=== PATIENT | male | born 1955 | race Caucasian/White ===

== ENCOUNTER 2018-07-26 06:52 | Day surgery (SDC) | payer MEDICARE ==
[2018-07-24 11:49] VITALS: BMI 32.3
[~2018-07-26 06:52] MED LIST: LACTATED RINGERS 1,000 ML IV SCH
[2018-07-26 07:30] VITALS: TEMP 98.4
[2018-07-26 07:34] LABS: Glucose,Whole Blood 122 mg/dL (75-99)
[2018-07-26] MEDS ORDERED: PROPOFOL 10 MG/ML 20 ML VIAL IV ONE (07:48)
[2018-07-26 08:20] VITALS: RESP 18
--- NOTE | 2018-07-26 08:29 | P.PCN ---
Date of Procedure: 07/26/18 Procedure(s) Performed: procedure: Colonoscopy and polypectomy. Preoperative diagnosis: Positive cologuard test. postoperative diagnosis: 1. Sigmoid diverticulosis with no evidence of acute diverticulitis or strictures. 2. Small polyps snared but no large polyps or cancer. 3. Low-grade internal hemorrhoids without bleeding at the time of this exam. Preparation: HalfLytely prep. Sedation: Was provided by anesthesia Brief clinical history: The patient is 63-year-old male who was scheduled for this evaluation because of positive cologuard test. The patient has no abdominal complaints, over to bleeding or anemia. His last colonoscopy was around 15 years ago. Procedure: With the patient on his left lateral decubitus position and after informed consent and adequate sedation, the perianal area was inspected and it did not show any fissures or fistulas. There were no masses felt on digital rectal examination. The Olympus CFQ 160L video colonoscope was then inserted in the rectum in the usual fashion and advanced to the cecum. There were a few diverticular orifices seen scattered in the sigmoid but I saw no evidence of acute diverticulitis or strictures. 2 small polyps were seen, one in the proximal right colon and one in the distal sigmoid which were snared and retrieved by suction but there were no large polyps or cancer. I retroflexed the endoscope in the rectum before the endoscope was withdrawn. Low-grade internal hemorrhoids were noted with no evidence of bleeding. The patient tolerated the procedure well. Plan: The patient was reassured. Discussed dietary measures and local care for hemorrhoids. In the absence of upper GI complaints or anemia, I did not schedule at this time an upper endoscopy for the workup of his Hemoccult positive stools and this can be left as a contingency based on his course. I recommended repeat colonoscopy in 5 years. He will follow up with you as planned.
[2018-07-26 08:53] VITALS: BP 145/83; PULSE 68
== END 2018-07-26 09:21 | disposition home or self-care (01) ==
LOC: ORWHC2ENDO 06:52
DX: Z12.11 Encounter for screening for malignant neoplasm of colon (principal); K63.5 Polyp of colon; K57.30 Diverticulosis of large intestine without perforation or abscess without bleeding; K64.8 Other hemorrhoids; J45.909 Unspecified asthma, uncomplicated; I10 Essential (primary) hypertension; E11.9 Type 2 diabetes mellitus without complications; E78.5 Hyperlipidemia, unspecified; Z79.899 Other long term (current) drug therapy; Z79.891 Long term (current) use of opiate analgesic; Z79.84 Long term (current) use of oral hypoglycemic drugs; Z79.1 Long term (current) use of non-steroidal anti-inflammatories (NSAID); Z79.51 Long term (current) use of inhaled steroids
CPT/HCPCS: 88305; 45385; J2704

== ENCOUNTER 2019-01-13 01:54 | Emergency (ER) | payer MEDICARE ==
[2019-01-13 02:07] VITALS: RESP 20
[2019-01-13 02:19] LABS: Glucose,Whole Blood 341 mg/dL (75-99)
[2019-01-13] MEDS ORDERED: SODIUM CHLORIDE 0.9% 1,000 ML IV STA (02:58)
[2019-01-13 03:22] LABS: Appearance,Urine Clear (Clear); Bilirubin,Urine Negative (Negative); Blood,Urine Negative (Negative); Color,Urine Light Yellow; Glucose,Urine (UA) 4+ (Negative); Ketones,Urine Negative (Negative); Leukocyte Esterase,Urine Negative (Negative); Nitrite,Urine Negative (Negative); PH, Urine 5.5 (5.0-8.0); Protein,Urine Trace (Negative); Specific Gravity,Urine 1.028 (1.001-1.035); Urobilinogen,Urine <2.0 mg/dL (<2.0)
[2019-01-13 03:31] LABS: HCT 41.3 % (39.0-53.0); HGB 13.7 gm/dL (13.0-17.5); MCHC 33.2 g/dL (31.0-37.0); MCV 90.6 fL (80.0-100.0); Mean Platelet Volume 6.8; Platelet Count 160 k/uL (150-450); RBC 4.56 m/uL (4.30-5.90); RDW 13.2 % (11.5-15.5); WBC 6.4 k/uL (3.8-10.6)
--- NOTE | 2019-01-13 03:31 | ED ---
General Adult HPI - General Chief complaint: Recheck/Abnormal Lab/Rx Stated complaint: hyperglycemia Time Seen by Provider: 01/13/19 02:10 Source: EMS Mode of arrival: EMS Limitations: altered mental status - History of Present Illness Initial comments: Willie a 63-year-old gentleman with diabetes severe diabetic neuropathy who presents to the emergency department today for evaluation of generalized weakness and patient and his report that they had both taken her nighttime medications including his tramadol and Ambien, patient then decided that he needed to use the restroom. reports that she had just washed the rugs from the bathroom so she had left towel on the floor but noted that it was wet when he attended walking to the bathroom he lost his balance and fell forward onto his hands and feet. He did not hit his head he did not lose consciousness however she was not strong enough to get him back up so she called EMS or [facility]. [facility] reports that the patient was awake alert oriented with no signs of trauma however he had generalized weakness they did check his glucose and noted that it was over 400 and encouraged him to come to the ER for evaluation. Patient also notes that he's had a rash on the right side of his chest for a couple of weeks he thought it was due to by any sure that he may be ALLERGIC to however he does note that the rash is only on the right side of his chest and wrapping around to the right side of his back. - Related Data Home Medications Medication Instructions Recorded Confirmed Atorvastatin [Lipitor] 20 mg PO HS 07/24/18 07/26/18 Benazepril HCl [Lotensin] 40 mg PO HS 07/24/18 07/26/18 Fenofibrate 50 mg PO BID 07/24/18 07/26/18 Fluticasone/Salmeterol [Advair 1 inhalation PO BID PRN 07/24/18 07/26/18 250-50 Diskus] Ibuprofen 800 mg PO DAILY 07/24/18 07/26/18 Metoprolol Tartrate [Lopressor] 50 mg PO BID 07/24/18 07/26/18 amLODIPine [Norvasc] 10 mg PO DAILY 07/24/18 07/26/18 glipiZIDE [Glucotrol] 5 mg PO AC-BRKFST 07/24/18 07/26/18 metFORMIN HCL [Glucophage] 500 mg PO BID 07/24/18 07/26/18 traMADol HCL [Ultram] 50 mg PO DIRECTED PRN 07/24/18 07/26/18 Allergies Allergy/AdvReac Type Severity Reaction Status Date / Time Penicillins Allergy Unknown Verified 01/13/19 02:07 Review of Systems ROS Statement: Those systems with pertinent positive or pertinent negative responses have been documented in the HPI. ROS Other: All systems not noted in ROS Statement are negative. Past Medical History Past Medical History: Asthma, Diabetes Mellitus, Osteoarthritis (OA) Additional Past Medical History / Comment(s): HX OF BACK SURGERY WITH BACK PAIN, DIABETIC NEUROPATHY, HEART MURMUR., KERATOCONUS., STOOL TEST POSITIVE ., ECZEMA. History of Any Multi-Drug Resistant Organisms: None Reported Past Surgical History: Back Surgery Additional Past Surgical History / Comment(s): BACK SURGERY WITH DISC REMOVED AND FUSION., VASECTOMY, LEFT GREAT TOE. Past Anesthesia/Blood Transfusion Reactions: No Reported Reaction Past Psychological History: No Psychological Hx Reported Smoking Status: Former smoker Past Alcohol Use History: None Reported Past Drug Use History: None Reported - Past Family History Mother Family Medical History: No Reported History General Exam - General Exam Comments Initial Comments: Physical Exam GENERAL: Patient is well-developed and well-nourished. Patient is nontoxic and well-hydrated and is in no distress. Patient appears sleepy HENT: Normocephalic, Atraumatic. EYES: PERRL, EOMI PULMONARY: Unlabored respirations. No audible rales rhonchi or wheezing was noted. CARDIOVASCULAR: There is a regular rate and rhythm without any murmurs gallops or rubs. ABDOMEN: Soft and nontender with normal bowel sounds. SKIN: Rash on the right chest wrapping around to the right back in a dermatome pattern concerning for shingles. There are lesions in multiple stages of healing as well as open vesicles. : Deferred NEUROLOGIC: Patient is alert and oriented x3. Moving all extremities spontaneously MUSCULOSKELETAL: Normal extremities with adequate strength and full range of motion. No lower extremity swelling or edema. No calf tenderness. PSYCHIATRIC: Normal psychiatric evaluation. Limitations: no limitations Limitations: altered mental status Course Vital Signs 01/13/19 01/13/19 02:01 04:30 Temperature 98.2 F Pulse Rate 109 H 101 H Respiratory 20 20 Rate Blood Pressure 137/81 158/89 O2 Sat by Pulse 96 98 Oximetry EKG Findings - EKG Comments: EKG Findings:: EKG was obtained at 2:12 AM, rate is 107 rhythm is sinus tachycardia normal axis, normal interval, [place] 190, QRS 96 QTc 461 d elevations or depressions no evidence of acute ischemia or infarction Medical Decision Making - Medical Decision Making The patient was seen and evaluated history is obtained from the patient at bedside Patient had a mechanical trip and fall in the bathroom was unable to get up EMS found that the patient was hyperglycemic and encouraged him to come to the ER for evaluation Upon initial evaluation patient was mildly hyperglycemic he did receive IV fluids his glucose was improving Labs are otherwise patient's baseline is concerned that she will be able to get patient up the 2 stairs back into the house however patient was able to ambulate around the emergency department without difficulty I discussed with the that I can attempt to admit him for generalized weakness and poorly controlled diabetes however he will just be in our observation unit weekly for the day, at this time the patient would prefer to be discharged home is agreeable. Patient was able to get out of bed and get himself dressed without assistance. He is then placed in a wheelchair and wheeled to the waiting room, patient stated that he was starting to feel like his sugars were getting low despite not getting any treatment for his hyperglycemia and he chose to take 2 glucose tablets without sugar. I suspect that's the patient's generalized weakness and dehydration is due to his chronic hyperglycemia and poorly controlled diabetes. - Lab Data Result diagrams: 01/13/19 03:05 01/13/19 03:05 Lab Results 01/13/19 01/13/19 01/13/19 Range/Units 02:15 03:05 03:05 WBC 6.4 (3.8-10.6) k/uL RBC 4.56 (4.30-5.90) m/uL Hgb 13.7 (13.0-17.5) gm/dL Hct 41.3 (39.0-53.0) % MCV 90.6 (80.0-100.0) fL MCH 30.0 (25.0-35.0) pg MCHC 33.2 (31.0-37.0) g/dL RDW 13.2 (11.5-15.5) % Plt Count 160 (150-450) k/uL Neutrophils % (Manual) 62 % Lymphocytes % (Manual) 23 % Monocytes % (Manual) 15 % Neutrophils # (Manual) 3.97 (1.3-7.7) k/uL Lymphocytes # (Manual) 1.47 (1.0-4.8) k/uL Monocytes # (Manual) 0.96 (0-1.0) k/uL Nucleated RBCs 0 (0-0) /100 WBC Manual Slide Review Performed Reactive Lymphocytes Present Sodium 137 (137-145) mmol/L Potassium 4.0 (3.5-5.1) mmol/L Chloride 106 (98-107) mmol/L Carbon Dioxide 20 L (22-30) mmol/L Anion Gap 11 mmol/L BUN 25 H (9-20) mg/dL Creatinine 1.00 (0.66-1.25) mg/dL Est GFR (CKD-EPI)AfAm >90 (>60 ml/min/1.73 sqM) Est GFR (CKD-EPI)NonAf 79 (>60 ml/min/1.73 sqM) Glucose 297 H (74-99) mg/dL POC Glucose (mg/dL) 341 H (75-99) mg/dL POC Glu Sod Cutter ID Kiara Hallman Calcium 9.4 (8.4-10.2) mg/dL Total Bilirubin 0.7 (0.2-1.3) mg/dL AST 35 (17-59) U/L ALT 44 (21-72) U/L Alkaline Phosphatase 102 (38-126) U/L Total Protein 6.9 (6.3-8.2) g/dL Albumin 4.1 (3.5-5.0) g/dL Amylase 66 (30-110) U/L Lipase 137 (23-300) U/L Urine Color Urine Appearance (Clear) Urine pH (5.0-8.0) Ur Specific [place] (1.001-1.035) Urine Protein (Negative) Urine Glucose (UA) (Negative) Urine Ketones (Negative) Urine Blood (Negative) Urine Nitrite (Negative) Urine Bilirubin (Negative) Urine Urobilinogen (<2.0) mg/dL Ur Leukocyte Esterase (Negative) Acetone, Qual Negative (Negative) 01/13/19 01/13/19 Range/Units 03:05 05:03 WBC (3.8-10.6) k/uL RBC (4.30-5.90) m/uL Hgb (13.0-17.5) gm/dL Hct (39.0-53.0) % MCV (80.0-100.0) fL MCH (25.0-35.0) pg MCHC (31.0-37.0) g/dL RDW (11.5-15.5) % Plt Count (150-450) k/uL Neutrophils % (Manual) % Lymphocytes % (Manual) % Monocytes % (Manual) % Neutrophils # (Manual) (1.3-7.7) k/uL Lymphocytes # (Manual) (1.0-4.8) k/uL Monocytes # (Manual) (0-1.0) k/uL Nucleated RBCs (0-0) /100 WBC Manual Slide Review Reactive Lymphocytes Sodium (137-145) mmol/L Potassium (3.5-5.1) mmol/L Chloride (98-107) mmol/L Carbon Dioxide (22-30) mmol/L Anion Gap mmol/L BUN (9-20) mg/dL Creatinine (0.66-1.25) mg/dL Est GFR (CKD-EPI)AfAm (>60 ml/min/1.73 sqM) Est GFR (CKD-EPI)NonAf (>60 ml/min/1.73 sqM) Glucose (74-99) mg/dL POC Glucose (mg/dL) 312 H (75-99) mg/dL POC Glu Sod Cutter ID Preston, Liz Calcium (8.4-10.2) mg/dL Total Bilirubin (0.2-1.3) mg/dL AST (17-59) U/L ALT (21-72) U/L Alkaline Phosphatase (38-126) U/L Total Protein (6.3-8.2) g/dL Albumin (3.5-5.0) g/dL Amylase (30-110) U/L Lipase (23-300) U/L Urine Color Light Yellow Urine Appearance Clear (Clear) Urine pH 5.5 (5.0-8.0) Ur Specific [place] 1.028 (1.001-1.035) Urine Protein Trace H (Negative) Urine Glucose (UA) 4+ H (Negative) Urine Ketones Negative (Negative) Urine Blood Negative (Negative) Urine Nitrite Negative (Negative) Urine Bilirubin Negative (Negative) Urine Urobilinogen <2.0 (<2.0) mg/dL Ur Leukocyte Esterase Negative (Negative) Acetone, Qual (Negative) Disposition Clinical Impression: Hyperglycemia due to type 2 diabetes mellitus, Generalized weakness, Diabetic neuropathy, Fall at home Disposition: HOME SELF-CARE Condition: Stable Instructions (If sedation given, give patient instructions): Diabetic Peripheral Neuropathy (ED) Is patient prescribed a controlled substance at d/c from ED?: No Referrals: William Christine MD [Primary Care Provider] - 1-2 days
[2019-01-13 03:35] LABS: ALT 44 U/L (21-72); AST 35 U/L (17-59); Albumin 4.1 g/dL (3.5-5.0); Alkaline Phosphatase 102 U/L (38-126); Amylase 66 U/L (30-110); Anion Gap 11 mmol/L; Blood Urea Nitrogen 25 mg/dL (9-20); Calcium 9.4 mg/dL (8.4-10.2); Carbon Dioxide 20 mmol/L (22-30); Chloride 106 mmol/L (98-107); Glucose 297 mg/dL (74-99); Lipase 137 U/L (23-300); Sodium 137 mmol/L (137-145); Total Bilirubin 0.7 mg/dL (0.2-1.3); Total Protein 6.9 g/dL (6.3-8.2)
[2019-01-13 03:59] LABS: Lymphocytes # (M) 1.47 k/uL (1.0-4.8); Monocytes # (M) 0.96 k/uL (0-1.0); Neutrophils # (M) 3.97 k/uL (1.3-7.7); Neutrophils % (M) 62 %; Nucleated Red Blood Cells 0 /100 WBC (0-0); Reactive Lymphocytes Present; Total Cells Counted 100
[2019-01-13 05:09] LABS: Glucose,Whole Blood 312 mg/dL (75-99)
[2019-01-13 06:20] VITALS: BP 165/95; PULSE 73; TEMP 98.1
== END 2019-01-13 06:19 | disposition home or self-care (01) ==
LOC: EC 01:54
DX: E11.65 Type 2 diabetes mellitus with hyperglycemia (principal); E11.40 Type 2 diabetes mellitus with diabetic neuropathy, unspecified; R53.1 Weakness; R21 Rash and other nonspecific skin eruption; J45.909 Unspecified asthma, uncomplicated; M19.90 Unspecified osteoarthritis, unspecified site; Z87.891 Personal history of nicotine dependence; Z88.0 Allergy status to penicillin; Z79.1 Long term (current) use of non-steroidal anti-inflammatories (NSAID); Z79.84 Long term (current) use of oral hypoglycemic drugs; Z79.899 Other long term (current) drug therapy; Z98.1 Arthrodesis status; W01.0XXA Fall on same level from slipping, tripping and stumbling without subsequent striking against object, initial encounter; Y93.01 Activity, walking, marching and hiking; Y92.002 Bathroom of unspecified non-institutional (private) residence as the place of occurrence of the external cause
CPT/HCPCS: 36415; 80053; 81003; 82009; 82150; 83690; 85025; 93005; 96360; 96361; 99285

== ENCOUNTER 2022-08-12 23:58 | Inpatient (IN) | payer MEDICARE ==
[2022-08-13] MEDS ORDERED: NITROGLYCERIN SL TABS 0.4 MG TAB SUBLINGUAL PRN ×2 (00:08→02:50)
[2022-08-13] MEDS ORDERED: ASPIRIN 81 MG PO STA (00:08)
[2022-08-13] MEDS ORDERED: HEPARIN SODIUM 1,000 UN/ML (10ML VL) IV ONE ×2 (00:08→02:16)
[2022-08-13] MEDS ORDERED: MORPHINE SULFATE 4 MG/ML SYRINGE IV STA (00:12)
--- NOTE | 2022-08-13 00:12 | ED ---
Chest Pain HPI - General Stated Complaint: Difficulty Breathing Time Seen by Provider: 08/13/22 00:07 Source: patient, EMS Mode of arrival: EMS Limitations: altered mental status - History of Present Illness Initial Comments: This patient is a 67-year-old man who is brought by ambulance to have evaluation for shortness of breath. It is difficult to obtain history as the patient appears to be both severely dyspneic and may have some mild delirium. EMS reported that he had been having chest pains earlier then started to have shortness of breath. They report that on arrival the patient was severely dyspneic and could not give much other history. I am not able to get much history other than he is short of breath. Patient also was reportedly diaphoretic and cyanotic. By the time I saw the patient here he had been placed onto BiPAP. MD Complaint: chest pain, other (Dyspnea) -: unknown Consistency: constant Treatments Prior to Arrival: oxygen - Related Data Home Medications Medication Instructions Recorded Confirmed Metoprolol Tartrate [Lopressor] 50 mg PO BID 07/24/18 08/13/22 amLODIPine [Norvasc] 10 mg PO DAILY 07/24/18 08/13/22 glipiZIDE [Glucotrol] 5 mg PO AC-BRKFST 07/24/18 08/13/22 metFORMIN HCL [Glucophage] 500 mg PO BID 07/24/18 08/13/22 traMADol HCL [Ultram] 50 mg PO QID PRN 07/24/18 08/13/22 Atorvastatin [Lipitor] 40 mg PO DAILY 08/13/22 08/13/22 DULoxetine HCL [Cymbalta] 60 mg PO DAILY 08/13/22 08/13/22 Fenofibrate [Lofibra] 54 mg PO BID 08/13/22 08/13/22 traZODone HCL 100 mg PO HS 08/13/22 08/13/22 Allergies Allergy/AdvReac Type Severity Reaction Status Date / Time Penicillins Allergy Unknown Verified 08/13/22 14:15 Review of Systems ROS Statement: Those systems with pertinent positive or pertinent negative responses have been documented in the HPI. ROS Other: All systems not noted in ROS Statement are negative. Limitations: ROS unobtainable due to patients medical condition EKG Findings - EKG Results: EKG: interpreted by ERMKeely, sinus rhythm (Rate 68 bpm), normal axis - NE, Pacemaker, Normal: Myocardial infarction: inferior NE (acute or recent) Past Medical History Past Medical History: Asthma, Diabetes Mellitus, Osteoarthritis (OA) Additional Past Medical History / Comment(s): HX OF BACK SURGERY WITH BACK PAIN, DIABETIC NEUROPATHY, HEART MURMUR., KERATOCONUS., STOOL TEST POSITIVE ., ECZEMA. History of Any Multi-Drug Resistant Organisms: None Reported Past Surgical History: Back Surgery Additional Past Surgical History / Comment(s): BACK SURGERY WITH DISC REMOVED AND FUSION., VASECTOMY, LEFT GREAT TOE. Past Anesthesia/Blood Transfusion Reactions: No Reported Reaction Past Psychological History: No Psychological Hx Reported Past Alcohol Use History: None Reported Past Drug Use History: None Reported - Past Family History Mother Family Medical History: No Reported History General Exam Limitations: altered mental status General appearance: alert Head exam: Present: atraumatic, normocephalic Eye exam: Present: PERRL, EOMI. Absent: scleral icterus, conjunctival injection ENT exam: Present: mucous membranes dry Neck exam: Present: normal inspection, full ROM Respiratory exam: Present: respiratory distress (Tachypnea), rales, accessory muscle use. Absent: rhonchi, stridor, chest wall tenderness, decreased breath sounds Cardiovascular Exam: Present: regular rate, normal rhythm. Absent: systolic murmur, diastolic murmur, rubs, gallop GI/Abdominal exam: Present: soft. Absent: distended, tenderness, guarding, rebound, rigid, mass Extremities exam: Present: normal inspection, normal capillary refill. Absent: pedal edema, calf tenderness Back exam: Present: normal inspection Neurological exam: Present: alert. Absent: motor sensory deficit Skin exam: Present: intact, diaphoretic, mottled. Absent: rash Course Vital Signs 08/13/22 08/13/22 08/13/22 00:08 00:12 00:15 Pulse Rate 75 78 Respiratory 36 H 28 H Rate Blood Pressure 121/104 128/55 O2 Sat by Pulse 76 L 97 Oximetry Fraction of 100 70 Inspired Oxygen (FIO2) 08/13/22 08/13/22 00:23 00:40 Pulse Rate 71 Respiratory 32 H Rate Blood Pressure 122/66 O2 Sat by Pulse 96 Oximetry Fraction of 100 Inspired Oxygen (FIO2) - Reevaluation(s) Reevaluation #1: 11/12/22 00:10 I was given ECG showing ST elevation NE in the inferior leads with reciprocal changes lateral leads. Plastic Technician was activated. I have discussed case with Dr. Matthews who will see the patient. His treatment recommendations are incorporated. Procedures - Intubation Sedative: Etomidate Mg Given: 20 Paralytic: Succinylcholine Mg Given: 100 Laryngoscope: Veto Size: 3 ET Tube Size: 8 ET Tube Uncuffed: No Tube Secured Depth (cm): 22 Tube Secured Location: lips Tube Placement Confirmation: visualized tube passing through cords, equal breath sounds bilaterally, no breath sounds over epigastrium, confirmation by capnometry Patient Tolerated Procedure: well Intubation Complications: none Chest Pain MDM - MDM This patient is 67-year-old man brought by ambulance to have evaluation for severe dyspnea. We were not able to obtain actually any history due to the severe dyspnea and patient requiring BiPAP. The ECG on arrival shows acute ST elevation NE. The Plastic Technician was activated and Dr. Matthews saw the patient and was going to take him for heart cath procedure. The patient however still not stable in terms of his respiratory status. He did not appear to be able tolerate the procedure lying flat on BiPAP and therefore decision made to intubate patient. Please see the procedure note. Following intubation, patient taken directly to Plastic Technician. Case discussed with admitting physician and with vacuum tester cans. Critical Care Time Critical Care Time: Yes (35 minutes) Disposition Clinical Impression: STEMI (ST elevation myocardial infarction), Acute respiratory failure, Pulmonary edema, Acute kidney injury, Hyperglycemia Disposition: ADMITTED IP TO THIS HOSP Condition: Critical Is patient prescribed a controlled substance at d/c from ED?: No
[2022-08-13] MEDS ORDERED: VERAPAMIL SYRINGE (5 MG/10 ML) INTRAARTER ONE ×2 (00:16→01:16)
[2022-08-13 00:23] LABS: Basophils % (A) 0 %; Eosinophils % (A) 0 %; HCT 38.7 % (39.0-53.0); HGB 12.4 gm/dL (13.0-17.5); Hypochromasia Moderate; Lymphocytes # (A) 0.6 k/uL (1.0-4.8); Lymphocytes % (A) 4 %; MCH 30.8 pg (25.0-35.0); MCV 96.4 fL (80.0-100.0); Mean Platelet Volume 8.6; Monocytes # (A) 0.6 k/uL (0-1.0); Monocytes % (A) 4 %; Neutrophils # (A) 12.4 k/uL (1.3-7.7); Neutrophils % (A) 90 %; Platelet Count 369 k/uL (150-450); RBC 4.01 m/uL (4.30-5.90); RDW 13.4 % (11.5-15.5); WBC 13.8 k/uL (3.8-10.6)
--- NOTE | 2022-08-13 00:24 | XR ---
EXAMINATION TYPE: XR chest 1V portable DATE OF EXAM: 08/13/2022 COMPARISON: NONE HISTORY: Chest pain TECHNIQUE: Single view FINDINGS: There is pulmonary airspace edema which is worse on the right side. Heart is enlarged. Ther e are chest leads. No definite pleural effusion. IMPRESSION: Bilateral pulmonary edema which is much worse on the right side and could relate to RDS.
[2022-08-13] MEDS ORDERED: HEPARIN SODIUM 1,000 UN/ML (10ML VL) ONE ×2 (00:35→02:15)
[2022-08-13] MEDS ORDERED: VERAPAMIL 2.5 MG/ML 2 ML AMP ONE (00:38)
[2022-08-13 00:43] LABS: INR 1.1 (<1.2); Prothrombin Time 11.8 sec (9.0-12.0)
[2022-08-13 00:45] LABS: Partial Thromboplastin Time 21.8 sec (22.0-30.0)
--- NOTE | 2022-08-13 00:53 | P.CRDCN ---
History of Present Illness History of present illness: HISTORY OF PRESENTING ILLNESS Patient is a 63-year-old male with history of diabetic neuropathy, hypertension, hyperlipidemia, diabetes mellitus type 2, orthopedic issues who presents second allen to chest pain and shortness breath. Patient on examination tachypnic on BIPAP and appears be somewhat altered and some of history supplied by chart. Patient currently denying obvious chest pain and mainly states he started feeling short of breath. There was report however that this started with chest discomfort. He denies anything similar in the past. No history of prior CAD. Currently tachypnic and accessory muscle use. EKG shows sinus rhythm, minimal Q-wave lead 3, ST elevation inferiorly with reciprocal changes in the lateral leads, poor R-wave progression. Chest x-ray showing bilateral pulmonary edema somewhat worse on the right. Blood pressure on presentation and 121/104 and 76% on room air. His placed on BiPAP however not tolerating well and therefore decision was made by ER to intubate patient. REVIEW OF SYSTEMS At the time of my exam: CONSTITUTIONAL: Denies fever or chills. CARDIOVASCULAR: +chest pain, +shortness of breath, +orthopnea, no palpitations. RESPIRATORY: Denies cough. GASTROINTESTINAL: Denies abdominal pain, diarrhea, constipation, nausea or vomiting. MUSCULOSKELETAL: Denies myalgias. NEUROLOGIC: Denies numbness, tingling or weakness. ENDOCRINE: Denies fatigue, weight change, polydipsia or polyurina. GENITOURINARY: Denies burning, hematuria or urgency with micturation. HEMATOLOGIC: Denies history of anemia or bleeding. PHYSICAL EXAMINATION Vital signs reviewed. CONSTITUTIONAL: No apparent distress. HEENT: Head is normocephalic. Pupils are equal, round. Sclerae anicteric. Mucous membranes of the mouth are moist. No JVD. No carotid bruit. CHEST EXAMINATION: +Bilateral crackles HEART EXAMINATION: Regular rate and rhythm. S1, S2 heard. No murmurs, gallops or rub. ABDOMEN: Soft, nontender. Positive bowel sounds. EXTREMITIES: 2+ peripheral pulses, no lower extremity edema and no calf tenderness. NEUROLOGIC EXAMINATION: Patient is awake, alert and oriented x3. ASSESSMENT 1. Inferior STEMI 2. Acute on chronic respiratory failure related to heart failure 3. Acute on chronic heart failure, unclear systolic versus diastolic 4. Diabetes mellitus type 2 5. Hypertension PLAN Agree with intubation of patient as he currently is very active tachypnic with accessory muscle use. Discussed recommendations for heart catheterization and patient is agreeable. Check 2-D echo. Diuresis as able. Further recommendations to follow. Past Medical History Past Medical History: Asthma, Diabetes Mellitus, Osteoarthritis (OA) Additional Past Medical History / Comment(s): HX OF BACK SURGERY WITH BACK PAIN, DIABETIC NEUROPATHY, HEART MURMUR., KERATOCONUS., STOOL TEST POSITIVE ., ECZEMA. History of Any Multi-Drug Resistant Organisms: None Reported Past Surgical History: Back Surgery Additional Past Surgical History / Comment(s): BACK SURGERY WITH DISC REMOVED AND FUSION., VASECTOMY, LEFT GREAT TOE. Past Anesthesia/Blood Transfusion Reactions: No Reported Reaction Past Psychological History: No Psychological Hx Reported Past Alcohol Use History: None Reported Past Drug Use History: None Reported - Past Family History Mother Family Medical History: No Reported History Medications and Allergies Home Medications Medication Instructions Recorded Confirmed Type Atorvastatin [Lipitor] 20 mg PO HS 07/24/18 07/26/18 History Benazepril HCl [Lotensin] 40 mg PO HS 07/24/18 07/26/18 History Fenofibrate 50 mg PO BID 07/24/18 07/26/18 History Fluticasone Propion/Salmeterol 1 inhalation PO BID PRN 07/24/18 07/26/18 History [Advair 250-50 Diskus] Ibuprofen 800 mg PO DAILY 07/24/18 07/26/18 History Metoprolol Tartrate [Lopressor] 50 mg PO BID 07/24/18 07/26/18 History amLODIPine [Norvasc] 10 mg PO DAILY 07/24/18 07/26/18 History glipiZIDE [Glucotrol] 5 mg PO AC-BRKFST 07/24/18 07/26/18 History metFORMIN HCL [Glucophage] 500 mg PO BID 07/24/18 07/26/18 History traMADol HCL [Ultram] 50 mg PO DIRECTED PRN 07/24/18 07/26/18 History Allergies Allergy/AdvReac Type Severity Reaction Status Date / Time Penicillins Allergy Unknown Verified 01/13/19 02:07 Physical Exam Vitals: Vital Signs Pulse Resp BP Pulse Ox FiO2 08/13/22 00:23 71 32 H 122/66 96 08/13/22 00:15 70 08/13/22 00:12 78 28 H 128/55 97 100 08/13/22 00:11 100 08/13/22 00:08 75 36 H 121/104 76 L Intake and Output 08/12/22 08/12/22 08/13/22 14:59 22:59 06:59 Other: Weight 100.924 kg Results 08/13/22 00:11 CBC 08/13/22 Range/Units 00:11 WBC 13.8 H (3.8-10.6) k/uL RBC 4.01 L (4.30-5.90) m/uL Hgb 12.4 L (13.0-17.5) gm/dL Hct 38.7 L (39.0-53.0) % Plt Count 369 (150-450) k/uL Current Medications Generic Name Dose Route Start Last Admin Trade Name Freq PRN Reason Stop Dose Admin Nitroglycerin 0.4 mg 08/13/22 00:08 Nitroglycerin Sl Tabs 0.4 Mg Tab SUBLINGUAL Q5M PRN Chest Pain Intake and Output 08/12/22 08/12/22 08/13/22 14:59 22:59 06:59 Other: Weight 100.924 kg Patient Weight 08/13/22 06:59 Weight 100.924 kg 08/13/22 00:11
--- NOTE | 2022-08-13 01:00 | XR ---
EXAMINATION TYPE: XR chest 1V [facility] DATE OF EXAM: 08/13/2022 COMPARISON: Today HISTORY: Respiratory failure TECHNIQUE: Single view FINDINGS: There is endotracheal tube 2 cm from the patrick. There is nasogastric tube in the stomach. There is moderate pulmonary airspace edema. IMPRESSION: Tubing in good position. Pulmonary edema is more severe on the right side and slightly wo rse than exam 30 minutes ago.
[2022-08-13 01:07] LABS: Albumin 3.8 g/dL (3.5-5.0); Potassium 3.8 mmol/L (3.5-5.1); Total Bilirubin 1.1 mg/dL (0.2-1.3); Total Protein 6.5 g/dL (6.3-8.2)
[2022-08-13] MEDS ORDERED: fentaNYL (PF) 50 MCG/ML 2 ML AMP ONE ×2 (01:08→01:41)
[2022-08-13] MEDS ORDERED: LIDOCAINE 1% INJ 10MG/ML (30 ML VIAL-PF) SQ ONE (01:10)
[2022-08-13] MEDS ORDERED: IV FLUID CONTINUATION 1,000 ML IV ONE (01:10)
[2022-08-13] MEDS ORDERED: MIDAZOLAM 2 MG/2 ML VIAL IV ONE (01:10)
[2022-08-13] MEDS: fentaNYL (PF) 50 MCG/ML 2 ML AMP IV ONE ×2 (01:10→01:24)
[2022-08-13] MEDS ORDERED: FUROSEMIDE 10 MG/ML 4 ML VIAL ONE (01:10)
[2022-08-13] MEDS ORDERED: FUROSEMIDE 10 MG/ML 4 ML VIAL IV ONE ×2 (01:10→01:12)
[2022-08-13] MEDS: HEPARIN SODIUM 1,000 UN/ML (10ML VL) IV ONE ×4 (01:18→02:01)
[2022-08-13] MEDS: MIDAZOLAM 2 MG/2 ML VIAL IV ONE ×2 (01:18→01:35)
[2022-08-13] MEDS ORDERED: TIROFIBAN 12.5MG-250ML NS 250 ML IV ONE (01:22)
[2022-08-13] MEDS ORDERED: fentaNYL (PF) 50 MCG/ML 2 ML AMP IV ONE (01:41)
[2022-08-13] MEDS ORDERED: IOPAMIDOL-370 125ML BTL INJ ONE (01:42)
[2022-08-13] MEDS ORDERED: TICAGRELOR 90 MG TAB ONE (01:42)
[2022-08-13] MEDS ORDERED: NALOXONE 0.4 MG/ML 1 ML VIAL IV PRN (01:43)
[2022-08-13] MEDS ORDERED: TICAGRELOR 90 MG TAB OG-TUBE ONE (02:00)
[2022-08-13] MEDS ORDERED: niCARdipine 25 MG/10 ML VIAL ONE (02:01)
[2022-08-13] MEDS ORDERED: INSULIN ASPART (NovoLOG) 100 UNIT/ML VIAL SQ STA (02:15)
[2022-08-13 02:26] LABS: ABG Base Excess -12.2 mmol/L; ABG HCO3 15 mmol/L (21-25); ABG Oxygen Saturation 82.9 % (94-97); ABG PCO2 37 mmHg (35-45); ABG PH 7.23 (7.35-7.45); ABG TCO2 17 mmol/L (19-24); Allen Test Performed? Yes
[2022-08-13] MEDS ORDERED: IOPAMIDOL-370 100ML BTL INJ ONE (02:31)
[2022-08-13] MEDS ORDERED: HEPARIN SOD,PORK IN 0.45% NACL 25,000 UNIT in 0.45% NACL 1 250ML.BAG IV ONE (02:34)
[2022-08-13] MEDS ORDERED: ZOLPIDEM 5 MG TAB PO PRN (02:50)
[2022-08-13] MEDS ORDERED: MAG HYDROX/AL HYDROX/SIMETH 30 ML CUP PO PRN (02:50)
[2022-08-13] MEDS ORDERED: ATROPINE SULFATE 0.1 MG/ML 10ML SYRINGE IV PRN (02:50)
[2022-08-13] MEDS ORDERED: RX INFO: IV CONTRAST WAS GIVEN 1 EACH MISC MISCELLANE PRN (02:50)
--- NOTE | 2022-08-13 02:50 | P.PRCINT ---
Percutaneous Coronary Int. - Percutaneous Coronary Intervention Percutaneous Coronary Intervention: PROCEDURES PERFORMED: Left heart catheterization, bilateral coronary angiography, aspiration thrombectomy with Penumbra, PCI mid RCA with 3.0 x 38mm Xience SHAHBAZ, post dilated with a 3.5NC balloon, balloon angioplasty PDA with 2.5 balloon, IVUS INDICATION: Inferior STEMI HISTORY: Patient is pleasant 67-year-old male with history of diabetes mellitus who presented with chest pain and shortness breath and was found to have inferior STEMI. He did have increased work of breathing and therefore underwent intubation in the ER. CONSENT:I have discussed the risks, benefits and alternative therapies for the above-mentioned procedure and for both sedation/analgesia as well as necessary blood product administration, if indicated, as they pertain to this patient. The patient has indicated understanding and acceptance of the risks and procedures discussed. PROCEDURE: After the risks, benefits and alternatives of the above mentioned procedure explained in detail with the patient, informed consent was obtained. Patient was taken to the catheterization lab and prepped and draped in usual fashion. 1% lidocaine was used to anesthetize the right radial artery. A 6- Mexican sheath was placed in the right radial artery using modified Seldinger technique. Left coronary angiography was performed with a 5-Mexican JL 3.5 catheter. The decision was made to perform PCI of the RCA. A 6-Mexican AL 0.75 guide was used to engage RCA. A 0.014 whisper wire was advanced into the PDA. Predilation was performed with a 2.5 then 3.0 balloon. There was large amount of thrombus burden and therefore Penumbra aspiration thrombectomy was performed. IVUS showed diffuse more mid to distal disease and therefore a 3.0 x 38mm Xience SHAHBAZ was placed in the mid to distal RCA. There was still no reflow of the mid PDA which appeared related to thrombus. IV Aggrastat was started. Intracoronary Nicardipine was given for no reflow. The proximal portion of the stent was post dilated with a 3.5 NC balloon. There was still no reflow of the proximal PDA which appeared related to thrombus and therefore gentle inflations were performed with 2.5 balloon. Repeat IVUS showed well expanded stent, well sized, no dissection and IVUS brought down to proximal PDA with what appeared to be thrombus. Lab results were obtained with CKD and decision was made to abort further attempts at PCI distal PDA given further risk of RASHMI. The wire was pulled and final angiograms were performed. Preintervention there was 100% stenosis and ROSALIO 0 flow. Post intervention there was <10% stenosis with ROSALIO 3 flow of RCA and no reflow of distal PDA. A 5-Mexican FR4 catheter was inserted into the left ventricle and pressure measurements were obtained. The right radial sheath was removed and a TR band was placed with hemostasis achieved. The patient tolerated the procedure well. Patient was transported back to the post catheterization holding area in stable condition. Conscious Sedation: Patient was monitored under the direct supervision of vision of myself for conscious sedation using Versed and fentanyl for a total duration of 75 minutes HEMODYNAMICS: Ao: 90/51 LV: 160/8, LVEDP 22mmHg. Peak to peak gradient of approximately 60mmHg SELECTIVE CORONARY ARTERIOGRAPHY: LEFT MAIN: The left main is a large caliber vessel which bifurcates into the LAD and circumflex. There is mild 10-20% left main stenosis. LEFT ANTERIOR DESCENDING CORONARY ARTERY: LAD is a large caliber vessel which wraps around to the apex. There is diffuse mild 10-30% stenosis. LEFT CIRCUMFLEX CORONARY ARTERY: Left circumflex is a moderate caliber vessel with mild luminal irregularities. RIGHT CORONARY ARTERY: The right coronary artery is a large caliber vessel which gives off a PDA and PLV branch and is the dominant vessel. There is diffuse mild 10-20% stenosis. There is a mid RCA 100% stenosis with large amount of thrombus burden. FINAL IMPRESSION: 1. CAD as described above with 10-30% LAD stenosis, 100% mid RCA stenosis 2. S/p PCI mid RCA with 3.0 x 38mm Xience SHAHBAZ, post dilated with a 3.5NC balloon 3. Elevated left sided filling pressures 4. At least moderate to severe aortic stenosis with peak to peak gradient of 60mmHg PLAN: 1. Aggressive risk factor modification per most recent ACC/AHA guidelines. 2. Continue dual antiplatelets for 12 months with aspirin and Brillinta 3. Check 2D echo to evaluate degree of aortic stenosis
[2022-08-13] MEDS ORDERED: HEPARIN SODIUM 1,000 UN/ML (10ML VL) IV PRN (02:56)
[2022-08-13 02:59] LABS: Glucose,Whole Blood >600 mg/dL (70-110)
[2022-08-13 03:03] LABS: ABG PO2 53 mmHg (83-108)
[2022-08-13] MEDS ORDERED: INSULIN REGULAR BOLUS (FROM DRIP BAG) IV ONE (03:31)
[2022-08-13] MEDS ORDERED: Potassium Replacement Protocol 1 EACH MISC MISCELLANE PRN ×2 (03:31→16:39)
[2022-08-13] MEDS ORDERED: Magnesium Replacement Protocol 1 EACH MISC MISCELLANE PRN (03:31)
[2022-08-13] MEDS: HEPARIN SOD,PORK IN 0.45% NACL 25,000 UNIT in 0.45% NACL 1 250ML.BAG IV SCH (03:41)
[2022-08-13 03:47] LABS: Appearance,Urine Cloudy (Clear); Bilirubin,Urine Negative (Negative); Blood,Urine Negative (Negative); Cellular Casts,Urine 5 /lpf (0); Color,Urine Yellow; Glucose,Urine (UA) 4+ (Negative); Hyaline Casts,Urine 12 /lpf (0-2); Ketones,Urine Trace (Negative); Leukocyte Esterase,Urine Negative (Negative); Nitrite,Urine Negative (Negative); Protein,Urine Trace (Negative); RBC,Urine <1 /hpf (0-5); Specific Gravity,Urine 1.025 (1.001-1.035); Urobilinogen,Urine <2.0 mg/dL (<2.0); WBC,Urine 6 /hpf (0-5)
[2022-08-13] MEDS: INSULIN REGULAR 100 UNIT in SODIUM CHLORIDE 0.9% 100 ML IV SCH ×2 (03:52→10:13)
[2022-08-13 03:54] LABS: Basophils % (A) 0 %; Eosinophils % (A) 0 %; HCT 35.5 % (39.0-53.0); HGB 11.2 gm/dL (13.0-17.5); Hypochromasia Marked; Lymphocytes # (A) 0.5 k/uL (1.0-4.8); Lymphocytes % (A) 4 %; MCH 31.1 pg (25.0-35.0); MCHC 31.6 g/dL (31.0-37.0); MCV 98.6 fL (80.0-100.0); Mean Platelet Volume 7.8; Monocytes # (A) 0.5 k/uL (0-1.0); Monocytes % (A) 4 %; Neutrophils # (A) 11.7 k/uL (1.3-7.7); Neutrophils % (A) 91 %; Platelet Count 356 k/uL (150-450); RDW 13.1 % (11.5-15.5); WBC 12.9 k/uL (3.8-10.6)
[2022-08-13] MEDS ORDERED: TIROFIBAN 12.5MG-250ML NS 250 ML IV SCH (04:00)
[2022-08-13] MEDS ORDERED: ACETAMINOPHEN SUPPOSITORY 650 MG SUPP RECTAL PRN (04:00)
--- NOTE | 2022-08-13 04:13 | XR ---
EXAMINATION TYPE: XR chest 1V DATE OF EXAM: 08/13/2022 COMPARISON: Today HISTORY: Tube placement TECHNIQUE: Single view FINDINGS: Endotracheal tube is 3 cm from the patrick. There is bilateral pulmonary airspace edema that is much worse on the right side. Nasogastric tube is in the stomach. There are chest leads. IMPRESSION: Pulmonary edema. Could be RDS and not significantly different than exam 3 hours ago.
--- NOTE | 2022-08-13 04:18 | P.HPIM ---
History of Present Illness H&P Date: 08/13/22 Chief Complaint: chest pain , difficulty breathing 67 year old male with DM, hypertension patient unable to provide any history . patient was brought in by EMS due to chest pain and trouble breathing, he was placed on BIpap upon arrival , however, he deteriorated quickly with worsening breathing effort and was intubated in the ED. 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 History of Any Multi-Drug Resistant Organisms: None Reported Past Surgical History: Back Surgery Additional Past Surgical History / Comment(s): BACK SURGERY WITH DISC REMOVED AND FUSION., VASECTOMY, LEFT GREAT TOE. Past Anesthesia/Blood Transfusion Reactions: No Reported Reaction Past Psychological History: No Psychological Hx Reported Past Alcohol Use History: None Reported Past Drug Use History: None Reported - Past Family History Mother Family Medical History: No Reported History, Unable to Obtain Medications and Allergies Home Medications Medication Instructions Recorded Confirmed Type Atorvastatin [Lipitor] 20 mg PO HS 07/24/18 07/26/18 History Benazepril HCl [Lotensin] 40 mg PO HS 07/24/18 07/26/18 History Fenofibrate 50 mg PO BID 07/24/18 07/26/18 History Fluticasone Propion/Salmeterol 1 inhalation PO BID PRN 07/24/18 07/26/18 History [Advair 250-50 Diskus] Ibuprofen 800 mg PO DAILY 07/24/18 07/26/18 History Metoprolol Tartrate [Lopressor] 50 mg PO BID 07/24/18 07/26/18 History amLODIPine [Norvasc] 10 mg PO DAILY 07/24/18 07/26/18 History glipiZIDE [Glucotrol] 5 mg PO AC-BRKFST 07/24/18 07/26/18 History metFORMIN HCL [Glucophage] 500 mg PO BID 07/24/18 07/26/18 History traMADol HCL [Ultram] 50 mg PO DIRECTED PRN 07/24/18 07/26/18 History Allergies Allergy/AdvReac Type Severity Reaction Status Date / Time Penicillins Allergy Unknown Verified 01/13/19 02:07 Physical Exam Vitals: Vital Signs Pulse Resp BP Pulse Ox FiO2 08/13/22 00:49 100 08/13/22 00:23 71 32 H 122/66 96 08/13/22 00:15 70 08/13/22 00:12 78 28 H 128/55 97 100 08/13/22 00:08 75 36 H 121/104 76 L Intake and Output 08/12/22 08/12/22 08/13/22 14:59 22:59 06:59 Other: Weight 100.924 kg Constitutional: intubated due to difficulty in breathing Eyes: Anicteric sclerae, moist conjunctiva, Pupils equal round reactive to light ENMT: NC/AT Neck: Supple, no masses, or JVD No carotid bruits No thyromegaly Lungs: diffuse crackles Clear to percussion intubated on mechanical vent Cardiovascular: Heart regular in rate and rhythm, No murmurs, gallops, or rubs No peripheral edema Abdominal: Soft Nontender, no guarding, rebound or rigidity Abdomen moving with respiration Normoactive bowel sounds No hepatomegaly, No splenomegaly No palpable mass No abdominal wall hernia noted Skin: Normal temperature, tone, texture, turgor Extremities: No digital cyanosis No clubbing Pedal pulses intact and symmetrical Radial pulses intact and symmetrical No calf tenderness Psychiatric: intubated on vent support Neuro unable to assess , patient intubated Lymphatics: no palpable cervical or supraclavicular lymph nodes Results CBC & Chem 7: 08/13/22 03:46 08/13/22 00:11 Labs: Abnormal Lab Results - Last 24 Hours (Table) 08/13/22 08/13/22 Range/Units 00:11 00:11 WBC 13.8 H (3.8-10.6) k/uL RBC 4.01 L (4.30-5.90) m/uL Hgb 12.4 L (13.0-17.5) gm/dL Hct 38.7 L (39.0-53.0) % Neutrophils # 12.4 H (1.3-7.7) k/uL Lymphocytes # 0.6 L (1.0-4.8) k/uL APTT 21.8 L (22.0-30.0) sec Assessment and Plan Assessment: acute hypoxic respiratory failure STEMI , inferior suspected DKA (pending acetone ) patient will be taken to the concrete mixing 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
[2022-08-13 04:25] LABS: INR 1.2 (<1.2)
[2022-08-13 04:29] LABS: Partial Thromboplastin Time >200.0 sec (22.0-30.0)
[2022-08-13 04:56] LABS: Glucose,Whole Blood >600 mg/dL (70-110)
[2022-08-13] MEDS ORDERED: INSULIN ASPART (NovoLOG) 100 UNIT/ML VIAL SQ SCH (06:00)
[2022-08-13 06:05] LABS: ABG Base Excess -7.5 mmol/L; ABG HCO3 19 mmol/L (21-25); ABG Oxygen Saturation 97.3 % (94-97); ABG PCO2 39 mmHg (35-45); ABG PO2 102 mmHg (83-108); ABG TCO2 20 mmol/L (19-24); Allen Test Performed? Yes
[2022-08-13 06:05] LABS: Glucose,Whole Blood 510 mg/dL (70-110)
[2022-08-13 06:11] LABS: African American GFR (CKD) 34 (>60 ml/min/1.73 sqM); Anion Gap 20 mmol/L; Blood Urea Nitrogen 59 mg/dL (9-20); Calcium 8.5 mg/dL (8.4-10.2); Carbon Dioxide 12 mmol/L (22-30); Chloride 100 mmol/L (98-107); Magnesium 2.2 mg/dL (1.6-2.3); Non-African American GFR(CKD) 30 (>60 ml/min/1.73 sqM); Phosphorus 5.7 mg/dL (2.5-4.5); Potassium 4.1 mmol/L (3.5-5.1); Sodium 132 mmol/L (137-145)
[2022-08-13 06:19] LABS: Glucose 636 mg/dL (74-99)
[2022-08-13 07:02] LABS: Glucose,Whole Blood 452 mg/dL (70-110)
[2022-08-13] MEDS ORDERED: NOREPINEPHRIN 4 MG-0.9% NS PMX 4 MG/250 ML ML IV ONE (07:33)
[2022-08-13 07:56] LABS: Glucose,Whole Blood 374 mg/dL (70-110)
[2022-08-13] MEDS ORDERED: CISATRACURIUM 2 MG/ML 5 ML VIAL IV ONE (09:19)
[2022-08-13] MEDS: CLINDAMYCIN 600 MG in DEXTROSE 5% IN WATER 50 ML IVPB SCH ×6 (10:12→23:51)
[2022-08-13] MEDS: NOREPINEPHRINE 8 MG in SODIUM CHLORIDE 0.9% 250 ML IV SCH (10:13)
[2022-08-13] MEDS: CISATRACURIUM 200 MG in SODIUM CHLORIDE 0.9% 180 ML IV SCH (10:15)
[2022-08-13 10:20] LABS: Glucose,Whole Blood 225 mg/dL (70-110)
[2022-08-13 10:39] LABS: Potassium 3.1 mmol/L (3.5-5.1)
[2022-08-13] MEDS: ASPIRIN 81 MG PO SCH (10:39)
[2022-08-13] MEDS: TICAGRELOR 90 MG TAB PO SCH ×2 (10:39→20:29)
[2022-08-13] MEDS: FUROSEMIDE 10 MG/ML 4 ML VIAL IV SCH ×2 (10:39→17:38)
[2022-08-13] MEDS: CHLORHEXIDINE GLUCONATE 15 ML CUP MUCOUS MEM SCH ×2 (10:40→20:29)
[2022-08-13] MEDS: ARTIFICIAL TEARS-HYPROMELLOSE DROPS 15 ML BTL BOTH EYES SCH ×4 (10:41→23:51)
[2022-08-13 11:01] LABS: Glucose,Whole Blood 177 mg/dL (70-110)
--- NOTE | 2022-08-13 11:16 | P.PN ---
Subjective Progress Note Date: 08/13/22 (delayed charting seen at 0800) Patient is a 63-year-old male with history of diabetes mellitus type 2, azg-icmtmet-hbeoftutw with neuropathy, asthma, and osteoarthritis who presented to the emergency department with chest pain and shortness of breath. In the ER he underwent an extensive evaluation. He required BiPAP secondary to tachypnea. An EKG was obtained in the emergency department which shows ST segment elevation inferior with reciprocal changes and poor R-wave progression. Patient needed to have worsening respiratory distress and required intubation in the ER. He was emergently taken to laboratory secretary and had PCI performed to the RCA. He did not have return of flow to the PDA despite thrombectomy and cardiology recommended an additional 12 hours of Aggrastat and heparin for 24. He was found to have diffuse edema on his chest x-ray on vent settings are consistent with ARDS. Initial laboratory analysis also demonstrated hyperglycemia with a blood sugar of 636, patient was acetone positive and therefore diagnosed with DKA. Due to his vent settings and diffuse pulmonary edema he was started on an insulin drip but was not provided with fluid resuscitation as was requiring a PEEP of 14 and an FiO2 of 100% on the vent. Patient seen and examined at bedside. He is sedated on the vent and is unresponsive. Overnight events as above. General: :, no distress, appears at stated age Derm: warm, dry Head: atraumatic, normocephalic, symmetric Eyes: PERRL, no lid lesion anicteric sclera Mouth: no lip lesion, mucus membranes moist Cardiovascular: S1S2 irreg, no murmur, positive posterior tibial pulse bilateral, Lungs: Course bs bilateral, no rhonchi, no rales , no accessory muscle use Abdominal: soft, nontender to palpation, no guarding, no appreciable organomeg daria Ext: no gross muscle atrophy, no edema, no contractures Neuro: breathing over vent, + cough, PERRL Psych: sedated on vent Assessment/plan: Acute inferior ST segment elevated myocardial infarction Moderate to severe aortic stenosis Cardiogenic shock ARDS with diffuse pulmonary edema likely secondary to cardiogenic shock -Cardiology recommendations. Continue with aspirin, Brillenta, Lipitor Aggrastat for 12 hours and heparin for 24 hours - await echo - continue wtih levo, wean as able - await pulm recs DKA, diabetes mellitus type 2 with neuropathy -Continue with insulin infusion -IV fluids currently contraindicated secondary to vent settings with a PEEP of 14 and FiO2 of 100% -Continue with DKA protocol. Discussed with nursing monitoring closely with insulin drip as typically we use IV fluids help bring the patient's blood sugar down and the insulin drip to help correct acidosis. - hold metformin and gluctrol Chronic: Asthma OA Eczema DVT prophylaxis: heparin gtt Discussed with: nursing Anticipated discharge: pending clinical course Anticipated discharge place: pending clinical course A total of 45 minutes was spent on the care of this complex patient more than 50% of the time was spent in counseling and care coordination. Objective - Vital Signs Vital signs: Vital Signs Temp 96.1 F L 08/13/22 05:00 Pulse 76 08/13/22 07:10 Resp 23 08/13/22 07:10 BP 86/55 08/13/22 07:10 Pulse Ox 97 08/13/22 07:10 FiO2 80 08/13/22 08:00 Intake & Output 08/12/22 08/13/22 08/13/22 18:59 06:59 18:59 Intake Total 1055.526 282.527 Output Total 507 88 Balance 548.526 194.527 Weight 101.5 kg Intake: IV 957 100 0.9 KVO 80 100 Intake, IV Titration 98.526 182.527 Amount Clindamycin 600 mg In 50 Dextrose 5% in Water 50 ml @ 50 mls/hr IVPB Q8HR JUANA Rx#:[id number] Heparin Sod,Pork in 0.45% 12.8 NaCl 25,000 unit In 0.45 % NaCl 1 250ml.bag @ 9.91 UNITS/KG/HR 10.002 mls/ hr IV .Q24H JUANA Rx#: [id number] Insulin Regular 100 unit 24.166 55.083 In Sodium Chloride 0.9% 100 ml @ 0.1 UNITS/KG/HR 10.193 mls/hr IV .Q9H55M JUANA Rx#:[id number] propofoL 1,000 mg In 61.560 77.444 Empty Bag 1 bag @ 30 MCG/ KG/MIN 18.27 mls/hr IV . Q5H29M JUANA Rx#:[id number] Output: Gastric Drainage 300 Urine 207 88 Other: Voiding Method Indwelling Catheter - Labs CBC & Chem 7: 08/13/22 03:46 08/13/22 10:10 Labs: Abnormal Lab Results - Last 24 Hours (Table) 08/13/22 08/13/22 08/13/22 Range/Units 00:11 00:11 00:11 WBC 13.8 H (3.8-10.6) k/uL RBC 4.01 L (4.30-5.90) m/uL Hgb 12.4 L (13.0-17.5) gm/dL Hct 38.7 L (39.0-53.0) % Neutrophils # 12.4 H (1.3-7.7) k/uL Lymphocytes # 0.6 L (1.0-4.8) k/uL PT (9.0-12.0) sec INR (<1.2) APTT 21.8 L (22.0-30.0) sec ABG pH (7.35-7.45) ABG pO2 (83-108) mmHg ABG HCO3 (21-25) mmol/L ABG Total CO2 (19-24) mmol/L ABG O2 Saturation (94-97) % Sodium 133 L (137-145) mmol/L Potassium (3.5-5.1) mmol/L Chloride 96 L (98-107) mmol/L Carbon Dioxide 13 L (22-30) mmol/L BUN 57 H (9-20) mg/dL Creatinine 1.97 H (0.66-1.25) mg/dL Glucose 635 H* (74-99) mg/dL POC Glucose (mg/dL) (70-110) mg/dL Phosphorus (2.5-4.5) mg/dL Alkaline Phosphatase 152 H (38-126) U/L Troponin I (0.000-0.034) ng/mL Urine Protein (Negative) Urine Glucose (UA) (Negative) Urine Ketones (Negative) Urine WBC (0-5) /hpf Hyaline Casts (0-2) /lpf 08/13/22 08/13/22 08/13/22 Range/Units 00:11 02:20 02:58 WBC (3.8-10.6) k/uL RBC (4.30-5.90) m/uL Hgb (13.0-17.5) gm/dL Hct (39.0-53.0) % Neutrophils # (1.3-7.7) k/uL Lymphocytes # (1.0-4.8) k/uL PT (9.0-12.0) sec INR (<1.2) APTT (22.0-30.0) sec ABG pH 7.23 L (7.35-7.45) ABG pO2 53 L* (83-108) mmHg ABG HCO3 15 L (21-25) mmol/L ABG Total CO2 17 L (19-24) mmol/L ABG O2 Saturation 82.9 L (94-97) % Sodium (137-145) mmol/L Potassium (3.5-5.1) mmol/L Chloride (98-107) mmol/L Carbon Dioxide (22-30) mmol/L BUN (9-20) mg/dL Creatinine (0.66-1.25) mg/dL Glucose (74-99) mg/dL POC Glucose (mg/dL) >600 H (70-110) mg/dL Phosphorus (2.5-4.5) mg/dL Alkaline Phosphatase (38-126) U/L Troponin I 3.390 H* (0.000-0.034) ng/mL Urine Protein (Negative) Urine Glucose (UA) (Negative) Urine Ketones (Negative) Urine WBC (0-5) /hpf Hyaline Casts (0-2) /lpf 08/13/22 08/13/22 08/13/22 Range/Units 03:21 03:46 03:46 WBC 12.9 H (3.8-10.6) k/uL RBC 3.60 L (4.30-5.90) m/uL Hgb 11.2 L (13.0-17.5) gm/dL Hct 35.5 L (39.0-53.0) % Neutrophils # 11.7 H (1.3-7.7) k/uL Lymphocytes # 0.5 L (1.0-4.8) k/uL PT 13.0 H (9.0-12.0) sec INR 1.2 H (<1.2) APTT >200.0 H* (22.0-30.0) sec ABG pH (7.35-7.45) ABG pO2 (83-108) mmHg ABG HCO3 (21-25) mmol/L ABG Total CO2 (19-24) mmol/L ABG O2 Saturation (94-97) % Sodium (137-145) mmol/L Potassium (3.5-5.1) mmol/L Chloride (98-107) mmol/L Carbon Dioxide (22-30) mmol/L BUN (9-20) mg/dL Creatinine (0.66-1.25) mg/dL Glucose (74-99) mg/dL POC Glucose (mg/dL) (70-110) mg/dL Phosphorus (2.5-4.5) mg/dL Alkaline Phosphatase (38-126) U/L Troponin I (0.000-0.034) ng/mL Urine Protein Trace H (Negative) Urine Glucose (UA) 4+ H (Negative) Urine Ketones Trace H (Negative) Urine WBC 6 H (0-5) /hpf Hyaline Casts 12 H (0-2) /lpf 08/13/22 08/13/22 08/13/22 Range/Units 03:46 04:54 05:51 WBC (3.8-10.6) k/uL RBC (4.30-5.90) m/uL Hgb (13.0-17.5) gm/dL Hct (39.0-53.0) % Neutrophils # (1.3-7.7) k/uL Lymphocytes # (1.0-4.8) k/uL PT (9.0-12.0) sec INR (<1.2) APTT (22.0-30.0) sec ABG pH 7.30 L (7.35-7.45) ABG pO2 (83-108) mmHg ABG HCO3 19 L (21-25) mmol/L ABG Total CO2 (19-24) mmol/L ABG O2 Saturation 97.3 H (94-97) % Sodium 132 L (137-145) mmol/L Potassium (3.5-5.1) mmol/L Chloride (98-107) mmol/L Carbon Dioxide 12 L (22-30) mmol/L BUN 59 H (9-20) mg/dL Creatinine 2.20 H (0.66-1.25) mg/dL Glucose 636 H* (74-99) mg/dL POC Glucose (mg/dL) >600 H (70-110) mg/dL Phosphorus 5.7 H (2.5-4.5) mg/dL Alkaline Phosphatase (38-126) U/L Troponin I (0.000-0.034) ng/mL Urine Protein (Negative) Urine Glucose (UA) (Negative) Urine Ketones (Negative) Urine WBC (0-5) /hpf Hyaline Casts (0-2) /lpf 08/13/22 08/13/22 08/13/22 Range/Units 06:03 07:00 07:55 WBC (3.8-10.6) k/uL RBC (4.30-5.90) m/uL Hgb (13.0-17.5) gm/dL Hct (39.0-53.0) % Neutrophils # (1.3-7.7) k/uL Lymphocytes # (1.0-4.8) k/uL PT (9.0-12.0) sec INR (<1.2) APTT (22.0-30.0) sec ABG pH (7.35-7.45) ABG pO2 (83-108) mmHg ABG HCO3 (21-25) mmol/L ABG Total CO2 (19-24) mmol/L ABG O2 Saturation (94-97) % Sodium (137-145) mmol/L Potassium (3.5-5.1) mmol/L Chloride (98-107) mmol/L Carbon Dioxide (22-30) mmol/L BUN (9-20) mg/dL Creatinine (0.66-1.25) mg/dL Glucose (74-99) mg/dL POC Glucose (mg/dL) 510 H 452 H 374 H (70-110) mg/dL Phosphorus (2.5-4.5) mg/dL Alkaline Phosphatase (38-126) U/L Troponin I (0.000-0.034) ng/mL Urine Protein (Negative) Urine Glucose (UA) (Negative) Urine Ketones (Negative) Urine WBC (0-5) /hpf Hyaline Casts (0-2) /lpf 08/13/22 08/13/22 08/13/22 Range/Units 10:06 10:10 10:10 WBC (3.8-10.6) k/uL RBC (4.30-5.90) m/uL Hgb (13.0-17.5) gm/dL Hct (39.0-53.0) % Neutrophils # (1.3-7.7) k/uL Lymphocytes # (1.0-4.8) k/uL PT (9.0-12.0) sec INR (<1.2) APTT (22.0-30.0) sec ABG pH (7.35-7.45) ABG pO2 (83-108) mmHg ABG HCO3 (21-25) mmol/L ABG Total CO2 (19-24) mmol/L ABG O2 Saturation (94-97) % Sodium (137-145) mmol/L Potassium 3.1 L (3.5-5.1) mmol/L Chloride (98-107) mmol/L Carbon Dioxide 21 L (22-30) mmol/L BUN 60 H (9-20) mg/dL Creatinine 2.38 H (0.66-1.25) mg/dL Glucose (74-99) mg/dL POC Glucose (mg/dL) 225 H (70-110) mg/dL Phosphorus 5.0 H (2.5-4.5) mg/dL Alkaline Phosphatase (38-126) U/L Troponin I (0.000-0.034) ng/mL Urine Protein (Negative) Urine Glucose (UA) (Negative) Urine Ketones (Negative) Urine WBC (0-5) /hpf Hyaline Casts (0-2) /lpf 08/13/22 Range/Units 10:59 WBC (3.8-10.6) k/uL RBC (4.30-5.90) m/uL Hgb (13.0-17.5) gm/dL Hct (39.0-53.0) % Neutrophils # (1.3-7.7) k/uL Lymphocytes # (1.0-4.8) k/uL PT (9.0-12.0) sec INR (<1.2) APTT (22.0-30.0) sec ABG pH (7.35-7.45) ABG pO2 (83-108) mmHg ABG HCO3 (21-25) mmol/L ABG Total CO2 (19-24) mmol/L ABG O2 Saturation (94-97) % Sodium (137-145) mmol/L Potassium (3.5-5.1) mmol/L Chloride (98-107) mmol/L Carbon Dioxide (22-30) mmol/L BUN (9-20) mg/dL Creatinine (0.66-1.25) mg/dL Glucose (74-99) mg/dL POC Glucose (mg/dL) 177 H (70-110) mg/dL Phosphorus (2.5-4.5) mg/dL Alkaline Phosphatase (38-126) U/L Troponin I (0.000-0.034) ng/mL Urine Protein (Negative) Urine Glucose (UA) (Negative) Urine Ketones (Negative) Urine WBC (0-5) /hpf Hyaline Casts (0-2) /lpf
[2022-08-13 11:23] LABS: ABG Base Excess -5.7 mmol/L; ABG HCO3 22 mmol/L (21-25); ABG Oxygen Saturation 98.3 % (94-97); ABG PCO2 51 mmHg (35-45); ABG PH 7.24 (7.35-7.45); ABG PO2 125 mmHg (83-108); ABG TCO2 23 mmol/L (19-24); Allen Test Performed? Yes
[2022-08-13 11:59] LABS: Glucose,Whole Blood 135 mg/dL (70-110)
--- NOTE | 2022-08-13 12:03 | OP ---
OPERATIVE REPORT PROCEDURE PERFORMED: Emergent placement of a left femoral triple-lumen catheter. PREOPERATIVE DIAGNOSES: Acute myocardial infarction, hypotension, the patient needed venous access, he is on norepinephrine. POSTOPERATIVE DIAGNOSES: Acute myocardial infarction, hypotension, the patient needed venous access, he is on norepinephrine. ANESTHESIA USED: 2 mL of 1% lidocaine. DESCRIPTION OF PROCEDURE: The patient was placed in a supine position, the area of the left groin was prepared in a sterile fashion and drapes were applied. The area was locally anesthetized with 2 mL of lidocaine. Then, the left femoral vein was easily cannulated, a guidewire was placed, the area around the guidewire was dilated, and a triple-lumen catheter was inserted over the guidewire and the guidewire was removed. Good blood flow noted in the 3 different ports of the triple-lumen catheter, line was secured using 3.0 silk sutures, no complications. MMODL / IJN: [id number] /
--- NOTE | 2022-08-13 12:09 | OP ---
OPERATIVE REPORT PROCEDURE PERFORMED: Placement of a left radial arterial line. This was done on emergency basis. PREOPERATIVE DIAGNOSES: Acute myocardial infarction, hypotension, the patient is on norepinephrine, needed hemodynamic monitoring. POSTOPERATIVE DIAGNOSES: Acute myocardial infarction, hypotension, the patient is on norepinephrine, needed hemodynamic monitoring. ANESTHESIA USED: None deployed. DESCRIPTION OF PROCEDURE: The left wrist was prepared in a sterile fashion and drapes were applied. The left radial artery was palpated, cannulated easily and a guidewire was placed. A catheter was inserted over the guidewire, and the guidewire was removed. Good blood flow, good waveform noted, no complications, line was secured using 3.0 silk sutures. MMODL / IJN: [id number] /
--- NOTE | 2022-08-13 12:12 | P.CNPUL ---
History of Present Illness Consult date: 08/13/22 Requesting physician: Malaika Gomez Reason for consult: dyspnea, chest pain Chief complaint: Shortness of breath and chest pain. History of present illness: This is a 67-year-old white male with history of problems including asthma, diabetes, degenerative joint disease, patient was brought into the ER yesterday with mostly sudden onset of shortness of breath and chest pain. Patient was in extreme respiratory distress upon arrival to the ER, he was placed on BiPAP initially, and he continued to have significant dyspnea. Patient was intubated by the ER physician, workup showed evidence of acute inferior ST elevation myocardial infarction. Patient was seen by cardiology on consultation, and he underwent cardiac catheterization and stenting of the RCA which was totally occluded. In the meantime the patient was noted to have extensive pulmonary edema, acute hypoxic respiratory failure secondary to pulmonary edema, underlying pneumonia is not entirely ruled out but felt to be less likely. Nonetheless the patient will be covered empirically with antibiotics for presumptive aspiration pneumonia since significant airspace disease is noted in the right lung compared to the left lung. I saw this patient this morning, patient is intubated and mechanically ventilated, he is on assist control rate of 20, FiO2 was 100% I cut it down to 80%, he had tidal volume of 500, PEEP was at 14. As soon as I evaluated the patient, clearly the patient was not synchronous with mechanical ventilation, hence I recommended increasing his propofol to 75 mcg/kg/m, patient continued to remain asynchronous with the ventilator, and he seems to be working quite hard at it. Then I recommended st arting the patient on Nimbex and start a Nimbex drip. ABG done later showed a pO2 of 125 pCO2 51 pH of 7.4, hence I increased the rate from 20-26. Another ABG is pending. Patient is requiring norepinephrine at 0.1 mcg/kg/m, he is also on insulin drip for what seems to be in DKA picture. His IV fluid at 20 mL per hour. Patient is now on Nimbex and on Lasix 40 mg IV push every 8 hours, and I added clindamycin empirically. Patient is ALLERGIC to penicillin. Patient had no good venous access when I arrived to see the patient this morning, hence on emergency basis I established a left femoral triple-lumen catheter, and a left radial arterial line. His echocardiogram showed ejection fraction of 40-45%. Patient is on Aggrastat, and he was on heparin earlier with a PTT over 200. Hence I recommended a groin access rather than having a neck or subclavian access after obtaining the ABG, I cut down his FiO2 down to 65%. Looking at the labs, apparently the patient sustained a acute kidney injury, BUN is 60 creatinine 2.38. His creatinine on admission was 1.97, I believe this is mostly related to hypoperfusion as well as related to his cardiac catheterization/contrast media. Review of Systems ROS unobtainable: due to endotracheal tube Past Medical History Past Medical History: Asthma, Diabetes Mellitus, Osteoarthritis (OA) Additional Past Medical History / Comment(s): HX OF BACK SURGERY WITH BACK PAIN, DIABETIC NEUROPATHY, HEART MURMUR., KERATOCONUS., STOOL TEST POSITIVE ., ECZEMA. History of Any Multi-Drug Resistant Organisms: None Reported Past Surgical History: Back Surgery Additional Past Surgical History / Comment(s): BACK SURGERY WITH DISC REMOVED AND FUSION 2008., VASECTOMY, LEFT GREAT TOE. Past Anesthesia/Blood Transfusion Reactions: No Reported Reaction Past Psychological History: No Psychological Hx Reported Smoking Status: Never smoker Past Alcohol Use History: None Reported Additional Past Alcohol Use History / Comment(s): QUIT SMOKING 1996. SMOKED CIGARS OCCASIONALLY Past Drug Use History: None Reported - Past Family History Mother Family Medical History: No Reported History, Unable to Obtain Medications and Allergies Home Medications Medication Instructions Recorded Confirmed Type Atorvastatin [Lipitor] 20 mg PO HS 07/24/18 07/26/18 History Benazepril HCl [Lotensin] 40 mg PO HS 07/24/18 07/26/18 History Fenofibrate 50 mg PO BID 07/24/18 07/26/18 History Fluticasone Propion/Salmeterol 1 inhalation PO BID PRN 07/24/18 07/26/18 History [Advair 250-50 Diskus] Ibuprofen 800 mg PO DAILY 07/24/18 07/26/18 History Metoprolol Tartrate [Lopressor] 50 mg PO BID 07/24/18 07/26/18 History amLODIPine [Norvasc] 10 mg PO DAILY 07/24/18 07/26/18 History glipiZIDE [Glucotrol] 5 mg PO AC-BRKFST 07/24/18 07/26/18 History metFORMIN HCL [Glucophage] 500 mg PO BID 07/24/18 07/26/18 History traMADol HCL [Ultram] 50 mg PO DIRECTED PRN 07/24/18 07/26/18 History Allergies Allergy/AdvReac Type Severity Reaction Status Date / Time Penicillins Allergy Unknown Verified 01/13/19 02:07 Physical Exam Vitals: Vital Signs Temp Pulse Pulse Resp BP BP Pulse Ox 08/13/22 11:00 94 20 95/56 100 08/13/22 10:00 79 0 L 93/58 99 08/13/22 09:00 64 25 H 110/56 98 08/13/22 08:00 97.7 F 61 26 H 76/53 98 08/13/22 07:10 76 23 86/55 97 08/13/22 07:00 75 24 86/55 97 08/13/22 06:50 75 24 86/55 97 08/13/22 06:40 76 24 87/55 97 08/13/22 06:30 70 24 84/56 97 08/13/22 06:20 75 25 H 84/56 97 08/13/22 06:10 69 26 H 86/57 96 08/13/22 06:00 60 26 H 85/47 95 08/13/22 05:50 74 25 H 85/47 97 08/13/22 05:40 75 24 87/59 95 08/13/22 05:30 63 24 89/55 97 08/13/22 05:20 63 26 H 89/55 95 08/13/22 05:10 64 27 H 86/54 95 08/13/22 05:00 96.1 F L 70 27 H 89/54 93 L 08/13/22 04:59 96.1 F L 64 20 86/54 95 08/13/22 04:50 64 26 H 89/54 93 L 08/13/22 04:40 64 26 H 85/54 94 L 08/13/22 04:30 65 26 H 84/53 95 08/13/22 04:20 70 26 H 84/53 95 08/13/22 04:10 66 26 H 89/56 96 08/13/22 04:00 84 42 H 86/62 94 L 08/13/22 03:50 78 26 H 86/62 93 L 08/13/22 03:40 67 28 H 84/63 95 08/13/22 03:30 63 27 H 102/90 92 L 08/13/22 03:21 61 102/90 08/13/22 03:20 68 26 H 102/90 91 L 08/13/22 03:10 66 33 H 110/56 85 L 08/13/22 03:06 55 L 101/52 08/13/22 03:00 52 L 28 H 08/13/22 02:59 24 08/13/22 02:51 63 112/55 08/13/22 00:40 08/13/22 00:23 71 32 H 122/66 96 08/13/22 00:15 08/13/22 00:12 78 28 H 128/55 97 08/13/22 00:08 75 36 H 121/104 76 L FiO2 08/13/22 11:00 08/13/22 10:00 08/13/22 09:00 08/13/22 08:00 100 08/13/22 07:10 08/13/22 07:00 08/13/22 06:50 08/13/22 06:40 08/13/22 06:30 08/13/22 06:20 08/13/22 06:10 08/13/22 06:00 08/13/22 05:50 08/13/22 05:40 08/13/22 05:30 08/13/22 05:20 08/13/22 05:10 08/13/22 05:00 08/13/22 04:59 100 08/13/22 04:50 08/13/22 04:40 08/13/22 04:30 08/13/22 04:20 08/13/22 04:10 08/13/22 04:00 100 08/13/22 03:50 08/13/22 03:40 100 08/13/22 03:30 08/13/22 03:21 08/13/22 03:20 08/13/22 03:10 08/13/22 03:06 08/13/22 03:00 08/13/22 02:59 08/13/22 02:51 08/13/22 00:40 100 08/13/22 00:23 08/13/22 00:15 70 08/13/22 00:12 100 08/13/22 00:08 Intake and Output 08/12/22 08/13/22 08/13/22 22:59 06:59 14:59 Intake Total 1055.526 282.527 Output Total 507 88 Balance 548.526 194.527 Intake: IV 957 100 0.9 KVO 80 100 Intake, IV Titration 98.526 182.527 Amount Clindamycin 600 mg In 50 Dextrose 5% in Water 50 ml @ 50 mls/hr IVPB Q8HR JUANA Rx#:[id number] Heparin Sod,Pork in 0.45% 12.8 0 NaCl 25,000 unit In 0.45 % NaCl 1 250ml.bag @ 9.91 UNITS/KG/HR 10.002 mls/ hr IV .Q24H JUANA Rx#: [id number] Insulin Regular 100 unit 24.166 55.083 In Sodium Chloride 0.9% 100 ml @ 0.1 UNITS/KG/HR 10.193 mls/hr IV .Q9H55M JUANA Rx#:[id number] propofoL 1,000 mg In 61.560 77.444 Empty Bag 1 bag @ 30 MCG/ KG/MIN 18.27 mls/hr IV . Q5H29M JUANA Rx#:[id number] Output: Gastric Drainage 300 Urine 207 88 Other: Voiding Method Indwelling Catheter Indwelling Catheter Weight 101.5 kg ABP, PAP, CO, CI - Last 8 Hours Arterial Blood Pressure 112/47 Arterial Blood Pressure 81/51 Physical Exam: Revealed a 67-year-old white male obese, intubated mechanically ventilated, sedated, patient is noted to be asynchronous with the ventilator. Head: Atraumatic, normocephalic, endotracheal tube and orogastric tube are intact. HEENT:[Neck is supple.] [No neck masses.] [No thyromegaly.] [No JVD.] Chest: [Crackles and rhonchi noted bilaterally. Cardiac Exam: Distant S1 and S2, no S3 gallop, no murmur. Abdomen: [Obese, Soft, nontender, no megaly, no rebound, no guarding, normal bowel sounds.] Extremities: [No clubbing, trace of bipedal edema. Diminished pulses bilaterally. Neurological Exam: Could not assess, patient is sedated and mechanically ventilated. Psychiatric: Could not assess, sedated and chemically ventilated. Skin: Evidence of fungal rash noted in the right groin area and over the abdominal wall in the periumbilical area. Results - Laboratory Findings CBC and BMP: 08/13/22 03:46 08/13/22 10:10 ABG ABG pH 7.24 (7.35-7.45) L 08/13/22 11:20 ABG pCO2 51 mmHg (35-45) H 08/13/22 11:20 ABG pO2 125 mmHg (83-108) H 08/13/22 11:20 ABG O2 Saturation 98.3 % (94-97) H 08/13/22 11:20 PT/INR, D-dimer PT 13.0 sec (9.0-12.0) H 08/13/22 03:46 INR 1.2 (<1.2) H 08/13/22 03:46 Abnormal lab findings: Abnormal Labs 08/13/22 08/13/22 08/13/22 00:11 00:11 00:11 WBC 13.8 H RBC 4.01 L Hgb 12.4 L Hct 38.7 L Neutrophils # 12.4 H Lymphocytes # 0.6 L PT INR APTT 21.8 L ABG pH ABG pCO2 ABG pO2 ABG HCO3 ABG Total CO2 ABG O2 Saturation Sodium 133 L Potassium Chloride 96 L Carbon Dioxide 13 L BUN 57 H Creatinine 1.97 H Glucose 635 H* POC Glucose (mg/dL) Phosphorus Alkaline Phosphatase 152 H Troponin I Urine Protein Urine Glucose (UA) Urine Ketones Urine WBC Hyaline Casts 08/13/22 08/13/22 08/13/22 00:11 02:20 02:58 WBC RBC Hgb Hct Neutrophils # Lymphocytes # PT INR APTT ABG pH 7.23 L ABG pCO2 ABG pO2 53 L* ABG HCO3 15 L ABG Total CO2 17 L ABG O2 Saturation 82.9 L Sodium Potassium Chloride Carbon Dioxide BUN Creatinine Glucose POC Glucose (mg/dL) >600 H Phosphorus Alkaline Phosphatase Troponin I 3.390 H* Urine Protein Urine Glucose (UA) Urine Ketones Urine WBC Hyaline Casts 08/13/22 08/13/22 08/13/22 03:21 03:46 03:46 WBC 12.9 H RBC 3.60 L Hgb 11.2 L Hct 35.5 L Neutrophils # 11.7 H Lymphocytes # 0.5 L PT 13.0 H INR 1.2 H APTT >200.0 H* ABG pH ABG pCO2 ABG pO2 ABG HCO3 ABG Total CO2 ABG O2 Saturation Sodium Potassium Chloride Carbon Dioxide BUN Creatinine Glucose POC Glucose (mg/dL) Phosphorus Alkaline Phosphatase Troponin I Urine Protein Trace H Urine Glucose (UA) 4+ H Urine Ketones Trace H Urine WBC 6 H Hyaline Casts 12 H 08/13/22 08/13/22 08/13/22 03:46 04:54 05:51 WBC RBC Hgb Hct Neutrophils # Lymphocytes # PT INR APTT ABG pH 7.30 L ABG pCO2 ABG pO2 ABG HCO3 19 L ABG Total CO2 ABG O2 Saturation 97.3 H Sodium 132 L Potassium Chloride Carbon Dioxide 12 L BUN 59 H Creatinine 2.20 H Glucose 636 H* POC Glucose (mg/dL) >600 H Phosphorus 5.7 H Alkaline Phosphatase Troponin I Urine Protein Urine Glucose (UA) Urine Ketones Urine WBC Hyaline Casts 08/13/22 08/13/22 08/13/22 06:03 07:00 07:55 WBC RBC Hgb Hct Neutrophils # Lymphocytes # PT INR APTT ABG pH ABG pCO2 ABG pO2 ABG HCO3 ABG Total CO2 ABG O2 Saturation Sodium Potassium Chloride Carbon Dioxide BUN Creatinine Glucose POC Glucose (mg/dL) 510 H 452 H 374 H Phosphorus Alkaline Phosphatase Troponin I Urine Protein Urine Glucose (UA) Urine Ketones Urine WBC Hyaline Casts 08/13/22 08/13/22 08/13/22 10:06 10:10 10:10 WBC RBC Hgb Hct Neutrophils # Lymphocytes # PT INR APTT ABG pH ABG pCO2 ABG pO2 ABG HCO3 ABG Total CO2 ABG O2 Saturation Sodium Potassium 3.1 L Chloride Carbon Dioxide 21 L BUN 60 H Creatinine 2.38 H Glucose POC Glucose (mg/dL) 225 H Phosphorus 5.0 H Alkaline Phosphatase Troponin I Urine Protein Urine Glucose (UA) Urine Ketones Urine WBC Hyaline Casts 08/13/22 08/13/22 10:59 11:20 WBC RBC Hgb Hct Neutrophils # Lymphocytes # PT INR APTT ABG pH 7.24 L ABG pCO2 51 H ABG pO2 125 H ABG HCO3 ABG Total CO2 ABG O2 Saturation 98.3 H Sodium Potassium Chloride Carbon Dioxide BUN Creatinine Glucose POC Glucose (mg/dL) 177 H Phosphorus Alkaline Phosphatase Troponin I Urine Protein Urine Glucose (UA) Urine Ketones Urine WBC Hyaline Casts - Diagnostic Findings Chest x-ray: image reviewed (As noted in HPI, the chest x-ray is consistent with pulmonary edema, however underlying pneumonia/aspiration pneumonia is not entirely ruled out.) Assessment and Plan Assessment: Impression: Acute hypoxic respiratory failure secondary to acute systolic congestive heart failure, pulmonary edema, secondary to ischemic cardiomyopathy and acute ST elevation myocardial infarction Status post cardiac catheterization and stenting of totally occluded RCA. Acute ischemic cardiomyopathy and LV dysfunction. Possible aspiration pneumonia as the patient will be covered empirically with clindamycin although clinically no history to suggest aspiration. Acute diabetic ketoacidosis. History of diabetes. Possibly type 1 diabetes Acute kidney injury, related to his cardiorenal picture and I suspect kidney injury from contrast media/cardiac catheterization History of asthma severity of which is unclear, but the patient is on albuterol and Advair on a regular basis at home Degenerative joint disease. Fungal dermatitis involving the groin mostly right groin. Recommendation: Continue ventilatory support. Patient is presently on assist control rate of 26, volume 500 FiO2 65% PEEP of 14, ABG is pending. Continue patient on propofol, and Nimbex was added because patient was still agitated and could not get synchronous with the ventilator in spite of relatively high dose of propofol. Continue diuretics. Lasix 40 mg IV push every 8 hours. Continue insulin drip. GI and DVT prophylaxis. Empiric antibiotics/clindamycin. Aspirin, statin, and Aggrastat. Start the nutritional support sometime later today or tomorrow./Enteral feeding. Patient is extremely ill, and prognosis is extremely guarded. Hemodynamic support/norepinephrine and titrate accordingly. Nephrology to see the patient on consultation for his acute kidney injury. Antifungal topical treatment for his rash in right groin. We will continue to follow. Critical care time is over 30 minutes not including the time spent on procedures Time with Patient: Greater than 30
[2022-08-13] MEDS ORDERED: POTASSIUM CHLORIDE ER 20 MEQ TAB.ER PO SCH (13:00)
[2022-08-13] MEDS ORDERED: CLOTRIMAZOLE 1% CREAM 30 GM TUBE TOPICAL SCH (13:15)
[2022-08-13 13:17] LABS: Glucose,Whole Blood 95 mg/dL (70-110)
[2022-08-13] MEDS: POTASSIUM BICARBONATE/CIT AC 20 MEQ TABLET.EFF PO SCH ×3 (13:36→14:58)
[2022-08-13] MEDS: NYSTATIN 100,000UNIT/GM CREAM 30 GM TUBE TOPICAL SCH ×2 (13:36→20:29)
[2022-08-13 13:51] LABS: Glucose,Whole Blood 88 mg/dL (70-110)
[2022-08-13] MEDS ORDERED: FUROSEMIDE 10 MG/ML 10 ML VIAL IV STA (14:13)
--- NOTE | 2022-08-13 14:23 | CA ---
Transthoracic Echo Report Name: Willie Mantilla Age: 67 Gender: M : 1955 Exam Date: 08/13/2022 10:42 Exam Location: [facility] Ht (in): 60 Wt (lb): 223 Ordering Physician: Manuel Matthews DO ([email or web address]) Attending/Referring Phys: [employer] Superintendent Danii Starkey RDCS Procedure CPT: Indications: re: LV function Cardiac Hx: Technical Quality: Technically difficult study Contrast 1: Lumason Total Dose (mL): 3 Contrast 2: Total Dose (mL): MEASUREMENTS (Male / Female) Normal Values 2D ECHO LV Diastolic Diameter PLAX 4.7 cm 4.2 - 5.9 / 3.9 - 5.3 cm LV Systolic Diameter PLAX 3.2 cm IVS Diastolic Thickness 1.3 cm 0.6 - 1.0 / 0.6 - 0.9 cm LVPW Diastolic Thickness 1.7 cm 0.6 - 1.0 / 0.6 - 0.9 cm LV Relative Wall Thickness 0.6 RV Internal Dim ED PLAX 3.6 cm LVOT Diameter 2.3 cm DOPPLER AV Peak Velocity 383.7 cm/s AV Peak Gradient 58.9 mmHg AV Mean Velocity 270.6 cm/s AV Mean Gradient 34.1 mmHg AV Velocity Time Integral 79.2 cm LVOT Peak Velocity 145.9 cm/s LVOT Peak Gradient 8.5 mmHg AV Area Cont Eq pk 1.6 cm??? TR Peak Velocity 355.9 cm/s TR Peak Gradient 50.7 mmHg FINDINGS Left Ventricle Mildly increased septal wall thickness. Left ventricular ejection fraction is estimated at 40-45 %. Septal, inferior hypokinesis. Right Ventricle Mild right ventricular dilatation. Moderate pulmonary hypertension. Right Atrium Normal right atrial size. Left Atrium Normal left atrial size. Mitral Valve Structurally normal mitral valve. Mild mitral regurgitation. Aortic Valve Aortic valve not well visualized. Severe aortic stenosis with a peak gradient of 60 mmHg and a mean gradient of 34 mmHg. Tricuspid Valve Structurally normal tricuspid valve. Mild tricuspid regurgitation. Pulmonic Valve Structurally normal pulmonic valve. Pericardium Normal pericardium. Aorta Normal size aortic root and proximal ascending aorta. CONCLUSIONS Mildly increased septal wall thickness. Left ventricular ejection fraction is estimated at 40-45 %. Inferior hypokinesis. RVSP 50 Moderate to severe aortic stenosis with possible degree of low flow low gradient . Mild MR Mild TR Previewed by: Dr. Manuel Matthews DO (Electronically Signed) Final Date: 13 August 2022 14:22
[2022-08-13 14:57] LABS: Glucose,Whole Blood 110 mg/dL (70-110)
[2022-08-13 15:07] LABS: ABG Base Excess -4.7 mmol/L; ABG HCO3 21 mmol/L (21-25); ABG Oxygen Saturation 94.3 % (94-97); ABG PCO2 42 mmHg (35-45); ABG PH 7.32 (7.35-7.45); ABG PO2 75 mmHg (83-108); ABG TCO2 23 mmol/L (19-24); Allen Test Performed? Yes
[2022-08-13 15:51] LABS: Glucose,Whole Blood 129 mg/dL (70-110)
[2022-08-13 16:21] LABS: Calcium 8.2 mg/dL (8.4-10.2); Magnesium 2.1 mg/dL (1.6-2.3); Phosphorus 6.1 mg/dL (2.5-4.5); Potassium 3.4 mmol/L (3.5-5.1)
[2022-08-13 16:56] LABS: Glucose,Whole Blood 139 mg/dL (70-110)
[2022-08-13] MEDS: POTASSIUM CHLORIDE 20 MEQ in WATER FOR INJECTION 1 100ML.BAG IVPB SCH ×2 (16:58→18:42)
[2022-08-13 17:53] LABS: Glucose,Whole Blood 132 mg/dL (70-110)
[2022-08-13 18:58] LABS: Glucose,Whole Blood 145 mg/dL (70-110)
[2022-08-13 20:06] LABS: Glucose,Whole Blood 162 mg/dL (70-110)
[2022-08-13] MEDS: FUROSEMIDE 10 MG/ML 10 ML VIAL IV SCH ×2 (20:28→21:12)
[2022-08-13] MEDS: ATORVASTATIN 80 MG TAB PO SCH (20:28)
[2022-08-13 20:34] LABS: Calcium 8.1 mg/dL (8.4-10.2); Phosphorus 6.3 mg/dL (2.5-4.5); Potassium 4.5 mmol/L (3.5-5.1)
[2022-08-13 21:09] LABS: Glucose,Whole Blood 192 mg/dL (70-110)
[2022-08-13 22:04] LABS: Glucose,Whole Blood 176 mg/dL (70-110)
[2022-08-13 23:03] LABS: Glucose,Whole Blood 201 mg/dL (70-110)
[2022-08-14 00:05] LABS: Glucose,Whole Blood 207 mg/dL (70-110)
[2022-08-14 01:08] LABS: Glucose,Whole Blood 216 mg/dL (70-110)
[2022-08-14 01:34] LABS: Calcium 7.9 mg/dL (8.4-10.2); Magnesium 2.1 mg/dL (1.6-2.3); Phosphorus 5.6 mg/dL (2.5-4.5); Potassium 4.6 mmol/L (3.5-5.1)
[2022-08-14 02:11] LABS: Glucose,Whole Blood 242 mg/dL (70-110)
[2022-08-14] MEDS: CISATRACURIUM 200 MG in SODIUM CHLORIDE 0.9% 180 ML IV SCH (03:20)
[2022-08-14 03:33] LABS: Glucose,Whole Blood 270 mg/dL (70-110)
[2022-08-14 04:23] LABS: Glucose,Whole Blood 276 mg/dL (70-110)
[2022-08-14] MEDS: ARTIFICIAL TEARS-HYPROMELLOSE DROPS 15 ML BTL BOTH EYES SCH ×5 (04:25→20:55)
[2022-08-14 05:27] LABS: Glucose,Whole Blood 276 mg/dL (70-110)
[2022-08-14 05:58] LABS: ABG Base Excess -3.4 mmol/L; ABG HCO3 22 mmol/L (21-25); ABG PCO2 41 mmHg (35-45); ABG PH 7.35 (7.35-7.45); ABG PO2 75 mmHg (83-108); ABG TCO2 24 mmol/L (19-24); Allen Test Performed? Yes
[2022-08-14 06:18] LABS: Glucose,Whole Blood 271 mg/dL (70-110)
[2022-08-14] MEDS: NOREPINEPHRINE 8 MG in SODIUM CHLORIDE 0.9% 250 ML IV SCH (06:37)
[2022-08-14 07:09] LABS: Glucose,Whole Blood 238 mg/dL (70-110)
--- NOTE | 2022-08-14 07:33 | XR ---
EXAMINATION TYPE: XR chest 1V portable DATE OF EXAM: 08/14/2022 COMPARISON: 08/13/2022 HISTORY: SOB, Follow Up FINDINGS: Indwelling tubes and catheters are unchanged. Persistent consolidation right mid and right lower lung field although there is interval improvement. Improving aeration left upper lobe. Scattered interstitial infiltrates right upper lobe persists. Stable appearance of the cardio-mediastinal structures at this time. IMPRESSION: 1. Improving infiltrates may reflect improving pulmonary edema or ARDS. Clinical correlation and foll ow up until resolution is recommended.
[2022-08-14 08:12] LABS: Basophils % (A) 0 %; Eosinophils # (A) 0.1 k/uL (0-0.7); Eosinophils % (A) 1 %; HCT 31.8 % (39.0-53.0); HGB 10.6 gm/dL (13.0-17.5); Lymphocytes # (A) 0.8 k/uL (1.0-4.8); Lymphocytes % (A) 7 %; MCH 30.8 pg (25.0-35.0); MCHC 33.2 g/dL (31.0-37.0); Mean Platelet Volume 8.5; Monocytes # (A) 0.7 k/uL (0-1.0); Monocytes % (A) 6 %; Neutrophils # (A) 10.1 k/uL (1.3-7.7); Neutrophils % (A) 85 %; Platelet Count 368 k/uL (150-450); RBC 3.43 m/uL (4.30-5.90); RDW 13.6 % (11.5-15.5)
[2022-08-14 08:16] LABS: Glucose,Whole Blood 261 mg/dL (70-110)
[2022-08-14 08:24] LABS: MCV 92.8 fL (80.0-100.0)
--- NOTE | 2022-08-14 09:05 | P.PN ---
Subjective Progress Note Date: 08/14/22 Patient is a 63-year-old male with history of diabetes mellitus type 2, [id number] with neuropathy, asthma, and osteoarthritis who presented to the emergency department with chest pain and shortness of breath. In the ER he underwent an extensive evaluation. He required BiPAP secondary to tachypnea. An EKG was obtained in the emergency department which shows ST segment elevation inferior with reciprocal changes and poor R-wave progression. Patient needed to have worsening respiratory distress and required intubation in the ER. He was emergently taken to cath laboratory technician and had PCI performed to the RCA. He did not have return of flow to the PDA despite thrombectomy and cardiology recommend ed an additional 12 hours of Aggrastat and heparin for 24. He was found to have diffuse edema on his chest x-ray on vent settings are consistent with ARDS. Initial laboratory analysis also demonstrated hyperglycemia with a blood sugar of 636, patient was acetone positive and therefore diagnosed with DKA. Due to his vent settings and diffuse pulmonary edema he was started on an insulin drip but was not provided with fluid resuscitation as was requiring a PEEP of 14 and an FiO2 of 100% on the vent. Patient was seen and examined. No acute events overnight. Patient continues to be sedated on the vent and is unresponsive. He is on insulin drip at 4.25 units per hour. He is currently on Levothroid 0.08 mcg/kg/m. He is on Demadex and propofol. Ventilator settings rate 26, tidal volume 500, PEEP of 10 and FiO2 of 50%. ABG shows pH 7.35 and pCO2 of 41. BMP shows Na 136, bicarb of 20, BUN 64, Cr 2.58, glucose 204, Ca 7.9, phosphorous 5.6. General: no distress, appears at stated age Derm: warm, dry Head: atraumatic, normocephalic, symmetric Eyes: PERRL, no lid lesion anicteric sclera Mouth: no lip lesion, mucus membranes moist Cardiovascular: S1S2 irreg, no murmur, positive posterior tibial pulse bilateral, Lungs: Course BS bilateral, no rhonchi, no rales , no accessory muscle use Abdominal: soft, nontender to palpation, no guarding, no appreciable organomegaly Ext: no gross muscle atrophy, no edema, no contractures Neuro: Unable to assess Psych: sedated on vent #Acute inferior ST segment elevated myocardial infarction #Moderate to severe aortic stenosis #Cardiogenic shock #ARDS with diffuse pulmonary edema likely secondary to cardiogenic shock - Continue with aspirin, Lipitor, Brilinta, Heparin drip. - Echo shows EF 40-45% with septal and inferior hypokinesis, moderate pulmonary hypertension, severe stenosis. - Add ACEi and Aldactone when renal function improves. Add beta olga lidia when BP improves. - Wean Levophed as tolerated to maintain MAP > 65. - On Clindamycin for empiric treatment of aspiration pneumonia. - Lasix 80 mg IV BID started by Nephrology. - Cardiology and Critical care on board. #DKA, diabetes mellitus type 2 with neuropathy - Continue with insulin infusion until acidosis corrects. - IV fluids currently contraindicated secondary to vent settings with a PEEP of 10 and FiO2 of 50%. - Continue with DKA protocol. - Hold metformin and glipizide. #Acute kidney injury - Likely prerenal related to cardiogenic shock. Also worsened with contrast used in cardiac cath. - Obtain renal and bladder US. - Nephrology consulted. Chronic conditions: Asthma, OA, Eczema DVT prophylaxis: heparin gtt Anticipated discharge: pending clinical course Anticipated discharge place: pending clinical course Objective - Vital Signs Vital signs: Vital Signs Temp 99.1 F 08/14/22 04:00 Pulse 111 H 08/14/22 07:00 Resp 0 L 08/14/22 07:00 BP 94/58 08/14/22 07:00 Pulse Ox 98 08/14/22 07:00 FiO2 50 08/14/22 07:30 Intake & Output 08/13/22 08/14/22 08/14/22 18:59 06:59 18:59 Intake Total 1125.200 852.133 22.357 Output Total 298 595 100 Balance 827.200 257.133 -77.643 Weight 101.5 kg 102.6 kg Intake: IV 260 220 20 0.9 KVO 260 220 20 Intake, IV Titration 865.200 632.133 2.357 Amount Cisatracurium 200 mg In 42.630 99.774 Sodium Chloride 0.9% 180 ml @ 1 MCG/KG/MIN 6.09 mls/hr IV .Q24H JUANA Rx#: [id number] Clindamycin 600 mg In 100 Dextrose 5% in Water 50 ml @ 50 mls/hr IVPB Q8HR JUANA Rx#:[id number] Heparin Sod,Pork in 0.45% 78.8 135.252 NaCl 25,000 unit In 0.45 % NaCl 1 250ml.bag @ 9.91 UNITS/KG/HR 10.002 mls/ hr IV .Q24H JUANA Rx#: [id number] Insulin Regular 100 unit 96.562 8.296 In Sodium Chloride 0.9% 100 ml @ 0.1 UNITS/KG/HR 10.193 mls/hr IV .Q9H55M JUANA Rx#:[id number] Norepinephrine 8 mg In 159.411 102.942 2.357 Sodium Chloride 0.9% 250 ml @ 0.03 MCG/KG/MIN 5. 892 mls/hr IV .Q24H JUANA Rx#:[id number] Potassium Chloride 20 meq 200 In Water For Injection 1 100ml.bag @ 50 mls/hr IVPB Q2H JUANA Rx#: [id number] propofoL 1,000 mg In 187.797 285.869 Empty Bag 1 bag @ 30 MCG/ KG/MIN 18.27 mls/hr IV . Q5H29M JUANA Rx#:[id number] Output: Urine 298 595 100 Other: Voiding Method Indwelling Catheter Indwelling Catheter # Bowel Movements 0 ABP, PAP, CO, CI - Last Documented Arterial Blood Pressure 97/45 - Labs CBC & Chem 7: 08/14/22 07:50 08/14/22 07:50 Labs: Abnormal Lab Results - Last 24 Hours (Table) 08/13/22 08/13/22 08/13/22 Range/Units 10:06 10:10 10:10 WBC (3.8-10.6) k/uL RBC (4.30-5.90) m/uL Hgb (13.0-17.5) gm/dL Hct (39.0-53.0) % Neutrophils # (1.3-7.7) k/uL Lymphocytes # (1.0-4.8) k/uL APTT (22.0-30.0) sec ABG pH (7.35-7.45) ABG pCO2 (35-45) mmHg ABG pO2 (83-108) mmHg ABG O2 Saturation (94-97) % Sodium (137-145) mmol/L Potassium 3.1 L (3.5-5.1) mmol/L Carbon Dioxide 21 L (22-30) mmol/L BUN 60 H (9-20) mg/dL Creatinine 2.38 H (0.66-1.25) mg/dL Glucose (74-99) mg/dL POC Glucose (mg/dL) 225 H (70-110) mg/dL Calcium (8.4-10.2) mg/dL Phosphorus 5.0 H (2.5-4.5) mg/dL Procalcitonin (0.02-0.09) ng/mL 08/13/22 08/13/22 08/13/22 Range/Units 10:10 10:59 11:20 WBC (3.8-10.6) k/uL RBC (4.30-5.90) m/uL Hgb (13.0-17.5) gm/dL Hct (39.0-53.0) % Neutrophils # (1.3-7.7) k/uL Lymphocytes # (1.0-4.8) k/uL APTT (22.0-30.0) sec ABG pH 7.24 L (7.35-7.45) ABG pCO2 51 H (35-45) mmHg ABG pO2 125 H (83-108) mmHg ABG O2 Saturation 98.3 H (94-97) % Sodium (137-145) mmol/L Potassium (3.5-5.1) mmol/L Carbon Dioxide (22-30) mmol/L BUN (9-20) mg/dL Creatinine (0.66-1.25) mg/dL Glucose (74-99) mg/dL POC Glucose (mg/dL) 177 H (70-110) mg/dL Calcium (8.4-10.2) mg/dL Phosphorus (2.5-4.5) mg/dL Procalcitonin 1.92 H (0.02-0.09) ng/mL 08/13/22 08/13/22 08/13/22 Range/Units 11:57 15:05 15:49 WBC (3.8-10.6) k/uL RBC (4.30-5.90) m/uL Hgb (13.0-17.5) gm/dL Hct (39.0-53.0) % Neutrophils # (1.3-7.7) k/uL Lymphocytes # (1.0-4.8) k/uL APTT (22.0-30.0) sec ABG pH 7.32 L (7.35-7.45) ABG pCO2 (35-45) mmHg ABG pO2 75 L (83-108) mmHg ABG O2 Saturation (94-97) % Sodium (137-145) mmol/L Potassium (3.5-5.1) mmol/L Carbon Dioxide (22-30) mmol/L BUN (9-20) mg/dL Creatinine (0.66-1.25) mg/dL Glucose (74-99) mg/dL POC Glucose (mg/dL) 135 H 129 H (70-110) mg/dL Calcium (8.4-10.2) mg/dL Phosphorus (2.5-4.5) mg/dL Procalcitonin (0.02-0.09) ng/mL 08/13/22 08/13/22 08/13/22 Range/Units 15:50 16:55 17:52 WBC (3.8-10.6) k/uL RBC (4.30-5.90) m/uL Hgb (13.0-17.5) gm/dL Hct (39.0-53.0) % Neutrophils # (1.3-7.7) k/uL Lymphocytes # (1.0-4.8) k/uL APTT (22.0-30.0) sec ABG pH (7.35-7.45) ABG pCO2 (35-45) mmHg ABG pO2 (83-108) mmHg ABG O2 Saturation (94-97) % Sodium (137-145) mmol/L Potassium 3.4 L (3.5-5.1) mmol/L Carbon Dioxide 20 L (22-30) mmol/L BUN 62 H (9-20) mg/dL Creatinine 2.41 H (0.66-1.25) mg/dL Glucose 122 H (74-99) mg/dL POC Glucose (mg/dL) 139 H 132 H (70-110) mg/dL Calcium 8.2 L (8.4-10.2) mg/dL Phosphorus 6.1 H (2.5-4.5) mg/dL Procalcitonin (0.02-0.09) ng/mL 08/13/22 08/13/22 08/13/22 Range/Units 18:55 20:04 20:06 WBC (3.8-10.6) k/uL RBC (4.30-5.90) m/uL Hgb (13.0-17.5) gm/dL Hct (39.0-53.0) % Neutrophils # (1.3-7.7) k/uL Lymphocytes # (1.0-4.8) k/uL APTT (22.0-30.0) sec ABG pH (7.35-7.45) ABG pCO2 (35-45) mmHg ABG pO2 (83-108) mmHg ABG O2 Saturation (94-97) % Sodium 136 L (137-145) mmol/L Potassium (3.5-5.1) mmol/L Carbon Dioxide 20 L (22-30) mmol/L BUN 63 H (9-20) mg/dL Creatinine 2.68 H (0.66-1.25) mg/dL Glucose 155 H (74-99) mg/dL POC Glucose (mg/dL) 145 H 162 H (70-110) mg/dL Calcium 8.1 L (8.4-10.2) mg/dL Phosphorus 6.3 H (2.5-4.5) mg/dL Procalcitonin (0.02-0.09) ng/mL 08/13/22 08/13/22 08/13/22 Range/Units 21:07 22:03 23:00 WBC (3.8-10.6) k/uL RBC (4.30-5.90) m/uL Hgb (13.0-17.5) gm/dL Hct (39.0-53.0) % Neutrophils # (1.3-7.7) k/uL Lymphocytes # (1.0-4.8) k/uL APTT (22.0-30.0) sec ABG pH (7.35-7.45) ABG pCO2 (35-45) mmHg ABG pO2 (83-108) mmHg ABG O2 Saturation (94-97) % Sodium (137-145) mmol/L Potassium (3.5-5.1) mmol/L Carbon Dioxide (22-30) mmol/L BUN (9-20) mg/dL Creatinine (0.66-1.25) mg/dL Glucose (74-99) mg/dL POC Glucose (mg/dL) 192 H 176 H 201 H (70-110) mg/dL Calcium (8.4-10.2) mg/dL Phosphorus (2.5-4.5) mg/dL Procalcitonin (0.02-0.09) ng/mL 08/14/22 08/14/22 08/14/22 Range/Units 00:00 00:00 00:03 WBC (3.8-10.6) k/uL RBC (4.30-5.90) m/uL Hgb (13.0-17.5) gm/dL Hct (39.0-53.0) % Neutrophils # (1.3-7.7) k/uL Lymphocytes # (1.0-4.8) k/uL APTT 51.3 H (22.0-30.0) sec ABG pH (7.35-7.45) ABG pCO2 (35-45) mmHg ABG pO2 (83-108) mmHg ABG O2 Saturation (94-97) % Sodium 136 L (137-145) mmol/L Potassium (3.5-5.1) mmol/L Carbon Dioxide 20 L (22-30) mmol/L BUN 64 H (9-20) mg/dL Creatinine 2.64 H (0.66-1.25) mg/dL Glucose 204 H (74-99) mg/dL POC Glucose (mg/dL) 207 H (70-110) mg/dL Calcium 7.9 L (8.4-10.2) mg/dL Phosphorus 5.6 H (2.5-4.5) mg/dL Procalcitonin (0.02-0.09) ng/mL 08/14/22 08/14/22 08/14/22 Range/Units 01:07 02:09 03:31 WBC (3.8-10.6) k/uL RBC (4.30-5.90) m/uL Hgb (13.0-17.5) gm/dL Hct (39.0-53.0) % Neutrophils # (1.3-7.7) k/uL Lymphocytes # (1.0-4.8) k/uL APTT (22.0-30.0) sec ABG pH (7.35-7.45) ABG pCO2 (35-45) mmHg ABG pO2 (83-108) mmHg ABG O2 Saturation (94-97) % Sodium (137-145) mmol/L Potassium (3.5-5.1) mmol/L Carbon Dioxide (22-30) mmol/L BUN (9-20) mg/dL Creatinine (0.66-1.25) mg/dL Glucose (74-99) mg/dL POC Glucose (mg/dL) 216 H 242 H 270 H (70-110) mg/dL Calcium (8.4-10.2) mg/dL Phosphorus (2.5-4.5) mg/dL Procalcitonin (0.02-0.09) ng/mL 08/14/22 08/14/22 08/14/22 Range/Units 04:21 05:25 05:49 WBC (3.8-10.6) k/uL RBC (4.30-5.90) m/uL Hgb (13.0-17.5) gm/dL Hct (39.0-53.0) % Neutrophils # (1.3-7.7) k/uL Lymphocytes # (1.0-4.8) k/uL APTT (22.0-30.0) sec ABG pH (7.35-7.45) ABG pCO2 (35-45) mmHg ABG pO2 75 L (83-108) mmHg ABG O2 Saturation (94-97) % Sodium (137-145) mmol/L Potassium (3.5-5.1) mmol/L Carbon Dioxide (22-30) mmol/L BUN (9-20) mg/dL Creatinine (0.66-1.25) mg/dL Glucose (74-99) mg/dL POC Glucose (mg/dL) 276 H 276 H (70-110) mg/dL Calcium (8.4-10.2) mg/dL Phosphorus (2.5-4.5) mg/dL Procalcitonin (0.02-0.09) ng/mL 08/14/22 08/14/22 08/14/22 Range/Units 06:16 07:07 07:50 WBC 12.0 H (3.8-10.6) k/uL RBC 3.43 L (4.30-5.90) m/uL Hgb 10.6 L (13.0-17.5) gm/dL Hct 31.8 L (39.0-53.0) % Neutrophils # 10.1 H (1.3-7.7) k/uL Lymphocytes # 0.8 L (1.0-4.8) k/uL APTT (22.0-30.0) sec ABG pH (7.35-7.45) ABG pCO2 (35-45) mmHg ABG pO2 (83-108) mmHg ABG O2 Saturation (94-97) % Sodium (137-145) mmol/L Potassium (3.5-5.1) mmol/L Carbon Dioxide (22-30) mmol/L BUN (9-20) mg/dL Creatinine (0.66-1.25) mg/dL Glucose (74-99) mg/dL POC Glucose (mg/dL) 271 H 238 H (70-110) mg/dL Calcium (8.4-10.2) mg/dL Phosphorus (2.5-4.5) mg/dL Procalcitonin (0.02-0.09) ng/mL 08/14/22 08/14/22 08/14/22 Range/Units 07:50 08:14 08:14 WBC (3.8-10.6) k/uL RBC (4.30-5.90) m/uL Hgb (13.0-17.5) gm/dL Hct (39.0-53.0) % Neutrophils # (1.3-7.7) k/uL Lymphocytes # (1.0-4.8) k/uL APTT (22.0-30.0) sec ABG pH (7.35-7.45) ABG pCO2 (35-45) mmHg ABG pO2 (83-108) mmHg ABG O2 Saturation (94-97) % Sodium (137-145) mmol/L Potassium (3.5-5.1) mmol/L Carbon Dioxide (22-30) mmol/L BUN (9-20) mg/dL Creatinine 2.58 H (0.66-1.25) mg/dL Glucose (74-99) mg/dL POC Glucose (mg/dL) 261 H 261 H (70-110) mg/dL Calcium (8.4-10.2) mg/dL Phosphorus (2.5-4.5) mg/dL Procalcitonin (0.02-0.09) ng/mL Microbiology - Last 24 Hours (Table) 08/13/22 12:12 Gram Stain - Preliminary Sputum Sputum Culture - Preliminary
[2022-08-14] MEDS: INSULIN REGULAR 100 UNIT in SODIUM CHLORIDE 0.9% 100 ML IV SCH ×2 (09:15→15:38)
[2022-08-14] MEDS: HEPARIN SOD,PORK IN 0.45% NACL 25,000 UNIT in 0.45% NACL 1 250ML.BAG IV SCH (09:15)
[2022-08-14] MEDS: CHLORHEXIDINE GLUCONATE 15 ML CUP MUCOUS MEM SCH ×2 (09:43→21:46)
[2022-08-14] MEDS: TICAGRELOR 90 MG TAB PO SCH ×2 (09:43→21:46)
[2022-08-14] MEDS: ASPIRIN 81 MG PO SCH (09:43)
[2022-08-14] MEDS: FUROSEMIDE 10 MG/ML 10 ML VIAL IV SCH ×2 (09:43→21:48)
[2022-08-14] MEDS: NYSTATIN 100,000UNIT/GM CREAM 30 GM TUBE TOPICAL SCH ×2 (09:44→21:46)
--- NOTE | 2022-08-14 09:52 | P.NPCON ---
History of Present Illness - Reason for Consult acute renal failure - History of Present Illness Patient is a 67-year-old male with history of hypertension, type 2 diabetes who was admitted to the hospital with complaints of chest pain and shortness of breath. EKG showed evidence of acute inferior ST elevation WA. Patient was taken to laboratory sample carrier and is status post thrombectomy and angioplasty and stent p lacement of RCA. Patient was found to have pulmonary edema. He was intubated in the ER. Patient became hypotensive and has needed small dose of levo fed. Urine output had dropped and renal function worsened with serum creatinine at 2.6 from 1.9 on initial admission. Previous creatinine 1.0 on 01/13/2019. Patient was noted to be in DKA and is maintained on insulin drip Patient has been started on IV Lasix 80 mg every 12 hours and urine output has increased. Serum creatinine is also improved to 2.5 from 2.68 yesterday. Levo fed dose is also slightly lower today as compared to yesterday. Review of Systems As per HPI. Other systems negative Past Medical History Past Medical History: Asthma, Diabetes Mellitus, Osteoarthritis (OA) Additional Past Medical History / Comment(s): HX OF BACK SURGERY WITH BACK PAIN, DIABETIC NEUROPATHY, HEART MURMUR., KERATOCONUS., STOOL TEST POSITIVE ., ECZEMA. History of Any Multi-Drug Resistant Organisms: None Reported Past Surgical History: Back Surgery Additional Past Surgical History / Comment(s): BACK SURGERY WITH DISC REMOVED AND FUSION 2008., VASECTOMY, LEFT GREAT TOE. Past Anesthesia/Blood Transfusion Reactions: No Reported Reaction Past Psychological History: No Psychological Hx Reported Smoking Status: Never smoker Past Alcohol Use History: None Reported Additional Past Alcohol Use History / Comment(s): QUIT SMOKING 1996. SMOKED CIGARS OCCASIONALLY Past Drug Use History: None Reported - Past Family History Mother Family Medical History: No Reported History, Unable to Obtain Medications and Allergies Home Medications Medication Instructions Recorded Confirmed Type Metoprolol Tartrate [Lopressor] 50 mg PO BID 07/24/18 08/13/22 History amLODIPine [Norvasc] 10 mg PO DAILY 07/24/18 08/13/22 History glipiZIDE [Glucotrol] 5 mg PO AC-BRKFST 07/24/18 08/13/22 History metFORMIN HCL [Glucophage] 500 mg PO BID 07/24/18 08/13/22 History traMADol HCL [Ultram] 50 mg PO QID PRN 07/24/18 08/13/22 History Atorvastatin [Lipitor] 40 mg PO DAILY 08/13/22 08/13/22 History DULoxetine HCL [Cymbalta] 60 mg PO DAILY 08/13/22 08/13/22 History Fenofibrate [Lofibra] 54 mg PO BID 08/13/22 08/13/22 History traZODone HCL 100 mg PO HS 08/13/22 08/13/22 History Allergies Allergy/AdvReac Type Severity Reaction Status Date / Time Penicillins Allergy Unknown Verified 08/13/22 14:15 Physical Exam Vitals: Vital Signs Temp Pulse Resp BP Pulse Ox FiO2 08/14/22 07:30 50 08/14/22 07:00 111 H 0 L 94/58 98 08/14/22 06:00 111 H 0 L 102/64 96 08/14/22 05:00 110 H 20 104/63 98 08/14/22 04:00 99.1 F 114 H 26 H 101/62 96 80 08/14/22 03:00 112 H 26 H 99/60 96 50 08/14/22 02:00 113 H 26 H 104/63 92 L 08/14/22 01:00 114 H 26 H 107/64 95 08/14/22 00:12 114 H 26 H 107/64 96 08/14/22 00:00 98.4 F 114 H 26 H 108/65 95 50 08/13/22 23:25 50 08/13/22 23:00 113 H 9 L 102/64 96 08/13/22 22:00 112 H 26 H 105/65 95 08/13/22 21:00 109 H 21 99/63 95 08/13/22 20:00 98.1 F 110 H 26 H 97/61 95 50 08/13/22 19:29 50 08/13/22 19:00 109 H 26 H 95 08/13/22 18:00 108 H 26 H 96 08/13/22 17:00 103 H 26 H 96 08/13/22 16:00 97.5 F L 101 H 26 H 96 50 08/13/22 15:25 65 08/13/22 15:00 92 26 H 96 08/13/22 14:00 90 26 H 95 08/13/22 13:00 86 26 H 97 08/13/22 12:00 97.5 F L 92 26 H 98 65 08/13/22 11:00 94 20 95/56 100 08/13/22 10:00 79 0 L 93/58 99 Intake and Output 08/13/22 08/14/22 08/14/22 22:59 06:59 14:59 Intake Total 874.446 644.631 22.357 Output Total 250 500 100 Balance 624.446 144.631 -77.643 Intake: IV 160 160 20 0.9 KVO 160 160 20 Intake, IV Titration 714.446 484.631 2.357 Amount Cisatracurium 200 mg In 87.696 41.919 Sodium Chloride 0.9% 180 ml @ 1 MCG/KG/MIN 6.09 mls/hr IV .Q24H JUANA Rx#: [id number] Clindamycin 600 mg In 50 Dextrose 5% in Water 50 ml @ 50 mls/hr IVPB Q8HR JUANA Rx#:[id number] Heparin Sod,Pork in 0.45% 78.8 135.252 NaCl 25,000 unit In 0.45 % NaCl 1 250ml.bag @ 9.91 UNITS/KG/HR 10.002 mls/ hr IV .Q24H JUANA Rx#: [id number] Insulin Regular 100 unit 6.788 8.296 In Sodium Chloride 0.9% 100 ml @ 0.1 UNITS/KG/HR 10.193 mls/hr IV .Q9H55M JUANA Rx#:[id number] Norepinephrine 8 mg In 91.162 102.942 2.357 Sodium Chloride 0.9% 250 ml @ 0.03 MCG/KG/MIN 5. 892 mls/hr IV .Q24H JUANA Rx#:[id number] Potassium Chloride 20 meq 200 In Water For Injection 1 100ml.bag @ 50 mls/hr IVPB Q2H JUANA Rx#: [id number] propofoL 1,000 mg In 200.000 196.222 Empty Bag 1 bag @ 30 MCG/ KG/MIN 18.27 mls/hr IV . Q5H29M JUANA Rx#:[id number] Output: Urine 250 500 100 Other: Voiding Method Indwelling Catheter Indwelling Catheter # Bowel Movements 0 Weight 102.6 kg ABP, PAP, CO, CI - Last 8 Hours Arterial Blood Pressure 97/45 Arterial Blood Pressure 94/42 Arterial Blood Pressure 127/61 Arterial Blood Pressure 113/54 Arterial Blood Pressure 97/51 Arterial Blood Pressure 93/50 Patient is currently sedated and on the vent Examination of the heart S1 and S2 Examination of the lungs bilateral breath sounds are heard Abdomen is soft nontender Examination lower extremity shows no significant edema Results - Lab Results Most recent lab results ABG pH 7.35 (7.35-7.45) 08/14/22 05:49 ABG pCO2 41 mmHg (35-45) 08/14/22 05:49 ABG pO2 75 mmHg (83-108) L 08/14/22 05:49 ABG HCO3 22 mmol/L (21-25) 08/14/22 05:49 ABG O2 Saturation 95.0 % (94-97) 08/14/22 05:49 Calcium 7.9 mg/dL (8.4-10.2) L 08/14/22 00:00 Phosphorus 5.6 mg/dL (2.5-4.5) H 08/14/22 00:00 Magnesium 2.1 mg/dL (1.6-2.3) 08/14/22 00:00 08/14/22 07:50 08/14/22 07:50 Assessment and Plan Assessment: 1. Acute kidney injury ATN currently nonoliguric secondary to hypotension and acute WA. Urine output has improved and serum creatinine is improving. UA is benign appearing with trace protein. 2. Acute inferior wall WA status post cardiac catheterization, angioplasty and and coronary stent placement of RCA 3. Hypotension associated with acute inferior WA and possible underlying pneumonia 4. Acute hypoxic respiratory failure secondary to pulmonary edema and possible aspiration pneumonia 5. DKA status post insulin drip 6. Cardiomyopathy with EF of 40-45% Plan: Continue current dose of IV Lasix Continue to wean down levo fed as tolerated Avoid nephrotoxic agents next Thank you for the consultation. We'll continue to follow the patient with you during his hospitalization
[2022-08-14 09:53] LABS: Glucose,Whole Blood 265 mg/dL (70-110)
[2022-08-14] MEDS: CLINDAMYCIN 600 MG in DEXTROSE 5% IN WATER 50 ML IVPB SCH ×4 (10:15→15:40)
[2022-08-14 10:55] LABS: Glucose,Whole Blood 232 mg/dL (70-110)
--- NOTE | 2022-08-14 11:08 | P.PN ---
Subjective Progress Note Date: 08/14/22 Principal diagnosis: Acute hypoxic respiratory failure secondary to acute ST elevation myocardial infarction and acute systolic congestive heart failure This is a 67-year-old white male with history of problems including asthma, diabetes, degenerative joint disease, patient was brought into the ER yesterday with mostly sudden onset of shortness of breath and chest pain. Patient was in extreme respiratory distress upon arrival to the ER, he was placed on BiPAP initially, and he continued to have significant dyspnea. Patient was intubated by the ER physician, workup showed evidence of acute inferior ST elevation myocardial infarction. Patient was seen by cardiology on consultation, and he underwent cardiac catheterization and stenting of the RCA which was totally occl uded. In the meantime the patient was noted to have extensive pulmonary edema, acute hypoxic respiratory failure secondary to pulmonary edema, underlying pneumonia is not entirely ruled out but felt to be less likely. Nonetheless the patient will be covered empirically with antibiotics for presumptive aspiration pneumonia since significant airspace disease is noted in the right lung compared to the left lung. I saw this patient this morning, patient is intubated and mechanically ventilated, he is on assist control rate of 20, FiO2 was 100% I cut it down to 80%, he had tidal volume of 500, PEEP was at 14. As soon as I evaluated the patient, clearly the patient was not synchronous with mechanical ventilation, hence I recommended increasing his propofol to 75 mcg/kg/m, patient continued to remain asynchronous with the ventilator, and he seems to be working quite hard at it. Then I recommended starting the patient on Nimbex and start a Nimbex drip. ABG done later showed a pO2 of 125 pCO2 51 pH of 7.4, hence I increased the rate from 20-26. Another ABG is pending. Patient is requiring norepinephrine at 0.1 mcg/kg/m, he is also on insulin drip for what seems to be in DKA picture. His IV fluid at 20 mL per hour. Patient is now on Nimbex and on Lasix 40 mg IV push every 8 hours, and I added clindamycin empirically. Patient is ALLERGIC to penicillin. Patient had no good venous access when I arrived to see the patient this morning, hence on emergency basis I established a left femoral triple-lumen catheter, and a left radial arterial line. His echocardiogram showed ejection fraction of 40-45%. Patient is on Aggrastat, and he was on heparin earlier with a PTT over 200. Hence I recommended a groin access rather than having a neck or subclavian access after obtaining the ABG, I cut down his FiO2 down to 65%. Looking at the labs, apparently the patient sustained a acute kidney injury, BUN is 60 creatinine 2.38. His creatinine on admission was 1.97, I believe this is mostly related to hypoperfusion as well as related to his cardiac catheterization/contrast media. Reevaluated today on 08/14/22, patient remains in the ICU, remains intubated and mechanically ventilated. Remains on propofol and Nimbex. His ventilator settings are assist control rate of 26 FiO2 50% and PEEP of 12 and I cut it down to 10 tidal volume of 500. ABG this morning showed a pO2 of 75 pCO2 of 41 pH of 7.39. Hence no change was made except cutting down the PEEP from 12-10. Chest x-ray is showing definite improvement in his pulmonary edema but nonetheless continues to have significant interstitial edema especially in the right lung. His urine output is picking up nicely in spite of the fact that the patient is requiring norepinephrine at 0.1 mcg/kg/m. Patient is on Nimbex at 1 mcg/kg/m, propofol 40 mcg/kg/m, and he is on insulin drip at 4.25 units per hour. After reviewing his chest x-ray and reviewing his ABG, I felt it would be best to keep the patient sedated and paralyzed for now. Not much room to start weaning. His urine output is picking up nicely, and that would be helpful for further weaning as his pulmonary edema starts improving. WBC count today is 12 hemoglobin is 10.6. Blood sugar is 232. PTT is 51.3. And his BUN is 64 creatinine is down to 2.58 from 2.68 yesterday. His troponin yesterday was 3.39 and his BNP level was 11,200 Objective - Vital Signs Vital signs: Vital Signs Temp 99.3 F 08/14/22 08:00 Pulse 113 H 08/14/22 09:00 Resp 26 H 08/14/22 09:00 BP 120/64 08/14/22 09:00 Pulse Ox 98 08/14/22 09:00 FiO2 50 08/14/22 08:00 Intake & Output 11/12/22 11/13/22 11/13/22 18:59 06:59 18:59 Intake Total 1125.200 852.133 99.308 Output Total 298 595 410 Balance 827.200 257.133 -310.692 Weight 101.5 kg 102.6 kg Intake: IV 260 220 80 0.9 KVO 260 220 80 Intake, IV Titration 865.200 632.133 19.308 Amount Cisatracurium 200 mg In 42.630 99.774 Sodium Chloride 0.9% 180 ml @ 1 MCG/KG/MIN 6.09 mls/hr IV .Q24H JUANA Rx#: [id number] Clindamycin 600 mg In 100 Dextrose 5% in Water 50 ml @ 50 mls/hr IVPB Q8HR JUANA Rx#:[id number] Heparin Sod,Pork in 0.45% 78.8 135.252 NaCl 25,000 unit In 0.45 % NaCl 1 250ml.bag @ 9.91 UNITS/KG/HR 10.002 mls/ hr IV .Q24H JUANA Rx#: [id number] Insulin Regular 100 unit 96.562 8.296 16.951 In Sodium Chloride 0.9% 100 ml @ 0.1 UNITS/KG/HR 10.193 mls/hr IV .Q9H55M JUANA Rx#:[id number] Norepinephrine 8 mg In 159.411 102.942 2.357 Sodium Chloride 0.9% 250 ml @ 0.03 MCG/KG/MIN 5. 892 mls/hr IV .Q24H JUANA Rx#:[id number] Potassium Chloride 20 meq 200 In Water For Injection 1 100ml.bag @ 50 mls/hr IVPB Q2H JUANA Rx#: [id number] propofoL 1,000 mg In 187.797 285.869 Empty Bag 1 bag @ 30 MCG/ KG/MIN 18.27 mls/hr IV . Q5H29M JUANA Rx#:[id number] Output: Urine 298 595 410 Other: Voiding Method Indwelling Catheter Indwelling Catheter # Bowel Movements 0 ABP, PAP, CO, CI - Last Documented Arterial Blood Pressure 104/44 - Exam Physical Exam: Revealed a 67-year-old white male obese, intubated mechanically ventilated, sedated, and paralyzed. Head: Atraumatic, normocephalic, endotracheal tube and orogastric tube are intact. HEENT:[Neck is supple.] [No neck masses.] [No thyromegaly.] [No JVD.] Chest: [Crackles and rhonchi noted bilaterally. No rhonchi no wheezes. Cardiac Exam: Distant S1 and S2, no S3 gallop, no murmur. Abdomen: [Obese, Soft, nontender, no megaly, no rebound, no guarding, normal bowel sounds.] Extremities: [No clubbing, trace of bipedal edema. Diminished pulses bi laterally. Neurological Exam: Could not assess, patient is sedated and paralyzed. Psychiatric: Could not assess, sedated Skin: Evidence of fungal rash noted in the right groin area and over the abdo rhea wall in the periumbilical area. - Labs CBC & Chem 7: 08/14/22 07:50 08/14/22 07:50 Labs: Abnormal Lab Results - Last 24 Hours (Table) 08/13/22 08/13/22 08/13/22 Range/Units 10:10 10:59 11:20 WBC (3.8-10.6) k/uL RBC (4.30-5.90) m/uL Hgb (13.0-17.5) gm/dL Hct (39.0-53.0) % Neutrophils # (1.3-7.7) k/uL Lymphocytes # (1.0-4.8) k/uL APTT (22.0-30.0) sec ABG pH 7.24 L (7.35-7.45) ABG pCO2 51 H (35-45) mmHg ABG pO2 125 H (83-108) mmHg ABG O2 Saturation 98.3 H (94-97) % Sodium (137-145) mmol/L Potassium (3.5-5.1) mmol/L Carbon Dioxide (22-30) mmol/L BUN (9-20) mg/dL Creatinine (0.66-1.25) mg/dL Glucose (74-99) mg/dL POC Glucose (mg/dL) 177 H (70-110) mg/dL Calcium (8.4-10.2) mg/dL Phosphorus (2.5-4.5) mg/dL Procalcitonin 1.92 H (0.02-0.09) ng/mL 08/13/22 08/13/22 08/13/22 Range/Units 11:57 15:05 15:49 WBC (3.8-10.6) k/uL RBC (4.30-5.90) m/uL Hgb (13.0-17.5) gm/dL Hct (39.0-53.0) % Neutrophils # (1.3-7.7) k/uL Lymphocytes # (1.0-4.8) k/uL APTT (22.0-30.0) sec ABG pH 7.32 L (7.35-7.45) ABG pCO2 (35-45) mmHg ABG pO2 75 L (83-108) mmHg ABG O2 Saturation (94-97) % Sodium (137-145) mmol/L Potassium (3.5-5.1) mmol/L Carbon Dioxide (22-30) mmol/L BUN (9-20) mg/dL Creatinine (0.66-1.25) mg/dL Glucose (74-99) mg/dL POC Glucose (mg/dL) 135 H 129 H (70-110) mg/dL Calcium (8.4-10.2) mg/dL Phosphorus (2.5-4.5) mg/dL Procalcitonin (0.02-0.09) ng/mL 08/13/22 08/13/22 08/13/22 Range/Units 15:50 16:55 17:52 WBC (3.8-10.6) k/uL RBC (4.30-5.90) m/uL Hgb (13.0-17.5) gm/dL Hct (39.0-53.0) % Neutrophils # (1.3-7.7) k/uL Lymphocytes # (1.0-4.8) k/uL APTT (22.0-30.0) sec ABG pH (7.35-7.45) ABG pCO2 (35-45) mmHg ABG pO2 (83-108) mmHg ABG O2 Saturation (94-97) % Sodium (137-145) mmol/L Potassium 3.4 L (3.5-5.1) mmol/L Carbon Dioxide 20 L (22-30) mmol/L BUN 62 H (9-20) mg/dL Creatinine 2.41 H (0.66-1.25) mg/dL Glucose 122 H (74-99) mg/dL POC Glucose (mg/dL) 139 H 132 H (70-110) mg/dL Calcium 8.2 L (8.4-10.2) mg/dL Phosphorus 6.1 H (2.5-4.5) mg/dL Procalcitonin (0.02-0.09) ng/mL 08/13/22 08/13/22 08/13/22 Range/Units 18:55 20:04 20:06 WBC (3.8-10.6) k/uL RBC (4.30-5.90) m/uL Hgb (13.0-17.5) gm/dL Hct (39.0-53.0) % Neutrophils # (1.3-7.7) k/uL Lymphocytes # (1.0-4.8) k/uL APTT (22.0-30.0) sec ABG pH (7.35-7.45) ABG pCO2 (35-45) mmHg ABG pO2 (83-108) mmHg ABG O2 Saturation (94-97) % Sodium 136 L (137-145) mmol/L Potassium (3.5-5.1) mmol/L Carbon Dioxide 20 L (22-30) mmol/L BUN 63 H (9-20) mg/dL Creatinine 2.68 H (0.66-1.25) mg/dL Glucose 155 H (74-99) mg/dL POC Glucose (mg/dL) 145 H 162 H (70-110) mg/dL Calcium 8.1 L (8.4-10.2) mg/dL Phosphorus 6.3 H (2.5-4.5) mg/dL Procalcitonin (0.02-0.09) ng/mL 08/13/22 08/13/22 08/13/22 Range/Units 21:07 22:03 23:00 WBC (3.8-10.6) k/uL RBC (4.30-5.90) m/uL Hgb (13.0-17.5) gm/dL Hct (39.0-53.0) % Neutrophils # (1.3-7.7) k/uL Lymphocytes # (1.0-4.8) k/uL APTT (22.0-30.0) sec ABG pH (7.35-7.45) ABG pCO2 (35-45) mmHg ABG pO2 (83-108) mmHg ABG O2 Saturation (94-97) % Sodium (137-145) mmol/L Potassium (3.5-5.1) mmol/L Carbon Dioxide (22-30) mmol/L BUN (9-20) mg/dL Creatinine (0.66-1.25) mg/dL Glucose (74-99) mg/dL POC Glucose (mg/dL) 192 H 176 H 201 H (70-110) mg/dL Calcium (8.4-10.2) mg/dL Phosphorus (2.5-4.5) mg/dL Procalcitonin (0.02-0.09) ng/mL 08/14/22 08/14/22 08/14/22 Range/Units 00:00 00:00 00:03 WBC (3.8-10.6) k/uL RBC (4.30-5.90) m/uL Hgb (13.0-17.5) gm/dL Hct (39.0-53.0) % Neutrophils # (1.3-7.7) k/uL Lymphocytes # (1.0-4.8) k/uL APTT 51.3 H (22.0-30.0) sec ABG pH (7.35-7.45) ABG pCO2 (35-45) mmHg ABG pO2 (83-108) mmHg ABG O2 Saturation (94-97) % Sodium 136 L (137-145) mmol/L Potassium (3.5-5.1) mmol/L Carbon Dioxide 20 L (22-30) mmol/L BUN 64 H (9-20) mg/dL Creatinine 2.64 H (0.66-1.25) mg/dL Glucose 204 H (74-99) mg/dL POC Glucose (mg/dL) 207 H (70-110) mg/dL Calcium 7.9 L (8.4-10.2) mg/dL Phosphorus 5.6 H (2.5-4.5) mg/dL Procalcitonin (0.02-0.09) ng/mL 08/14/22 08/14/22 08/14/22 Range/Units 01:07 02:09 03:31 WBC (3.8-10.6) k/uL RBC (4.30-5.90) m/uL Hgb (13.0-17.5) gm/dL Hct (39.0-53.0) % Neutrophils # (1.3-7.7) k/uL Lymphocytes # (1.0-4.8) k/uL APTT (22.0-30.0) sec ABG pH (7.35-7.45) ABG pCO2 (35-45) mmHg ABG pO2 (83-108) mmHg ABG O2 Saturation (94-97) % Sodium (137-145) mmol/L Potassium (3.5-5.1) mmol/L Carbon Dioxide (22-30) mmol/L BUN (9-20) mg/dL Creatinine (0.66-1.25) mg/dL Glucose (74-99) mg/dL POC Glucose (mg/dL) 216 H 242 H 270 H (70-110) mg/dL Calcium (8.4-10.2) mg/dL Phosphorus (2.5-4.5) mg/dL Procalcitonin (0.02-0.09) ng/mL 08/14/22 08/14/22 08/14/22 Range/Units 04:21 05:25 05:49 WBC (3.8-10.6) k/uL RBC (4.30-5.90) m/uL Hgb (13.0-17.5) gm/dL Hct (39.0-53.0) % Neutrophils # (1.3-7.7) k/uL Lymphocytes # (1.0-4.8) k/uL APTT (22.0-30.0) sec ABG pH (7.35-7.45) ABG pCO2 (35-45) mmHg ABG pO2 75 L (83-108) mmHg ABG O2 Saturation (94-97) % Sodium (137-145) mmol/L Potassium (3.5-5.1) mmol/L Carbon Dioxide (22-30) mmol/L BUN (9-20) mg/dL Creatinine (0.66-1.25) mg/dL Glucose (74-99) mg/dL POC Glucose (mg/dL) 276 H 276 H (70-110) mg/dL Calcium (8.4-10.2) mg/dL Phosphorus (2.5-4.5) mg/dL Procalcitonin (0.02-0.09) ng/mL 08/14/22 08/14/22 08/14/22 Range/Units 06:16 07:07 07:50 WBC 12.0 H (3.8-10.6) k/uL RBC 3.43 L (4.30-5.90) m/uL Hgb 10.6 L (13.0-17.5) gm/dL Hct 31.8 L (39.0-53.0) % Neutrophils # 10.1 H (1.3-7.7) k/uL Lymphocytes # 0.8 L (1.0-4.8) k/uL APTT (22.0-30.0) sec ABG pH (7.35-7.45) ABG pCO2 (35-45) mmHg ABG pO2 (83-108) mmHg ABG O2 Saturation (94-97) % Sodium (137-145) mmol/L Potassium (3.5-5.1) mmol/L Carbon Dioxide (22-30) mmol/L BUN (9-20) mg/dL Creatinine (0.66-1.25) mg/dL Glucose (74-99) mg/dL POC Glucose (mg/dL) 271 H 238 H (70-110) mg/dL Calcium (8.4-10.2) mg/dL Phosphorus (2.5-4.5) mg/dL Procalcitonin (0.02-0.09) ng/mL 08/14/22 08/14/22 08/14/22 Range/Units 07:50 08:14 08:14 WBC (3.8-10.6) k/uL RBC (4.30-5.90) m/uL Hgb (13.0-17.5) gm/dL Hct (39.0-53.0) % Neutrophils # (1.3-7.7) k/uL Lymphocytes # (1.0-4.8) k/uL APTT (22.0-30.0) sec ABG pH (7.35-7.45) ABG pCO2 (35-45) mmHg ABG pO2 (83-108) mmHg ABG O2 Saturation (94-97) % Sodium (137-145) mmol/L Potassium (3.5-5.1) mmol/L Carbon Dioxide (22-30) mmol/L BUN (9-20) mg/dL Creatinine 2.58 H (0.66-1.25) mg/dL Glucose (74-99) mg/dL POC Glucose (mg/dL) 261 H 261 H (70-110) mg/dL Calcium (8.4-10.2) mg/dL Phosphorus (2.5-4.5) mg/dL Procalcitonin (0.02-0.09) ng/mL 08/14/22 08/14/22 Range/Units 09:51 10:54 WBC (3.8-10.6) k/uL RBC (4.30-5.90) m/uL Hgb (13.0-17.5) gm/dL Hct (39.0-53.0) % Neutrophils # (1.3-7.7) k/uL Lymphocytes # (1.0-4.8) k/uL APTT (22.0-30.0) sec ABG pH (7.35-7.45) ABG pCO2 (35-45) mmHg ABG pO2 (83-108) mmHg ABG O2 Saturation (94-97) % Sodium (137-145) mmol/L Potassium (3.5-5.1) mmol/L Carbon Dioxide (22-30) mmol/L BUN (9-20) mg/dL Creatinine (0.66-1.25) mg/dL Glucose (74-99) mg/dL POC Glucose (mg/dL) 265 H 232 H (70-110) mg/dL Calcium (8.4-10.2) mg/dL Phosphorus (2.5-4.5) mg/dL Procalcitonin (0.02-0.09) ng/mL Microbiology - Last 24 Hours (Table) 08/13/22 12:12 Gram Stain - Preliminary Sputum Sputum Culture - Preliminary Assessment and Plan Assessment: Impression: Acute hypoxic respiratory failure secondary to acute systolic congestive heart failure, pulmonary edema, secondary to ischemic cardiomyopathy and acute ST el evation myocardial infarction Status post cardiac catheterization and stenting of totally occluded RCA. Acute ischemic cardiomyopathy and LV dysfunction. Possible aspiration pneumonia as the patient will be covered empirically with clindamycin although clinically no history to suggest aspiration. Acute diabetic ketoacidosis. History of diabetes. Possibly type 1 diabetes Acute kidney injury, related to his cardiorenal picture and I suspect kidney injury from contrast media/cardiac catheterization History of asthma severity of which is unclear, but the patient is on albuterol and Advair on a regular basis at home Degenerative joint disease. Fungal dermatitis involving the groin mostly right groin. Recommendation: Continue ventilatory support. Not ready for weaning, we'll continue propofol, continue Nimbex for now, continue norepinephrine, Nutritional support, patient to be started on enteral feeding/Nepro today. Continue diuretics. Lasix 40 mg IV push every 8 hours. Continue insulin drip. GI and DVT prophylaxis. Continue clindamycin for potential aspiration pneumonia and this is empirically given. Check pro calcitonin level, if normal then we could consider discontinuing antibiotics Aspirin, statin, Patient is extremely ill, and prognosis is extremely guarded. Discussed yesterday his overall status and prognosis with water at bedside. Antifungal topical treatment for his rash in right groin. We will continue to follow. Critical care time is over 30 minutes Time with Patient: Greater than 30
--- NOTE | 2022-08-14 12:00 | US ---
EXAMINATION TYPE: US renals and bladder DATE OF EXAM: 08/14/2022 COMPARISON: NONE CLINICAL HISTORY: RASHMI. RASHMI limited patient on vent unable to roll or hold breath. EXAM MEASUREMENTS: Right Kidney: 10 x 5.1 x 4.5 cm Left Kidney: Unable to visualize due to bowel gas and patient unable to roll. Incidental finding gallstones visualized. Right Kidney: Echogenic area seen upper pole .9 x 1.3 cm. no shadowing visualized. Left Kidney: Obscured by overlying bowel gas Bladder: Cathter in place. Bilateral Jets seen: no There is no evidence for hydronephrosis at this point in time. No masses are identified. The urinar y bladder is anechoic. IMPRESSION: Nonshadowing renal calculus versus angiomyolipoma upper pole right kidney.
[2022-08-14 12:12] LABS: Glucose,Whole Blood 196 mg/dL (70-110)
[2022-08-14 13:25] LABS: Glucose,Whole Blood 153 mg/dL (70-110)
[2022-08-14 14:23] LABS: Calcium 7.7 mg/dL (8.4-10.2); Potassium 4.3 mmol/L (3.5-5.1)
[2022-08-14 14:30] LABS: Glucose,Whole Blood 159 mg/dL (70-110)
[2022-08-14 15:36] LABS: Glucose,Whole Blood 134 mg/dL (70-110)
[2022-08-14 16:24] LABS: Glucose,Whole Blood 130 mg/dL (70-110)
--- NOTE | 2022-08-14 16:41 | P.PN ---
Subjective HISTORY OF PRESENTING ILLNESS Patient is a 63-year-old male with history of diabetic neuropathy, hypertension, hyperlipidemia, diabetes mellitus type 2, orthopedic issues who presents secondary to chest pain and shortness breath. Patient on examination tachypnic on BIPAP and appears be somewhat altered and some of history supplied by chart. Patient currently denying obvious chest pain and mainly states he started feeling short of breath. There was report however that this started with chest discomfort. He denies anything similar in the past. No history of prior CAD. Currently tachypnic and accessory muscle use. EKG shows sinus rhythm, minimal Q-wave lead 3, ST elevation inferiorly with reciprocal changes in the lateral leads, poor R-wave progression. Chest x-ray showing bilateral pulmonary edema somewhat worse on the right. Blood pressure on presentation and 121/104 and 76% on room air. His placed on BiPAP however not tolerating well and therefore decision was made by ER to intubate patient. 08/14 Patient seen and examined. Patient remains intubated and sedated and on insulin drip as well as norepinephrine. Currently ventilator at 50% FiO2 with a PEEP of 10. Echocardiogram yesterday showed EF 40-45% with moderate to severe aortic stenosis. Creatinine mildly increased up to 2.6. He is receiving Lasix 80 mg IV twice a day. Still making urine. PHYSICAL EXAMINATION Vital signs reviewed. CONSTITUTIONAL: No apparent distress. HEENT: Head is normocephalic. Pupils are equal, round. Sclerae anicteric. Mucous membranes of the mouth are moist. No JVD. No carotid bruit. CHEST EXAMINATION: +Bilateral crackles HEART EXAMINATION: Regular rate and rhythm. S1, S2 heard. No murmurs, gallops or rub. ABDOMEN: Soft, nontender. Positive bowel sounds. EXTREMITIES: 2+ peripheral pulses, no lower extremity edema and no calf tenderness. NEUROLOGIC EXAMINATION: Patient is awake, alert and oriented x3. ASSESSMENT 1. Inferior STEMI s/p PCI RCA 2. Acute on chronic respiratory failure related to heart failure 3. Acute on chronic heart failure, systolic 4. Diabetes mellitus type 2 5. Hypertension 6. acute on chronic kidney disease 7. Moderate to severe aortic stenosis 8. Ischemic cardiomyopathy EF 40-45% 9. Shock likely main component of cardiogenic +/- other PLAN S/p PCI RCA with residual PDA thrombus, s/p heparin drip and Aggrastat. Continue diuresis as able and monitor Cr closely. Not overwhelming ca rdiomyopathy with relatively preserved EF 40-45%. Some of shock may be related to RV failure however no significant RV dilation noted on echo. Additionally has moderate to severe aortic stenosis. Continue to wean ventilator and vasopressors as able. Prognosis guarded. Objective - Vital Signs Vital signs: Vital Signs Temp 99.6 F 08/14/22 12:00 Pulse 111 H 08/14/22 15:45 Resp 26 H 08/14/22 15:45 BP 116/65 08/14/22 15:00 Pulse Ox 99 08/14/22 15:45 FiO2 50 08/14/22 15:30 Intake & Output 08/13/22 08/14/22 08/14/22 18:59 06:59 18:59 Intake Total 1125.200 852.133 335.978 Output Total 454 655 6401 Balance 827.200 257.133 -1334.022 Weight 101.5 kg 102.6 kg Intake: IV 260 220 280 0.9 KVO 260 220 160 Clindamycin 600 mg In 120 Dextrose 5% in Water 50 ml @ 50 mls/hr IVPB Q8HR JUANA Rx#:[id number] Intake, IV Titration 865.200 632.133 55.978 Amount Cisatracurium 200 mg In 42.630 99.774 Sodium Chloride 0.9% 180 ml @ 1 MCG/KG/MIN 6.09 mls/hr IV .Q24H JUANA Rx#: [id number] Clindamycin 600 mg In 100 Dextrose 5% in Water 50 ml @ 50 mls/hr IVPB Q8HR JUANA Rx#:[id number] Heparin Sod,Pork in 0.45% 78.8 135.252 NaCl 25,000 unit In 0.45 % NaCl 1 250ml.bag @ 9.91 UNITS/KG/HR 10.002 mls/ hr IV .Q24H JUANA Rx#: [id number] Insulin Regular 100 unit 96.562 8.296 53.621 In Sodium Chloride 0.9% 100 ml @ 0.1 UNITS/KG/HR 10.193 mls/hr IV .Q9H55M JUANA Rx#:[id number] Norepinephrine 8 mg In 159.411 102.942 2.357 Sodium Chloride 0.9% 250 ml @ 0.03 MCG/KG/MIN 5. 892 mls/hr IV .Q24H JUANA Rx#:[id number] Potassium Chloride 20 meq 200 In Water For Injection 1 100ml.bag @ 50 mls/hr IVPB Q2H JUANA Rx#: [id number] propofoL 1,000 mg In 187.797 285.869 Empty Bag 1 bag @ 30 MCG/ KG/MIN 18.27 mls/hr IV . Q5H29M JUANA Rx#:[id number] Output: Urine 282 613 5102 Other: Voiding Method Indwelling Catheter Indwelling Catheter Indwelling Catheter # Bowel Movements 0 ABP, PAP, CO, CI - Last Documented Arterial Blood Pressure 117/53 - Labs CBC & Chem 7: 08/14/22 07:50 08/14/22 07:50 Labs: Abnormal Lab Results - Last 24 Hours (Table) 08/13/22 08/13/22 08/13/22 Range/Units 10:10 16:55 17:52 WBC (3.8-10.6) k/uL RBC (4.30-5.90) m/uL Hgb (13.0-17.5) gm/dL Hct (39.0-53.0) % Neutrophils # (1.3-7.7) k/uL Lymphocytes # (1.0-4.8) k/uL APTT (22.0-30.0) sec ABG pO2 (83-108) mmHg Sodium (137-145) mmol/L Carbon Dioxide (22-30) mmol/L BUN (9-20) mg/dL Creatinine (0.66-1.25) mg/dL Glucose (74-99) mg/dL POC Glucose (mg/dL) 139 H 132 H (70-110) mg/dL Calcium (8.4-10.2) mg/dL Phosphorus (2.5-4.5) mg/dL Procalcitonin 1.92 H (0.02-0.09) ng/mL 08/13/22 08/13/22 08/13/22 Range/Units 18:55 20:04 20:06 WBC (3.8-10.6) k/uL RBC (4.30-5.90) m/uL Hgb (13.0-17.5) gm/dL Hct (39.0-53.0) % Neutrophils # (1.3-7.7) k/uL Lymphocytes # (1.0-4.8) k/uL APTT (22.0-30.0) sec ABG pO2 (83-108) mmHg Sodium 136 L (137-145) mmol/L Carbon Dioxide 20 L (22-30) mmol/L BUN 63 H (9-20) mg/dL Creatinine 2.68 H (0.66-1.25) mg/dL Glucose 155 H (74-99) mg/dL POC Glucose (mg/dL) 145 H 162 H (70-110) mg/dL Calcium 8.1 L (8.4-10.2) mg/dL Phosphorus 6.3 H (2.5-4.5) mg/dL Procalcitonin (0.02-0.09) ng/mL 08/13/22 08/13/22 08/13/22 Range/Units 21:07 22:03 23:00 WBC (3.8-10.6) k/uL RBC (4.30-5.90) m/uL Hgb (13.0-17.5) gm/dL Hct (39.0-53.0) % Neutrophils # (1.3-7.7) k/uL Lymphocytes # (1.0-4.8) k/uL APTT (22.0-30.0) sec ABG pO2 (83-108) mmHg Sodium (137-145) mmol/L Carbon Dioxide (22-30) mmol/L BUN (9-20) mg/dL Creatinine (0.66-1.25) mg/dL Glucose (74-99) mg/dL POC Glucose (mg/dL) 192 H 176 H 201 H (70-110) mg/dL Calcium (8.4-10.2) mg/dL Phosphorus (2.5-4.5) mg/dL Procalcitonin (0.02-0.09) ng/mL 08/14/22 08/14/22 08/14/22 Range/Units 00:00 00:00 00:03 WBC (3.8-10.6) k/uL RBC (4.30-5.90) m/uL Hgb (13.0-17.5) gm/dL Hct (39.0-53.0) % Neutrophils # (1.3-7.7) k/uL Lymphocytes # (1.0-4.8) k/uL APTT 51.3 H (22.0-30.0) sec ABG pO2 (83-108) mmHg Sodium 136 L (137-145) mmol/L Carbon Dioxide 20 L (22-30) mmol/L BUN 64 H (9-20) mg/dL Creatinine 2.64 H (0.66-1.25) mg/dL Glucose 204 H (74-99) mg/dL POC Glucose (mg/dL) 207 H (70-110) mg/dL Calcium 7.9 L (8.4-10.2) mg/dL Phosphorus 5.6 H (2.5-4.5) mg/dL Procalcitonin (0.02-0.09) ng/mL 08/14/22 08/14/22 08/14/22 Range/Units 01:07 02:09 03:31 WBC (3.8-10.6) k/uL RBC (4.30-5.90) m/uL Hgb (13.0-17.5) gm/dL Hct (39.0-53.0) % Neutrophils # (1.3-7.7) k/uL Lymphocytes # (1.0-4.8) k/uL APTT (22.0-30.0) sec ABG pO2 (83-108) mmHg Sodium (137-145) mmol/L Carbon Dioxide (22-30) mmol/L BUN (9-20) mg/dL Creatinine (0.66-1.25) mg/dL Glucose (74-99) mg/dL POC Glucose (mg/dL) 216 H 242 H 270 H (70-110) mg/dL Calcium (8.4-10.2) mg/dL Phosphorus (2.5-4.5) mg/dL Procalcitonin (0.02-0.09) ng/mL 08/14/22 08/14/22 08/14/22 Range/Units 04:21 05:25 05:49 WBC (3.8-10.6) k/uL RBC (4.30-5.90) m/uL Hgb (13.0-17.5) gm/dL Hct (39.0-53.0) % Neutrophils # (1.3-7.7) k/uL Lymphocytes # (1.0-4.8) k/uL APTT (22.0-30.0) sec ABG pO2 75 L (83-108) mmHg Sodium (137-145) mmol/L Carbon Dioxide (22-30) mmol/L BUN (9-20) mg/dL Creatinine (0.66-1.25) mg/dL Glucose (74-99) mg/dL POC Glucose (mg/dL) 276 H 276 H (70-110) mg/dL Calcium (8.4-10.2) mg/dL Phosphorus (2.5-4.5) mg/dL Procalcitonin (0.02-0.09) ng/mL 08/14/22 08/14/22 08/14/22 Range/Units 06:16 07:07 07:50 WBC 12.0 H (3.8-10.6) k/uL RBC 3.43 L (4.30-5.90) m/uL Hgb 10.6 L (13.0-17.5) gm/dL Hct 31.8 L (39.0-53.0) % Neutrophils # 10.1 H (1.3-7.7) k/uL Lymphocytes # 0.8 L (1.0-4.8) k/uL APTT (22.0-30.0) sec ABG pO2 (83-108) mmHg Sodium (137-145) mmol/L Carbon Dioxide (22-30) mmol/L BUN (9-20) mg/dL Creatinine (0.66-1.25) mg/dL Glucose (74-99) mg/dL POC Glucose (mg/dL) 271 H 238 H (70-110) mg/dL Calcium (8.4-10.2) mg/dL Phosphorus (2.5-4.5) mg/dL Procalcitonin (0.02-0.09) ng/mL 08/14/22 08/14/22 08/14/22 Range/Units 07:50 08:14 08:14 WBC (3.8-10.6) k/uL RBC (4.30-5.90) m/uL Hgb (13.0-17.5) gm/dL Hct (39.0-53.0) % Neutrophils # (1.3-7.7) k/uL Lymphocytes # (1.0-4.8) k/uL APTT (22.0-30.0) sec ABG pO2 (83-108) mmHg Sodium 136 L (137-145) mmol/L Carbon Dioxide 21 L (22-30) mmol/L BUN 65 H (9-20) mg/dL Creatinine 2.58 H (0.66-1.25) mg/dL Glucose 236 H (74-99) mg/dL POC Glucose (mg/dL) 261 H 261 H (70-110) mg/dL Calcium 7.7 L (8.4-10.2) mg/dL Phosphorus (2.5-4.5) mg/dL Procalcitonin (0.02-0.09) ng/mL 08/14/22 08/14/22 08/14/22 Range/Units 09:51 10:54 12:11 WBC (3.8-10.6) k/uL RBC (4.30-5.90) m/uL Hgb (13.0-17.5) gm/dL Hct (39.0-53.0) % Neutrophils # (1.3-7.7) k/uL Lymphocytes # (1.0-4.8) k/uL APTT (22.0-30.0) sec ABG pO2 (83-108) mmHg Sodium (137-145) mmol/L Carbon Dioxide (22-30) mmol/L BUN (9-20) mg/dL Creatinine (0.66-1.25) mg/dL Glucose (74-99) mg/dL POC Glucose (mg/dL) 265 H 232 H 196 H (70-110) mg/dL Calcium (8.4-10.2) mg/dL Phosphorus (2.5-4.5) mg/dL Procalcitonin (0.02-0.09) ng/mL 08/14/22 08/14/22 08/14/22 Range/Units 13:23 14:29 15:34 WBC (3.8-10.6) k/uL RBC (4.30-5.90) m/uL Hgb (13.0-17.5) gm/dL Hct (39.0-53.0) % Neutrophils # (1.3-7.7) k/uL Lymphocytes # (1.0-4.8) k/uL APTT (22.0-30.0) sec ABG pO2 (83-108) mmHg Sodium (137-145) mmol/L Carbon Dioxide (22-30) mmol/L BUN (9-20) mg/dL Creatinine (0.66-1.25) mg/dL Glucose (74-99) mg/dL POC Glucose (mg/dL) 153 H 159 H 134 H (70-110) mg/dL Calcium (8.4-10.2) mg/dL Phosphorus (2.5-4.5) mg/dL Procalcitonin (0.02-0.09) ng/mL 08/14/22 Range/Units 16:23 WBC (3.8-10.6) k/uL RBC (4.30-5.90) m/uL Hgb (13.0-17.5) gm/dL Hct (39.0-53.0) % Neutrophils # (1.3-7.7) k/uL Lymphocytes # (1.0-4.8) k/uL APTT (22.0-30.0) sec ABG pO2 (83-108) mmHg Sodium (137-145) mmol/L Carbon Dioxide (22-30) mmol/L BUN (9-20) mg/dL Creatinine (0.66-1.25) mg/dL Glucose (74-99) mg/dL POC Glucose (mg/dL) 130 H (70-110) mg/dL Calcium (8.4-10.2) mg/dL Phosphorus (2.5-4.5) mg/dL Procalcitonin (0.02-0.09) ng/mL Microbiology - Last 24 Hours (Table) 08/13/22 12:12 Gram Stain - Preliminary Sputum Sputum Culture - Preliminary
[2022-08-14 17:13] LABS: Glucose,Whole Blood 167 mg/dL (70-110)
[2022-08-14 18:56] LABS: Glucose,Whole Blood 158 mg/dL (70-110)
[2022-08-14 19:58] LABS: Glucose,Whole Blood 176 mg/dL (70-110)
[2022-08-14 21:01] LABS: Glucose,Whole Blood 161 mg/dL (70-110)
[2022-08-14 21:15] LABS: Calcium 7.8 mg/dL (8.4-10.2); Potassium 4.3 mmol/L (3.5-5.1)
[2022-08-14] MEDS: ATORVASTATIN 80 MG TAB PO SCH (21:46)
[2022-08-14 21:56] LABS: Glucose,Whole Blood 166 mg/dL (70-110)
[2022-08-14 23:06] LABS: Glucose,Whole Blood 197 mg/dL (70-110)
[2022-08-15 00:12] LABS: Glucose,Whole Blood 204 mg/dL (70-110)
[2022-08-15 01:16] LABS: Glucose,Whole Blood 220 mg/dL (70-110)
[2022-08-15 01:55] LABS: Glucose,Whole Blood 236 mg/dL (70-110)
[2022-08-15 03:12] LABS: Glucose,Whole Blood 243 mg/dL (70-110)
[2022-08-15 03:41] LABS: Calcium 7.7 mg/dL (8.4-10.2); Potassium 4.1 mmol/L (3.5-5.1)
[2022-08-15] MEDS: NOREPINEPHRINE 8 MG in SODIUM CHLORIDE 0.9% 250 ML IV SCH (04:15)
[2022-08-15 04:20] LABS: Glucose,Whole Blood 243 mg/dL (70-110)
[2022-08-15 05:06] LABS: Glucose,Whole Blood 240 mg/dL (70-110)
[2022-08-15 05:55] LABS: ABG Base Excess 0.8 mmol/L; ABG HCO3 25 mmol/L (21-25); ABG Oxygen Saturation 97.2 % (94-97); ABG PCO2 39 mmHg (35-45); ABG PH 7.42 (7.35-7.45); ABG PO2 82 mmHg (83-108); ABG TCO2 26 mmol/L (19-24)
[2022-08-15 06:02] LABS: Glucose,Whole Blood 261 mg/dL (70-110)
[2022-08-15 06:21] LABS: Basophils % (A) 0 %; Eosinophils # (A) 0.1 k/uL (0-0.7); Eosinophils % (A) 1 %; HCT 30.8 % (39.0-53.0); HGB 10.2 gm/dL (13.0-17.5); Lymphocytes # (A) 0.7 k/uL (1.0-4.8); Lymphocytes % (A) 6 %; MCH 30.8 pg (25.0-35.0); MCHC 33.1 g/dL (31.0-37.0); Mean Platelet Volume 8.9; Monocytes # (A) 0.7 k/uL (0-1.0); Monocytes % (A) 6 %; Neutrophils # (A) 10.8 k/uL (1.3-7.7); Neutrophils % (A) 87 %; Platelet Count 292 k/uL (150-450); RBC 3.32 m/uL (4.30-5.90); RDW 13.7 % (11.5-15.5); WBC 12.5 k/uL (3.8-10.6)
--- NOTE | 2022-08-15 06:49 | XR ---
EXAMINATION TYPE: XR chest 1V portable DATE OF EXAM: 08/15/2022 CLINICAL HISTORY: Difficulty breathing progress study. Admitted for myocardial infarction 2 days ear lier. TECHNIQUE: Single AP portable semiupright view of the chest is obtained. COMPARISON: Chest x-ray from one day earlier and older studies. FINDINGS: Stable endotracheal and orogastric tubes. Persistent right lung increased opacity is greatest mid to lower lung level. Left lung remains clear. Cardiac silhouette size stable and upper limits of normal. Osseous structures are intact. IMPRESSION: Persistent right lung edema and/or infiltrates. No significant change from one day degar irwin
[2022-08-15 07:08] LABS: Glucose,Whole Blood 244 mg/dL (70-110)
[2022-08-15 07:43] LABS: Albumin 2.7 g/dL (3.5-5.0); Calcium 7.7 mg/dL (8.4-10.2); Total Bilirubin 0.8 mg/dL (0.2-1.3); Total Protein 5.1 g/dL (6.3-8.2)
[2022-08-15] MEDS: CHLORHEXIDINE GLUCONATE 15 ML CUP MUCOUS MEM SCH ×2 (07:43→20:37)
[2022-08-15] MEDS: TICAGRELOR 90 MG TAB PO SCH ×2 (07:43→20:37)
[2022-08-15] MEDS: FUROSEMIDE 10 MG/ML 10 ML VIAL IV SCH ×2 (07:44→20:37)
[2022-08-15] MEDS: ASPIRIN 81 MG PO SCH (07:44)
[2022-08-15] MEDS: NYSTATIN 100,000UNIT/GM CREAM 30 GM TUBE TOPICAL SCH ×2 (07:45→20:39)
[2022-08-15 08:04] LABS: Glucose,Whole Blood 257 mg/dL (70-110)
[2022-08-15 09:11] LABS: Glucose,Whole Blood 257 mg/dL (70-110)
[2022-08-15] MEDS: ARTIFICIAL TEARS-HYPROMELLOSE DROPS 15 ML BTL BOTH EYES SCH ×6 (09:19→20:39)
[2022-08-15] MEDS: HEPARIN SOD,PORK IN 0.45% NACL 25,000 UNIT in 0.45% NACL 1 250ML.BAG IV SCH (09:19)
[2022-08-15] MEDS: CISATRACURIUM 200 MG in SODIUM CHLORIDE 0.9% 180 ML IV SCH (09:22)
[2022-08-15] MEDS: METOPROLOL TARTRATE 12.5 MG TAB PO SCH ×2 (09:24→20:37)
[2022-08-15] MEDS: CLINDAMYCIN 600 MG in DEXTROSE 5% IN WATER 50 ML IVPB SCH ×6 (09:24→16:53)
[2022-08-15] MEDS ORDERED: INSULIN ASPART (NovoLOG) 100 UNIT/ML VIAL SQ SCH ×2 (10:15→12:30)
--- NOTE | 2022-08-15 10:27 | P.PN ---
Subjective Progress Note Date: 08/15/22 Principal diagnosis: Respiratory failure. This is a 67-year-old white male with history of problems including asthma, diabetes, degenerative joint disease, patient was brought into the ER yesterday with mostly sudden onset of shortness of breath and chest pain. Patient was in extreme respiratory distress upon arrival to the ER, he was placed on BiPAP initially, and he continued to have significant dyspnea. Patient was intubated by the ER physician, workup showed evidence of acute inferior ST elevation myocardial infarction. Patient was seen by cardiology on consultation, and he underwent cardiac catheterization and stenting of the RCA which was totally occluded. In the meantime the patient was noted to have extensive pulmonary edema, acute hypoxic respiratory failure secondary to pulmonary edema, underlying pneumonia is not entirely ruled out but felt to be less likely. Nonetheless the patient will be covered empirically with antibiotics for presumptive aspiration pneumonia since significant airspace disease is noted in the right lung compared to the left lung. I saw this patient this morning, patient is intubated and mechanically ventilated, he is on assist control rate of 20, FiO2 was 100% I cut it down to 80%, he had tidal volume of 500, PEEP was at 14. As soon as I evaluated the patient, clearly the patient was not synchronous with mechanical ventilation, hence I recommended increasing his propofol to 75 mcg/kg/m, patient continued to remain asynchronous with the ventilator, and he seems to be working quite hard at it. Then I recommended sta rting the patient on Nimbex and start a Nimbex drip. ABG done later showed a pO2 of 125 pCO2 51 pH of 7.4, hence I increased the rate from 20-26. Another ABG is pending. Patient is requiring norepinephrine at 0.1 mcg/kg/m, he is also on insulin drip for what seems to be in DKA picture. His IV fluid at 20 mL per hour. Patient is now on Nimbex and on Lasix 40 mg IV push every 8 hours, and I added clindamycin empirically. Patient is ALLERGIC to penicillin. Patient had no good venous access when I arrived to see the patient this morning, hence on emergency basis I established a left femoral triple-lumen catheter, and a left radial arterial line. His echocardiogram showed ejection fraction of 40-45%. Patient is on Aggrastat, and he was on heparin earlier with a PTT over 200. Hence I recommended a groin access rather than having a neck or subclavian access after obtaining the ABG, I cut down his FiO2 down to 65%. Looking at the labs, apparently the patient sustained a acute kidney injury, BUN is 60 creatinine 2.38. His creatinine on admission was 1.97, I believe this is mostly related to hypoperfusion as well as related to his cardiac catheterization/contrast media. Reevaluated today on 08/14/22, patient remains in the ICU, remains intubated and mechanically ventilated. Remains on propofol and Nimbex. His ventilator settings are assist control rate of 26 FiO2 50% and PEEP of 12 and I cut it down to 10 tidal volume of 500. ABG this morning showed a pO2 of 75 pCO2 of 41 pH of 7.39. Hence no change was made except cutting down the PEEP from 12-10. Chest x-ray is showing definite improvement in his pulmonary edema but nonetheless continues to have significant interstitial edema especially in the right lung. His urine output is picking up nicely in spite of the fact that the patient is requiring norepinephrine at 0.1 mcg/kg/m. Patient is on Nimbex at 1 mcg/kg/m, propofol 40 mcg/kg/m, and he is on insulin drip at 4.25 units per hour. After reviewing his chest x-ray and reviewing his ABG, I felt it would be best to keep the patient sedated and paralyzed for now. Not much room to start weaning. His urine output is picking up nicely, and that would be helpful for further weaning as his pulmonary edema starts improving. WBC count today is 12 hemoglobin is 10.6. Blood sugar is 232. PTT is 51.3. And his BUN is 64 creatinine is down to 2.58 from 2.68 yesterday. His troponin yesterday was 3.39 and his BNP level was 11,200 Progress note dated 08/15/2022. This is a 67-year-old male who was admitted on August 13, the diagnoses of ST segment elevation myocardial infarction, diabetic ketoacidosis, and CHF. The patient was intubated on August 13. He went to the catheterization laboratory and had a stent placed in the right coronary artery. He remains on mechanical ventilator. He is currently on by volume assist control, rate 26, tidal volume 500, FiO2 50%, and PEEP of 10. Blood gases show pO2 of 82, pCO2 39, and a pH is 7.42. The patient remains on propofol at 40 mcg/kg/m, insulin at 3.5 units an hour, Nimbex at 2 mcg/kg/m, with [id number] monitoring, saline at 20 mL an hour, and Nepro tube feedings at 10 mL an hour. White count 12.5, hemoglobin 10.2, hematocrit 30.8, and platelet count 292,000. Sodium 141, potassium 4, c hloride 109, CO2 25, BUN 64, creatinine 2.03. Chest x-ray shows persistent right lung infiltrate and/or edema. Chest x-ray is unchanged. Objective - Vital Signs Vital signs: Vital Signs Temp 98.2 F 08/15/22 08:00 Pulse 101 H 08/15/22 10:00 Resp 26 H 08/15/22 10:00 BP 96/57 08/15/22 10:00 Pulse Ox 98 08/15/22 10:00 FiO2 50 08/15/22 08:45 Intake & Output 08/14/22 08/15/22 08/15/22 18:59 06:59 18:59 Intake Total 654.702 733.186 459.655 Output Total 1905 1655 446 Balance -1250.298 -921.814 13.655 Intake: IV 320 315 80 0.9 KVO 200 240 80 Clindamycin 600 mg In 120 75 Dextrose 5% in Water 50 ml @ 50 mls/hr IVPB Q8HR JUANA Rx#:[id number] Intake, IV Titration 334.702 418.186 379.655 Amount Cisatracurium 200 mg In 182.497 Sodium Chloride 0.9% 180 ml @ 1 MCG/KG/MIN 6.09 mls/hr IV .Q24H JUANA Rx#: [id number] Clindamycin 600 mg In 50 50 Dextrose 5% in Water 50 ml @ 50 mls/hr IVPB Q8HR JUANA Rx#:[id number] Insulin Regular 100 unit 53.621 20.845 8.261 In Sodium Chloride 0.9% 100 ml @ 0.1 UNITS/KG/HR 10.193 mls/hr IV .Q9H55M JUANA Rx#:[id number] Norepinephrine 8 mg In 181.081 82.223 52.013 Sodium Chloride 0.9% 250 ml @ 0.03 MCG/KG/MIN 5. 892 mls/hr IV .Q24H JUANA Rx#:[id number] propofoL 1,000 mg In 100 265.118 86.884 Empty Bag 1 bag @ 30 MCG/ KG/MIN 18.27 mls/hr IV . Q5H29M JUANA Rx#:[id number] Output: Urine 1905 1655 446 Other: Voiding Method Indwelling Catheter Indwelling Catheter Indwelling Catheter ABP, PAP, CO, CI - Last Documented Arterial Blood Pressure 106/53 - Exam No acute distress, sedated, and paralyzed, with an orally placed endotracheal tube. HEENT examination is grossly unremarkable. Neck supple. Full range of motion. No adenopathy thyromegaly or neck vein distention. Cardiovascular examination reveals regular rhythm rate. S1-S2 normal. No S3 or S4. No discernible murmur noted. Heart sounds are distant. Heart rate 101 beats a minute. Lungs reveal scattered bilateral rhonchi. No wheezes. No distinct crackles. Breath sounds equal. Saturations 98%. Abdomen soft bowel sounds are heard. No masses or tenderness. Extremities are intact. No cyanosis clubbing or edema. Skin is without rash or lesion. Neurologic examination cannot be adequately assessed at this time. - Labs CBC & Chem 7: 08/15/22 06:14 08/15/22 07:00 Labs: Abnormal Lab Results - Last 24 Hours (Table) 08/14/22 08/14/22 08/14/22 Range/Units 07:50 10:54 12:11 WBC (3.8-10.6) k/uL RBC (4.30-5.90) m/uL Hgb (13.0-17.5) gm/dL Hct (39.0-53.0) % Neutrophils # (1.3-7.7) k/uL Lymphocytes # (1.0-4.8) k/uL ABG pO2 (83-108) mmHg ABG Total CO2 (19-24) mmol/L ABG O2 Saturation (94-97) % Sodium 136 L (137-145) mmol/L Chloride (98-107) mmol/L Carbon Dioxide 21 L (22-30) mmol/L BUN 65 H (9-20) mg/dL Creatinine 2.58 H (0.66-1.25) mg/dL Glucose 236 H (74-99) mg/dL POC Glucose (mg/dL) 232 H 196 H (70-110) mg/dL Calcium 7.7 L (8.4-10.2) mg/dL Phosphorus (2.5-4.5) mg/dL Total Protein (6.3-8.2) g/dL Albumin (3.5-5.0) g/dL 08/14/22 08/14/22 08/14/22 Range/Units 13:23 14:29 15:34 WBC (3.8-10.6) k/uL RBC (4.30-5.90) m/uL Hgb (13.0-17.5) gm/dL Hct (39.0-53.0) % Neutrophils # (1.3-7.7) k/uL Lymphocytes # (1.0-4.8) k/uL ABG pO2 (83-108) mmHg ABG Total CO2 (19-24) mmol/L ABG O2 Saturation (94-97) % Sodium (137-145) mmol/L Chloride (98-107) mmol/L Carbon Dioxide (22-30) mmol/L BUN (9-20) mg/dL Creatinine (0.66-1.25) mg/dL Glucose (74-99) mg/dL POC Glucose (mg/dL) 153 H 159 H 134 H (70-110) mg/dL Calcium (8.4-10.2) mg/dL Phosphorus (2.5-4.5) mg/dL Total Protein (6.3-8.2) g/dL Albumin (3.5-5.0) g/dL 08/14/22 08/14/22 08/14/22 Range/Units 16:23 17:13 18:54 WBC (3.8-10.6) k/uL RBC (4.30-5.90) m/uL Hgb (13.0-17.5) gm/dL Hct (39.0-53.0) % Neutrophils # (1.3-7.7) k/uL Lymphocytes # (1.0-4.8) k/uL ABG pO2 (83-108) mmHg ABG Total CO2 (19-24) mmol/L ABG O2 Saturation (94-97) % Sodium (137-145) mmol/L Chloride (98-107) mmol/L Carbon Dioxide (22-30) mmol/L BUN (9-20) mg/dL Creatinine (0.66-1.25) mg/dL Glucose (74-99) mg/dL POC Glucose (mg/dL) 130 H 167 H 158 H (70-110) mg/dL Calcium (8.4-10.2) mg/dL Phosphorus (2.5-4.5) mg/dL Total Protein (6.3-8.2) g/dL Albumin (3.5-5.0) g/dL 08/14/22 08/14/22 08/14/22 Range/Units 19:57 19:58 21:00 WBC (3.8-10.6) k/uL RBC (4.30-5.90) m/uL Hgb (13.0-17.5) gm/dL Hct (39.0-53.0) % Neutrophils # (1.3-7.7) k/uL Lymphocytes # (1.0-4.8) k/uL ABG pO2 (83-108) mmHg ABG Total CO2 (19-24) mmol/L ABG O2 Saturation (94-97) % Sodium (137-145) mmol/L Chloride (98-107) mmol/L Carbon Dioxide (22-30) mmol/L BUN 60 H (9-20) mg/dL Creatinine 2.14 H (0.66-1.25) mg/dL Glucose 167 H (74-99) mg/dL POC Glucose (mg/dL) 176 H 161 H (70-110) mg/dL Calcium 7.8 L (8.4-10.2) mg/dL Phosphorus (2.5-4.5) mg/dL Total Protein (6.3-8.2) g/dL Albumin (3.5-5.0) g/dL 08/14/22 08/14/22 08/15/22 Range/Units 21:54 23:04 00:10 WBC (3.8-10.6) k/uL RBC (4.30-5.90) m/uL Hgb (13.0-17.5) gm/dL Hct (39.0-53.0) % Neutrophils # (1.3-7.7) k/uL Lymphocytes # (1.0-4.8) k/uL ABG pO2 (83-108) mmHg ABG Total CO2 (19-24) mmol/L ABG O2 Saturation (94-97) % Sodium (137-145) mmol/L Chloride (98-107) mmol/L Carbon Dioxide (22-30) mmol/L BUN (9-20) mg/dL Creatinine (0.66-1.25) mg/dL Glucose (74-99) mg/dL POC Glucose (mg/dL) 166 H 197 H 204 H (70-110) mg/dL Calcium (8.4-10.2) mg/dL Phosphorus (2.5-4.5) mg/dL Total Protein (6.3-8.2) g/dL Albumin (3.5-5.0) g/dL 08/15/22 08/15/22 08/15/22 Range/Units 01:14 01:53 03:11 WBC (3.8-10.6) k/uL RBC (4.30-5.90) m/uL Hgb (13.0-17.5) gm/dL Hct (39.0-53.0) % Neutrophils # (1.3-7.7) k/uL Lymphocytes # (1.0-4.8) k/uL ABG pO2 (83-108) mmHg ABG Total CO2 (19-24) mmol/L ABG O2 Saturation (94-97) % Sodium (137-145) mmol/L Chloride (98-107) mmol/L Carbon Dioxide (22-30) mmol/L BUN 62 H (9-20) mg/dL Creatinine 1.95 H (0.66-1.25) mg/dL Glucose 238 H (74-99) mg/dL POC Glucose (mg/dL) 220 H 236 H (70-110) mg/dL Calcium 7.7 L (8.4-10.2) mg/dL Phosphorus (2.5-4.5) mg/dL Total Protein (6.3-8.2) g/dL Albumin (3.5-5.0) g/dL 08/15/22 08/15/22 08/15/22 Range/Units 03:11 04:18 05:04 WBC (3.8-10.6) k/uL RBC (4.30-5.90) m/uL Hgb (13.0-17.5) gm/dL Hct (39.0-53.0) % Neutrophils # (1.3-7.7) k/uL Lymphocytes # (1.0-4.8) k/uL ABG pO2 (83-108) mmHg ABG Total CO2 (19-24) mmol/L ABG O2 Saturation (94-97) % Sodium (137-145) mmol/L Chloride (98-107) mmol/L Carbon Dioxide (22-30) mmol/L BUN (9-20) mg/dL Creatinine (0.66-1.25) mg/dL Glucose (74-99) mg/dL POC Glucose (mg/dL) 243 H 243 H 240 H (70-110) mg/dL Calcium (8.4-10.2) mg/dL Phosphorus (2.5-4.5) mg/dL Total Protein (6.3-8.2) g/dL Albumin (3.5-5.0) g/dL 08/15/22 08/15/22 08/15/22 Range/Units 05:51 06:01 06:14 WBC 12.5 H (3.8-10.6) k/uL RBC 3.32 L (4.30-5.90) m/uL Hgb 10.2 L (13.0-17.5) gm/dL Hct 30.8 L (39.0-53.0) % Neutrophils # 10.8 H (1.3-7.7) k/uL Lymphocytes # 0.7 L (1.0-4.8) k/uL ABG pO2 82 L (83-108) mmHg ABG Total CO2 26 H (19-24) mmol/L ABG O2 Saturation 97.2 H (94-97) % Sodium (137-145) mmol/L Chloride (98-107) mmol/L Carbon Dioxide (22-30) mmol/L BUN (9-20) mg/dL Creatinine (0.66-1.25) mg/dL Glucose (74-99) mg/dL POC Glucose (mg/dL) 261 H (70-110) mg/dL Calcium (8.4-10.2) mg/dL Phosphorus (2.5-4.5) mg/dL Total Protein (6.3-8.2) g/dL Albumin (3.5-5.0) g/dL 08/15/22 08/15/22 08/15/22 Range/Units 07:00 07:06 08:02 WBC (3.8-10.6) k/uL RBC (4.30-5.90) m/uL Hgb (13.0-17.5) gm/dL Hct (39.0-53.0) % Neutrophils # (1.3-7.7) k/uL Lymphocytes # (1.0-4.8) k/uL ABG pO2 (83-108) mmHg ABG Total CO2 (19-24) mmol/L ABG O2 Saturation (94-97) % Sodium (137-145) mmol/L Chloride 109 H (98-107) mmol/L Carbon Dioxide (22-30) mmol/L BUN 64 H (9-20) mg/dL Creatinine 2.03 H (0.66-1.25) mg/dL Glucose 243 H (74-99) mg/dL POC Glucose (mg/dL) 244 H 257 H (70-110) mg/dL Calcium 7.7 L (8.4-10.2) mg/dL Phosphorus 5.0 H (2.5-4.5) mg/dL Total Protein 5.1 L (6.3-8.2) g/dL Albumin 2.7 L (3.5-5.0) g/dL 08/15/22 Range/Units 09:08 WBC (3.8-10.6) k/uL RBC (4.30-5.90) m/uL Hgb (13.0-17.5) gm/dL Hct (39.0-53.0) % Neutrophils # (1.3-7.7) k/uL Lymphocytes # (1.0-4.8) k/uL ABG pO2 (83-108) mmHg ABG Total CO2 (19-24) mmol/L ABG O2 Saturation (94-97) % Sodium (137-145) mmol/L Chloride (98-107) mmol/L Carbon Dioxide (22-30) mmol/L BUN (9-20) mg/dL Creatinine (0.66-1.25) mg/dL Glucose (74-99) mg/dL POC Glucose (mg/dL) 257 H (70-110) mg/dL Calcium (8.4-10.2) mg/dL Phosphorus (2.5-4.5) mg/dL Total Protein (6.3-8.2) g/dL Albumin (3.5-5.0) g/dL Microbiology - Last 24 Hours (Table) 08/13/22 12:12 Gram Stain - Preliminary Sputum Sputum Culture - Preliminary Assessment and Plan Assessment: Acute hypoxemic respiratory failure, secondary to acute systolic CHF, pulmonary edema, ischemic cardiomyopathy, and acute ST segment elevation myocardial infarction. Status post intubation and mechanical ventilation, on 08/13/2022. Status post stent placement, right coronary artery, 08/13/2022. Possible aspiration pneumonia. Acute diabetic ketoacidosis. Acute kidney injury. History of asthma. Degenerative joint disease. Fungal dermatitis, involving the right groin area. Plan: Plan dated 08/15/2022. The patient's insulin drip can be discontinued. The patient's sugar is better control, to gap is closed, and the bicarbonate concentration is in normal range. We'll put the patient on NovoLog sliding scale, every 6 hours. Also, we added updrafts treatments, and we will attempt to get the patient off of Nimbex. Labs, x-rays, and medications are reviewed. We will continue to follow make r ecommendations along the way. Prognosis is guarded. Time with Patient: Greater than 30
[2022-08-15] MEDS: INSULIN DETEMIR (LEVEMIR) 100 UNIT/ML SYR SQ SCH (10:55)
[2022-08-15 11:33] LABS: Glucose,Whole Blood 265 mg/dL (70-110)
[2022-08-15] MEDS: INSULIN ASPART (NovoLOG) 100 UNIT/ML VIAL SQ SCH ×6 (11:36→23:59)
--- NOTE | 2022-08-15 12:04 | PN ---
PROGRESS NOTE SUBJECTIVE: This is a gentleman, who is still on a ventilator. He had an inferior ST-elevation PR, underwent PCI of mid RCA with aspiration thrombectomy and penumbra device. He has had a 3.0 caliber Xience stent placed. The patient is still on a ventilator. His blood pressure is making a modest progress. He is currently off Levophed. We will try a small dose of metoprolol tartrate 12.5 mg b.i.d. He was in a first-degree AV block, but heart rate is in the 90s. Hopefully, we will watch the IN interval and give him 1 dose of beta olga lidia. Continue incentive spirometry. Overall, prognosis remains guarded. This patient has history of diabetes, hypertension, hyperlipidemia, came with inferior ST-elevation PR, underwent intubation in the ER and still remains on a vent. Prognosis remains guarded. OBJECTIVE: HEART: S1, S2 heard normally. Short systolic murmur noted. LUNGS: Revealed a diminished air entry, ventilator assisted. ABDOMEN: Soft. LOWER EXTREMITIES: Reveal diminished pulses. CENTRAL NERVOUS SYSTEM: Assessment was not performed. MMODL / IJN: [id number] /
[2022-08-15] MEDS: IPRATROPIUM-ALBUTEROL 3 ML NEB INHALATION SCH ×3 (12:58→20:55)
[2022-08-15 14:55] LABS: Glucose,Whole Blood 226 mg/dL (70-110)
[2022-08-15 15:36] LABS: Calcium 7.8 mg/dL (8.4-10.2); Magnesium 2.4 mg/dL (1.6-2.3); Potassium 3.9 mmol/L (3.5-5.1)
[2022-08-15] MEDS ORDERED: POTASSIUM BICARBONATE/CIT AC 20 MEQ TABLET.EFF PO ONE (16:47)
--- NOTE | 2022-08-15 17:27 | P.PN ---
Subjective Progress Note Date: 08/15/22 (delayed charting seen at 1015) Patient is a 63-year-old male with history of diabetes mellitus type 2, [id number] with neuropathy, asthma, and osteoarthritis who presented to the emergency department with chest pain and shortness of breath. In the ER he underwent an extensive evaluation. He required BiPAP secondary to tachypnea. An EKG was obtained in the emergency department which shows ST segment elevation inferior with reciprocal changes and poor R-wave progression. Patient needed to have worsening respiratory distress and required intubation in the ER. He was emergently taken to labor mediator and had PCI performed to the RCA. He did not have return of flow to the PDA despite thrombectomy and cardiology recommended an additional 12 hours of Aggrastat and heparin for 24. He was found to have diffuse edema on his chest x-ray on vent settings are consistent with ARDS. Initial laboratory analysis also demonstrated hyperglycemia with a blood sugar of 636, patient was acetone positive and therefore diagnosed with DKA. Due to his vent settings and diffuse pulmonary edema he was started on an insulin drip but was not provided with fluid resuscitation as was requiring a PEEP of 14 and an FiO2 of 100% on the vent. Patient seen and examined at bedside. He is sedated on the vent and is unresponsive. No acute events overnight General: :, no distress, appears at stated age Derm: warm, dry Head: atraumatic, normocephalic, symmetric Eyes: PERRL, no lid lesion anicteric sclera Mouth: no lip lesion, mucus membranes moist Cardiovascular: S1S2 irreg, no murmur, positive posterior tibial pulse bilateral, Lungs: Course bs bilateral, no rhonchi, no rales , no accessory muscle use Abdominal: soft, nontender to palpation, no guarding, no appreciable organomeg daria Ext: no gross muscle atrophy, no edema, no contractures Neuro: breathing over vent, + cough, PERRL Psych: sedated on vent Assessment/plan: Acute inferior ST segment elevated myocardial infarction Moderate to severe aortic stenosis Severe Pum HTN RVSP 50 Cardiogenic shock Severe ARDS / diffuse pulmonary edema likely secondary to cardiogenic shock PaO2 to FiO2 < 100 on admission -Cardiology recommendations. Continue with aspirin, Brillenta, Lipitor - started on metoprolol today, if BP can tolerated ideally ACEI and aldactone will be added -Pulm recs - Lasix - Strict I and O - Daily weights Haemophillus PNA - stop Clinda, start rocephin - pulm recs RASHMI - nephrology recs - IVF - Avid nephrotoxic agents - nonobstructing calculi vs angiomyolipoma right upper pole DM 2 with hyperglycemia with neuropathy DKA resolved - stop insulin gtt - Levimir 20 units, Novolog 6 q6 + sliding scale - hold metformin and Glucotrol Chronic: Asthma OA Eczema DVT prophylaxis: heparin gtt Discussed with: nursing Anticipated discharge: pending clinical course Anticipated discharge place: pending clinical course A total of 45 minutes was spent on the care of this complex patient more than 50% of the time was spent in counseling and care coordination. Active Medications Generic Name Dose Route Start Last Admin Trade Name Freq PRN Reason Stop Dose Admin Acetaminophen 650 mg 08/13/22 04:00 Acetaminophen Suppository 650 Mg Supp RECTAL Q4HR PRN Fever And/ Or Mild Pain Albuterol/Ipratropium 3 ml 08/15/22 12:00 08/15/22 16:40 Ipratropium-Albuterol 3 Ml Neb INHALATION 3 ml RT-Q4H JUANA Administration Artificial Tears 2 drops 08/13/22 12:00 08/15/22 16:50 Artificial Tears-Hypromellose Drops 15 Ml Btl BOTH EYES 2 drops Q4HR JUANA Administration Aspirin 81 mg 08/13/22 09:00 08/15/22 07:44 Aspirin 81 Mg PO 81 mg DAILY JUANA Administration Atorvastatin Calcium 80 mg 08/13/22 21:00 08/14/22 21:46 Atorvastatin 80 Mg Tab PO 80 mg HS JUANA Administration Chlorhexidine Gluconate 15 ml 08/13/22 09:00 08/15/22 07:43 Chlorhexidine Gluconate 15 Ml Cup MUCOUS MEM 15 ml BID JUANA Administration Furosemide 80 mg 08/13/22 21:00 08/15/22 07:44 Furosemide 10 Mg/Ml 10 Ml Vial IV 80 mg Q12HR JUANA Administration Heparin Sodium (Porcine) 0 unit 08/13/22 02:56 08/13/22 18:31 Heparin Sodium 1,000 Un/Ml (10ml Vl) IV 5,075 unit PER PROTOCOL PRN Administration Low PTT Protocol Heparin Sodium/Sodium Chloride 250 mls @ 10.002 mls/hr 08/13/22 03:00 08/15/22 09:19 25,000 unit/ Sodium Chloride IV Not Given .Q24H JUANA Protocol 9.91 UNITS/KG/HR Propofol 1,000 mg/ IV Solution 100 mls @ 18.27 mls/hr 08/13/22 03:30 08/15/22 16:53 IV 40 mcg/kg/min .Q5H29M JUANA 24.36 mls/hr Administration Protocol 30 MCG/KG/MIN Norepinephrine Bitartrate 8 mg 258 mls @ 5.892 mls/hr 08/13/22 07:45 08/15/22 09:21 / Sodium Chloride IV 0 mcg/kg/min .Q24H JUANA 0 mls/hr Titration Protocol 0.03 MCG/KG/MIN Cisatracurium Besylate 200 mg/ 200 mls @ 6.09 mls/hr 08/13/22 09:30 08/15/22 09:22 Sodium Chloride IV Not Given .Q24H JUANA Protocol 1 MCG/KG/MIN Ceftriaxone Sodium 2 gm/ 50 mls @ 100 mls/hr 08/15/22 17:15 Sodium Chloride IVPB Q24HR [facility] Protocol Insulin Aspart 6 unit 08/15/22 12:00 08/15/22 11:36 Insulin Aspart (Novolog) 100 Unit/Ml Vial SQ 6 unit Q6HR JUANA Administration Insulin Aspart 0 unit 08/15/22 12:00 08/15/22 11:37 Insulin Aspart (Novolog) 100 Unit/Ml Vial SQ 9 unit Q6H JUANA Administration Protocol Insulin Detemir 20 unit 08/15/22 10:30 08/15/22 10:55 Insulin Detemir (Levemir) 100 Unit/Ml Syr SQ 20 unit DAILY@0700 [facility] Administration Metoprolol Tartrate 12.5 mg 08/15/22 09:00 08/15/22 09:24 Metoprolol Tartrate 12.5 Mg Tab PO 12.5 mg BID JUANA Administration Miscellaneous Information 1 each 08/13/22 03:31 Magnesium Replacement Protocol 1 Each Misc MISCELLANE DAILY PRN Per Protocol Protocol Miscellaneous Information 1 each 08/13/22 16:39 Potassium Replacement Protocol 1 Each Misc MISCELLANE DAILY PRN Per Protocol Protocol Naloxone HCl 0.2 mg 08/13/22 01:43 Naloxone 0.4 Mg/Ml 1 Ml Vial IV Q2M PRN Opioid Reversal Nystatin 1 applic 08/13/22 12:30 08/15/22 07:45 Nystatin 100,000unit/Gm Cream 30 Gm Tube TOPICAL 1 applic BID [facility] Administration Ticagrelor 90 mg 08/13/22 09:00 08/15/22 07:43 Ticagrelor 90 Mg Tab PO 90 mg BID JUANA Administration Protocol Objective - Vital Signs Vital signs: Vital Signs Temp 98.3 F 08/15/22 16:00 Pulse 90 08/15/22 16:54 Resp 0 L 08/15/22 16:00 BP 108/58 08/15/22 16:00 Pulse Ox 98 08/15/22 16:00 FiO2 50 08/15/22 16:34 Intake & Output 08/14/22 08/15/22 08/15/22 18:59 06:59 18:59 Intake Total 654.702 733.186 706.857 Output Total 1905 1655 776 Balance -1250.298 -921.814 -69.143 Weight 102.6 kg Intake: IV 320 315 200 0.9 KVO 200 240 200 Clindamycin 600 mg In 120 75 Dextrose 5% in Water 50 ml @ 50 mls/hr IVPB Q8HR [facility] Rx#:[id number] Intake, IV Titration 334.702 418.186 506.857 Amount Cisatracurium 200 mg In 182.497 Sodium Chloride 0.9% 180 ml @ 1 MCG/KG/MIN 6.09 mls/hr IV .Q24H JUANA Rx#: [id number] Clindamycin 600 mg In 50 50 Dextrose 5% in Water 50 ml @ 50 mls/hr IVPB Q8HR JUANA Rx#:[id number] Insulin Regular 100 unit 53.621 20.845 8.261 In Sodium Chloride 0.9% 100 ml @ 0.1 UNITS/KG/HR 10.193 mls/hr IV .Q9H55M JUANA Rx#:[id number] Norepinephrine 8 mg In 181.081 82.223 52.013 Sodium Chloride 0.9% 250 ml @ 0.03 MCG/KG/MIN 5. 892 mls/hr IV .Q24H JUANA Rx#:[id number] propofoL 1,000 mg In 100 265.118 214.086 Empty Bag 1 bag @ 30 MCG/ KG/MIN 18.27 mls/hr IV . Q5H29M [facility] Rx#:[id number] Output: Urine 2975 9369 796 Other: Voiding Method Indwelling Catheter Indwelling Catheter Indwelling Catheter ABP, PAP, CO, CI - Last Documented Arterial Blood Pressure 92/45 - Labs CBC & Chem 7: 08/15/22 06:14 08/15/22 15:00 Labs: Abnormal Lab Results - Last 24 Hours (Table) 08/14/22 08/14/22 08/14/22 Range/Units 18:54 19:57 19:58 WBC (3.8-10.6) k/uL RBC (4.30-5.90) m/uL Hgb (13.0-17.5) gm/dL Hct (39.0-53.0) % Neutrophils # (1.3-7.7) k/uL Lymphocytes # (1.0-4.8) k/uL ABG pO2 (83-108) mmHg ABG Total CO2 (19-24) mmol/L ABG O2 Saturation (94-97) % Chloride (98-107) mmol/L BUN 60 H (9-20) mg/dL Creatinine 2.14 H (0.66-1.25) mg/dL Glucose 167 H (74-99) mg/dL POC Glucose (mg/dL) 158 H 176 H (70-110) mg/dL Calcium 7.8 L (8.4-10.2) mg/dL Phosphorus (2.5-4.5) mg/dL Magnesium (1.6-2.3) mg/dL Total Protein (6.3-8.2) g/dL Albumin (3.5-5.0) g/dL 08/14/22 08/14/22 08/14/22 Range/Units 21:00 21:54 23:04 WBC (3.8-10.6) k/uL RBC (4.30-5.90) m/uL Hgb (13.0-17.5) gm/dL Hct (39.0-53.0) % Neutrophils # (1.3-7.7) k/uL Lymphocytes # (1.0-4.8) k/uL ABG pO2 (83-108) mmHg ABG Total CO2 (19-24) mmol/L ABG O2 Saturation (94-97) % Chloride (98-107) mmol/L BUN (9-20) mg/dL Creatinine (0.66-1.25) mg/dL Glucose (74-99) mg/dL POC Glucose (mg/dL) 161 H 166 H 197 H (70-110) mg/dL Calcium (8.4-10.2) mg/dL Phosphorus (2.5-4.5) mg/dL Magnesium (1.6-2.3) mg/dL Total Protein (6.3-8.2) g/dL Albumin (3.5-5.0) g/dL 08/15/22 08/15/22 08/15/22 Range/Units 00:10 01:14 01:53 WBC (3.8-10.6) k/uL RBC (4.30-5.90) m/uL Hgb (13.0-17.5) gm/dL Hct (39.0-53.0) % Neutrophils # (1.3-7.7) k/uL Lymphocytes # (1.0-4.8) k/uL ABG pO2 (83-108) mmHg ABG Total CO2 (19-24) mmol/L ABG O2 Saturation (94-97) % Chloride (98-107) mmol/L BUN (9-20) mg/dL Creatinine (0.66-1.25) mg/dL Glucose (74-99) mg/dL POC Glucose (mg/dL) 204 H 220 H 236 H (70-110) mg/dL Calcium (8.4-10.2) mg/dL Phosphorus (2.5-4.5) mg/dL Magnesium (1.6-2.3) mg/dL Total Protein (6.3-8.2) g/dL Albumin (3.5-5.0) g/dL 08/15/22 08/15/22 08/15/22 Range/Units 03:11 03:11 04:18 WBC (3.8-10.6) k/uL RBC (4.30-5.90) m/uL Hgb (13.0-17.5) gm/dL Hct (39.0-53.0) % Neutrophils # (1.3-7.7) k/uL Lymphocytes # (1.0-4.8) k/uL ABG pO2 (83-108) mmHg ABG Total CO2 (19-24) mmol/L ABG O2 Saturation (94-97) % Chloride (98-107) mmol/L BUN 62 H (9-20) mg/dL Creatinine 1.95 H (0.66-1.25) mg/dL Glucose 238 H (74-99) mg/dL POC Glucose (mg/dL) 243 H 243 H (70-110) mg/dL Calcium 7.7 L (8.4-10.2) mg/dL Phosphorus (2.5-4.5) mg/dL Magnesium (1.6-2.3) mg/dL Total Protein (6.3-8.2) g/dL Albumin (3.5-5.0) g/dL 08/15/22 08/15/22 08/15/22 Range/Units 05:04 05:51 06:01 WBC (3.8-10.6) k/uL RBC (4.30-5.90) m/uL Hgb (13.0-17.5) gm/dL Hct (39.0-53.0) % Neutrophils # (1.3-7.7) k/uL Lymphocytes # (1.0-4.8) k/uL ABG pO2 82 L (83-108) mmHg ABG Total CO2 26 H (19-24) mmol/L ABG O2 Saturation 97.2 H (94-97) % Chloride (98-107) mmol/L BUN (9-20) mg/dL Creatinine (0.66-1.25) mg/dL Glucose (74-99) mg/dL POC Glucose (mg/dL) 240 H 261 H (70-110) mg/dL Calcium (8.4-10.2) mg/dL Phosphorus (2.5-4.5) mg/dL Magnesium (1.6-2.3) mg/dL Total Protein (6.3-8.2) g/dL Albumin (3.5-5.0) g/dL 08/15/22 08/15/22 08/15/22 Range/Units 06:14 07:00 07:06 WBC 12.5 H (3.8-10.6) k/uL RBC 3.32 L (4.30-5.90) m/uL Hgb 10.2 L (13.0-17.5) gm/dL Hct 30.8 L (39.0-53.0) % Neutrophils # 10.8 H (1.3-7.7) k/uL Lymphocytes # 0.7 L (1.0-4.8) k/uL ABG pO2 (83-108) mmHg ABG Total CO2 (19-24) mmol/L ABG O2 Saturation (94-97) % Chloride 109 H (98-107) mmol/L BUN 64 H (9-20) mg/dL Creatinine 2.03 H (0.66-1.25) mg/dL Glucose 243 H (74-99) mg/dL POC Glucose (mg/dL) 244 H (70-110) mg/dL Calcium 7.7 L (8.4-10.2) mg/dL Phosphorus 5.0 H (2.5-4.5) mg/dL Magnesium (1.6-2.3) mg/dL Total Protein 5.1 L (6.3-8.2) g/dL Albumin 2.7 L (3.5-5.0) g/dL 08/15/22 08/15/22 08/15/22 Range/Units 08:02 09:08 11:30 WBC (3.8-10.6) k/uL RBC (4.30-5.90) m/uL Hgb (13.0-17.5) gm/dL Hct (39.0-53.0) % Neutrophils # (1.3-7.7) k/uL Lymphocytes # (1.0-4.8) k/uL ABG pO2 (83-108) mmHg ABG Total CO2 (19-24) mmol/L ABG O2 Saturation (94-97) % Chloride (98-107) mmol/L BUN (9-20) mg/dL Creatinine (0.66-1.25) mg/dL Glucose (74-99) mg/dL POC Glucose (mg/dL) 257 H 257 H 265 H (70-110) mg/dL Calcium (8.4-10.2) mg/dL Phosphorus (2.5-4.5) mg/dL Magnesium (1.6-2.3) mg/dL Total Protein (6.3-8.2) g/dL Albumin (3.5-5.0) g/dL 08/15/22 08/15/22 Range/Units 14:53 15:00 WBC (3.8-10.6) k/uL RBC (4.30-5.90) m/uL Hgb (13.0-17.5) gm/dL Hct (39.0-53.0) % Neutrophils # (1.3-7.7) k/uL Lymphocytes # (1.0-4.8) k/uL ABG pO2 (83-108) mmHg ABG Total CO2 (19-24) mmol/L ABG O2 Saturation (94-97) % Chloride 108 H (98-107) mmol/L BUN 72 H (9-20) mg/dL Creatinine 2.08 H (0.66-1.25) mg/dL Glucose 223 H (74-99) mg/dL POC Glucose (mg/dL) 226 H (70-110) mg/dL Calcium 7.8 L (8.4-10.2) mg/dL Phosphorus 5.0 H (2.5-4.5) mg/dL Magnesium 2.4 H (1.6-2.3) mg/dL Total Protein (6.3-8.2) g/dL Albumin (3.5-5.0) g/dL Microbiology - Last 24 Hours (Table) 08/13/22 12:12 Gram Stain - Final Sputum Sputum Culture - Final Haemophilus influenzae
[2022-08-15 17:32] LABS: Glucose,Whole Blood 192 mg/dL (70-110)
[2022-08-15] MEDS: ATORVASTATIN 80 MG TAB PO SCH (20:37)
[2022-08-15] MEDS: INSULIN REGULAR 100 UNIT in SODIUM CHLORIDE 0.9% 100 ML IV SCH ×2 (23:58→23:59)
[2022-08-16 00:09] LABS: Glucose,Whole Blood 105 mg/dL (70-110)
[2022-08-16] MEDS: IPRATROPIUM-ALBUTEROL 3 ML NEB INHALATION SCH ×7 (01:00→23:15)
[2022-08-16] MEDS: ARTIFICIAL TEARS-HYPROMELLOSE DROPS 15 ML BTL BOTH EYES SCH ×7 (04:00→23:30)
[2022-08-16 04:20] LABS: HCT 29.1 % (39.0-53.0); HGB 9.5 gm/dL (13.0-17.5); Hypochromasia Slight; MCH 30.7 pg (25.0-35.0); MCHC 32.7 g/dL (31.0-37.0); MCV 93.8 fL (80.0-100.0); Platelet Count 256 k/uL (150-450); RDW 13.9 % (11.5-15.5)
[2022-08-16 04:36] LABS: Calcium 8.1 mg/dL (8.4-10.2); Magnesium 2.4 mg/dL (1.6-2.3); Phosphorus 6.2 mg/dL (2.5-4.5)
[2022-08-16 05:48] LABS: ABG Base Excess 2.4 mmol/L; ABG HCO3 26 mmol/L (21-25); ABG Oxygen Saturation 99.5 % (94-97); ABG PCO2 38 mmHg (35-45); ABG PH 7.45 (7.35-7.45); ABG PO2 134 mmHg (83-108); ABG TCO2 28 mmol/L (19-24); Allen Test Performed? Yes
[2022-08-16] MEDS: HEPARIN SOD,PORK IN 0.45% NACL 25,000 UNIT in 0.45% NACL 1 250ML.BAG IV SCH (05:49)
[2022-08-16 06:04] LABS: Glucose,Whole Blood 166 mg/dL (70-110)
[2022-08-16] MEDS: INSULIN DETEMIR (LEVEMIR) 100 UNIT/ML SYR SQ SCH (06:37)
[2022-08-16] MEDS: INSULIN ASPART (NovoLOG) 100 UNIT/ML VIAL SQ SCH ×8 (06:38→23:29)
--- NOTE | 2022-08-16 06:56 | XR ---
EXAMINATION TYPE: XR chest 1V portable DATE OF EXAM: 08/16/2022 5:42 AM COMPARISON: Chest radiographs from 08/15/2022 TECHNIQUE: XR chest 1V portable Portable AP radiograph of the chest. CLINICAL INDICATION:Male, 67 years old with history of Tube placement; FINDINGS: Lungs/Pleura: No pneumothorax or pleural effusion. Decreased right lung airspace opacities within the mid to lower lung. Left basilar linear atelectasis. Pulmonary vascularity: Unremarkable. Heart/mediastinum: Cardiomediastinal silhouette is unremarkable. Musculoskeletal: No acute osseous pathology. Lines/Tubes: Stable endotracheal and orogastric tubes. IMPRESSION: 1. Decreased right mid and lower lung airspace opacities from prior examination. 2. Stable support tubes.
[2022-08-16] MEDS: NOREPINEPHRINE 8 MG in SODIUM CHLORIDE 0.9% 250 ML IV SCH (09:42)
[2022-08-16] MEDS: CISATRACURIUM 200 MG in SODIUM CHLORIDE 0.9% 180 ML IV SCH (09:43)
[2022-08-16] MEDS: CHLORHEXIDINE GLUCONATE 15 ML CUP MUCOUS MEM SCH ×2 (09:52→20:19)
[2022-08-16] MEDS: TICAGRELOR 90 MG TAB PO SCH ×2 (09:52→20:19)
[2022-08-16] MEDS: ASPIRIN 81 MG PO SCH (09:52)
[2022-08-16] MEDS: NYSTATIN 100,000UNIT/GM CREAM 30 GM TUBE TOPICAL SCH ×2 (09:53→20:19)
[2022-08-16] MEDS: METOPROLOL TARTRATE 25 MG TAB PO SCH ×2 (09:53→20:19)
[2022-08-16] MEDS: FUROSEMIDE 10 MG/ML 4 ML VIAL IV SCH ×2 (09:53→20:19)
--- NOTE | 2022-08-16 10:37 | P.PN ---
Subjective Progress Note Date: 08/16/22 Patient remains intubated and sedated. I discussed with the ICU nurse. Plan is to try to wean him on sedation and to see if he can do pressure support. Patient has been making good urine output. He is currently on IV Lasix. Objective - Vital Signs Vital signs: Vital Signs Temp 98.5 F 08/16/22 08:00 Pulse 102 H 08/16/22 10:00 Resp 18 08/16/22 10:00 BP 120/67 08/16/22 10:00 Pulse Ox 99 08/16/22 10:00 FiO2 40 08/16/22 09:06 Intake & Output 08/15/22 08/16/22 08/16/22 18:59 06:59 18:59 Intake Total 771.729 819.279 221.936 Output Total 901 1375 380 Balance -129.271 -555.721 -158.064 Weight 102.6 kg 95.2 kg Intake: IV 260 240 40 0.9 KVO 260 240 40 Intake, IV Titration 511.729 237.279 59.936 Amount Cisatracurium 200 mg In 182.497 Sodium Chloride 0.9% 180 ml @ 1 MCG/KG/MIN 6.09 mls/hr IV .Q24H JUANA Rx#: [id number] Clindamycin 600 mg In 50 Dextrose 5% in Water 50 ml @ 50 mls/hr IVPB Q8HR JUANA Rx#:[id number] Insulin Regular 100 unit 8.261 In Sodium Chloride 0.9% 100 ml @ 0.1 UNITS/KG/HR 10.193 mls/hr IV .Q9H55M JUANA Rx#:[id number] Norepinephrine 8 mg In 52.013 Sodium Chloride 0.9% 250 ml @ 0.03 MCG/KG/MIN 5. 892 mls/hr IV .Q24H JUANA Rx#:[id number] propofoL 1,000 mg In 218.958 237.279 59.936 Empty Bag 1 bag @ 30 MCG/ KG/MIN 18.27 mls/hr IV . 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 -unable to assess as patient is intubated and sedated Psych -unable to assess as patient is sedated - Labs CBC & Chem 7: 08/16/22 04:10 08/16/22 04:10 Labs: Abnormal Lab Results - Last 24 Hours (Table) 08/15/22 08/15/22 08/15/22 Range/Units 11:30 14:53 15:00 WBC (3.8-10.6) k/uL RBC (4.30-5.90) m/uL Hgb (13.0-17.5) gm/dL Hct (39.0-53.0) % ABG pO2 (83-108) mmHg ABG HCO3 (21-25) mmol/L ABG Total CO2 (19-24) mmol/L ABG O2 Saturation (94-97) % Chloride 108 H (98-107) mmol/L BUN 72 H (9-20) mg/dL Creatinine 2.08 H (0.66-1.25) mg/dL Glucose 223 H (74-99) mg/dL POC Glucose (mg/dL) 265 H 226 H (70-110) mg/dL Calcium 7.8 L (8.4-10.2) mg/dL Phosphorus 5.0 H (2.5-4.5) mg/dL Magnesium 2.4 H (1.6-2.3) mg/dL 08/15/22 08/16/22 08/16/22 Range/Units 17:30 04:10 04:10 WBC 11.0 H (3.8-10.6) k/uL RBC 3.10 L (4.30-5.90) m/uL Hgb 9.5 L (13.0-17.5) gm/dL Hct 29.1 L (39.0-53.0) % ABG pO2 (83-108) mmHg ABG HCO3 (21-25) mmol/L ABG Total CO2 (19-24) mmol/L ABG O2 Saturation (94-97) % Chloride 110 H (98-107) mmol/L BUN 76 H (9-20) mg/dL Creatinine 2.32 H (0.66-1.25) mg/dL Glucose 140 H (74-99) mg/dL POC Glucose (mg/dL) 192 H (70-110) mg/dL Calcium 8.1 L (8.4-10.2) mg/dL Phosphorus 6.2 H (2.5-4.5) mg/dL Magnesium 2.4 H (1.6-2.3) mg/dL 08/16/22 08/16/22 Range/Units 05:45 05:52 WBC (3.8-10.6) k/uL RBC (4.30-5.90) m/uL Hgb (13.0-17.5) gm/dL Hct (39.0-53.0) % ABG pO2 134 H (83-108) mmHg ABG HCO3 26 H (21-25) mmol/L ABG Total CO2 28 H (19-24) mmol/L ABG O2 Saturation 99.5 H (94-97) % Chloride (98-107) mmol/L BUN (9-20) mg/dL Creatinine (0.66-1.25) mg/dL Glucose (74-99) mg/dL POC Glucose (mg/dL) 166 H (70-110) mg/dL Calcium (8.4-10.2) mg/dL Phosphorus (2.5-4.5) mg/dL Magnesium (1.6-2.3) mg/dL Microbiology - Last 24 Hours (Table) 08/13/22 12:12 Gram Stain - Final Sputum Sputum Culture - Final Haemophilus influenzae Assessment and Plan Assessment: Acute inferior ST segment elevated myocardial infarction Moderate to severe aortic stenosis Severe Pum HTN RVSP 50 Cardiogenic shock Ventilator dependent respiratory failure -Cardiology recommendations. Continue with aspirin, Brillenta, Lipitor, metoprolol -Lasix 40 mg IV every 12 hours as per cardiology -Back Shoe Cutter to manage spent Haemophillus PNA -Resume IV Rocephin - pulm recs RASHMI - nephrology recs - nonobstructing calculi vs angiomyolipoma right upper pole -Diuretics as per cardiology -Nephrology following -Worsening DM 2 with hyperglycemia with neuropathy DKA resolved - Levimir 20 units, Novolog 6 q6 + sliding scale - hold metformin and Glucotrol Chronic: Asthma OA Eczema DVT prophylaxis: heparin gtt Discussed with: nursing Anticipated discharge: pending clinical course Anticipated discharge place: pending clinical course
--- NOTE | 2022-08-16 10:58 | P.PN ---
Subjective Patient is seen for follow-up for acute kidney injury associated with hypotension and acute VT. Patient was maintained on IV Lasix 80 mg every 12 h ours. He has had good urine output. Serum creatinine increased to 2.3 today and Lasix was appropriately decreased to 40 mg IV every 12 hours. Sedation currently being decreased FiO2 at 40%. Urine output at 2.2 L for 24 hours. Objective - Vital Signs Vital signs: Vital Signs Temp 98.5 F 08/16/22 08:00 Pulse 102 H 08/16/22 10:00 Resp 18 08/16/22 10:00 BP 120/67 08/16/22 10:00 Pulse Ox 99 08/16/22 10:00 FiO2 40 08/16/22 09:06 Intake & Output 08/15/22 08/16/22 08/16/22 18:59 06:59 18:59 Intake Total 771.729 819.279 223.560 Output Total 901 1375 380 Balance -129.271 -555.721 -156.440 Weight 102.6 kg 95.2 kg Intake: IV 260 240 40 0.9 KVO 260 240 40 Intake, IV Titration 511.729 237.279 61.560 Amount Cisatracurium 200 mg In 182.497 Sodium Chloride 0.9% 180 ml @ 1 MCG/KG/MIN 6.09 mls/hr IV .Q24H [facility]UANA Rx#: [id number] Clindamycin 600 mg In 50 Dextrose 5% in Water 50 ml @ 50 mls/hr IVPB Q8HR [facility] Rx#:[id number] Insulin Regular 100 unit 8.261 In Sodium Chloride 0.9% 100 ml @ 0.1 UNITS/KG/HR 10.193 mls/hr IV .Q9H55M [facility] Rx#:[id number] Norepinephrine 8 mg In 52.013 Sodium Chloride 0.9% 250 ml @ 0.03 MCG/KG/MIN 5. 892 mls/hr IV .Q24H [facility] Rx#:[id number] propofoL 1,000 mg In 218.958 237.279 61.560 Empty Bag 1 bag @ 30 MCG/ KG/MIN 18.27 mls/hr IV . 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 - Labs CBC & Chem 7: 08/16/22 04:10 08/16/22 04:10 Labs: Abnormal Lab Results - Last 24 Hours (Table) 08/15/22 08/15/22 08/15/22 Range/Units 11:30 14:53 15:00 WBC (3.8-10.6) k/uL RBC (4.30-5.90) m/uL Hgb (13.0-17.5) gm/dL Hct (39.0-53.0) % ABG pO2 (83-108) mmHg ABG HCO3 (21-25) mmol/L ABG Total CO2 (19-24) mmol/L ABG O2 Saturation (94-97) % Chloride 108 H (98-107) mmol/L BUN 72 H (9-20) mg/dL Creatinine 2.08 H (0.66-1.25) mg/dL Glucose 223 H (74-99) mg/dL POC Glucose (mg/dL) 265 H 226 H (70-110) mg/dL Calcium 7.8 L (8.4-10.2) mg/dL Phosphorus 5.0 H (2.5-4.5) mg/dL Magnesium 2.4 H (1.6-2.3) mg/dL 08/15/22 08/16/22 08/16/22 Range/Units 17:30 04:10 04:10 WBC 11.0 H (3.8-10.6) k/uL RBC 3.10 L (4.30-5.90) m/uL Hgb 9.5 L (13.0-17.5) gm/dL Hct 29.1 L (39.0-53.0) % ABG pO2 (83-108) mmHg ABG HCO3 (21-25) mmol/L ABG Total CO2 (19-24) mmol/L ABG O2 Saturation (94-97) % Chloride 110 H (98-107) mmol/L BUN 76 H (9-20) mg/dL Creatinine 2.32 H (0.66-1.25) mg/dL Glucose 140 H (74-99) mg/dL POC Glucose (mg/dL) 192 H (70-110) mg/dL Calcium 8.1 L (8.4-10.2) mg/dL Phosphorus 6.2 H (2.5-4.5) mg/dL Magnesium 2.4 H (1.6-2.3) mg/dL 08/16/22 08/16/22 Range/Units 05:45 05:52 WBC (3.8-10.6) k/uL RBC (4.30-5.90) m/uL Hgb (13.0-17.5) gm/dL Hct (39.0-53.0) % ABG pO2 134 H (83-108) mmHg ABG HCO3 26 H (21-25) mmol/L ABG Total CO2 28 H (19-24) mmol/L ABG O2 Saturation 99.5 H (94-97) % Chloride (98-107) mmol/L BUN (9-20) mg/dL Creatinine (0.66-1.25) mg/dL Glucose (74-99) mg/dL POC Glucose (mg/dL) 166 H (70-110) mg/dL Calcium (8.4-10.2) mg/dL Phosphorus (2.5-4.5) mg/dL Magnesium (1.6-2.3) mg/dL Microbiology - Last 24 Hours (Table) 08/13/22 12:12 Gram Stain - Final Sputum Sputum Culture - Final Haemophilus influenzae Assessment and Plan Assessment: 1. Acute kidney injury ATN currently nonoliguric secondary to hypotension and acute VT. UA is benign appearing with trace protein. 2. Acute inferior wall VT status post cardiac catheterization, angioplasty and and coronary stent placement of RCA 3. Hypotension associated with acute inferior VT and underlying pneumonia. Sputum culture grew Haemophilus influenza 4. Acute hypoxic respiratory failure secondary to pulmonary edema and possible aspiration pneumonia 5. DKA status post insulin drip 6. Cardiomyopathy with EF of 40-45% Plan: Agree with decreasing Lasix Continue with antibiotics Repeat labs in a.m. Avoid nephrotoxic agents.
--- NOTE | 2022-08-16 11:03 | P.PN ---
Subjective Progress Note Date: 08/16/22 Principal diagnosis: Respiratory failure. This is a 67-year-old white male with history of problems including asthma, diabetes, degenerative joint disease, patient was brought into the ER yesterday with mostly sudden onset of shortness of breath and chest pain. Patient was in extreme respiratory distress upon arrival to the ER, he was placed on BiPAP initially, and he continued to have significant dyspnea. Patient was intubated by the ER physician, workup showed evidence of acute inferior ST elevation myocardial infarction. Patient was seen by cardiology on consultation, and he underwent cardiac catheterization and stenting of the RCA which was totally occluded. In the meantime the patient was noted to have extensive pulmonary edema, acute hypoxic respiratory failure secondary to pulmonary edema, underlying pneumonia is not entirely ruled out but felt to be less likely. Nonetheless the patient will be covered empirically with antibiotics for presumptive aspiration pneumonia since significant airspace disease is noted in the right lung compared to the left lung. I saw this patient this morning, patient is intubated and mechanically ventilated, he is on assist control rate of 20, FiO2 was 100% I cut it down to 80%, he had tidal volume of 500, PEEP was at 14. As soon as I evaluated the patient, clearly the patient was not synchronous with mechanical ventilation, hence I recommended increasing his propofol to 75 mcg/kg/m, patient continued to remain asynchronous with the ventilator, and he seems to be working quite hard at it. Then I recommended sta rting the patient on Nimbex and start a Nimbex drip. ABG done later showed a pO2 of 125 pCO2 51 pH of 7.4, hence I increased the rate from 20-26. Another ABG is pending. Patient is requiring norepinephrine at 0.1 mcg/kg/m, he is also on insulin drip for what seems to be in DKA picture. His IV fluid at 20 mL per hour. Patient is now on Nimbex and on Lasix 40 mg IV push every 8 hours, and I added clindamycin empirically. Patient is ALLERGIC to penicillin. Patient had no good venous access when I arrived to see the patient this morning, hence on emergency basis I established a left femoral triple-lumen catheter, and a left radial arterial line. His echocardiogram showed ejection fraction of 40-45%. Patient is on Aggrastat, and he was on heparin earlier with a PTT over 200. Hence I recommended a groin access rather than having a neck or subclavian access after obtaining the ABG, I cut down his FiO2 down to 65%. Looking at the labs, apparently the patient sustained a acute kidney injury, BUN is 60 creatinine 2.38. His creatinine on admission was 1.97, I believe this is mostly related to hypoperfusion as well as related to his cardiac catheterization/contrast media. Reevaluated today on 08/14/22, patient remains in the ICU, remains intubated and mechanically ventilated. Remains on propofol and Nimbex. His ventilator settings are assist control rate of 26 FiO2 50% and PEEP of 12 and I cut it down to 10 tidal volume of 500. ABG this morning showed a pO2 of 75 pCO2 of 41 pH of 7.39. Hence no change was made except cutting down the PEEP from 12-10. Chest x-ray is showing definite improvement in his pulmonary edema but nonetheless continues to have significant interstitial edema especially in the right lung. His urine output is picking up nicely in spite of the fact that the patient is requiring norepinephrine at 0.1 mcg/kg/m. Patient is on Nimbex at 1 mcg/kg/m, propofol 40 mcg/kg/m, and he is on insulin drip at 4.25 units per hour. After reviewing his chest x-ray and reviewing his ABG, I felt it would be best to keep the patient sedated and paralyzed for now. Not much room to start weaning. His urine output is picking up nicely, and that would be helpful for further weaning as his pulmonary edema starts improving. WBC count today is 12 hemoglobin is 10.6. Blood sugar is 232. PTT is 51.3. And his BUN is 64 creatinine is down to 2.58 from 2.68 yesterday. His troponin yesterday was 3.39 and his BNP level was 11,200 Progress note dated 08/15/2022. This is a 67-year-old male who was admitted on August 13, the diagnoses of ST segment elevation myocardial infarction, diabetic ketoacidosis, and CHF. The patient was intubated on August 13. He went to the catheterization laboratory and had a stent placed in the right coronary artery. He remains on mechanical ventilator. He is currently on by volume assist control, rate 26, tidal volume 500, FiO2 50%, and PEEP of 10. Blood gases show pO2 of 82, pCO2 39, and a pH is 7.42. The patient remains on propofol at 40 mcg/kg/m, insulin at 3.5 units an hour, Nimbex at 2 mcg/kg/m, with [id number] monitoring, saline at 20 mL an hour, and Nepro tube feedings at 10 mL an hour. White count 12.5, hemoglobin 10.2, hematocrit 30.8, and platelet count 292,000. Sodium 141, potassium 4, c hloride 109, CO2 25, BUN 64, creatinine 2.03. Chest x-ray shows persistent right lung infiltrate and/or edema. Chest x-ray is unchanged. Progress note dated 08/16/2022. 67-year-old male seen again in room 264. He was admitted on August 13. The patient came in with a diagnosis of an ST segment elevation myocardial infarction, CHF, and diabetic ketoacidosis. He had a stent placed in his right coronary artery. He was intubated. He remains on the mechanical ventilator. Yesterday, he was on Nimbex, but we've been able to wean that off. Currently, he is on the volume assist control, rate 26, tidal volume 500, FiO2 40%, and PEEP of 10. Blood gases on 50% showed a pO2 134, pCO2 of 38, and a pH is 7.45. The patient remains on propofol at 35 mcg/kg/m, saline at 20 mL an hour, and Nepro tube needs, he is an hour, which is goal. Today, we will do a daily interruption of sedation. His sputum was positive for H. influenzae. Patient remains on Rocephin. White count 11, hemoglobin 9.5, hematocrit 29.1, and platelet count 256,000. Sodium 144, potassium 4, chlorides 110, CO2 26, anion gap 8, BUN 76, creatinine 2.32. Chest x-ray compared to prior x-rays, is improved. Objective - Vital Signs Vital signs: Vital Signs Temp 98.5 F 08/16/22 08:00 Pulse 102 H 08/16/22 10:00 Resp 18 08/16/22 10:00 BP 120/67 08/16/22 10:00 Pulse Ox 99 08/16/22 10:00 FiO2 40 08/16/22 09:06 Intake & Output 08/15/22 08/16/22 08/16/22 18:59 06:59 18:59 Intake Total 771.729 819.279 223.560 Output Total 901 1375 380 Balance -129.271 -555.721 -156.440 Weight 102.6 kg 95.2 kg Intake: IV 260 240 40 0.9 KVO 260 240 40 Intake, IV Titration 511.729 237.279 61.560 Amount Cisatracurium 200 mg In 182.497 Sodium Chloride 0.9% 180 ml @ 1 MCG/KG/MIN 6.09 mls/hr IV .Q24H [facility] Rx#: [id number] Clindamycin 600 mg In 50 Dextrose 5% in Water 50 ml @ 50 mls/hr IVPB Q8HR [facility] Rx#:[id number] Insulin Regular 100 unit 8.261 In Sodium Chloride 0.9% 100 ml @ 0.1 UNITS/KG/HR 10.193 mls/hr IV .Q9H55M [facility] Rx#:[id number] Norepinephrine 8 mg In 52.013 Sodium Chloride 0.9% 250 ml @ 0.03 MCG/KG/MIN 5. 892 mls/hr IV .Q24H [facility] Rx#:[id number] propofoL 1,000 mg In 218.958 237.279 61.560 Empty Bag 1 bag @ 30 MCG/ KG/MIN 18.27 mls/hr IV . Q5H29M [facility] Rx#:[id number] Tube Feeding 252 42 Other 90 80 Output: Urine 901 1375 380 Other: Voiding Method Indwelling Catheter Indwelling Catheter ABP, PAP, CO, CI - Last Documented Arterial Blood Pressure 117/53 - Exam No acute distress, sedated, with an orally placed endotracheal tube. HEENT examination is grossly unremarkable. Neck supple. Full range of motion. No adenopathy thyromegaly or neck vein distention. Cardiovascular examination reveals regular rhythm rate. S1-S2 normal. No S3 or S4. No discernible murmur noted. Heart sounds are distant. Heart rate 102 beats a minute. Lungs reveal scattered bilateral rhonchi. No wheezes. No distinct crackles. Breath sounds equal. Saturations 99 %. Abdomen soft bowel sounds are heard. No masses or tenderness. Extremities are intact. No cyanosis clubbing or edema. Skin is without rash or lesion. Neurologic examination cannot be adequately assessed at this time. - Labs CBC & Chem 7: 08/16/22 04:10 08/16/22 04:10 Labs: Abnormal Lab Results - Last 24 Hours (Table) 08/15/22 08/15/22 08/15/22 Range/Units 11:30 14:53 15:00 WBC (3.8-10.6) k/uL RBC (4.30-5.90) m/uL Hgb (13.0-17.5) gm/dL Hct (39.0-53.0) % ABG pO2 (83-108) mmHg ABG HCO3 (21-25) mmol/L ABG Total CO2 (19-24) mmol/L ABG O2 Saturation (94-97) % Chloride 108 H (98-107) mmol/L BUN 72 H (9-20) mg/dL Creatinine 2.08 H (0.66-1.25) mg/dL Glucose 223 H (74-99) mg/dL POC Glucose (mg/dL) 265 H 226 H (70-110) mg/dL Calcium 7.8 L (8.4-10.2) mg/dL Phosphorus 5.0 H (2.5-4.5) mg/dL Magnesium 2.4 H (1.6-2.3) mg/dL 08/15/22 08/16/22 08/16/22 Range/Units 17:30 04:10 04:10 WBC 11.0 H (3.8-10.6) k/uL RBC 3.10 L (4.30-5.90) m/uL Hgb 9.5 L (13.0-17.5) gm/dL Hct 29.1 L (39.0-53.0) % ABG pO2 (83-108) mmHg ABG HCO3 (21-25) mmol/L ABG Total CO2 (19-24) mmol/L ABG O2 Saturation (94-97) % Chloride 110 H (98-107) mmol/L BUN 76 H (9-20) mg/dL Creatinine 2.32 H (0.66-1.25) mg/dL Glucose 140 H (74-99) mg/dL POC Glucose (mg/dL) 192 H (70-110) mg/dL Calcium 8.1 L (8.4-10.2) mg/dL Phosphorus 6.2 H (2.5-4.5) mg/dL Magnesium 2.4 H (1.6-2.3) mg/dL 08/16/22 08/16/22 Range/Units 05:45 05:52 WBC (3.8-10.6) k/uL RBC (4.30-5.90) m/uL Hgb (13.0-17.5) gm/dL Hct (39.0-53.0) % ABG pO2 134 H (83-108) mmHg ABG HCO3 26 H (21-25) mmol/L ABG Total CO2 28 H (19-24) mmol/L ABG O2 Saturation 99.5 H (94-97) % Chloride (98-107) mmol/L BUN (9-20) mg/dL Creatinine (0.66-1.25) mg/dL Glucose (74-99) mg/dL POC Glucose (mg/dL) 166 H (70-110) mg/dL Calcium (8.4-10.2) mg/dL Phosphorus (2.5-4.5) mg/dL Magnesium (1.6-2.3) mg/dL Microbiology - Last 24 Hours (Table) 08/13/22 12:12 Gram Stain - Final Sputum Sputum Culture - Final Haemophilus influenzae Assessment and Plan Assessment: Acute hypoxemic respiratory failure, secondary to acute systolic CHF, pulmonary edema, ischemic cardiomyopathy, and acute ST segment elevation myocardial infarction. Status post intubation and mechanical ventilation, on 08/13/2022. Status post stent placement, right coronary artery, 08/13/2022. Possible aspiration pneumonia. Acute diabetic ketoacidosis. Acute kidney injury. History of asthma. Degenerative joint disease. Fungal dermatitis, involving the right groin area. Plan: Plan dated 08/15/2022. The patient's insulin drip can be discontinued. The patient's sugar is better control, to gap is closed, and the bicarbonate concentration is in normal range. We'll put the patient on NovoLog sliding scale, every 6 hours. Also, we added updrafts treatments, and we will attempt to get the patient off of Nimbex. Labs, x-rays, and medications are reviewed. We will continue to follow make recommendations along the way. Prognosis is guarded. Plan dated 08/16/2022. The patient is currently on Rocephin, which should cover the H. influenzae in the sputum. We have been able to successfully wean off the Nimbex. Patient remains on the mechanical ventilator. He is getting tube feeds at goal. We will do a daily interruption of sedation today. FiO2 was dropped from 50%, down to 40%. Labs, x-rays, and medications are reviewed. Overall prognosis remains guarded. We will continue to follow the patient make recommendations along the way. Time with Patient: Greater than 30
[2022-08-16 11:59] LABS: Glucose,Whole Blood 156 mg/dL (70-110)
[2022-08-16] MEDS: FUROSEMIDE 10 MG/ML 10 ML VIAL IV SCH (11:59)
[2022-08-16 12:26] LABS: Albumin 2.6 g/dL (3.5-5.0); Total Bilirubin 0.5 mg/dL (0.2-1.3)
[2022-08-16 17:50] LABS: Glucose,Whole Blood 148 mg/dL (70-110)
[2022-08-16] MEDS: ATORVASTATIN 80 MG TAB PO SCH (20:19)
--- NOTE | 2022-08-16 21:45 | PN ---
PROGRESS NOTE SUBJECTIVE: A gentleman who suffered from an acute inferior TN, also was hypotensive. He is still on a ventilator. Weaning efforts are in progress. I will increase the metoprolol tartrate to 25 mg b.i.d. His first-degree AV block has improved. I will decrease the Lasix to 40 mg q.12 hours. OBJECTIVE: HEART: S1 and S2 heard normally. Short systolic murmur. LUNGS: Reveal diminished air entry. ABDOMEN: Unchanged. LOWER EXTREMITIES: Unchanged. The patient remains on the ventilator. PROGNOSIS: Remains guarded. MMODL / IJN: [id number] /
[2022-08-16 23:05] LABS: Glucose,Whole Blood 187 mg/dL (70-110)
[2022-08-16] MEDS ORDERED: HYDROmorphone 0.5 MG/0.5 ML SYRINGE IVP STA (23:23)
[2022-08-17 00:08] LABS: Glucose,Whole Blood 192 mg/dL (70-110)
[2022-08-17] MEDS: IPRATROPIUM-ALBUTEROL 3 ML NEB INHALATION SCH ×6 (02:52→23:55)
[2022-08-17] MEDS: HEPARIN SOD,PORK IN 0.45% NACL 25,000 UNIT in 0.45% NACL 1 250ML.BAG IV SCH (03:00)
[2022-08-17] MEDS: ARTIFICIAL TEARS-HYPROMELLOSE DROPS 15 ML BTL BOTH EYES SCH ×6 (04:00→23:14)
[2022-08-17 04:32] LABS: Basophils % (A) 0 %; Eosinophils # (A) 0.1 k/uL (0-0.7); Eosinophils % (A) 1 %; HCT 31.6 % (39.0-53.0); HGB 10.1 gm/dL (13.0-17.5); Hypochromasia Slight; Lymphocytes # (A) 0.6 k/uL (1.0-4.8); Lymphocytes % (A) 7 %; MCH 30.1 pg (25.0-35.0); MCHC 31.8 g/dL (31.0-37.0); MCV 94.7 fL (80.0-100.0); Monocytes # (A) 0.5 k/uL (0-1.0); Monocytes % (A) 6 %; Neutrophils # (A) 7.2 k/uL (1.3-7.7); Neutrophils % (A) 84 %; Platelet Count 255 k/uL (150-450); RBC 3.34 m/uL (4.30-5.90); RDW 13.7 % (11.5-15.5); WBC 8.6 k/uL (3.8-10.6)
[2022-08-17 04:41] LABS: Calcium 8.7 mg/dL (8.4-10.2); Potassium 3.7 mmol/L (3.5-5.1)
[2022-08-17 05:14] LABS: Glucose,Whole Blood 257 mg/dL (70-110)
[2022-08-17] MEDS: INSULIN ASPART (NovoLOG) 100 UNIT/ML VIAL SQ SCH ×8 (05:17→23:31)
[2022-08-17 05:39] LABS: ABG Base Excess 5.8 mmol/L; ABG HCO3 29 mmol/L (21-25); ABG PCO2 39 mmHg (35-45); ABG PH 7.49 (7.35-7.45); ABG PO2 107 mmHg (83-108); ABG TCO2 30 mmol/L (19-24); Allen Test Performed? Yes
[2022-08-17] MEDS ORDERED: POTASSIUM BICARBONATE/CIT AC 20 MEQ TABLET.EFF NG-TUBE SCH (06:00)
[2022-08-17] MEDS: INSULIN DETEMIR (LEVEMIR) 100 UNIT/ML SYR SQ SCH (06:07)
[2022-08-17 06:17] LABS: Glucose,Whole Blood 267 mg/dL (70-110)
[2022-08-17] MEDS ORDERED: HYDROmorphone 0.5 MG/0.5 ML SYRINGE IVP STA (06:23)
--- NOTE | 2022-08-17 07:12 | XR ---
EXAMINATION TYPE: XR chest 1V portable DATE OF EXAM: 08/17/2022 5:52 AM COMPARISON: Chest radiograph from one day prior. TECHNIQUE: XR chest 1V portable Portable AP radiograph of the chest. CLINICAL INDICATION:Male, 67 years old with history of Tube placement; FINDINGS: Lungs/Pleura: Right perihilar airspace opacities are unchanged. Streaky atelectasis in the lung base. There is no evidence of pleural effusion, or pneumothorax. Pulmonary vascularity: Unremarkable. Heart/mediastinum: Cardiomediastinal silhouette is unremarkable. Musculoskeletal: No acute osseous pathology. Lines/Tubes: Endotracheal tube with distal tip 6.4 cm above the patrick Nasogastric tube with its distal tip and side-port projecting under the diaphragm. IMPRESSION: 1. Similar right perihilar airspace opacities. 2. Stable support tubes.
[2022-08-17] MEDS ORDERED: DEXTROSE 5% IN WATER 1,000 ML IV ONE (09:26)
[2022-08-17] MEDS: NYSTATIN 100,000UNIT/GM CREAM 30 GM TUBE TOPICAL SCH ×2 (10:12→20:17)
[2022-08-17] MEDS: CHLORHEXIDINE GLUCONATE 15 ML CUP MUCOUS MEM SCH ×2 (10:13→20:17)
[2022-08-17] MEDS: FUROSEMIDE 10 MG/ML 4 ML VIAL IV SCH ×2 (10:13→20:17)
[2022-08-17] MEDS: ASPIRIN 81 MG PO SCH (10:13)
[2022-08-17] MEDS: TICAGRELOR 90 MG TAB PO SCH ×2 (10:14→20:17)
[2022-08-17] MEDS: METOPROLOL TARTRATE 25 MG TAB PO SCH ×3 (10:14→21:21)
[2022-08-17] MEDS: hydrALAZINE HCL 25 MG TAB PO SCH ×2 (10:14→20:17)
[2022-08-17] MEDS: amLODIPine 10 MG TAB PO SCH (10:14)
--- NOTE | 2022-08-17 11:40 | P.PN ---
Subjective Progress Note Date: 08/17/22 Patient is off sedation since yesterday. Per nurse patient has not been waking up and has been unresponsive. When I saw the patient he was getting an EEG. Objective - Vital Signs Vital signs: Vital Signs Temp 99.3 F 08/17/22 08:00 Pulse 110 H 08/17/22 11:13 Resp 20 08/17/22 11:00 BP 137/85 08/17/22 11:00 Pulse Ox 97 08/17/22 11:00 FiO2 40 08/17/22 10:58 Intake & Output 08/16/22 08/17/22 08/17/22 18:59 06:59 18:59 Intake Total 693.560 200 294 Output Total 2180 1910 1620 Balance -1486.440 -1710 -1326 Weight 95.2 kg 94.8 kg Intake: IV 240 200 100 0.9 KVO 240 200 Dextrose 5% in Water 1, 100 000 ml @ 100 mls/hr IV . Q10H [facility] Rx#:[id number] Intake, IV Titration 61.560 50 Amount cefTRIAXone 2 gm In 50 Sodium Chloride 0.9% 50 ml @ 100 mls/hr IVPB Q24HR [facility] Rx#:[id number] propofoL 1,000 mg In 61.560 Empty Bag 1 bag @ 30 MCG/ KG/MIN 18.27 mls/hr IV . Q5H29M [facility] Rx#:[id number] Oral 21 Tube Feeding 231 84 Other 140 60 Output: Urine 2180 1910 1620 Other: Voiding Method Indwelling Catheter Indwelling Catheter Indwelling Catheter ABP, PAP, CO, CI - Last Documented Arterial Blood Pressure 164/60 - Exam General examination -intubated and nonresponsive Heart - + S1S2 no murmurs Lungs -diminished breath sounds bilaterally Abdomen soft NT ND +ve BS Extremities -+1 pitting edema bilateral lower extremities ASSIGNMENT EDITOR -patient is nonresponsive off of sedation Psych -unable to assess due to altered mental status - Labs CBC & Chem 7: 08/17/22 04:22 08/17/22 04:22 Labs: Abnormal Lab Results - Last 24 Hours (Table) 08/16/22 08/16/22 08/16/22 Range/Units 04:10 11:58 17:48 RBC (4.30-5.90) m/uL Hgb (13.0-17.5) gm/dL Hct (39.0-53.0) % Lymphocytes # (1.0-4.8) k/uL ABG pH (7.35-7.45) ABG HCO3 (21-25) mmol/L ABG Total CO2 (19-24) mmol/L ABG O2 Saturation (94-97) % Sodium (137-145) mmol/L Chloride 110 H (98-107) mmol/L BUN 76 H (9-20) mg/dL Creatinine 2.32 H (0.66-1.25) mg/dL Glucose 140 H (74-99) mg/dL POC Glucose (mg/dL) 156 H 148 H (70-110) mg/dL Calcium 8.1 L (8.4-10.2) mg/dL Phosphorus 6.2 H (2.5-4.5) mg/dL Magnesium 2.4 H (1.6-2.3) mg/dL Total Protein 5.0 L (6.3-8.2) g/dL Albumin 2.6 L (3.5-5.0) g/dL 08/16/22 08/17/22 08/17/22 Range/Units 23:04 00:06 04:22 RBC 3.34 L (4.30-5.90) m/uL Hgb 10.1 L (13.0-17.5) gm/dL Hct 31.6 L (39.0-53.0) % Lymphocytes # 0.6 L (1.0-4.8) k/uL ABG pH (7.35-7.45) ABG HCO3 (21-25) mmol/L ABG Total CO2 (19-24) mmol/L ABG O2 Saturation (94-97) % Sodium (137-145) mmol/L Chloride (98-107) mmol/L BUN (9-20) mg/dL Creatinine (0.66-1.25) mg/dL Glucose (74-99) mg/dL POC Glucose (mg/dL) 187 H 192 H (70-110) mg/dL Calcium (8.4-10.2) mg/dL Phosphorus (2.5-4.5) mg/dL Magnesium (1.6-2.3) mg/dL Total Protein (6.3-8.2) g/dL Albumin (3.5-5.0) g/dL 08/17/22 08/17/22 08/17/22 Range/Units 04:22 05:12 05:35 RBC (4.30-5.90) m/uL Hgb (13.0-17.5) gm/dL Hct (39.0-53.0) % Lymphocytes # (1.0-4.8) k/uL ABG pH 7.49 H (7.35-7.45) ABG HCO3 29 H (21-25) mmol/L ABG Total CO2 30 H (19-24) mmol/L ABG O2 Saturation 99.0 H (94-97) % Sodium 150 H (137-145) mmol/L Chloride 113 H (98-107) mmol/L BUN 70 H (9-20) mg/dL Creatinine 1.48 H (0.66-1.25) mg/dL Glucose 269 H (74-99) mg/dL POC Glucose (mg/dL) 257 H (70-110) mg/dL Calcium (8.4-10.2) mg/dL Phosphorus (2.5-4.5) mg/dL Magnesium (1.6-2.3) mg/dL Total Protein (6.3-8.2) g/dL Albumin (3.5-5.0) g/dL 08/17/22 Range/Units 06:05 RBC (4.30-5.90) m/uL Hgb (13.0-17.5) gm/dL Hct (39.0-53.0) % Lymphocytes # (1.0-4.8) k/uL ABG pH (7.35-7.45) ABG HCO3 (21-25) mmol/L ABG Total CO2 (19-24) mmol/L ABG O2 Saturation (94-97) % Sodium (137-145) mmol/L Chloride (98-107) mmol/L BUN (9-20) mg/dL Creatinine (0.66-1.25) mg/dL Glucose (74-99) mg/dL POC Glucose (mg/dL) 267 H (70-110) mg/dL Calcium (8.4-10.2) mg/dL Phosphorus (2.5-4.5) mg/dL Magnesium (1.6-2.3) mg/dL Total Protein (6.3-8.2) g/dL Albumin (3.5-5.0) g/dL Assessment and Plan Assessment: Acute inferior ST segment elevated myocardial infarction Moderate to severe aortic stenosis Severe Pum HTN RVSP 50 Cardiogenic shock Ventilator dependent respiratory failure -Cardiology recommendations. Continue with aspirin, Brillenta, Lipitor, metoprolol -Lasix 40 mg IV every 12 hours as per cardiology -[employer] to manage spent Acute encephalopathy Patient off sedation and is nonresponsive Neurology consult EEG Haemophillus PNA -Resume IV Rocephin - pulm recs RASHMI - nephrology recs - nonobstructing calculi vs angiomyolipoma right upper pole -Diuretics as per cardiology -Nephrology following -Improving Hyponatremia Patient started on D5 drip Trend BMP DM 2 with hyperglycemia with neuropathy DKA resolved - Levimir 20 units, Novolog 6 q6 + sliding scale - hold metformin and Glucotrol Chronic: Asthma OA Eczema DVT prophylaxis: heparin gtt Discussed with: nursing Anticipated discharge: pending clinical course Anticipated discharge place: pending clinical course
--- NOTE | 2022-08-17 11:53 | P.PN ---
Subjective Progress Note Date: 08/17/22 Principal diagnosis: Respiratory failure. This is a 67-year-old white male with history of problems including asthma, diabetes, degenerative joint disease, patient was brought into the ER yesterday with mostly sudden onset of shortness of breath and chest pain. Patient was in extreme respiratory distress upon arrival to the ER, he was placed on BiPAP initially, and he continued to have significant dyspnea. Patient was intubated by the ER physician, workup showed evidence of acute inferior ST elevation myocardial infarction. Patient was seen by cardiology on consultation, and he underwent cardiac catheterization and stenting of the RCA which was totally occluded. In the meantime the patient was noted to have extensive pulmonary edema, acute hypoxic respiratory failure secondary to pulmonary edema, underlying pneumonia is not entirely ruled out but felt to be less likely. Nonetheless the patient will be covered empirically with antibiotics for presumptive aspiration pneumonia since significant airspace disease is noted in the right lung compared to the left lung. I saw this patient this morning, patient is intubated and mechanically ventilated, he is on assist control rate of 20, FiO2 was 100% I cut it down to 80%, he had tidal volume of 500, PEEP was at 14. As soon as I evaluated the patient, clearly the patient was not synchronous with mechanical ventilation, hence I recommended increasing his propofol to 75 mcg/kg/m, patient continued to remain asynchronous with the ventilator, and he seems to be working quite hard at it. Then I recommended sta rting the patient on Nimbex and start a Nimbex drip. ABG done later showed a pO2 of 125 pCO2 51 pH of 7.4, hence I increased the rate from 20-26. Another ABG is pending. Patient is requiring norepinephrine at 0.1 mcg/kg/m, he is also on insulin drip for what seems to be in DKA picture. His IV fluid at 20 mL per hour. Patient is now on Nimbex and on Lasix 40 mg IV push every 8 hours, and I added clindamycin empirically. Patient is ALLERGIC to penicillin. Patient had no good venous access when I arrived to see the patient this morning, hence on emergency basis I established a left femoral triple-lumen catheter, and a left radial arterial line. His echocardiogram showed ejection fraction of 40-45%. Patient is on Aggrastat, and he was on heparin earlier with a PTT over 200. Hence I recommended a groin access rather than having a neck or subclavian access after obtaining the ABG, I cut down his FiO2 down to 65%. Looking at the labs, apparently the patient sustained a acute kidney injury, BUN is 60 creatinine 2.38. His creatinine on admission was 1.97, I believe this is mostly related to hypoperfusion as well as related to his cardiac catheterization/contrast media. Reevaluated today on 08/14/22, patient remains in the ICU, remains intubated and mechanically ventilated. Remains on propofol and Nimbex. His ventilator settings are assist control rate of 26 FiO2 50% and PEEP of 12 and I cut it down to 10 tidal volume of 500. ABG this morning showed a pO2 of 75 pCO2 of 41 pH of 7.39. Hence no change was made except cutting down the PEEP from 12-10. Chest x-ray is showing definite improvement in his pulmonary edema but nonetheless continues to have significant interstitial edema especially in the right lung. His urine output is picking up nicely in spite of the fact that the patient is requiring norepinephrine at 0.1 mcg/kg/m. Patient is on Nimbex at 1 mcg/kg/m, propofol 40 mcg/kg/m, and he is on insulin drip at 4.25 units per hour. After reviewing his chest x-ray and reviewing his ABG, I felt it would be best to keep the patient sedated and paralyzed for now. Not much room to start weaning. His urine output is picking up nicely, and that would be helpful for further weaning as his pulmonary edema starts improving. WBC count today is 12 hemoglobin is 10.6. Blood sugar is 232. PTT is 51.3. And his BUN is 64 creatinine is down to 2.58 from 2.68 yesterday. His troponin yesterday was 3.39 and his BNP level was 11,200 Progress note dated 08/15/2022. This is a 67-year-old male who was admitted on August 13, the diagnoses of ST segment elevation myocardial infarction, diabetic ketoacidosis, and CHF. The patient was intubated on August 13. He went to the catheterization laboratory and had a stent placed in the right coronary artery. He remains on mechanical ventilator. He is currently on by volume assist control, rate 26, tidal volume 500, FiO2 50%, and PEEP of 10. Blood gases show pO2 of 82, pCO2 39, and a pH is 7.42. The patient remains on propofol at 40 mcg/kg/m, insulin at 3.5 units an hour, Nimbex at 2 mcg/kg/m, with [id number] monitoring, saline at 20 mL an hour, and Nepro tube feedings at 10 mL an hour. White count 12.5, hemoglobin 10.2, hematocrit 30.8, and platelet count 292,000. Sodium 141, potassium 4, c hloride 109, CO2 25, BUN 64, creatinine 2.03. Chest x-ray shows persistent right lung infiltrate and/or edema. Chest x-ray is unchanged. Progress note dated 08/16/2022. 67-year-old male seen again in room 264. He was admitted on August 13. The patient came in with a diagnosis of an ST segment elevation myocardial infarction, CHF, and diabetic ketoacidosis. He had a stent placed in his right coronary artery. He was intubated. He remains on the mechanical ventilator. Yesterday, he was on Nimbex, but we've been able to wean that off. Currently, he is on the volume assist control, rate 26, tidal volume 500, FiO2 40%, and PEEP of 10. Blood gases on 50% showed a pO2 134, pCO2 of 38, and a pH is 7.45. The patient remains on propofol at 35 mcg/kg/m, saline at 20 mL an hour, and Nepro tube needs, he is an hour, which is goal. Today, we will do a daily interruption of sedation. His sputum was positive for H. influenzae. Patient remains on Rocephin. White count 11, hemoglobin 9.5, hematocrit 29.1, and platelet count 256,000. Sodium 144, potassium 4, chlorides 110, CO2 26, anion gap 8, BUN 76, creatinine 2.32. Chest x-ray compared to prior x-rays, is improved. Progress note dated 08/17/2022. 5-year-old male seen again in room 264. The patient was admitted on August 13. He came in with a diagnosis of ST segment elevation myocardial infarction, CHF, and diabetic ketoacidosis. He had a stent placed in his right coronary artery. He was intubated, and remains on mechanical ventilator. Currently, settings include the volume assist control, rate 26, tidal volume 500, FiO2 40%, and PEEP of 10. Blood gases show pO2 107, pCO2 39, and a pH is 7.49. The patient's getting Nepro at 21 mL an hour, which is goal. We will add D5W at 100 mL an hour. In addition, for better blood pressure control, the patient will be placed back on amlodipine, and the nurses can use Cleveprex and titrate it. White count 8.6, hemoglobin 10.1, hematocrit 31.6, with a normal platelet count. Sodium 150, potassium 3.7, chlorides 113, CO2 28, BUN 70, creatinine 1.48. The saline IV was discontinued in favor of D5W at 100 mL an hour. The patient's chest x-ray shows similar infiltrates in the perihilar regions. Sputum is showing Haemophilus influenzae from August 13. Objective - Vital Signs Vital signs: Vital Signs Temp 99.3 F 08/17/22 08:00 Pulse 110 H 08/17/22 11:13 Resp 20 08/17/22 11:00 BP 137/85 08/17/22 11:00 Pulse Ox 97 08/17/22 11:00 FiO2 40 08/17/22 10:58 Intake & Output 08/16/22 08/17/22 08/17/22 18:59 06:59 18:59 Intake Total 693.560 200 294 Output Total 2179 1909 1620 Balance -1486.440 -1710 -1326 Weight 95.2 kg 94.8 kg Intake: IV 240 200 100 0.9 KVO 240 200 Dextrose 5% in Water 1, 100 000 ml @ 100 mls/hr IV . Q10H ONE Rx#:[id number] Intake, IV Titration 61.560 50 Amount cefTRIAXone 2 gm In 50 Sodium Chloride 0.9% 50 ml @ 100 mls/hr IVPB Q24HR [facility] Rx#:[id number] propofoL 1,000 mg In 61.560 Empty Bag 1 bag @ 30 MCG/ KG/MIN 18.27 mls/hr IV . Q5H29M [facility] Rx#:[id number] Oral 21 Tube Feeding 231 84 Other 140 60 Output: Urine 218 191 1620 Other: Voiding Method Indwelling Catheter Indwelling Catheter Indwelling Catheter ABP, PAP, CO, CI - Last Documented Arterial Blood Pressure 164/60 - Exam No acute distress, sedated, with an orally placed endotracheal tube. HEENT examination is grossly unremarkable. Neck supple. Full range of motion. No adenopathy thyromegaly or neck vein distention. Cardiovascular examination reveals regular rhythm rate. S1-S2 normal. No S3 or S4. No discernible murmur noted. Heart sounds are distant. Heart rate 110 b eats a minute. Lungs reveal scattered bilateral rhonchi. No wheezes. No distinct crackles. Breath sounds equal. Saturations 97 %. Abdomen soft bowel sounds are heard. No masses or tenderness. Extremities are intact. No cyanosis clubbing or edema. Skin is without rash or lesion. Neurologic examination reveals an unresponsive man, who has been off the propofol, for quite some time. - Labs CBC & Chem 7: 08/17/22 04:22 08/17/22 04:22 Labs: Abnormal Lab Results - Last 24 Hours (Table) 08/16/22 08/16/22 08/16/22 Range/Units 04:10 11:58 17:48 RBC (4.30-5.90) m/uL Hgb (13.0-17.5) gm/dL Hct (39.0-53.0) % Lymphocytes # (1.0-4.8) k/uL ABG pH (7.35-7.45) ABG HCO3 (21-25) mmol/L ABG Total CO2 (19-24) mmol/L ABG O2 Saturation (94-97) % Sodium (137-145) mmol/L Chloride 110 H (98-107) mmol/L BUN 76 H (9-20) mg/dL Creatinine 2.32 H (0.66-1.25) mg/dL Glucose 140 H (74-99) mg/dL POC Glucose (mg/dL) 156 H 148 H (70-110) mg/dL Calcium 8.1 L (8.4-10.2) mg/dL Phosphorus 6.2 H (2.5-4.5) mg/dL Magnesium 2.4 H (1.6-2.3) mg/dL Total Protein 5.0 L (6.3-8.2) g/dL Albumin 2.6 L (3.5-5.0) g/dL 08/16/22 08/17/22 08/17/22 Range/Units 23:04 00:06 04:22 RBC 3.34 L (4.30-5.90) m/uL Hgb 10.1 L (13.0-17.5) gm/dL Hct 31.6 L (39.0-53.0) % Lymphocytes # 0.6 L (1.0-4.8) k/uL ABG pH (7.35-7.45) ABG HCO3 (21-25) mmol/L ABG Total CO2 (19-24) mmol/L ABG O2 Saturation (94-97) % Sodium (137-145) mmol/L Chloride (98-107) mmol/L BUN (9-20) mg/dL Creatinine (0.66-1.25) mg/dL Glucose (74-99) mg/dL POC Glucose (mg/dL) 187 H 192 H (70-110) mg/dL Calcium (8.4-10.2) mg/dL Phosphorus (2.5-4.5) mg/dL Magnesium (1.6-2.3) mg/dL Total Protein (6.3-8.2) g/dL Albumin (3.5-5.0) g/dL 08/17/22 08/17/22 08/17/22 Range/Units 04:22 05:12 05:35 RBC (4.30-5.90) m/uL Hgb (13.0-17.5) gm/dL Hct (39.0-53.0) % Lymphocytes # (1.0-4.8) k/uL ABG pH 7.49 H (7.35-7.45) ABG HCO3 29 H (21-25) mmol/L ABG Total CO2 30 H (19-24) mmol/L ABG O2 Saturation 99.0 H (94-97) % Sodium 150 H (137-145) mmol/L Chloride 113 H (98-107) mmol/L BUN 70 H (9-20) mg/dL Creatinine 1.48 H (0.66-1.25) mg/dL Glucose 269 H (74-99) mg/dL POC Glucose (mg/dL) 257 H (70-110) mg/dL Calcium (8.4-10.2) mg/dL Phosphorus (2.5-4.5) mg/dL Magnesium (1.6-2.3) mg/dL Total Protein (6.3-8.2) g/dL Albumin (3.5-5.0) g/dL 08/17/22 Range/Units 06:05 RBC (4.30-5.90) m/uL Hgb (13.0-17.5) gm/dL Hct (39.0-53.0) % Lymphocytes # (1.0-4.8) k/uL ABG pH (7.35-7.45) ABG HCO3 (21-25) mmol/L ABG Total CO2 (19-24) mmol/L ABG O2 Saturation (94-97) % Sodium (137-145) mmol/L Chloride (98-107) mmol/L BUN (9-20) mg/dL Creatinine (0.66-1.25) mg/dL Glucose (74-99) mg/dL POC Glucose (mg/dL) 267 H (70-110) mg/dL Calcium (8.4-10.2) mg/dL Phosphorus (2.5-4.5) mg/dL Magnesium (1.6-2.3) mg/dL Total Protein (6.3-8.2) g/dL Albumin (3.5-5.0) g/dL Assessment and Plan Assessment: Acute hypoxemic respiratory failure, secondary to acute systolic CHF, pulmonary edema, ischemic cardiomyopathy, and acute ST segment elevation myocardial infarction. Status post intubation and mechanical ventilation, on 08/13/2022. Status post stent placement, right coronary artery, 08/13/2022. Patient very poorly responsive, rule out anoxic brain injury. Possible aspiration pneumonia. Acute diabetic ketoacidosis. Acute kidney injury. History of asthma. Degenerative joint disease. Fungal dermatitis, involving the right groin area. Plan: Plan dated 08/15/2022. The patient's insulin drip can be discontinued. The patient's sugar is better control, to gap is closed, and the bicarbonate concentration is in normal range. We'll put the patient on NovoLog sliding scale, every 6 hours. Also, we added updrafts treatments, and we will attempt to get the patient off of Nimbex. Labs, x-rays, and medications are reviewed. We will continue to follow make recommendations along the way. Prognosis is guarded. Plan dated 08/16/2022. The patient is currently on Rocephin, which should cover the H. influenzae in the sputum. We have been able to successfully wean off the Nimbex. Patient remains on the mechanical ventilator. He is getting tube feeds at goal. We will do a daily interruption of sedation today. FiO2 was dropped from 50%, down to 40%. Labs, x-rays, and medications are reviewed. Overall prognosis remains guarded. We will continue to follow the patient make recommendations along the way. Plan dated 08/17/2022. The patient saline IV is discontinued in favor of D5W at 100 mL an hour. In addition, we added amlodipine, and possibly Cleveprex, for better blood pressure control. The patient will have a head CT without contrast, a stat EEG, and a neurology consultation. It's quite concerning that the patient has been off of propofol for some time, and he does not respond. Labs, x-rays, and medications are reviewed. Overall prognosis remains very guarded. Time with Patient: Greater than 30
[2022-08-17 11:56] LABS: Glucose,Whole Blood 308 mg/dL (70-110)
[2022-08-17] MEDS: PANTOPRAZOLE 40 MG/10 ML VIAL IVP SCH (12:30)
--- NOTE | 2022-08-17 14:03 | P.CNNES ---
History of Present Illness Consult date: 08/17/22 Requesting physician: Anya Waldrop Reason for Consult: AMS, post arrest History of Present Illness: Patient is a 67-year-old male who came to the hospital on 08/12/2022 at 11:58 PM for shortness of breath and chest pain and significant respiratory distress. Patient also had some altered mental status. When patient arrived in the ER, patient was started on BiPAP. Apparently he became worse, and deteriorated rapidly therefore was intubated in the ER. Patient never lost his pulse as per nursing report. Patient was diagnosed with STEMI for which he underwent cardiac catheterization in which he underwent stenting to the RCA. Patient also had borderline DKA for which he was started on insulin drip. Patient admitted to ICU. He was on sedation. The sedation was stopped today at 10:30 AM today. Patient is not showing significant neurological improvement, therefore neurology was consulted. Patient has history of diabetes with neuropathy, asthma, lumbar surgery in the past, and moderate to severe aortic stenosis. Blood test on arrival with WBC 13.8 hemoglobin 12.4, platelets 369. PT/PTT is normal. Sodium 133 potassium 3.8, BUN 57, creatinine 1.97 which went up to 59 and 2.20 respectively. His blood sugar was 6 and 35. Troponin was elevated 3.39. Acetone was positive. Patient's most recent blood test shows to be BC 8.6 hemoglobin 10.1, platelets 255. TSH is 7.49, pCO2 39 and pO2 107. Saturat ion is 99%. Sodium 150, potassium 3.7, BUN 70, creatinine 1.48. Hemoglobin A1c 9.2 2-D echo revealed mildly increased septal wall thickness. Left-ventricular ejection fraction is estimated at 40-45%. Inferior hypokinesis. Moderate to severe aortic stenosis with possible degree of low flow low gradient aortic stenosis. Chest x-ray showed similar right perihilar airspace opacities. Spoke to patient's daughter. She denies patient any history of smoking. He does not take any antiplatelet medication at home. Review of Systems Patient's family not available. Per nursing report, as mentioned above. No other review of systems available. ROS unobtainable: due to endotracheal tube, due to mental status Past Medical History Past Medical History: Asthma, Diabetes Mellitus, Osteoarthritis (OA) Additional Past Medical History / Comment(s): HX OF BACK SURGERY WITH BACK PAIN, DIABETIC NEUROPATHY, HEART MURMUR., KERATOCONUS., STOOL TEST POSITIVE ., ECZEMA. History of Any Multi-Drug Resistant Organisms: None Reported Past Surgical History: Back Surgery Additional Past Surgical History / Comment(s): BACK SURGERY WITH DISC REMOVED AND FUSION., VASECTOMY, LEFT GREAT TOE. Past Anesthesia/Blood Transfusion Reactions: No Reported Reaction Past Psychological History: No Psychological Hx Reported Past Alcohol Use History: None Reported Past Drug Use History: None Reported - Past Family History Mother Family Medical History: No Reported History Medications and Allergies Home Medications Medication Instructions Recorded Confirmed Type Metoprolol Tartrate [Lopressor] 50 mg PO BID 07/24/18 08/13/22 History amLODIPine [Norvasc] 10 mg PO DAILY 07/24/18 08/13/22 History glipiZIDE [Glucotrol] 5 mg PO AC-[id number] 07/24/18 08/13/22 History metFORMIN HCL [Glucophage] 500 mg PO BID 07/24/18 08/13/22 History traMADol HCL [Ultram] 50 mg PO QID PRN 07/24/18 08/13/22 History Atorvastatin [Lipitor] 40 mg PO DAILY 08/13/22 08/13/22 History DULoxetine HCL [Cymbalta] 60 mg PO DAILY 08/13/22 08/13/22 History Fenofibrate [Lofibra] 54 mg PO BID 08/13/22 08/13/22 History traZODone HCL 100 mg PO HS 08/13/22 08/13/22 History Allergies Allergy/AdvReac Type Severity Reaction Status Date / Time Penicillins Allergy Unknown Verified 08/13/22 14:15 Physical Examination - Vital Signs Vital Signs: Vital Signs Temp Pulse Resp BP Pulse Ox FiO2 08/17/22 09:00 111 H 26 H 147/84 99 08/17/22 08:00 99.3 F 107 H 0 L 129/79 98 40 08/17/22 07:44 101 H 08/17/22 07:32 103 H 08/17/22 07:29 40 08/17/22 07:00 105 H 26 H 127/77 99 40 08/17/22 06:00 107 H 26 H 147/79 99 40 08/17/22 05:00 104 H 26 H 146/79 98 40 08/17/22 04:00 98.3 F 101 H 26 H 124/72 98 40 08/17/22 03:32 26 H 40 08/17/22 03:31 40 08/17/22 03:08 100 08/17/22 03:00 98 26 H 122/69 99 40 08/17/22 02:53 96 08/17/22 02:37 40 08/17/22 02:00 97 26 H 121/65 98 40 08/17/22 01:00 100 26 H 115/67 97 40 08/17/22 00:00 99 F 102 H 26 H 115/66 99 40 08/16/22 23:30 105 H 08/16/22 23:15 105 H 08/16/22 23:14 40 08/16/22 23:00 107 H 26 H 154/84 99 40 08/16/22 22:00 98 26 H 117/71 100 40 08/16/22 21:00 101 H 26 H 161/82 99 40 08/16/22 20:00 99.2 F 113 H 26 H 132/71 99 40 08/16/22 19:28 104 H 08/16/22 19:15 105 H 08/16/22 19:13 40 08/16/22 19:00 105 H 26 H 148/79 99 08/16/22 18:00 99.2 F 106 H 10 L 145/74 99 40 08/16/22 17:00 106 H 10 L 131/73 99 08/16/22 16:00 99.8 F H 98 26 H 152/81 99 40 08/16/22 15:25 101 H 08/16/22 15:13 105 H 40 08/16/22 15:00 107 H 20 156/82 99 08/16/22 14:00 100.1 F H 106 H 26 H 155/82 99 40 08/16/22 13:00 106 H 26 H 150/82 98 08/16/22 12:00 98.6 F 99 27 H 159/80 97 40 08/16/22 11:19 93 08/16/22 11:05 91 08/16/22 11:00 92 23 115/64 97 08/16/22 10:58 40 Intake and Output 08/16/22 08/17/22 08/17/22 22:59 06:59 14:59 Intake Total 295 140 72 Output Total 1495 1060 345 Balance -1200 -920 -273 Intake: IV 160 140 0.9 KVO 160 140 Tube Feeding 105 42 Other 30 30 Output: Urine 1495 1060 345 Other: Voiding Method Indwelling Catheter Indwelling Catheter Weight 94.8 kg ABP, PAP, CO, CI - Last 8 Hours Arterial Blood Pressure 157/58 Arterial Blood Pressure 159/56 Arterial Blood Pressure 134/52 Arterial Blood Pressure 159/59 Arterial Blood Pressure 152/59 Arterial Blood Pressure 153/57 Arterial Blood Pressure 153/58 Patient is an elderly male, who is intubated, off sedation since 10:30 AM. Patient is comatose, not responding to painful stimuli. GCS is 3. On cranial nerve examination, pupils are equal, round and reacting to light, corneals are present. Oculocephalics minimally present. Lower cranial nerves cannot be tested in detail. Patient does have a gag and cough. On muscle strength testing, patient does not respond to painful stimuli. Deep tendon reflexes are (right/left) biceps trace/trace, brachioradialis trace/trace, knee 2/1, ankles 0/0, plantar is up on the right, flat on the left. Sensory patient does not respond to painful stimuli. Cerebellar and gait cannot be tested. Tone is equal bilaterally. No seizure- like activity noticed. On general examination, there is no carotid bruit. Patient does have a murmur. Chest auscultation revealed bilateral rhonchi. No wheezes. Abdomen is soft nontender. No organomegaly, bowel sounds present. Peripheral pulses are present. Patient has peripheral edema. Results - Laboratory Findings CBC and BMP: 08/17/22 04:22 08/17/22 04:22 Abnormal Lab Findings: Abnormal Labs 08/13/22 08/13/22 08/13/22 00:11 00:11 00:11 WBC 13.8 H RBC 4.01 L Hgb 12.4 L Hct 38.7 L Neutrophils # 12.4 H Lymphocytes # 0.6 L PT INR APTT 21.8 L ABG pH ABG pCO2 ABG pO2 ABG HCO3 ABG Total CO2 ABG O2 Saturation Sodium 133 L Potassium Chloride 96 L Carbon Dioxide 13 L BUN 57 H Creatinine 1.97 H Glucose 635 H* POC Glucose (mg/dL) Calcium Phosphorus Magnesium Alkaline Phosphatase 152 H Troponin I Total Protein Albumin Procalcitonin Urine Protein Urine Glucose (UA) Urine Ketones Urine WBC Hyaline Casts 08/13/22 08/13/22 08/13/22 00:11 02:20 02:58 WBC RBC Hgb Hct Neutrophils # Lymphocytes # PT INR APTT ABG pH 7.23 L ABG pCO2 ABG pO2 53 L* ABG HCO3 15 L ABG Total CO2 17 L ABG O2 Saturation 82.9 L Sodium Potassium Chloride Carbon Dioxide BUN Creatinine Glucose POC Glucose (mg/dL) >600 H Calcium Phosphorus Magnesium Alkaline Phosphatase Troponin I 3.390 H* Total Protein Albumin Procalcitonin Urine Protein Urine Glucose (UA) Urine Ketones Urine WBC Hyaline Casts 08/13/22 08/13/22 08/13/22 03:21 03:46 03:46 WBC 12.9 H RBC 3.60 L Hgb 11.2 L Hct 35.5 L Neutrophils # 11.7 H Lymphocytes # 0.5 L PT 13.0 H INR 1.2 H APTT >200.0 H* ABG pH ABG pCO2 ABG pO2 ABG HCO3 ABG Total CO2 ABG O2 Saturation Sodium Potassium Chloride Carbon Dioxide BUN Creatinine Glucose POC Glucose (mg/dL) Calcium Phosphorus Magnesium Alkaline Phosphatase Troponin I Total Protein Albumin Procalcitonin Urine Protein Trace H Urine Glucose (UA) 4+ H Urine Ketones Trace H Urine WBC 6 H Hyaline Casts 12 H 08/13/22 08/13/22 08/13/22 03:46 04:54 05:51 WBC RBC Hgb Hct Neutrophils # Lymphocytes # PT INR APTT ABG pH 7.30 L ABG pCO2 ABG pO2 ABG HCO3 19 L ABG Total CO2 ABG O2 Saturation 97.3 H Sodium 132 L Potassium Chloride Carbon Dioxide 12 L BUN 59 H Creatinine 2.20 H Glucose 636 H* POC Glucose (mg/dL) >600 H Calcium Phosphorus 5.7 H Magnesium Alkaline Phosphatase Troponin I Total Protein Albumin Procalcitonin Urine Protein Urine Glucose (UA) Urine Ketones Urine WBC Hyaline Casts 08/13/22 08/13/22 08/13/22 06:03 07:00 07:55 WBC RBC Hgb Hct Neutrophils # Lymphocytes # PT INR APTT ABG pH ABG pCO2 ABG pO2 ABG HCO3 ABG Total CO2 ABG O2 Saturation Sodium Potassium Chloride Carbon Dioxide BUN Creatinine Glucose POC Glucose (mg/dL) 510 H 452 H 374 H Calcium Phosphorus Magnesium Alkaline Phosphatase Troponin I Total Protein Albumin Procalcitonin Urine Protein Urine Glucose (UA) Urine Ketones Urine WBC Hyaline Casts 08/13/22 08/13/22 08/13/22 10:06 10:10 10:10 WBC RBC Hgb Hct Neutrophils # Lymphocytes # PT INR APTT ABG pH ABG pCO2 ABG pO2 ABG HCO3 ABG Total CO2 ABG O2 Saturation Sodium Potassium 3.1 L Chloride Carbon Dioxide 21 L BUN 60 H Creatinine 2.38 H Glucose POC Glucose (mg/dL) 225 H Calcium Phosphorus 5.0 H Magnesium Alkaline Phosphatase Troponin I Total Protein Albumin Procalcitonin Urine Protein Urine Glucose (UA) Urine Ketones Urine WBC Hyaline Casts 08/13/22 08/13/22 08/13/22 10:10 10:59 11:20 WBC RBC Hgb Hct Neutrophils # Lymphocytes # PT INR APTT ABG pH 7.24 L ABG pCO2 51 H ABG pO2 125 H ABG HCO3 ABG Total CO2 ABG O2 Saturation 98.3 H Sodium Potassium Chloride Carbon Dioxide BUN Creatinine Glucose POC Glucose (mg/dL) 177 H Calcium Phosphorus Magnesium Alkaline Phosphatase Troponin I Total Protein Albumin Procalcitonin 1.92 H Urine Protein Urine Glucose (UA) Urine Ketones Urine WBC Hyaline Casts 08/13/22 08/13/22 08/13/22 11:57 15:05 15:49 WBC RBC Hgb Hct Neutrophils # Lymphocytes # PT INR APTT ABG pH 7.32 L ABG pCO2 ABG pO2 75 L ABG HCO3 ABG Total CO2 ABG O2 Saturation Sodium Potassium Chloride Carbon Dioxide BUN Creatinine Glucose POC Glucose (mg/dL) 135 H 129 H Calcium Phosphorus Magnesium Alkaline Phosphatase Troponin I Total Protein Albumin Procalcitonin Urine Protein Urine Glucose (UA) Urine Ketones Urine WBC Hyaline Casts 08/13/22 08/13/22 08/13/22 15:50 16:55 17:52 WBC RBC Hgb Hct Neutrophils # Lymphocytes # PT INR APTT ABG pH ABG pCO2 ABG pO2 ABG HCO3 ABG Total CO2 ABG O2 Saturation Sodium Potassium 3.4 L Chloride Carbon Dioxide 20 L BUN 62 H Creatinine 2.41 H Glucose 122 H POC Glucose (mg/dL) 139 H 132 H Calcium 8.2 L Phosphorus 6.1 H Magnesium Alkaline Phosphatase Troponin I Total Protein Albumin Procalcitonin Urine Protein Urine Glucose (UA) Urine Ketones Urine WBC Hyaline Casts 08/13/22 08/13/22 08/13/22 18:55 20:04 20:06 WBC RBC Hgb Hct Neutrophils # Lymphocytes # PT INR APTT ABG pH ABG pCO2 ABG pO2 ABG HCO3 ABG Total CO2 ABG O2 Saturation Sodium 136 L Potassium Chloride Carbon Dioxide 20 L BUN 63 H Creatinine 2.68 H Glucose 155 H POC Glucose (mg/dL) 145 H 162 H Calcium 8.1 L Phosphorus 6.3 H Magnesium Alkaline Phosphatase Troponin I Total Protein Albumin Procalcitonin Urine Protein Urine Glucose (UA) Urine Ketones Urine WBC Hyaline Casts 08/13/22 08/13/22 08/13/22 21:07 22:03 23:00 WBC RBC Hgb Hct Neutrophils # Lymphocytes # PT INR APTT ABG pH ABG pCO2 ABG pO2 ABG HCO3 ABG Total CO2 ABG O2 Saturation Sodium Potassium Chloride Carbon Dioxide BUN Creatinine Glucose POC Glucose (mg/dL) 192 H 176 H 201 H Calcium Phosphorus Magnesium Alkaline Phosphatase Troponin I Total Protein Albumin Procalcitonin Urine Protein Urine Glucose (UA) Urine Ketones Urine WBC Hyaline Casts 08/14/22 08/14/22 08/14/22 00:00 00:00 00:03 WBC RBC Hgb Hct Neutrophils # Lymphocytes # PT INR APTT 51.3 H ABG pH ABG pCO2 ABG pO2 ABG HCO3 ABG Total CO2 ABG O2 Saturation Sodium 136 L Potassium Chloride Carbon Dioxide 20 L BUN 64 H Creatinine 2.64 H Glucose 204 H POC Glucose (mg/dL) 207 H Calcium 7.9 L Phosphorus 5.6 H Magnesium Alkaline Phosphatase Troponin I Total Protein Albumin Procalcitonin Urine Protein Urine Glucose (UA) Urine Ketones Urine WBC Hyaline Casts 08/14/22 08/14/22 08/14/22 01:07 02:09 03:31 WBC RBC Hgb Hct Neutrophils # Lymphocytes # PT INR APTT ABG pH ABG pCO2 ABG pO2 ABG HCO3 ABG Total CO2 ABG O2 Saturation Sodium Potassium Chloride Carbon Dioxide BUN Creatinine Glucose POC Glucose (mg/dL) 216 H 242 H 270 H Calcium Phosphorus Magnesium Alkaline Phosphatase Troponin I Total Protein Albumin Procalcitonin Urine Protein Urine Glucose (UA) Urine Ketones Urine WBC Hyaline Casts 08/14/22 08/14/22 08/14/22 04:21 05:25 05:49 WBC RBC Hgb Hct Neutrophils # Lymphocytes # PT INR APTT ABG pH ABG pCO2 ABG pO2 75 L ABG HCO3 ABG Total CO2 ABG O2 Saturation Sodium Potassium Chloride Carbon Dioxide BUN Creatinine Glucose POC Glucose (mg/dL) 276 H 276 H Calcium Phosphorus Magnesium Alkaline Phosphatase Troponin I Total Protein Albumin Procalcitonin Urine Protein Urine Glucose (UA) Urine Ketones Urine WBC Hyaline Casts 08/14/22 08/14/22 08/14/22 06:16 07:07 07:50 WBC 12.0 H RBC 3.43 L Hgb 10.6 L Hct 31.8 L Neutrophils # 10.1 H Lymphocytes # 0.8 L PT INR APTT ABG pH ABG pCO2 ABG pO2 ABG HCO3 ABG Total CO2 ABG O2 Saturation Sodium Potassium Chloride Carbon Dioxide BUN Creatinine Glucose POC Glucose (mg/dL) 271 H 238 H Calcium Phosphorus Magnesium Alkaline Phosphatase Troponin I Total Protein Albumin Procalcitonin Urine Protein Urine Glucose (UA) Urine Ketones Urine WBC Hyaline Casts 08/14/22 08/14/22 08/14/22 07:50 08:14 08:14 WBC RBC Hgb Hct Neutrophils # Lymphocytes # PT INR APTT ABG pH ABG pCO2 ABG pO2 ABG HCO3 ABG Total CO2 ABG O2 Saturation Sodium 136 L Potassium Chloride Carbon Dioxide 21 L BUN 65 H Creatinine 2.58 H Glucose 236 H POC Glucose (mg/dL) 261 H 261 H Calcium 7.7 L Phosphorus Magnesium Alkaline Phosphatase Troponin I Total Protein Albumin Procalcitonin Urine Protein Urine Glucose (UA) Urine Ketones Urine WBC Hyaline Casts 08/14/22 08/14/22 08/14/22 09:51 10:54 12:11 WBC RBC Hgb Hct Neutrophils # Lymphocytes # PT INR APTT ABG pH ABG pCO2 ABG pO2 ABG HCO3 ABG Total CO2 ABG O2 Saturation Sodium Potassium Chloride Carbon Dioxide BUN Creatinine Glucose POC Glucose (mg/dL) 265 H 232 H 196 H Calcium Phosphorus Magnesium Alkaline Phosphatase Troponin I Total Protein Albumin Procalcitonin Urine Protein Urine Glucose (UA) Urine Ketones Urine WBC Hyaline Casts 08/14/22 08/14/22 08/14/22 13:23 14:29 15:34 WBC RBC Hgb Hct Neutrophils # Lymphocytes # PT INR APTT ABG pH ABG pCO2 ABG pO2 ABG HCO3 ABG Total CO2 ABG O2 Saturation Sodium Potassium Chloride Carbon Dioxide BUN Creatinine Glucose POC Glucose (mg/dL) 153 H 159 H 134 H Calcium Phosphorus Magnesium Alkaline Phosphatase Troponin I Total Protein Albumin Procalcitonin Urine Protein Urine Glucose (UA) Urine Ketones Urine WBC Hyaline Casts 08/14/22 08/14/22 08/14/22 16:23 17:13 18:54 WBC RBC Hgb Hct Neutrophils # Lymphocytes # PT INR APTT ABG pH ABG pCO2 ABG pO2 ABG HCO3 ABG Total CO2 ABG O2 Saturation Sodium Potassium Chloride Carbon Dioxide BUN Creatinine Glucose POC Glucose (mg/dL) 130 H 167 H 158 H Calcium Phosphorus Magnesium Alkaline Phosphatase Troponin I Total Protein Albumin Procalcitonin Urine Protein Urine Glucose (UA) Urine Ketones Urine WBC Hyaline Casts 08/14/22 08/14/22 08/14/22 19:57 19:58 21:00 WBC RBC Hgb Hct Neutrophils # Lymphocytes # PT INR APTT ABG pH ABG pCO2 ABG pO2 ABG HCO3 ABG Total CO2 ABG O2 Saturation Sodium Potassium Chloride Carbon Dioxide BUN 60 H Creatinine 2.14 H Glucose 167 H POC Glucose (mg/dL) 176 H 161 H Calcium 7.8 L Phosphorus Magnesium Alkaline Phosphatase Troponin I Total Protein Albumin Procalcitonin Urine Protein Urine Glucose (UA) Urine Ketones Urine WBC Hyaline Casts 08/14/22 08/14/22 08/15/22 21:54 23:04 00:10 WBC RBC Hgb Hct Neutrophils # Lymphocytes # PT INR APTT ABG pH ABG pCO2 ABG pO2 ABG HCO3 ABG Total CO2 ABG O2 Saturation Sodium Potassium Chloride Carbon Dioxide BUN Creatinine Glucose POC Glucose (mg/dL) 166 H 197 H 204 H Calcium Phosphorus Magnesium Alkaline Phosphatase Troponin I Total Protein Albumin Procalcitonin Urine Protein Urine Glucose (UA) Urine Ketones Urine WBC Hyaline Casts 08/15/22 08/15/22 08/15/22 01:14 01:53 03:11 WBC RBC Hgb Hct Neutrophils # Lymphocytes # PT INR APTT ABG pH ABG pCO2 ABG pO2 ABG HCO3 ABG Total CO2 ABG O2 Saturation Sodium Potassium Chloride Carbon Dioxide BUN 62 H Creatinine 1.95 H Glucose 238 H POC Glucose (mg/dL) 220 H 236 H Calcium 7.7 L Phosphorus Magnesium Alkaline Phosphatase Troponin I Total Protein Albumin Procalcitonin Urine Protein Urine Glucose (UA) Urine Ketones Urine WBC Hyaline Casts 08/15/22 08/15/22 08/15/22 03:11 04:18 05:04 WBC RBC Hgb Hct Neutrophils # Lymphocytes # PT INR APTT ABG pH ABG pCO2 ABG pO2 ABG HCO3 ABG Total CO2 ABG O2 Saturation Sodium Potassium Chloride Carbon Dioxide BUN Creatinine Glucose POC Glucose (mg/dL) 243 H 243 H 240 H Calcium Phosphorus Magnesium Alkaline Phosphatase Troponin I Total Protein Albumin Procalcitonin Urine Protein Urine Glucose (UA) Urine Ketones Urine WBC Hyaline Casts 08/15/22 08/15/22 08/15/22 05:51 06:01 06:14 WBC 12.5 H RBC 3.32 L Hgb 10.2 L Hct 30.8 L Neutrophils # 10.8 H Lymphocytes # 0.7 L PT INR APTT ABG pH ABG pCO2 ABG pO2 82 L ABG HCO3 ABG Total CO2 26 H ABG O2 Saturation 97.2 H Sodium Potassium Chloride Carbon Dioxide BUN Creatinine Glucose POC Glucose (mg/dL) 261 H Calcium Phosphorus Magnesium Alkaline Phosphatase Troponin I Total Protein Albumin Procalcitonin Urine Protein Urine Glucose (UA) Urine Ketones Urine WBC Hyaline Casts 08/15/22 08/15/22 08/15/22 07:00 07:06 08:02 WBC RBC Hgb Hct Neutrophils # Lymphocytes # PT INR APTT ABG pH ABG pCO2 ABG pO2 ABG HCO3 ABG Total CO2 ABG O2 Saturation Sodium Potassium Chloride 109 H Carbon Dioxide BUN 64 H Creatinine 2.03 H Glucose 243 H POC Glucose (mg/dL) 244 H 257 H Calcium 7.7 L Phosphorus 5.0 H Magnesium Alkaline Phosphatase Troponin I Total Protein 5.1 L Albumin 2.7 L Procalcitonin Urine Protein Urine Glucose (UA) Urine Ketones Urine WBC Hyaline Casts 08/15/22 08/15/22 08/15/22 09:08 11:30 14:53 WBC RBC Hgb Hct Neutrophils # Lymphocytes # PT INR APTT ABG pH ABG pCO2 ABG pO2 ABG HCO3 ABG Total CO2 ABG O2 Saturation Sodium Potassium Chloride Carbon Dioxide BUN Creatinine Glucose POC Glucose (mg/dL) 257 H 265 H 226 H Calcium Phosphorus Magnesium Alkaline Phosphatase Troponin I Total Protein Albumin Procalcitonin Urine Protein Urine Glucose (UA) Urine Ketones Urine WBC Hyaline Casts 08/15/22 08/15/22 08/16/22 15:00 17:30 04:10 WBC 11.0 H RBC 3.10 L Hgb 9.5 L Hct 29.1 L Neutrophils # Lymphocytes # PT INR APTT ABG pH ABG pCO2 ABG pO2 ABG HCO3 ABG Total CO2 ABG O2 Saturation Sodium Potassium Chloride 108 H Carbon Dioxide BUN 72 H Creatinine 2.08 H Glucose 223 H POC Glucose (mg/dL) 192 H Calcium 7.8 L Phosphorus 5.0 H Magnesium 2.4 H Alkaline Phosphatase Troponin I Total Protein Albumin Procalcitonin Urine Protein Urine Glucose (UA) Urine Ketones Urine WBC Hyaline Casts 08/16/22 08/16/22 08/16/22 04:10 05:45 05:52 WBC RBC Hgb Hct Neutrophils # Lymphocytes # PT INR APTT ABG pH ABG pCO2 ABG pO2 134 H ABG HCO3 26 H ABG Total CO2 28 H ABG O2 Saturation 99.5 H Sodium Potassium Chloride 110 H Carbon Dioxide BUN 76 H Creatinine 2.32 H Glucose 140 H POC Glucose (mg/dL) 166 H Calcium 8.1 L Phosphorus 6.2 H Magnesium 2.4 H Alkaline Phosphatase Troponin I Total Protein 5.0 L Albumin 2.6 L Procalcitonin Urine Protein Urine Glucose (UA) Urine Ketones Urine WBC Hyaline Casts 08/16/22 08/16/22 08/16/22 11:58 17:48 23:04 WBC RBC Hgb Hct Neutrophils # Lymphocytes # PT INR APTT ABG pH ABG pCO2 ABG pO2 ABG HCO3 ABG Total CO2 ABG O2 Saturation Sodium Potassium Chloride Carbon Dioxide BUN Creatinine Glucose POC Glucose (mg/dL) 156 H 148 H 187 H Calcium Phosphorus Magnesium Alkaline Phosphatase Troponin I Total Protein Albumin Procalcitonin Urine Protein Urine Glucose (UA) Urine Ketones Urine WBC Hyaline Casts 08/17/22 08/17/22 08/17/22 00:06 04:22 04:22 WBC RBC 3.34 L Hgb 10.1 L Hct 31.6 L Neutrophils # Lymphocytes # 0.6 L PT INR APTT ABG pH ABG pCO2 ABG pO2 ABG HCO3 ABG Total CO2 ABG O2 Saturation Sodium 150 H Potassium Chloride 113 H Carbon Dioxide BUN 70 H Creatinine 1.48 H Glucose 269 H POC Glucose (mg/dL) 192 H Calcium Phosphorus Magnesium Alkaline Phosphatase Troponin I Total Protein Albumin Procalcitonin Urine Protein Urine Glucose (UA) Urine Ketones Urine WBC Hyaline Casts 08/17/22 08/17/22 08/17/22 05:12 05:35 06:05 WBC RBC Hgb Hct Neutrophils # Lymphocytes # PT INR APTT ABG pH 7.49 H ABG pCO2 ABG pO2 ABG HCO3 29 H ABG Total CO2 30 H ABG O2 Saturation 99.0 H Sodium Potassium Chloride Carbon Dioxide BUN Creatinine Glucose POC Glucose (mg/dL) 257 H 267 H Calcium Phosphorus Magnesium Alkaline Phosphatase Troponin I Total Protein Albumin Procalcitonin Urine Protein Urine Glucose (UA) Urine Ketones Urine WBC Hyaline Casts Assessment and Plan Assessment: * Altered mental status, likely due to toxic metabolic encephalopathy. * Acute hypoxic respiratory failure on mechanical ventilation * Acute systolic CHF, pulmonary edema, ischemic cardiomyopathy, acute STEMI * Status post cardiac stent placement RCA 08/13/2022 * Diabetic ketoacidosis * Acute renal failure * History of asthma * Anemia Plan: * EEG was performed, which was abnormal due to background slowing of severe degr ee. This is suggestive of generalized cerebral dysfunction as can be seen with toxic metabolic encephalopathy or due to diffuse structural brain abnormality. Clinical correlation is recommended. No epileptiform activity was seen. * Await CT head to rule out intracranial process. * Medical management for various toxic metabolic causes as mentioned above as per IM, critical care and other specialties. * DVT prophylaxis: Patient on IV heparin. * Dr. Ab Vega Will resume neurology service in the morning. * Discussed with patient's nurse in detail. Thank you for the consult. Addendum: CT head was performed, which revealed acute/subacute CVA on the medial aspect of the right cerebellar hemisphere. Additional acute/subacute CVA including the left frontal/parietal lobe deep white matter and right temporal lobe. I personally reviewed CT head, agreed with the findings. I came back to the ICU, and patient's daughter was present. Informed her about the results of CT head, reviewed CT films with her on the computer. All questions were answered. Prognosis discussed. Thereafter met patient's girlfriend separately and also informed the same to her. Spent 25 minutes exclusively in counseling. 2-D echo from 08/13/2022 revealed mildly increase septal wall thickness. Left ventricular systolic function is decreased at 40-45%. Inferior hypokinesis. Moderate to severe aortic stenosis. Patient's CVA is most likely embolic from cardiac source. However we will check carotid Doppler to rule out stenosis. Patient currently on aspirin 81 mg daily and Brilinta 90 mg twice a day. Consider LUCA rule out any cardioembolic source. Cardiology on board. Hemoglobin A1c 9.2. Recommend optimize control of diabetes. Telemetry monitoring rule out paroxysmal atrial fibrillation. Fasting lipid panel. Suggest repeating CT head in 1-2 days depending on clinical progress. Time with Patient: Greater than 30
--- NOTE | 2022-08-17 14:43 | PN ---
PROGRESS NOTE SUBJECTIVE: Mr. Mantilla remains on a ventilator. He is in a sinus rhythm. First-degree AV block is less apparent. He is slightly tachycardic and also hypertensive. I am recommending to increase metoprolol to 25 mg t.i.d., and add hydralazine 25 mg b.i.d. He is still on a ventilator. Weaning efforts in progress. OBJECTIVE: HEART: S1 and S2 heard normally. Short systolic murmur noted. LUNGS: Reveal diminished air entry. ABDOMEN: Unchanged. LOWER EXTREMITIES: Unchanged. PROGNOSIS: Remains guarded. MMODL / IJN: [id number] /
--- NOTE | 2022-08-17 15:09 | CT ---
EXAMINATION TYPE: CT brain wo con CT DLP: 1151.4 mGycm, Automated exposure control for dose reduction was used. DATE OF EXAM: 08/17/2022 2:12 PM COMPARISON: None. CLINICAL INDICATION:Male, 67 years old with history of AMS, ams, unresponsive TECHNIQUE: Brain: Axial CT images of the brain were obtained with coronal and sagittal reformats created and rev iewed. Contrast used: None. Oral contrast used: None. FINDINGS: Brain: Extra-axial spaces: No abnormal extra-axial fluid collections. Ventricular system: Within normal limits Cerebral parenchyma: Hypodensity within the left frontal lobe subcortical white matter. Additional lo ss of koenig-white junction noted in the right middle cranial fossa temporal lobe. No acute intraparenc hymal hemorrhage or mass effect. Cerebellum: Loss of koenig-white differentiation involving the medial aspect of the right cerebellar he misphere. Mass effect: No evidence of midline shift. Intracranial vasculature: unremarkable Soft tissues: Normal. Calvarium/osseous structures: No depressed skull fracture. Paranasal sinuses and mastoid air cells: Mild scattered paranasal sinus disease. Visualized orbits: Orbital contents are intact. 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 Additional Acute/subacute CVA including the left frontal/parietal lobe deep white matter and right temporal lobe. Correlate fo r embolic phenomenon. Findings communicated to patients nurse named: Nette on 08/17/2022 3:[address] Rodger Staton.
--- NOTE | 2022-08-17 16:36 | P.PN ---
Subjective Patient is seen for follow-up for acute kidney injury associated with hypotension and acute IN. Maintained on IV Lasix. Patient has had good urine output. Patient has been off of sedation this morning and has had no neurological response. He will be heading down for CT of the head. FiO2 at 40%. Urine output at 4 L for 24 hours. Sodium was 150 and patient was started on D5W this morning. Objective - Vital Signs Vital signs: Vital Signs Temp 98.8 F 08/17/22 16:00 Pulse 105 H 08/17/22 16:00 Resp 26 H 08/17/22 16:00 BP 147/80 08/17/22 16:00 Pulse Ox 100 08/17/22 16:00 FiO2 40 08/17/22 16:00 Intake & Output 08/16/22 08/17/22 08/17/22 18:59 06:59 18:59 Intake Total 693.421 785 5354 Output Total 2180 1910 1600 Balance -1486.440 -1710 -501 Weight 95.2 kg 94.8 kg Intake: IV 240 200 600 0.9 KVO 240 200 Dextrose 5% in Water 1, 600 000 ml @ 100 mls/hr IV . Q10H ONE Rx#:[id number] Intake, IV Titration 61.560 50 Amount cefTRIAXone 2 gm In 50 Sodium Chloride 0.9% 50 ml @ 100 mls/hr IVPB Q24HR [facility] Rx#:[id number] propofoL 1,000 mg In 61.560 Empty Bag 1 bag @ 30 MCG/ KG/MIN 18.27 mls/hr IV . Q5H29M [facility] Rx#:[id number] Oral 21 Tube Feeding 231 189 Other 140 260 Output: Urine 2180 1910 1600 Other: Voiding Method Indwelling Catheter Indwelling Catheter Indwelling Catheter ABP, PAP, CO, CI - Last Documented Arterial Blood Pressure 160/61 - Exam Patient is currently on the vent No significant neurological response post cessation of sedation Examination of the heart S1 and S2 Abdomen is soft nontender Examination of the lungs bilateral breath sounds are heard Examination lower extremities shows no significant edema IRON CASTER exam cannot be performed - Labs CBC & Chem 7: 08/17/22 04:22 08/17/22 04:22 Labs: Abnormal Lab Results - Last 24 Hours (Table) 08/16/22 08/16/22 08/17/22 Range/Units 17:48 23:04 00:06 RBC (4.30-5.90) m/uL Hgb (13.0-17.5) gm/dL Hct (39.0-53.0) % Lymphocytes # (1.0-4.8) k/uL ABG pH (7.35-7.45) ABG HCO3 (21-25) mmol/L ABG Total CO2 (19-24) mmol/L ABG O2 Saturation (94-97) % Sodium (137-145) mmol/L Chloride (98-107) mmol/L BUN (9-20) mg/dL Creatinine (0.66-1.25) mg/dL Glucose (74-99) mg/dL POC Glucose (mg/dL) 148 H 187 H 192 H (70-110) mg/dL Hemoglobin A1c (0.0-6.0) % 08/17/22 08/17/22 08/17/22 Range/Units 04:22 04:22 04:22 RBC 3.34 L (4.30-5.90) m/uL Hgb 10.1 L (13.0-17.5) gm/dL Hct 31.6 L (39.0-53.0) % Lymphocytes # 0.6 L (1.0-4.8) k/uL ABG pH (7.35-7.45) ABG HCO3 (21-25) mmol/L ABG Total CO2 (19-24) mmol/L ABG O2 Saturation (94-97) % Sodium 150 H (137-145) mmol/L Chloride 113 H (98-107) mmol/L BUN 70 H (9-20) mg/dL Creatinine 1.48 H (0.66-1.25) mg/dL Glucose 269 H (74-99) mg/dL POC Glucose (mg/dL) (70-110) mg/dL Hemoglobin A1c 9.2 H (0.0-6.0) % 08/17/22 08/17/22 08/17/22 Range/Units 05:12 05:35 06:05 RBC (4.30-5.90) m/uL Hgb (13.0-17.5) gm/dL Hct (39.0-53.0) % Lymphocytes # (1.0-4.8) k/uL ABG pH 7.49 H (7.35-7.45) ABG HCO3 29 H (21-25) mmol/L ABG Total CO2 30 H (19-24) mmol/L ABG O2 Saturation 99.0 H (94-97) % Sodium (137-145) mmol/L Chloride (98-107) mmol/L BUN (9-20) mg/dL Creatinine (0.66-1.25) mg/dL Glucose (74-99) mg/dL POC Glucose (mg/dL) 257 H 267 H (70-110) mg/dL Hemoglobin A1c (0.0-6.0) % 08/17/22 Range/Units 11:53 RBC (4.30-5.90) m/uL Hgb (13.0-17.5) gm/dL Hct (39.0-53.0) % Lymphocytes # (1.0-4.8) k/uL ABG pH (7.35-7.45) ABG HCO3 (21-25) mmol/L ABG Total CO2 (19-24) mmol/L ABG O2 Saturation (94-97) % Sodium (137-145) mmol/L Chloride (98-107) mmol/L BUN (9-20) mg/dL Creatinine (0.66-1.25) mg/dL Glucose (74-99) mg/dL POC Glucose (mg/dL) 308 H (70-110) mg/dL Hemoglobin A1c (0.0-6.0) % Assessment and Plan Assessment: 1. Acute kidney injury ATN currently nonoliguric secondary to hypotension and acute IN. UA is benign appearing with trace protein. 2. Acute inferior wall IN status post cardiac catheterization, angioplasty and and coronary stent placement of RCA 3. Hypotension associated with acute inferior IN and underlying pneumonia. Sputum culture grew Haemophilus influenza 4. Acute hypoxic respiratory failure secondary to pulmonary edema and possible aspiration pneumonia 5. DKA status post insulin drip 6. Cardiomyopathy with EF of 40-45% 7. Possible anoxic encephalopathy Plan: Decrease Lasix to once a day Agree with D5W Increase free water down the feeding tube to 100 mL every 4 hours
[2022-08-17 18:05] LABS: Glucose,Whole Blood 323 mg/dL (70-110)
[2022-08-17] MEDS: ATORVASTATIN 80 MG TAB PO SCH (20:17)
--- NOTE | 2022-08-17 20:36 | EEG ---
ELECTROENCEPHALOGRAM REPORT PREAMBLE: This is a 67-year-old male with altered mental status. Patient is comatose, with GCS of 3. EEG FINDINGS: This is a 21-channel digital EEG recorded with video component, utilizing 10/20 international system with referential and bipolar montages. Background consists of poorly developed and regulated moderate amplitude diffusely slow delta in 1-2 hertz activity in bihemispheric region. Background does not seem to be reactive to eye opening or closing. Photic stimulation was not done. Different stages of sleep were not seen. No focal or generalized epileptiform activity was seen. IMPRESSION: This is an abnormal EEG due to background slowing of severe degree. This is suggestive of generalized cerebral dysfunction as can be seen with toxic metabolic encephalopathy or due to diffuse structural brain abnormality. Clinical correlation is recommended. No epileptiform activity was seen. MMSARAHL / DAINN: [id number] / MTDD
[2022-08-17] MEDS: HYDROmorphone 0.5 MG/0.5 ML SYRINGE IVP PRN ×2 (20:48→23:13)
--- NOTE | 2022-08-17 22:50 | US ---
EXAMINATION TYPE: US carotid duplex BILAT DATE OF EXAM: 08/17/2022 COMPARISON: NONE CLINICAL HISTORY: CVA. CVA TECHNIQUE: Carotid duplex ultrasound examination. Indirect Doppler criteria was utilized. Limited due to pt being on a vent FINDINGS: EXAM MEASUREMENTS: RIGHT: Peak Systolic Velocity (PSV) cm/sec ----- Right CCA: 108.1 ----- Right ICA: 55.4 ----- Right ECA: 60.1 ICA/CCA ratio: 0.5 RIGHT: End Diastole cm/sec ----- Right CCA: 0.0 ----- Right ICA: 9.9 ----- Right ECA: 0.0 LEFT: Peak Systolic Velocity (PSV) cm/sec ----- Left CCA: 54.2 ----- Left ICA: 56.8 ----- Left ECA: 66.9 ICA/CCA ratio: 1.0 LEFT: End Diastole cm/sec ----- Left CCA: 6.3 ----- Left ICA: 0.0 ----- Left ECA: 3.2 VERTEBRALS (direction of flow): Right Vertebral: Not vis Left Vertebral: Not vis Rhythm: Normal CONSERVATION COORDINATOR NOTES: Plaque visualized in bilateral bulbs IMPRESSION: Vertebral artery flow was not demonstrated on this exam. There is plaque formation and images and measurements suggest 25% stenosis in both internal carotid a rteries. Criteria for Assigning % of Stenosis / Diameter reduction (Estimation based on the indirect measurements of the internal carotid artery velocities (ICA PSV). 1. Normal (no stenosis)=ICA PSV < 125 cm/s: ratio < 2.0: ICA EDV<40 cm/s. 2. Less than 50% stenosis=ICA PSV < 125 cm/s: ratio < 2.0: ICA EDV<40 cm/s. 3. 50 to 69% stenosis=ICA PSV of 125 to 230 cm/s: ration 2.0 ? 4.0: ICA EDV 40-100 cm/s. 4. Greater than 70% stenosis to near occlusion= ICA PSV > 230 cm/s: ratio > 4.0: ICA EDV > 100 cm/s. 5. Near occlusion= ICA PSV velocities may be low or undetectable: variable ratio and ICA EDV. 6. Total occlusion=unable to detect flow.
[2022-08-17 23:38] LABS: Glucose,Whole Blood 331 mg/dL (70-110)
[2022-08-17 23:59] LABS: Glucose,Whole Blood 321 mg/dL (70-110)
[2022-08-18] MEDS: HEPARIN SOD,PORK IN 0.45% NACL 25,000 UNIT in 0.45% NACL 1 250ML.BAG IV SCH (03:00)
[2022-08-18] MEDS: IPRATROPIUM-ALBUTEROL 3 ML NEB INHALATION SCH ×2 (03:13→09:07)
[2022-08-18] MEDS: HYDROmorphone 0.5 MG/0.5 ML SYRINGE IVP PRN ×3 (03:37→13:53)
[2022-08-18] MEDS: ARTIFICIAL TEARS-HYPROMELLOSE DROPS 15 ML BTL BOTH EYES SCH ×5 (04:23→19:54)
[2022-08-18 05:20] LABS: Calcium 8.8 mg/dL (8.4-10.2); Potassium 3.6 mmol/L (3.5-5.1)
[2022-08-18 05:22] LABS: Basophils % (A) 0 %; Eosinophils # (A) 0.2 k/uL (0-0.7); Eosinophils % (A) 2 %; HCT 31.6 % (39.0-53.0); Hypochromasia Moderate; Lymphocytes # (A) 0.9 k/uL (1.0-4.8); Lymphocytes % (A) 9 %; MCH 30.2 pg (25.0-35.0); MCHC 31.6 g/dL (31.0-37.0); MCV 95.6 fL (80.0-100.0); Mean Platelet Volume 8.4; Monocytes # (A) 0.5 k/uL (0-1.0); Monocytes % (A) 5 %; Neutrophils # (A) 7.6 k/uL (1.3-7.7); Neutrophils % (A) 82 %; Platelet Count 293 k/uL (150-450); RBC 3.31 m/uL (4.30-5.90); RDW 13.5 % (11.5-15.5); WBC 9.3 k/uL (3.8-10.6)
[2022-08-18 05:34] LABS: Glucose,Whole Blood 272 mg/dL (70-110)
[2022-08-18] MEDS: INSULIN ASPART (NovoLOG) 100 UNIT/ML VIAL SQ SCH ×6 (05:40→18:32)
[2022-08-18 05:59] LABS: Polychromasia Present
[2022-08-18] MEDS ORDERED: POTASSIUM BICARBONATE/CIT AC 20 MEQ TABLET.EFF NG-TUBE SCH (06:00)
[2022-08-18 06:01] LABS: Glucose,Whole Blood 250 mg/dL (70-110)
[2022-08-18 06:03] LABS: ABG Base Excess 10.1 mmol/L; ABG HCO3 32 mmol/L (21-25); ABG Oxygen Saturation 99.1 % (94-97); ABG PCO2 36 mmHg (35-45); ABG PO2 103 mmHg (83-108); ABG TCO2 34 mmol/L (19-24); Allen Test Performed? Yes
[2022-08-18] MEDS: INSULIN DETEMIR (LEVEMIR) 100 UNIT/ML SYR SQ SCH (06:03)
[2022-08-18 06:04] LABS: ABG PH 7.56 (7.35-7.45)
[2022-08-18] MEDS: DEXTROSE 5% IN WATER 1,000 ML IV ONE ×2 (07:08→16:39)
--- NOTE | 2022-08-18 07:32 | XR ---
EXAMINATION TYPE: XR chest 1V portable DATE OF EXAM: 08/18/2022 Comparison: 08/17/2022 Clinical History: 67-year-old male Tube placement Findings: ET tube tip just below the level of the medial clavicular heads, unchanged. NG tube courses below the diaphragm. Heart normal size. Increased interstitial density and patchy lower lung opacity are simil ar to prior exam. Impression: Some interstitial changes and patchy lower lung infiltrates similar to prior exam.
[2022-08-18] MEDS: ASPIRIN 81 MG PO SCH (08:20)
[2022-08-18] MEDS: amLODIPine 10 MG TAB PO SCH (08:20)
[2022-08-18] MEDS: FUROSEMIDE 10 MG/ML 4 ML VIAL IV SCH (08:20)
[2022-08-18] MEDS: PANTOPRAZOLE 40 MG/10 ML VIAL IVP SCH (08:20)
[2022-08-18] MEDS: hydrALAZINE HCL 25 MG TAB PO SCH ×2 (08:20→21:18)
[2022-08-18] MEDS: CHLORHEXIDINE GLUCONATE 15 ML CUP MUCOUS MEM SCH ×2 (08:21→21:17)
[2022-08-18] MEDS: METOPROLOL TARTRATE 25 MG TAB PO SCH ×3 (08:21→21:30)
[2022-08-18] MEDS: NYSTATIN 100,000UNIT/GM CREAM 30 GM TUBE TOPICAL SCH (08:22)
--- NOTE | 2022-08-18 10:16 | P.PN ---
Subjective Patient is seen for follow-up for acute kidney injury associated with hypotension and acute [place]. Maintained on IV Lasix. Patient has had good urine output. Patient has been off of sedation this morning and has had no neurological response. He will be heading down for CT of the head. FiO2 at 40%. Urine output at 4 L for 24 hours. Sodium was 150 and patient was started on D5W this morning. Na today is 149 Objective - Vital Signs Vital signs: Vital Signs Temp 98.9 F 08/18/22 08:00 Pulse 90 08/18/22 09:20 Resp 26 H 08/18/22 08:00 BP 128/75 08/18/22 07:00 Pulse Ox 100 08/18/22 08:00 FiO2 40 08/18/22 07:14 Intake & Output 08/17/22 08/18/22 08/18/22 18:59 06:59 18:59 Intake Total 1362 1752 342 Output Total 1775 1370 150 Balance -413 382 192 Weight 92.9 kg Intake: IV 800 1200 200 Dextrose 5% in Water 1, 800 1200 200 000 ml @ 100 mls/hr IV . Q10H ONE Rx#:[id number] Intake, IV Titration 50 Amount cefTRIAXone 2 gm In 50 Sodium Chloride 0.9% 50 ml @ 100 mls/hr IVPB Q24HR [facility] Rx#:[id number] Tube Feeding 252 252 42 Other 260 300 100 Output: Urine 1775 1370 150 Other: Voiding Method Indwelling Catheter Indwelling Catheter ABP, PAP, CO, CI - Last Documented Arterial Blood Pressure 165/64 - Exam Patient is currently on the vent No significant neurological response post cessation of sedation Examination of the heart S1 and S2 Abdomen is soft nontender Examination of the lungs bilateral breath sounds are heard Examination lower extremities shows no significant edema EGG WORKER exam cannot be performed - Labs CBC & Chem 7: 08/18/22 04:17 08/18/22 04:17 Labs: Abnormal Lab Results - Last 24 Hours (Table) 08/17/22 08/17/22 08/17/22 Range/Units 04:22 11:53 18:03 RBC (4.30-5.90) m/uL Hgb (13.0-17.5) gm/dL Hct (39.0-53.0) % Lymphocytes # (1.0-4.8) k/uL ABG pH (7.35-7.45) ABG HCO3 (21-25) mmol/L ABG Total CO2 (19-24) mmol/L ABG O2 Saturation (94-97) % Sodium (137-145) mmol/L Chloride (98-107) mmol/L Carbon Dioxide (22-30) mmol/L BUN (9-20) mg/dL Creatinine (0.66-1.25) mg/dL Glucose (74-99) mg/dL POC Glucose (mg/dL) 308 H 323 H (70-110) mg/dL Hemoglobin A1c 9.2 H (0.0-6.0) % 08/17/22 08/17/22 08/18/22 Range/Units 23:26 23:57 04:17 RBC 3.31 L (4.30-5.90) m/uL Hgb 10.0 L (13.0-17.5) gm/dL Hct 31.6 L (39.0-53.0) % Lymphocytes # 0.9 L (1.0-4.8) k/uL ABG pH (7.35-7.45) ABG HCO3 (21-25) mmol/L ABG Total CO2 (19-24) mmol/L ABG O2 Saturation (94-97) % Sodium (137-145) mmol/L Chloride (98-107) mmol/L Carbon Dioxide (22-30) mmol/L BUN (9-20) mg/dL Creatinine (0.66-1.25) mg/dL Glucose (74-99) mg/dL POC Glucose (mg/dL) 331 H 321 H (70-110) mg/dL Hemoglobin A1c (0.0-6.0) % 08/18/22 08/18/22 08/18/22 Range/Units 04:17 05:30 06:00 RBC (4.30-5.90) m/uL Hgb (13.0-17.5) gm/dL Hct (39.0-53.0) % Lymphocytes # (1.0-4.8) k/uL ABG pH 7.56 H* (7.35-7.45) ABG HCO3 32 H (21-25) mmol/L ABG Total CO2 34 H (19-24) mmol/L ABG O2 Saturation 99.1 H (94-97) % Sodium 149 H (137-145) mmol/L Chloride 113 H (98-107) mmol/L Carbon Dioxide 31 H (22-30) mmol/L BUN 63 H (9-20) mg/dL Creatinine 1.39 H (0.66-1.25) mg/dL Glucose 263 H (74-99) mg/dL POC Glucose (mg/dL) 272 H (70-110) mg/dL Hemoglobin A1c (0.0-6.0) % 08/18/22 Range/Units 06:00 RBC (4.30-5.90) m/uL Hgb (13.0-17.5) gm/dL Hct (39.0-53.0) % Lymphocytes # (1.0-4.8) k/uL ABG pH (7.35-7.45) ABG HCO3 (21-25) mmol/L ABG Total CO2 (19-24) mmol/L ABG O2 Saturation (94-97) % Sodium (137-145) mmol/L Chloride (98-107) mmol/L Carbon Dioxide (22-30) mmol/L BUN (9-20) mg/dL Creatinine (0.66-1.25) mg/dL Glucose (74-99) mg/dL POC Glucose (mg/dL) 250 H (70-110) mg/dL Hemoglobin A1c (0.0-6.0) % Assessment and Plan Assessment: 1. Acute kidney injury ATN currently nonoliguric secondary to hypotension and acute [place]. UA is benign appearing with trace protein. 2. Acute inferior wall [place] status post cardiac catheterization, angioplasty and and coronary stent placement of RCA 3. Hypotension associated with acute inferior [place] and underlying pneumonia. Sputum culture grew Haemophilus influenza 4. Acute hypoxic respiratory failure secondary to pulmonary edema and possible aspiration pneumonia 5. DKA status post insulin drip 6. Cardiomyopathy with EF of 40-45% 7. Possible anoxic encephalopathy. Patient remains with minimal neurology, response in spite of being off of sedation for more than a day. Plan: Continue with D5W Increase free water down the feeding tube to 200 mL every 4 hours
--- NOTE | 2022-08-18 10:26 | PN ---
PROGRESS NOTE SUBJECTIVE: This gentleman suffered from an acute inferior [place] and PCI. Neurologically, he is not responding and yesterday's CAT scan suggests that there is a subacute or an acute CVA in 2 areas. The patient will probably be made comfort care. Hemodynamically, cardiac rodriguez, he is stable. He is in a sinus rhythm, on a beta olga lidia. He is making decent urine, hemodynamically fairly stable. I would recommend from a cardiac standpoint to continue current medications, but would check with Neurology if we should continue aspirin and Brilinta. The patient's stroke does not appear to be hemorrhagic, so I do not feel any reason to withhold his medication, but I will seek their input. Cardiac rodriguez, the patient is stable, but neurologically, it appears that he has suffered from a stroke and the sequelae of the stroke are making it difficult for him to be weaned. OBJECTIVE: VITAL SIGNS: Stable. HEART: S1, S2 heard normally. Short systolic murmur. LUNGS: Reveal ventilator-assisted breath sounds. ABDOMEN: Unchanged. LOWER EXTREMITIES: Unchanged. NEUROLOGICAL: Not performed. IMPRESSION: 1. Acute or subacute cerebrovascular accident in 2 areas. 2. Acute inferior myocardial infarction and percutaneous coronary intervention of right coronary artery. 3. History of hypertension. 4. Hyperlipidemia. RECOMMENDATIONS: Continue current medical regimen. Seek input from Neurology regarding usage of Brilinta. The stroke appears to be nonhemorrhagic. Prognosis remains guarded. MMODL / IJN: [id number] /
[2022-08-18 10:38] LABS: Chol/HDL Ratio 7.28 Ratio; LDL Cholesterol,Calculated 81.3 mg/dL (0.0-131.0)
--- NOTE | 2022-08-18 11:13 | P.PN ---
Subjective Progress Note Date: 08/18/22 Principal diagnosis: Respiratory failure. This is a 67-year-old white male with history of problems including asthma, diabetes, degenerative joint disease, patient was brought into the ER yesterday with mostly sudden onset of shortness of breath and chest pain. Patient was in extreme respiratory distress upon arrival to the ER, he was placed on BiPAP initially, and he continued to have significant dyspnea. Patient was intubated by the ER physician, workup showed evidence of acute inferior ST elevation myocardial infarction. Patient was seen by cardiology on consultation, and he underwent cardiac catheterization and stenting of the RCA which was totally occluded. In the meantime the patient was noted to have extensive pulmonary edema, acute hypoxic respiratory failure secondary to pulmonary edema, underlying pneumonia is not entirely ruled out but felt to be less likely. Nonetheless the patient will be covered empirically with antibiotics for presumptive aspiration pneumonia since significant airspace disease is noted in the right lung compared to the left lung. I saw this patient this morning, patient is intubated and mechanically ventilated, he is on assist control rate of 20, FiO2 was 100% I cut it down to 80%, he had tidal volume of 500, PEEP was at 14. As soon as I evaluated the patient, clearly the patient was not synchronous with mechanical ventilation, hence I recommended increasing his propofol to 75 mcg/kg/m, patient continued to remain asynchronous with the ventilator, and he seems to be working quite hard at it. Then I recommended sta rting the patient on Nimbex and start a Nimbex drip. ABG done later showed a pO2 of 125 pCO2 51 pH of 7.4, hence I increased the rate from 20-26. Another ABG is pending. Patient is requiring norepinephrine at 0.1 mcg/kg/m, he is also on insulin drip for what seems to be in DKA picture. His IV fluid at 20 mL per hour. Patient is now on Nimbex and on Lasix 40 mg IV push every 8 hours, and I added clindamycin empirically. Patient is ALLERGIC to penicillin. Patient had no good venous access when I arrived to see the patient this morning, hence on emergency basis I established a left femoral triple-lumen catheter, and a left radial arterial line. His echocardiogram showed ejection fraction of 40-45%. Patient is on Aggrastat, and he was on heparin earlier with a PTT over 200. Hence I recommended a groin access rather than having a neck or subclavian access after obtaining the ABG, I cut down his FiO2 down to 65%. Looking at the labs, apparently the patient sustained a acute kidney injury, BUN is 60 creatinine 2.38. His creatinine on admission was 1.97, I believe this is mostly related to hypoperfusion as well as related to his cardiac catheterization/contrast media. Reevaluated today on 08/14/22, patient remains in the ICU, remains intubated and mechanically ventilated. Remains on propofol and Nimbex. His ventilator settings are assist control rate of 26 FiO2 50% and PEEP of 12 and I cut it down to 10 tidal volume of 500. ABG this morning showed a pO2 of 75 pCO2 of 41 pH of 7.39. Hence no change was made except cutting down the PEEP from 12-10. Chest x-ray is showing definite improvement in his pulmonary edema but nonetheless continues to have significant interstitial edema especially in the right lung. His urine output is picking up nicely in spite of the fact that the patient is requiring norepinephrine at 0.1 mcg/kg/m. Patient is on Nimbex at 1 mcg/kg/m, propofol 40 mcg/kg/m, and he is on insulin drip at 4.25 units per hour. After reviewing his chest x-ray and reviewing his ABG, I felt it would be best to keep the patient sedated and paralyzed for now. Not much room to start weaning. His urine output is picking up nicely, and that would be helpful for further weaning as his pulmonary edema starts improving. WBC count today is 12 hemoglobin is 10.6. Blood sugar is 232. PTT is 51.3. And his BUN is 64 creatinine is down to 2.58 from 2.68 yesterday. His troponin yesterday was 3.39 and his BNP level was 11,200 Progress note dated 08/15/2022. This is a 67-year-old male who was admitted on August 13, the diagnoses of ST segment elevation myocardial infarction, diabetic ketoacidosis, and CHF. The patient was intubated on August 13. He went to the catheterization laboratory and had a stent placed in the right coronary artery. He remains on mechanical ventilator. He is currently on by volume assist control, rate 26, tidal volume 500, FiO2 50%, and PEEP of 10. Blood gases show pO2 of 82, pCO2 39, and a pH is 7.42. The patient remains on propofol at 40 mcg/kg/m, insulin at 3.5 units an hour, Nimbex at 2 mcg/kg/m, with [id number] monitoring, saline at 20 mL an hour, and Nepro tube feedings at 10 mL an hour. White count 12.5, hemoglobin 10.2, hematocrit 30.8, and platelet count 292,000. Sodium 141, potassium 4, c hloride 109, CO2 25, BUN 64, creatinine 2.03. Chest x-ray shows persistent right lung infiltrate and/or edema. Chest x-ray is unchanged. Progress note dated 08/16/2022. 67-year-old male seen again in room 264. He was admitted on August 13. The patient came in with a diagnosis of an ST segment elevation myocardial infarction, CHF, and diabetic ketoacidosis. He had a stent placed in his right coronary artery. He was intubated. He remains on the mechanical ventilator. Yesterday, he was on Nimbex, but we've been able to wean that off. Currently, he is on the volume assist control, rate 26, tidal volume 500, FiO2 40%, and PEEP of 10. Blood gases on 50% showed a pO2 134, pCO2 of 38, and a pH is 7.45. The patient remains on propofol at 35 mcg/kg/m, saline at 20 mL an hour, and Nepro tube needs, he is an hour, which is goal. Today, we will do a daily interruption of sedation. His sputum was positive for H. influenzae. Patient remains on Rocephin. White count 11, hemoglobin 9.5, hematocrit 29.1, and platelet count 256,000. Sodium 144, potassium 4, chlorides 110, CO2 26, anion gap 8, BUN 76, creatinine 2.32. Chest x-ray compared to prior x-rays, is improved. Progress note dated 08/17/2022. 5-year-old male seen again in room 264. The patient was admitted on August 13. He came in with a diagnosis of ST segment elevation myocardial infarction, CHF, and diabetic ketoacidosis. He had a stent placed in his right coronary artery. He was intubated, and remains on mechanical ventilator. Currently, settings include the volume assist control, rate 26, tidal volume 500, FiO2 40%, and PEEP of 10. Blood gases show pO2 107, pCO2 39, and a pH is 7.49. The patient's getting Nepro at 21 mL an hour, which is goal. We will add D5W at 100 mL an hour. In addition, for better blood pressure control, the patient will be placed back on amlodipine, and the nurses can use Cleveprex and titrate it. White count 8.6, hemoglobin 10.1, hematocrit 31.6, with a normal platelet count. Sodium 150, potassium 3.7, chlorides 113, CO2 28, BUN 70, creatinine 1.48. The saline IV was discontinued in favor of D5W at 100 mL an hour. The patient's chest x-ray shows similar infiltrates in the perihilar regions. Sputum is showing Haemophilus influenzae from August 13. Progress note dated 08/18/2022. 67-year-old male seen in room 264. The patient had been taken off the sedation, and was nonresponsive. We will order a stat EEG, computed tomography scan, and neurology consultation. The EEG showed diffuse slowing, consistent with toxic/metabolic encephalopathy. The computed tomography scan of the brain showed 2 areas of acute/subacute infarct, involving the right cerebellar area, as well as the left frontoparietal area. The patient is still unresponsive. He remains on the ventilator, with settings of volume assist control, rate 26, tidal volume 500, FiO2 40%, and PEEP of 10. Blood gases show pO2 103, pCO2 36, pH is 7.56. The patient's getting D5W at 100 mL an hour, and Nepro 21 mL an hour. The patient will apparently be made comfort measures by his family either later today or tomorrow. We should also discussed CODE STATUS with the family. 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 This would be a preterminal event. White count 9.3, hemoglobin 10, hematocrit 31.6, platelet count normal. Sodium 149, potassium 3.6, chlorides 1 13, CO2 31, BUN 63, creatinine 1.39. Sputum from August 13 showed Haemophilus influenzae. Chest x-ray is mostly normal, with some minimal infiltrates or atelectasis. Objective - Vital Signs Vital signs: Vital Signs Temp 98.9 F 08/18/22 08:00 Pulse 85 08/18/22 11:00 Resp 26 H 08/18/22 11:00 BP 118/72 08/18/22 11:00 Pulse Ox 99 08/18/22 11:00 FiO2 40 08/18/22 10:40 Intake & Output 08/17/22 08/18/22 08/18/22 18:59 06:59 18:59 Intake Total 1362 1752 715 Output Total 1775 1370 565 Balance -413 382 150 Weight 92.9 kg Intake: IV 800 1200 400 Dextrose 5% in Water 1, 800 1200 400 000 ml @ 100 mls/hr IV . Q10H ONE Rx#:[id number] Intake, IV Titration 50 50 Amount cefTRIAXone 2 gm In 50 50 Sodium Chloride 0.9% 50 ml @ 100 mls/hr IVPB Q24HR [facility] Rx#:[id number] Tube Feeding 252 252 105 Other 260 300 160 Output: Urine 1775 1370 565 Other: Voiding Method Indwelling Catheter Indwelling Catheter Indwelling Catheter ABP, PAP, CO, CI - Last Documented Arterial Blood Pressure 133/54 - Exam No acute distress, sedated, with an orally placed endotracheal tube. HEENT examination is grossly unremarkable. Neck supple. Full range of motion. No adenopathy thyromegaly or neck vein distention. Cardiovascular examination reveals regular rhythm rate. S1-S2 normal. No S3 or S4. No discernible murmur noted. Heart sounds are distant. Heart rate 85 beat s a minute. Lungs reveal scattered bilateral rhonchi. No wheezes. No distinct crackles. Breath sounds equal. Saturation is 99%. Abdomen soft bowel sounds are heard. No masses or tenderness. Extremities are intact. No cyanosis clubbing or edema. Skin is without rash or lesion. Neurologic examination reveals an unresponsive man, who has been off the propofol, for quite some time. - Labs CBC & Chem 7: 08/18/22 04:17 08/18/22 04:17 Labs: Abnormal Lab Results - Last 24 Hours (Table) 08/17/22 08/17/22 08/17/22 Range/Units 04:22 11:53 18:03 RBC (4.30-5.90) m/uL Hgb (13.0-17.5) gm/dL Hct (39.0-53.0) % Lymphocytes # (1.0-4.8) k/uL ABG pH (7.35-7.45) ABG HCO3 (21-25) mmol/L ABG Total CO2 (19-24) mmol/L ABG O2 Saturation (94-97) % Sodium (137-145) mmol/L Chloride (98-107) mmol/L Carbon Dioxide (22-30) mmol/L BUN (9-20) mg/dL Creatinine (0.66-1.25) mg/dL Glucose (74-99) mg/dL POC Glucose (mg/dL) 308 H 323 H (70-110) mg/dL Hemoglobin A1c 9.2 H (0.0-6.0) % HDL Cholesterol (40.00-60.00) mg/dL 08/17/22 08/17/22 08/18/22 Range/Units 23:26 23:57 04:17 RBC (4.30-5.90) m/uL Hgb (13.0-17.5) gm/dL Hct (39.0-53.0) % Lymphocytes # (1.0-4.8) k/uL ABG pH (7.35-7.45) ABG HCO3 (21-25) mmol/L ABG Total CO2 (19-24) mmol/L ABG O2 Saturation (94-97) % Sodium (137-145) mmol/L Chloride (98-107) mmol/L Carbon Dioxide (22-30) mmol/L BUN (9-20) mg/dL Creatinine (0.66-1.25) mg/dL Glucose (74-99) mg/dL POC Glucose (mg/dL) 331 H 321 H (70-110) mg/dL Hemoglobin A1c (0.0-6.0) % HDL Cholesterol 16.90 L (40.00-60.00) mg/dL 08/18/22 08/18/22 08/18/22 Range/Units 04:17 04:17 05:30 RBC 3.31 L (4.30-5.90) m/uL Hgb 10.0 L (13.0-17.5) gm/dL Hct 31.6 L (39.0-53.0) % Lymphocytes # 0.9 L (1.0-4.8) k/uL ABG pH (7.35-7.45) ABG HCO3 (21-25) mmol/L ABG Total CO2 (19-24) mmol/L ABG O2 Saturation (94-97) % Sodium 149 H (137-145) mmol/L Chloride 113 H (98-107) mmol/L Carbon Dioxide 31 H (22-30) mmol/L BUN 63 H (9-20) mg/dL Creatinine 1.39 H (0.66-1.25) mg/dL Glucose 263 H (74-99) mg/dL POC Glucose (mg/dL) 272 H (70-110) mg/dL Hemoglobin A1c (0.0-6.0) % HDL Cholesterol (40.00-60.00) mg/dL 08/18/22 08/18/22 Range/Units 06:00 06:00 RBC (4.30-5.90) m/uL Hgb (13.0-17.5) gm/dL Hct (39.0-53.0) % Lymphocytes # (1.0-4.8) k/uL ABG pH 7.56 H* (7.35-7.45) ABG HCO3 32 H (21-25) mmol/L ABG Total CO2 34 H (19-24) mmol/L ABG O2 Saturation 99.1 H (94-97) % Sodium (137-145) mmol/L Chloride (98-107) mmol/L Carbon Dioxide (22-30) mmol/L BUN (9-20) mg/dL Creatinine (0.66-1.25) mg/dL Glucose (74-99) mg/dL POC Glucose (mg/dL) 250 H (70-110) mg/dL Hemoglobin A1c (0.0-6.0) % HDL Cholesterol (40.00-60.00) mg/dL Assessment and Plan Assessment: Acute hypoxemic respiratory failure, secondary to acute systolic CHF, pulmonary edema, ischemic cardiomyopathy, and acute ST segment elevation myocardial infarction. Status post intubation and mechanical ventilation, on 08/13/2022. Status post stent placement, right coronary artery, 08/13/2022. Patient very poorly responsive, computed tomography scan showing right cerebellar subacute/acute infarct as well as left frontoparietal subacute/acute infarct, and EEG showing diffuse slowing, consistent with metabolic/toxic encephalopathy. Possible aspiration pneumonia. Acute diabetic ketoacidosis. Acute kidney injury. History of asthma. Degenerative joint disease. Fungal dermatitis, involving the right groin area. Plan: Plan dated 08/15/2022. The patient's insulin drip can be discontinued. The patient's sugar is better control, to gap is closed, and the bicarbonate concentration is in normal range. We'll put the patient on NovoLog sliding scale, every 6 hours. Also, we added updrafts treatments, and we will attempt to get the patient off of Nimbex. Labs, x-rays, and medications are reviewed. We will continue to follow make recommendations along the way. Prognosis is guarded. Plan dated 08/16/2022. The patient is currently on Rocephin, which should cover the H. influenzae in the sputum. We have been able to successfully wean off the Nimbex. Patient remains on the mechanical ventilator. He is getting tube feeds at goal. We will do a daily interruption of sedation today. FiO2 was dropped from 50%, down to 40%. Labs, x-rays, and medications are reviewed. Overall prognosis remains guarded. We will continue to follow the patient make recommendations along the way. Plan dated 08/17/2022. The patient saline IV is discontinued in favor of D5W at 100 mL an hour. In addition, we added amlodipine, and possibly Cleveprex, for better blood pressure control. The patient will have a head CT without contrast, a stat EEG, and a neurology consultation. It's quite concerning that the patient has been off of propofol for some time, and he does not respond. Labs, x-rays, and medications are reviewed. Overall prognosis remains very guarded. Plan dated 08/18/2022. The patient appears to have had significant neurologic insult, based on the computed tomography scan and EEG. We have asked neurology to see the patient. His prognosis is very poor. The family has been notified. 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 Certainly be a preterminal event. Labs, x-rays, medications are reviewed. Unnecessary medications have been discontinued. We will continue to follow make recommendations along the way. Time with Patient: Greater than 30
--- NOTE | 2022-08-18 11:16 | P.PN ---
Subjective Progress Note Date: 08/18/22 Patient remains off intubation. He is still unresponsive. Yesterday patient had a computed tomography scan that showed acute/subacute stroke. Objective - Vital Signs Vital signs: Vital Signs Temp 98.9 F 08/18/22 08:00 Pulse 85 08/18/22 11:00 Resp 26 H 08/18/22 11:00 BP 118/72 08/18/22 11:00 Pulse Ox 99 08/18/22 11:00 FiO2 40 08/18/22 10:40 Intake & Output 08/17/22 08/18/22 08/18/22 18:59 06:59 18:59 Intake Total 1362 1752 715 Output Total 1775 1370 565 Balance -413 382 150 Weight 92.9 kg Intake: IV 800 1200 400 Dextrose 5% in Water 1, 800 1200 400 000 ml @ 100 mls/hr IV . Q10H [facility] Rx#:[id number] Intake, IV Titration 50 50 Amount cefTRIAXone 2 gm In 50 50 Sodium Chloride 0.9% 50 ml @ 100 mls/hr IVPB Q24HR [facility] Rx#:[id number] Tube Feeding 252 252 105 Other 260 300 160 Output: Urine 1775 1370 565 Other: Voiding Method Indwelling Catheter Indwelling Catheter Indwelling Catheter ABP, PAP, CO, CI - Last Documented Arterial Blood Pressure 133/54 - Exam General examination -intubated and nonresponsive Heart - + S1S2 no murmurs Lungs -diminished breath sounds bilaterally Abdomen soft NT ND +ve BS Extremities -+1 pitting edema bilateral lower extremities [employer] -patient is nonresponsive off of sedation Psych -unable to assess due to altered mental status - Labs CBC & Chem 7: 08/18/22 04:17 08/18/22 04:17 Labs: Abnormal Lab Results - Last 24 Hours (Table) 08/17/22 08/17/22 08/17/22 Range/Units 04:22 11:53 18:03 RBC (4.30-5.90) m/uL Hgb (13.0-17.5) gm/dL Hct (39.0-53.0) % Lymphocytes # (1.0-4.8) k/uL ABG pH (7.35-7.45) ABG HCO3 (21-25) mmol/L ABG Total CO2 (19-24) mmol/L ABG O2 Saturation (94-97) % Sodium (137-145) mmol/L Chloride (98-107) mmol/L Carbon Dioxide (22-30) mmol/L BUN (9-20) mg/dL Creatinine (0.66-1.25) mg/dL Glucose (74-99) mg/dL POC Glucose (mg/dL) 308 H 323 H (70-110) mg/dL Hemoglobin A1c 9.2 H (0.0-6.0) % HDL Cholesterol (40.00-60.00) mg/dL 08/17/22 08/17/22 08/18/22 Range/Units 23:26 23:57 04:17 RBC (4.30-5.90) m/uL Hgb (13.0-17.5) gm/dL Hct (39.0-53.0) % Lymphocytes # (1.0-4.8) k/uL ABG pH (7.35-7.45) ABG HCO3 (21-25) mmol/L ABG Total CO2 (19-24) mmol/L ABG O2 Saturation (94-97) % Sodium (137-145) mmol/L Chloride (98-107) mmol/L Carbon Dioxide (22-30) mmol/L BUN (9-20) mg/dL Creatinine (0.66-1.25) mg/dL Glucose (74-99) mg/dL POC Glucose (mg/dL) 331 H 321 H (70-110) mg/dL Hemoglobin A1c (0.0-6.0) % HDL Cholesterol 16.90 L (40.00-60.00) mg/dL 08/18/22 08/18/22 08/18/22 Range/Units 04:17 04:17 05:30 RBC 3.31 L (4.30-5.90) m/uL Hgb 10.0 L (13.0-17.5) gm/dL Hct 31.6 L (39.0-53.0) % Lymphocytes # 0.9 L (1.0-4.8) k/uL ABG pH (7.35-7.45) ABG HCO3 (21-25) mmol/L ABG Total CO2 (19-24) mmol/L ABG O2 Saturation (94-97) % Sodium 149 H (137-145) mmol/L Chloride 113 H (98-107) mmol/L Carbon Dioxide 31 H (22-30) mmol/L BUN 63 H (9-20) mg/dL Creatinine 1.39 H (0.66-1.25) mg/dL Glucose 263 H (74-99) mg/dL POC Glucose (mg/dL) 272 H (70-110) mg/dL Hemoglobin A1c (0.0-6.0) % HDL Cholesterol (40.00-60.00) mg/dL 08/18/22 08/18/22 Range/Units 06:00 06:00 RBC (4.30-5.90) m/uL Hgb (13.0-17.5) gm/dL Hct (39.0-53.0) % Lymphocytes # (1.0-4.8) k/uL ABG pH 7.56 H* (7.35-7.45) ABG HCO3 32 H (21-25) mmol/L ABG Total CO2 34 H (19-24) mmol/L ABG O2 Saturation 99.1 H (94-97) % Sodium (137-145) mmol/L Chloride (98-107) mmol/L Carbon Dioxide (22-30) mmol/L BUN (9-20) mg/dL Creatinine (0.66-1.25) mg/dL Glucose (74-99) mg/dL POC Glucose (mg/dL) 250 H (70-110) mg/dL Hemoglobin A1c (0.0-6.0) % HDL Cholesterol (40.00-60.00) mg/dL Assessment and Plan Assessment: Acute inferior ST segment elevated myocardial infarction Moderate to severe aortic stenosis Severe Pum HTN RVSP 50 Cardiogenic shock Ventilator dependent respiratory failure -Cardiology recommendations. Continue with aspirin, Brillenta, Lipitor, metoprolol -Lasix 40 mg IV every 12 hours as per cardiology -[employer] Cover Installer to manage spent Acute encephalopathy likely due to acute CVA versus toxic metabolic enceph alopathy Acute CVA Patient off sedation and is nonresponsive CT head showed acute/subacute stroke Neurology on board Haemophillus PNA -Resume IV Rocephin - pulm recs RASHMI - nephrology recs - nonobstructing calculi vs angiomyolipoma right upper pole -Diuretics as per cardiology -Nephrology following -Improving Hyponatremia Patient started on D5 drip Trend BMP Improving DM 2 with hyperglycemia with neuropathy DKA resolved - Levimir 20 units, Novolog 6 q6 + sliding scale - hold metformin and Glucotrol Chronic: Asthma OA Eczema DVT prophylaxis: heparin gtt Discussed with: nursing Anticipated discharge: pending clinical course Anticipated discharge place: pending clinical course
[2022-08-18] MEDS: TICAGRELOR 90 MG TAB PO SCH ×2 (11:28→21:17)
[2022-08-18 12:06] LABS: Glucose,Whole Blood 261 mg/dL (70-110)
--- NOTE | 2022-08-18 14:35 | CT ---
EXAMINATION TYPE: CT brain wo con CT DLP: 1320.4 mGycm, Automated exposure control for dose reduction was used. DATE OF EXAM: 08/18/2022 2:21 PM COMPARISON: Prior CT Brain from 08/17/2022. CLINICAL INDICATION:Male, 67 years old with history of stroke. assess if any new stroke regions, Str florin, assess if any new stroke regions TECHNIQUE: Brain: Multiple axial CT images of the brain were obtained without IV contrast. Coronal and sagittal reformats reviewed. FINDINGS: Brain: Extra-axial spaces: No abnormal extra-axial fluid collections. Ventricular system: Dilatation in proportion to cerebral atrophy. Cerebral parenchyma: No acute intraparenchymal hemorrhage or mass effect. Redemonstration of hypoden sity within the left frontal/parietal junction and left frontal lobe periventricular white matter. De monstrated. Hypodensity within the right temporal lobe. No new regions of hypodensity identified. Sca ttered hypoattenuating areas are seen within the white matter. Cerebellum: Similar hypodensity demonstrated within the medial aspect of the right cerebellar hemisph ere. Mass effect: No evidence of midline shift. Intracranial vasculature: Atherosclerotic calcifications of the intracranial vessels. Soft tissues: Normal. Calvarium/osseous structures: No depressed skull fracture. Paranasal sinuses and mastoid air cells: Mild scattered paranasal sinus disease. Visualized orbits: Right aphakia Partial visualization of endotracheal and orogastric tubes. IMPRESSION: Overall similar examination from CT yesterday with acute/subacute CVA of the medial aspect of the rig ht cerebellar hemisphere, left frontal/parietal lobe deep white matter, and right temporal lobe. No h emorrhagic conversion. Different vascular territories suggesting embolic phenomenon.
--- NOTE | 2022-08-18 14:57 | P.PN ---
Subjective Progress Note Date: 08/18/22 I am seeing the patient for the first time during this admission. Briefly, patient recent revealed acute/subacute CVA on the medial aspect of the right cerebellar hemisphere. Additional acute/subacute CVA including the left frontal/parietal lobe deep white matter and right temporal lobe. It was felt em bolic phenomenon. Patient has hypoxic respiratory failure and in intubated on Ventilator. Per the nurse he is on IV Propofol 40mcg/kg/min and has been turned off for 15 minutes prior to my examination. He is also receiving Dilaudid PRN for pain according to nurse. Please refer to Dr. Pyle's note for further details. Objective - Vital Signs Vital signs: Vital Signs Temp 99.4 F 08/18/22 12:00 Pulse 98 08/18/22 13:00 Resp 26 H 08/18/22 13:00 BP 132/78 08/18/22 13:00 Pulse Ox 99 08/18/22 13:00 FiO2 40 08/18/22 12:00 Intake & Output 08/17/22 08/18/22 08/18/22 18:59 06:59 18:59 Intake Total 1362 1752 1178 Output Total 1775 1370 715 Balance -413 382 463 Weight 92.9 kg Intake: IV 800 1200 600 Dextrose 5% in Water 1, 800 1200 600 000 ml @ 100 mls/hr IV . Q10H [facility] Rx#:[id number] Intake, IV Titration 50 50 Amount cefTRIAXone 2 gm In 50 50 Sodium Chloride 0.9% 50 ml @ 100 mls/hr IVPB Q24HR [facility] Rx#:[id number] Tube Feeding 252 252 168 Other 260 300 360 Output: Urine 1775 1370 715 Other: Voiding Method Indwelling Catheter Indwelling Catheter Indwelling Catheter ABP, PAP, CO, CI - Last Documented Arterial Blood Pressure 162/61 - Exam GENERAL: The patient is lying in bed and does not appear in acute distress. LUNG: Intubated on ventilator. NEUROLOGICAL: Limited because of patient's condition, as well was on IV Propofol 40mcg/kg/min and held 15 minutes prior to my examination and receiving Dilaudid. Higher mental function: Is comatose. No following commands or attempting to communicate. Cranial nerves: I had to manually open eyes and primary gaze is midline. The pupils are round, equal and reactive to light. No facial weakness. Otherwise rest is limited. Motor: The strength is unable to assess individual muscles strength. But has some withdrawal of lowers to painful stimuli. No spontaneous movement. Normal bulk. Cerebellum: Unable to assess. Sensation: ome withdrawal of lowers to painful stimuli. SOME OF THE WORK-UP DURING THIS HOSPITAL VISIT CONSISTED OF: Lipid panels triglyceride 124, cholesterol 123, LDLs 81 and HDL is a 60 Hemoglobin A1c 9.2. White virus to start nondetected CT head is reported as acute/subacute CVA on the medial aspect of the right cerebellar hemisphere. Additional acute/subacute CVA including the left frontal/parietal lobe deep white matter and right temporal lobe 2-D echo from 08/13/2022 revealed mildly increase septal wall thickness. Left ventricular systolic function is decreased at 40-45%. Inferior hypokinesis. Moderate to severe aortic stenosis. EEG was performed, which was abnormal due to background slowing of severe degree. This is suggestive of generalized cerebral dysfunction as can be seen with toxic metabolic encephalopathy or due to diffuse structural brain abnormality. Clinical correlation is recommended. No epileptiform activity was seen. Carotid duplex is reported as there is plaque formation in image and measurements suggest 25% stenosis in both internal carotid arteries. Vertebral artery flow was not demonstrated on this exam. - Labs CBC & Chem 7: 08/18/22 04:17 08/18/22 04:17 Labs: Abnormal Lab Results - Last 24 Hours (Table) 08/17/22 08/17/22 08/17/22 Range/Units 18:03 23:26 23:57 RBC (4.30-5.90) m/uL Hgb (13.0-17.5) gm/dL Hct (39.0-53.0) % Lymphocytes # (1.0-4.8) k/uL ABG pH (7.35-7.45) ABG HCO3 (21-25) mmol/L ABG Total CO2 (19-24) mmol/L ABG O2 Saturation (94-97) % Sodium (137-145) mmol/L Chloride (98-107) mmol/L Carbon Dioxide (22-30) mmol/L BUN (9-20) mg/dL Creatinine (0.66-1.25) mg/dL Glucose (74-99) mg/dL POC Glucose (mg/dL) 323 H 331 H 321 H (70-110) mg/dL HDL Cholesterol (40.00-60.00) mg/dL 08/18/22 08/18/22 08/18/22 Range/Units 04:17 04:17 04:17 RBC 3.31 L (4.30-5.90) m/uL Hgb 10.0 L (13.0-17.5) gm/dL Hct 31.6 L (39.0-53.0) % Lymphocytes # 0.9 L (1.0-4.8) k/uL ABG pH (7.35-7.45) ABG HCO3 (21-25) mmol/L ABG Total CO2 (19-24) mmol/L ABG O2 Saturation (94-97) % Sodium 149 H (137-145) mmol/L Chloride 113 H (98-107) mmol/L Carbon Dioxide 31 H (22-30) mmol/L BUN 63 H (9-20) mg/dL Creatinine 1.39 H (0.66-1.25) mg/dL Glucose 263 H (74-99) mg/dL POC Glucose (mg/dL) (70-110) mg/dL HDL Cholesterol 16.90 L (40.00-60.00) mg/dL 08/18/22 08/18/22 08/18/22 Range/Units 05:30 06:00 06:00 RBC (4.30-5.90) m/uL Hgb (13.0-17.5) gm/dL Hct (39.0-53.0) % Lymphocytes # (1.0-4.8) k/uL ABG pH 7.56 H* (7.35-7.45) ABG HCO3 32 H (21-25) mmol/L ABG Total CO2 34 H (19-24) mmol/L ABG O2 Saturation 99.1 H (94-97) % Sodium (137-145) mmol/L Chloride (98-107) mmol/L Carbon Dioxide (22-30) mmol/L BUN (9-20) mg/dL Creatinine (0.66-1.25) mg/dL Glucose (74-99) mg/dL POC Glucose (mg/dL) 272 H 250 H (70-110) mg/dL HDL Cholesterol (40.00-60.00) mg/dL 08/18/22 Range/Units 12:04 RBC (4.30-5.90) m/uL Hgb (13.0-17.5) gm/dL Hct (39.0-53.0) % Lymphocytes # (1.0-4.8) k/uL ABG pH (7.35-7.45) ABG HCO3 (21-25) mmol/L ABG Total CO2 (19-24) mmol/L ABG O2 Saturation (94-97) % Sodium (137-145) mmol/L Chloride (98-107) mmol/L Carbon Dioxide (22-30) mmol/L BUN (9-20) mg/dL Creatinine (0.66-1.25) mg/dL Glucose (74-99) mg/dL POC Glucose (mg/dL) 261 H (70-110) mg/dL HDL Cholesterol (40.00-60.00) mg/dL Assessment and Plan Assessment: * Acute to subacute ischemic stroke at different territories which is suggestive of embolic/cardioembolic (CT medial aspect of the right cerebellar hemisphere, left frontal/parietal lobe deep white matter and right temporal lobe). * Altered mental status due to multifactorial: Due to acute stroke, toxic- metabolic encephalopathy and medication effect (IV Propofol and Dilaudid). No seizure on EEG. * Acute hypoxic respiratory failure on mechanical ventilation * Acute systolic CHF, pulmonary edema, ischemic cardiomyopathy, acute STEMI * Status post cardiac stent placement RCA 08/13/2022 * Diabetic ketoacidosis * Acute renal failure that is trending down * History of asthma * Anemia Plan: Will get repeat CT head today. Agree with pursuing with [facility]. Cardiology on board and there are performed and the they will attempt to pursue the [facility] possibly tomorrow according to the nurse. Patient currently on aspirin 81 mg daily and Brilinta 90 mg twice a day. I started the patient on Lipitor 40 mg daily at bedtime for secondary stroke prophylaxis. LDL goal is less than 70 for stroke Hemoglobin A1c 9.2. Recommend optimize control of diabetes. Telemetry monitoring rule out paroxysmal atrial fibrillation. Carotid duplex is reported as there is plaque formation in image and measurements suggest 25% stenosis in both internal carotid arteries. Vertebral artery flow was not demonstrated on this exam. I would recommend that a CT angiography of the neck for better evaluation of the vertebral arteries once the kidney function has normalized. Recommend avoiding Dilaudid as much as possible as well as holding off any sedation for better neurological examination Cardiology team is on board Continue neuro checks On cardiac monitoring PT OT and SCIENTIFIC EDITOR are consulted Nephrology team is on board We'll defer the rest of the medical management to the primary and ICU team. For DVT prophylaxis recommend subcu heparin or Lovenox if felt safe by the primary team Patient condition is very guarded I discussed with the patient nurse Time with Patient: Less than 30
[2022-08-18 18:25] LABS: Glucose,Whole Blood 295 mg/dL (70-110)
[2022-08-18] MEDS: ATORVASTATIN 40 MG TAB PO SCH (21:17)
[2022-08-19] LABS: Glucose,Whole Blood 294 mg/dL (70-110)
[2022-08-19] MEDS: INSULIN ASPART (NovoLOG) 100 UNIT/ML VIAL SQ SCH ×10 (00:18→23:48)
[2022-08-19] MEDS: ARTIFICIAL TEARS-HYPROMELLOSE DROPS 15 ML BTL BOTH EYES SCH ×7 (00:19→23:49)
[2022-08-19 02:22] LABS: Glucose,Whole Blood 241 mg/dL (70-110)
[2022-08-19 05:00] LABS: Basophils % (A) 0 %; Eosinophils # (A) 0.3 k/uL (0-0.7); Eosinophils % (A) 3 %; HCT 32.5 % (39.0-53.0); HGB 10.3 gm/dL (13.0-17.5); Hypochromasia Slight; Lymphocytes # (A) 1.1 k/uL (1.0-4.8); Lymphocytes % (A) 11 %; MCHC 31.7 g/dL (31.0-37.0); MCV 94.7 fL (80.0-100.0); Mean Platelet Volume 9.5; Monocytes # (A) 0.5 k/uL (0-1.0); Monocytes % (A) 5 %; Neutrophils # (A) 8.1 k/uL (1.3-7.7); Neutrophils % (A) 79 %; Platelet Count 251 k/uL (150-450); RBC 3.43 m/uL (4.30-5.90); RDW 13.9 % (11.5-15.5); WBC 10.2 k/uL (3.8-10.6)
[2022-08-19] MEDS: HYDROmorphone 0.5 MG/0.5 ML SYRINGE IVP PRN ×4 (05:03→22:29)
[2022-08-19 05:18] LABS: Calcium 8.7 mg/dL (8.4-10.2); Potassium 3.4 mmol/L (3.5-5.1)
[2022-08-19 05:34] LABS: Glucose,Whole Blood 188 mg/dL (70-110)
[2022-08-19] MEDS: POTASSIUM CHLORIDE 20 MEQ in WATER FOR INJECTION 1 100ML.BAG IVPB SCH ×2 (05:46→08:01)
[2022-08-19 05:51] LABS: ABG Base Excess 9.9 mmol/L; ABG HCO3 32 mmol/L (21-25); ABG Oxygen Saturation 98.9 % (94-97); ABG PCO2 32 mmHg (35-45); ABG PO2 101 mmHg (83-108); ABG TCO2 33 mmol/L (19-24); Allen Test Performed? Yes
[2022-08-19 06:48] LABS: Glucose,Whole Blood 181 mg/dL (70-110)
[2022-08-19] MEDS: INSULIN DETEMIR (LEVEMIR) 100 UNIT/ML SYR SQ SCH (06:50)
[2022-08-19] MEDS: DEXTROSE 5% IN WATER 1,000 ML IV SCH ×2 (07:50→17:21)
[2022-08-19] MEDS: PANTOPRAZOLE 40 MG/10 ML VIAL IVP SCH (08:01)
[2022-08-19] MEDS: CHLORHEXIDINE GLUCONATE 15 ML CUP MUCOUS MEM SCH ×2 (08:08→20:46)
[2022-08-19] MEDS: METOPROLOL TARTRATE 25 MG TAB PO SCH ×3 (08:51→22:22)
[2022-08-19] MEDS: amLODIPine 10 MG TAB PO SCH (08:51)
[2022-08-19] MEDS: ASPIRIN 81 MG PO SCH (08:51)
[2022-08-19] MEDS: TICAGRELOR 90 MG TAB PO SCH ×2 (08:51→20:45)
[2022-08-19] MEDS: hydrALAZINE HCL 25 MG TAB PO SCH ×2 (08:51→20:45)
--- NOTE | 2022-08-19 10:37 | P.PN ---
Subjective Progress Note Date: 08/19/22 Patient is opening his eyes this morning to sternal rub and also moving the left side of his body which is an improvement from yesterday where patient was unresponsive. Family made the patient DNR/DNI and do not want a trach and peg patient. Objective - Vital Signs Vital signs: Vital Signs Temp 99.1 F 08/19/22 08:00 Pulse 80 08/19/22 10:00 Resp 21 08/19/22 10:00 BP 126/73 08/19/22 10:00 Pulse Ox 98 08/19/22 10:00 FiO2 40 08/19/22 09:20 Intake & Output 08/18/22 08/19/22 08/19/22 18:59 06:59 18:59 Intake Total 2145 736 490 Output Total 1115 1256 200 Balance 1030 -520 290 Weight 95.4 kg Intake: IV 1200 580 0.9 KVO 80 Dextrose 5% in Water 1, 1200 500 000 ml @ 100 mls/hr IV . Q10H [facility] Rx#:[id number] Intake, IV Titration 50 450 Amount Dextrose 5% in Water 1, 300 000 ml @ 100 mls/hr IV . Q10H [facility] Rx#:[id number] Potassium Chloride 20 meq 100 In Water For Injection 1 100ml.bag @ 50 mls/hr IVPB Q2H [facility] Rx#: [id number] cefTRIAXone 2 gm In 50 50 Sodium Chloride 0.9% 50 ml @ 100 mls/hr IVPB Q24HR [facility] Rx#:[id number] Tube Feeding 315 126 Other 580 30 40 Output: Urine 1115 1256 200 Other: Voiding Method Indwelling Catheter Indwelling Catheter Indwelling Catheter ABP, PAP, CO, CI - Last Documented Arterial Blood Pressure 164/60 - Exam General examination -intubated and in no acute distress Heart - + S1S2 no murmurs Lungs -diminished breath sounds bilaterally Abdomen soft NT ND +ve BS Extremities -+1 pitting edema bilateral lower extremities RATCHET SETTER -patient OPENS EYES TO STERNAL RUB, MOVING left upper extremity and lower extremity to command Psych -unable to assess due to altered mental status - Labs CBC & Chem 7: 08/19/22 04:45 08/19/22 04:45 Labs: Abnormal Lab Results - Last 24 Hours (Table) 08/18/22 08/18/22 08/18/22 Range/Units 04:17 12:04 18:23 RBC (4.30-5.90) m/uL Hgb (13.0-17.5) gm/dL Hct (39.0-53.0) % Neutrophils # (1.3-7.7) k/uL ABG pH (7.35-7.45) ABG pCO2 (35-45) mmHg ABG HCO3 (21-25) mmol/L ABG Total CO2 (19-24) mmol/L ABG O2 Saturation (94-97) % Sodium (137-145) mmol/L Potassium (3.5-5.1) mmol/L Chloride (98-107) mmol/L Carbon Dioxide (22-30) mmol/L BUN (9-20) mg/dL Glucose (74-99) mg/dL POC Glucose (mg/dL) 261 H 295 H (70-110) mg/dL HDL Cholesterol 16.90 L (40.00-60.00) mg/dL 08/18/22 08/19/22 08/19/22 Range/Units 23:56 02:21 04:45 RBC 3.43 L (4.30-5.90) m/uL Hgb 10.3 L (13.0-17.5) gm/dL Hct 32.5 L (39.0-53.0) % Neutrophils # 8.1 H (1.3-7.7) k/uL ABG pH (7.35-7.45) ABG pCO2 (35-45) mmHg ABG HCO3 (21-25) mmol/L ABG Total CO2 (19-24) mmol/L ABG O2 Saturation (94-97) % Sodium (137-145) mmol/L Potassium (3.5-5.1) mmol/L Chloride (98-107) mmol/L Carbon Dioxide (22-30) mmol/L BUN (9-20) mg/dL Glucose (74-99) mg/dL POC Glucose (mg/dL) 294 H 241 H (70-110) mg/dL HDL Cholesterol (40.00-60.00) mg/dL 08/19/22 08/19/22 08/19/22 Range/Units 04:45 05:32 05:46 RBC (4.30-5.90) m/uL Hgb (13.0-17.5) gm/dL Hct (39.0-53.0) % Neutrophils # (1.3-7.7) k/uL ABG pH 7.60 H* (7.35-7.45) ABG pCO2 32 L (35-45) mmHg ABG HCO3 32 H (21-25) mmol/L ABG Total CO2 33 H (19-24) mmol/L ABG O2 Saturation 98.9 H (94-97) % Sodium 149 H (137-145) mmol/L Potassium 3.4 L (3.5-5.1) mmol/L Chloride 111 H (98-107) mmol/L Carbon Dioxide 32 H (22-30) mmol/L BUN 54 H (9-20) mg/dL Glucose 211 H (74-99) mg/dL POC Glucose (mg/dL) 188 H (70-110) mg/dL HDL Cholesterol (40.00-60.00) mg/dL 08/19/22 Range/Units 06:46 RBC (4.30-5.90) m/uL Hgb (13.0-17.5) gm/dL Hct (39.0-53.0) % Neutrophils # (1.3-7.7) k/uL ABG pH (7.35-7.45) ABG pCO2 (35-45) mmHg ABG HCO3 (21-25) mmol/L ABG Total CO2 (19-24) mmol/L ABG O2 Saturation (94-97) % Sodium (137-145) mmol/L Potassium (3.5-5.1) mmol/L Chloride (98-107) mmol/L Carbon Dioxide (22-30) mmol/L BUN (9-20) mg/dL Glucose (74-99) mg/dL POC Glucose (mg/dL) 181 H (70-110) mg/dL HDL Cholesterol (40.00-60.00) mg/dL Assessment and Plan Assessment: Acute inferior ST segment elevated myocardial infarction Moderate to severe aortic stenosis Severe Pum HTN RVSP 50 Acute systolic heart failure Cardiogenic shock: Resolved and patient now off pressors Ventilator dependent respiratory failure -Cardiology recommendations. Continue with aspirin, Brillenta, Lipitor, metoprolol -Defer diuretics to nephrology and cardiology. 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
[2022-08-19] MEDS ORDERED: MIDAZOLAM 2 MG/2 ML VIAL ONE (11:02)
--- NOTE | 2022-08-19 11:08 | P.PN ---
Subjective Patient is seen for follow-up for acute kidney injury associated with hypotension and acute PR. Maintained on IV Lasix. Patient has had good urine output. Pt is more awake today and following commands. He is seen with the nerologist. Not moving the right sise today FiO2 at 40%. Sodium 149 today. D5W was accidentally off overnight.Tube feeds were also on hold. Objective - Vital Signs Vital signs: Vital Signs Temp 99.1 F 08/19/22 08:00 Pulse 80 08/19/22 10:00 Resp 21 08/19/22 10:00 BP 126/73 08/19/22 10:00 Pulse Ox 98 08/19/22 10:00 FiO2 40 08/19/22 09:20 Intake & Output 08/18/22 08/19/22 08/19/22 18:59 06:59 18:59 Intake Total 2145 736 490 Output Total 1115 1256 200 Balance 1030 -520 290 Weight 95.4 kg Intake: IV 1200 580 0.9 KVO 80 Dextrose 5% in Water 1, 1200 500 000 ml @ 100 mls/hr IV . Q10H [facility] Rx#:[id number] Intake, IV Titration 50 450 Amount Dextrose 5% in Water 1, 300 000 ml @ 100 mls/hr IV . Q10H [facility] Rx#:[id number] Potassium Chloride 20 meq 100 In Water For Injection 1 100ml.bag @ 50 mls/hr IVPB Q2H [facility] Rx#: [id number] cefTRIAXone 2 gm In 50 50 Sodium Chloride 0.9% 50 ml @ 100 mls/hr IVPB Q24HR [facility] Rx#:[id number] Tube Feeding 315 126 Other 580 30 40 Output: Urine 1115 1256 200 Other: Voiding Method Indwelling Catheter Indwelling Catheter Indwelling Catheter ABP, PAP, CO, CI - Last Documented Arterial Blood Pressure 164/60 - Exam Patient is currently on the vent No significant neurological response post cessation of sedation Examination of the heart S1 and S2 Abdomen is soft nontender Examination of the lungs bilateral breath sounds are heard Examination lower extremities shows no significant edema ASSIGNER exam , pt is awake, following commands. Not moving right side. - Labs CBC & Chem 7: 08/19/22 04:45 08/19/22 04:45 Labs: Abnormal Lab Results - Last 24 Hours (Table) 08/18/22 08/18/22 08/18/22 Range/Units 12:04 18:23 23:56 RBC (4.30-5.90) m/uL Hgb (13.0-17.5) gm/dL Hct (39.0-53.0) % Neutrophils # (1.3-7.7) k/uL ABG pH (7.35-7.45) ABG pCO2 (35-45) mmHg ABG HCO3 (21-25) mmol/L ABG Total CO2 (19-24) mmol/L ABG O2 Saturation (94-97) % Sodium (137-145) mmol/L Potassium (3.5-5.1) mmol/L Chloride (98-107) mmol/L Carbon Dioxide (22-30) mmol/L BUN (9-20) mg/dL Glucose (74-99) mg/dL POC Glucose (mg/dL) 261 H 295 H 294 H (70-110) mg/dL 08/19/22 08/19/22 08/19/22 Range/Units 02:21 04:45 04:45 RBC 3.43 L (4.30-5.90) m/uL Hgb 10.3 L (13.0-17.5) gm/dL Hct 32.5 L (39.0-53.0) % Neutrophils # 8.1 H (1.3-7.7) k/uL ABG pH (7.35-7.45) ABG pCO2 (35-45) mmHg ABG HCO3 (21-25) mmol/L ABG Total CO2 (19-24) mmol/L ABG O2 Saturation (94-97) % Sodium 149 H (137-145) mmol/L Potassium 3.4 L (3.5-5.1) mmol/L Chloride 111 H (98-107) mmol/L Carbon Dioxide 32 H (22-30) mmol/L BUN 54 H (9-20) mg/dL Glucose 211 H (74-99) mg/dL POC Glucose (mg/dL) 241 H (70-110) mg/dL 08/19/22 08/19/22 08/19/22 Range/Units 05:32 05:46 06:46 RBC (4.30-5.90) m/uL Hgb (13.0-17.5) gm/dL Hct (39.0-53.0) % Neutrophils # (1.3-7.7) k/uL ABG pH 7.60 H* (7.35-7.45) ABG pCO2 32 L (35-45) mmHg ABG HCO3 32 H (21-25) mmol/L ABG Total CO2 33 H (19-24) mmol/L ABG O2 Saturation 98.9 H (94-97) % Sodium (137-145) mmol/L Potassium (3.5-5.1) mmol/L Chloride (98-107) mmol/L Carbon Dioxide (22-30) mmol/L BUN (9-20) mg/dL Glucose (74-99) mg/dL POC Glucose (mg/dL) 188 H 181 H (70-110) mg/dL Assessment and Plan Assessment: 1. Acute kidney injury ATN currently nonoliguric secondary to hypotension and acute PR. UA is benign appearing with trace protein. 2. Acute inferior wall PR status post cardiac catheterization, angioplasty and and coronary stent placement of RCA 3. Hypotension associated with acute inferior PR and underlying pneumonia. Sputum culture grew Haemophilus influenza 4. Acute hypoxic respiratory failure secondary to pulmonary edema and possible aspiration pneumonia 5. DKA status post insulin drip 6. Cardiomyopathy with EF of 40-45% 7. CVA, being followed by neurology. Plan: Continue with D5W Continue free water 200 mL every 4 hours
--- NOTE | 2022-08-19 11:42 | P.PN ---
Subjective Progress Note Date: 08/19/22 Principal diagnosis: Respiratory failure. This is a 67-year-old white male with history of problems including asthma, diabetes, degenerative joint disease, patient was brought into the ER yesterday with mostly sudden onset of shortness of breath and chest pain. Patient was in extreme respiratory distress upon arrival to the ER, he was placed on BiPAP initially, and he continued to have significant dyspnea. Patient was intubated by the ER physician, workup showed evidence of acute inferior ST elevation myocardial infarction. Patient was seen by cardiology on consultation, and he underwent cardiac catheterization and stenting of the RCA which was totally occluded. In the meantime the patient was noted to have extensive pulmonary edema, acute hypoxic respiratory failure secondary to pulmonary edema, underlying pneumonia is not entirely ruled out but felt to be less likely. Nonetheless the patient will be covered empirically with antibiotics for presumptive aspiration pneumonia since significant airspace disease is noted in the right lung compared to the left lung. I saw this patient this morning, patient is intubated and mechanically ventilated, he is on assist control rate of 20, FiO2 was 100% I cut it down to 80%, he had tidal volume of 500, PEEP was at 14. As soon as I evaluated the patient, clearly the patient was not synchronous with mechanical ventilation, hence I recommended increasing his propofol to 75 mcg/kg/m, patient continued to remain asynchronous with the ventilator, and he seems to be working quite hard at it. Then I recommended sta rting the patient on Nimbex and start a Nimbex drip. ABG done later showed a pO2 of 125 pCO2 51 pH of 7.4, hence I increased the rate from 20-26. Another ABG is pending. Patient is requiring norepinephrine at 0.1 mcg/kg/m, he is also on insulin drip for what seems to be in DKA picture. His IV fluid at 20 mL per hour. Patient is now on Nimbex and on Lasix 40 mg IV push every 8 hours, and I added clindamycin empirically. Patient is ALLERGIC to penicillin. Patient had no good venous access when I arrived to see the patient this morning, hence on emergency basis I established a left femoral triple-lumen catheter, and a left radial arterial line. His echocardiogram showed ejection fraction of 40-45%. Patient is on Aggrastat, and he was on heparin earlier with a PTT over 200. Hence I recommended a groin access rather than having a neck or subclavian access after obtaining the ABG, I cut down his FiO2 down to 65%. Looking at the labs, apparently the patient sustained a acute kidney injury, BUN is 60 creatinine 2.38. His creatinine on admission was 1.97, I believe this is mostly related to hypoperfusion as well as related to his cardiac catheterization/contrast media. Reevaluated today on 08/14/22, patient remains in the ICU, remains intubated and mechanically ventilated. Remains on propofol and Nimbex. His ventilator settings are assist control rate of 26 FiO2 50% and PEEP of 12 and I cut it down to 10 tidal volume of 500. ABG this morning showed a pO2 of 75 pCO2 of 41 pH of 7.39. Hence no change was made except cutting down the PEEP from 12-10. Chest x-ray is showing definite improvement in his pulmonary edema but nonetheless continues to have significant interstitial edema especially in the right lung. His urine output is picking up nicely in spite of the fact that the patient is requiring norepinephrine at 0.1 mcg/kg/m. Patient is on Nimbex at 1 mcg/kg/m, propofol 40 mcg/kg/m, and he is on insulin drip at 4.25 units per hour. After reviewing his chest x-ray and reviewing his ABG, I felt it would be best to keep the patient sedated and paralyzed for now. Not much room to start weaning. His urine output is picking up nicely, and that would be helpful for further weaning as his pulmonary edema starts improving. WBC count today is 12 hemoglobin is 10.6. Blood sugar is 232. PTT is 51.3. And his BUN is 64 creatinine is down to 2.58 from 2.68 yesterday. His troponin yesterday was 3.39 and his BNP level was 11,200 Progress note dated 08/15/2022. This is a 67-year-old male who was admitted on August 13, the diagnoses of ST segment elevation myocardial infarction, diabetic ketoacidosis, and CHF. The patient was intubated on August 13. He went to the catheterization laboratory and had a stent placed in the right coronary artery. He remains on mechanical ventilator. He is currently on by volume assist control, rate 26, tidal volume 500, FiO2 50%, and PEEP of 10. Blood gases show pO2 of 82, pCO2 39, and a pH is 7.42. The patient remains on propofol at 40 mcg/kg/m, insulin at 3.5 units an hour, Nimbex at 2 mcg/kg/m, with [id number] monitoring, saline at 20 mL an hour, and Nepro tube feedings at 10 mL an hour. White count 12.5, hemoglobin 10.2, hematocrit 30.8, and platelet count 292,000. Sodium 141, potassium 4, c hloride 109, CO2 25, BUN 64, creatinine 2.03. Chest x-ray shows persistent right lung infiltrate and/or edema. Chest x-ray is unchanged. Progress note dated 08/16/2022. 67-year-old male seen again in room 264. He was admitted on August 13. The patient came in with a diagnosis of an ST segment elevation myocardial infarction, CHF, and diabetic ketoacidosis. He had a stent placed in his right coronary artery. He was intubated. He remains on the mechanical ventilator. Yesterday, he was on Nimbex, but we've been able to wean that off. Currently, he is on the volume assist control, rate 26, tidal volume 500, FiO2 40%, and PEEP of 10. Blood gases on 50% showed a pO2 134, pCO2 of 38, and a pH is 7.45. The patient remains on propofol at 35 mcg/kg/m, saline at 20 mL an hour, and Nepro tube needs, he is an hour, which is goal. Today, we will do a daily interruption of sedation. His sputum was positive for H. influenzae. Patient remains on Rocephin. White count 11, hemoglobin 9.5, hematocrit 29.1, and platelet count 256,000. Sodium 144, potassium 4, chlorides 110, CO2 26, anion gap 8, BUN 76, creatinine 2.32. Chest x-ray compared to prior x-rays, is improved. Progress note dated 08/17/2022. 67-year-old male seen again in room 264. The patient was admitted on August 13. He came in with a diagnosis of ST segment elevation myocardial infarction, CHF, and diabetic ketoacidosis. He had a stent placed in his right coronary artery. He was intubated, and remains on mechanical ventilator. Currently, settings include the volume assist control, rate 26, tidal volume 500, FiO2 40%, and PEEP of 10. Blood gases show pO2 107, pCO2 39, and a pH is 7.49. The patient's getting Nepro at 21 mL an hour, which is goal. We will add D5W at 100 mL an hour. In addition, for better blood pressure control, the patient will be placed back on amlodipine, and the nurses can use Cleveprex and titrate it. White count 8.6, hemoglobin 10.1, hematocrit 31.6, with a normal platelet count. Sodium 150, potassium 3.7, chlorides 113, CO2 28, BUN 70, creatinine 1.48. The saline IV was discontinued in favor of D5W at 100 mL an hour. The patient's chest x-ray shows similar infiltrates in the perihilar regions. Sputum is showing Haemophilus influenzae from August 13. Progress note dated 08/18/2022. 67-year-old male seen in room 264. The patient had been taken off the sedation, and was nonresponsive. We will order a stat EEG, computed tomography scan, and neurology consultation. The EEG showed diffuse slowing, consistent with toxic/metabolic encephalopathy. The computed tomography scan of the brain showed 2 areas of acute/subacute infarct, involving the right cerebellar area, as well as the left frontoparietal area. The patient is still unresponsive. He remains on the ventilator, with settings of volume assist control, rate 26, tidal volume 500, FiO2 40%, and PEEP of 10. Blood gases show pO2 103, pCO2 36, pH is 7.56. The patient's getting D5W at 100 mL an hour, and Nepro 21 mL an hour. The patient will apparently be made comfort measures by his family either later today or tomorrow. We should also discussed CODE STATUS with the family. 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 This would be a preterminal event. White count 9.3, hemoglobin 10, hematocrit 31.6, platelet count normal. Sodium 149, potassium 3.6, chlorides 113, CO2 31, BUN 63, creatinine 1.39. Sputum from August 13 showed Haemophilus influenzae. Chest x-ray is mostly normal, with some minimal infiltrates or atelectasis. Progress note dated 08/19/2022. 67-year-old male, again seen in room 264. The patient is currently still on the mechanical ventilator, with settings of volume assist control, rate 26, to be dropped down to 20, tidal volume 500, FiO2 40%, and PEEP of 10. Blood gases show a PaO2 101, he CO2 32, and a pH is 7.6. He is getting dextrose at 100 mL an hour, saline at 20 mL an hour, and tube feedings with Nepro at 21 mL an hour, which is on hold. The patient is apparently scheduled for a transesophageal echocardiogram today. His neurologic status apparently has improved somewhat as he is able to open his eyes to verbal commands. White count 10.2, hemoglobin 10.3, hematocrit 32.5, and platelet count 251,000. Sodium 149, potassium 3.4, chlorides 111, CO2 32, BUN 54, and creatinine 1.24. Sputum from August 13, shows Haemophilus influenzae. Objective - Vital Signs Vital signs: Vital Signs Temp 99.1 F 08/19/22 08:00 Pulse 75 08/19/22 11:00 Resp 21 08/19/22 11:00 BP 127/72 08/19/22 11:00 Pulse Ox 98 08/19/22 11:00 FiO2 40 08/19/22 09:20 Intake & Output 08/18/22 08/19/22 08/19/22 18:59 06:59 18:59 Intake Total 2145 736 590 Output Total 1115 1256 340 Balance 1030 -520 250 Weight 95.4 kg Intake: IV 1200 580 0.9 KVO 80 Dextrose 5% in Water 1, 1200 500 000 ml @ 100 mls/hr IV . Q10H ONE Rx#:[id number] Intake, IV Titration 50 550 Amount Dextrose 5% in Water 1, 400 000 ml @ 100 mls/hr IV . Q10H JUANA Rx#:[id number] Potassium Chloride 20 meq 100 In Water For Injection 1 100ml.bag @ 50 mls/hr IVPB Q2H JUANA Rx#: [id number] cefTRIAXone 2 gm In 50 50 Sodium Chloride 0.9% 50 ml @ 100 mls/hr IVPB Q24HR JUANA Rx#:[id number] Tube Feeding 315 126 Other 580 30 40 Output: Urine 1115 1256 340 Other: Voiding Method Indwelling Catheter Indwelling Catheter Indwelling Catheter ABP, PAP, CO, CI - Last Documented Arterial Blood Pressure 153/59 - Exam No acute distress, with an orally placed endotracheal tube and NG tube, and currently not on any sedation. HEENT examination is grossly unremarkable. Neck supple. Full range of motion. No adenopathy thyromegaly or neck vein distention. Cardiovascular examination reveals regular rhythm rate. S1-S2 normal. No S3 or S4. No discernible murmur noted. Heart sounds are distant. Heart rate 75 beats a minute. Lungs reveal scattered bilateral rhonchi. No wheezes. No distinct crackles. Breath sounds equal. Saturation is 98 %. Abdomen soft bowel sounds are heard. No masses or tenderness. Extremities are intact. No cyanosis clubbing or edema. Skin is without rash or lesion. Neurologic examination reveals a patient that can open his eyes to verbal commands. - Labs CBC & Chem 7: 08/19/22 04:45 08/19/22 04:45 Labs: Abnormal Lab Results - Last 24 Hours (Table) 08/18/22 08/18/22 08/18/22 Range/Units 12:04 18:23 23:56 RBC (4.30-5.90) m/uL Hgb (13.0-17.5) gm/dL Hct (39.0-53.0) % Neutrophils # (1.3-7.7) k/uL ABG pH (7.35-7.45) ABG pCO2 (35-45) mmHg ABG HCO3 (21-25) mmol/L ABG Total CO2 (19-24) mmol/L ABG O2 Saturation (94-97) % Sodium (137-145) mmol/L Potassium (3.5-5.1) mmol/L Chloride (98-107) mmol/L Carbon Dioxide (22-30) mmol/L BUN (9-20) mg/dL Glucose (74-99) mg/dL POC Glucose (mg/dL) 261 H 295 H 294 H (70-110) mg/dL 08/19/22 08/19/22 08/19/22 Range/Units 02:21 04:45 04:45 RBC 3.43 L (4.30-5.90) m/uL Hgb 10.3 L (13.0-17.5) gm/dL Hct 32.5 L (39.0-53.0) % Neutrophils # 8.1 H (1.3-7.7) k/uL ABG pH (7.35-7.45) ABG pCO2 (35-45) mmHg ABG HCO3 (21-25) mmol/L ABG Total CO2 (19-24) mmol/L ABG O2 Saturation (94-97) % Sodium 149 H (137-145) mmol/L Potassium 3.4 L (3.5-5.1) mmol/L Chloride 111 H (98-107) mmol/L Carbon Dioxide 32 H (22-30) mmol/L BUN 54 H (9-20) mg/dL Glucose 211 H (74-99) mg/dL POC Glucose (mg/dL) 241 H (70-110) mg/dL 08/19/22 08/19/22 08/19/22 Range/Units 05:32 05:46 06:46 RBC (4.30-5.90) m/uL Hgb (13.0-17.5) gm/dL Hct (39.0-53.0) % Neutrophils # (1.3-7.7) k/uL ABG pH 7.60 H* (7.35-7.45) ABG pCO2 32 L (35-45) mmHg ABG HCO3 32 H (21-25) mmol/L ABG Total CO2 33 H (19-24) mmol/L ABG O2 Saturation 98.9 H (94-97) % Sodium (137-145) mmol/L Potassium (3.5-5.1) mmol/L Chloride (98-107) mmol/L Carbon Dioxide (22-30) mmol/L BUN (9-20) mg/dL Glucose (74-99) mg/dL POC Glucose (mg/dL) 188 H 181 H (70-110) mg/dL Assessment and Plan Assessment: Acute hypoxemic respiratory failure, secondary to acute systolic CHF, pulmonary edema, ischemic cardiomyopathy, and acute ST segment elevation myocardial infarction. Status post intubation and mechanical ventilation, on 08/13/2022. Status post stent placement, right coronary artery, 08/13/2022. Patient very poorly responsive, computed tomography scan showing right cerebellar subacute/acute infarct as well as left frontoparietal subacute/acute infarct, and EEG showing diffuse slowing, consistent with metabolic/toxic encephalopathy. Possible aspiration pneumonia. Acute diabetic ketoacidosis. Acute kidney injury. History of asthma. Degenerative joint disease. Fungal dermatitis, involving the right groin area. Plan: Plan dated 08/15/2022. The patient's insulin drip can be discontinued. The patient's sugar is better control, to gap is closed, and the bicarbonate concentration is in normal range. We'll put the patient on NovoLog sliding scale, every 6 hours. Also, we added updrafts treatments, and we will attempt to get the patient off of Nimbex. Labs, x-rays, and medications are reviewed. We will continue to follow make recommendations along the way. Prognosis is guarded. Plan dated 08/16/2022. The patient is currently on Rocephin, which should cover the H. influenzae in the sputum. We have been able to successfully wean off the Nimbex. Patient remains on the mechanical ventilator. He is getting tube feeds at goal. We will do a daily interruption of sedation today. FiO2 was dropped from 50%, down to 40%. Labs, x-rays, and medications are reviewed. Overall prognosis remains guarded. We will continue to follow the patient make recommendations along the way. Plan dated 08/17/2022. The patient saline IV is discontinued in favor of D5W at 100 mL an hour. In addition, we added amlodipine, and possibly Cleveprex, for better blood pressure control. The patient will have a head CT without contrast, a stat EEG, and a neurology consultation. It's quite concerning that the patient has been off of propofol for some time, and he does not respond. Labs, x-rays, and medications are reviewed. Overall prognosis remains very guarded. Plan dated 08/18/2022. The patient appears to have had significant neurologic insult, based on the computed tomography scan and EEG. We have asked neurology to see the patient. His prognosis is very poor. The family has been notified. 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 Certainly be a preterminal event. Labs, x-rays, medications are reviewed. Unnecessary medications have been discontinued. We will continue to follow make recommendations along the way. Plan dated 08/19/2022. Neurology plans on doing another EEG on this patient. The patient appears to be improving somewhat, and is able to open his eyes to verbal stimuli. The patient is scheduled to have a transesophageal echocardiogram today. Currently on hold. Labs, x-rays, and medications are reviewed. Overall, the prognosis remains very guarded. We will continue to follow and make recommendations where appropriate. Time with Patient: Greater than 30
--- NOTE | 2022-08-19 11:45 | P.PCN ---
Date of Procedure: 08/19/22 Description of Procedure: Indication: Evaluation of cardiac source of embolism Procedure Description: The patient is intubated and sedated, was evaluated by Dr. Swanson., blood pressure, heart rate and O2 saturation were monitored. The throat was sprayed with Cetacaine.The probe was introduced into the esophagus without difficulty. Images were obtained. Following that, the probe was removed. There was no immediate complication. Findings: Left atrial size is mildly dilated, left atrial appendage is normal. The ventricle size is normal. The inferior wall is hypokinetic. The ejection fraction is 40-45%. The mitral valve appears to be normal, the aortic valve is a tricuspid valve, heavily calcified with reduced opening. Tricuspid valve is normal. Descending thoracic aorta appears to be normal. No pericardial effusion was noted. Contrast bubble study revealed no shunting across the intra-atrial septum. Doppler: Pulse wave and color Doppler were obtained, mild to moderate mitral was mild tricuspid and aortic regurgitation. The peak gradient across the aortic valve was 67 mmHg with a mean of 42 mmHg. There is no shunting by color Doppler study Conclusion: 1. Normal size with mildly to moderately impaired systolic function with segmental wall motion abnormality 2. Severe aortic stenosis with mild aortic regurgitation 3. And [id number] mitral regurgitation 4. No shunting across the intra-atrial septum 5. Normal appearance of the left atrial appendage
[2022-08-19 12:20] LABS: Glucose,Whole Blood 163 mg/dL (70-110)
--- NOTE | 2022-08-19 12:24 | PN ---
PROGRESS NOTE SUBJECTIVE: Mr. Mantilla remains in sinus rhythm. Apparently, he has stroke in 2 areas. I am not sure if this is embolic, looks more lacunar. However, he is going to have a transesophageal echo today. His right side is not moving, but he seems to be responding to commands when asked to open his eyes. Sinus rhythm, hemodynamically stable. OBJECTIVE: NECK: Revealed no JVD. No carotid bruit. HEART: S1 and S2 with a short systolic murmur. LUNGS: Reveal ventilatory-assisted breath sounds. ABDOMEN: Unchanged. LOWER EXTREMITIES: Unchanged. PLAN: To continue current medical regimen. Transesophageal echo by Dr. Amador today. Prognosis remains guarded. MMODL / IJN: [id number] /
--- NOTE | 2022-08-19 13:23 | P.PN ---
Subjective Progress Note Date: 08/19/22 The patient is seen at bedside and per nurse he is opening his eyes and moving the left side. Patient is scheduled for [facility] today. Objective - Vital Signs Vital signs: Vital Signs Temp 98.7 F 08/19/22 12:00 Pulse 75 08/19/22 13:00 Resp 20 08/19/22 13:00 BP 108/60 08/19/22 13:00 Pulse Ox 99 08/19/22 13:00 FiO2 40 08/19/22 12:00 Intake & Output 08/18/22 08/19/22 08/19/22 18:59 06:59 18:59 Intake Total 2145 736 1053 Output Total 1115 1256 430 Balance 1030 -520 623 Weight 95.4 kg 95.4 kg Intake: IV 1200 580 0.9 KVO 80 Dextrose 5% in Water 1, 1200 500 000 ml @ 100 mls/hr IV . Q10H [facility] Rx#:[id number] Intake, IV Titration 50 750 Amount Dextrose 5% in Water 1, 600 000 ml @ 100 mls/hr IV . Q10H [facility] Rx#:[id number] Potassium Chloride 20 meq 100 In Water For Injection 1 100ml.bag @ 50 mls/hr IVPB Q2H [facility] Rx#: [id number] cefTRIAXone 2 gm In 50 50 Sodium Chloride 0.9% 50 ml @ 100 mls/hr IVPB Q24HR [facility] Rx#:[id number] Tube Feeding 315 126 63 Other 580 30 240 Output: Urine 1115 1256 430 Other: Voiding Method Indwelling Catheter Indwelling Catheter Indwelling Catheter ABP, PAP, CO, CI - Last Documented Arterial Blood Pressure 149/55 - Exam GENERAL: The patient is lying in bed and does not appear in acute distress. LUNG: Intubated on ventilator. NEUROLOGICAL: Limited because of patient's condition. Higher mental function: Is severely drowsy but following few simple commands. Cranial nerves: I opening his eyes to command. No appreciable facial weakness. Is breathing over the vent. Rest is limited. Motor: The strength is Is attempting to lift the left upper extremity but no gravity appreciated has 1-2 strength. Left hand has some antigravity in fingers (thumb and index). Left lower wiggle toes. No movement noted over the right side. Cerebellum: Unable to assess. Sensation: ome withdrawal of lowers to painful stimuli. SOME OF THE WORK-UP DURING THIS HOSPITAL VISIT CONSISTED OF: Lipid panels triglyceride 124, cholesterol 123, LDLs 81 and HDL is a 60 Hemoglobin A1c 9.2. White virus to start nondetected CT head is reported as acute/subacute CVA on the medial aspect of the right cerebellar hemisphere. Additional acute/subacute CVA including the left frontal/parietal lobe deep white matter and right temporal lobe Repeat CT head on 08/18/22: Overall similar examination from the yesterday with acute/subacute CVA in the medial aspect of the right cerebellar hemisphere, left frontal parietal lobe deep white matter and right temporal lobe. No hemorrhagic conversion. Different vascular territories suggest embolic phenomena. 2-D echo from 08/13/2022 revealed mildly increase septal wall thickness. Left ventricular systolic function is decreased at 40-45%. Inferior hypokinesis. Moderate to severe aortic stenosis. EEG was performed, which was abnormal due to background slowing of severe degree. This is suggestive of generalized cerebral dysfunction as can be seen with toxic metabolic encephalopathy or due to diffuse structural brain abnormality. Clinical correlation is recommended. No epileptiform activity was seen. Carotid duplex is reported as there is plaque formation in image and measurements suggest 25% stenosis in both internal carotid arteries. Vertebral artery flow was not demonstrated on this exam. - Labs CBC & Chem 7: 08/19/22 04:45 08/19/22 04:45 Labs: Abnormal Lab Results - Last 24 Hours (Table) 08/18/22 08/18/22 08/19/22 Range/Units 18:23 23:56 02:21 RBC (4.30-5.90) m/uL Hgb (13.0-17.5) gm/dL Hct (39.0-53.0) % Neutrophils # (1.3-7.7) k/uL ABG pH (7.35-7.45) ABG pCO2 (35-45) mmHg ABG HCO3 (21-25) mmol/L ABG Total CO2 (19-24) mmol/L ABG O2 Saturation (94-97) % Sodium (137-145) mmol/L Potassium (3.5-5.1) mmol/L Chloride (98-107) mmol/L Carbon Dioxide (22-30) mmol/L BUN (9-20) mg/dL Glucose (74-99) mg/dL POC Glucose (mg/dL) 295 H 294 H 241 H (70-110) mg/dL 08/19/22 08/19/22 08/19/22 Range/Units 04:45 04:45 05:32 RBC 3.43 L (4.30-5.90) m/uL Hgb 10.3 L (13.0-17.5) gm/dL Hct 32.5 L (39.0-53.0) % Neutrophils # 8.1 H (1.3-7.7) k/uL ABG pH (7.35-7.45) ABG pCO2 (35-45) mmHg ABG HCO3 (21-25) mmol/L ABG Total CO2 (19-24) mmol/L ABG O2 Saturation (94-97) % Sodium 149 H (137-145) mmol/L Potassium 3.4 L (3.5-5.1) mmol/L Chloride 111 H (98-107) mmol/L Carbon Dioxide 32 H (22-30) mmol/L BUN 54 H (9-20) mg/dL Glucose 211 H (74-99) mg/dL POC Glucose (mg/dL) 188 H (70-110) mg/dL 08/19/22 08/19/22 08/19/22 Range/Units 05:46 06:46 12:18 RBC (4.30-5.90) m/uL Hgb (13.0-17.5) gm/dL Hct (39.0-53.0) % Neutrophils # (1.3-7.7) k/uL ABG pH 7.60 H* (7.35-7.45) ABG pCO2 32 L (35-45) mmHg ABG HCO3 32 H (21-25) mmol/L ABG Total CO2 33 H (19-24) mmol/L ABG O2 Saturation 98.9 H (94-97) % Sodium (137-145) mmol/L Potassium (3.5-5.1) mmol/L Chloride (98-107) mmol/L Carbon Dioxide (22-30) mmol/L BUN (9-20) mg/dL Glucose (74-99) mg/dL POC Glucose (mg/dL) 181 H 163 H (70-110) mg/dL Assessment and Plan Assessment: * Acute to subacute ischemic stroke at different territories which is suggestive of embolic/cardioembolic (CT medial aspect of the right cerebellar hemisphere, left frontal/parietal lobe deep white matter and right temporal lobe). * Altered mental status due to multifactorial: Due to acute stroke, toxic-metabo lic encephalopathy. No seizure on EEG.---mentation slightly better today compared to yesterday. * Acute hypoxic respiratory failure on mechanical ventilation * Acute systolic CHF, pulmonary edema, ischemic cardiomyopathy, acute STEMI * Status post cardiac stent placement RCA 08/13/2022 * Diabetic ketoacidosis * Acute renal failure that is trending down * History of asthma * Anemia Plan: Agree with pursuing with [facility]. Cardiology on board and there are performed and the they will attempt to pursue the [facility] possibly tomorrow according to the nurse. Patient currently on aspirin 81 mg daily and Brilinta 90 mg twice a day. I started the patient on Lipitor 40 mg daily at bedtime for secondary stroke prophylaxis. LDL goal is less than 70 for stroke Hemoglobin A1c 9.2. Recommend optimize control of diabetes. Telemetry monitoring rule out paroxysmal atrial fibrillation. Carotid duplex is reported as there is plaque formation in image and measurements suggest 25% stenosis in both internal carotid arteries. Vertebral artery flow was not demonstrated on this exam. I would recommend that a CT angiography of the neck for better evaluation of the vertebral arteries once the kidney function has normalized. Recommend avoiding Dilaudid as much as possible as well as holding off any sedation for better neurological examination Cardiology team is on board Continue neuro checks On cardiac monitoring PT OT and [employer] SUPERVISOR are consulted Nephrology team is on board We'll defer the rest of the medical management to the primary and ICU team. For DVT prophylaxis recommend subcu heparin or Lovenox if felt safe by the primary team. In the meantime continue SCD's. Patient condition is very guarded I discussed with the patient's ICU attending and nurse Time with Patient: Less than 30
[2022-08-19] MEDS: HEPARIN SODIUM,PORCINE/PF 5,000 UNIT/0.5 ML SYRINGE SQ SCH ×2 (16:00→23:49)
[2022-08-19 17:18] LABS: Glucose,Whole Blood 175 mg/dL (70-110)
[2022-08-19] MEDS: ATORVASTATIN 40 MG TAB PO SCH (20:45)
[2022-08-19 23:44] LABS: Glucose,Whole Blood 182 mg/dL (70-110)
[2022-08-20] MEDS: HYDROmorphone 0.5 MG/0.5 ML SYRINGE IVP PRN ×5 (01:00→22:49)
[2022-08-20] MEDS: DEXTROSE 5% IN WATER 1,000 ML IV SCH (03:42)
[2022-08-20] MEDS: ARTIFICIAL TEARS-HYPROMELLOSE DROPS 15 ML BTL BOTH EYES SCH ×5 (03:44→20:54)
[2022-08-20 04:43] LABS: Basophils % (A) 0 %; Eosinophils # (A) 0.4 k/uL (0-0.7); Eosinophils % (A) 4 %; HCT 31.5 % (39.0-53.0); Hypochromasia Moderate; Lymphocytes % (A) 12 %; MCH 30.2 pg (25.0-35.0); MCHC 31.7 g/dL (31.0-37.0); MCV 95.4 fL (80.0-100.0); Mean Platelet Volume 8.4; Monocytes # (A) 0.5 k/uL (0-1.0); Monocytes % (A) 5 %; Neutrophils # (A) 6.9 k/uL (1.3-7.7); Neutrophils % (A) 77 %; Platelet Count 273 k/uL (150-450); RBC 3.31 m/uL (4.30-5.90); RDW 13.3 % (11.5-15.5)
[2022-08-20 04:54] LABS: Calcium 8.6 mg/dL (8.4-10.2); Potassium 3.5 mmol/L (3.5-5.1)
[2022-08-20] MEDS: POTASSIUM BICARBONATE/CIT AC 20 MEQ TABLET.EFF NG-TUBE SCH ×2 (05:14→06:17)
[2022-08-20 05:15] LABS: ABG HCO3 29 mmol/L (21-25); ABG PCO2 39 mmHg (35-45); ABG PH 7.49 (7.35-7.45); ABG PO2 116 mmHg (83-108); ABG TCO2 31 mmol/L (19-24)
[2022-08-20 05:21] LABS: Allen Test Performed? no
[2022-08-20 05:32] LABS: Glucose,Whole Blood 269 mg/dL (70-110)
[2022-08-20] MEDS: INSULIN ASPART (NovoLOG) 100 UNIT/ML VIAL SQ SCH ×8 (05:34→23:40)
[2022-08-20] MEDS: INSULIN DETEMIR (LEVEMIR) 100 UNIT/ML SYR SQ SCH (06:03)
--- NOTE | 2022-08-20 07:54 | XR ---
EXAMINATION TYPE: XR chest 1V portable DATE OF EXAM: 08/20/2022 Comparison: 08/18/2022 Clinical History: 67-year-old male Pt on ventilator Findings: ET tube tip at the level of the upper medial clavicular heads. Consider slight advancement by 1 cm. N G tube courses below the diaphragm. Low lung volumes. Heart appears borderline enlarged. Patchy bibas ilar opacities persist. Impression: 1. Consider slight advancement of the ET tube by 1 cm. 2. Hypoventilatory change on the present images. Patchy bibasilar infiltrates persist.
[2022-08-20] MEDS: hydrALAZINE HCL 25 MG TAB PO SCH ×2 (09:06→20:55)
[2022-08-20] MEDS: ASPIRIN 81 MG PO SCH (09:06)
[2022-08-20] MEDS: CHLORHEXIDINE GLUCONATE 15 ML CUP MUCOUS MEM SCH ×2 (09:06→20:54)
[2022-08-20] MEDS: METOPROLOL TARTRATE 25 MG TAB PO SCH ×3 (09:06→21:53)
[2022-08-20] MEDS: amLODIPine 10 MG TAB PO SCH (09:06)
[2022-08-20] MEDS: PANTOPRAZOLE 40 MG/10 ML VIAL IVP SCH (09:06)
[2022-08-20] MEDS: TICAGRELOR 90 MG TAB PO SCH ×2 (09:06→20:54)
[2022-08-20] MEDS: HEPARIN SODIUM,PORCINE/PF 5,000 UNIT/0.5 ML SYRINGE SQ SCH ×2 (09:06→16:05)
--- NOTE | 2022-08-20 09:17 | P.PN ---
Subjective Patient is seen in follow-up for acute kidney injury. Renal function improved. Sodium level also better today. Currently receiving water flushes a tube feeds and also on D5W. Intubated. Nonoliguric. Vital signs are stable. General: Resting in bed. HEENT: Intubated. LUNGS: Breath sounds decreased. HEART: Rate and Rhythm are regular. ABDOMEN: Soft, no distention. EXTREMITITES: No edema. Objective - Vital Signs Vital signs: Vital Signs Temp 98.3 F 08/20/22 08:00 Pulse 82 08/20/22 08:00 Resp 20 08/20/22 08:00 BP 115/73 08/20/22 08:00 Pulse Ox 99 08/20/22 08:00 FiO2 40 08/20/22 08:24 Intake & Output 08/19/22 08/20/22 08/20/22 18:59 06:59 18:59 Intake Total 1888 2185 470 Output Total 795 965 175 Balance 1093 1220 295 Weight 95.4 kg 95.1 kg Intake: IV 1100 200 Dextrose 5% in Water 1, 1100 200 000 ml @ 100 mls/hr IV . Q10H [facility] Rx#:[id number] Intake, IV Titration 1250 100 Amount Dextrose 5% in Water 1, 1100 100 000 ml @ 100 mls/hr IV . Q10H [facility] Rx#:[id number] Potassium Chloride 20 meq 100 In Water For Injection 1 100ml.bag @ 50 mls/hr IVPB Q2H [facility] Rx#: [id number] cefTRIAXone 2 gm In 50 Sodium Chloride 0.9% 50 ml @ 100 mls/hr IVPB Q24HR [facility] Rx#:[id number] Tube Feeding 168 385 70 Other 470 600 200 Output: Urine 795 965 175 Other: Voiding Method Indwelling Catheter Indwelling Catheter ABP, PAP, CO, CI - Last Documented Arterial Blood Pressure 120/56 - Labs CBC & Chem 7: 08/20/22 04:08 08/20/22 04:08 Labs: Abnormal Lab Results - Last 24 Hours (Table) 08/19/22 08/19/22 08/19/22 Range/Units 12:18 17:16 23:42 RBC (4.30-5.90) m/uL Hgb (13.0-17.5) gm/dL Hct (39.0-53.0) % ABG pH (7.35-7.45) ABG pO2 (83-108) mmHg ABG HCO3 (21-25) mmol/L ABG Total CO2 (19-24) mmol/L ABG O2 Saturation (94-97) % Chloride (98-107) mmol/L BUN (9-20) mg/dL Glucose (74-99) mg/dL POC Glucose (mg/dL) 163 H 175 H 182 H (70-110) mg/dL 08/20/22 08/20/22 08/20/22 Range/Units 04:08 04:08 05:12 RBC 3.31 L (4.30-5.90) m/uL Hgb 10.0 L (13.0-17.5) gm/dL Hct 31.5 L (39.0-53.0) % ABG pH 7.49 H (7.35-7.45) ABG pO2 116 H (83-108) mmHg ABG HCO3 29 H (21-25) mmol/L ABG Total CO2 31 H (19-24) mmol/L ABG O2 Saturation 99.0 H (94-97) % Chloride 110 H (98-107) mmol/L BUN 49 H (9-20) mg/dL Glucose 257 H (74-99) mg/dL POC Glucose (mg/dL) (70-110) mg/dL 08/20/22 Range/Units 05:30 RBC (4.30-5.90) m/uL Hgb (13.0-17.5) gm/dL Hct (39.0-53.0) % ABG pH (7.35-7.45) ABG pO2 (83-108) mmHg ABG HCO3 (21-25) mmol/L ABG Total CO2 (19-24) mmol/L ABG O2 Saturation (94-97) % Chloride (98-107) mmol/L BUN (9-20) mg/dL Glucose (74-99) mg/dL POC Glucose (mg/dL) 269 H (70-110) mg/dL Assessment and Plan Plan: Assessment: 1. acute kidney injury secondary to ATN secondary to acute NC/hypotension. Improving. Creatinine 1.05 today. Nonoliguric. No hydronephrosis noted on kidney ultrasound. Left kidney wasn't properly visualized. 2. Acute inferior wall NC status post cardiac cath with RCA stent. 3. Cardiomyopathy with ejection fraction of 40-45%. 4. Hypernatremia from lack of oral water intake. 5. Acute hypoxic respiratory failure. 6. CVA. Been followed by neurology. 7. Hypokalemia from poor intake. 8. Diabetes mellitus. Plan: Stop D5W. Increase water flushes to 250 mL every 4 hours with tube feeds. Avoid nephrotoxins. Continue to monitor renal function and urine output. Follow-up echocardiogram. Wean FiO2. Replace potassium.
--- NOTE | 2022-08-20 09:18 | P.PN ---
Subjective Progress Note Date: 08/20/22 Patient this morning briefly open his eyes with sternal rub. He was difficult to arouse. Patient did get some Dilaudid last night. I discussed with the ICU nurse to not give any Dilaudid unless patient is more awake and alert. Objective - Vital Signs Vital signs: Vital Signs Temp 98.3 F 08/20/22 08:00 Pulse 82 08/20/22 08:00 Resp 20 08/20/22 08:00 BP 115/73 08/20/22 08:00 Pulse Ox 99 08/20/22 08:00 FiO2 40 08/20/22 08:24 Intake & Output 08/19/22 08/20/22 08/20/22 18:59 06:59 18:59 Intake Total 1888 2185 470 Output Total 795 965 175 Balance 1093 1220 295 Weight 95.4 kg 95.1 kg Intake: IV 1100 200 Dextrose 5% in Water 1, 1100 200 000 ml @ 100 mls/hr IV . Q10H [facility] Rx#:[id number] Intake, IV Titration 1250 100 Amount Dextrose 5% in Water 1, 1100 100 000 ml @ 100 mls/hr IV . Q10H [facility] Rx#:[id number] Potassium Chloride 20 meq 100 In Water For Injection 1 100ml.bag @ 50 mls/hr IVPB Q2H [facility] Rx#: [id number] cefTRIAXone 2 gm In 50 Sodium Chloride 0.9% 50 ml @ 100 mls/hr IVPB Q24HR [facility] Rx#:[id number] Tube Feeding 168 385 70 Other 470 600 200 Output: Urine 795 965 175 Other: Voiding Method Indwelling Catheter Indwelling Catheter ABP, PAP, CO, CI - Last Documented Arterial Blood Pressure 120/56 - Exam General examination -intubated and in no acute distress Heart - + S1S2 no murmurs Lungs -diminished breath sounds bilaterally Abdomen soft NT ND +ve BS Extremities -+1 pitting edema bilateral lower extremities DISABILITY MANAGER -patient minimally responsive this morning Psych -unable to assess due to altered mental status - Labs CBC & Chem 7: 08/20/22 04:08 08/20/22 04:08 Labs: Abnormal Lab Results - Last 24 Hours (Table) 08/19/22 08/19/22 08/19/22 Range/Units 12:18 17:16 23:42 RBC (4.30-5.90) m/uL Hgb (13.0-17.5) gm/dL Hct (39.0-53.0) % ABG pH (7.35-7.45) ABG pO2 (83-108) mmHg ABG HCO3 (21-25) mmol/L ABG Total CO2 (19-24) mmol/L ABG O2 Saturation (94-97) % Chloride (98-107) mmol/L BUN (9-20) mg/dL Glucose (74-99) mg/dL POC Glucose (mg/dL) 163 H 175 H 182 H (70-110) mg/dL 08/20/22 08/20/22 08/20/22 Range/Units 04:08 04:08 05:12 RBC 3.31 L (4.30-5.90) m/uL Hgb 10.0 L (13.0-17.5) gm/dL Hct 31.5 L (39.0-53.0) % ABG pH 7.49 H (7.35-7.45) ABG pO2 116 H (83-108) mmHg ABG HCO3 29 H (21-25) mmol/L ABG Total CO2 31 H (19-24) mmol/L ABG O2 Saturation 99.0 H (94-97) % Chloride 110 H (98-107) mmol/L BUN 49 H (9-20) mg/dL Glucose 257 H (74-99) mg/dL POC Glucose (mg/dL) (70-110) mg/dL 08/20/22 Range/Units 05:30 RBC (4.30-5.90) m/uL Hgb (13.0-17.5) gm/dL Hct (39.0-53.0) % ABG pH (7.35-7.45) ABG pO2 (83-108) mmHg ABG HCO3 (21-25) mmol/L ABG Total CO2 (19-24) mmol/L ABG O2 Saturation (94-97) % Chloride (98-107) mmol/L BUN (9-20) mg/dL Glucose (74-99) mg/dL POC Glucose (mg/dL) 269 H (70-110) mg/dL Assessment and Plan Assessment: Acute inferior ST segment elevated myocardial infarction Moderate to severe aortic stenosis Severe Pum HTN RVSP 50 Acute systolic heart failure Cardiogenic shock: Resolved and patient now off pressors Ventilator dependent respiratory failure -Cardiology recommendations. Continue with aspirin, Brillenta, Lipitor, metoprolol -Defer diuretics to nephrology and cardiology. Patient currently not on any diuretics -Harnessmaker to manage vent Acute encephalopathy likely due to acute CVA versus toxic metabolic encephalopathy Acute CVA Patient off sedation CT head showed acute/subacute stroke Neurology on board Patient on dual antiplatelet therapy as above and also on statin Carotid Dopplers negative for significant stenosis Patient is responsive today compared to yesterday Haemophillus PNA -Resume IV Rocephin - pulm recs RASHMI - nephrology recs - nonobstructing calculi vs angiomyolipoma right upper pole -Improving Hyponatremia Patient started on D5 drip Trend BMP Improving DM 2 with hyperglycemia with neuropathy DKA resolved - Levimir 20 units, Novolog 6 q6 + sliding scale - hold metformin and Glucotrol -Hemoglobin A1c is 9.2 Chronic: Asthma OA Eczema Patient is DNR/DNI. DVT prophylaxis: Subcu heparin Discussed with: nursing Anticipated discharge: pending clinical course Anticipated discharge place: pending clinical course
[2022-08-20 11:22] LABS: Glucose,Whole Blood 220 mg/dL (70-110)
--- NOTE | 2022-08-20 12:38 | P.PN ---
Subjective Progress Note Date: 08/20/22 Principal diagnosis: Respiratory failure. This is a 67-year-old white male with history of problems including asthma, diabetes, degenerative joint disease, patient was brought into the ER yesterday with mostly sudden onset of shortness of breath and chest pain. Patient was in extreme respiratory distress upon arrival to the ER, he was placed on BiPAP initially, and he continued to have significant dyspnea. Patient was intubated by the ER physician, workup showed evidence of acute inferior ST elevation myocardial infarction. Patient was seen by cardiology on consultation, and he underwent cardiac catheterization and stenting of the RCA which was totally occluded. In the meantime the patient was noted to have extensive pulmonary edema, acute hypoxic respiratory failure secondary to pulmonary edema, underlying pneumonia is not entirely ruled out but felt to be less likely. Nonetheless the patient will be covered empirically with antibiotics for presumptive aspiration pneumonia since significant airspace disease is noted in the right lung compared to the left lung. I saw this patient this morning, patient is intubated and mechanically ventilated, he is on assist control rate of 20, FiO2 was 100% I cut it down to 80%, he had tidal volume of 500, PEEP was at 14. As soon as I evaluated the patient, clearly the patient was not synchronous with mechanical ventilation, hence I recommended increasing his propofol to 75 mcg/kg/m, patient continued to remain asynchronous with the ventilator, and he seems to be working quite hard at it. Then I recommended sta rting the patient on Nimbex and start a Nimbex drip. ABG done later showed a pO2 of 125 pCO2 51 pH of 7.4, hence I increased the rate from 20-26. Another ABG is pending. Patient is requiring norepinephrine at 0.1 mcg/kg/m, he is also on insulin drip for what seems to be in DKA picture. His IV fluid at 20 mL per hour. Patient is now on Nimbex and on Lasix 40 mg IV push every 8 hours, and I added clindamycin empirically. Patient is ALLERGIC to penicillin. Patient had no good venous access when I arrived to see the patient this morning, hence on emergency basis I established a left femoral triple-lumen catheter, and a left radial arterial line. His echocardiogram showed ejection fraction of 40-45%. Patient is on Aggrastat, and he was on heparin earlier with a PTT over 200. Hence I recommended a groin access rather than having a neck or subclavian access after obtaining the ABG, I cut down his FiO2 down to 65%. Looking at the labs, apparently the patient sustained a acute kidney injury, BUN is 60 creatinine 2.38. His creatinine on admission was 1.97, I believe this is mostly related to hypoperfusion as well as related to his cardiac catheterization/contrast media. Reevaluated today on 08/14/22, patient remains in the ICU, remains intubated and mechanically ventilated. Remains on propofol and Nimbex. His ventilator settings are assist control rate of 26 FiO2 50% and PEEP of 12 and I cut it down to 10 tidal volume of 500. ABG this morning showed a pO2 of 75 pCO2 of 41 pH of 7.39. Hence no change was made except cutting down the PEEP from 12-10. Chest x-ray is showing definite improvement in his pulmonary edema but nonetheless continues to have significant interstitial edema especially in the right lung. His urine output is picking up nicely in spite of the fact that the patient is requiring norepinephrine at 0.1 mcg/kg/m. Patient is on Nimbex at 1 mcg/kg/m, propofol 40 mcg/kg/m, and he is on insulin drip at 4.25 units per hour. After reviewing his chest x-ray and reviewing his ABG, I felt it would be best to keep the patient sedated and paralyzed for now. Not much room to start weaning. His urine output is picking up nicely, and that would be helpful for further weaning as his pulmonary edema starts improving. WBC count today is 12 hemoglobin is 10.6. Blood sugar is 232. PTT is 51.3. And his BUN is 64 creatinine is down to 2.58 from 2.68 yesterday. His troponin yesterday was 3.39 and his BNP level was 11,200 Progress note dated 08/15/2022. This is a 67-year-old male who was admitted on August 13, the diagnoses of ST segment elevation myocardial infarction, diabetic ketoacidosis, and CHF. The patient was intubated on August 13. He went to the catheterization laboratory and had a stent placed in the right coronary artery. He remains on mechanical ventilator. He is currently on by volume assist control, rate 26, tidal volume 500, FiO2 50%, and PEEP of 10. Blood gases show pO2 of 82, pCO2 39, and a pH is 7.42. The patient remains on propofol at 40 mcg/kg/m, insulin at 3.5 units an hour, Nimbex at 2 mcg/kg/m, with [id number] monitoring, saline at 20 mL an hour, and Nepro tube feedings at 10 mL an hour. White count 12.5, hemoglobin 10.2, hematocrit 30.8, and platelet count 292,000. Sodium 141, potassium 4, c hloride 109, CO2 25, BUN 64, creatinine 2.03. Chest x-ray shows persistent right lung infiltrate and/or edema. Chest x-ray is unchanged. Progress note dated 08/16/2022. 67-year-old male seen again in room 264. He was admitted on August 13. The patient came in with a diagnosis of an ST segment elevation myocardial infarction, CHF, and diabetic ketoacidosis. He had a stent placed in his right coronary artery. He was intubated. He remains on the mechanical ventilator. Yesterday, he was on Nimbex, but we've been able to wean that off. Currently, he is on the volume assist control, rate 26, tidal volume 500, FiO2 40%, and PEEP of 10. Blood gases on 50% showed a pO2 134, pCO2 of 38, and a pH is 7.45. The patient remains on propofol at 35 mcg/kg/m, saline at 20 mL an hour, and Nepro tube needs, he is an hour, which is goal. Today, we will do a daily interruption of sedation. His sputum was positive for H. influenzae. Patient remains on Rocephin. White count 11, hemoglobin 9.5, hematocrit 29.1, and platelet count 256,000. Sodium 144, potassium 4, chlorides 110, CO2 26, anion gap 8, BUN 76, creatinine 2.32. Chest x-ray compared to prior x-rays, is improved. Progress note dated 08/17/2022. 67-year-old male seen again in room 264. The patient was admitted on August 13. He came in with a diagnosis of ST segment elevation myocardial infarction, CHF, and diabetic ketoacidosis. He had a stent placed in his right coronary artery. He was intubated, and remains on mechanical ventilator. Currently, settings include the volume assist control, rate 26, tidal volume 500, FiO2 40%, and PEEP of 10. Blood gases show pO2 107, pCO2 39, and a pH is 7.49. The patient's getting Nepro at 21 mL an hour, which is goal. We will add D5W at 100 mL an hour. In addition, for better blood pressure control, the patient will be placed back on amlodipine, and the nurses can use Cleveprex and titrate it. White count 8.6, hemoglobin 10.1, hematocrit 31.6, with a normal platelet count. Sodium 150, potassium 3.7, chlorides 113, CO2 28, BUN 70, creatinine 1.48. The saline IV was discontinued in favor of D5W at 100 mL an hour. The patient's chest x-ray shows similar infiltrates in the perihilar regions. Sputum is showing Haemophilus influenzae from August 13. Progress note dated 08/18/2022. 67-year-old male seen in room 264. The patient had been taken off the sedation, and was nonresponsive. We will order a stat EEG, computed tomography scan, and neurology consultation. The EEG showed diffuse slowing, consistent with toxic/metabolic encephalopathy. The computed tomography scan of the brain showed 2 areas of acute/subacute infarct, involving the right cerebellar area, as well as the left frontoparietal area. The patient is still unresponsive. He remains on the ventilator, with settings of volume assist control, rate 26, tidal volume 500, FiO2 40%, and PEEP of 10. Blood gases show pO2 103, pCO2 36, pH is 7.56. The patient's getting D5W at 100 mL an hour, and Nepro 21 mL an hour. The patient will apparently be made comfort measures by his family either later today or tomorrow. We should also discussed CODE STATUS with the family. 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 This would be a preterminal event. White count 9.3, hemoglobin 10, hematocrit 31.6, platelet count normal. Sodium 149, potassium 3.6, chlorides 113, CO2 31, BUN 63, creatinine 1.39. Sputum from August 13 showed Haemophilus influenzae. Chest x-ray is mostly normal, with some minimal infiltrates or atelectasis. Progress note dated 08/19/2022. 67-year-old male, again seen in room 264. The patient is currently still on the mechanical ventilator, with settings of volume assist control, rate 26, to be dropped down to 20, tidal volume 500, FiO2 40%, and PEEP of 10. Blood gases show a PaO2 101, he CO2 32, and a pH is 7.6. He is getting dextrose at 100 mL an hour, saline at 20 mL an hour, and tube feedings with Nepro at 21 mL an hour, which is on hold. The patient is apparently scheduled for a transesophageal echocardiogram today. His neurologic status apparently has improved somewhat as he is able to open his eyes to verbal commands. White count 10.2, hemoglobin 10.3, hematocrit 32.5, and platelet count 251,000. Sodium 149, potassium 3.4, chlorides 111, CO2 32, BUN 54, and creatinine 1.24. Sputum from August 13, shows Haemophilus influenzae. Progress note dated 08/20/2022. 67-year-old male seen again in room 264. He remains on the mechanical ventilator. He is much less responsive today than yesterday. Currently, he is on volume assist control, rate 20, tidal volume 500, FiO2 40%, and PEEP of 10. Blood gases show pO2 116, pCO2 of 39, and a pH is 7.49. The PEEP was dropped down from 10 down to 5. The patient's getting dextrose at 10 mL an hour, and tube feedings with Nepro at 35 mL an hour, which is goal. The patient would likely be a tracheostomy and PEG tube candidate next week, should he not show any additional neurologic improvement. The nurse will speak to the family about this. White count 9, hemoglobin 10, hematocrit 31.5, and platelet count 273,000. Sodium 143, potassium 3.5, chlorides 110, CO2 28, BUN 49, creatinine 1.05. The chest x-ray shows bibasilar patchy infiltrates. Objective - Vital Signs Vital signs: Vital Signs Temp 98.3 F 08/20/22 08:00 Pulse 71 08/20/22 11:00 Resp 16 08/20/22 11:00 BP 111/66 08/20/22 11:00 Pulse Ox 99 08/20/22 11:00 FiO2 40 08/20/22 12:00 Intake & Output 08/19/22 08/20/22 08/20/22 18:59 06:59 18:59 Intake Total 1888 2185 980 Output Total 795 965 425 Balance 1093 1220 555 Weight 95.4 kg 95.1 kg Intake: IV 1100 240 Dextrose 5% in Water 1, 1100 240 000 ml @ 100 mls/hr IV . Q10H JUANA Rx#:[id number] Intake, IV Titration 1250 100 Amount Dextrose 5% in Water 1, 1100 100 000 ml @ 100 mls/hr IV . Q10H JUANA Rx#:[id number] Potassium Chloride 20 meq 100 In Water For Injection 1 100ml.bag @ 50 mls/hr IVPB Q2H JUANA Rx#: [id number] cefTRIAXone 2 gm In 50 Sodium Chloride 0.9% 50 ml @ 100 mls/hr IVPB Q24HR JUANA Rx#:[id number] Tube Feeding 168 385 210 Other 470 600 530 Output: Urine 795 965 425 Other: Voiding Method Indwelling Catheter Indwelling Catheter Indwelling Catheter ABP, PAP, CO, CI - Last Documented Arterial Blood Pressure 119/50 - Exam No acute distress, with an orally placed endotracheal tube and NG tube, and currently not on any sedation. HEENT examination is grossly unremarkable. Neck supple. Full range of motion. No adenopathy thyromegaly or neck vein distention. Cardiovascular examination reveals regular rhythm rate. S1-S2 normal. No S3 or S4. No discernible murmur noted. Heart sounds are distant. Heart rate 71 beats a minute. Lungs reveal scattered bilateral rhonchi. No wheezes. No distinct crackles. B reath sounds equal. Saturation is 99 %. Abdomen soft bowel sounds are heard. No masses or tenderness. Extremities are intact. No cyanosis clubbing or edema. Skin is without rash or lesion. Neurologic examination reveals a patient who is much less alert today than he was yesterday. - Labs CBC & Chem 7: 08/20/22 04:08 08/20/22 04:08 Labs: Abnormal Lab Results - Last 24 Hours (Table) 08/19/22 08/19/22 08/20/22 Range/Units 17:16 23:42 04:08 RBC 3.31 L (4.30-5.90) m/uL Hgb 10.0 L (13.0-17.5) gm/dL Hct 31.5 L (39.0-53.0) % ABG pH (7.35-7.45) ABG pO2 (83-108) mmHg ABG HCO3 (21-25) mmol/L ABG Total CO2 (19-24) mmol/L ABG O2 Saturation (94-97) % Chloride (98-107) mmol/L BUN (9-20) mg/dL Glucose (74-99) mg/dL POC Glucose (mg/dL) 175 H 182 H (70-110) mg/dL 08/20/22 08/20/22 08/20/22 Range/Units 04:08 05:12 05:30 RBC (4.30-5.90) m/uL Hgb (13.0-17.5) gm/dL Hct (39.0-53.0) % ABG pH 7.49 H (7.35-7.45) ABG pO2 116 H (83-108) mmHg ABG HCO3 29 H (21-25) mmol/L ABG Total CO2 31 H (19-24) mmol/L ABG O2 Saturation 99.0 H (94-97) % Chloride 110 H (98-107) mmol/L BUN 49 H (9-20) mg/dL Glucose 257 H (74-99) mg/dL POC Glucose (mg/dL) 269 H (70-110) mg/dL 08/20/22 Range/Units 11:20 RBC (4.30-5.90) m/uL Hgb (13.0-17.5) gm/dL Hct (39.0-53.0) % ABG pH (7.35-7.45) ABG pO2 (83-108) mmHg ABG HCO3 (21-25) mmol/L ABG Total CO2 (19-24) mmol/L ABG O2 Saturation (94-97) % Chloride (98-107) mmol/L BUN (9-20) mg/dL Glucose (74-99) mg/dL POC Glucose (mg/dL) 220 H (70-110) mg/dL Assessment and Plan Assessment: Acute hypoxemic respiratory failure, secondary to acute systolic CHF, pulmonary edema, ischemic cardiomyopathy, and acute ST segment elevation myocardial infarction. Status post intubation and mechanical ventilation, on 08/13/2022. Status post stent placement, right coronary artery, 08/13/2022. Patient very poorly responsive, computed tomography scan showing right cerebellar subacute/acute infarct as well as left frontoparietal subacute/acute infarct, and EEG showing diffuse slowing, consistent with metabolic/toxic encephalopathy. Possible aspiration pneumonia. Acute diabetic ketoacidosis. Acute kidney injury. History of asthma. Degenerative joint disease. Fungal dermatitis, involving the right groin area. Plan: Plan dated 08/15/2022. The patient's insulin drip can be discontinued. The patient's sugar is better control, to gap is closed, and the bicarbonate concentration is in normal range. We'll put the patient on NovoLog sliding scale, every 6 hours. Also, we added updrafts treatments, and we will attempt to get the patient off of Nimbex. Labs, x-rays, and medications are reviewed. We will continue to follow make recommendations along the way. Prognosis is guarded. Plan dated 08/16/2022. The patient is currently on Rocephin, which should cover the H. influenzae in the sputum. We have been able to successfully wean off the Nimbex. Patient re sharon on the mechanical ventilator. He is getting tube feeds at goal. We will do a daily interruption of sedation today. FiO2 was dropped from 50%, down to 40%. Labs, x-rays, and medications are reviewed. Overall prognosis remains guarded. We will continue to follow the patient make recommendations along the way. Plan dated 08/17/2022. The patient saline IV is discontinued in favor of D5W at 100 mL an hour. In addition, we added amlodipine, and possibly Cleveprex, for better blood pressure control. The patient will have a head CT without contrast, a stat EEG, and a neurology consultation. It's quite concerning that the patient has been off of propofol for some time, and he does not respond. Labs, x-rays, and medications are reviewed. Overall prognosis remains very guarded. Plan dated 08/18/2022. The patient appears to have had significant neurologic insult, based on the co mputed tomography scan and EEG. We have asked neurology to see the patient. His prognosis is very poor. The family has been notified. 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 Certainly be a preterminal event. Labs, x-rays, medications are reviewed. Unnecessary medications have been discontinued. We will continue to follow make recommendations along the way. Plan dated 08/19/2022. Neurology plans on doing another EEG on this patient. The patient appears to be improving somewhat, and is able to open his eyes to verbal stimuli. The patient is scheduled to have a transesophageal echocardiogram today. Currently on hold. Labs, x-rays, and medications are reviewed. Overall, the prognosis remains very guarded. We will continue to follow and make recommendations where appropriate. Plan dated 08/20/2022. The patient's overall neurologic status is worse today than it was yesterday. Yesterday, he seemed to be able to open his eyes to verbal stimuli. He's not been on any sedatives. Labs, x-rays, and medications are reviewed. The patient would be a candidate for a tracheostomy and PEG tube, next week, and should he not show any neurologic improvement, and if this family continues to want him to be a full code. Transesophageal echocardiogram shows mild to moderate impaired systolic function, severe aortic stenosis with mild aortic regurgitation, and mild to moderate mitral regurgitation. There is no shunting across the intra-atrial septum. Time with Patient: Greater than 30
--- NOTE | 2022-08-20 13:26 | P.PN ---
Subjective Progress Note Date: 08/20/22 The patient is seen at bedside and per nurse was not following commands to her but was withdrawing in lowers to painful stimuli. He continue to be intubated on ventilator. It seems patient continues to be getting Dilaudid overnight and it was felt because of agitation. Objective - Vital Signs Vital signs: Vital Signs Temp 98.7 F 08/20/22 12:00 Pulse 75 08/20/22 12:00 Resp 20 08/20/22 12:00 BP 106/67 08/20/22 12:00 Pulse Ox 99 08/20/22 12:00 FiO2 40 08/20/22 12:00 Intake & Output 08/19/22 08/20/22 08/20/22 18:59 06:59 18:59 Intake Total 1888 2185 980 Output Total 795 965 425 Balance 1093 1220 555 Weight 95.4 kg 95.1 kg Intake: IV 1100 240 Dextrose 5% in Water 1, 1100 240 000 ml @ 100 mls/hr IV . Q10H [facility] Rx#:[id number] Intake, IV Titration 1250 100 Amount Dextrose 5% in Water 1, 1100 100 000 ml @ 100 mls/hr IV . Q10H [facility] Rx#:[id number] Potassium Chloride 20 meq 100 In Water For Injection 1 100ml.bag @ 50 mls/hr IVPB Q2H [facility] Rx#: [id number] cefTRIAXone 2 gm In 50 Sodium Chloride 0.9% 50 ml @ 100 mls/hr IVPB Q24HR [facility] Rx#:[id number] Tube Feeding 168 385 210 Other 470 600 530 Output: Urine 795 965 425 Other: Voiding Method Indwelling Catheter Indwelling Catheter Indwelling Catheter ABP, PAP, CO, CI - Last Documented Arterial Blood Pressure 132/49 - Exam GENERAL: The patient is lying in bed and does not appear in acute distress. LUNG: Intubated on ventilator. NEUROLOGICAL: Limited because of patient's condition. Higher mental function: Is severely drowsy but following few simple commands. Cranial nerves: Not opening his eyes. No appreciable facial weakness. Is breathing over the vent. Rest is limited. Motor: The strength is Is attempting to lift the left upper extremity but no gravity appreciated has 1-2 strength. Left hand has some antigravity in fingers (thumb and index). Left lower wiggle toes. No movement noted over the right side. Cerebellum: Unable to assess. Sensation: ome withdrawal of lowers to painful stimuli. SOME OF THE WORK-UP DURING THIS HOSPITAL VISIT CONSISTED OF: Lipid panels triglyceride 124, cholesterol 123, LDLs 81 and HDL is a 60 Hemoglobin A1c 9.2. White virus to start nondetected CT head is reported as acute/subacute CVA on the medial aspect of the right cerebellar hemisphere. Additional acute/subacute CVA including the left frontal/parietal lobe deep white matter and right temporal lobe Repeat CT head on 08/18/22: Overall similar examination from the yesterday with acute/subacute CVA in the medial aspect of the right cerebellar hemisphere, left frontal parietal lobe deep white matter and right temporal lobe. No hemorrhagic conversion. Different vascular territories suggest embolic phenomena. 2-D echo from 08/13/2022 revealed mildly increase septal wall thickness. Left ventricular systolic function is decreased at 40-45%. Inferior hypokinesis. Moderate to severe aortic stenosis. EEG was performed, which was abnormal due to background slowing of severe degree. This is suggestive of generalized cerebral dysfunction as can be seen with toxic metabolic encephalopathy or due to diffuse structural brain abnormality. Clinical correlation is recommended. No epileptiform activity was seen. Carotid duplex is reported as there is plaque formation in image and measuremen ts suggest 25% stenosis in both internal carotid arteries. Vertebral artery flow was not demonstrated on this exam. Transesophageal echocardiogram was reported as normal size with mild mildly impaired systolic function with the segmental wall motion abnormality. Ejection fraction of 40-45%. Severe aortic stenosis with mild aortic regurgitation. Mild to moderate mitral regurgitation. No shunting across the intra-atrial septum. Normal appearance of left atrial appendage. - Labs CBC & Chem 7: 08/20/22 04:08 08/20/22 04:08 Labs: Abnormal Lab Results - Last 24 Hours (Table) 08/19/22 08/19/22 08/20/22 Range/Units 17:16 23:42 04:08 RBC 3.31 L (4.30-5.90) m/uL Hgb 10.0 L (13.0-17.5) gm/dL Hct 31.5 L (39.0-53.0) % ABG pH (7.35-7.45) ABG pO2 (83-108) mmHg ABG HCO3 (21-25) mmol/L ABG Total CO2 (19-24) mmol/L ABG O2 Saturation (94-97) % Chloride (98-107) mmol/L BUN (9-20) mg/dL Glucose (74-99) mg/dL POC Glucose (mg/dL) 175 H 182 H (70-110) mg/dL 08/20/22 08/20/22 08/20/22 Range/Units 04:08 05:12 05:30 RBC (4.30-5.90) m/uL Hgb (13.0-17.5) gm/dL Hct (39.0-53.0) % ABG pH 7.49 H (7.35-7.45) ABG pO2 116 H (83-108) mmHg ABG HCO3 29 H (21-25) mmol/L ABG Total CO2 31 H (19-24) mmol/L ABG O2 Saturation 99.0 H (94-97) % Chloride 110 H (98-107) mmol/L BUN 49 H (9-20) mg/dL Glucose 257 H (74-99) mg/dL POC Glucose (mg/dL) 269 H (70-110) mg/dL 08/20/22 Range/Units 11:20 RBC (4.30-5.90) m/uL Hgb (13.0-17.5) gm/dL Hct (39.0-53.0) % ABG pH (7.35-7.45) ABG pO2 (83-108) mmHg ABG HCO3 (21-25) mmol/L ABG Total CO2 (19-24) mmol/L ABG O2 Saturation (94-97) % Chloride (98-107) mmol/L BUN (9-20) mg/dL Glucose (74-99) mg/dL POC Glucose (mg/dL) 220 H (70-110) mg/dL Assessment and Plan Assessment: * Acute to subacute ischemic stroke at different territories which is suggestive of embolic/cardioembolic (CT medial aspect of the right cerebellar hemisphere, left frontal/parietal lobe deep white matter and right temporal lobe). LUCA is negative for thrombus or shunting. * Right hemiplegic and significant left hemiparesis due to stroke * Altered mental status due to multifactorial: Due to acute stroke, toxic- metabolic encephalopathy and medication effect (Dilaudid). No seizure on EEG. * Acute hypoxic respiratory failure on mechanical ventilation * Acute systolic CHF, pulmonary edema, ischemic cardiomyopathy, acute STEMI * Status post cardiac stent placement RCA 08/13/2022 * Diabetic ketoacidosis * Acute renal failure that is trending down * History of asthma * Anemia Plan: Ordered for repeat CT head to rule . Patient currently on aspirin 81 mg daily and Brilinta 90 mg twice a day. I started the patient on Lipitor 40 mg daily at bedtime for secondary stroke prophylaxis. LDL goal is less than 70 for stroke Hemoglobin A1c 9.2. Recommend optimize control of diabetes. Telemetry monitoring rule out paroxysmal atrial fibrillation. Carotid duplex is reported as there is plaque formation in image and measurements suggest 25% stenosis in both internal carotid arteries. Vertebral artery flow was not demonstrated on this exam. I would recommend that a CT angiography of the neck for better evaluation of the vertebral arteries once the kidney function has normalized. Recommend avoiding Dilaudid as much as possible as well as holding off any sedation for better neurological examination Cardiology team is on board Continue neuro checks On cardiac monitoring PT OT and STRAIGHTENER are consulted Nephrology team is on board We'll defer the rest of the medical management to the primary and ICU team. For DVT prophylaxis recommend subcu heparin or Lovenox if felt safe by the primary team. In the meantime continue SCD's. From the perspective the patient has bilateral hemispheric stroke and likely wi ll continues to have residual deficits and be dependent for his ADLs. If the family decides to pursue with medical management then PEG and trach tube needs to be considered. Patient condition is very guarded The plan was discussed with the patient's primary team and his ICU nurse. I updated his (Triny) via phone and wants to think how to proceed. Time with Patient: Less than 30
--- NOTE | 2022-08-20 13:53 | CT ---
EXAMINATION TYPE: CT brain wo con DATE OF EXAM: 08/20/2022 COMPARISON: 08/18/2022 HISTORY: 67-year-old male Stroke follow up TECHNIQUE: Examination was done in axial plane without intravenous contrast. Coronal and sagittal r econstructions performed. CT DLP: 1276.9 mGycm Automated exposure control for dose reduction was used. FINDINGS: Similar mild hydrocephalus. Correlate to component of NPH. Similar hypodensity left frontoparietal junction superiorly and periventricular region. Hypodensity m edial aspect of the right cerebellar hemisphere redemonstrated. Hypodensity anterior pole of the righ t temporal lobe. All of these changes are similar. Moderate periventricular white matter hypodensities compatible chronic small vessel ischemic disease change. Old lacunar infarct suggested right basal ganglia. No acute cranial hemorrhage, midline shift , or herniation is seen. No extra-axial fluid collection. Mastoid air cells are well pneumatized. Air-fluid level posterior right results. Orbits and globes ap pear intact. The patient is intubated. IMPRESSION: 1. Similar evolving subacute infarcts anterior pole right temporal lobe and medial right cerebellar h emisphere. Either subacute or more chronic infarcts left frontoparietal junction superiorly. Backgrou nd moderate burden of chronic small vessel ischemic disease. No hemorrhagic transformation, midline s hift, or herniation. 2. Similar mild hydrocephalus. This may be due to central cerebral atrophy. Correlate to exclude a co mponent of NPH. 3. Possible acute right ethmoid sinusitis.
[2022-08-20 18:04] LABS: Glucose,Whole Blood 152 mg/dL (70-110)
[2022-08-20] MEDS: ATORVASTATIN 40 MG TAB PO SCH (20:54)
[2022-08-20 23:38] LABS: Glucose,Whole Blood 126 mg/dL (70-110)
[2022-08-21] MEDS: HEPARIN SODIUM,PORCINE/PF 5,000 UNIT/0.5 ML SYRINGE SQ SCH ×3 (01:00→16:42)
[2022-08-21] MEDS: ARTIFICIAL TEARS-HYPROMELLOSE DROPS 15 ML BTL BOTH EYES SCH ×6 (01:00→21:00)
[2022-08-21 04:36] LABS: HCT 31.1 % (39.0-53.0); HGB 10.1 gm/dL (13.0-17.5); Hypochromasia Moderate; MCH 30.7 pg (25.0-35.0); MCHC 32.6 g/dL (31.0-37.0); MCV 94.3 fL (80.0-100.0); Mean Platelet Volume 9.4; Platelet Count 275 k/uL (150-450); RDW 13.2 % (11.5-15.5); WBC 8.2 k/uL (3.8-10.6)
[2022-08-21] MEDS: HYDROmorphone 0.5 MG/0.5 ML SYRINGE IVP PRN ×5 (04:42→22:46)
[2022-08-21 04:46] LABS: African American GFR (CKD) >90 (>60 ml/min/1.73 sqM); Anion Gap 5 mmol/L; Blood Urea Nitrogen 39 mg/dL (9-20); Calcium 8.6 mg/dL (8.4-10.2); Carbon Dioxide 27 mmol/L (22-30); Chloride 110 mmol/L (98-107); Glucose 230 mg/dL (74-99); Non-African American GFR(CKD) 81 (>60 ml/min/1.73 sqM); Potassium 3.6 mmol/L (3.5-5.1); Sodium 142 mmol/L (137-145)
[2022-08-21] MEDS ORDERED: POTASSIUM BICARBONATE/CIT AC 20 MEQ TABLET.EFF NG-TUBE SCH (05:00)
[2022-08-21 05:11] LABS: Band Neutrophils % 5 %; Lymphocytes # (M) 0.82 k/uL (1.0-4.8); Monocytes # (M) 0.66 k/uL (0-1.0); Neutrophils % (M) 77 %; Nucleated Red Blood Cells 0 /100 WBC (0-0); Total Cells Counted 100
[2022-08-21] MEDS: INSULIN ASPART (NovoLOG) 100 UNIT/ML VIAL SQ SCH ×6 (05:16→18:17)
[2022-08-21 05:17] LABS: ABG Base Excess 4.1 mmol/L; ABG HCO3 27 mmol/L (21-25); ABG Oxygen Saturation 98.6 % (94-97); ABG PCO2 34 mmHg (35-45); ABG PH 7.51 (7.35-7.45); ABG PO2 97 mmHg (83-108); ABG TCO2 28 mmol/L (19-24)
[2022-08-21 05:18] LABS: Glucose,Whole Blood 242 mg/dL (70-110)
[2022-08-21 05:28] LABS: Allen Test Performed? no
[2022-08-21] MEDS: INSULIN DETEMIR (LEVEMIR) 100 UNIT/ML SYR SQ SCH (06:04)
--- NOTE | 2022-08-21 08:06 | XR ---
EXAMINATION TYPE: XR chest 1V portable DATE OF EXAM: 08/21/2022 Comparison: 08/20/2022 Clinical History: 67-year-old male ICU follow-up, patient on ventilator Findings: ET tube tip at the level of the medial clavicular heads. NG tube courses below the diaphragm. Heart n ormal size. On the current exposure, lung volumes are diminished. Slight increasing patchy left basil ar opacity and some improving aeration at the right base. No sizable pleural effusion. Impression: Low lung volumes on the current exam limiting the assessment. There is worsening aeration with increa sing opacity at the left base. Some improvement in aeration at the right base.
[2022-08-21] MEDS: ASPIRIN 81 MG PO SCH (08:44)
[2022-08-21] MEDS: TICAGRELOR 90 MG TAB PO SCH ×2 (08:44→21:35)
[2022-08-21] MEDS: CHLORHEXIDINE GLUCONATE 15 ML CUP MUCOUS MEM SCH ×2 (08:44→21:35)
[2022-08-21] MEDS: PANTOPRAZOLE 40 MG/10 ML VIAL IVP SCH (08:44)
[2022-08-21] MEDS: METOPROLOL TARTRATE 25 MG TAB PO SCH ×3 (08:44→21:35)
[2022-08-21] MEDS: hydrALAZINE HCL 25 MG TAB PO SCH ×2 (08:44→21:35)
[2022-08-21] MEDS: amLODIPine 10 MG TAB PO SCH (08:44)
--- NOTE | 2022-08-21 09:02 | P.PN ---
Subjective Patient is seen in follow-up for acute kidney injury and hypernatremia. Renal function improved. Sodium level normal today. Currently receiving water flushes with tube feeds. Intubated. Nonoliguric. Vital signs are stable. General: Resting in bed. HEENT: Intubated. LUNGS: Breath sounds decreased. HEART: Rate and Rhythm are regular. ABDOMEN: Soft, no distention. EXTREMITITES: No edema. Objective - Vital Signs Vital signs: Vital Signs Temp 99.2 F 08/21/22 04:00 Pulse 87 08/21/22 07:00 Resp 20 08/21/22 07:00 BP 109/65 08/21/22 07:00 Pulse Ox 100 08/21/22 07:00 FiO2 40 08/21/22 08:17 Intake & Output 08/20/22 08/21/22 08/21/22 18:59 06:59 18:59 Intake Total 1250 1290 45 Output Total 1225 925 100 Balance 25 365 -55 Weight 93.5 kg Intake: IV 300 120 10 Dextrose 5% in Water 1, 300 120 10 000 ml @ 100 mls/hr IV . Q10H [facility] Rx#:[id number] Tube Feeding 420 420 35 Other 530 750 Output: Urine 1225 925 100 Other: Voiding Method Indwelling Catheter Indwelling Catheter ABP, PAP, CO, CI - Last Documented Arterial Blood Pressure 155/54 - Labs CBC & Chem 7: 08/21/22 04:28 08/21/22 04:28 Labs: Abnormal Lab Results - Last 24 Hours (Table) 08/20/22 08/20/22 08/20/22 Range/Units 11: 17:53 23:35 RBC (4.30-5.90) m/uL Hgb (13.0-17.5) gm/dL Hct (39.0-53.0) % Lymphocytes # (Manual) (1.0-4.8) k/uL ABG pH (7.35-7.45) ABG pCO2 (35-45) mmHg ABG HCO3 (21-25) mmol/L ABG Total CO2 (19-24) mmol/L ABG O2 Saturation (94-97) % Chloride (98-107) mmol/L BUN (9-20) mg/dL Glucose (74-99) mg/dL POC Glucose (mg/dL) 220 H 152 H 126 H (70-110) mg/dL 08/21/22 08/21/22 08/21/22 Range/Units 04:28 04:28 05:11 RBC 3.30 L (4.30-5.90) m/uL Hgb 10.1 L (13.0-17.5) gm/dL Hct 31.1 L (39.0-53.0) % Lymphocytes # (Manual) 0.82 L (1.0-4.8) k/uL ABG pH (7.35-7.45) ABG pCO2 (35-45) mmHg ABG HCO3 (21-25) mmol/L ABG Total CO2 (19-24) mmol/L ABG O2 Saturation (94-97) % Chloride 110 H (98-107) mmol/L BUN 39 H (9-20) mg/dL Glucose 230 H (74-99) mg/dL POC Glucose (mg/dL) 242 H (70-110) mg/dL 08/21/22 Range/Units 05:15 RBC (4.30-5.90) m/uL Hgb (13.0-17.5) gm/dL Hct (39.0-53.0) % Lymphocytes # (Manual) (1.0-4.8) k/uL ABG pH 7.51 H (7.35-7.45) ABG pCO2 34 L (35-45) mmHg ABG HCO3 27 H (21-25) mmol/L ABG Total CO2 28 H (19-24) mmol/L ABG O2 Saturation 98.6 H (94-97) % Chloride (98-107) mmol/L BUN (9-20) mg/dL Glucose (74-99) mg/dL POC Glucose (mg/dL) (70-110) mg/dL Assessment and Plan Plan: Assessment: 1. acute kidney injury secondary to ATN secondary to acute KS/hypotension. Improving. Creatinine 0.97 today. Nonoliguric. No hydronephrosis noted on kidney ultrasound. Left kidney wasn't properly visualized. 2. Acute inferior wall KS status post cardiac cath with RCA stent. 3. Cardiomyopathy with ejection fraction of 40-45%. 4. Hypernatremia from lack of oral water intake. Improved. 5. Acute hypoxic respiratory failure. 6. CVA. Been followed by neurology. 7. Hypokalemia from poor intake. Being replaced. 8. Diabetes mellitus. Plan: Maintain water flushes to 250 mL every 4 hours with tube feeds. Avoid nephrotoxins. Continue to monitor renal function and urine output. Wean FiO2. Trach and PEG pending. I will sign off. Please call with any questions or concerns.
[2022-08-21] MEDS ORDERED: bisacodyL 10 MG SUPP RECTAL STA (10:00)
--- NOTE | 2022-08-21 10:46 | P.PN ---
Subjective Progress Note Date: 08/21/22 Yesterday patient was off sedation and not following any commands. Today patient is off sedation. He is drowsy. When I asked them understand what I'm saying he nodded his head. Patient also following commands. However not moving the right side of his body. I spoke with the ICU nurse who said that the family agreed for trach and PEG. Objective - Vital Signs Vital signs: Vital Signs Temp 98.9 F 08/21/22 08:00 Pulse 85 08/21/22 10:00 Resp 22 08/21/22 10:00 BP 127/73 08/21/22 10:00 Pulse Ox 97 08/21/22 10:00 FiO2 40 08/21/22 08:17 Intake & Output 08/20/22 08/21/22 08/21/22 18:59 06:59 18:59 Intake Total 1250 1290 425 Output Total 1225 925 350 Balance 25 365 75 Weight 93.5 kg Intake: IV 300 120 30 Dextrose 5% in Water 1, 300 120 30 000 ml @ 100 mls/hr IV . 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 -patient following simple commands, not moving the right side of his body Psych -unable to assess due to altered mental status - Labs CBC & Chem 7: 08/21/22 04:28 08/21/22 04:28 Labs: Abnormal Lab Results - Last 24 Hours (Table) 08/20/22 08/20/22 08/20/22 Range/Units 11:20 17:53 23:35 RBC (4.30-5.90) m/uL Hgb (13.0-17.5) gm/dL Hct (39.0-53.0) % Lymphocytes # (Manual) (1.0-4.8) k/uL ABG pH (7.35-7.45) ABG pCO2 (35-45) mmHg ABG HCO3 (21-25) mmol/L ABG Total CO2 (19-24) mmol/L ABG O2 Saturation (94-97) % Chloride (98-107) mmol/L BUN (9-20) mg/dL Glucose (74-99) mg/dL POC Glucose (mg/dL) 220 H 152 H 126 H (70-110) mg/dL 08/21/22 08/21/22 08/21/22 Range/Units 04:28 04:28 05:11 RBC 3.30 L (4.30-5.90) m/uL Hgb 10.1 L (13.0-17.5) gm/dL Hct 31.1 L (39.0-53.0) % Lymphocytes # (Manual) 0.82 L (1.0-4.8) k/uL ABG pH (7.35-7.45) ABG pCO2 (35-45) mmHg ABG HCO3 (21-25) mmol/L ABG Total CO2 (19-24) mmol/L ABG O2 Saturation (94-97) % Chloride 110 H (98-107) mmol/L BUN 39 H (9-20) mg/dL Glucose 230 H (74-99) mg/dL POC Glucose (mg/dL) 242 H (70-110) mg/dL 08/21/22 Range/Units 05:15 RBC (4.30-5.90) m/uL Hgb (13.0-17.5) gm/dL Hct (39.0-53.0) % Lymphocytes # (Manual) (1.0-4.8) k/uL ABG pH 7.51 H (7.35-7.45) ABG pCO2 34 L (35-45) mmHg ABG HCO3 27 H (21-25) mmol/L ABG Total CO2 28 H (19-24) mmol/L ABG O2 Saturation 98.6 H (94-97) % Chloride (98-107) mmol/L BUN (9-20) mg/dL Glucose (74-99) mg/dL POC Glucose (mg/dL) (70-110) mg/dL Assessment and Plan Assessment: Acute inferior ST segment elevated myocardial infarction Moderate to severe aortic stenosis Severe Pum HTN RVSP 50 Acute systolic heart failure Cardiogenic shock: Resolved and patient now off pressors Ventilator dependent respiratory failure -Cardiology recommendations. Continue with aspirin, Brillenta, Lipitor, metoprolol -Defer diuretics to nephrology and cardiology. Patient currently not on any diuretics -Global Account Manager to manage vent -Plan for PEG and trach early next week Acute encephalopathy likely due to acute CVA versus toxic metabolic encephalopathy Acute CVA Patient off sedation CT head showed acute/subacute stroke Neurology on board Patient on dual antiplatelet therapy as above and also on statin Carotid Dopplers negative for significant stenosis Patient also duration and follows simple commands. However not moving the right side of his body Haemophillus PNA -Resume IV Rocephin - pulm recs RASHMI - nephrology recs - nonobstructing calculi vs angiomyolipoma right upper pole -Resolved. 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 DVT prophylaxis: Subcu heparin Discussed with: nursing Anticipated discharge: Early next week Anticipated discharge place: Anticipate patient be ready for discharge to LTAC after PEG and trach
[2022-08-21 11:17] LABS: Glucose,Whole Blood 227 mg/dL (70-110)
--- NOTE | 2022-08-21 12:11 | P.GSCN ---
History of Present Illness Consult date: 08/21/22 Reason for Consult: Respiratory failure, protein calorie malnutrition History of present illness: This is a 59-year-old male who remains in the ICU on the ventilator. Patient has had respiratory failure and protein calorie malnutrition related to recent cardiac issues and possible stroke. I've asked see him regarding possible tracheostomy tube and PEG tube placement. Past Medical History Past Medical History: Asthma, Diabetes Mellitus, Osteoarthritis (OA) Additional Past Medical History / Comment(s): HX OF BACK SURGERY WITH BACK PAIN, DIABETIC NEUROPATHY, HEART MURMUR., KERATOCONUS., STOOL TEST POSITIVE ., ECZEMA. History of Any Multi-Drug Resistant Organisms: None Reported Past Surgical History: Back Surgery Additional Past Surgical History / Comment(s): BACK SURGERY WITH DISC REMOVED AND FUSION., VASECTOMY, LEFT GREAT TOE. Past Anesthesia/Blood Transfusion Reactions: No Reported Reaction Past Psychological History: No Psychological Hx Reported Past Alcohol Use History: None Reported Past Drug Use History: None Reported - Past Family History Mother Family Medical History: No Reported History Medications and Allergies Home Medications Medication Instructions Recorded Confirmed Type Metoprolol Tartrate [Lopressor] 50 mg PO BID 07/24/18 08/13/22 History amLODIPine [Norvasc] 10 mg PO DAILY 07/24/18 08/13/22 History glipiZIDE [Glucotrol] 5 mg PO AC-BRKFST 07/24/18 08/13/22 History metFORMIN HCL [Glucophage] 500 mg PO BID 07/24/18 08/13/22 History traMADol HCL [Ultram] 50 mg PO QID PRN 07/24/18 08/13/22 History Atorvastatin [Lipitor] 40 mg PO DAILY 08/13/22 08/13/22 History DULoxetine HCL [Cymbalta] 60 mg PO DAILY 08/13/22 08/13/22 History Fenofibrate [Lofibra] 54 mg PO BID 08/13/22 08/13/22 History traZODone HCL 100 mg PO HS 08/13/22 08/13/22 History Allergies Allergy/AdvReac Type Severity Reaction Status Date / Time Penicillins Allergy Unknown Verified 08/13/22 14:15 Surgical - Exam Vital Signs Pulse Resp BP Pulse Ox 75 36 H 121/104 76 L 08/13/22 00:08 08/13/22 00:08 08/13/22 00:08 08/13/22 00:08 - General On ventilator - Cardiovascular Rhythm: regular - Abdomen Abdomen: soft, non tender Results - Labs 08/21/22 04:28 08/21/22 04:28 Abnormal Lab Results - Last 24 Hours (Table) 08/20/22 08/20/22 08/21/22 Range/Units 17:53 23:35 04:28 RBC 3.30 L (4.30-5.90) m/uL Hgb 10.1 L (13.0-17.5) gm/dL Hct 31.1 L (39.0-53.0) % Lymphocytes # (Manual) 0.82 L (1.0-4.8) k/uL ABG pH (7.35-7.45) ABG pCO2 (35-45) mmHg ABG HCO3 (21-25) mmol/L ABG Total CO2 (19-24) mmol/L ABG O2 Saturation (94-97) % Chloride (98-107) mmol/L BUN (9-20) mg/dL Glucose (74-99) mg/dL POC Glucose (mg/dL) 152 H 126 H (70-110) mg/dL 08/21/22 08/21/22 08/21/22 Range/Units 04:28 05:11 05:15 RBC (4.30-5.90) m/uL Hgb (13.0-17.5) gm/dL Hct (39.0-53.0) % Lymphocytes # (Manual) (1.0-4.8) k/uL ABG pH 7.51 H (7.35-7.45) ABG pCO2 34 L (35-45) mmHg ABG HCO3 27 H (21-25) mmol/L ABG Total CO2 28 H (19-24) mmol/L ABG O2 Saturation 98.6 H (94-97) % Chloride 110 H (98-107) mmol/L BUN 39 H (9-20) mg/dL Glucose 230 H (74-99) mg/dL POC Glucose (mg/dL) 242 H (70-110) mg/dL 08/21/22 Range/Units 11:15 RBC (4.30-5.90) m/uL Hgb (13.0-17.5) gm/dL Hct (39.0-53.0) % Lymphocytes # (Manual) (1.0-4.8) k/uL ABG pH (7.35-7.45) ABG pCO2 (35-45) mmHg ABG HCO3 (21-25) mmol/L ABG Total CO2 (19-24) mmol/L ABG O2 Saturation (94-97) % Chloride (98-107) mmol/L BUN (9-20) mg/dL Glucose (74-99) mg/dL POC Glucose (mg/dL) 227 H (70-110) mg/dL Diabetes panel 08/21/22 Range/Units 04:28 Sodium 142 (137-145) mmol/L Potassium 3.6 (3.5-5.1) mmol/L Chloride 110 H (98-107) mmol/L Carbon Dioxide 27 (22-30) mmol/L BUN 39 H (9-20) mg/dL Creatinine 0.97 (0.66-1.25) mg/dL Glucose 230 H (74-99) mg/dL Calcium 8.6 (8.4-10.2) mg/dL Calcium panel 08/21/22 Range/Units 04:28 Calcium 8.6 (8.4-10.2) mg/dL Pituitary panel 08/21/22 Range/Units 04:28 Sodium 142 (137-145) mmol/L Potassium 3.6 (3.5-5.1) mmol/L Chloride 110 H (98-107) mmol/L Carbon Dioxide 27 (22-30) mmol/L BUN 39 H (9-20) mg/dL Creatinine 0.97 (0.66-1.25) mg/dL Glucose 230 H (74-99) mg/dL Calcium 8.6 (8.4-10.2) mg/dL Adrenal panel 08/21/22 Range/Units 04:28 Sodium 142 (137-145) mmol/L Potassium 3.6 (3.5-5.1) mmol/L Chloride 110 H (98-107) mmol/L Carbon Dioxide 27 (22-30) mmol/L BUN 39 H (9-20) mg/dL Creatinine 0.97 (0.66-1.25) mg/dL Glucose 230 H (74-99) mg/dL Calcium 8.6 (8.4-10.2) mg/dL Assessment and Plan Assessment: Protein calorie malnutrition. Performed tracheostomy tube placement PEG tube tomorrow.
--- NOTE | 2022-08-21 12:54 | P.PN ---
Subjective Progress Note Date: 08/21/22 Principal diagnosis: Respiratory failure. This is a 67-year-old white male with history of problems including asthma, diabetes, degenerative joint disease, patient was brought into the ER yesterday with mostly sudden onset of shortness of breath and chest pain. Patient was in extreme respiratory distress upon arrival to the ER, he was placed on BiPAP initially, and he continued to have significant dyspnea. Patient was intubated by the ER physician, workup showed evidence of acute inferior ST elevation myocardial infarction. Patient was seen by cardiology on consultation, and he underwent cardiac catheterization and stenting of the RCA which was totally occluded. In the meantime the patient was noted to have extensive pulmonary edema, acute hypoxic respiratory failure secondary to pulmonary edema, underlying pneumonia is not entirely ruled out but felt to be less likely. Nonetheless the patient will be covered empirically with antibiotics for presumptive aspiration pneumonia since significant airspace disease is noted in the right lung compared to the left lung. I saw this patient this morning, patient is intubated and mechanically ventilated, he is on assist control rate of 20, FiO2 was 100% I cut it down to 80%, he had tidal volume of 500, PEEP was at 14. As soon as I evaluated the patient, clearly the patient was not synchronous with mechanical ventilation, hence I recommended increasing his propofol to 75 mcg/kg/m, patient continued to remain asynchronous with the ventilator, and he seems to be working quite hard at it. Then I recommended sta rting the patient on Nimbex and start a Nimbex drip. ABG done later showed a pO2 of 125 pCO2 51 pH of 7.4, hence I increased the rate from 20-26. Another ABG is pending. Patient is requiring norepinephrine at 0.1 mcg/kg/m, he is also on insulin drip for what seems to be in DKA picture. His IV fluid at 20 mL per hour. Patient is now on Nimbex and on Lasix 40 mg IV push every 8 hours, and I added clindamycin empirically. Patient is ALLERGIC to penicillin. Patient had no good venous access when I arrived to see the patient this morning, hence on emergency basis I established a left femoral triple-lumen catheter, and a left radial arterial line. His echocardiogram showed ejection fraction of 40-45%. Patient is on Aggrastat, and he was on heparin earlier with a PTT over 200. Hence I recommended a groin access rather than having a neck or subclavian access after obtaining the ABG, I cut down his FiO2 down to 65%. Looking at the labs, apparently the patient sustained a acute kidney injury, BUN is 60 creatinine 2.38. His creatinine on admission was 1.97, I believe this is mostly related to hypoperfusion as well as related to his cardiac catheterization/contrast media. Reevaluated today on 08/14/22, patient remains in the ICU, remains intubated and mechanically ventilated. Remains on propofol and Nimbex. His ventilator settings are assist control rate of 26 FiO2 50% and PEEP of 12 and I cut it down to 10 tidal volume of 500. ABG this morning showed a pO2 of 75 pCO2 of 41 pH of 7.39. Hence no change was made except cutting down the PEEP from 12-10. Chest x-ray is showing definite improvement in his pulmonary edema but nonetheless continues to have significant interstitial edema especially in the right lung. His urine output is picking up nicely in spite of the fact that the patient is requiring norepinephrine at 0.1 mcg/kg/m. Patient is on Nimbex at 1 mcg/kg/m, propofol 40 mcg/kg/m, and he is on insulin drip at 4.25 units per hour. After reviewing his chest x-ray and reviewing his ABG, I felt it would be best to keep the patient sedated and paralyzed for now. Not much room to start weaning. His urine output is picking up nicely, and that would be helpful for further weaning as his pulmonary edema starts improving. WBC count today is 12 hemoglobin is 10.6. Blood sugar is 232. PTT is 51.3. And his BUN is 64 creatinine is down to 2.58 from 2.68 yesterday. His troponin yesterday was 3.39 and his BNP level was 11,200 Progress note dated 08/15/2022. This is a 67-year-old male who was admitted on August 13, the diagnoses of ST segment elevation myocardial infarction, diabetic ketoacidosis, and CHF. The patient was intubated on August 13. He went to the catheterization laboratory and had a stent placed in the right coronary artery. He remains on mechanical ventilator. He is currently on by volume assist control, rate 26, tidal volume 500, FiO2 50%, and PEEP of 10. Blood gases show pO2 of 82, pCO2 39, and a pH is 7.42. The patient remains on propofol at 40 mcg/kg/m, insulin at 3.5 units an hour, Nimbex at 2 mcg/kg/m, with [id number] monitoring, saline at 20 mL an hour, and Nepro tube feedings at 10 mL an hour. White count 12.5, hemoglobin 10.2, hematocrit 30.8, and platelet count 292,000. Sodium 141, potassium 4, c hloride 109, CO2 25, BUN 64, creatinine 2.03. Chest x-ray shows persistent right lung infiltrate and/or edema. Chest x-ray is unchanged. Progress note dated 08/16/2022. 67-year-old male seen again in room 264. He was admitted on August 13. The patient came in with a diagnosis of an ST segment elevation myocardial infarction, CHF, and diabetic ketoacidosis. He had a stent placed in his right coronary artery. He was intubated. He remains on the mechanical ventilator. Yesterday, he was on Nimbex, but we've been able to wean that off. Currently, he is on the volume assist control, rate 26, tidal volume 500, FiO2 40%, and PEEP of 10. Blood gases on 50% showed a pO2 134, pCO2 of 38, and a pH is 7.45. The patient remains on propofol at 35 mcg/kg/m, saline at 20 mL an hour, and Nepro tube needs, he is an hour, which is goal. Today, we will do a daily interruption of sedation. His sputum was positive for H. influenzae. Patient remains on Rocephin. White count 11, hemoglobin 9.5, hematocrit 29.1, and platelet count 256,000. Sodium 144, potassium 4, chlorides 110, CO2 26, anion gap 8, BUN 76, creatinine 2.32. Chest x-ray compared to prior x-rays, is improved. Progress note dated 08/17/2022. 67-year-old male seen again in room 264. The patient was admitted on August 13. He came in with a diagnosis of ST segment elevation myocardial infarction, CHF, and diabetic ketoacidosis. He had a stent placed in his right coronary artery. He was intubated, and remains on mechanical ventilator. Currently, settings include the volume assist control, rate 26, tidal volume 500, FiO2 40%, and PEEP of 10. Blood gases show pO2 107, pCO2 39, and a pH is 7.49. The patient's getting Nepro at 21 mL an hour, which is goal. We will add D5W at 100 mL an hour. In addition, for better blood pressure control, the patient will be placed back on amlodipine, and the nurses can use Cleveprex and titrate it. White count 8.6, hemoglobin 10.1, hematocrit 31.6, with a normal platelet count. Sodium 150, potassium 3.7, chlorides 113, CO2 28, BUN 70, creatinine 1.48. The saline IV was discontinued in favor of D5W at 100 mL an hour. The patient's chest x-ray shows similar infiltrates in the perihilar regions. Sputum is showing Haemophilus influenzae from August 13. Progress note dated 08/18/2022. 67-year-old male seen in room 264. The patient had been taken off the sedation, and was nonresponsive. We will order a stat EEG, computed tomography scan, and neurology consultation. The EEG showed diffuse slowing, consistent with toxic/metabolic encephalopathy. The computed tomography scan of the brain showed 2 areas of acute/subacute infarct, involving the right cerebellar area, as well as the left frontoparietal area. The patient is still unresponsive. He remains on the ventilator, with settings of volume assist control, rate 26, tidal volume 500, FiO2 40%, and PEEP of 10. Blood gases show pO2 103, pCO2 36, pH is 7.56. The patient's getting D5W at 100 mL an hour, and Nepro 21 mL an hour. The patient will apparently be made comfort measures by his family either later today or tomorrow. We should also discussed CODE STATUS with the family. 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 This would be a preterminal event. White count 9.3, hemoglobin 10, hematocrit 31.6, platelet count normal. Sodium 149, potassium 3.6, chlorides 113, CO2 31, BUN 63, creatinine 1.39. Sputum from August 13 showed Haemophilus influenzae. Chest x-ray is mostly normal, with some minimal infiltrates or atelectasis. Progress note dated 08/19/2022. 67-year-old male, again seen in room 264. The patient is currently still on the mechanical ventilator, with settings of volume assist control, rate 26, to be dropped down to 20, tidal volume 500, FiO2 40%, and PEEP of 10. Blood gases show a PaO2 101, he CO2 32, and a pH is 7.6. He is getting dextrose at 100 mL an hour, saline at 20 mL an hour, and tube feedings with Nepro at 21 mL an hour, which is on hold. The patient is apparently scheduled for a transesophageal echocardiogram today. His neurologic status apparently has improved somewhat as he is able to open his eyes to verbal commands. White count 10.2, hemoglobin 10.3, hematocrit 32.5, and platelet count 251,000. Sodium 149, potassium 3.4, chlorides 111, CO2 32, BUN 54, and creatinine 1.24. Sputum from August 13, shows Haemophilus influenzae. Progress note dated 08/20/2022. 67-year-old male seen again in room 264. He remains on the mechanical ventilator. He is much less responsive today than yesterday. Currently, he is on volume assist control, rate 20, tidal volume 500, FiO2 40%, and PEEP of 10. Blood gases show pO2 116, pCO2 of 39, and a pH is 7.49. The PEEP was dropped down from 10 down to 5. The patient's getting dextrose at 10 mL an hour, and tube feedings with Nepro at 35 mL an hour, which is goal. The patient would likely be a tracheostomy and PEG tube candidate next week, should he not show any additional neurologic improvement. The nurse will speak to the family about this. White count 9, hemoglobin 10, hematocrit 31.5, and platelet count 273,000. Sodium 143, potassium 3.5, chlorides 110, CO2 28, BUN 49, creatinine 1.05. The chest x-ray shows bibasilar patchy infiltrates. Progress note dated 08/21/2022. 67-year-old male seen again in room 264. The patient remains on mechanical ventilator. The patient appears to have a fluctuating mental status is a bit more responsive today. The family is agreeable to tracheostomy and PEG tube placement. We did do a spontaneous breathing trial today, and the patient did very poorly. We placed him on pressure support of 5 and CPAP of 5. The patient will have a PICC line placed. He currently remains on volume assist control, rate 20, tidal volume 500, FiO2 40%, and PEEP of 5. Blood gases show pO2 of 97, pCO2 34, and a pH is 7.5. He is on saline at KVO, and Nepro at 35 mL an hour, which is goal. The patient is a no code. White count 8.2, hemoglobin 10.1, hematocrit 31.1, and platelet count 275,000. Sodium 142, potassium 3.6, chlorides 110, CO2 27, BUN 39, and creatinine 0.97. Calcium is 8.6. Chest x- ray shows low lung volumes, with some opacity or infiltrate at the left lung base. Objective - Vital Signs Vital signs: Vital Signs Temp 98.9 F 08/21/22 08:00 Pulse 99 08/21/22 11:00 Resp 24 08/21/22 11:00 BP 127/73 08/21/22 10:00 Pulse Ox 98 08/21/22 11:00 FiO2 40 08/21/22 12:00 Intake & Output 08/20/22 08/21/22 08/21/22 18:59 06:59 18:59 Intake Total 1250 1290 495 Output Total 1225 925 575 Balance 25 365 -80 Weight 93.5 kg Intake: IV 300 120 30 Dextrose 5% in Water 1, 300 120 30 000 ml @ 100 mls/hr IV . Q10H [facility] Rx#:[id number] Tube Feeding 420 420 175 Other 530 750 290 Output: Urine 1225 925 575 Other: Voiding Method Indwelling Catheter Indwelling Catheter Indwelling Catheter ABP, PAP, CO, CI - Last Documented Arterial Blood Pressure 190/65 - Exam No acute distress, with an orally placed endotracheal tube and NG tube, and currently not on any sedation. HEENT examination is grossly unremarkable. Neck supple. Full range of motion. No adenopathy thyromegaly or neck vein distention. Cardiovascular examination reveals regular rhythm rate. S1-S2 normal. No S3 or S4. No discernible murmur noted. Heart sounds are distant. Heart rate 99 beats a minute. Lungs reveal scattered bilateral rhonchi. No wheezes. No distinct crackles. Breath sounds equal. Saturation is 98 %. Abdomen soft bowel sounds are heard. No masses or tenderness. Extremities are intact. No cyanosis clubbing or edema. Skin is without rash or lesion. Neurologic examination reveals a patient who does respond to simple commands. - Labs CBC & Chem 7: 08/21/22 04:28 08/21/22 04:28 Labs: Abnormal Lab Results - Last 24 Hours (Table) 08/20/22 08/20/22 08/21/22 Range/Units 17:53 23:35 04:28 RBC 3.30 L (4.30-5.90) m/uL Hgb 10.1 L (13.0-17.5) gm/dL Hct 31.1 L (39.0-53.0) % Lymphocytes # (Manual) 0.82 L (1.0-4.8) k/uL ABG pH (7.35-7.45) ABG pCO2 (35-45) mmHg ABG HCO3 (21-25) mmol/L ABG Total CO2 (19-24) mmol/L ABG O2 Saturation (94-97) % Chloride (98-107) mmol/L BUN (9-20) mg/dL Glucose (74-99) mg/dL POC Glucose (mg/dL) 152 H 126 H (70-110) mg/dL 08/21/22 08/21/22 08/21/22 Range/Units 04:28 05:11 05:15 RBC (4.30-5.90) m/uL Hgb (13.0-17.5) gm/dL Hct (39.0-53.0) % Lymphocytes # (Manual) (1.0-4.8) k/uL ABG pH 7.51 H (7.35-7.45) ABG pCO2 34 L (35-45) mmHg ABG HCO3 27 H (21-25) mmol/L ABG Total CO2 28 H (19-24) mmol/L ABG O2 Saturation 98.6 H (94-97) % Chloride 110 H (98-107) mmol/L BUN 39 H (9-20) mg/dL Glucose 230 H (74-99) mg/dL POC Glucose (mg/dL) 242 H (70-110) mg/dL 08/21/22 Range/Units 11:15 RBC (4.30-5.90) m/uL Hgb (13.0-17.5) gm/dL Hct (39.0-53.0) % Lymphocytes # (Manual) (1.0-4.8) k/uL ABG pH (7.35-7.45) ABG pCO2 (35-45) mmHg ABG HCO3 (21-25) mmol/L ABG Total CO2 (19-24) mmol/L ABG O2 Saturation (94-97) % Chloride (98-107) mmol/L BUN (9-20) mg/dL Glucose (74-99) mg/dL POC Glucose (mg/dL) 227 H (70-110) mg/dL Assessment and Plan Assessment: Acute hypoxemic respiratory failure, secondary to acute systolic CHF, pulmonary edema, ischemic cardiomyopathy, and acute ST segment elevation myocardial infarction. Status post intubation and mechanical ventilation, on 08/13/2022. Status post stent placement, right coronary artery, 08/13/2022. Patient very poorly responsive, computed tomography scan showing right cerebellar subacute/acute infarct as well as left frontoparietal subacute/acute infarct, and EEG showing diffuse slowing, consistent with metabolic/toxic enc ephalopathy. Haemophilus influenzae pneumonia/tracheobronchitis. Acute diabetic ketoacidosis. Acute kidney injury. History of asthma. Degenerative joint disease. Fungal dermatitis, involving the right groin area. Plan: Plan dated 08/15/2022. The patient's insulin drip can be discontinued. The patient's sugar is better control, to gap is closed, and the bicarbonate concentration is in normal range. We'll put the patient on NovoLog sliding scale, every 6 hours. Also, we added updrafts treatments, and we will attempt to get the patient off of Nimbex. Labs, x-rays, and medications are reviewed. We will continue to follow make recommendations along the way. Prognosis is guarded. Plan dated 08/16/2022. The patient is currently on Rocephin, which should cover the H. influenzae in the sputum. We have been able to successfully wean off the Nimbex. Patient remains on the mechanical ventilator. He is getting tube feeds at goal. We will do a daily interruption of sedation today. FiO2 was dropped from 50%, down to 40%. Labs, x-rays, and medications are reviewed. Overall prognosis remains guarded. We will continue to follow the patient make recommendations along the way. Plan dated 08/17/2022. The patient saline IV is discontinued in favor of D5W at 100 mL an hour. In addition, we added amlodipine, and possibly Cleveprex, for better blood pressure control. The patient will have a head CT without contrast, a stat EEG, and a neurology consultation. It's quite concerning that the patient has been off of propofol for some time, and he does not respond. Labs, x-rays, and medications are reviewed. Overall prognosis remains very guarded. Plan dated 08/18/2022. The patient appears to have had significant neurologic insult, based on the computed tomography scan and EEG. We have asked neurology to see the patient. His prognosis is very poor. The family has been notified. 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 Certainly be a preterminal event. Labs, x-rays, medications are reviewed. Unnecessary med ications have been discontinued. We will continue to follow make recommendations along the way. Plan dated 08/19/2022. Neurology plans on doing another EEG on this patient. The patient appears to be improving somewhat, and is able to open his eyes to verbal stimuli. The patient is scheduled to have a transesophageal echocardiogram today. Currently on hold. Labs, x-rays, and medications are reviewed. Overall, the prognosis remains very guarded. We will continue to follow and make recommendations where appropriate. Plan dated 08/20/2022. The patient's overall neurologic status is worse today than it was yesterday. Yesterday, he seemed to be able to open his eyes to verbal stimuli. He's not been on any sedatives. Labs, x-rays, and medications are reviewed. The patient would be a candidate for a tracheostomy and PEG tube, next week, and should he not show any neurologic improvement, and if this family continues to want him to be a full code. Transesophageal echocardiogram shows mild to moderate impaired systolic function, severe aortic stenosis with mild aortic regurgitation, and mild to moderate mitral regurgitation. There is no shunting across the intra- atrial septum. Plan dated 08/21/2022. Family agrees to a tracheostomy and PEG tube. We did a spontaneous breathing trial, and the patient did very poorly, with significant elevations of his blood pressure and heart rate, as well as his respiratory rate, as well as diaphoresis, and appeared uncomfortable on the breathing trial. Labs, x-rays, and medications all reviewed. The patient's overall prognosis remains very poor. He did have a transesophageal echocardiogram which showed mild to moderate impaired systolic function, severe aortic stenosis, mild aortic regurgitation, and mild to moderate mitral regurgitation. Surgery was consulted for the tracheostomy and PEG tube placement. Time with Patient: Greater than 30
--- NOTE | 2022-08-21 13:46 | P.PN ---
Subjective Progress Note Date: 08/21/22 The patient seen at bedside and according to the patient nurse he continues to have some movement over the left side but no movement is over the right side. No change in his neurological examination. The family has decided to pursue with the PEG and trach. Objective - Vital Signs Vital signs: Vital Signs Temp 99.3 F 08/21/22 12:00 Pulse 98 08/21/22 13:00 Resp 24 08/21/22 13:00 BP 106/64 08/21/22 13:00 Pulse Ox 97 08/21/22 13:00 FiO2 40 08/21/22 12:00 Intake & Output 08/20/22 08/21/22 08/21/22 18:59 06:59 18:59 Intake Total 1250 1290 815 Output Total 1225 925 725 Balance 25 365 90 Weight 93.5 kg Intake: IV 300 120 30 Dextrose 5% in Water 1, 300 120 30 000 ml @ 100 mls/hr IV . Q10H [facility] Rx#:[id number] Tube Feeding 420 420 245 Other 530 750 540 Output: Urine 1225 925 725 Other: Voiding Method Indwelling Catheter Indwelling Catheter Indwelling Catheter ABP, PAP, CO, CI - Last Documented Arterial Blood Pressure 173/59 - Exam GENERAL: The patient is lying in bed and does not appear in acute distress. LUNG: Intubated on ventilator. NEUROLOGICAL: Limited because of patient's condition. Higher mental function: Is severely drowsy but following few simple commands. Cranial nerves: He slightly open his eyes to voice. No appreciable facial weakness. Is breathing over the vent. Rest is limited. Motor: The strength is Left upper extremity is 1-2 mostly proximal. Left lower wiggle toes. No movement noted over the right side. Cerebellum: Unable to assess. Sensation: Withdrawal of the right lower to painful stimuli. SOME OF THE WORK-UP DURING THIS HOSPITAL VISIT CONSISTED OF: Lipid panels triglyceride 124, cholesterol 123, LDLs 81 and HDL is a 60 Hemoglobin A1c 9.2. White virus to start nondetected CT head is reported as acute/subacute CVA on the medial aspect of the right cerebellar hemisphere. Additional acute/subacute CVA including the left frontal/parietal lobe deep white matter and right temporal lobe Repeat CT head on 08/18/22: Overall similar examination from the yesterday with acute/subacute CVA in the medial aspect of the right cerebellar hemisphere, left frontal parietal lobe deep white matter and right temporal lobe. No hemorrhagic conversion. Different vascular territories suggest embolic phenomena. Most recent CT head on 08/21/2022: It is reported as similar evolving subacute infarct anterior pole right temporal and medial right cerebellar hemisphere. Either subacute or more chronic infarct left frontal parietal junction superiorly. Background moderate burden of chronic small vessel ischemic disease. No hemorrhagic transformation, midline shift or herniation. Similar mild hydrocephalus. There may be due to central atrophy. Correlate exclude a component of NPH. Possible acute right sided ethmoid sinusitis. 2-D echo from 08/13/2022 revealed mildly increase septal wall thickness. Left ventricular systolic function is decreased at 40-45%. Inferior hypokinesis. Moderate to severe aortic stenosis. EEG was performed, which was abnormal due to background slowing of severe degree. This is suggestive of generalized cerebral dysfunction as can be seen with toxic metabolic encephalopathy or due to diffuse structural brain abnormality. Clinical correlation is recommended. No epileptiform activity was seen. Carotid duplex is reported as there is plaque formation in image and measurements suggest 25% stenosis in both internal carotid arteries. Vertebral artery flow was not demonstrated on this exam. Transesophageal echocardiogram was reported as normal size with mild mildly impaired systolic function with the segmental wall motion abnormality. Ejection fraction of 40-45%. Severe aortic stenosis with mild aortic regurgitation. Mild to moderate mitral regurgitation. No shunting across the intra-atrial septum. Normal appearance of left atrial appendage. - Labs CBC & Chem 7: 08/21/22 04:28 08/21/22 04:28 Labs: Abnormal Lab Results - Last 24 Hours (Table) 08/20/22 08/20/22 08/21/22 Range/Units 17:53 23:35 04:28 RBC 3.30 L (4.30-5.90) m/uL Hgb 10.1 L (13.0-17.5) gm/dL Hct 31.1 L (39.0-53.0) % Lymphocytes # (Manual) 0.82 L (1.0-4.8) k/uL ABG pH (7.35-7.45) ABG pCO2 (35-45) mmHg ABG HCO3 (21-25) mmol/L ABG Total CO2 (19-24) mmol/L ABG O2 Saturation (94-97) % Chloride (98-107) mmol/L BUN (9-20) mg/dL Glucose (74-99) mg/dL POC Glucose (mg/dL) 152 H 126 H (70-110) mg/dL 08/21/22 08/21/22 08/21/22 Range/Units 04:28 05:11 05:15 RBC (4.30-5.90) m/uL Hgb (13.0-17.5) gm/dL Hct (39.0-53.0) % Lymphocytes # (Manual) (1.0-4.8) k/uL ABG pH 7.51 H (7.35-7.45) ABG pCO2 34 L (35-45) mmHg ABG HCO3 27 H (21-25) mmol/L ABG Total CO2 28 H (19-24) mmol/L ABG O2 Saturation 98.6 H (94-97) % Chloride 110 H (98-107) mmol/L BUN 39 H (9-20) mg/dL Glucose 230 H (74-99) mg/dL POC Glucose (mg/dL) 242 H (70-110) mg/dL 08/21/22 Range/Units 11:15 RBC (4.30-5.90) m/uL Hgb (13.0-17.5) gm/dL Hct (39.0-53.0) % Lymphocytes # (Manual) (1.0-4.8) k/uL ABG pH (7.35-7.45) ABG pCO2 (35-45) mmHg ABG HCO3 (21-25) mmol/L ABG Total CO2 (19-24) mmol/L ABG O2 Saturation (94-97) % Chloride (98-107) mmol/L BUN (9-20) mg/dL Glucose (74-99) mg/dL POC Glucose (mg/dL) 227 H (70-110) mg/dL Assessment and Plan Assessment: * Acute to subacute ischemic stroke at different territories which is suggestive of embolic/cardioembolic (CT medial aspect of the right cerebellar hemisphere, left frontal/parietal lobe deep white matter and right temporal lobe). LUCA is negative for thrombus or shunting. * Right hemiplegic and significant left hemiparesis due to stroke * Altered mental status due to multifactorial: Due to acute stroke, toxic- metabolic encephalopathy and medication effect (Dilaudid). No seizure on EEG. * Acute hypoxic respiratory failure on mechanical ventilation * Acute systolic CHF, pulmonary edema, ischemic cardiomyopathy, acute STEMI * Status post cardiac stent placement RCA 08/13/2022 * Diabetic ketoacidosis * Acute renal failure that is trending down * History of asthma * Anemia Plan: Patient currently on aspirin 81 mg daily and Brilinta 90 mg twice a day. Continue Lipitor 40 mg daily at bedtime for secondary stroke prophylaxis. LDL goal is less than 70 for stroke Family will like to pursue with PEG and Trach. Hemoglobin A1c 9.2. Recommend optimize control of diabetes. Telemetry monitoring rule out paroxysmal atrial fibrillation: So far no a- fib/flutter reported. Carotid duplex is reported as there is plaque formation in image and measurements suggest 25% stenosis in both internal carotid arteries. Vertebral artery flow was not demonstrated on this exam. I would recommend that a CT angiography of the neck for better evaluation of the vertebral arteries once the kidney function has normalized. Recommend avoiding Dilaudid as much as possible as well as holding off any sedation for better neurological examination Cardiology team is on board Continue neuro checks On cardiac monitoring PT OT and TUMBLER MACHINE OPERATOR HELPER are consulted Nephrology team is on board We'll defer the rest of the medical management to the primary and ICU team. For DVT prophylaxis: On subq heparin 5000U every 8 hours. Prognosis is very guarded and quality of lift appears poor. From the perspective the patient has bilateral hemispheric stroke and likely will continues to have residual deficits and be dependent for his ADLs. Family will like to proceed with PEG and Trach. Time with Patient: Less than 30
[2022-08-21 18:06] LABS: Glucose,Whole Blood 221 mg/dL (70-110)
[2022-08-21] MEDS: ATORVASTATIN 40 MG TAB PO SCH (21:35)
[2022-08-21 23:53] LABS: Glucose,Whole Blood 167 mg/dL (70-110)
--- NOTE | 2022-08-22 00:46 | PN ---
PROGRESS NOTE SUBJECTIVE: The patient remains intubated on vent. No significant change in his condition. Remains in sinus rhythm, hemodynamically stable. MEDICATIONS: Currently on, 1. Norvasc 10 daily. 2. Aspirin. 3. Lipitor. 4. Apresoline. 5. Lopressor. OBJECTIVE: VITAL SIGNS: Stable. CHEST: Reveals good air entry bilaterally. HEART: Reveals first and second heart sounds. Regular rhythm and a systolic murmur at the apex. ABDOMEN: Soft. EXTREMITIES: Did not reveal any edema. Peripheral pulses are palpable. LABORATORY DATA: Lab show that the hemoglobin is 10.1, potassium is 3.6, creatinine is 0.97. The patient had a LUCA that did not reveal any cardiac source of thromboembolic phenomenon. He has aortic stenosis. ASSESSMENT: 1. Cerebrovascular accident. 2. Aortic stenosis. PLAN: Continue current measures. RONAL / DENISHA: [id number] /
[2022-08-22] MEDS: INSULIN ASPART (NovoLOG) 100 UNIT/ML VIAL SQ SCH ×10 (01:00→23:52)
[2022-08-22] MEDS: ARTIFICIAL TEARS-HYPROMELLOSE DROPS 15 ML BTL BOTH EYES SCH ×7 (01:00→23:52)
[2022-08-22] MEDS: HEPARIN SODIUM,PORCINE/PF 5,000 UNIT/0.5 ML SYRINGE SQ SCH ×4 (01:00→23:59)
[2022-08-22 01:37] LABS: Glucose,Whole Blood 196 mg/dL (70-110)
--- NOTE | 2022-08-22 01:37 | PN ---
PROGRESS NOTE SUBJECTIVE: A 67-year-old gentleman, who is admitted to hospital with CVA and has respiratory failure, intubated on vent, had a transesophageal echo that did not reveal any cardiac source of thromboembolic phenomenon, but revealed [id number] aortic stenosis. OBJECTIVE: GENERAL: On exam, he remains in sinus rhythm, intubated on vent, stable hemodynamically. CHEST: Reveals diminished air entry bilaterally. HEART: Reveals first and second heart sounds. An ejection systolic murmur in the aortic area. ABDOMEN: Soft. EXTREMITIES: Did not reveal any edema. ASSESSMENT: 1. Cerebrovascular accident. 2. Aortic stenosis. PLAN: The patient will continue current supportive care. MMODL / DAINN: [id number] /
[2022-08-22] MEDS: HYDROmorphone 0.5 MG/0.5 ML SYRINGE IVP PRN ×3 (03:08→23:08)
[2022-08-22 03:26] LABS: African American GFR (CKD) >90 (>60 ml/min/1.73 sqM); Anion Gap 6 mmol/L; Blood Urea Nitrogen 35 mg/dL (9-20); Calcium 8.9 mg/dL (8.4-10.2); Carbon Dioxide 27 mmol/L (22-30); Chloride 111 mmol/L (98-107); Glucose 193 mg/dL (74-99); Magnesium 2.2 mg/dL (1.6-2.3); Non-African American GFR(CKD) 89 (>60 ml/min/1.73 sqM); Potassium 3.6 mmol/L (3.5-5.1); Sodium 144 mmol/L (137-145)
[2022-08-22 03:27] LABS: Basophils % (A) 0 %; Eosinophils # (A) 0.3 k/uL (0-0.7); Eosinophils % (A) 3 %; HCT 33.4 % (39.0-53.0); HGB 10.8 gm/dL (13.0-17.5); Hypochromasia Moderate; Lymphocytes # (A) 0.9 k/uL (1.0-4.8); Lymphocytes % (A) 7 %; MCH 30.4 pg (25.0-35.0); MCHC 32.4 g/dL (31.0-37.0); MCV 93.9 fL (80.0-100.0); Mean Platelet Volume 9.4; Monocytes # (A) 0.5 k/uL (0-1.0); Monocytes % (A) 4 %; Neutrophils # (A) 9.6 k/uL (1.3-7.7); Neutrophils % (A) 84 %; Platelet Count 371 k/uL (150-450); Poikilocytosis Slight; RBC 3.56 m/uL (4.30-5.90); RDW 13.8 % (11.5-15.5); WBC 11.4 k/uL (3.8-10.6)
[2022-08-22] MEDS: POTASSIUM CHLORIDE 10 MEQ in WATER FOR INJECTION 1 100ML.BAG IVPB SCH ×2 (04:59→06:03)
[2022-08-22] MEDS ORDERED: POTASSIUM BICARBONATE/CIT AC 20 MEQ TABLET.EFF NG-TUBE SCH (05:00)
[2022-08-22 05:16] LABS: Glucose,Whole Blood 171 mg/dL (70-110)
[2022-08-22 05:48] LABS: ABG Base Excess 5.1 mmol/L; ABG HCO3 28 mmol/L (21-25); ABG Oxygen Saturation 97.9 % (94-97); ABG PCO2 35 mmHg (35-45); ABG PH 7.51 (7.35-7.45); ABG PO2 87 mmHg (83-108); ABG TCO2 29 mmol/L (19-24); Allen Test Performed? Yes
[2022-08-22] MEDS: INSULIN DETEMIR (LEVEMIR) 100 UNIT/ML SYR SQ SCH (06:09)
--- NOTE | 2022-08-22 07:27 | XR ---
EXAMINATION TYPE: XR chest 1V portable DATE OF EXAM: 08/22/2022 COMPARISON: 08/21/2022 HISTORY: SOB, Follow Up FINDINGS: Indwelling tubes and catheters are unchanged. No change in bibasilar opacities. Stable appearance of the cardio-mediastinal structures at this time. IMPRESSION: 1. Stable portable chest. Clinical correlation and follow up until resolution is recommended.
--- NOTE | 2022-08-22 07:45 | PN ---
PROGRESS NOTE HISTORY OF PRESENT ILLNESS: A 67-year-old gentleman who is admitted to hospital with a thromboembolic CVA and underwent a transesophageal echo that did not show any cardiac source for thromboembolic phenomenon. He remains intubated on vent, sedated, and very poorly responsive. PHYSICAL EXAMINATION: GENERAL: He remains in sinus rhythm, hemodynamically stable. CHEST: Reveals diminished air entry at the bases. HEART: Reveals first and second heart sounds. No gallop. ABDOMEN: Soft. EXTREMITIES: Did not reveal any edema. Pulses are palpable. LABORATORY DATA: Labs show a hemoglobin of 10, platelet count is 270, potassium 3.5, creatinine is 1. ASSESSMENT AND PLAN: Cerebrovascular accident with vent-requiring respiratory failure, status post transesophageal echocardiogram. No cardiac source or thromboembolic phenomenon. Continue current medical therapy. MMODL / IJN: [id number] /
[2022-08-22] MEDS: ASPIRIN 81 MG PO SCH (08:34)
[2022-08-22] MEDS: TICAGRELOR 90 MG TAB PO SCH ×2 (08:34→20:53)
[2022-08-22] MEDS: METOPROLOL TARTRATE 25 MG TAB PO SCH ×3 (08:39→21:10)
[2022-08-22] MEDS: CHLORHEXIDINE GLUCONATE 15 ML CUP MUCOUS MEM SCH ×2 (08:39→20:59)
[2022-08-22] MEDS: PANTOPRAZOLE 40 MG/10 ML VIAL IVP SCH (08:39)
[2022-08-22] MEDS: hydrALAZINE HCL 25 MG TAB PO SCH ×2 (08:39→23:08)
[2022-08-22] MEDS: amLODIPine 10 MG TAB PO SCH (08:39)
--- NOTE | 2022-08-22 08:59 | P.PN ---
Subjective Progress Note Date: 08/22/22 The patient is a 67-year-old male who is currently admitted to the hospital with an inferior ST elevated myocardial infarction. He underwent stenting of the RCA, which had heavy thrombus burden. Postoperative complications include right cerebellar CVA. The patient is currently intubated in the ICU and will be undergoing tracheostomy and PEG tube placement. The patient responds to verbal stimuli and touch. GENERAL: Ill-appearing, well-nourished and in no acute distress. NECK: Supple without JVD or thyromegaly. LUNGS: Breath sounds diminished to auscultation bilaterally. Respiration equal and unlabored. No wheezes, rales or rhonchi. HEART: Regular rate and rhythm. Systolic ejection murmur. No rubs or gallops. S1 and S2 heard. EXTREMITIES: Normal range of motion, no edema. No clubbing or cyanosis. Peripheral pulses intact and strong. VITALS: Blood pressure 133/84, temp 98.9F, pulse 76, SpO2 100% on 30% FiO2 TELEMETRY: Sinus rhythm overnight. No arrhythmias LABS: WBC 11.4, hemoglobin 10.8, hematocrit 33.4, platelet 371, sodium 144, potassium 3.6, BUN 35, creatinine 0.86, magnesium 2.2 IMPRESSION: Inferior myocardial infarction, status post stenting of the RCA Ischemic cardiomyopathy, EF 40-45% with inferior hypokinesis Moderate to severe aortic stenosis Acute CVA, right cerebellum Hypoxic respiratory failure, currently ventilated PLAN: Continue supportive care Further recommendations to be based upon clinical course I am dictating on behalf of Dr Luis E Lundy's history/physical and assessment/plan. Objective - Vital Signs Vital signs: Vital Signs Temp 98.3 F 08/22/22 04:00 Pulse 79 08/22/22 07:00 Resp 20 08/22/22 07:00 BP 113/63 08/22/22 07:00 Pulse Ox 100 08/22/22 07:00 FiO2 30 08/22/22 07:30 Intake & Output 08/21/22 08/22/22 08/22/22 18:59 06:59 18:59 Intake Total 1240 425 Output Total 1225 1125 75 Balance 15 -700 -75 Weight 94.3 kg Intake: IV 30 Dextrose 5% in Water 1, 30 000 ml @ 100 mls/hr IV . Q10H [facility] Rx#:[id number] Tube Feeding 420 175 Other 790 250 Output: Urine 1225 1125 75 Other: Voiding Method Indwelling Catheter Indwelling Catheter # Bowel Movements 1 ABP, PAP, CO, CI - Last Documented Arterial Blood Pressure 153/66 - Labs CBC & Chem 7: 08/22/22 03:03 08/22/22 03:03 Labs: Abnormal Lab Results - Last 24 Hours (Table) 08/21/22 08/21/22 08/21/22 Range/Units 11:15 17:55 23:51 WBC (3.8-10.6) k/uL RBC (4.30-5.90) m/uL Hgb (13.0-17.5) gm/dL Hct (39.0-53.0) % Neutrophils # (1.3-7.7) k/uL Lymphocytes # (1.0-4.8) k/uL ABG pH (7.35-7.45) ABG HCO3 (21-25) mmol/L ABG Total CO2 (19-24) mmol/L ABG O2 Saturation (94-97) % Chloride (98-107) mmol/L BUN (9-20) mg/dL Glucose (74-99) mg/dL POC Glucose (mg/dL) 227 H 221 H 167 H (70-110) mg/dL 08/22/22 08/22/22 08/22/22 Range/Units 01:35 03:03 03:03 WBC 11.4 H (3.8-10.6) k/uL RBC 3.56 L (4.30-5.90) m/uL Hgb 10.8 L (13.0-17.5) gm/dL Hct 33.4 L (39.0-53.0) % Neutrophils # 9.6 H (1.3-7.7) k/uL Lymphocytes # 0.9 L (1.0-4.8) k/uL ABG pH (7.35-7.45) ABG HCO3 (21-25) mmol/L ABG Total CO2 (19-24) mmol/L ABG O2 Saturation (94-97) % Chloride 111 H (98-107) mmol/L BUN 35 H (9-20) mg/dL Glucose 193 H (74-99) mg/dL POC Glucose (mg/dL) 196 H (70-110) mg/dL 08/22/22 08/22/22 Range/Units 05:14 05:45 WBC (3.8-10.6) k/uL RBC (4.30-5.90) m/uL Hgb (13.0-17.5) gm/dL Hct (39.0-53.0) % Neutrophils # (1.3-7.7) k/uL Lymphocytes # (1.0-4.8) k/uL ABG pH 7.51 H (7.35-7.45) ABG HCO3 28 H (21-25) mmol/L ABG Total CO2 29 H (19-24) mmol/L ABG O2 Saturation 97.9 H (94-97) % Chloride (98-107) mmol/L BUN (9-20) mg/dL Glucose (74-99) mg/dL POC Glucose (mg/dL) 171 H (70-110) mg/dL
--- NOTE | 2022-08-22 09:12 | P.PN ---
Subjective Progress Note Date: 08/22/22 Patient following commands. Failed SBT. Pending trach/peg. General: intubated, sedated HEENT: normocephalic, atraumatic, no tracheal deviation Respiratory: symmetric chest rise, no cyanosis, ventilator dependent CVS: perfusing all extremities, no distal gangrene, no pitting edema GI: soft, ND : no SPT, no CVAT, gr is present Neuro: sedated Assessment/plan: Acute inferior ST segment elevated myocardial infarction Moderate to severe aortic stenosis Severe Pum HTN RVSP 50 Acute systolic heart failure Cardiogenic shock: Resolved and patient now off pressors Ventilator dependent respiratory failure -Cardiology recommendations. Continue with aspirin, Brillenta, Lipitor, metoprolol -Defer diuretics to nephrology and cardiology. Patient currently not on any diuretics -Windows Desktop Support to manage vent -Plan for PEG and trach early next week Acute encephalopathy likely due to acute CVA versus toxic metabolic encephalopathy Acute CVA Patient off sedation CT head showed acute/subacute stroke Neurology on board Patient on dual antiplatelet therapy as above and also on statin Carotid Dopplers negative for significant stenosis Patient also duration and follows simple commands. However not moving the right side of his body Haemophillus PNA -Resume IV Rocephin - pulm recs RASHMI - nephrology recs - nonobstructing calculi vs angiomyolipoma right upper pole -Resolved. 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 DVT prophylaxis: Subcu heparin Discussed with: nursing Anticipated discharge: Early next week Anticipated discharge place: Anticipate patient be ready for discharge to LTAC after PEG and trach Objective - Vital Signs Vital signs: Vital Signs Temp 98.9 F 08/22/22 08:00 Pulse 75 08/22/22 09:00 Resp 20 08/22/22 09:00 BP 109/65 08/22/22 09:00 Pulse Ox 97 08/22/22 09:00 FiO2 30 08/22/22 08:00 Intake & Output 08/21/22 08/22/22 08/22/22 18:59 06:59 18:59 Intake Total 1240 425 20 Output Total 1225 1125 235 Balance 15 -700 -215 Weight 94.3 kg Intake: IV 30 Dextrose 5% in Water 1, 30 000 ml @ 100 mls/hr IV . Q10H [facility] Rx#:[id number] Tube Feeding 420 175 Other 790 250 20 Output: Urine 1225 1125 235 Other: Voiding Method Indwelling Catheter Indwelling Catheter Indwelling Catheter # Bowel Movements 1 ABP, PAP, CO, CI - Last Documented Arterial Blood Pressure 117/52 - Labs CBC & Chem 7: 08/22/22 03:03 08/22/22 03:03 Labs: Abnormal Lab Results - Last 24 Hours (Table) 08/21/22 08/21/22 08/21/22 Range/Units 11:15 17:55 23:51 WBC (3.8-10.6) k/uL RBC (4.30-5.90) m/uL Hgb (13.0-17.5) gm/dL Hct (39.0-53.0) % Neutrophils # (1.3-7.7) k/uL Lymphocytes # (1.0-4.8) k/uL ABG pH (7.35-7.45) ABG HCO3 (21-25) mmol/L ABG Total CO2 (19-24) mmol/L ABG O2 Saturation (94-97) % Chloride (98-107) mmol/L BUN (9-20) mg/dL Glucose (74-99) mg/dL POC Glucose (mg/dL) 227 H 221 H 167 H (70-110) mg/dL 08/22/22 08/22/22 08/22/22 Range/Units 01:35 03:03 03:03 WBC 11.4 H (3.8-10.6) k/uL RBC 3.56 L (4.30-5.90) m/uL Hgb 10.8 L (13.0-17.5) gm/dL Hct 33.4 L (39.0-53.0) % Neutrophils # 9.6 H (1.3-7.7) k/uL Lymphocytes # 0.9 L (1.0-4.8) k/uL ABG pH (7.35-7.45) ABG HCO3 (21-25) mmol/L ABG Total CO2 (19-24) mmol/L ABG O2 Saturation (94-97) % Chloride 111 H (98-107) mmol/L BUN 35 H (9-20) mg/dL Glucose 193 H (74-99) mg/dL POC Glucose (mg/dL) 196 H (70-110) mg/dL 08/22/22 08/22/22 Range/Units 05:14 05:45 WBC (3.8-10.6) k/uL RBC (4.30-5.90) m/uL Hgb (13.0-17.5) gm/dL Hct (39.0-53.0) % Neutrophils # (1.3-7.7) k/uL Lymphocytes # (1.0-4.8) k/uL ABG pH 7.51 H (7.35-7.45) ABG HCO3 28 H (21-25) mmol/L ABG Total CO2 29 H (19-24) mmol/L ABG O2 Saturation 97.9 H (94-97) % Chloride (98-107) mmol/L BUN (9-20) mg/dL Glucose (74-99) mg/dL POC Glucose (mg/dL) 171 H (70-110) mg/dL
--- NOTE | 2022-08-22 10:30 | CT ---
EXAMINATION TYPE: CT angio head neck CT DLP: 1941.6 mGycm, Automated exposure control for dose reduction was used. DATE OF EXAM: 08/22/2022 9:50 AM COMPARISON: CT brain 08/20/2022. CLINICAL INDICATION:Male, 67 years old with history of stroke; , h/o stroke, weakness TECHNIQUE: Axially acquired helical CT angiogram of the head and neck was obtained with contrast. Axi al images are supplemented with 3D reconstructions which [facility] NASCET criteria used. Contrast used:65 mL of Isovue 370 with IV Contrast, Oral contrast used: None. FINDINGS: CTA HEAD: No evidence of acute intracranial hemorrhage, mass effect, or midline shift. The ventricles, sulci, a nd cisterns are unremarkable. The visualized portions of the internal carotid arteries, middle cerebral arteries, anterior cerebral arteries, and posterior cerebral arteries are patent. Mild calcified plaque in the cavernous portion of the internal carotid arteries bilaterally. The basilar and vertebral arteries are patent. CTA NECK: Right Carotid System: The common carotid artery and external carotid artery are patent. The carotid bifurcation demonstrate s no evidence of hemodynamically significant stenosis. Minimal calcified and noncalcified plaque at t he bifurcation. The remaining portions of the internal carotid artery demonstrate normal size without significant narrowing. Left Carotid System: The common carotid artery and external carotid artery are patent. Predominantly calcified plaque at t he bifurcation with at least 50% stenosis. The remaining portions of the internal carotid artery demo nstrate normal size without significant narrowing. Vertebral arteries are patent. Atherosclerosis at the origin of the right vertebral artery which is f elt to narrow its origin. Beam hardening artifact limits evaluation. There is a two-vessel aortic arch. The origins of the great vessels are patent. No evidence of hemody namically significant stenosis. Posterior right upper lobe consolidation changes with air bronchograms. Endotracheal tube with distal tip above the patrick. Nasogastric tube visualized. Atherosclerosis of the coronary arteries partiall y visualized. There is calcifications of the cartilage of the ureters bilaterally. Multiple enlarged left-sided lymph nodes measuring up to 18 mm in short axis are seen in the left nec k. IMPRESSION: 1. No evidence of dissection of the cervical internal carotid arteries or vertebral arteries. No evid ence of intracranial high-grade stenosis or intracranial aneurysm. 2. At least 50% stenosis at the left carotid bifurcation secondary to calcified plaque. No evidence o f hemodynamically significant stenosis of the right carotid bifurcation. 3. Right vertebral artery origin stenosis which is suboptimally evaluated given beam hardening artifa ct from the patient's shoulders. 4. Multiple left-sided enlarged lymph nodes further evaluation and workup is recommended. Findings co ncerning for neoplastic process until proven otherwise. 5. Right upper lobe atelectasis versus developing airspace disease. Clinical correlation advised.
[2022-08-22 11:39] LABS: HCT 30.6 % (39.0-53.0); HGB 9.8 gm/dL (13.0-17.5); Hypochromasia Moderate; MCHC 32.1 g/dL (31.0-37.0); MCV 93.3 fL (80.0-100.0); Mean Platelet Volume 9.5; Platelet Count 395 k/uL (150-450); Poikilocytosis Slight; RBC 3.28 m/uL (4.30-5.90); RDW 13.8 % (11.5-15.5); WBC 10.6 k/uL (3.8-10.6)
[2022-08-22] MEDS ORDERED: LIDOCAINE 1% INJ 10MG/ML (30 ML VIAL-PF) SQ ONE (12:02)
--- NOTE | 2022-08-22 12:08 | P.PN ---
Subjective Progress Note Date: 08/22/22 On 08/22/2022, seeing this patient for a follow-up following his cardiac arrest. The patient remains intubated on a mechanical ventilator and the patient remains in the intensive care unit. In summary, presented with an acute respiratory failure requiring intubation mechanical ventilation. He was in acute pulmonary edema and he suffered from an acute ST segment elevation myocardial infarction and the patient underwent coronary intervention and he was found to have CAD with 100% RCA, 10-30% LAD and the patient underwent a mid RCA and insertion. The patient was also found to have moderate to severe aortic valve stenosis with a peak gradient of 60 mmHg. The echocardiogram that was done showed estimated ejection fraction of 40-45% and the patient had moderate to severe aortic valve stenosis. The patient also had an acute/subacute stroke, ischemic stroke at different territory although the possibility of an embolic/cardioembolic phenomena cannot be completely excluded. LUCA was negative for any thrombus or shunting. The patient's neurologic exam was consistent with a right hemiplegic weakness due to a left sided CVA. The patient currently is intubated on a mechanical ventilator. This morning, he is on assist-control mode at a rate of 20 with a tidal volume of 500 and FiO2 of 30% with a PEEP of 5. He came to find other the patient is off sedation for at least the past 5 days. He opens up his eyes. Quite tachypneic ventilator. He is not following commands consistently. He had right-sided weakness/hemiplegia. He was not ready for extubation. Based on that, it was made the decision to go ahead and proceed with a tracheostomy tube insertion of PEG tube insertion after having discussions with the family. The patient also having 51 today. On today's evaluation, the blood gas showed a pH of 7.51 with a pCO2 of 35 and pO2 of 87. The patient had a chest x-ray on 08/18/2022 and no chest x-rays since. The most recent chest x-ray showed some chronic interstitial changes bilaterally. Nevertheless, the patient has been asked oxygenating well. His current cardiac rhythm is sinus. His white suppositive 10.6 with a hemoglobin of 9.8. Electrolytes are normal. No renal dysfunction. Sodium is at 144 with a BUN of 35 and a creatinine of 0.8. Coagulation profile has not been checked recently. He is on a combination of aspirin and Brilinta. The patient is also on a sliding scale insulin coverage. His tube feeds on hold awaiting PEG tube insertion. In terms of his cardiac medication, other than the lower antiplatelet agent therapy, the patient is on metoprolol 25 mg by mouth 3 times a day and is also on Norvasc 10 mg by mouth daily for blood pressure control. Hydralazine is also on board at a dose of 25 mg by mouth twice a day. The patient is afebrile. No diarrhea. IV fluids are at KVO. A repeat CT angiogram was done today and the patient has no evidence of any dissection and the cervical internal carotid arteries or the vertebral arteries. Is at least 50% stenosis in the left carotid artery bifurcation secondary to calcified plaque. No evidence of any hemodynamically significant stenosis. Right vertebral artery origin had a stenosis which is suboptimally evaluated given the been hardening artifact. Multiple left-sided enlarged lymph nodes in the neck and the largest lymph node was measuring about 18 mm in size. and some atelectatic changes in the right lung and airspace disease. Objective - Vital Signs Vital signs: Vital Signs Temp 98.9 F 08/22/22 08:00 Pulse 75 08/22/22 10:00 Resp 23 08/22/22 10:00 BP 109/65 08/22/22 10:00 Pulse Ox 98 08/22/22 10:00 FiO2 30 08/22/22 11:09 Intake & Output 08/21/22 08/22/22 08/22/22 18:59 06:59 18:59 Intake Total 1240 425 20 Output Total 1225 1125 235 Balance 15 -700 -215 Weight 94.3 kg 94.3 kg Intake: IV 30 Dextrose 5% in Water 1, 30 000 ml @ 100 mls/hr IV . Q10H [facility] Rx#:[id number] Tube Feeding 420 175 Other 790 250 20 Output: Urine 1225 1125 235 Other: Voiding Method Indwelling Catheter Indwelling Catheter Indwelling Catheter # Bowel Movements 1 ABP, PAP, CO, CI - Last Documented Arterial Blood Pressure 145/62 - Exam No acute distress, with an orally placed endotracheal tube and NG tube, and currently not on any sedation. Patient is arousable. He does follow commands especially on the left side with is able to move his left upper and left lower extremity. He has hemiplegia on the right. Orogastric and orotracheal tube are both in place. Head exam was generally normal. There was no scleral icterus or corneal arcus. Mucous membranes were moist. HEENT examination is grossly unremarkable. Neck supple. Full range of motion. No adenopathy thyromegaly or neck vein distention. Cardiovascular examination reveals regular rhythm rate. S1-S2 normal. No S3 or S4. . Heart sounds are distant. Heart rate 99 beats a minute. The patient has a very harsh systolic ejection murmur grade 4/6 mainly in the left apex Lungs reveal scattered bilateral rhonchi. No wheezes. No distinct crackles. Breath sounds equal. Abdomen soft bowel sounds are heard. No masses or tenderness. Extremities are intact. No cyanosis clubbing or edema. Skin is without rash or lesion. Neurologic examination reveals a patient who does respond to simple commands. The patient has a preferential gaze to the right. Pupils are equal and reactive to light. No significant facial asymmetry. He is a spine to simple commands by moving his left side. Right side is quite hemiplegic at this point in time. Positive cough. Positive gag. - Labs CBC & Chem 7: 08/22/22 11:30 08/22/22 03:03 Labs: Abnormal Lab Results - Last 24 Hours (Table) 08/21/22 08/21/22 08/22/22 Range/Units 17:55 23:51 01:35 WBC (3.8-10.6) k/uL RBC (4.30-5.90) m/uL Hgb (13.0-17.5) gm/dL Hct (39.0-53.0) % Neutrophils # (1.3-7.7) k/uL Lymphocytes # (1.0-4.8) k/uL ABG pH (7.35-7.45) ABG HCO3 (21-25) mmol/L ABG Total CO2 (19-24) mmol/L ABG O2 Saturation (94-97) % Chloride (98-107) mmol/L BUN (9-20) mg/dL Glucose (74-99) mg/dL POC Glucose (mg/dL) 221 H 167 H 196 H (70-110) mg/dL 08/22/22 08/22/22 08/22/22 Range/Units 03:03 03:03 05:14 WBC 11.4 H (3.8-10.6) k/uL RBC 3.56 L (4.30-5.90) m/uL Hgb 10.8 L (13.0-17.5) gm/dL Hct 33.4 L (39.0-53.0) % Neutrophils # 9.6 H (1.3-7.7) k/uL Lymphocytes # 0.9 L (1.0-4.8) k/uL ABG pH (7.35-7.45) ABG HCO3 (21-25) mmol/L ABG Total CO2 (19-24) mmol/L ABG O2 Saturation (94-97) % Chloride 111 H (98-107) mmol/L BUN 35 H (9-20) mg/dL Glucose 193 H (74-99) mg/dL POC Glucose (mg/dL) 171 H (70-110) mg/dL 08/22/22 08/22/22 Range/Units 05:45 11:30 WBC (3.8-10.6) k/uL RBC 3.28 L (4.30-5.90) m/uL Hgb 9.8 L (13.0-17.5) gm/dL Hct 30.6 L (39.0-53.0) % Neutrophils # (1.3-7.7) k/uL Lymphocytes # (1.0-4.8) k/uL ABG pH 7.51 H (7.35-7.45) ABG HCO3 28 H (21-25) mmol/L ABG Total CO2 29 H (19-24) mmol/L ABG O2 Saturation 97.9 H (94-97) % Chloride (98-107) mmol/L BUN (9-20) mg/dL Glucose (74-99) mg/dL POC Glucose (mg/dL) (70-110) mg/dL Assessment and Plan Plan: Acute hypoxemic respiratory failure, secondary to acute systolic CHF, pulmonary edema, ischemic cardiomyopathy, and acute ST segment elevation myocardial infarction. The patient is post cardiac catheterization and stenting to the RCA. Moderate to Severe aortic stenosis, LV function is preserved, LV function is in order of 40-45%. LUCA was done and there is no evidence of any cardiac thrombus. Status post intubation and mechanical ventilation, on 08/13/2022. Status post stent placement, right coronary artery, 08/13/2022. Acute CVA with right-sided hemiplegia. Patient very poorly responsive and the patient is currently off sedation, computed tomography scan showing right cerebellar subacute/acute infarct as well as left frontoparietal subacute/acute infarct, and EEG showing diffuse slowing, consistent with metabolic/toxic encephalopathy. The patient is not ready for any weaning her extubation. As such, the patient is going to undergo a tracheostomy tube insertion and effective as such today. Haemophilus influenzae pneumonia/tracheobronchitis. Acute diabetic ketoacidosis, recovered Acute kidney injury, recovered Acute hypernatremia, recovered History of asthma. Degenerative joint disease. Fungal dermatitis, involving the right groin area. Left cervical lymphadenopathy that needs to be worked up at the later stage Plan: Keep the patient a mechanical ventilator Proceed with a PEG and trach today We'll need a chest x-ray following the procedures 1 need somebody off sedation or pain control after the procedure and for that reason he was given Dilaudid Continue the well antiplatelet agent therapy and beta blockers Monitor the mental status CT of the brain was done today and showed no significant or hemodynamically significant stenosis of the intracerebral disease Complete the course of antibiotics regarding the Haemophilus influenza Poor prognosis and will continue to follow. A PICC line will be inserted also today. There is a critical care evaluation that was done in more than 30 minutes. Time with Patient: Greater than 30
[2022-08-22 12:42] LABS: Glucose,Whole Blood 106 mg/dL (70-110)
--- NOTE | 2022-08-22 12:47 | XR ---
EXAMINATION TYPE: XR chest 1V portable DATE OF EXAM: 08/22/2022 COMPARISON: 08/22/22 HISTORY: SOB, Follow Up FINDINGS: Indwelling tubes and catheters are unchanged. Right-sided PICC line with distal tip overlying the SVC . No evidence for pneumothorax. Right infrahilar density is unchanged. Stable appearance of the cardio-mediastinal structures at this time. Pleural effusion unchanged. IMPRESSION: 1. Stable portable chest. Clinical correlation and follow up until resolution is recommended.
--- NOTE | 2022-08-22 12:49 | XR ---
EXAMINATION TYPE: XR chest 1V portable DATE OF EXAM: 08/22/2022 COMPARISON: Same day HISTORY: SOB, Follow Up FINDINGS: Indwelling tubes and catheters are unchanged. PICC line is noted to extend into the right internal ju gular vein. The PICC line should be repositioned. No change in bibasilar opacities. Stable appearance of the cardio-mediastinal structures at this time. Pleural effusion unchanged. IMPRESSION: 1. PICC line as above
--- NOTE | 2022-08-22 13:22 | IR ---
PICC LINE PLACEMENT: HISTORY: Infection requiring long-term antibiotic therapy PROCEDURE: Ultrasound guidance of PICC line placement. MAGAZINE HAND: Dr. Darby. COMPLICATIONS: None ANESTHESIA: 1. 1% Lidocaine locally. FINDINGS/TECHNIQUE: The procedure was explained to the patient. The risks, complications, benefits and alternatives were discussed and any questions were answered. Informed consent was obtained. The patient was placed supine on the fluoroscopic table and prepped and draped in the usual sterile fas ion. Utilizing a 21 gauge needle and sonographic guidance, access in the right basilic vein was ach ieved and there is placement of a 0.018 guidewire. The vein is patent. A 5-F. sheath was placed ove r the guidewire. The guidewire and dilator were removed and a 5-F. Double lumen PICC line was placed through the sheath with the chest x-ray confirming the tip at the level of the SVC. The sheath was removed, the catheter was flushed and sutured into position. The patient was stable throughout the p rocedure and remained stable upon discharge from the Department of Radiology. The vein puncture was patent under ultrasound. A koenig scale image was obtained to document patency of the vein punctured. All elements of the maximal barrier technique were utilized. IMPRESSION: 1. Successful PICC line placement under ultrasound performed bedside within the ICU.
--- NOTE | 2022-08-22 13:54 | P.PN ---
Subjective Progress Note Date: 08/22/22 CHIEF COMPLAINT: Respiratory failure HISTORY OF PRESENT ILLNESS: Patient remains in the ICU intubated on mechanical ventilation. Patient had acute respiratory failure with pulmonary edema and acute ST elevated RI with stenting to the RCA. Also with acute CVA with right- sided weakness. Patient had CT of the brain today no evidence of dissection of the cervical internal carotid arteries or vertebral arteries. No evidence of intracranial high-grade stenosis or intracranial aneurysm. At least 50% st enosis at the left carotid bifurcation. Surgical service following in regards to tracheostomy and PEG tube placement initially scheduled today but has been rescheduled for tomorrow. Afebrile. WBC 10.6 hemoglobin 9.8 albumin 2.6 PHYSICAL EXAM: VITAL SIGNS: Reviewed. GENERAL: On mechanical ventilation ABDOMEN: Soft. Nondistended. Nontender. ASSESSMENT: 1. Acute hypoxic respiratory failure 2. Severe protein calorie malnutrition 3. Acute CHF exacerbation 4. Acute ST elevated RI status post stent 5. Acute CVA PLAN: -Patient scheduled for tracheostomy and PEG tube placement tomorrow, 08/23/[address] osn -Continue to hold the Brilenta -Hold tube feedings after midnight -Hold SC Heparin in AM -Continue supportive care Physician Data Communications Technician note has been reviewed by physician. Signing provider agrees with the documented findings, assessment, and plan of care. Objective - Vital Signs Vital signs: Vital Signs Temp 98.6 F 08/22/22 12:00 Pulse 93 08/22/22 13:00 Resp 22 08/22/22 13:00 BP 101/59 08/22/22 12:00 Pulse Ox 95 08/22/22 13:00 FiO2 30 08/22/22 12:00 Intake & Output 08/21/22 08/22/22 08/22/22 18:59 06:59 18:59 Intake Total 1240 425 20 Output Total 1225 1125 560 Balance 15 -700 -540 Weight 94.3 kg 94.3 kg Intake: IV 30 Dextrose 5% in Water 1, 30 000 ml @ 100 mls/hr IV . Q10H [facility] Rx#:[id number] Tube Feeding 420 175 Other 790 250 20 Output: Urine 1225 1125 560 Other: Voiding Method Indwelling Catheter Indwelling Catheter Indwelling Catheter # Bowel Movements 1 ABP, PAP, CO, CI - Last Documented Arterial Blood Pressure 152/46 - Labs CBC & Chem 7: 08/22/22 11:30 08/22/22 03:03 Labs: Abnormal Lab Results - Last 24 Hours (Table) 08/21/22 08/21/22 08/22/22 Range/Units 17:55 23:51 01:35 WBC (3.8-10.6) k/uL RBC (4.30-5.90) m/uL Hgb (13.0-17.5) gm/dL Hct (39.0-53.0) % Neutrophils # (1.3-7.7) k/uL Lymphocytes # (1.0-4.8) k/uL ABG pH (7.35-7.45) ABG HCO3 (21-25) mmol/L ABG Total CO2 (19-24) mmol/L ABG O2 Saturation (94-97) % Chloride (98-107) mmol/L BUN (9-20) mg/dL Glucose (74-99) mg/dL POC Glucose (mg/dL) 221 H 167 H 196 H (70-110) mg/dL 08/22/22 08/22/22 08/22/22 Range/Units 03:03 03:03 05:14 WBC 11.4 H (3.8-10.6) k/uL RBC 3.56 L (4.30-5.90) m/uL Hgb 10.8 L (13.0-17.5) gm/dL Hct 33.4 L (39.0-53.0) % Neutrophils # 9.6 H (1.3-7.7) k/uL Lymphocytes # 0.9 L (1.0-4.8) k/uL ABG pH (7.35-7.45) ABG HCO3 (21-25) mmol/L ABG Total CO2 (19-24) mmol/L ABG O2 Saturation (94-97) % Chloride 111 H (98-107) mmol/L BUN 35 H (9-20) mg/dL Glucose 193 H (74-99) mg/dL POC Glucose (mg/dL) 171 H (70-110) mg/dL 08/22/22 08/22/22 Range/Units 05:45 11:30 WBC (3.8-10.6) k/uL RBC 3.28 L (4.30-5.90) m/uL Hgb 9.8 L (13.0-17.5) gm/dL Hct 30.6 L (39.0-53.0) % Neutrophils # (1.3-7.7) k/uL Lymphocytes # (1.0-4.8) k/uL ABG pH 7.51 H (7.35-7.45) ABG HCO3 28 H (21-25) mmol/L ABG Total CO2 29 H (19-24) mmol/L ABG O2 Saturation 97.9 H (94-97) % Chloride (98-107) mmol/L BUN (9-20) mg/dL Glucose (74-99) mg/dL POC Glucose (mg/dL) (70-110) mg/dL
--- NOTE | 2022-08-22 15:26 | P.PN ---
Subjective Progress Note Date: 08/22/22 The patient is seen at bedside and per nurse, he is tracking. Trach and PEG is pending to be done either today or tomorrow. Objective - Vital Signs Vital signs: Vital Signs Temp 98.6 F 08/22/22 12:00 Pulse 93 08/22/22 13:00 Resp 22 08/22/22 13:00 BP 101/59 08/22/22 12:00 Pulse Ox 95 08/22/22 13:00 FiO2 30 08/22/22 12:00 Intake & Output 08/21/22 08/22/22 08/22/22 18:59 06:59 18:59 Intake Total 1240 425 20 Output Total 1225 1125 560 Balance 15 700 -540 Weight 94.3 kg 94.3 kg Intake: IV 30 Dextrose 5% in Water 1, 30 000 ml @ 100 mls/hr IV . Q10H [facility] Rx#:[id number] Tube Feeding 420 175 Other 790 250 20 Output: Urine 1225 1125 560 Other: Voiding Method Indwelling Catheter Indwelling Catheter Indwelling Catheter # Bowel Movements 1 ABP, PAP, CO, CI - Last Documented Arterial Blood Pressure 152/46 - Exam GENERAL: The patient is lying in bed and does not appear in acute distress. LUNG: Intubated on ventilator. NEUROLOGICAL: Limited because of patient's condition. Higher mental function: Is severely drowsy but following few simple commands. Cranial nerves: He briefly open his eyes to voice and tracks throught the room. No appreciable facial weakness. Is breathing over the vent. Rest is limited. Motor: The strength is Left upper extremity is 1-2 mostly proximal and is able to show thumb up and move his hand on command. Left lower wiggle toes and has 1 movement proximally. No movement noted over the right side. Decrease tone over the right. Cerebellum: Unable to assess. Sensation: Withdrawal of the right lower to painful stimuli. SOME OF THE WORK-UP DURING THIS HOSPITAL VISIT CONSISTED OF: Lipid panels triglyceride 124, cholesterol 123, LDLs 81 and HDL is a 60 Hemoglobin A1c 9.2. White virus to start nondetected CT head is reported as acute/subacute CVA on the medial aspect of the right cerebellar hemisphere. Additional acute/subacute CVA including the left frontal/parietal lobe deep white matter and right temporal lobe Repeat CT head on 11/17/22: Overall similar examination from the yesterday with acute/subacute CVA in the medial aspect of the right cerebellar hemisphere, left frontal parietal lobe deep white matter and right temporal lobe. No hemorrhagic conversion. Different vascular territories suggest embolic phenomena. Most recent CT head on 08/21/2022: It is reported as similar evolving subacute infarct anterior pole right temporal and medial right cerebellar hemisphere. Either subacute or more chronic infarct left frontal parietal junction superiorly. Background moderate burden of chronic small vessel ischemic disease. No hemorrhagic transformation, midline shift or herniation. Similar mild hydrocephalus. There may be due to central atrophy. Correlate exclude a component of NPH. Possible acute right sided ethmoid sinusitis. 2-D echo from 08/13/2022 revealed mildly increase septal wall thickness. Left ventricular systolic function is decreased at 40-45%. Inferior hypokinesis. Mo derate to severe aortic stenosis. EEG was performed, which was abnormal due to background slowing of severe degree. This is suggestive of generalized cerebral dysfunction as can be seen with toxic metabolic encephalopathy or due to diffuse structural brain abnormality. Clinical correlation is recommended. No epileptiform activity was seen. Carotid duplex is reported as there is plaque formation in image and measurements suggest 25% stenosis in both internal carotid arteries. Vertebral artery flow was not demonstrated on this exam. Transesophageal echocardiogram was reported as normal size with mild mildly impaired systolic function with the segmental wall motion abnormality. Ejection fraction of 40-45%. Severe aortic stenosis with mild aortic regurgitation. Mild to moderate mitral regurgitation. No shunting across the intra-atrial septum. Normal appearance of left atrial appendage. CTA head and neck is reported as no evidence of dissection of cervical internal carotid arteries or vertebral arteries. No evidence of intracranial high-grade stenosis or intracranial aneurysm. At least 50% stenosis at the left carotid bifurcation secondary to calcified plaque. No evidence of hemodynamic significant stenosis of the right carotid bifurcation. Right vertebral origin stenosis which is suboptimally evaluated given beam hardening artifact from the patient's shoulders. Multiple left-sided enlarged lymph nodes further evaluation and workup is recommended. Findings concerning for neoplastic process until proven otherwise. Right upper lobe atelectasis versus developing airspace disease. - Labs CBC & Chem 7: 08/22/22 11:30 08/22/22 03:03 Labs: Abnormal Lab Results - Last 24 Hours (Table) 08/21/22 08/21/22 08/22/22 Range/Units 17:55 23:51 01:35 WBC (3.8-10.6) k/uL RBC (4.30-5.90) m/uL Hgb (13.0-17.5) gm/dL Hct (39.0-53.0) % Neutrophils # (1.3-7.7) k/uL Lymphocytes # (1.0-4.8) k/uL ABG pH (7.35-7.45) ABG HCO3 (21-25) mmol/L ABG Total CO2 (19-24) mmol/L ABG O2 Saturation (94-97) % Chloride (98-107) mmol/L BUN (9-20) mg/dL Glucose (74-99) mg/dL POC Glucose (mg/dL) 221 H 167 H 196 H (70-110) mg/dL 08/22/22 08/22/22 08/22/22 Range/Units 03:03 03:03 05:14 WBC 11.4 H (3.8-10.6) k/uL RBC 3.56 L (4.30-5.90) m/uL Hgb 10.8 L (13.0-17.5) gm/dL Hct 33.4 L (39.0-53.0) % Neutrophils # 9.6 H (1.3-7.7) k/uL Lymphocytes # 0.9 L (1.0-4.8) k/uL ABG pH (7.35-7.45) ABG HCO3 (21-25) mmol/L ABG Total CO2 (19-24) mmol/L ABG O2 Saturation (94-97) % Chloride 111 H (98-107) mmol/L BUN 35 H (9-20) mg/dL Glucose 193 H (74-99) mg/dL POC Glucose (mg/dL) 171 H (70-110) mg/dL 08/22/22 08/22/22 Range/Units 05:45 11:30 WBC (3.8-10.6) k/uL RBC 3.28 L (4.30-5.90) m/uL Hgb 9.8 L (13.0-17.5) gm/dL Hct 30.6 L (39.0-53.0) % Neutrophils # (1.3-7.7) k/uL Lymphocytes # (1.0-4.8) k/uL ABG pH 7.51 H (7.35-7.45) ABG HCO3 28 H (21-25) mmol/L ABG Total CO2 29 H (19-24) mmol/L ABG O2 Saturation 97.9 H (94-97) % Chloride (98-107) mmol/L BUN (9-20) mg/dL Glucose (74-99) mg/dL POC Glucose (mg/dL) (70-110) mg/dL Assessment and Plan Assessment: * Acute to subacute ischemic stroke at different territories which is suggestive of embolic/cardioembolic (CT medial aspect of the right cerebellar hemisphere, left frontal/parietal lobe deep white matter and right temporal lobe). LUCA is negative for thrombus or shunting. * Right hemiplegic and significant left hemiparesis due to stroke * Altered mental status due to multifactorial: Due to acute stroke, toxic- metabolic encephalopathy and medication effect (Dilaudid). No seizure on EEG. * Acute hypoxic respiratory failure on mechanical ventilation * Acute systolic CHF, pulmonary edema, ischemic cardiomyopathy, acute STEMI * Multiple left-sided enlarged lymph nodes further evaluation and workup is recommended. Findings concerning for neoplastic process until proven otherwise. On CTA * Status post cardiac stent placement RCA 08/13/2022 * Diabetic ketoacidosis * Acute renal failure that is trending down * History of asthma * Anemia Plan: Patient currently on aspirin 81 mg daily and Brilinta 90 mg twice a day. Continue Lipitor 40 mg daily at bedtime for secondary stroke prophylaxis. LDL goal is less than 70 for stroke Family will like to pursue with PEG and Trach. Hemoglobin A1c 9.2. Recommend optimize control of diabetes. Telemetry monitoring rule out paroxysmal atrial fibrillation: So far no a- fib/flutter reported. Carotid duplex is reported as there is plaque formation in image and m easurements suggest 25% stenosis in both internal carotid arteries. Vertebral artery flow was not demonstrated on this exam. CTA did not reveal any intracranial stenosis or signifcant carotid stenosis but reported Multiple left-sided enlarged lymph nodes further evaluation and workup is recommended. Findings concerning for neoplastic process until proven otherwise. Recommend avoiding Dilaudid as much as possible as well as holding off any sedation for better neurological examination Cardiology team is on board Continue neuro checks On cardiac monitoring PT OT and DREDGE PIPEMAN are consulted Nephrology team is on board We'll defer the rest of the medical management to the primary and ICU team. For DVT prophylaxis: On subq heparin 5000U every 8 hours. Prognosis is very guarded and quality of lift appears poor. From the perspective the patient has bilateral hemispheric stroke and likely will continues to have residual deficits and be dependent for his ADLs. Family will like to proceed with PEG and Trach. I have updated his via phone and discussed plan with nurse. Time with Patient: Less than 30
[2022-08-22] MEDS: HYDROmorphone 1 MG/ML 1 ML SYRINGE IVP PRN (16:02)
[2022-08-22 17:22] LABS: Glucose,Whole Blood 186 mg/dL (70-110)
[2022-08-22] MEDS: ATORVASTATIN 40 MG TAB PO SCH (20:59)
[2022-08-22 23:50] LABS: Glucose,Whole Blood 189 mg/dL (70-110)
[2022-08-23] MEDS: HYDROmorphone 0.5 MG/0.5 ML SYRINGE IVP PRN ×3 (02:34→20:46)
[2022-08-23 04:45] LABS: African American GFR (CKD) >90 (>60 ml/min/1.73 sqM); Anion Gap 3 mmol/L; Blood Urea Nitrogen 33 mg/dL (9-20); Calcium 8.3 mg/dL (8.4-10.2); Carbon Dioxide 25 mmol/L (22-30); Chloride 117 mmol/L (98-107); Glucose 180 mg/dL (74-99); Non-African American GFR(CKD) 90 (>60 ml/min/1.73 sqM); Potassium 3.7 mmol/L (3.5-5.1); Sodium 145 mmol/L (137-145)
[2022-08-23 04:54] LABS: HGB 8.7 gm/dL (13.0-17.5); Hypochromasia Moderate; MCH 30.3 pg (25.0-35.0); MCHC 32.4 g/dL (31.0-37.0); MCV 93.6 fL (80.0-100.0); Mean Platelet Volume 9.2; Platelet Count 385 k/uL (150-450); Poikilocytosis Slight; RBC 2.88 m/uL (4.30-5.90); RDW 13.6 % (11.5-15.5); WBC 7.8 k/uL (3.8-10.6)
[2022-08-23 05:13] LABS: Glucose,Whole Blood 182 mg/dL (70-110)
[2022-08-23] MEDS: INSULIN ASPART (NovoLOG) 100 UNIT/ML VIAL SQ SCH ×6 (05:17→18:20)
[2022-08-23] MEDS: ARTIFICIAL TEARS-HYPROMELLOSE DROPS 15 ML BTL BOTH EYES SCH ×5 (05:17→20:35)
[2022-08-23] MEDS: POTASSIUM CHLORIDE 10 MEQ in WATER FOR INJECTION 1 100ML.BAG IVPB SCH ×2 (05:17→06:32)
[2022-08-23] MEDS: INSULIN DETEMIR (LEVEMIR) 100 UNIT/ML SYR SQ SCH (05:45)
[2022-08-23 05:47] LABS: ABG Base Excess 2.2 mmol/L; ABG HCO3 26 mmol/L (21-25); ABG Oxygen Saturation 97.8 % (94-97); ABG PCO2 33 mmHg (35-45); ABG PH 7.49 (7.35-7.45); ABG PO2 87 mmHg (83-108); ABG TCO2 27 mmol/L (19-24); Allen Test Performed? Yes
[2022-08-23 05:54] LABS: Anisocytosis (M) Present; Eosinophils # (M) 0.23 k/uL (0-0.7); Lymphocytes # (M) 0.62 k/uL (1.0-4.8); Monocytes # (M) 0.47 k/uL (0-1.0); Neutrophils # (M) 6.47 k/uL (1.3-7.7); Neutrophils % (M) 83 %; Nucleated Red Blood Cells 0 /100 WBC (0-0); Total Cells Counted 100
--- NOTE | 2022-08-23 08:34 | XR ---
EXAMINATION TYPE: XR chest 1V portable DATE OF EXAM: 08/23/2022 Comparison: 08/22/2022 Clinical History: 67-year-old male intubated Findings: ET tube tip at the level of the medial clavicular heads. Right PICC tip at the cavoatrial junction. N G tube courses below the diaphragm. Heart upper limits of normal size. Mild perihilar and infrahilar densities appears slightly increased. No sizable pleural effusion. Impression: Slight increase in perihilar and infrahilar opacities, probably atelectasis. Follow-up to exclude ear ly central pulmonary vascular congestion.
[2022-08-23] MEDS: TICAGRELOR 90 MG TAB PO SCH ×2 (09:33→20:29)
[2022-08-23] MEDS: ASPIRIN 81 MG PO SCH (09:36)
--- NOTE | 2022-08-23 09:39 | P.PN ---
Subjective Progress Note Date: 08/23/22 The patient is a 67-year-old male who is currently admitted to the hospital with an inferior ST elevated myocardial infarction. He underwent stenting of the RCA, which had heavy thrombus burden. Postoperative complications include right cerebellar CVA. The patient is currently intubated in the ICU and will be undergoing tracheostomy and PEG tube placement. The patient responds to verbal stimuli and touch. GENERAL: Ill-appearing, well-nourished and in no acute distress. Mechanically ventilated. NECK: Supple without JVD or thyromegaly. LUNGS: Breath sounds diminished to auscultation bilaterally. Respiration equal and unlabored. No wheezes, rales or rhonchi. HEART: Regular rate and rhythm. Systolic ejection murmur. No rubs or gallops. S1 and S2 heard. EXTREMITIES: Normal range of motion, mild edema. No clubbing or cyanosis. Peripheral pulses intact and strong. VITALS: Blood pressure 114/70, pulse 20, heart rate 85, SpO2 99% on 80% FiO2 TELEMETRY: Sinus rhythm overnight. No arrhythmias LABS: WBC 7.8, hemoglobin 8.7, hematocrit 27.0, platelet 385, sodium 145, potassium 3.7, BUN 33, creatinine 0.85 IMPRESSION: Inferior myocardial infarction, status post stenting of the RCA Ischemic cardiomyopathy, EF 40-45% with inferior hypokinesis Moderate to severe aortic stenosis Acute CVA, right cerebellum Hypoxic respiratory failure, currently ventilated PLAN: Switch to metoprolol succinate 50 mg in the morning Add losartan 25 mg at night Discontinue hydralazine Continue supportive care Further recommendations to be based upon clinical course I am dictating on behalf of Dr Luis E Lundy's history/physical and assessment/plan. Objective - Vital Signs Vital signs: Vital Signs Temp 97.1 F L 08/23/22 04:00 Pulse 85 08/23/22 07:00 Resp 20 08/23/22 07:00 BP 114/70 08/23/22 07:00 Pulse Ox 99 08/23/22 07:00 FiO2 30 08/23/22 07:35 Intake & Output 08/22/22 08/23/22 08/23/22 18:59 06:59 18:59 Intake Total 20 200 Output Total 1185 750 Balance -1165 -550 Weight 94.3 kg 88.904 kg Intake: Intake, IV Titration 200 Amount Potassium Chloride 10 meq 200 In Water For Injection 1 100ml.bag @ 100 mls/hr IVPB Q1H [facility] Rx#: [id number] Other 20 Output: Urine 1185 750 Other: Voiding Method Indwelling Catheter Indwelling Catheter ABP, PAP, CO, CI - Last Documented Arterial Blood Pressure 107/46 - Labs CBC & Chem 7: 08/23/22 04:17 08/23/22 04:17 Labs: Abnormal Lab Results - Last 24 Hours (Table) 08/22/22 08/22/22 08/22/22 Range/Units 11:30 17:20 23:48 RBC 3.28 L (4.30-5.90) m/uL Hgb 9.8 L (13.0-17.5) gm/dL Hct 30.6 L (39.0-53.0) % Lymphocytes # (Manual) (1.0-4.8) k/uL ABG pH (7.35-7.45) ABG pCO2 (35-45) mmHg ABG HCO3 (21-25) mmol/L ABG Total CO2 (19-24) mmol/L ABG O2 Saturation (94-97) % Chloride (98-107) mmol/L BUN (9-20) mg/dL Glucose (74-99) mg/dL POC Glucose (mg/dL) 186 H 189 H (70-110) mg/dL Calcium (8.4-10.2) mg/dL 08/23/22 08/23/22 08/23/22 Range/Units 04:17 04:17 05:12 RBC 2.88 L (4.30-5.90) m/uL Hgb 8.7 L (13.0-17.5) gm/dL Hct 27.0 L (39.0-53.0) % Lymphocytes # (Manual) 0.62 L (1.0-4.8) k/uL ABG pH (7.35-7.45) ABG pCO2 (35-45) mmHg ABG HCO3 (21-25) mmol/L ABG Total CO2 (19-24) mmol/L ABG O2 Saturation (94-97) % Chloride 117 H (98-107) mmol/L BUN 33 H (9-20) mg/dL Glucose 180 H (74-99) mg/dL POC Glucose (mg/dL) 182 H (70-110) mg/dL Calcium 8.3 L (8.4-10.2) mg/dL 08/23/22 Range/Units 05:38 RBC (4.30-5.90) m/uL Hgb (13.0-17.5) gm/dL Hct (39.0-53.0) % Lymphocytes # (Manual) (1.0-4.8) k/uL ABG pH 7.49 H (7.35-7.45) ABG pCO2 33 L (35-45) mmHg ABG HCO3 26 H (21-25) mmol/L ABG Total CO2 27 H (19-24) mmol/L ABG O2 Saturation 97.8 H (94-97) % Chloride (98-107) mmol/L BUN (9-20) mg/dL Glucose (74-99) mg/dL POC Glucose (mg/dL) (70-110) mg/dL Calcium (8.4-10.2) mg/dL
[2022-08-23] MEDS: HEPARIN SODIUM,PORCINE/PF 5,000 UNIT/0.5 ML SYRINGE SQ SCH ×2 (09:48→15:15)
[2022-08-23] MEDS: CHLORHEXIDINE GLUCONATE 15 ML CUP MUCOUS MEM SCH ×2 (09:48→20:46)
--- NOTE | 2022-08-23 09:56 | P.PN ---
Subjective Progress Note Date: 08/23/22 Patient is a 63-year-old male with history of diabetes mellitus type 2, [id number] with neuropathy, asthma, and osteoarthritis who presented to the emergency department with chest pain and shortness of breath. In the ER he underwent an extensive evaluation. He required BiPAP secondary to tachypnea. An EKG was obtained in the emergency department which shows ST segment elevation inferior with reciprocal changes and poor R-wave progression. Patient needed to have worsening respiratory distress and required intubation in the ER. He was emergently taken to manufacturing laborer and had PCI performed to the RCA. He did not have return of flow to the PDA despite thrombectomy and cardiology recommen ded an additional 12 hours of Aggrastat and heparin for 24. He was found to have diffuse edema on his chest x-ray on vent settings are consistent with ARDS. Initial laboratory analysis also demonstrated hyperglycemia with a blood sugar of 636, patient was acetone positive and therefore diagnosed with DKA. Due to his vent settings and diffuse pulmonary edema he was started on an insulin drip but was not provided with fluid resuscitation as was requiring a PEEP of 14 and an FiO2 of 100% on the vent. The DKA was resolved and patient was switched back to subcutaneous insulin. Ventilator settings were able to be weaned down, however, patient was unable to be taken off the vent after failed spontaneous breathing trials due to inability to follow commands. Inability to follow commands was suspected to be to acute/subacute stroke and neurology was consulted, recommended combination of aspirin, brillinta. EEG was done which showed generalized cerebral slowing. CT angiography of the head and neck showed 50% stenosis of the left ICA, as well as right vertebral artery stenosis but no hemodynamically significant stenosis, multiple enlarged lymph nodes on the left side. Due to his inability to be weaned off the vent, patient was ultimately scheduled for a tracheostomy, PEG tube on 08/23. Notably, however, his ability to follow commands to improve and he is able to do so when sedation is weaned. Social workers looking for LTACH placement. General: intubated, sedated HEENT: normocephalic, atraumatic, no tracheal deviation Respiratory: symmetric chest rise, no cyanosis, ventilator dependent CVS: perfusing all extremities, no distal gangrene, no pitting edema GI: soft, ND : no SPT, no CVAT, gr is present Neuro: sedated Assessment/plan: Acute inferior ST segment elevated myocardial infarction Moderate to severe aortic stenosis Severe Pum HTN RVSP 50 Acute systolic heart failure Cardiogenic shock: Resolved and patient now off pressors Ventilator dependent respiratory failure -Cardiology recommendations. Continue with aspirin, Brillenta, Lipitor, metoprolol -Defer diuretics to nephrology and cardiology. Patient currently not on any diuretics -Print Support Specialist to manage vent -Plan for PEG and trach early next week Acute encephalopathy likely due to acute CVA versus toxic metabolic encephalopathy Acute CVA Patient off sedation CT head showed acute/subacute stroke Neurology on board Patient on dual antiplatelet therapy as above and also on statin Carotid Dopplers negative for significant stenosis Patient also duration and follows simple commands. However not moving the right side of his body Haemophillus PNA -Resume IV Rocephin - pulm recs RASHMI - nephrology recs - nonobstructing calculi vs angiomyolipoma right upper pole -Resolved. 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 DVT prophylaxis: Subcu heparin Discussed with: nursing Anticipated discharge: Early next week Anticipated discharge place: Anticipate patient be ready for discharge to LTAC after PEG and trach Objective - Vital Signs Vital signs: Vital Signs Temp 97.1 F L 08/23/22 04:00 Pulse 85 08/23/22 07:00 Resp 20 08/23/22 07:00 BP 114/70 08/23/22 07:00 Pulse Ox 99 08/23/22 07:00 FiO2 30 08/23/22 07:35 Intake & Output 08/22/22 08/23/22 08/23/22 18:59 06:59 18:59 Intake Total 20 200 Output Total 1185 750 Balance -1165 -550 Weight 94.3 kg 88.904 kg Intake: Intake, IV Titration 200 Amount Potassium Chloride 10 meq 200 In Water For Injection 1 100ml.bag @ 100 mls/hr IVPB Q1H [facility] Rx#: [id number] Other 20 Output: Urine 1185 750 Other: Voiding Method Indwelling Catheter Indwelling Catheter ABP, PAP, CO, CI - Last Documented Arterial Blood Pressure 107/46 - Labs CBC & Chem 7: 08/23/22 04:17 08/23/22 04:17 Labs: Abnormal Lab Results - Last 24 Hours (Table) 08/22/22 08/22/22 08/22/22 Range/Units 11:30 17:20 23:48 RBC 3.28 L (4.30-5.90) m/uL Hgb 9.8 L (13.0-17.5) gm/dL Hct 30.6 L (39.0-53.0) % Lymphocytes # (Manual) (1.0-4.8) k/uL ABG pH (7.35-7.45) ABG pCO2 (35-45) mmHg ABG HCO3 (21-25) mmol/L ABG Total CO2 (19-24) mmol/L ABG O2 Saturation (94-97) % Chloride (98-107) mmol/L BUN (9-20) mg/dL Glucose (74-99) mg/dL POC Glucose (mg/dL) 186 H 189 H (70-110) mg/dL Calcium (8.4-10.2) mg/dL 08/23/22 08/23/22 08/23/22 Range/Units 04:17 04:17 05:12 RBC 2.88 L (4.30-5.90) m/uL Hgb 8.7 L (13.0-17.5) gm/dL Hct 27.0 L (39.0-53.0) % Lymphocytes # (Manual) 0.62 L (1.0-4.8) k/uL ABG pH (7.35-7.45) ABG pCO2 (35-45) mmHg ABG HCO3 (21-25) mmol/L ABG Total CO2 (19-24) mmol/L ABG O2 Saturation (94-97) % Chloride 117 H (98-107) mmol/L BUN 33 H (9-20) mg/dL Glucose 180 H (74-99) mg/dL POC Glucose (mg/dL) 182 H (70-110) mg/dL Calcium 8.3 L (8.4-10.2) mg/dL 08/23/22 Range/Units 05:38 RBC (4.30-5.90) m/uL Hgb (13.0-17.5) gm/dL Hct (39.0-53.0) % Lymphocytes # (Manual) (1.0-4.8) k/uL ABG pH 7.49 H (7.35-7.45) ABG pCO2 33 L (35-45) mmHg ABG HCO3 26 H (21-25) mmol/L ABG Total CO2 27 H (19-24) mmol/L ABG O2 Saturation 97.8 H (94-97) % Chloride (98-107) mmol/L BUN (9-20) mg/dL Glucose (74-99) mg/dL POC Glucose (mg/dL) (70-110) mg/dL Calcium (8.4-10.2) mg/dL
[2022-08-23] MEDS: PANTOPRAZOLE 40 MG/10 ML VIAL IVP SCH (09:58)
[2022-08-23] MEDS: amLODIPine 10 MG TAB PO SCH (09:58)
[2022-08-23] MEDS: METOPROLOL SUCCINATE (ER) 50 MG TAB.ER.24H PO SCH (09:58)
[2022-08-23 11:28] LABS: Glucose,Whole Blood 157 mg/dL (70-110)
[2022-08-23] MEDS ORDERED: fentaNYL (PF) 50 MCG/ML 2 ML AMP ONE (12:25)
[2022-08-23] MEDS ORDERED: ROCURONIUM 10 MG/ML (5 ML VIAL) IV ONE (12:25)
[2022-08-23] MEDS ORDERED: PHENYLEPHRINE-0.9% NACL SYG 1,000 MCG/10 ML SYRINGE ONE (12:25)
--- NOTE | 2022-08-23 13:12 | P.OP ---
Date of Procedure: 08/23/22 Preoperative Diagnosis: Respiratory failure Protein calorie malnutrition Postoperative Diagnosis: Respiratory failure Protein calorie malnutrition Procedure(s) Performed: Tracheostomy PEG tube placement Anesthesia: LACEY Surgeon: Joshua Le Estimated Blood Loss (ml): 10 Pathology: none sent Condition: stable Disposition: ICU Description of Procedure: The patient's placed on the bed in the supine position. The patient received general anesthesia. The neck was prepped and draped in usual sterile fashion. A standard transverse skin incision was made approximately 2 cm above the sternal notch. Using electrocautery the subcutaneous tissues were divided. The platysma was divided. A Wheatlander retractor was placed in the wound. Next the strap muscles were divided in the midline. Another weatlander retractor was placed the wound. The pretracheal fat was then divided with left cautery. The trachea was exposed. At this point the TANK HOUSE OPERATOR HELPER advance the and the tracheal tube into the right mainstem bronchus. The balloon was inflated. A tracheotomy was then performed between the second and third tracheal rings. The perivascular tissues a gracilis the trachea. The endotracheal tube was brought back under direct vision. And then the #8 Portex tracheostomy tube was placed into the trachea. End-tidal CO2 was confirmed. The patient had been connected to the ventilator. The patient was ventilated satisfactory. The skin incision site was then closed with 3-0 nylon after the retractors were withdrawn. An umbilical tie was used to secure the tracheostomy tube. Next the gastroscope placed oropharynx passed in the esophagus and stomach. There is no evidence of any outlet obstruction. Stomach was insufflated with air. The light reflux seen the anterior abdominal wall. The abdomen was prepped and draped usual fashion. The skin was incised. And the needles placed and stomach under direct visualization. The needle was snared. And the wires placed through the needle and the wire was snared and brought the oropharynx. The PEG tube was placed over top the wire brought down to the stomach. The PEG tube was secured. At the 3 cm nova. The one-piece bolster was used. Patient tolerated procedure well.
--- NOTE | 2022-08-23 14:29 | P.PN ---
Subjective Progress Note Date: 08/23/22 The patient is seen at bedside and per nurse, he had PEG and Trach procedure today and was given some sedation during the procedure. Per nurse he was following simple commands prior. Objective - Vital Signs Vital signs: Vital Signs Temp 98.4 F 08/23/22 08:00 Pulse 90 08/23/22 11:00 Resp 20 08/23/22 11:00 BP 115/71 08/23/22 11:00 Pulse Ox 97 08/23/22 11:00 FiO2 30 08/23/22 10:27 Intake & Output 08/22/22 08/23/22 08/23/22 18:59 06:59 18:59 Intake Total 20 200 52 Output Total 1185 750 235 Balance -1165 -550 -183 Weight 94.3 kg 88.904 kg Intake: IV 52 0.9 KVO 40 art line pressure bag 12 Intake, IV Titration 200 Amount Potassium Chloride 10 meq 200 In Water For Injection 1 100ml.bag @ 100 mls/hr IVPB Q1H [facility] Rx#: [id number] Other 20 Output: Urine 1185 750 230 Estimated Blood Loss 5 Other: Voiding Method Indwelling Catheter Indwelling Catheter ABP, PAP, CO, CI - Last Documented Arterial Blood Pressure 120/51 - Exam GENERAL: The patient is lying in bed and does not appear in acute distress. LUNG:Trach on ventilator. Abdomen: +ve PEG tube. NEUROLOGICAL: Limited because of patient's condition. Received some sedation for Trach and PEG. Higher mental function: Is severely drowsy but followed minimal simple commands (showing thumbs up on the left hand) Cranial nerves: He briefly open his eyes to voice. No appreciable facial weakness. Is breathing over the vent. Rest is limited. Motor: The strength is limited. Left upper extremity is showing thumbs up on the left hand. Decrease tone over the right. Cerebellum: Unable to assess. Sensation: Withdrawal of the right lower to painful stimuli. SOME OF THE WORK-UP DURING THIS HOSPITAL VISIT CONSISTED OF: Lipid panels triglyceride 124, cholesterol 123, LDLs 81 and HDL is a 60 Hemoglobin A1c 9.2. White virus to start nondetected CT head is reported as acute/subacute CVA on the medial aspect of the right cerebellar hemisphere. Additional acute/subacute CVA including the left frontal/parietal lobe deep white matter and right temporal lobe Repeat CT head on 08/18/22: Overall similar examination from the yesterday with acute/subacute CVA in the medial aspect of the right cerebellar hemisphere, left frontal parietal lobe deep white matter and right temporal lobe. No hemorrhagic conversion. Different vascular territories suggest embolic phenomena. Most recent CT head on 08/21/2022: It is reported as similar evolving subacute infarct anterior pole right temporal and medial right cerebellar hemisphere. Either subacute or more chronic infarct left frontal parietal junction superiorly. Background moderate burden of chronic small vessel ischemic disease. No hemorrhagic transformation, midline shift or herniation. Similar mild hydrocephalus. There may be due to central atrophy. Correlate exclude a component of NPH. Possible acute right sided ethmoid sinusitis. 2-D echo from 08/13/2022 revealed mildly increase septal wall thickness. Left ventricular systolic function is decreased at 40-45%. Inferior hypokinesis. Moderate to severe aortic stenosis. EEG was performed, which was abnormal due to background slowing of severe degree. This is suggestive of generalized cerebral dysfunction as can be seen with toxic metabolic encephalopathy or due to diffuse structural brain abnormality. Clinical correlation is recommended. No epileptiform activity was seen. Carotid duplex is reported as there is plaque formation in image and measurements suggest 25% stenosis in both internal carotid arteries. Vertebral artery flow was not demonstrated on this exam. Transesophageal echocardiogram was reported as normal size with mild mildly impaired systolic function with the segmental wall motion abnormality. Ejection fraction of 40-45%. Severe aortic stenosis with mild aortic regurgitation. Mild to moderate mitral regurgitation. No shunting across the intra-atrial septum. Normal appearance of left atrial appendage. CTA head and neck is reported as no evidence of dissection of cervical internal carotid arteries or vertebral arteries. No evidence of intracranial high-grade stenosis or intracranial aneurysm. At least 50% stenosis at the left carotid bifurcation secondary to calcified plaque. No evidence of hemodynamic significant stenosis of the right carotid bifurcation. Right vertebral origin stenosis which is suboptimally evaluated given beam hardening artifact from the patient's shoulders. Multiple left-sided enlarged lymph nodes further evaluation and workup is recommended. Findings concerning for neoplastic process until proven otherwise. Right upper lobe atelectasis versus developing airspace disease. - Labs CBC & Chem 7: 08/23/22 04:17 08/23/22 04:17 Labs: Abnormal Lab Results - Last 24 Hours (Table) 08/22/22 08/22/22 08/23/22 Range/Units 17:20 23:48 04:17 RBC 2.88 L (4.30-5.90) m/uL Hgb 8.7 L (13.0-17.5) gm/dL Hct 27.0 L (39.0-53.0) % Lymphocytes # (Manual) 0.62 L (1.0-4.8) k/uL ABG pH (7.35-7.45) ABG pCO2 (35-45) mmHg ABG HCO3 (21-25) mmol/L ABG Total CO2 (19-24) mmol/L ABG O2 Saturation (94-97) % Chloride (98-107) mmol/L BUN (9-20) mg/dL Glucose (74-99) mg/dL POC Glucose (mg/dL) 186 H 189 H (70-110) mg/dL Calcium (8.4-10.2) mg/dL 08/23/22 08/23/22 08/23/22 Range/Units 04:17 05:12 05:38 RBC (4.30-5.90) m/uL Hgb (13.0-17.5) gm/dL Hct (39.0-53.0) % Lymphocytes # (Manual) (1.0-4.8) k/uL ABG pH 7.49 H (7.35-7.45) ABG pCO2 33 L (35-45) mmHg ABG HCO3 26 H (21-25) mmol/L ABG Total CO2 27 H (19-24) mmol/L ABG O2 Saturation 97.8 H (94-97) % Chloride 117 H (98-107) mmol/L BUN 33 H (9-20) mg/dL Glucose 180 H (74-99) mg/dL POC Glucose (mg/dL) 182 H (70-110) mg/dL Calcium 8.3 L (8.4-10.2) mg/dL 08/23/22 Range/Units 11:25 RBC (4.30-5.90) m/uL Hgb (13.0-17.5) gm/dL Hct (39.0-53.0) % Lymphocytes # (Manual) (1.0-4.8) k/uL ABG pH (7.35-7.45) ABG pCO2 (35-45) mmHg ABG HCO3 (21-25) mmol/L ABG Total CO2 (19-24) mmol/L ABG O2 Saturation (94-97) % Chloride (98-107) mmol/L BUN (9-20) mg/dL Glucose (74-99) mg/dL POC Glucose (mg/dL) 157 H (70-110) mg/dL Calcium (8.4-10.2) mg/dL Assessment and Plan Assessment: * Acute to subacute ischemic stroke at different territories which is suggestive of embolic/cardioembolic (CT medial aspect of the right cerebellar hemisphere, left frontal/parietal lobe deep white matter and right temporal lobe). LUCA is negative for thrombus or shunting. * Right hemiplegic and significant left hemiparesis due to stroke * Altered mental status due to multifactorial: Due to acute stroke, toxic- metabolic encephalopathy and medication effect (Dilaudid). No seizure on EEG. * Acute hypoxic respiratory failure on mechanical ventilation s/p Trach * Acute systolic CHF, pulmonary edema, ischemic cardiomyopathy, acute STEMI * Multiple left-sided enlarged lymph nodes further evaluation and workup is recommended. Findings concerning for neoplastic process until proven otherwise On CTA * Status Post PEG tube 08/23/22 * Status post cardiac stent placement RCA 08/13/2022 * Diabetic ketoacidosis * Acute renal failure that is trending down * History of asthma * Anemia Plan: Patient currently on aspirin 81 mg daily and Brilinta 90 mg twice a day. Continue Lipitor 40 mg daily at bedtime for secondary stroke prophylaxis. LDL goal is less than 70 for stroke Hemoglobin A1c 9.2. Recommend optimize control of diabetes. Telemetry monitoring rule out paroxysmal atrial fibrillation: So far no a- fib/flutter reported. Carotid duplex is reported as there is plaque formation in image and measurements suggest 25% stenosis in both internal carotid arteries. Vertebral artery flow was not demonstrated on this exam. CTA did not reveal any intracranial stenosis or signifcant carotid stenosis but reported Multiple left-sided enlarged lymph nodes further evaluation and workup is recommended. Findings concerning for neoplastic process until proven otherwise. Cardiology team is on board Continue neuro checks On cardiac monitoring PT OT and FERRY ENGINEER are consulted Nephrology team is on board We'll defer the rest of the medical management to the primary and ICU team. For DVT prophylaxis: On subq heparin 5000U every 8 hours. Prognosis is very guarded and quality of lift appears poor. From the perspective the patient has bilateral hemispheric stroke and likely will continues to have residual deficits and be dependent for his ADLs. Plan is discussed with the patient's nurse. Pending discharge to LTAC. Time with Patient: Less than 30
--- NOTE | 2022-08-23 15:09 | CDI ---
Documentation Clarification Form Date: 08/23/2022 01:04:29 PM From: Marilee Booth RN CCDS Admit Date: 08/13/2022 01:43:00 AM Patient Name: Willie Mantilla Visit Number: [id number] Discharge Date: ATTENTION: The Clinical Documentation Specialists (CDI) and [facility] Coding Staff appreciate your assistance in clarifying documentation. Please respond to the clarification below the line at the bottom and electronically sign. The CDI & [facility] Coding staff will review the response and follow-up if needed. Please note: Queries are made part of the Legal Health Record. If you have any questions, please contact the author of this message via ITS. Dr. Manuel Matthews, CVA is documented 08/23, Cardiology progress note and patient had percutaneous coronary intervention, 08/13. Additional clarification is requested regarding the relationship, if any, that exists between the diagnosis and the procedure. Patients Admitting Diagnosis: Inferior STEMI Post-Operative Diagnosis: CAD as described above with 10-30% LAD stenosis, 100% mid RCA stenosis. Procedure performed: PCI mid RCA with 3.0 x 38mm Xience SHAHBAZ, post dilated with 3.5NC balloon. Elevated filling pressures. At least moderate to severe aortic stenosis with [id number] gradient of 60mmHg. History/Risk Factors: 67-year-old male presents to the ED via EMS on BiPAP with difficulty breathing and chest pain. Medical History: Asthma, DM and Heart murmur, H&P, 08/13. Clinical Indicators: 08/23, Cardiology progress note: He underwent stenting of the RCA, which had heavy thrombus burden. Postoperative complications include right cerebellar CVA. 08/17, Carotid duplex: is reported as there is plaque formation in image and measurements suggest 25% stenosis in both internal carotid arteries. Vertebral artery flow was not demonstrated on this exam. 08/17, Brain CT without contrast: Acute/Subacute CVA of the medial aspect of the right cerebellar hemisphere. Additional Acute/Subacute CVA including the left frontal/parietal lobe deep white matter and right temporal lobe. 08/20, LUCA: Did not reveal any cardiac source of thromboembolic phenomenon. 08/20, Brain CT without contrast: 1.Similar evolving subacute infarcts anterior pole right temporal lobe and medial right cerebellar hemisphere. Either subacute or more chronic infarcts left frontoparietal junction superiorly. Background moderate burden of chronic small vessel ischemic disease. No hemorrhagic transformation, midline shift, or herniation. 08/22, CT Angio Head and Neck: 1.No evidence of dissection of the cervical internal carotid arteries or vertebral arteries. No evidence of intracranial high-grade stenosis or intracranial aneurysm. 2.At least 50% stenosis at the left carotid bifurcation secondary to calcified plaque. No evidence of hemodynamically significant stenosis of the right carotid bifurcation.3.Right vertebral artery origin stenosis which is suboptimally evaluated given beam hardening artifact from the patient's shoulders. 4.Multiple left-sided enlarged lymph nodes further evaluation and workup is recommended. Findings concerning for neoplastic process until proven otherwise. Neurology consult, 08/17: Patient is a 67-year-old male who came to the hospital on 08/12/2022 at 11:58 PM for shortness of breath and chest pain and significant respiratory distress. Patient also had some altered mental status. When patient arrived in the ER, patient was started on BiPAP. Apparently he became worse, and deteriorated rapidly therefore was intubated in the ER Neurology progress note, 08/22 * Acute to subacute ischemic stroke at different territories which is suggestive of embolic/cardioembolic (CT medial aspect of the right cerebellar hemisphere, left frontal/parietal lobe deep white matter and right temporal lobe).LUCA is negative for thrombus or shunting. Treatment: Aspirin 81mg PO Daily, Brilinta 90mg PO BID, Lipitor 40mg PO Daily Consults: Neurology see above What relationship, if any, exists between the diagnosis of CVA and the procedure: [ ] CVA is not related to left heart cath/PTCA [ ] Other please specify ____ [ x ] Unable to determine (Template Last Revised: November 2020) MTDD
--- NOTE | 2022-08-23 15:16 | P.PN ---
Subjective Progress Note Date: 08/23/22 On 08/22/2022, seeing this patient for a follow-up following his cardiac arrest. The patient remains intubated on a mechanical ventilator and the patient remains in the intensive care unit. In summary, presented with an acute respiratory failure requiring intubation mechanical ventilation. He was in acute pulmonary edema and he suffered from an acute ST segment elevation myocardial infarction and the patient underwent coronary intervention and he was found to have CAD with 100% RCA, 10-30% LAD and the patient underwent a mid RCA and insertion. The patient was also found to have moderate to severe aortic valve stenosis with a peak gradient of 60 mmHg. The echocardiogram that was done showed estimated ejection fraction of 40-45% and the patient had moderate to severe aortic valve stenosis. The patient also had an acute/subacute stroke, ischemic stroke at different territory although the possibility of an embolic/cardioembolic phenomena cannot be completely excluded. LUCA was negative for any thrombus or shunting. The patient's neurologic exam was consistent with a right hemiplegic weakness due to a left sided CVA. The patient currently is intubated on a mechanical ventilator. This morning, he is on assist-control mode at a rate of 20 with a tidal volume of 500 and FiO2 of 30% with a PEEP of 5. He came to find other the patient is off sedation for at least the past 5 days. He opens up his eyes. Quite tachypneic ventilator. He is not following commands consistently. He had right-sided weakness/hemiplegia. He was not ready for extubation. Based on that, it was made the decision to go ahead and proceed with a tracheostomy tube insertion of PEG tube insertion after having discussions with the family. The patient also having 51 today. On today's evaluation, the blood gas showed a pH of 7.51 with a pCO2 of 35 and pO2 of 87. The patient had a chest x-ray on 08/18/2022 and no chest x-rays since. The most recent chest x-ray showed some chronic interstitial changes bilaterally. Nevertheless, the patient has been asked oxygenating well. His current cardiac rhythm is sinus. His white suppositive 10.6 with a hemoglobin of 9.8. Electrolytes are normal. No renal dysfunction. Sodium is at 144 with a BUN of 35 and a creatinine of 0.8. Coagulation profile has not been checked recently. He is on a combination of aspirin and Brilinta. The patient is also on a sliding scale insulin coverage. His tube feeds on hold awaiting PEG tube insertion. In terms of his cardiac medication, other than the lower antiplatelet agent therapy, the patient is on metoprolol 25 mg by mouth 3 times a day and is also on Norvasc 10 mg by mouth daily for blood pressure control. Hydralazine is also on board at a dose of 25 mg by mouth twice a day. The patient is afebrile. No diarrhea. IV fluids are at KVO. A repeat CT angiogram was done today and the patient has no evidence of any dissection and the cervical internal carotid arteries or the vertebral arteries. Is at least 50% stenosis in the left carotid artery bifurcation secondary to calcified plaque. No evidence of any hemodynamically significant stenosis. Right vertebral artery origin had a stenosis which is suboptimally evaluated given the been hardening artifact. Multiple left-sided enlarged lymph nodes in the neck and the largest lymph node was measuring about 18 mm in size. and some atelectatic changes in the right lung and airspace disease. On 08/23/2022, seeing the patient for a follow-up. The patient currently is intubated on a mechanical ventilator. He remains off sedation. I'm a bit surprised because of his low level of consciousness. At times, I was told that he was more alert. This morning, at time of my evaluation, the patient was very difficult to arouse. He does have left-sided paralysis due to a stroke. Otherwise, he is very comfortable while being intubated on a mechanical ventilator and he is not fighting the tube at all. He is on assist-control mode at the rate of 20 with a tidal volume of 500 lymph nodes of 30% with a PEEP of 5. The blood gas showed a pH of 7.49 with a pCO2 of 33 and pO2 of 87. The patient was supposed to undergo a tracheostomy tube insertion and a PEG tube yesterday and this was not done and was rescheduled for today. Meanwhile, the patient has a net fluid balance of +393, IV fluids at KVO, the patient's tube feeds are currently on hold and earlier, he was on Nepro. The patient's blood work shows a bili 6 out of 7.8 with a hemoglobin of 8.7 and a platelet count of 385, his sodium level is at 145, bicarb is 25 with a BUN of 33 and a creatinine of 0.8 and a calcium level of 8.3. He is afebrile. He is hemodynamically stabl e. He does have a small palpable lymph node in the left neck area and this was also evident on a CAT scan of the head and neck. No other significant events otherwise for now. No cardiac arrhythmias. No change in his medication. The patient remains on a combination of aspirin and Brilinta. The patient is on Levemir insulin 20 units along with NovoLog sliding scale coverage. Objective - Vital Signs Vital signs: Vital Signs Temp 97.1 F L 08/23/22 04:00 Pulse 85 08/23/22 07:00 Resp 20 08/23/22 07:00 BP 114/70 08/23/22 07:00 Pulse Ox 99 08/23/22 07:00 FiO2 30 08/23/22 07:35 Intake & Output 08/22/22 08/23/22 08/23/22 18:59 06:59 18:59 Intake Total 20 200 Output Total 1185 750 Balance -1165 -550 Weight 94.3 kg 88.904 kg Intake: Intake, IV Titration 200 Amount Potassium Chloride 10 meq 200 In Water For Injection 1 100ml.bag @ 100 mls/hr IVPB Q1H [facility] Rx#: [id number] Other 20 Output: Urine 1185 750 Other: Voiding Method Indwelling Catheter Indwelling Catheter ABP, PAP, CO, CI - Last Documented Arterial Blood Pressure 107/46 - Exam No acute distress, with an orally placed endotracheal tube and NG tube, and currently not on any sedation. Patient is arousable. He does follow commands especially on the left side with is able to move his left upper and left lower extremity. He has hemiplegia on the right. Orogastric and orotracheal tube are both in place. Head exam was generally normal. There was no scleral icterus or corneal arcus. Mucous membranes were moist. HEENT examination is grossly unremarkable. Neck supple. Full range of motion. No adenopathy thyromegaly or neck vein distention. Cardiovascular examination reveals regular rhythm rate. S1-S2 normal. No S3 or S4. . Heart sounds are distant. Heart rate 99 beats a minute. The patient has a very harsh systolic ejection murmur grade 4/6 mainly in the left apex Lungs reveal scattered bilateral rhonchi. No wheezes. No distinct crackles. Breath sounds equal. Abdomen soft bowel sounds are heard. No masses or tenderness. Extremities are intact. No cyanosis clubbing or edema. Skin is without rash or lesion. Neurologic examination reveals a patient who does respond to simple commands. The patient has a preferential gaze to the right. Pupils are equal and reactive to light. No significant facial asymmetry. He is a spine to simple commands by moving his left side. Right side is quite hemiplegic at this point in time. Positive cough. Positive gag. - Labs CBC & Chem 7: 08/23/22 04:17 08/23/22 04:17 Labs: Abnormal Lab Results - Last 24 Hours (Table) 08/22/22 08/22/22 08/22/22 Range/Units 11:30 17:20 23:48 RBC 3.28 L (4.30-5.90) m/uL Hgb 9.8 L (13.0-17.5) gm/dL Hct 30.6 L (39.0-53.0) % Lymphocytes # (Manual) (1.0-4.8) k/uL ABG pH (7.35-7.45) ABG pCO2 (35-45) mmHg ABG HCO3 (21-25) mmol/L ABG Total CO2 (19-24) mmol/L ABG O2 Saturation (94-97) % Chloride (98-107) mmol/L BUN (9-20) mg/dL Glucose (74-99) mg/dL POC Glucose (mg/dL) 186 H 189 H (70-110) mg/dL Calcium (8.4-10.2) mg/dL 08/23/22 08/23/22 08/23/22 Range/Units 04:17 04:17 05:12 RBC 2.88 L (4.30-5.90) m/uL Hgb 8.7 L (13.0-17.5) gm/dL Hct 27.0 L (39.0-53.0) % Lymphocytes # (Manual) 0.62 L (1.0-4.8) k/uL ABG pH (7.35-7.45) ABG pCO2 (35-45) mmHg ABG HCO3 (21-25) mmol/L ABG Total CO2 (19-24) mmol/L ABG O2 Saturation (94-97) % Chloride 117 H (98-107) mmol/L BUN 33 H (9-20) mg/dL Glucose 180 H (74-99) mg/dL POC Glucose (mg/dL) 182 H (70-110) mg/dL Calcium 8.3 L (8.4-10.2) mg/dL 08/23/22 Range/Units 05:38 RBC (4.30-5.90) m/uL Hgb (13.0-17.5) gm/dL Hct (39.0-53.0) % Lymphocytes # (Manual) (1.0-4.8) k/uL ABG pH 7.49 H (7.35-7.45) ABG pCO2 33 L (35-45) mmHg ABG HCO3 26 H (21-25) mmol/L ABG Total CO2 27 H (19-24) mmol/L ABG O2 Saturation 97.8 H (94-97) % Chloride (98-107) mmol/L BUN (9-20) mg/dL Glucose (74-99) mg/dL POC Glucose (mg/dL) (70-110) mg/dL Calcium (8.4-10.2) mg/dL Assessment and Plan Plan: Acute hypoxemic respiratory failure, secondary to acute systolic CHF, pulmonary edema, ischemic cardiomyopathy, and acute ST segment elevation myocardial infarction. The patient is post cardiac catheterization and stenting to the RCA. On today's evaluation, the patient has adequate oxygenation. He has good weaning parameters. His diminished level of consciousness will be one of the main factors preventing this patient from being extubated and based on that the patient is going to proceed with a PEG and a tracheostomy tube insertion today. Moderate to Severe aortic stenosis, LV function is preserved, LV function is in order of 40-45%. LUCA was done and there is no evidence of any cardiac thrombus. Status post intubation and mechanical ventilation, on 08/13/2022. Status post stent placement, right coronary artery, 08/13/2022. Acute CVA with right-sided hemiplegia. Patient very poorly responsive and the patient is currently off sedation, computed tomography scan showing right cerebellar subacute/acute infarct as well as left frontoparietal subacute/acute infarct, and EEG showing diffuse slowing, consistent with metabolic/toxic encephalopathy. The patient is not ready for any weaning her extubation. As such, the patient is going to undergo a tracheostomy tube insertion and effective as such today. The patient has altered or alteration in his mentation. On today's evaluation, was more lethargic and encephalopathic less responsive compared to yesterday. Haemophilus influenzae pneumonia/tracheobronchitis. Acute diabetic ketoacidosis, recovered , and the patient is currently on Levemir insulin 20 units and NovoLog 6 units every 6 hours and a sliding scale coverage. Acute kidney injury, recovered Acute hypernatremia, recovered History of asthma. Degenerative joint disease. Fungal dermatitis, involving the right groin area. Left cervical lymphadenopathy that needs to be worked up at the later stage Plan: Keep the patient a mechanical ventilator Proceed with a PEG and trach today No weaning attempts to be done today We'll consult again with neurology Monitor the mental status CT of the brain was done yesterday and showed no significant or hemodynamically significant stenosis of the intracerebral disease Complete the course of antibiotics regarding the Haemophilus influenza Poor prognosis and will continue to follow. A PICC line will be inserted also today. There is a critical care evaluation that was done in more than 30 minutes. Time with Patient: Greater than 30
[2022-08-23 17:17] LABS: ABG HCO3 25 mmol/L (21-25); ABG Oxygen Saturation 97.6 % (94-97); ABG PCO2 33 mmHg (35-45); ABG PH 7.48 (7.35-7.45); ABG PO2 85 mmHg (83-108); ABG TCO2 26 mmol/L (19-24); Allen Test Performed? Yes
[2022-08-23 18:09] LABS: Glucose,Whole Blood 123 mg/dL (70-110)
[2022-08-23] MEDS: LOSARTAN 25 MG TAB PO SCH (18:27)
[2022-08-23] MEDS: ATORVASTATIN 40 MG TAB PO SCH (20:46)
[2022-08-23 23:57] LABS: Glucose,Whole Blood 138 mg/dL (70-110)
[2022-08-24 00:23] LABS: Glucose,Whole Blood 166 mg/dL (70-110)
[2022-08-24] MEDS: HEPARIN SODIUM,PORCINE/PF 5,000 UNIT/0.5 ML SYRINGE SQ SCH ×3 (00:37→17:24)
[2022-08-24] MEDS: INSULIN ASPART (NovoLOG) 100 UNIT/ML VIAL SQ SCH ×8 (00:38→17:24)
[2022-08-24] MEDS: HYDROmorphone 1 MG/ML 1 ML SYRINGE IVP PRN ×3 (04:13→17:25)
[2022-08-24 04:34] LABS: HCT 28.1 % (39.0-53.0); HGB 9.2 gm/dL (13.0-17.5); Hypochromasia Moderate; MCH 31.1 pg (25.0-35.0); MCHC 32.9 g/dL (31.0-37.0); MCV 94.4 fL (80.0-100.0); Mean Platelet Volume 9.2; Platelet Count 424 k/uL (150-450); Poikilocytosis Slight; RBC 2.97 m/uL (4.30-5.90); RDW 13.7 % (11.5-15.5); WBC 8.3 k/uL (3.8-10.6)
[2022-08-24 04:49] LABS: African American GFR (CKD) >90 (>60 ml/min/1.73 sqM); Anion Gap 5 mmol/L; Blood Urea Nitrogen 35 mg/dL (9-20); Calcium 8.5 mg/dL (8.4-10.2); Carbon Dioxide 24 mmol/L (22-30); Chloride 117 mmol/L (98-107); Glucose 145 mg/dL (74-99); Non-African American GFR(CKD) 78 (>60 ml/min/1.73 sqM); Potassium 3.8 mmol/L (3.5-5.1); Sodium 146 mmol/L (137-145)
[2022-08-24 05:59] LABS: ABG Base Excess 0.6 mmol/L; ABG HCO3 25 mmol/L (21-25); ABG Oxygen Saturation 98.7 % (94-97); ABG PCO2 35 mmHg (35-45); ABG PH 7.45 (7.35-7.45); ABG PO2 105 mmHg (83-108); ABG TCO2 26 mmol/L (19-24)
[2022-08-24] MEDS ORDERED: POTASSIUM BICARBONATE/CIT AC 20 MEQ TABLET.EFF NG-TUBE SCH (06:00)
[2022-08-24 06:16] LABS: Glucose,Whole Blood 145 mg/dL (70-110)
[2022-08-24] MEDS: INSULIN DETEMIR (LEVEMIR) 100 UNIT/ML SYR SQ SCH (06:20)
--- NOTE | 2022-08-24 07:14 | XR ---
EXAMINATION TYPE: XR chest 1V portable DATE OF EXAM: 08/24/2022 HISTORY: Shortness of breath. COMPARISON: 08/23/2022 TECHNIQUE: Single view of the chest is submitted. FINDINGS: Demonstrated are scattered senescent parenchymal change. Tracheostomy tube is appropriately placed. Right-sided PICC line are noted. Strandy basilar opacities persist which may reflect atelectasis and/or infiltrate. The heart is stable. Hilar and mediastinal structures are within normal limits. Degenerative changes are seen of the dorsal spine. IMPRESSION: 1. Stable chest. Interval placement of tracheostomy tube.
[2022-08-24] MEDS: CHLORHEXIDINE GLUCONATE 15 ML CUP MUCOUS MEM SCH ×2 (10:16→20:48)
[2022-08-24] MEDS: amLODIPine 10 MG TAB PO SCH (10:16)
[2022-08-24] MEDS: METOPROLOL SUCCINATE (ER) 50 MG TAB.ER.24H PO SCH (10:16)
[2022-08-24] MEDS: PANTOPRAZOLE 40 MG/10 ML VIAL IVP SCH (10:17)
[2022-08-24] MEDS: ASPIRIN 81 MG PO SCH (10:35)
[2022-08-24] MEDS: TICAGRELOR 90 MG TAB PO SCH ×2 (10:35→20:48)
[2022-08-24] MEDS ORDERED: DEXTROSE 5% IN WATER 1,000 ML IV ONE (10:47)
--- NOTE | 2022-08-24 11:10 | P.PN ---
Subjective Progress Note Date: 08/24/22 Principal diagnosis: MA 63-year-old male with history of diabetes mellitus type 2, yit-eialrso-ypvtdgesb with neuropathy, asthma, and osteoarthritis who presented to the emergency department with chest pain and shortness of breath. In the ER he underwent an extensive evaluation. He required BiPAP secondary to tachypnea. An EKG was obtained in the emergency department which shows ST segment elevation inferior with reciprocal changes and poor R-wave progression. Patient needed to have worsening respiratory distress and required intubation in the ER. He was emergently taken to director of cardiac cath lab and had PCI performed to the RCA. He did not have return of flow to the PDA despite thrombectomy and cardiology recommended an additional 12 hours of Aggrastat and heparin for 24. He was found to have diffuse edema on his chest x-ray on vent settings are consistent with ARDS. Initial laboratory analysis also demonstrated hyperglycemia with a blood sugar of 636, patient was acetone positive and therefore diagnosed with DKA. Due to his vent settings and diffuse pulmonary edema he was started on an insulin drip but was not provided with fluid resuscitation as was requiring a PEEP of 14 and an FiO2 of 100% on the vent. The DKA was resolved and patient was switched back to subcutaneous insulin. Ventilator settings were able to be weaned down, however, patient was unable to be taken off the vent after failed spontaneous breathing trials due to inability to follow commands. Inability to follow commands was suspected to be to acute/subacute stroke and neurology was consu lted, recommended combination of aspirin, brillinta. EEG was done which showed generalized cerebral slowing. CT angiography of the head and neck showed 50% stenosis of the left ICA, as well as right vertebral artery stenosis but no hemodynamically significant stenosis, multiple enlarged lymph nodes on the left side. Due to his inability to be weaned off the vent, patient was ultimately scheduled for a tracheostomy, PEG tube on 08/23. Notably, however, his ability to follow commands to improve and he is able to do so when sedation is weaned. Social workers looking for LTACH placement. 08/24: He is following commands currently, able to squeeze left hand and wiggle the left toes. No fevers. No overnight events. Objective - Vital Signs Vital signs: Vital Signs Temp 98.8 F 08/24/22 08:00 Pulse 88 08/24/22 10:00 Resp 16 08/24/22 10:00 BP 131/65 08/24/22 10:00 Pulse Ox 100 08/24/22 10:00 FiO2 35 08/24/22 10:47 Intake & Output 08/23/22 08/24/22 08/24/22 18:59 06:59 18:59 Intake Total 143 251 97 Output Total 535 588 240 Balance -392 -337 -143 Weight 90 kg Intake: IV 143 156 52 0.9 KVO 110 120 40 art line pressure bag 33 36 12 Tube Feeding 45 45 Other 50 Output: Urine 530 588 240 Estimated Blood Loss 5 Other: Voiding Method Indwelling Catheter Indwelling Catheter Indwelling Catheter ABP, PAP, CO, CI - Last Documented Arterial Blood Pressure 139/55 - Exam General: intubated, lethargic, no acute distress Neck: trach in place HEENT: normocephalic, atraumatic, no tracheal deviation Respiratory: symmetric chest rise, no cyanosis, ventilator dependent CVS: perfusing all extremities, no distal gangrene, no pitting edema GI: soft, ND : no SPT, no CVAT, gr is present Neuro: Right sided weakness - Labs CBC & Chem 7: 08/24/22 04:25 08/24/22 04:25 Labs: Abnormal Lab Results - Last 24 Hours (Table) 08/23/22 08/23/22 08/23/22 Range/Units 11: 17:14 17:48 RBC (4.30-5.90) m/uL Hgb (13.0-17.5) gm/dL Hct (39.0-53.0) % ABG pH 7.48 H (7.35-7.45) ABG pCO2 33 L (35-45) mmHg ABG Total CO2 26 H (19-24) mmol/L ABG O2 Saturation 97.6 H (94-97) % Sodium (137-145) mmol/L Chloride (98-107) mmol/L BUN (9-20) mg/dL Glucose (74-99) mg/dL POC Glucose (mg/dL) 157 H 123 H (70-110) mg/dL 08/23/22 08/24/22 08/24/22 Range/Units 23:56 00:22 04:25 RBC 2.97 L (4.30-5.90) m/uL Hgb 9.2 L (13.0-17.5) gm/dL Hct 28.1 L (39.0-53.0) % ABG pH (7.35-7.45) ABG pCO2 (35-45) mmHg ABG Total CO2 (19-24) mmol/L ABG O2 Saturation (94-97) % Sodium (137-145) mmol/L Chloride (98-107) mmol/L BUN (9-20) mg/dL Glucose (74-99) mg/dL POC Glucose (mg/dL) 138 H 166 H (70-110) mg/dL 08/24/22 08/24/22 08/24/22 Range/Units 04:25 05:54 06:14 RBC (4.30-5.90) m/uL Hgb (13.0-17.5) gm/dL Hct (39.0-53.0) % ABG pH (7.35-7.45) ABG pCO2 (35-45) mmHg ABG Total CO2 26 H (19-24) mmol/L ABG O2 Saturation 98.7 H (94-97) % Sodium 146 H (137-145) mmol/L Chloride 117 H (98-107) mmol/L BUN 35 H (9-20) mg/dL Glucose 145 H (74-99) mg/dL POC Glucose (mg/dL) 145 H (70-110) mg/dL Assessment and Plan Plan: Acute inferior ST segment elevated myocardial infarction Moderate to severe aortic stenosis Severe Pum HTN RVSP 50 Acute systolic heart failure Cardiogenic shock: Resolved and patient now off pressors Ventilator dependent respiratory failure -Cardiology recommendations. Continue with aspirin, Brillenta, Lipitor, metopr olol -Defer diuretics to nephrology and cardiology. Patient currently not on any diuretics -Cfo to manage vent -S/p trach Acute encephalopathy likely due to acute CVA versus toxic metabolic encephalopathy Acute CVA with right sided weakness Patient off sedation CT head showed acute/subacute stroke Neurology on board Patient on dual antiplatelet therapy as above and also on statin Carotid Dopplers negative for significant stenosis Haemophillus PNA -S/p IV Rocephin, currently d/rosalio. - pulm recs RASHMI - nephrology recs - nonobstructing calculi vs angiomyolipoma right upper pole -Resolved. Nephrology signed off Hypernatremia Water flushes through NG tube Trend BMP Resolved DM 2 with hyperglycemia with neuropathy DKA resolved - Levimir 20 units, Novolog 6 q6 + sliding scale - hold metformin and Glucotrol -Hemoglobin A1c is 9.2 Chronic: Asthma OA Eczema Patient is DNR/DNI. DVT prophylaxis: Subcu heparin Discussed with: nursing Anticipated discharge: Early next week Anticipated discharge place: LTAC after PEG and trach
--- NOTE | 2022-08-24 11:54 | P.PN ---
Progress Note - Text Progress Note Date: 08/24/22 Tracheostomy site is clean. PEG tube site is clean clean. Patient will start tube feedings later today.
[2022-08-24 12:06] LABS: Glucose,Whole Blood 133 mg/dL (70-110)
--- NOTE | 2022-08-24 12:13 | P.PN ---
Subjective Progress Note Date: 08/24/22 The patient is seen at bedside and according to the nurse that is known to him she stated exam in unchanged. But it appears, the other training nurse examined him and felt he was not following commands at 8am but was at 10am. He is trach, trach. Objective - Vital Signs Vital signs: Vital Signs Temp 98.8 F 08/24/22 08:00 Pulse 91 08/24/22 11:00 Resp 25 H 08/24/22 11:00 BP 133/70 08/24/22 11:00 Pulse Ox 99 08/24/22 11:00 FiO2 35 08/24/22 10:47 Intake & Output 08/23/22 08/24/22 08/24/22 18:59 06:59 18:59 Intake Total 143 251 150 Output Total 535 588 300 Balance -392 -337 -150 Weight 90 kg Intake: IV 143 156 105 0.9 KVO 110 120 40 Dextrose 5% in Water 1, 50 000 ml @ 50 mls/hr IV . Q20H ONE Rx#:[id number] art line pressure bag 33 36 15 Tube Feeding 45 45 Other 50 Output: Urine 530 588 300 Estimated Blood Loss 5 Other: Voiding Method Indwelling Catheter Indwelling Catheter Indwelling Catheter ABP, PAP, CO, CI - Last Documented Arterial Blood Pressure 155/58 - Exam GENERAL: The patient is lying in bed and does not appear in acute distress. LUNG:Trach on ventilator. Abdomen: +ve PEG tube. NEUROLOGICAL: Limited because of patient's condition. Higher mental function: Is drowsy but following command (showing thumbs up and wiggling toe on left). Cranial nerves: He open his eyes to voice. Pupils are round, equal and reactive to light. He is tracking to right and left. No appreciable facial weakness. Is breathing over the vent. Rest is limited. Motor: The strength is limited. Left upper extremity is showing thumbs up on the left hand and squeezing left hand. Is wiggling left ankle dorsiflexion/plantarflexion. No movement is noted on the right. Decrease tone over the right. Cerebellum: Unable to assess. Sensation: Withdrawal of the right lower to painful stimuli. SOME OF THE WORK-UP DURING THIS HOSPITAL VISIT CONSISTED OF: Lipid panels triglyceride 124, cholesterol 123, LDLs 81 and HDL is a 60 Hemoglobin A1c 9.2. White virus to start nondetected CT head is reported as acute/subacute CVA on the medial aspect of the right cerebellar hemisphere. Additional acute/subacute CVA including the left frontal/parietal lobe deep white matter and right temporal lobe Repeat CT head on 08/18/22: Overall similar examination from the yesterday with acute/subacute CVA in the medial aspect of the right cerebellar hemisphere, left frontal parietal lobe deep white matter and right temporal lobe. No hemorrhagic conversion. Different vascular territories suggest embolic phenomena. Most recent CT head on 08/21/2022: It is reported as similar evolving subacute infarct anterior pole right temporal and medial right cerebellar hemisphere. Either subacute or more chronic infarct left frontal parietal junction super iorly. Background moderate burden of chronic small vessel ischemic disease. No hemorrhagic transformation, midline shift or herniation. Similar mild hydrocephalus. There may be due to central atrophy. Correlate exclude a component of NPH. Possible acute right sided ethmoid sinusitis. 2-D echo from 08/13/2022 revealed mildly increase septal wall thickness. Left ventricular systolic function is decreased at 40-45%. Inferior hypokinesis. Moderate to severe aortic stenosis. EEG was performed, which was abnormal due to background slowing of severe degree. This is suggestive of generalized cerebral dysfunction as can be seen with toxic metabolic encephalopathy or due to diffuse structural brain abnormality. Clinical correlation is recommended. No epileptiform activity was seen. Carotid duplex is reported as there is plaque formation in image and measurements suggest 25% stenosis in both internal carotid arteries. Vertebral artery flow was not demonstrated on this exam. Transesophageal echocardiogram was reported as normal size with mild mildly impaired systolic function with the segmental wall motion abnormality. Ejection fraction of 40-45%. Severe aortic stenosis with mild aortic regurgitation. Mild to moderate mitral regurgitation. No shunting across the intra-atrial septum. Normal appearance of left atrial appendage. CTA head and neck is reported as no evidence of dissection of cervical internal carotid arteries or vertebral arteries. No evidence of intracranial high-grade stenosis or intracranial aneurysm. At least 50% stenosis at the left carotid bifurcation secondary to calcified plaque. No evidence of hemodynamic significant stenosis of the right carotid bifurcation. Right vertebral origin stenosis which is suboptimally evaluated given beam hardening artifact from the patient's shoulders. Multiple left-sided enlarged lymph nodes further evaluat ion and workup is recommended. Findings concerning for neoplastic process until proven otherwise. Right upper lobe atelectasis versus developing airspace disease. - Labs CBC & Chem 7: 11/23/22 04:25 08/24/22 04:25 Labs: Abnormal Lab Results - Last 24 Hours (Table) 08/23/22 08/23/22 08/23/22 Range/Units 17:14 17:48 23:56 RBC (4.30-5.90) m/uL Hgb (13.0-17.5) gm/dL Hct (39.0-53.0) % ABG pH 7.48 H (7.35-7.45) ABG pCO2 33 L (35-45) mmHg ABG Total CO2 26 H (19-24) mmol/L ABG O2 Saturation 97.6 H (94-97) % Sodium (137-145) mmol/L Chloride (98-107) mmol/L BUN (9-20) mg/dL Glucose (74-99) mg/dL POC Glucose (mg/dL) 123 H 138 H (70-110) mg/dL 08/24/22 08/24/22 08/24/22 Range/Units 00:22 04:25 04:25 RBC 2.97 L (4.30-5.90) m/uL Hgb 9.2 L (13.0-17.5) gm/dL Hct 28.1 L (39.0-53.0) % ABG pH (7.35-7.45) ABG pCO2 (35-45) mmHg ABG Total CO2 (19-24) mmol/L ABG O2 Saturation (94-97) % Sodium 146 H (137-145) mmol/L Chloride 117 H (98-107) mmol/L BUN 35 H (9-20) mg/dL Glucose 145 H (74-99) mg/dL POC Glucose (mg/dL) 166 H (70-110) mg/dL 08/24/22 08/24/22 08/24/22 Range/Units 05:54 06:14 12:04 RBC (4.30-5.90) m/uL Hgb (13.0-17.5) gm/dL Hct (39.0-53.0) % ABG pH (7.35-7.45) ABG pCO2 (35-45) mmHg ABG Total CO2 26 H (19-24) mmol/L ABG O2 Saturation 98.7 H (94-97) % Sodium (137-145) mmol/L Chloride (98-107) mmol/L BUN (9-20) mg/dL Glucose (74-99) mg/dL POC Glucose (mg/dL) 145 H 133 H (70-110) mg/dL Assessment and Plan Assessment: * Acute to subacute ischemic stroke at different territories which is suggestive of embolic/cardioembolic (CT medial aspect of the right cerebellar hemisphere, left frontal/parietal lobe deep white matter and right temporal lobe). LUCA is negative for thrombus or shunting. 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 No seizure on EEG. Mentation is unchanged and is following commands. * Acute hypoxic respiratory failure on mechanical ventilation s/p Trach * Acute systolic CHF, pulmonary edema, ischemic cardiomyopathy, acute STEMI * Multiple left-sided enlarged lymph nodes further evaluation and workup is recommended. Findings concerning for neoplastic process until proven otherwise On CTA * Status Post PEG tube 08/23/22 * Status post cardiac stent placement RCA 08/13/2022 * Diabetic ketoacidosis * Acute renal failure that is trending down * History of asthma * Anemia Plan: Will get repeat EEG to rule out seizure since was reported had intermittent following commands. To my examination and the nurse that has been following-up with him exam is unchanged. No need for repeat imaging of brain since exam in unchaged for me and last imaging was 2 days ago but if he has drastic change in neurological condition, can pursue with repeat CT head. Patient currently on aspirin 81 mg daily and Brilinta 90 mg twice a day. Cont inue Lipitor 40 mg daily at bedtime for secondary stroke prophylaxis. LDL goal is less than 70 for stroke Hemoglobin A1c 9.2. Recommend optimize control of diabetes. Telemetry monitoring rule out paroxysmal atrial fibrillation: So far no a- fib/flutter reported. Carotid duplex is reported as there is plaque formation in image and measurements suggest 25% stenosis in both internal carotid arteries. Vertebral artery flow was not demonstrated on this exam. CTA did not reveal any intracranial stenosis or signifcant carotid stenosis but reported Multiple left-sided enlarged lymph nodes further evaluation and workup is recommended. Findings concerning for neoplastic process until proven other rodriguez. Cardiology team is on board Continue neuro checks On cardiac monitoring PT OT and WAGE [facility] are consulted Nephrology team is on board We'll defer the rest of the medical management to the primary and ICU team. For DVT prophylaxis: On subq heparin 5000U every 8 hours. Prognosis is very guarded and quality of lift appears poor. From the perspective the patient has bilateral hemispheric stroke and likely will continues to have residual deficits and be dependent for his ADLs. Plan is discussed with the patient's nurse. Pending discharge to LTAC. Dr. Pyle will start neurology service tomorrow A.M. Time with Patient: Less than 30
--- NOTE | 2022-08-24 16:40 | P.PN ---
Subjective Progress Note Date: 08/24/22 On 08/22/2022, seeing this patient for a follow-up following his cardiac arrest. The patient remains intubated on a mechanical ventilator and the patient remains in the intensive care unit. In summary, presented with an acute respiratory failure requiring intubation mechanical ventilation. He was in acute pulmonary edema and he suffered from an acute ST segment elevation myocardial infarction and the patient underwent coronary intervention and he was found to have CAD with 100% RCA, 10-30% LAD and the patient underwent a mid RCA and insertion. The patient was also found to have moderate to severe aortic valve stenosis with a peak gradient of 60 mmHg. The echocardiogram that was done showed estimated ejection fraction of 40-45% and the patient had moderate to severe aortic valve stenosis. The patient also had an acute/subacute stroke, ischemic stroke at different territory although the possibility of an embolic/cardioembolic phenomena cannot be completely excluded. LUCA was negative for any thrombus or shunting. The patient's neurologic exam was consistent with a right hemiplegic weakness due to a left sided CVA. The patient currently is intubated on a mechanical ventilator. This morning, he is on assist-control mode at a rate of 20 with a tidal volume of 500 and FiO2 of 30% with a PEEP of 5. He came to find other the patient is off sedation for at least the past 5 days. He opens up his eyes. Quite tachypneic ventilator. He is not following commands consistently. He had right-sided weakness/hemiplegia. He was not ready for extubation. Based on that, it was made the decision to go ahead and proceed with a tracheostomy tube insertion of PEG tube insertion after having discussions with the family. The patient also having 51 today. On today's evaluation, the blood gas showed a pH of 7.51 with a pCO2 of 35 and pO2 of 87. The patient had a chest x-ray on 08/18/2022 and no chest x-rays since. The most recent chest x-ray showed some chronic interstitial changes bilaterally. Nevertheless, the patient has been asked oxygenating well. His current cardiac rhythm is sinus. His white suppositive 10.6 with a hemoglobin of 9.8. Electrolytes are normal. No renal dysfunction. Sodium is at 144 with a BUN of 35 and a creatinine of 0.8. Coagulation profile has not been checked recently. He is on a combination of aspirin and Brilinta. The patient is also on a sliding scale insulin coverage. His tube feeds on hold awaiting PEG tube insertion. In terms of his cardiac medication, other than the lower antiplatelet agent therapy, the patient is on metoprolol 25 mg by mouth 3 times a day and is also on Norvasc 10 mg by mouth daily for blood pressure control. Hydralazine is also on board at a dose of 25 mg by mouth twice a day. The patient is afebrile. No diarrhea. IV fluids are at KVO. A repeat CT angiogram was done today and the patient has no evidence of any dissection and the cervical internal carotid arteries or the vertebral arteries. Is at least 50% stenosis in the left carotid artery bifurcation secondary to calcified plaque. No evidence of any hemodynamically significant stenosis. Right vertebral artery origin had a stenosis which is suboptimally evaluated given the been hardening artifact. Multiple left-sided enlarged lymph nodes in the neck and the largest lymph node was measuring about 18 mm in size. and some atelectatic changes in the right lung and airspace disease. On 08/23/2022, seeing the patient for a follow-up. The patient currently is intubated on a mechanical ventilator. He remains off sedation. I'm a bit surprised because of his low level of consciousness. At times, I was told that he was more alert. This morning, at time of my evaluation, the patient was very difficult to arouse. He does have left-sided paralysis due to a stroke. Otherwise, he is very comfortable while being intubated on a mechanical ventilator and he is not fighting the tube at all. He is on assist-control mode at the rate of 20 with a tidal volume of 500 lymph nodes of 30% with a PEEP of 5. The blood gas showed a pH of 7.49 with a pCO2 of 33 and pO2 of 87. The patient was supposed to undergo a tracheostomy tube insertion and a PEG tube yesterday and this was not done and was rescheduled for today. Meanwhile, the patient has a net fluid balance of +393, IV fluids at KVO, the patient's tube feeds are currently on hold and earlier, he was on Nepro. The patient's blood work shows a bili 6 out of 7.8 with a hemoglobin of 8.7 and a platelet count of 385, his sodium level is at 145, bicarb is 25 with a BUN of 33 and a creatinine of 0.8 and a calcium level of 8.3. He is afebrile. He is hemodynamically stabl e. He does have a small palpable lymph node in the left neck area and this was also evident on a CAT scan of the head and neck. No other significant events otherwise for now. No cardiac arrhythmias. No change in his medication. The patient remains on a combination of aspirin and Brilinta. The patient is on Levemir insulin 20 units along with NovoLog sliding scale coverage. On today's evaluation of 08/24/2022, the patient is being seen for a follow-up. The patient has undergone a tracheostomy tube insertion and a PEG tube insertion. On today's neurologic evaluation, the patient was arousable and he was able to follow simple commands. However, if left unstimulated, he would go back to sleep and remains quite lethargic. Note that the patient had several neurology evaluation. For now, the exact cause for his underlying altered mentation or diminished level of consciousness is not clear. The patient acute/subacute ischemic stroke at different territories which obviously raises the possibility of cardioembolic phenomenon this patient. LUCA was negative for thrombus or shunting. The patient has left-sided hemiplegia/hemiparesis due to the stroke. He continues to have altered mentation which is essentially multifactorial and there is no evidence of any seizure activity on EEG. On today's evaluation, the patient remains on a mechanical ventilator. He is going to be started on tube feeds. He is on a assist control mode with a rate of 20 with a tidal volume of 450 and FiO2 of 35% with a PEEP of 5. The blood gas showed a pH of 7.45 with a pCO2 of 35 and pO2 of 105. On his blood work, the patient had a white cell count of 8.3 with a hemoglobin of 9.2, BNP 35 with a creatinine of 0.9 and his sodium level is at 146. No fever. No chills. No other significant events overnight. PEG tube site is dry clean and intact. Chest x-ray shows adequate expansion of both lungs. Some limited atelectatic changes in left lung base. Otherwise, the rest of the findings are essentially within normal limits. Objective - Vital Signs Vital signs: Vital Signs Temp 98.0 F 08/24/22 16:00 Pulse 90 08/24/22 16:00 Resp 17 08/24/22 16:00 BP 133/65 08/24/22 16:00 Pulse Ox 100 08/24/22 16:00 FiO2 35 08/24/22 16:00 Intake & Output 08/23/22 08/24/22 08/24/22 18:59 06:59 18:59 Intake Total 143 251 765 Output Total 535 588 675 Balance -392 -337 90 Weight 90 kg 90 kg Intake: IV 143 156 370 0.9 KVO 110 120 40 Dextrose 5% in Water 1, 300 000 ml @ 50 mls/hr IV . Q20H ONE Rx#:[id number] art line pressure bag 33 36 30 Tube Feeding 45 195 Other 50 200 Output: Urine 530 588 675 Estimated Blood Loss 5 Other: Voiding Method Indwelling Catheter Indwelling Catheter Indwelling Catheter ABP, PAP, CO, CI - Last Documented Arterial Blood Pressure 145/55 - Exam No acute distress, patient has a tracheostomy tube in place Head exam was generally normal. There was no scleral icterus or corneal arcus. Mucous membranes were moist. HEENT examination is grossly unremarkable. Neck supple. Full range of motion. No adenopathy thyromegaly or neck vein distention. Cardiovascular examination reveals regular rhythm rate. S1-S2 normal. No S3 or S4. . Heart sounds are distant. Heart rate 99 beats a minute. The patient has a very harsh systolic ejection murmur grade 4/6 mainly in the left apex Lungs reveal scattered bilateral rhonchi. No wheezes. No distinct crackles. Breath sounds equal. Abdomen soft bowel sounds are heard. No masses or tenderness.patient has a PEG tube in place and the site is dry clean and intact Extremities are intact. No cyanosis clubbing or edema. Skin is without rash or lesion. Neurologic examination reveals left-sided hemiplegia/hemiparesis. He is arousable and he follows simple commands.the patient remains quite drowsy. He opens his eyes briefly. He was are equally reactive to light. He may have a preferential gaze although does not consistent. Babinski's are mute d - Labs CBC & Chem 7: 08/24/22 04:25 08/24/22 04:25 Labs: Abnormal Lab Results - Last 24 Hours (Table) 08/23/22 08/23/22 08/23/22 Range/Units 17:14 17:48 23:56 RBC (4.30-5.90) m/uL Hgb (13.0-17.5) gm/dL Hct (39.0-53.0) % ABG pH 7.48 H (7.35-7.45) ABG pCO2 33 L (35-45) mmHg ABG Total CO2 26 H (19-24) mmol/L ABG O2 Saturation 97.6 H (94-97) % Sodium (137-145) mmol/L Chloride (98-107) mmol/L BUN (9-20) mg/dL Glucose (74-99) mg/dL POC Glucose (mg/dL) 123 H 138 H (70-110) mg/dL 08/24/22 08/24/22 08/24/22 Range/Units 00:22 04:25 04:25 RBC 2.97 L (4.30-5.90) m/uL Hgb 9.2 L (13.0-17.5) gm/dL Hct 28.1 L (39.0-53.0) % ABG pH (7.35-7.45) ABG pCO2 (35-45) mmHg ABG Total CO2 (19-24) mmol/L ABG O2 Saturation (94-97) % Sodium 146 H (137-145) mmol/L Chloride 117 H (98-107) mmol/L BUN 35 H (9-20) mg/dL Glucose 145 H (74-99) mg/dL POC Glucose (mg/dL) 166 H (70-110) mg/dL 08/24/22 08/24/22 08/24/22 Range/Units 05:54 06:14 12:04 RBC (4.30-5.90) m/uL Hgb (13.0-17.5) gm/dL Hct (39.0-53.0) % ABG pH (7.35-7.45) ABG pCO2 (35-45) mmHg ABG Total CO2 26 H (19-24) mmol/L ABG O2 Saturation 98.7 H (94-97) % Sodium (137-145) mmol/L Chloride (98-107) mmol/L BUN (9-20) mg/dL Glucose (74-99) mg/dL POC Glucose (mg/dL) 145 H 133 H (70-110) mg/dL Assessment and Plan Plan: Acute hypoxemic respiratory failure, secondary to acute systolic CHF, pulmonary edema, ischemic cardiomyopathy, and acute ST segment elevation myocardial infarction. The patient is post cardiac catheterization and stenting to the RCA. On today's evaluation, the patient has adequate oxygenation. He has good weaning parameters. His diminished level of consciousness will be one of the main factors preventing this patient from being extubated and based on that the patient was given a tracheostomy tube on 08/23/2022. Chest x-ray was noted. B lood gas was noted. Patient may be able to be switched to a pressure support mode of mechanical ventilation which is essentially spontaneous. Moderate to Severe aortic stenosis, LV function is preserved, LV function is in order of 40-45%. LUCA was done and there is no evidence of any cardiac thrombus. Status post intubation and mechanical ventilation, on 08/13/2022. Status post stent placement, right coronary artery, 08/13/2022. Acute CVA with right-sided hemiplegia. Patient very poorly responsive and the patient is currently off sedation, computed tomography scan showing right cerebellar subacute/acute infarct as well as left frontoparietal subacute/acute infarct, and EEG showing diffuse slowing, consistent with metabolic/toxic encephalopathy. The patient is not ready for any weaning her extubation. As such, the patient is going to undergo a tracheostomy tube insertion and effec tive as such today. The patient has altered or alteration in his mentation. On today's evaluation, was more lethargic and encephalopathic yet seems to be slightly more alert compared to yesterday. Following commands. Continues to have hemiparesis on the left. Haemophilus influenzae pneumonia/tracheobronchitis. Acute diabetic ketoacidosis, recovered , and the patient is currently on Levemir insulin 20 units and NovoLog 6 units every 6 hours and a sliding scale coverage. Acute kidney injury, recovered Acute hypernatremia, recovered History of asthma. Degenerative joint disease. Fungal dermatitis, involving the right groin area. Left cervical lymphadenopathy that needs to be worked up at the later stage Plan: Keep the patient a mechanical ventilator switch this patient to a pressure support of 7 and a PEEP of 5 Initiate enteral feeding for nutritional support Chest x-ray was noted and the blood gas was also noted Continue rest of the supportive care Avoid sedation Monitor the mental status CT of the brain was done yesterday and showed no significant or hemodynamically significant stenosis of the intracerebral disease Complete the course of antibiotics regarding the Haemophilus influenza Poor prognosis and will continue to follow. A PICC line will be inserted also today. possible transferring this patient to select specialty within the next few days There is a critical care evaluation that was done in more than 30 minutes. Time with Patient: Greater than 30
[2022-08-24 17:17] LABS: Glucose,Whole Blood 151 mg/dL (70-110)
[2022-08-24] MEDS: LOSARTAN 25 MG TAB PO SCH (20:48)
[2022-08-24] MEDS: ATORVASTATIN 40 MG TAB PO SCH (20:48)
--- NOTE | 2022-08-24 22:49 | EEG ---
ELECTROENCEPHALOGRAM REPORT RELEVANT MEDICATIONS: The patient is not on any antiepileptic drugs. EEG TYPE: A routine 21-channel EEG is performed with video using the 10/20 electrode placement system. DESCRIPTION: The patient is intubated on a trach. The background consists of [id number] voltage of 5.5 to 6.5 hertz activity. There was no physiological stage 2 sleep architecture seen. There is no physiological stage 2 sleep architecture. There is no focal slowing. Interictal and ictal is none. ACTIVATION PROCEDURE: Photic stimulation and hyperventilation are not performed. CLINICAL INTERPRETATION: This is an abnormal routine EEG. The background slowing is suggestive of mild-to- moderate encephalopathy. Otherwise, there is no focal slowing, epileptiform discharge, or seizure on the EEG. Clinical correlation is recommended. MMMELLY / DENISHA: [id number] /
[2022-08-25 00:03] LABS: Glucose,Whole Blood 257 mg/dL (70-110)
[2022-08-25] MEDS: HEPARIN SODIUM,PORCINE/PF 5,000 UNIT/0.5 ML SYRINGE SQ SCH ×4 (00:25→23:46)
[2022-08-25] MEDS: INSULIN ASPART (NovoLOG) 100 UNIT/ML VIAL SQ SCH ×10 (00:25→23:53)
[2022-08-25 04:51] LABS: Glucose,Whole Blood 262 mg/dL (70-110)
[2022-08-25 05:40] LABS: ABG Base Excess 2.1 mmol/L; ABG HCO3 26 mmol/L (21-25); ABG Oxygen Saturation 98.7 % (94-97); ABG PCO2 35 mmHg (35-45); ABG PH 7.47 (7.35-7.45); ABG PO2 102 mmHg (83-108); ABG TCO2 27 mmol/L (19-24); Allen Test Performed? Yes
[2022-08-25 05:54] LABS: HCT 26.2 % (39.0-53.0); HGB 8.5 gm/dL (13.0-17.5); Hypochromasia Marked; MCH 30.7 pg (25.0-35.0); MCHC 32.6 g/dL (31.0-37.0); MCV 94.1 fL (80.0-100.0); Mean Platelet Volume 8.7; Platelet Count 434 k/uL (150-450); Poikilocytosis Slight; RBC 2.78 m/uL (4.30-5.90); RDW 13.6 % (11.5-15.5); WBC 6.9 k/uL (3.8-10.6)
[2022-08-25 05:59] LABS: Glucose,Whole Blood 257 mg/dL (70-110)
[2022-08-25 06:03] LABS: African American GFR (CKD) >90 (>60 ml/min/1.73 sqM); Anion Gap 4 mmol/L; Blood Urea Nitrogen 29 mg/dL (9-20); Calcium 8.2 mg/dL (8.4-10.2); Carbon Dioxide 25 mmol/L (22-30); Chloride 116 mmol/L (98-107); Glucose 250 mg/dL (74-99); Non-African American GFR(CKD) >90 (>60 ml/min/1.73 sqM); Potassium 3.5 mmol/L (3.5-5.1); Sodium 145 mmol/L (137-145)
[2022-08-25] MEDS: POTASSIUM BICARBONATE/CIT AC 20 MEQ TABLET.EFF NG-TUBE SCH ×2 (06:49→07:59)
[2022-08-25] MEDS: INSULIN DETEMIR (LEVEMIR) 100 UNIT/ML SYR SQ SCH (06:50)
--- NOTE | 2022-08-25 07:45 | XR ---
EXAMINATION TYPE: XR chest 1V portable DATE OF EXAM: 08/25/2022 COMPARISON: 08/24/2022 HISTORY: Difficulty breathing TECHNIQUE: Single frontal view of the chest is obtained. FINDINGS: There is a tracheostomy tube 2.6 cm above the patrick. There is a right-sided PICC line ter minating in the SVC/R junction. There is a persistent small to moderate retrocardiac opacity likely a combination of pleural effusion and atelectasis. The right lung remains clear. There is no pneumothorax. The osseous structures are intact. IMPRESSION: Impression: 1. tracheostomy 2.6 cm above the patrick. 2. No change in the right-sided PICC line. 3. No change in the moderate retrocardiac opacity.
[2022-08-25] MEDS: PANTOPRAZOLE 40 MG/10 ML VIAL IVP SCH (07:59)
[2022-08-25] MEDS: amLODIPine 10 MG TAB PO SCH (07:59)
[2022-08-25] MEDS: CHLORHEXIDINE GLUCONATE 15 ML CUP MUCOUS MEM SCH ×2 (07:59→20:00)
[2022-08-25] MEDS: ASPIRIN 81 MG PO SCH (07:59)
[2022-08-25] MEDS: TICAGRELOR 90 MG TAB PO SCH ×2 (08:00→19:59)
[2022-08-25] MEDS: METOPROLOL SUCCINATE (ER) 50 MG TAB.ER.24H PO SCH (08:13)
--- NOTE | 2022-08-25 10:23 | P.PN ---
Subjective Progress Note Date: 08/25/22 Principal diagnosis: Respiratory failure 59-year-old male stable on the ventilator currently. Patient had tracheostomy and PEG tube placement 2 days ago. Small amount of bleeding around the tracheostomy site. Patient is on anticoagulation. Tolerating tube feeds at 45 mL per hour. Objective - Vital Signs Vital signs: Vital Signs Temp 97.6 F 08/25/22 08:00 Pulse 86 08/25/22 08:00 Resp 16 08/25/22 08:00 BP 138/71 08/25/22 07:00 Pulse Ox 99 08/25/22 08:00 FiO2 30 08/25/22 08:36 Intake & Output 08/24/22 08/25/22 08/25/22 18:59 06:59 18:59 Intake Total 1051 1844 143 Output Total 820 700 40 Balance 231 1144 103 Weight 90 kg 92 kg Intake: IV 476 679 53 0.9 KVO 40 Dextrose 5% in Water 1, 400 640 50 000 ml @ 50 mls/hr IV . Q20H ONE Rx#:[id number] art line pressure bag 36 39 3 Tube Feeding 175 565 90 Other 400 600 Output: Urine 820 700 40 Other: Voiding Method Indwelling Catheter Indwelling Catheter Indwelling Catheter ABP, PAP, CO, CI - Last Documented Arterial Blood Pressure 129/48 - Exam Abdomen: Soft, nondistended, PEG tube in place Tracheostomy with small amount of blood on the dressing, no active bleeding, no air leak - Labs CBC & Chem 7: 08/25/22 05:40 08/25/22 05:40 Labs: Abnormal Lab Results - Last 24 Hours (Table) 08/24/22 08/24/22 08/25/22 Range/Units 12:04 17:15 00:01 RBC (4.30-5.90) m/uL Hgb (13.0-17.5) gm/dL Hct (39.0-53.0) % ABG pH (7.35-7.45) ABG HCO3 (21-25) mmol/L ABG Total CO2 (19-24) mmol/L ABG O2 Saturation (94-97) % Chloride (98-107) mmol/L BUN (9-20) mg/dL Glucose (74-99) mg/dL POC Glucose (mg/dL) 133 H 151 H 257 H (70-110) mg/dL Calcium (8.4-10.2) mg/dL 08/25/22 08/25/22 08/25/22 Range/Units 04:49 05:36 05:40 RBC 2.78 L (4.30-5.90) m/uL Hgb 8.5 L (13.0-17.5) gm/dL Hct 26.2 L (39.0-53.0) % ABG pH 7.47 H (7.35-7.45) ABG HCO3 26 H (21-25) mmol/L ABG Total CO2 27 H (19-24) mmol/L ABG O2 Saturation 98.7 H (94-97) % Chloride (98-107) mmol/L BUN (9-20) mg/dL Glucose (74-99) mg/dL POC Glucose (mg/dL) 262 H (70-110) mg/dL Calcium (8.4-10.2) mg/dL 08/25/22 08/25/22 Range/Units 05:40 05:57 RBC (4.30-5.90) m/uL Hgb (13.0-17.5) gm/dL Hct (39.0-53.0) % ABG pH (7.35-7.45) ABG HCO3 (21-25) mmol/L ABG Total CO2 (19-24) mmol/L ABG O2 Saturation (94-97) % Chloride 116 H (98-107) mmol/L BUN 29 H (9-20) mg/dL Glucose 250 H (74-99) mg/dL POC Glucose (mg/dL) 257 H (70-110) mg/dL Calcium 8.2 L (8.4-10.2) mg/dL Assessment and Plan (1) Acute respiratory failure Narrative/Plan: 67-year-old male stable on the ventilator at this time. Continue supportive care. Monitor tracheostomy and PEG tube site. Continue tube feeds at goal. We'll follow. Current Visit: Yes Status: Acute Code(s): J96.00 - ACUTE RESPIRATORY FAILURE, UNSP W HYPOXIA OR HYPERCAPNIA SNOMED Code(s): 69883049
[2022-08-25] MEDS ORDERED: INSULIN DETEMIR (LEVEMIR) 100 UNIT/ML SYR SQ ONE (10:56)
[2022-08-25] MEDS ORDERED: DEXTROSE 5% IN WATER 1,000 ML IV ONE (12:04)
[2022-08-25 12:08] LABS: Glucose,Whole Blood 226 mg/dL (70-110)
[2022-08-25 12:11] LABS: Glucose,Whole Blood 243 mg/dL (70-110)
--- NOTE | 2022-08-25 12:47 | P.PN ---
Subjective Progress Note Date: 08/25/22 Patient was seen for a follow-up. Patient was initially seen by myself on 08/17/2022. Please refer to my note for details. Subsequently patient was seen by Dr. Ab Vega over the next week. Please refer to his notes for details as well. Came to see patient for a follow-up. Patient has bilateral hemispheric strokes. Patient's LUCA was negative. CTA of head and neck were negative. Patient now has track and PEG tube. Repeat EEG was negative for any seizure activity. There was mild to moderate encephalopathy. Patient currently on aspirin 81 mg daily and Brilinta 90 mg twice a day. Patient at present laying comfortably in the bed. Patient has tracheostomy tube. No distress. Please refer to examination below. SOME OF THE WORK-UP DURING THIS HOSPITAL VISIT CONSISTED OF: Lipid panels triglyceride 124, cholesterol 123, LDLs 81 and HDL is a 60 Hemoglobin A1c 9.2. White virus to start nondetected CT head is reported as acute/subacute CVA on the medial aspect of the right cerebellar hemisphere. Additional acute/subacute CVA including the left frontal/parietal lobe deep white matter and right temporal lobe Repeat CT head on 08/18/22: Overall similar examination from the yesterday with acute/subacute CVA in the medial aspect of the right cerebellar hemisphere, left frontal parietal lobe deep white matter and right temporal lobe. No hemorrhagic conversion. Different vascular territories suggest embolic phenomena. Most recent CT head on 08/21/2022: It is reported as similar evolving subacute infarct anterior pole right temporal and medial right cerebellar hemisphere. Either subacute or more chronic infarct left frontal parietal junction superiorly. Background moderate burden of chronic small vessel ischemic disease. No hemorrhagic transformation, midline shift or herniation. Similar mild hydrocephalus. There may be due to central atrophy. Correlate exclude a component of NPH. Possible acute right sided ethmoid sinusitis. 2-D echo from 08/13/2022 revealed mildly increase septal wall thickness. Left ventricular systolic function is decreased at 40-45%. Inferior hypokinesis. Moderate to severe aortic stenosis. EEG was performed, which was abnormal due to background slowing of severe degree. This is suggestive of generalized cerebral dysfunction as can be seen with toxic metabolic encephalopathy or due to diffuse structural brain abnormality. Clinical correlation is recommended. No epileptiform activity was seen. Carotid duplex is reported as there is plaque formation in image and matt urements suggest 25% stenosis in both internal carotid arteries. Vertebral artery flow was not demonstrated on this exam. Transesophageal echocardiogram was reported as normal size with mild mildly i mpaired systolic function with the segmental wall motion abnormality. Ejection fraction of 40-45%. Severe aortic stenosis with mild aortic regurgitation. Mild to moderate mitral regurgitation. No shunting across the intra-atrial septum. Normal appearance of left atrial appendage. CTA head and neck is reported as no evidence of dissection of cervical internal carotid arteries or vertebral arteries. No evidence of intracranial high-grade stenosis or intracranial aneurysm. At least 50% stenosis at the left carotid bifurcation secondary to calcified plaque. No evidence of hemodynamic signi ficant stenosis of the right carotid bifurcation. Right vertebral origin stenosis which is suboptimally evaluated given beam hardening artifact from the patient's shoulders. Multiple left-sided enlarged lymph nodes further evaluation and workup is recommended. Findings concerning for neoplastic p rocess until proven otherwise. Right upper lobe atelectasis versus developing airspace disease. Objective - Vital Signs Vital signs: Vital Signs Temp 97.6 F 08/25/22 08:00 Pulse 86 08/25/22 08:00 Resp 16 08/25/22 08:00 BP 138/71 08/25/22 07:00 Pulse Ox 99 08/25/22 08:00 FiO2 30 08/25/22 08:36 Intake & Output 08/24/22 08/25/22 08/25/22 18:59 06:59 18:59 Intake Total 1051 1844 143 Output Total 820 700 40 Balance 231 1144 103 Weight 90 kg 92 kg Intake: IV 476 679 53 0.9 KVO 40 Dextrose 5% in Water 1, 400 640 50 000 ml @ 50 mls/hr IV . Q20H ONE Rx#:[id number] art line pressure bag 36 39 3 Tube Feeding 175 565 90 Other 400 600 Output: Urine 820 700 40 Other: Voiding Method Indwelling Catheter Indwelling Catheter Indwelling Catheter ABP, PAP, CO, CI - Last Documented Arterial Blood Pressure 129/48 - Exam GENERAL: The patient is lying in bed and does not appear in acute distress. LUNG:Trach on ventilator. Abdomen: +ve PEG tube. NEUROLOGICAL: Limited because of patient's condition. Higher mental function: Is drowsy but following command (squeezing left hand, and wiggling his left foot very actively on command). Cranial nerves: He open his eyes to voice. Pupils are round, equal and reactive to light. He is tracking to right and left. No appreciable facial weakness. Is breathing over the vent. Oculocephalics and corneals are present. Rest is limited. Motor: The strength is limited. Patient strength is at least 4 in the japanese professor but no movement in the right japanese professor. Patient wiggles his left foot at the ankle very actively but no movement on the right foot. Decrease tone over the right. Cerebellum: Unable to assess. Sensation: Withdrawal of the right lower to painful stimuli. - Labs CBC & Chem 7: 08/25/22 05:40 08/25/22 05:40 Labs: Abnormal Lab Results - Last 24 Hours (Table) 08/24/22 08/24/22 08/25/22 Range/Units 12:04 17:15 00:01 RBC (4.30-5.90) m/uL Hgb (13.0-17.5) gm/dL Hct (39.0-53.0) % ABG pH (7.35-7.45) ABG HCO3 (21-25) mmol/L ABG Total CO2 (19-24) mmol/L ABG O2 Saturation (94-97) % Chloride (98-107) mmol/L BUN (9-20) mg/dL Glucose (74-99) mg/dL POC Glucose (mg/dL) 133 H 151 H 257 H (70-110) mg/dL Calcium (8.4-10.2) mg/dL 08/25/22 08/25/22 08/25/22 Range/Units 04:49 05:36 05:40 RBC 2.78 L (4.30-5.90) m/uL Hgb 8.5 L (13.0-17.5) gm/dL Hct 26.2 L (39.0-53.0) % ABG pH 7.47 H (7.35-7.45) ABG HCO3 26 H (21-25) mmol/L ABG Total CO2 27 H (19-24) mmol/L ABG O2 Saturation 98.7 H (94-97) % Chloride (98-107) mmol/L BUN (9-20) mg/dL Glucose (74-99) mg/dL POC Glucose (mg/dL) 262 H (70-110) mg/dL Calcium (8.4-10.2) mg/dL 08/25/22 08/25/22 Range/Units 05:40 05:57 RBC (4.30-5.90) m/uL Hgb (13.0-17.5) gm/dL Hct (39.0-53.0) % ABG pH (7.35-7.45) ABG HCO3 (21-25) mmol/L ABG Total CO2 (19-24) mmol/L ABG O2 Saturation (94-97) % Chloride 116 H (98-107) mmol/L BUN 29 H (9-20) mg/dL Glucose 250 H (74-99) mg/dL POC Glucose (mg/dL) 257 H (70-110) mg/dL Calcium 8.2 L (8.4-10.2) mg/dL Assessment and Plan Assessment: * Acute to subacute ischemic stroke at different territories which is suggestive of embolic/cardioembolic (CT medial aspect of the right cerebellar hemisphere, left frontal/parietal lobe deep white matter and right temporal lobe). LUCA is negative for thrombus or shunting. 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 No seizure on EEG. Mentation is unchanged and is following commands. * Acute hypoxic respiratory failure on mechanical ventilation s/p Trach * Pneumonia due due to Haemophilus. * Acute systolic CHF, pulmonary edema, ischemic cardiomyopathy, acute STEMI * Multiple left-sided enlarged lymph nodes further evaluation and workup is recommended. Findings concerning for neoplastic process until proven otherwise On CTA. We will defer to IM/critical care. * Status Post PEG tube 08/23/22 * Status post cardiac stent placement RCA 08/13/2022 * Diabetic ketoacidosis * Acute renal failure, resolved * History of asthma * Anemia Plan: * LUCA on 08/19/2022 revealed normal left radicular size with mild to moderately impaired systolic function with segmental wall motion abnormality. Severe aortic stenosis with mild aortic regurgitation. Mild to moderate MR. No shunting across the in the atrial septum. Normal appearance of the left atrial appendage. * Initial EEG on 08/17/2022 was abnormal due to background slowing of severe degree. * Repeat EEG on 08/24/2022, also showed background slowing of mild to moderate degree. No epileptiform activity was seen. * CT head was performed, which revealed acute/subacute CVA on the medial aspect of the right cerebellar hemisphere. Additional acute/subacute CVA including the left frontal/parietal lobe deep white matter and right temporal lobe. I personally reviewed CT head, agreed with the findings. * CTA of head and neck revealed no evidence of dissection of the cervical internal carotid arteries or vertebral arteries. No evidence of intracranial high-grade stenosis or intracranial aneurysm. At least 50% stenosis at the left carotid bifurcation secondary to calcified plaque. Right vertebral artery origin stenosis which is suboptimally evaluated because of beam hardening artifact. * Carotid Doppler revealed plaque formation suggesting 25% stenosis in both I Arnav. Vertebral artery flow was not demonstrated on either side. * Continue aspirin 81 mg daily and Brilinta 90 mg twice a day. * Hemoglobin A1c 9.2. Recommend optimize control of diabetes. * Telemetry monitoring rule out paroxysmal atrial fibrillation. * Fasting lipid panel with cholesterol 123, LDL 81, HDL 16.9 and triglycerides 124. Continue Lipitor 40 mg daily. * Neurologically clear for transfer to LTAC. Patient will need outpatient follow-up with neurologist after discharge.
--- NOTE | 2022-08-25 12:55 | P.PN ---
Subjective Progress Note Date: 08/25/22 Principal diagnosis: IN Patient was noted to have hyperglycemia with blood glucose ranging between 150- 250. No fevers, no overnight events. Objective - Vital Signs Vital signs: Vital Signs Temp 97.6 F 08/25/22 12:00 Pulse 87 08/25/22 12:00 Resp 24 08/25/22 12:00 BP 133/75 08/25/22 12:00 Pulse Ox 100 08/25/22 12:00 FiO2 30 08/25/22 12:00 Intake & Output 08/24/22 08/25/22 08/25/22 18:59 06:59 18:59 Intake Total 1051 1844 495 Output Total 820 700 290 Balance 231 1144 205 Weight 90 kg 92 kg Intake: IV 476 679 225 0.9 KVO 40 Dextrose 5% in Water 1, 400 640 210 000 ml @ 50 mls/hr IV . Q20H ONE Rx#:[id number] art line pressure bag 36 39 15 Tube Feeding 175 565 270 Other 400 600 Output: Urine 820 700 290 Other: Voiding Method Indwelling Catheter Indwelling Catheter Indwelling Catheter ABP, PAP, CO, CI - Last Documented Arterial Blood Pressure 145/51 - Exam General: intubated, lethargic, no acute distress Neck: trach in place HEENT: normocephalic, atraumatic, no tracheal deviation Respiratory: symmetric chest rise, no cyanosis, ventilator dependent CVS: perfusing all extremities, no distal gangrene, no pitting edema GI: soft, ND : no SPT, no CVAT, gr is present Neuro: Right sided weakness - Labs CBC & Chem 7: 08/25/22 05:40 08/25/22 05:40 Labs: Abnormal Lab Results - Last 24 Hours (Table) 08/24/22 08/25/22 08/25/22 Range/Units 17:15 00:01 04:49 RBC (4.30-5.90) m/uL Hgb (13.0-17.5) gm/dL Hct (39.0-53.0) % ABG pH (7.35-7.45) ABG HCO3 (21-25) mmol/L ABG Total CO2 (19-24) mmol/L ABG O2 Saturation (94-97) % Chloride (98-107) mmol/L BUN (9-20) mg/dL Glucose (74-99) mg/dL POC Glucose (mg/dL) 151 H 257 H 262 H (70-110) mg/dL Calcium (8.4-10.2) mg/dL 08/25/22 08/25/22 08/25/22 Range/Units 05:36 05:40 05:40 RBC 2.78 L (4.30-5.90) m/uL Hgb 8.5 L (13.0-17.5) gm/dL Hct 26.2 L (39.0-53.0) % ABG pH 7.47 H (7.35-7.45) ABG HCO3 26 H (21-25) mmol/L ABG Total CO2 27 H (19-24) mmol/L ABG O2 Saturation 98.7 H (94-97) % Chloride 116 H (98-107) mmol/L BUN 29 H (9-20) mg/dL Glucose 250 H (74-99) mg/dL POC Glucose (mg/dL) (70-110) mg/dL Calcium 8.2 L (8.4-10.2) mg/dL 08/25/22 08/25/22 08/25/22 Range/Units 05:57 12:06 12:09 RBC (4.30-5.90) m/uL Hgb (13.0-17.5) gm/dL Hct (39.0-53.0) % ABG pH (7.35-7.45) ABG HCO3 (21-25) mmol/L ABG Total CO2 (19-24) mmol/L ABG O2 Saturation (94-97) % Chloride (98-107) mmol/L BUN (9-20) mg/dL Glucose (74-99) mg/dL POC Glucose (mg/dL) 257 H 226 H 243 H (70-110) mg/dL Calcium (8.4-10.2) mg/dL Assessment and Plan Plan: Acute inferior ST segment elevated myocardial infarction Moderate to severe aortic stenosis Severe Pum HTN RVSP 50 Acute systolic heart failure Cardiogenic shock: Resolved and patient now off pressors Ventilator dependent respiratory failure -Cardiology recommendations. Continue with aspirin, Brillenta, Lipitor, metoprolol -Defer diuretics to nephrology and cardiology. Patient currently not on any diuretics -Security Architect to manage vent, currently trying pressure support. -S/p trach and PEG Acute encephalopathy likely due to acute CVA versus toxic metabolic encephalopathy Acute CVA with right sided weakness Patient off sedation CT head showed acute/subacute stroke Neurology signed off Patient on dual antiplatelet therapy as above and also on statin Carotid Dopplers negative for significant stenosis Haemophillus PNA -S/p IV Rocephin, currently d/rosalio. - pulm recs RASHMI - nephrology recs - nonobstructing calculi vs angiomyolipoma right upper pole -Resolved. 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 DVT prophylaxis: Subcu heparin Discussed with: nursing Anticipated discharge: Early next week Anticipated discharge place: LTAC after PEG and trach
--- NOTE | 2022-08-25 15:01 | P.PN ---
Subjective Progress Note Date: 08/25/22 On 08/22/2022, seeing this patient for a follow-up following his cardiac arrest. The patient remains intubated on a mechanical ventilator and the patient remains in the intensive care unit. In summary, presented with an acute respiratory failure requiring intubation mechanical ventilation. He was in acute pulmonary edema and he suffered from an acute ST segment elevation myocardial infarction and the patient underwent coronary intervention and he was found to have CAD with 100% RCA, 10-30% LAD and the patient underwent a mid RCA and insertion. The patient was also found to have moderate to severe aortic valve stenosis with a peak gradient of 60 mmHg. The echocardiogram that was done showed estimated ejection fraction of 40-45% and the patient had moderate to severe aortic valve stenosis. The patient also had an acute/subacute stroke, ischemic stroke at different territory although the possibility of an embolic/cardioembolic phenomena cannot be completely excluded. LUCA was negative for any thrombus or shunting. The patient's neurologic exam was consistent with a right hemiplegic weakness due to a left sided CVA. The patient currently is intubated on a mechanical ventilator. This morning, he is on assist-control mode at a rate of 20 with a tidal volume of 500 and FiO2 of 30% with a PEEP of 5. He came to find other the patient is off sedation for at least the past 5 days. He opens up his eyes. Quite tachypneic ventilator. He is not following commands consistently. He had right-sided weakness/hemiplegia. He was not ready for extubation. Based on that, it was made the decision to go ahead and proceed with a tracheostomy tube insertion of PEG tube insertion after having discussions with the family. The patient also having 51 today. On today's evaluation, the blood gas showed a pH of 7.51 with a pCO2 of 35 and pO2 of 87. The patient had a chest x-ray on 08/18/2022 and no chest x-rays since. The most recent chest x-ray showed some chronic interstitial changes bilaterally. Nevertheless, the patient has been asked oxygenating well. His current cardiac rhythm is sinus. His white suppositive 10.6 with a hemoglobin of 9.8. Electrolytes are normal. No renal dysfunction. Sodium is at 144 with a BUN of 35 and a creatinine of 0.8. Coagulation profile has not been checked recently. He is on a combination of aspirin and Brilinta. The patient is also on a sliding scale insulin coverage. His tube feeds on hold awaiting PEG tube insertion. In terms of his cardiac medication, other than the lower antiplatelet agent therapy, the patient is on metoprolol 25 mg by mouth 3 times a day and is also on Norvasc 10 mg by mouth daily for blood pressure control. Hydralazine is also on board at a dose of 25 mg by mouth twice a day. The patient is afebrile. No diarrhea. IV fluids are at KVO. A repeat CT angiogram was done today and the patient has no evidence of any dissection and the cervical internal carotid arteries or the vertebral arteries. Is at least 50% stenosis in the left carotid artery bifurcation secondary to calcified plaque. No evidence of any hemodynamically significant stenosis. Right vertebral artery origin had a stenosis which is suboptimally evaluated given the been hardening artifact. Multiple left-sided enlarged lymph nodes in the neck and the largest lymph node was measuring about 18 mm in size. and some atelectatic changes in the right lung and airspace disease. On 08/23/2022, seeing the patient for a follow-up. The patient currently is intubated on a mechanical ventilator. He remains off sedation. I'm a bit surprised because of his low level of consciousness. At times, I was told that he was more alert. This morning, at time of my evaluation, the patient was very difficult to arouse. He does have left-sided paralysis due to a stroke. Otherwise, he is very comfortable while being intubated on a mechanical ventilator and he is not fighting the tube at all. He is on assist-control mode at the rate of 20 with a tidal volume of 500 lymph nodes of 30% with a PEEP of 5. The blood gas showed a pH of 7.49 with a pCO2 of 33 and pO2 of 87. The patient was supposed to undergo a tracheostomy tube insertion and a PEG tube yesterday and this was not done and was rescheduled for today. Meanwhile, the patient has a net fluid balance of +393, IV fluids at KVO, the patient's tube feeds are currently on hold and earlier, he was on Nepro. The patient's blood work shows a bili 6 out of 7.8 with a hemoglobin of 8.7 and a platelet count of 385, his sodium level is at 145, bicarb is 25 with a BUN of 33 and a creatinine of 0.8 and a calcium level of 8.3. He is afebrile. He is hemodynamically stabl e. He does have a small palpable lymph node in the left neck area and this was also evident on a CAT scan of the head and neck. No other significant events otherwise for now. No cardiac arrhythmias. No change in his medication. The patient remains on a combination of aspirin and Brilinta. The patient is on Levemir insulin 20 units along with NovoLog sliding scale coverage. On today's evaluation of 08/24/2022, the patient is being seen for a follow-up. The patient has undergone a tracheostomy tube insertion and a PEG tube insertion. On today's neurologic evaluation, the patient was arousable and he was able to follow simple commands. However, if left unstimulated, he would go back to sleep and remains quite lethargic. Note that the patient had several neurology evaluation. For now, the exact cause for his underlying altered mentation or diminished level of consciousness is not clear. The patient acute/subacute ischemic stroke at different territories which obviously raises the possibility of cardioembolic phenomenon this patient. LUCA was negative for thrombus or shunting. The patient has left-sided hemiplegia/hemiparesis due to the stroke. He continues to have altered mentation which is essentially multifactorial and there is no evidence of any seizure activity on EEG. On today's evaluation, the patient remains on a mechanical ventilator. He is going to be started on tube feeds. He is on a assist control mode with a rate of 20 with a tidal volume of 450 and FiO2 of 35% with a PEEP of 5. The blood gas showed a pH of 7.45 with a pCO2 of 35 and pO2 of 105. On his blood work, the patient had a white cell count of 8.3 with a hemoglobin of 9.2, BNP 35 with a creatinine of 0.9 and his sodium level is at 146. No fever. No chills. No other significant events overnight. PEG tube site is dry clean and intact. Chest x-ray shows adequate expansion of both lungs. Some limited atelectatic changes in left lung base. Otherwise, the rest of the findings are essentially within normal limits. On 08/25/2022, the patient is neurologically unchanged. He fluctuates in his mentation and mental status. He waxes and wanes. He is doing well otherwise. He remains on a mechanical ventilator. Chest x-ray findings are stable. Afebrile and hemodynamically stable. He was done and enteral feeding for nutritional support and the patient is currently on Nepro 45 mL an hour. The mechanical ventilation is on a assist control mode at a rate of 20, tidal volume of 450, FiO2 of 30% with a PEEP of 5. The blood gas shows a pH of 7.47 with a pCO2 of 35 and pO2 of 102. I give the patient trial of pressure support mode of mechanical ventilation yesterday and he less than a pressure support of 7 and a PEEP of 5 for total of 4-5 hours. Ultimately, he was placed back on assist- control mode of mechanical ventilation. No seizure activity. He follows some simple commands. Rest or secretions are scant. No sedatives. He is on Levemir insulin and a total of the adjusted for better blood sugar control. I'm going to bring up his Levemir dose up to 30 units daily basis. Objective - Vital Signs Vital signs: Vital Signs Temp 97.6 F 08/25/22 12:00 Pulse 87 08/25/22 14:00 Resp 26 H 08/25/22 14:00 BP 147/75 08/25/22 14:00 Pulse Ox 100 08/25/22 14:00 FiO2 30 08/25/22 12:00 Intake & Output 08/24/22 08/25/22 08/25/22 18:59 06:59 18:59 Intake Total 1051 1844 656 Output Total 820 700 465 Balance 231 1144 191 Weight 90 kg 92 kg Intake: IV 476 679 251 0.9 KVO 40 Dextrose 5% in Water 1, 400 640 230 000 ml @ 50 mls/hr IV . Q20H ONE Rx#:[id number] art line pressure bag 36 39 21 Tube Feeding 175 565 405 Other 400 600 Output: Urine 820 700 465 Other: Voiding Method Indwelling Catheter Indwelling Catheter Indwelling Catheter ABP, PAP, CO, CI - Last Documented Arterial Blood Pressure 145/50 - Exam No acute distress, patient has a tracheostomy tube in place Head exam was generally normal. There was no scleral icterus or corneal arcus. Mucous membranes were moist. HEENT examination is grossly unremarkable. Neck supple. Full range of motion. No adenopathy thyromegaly or neck vein distention. Cardiovascular examination reveals regular rhythm rate. S1-S2 normal. No S3 or S4. . Heart sounds are distant. Heart rate 99 beats a minute. The patient has a very harsh systolic ejection murmur grade 4/6 mainly in the left apex Lungs reveal scattered bilateral rhonchi. No wheezes. No distinct crackles. Breath sounds equal. Abdomen soft bowel sounds are heard. No masses or tenderness.patient has a PEG tube in place and the site is dry clean and intact Extremities are intact. No cyanosis clubbing or edema. Skin is without rash or lesion. Neurologic examination reveals left-sided hemiplegia/hemiparesis. He is arousable and he follows simple commands.the patient remains quite drowsy. He opens his eyes briefly. He was are equally reactive to light. He may have a preferential gaze although does not consistent. Babinski's are mute d - Labs CBC & Chem 7: 08/25/22 05:40 08/25/22 05:40 Labs: Abnormal Lab Results - Last 24 Hours (Table) 08/24/22 08/25/22 08/25/22 Range/Units 17:15 00:01 04:49 RBC (4.30-5.90) m/uL Hgb (13.0-17.5) gm/dL Hct (39.0-53.0) % ABG pH (7.35-7.45) ABG HCO3 (21-25) mmol/L ABG Total CO2 (19-24) mmol/L ABG O2 Saturation (94-97) % Chloride (98-107) mmol/L BUN (9-20) mg/dL Glucose (74-99) mg/dL POC Glucose (mg/dL) 151 H 257 H 262 H (70-110) mg/dL Calcium (8.4-10.2) mg/dL 08/25/22 08/25/22 08/25/22 Range/Units 05:36 05:40 05:40 RBC 2.78 L (4.30-5.90) m/uL Hgb 8.5 L (13.0-17.5) gm/dL Hct 26.2 L (39.0-53.0) % ABG pH 7.47 H (7.35-7.45) ABG HCO3 26 H (21-25) mmol/L ABG Total CO2 27 H (19-24) mmol/L ABG O2 Saturation 98.7 H (94-97) % Chloride 116 H (98-107) mmol/L BUN 29 H (9-20) mg/dL Glucose 250 H (74-99) mg/dL POC Glucose (mg/dL) (70-110) mg/dL Calcium 8.2 L (8.4-10.2) mg/dL 08/25/22 08/25/22 08/25/22 Range/Units 05:57 12:06 12:09 RBC (4.30-5.90) m/uL Hgb (13.0-17.5) gm/dL Hct (39.0-53.0) % ABG pH (7.35-7.45) ABG HCO3 (21-25) mmol/L ABG Total CO2 (19-24) mmol/L ABG O2 Saturation (94-97) % Chloride (98-107) mmol/L BUN (9-20) mg/dL Glucose (74-99) mg/dL POC Glucose (mg/dL) 257 H 226 H 243 H (70-110) mg/dL Calcium (8.4-10.2) mg/dL Assessment and Plan Plan: Acute hypoxemic respiratory failure, secondary to acute systolic CHF, pulmonary edema, ischemic cardiomyopathy, and acute ST segment elevation myocardial infarction. The patient is post cardiac catheterization and stenting to the RCA. On today's evaluation, the patient has adequate oxygenation. He has good weaning parameters. His diminished level of consciousness will be one of the main factors preventing this patient from being extubated and based on that the patient was given a tracheostomy tube on 08/23/2022. Chest x-ray was noted. Blood gas was noted. The patient will be getting daily childless 1 breathing with pressure support. No change in his respiratory status in his overall pulmonary status remained stable. Chest x-ray remains stable. Moderate to Severe aortic stenosis, LV function is preserved, LV function is in order of 40-45%. LUCA was done and there is no evidence of any cardiac thrombus. Status post intubation and mechanical ventilation, on 08/13/2022. Status post stent placement, right coronary artery, 08/13/2022. Acute CVA with right-sided hemiplegia. Patient very poorly responsive and the patient is currently off sedation, computed tomography scan showing right cerebellar subacute/acute infarct as well as left frontoparietal subacute/acute infarct, and EEG showing diffuse slowing, consistent with metabolic/toxic encephalopathy. The patient is not ready for any weaning her extubation. As such, the patient is going to undergo a tracheostomy tube insertion and effective as such today. The patient has altered or alteration in his me ntation. On today's evaluation, was more lethargic and encephalopathic yet seems to be slightly more alert compared to yesterday. Following commands. Continues to have hemiparesis on the left. Neurologically unchanged Haemophilus influenzae pneumonia/tracheobronchitis. Completed course of ant ibiotics Acute diabetic ketoacidosis, recovered , and the patient is currently on Levemir insulin 20 units and NovoLog 6 units every 6 hours and a sliding scale coverage. Acute kidney injury, recovered Acute hypernatremia, recovered History of asthma. Degenerative joint disease. Fungal dermatitis, involving the right groin area. Left cervical lymphadenopathy that needs to be worked up at the later stage Plan: Keep the patient a mechanical ventilator switch this patient to a pressure support of 10 and a PEEP of 5 Continue enteral feeding for nutritional support and the patient is currently on Nepro Chest x-ray was noted and the blood gas was also noted, no major interval change Continue rest of the supportive care Avoid sedation Monitor the mental status, overall neurosystem remains unchanged CT of the brain was done yesterday and showed no significant or hemodynamically significant stenosis of the intracerebral disease Completed the course of antibiotics regarding the Haemophilus influenza Poor prognosis and will continue to follow. possible transferring this patient to select specialty within the next few days There is a critical care evaluation that was done in more than 30 minutes. Time with Patient: Greater than 30
[2022-08-25] MEDS: LOSARTAN 25 MG TAB PO SCH (16:27)
[2022-08-25 16:31] LABS: Glucose,Whole Blood 138 mg/dL (70-110)
[2022-08-25] MEDS: ATORVASTATIN 40 MG TAB PO SCH (20:00)
[2022-08-25] MEDS: HYDROmorphone 0.5 MG/0.5 ML SYRINGE IVP PRN (22:29)
[2022-08-25 23:44] LABS: Glucose,Whole Blood 150 mg/dL (70-110)
[2022-08-26 04:09] LABS: HCT 25.5 % (39.0-53.0); HGB 8.4 gm/dL (13.0-17.5); Hypochromasia Moderate; MCH 30.7 pg (25.0-35.0); MCV 92.9 fL (80.0-100.0); Mean Platelet Volume 8.4; Platelet Count 465 k/uL (150-450); Poikilocytosis Slight; RBC 2.75 m/uL (4.30-5.90); RDW 13.8 % (11.5-15.5)
[2022-08-26 04:21] LABS: African American GFR (CKD) >90 (>60 ml/min/1.73 sqM); Anion Gap 4 mmol/L; Blood Urea Nitrogen 24 mg/dL (9-20); Calcium 8.4 mg/dL (8.4-10.2); Carbon Dioxide 25 mmol/L (22-30); Chloride 114 mmol/L (98-107); Glucose 148 mg/dL (74-99); Non-African American GFR(CKD) >90 (>60 ml/min/1.73 sqM); Potassium 3.6 mmol/L (3.5-5.1); Sodium 143 mmol/L (137-145)
[2022-08-26] MEDS ORDERED: POTASSIUM BICARBONATE/CIT AC 20 MEQ TABLET.EFF NG-TUBE SCH ×2 (05:00→08:00)
[2022-08-26 05:31] LABS: ABG Base Excess 3.4 mmol/L; ABG HCO3 27 mmol/L (21-25); ABG Oxygen Saturation 98.7 % (94-97); ABG PCO2 36 mmHg (35-45); ABG PH 7.49 (7.35-7.45); ABG PO2 95 mmHg (83-108); ABG TCO2 28 mmol/L (19-24); Allen Test Performed? Yes
[2022-08-26 05:51] LABS: Glucose,Whole Blood 196 mg/dL (70-110)
[2022-08-26] MEDS: INSULIN ASPART (NovoLOG) 100 UNIT/ML VIAL SQ SCH ×6 (05:56→18:27)
[2022-08-26] MEDS: INSULIN DETEMIR (LEVEMIR) 100 UNIT/ML SYR SQ SCH (06:00)
--- NOTE | 2022-08-26 07:04 | XR ---
EXAMINATION TYPE: XR chest 1V portable DATE OF EXAM: 08/26/2022 6:25 AM COMPARISON: Chest radiographs from 08/25/2022, CT neck 08/22/2022 TECHNIQUE: XR chest 1V portable Portable AP radiograph of the chest. CLINICAL INDICATION:Male, 67 years old with history of respiratory failure; FINDINGS: Lungs/Pleura: Bibasilar atelectasis. No evidence for pneumothorax pleural effusion or focal consolida tion. Pulmonary vascularity: Unremarkable. Heart/mediastinum: Cardiomediastinal silhouette is unremarkable. Musculoskeletal: No acute osseous pathology. Other findings: None Lines/Tubes: Tracheostomy cannula tip projecting over the trachea. Right-sided PICC line with distal tip at the cavoatrial junction. IMPRESSION: 1. Similar right medial consolidation as seen on prior CT. 2. Stable support lines and tubes.
[2022-08-26] MEDS: HYDROmorphone 0.5 MG/0.5 ML SYRINGE IVP PRN ×3 (07:47→19:58)
[2022-08-26] MEDS: PANTOPRAZOLE 40 MG/10 ML VIAL IVP SCH (08:38)
[2022-08-26] MEDS: CHLORHEXIDINE GLUCONATE 15 ML CUP MUCOUS MEM SCH ×2 (08:38→20:58)
[2022-08-26] MEDS: ASPIRIN 81 MG PO SCH (08:39)
[2022-08-26] MEDS: TICAGRELOR 90 MG TAB PO SCH ×2 (08:39→20:58)
[2022-08-26] MEDS: HEPARIN SODIUM,PORCINE/PF 5,000 UNIT/0.5 ML SYRINGE SQ SCH ×2 (08:47→18:27)
[2022-08-26] MEDS: ARTIFICIAL TEARS-HYPROMELLOSE DROPS 15 ML BTL BOTH EYES SCH (09:17)
[2022-08-26] MEDS: NOREPINEPHRINE 8 MG in SODIUM CHLORIDE 0.9% 250 ML IV SCH (09:18)
--- NOTE | 2022-08-26 09:56 | P.PN ---
Subjective Progress Note Date: 08/26/22 Principal diagnosis: Respiratory failure Patient sedated on the ventilator. Tolerating tube feeds at goal. No bleeding from the tracheostomy site. Objective - Vital Signs Vital signs: Vital Signs Temp 98.8 F 08/26/22 08:00 Pulse 85 08/26/22 09:00 Resp 26 H 08/26/22 09:00 BP 104/66 08/26/22 09:00 Pulse Ox 100 08/26/22 09:00 FiO2 30 08/26/22 09:08 Intake & Output 08/25/22 08/26/22 08/26/22 18:59 06:59 18:59 Intake Total 991 741 316 Output Total 740 695 115 Balance 251 46 201 Weight 91.3 kg Intake: IV 316 156 26 Dextrose 5% in Water 1, 20 000 ml @ 10 mls/hr IV . Q24H ONE Rx#:[id number] Dextrose 5% in Water 1, 280 120 000 ml @ 50 mls/hr IV . Q20H ONE Rx#:[id number] art line pressure bag 36 36 6 Tube Feeding 675 585 90 Other 200 Output: Urine 740 695 115 Other: Voiding Method Indwelling Catheter Indwelling Catheter Indwelling Catheter ABP, PAP, CO, CI - Last Documented Arterial Blood Pressure 112/38 - Exam Abdomen: Soft, nondistended, PEG tube in place, bolster loose and slightly Tracheostomy with small amount of blood on the dressing, no active bleeding, no air leak - Labs CBC & Chem 7: 08/26/22 03:54 08/26/22 03:54 Labs: Abnormal Lab Results - Last 24 Hours (Table) 08/25/22 08/25/22 08/25/22 Range/Units 12:06 12:09 16:29 RBC (4.30-5.90) m/uL Hgb (13.0-17.5) gm/dL Hct (39.0-53.0) % Plt Count (150-450) k/uL ABG pH (7.35-7.45) ABG HCO3 (21-25) mmol/L ABG Total CO2 (19-24) mmol/L ABG O2 Saturation (94-97) % Chloride (98-107) mmol/L BUN (9-20) mg/dL Glucose (74-99) mg/dL POC Glucose (mg/dL) 226 H 243 H 138 H (70-110) mg/dL 08/25/22 08/26/22 08/26/22 Range/Units 23:42 03:54 03:54 RBC 2.75 L (4.30-5.90) m/uL Hgb 8.4 L (13.0-17.5) gm/dL Hct 25.5 L (39.0-53.0) % Plt Count 465 H (150-450) k/uL ABG pH (7.35-7.45) ABG HCO3 (21-25) mmol/L ABG Total CO2 (19-24) mmol/L ABG O2 Saturation (94-97) % Chloride 114 H (98-107) mmol/L BUN 24 H (9-20) mg/dL Glucose 148 H (74-99) mg/dL POC Glucose (mg/dL) 150 H (70-110) mg/dL 08/26/22 08/26/22 Range/Units 05:27 05:48 RBC (4.30-5.90) m/uL Hgb (13.0-17.5) gm/dL Hct (39.0-53.0) % Plt Count (150-450) k/uL ABG pH 7.49 H (7.35-7.45) ABG HCO3 27 H (21-25) mmol/L ABG Total CO2 28 H (19-24) mmol/L ABG O2 Saturation 98.7 H (94-97) % Chloride (98-107) mmol/L BUN (9-20) mg/dL Glucose (74-99) mg/dL POC Glucose (mg/dL) 196 H (70-110) mg/dL Assessment and Plan (1) Acute respiratory failure Narrative/Plan: Continue supportive care and tube feeds at goal. We will follow as needed at this time. Please reconsult if needed. Current Visit: Yes Status: Acute Code(s): J96.00 - ACUTE RESPIRATORY FAILURE, UNSP W HYPOXIA OR HYPERCAPNIA SNOMED Code(s): 87046994
--- NOTE | 2022-08-26 10:11 | P.PN ---
Subjective Progress Note Date: 08/26/22 On 08/22/2022, seeing this patient for a follow-up following his cardiac arrest. The patient remains intubated on a mechanical ventilator and the patient remains in the intensive care unit. In summary, presented with an acute respiratory failure requiring intubation mechanical ventilation. He was in acute pulmonary edema and he suffered from an acute ST segment elevation myocardial infarction and the patient underwent coronary intervention and he was found to have CAD with 100% RCA, 10-30% LAD and the patient underwent a mid RCA and insertion. The patient was also found to have moderate to severe aortic valve stenosis with a peak gradient of 60 mmHg. The echocardiogram that was done showed estimated ejection fraction of 40-45% and the patient had moderate to severe aortic valve stenosis. The patient also had an acute/subacute stroke, ischemic stroke at different territory although the possibility of an embolic/cardioembolic phenomena cannot be completely excluded. LUCA was negative for any thrombus or shunting. The patient's neurologic exam was consistent with a right hemiplegic weakness due to a left sided CVA. The patient currently is intubated on a mechanical ventilator. This morning, he is on assist-control mode at a rate of 20 with a tidal volume of 500 and FiO2 of 30% with a PEEP of 5. He came to find other the patient is off sedation for at least the past 5 days. He opens up his eyes. Quite tachypneic ventilator. He is not following commands consistently. He had right-sided weakness/hemiplegia. He was not ready for extubation. Based on that, it was made the decision to go ahead and proceed with a tracheostomy tube insertion of PEG tube insertion after having discussions with the family. The patient also having 51 today. On today's evaluation, the blood gas showed a pH of 7.51 with a pCO2 of 35 and pO2 of 87. The patient had a chest x-ray on 08/18/2022 and no chest x-rays since. The most recent chest x-ray showed some chronic interstitial changes bilaterally. Nevertheless, the patient has been asked oxygenating well. His current cardiac rhythm is sinus. His white suppositive 10.6 with a hemoglobin of 9.8. Electrolytes are normal. No renal dysfunction. Sodium is at 144 with a BUN of 35 and a creatinine of 0.8. Coagulation profile has not been checked recently. He is on a combination of aspirin and Brilinta. The patient is also on a sliding scale insulin coverage. His tube feeds on hold awaiting PEG tube insertion. In terms of his cardiac medication, other than the lower antiplatelet agent therapy, the patient is on metoprolol 25 mg by mouth 3 times a day and is also on Norvasc 10 mg by mouth daily for blood pressure control. Hydralazine is also on board at a dose of 25 mg by mouth twice a day. The patient is afebrile. No diarrhea. IV fluids are at KVO. A repeat CT angiogram was done today and the patient has no evidence of any dissection and the cervical internal carotid arteries or the vertebral arteries. Is at least 50% stenosis in the left carotid artery bifurcation secondary to calcified plaque. No evidence of any hemodynamically significant stenosis. Right vertebral artery origin had a stenosis which is suboptimally evaluated given the been hardening artifact. Multiple left-sided enlarged lymph nodes in the neck and the largest lymph node was measuring about 18 mm in size. and some atelectatic changes in the right lung and airspace disease. On 08/23/2022, seeing the patient for a follow-up. The patient currently is intubated on a mechanical ventilator. He remains off sedation. I'm a bit surprised because of his low level of consciousness. At times, I was told that he was more alert. This morning, at time of my evaluation, the patient was very difficult to arouse. He does have left-sided paralysis due to a stroke. Otherwise, he is very comfortable while being intubated on a mechanical ventilator and he is not fighting the tube at all. He is on assist-control mode at the rate of 20 with a tidal volume of 500 lymph nodes of 30% with a PEEP of 5. The blood gas showed a pH of 7.49 with a pCO2 of 33 and pO2 of 87. The patient was supposed to undergo a tracheostomy tube insertion and a PEG tube yesterday and this was not done and was rescheduled for today. Meanwhile, the patient has a net fluid balance of +393, IV fluids at KVO, the patient's tube feeds are currently on hold and earlier, he was on Nepro. The patient's blood work shows a bili 6 out of 7.8 with a hemoglobin of 8.7 and a platelet count of 385, his sodium level is at 145, bicarb is 25 with a BUN of 33 and a creatinine of 0.8 and a calcium level of 8.3. He is afebrile. He is hemodynamically stabl e. He does have a small palpable lymph node in the left neck area and this was also evident on a CAT scan of the head and neck. No other significant events otherwise for now. No cardiac arrhythmias. No change in his medication. The patient remains on a combination of aspirin and Brilinta. The patient is on Levemir insulin 20 units along with NovoLog sliding scale coverage. On today's evaluation of 08/24/2022, the patient is being seen for a follow-up. The patient has undergone a tracheostomy tube insertion and a PEG tube insertion. On today's neurologic evaluation, the patient was arousable and he was able to follow simple commands. However, if left unstimulated, he would go back to sleep and remains quite lethargic. Note that the patient had several neurology evaluation. For now, the exact cause for his underlying altered mentation or diminished level of consciousness is not clear. The patient acute/subacute ischemic stroke at different territories which obviously raises the possibility of cardioembolic phenomenon this patient. LUCA was negative for thrombus or shunting. The patient has left-sided hemiplegia/hemiparesis due to the stroke. He continues to have altered mentation which is essentially multifactorial and there is no evidence of any seizure activity on EEG. On today's evaluation, the patient remains on a mechanical ventilator. He is going to be started on tube feeds. He is on a assist control mode with a rate of 20 with a tidal volume of 450 and FiO2 of 35% with a PEEP of 5. The blood gas showed a pH of 7.45 with a pCO2 of 35 and pO2 of 105. On his blood work, the patient had a white cell count of 8.3 with a hemoglobin of 9.2, BNP 35 with a creatinine of 0.9 and his sodium level is at 146. No fever. No chills. No other significant events overnight. PEG tube site is dry clean and intact. Chest x-ray shows adequate expansion of both lungs. Some limited atelectatic changes in left lung base. Otherwise, the rest of the findings are essentially within normal limits. On 08/25/2022, the patient is neurologically unchanged. He fluctuates in his mentation and mental status. He waxes and wanes. He is doing well otherwise. He remains on a mechanical ventilator. Chest x-ray findings are stable. Afebrile and hemodynamically stable. He was done and enteral feeding for nutritional support and the patient is currently on Nepro 45 mL an hour. The mechanical ventilation is on a assist control mode at a rate of 20, tidal volume of 450, FiO2 of 30% with a PEEP of 5. The blood gas shows a pH of 7.47 with a pCO2 of 35 and pO2 of 102. I give the patient trial of pressure support mode of mechanical ventilation yesterday and he less than a pressure support of 7 and a PEEP of 5 for total of 4-5 hours. Ultimately, he was placed back on assist- control mode of mechanical ventilation. No seizure activity. He follows some simple commands. Rest or secretions are scant. No sedatives. He is on Levemir insulin and a total of the adjusted for better blood sugar control. I'm going to bring up his Levemir dose up to 30 units daily basis. On 08/26/2022, neurologically still unchanged. The patient is quite synchronous the mechanical ventilator. Is receiving daily tries with pressure support. Today, he does not have any major rest or secretions. He is on assist-control mode at a rate of 20 with a tidal volume of 450 and FiO2 of 30% with a PEEP of 5. He was placed on a pressure support of 10 and a PEEP of 5 yesterday for several hours. His tracheostomy tube is in a good location. The patient remains hemodynamically stable. The patient is receiving enteral feeding for nutritional support and is currently on Nepro at the rate of 45 mL an hour. He remains on Levemir insulin at 30 units along with a sliding scale coverage. His chest x-ray is similar compared to yesterday. There is no airspace disease. Some atelectatic change in the lung bases bilaterally. No significant pleural effusion. No other major abnormalities. PH is at 7.49 with a pCO2 of 36 and pO2 of 95. The echoes at 7 with a hemoglobin of 8.4 and a platelet count of 465. The in his 24 with a creatinine of 0.7. No other issues for now. Objective - Vital Signs Vital signs: Vital Signs Temp 98.8 F 08/26/22 08:00 Pulse 85 08/26/22 09:00 Resp 26 H 08/26/22 09:00 BP 104/66 08/26/22 09:00 Pulse Ox 100 08/26/22 09:00 FiO2 30 08/26/22 09:08 Intake & Output 08/25/22 08/26/22 08/26/22 18:59 06:59 18:59 Intake Total 991 741 316 Output Total 740 695 115 Balance 251 46 201 Weight 91.3 kg Intake: IV 316 156 26 Dextrose 5% in Water 1, 20 000 ml @ 10 mls/hr IV . Q24H ONE Rx#:[id number] Dextrose 5% in Water 1, 280 120 000 ml @ 50 mls/hr IV . Q20H ONE Rx#:[id number] art line pressure bag 36 36 6 Tube Feeding 675 585 90 Other 200 Output: Urine 740 695 115 Other: Voiding Method Indwelling Catheter Indwelling Catheter Indwelling Catheter ABP, PAP, CO, CI - Last Documented Arterial Blood Pressure 112/38 - Exam No acute distress, patient has a tracheostomy tube in place Head exam was generally normal. There was no scleral icterus or corneal arcus. Mucous membranes were moist. HEENT examination is grossly unremarkable. Neck supple. Full range of motion. No adenopathy thyromegaly or neck vein distention. Cardiovascular examination reveals regular rhythm rate. S1-S2 normal. No S3 or S4. . Heart sounds are distant. Heart rate 99 beats a minute. The patient has a very harsh systolic ejection murmur grade 4/6 mainly in the left apex Lungs reveal scattered bilateral rhonchi. No wheezes. No distinct crackles. Breath sounds equal. Abdomen soft bowel sounds are heard. No masses or tenderness.patient has a PEG tube in place and the site is dry clean and intact Extremities are intact. No cyanosis clubbing or edema. Skin is without rash or lesion. Neurologic examination reveals left-sided hemiplegia/hemiparesis. He is arousable and he follows simple commands.the patient remains quite drowsy. He opens his eyes briefly. He was are equally reactive to light. He may have a preferential gaze although does not consistent. Babinski's are mute d - Labs CBC & Chem 7: 08/26/22 03:54 08/26/22 03:54 Labs: Abnormal Lab Results - Last 24 Hours (Table) 08/25/22 08/25/22 08/25/22 Range/Units 12:06 12:09 16:29 RBC (4.30-5.90) m/uL Hgb (13.0-17.5) gm/dL Hct (39.0-53.0) % Plt Count (150-450) k/uL ABG pH (7.35-7.45) ABG HCO3 (21-25) mmol/L ABG Total CO2 (19-24) mmol/L ABG O2 Saturation (94-97) % Chloride (98-107) mmol/L BUN (9-20) mg/dL Glucose (74-99) mg/dL POC Glucose (mg/dL) 226 H 243 H 138 H (70-110) mg/dL 08/25/22 08/26/22 08/26/22 Range/Units 23:42 03:54 03:54 RBC 2.75 L (4.30-5.90) m/uL Hgb 8.4 L (13.0-17.5) gm/dL Hct 25.5 L (39.0-53.0) % Plt Count 465 H (150-450) k/uL ABG pH (7.35-7.45) ABG HCO3 (21-25) mmol/L ABG Total CO2 (19-24) mmol/L ABG O2 Saturation (94-97) % Chloride 114 H (98-107) mmol/L BUN 24 H (9-20) mg/dL Glucose 148 H (74-99) mg/dL POC Glucose (mg/dL) 150 H (70-110) mg/dL 08/26/22 08/26/22 Range/Units 05:27 05:48 RBC (4.30-5.90) m/uL Hgb (13.0-17.5) gm/dL Hct (39.0-53.0) % Plt Count (150-450) k/uL ABG pH 7.49 H (7.35-7.45) ABG HCO3 27 H (21-25) mmol/L ABG Total CO2 28 H (19-24) mmol/L ABG O2 Saturation 98.7 H (94-97) % Chloride (98-107) mmol/L BUN (9-20) mg/dL Glucose (74-99) mg/dL POC Glucose (mg/dL) 196 H (70-110) mg/dL Assessment and Plan Plan: Acute hypoxemic respiratory failure, secondary to acute systolic CHF, pulmonary edema, ischemic cardiomyopathy, and acute ST segment elevation myocardial infarction. The patient is post cardiac catheterization and stenting to the RCA. On today's evaluation, the patient has adequate oxygenation. He has good weaning parameters. His diminished level of consciousness will be one of the main factors preventing this patient from being extubated and based on that the patient was given a tracheostomy tube on 08/23/2022. Chest x-ray was noted. Blood gas was noted. The patient will be getting daily childless 1 breathing with pressure support. No change in his respiratory status in his overall pulmonary status remained stable. Chest x-ray remains stable. Moderate to Severe aortic stenosis, LV function is preserved, LV function is in order of 40-45%. LUCA was done and there is no evidence of any cardiac thrombus. Status post intubation and mechanical ventilation, on 08/13/2022. Status post stent placement, right coronary artery, 08/13/2022. Acute CVA with right-sided hemiplegia. Patient very poorly responsive and the patient is currently off sedation, computed tomography scan showing right cerebellar subacute/acute infarct as well as left frontoparietal subacute/acute infarct, and EEG showing diffuse slowing, consistent with metabolic/toxic encephalopathy. The patient is not ready for any weaning her extubation. As such, the patient is going to undergo a tracheostomy tube insertion and effective as such today. The patient has altered or alteration in his mentation. On today's evaluation, was more lethargic and encephalopathic yet seems to be slightly more alert compared to yesterday. Following commands. Continues to have hemiparesis on the left. Neurologically unchanged Haemophilus influenzae pneumonia/tracheobronchitis. Completed course of antibiotics Acute diabetic ketoacidosis, recovered , and the patient is currently on Levemir insulin 20 units and NovoLog 6 units every 6 hours and a sliding scale coverage. Acute kidney injury, recovered Acute hypernatremia, recovered History of asthma. Degenerative joint disease. Fungal dermatitis, involving the right groin area. Left cervical lymphadenopathy that needs to be worked up at the later stage Plan: Keep the patient a mechanical ventilator switch this patient to a pressure support of 10 and a PEEP of 5, and the patient is tolerating daily trials of pressure support and he less in for a total of 4 hours yesterday Continue enteral feeding for nutritional support and the patient is currently on Nepro at the rate of 45 mL an hour Chest x-ray was noted and the blood gas was also noted, no major interval change Continue rest of the supportive care Avoid sedation Monitor the mental status, overall neurosystem remains unchanged CT of the brain was done yesterday and showed no significant or hemodynamically significant stenosis of the intracerebral disease Completed the course of antibiotics regarding the Haemophilus influenza Poor prognosis and will continue to follow. possible transferring this patient to select specialty within the next few days There is a critical care evaluation that was done in more than 30 minutes. Time with Patient: Greater than 30
[2022-08-26] MEDS: amLODIPine 10 MG TAB PO SCH (10:30)
[2022-08-26] MEDS: METOPROLOL SUCCINATE (ER) 50 MG TAB.ER.24H PO SCH (10:31)
--- NOTE | 2022-08-26 11:55 | P.PN ---
Subjective Progress Note Date: 08/26/22 Principal diagnosis: IA He was placed on a pressure support of 10 and a PEEP of 5 yesterday for several hours, it was tolerated, then switched back to the vent. He remains hemodyn amically stable. The patient is receiving enteral feeding, is currently on Nepro. Objective - Vital Signs Vital signs: Vital Signs Temp 98.8 F 08/26/22 08:00 Pulse 88 08/26/22 11:00 Resp 25 H 08/26/22 11:00 BP 102/57 08/26/22 10:00 Pulse Ox 100 08/26/22 11:00 FiO2 30 08/26/22 11:38 Intake & Output 08/25/22 08/26/22 08/26/22 18:59 06:59 18:59 Intake Total 991 741 432 Output Total 740 695 220 Balance 251 46 212 Weight 91.3 kg Intake: IV 316 156 52 Dextrose 5% in Water 1, 40 000 ml @ 10 mls/hr IV . Q24H ONE Rx#:[id number] Dextrose 5% in Water 1, 280 120 000 ml @ 50 mls/hr IV . Q20H ONE Rx#:[id number] art line pressure bag 36 36 12 Tube Feeding 675 585 180 Other 200 Output: Urine 740 695 220 Other: Voiding Method Indwelling Catheter Indwelling Catheter Indwelling Catheter ABP, PAP, CO, CI - Last Documented Arterial Blood Pressure 151/47 - Exam General: intubated, lethargic, no acute distress Neck: trach in place HEENT: normocephalic, atraumatic, no tracheal deviation Respiratory: symmetric chest rise, no cyanosis, ventilator dependent CVS: perfusing all extremities, no distal gangrene, no pitting edema GI: soft, ND : no SPT, no CVAT, gr is present Neuro: Right sided weakness - Labs CBC & Chem 7: 08/26/22 03:54 08/26/22 03:54 Labs: Abnormal Lab Results - Last 24 Hours (Table) 08/25/22 08/25/22 08/25/22 Range/Units 12:06 12:09 16:29 RBC (4.30-5.90) m/uL Hgb (13.0-17.5) gm/dL Hct (39.0-53.0) % Plt Count (150-450) k/uL ABG pH (7.35-7.45) ABG HCO3 (21-25) mmol/L ABG Total CO2 (19-24) mmol/L ABG O2 Saturation (94-97) % Chloride (98-107) mmol/L BUN (9-20) mg/dL Glucose (74-99) mg/dL POC Glucose (mg/dL) 226 H 243 H 138 H (70-110) mg/dL 08/25/22 08/26/22 08/26/22 Range/Units 23:42 03:54 03:54 RBC 2.75 L (4.30-5.90) m/uL Hgb 8.4 L (13.0-17.5) gm/dL Hct 25.5 L (39.0-53.0) % Plt Count 465 H (150-450) k/uL ABG pH (7.35-7.45) ABG HCO3 (21-25) mmol/L ABG Total CO2 (19-24) mmol/L ABG O2 Saturation (94-97) % Chloride 114 H (98-107) mmol/L BUN 24 H (9-20) mg/dL Glucose 148 H (74-99) mg/dL POC Glucose (mg/dL) 150 H (70-110) mg/dL 08/26/22 08/26/22 Range/Units 05:27 05:48 RBC (4.30-5.90) m/uL Hgb (13.0-17.5) gm/dL Hct (39.0-53.0) % Plt Count (150-450) k/uL ABG pH 7.49 H (7.35-7.45) ABG HCO3 27 H (21-25) mmol/L ABG Total CO2 28 H (19-24) mmol/L ABG O2 Saturation 98.7 H (94-97) % Chloride (98-107) mmol/L BUN (9-20) mg/dL Glucose (74-99) mg/dL POC Glucose (mg/dL) 196 H (70-110) mg/dL Assessment and Plan Plan: Acute inferior ST segment elevated myocardial infarction Moderate to severe aortic stenosis Severe Pum HTN RVSP 50 Acute systolic heart failure Cardiogenic shock: Resolved and patient now off pressors Ventilator dependent respiratory failure -Cardiology recommendations. Continue with aspirin, Brillenta, Lipitor, metoprolol -Defer diuretics to nephrology and cardiology. Patient currently not on any diuretics -Turf Keeper to manage vent, currently trying pressure support. -S/p trach and PEG Acute encephalopathy likely due to acute CVA versus toxic metabolic encephalopathy Acute CVA with right sided weakness Patient off sedation CT head showed acute/subacute stroke Neurology signed off Patient on dual antiplatelet therapy as above and also on statin Carotid Dopplers negative for significant stenosis Haemophillus PNA -S/p IV Rocephin, currently d/rosalio. - pulm recs RASHMI - nephrology recs - nonobstructing calculi vs angiomyolipoma right upper pole -Resolved. Nephrology signed off Hypernatremia Water flushes through NG tube Trend BMP Resolved DM 2 with hyperglycemia with neuropathy DKA resolved - BG currently better on levemir 30 units, Novolog 6 q6 + sliding scale - hold metformin and Glucotrol -Hemoglobin A1c is 9.2 Chronic: Asthma OA Eczema Patient is DNR/DNI. DVT prophylaxis: Subcu heparin Discussed with: nursing Anticipated discharge: Early next week Anticipated discharge place: LTAC after PEG and trach
[2022-08-26 12:03] LABS: Glucose,Whole Blood 193 mg/dL (70-110)
[2022-08-26 18:10] LABS: Glucose,Whole Blood 169 mg/dL (70-110)
[2022-08-26] MEDS: LOSARTAN 25 MG TAB PO SCH (18:24)
[2022-08-26] MEDS: ATORVASTATIN 40 MG TAB PO SCH (20:58)
--- NOTE | 2022-08-26 23:06 | P.PN ---
Subjective Progress Note Date: 08/26/22 09/25/2022: Patient was seen for a follow-up. Patient clinically unchanged as compared to yesterday. Patient is still having greenish mucus from the track site. Patient continues to be groggy. Patient not on any sedation. Patient has tracheostomy on a mechanical ventilator. Also has PEG tube. 08/25/2022: Patient was initially seen by myself on 08/17/2022. Please refer to my note for details. Subsequently patient was seen by Dr. Ab Vega over the next week. Please refer to his notes for details as well. Came to see patient for a follow-up. Patient has bilateral hemispheric strokes. Patient's LUCA was negative. CTA of head and neck were negative. Patient now has track and PEG tube. Repeat EEG was negative for any seizure activity. There was mild to moderate encephalopathy. Patient currently on aspirin 81 mg daily and Brilinta 90 mg twice a day. Patient at present laying comfortably in the bed. Patient has tracheostomy tube. No distress. Please refer to examination below. SOME OF THE WORK-UP DURING THIS HOSPITAL VISIT CONSISTED OF: Lipid panels triglyceride 124, cholesterol 123, LDLs 81 and HDL is a 60 Hemoglobin A1c 9.2. White virus to start nondetected CT head is reported as acute/subacute CVA on the medial aspect of the right cerebellar hemisphere. Additional acute/subacute CVA including the left frontal/parietal lobe deep white matter and right temporal lobe Repeat CT head on 08/18/22: Overall similar examination from the yesterday with acute/subacute CVA in the medial aspect of the right cerebellar hemisphere, left frontal parietal lobe deep white matter and right temporal lobe. No hemorrhagic conversion. Different vascular territories suggest embolic phenomena. Most recent CT head on 08/21/2022: It is reported as similar evolving subacute infarct anterior pole right temporal and medial right cerebellar hemisphere. Either subacute or more chronic infarct left frontal parietal junction superiorly. Background moderate burden of chronic small vessel ischemic disease. No hemorrhagic transformation, midline shift or herniation. Similar mild hydrocephalus. There may be due to central atrophy. Correlate exclude a component of NPH. Possible acute right sided ethmoid sinusitis. 2-D echo from 08/13/2022 revealed mildly increase septal wall thickness. Left ventricular systolic function is decreased at 40-45%. Inferior hypokinesis. Moderate to severe aortic stenosis. EEG was performed, which was abnormal due to background slowing of severe degree. This is suggestive of generalized cerebral dysfunction as can be seen with toxic metabolic encephalopathy or due to diffuse structural brain abnormality. Clinical correlation is recommended. No epileptiform activity was seen. Carotid duplex is reported as there is plaque formation in image and measurements suggest 25% stenosis in both internal carotid arteries. Vertebral artery flow was not demonstrated on this exam. Transesophageal echocardiogram was reported as normal size with mild mildly impaired systolic function with the segmental wall motion abnormality. Ejection fraction of 40-45%. Severe aortic stenosis with mild aortic regurgitation. Mild to moderate mitral regurgitation. No shunting across the intra-atrial septum. Normal appearance of left atrial appendage. CTA head and neck is reported as no evidence of dissection of cervical internal carotid arteries or vertebral arteries. No evidence of intracranial high-grade stenosis or intracranial aneurysm. At least 50% stenosis at the left carotid bifurcation secondary to calcified plaque. No evidence of hemodynamic significant stenosis of the right carotid bifurcation. Right vertebral origin stenosis which is suboptimally evaluated given beam hardening artifact from the patient's shoulders. Multiple left-sided enlarged lymph nodes further evaluation and workup is recommended. Findings concerning for neoplastic process until proven otherwise. Right upper lobe atelectasis versus developing airspace disease. I would defer to internal medicine/pulmonary medicine for abnormal enlarged lymph nodes. Objective - Vital Signs Vital signs: Vital Signs Temp 99.1 F 08/26/22 16:00 Pulse 76 08/26/22 16:00 Resp 24 08/26/22 16:00 BP 127/66 08/26/22 16:00 Pulse Ox 100 08/26/22 16:00 FiO2 30 08/26/22 16:44 Intake & Output 08/25/22 08/26/22 08/26/22 18:59 06:59 18:59 Intake Total 641 535 4195 Output Total 740 695 495 Balance 251 46 627 Weight 91.3 kg 91.3 kg Intake: IV 316 156 117 Dextrose 5% in Water 1, 90 000 ml @ 10 mls/hr IV . Q24H ONE Rx#:[id number] Dextrose 5% in Water 1, 280 120 000 ml @ 50 mls/hr IV . Q20H ONE Rx#:[id number] art line pressure bag 36 36 27 Tube Feeding 675 585 405 Other 600 Output: Urine 740 695 495 Other: Voiding Method Indwelling Catheter Indwelling Catheter Indwelling Catheter ABP, PAP, CO, CI - Last Documented Arterial Blood Pressure 114/40 - Exam GENERAL: The patient is lying in bed and does not appear in acute distress. LUNG:Trach on ventilator. Abdomen: +ve PEG tube. NEUROLOGICAL: Limited because of patient's condition. Higher mental function: Is drowsy but following command (squeezing left hand, and wiggling his left foot very actively on command). Cranial nerves: He open his eyes to voice. Pupils are round, equal and reactive to light. He is tracking to right and left. No appreciable facial weakness. Is breathing over the vent. Oculocephalics and corneals are present. Rest is limited. Motor: The strength is limited. Patient strength is at least 4- in the left lisw but no movement in the right lisw. Patient wiggles his left foot at the toes and somewhat at the ankle very actively but no movement on the right foot. Decrease tone over the right. Cerebellum: Unable to assess. Sensation: Withdrawal of the right lower to painful stimuli. - Labs CBC & Chem 7: 08/26/22 03:54 08/26/22 12:27 Labs: Abnormal Lab Results - Last 24 Hours (Table) 08/25/22 08/26/22 08/26/22 Range/Units 23:42 03:54 03:54 RBC 2.75 L (4.30-5.90) m/uL Hgb 8.4 L (13.0-17.5) gm/dL Hct 25.5 L (39.0-53.0) % Plt Count 465 H (150-450) k/uL ABG pH (7.35-7.45) ABG HCO3 (21-25) mmol/L ABG Total CO2 (19-24) mmol/L ABG O2 Saturation (94-97) % Chloride 114 H (98-107) mmol/L BUN 24 H (9-20) mg/dL Glucose 148 H (74-99) mg/dL POC Glucose (mg/dL) 150 H (70-110) mg/dL 08/26/22 08/26/22 08/26/22 Range/Units 05:27 05:48 12:01 RBC (4.30-5.90) m/uL Hgb (13.0-17.5) gm/dL Hct (39.0-53.0) % Plt Count (150-450) k/uL ABG pH 7.49 H (7.35-7.45) ABG HCO3 27 H (21-25) mmol/L ABG Total CO2 28 H (19-24) mmol/L ABG O2 Saturation 98.7 H (94-97) % Chloride (98-107) mmol/L BUN (9-20) mg/dL Glucose (74-99) mg/dL POC Glucose (mg/dL) 196 H 193 H (70-110) mg/dL Assessment and Plan Assessment: * Acute to subacute ischemic stroke at different territories which is suggestive of embolic/cardioembolic (CT medial aspect of the right cerebellar hemisphere, left frontal/parietal lobe deep white matter and right temporal lobe). LUCA is negative for thrombus or shunting. * Right hemiplegic and significant left hemiparesis due to stroke * Altered mental status due to multifactorial: Due to acute stroke, toxic-metabolic encephalopathy. No seizure on EEG. Mentation is unchanged and is following commands. * Acute hypoxic respiratory failure on mechanical ventilation s/p Trach * Pneumonia due due to Haemophilus. * Acute systolic CHF, pulmonary edema, ischemic cardiomyopathy, acute STEMI * Multiple left-sided enlarged lymph nodes further evaluation and workup is recommended. Findings concerning for neoplastic process until proven otherwise On CTA. We will defer to IM/critical care. * Status Post PEG tube 08/23/22 * Status post cardiac stent placement RCA 08/13/2022 * Diabetic ketoacidosis * Acute renal failure, resolved * History of asthma * Anemia Plan: * LUCA on 08/19/2022 revealed normal left radicular size with mild to moderately impaired systolic function with segmental wall motion abnormality. Severe aortic stenosis with mild aortic regurgitation. Mild to moderate MR. No shunting across the in the atrial septum. Normal appearance of the left atr ial appendage. We will defer to cardiology for aortic stenosis * Initial EEG on 08/17/2022 was abnormal due to background slowing of severe degree. * Repeat EEG on 08/24/2022, also showed background slowing of mild to moderate degree. No epileptiform activity was seen. * CT head was performed, which revealed acute/subacute CVA on the medial aspect of the right cerebellar hemisphere. Additional acute/subacute CVA including the left frontal/parietal lobe deep white matter and right temporal lobe. I personally reviewed CT head, agreed with the findings. * CTA of head and neck revealed no evidence of dissection of the cervical internal carotid arteries or vertebral arteries. No evidence of intracranial high-grade stenosis or intracranial aneurysm. At least 50% stenosis at the left carotid bifurcation secondary to calcified plaque. Right vertebral artery origin stenosis which is suboptimally evaluated because of beam hardening artifact. * Carotid Doppler revealed plaque formation suggesting 25% stenosis in both ICAs. Vertebral artery flow was not demonstrated on either side. * Continue aspirin 81 mg daily and Brilinta 90 mg twice a day. * Hemoglobin A1c 9.2. Recommend optimize control of diabetes. * Consider event monitoring after discharge to rule out PAF. * Fasting lipid panel with cholesterol 123, LDL 81, HDL 16.9 and triglycerides 124. Continue Lipitor 40 mg daily. * Neurologically clear for transfer to [facility]. Patient will need outpatient follow-up with neurologist after discharge.
[2022-08-27 00:50] LABS: Glucose,Whole Blood 198 mg/dL (70-110)
[2022-08-27] MEDS: HEPARIN SODIUM,PORCINE/PF 5,000 UNIT/0.5 ML SYRINGE SQ SCH ×3 (00:54→16:59)
[2022-08-27] MEDS: INSULIN ASPART (NovoLOG) 100 UNIT/ML VIAL SQ SCH ×8 (00:55→18:08)
[2022-08-27] MEDS: HYDROmorphone 0.5 MG/0.5 ML SYRINGE IVP PRN ×3 (05:14→22:36)
[2022-08-27 05:24] LABS: Glucose,Whole Blood 165 mg/dL (70-110)
[2022-08-27 05:39] LABS: HCT 25.8 % (39.0-53.0); Hypochromasia Moderate; MCH 32.1 pg (25.0-35.0); MCHC 34.8 g/dL (31.0-37.0); MCV 92.1 fL (80.0-100.0); Mean Platelet Volume 8.5; Platelet Count 424 k/uL (150-450); Poikilocytosis Slight; RDW 13.9 % (11.5-15.5); WBC 6.9 k/uL (3.8-10.6)
[2022-08-27 05:49] LABS: Potassium 3.7 mmol/L (3.5-5.1)
[2022-08-27 05:50] LABS: African American GFR (CKD) >90 (>60 ml/min/1.73 sqM); Anion Gap 4 mmol/L; Blood Urea Nitrogen 19 mg/dL (9-20); Calcium 8.3 mg/dL (8.4-10.2); Carbon Dioxide 25 mmol/L (22-30); Chloride 110 mmol/L (98-107); Glucose 156 mg/dL (74-99); Non-African American GFR(CKD) >90 (>60 ml/min/1.73 sqM); Sodium 139 mmol/L (137-145)
[2022-08-27 05:56] LABS: ABG Base Excess 2.3 mmol/L; ABG HCO3 26 mmol/L (21-25); ABG Oxygen Saturation 98.7 % (94-97); ABG PCO2 37 mmHg (35-45); ABG PH 7.46 (7.35-7.45); ABG PO2 96 mmHg (83-108); ABG TCO2 27 mmol/L (19-24)
[2022-08-27 05:59] LABS: Allen Test Performed? No
[2022-08-27] MEDS: INSULIN DETEMIR (LEVEMIR) 100 UNIT/ML SYR SQ SCH (06:42)
[2022-08-27] MEDS ORDERED: POTASSIUM BICARBONATE/CIT AC 20 MEQ TABLET.EFF NG-TUBE SCH (07:00)
[2022-08-27] MEDS: METOPROLOL SUCCINATE (ER) 50 MG TAB.ER.24H PO SCH (08:41)
[2022-08-27] MEDS: ASPIRIN 81 MG PO SCH (08:41)
[2022-08-27] MEDS: amLODIPine 10 MG TAB PO SCH (08:41)
[2022-08-27] MEDS: CHLORHEXIDINE GLUCONATE 15 ML CUP MUCOUS MEM SCH ×2 (08:41→21:13)
[2022-08-27] MEDS: TICAGRELOR 90 MG TAB PO SCH ×2 (08:42→21:13)
[2022-08-27] MEDS: PANTOPRAZOLE 40 MG/10 ML VIAL IVP SCH (08:42)
--- NOTE | 2022-08-27 11:14 | P.PN ---
Subjective Progress Note Date: 08/27/22 On 08/22/2022, seeing this patient for a follow-up following his cardiac arrest. The patient remains intubated on a mechanical ventilator and the patient remains in the intensive care unit. In summary, presented with an acute respiratory failure requiring intubation mechanical ventilation. He was in acute pulmonary edema and he suffered from an acute ST segment elevation myocardial infarction and the patient underwent coronary intervention and he was found to have CAD with 100% RCA, 10-30% LAD and the patient underwent a mid RCA and insertion. The patient was also found to have moderate to severe aortic valve stenosis with a peak gradient of 60 mmHg. The echocardiogram that was done showed estimated ejection fraction of 40-45% and the patient had moderate to severe aortic valve stenosis. The patient also had an acute/subacute stroke, ischemic stroke at different territory although the possibility of an embolic/cardioembolic phenomena cannot be completely excluded. LUCA was negative for any thrombus or shunting. The patient's neurologic exam was consistent with a right hemiplegic weakness due to a left sided CVA. The patient currently is intubated on a mechanical ventilator. This morning, he is on assist-control mode at a rate of 20 with a tidal volume of 500 and FiO2 of 30% with a PEEP of 5. He came to find other the patient is off sedation for at least the past 5 days. He opens up his eyes. Quite tachypneic ventilator. He is not following commands consistently. He had right-sided weakness/hemiplegia. He was not ready for extubation. Based on that, it was made the decision to go ahead and proceed with a tracheostomy tube insertion of PEG tube insertion after having discussions with the family. The patient also having 51 today. On today's evaluation, the blood gas showed a pH of 7.51 with a pCO2 of 35 and pO2 of 87. The patient had a chest x-ray on 08/18/2022 and no chest x-rays since. The most recent chest x-ray showed some chronic interstitial changes bilaterally. Nevertheless, the patient has been asked oxygenating well. His current cardiac rhythm is sinus. His white suppositive 10.6 with a hemoglobin of 9.8. Electrolytes are normal. No renal dysfunction. Sodium is at 144 with a BUN of 35 and a creatinine of 0.8. Coagulation profile has not been checked recently. He is on a combination of aspirin and Brilinta. The patient is also on a sliding scale insulin coverage. His tube feeds on hold awaiting PEG tube insertion. In terms of his cardiac medication, other than the lower antiplatelet agent therapy, the patient is on metoprolol 25 mg by mouth 3 times a day and is also on Norvasc 10 mg by mouth daily for blood pressure control. Hydralazine is also on board at a dose of 25 mg by mouth twice a day. The patient is afebrile. No diarrhea. IV fluids are at KVO. A repeat CT angiogram was done today and the patient has no evidence of any dissection and the cervical internal carotid arteries or the vertebral arteries. Is at least 50% stenosis in the left carotid artery bifurcation secondary to calcified plaque. No evidence of any hemodynamically significant stenosis. Right vertebral artery origin had a stenosis which is suboptimally evaluated given the been hardening artifact. Multiple left-sided enlarged lymph nodes in the neck and the largest lymph node was measuring about 18 mm in size. and some atelectatic changes in the right lung and airspace disease. On 08/23/2022, seeing the patient for a follow-up. The patient currently is intubated on a mechanical ventilator. He remains off sedation. I'm a bit surprised because of his low level of consciousness. At times, I was told that he was more alert. This morning, at time of my evaluation, the patient was very difficult to arouse. He does have left-sided paralysis due to a stroke. Otherwise, he is very comfortable while being intubated on a mechanical ventilator and he is not fighting the tube at all. He is on assist-control mode at the rate of 20 with a tidal volume of 500 lymph nodes of 30% with a PEEP of 5. The blood gas showed a pH of 7.49 with a pCO2 of 33 and pO2 of 87. The patient was supposed to undergo a tracheostomy tube insertion and a PEG tube yesterday and this was not done and was rescheduled for today. Meanwhile, the patient has a net fluid balance of +393, IV fluids at KVO, the patient's tube feeds are currently on hold and earlier, he was on Nepro. The patient's blood work shows a bili 6 out of 7.8 with a hemoglobin of 8.7 and a platelet count of 385, his sodium level is at 145, bicarb is 25 with a BUN of 33 and a creatinine of 0.8 and a calcium level of 8.3. He is afebrile. He is hemodynamically stabl e. He does have a small palpable lymph node in the left neck area and this was also evident on a CAT scan of the head and neck. No other significant events otherwise for now. No cardiac arrhythmias. No change in his medication. The patient remains on a combination of aspirin and Brilinta. The patient is on Levemir insulin 20 units along with NovoLog sliding scale coverage. On today's evaluation of 08/24/2022, the patient is being seen for a follow-up. The patient has undergone a tracheostomy tube insertion and a PEG tube insertion. On today's neurologic evaluation, the patient was arousable and he was able to follow simple commands. However, if left unstimulated, he would go back to sleep and remains quite lethargic. Note that the patient had several neurology evaluation. For now, the exact cause for his underlying altered mentation or diminished level of consciousness is not clear. The patient acute/subacute ischemic stroke at different territories which obviously raises the possibility of cardioembolic phenomenon this patient. LUCA was negative for thrombus or shunting. The patient has left-sided hemiplegia/hemiparesis due to the stroke. He continues to have altered mentation which is essentially multifactorial and there is no evidence of any seizure activity on EEG. On today's evaluation, the patient remains on a mechanical ventilator. He is going to be started on tube feeds. He is on a assist control mode with a rate of 20 with a tidal volume of 450 and FiO2 of 35% with a PEEP of 5. The blood gas showed a pH of 7.45 with a pCO2 of 35 and pO2 of 105. On his blood work, the patient had a white cell count of 8.3 with a hemoglobin of 9.2, BNP 35 with a creatinine of 0.9 and his sodium level is at 146. No fever. No chills. No other significant events overnight. PEG tube site is dry clean and intact. Chest x-ray shows adequate expansion of both lungs. Some limited atelectatic changes in left lung base. Otherwise, the rest of the findings are essentially within normal limits. On 08/25/2022, the patient is neurologically unchanged. He fluctuates in his mentation and mental status. He waxes and wanes. He is doing well otherwise. He remains on a mechanical ventilator. Chest x-ray findings are stable. Afebrile and hemodynamically stable. He was done and enteral feeding for nutritional support and the patient is currently on Nepro 45 mL an hour. The mechanical ventilation is on a assist control mode at a rate of 20, tidal volume of 450, FiO2 of 30% with a PEEP of 5. The blood gas shows a pH of 7.47 with a pCO2 of 35 and pO2 of 102. I give the patient trial of pressure support mode of mechanical ventilation yesterday and he less than a pressure support of 7 and a PEEP of 5 for total of 4-5 hours. Ultimately, he was placed back on assist- control mode of mechanical ventilation. No seizure activity. He follows some simple commands. Rest or secretions are scant. No sedatives. He is on Levemir insulin and a total of the adjusted for better blood sugar control. I'm going to bring up his Levemir dose up to 30 units daily basis. On 08/26/2022, neurologically still unchanged. The patient is quite synchronous the mechanical ventilator. Is receiving daily tries with pressure support. Today, he does not have any major rest or secretions. He is on assist-control mode at a rate of 20 with a tidal volume of 450 and FiO2 of 30% with a PEEP of 5. He was placed on a pressure support of 10 and a PEEP of 5 yesterday for several hours. His tracheostomy tube is in a good location. The patient remains hemodynamically stable. The patient is receiving enteral feeding for nutritional support and is currently on Nepro at the rate of 45 mL an hour. He remains on Levemir insulin at 30 units along with a sliding scale coverage. His chest x-ray is similar compared to yesterday. There is no airspace disease. Some atelectatic change in the lung bases bilaterally. No significant pleural effusion. No other major abnormalities. PH is at 7.49 with a pCO2 of 36 and pO2 of 95. The wbcat 7 with a hemoglobin of 8.4 and a platelet count of 465. The in his 24 with a creatinine of 0.7. No other issues for now. On 08/27/2022, the patient is being seen for a follow-up. The patient remains off sedation. He was switched to a pressure support of 10 and a PEEP of 5 and he has been on same spontaneous breathing since yesterday. He seems to be tolerating spontaneous breathing relatively well. No tachypnea. Is able to generate adequate tidal volumes. No signs of any respiratory distress. No significant orotracheal secretions. His tracheostomy site is dry clean and intact. Of concern is his ongoing neuro status. The patient is post CVA. The patient has been seen by neurology on multiple occasions and clinically, he remains unchanged. He remains quite encephalopathic and sleepy and groggy. As mentioned, no sedation is used. Nevertheless, were not seeing any improvement in his level of alertness. He continues to have hemiplegia or hemiparesis on the right. He is receiving enteral feeding for nutritional support. Currently he is on Nepro at the rate of 45 mL an hour. His cardiac rhythm is sinus. He has no open wounds or sores. Dillard cath is in place. No signs of any fluid overload. His blood work shows a white cell count of 6.9 with a hemoglobin 9.0 and a platelet count of 424. The pH is 7.46 with a pCO2 of 37 and pO2 of 96. BUN is at 19 with a creatinine of 0.6 and the sodium levels of 139. No other significant events overnight. We'll keep the patient a pressure support mode of mechanical ventilation. No chest x-ray from today. Objective - Vital Signs Vital signs: Vital Signs Temp 98.4 F 08/27/22 08:00 Pulse 84 08/27/22 10:00 Resp 18 08/27/22 10:00 BP 147/80 08/27/22 10:00 Pulse Ox 100 08/27/22 10:00 FiO2 30 08/27/22 10:00 Intake & Output 08/26/22 08/27/22 08/27/22 18:59 06:59 18:59 Intake Total 1238 754 374 Output Total 645 1215 260 Balance 593 -461 114 Weight 91.3 kg 92.5 kg Intake: IV 143 169 39 Dextrose 5% in Water 1, 110 130 30 000 ml @ 10 mls/hr IV . Q24H ONE Rx#:[id number] art line pressure bag 33 39 9 Tube Feeding 495 585 135 Other 600 200 Output: Urine 645 1215 260 Other: Voiding Method Indwelling Catheter Indwelling Catheter Indwelling Catheter ABP, PAP, CO, CI - Last Documented Arterial Blood Pressure 146/58 - Exam No acute distress, patient has a tracheostomy tube in place Head exam was generally normal. There was no scleral icterus or corneal arcus. Mucous membranes were moist. HEENT examination is grossly unremarkable. Neck supple. Full range of motion. No adenopathy thyromegaly or neck vein distention. Cardiovascular examination reveals regular rhythm rate. S1-S2 normal. No S3 or S4. . Heart sounds are distant. Heart rate 99 beats a minute. The patient has a very harsh systolic ejection murmur grade 4/6 mainly in the left apex Lungs reveal scattered bilateral rhonchi. No wheezes. No distinct crackles. Breath sounds equal. Abdomen soft bowel sounds are heard. No masses or tenderness.patient has a PEG tube in place and the site is dry clean and intact Extremities are intact. No cyanosis clubbing or edema. Skin is without rash or lesion. Neurologic examination reveals right-sided hemiplegia/hemiparesis. He is arousable and he follows simple commands.the patient remains quite drowsy. He opens his eyes briefly. He was are equally reactive to light. He may have a preferential gaze although does not consistent. Babinski's are mute d - Labs CBC & Chem 7: 08/27/22 05:20 08/27/22 05:20 Labs: Abnormal Lab Results - Last 24 Hours (Table) 08/26/22 08/26/22 08/27/22 Range/Units 12:01 18:09 00:48 RBC (4.30-5.90) m/uL Hgb (13.0-17.5) gm/dL Hct (39.0-53.0) % ABG pH (7.35-7.45) ABG HCO3 (21-25) mmol/L ABG Total CO2 (19-24) mmol/L ABG O2 Saturation (94-97) % Chloride (98-107) mmol/L Creatinine (0.66-1.25) mg/dL Glucose (74-99) mg/dL POC Glucose (mg/dL) 193 H 169 H 198 H (70-110) mg/dL Calcium (8.4-10.2) mg/dL 08/27/22 08/27/22 08/27/22 Range/Units 05:20 05:20 05:22 RBC 2.80 L (4.30-5.90) m/uL Hgb 9.0 L (13.0-17.5) gm/dL Hct 25.8 L (39.0-53.0) % ABG pH (7.35-7.45) ABG HCO3 (21-25) mmol/L ABG Total CO2 (19-24) mmol/L ABG O2 Saturation (94-97) % Chloride 110 H (98-107) mmol/L Creatinine 0.65 L (0.66-1.25) mg/dL Glucose 156 H (74-99) mg/dL POC Glucose (mg/dL) 165 H (70-110) mg/dL Calcium 8.3 L (8.4-10.2) mg/dL 08/27/22 Range/Units 05:33 RBC (4.30-5.90) m/uL Hgb (13.0-17.5) gm/dL Hct (39.0-53.0) % ABG pH 7.46 H (7.35-7.45) ABG HCO3 26 H (21-25) mmol/L ABG Total CO2 27 H (19-24) mmol/L ABG O2 Saturation 98.7 H (94-97) % Chloride (98-107) mmol/L Creatinine (0.66-1.25) mg/dL Glucose (74-99) mg/dL POC Glucose (mg/dL) (70-110) mg/dL Calcium (8.4-10.2) mg/dL Assessment and Plan Plan: Acute hypoxemic respiratory failure, secondary to acute systolic CHF, pulmonary edema, ischemic cardiomyopathy, and acute ST segment elevation myocardial infarction. The patient is post cardiac catheterization and stenting to the RCA. On today's evaluation, the patient has adequate oxygenation moderate the patient is currently on pressure support mode of mechanical ventilation and his been on the same setting for the past 24 hours with a pressure support of 10 and a PEEP of 5. No signs of any respiratory distress at this point in time. Moderate to Severe aortic stenosis, LV function is preserved, LV function is in order of 40-45%. LUCA was done and there is no evidence of any cardiac thrombus. Status post intubation and mechanical ventilation, on 08/13/2022. Status post stent placement, right coronary artery, 08/13/2022. Acute CVA with right-sided hemiplegia. Patient very poorly responsive and the patient is currently off sedation, computed tomography scan showing right cerebellar subacute/acute infarct as well as left frontoparietal subacute/acute infarct, and EEG showing diffuse slowing, consistent with metabolic/toxic encephalopathy. The patient continues to have hemiparesis on the right. Haemophilus influenzae pneumonia/tracheobronchitis. Completed course of antibiotics Acute diabetic ketoacidosis, recovered , and the patient is currently on Levemir insulin 20 units and NovoLog 6 units every 6 hours and a sliding scale coverage. Acute kidney injury, recovered Acute hypernatremia, recovered History of asthma. Degenerative joint disease. Fungal dermatitis, involving the right groin area. Left cervical lymphadenopathy that needs to be worked up at the later stage Plan: Keep the patient a mechanical ventilator, pressure support of 10 and a PEEP of 5 Continue enteral feeding for nutritional support and the patient is currently on Nepro at the rate of 45 mL an hour Continue rest of the supportive care Avoid sedation Monitor the mental status, overall neurosystem remains unchanged CT of the brain was done yesterday and showed no significant or hemodynamically significant stenosis of the intracerebral disease Completed the course of antibiotics regarding the Haemophilus influenza Poor prognosis and will continue to follow. possible transferring this patient to select specialty within the next few days There is a critical care evaluation that was done in more than 30 minutes. Time with Patient: Greater than 30
[2022-08-27 11:52] LABS: Glucose,Whole Blood 171 mg/dL (70-110)
--- NOTE | 2022-08-27 12:24 | P.PN ---
Subjective Progress Note Date: 08/27/22 Principal diagnosis: [place] No changes in patient's condition since yesterday. No overnight events. He is currently tolerating pressure support. Remains off sedation. Still getting tube feeds. He continues to have hemiplegia or hemiparesis on the right, follows commands with his left side. Objective - Vital Signs Vital signs: Vital Signs Temp 98.4 F 08/27/22 08:00 Pulse 81 08/27/22 11:00 Resp 22 08/27/22 11:00 BP 140/74 08/27/22 11:00 Pulse Ox 100 08/27/22 11:00 FiO2 30 08/27/22 11:17 Intake & Output 08/26/22 08/27/22 08/27/22 18:59 06:59 18:59 Intake Total 1238 754 432 Output Total 645 1215 335 Balance 593 -461 97 Weight 91.3 kg 92.5 kg Intake: IV 143 169 52 Dextrose 5% in Water 1, 110 130 40 000 ml @ 10 mls/hr IV . Q24H ONE Rx#:[id number] art line pressure bag 33 39 12 Tube Feeding 495 585 180 Other 600 200 Output: Urine 645 1215 335 Other: Voiding Method Indwelling Catheter Indwelling Catheter Indwelling Catheter ABP, PAP, CO, CI - Last Documented Arterial Blood Pressure 142/50 - Exam General: intubated, lethargic, no acute distress Neck: trach in place HEENT: normocephalic, atraumatic, no tracheal deviation Respiratory: symmetric chest rise, no cyanosis, ventilator dependent CVS: perfusing all extremities, no distal gangrene, no pitting edema GI: soft, ND : no SPT, no CVAT, gr is present Neuro: Right sided weakness - Labs CBC & Chem 7: 08/27/22 05:20 08/27/22 05:20 Labs: Abnormal Lab Results - Last 24 Hours (Table) 08/26/22 08/27/22 08/27/22 Range/Units 18:09 00:48 05:20 RBC 2.80 L (4.30-5.90) m/uL Hgb 9.0 L (13.0-17.5) gm/dL Hct 25.8 L (39.0-53.0) % ABG pH (7.35-7.45) ABG HCO3 (21-25) mmol/L ABG Total CO2 (19-24) mmol/L ABG O2 Saturation (94-97) % Chloride (98-107) mmol/L Creatinine (0.66-1.25) mg/dL Glucose (74-99) mg/dL POC Glucose (mg/dL) 169 H 198 H (70-110) mg/dL Calcium (8.4-10.2) mg/dL 08/27/22 08/27/22 08/27/22 Range/Units 05:20 05:22 05:33 RBC (4.30-5.90) m/uL Hgb (13.0-17.5) gm/dL Hct (39.0-53.0) % ABG pH 7.46 H (7.35-7.45) ABG HCO3 26 H (21-25) mmol/L ABG Total CO2 27 H (19-24) mmol/L ABG O2 Saturation 98.7 H (94-97) % Chloride 110 H (98-107) mmol/L Creatinine 0.65 L (0.66-1.25) mg/dL Glucose 156 H (74-99) mg/dL POC Glucose (mg/dL) 165 H (70-110) mg/dL Calcium 8.3 L (8.4-10.2) mg/dL 08/27/22 Range/Units 11:50 RBC (4.30-5.90) m/uL Hgb (13.0-17.5) gm/dL Hct (39.0-53.0) % ABG pH (7.35-7.45) ABG HCO3 (21-25) mmol/L ABG Total CO2 (19-24) mmol/L ABG O2 Saturation (94-97) % Chloride (98-107) mmol/L Creatinine (0.66-1.25) mg/dL Glucose (74-99) mg/dL POC Glucose (mg/dL) 171 H (70-110) mg/dL Calcium (8.4-10.2) mg/dL Assessment and Plan Plan: Acute inferior ST segment elevated myocardial infarction Moderate to severe aortic stenosis Severe Pum HTN RVSP 50 Acute systolic heart failure Cardiogenic shock: Resolved and patient now off pressors Ventilator dependent respiratory failure -Cardiology recommendations. Continue with aspirin, Brillenta, Lipitor, metoprolol -[employer] to manage vent, currently tolerating pressure support. -S/p trach and PEG Acute encephalopathy likely due to acute CVA versus toxic metabolic encephalopathy Acute CVA with right sided weakness Patient off sedation CT head showed acute/subacute stroke Neurology signed off Patient on dual antiplatelet therapy as above and also on statin Carotid Dopplers negative for significant stenosis Haemophillus PNA -S/p IV Rocephin, currently d/rosalio. - pulm recs RASHMI - nephrology recs - nonobstructing calculi vs angiomyolipoma right upper pole -Resolved. Nephrology signed off Hypernatremia Water flushes through NG tube Trend BMP Resolved DM 2 with hyperglycemia with neuropathy DKA resolved - BG currently better on levemir 30 units, Novolog 6 q6 + sliding scale - hold metformin and Glucotrol -Hemoglobin A1c is 9.2 Chronic: Asthma OA Eczema Patient is DNR/DNI. DVT prophylaxis: Subcu heparin Discussed with: nursing Anticipated discharge: Early next week Anticipated discharge place: LTAC after PEG and trach
[2022-08-27 17:58] LABS: Glucose,Whole Blood 152 mg/dL (70-110)
[2022-08-27] MEDS: LOSARTAN 25 MG TAB PO SCH (18:08)
[2022-08-27] MEDS: ATORVASTATIN 40 MG TAB PO SCH (21:13)
[2022-08-28 00:39] LABS: Glucose,Whole Blood 205 mg/dL (70-110)
[2022-08-28] MEDS: INSULIN ASPART (NovoLOG) 100 UNIT/ML VIAL SQ SCH ×8 (00:41→18:13)
[2022-08-28] MEDS: HEPARIN SODIUM,PORCINE/PF 5,000 UNIT/0.5 ML SYRINGE SQ SCH ×3 (00:41→16:20)
[2022-08-28 04:53] LABS: HCT 28.2 % (39.0-53.0); HGB 9.5 gm/dL (13.0-17.5); Hypochromasia Moderate; MCH 30.6 pg (25.0-35.0); MCHC 33.6 g/dL (31.0-37.0); MCV 90.9 fL (80.0-100.0); Mean Platelet Volume 8.2; Platelet Count 477 k/uL (150-450); Poikilocytosis Slight; RBC 3.11 m/uL (4.30-5.90); RDW 13.8 % (11.5-15.5); WBC 6.6 k/uL (3.8-10.6)
[2022-08-28 05:03] LABS: African American GFR (CKD) >90 (>60 ml/min/1.73 sqM); Anion Gap 4 mmol/L; Blood Urea Nitrogen 17 mg/dL (9-20); Calcium 8.5 mg/dL (8.4-10.2); Carbon Dioxide 25 mmol/L (22-30); Chloride 107 mmol/L (98-107); Glucose 160 mg/dL (74-99); Non-African American GFR(CKD) >90 (>60 ml/min/1.73 sqM); Potassium 3.8 mmol/L (3.5-5.1); Sodium 136 mmol/L (137-145)
[2022-08-28 05:49] LABS: ABG HCO3 25 mmol/L (21-25); ABG Oxygen Saturation 97.3 % (94-97); ABG PCO2 33 mmHg (35-45); ABG PO2 78 mmHg (83-108); ABG TCO2 26 mmol/L (19-24)
[2022-08-28 05:50] LABS: Glucose,Whole Blood 194 mg/dL (70-110)
[2022-08-28 05:50] LABS: Allen Test Performed? No
[2022-08-28] MEDS: HYDROmorphone 0.5 MG/0.5 ML SYRINGE IVP PRN ×3 (05:58→18:13)
[2022-08-28] MEDS ORDERED: POTASSIUM BICARBONATE/CIT AC 20 MEQ TABLET.EFF NG-TUBE SCH (06:00)
[2022-08-28] MEDS: INSULIN DETEMIR (LEVEMIR) 100 UNIT/ML SYR SQ SCH (06:12)
--- NOTE | 2022-08-28 08:29 | XR ---
EXAMINATION TYPE: XR chest 1V portable DATE OF EXAM: 08/28/2022 COMPARISON: 08/26/2022 HISTORY: Difficulty breathing TECHNIQUE: Single frontal view of the chest is obtained. FINDINGS: There is a tracheostomy tube 4.2 cm above the patrick. Right PICC line terminating in SVC/R junction. Exam is limited by suboptimal inspiration. There is probable mild atelectasis and small effusion left lung base. Right lung is clear. There is n o pneumothorax. Impression: 1. Tracheostomy tube 4.2 cm above the patrick. 2. Limited by the suboptimal inspiration. 3. Small infiltrate in effusion left lung base. Difficult to ascertain whether there has been signifi cant change in the left lung base compared to previous given the difference in technique.
[2022-08-28] MEDS: amLODIPine 10 MG TAB PO SCH (08:30)
[2022-08-28] MEDS: PANTOPRAZOLE 40 MG/10 ML VIAL IVP SCH (08:30)
[2022-08-28] MEDS: METOPROLOL SUCCINATE (ER) 50 MG TAB.ER.24H PO SCH (08:30)
[2022-08-28] MEDS: TICAGRELOR 90 MG TAB PO SCH ×2 (08:30→20:10)
[2022-08-28] MEDS: ASPIRIN 81 MG PO SCH (08:30)
[2022-08-28] MEDS: CHLORHEXIDINE GLUCONATE 15 ML CUP MUCOUS MEM SCH ×2 (08:30→20:10)
--- NOTE | 2022-08-28 10:55 | P.PN ---
Subjective Progress Note Date: 08/28/22 On 08/22/2022, seeing this patient for a follow-up following his cardiac arrest. The patient remains intubated on a mechanical ventilator and the patient remains in the intensive care unit. In summary, presented with an acute respiratory failure requiring intubation mechanical ventilation. He was in acute pulmonary edema and he suffered from an acute ST segment elevation myocardial infarction and the patient underwent coronary intervention and he was found to have CAD with 100% RCA, 10-30% LAD and the patient underwent a mid RCA and insertion. The patient was also found to have moderate to severe aortic valve stenosis with a peak gradient of 60 mmHg. The echocardiogram that was done showed estimated ejection fraction of 40-45% and the patient had moderate to severe aortic valve stenosis. The patient also had an acute/subacute stroke, ischemic stroke at different territory although the possibility of an embolic/cardioembolic phenomena cannot be completely excluded. LUCA was negative for any thrombus or shunting. The patient's neurologic exam was consistent with a right hemiplegic weakness due to a left sided CVA. The patient currently is intubated on a mechanical ventilator. This morning, he is on assist-control mode at a rate of 20 with a tidal volume of 500 and FiO2 of 30% with a PEEP of 5. He came to find other the patient is off sedation for at least the past 5 days. He opens up his eyes. Quite tachypneic ventilator. He is not following commands consistently. He had right-sided weakness/hemiplegia. He was not ready for extubation. Based on that, it was made the decision to go ahead and proceed with a tracheostomy tube insertion of PEG tube insertion after having discussions with the family. The patient also having 51 today. On today's evaluation, the blood gas showed a pH of 7.51 with a pCO2 of 35 and pO2 of 87. The patient had a chest x-ray on 08/18/2022 and no chest x-rays since. The most recent chest x-ray showed some chronic interstitial changes bilaterally. Nevertheless, the patient has been asked oxygenating well. His current cardiac rhythm is sinus. His white suppositive 10.6 with a hemoglobin of 9.8. Electrolytes are normal. No renal dysfunction. Sodium is at 144 with a BUN of 35 and a creatinine of 0.8. Coagulation profile has not been checked recently. He is on a combination of aspirin and Brilinta. The patient is also on a sliding scale insulin coverage. His tube feeds on hold awaiting PEG tube insertion. In terms of his cardiac medication, other than the lower antiplatelet agent therapy, the patient is on metoprolol 25 mg by mouth 3 times a day and is also on Norvasc 10 mg by mouth daily for blood pressure control. Hydralazine is also on board at a dose of 25 mg by mouth twice a day. The patient is afebrile. No diarrhea. IV fluids are at KVO. A repeat CT angiogram was done today and the patient has no evidence of any dissection and the cervical internal carotid arteries or the vertebral arteries. Is at least 50% stenosis in the left carotid artery bifurcation secondary to calcified plaque. No evidence of any hemodynamically significant stenosis. Right vertebral artery origin had a stenosis which is suboptimally evaluated given the been hardening artifact. Multiple left-sided enlarged lymph nodes in the neck and the largest lymph node was measuring about 18 mm in size. and some atelectatic changes in the right lung and airspace disease. On 08/23/2022, seeing the patient for a follow-up. The patient currently is intubated on a mechanical ventilator. He remains off sedation. I'm a bit surprised because of his low level of consciousness. At times, I was told that he was more alert. This morning, at time of my evaluation, the patient was very difficult to arouse. He does have left-sided paralysis due to a stroke. Otherwise, he is very comfortable while being intubated on a mechanical ventilator and he is not fighting the tube at all. He is on assist-control mode at the rate of 20 with a tidal volume of 500 lymph nodes of 30% with a PEEP of 5. The blood gas showed a pH of 7.49 with a pCO2 of 33 and pO2 of 87. The patient was supposed to undergo a tracheostomy tube insertion and a PEG tube yesterday and this was not done and was rescheduled for today. Meanwhile, the patient has a net fluid balance of +393, IV fluids at KVO, the patient's tube feeds are currently on hold and earlier, he was on Nepro. The patient's blood work shows a bili 6 out of 7.8 with a hemoglobin of 8.7 and a platelet count of 385, his sodium level is at 145, bicarb is 25 with a BUN of 33 and a creatinine of 0.8 and a calcium level of 8.3. He is afebrile. He is hemodynamically stabl e. He does have a small palpable lymph node in the left neck area and this was also evident on a CAT scan of the head and neck. No other significant events otherwise for now. No cardiac arrhythmias. No change in his medication. The patient remains on a combination of aspirin and Brilinta. The patient is on Levemir insulin 20 units along with NovoLog sliding scale coverage. On today's evaluation of 08/24/2022, the patient is being seen for a follow-up. The patient has undergone a tracheostomy tube insertion and a PEG tube insertion. On today's neurologic evaluation, the patient was arousable and he was able to follow simple commands. However, if left unstimulated, he would go back to sleep and remains quite lethargic. Note that the patient had several neurology evaluation. For now, the exact cause for his underlying altered mentation or diminished level of consciousness is not clear. The patient acute/subacute ischemic stroke at different territories which obviously raises the possibility of cardioembolic phenomenon this patient. LUCA was negative for thrombus or shunting. The patient has left-sided hemiplegia/hemiparesis due to the stroke. He continues to have altered mentation which is essentially multifactorial and there is no evidence of any seizure activity on EEG. On today's evaluation, the patient remains on a mechanical ventilator. He is going to be started on tube feeds. He is on a assist control mode with a rate of 20 with a tidal volume of 450 and FiO2 of 35% with a PEEP of 5. The blood gas showed a pH of 7.45 with a pCO2 of 35 and pO2 of 105. On his blood work, the patient had a white cell count of 8.3 with a hemoglobin of 9.2, BNP 35 with a creatinine of 0.9 and his sodium level is at 146. No fever. No chills. No other significant events overnight. PEG tube site is dry clean and intact. Chest x-ray shows adequate expansion of both lungs. Some limited atelectatic changes in left lung base. Otherwise, the rest of the findings are essentially within normal limits. On 08/25/2022, the patient is neurologically unchanged. He fluctuates in his mentation and mental status. He waxes and wanes. He is doing well otherwise. He remains on a mechanical ventilator. Chest x-ray findings are stable. Afebrile and hemodynamically stable. He was done and enteral feeding for nutritional support and the patient is currently on Nepro 45 mL an hour. The mechanical ventilation is on a assist control mode at a rate of 20, tidal volume of 450, FiO2 of 30% with a PEEP of 5. The blood gas shows a pH of 7.47 with a pCO2 of 35 and pO2 of 102. I give the patient trial of pressure support mode of mechanical ventilation yesterday and he less than a pressure support of 7 and a PEEP of 5 for total of 4-5 hours. Ultimately, he was placed back on assist- control mode of mechanical ventilation. No seizure activity. He follows some simple commands. Rest or secretions are scant. No sedatives. He is on Levemir insulin and a total of the adjusted for better blood sugar control. I'm going to bring up his Levemir dose up to 30 units daily basis. On 08/26/2022, neurologically still unchanged. The patient is quite synchronous the mechanical ventilator. Is receiving daily tries with pressure support. Today, he does not have any major rest or secretions. He is on assist-control mode at a rate of 20 with a tidal volume of 450 and FiO2 of 30% with a PEEP of 5. He was placed on a pressure support of 10 and a PEEP of 5 yesterday for several hours. His tracheostomy tube is in a good location. The patient remains hemodynamically stable. The patient is receiving enteral feeding for nutritional support and is currently on Nepro at the rate of 45 mL an hour. He remains on Levemir insulin at 30 units along with a sliding scale coverage. His chest x-ray is similar compared to yesterday. There is no airspace disease. Some atelectatic change in the lung bases bilaterally. No significant pleural effusion. No other major abnormalities. PH is at 7.49 with a pCO2 of 36 and pO2 of 95. The wbcat 7 with a hemoglobin of 8.4 and a platelet count of 465. The in his 24 with a creatinine of 0.7. No other issues for now. On 08/27/2022, the patient is being seen for a follow-up. The patient remains off sedation. He was switched to a pressure support of 10 and a PEEP of 5 and he has been on same spontaneous breathing since yesterday. He seems to be tolerating spontaneous breathing relatively well. No tachypnea. Is able to generate adequate tidal volumes. No signs of any respiratory distress. No significant orotracheal secretions. His tracheostomy site is dry clean and intact. Of concern is his ongoing neuro status. The patient is post CVA. The patient has been seen by neurology on multiple occasions and clinically, he remains unchanged. He remains quite encephalopathic and sleepy and groggy. As mentioned, no sedation is used. Nevertheless, were not seeing any improvement in his level of alertness. He continues to have hemiplegia or hemiparesis on the right. He is receiving enteral feeding for nutritional support. Currently he is on Nepro at the rate of 45 mL an hour. His cardiac rhythm is sinus. He has no open wounds or sores. Dillard cath is in place. No signs of any fluid overload. His blood work shows a white cell count of 6.9 with a hemoglobin 9.0 and a platelet count of 424. The pH is 7.46 with a pCO2 of 37 and pO2 of 96. BUN is at 19 with a creatinine of 0.6 and the sodium levels of 139. No other significant events overnight. We'll keep the patient a pressure support mode of mechanical ventilation. No chest x-ray from today. 07/28/2022, the patient remains on a pressure support mode of mechanical ventilation. Neurologically over, his essentially the same as yesterday. At times, he wakes up and he opens his eyes spontaneously and follows simple commands. Upon stimulation, he also responds. Nevertheless, once left unstimulated, he would go to sleep and no major changes are seen. He continues to have weakness on the right side of the body related to his stroke. He is on support of 10 and a PEEP of 5. His oxygen is stable. No significant orotracheal secretions. He is on Nepro for enteral feeding and nutritional support. No leukocytosis and his white cell count is at 6.6 with a hemoglobin 9.5. Blood gas showed pH of 7.5 with a pCO2 of 33 and pO2 of 78. Sodium levels of 136, BUN is at 70 with a creatinine of 0.6. He is tolerating enteral feeding for nutritional support. He is afebrile. Medications remain unchanged. Objective - Vital Signs Vital signs: Vital Signs Temp 98.6 F 08/28/22 08:00 Pulse 90 08/28/22 10:00 Resp 13 08/28/22 10:00 BP 138/74 08/28/22 10:00 Pulse Ox 94 L 08/28/22 10:00 FiO2 30 08/28/22 10:39 Intake & Output 08/27/22 08/28/22 08/28/22 18:59 06:59 18:59 Intake Total 1168 686 432 Output Total 950 965 350 Balance 218 -279 82 Weight 92.8 kg Intake: IV 73 146 52 D5W @ 10ml/hr 110 40 Dextrose 5% in Water 1, 40 000 ml @ 10 mls/hr IV . Q24H ONE Rx#:[id number] art line pressure bag 33 36 12 Tube Feeding 495 540 180 Other 600 200 Output: Urine 950 965 350 Other: Voiding Method Indwelling Catheter Indwelling Catheter Indwelling Catheter ABP, PAP, CO, CI - Last Documented Arterial Blood Pressure 144/53 - Exam No acute distress, patient has a tracheostomy tube in place Head exam was generally normal. There was no scleral icterus or corneal arcus. Mucous membranes were moist. HEENT examination is grossly unremarkable. Neck supple. Full range of motion. No adenopathy thyromegaly or neck vein distention. Cardiovascular examination reveals regular rhythm rate. S1-S2 normal. No S3 or S4. . Heart sounds are distant. Heart rate 99 beats a minute. The patient has a very harsh systolic ejection murmur grade 4/6 mainly in the left apex Lungs reveal scattered bilateral rhonchi. No wheezes. No distinct crackles. Breath sounds equal. Abdomen soft bowel sounds are heard. No masses or tenderness.patient has a PEG tube in place and the site is dry clean and intact Extremities are intact. No cyanosis clubbing or edema. Skin is without rash or lesion. Neurologic examination reveals right-sided hemiplegia/hemiparesis. He is arousable and he follows simple commands.the patient remains quite drowsy. He opens his eyes briefly. He was are equally reactive to light. He may have a preferential gaze although does not consistent. Babinski's are mute d - Labs CBC & Chem 7: 08/28/22 04:35 08/28/22 04:35 Labs: Abnormal Lab Results - Last 24 Hours (Table) 08/27/22 08/27/22 08/28/22 Range/Units 11:50 17:56 00:37 RBC (4.30-5.90) m/uL Hgb (13.0-17.5) gm/dL Hct (39.0-53.0) % Plt Count (150-450) k/uL ABG pH (7.35-7.45) ABG pCO2 (35-45) mmHg ABG pO2 (83-108) mmHg ABG Total CO2 (19-24) mmol/L ABG O2 Saturation (94-97) % Sodium (137-145) mmol/L Creatinine (0.66-1.25) mg/dL Glucose (74-99) mg/dL POC Glucose (mg/dL) 171 H 152 H 205 H (70-110) mg/dL 08/28/22 08/28/22 08/28/22 Range/Units 04:35 04:35 05:34 RBC 3.11 L (4.30-5.90) m/uL Hgb 9.5 L (13.0-17.5) gm/dL Hct 28.2 L (39.0-53.0) % Plt Count 477 H (150-450) k/uL ABG pH 7.50 H (7.35-7.45) ABG pCO2 33 L (35-45) mmHg ABG pO2 78 L (83-108) mmHg ABG Total CO2 26 H (19-24) mmol/L ABG O2 Saturation 97.3 H (94-97) % Sodium 136 L (137-145) mmol/L Creatinine 0.60 L (0.66-1.25) mg/dL Glucose 160 H (74-99) mg/dL POC Glucose (mg/dL) (70-110) mg/dL 08/28/22 Range/Units 05:49 RBC (4.30-5.90) m/uL Hgb (13.0-17.5) gm/dL Hct (39.0-53.0) % Plt Count (150-450) k/uL ABG pH (7.35-7.45) ABG pCO2 (35-45) mmHg ABG pO2 (83-108) mmHg ABG Total CO2 (19-24) mmol/L ABG O2 Saturation (94-97) % Sodium (137-145) mmol/L Creatinine (0.66-1.25) mg/dL Glucose (74-99) mg/dL POC Glucose (mg/dL) 194 H (70-110) mg/dL Assessment and Plan Plan: Acute hypoxemic respiratory failure, secondary to acute systolic CHF, pulmonary edema, ischemic cardiomyopathy, and acute ST segment elevation myocardial infarction. The patient is post cardiac catheterization and stenting to the RCA. On today's evaluation, the patient has adequate oxygenation moderate the patient is currently on pressure support mode of mechanical ventilation and his been on the same setting for the past 24 hours with a pressure support of 10 and a PEEP of 5. No signs of any respiratory distress at this point in time. The patient has been on a pressure support mode of mechanical ventilation for the past 48 hours. Doing well. Scant rest or secretions. Blood gases are ad equate. Hemodynamically stable. Neurologically unchanged. Moderate to Severe aortic stenosis, LV function is preserved, LV function is in order of 40-45%. LUCA was done and there is no evidence of any cardiac thrombus. Status post intubation and mechanical ventilation, on 08/13/2022. Status post stent placement, right coronary artery, 08/13/2022. Acute CVA with right-sided hemiplegia. Patient very poorly responsive and the patient is currently off sedation, computed tomography scan showing right cerebellar subacute/acute infarct as well as left frontoparietal subacute/acute infarct, and EEG showing diffuse slowing, consistent with metabolic/toxic encephalopathy. The patient continues to have hemiparesis on the right. Haemophilus influenzae pneumonia/tracheobronchitis. Completed course of antibiotics Acute diabetic ketoacidosis, recovered , and the patient is currently on Levemir insulin 20 units and NovoLog 6 units every 6 hours and a sliding scale coverage. Acute kidney injury, recovered Acute hypernatremia, recovered History of asthma. Degenerative joint disease. Fungal dermatitis, involving the right groin area. Left cervical lymphadenopathy that needs to be worked up at the later stage Plan: Keep the patient a mechanical ventilator, pressure support of 10 and a PEEP of 5 Continue enteral feeding for nutritional support and the patient is currently on Nepro at the rate of 45 mL an hour Continue rest of the supportive care Avoid sedation Monitor the mental status, overall neurosystem remains unchanged Monitor his condition. No major changes Poor prognosis and will continue to follow. possible transferring this patient to select specialty within the next few days Chest x-ray from today is showing no major interval change. If he is able to tolerate pressure support for another few days, he may even go on a trach collar. This will depend on his coughing mechanism and his respiratory secretions. There is a critical care evaluation that was done in more than 30 minutes. Time with Patient: Greater than 30
[2022-08-28 12:39] LABS: Glucose,Whole Blood 224 mg/dL (70-110)
[2022-08-28 17:46] LABS: Glucose,Whole Blood 181 mg/dL (70-110)
[2022-08-28] MEDS: LOSARTAN 25 MG TAB PO SCH (18:12)
[2022-08-28] MEDS: ATORVASTATIN 40 MG TAB PO SCH (20:10)
[2022-08-29 00:28] LABS: Glucose,Whole Blood 218 mg/dL (70-110)
[2022-08-29] MEDS: INSULIN ASPART (NovoLOG) 100 UNIT/ML VIAL SQ SCH ×8 (00:29→17:45)
[2022-08-29] MEDS: HEPARIN SODIUM,PORCINE/PF 5,000 UNIT/0.5 ML SYRINGE SQ SCH ×3 (00:29→16:03)
[2022-08-29 05:30] LABS: Glucose,Whole Blood 194 mg/dL (70-110)
[2022-08-29 05:36] LABS: ABG Base Excess 1.6 mmol/L; ABG HCO3 25 mmol/L (21-25); ABG Oxygen Saturation 98.7 % (94-97); ABG PCO2 35 mmHg (35-45); ABG PH 7.47 (7.35-7.45); ABG PO2 101 mmHg (83-108); ABG TCO2 26 mmol/L (19-24); Allen Test Performed? Yes
[2022-08-29 05:42] LABS: HCT 27.2 % (39.0-53.0); Hypochromasia Moderate; MCH 29.3 pg (25.0-35.0); MCV 88.9 fL (80.0-100.0); Mean Platelet Volume 7.8; Platelet Count 483 k/uL (150-450); Poikilocytosis Moderate; RBC 3.06 m/uL (4.30-5.90); RDW 14.2 % (11.5-15.5); WBC 6.7 k/uL (3.8-10.6)
[2022-08-29 06:13] LABS: African American GFR (CKD) >90 (>60 ml/min/1.73 sqM); Anion Gap 5 mmol/L; Blood Urea Nitrogen 15 mg/dL (9-20); Calcium 8.3 mg/dL (8.4-10.2); Carbon Dioxide 24 mmol/L (22-30); Chloride 104 mmol/L (98-107); Glucose 177 mg/dL (74-99); Non-African American GFR(CKD) >90 (>60 ml/min/1.73 sqM); Potassium 3.9 mmol/L (3.5-5.1); Sodium 133 mmol/L (137-145)
--- NOTE | 2022-08-29 06:15 | XR ---
EXAMINATION TYPE: XR chest 1V portable DATE OF EXAM: 08/29/2022 CLINICAL HISTORY: Difficulty breathing progress study. TECHNIQUE: Single AP portable semiupright view of the chest is obtained. COMPARISON: Chest x-ray from one day earlier and older studies. FINDINGS: Stable tracheostomy tube and right-sided PICC line. Persistent low lung volumes and left basilar opacity. Cardiac silhouette size stable and upper limits of normal. Osseous structures are intact. IMPRESSION: Persistent low lung volumes with left basilar acute infiltrate and/or atelectasis. No sig nificant change from one day earlier.
[2022-08-29] MEDS: INSULIN DETEMIR (LEVEMIR) 100 UNIT/ML SYR SQ SCH (06:26)
[2022-08-29] MEDS: HYDROmorphone 0.5 MG/0.5 ML SYRINGE IVP PRN ×2 (06:36→10:05)
[2022-08-29] MEDS ORDERED: POTASSIUM BICARBONATE/CIT AC 20 MEQ TABLET.EFF NG-TUBE SCH (07:00)
--- NOTE | 2022-08-29 07:37 | P.PN ---
Subjective Progress Note Date: 08/29/22 Patient is a 63-year-old male with history of diabetes mellitus type 2, [id number] with neuropathy, asthma, and osteoarthritis who presented to the emergency department with chest pain and shortness of breath. In the ER he underwent an extensive evaluation. He required BiPAP secondary to tachypnea. An EKG was obtained in the emergency department which shows ST segment elevation inferior with reciprocal changes and poor R-wave progression. Patient needed to have worsening respiratory distress and required intubation in the ER. He was emergently taken to molder labels and had PCI performed to the RCA. He did not have return of flow to the PDA despite thrombectomy and cardiology recommended an additional 12 hours of Aggrastat and heparin for 24. He was found to have diffuse edema on his chest x-ray on vent settings are consistent with ARDS. Initial laboratory analysis also demonstrated hyperglycemia with a blood sugar of 636, patient was acetone positive and therefore diagnosed with DKA. Due to his vent settings and diffuse pulmonary edema he was started on an insulin drip but was not provided with fluid resuscitation as was requiring a PEEP of 14 and an FiO2 of 100% on the nuria. Patient underwent an echocardiogram which showed severe aortic stenosis and an ejection fraction of 40-45%. During his hospital stay the patient also had an acute versus subacute stroke with the possibility of embolic phenomenon neurology was consulted. LUCA was completed which was negative for thrombus or shunting. Patient underwent tracheostomy and PEG tube on 08/23/22. His sedation was weaned and patient was following simple commands but was found to have right-sided hemiplegia. Patient seen and examined at bedside. Fevers X1 overnight. He complains of pain but cant communicate where the pain is at. Follows simple commands. General: nontoxic, no distress, appears at stated age Derm: warm, dry Head: atraumatic, normocephalic, symmetric Eyes: EOMI, no lid lag, anicteric sclera Mouth: no lip lesion, mucus membranes moist Cardiovascular: S1S2 reg, no murmur, positive posterior tibial pulse bilateral, Lungs: Decreased bs bilateral, no rhonchi, no rales , no accessory muscle use, + trach in place with some yellow thin drainage Abdominal: soft, nontender to palpation, no guarding, no appreciable organomegaly Ext: no gross muscle atrophy, no edema, no contractures Neuro: some movement of left hand off the bed, moving left lower extremity well, unable to move right arm and leg Psych: Alert, oriented, appropriate affect Assessment/plan: Acute respiratory failure status post trach placement -Being managed by pulmonary -Continue supportive care and pulmonary hygiene -Goal is to get patient to trach collar. 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 -Abnormal EEG with generalized cerebellar dysfunction - ASA, statin, Brilinta - PT/OT Acute inferior ST segment elevated myocardial infarction Moderate to severe aortic stenosis Severe Pum HTN RVSP 50 Acute exacerbation of systolic CHF with EF 40-45% -Cardiology has signed off as patient -Aspirin, Lipitor, Cozaar, Toprol, Brillenta - outpatient follow-up DM 2 with hyperglycemia with neuropathy - SSI, fixed dose, novolog - Follow blood sugars -A1c 9.2 Left-sided cervical lymphadenopathy -Further workup as outpatient for possible neoplastic process. Resolved: Metabolic encephalopathy DKA resolved Haemophillus PNA Hypernatremia RASHMI Cardiogenic shock, resolved Severe ARDS / diffuse pulmonary edema likely secondary to cardiogenic shock PaO2 to FiO2 < 100 on admission Fungal dermatitis Chronic: Asthma OA Eczema DVT prophylaxis: heparin gtt Discussed with: nursing Anticipated discharge: pending clinical course Anticipated discharge place: pending clinical course A total of 45 minutes was spent on the care of this complex patient more than 50% of the time was spent in counseling and care coordination. Active Medications Generic Name Dose Route Start Last Admin Trade Name Freq PRN Reason Stop Dose Admin Acetaminophen 650 mg 08/29/22 09:10 Acetaminophen Oral Susp (Peds) 3,840 Mg/120 Ml Bottle PO Q6HR PRN Fever and/ or Mild Pain Amlodipine Besylate 10 mg 08/17/22 10:00 08/29/22 08:17 Amlodipine 10 Mg Tab PO 10 mg DAILY JUANA Administration Aspirin 81 mg 08/13/22 09:00 08/29/22 08:17 Aspirin 81 Mg PO 81 mg DAILY JUANA Administration Atorvastatin Calcium 40 mg 08/18/22 21:00 08/28/22 20:10 Atorvastatin 40 Mg Tab PO 40 mg HS JUANA Administration Chlorhexidine Gluconate 15 ml 08/13/22 09:00 08/29/22 08:16 Chlorhexidine Gluconate 15 Ml Cup MUCOUS MEM 15 ml BID JUANA Administration Heparin Sodium (Porcine) 5,000 unit 08/19/22 16:00 08/29/22 08:16 Heparin Sodium,Porcine/Pf 5,000 Unit/0.5 Ml Syringe SQ 5,000 unit Q8HR JUANA Administration Hydromorphone HCl 0.5 mg 08/17/22 20:13 08/29/22 10:05 Hydromorphone 0.5 Mg/0.5 Ml Syringe IVP 0.5 mg Q2HR PRN Administration Moderate Pain Hydromorphone HCl 1 mg 08/22/22 15:23 08/24/22 17:25 Hydromorphone 1 Mg/Ml 1 Ml Syringe IVP 1 mg Q2H PRN Administration Severe Pain (Scale 7 to 10) Insulin Aspart 6 unit 08/15/22 12:00 08/29/22 06:26 Insulin Aspart (Novolog) 100 Unit/Ml Vial SQ 6 unit Q6HR JUANA Administration Insulin Aspart 0 unit 08/15/22 12:00 08/29/22 06:26 Insulin Aspart (Novolog) 100 Unit/Ml Vial SQ 3 unit Q6H JUANA Administration Protocol Insulin Detemir 30 unit 08/26/22 07:00 08/29/22 06:26 Insulin Detemir (Levemir) 100 Unit/Ml Syr SQ 30 unit DAILY@0700 JUANA Administration Losartan Potassium 25 mg 08/23/22 18:00 08/28/22 18:12 Losartan 25 Mg Tab PO 25 mg DAILY@1800 JUANA Administration Metoprolol Succinate 50 mg 08/23/22 09:00 08/29/22 08:17 Metoprolol Succinate (Er) 50 Mg Tab.Er.24h PO 50 mg DAILY JUANA Administration Miscellaneous Information 1 each 08/13/22 03:31 Magnesium Replacement Protocol 1 Each Misc MISCELLANE DAILY PRN Per Protocol Protocol Miscellaneous Information 1 each 08/13/22 16:39 Potassium Replacement Protocol 1 Each Misc MISCELLANE DAILY PRN Per Protocol Protocol Pantoprazole Sodium 40 mg 08/17/22 12:00 08/29/22 08:16 Pantoprazole 40 Mg/10 Ml Vial IVP 40 mg DAILY JUANA Administration Ticagrelor 90 mg 08/13/22 09:00 08/29/22 08:17 Ticagrelor 90 Mg Tab PO 90 mg BID JUANA Administration Protocol Objective - Vital Signs Vital signs: Vital Signs Temp 98.5 F 08/29/22 04:00 Pulse 93 08/29/22 07:00 Resp 24 08/29/22 07:00 BP 150/87 08/29/22 07:00 Pulse Ox 96 08/29/22 07:00 FiO2 30 08/29/22 07:26 Intake & Output 08/28/22 08/29/22 08/29/22 18:59 06:59 18:59 Intake Total 1296 1354 Output Total 1155 930 Balance 141 424 Weight 92.6 kg Intake: IV 156 169 D5W @ 10ml/hr 120 130 art line pressure bag 36 39 Tube Feeding 540 585 Other 600 600 Output: Urine 1155 930 Other: Voiding Method Indwelling Catheter Indwelling Catheter ABP, PAP, CO, CI - Last Documented Arterial Blood Pressure 134/55 - Labs CBC & Chem 7: 08/29/22 05:27 08/29/22 05:27 Labs: Abnormal Lab Results - Last 24 Hours (Table) 08/28/22 08/28/22 08/29/22 Range/Units 12:37 17:45 00:27 RBC (4.30-5.90) m/uL Hgb (13.0-17.5) gm/dL Hct (39.0-53.0) % Plt Count (150-450) k/uL ABG pH (7.35-7.45) ABG Total CO2 (19-24) mmol/L ABG O2 Saturation (94-97) % Sodium (137-145) mmol/L Creatinine (0.66-1.25) mg/dL Glucose (74-99) mg/dL POC Glucose (mg/dL) 224 H 181 H 218 H (70-110) mg/dL Calcium (8.4-10.2) mg/dL 08/29/22 08/29/22 08/29/22 Range/Units 05:27 05:27 05:29 RBC 3.06 L (4.30-5.90) m/uL Hgb 9.0 L (13.0-17.5) gm/dL Hct 27.2 L (39.0-53.0) % Plt Count 483 H (150-450) k/uL ABG pH (7.35-7.45) ABG Total CO2 (19-24) mmol/L ABG O2 Saturation (94-97) % Sodium 133 L (137-145) mmol/L Creatinine 0.58 L (0.66-1.25) mg/dL Glucose 177 H (74-99) mg/dL POC Glucose (mg/dL) 194 H (70-110) mg/dL Calcium 8.3 L (8.4-10.2) mg/dL 08/29/22 Range/Units 05:31 RBC (4.30-5.90) m/uL Hgb (13.0-17.5) gm/dL Hct (39.0-53.0) % Plt Count (150-450) k/uL ABG pH 7.47 H (7.35-7.45) ABG Total CO2 26 H (19-24) mmol/L ABG O2 Saturation 98.7 H (94-97) % Sodium (137-145) mmol/L Creatinine (0.66-1.25) mg/dL Glucose (74-99) mg/dL POC Glucose (mg/dL) (70-110) mg/dL Calcium (8.4-10.2) mg/dL
[2022-08-29] MEDS: CHLORHEXIDINE GLUCONATE 15 ML CUP MUCOUS MEM SCH ×2 (08:16→20:27)
[2022-08-29] MEDS: PANTOPRAZOLE 40 MG/10 ML VIAL IVP SCH (08:16)
[2022-08-29] MEDS: TICAGRELOR 90 MG TAB PO SCH ×2 (08:17→20:27)
[2022-08-29] MEDS: ASPIRIN 81 MG PO SCH (08:17)
[2022-08-29] MEDS: amLODIPine 10 MG TAB PO SCH (08:17)
[2022-08-29] MEDS: METOPROLOL SUCCINATE (ER) 50 MG TAB.ER.24H PO SCH (08:17)
[2022-08-29] MEDS ORDERED: ACETAMINOPHEN ORAL SUSP 160 MG/5 ML CUP PO PRN (09:08)
[2022-08-29] MEDS ORDERED: ACETAMINOPHEN ORAL SUSP (PEDS) 3,840 MG/120 ML BOTTLE PO PRN (09:10)
--- NOTE | 2022-08-29 09:27 | P.PN ---
Subjective Progress Note Date: 08/28/22 08/28/2022: Patient was seen for a follow-up. Patient's significant other was present. Patient is laying in the bed. Patient has tracheostomy. Per nursing report, he has been on CPAP since Monday 10:30 AM, which is 2 days ago. Patient continues to be severely hemiplegic on the right side, with weakness on the left as well. 08/26/2022: Patient was seen for a follow-up. Patient clinically unchanged as compared to yesterday. Patient is still having greenish mucus from the track site. Patient continues to be groggy. Patient not on any sedation. Patient has tracheostomy on a mechanical ventilator. Also has PEG tube. 08/25/2022: Patient was initially seen by myself on 08/17/2022. Please refer to my note for details. Subsequently patient was seen by Dr. Ab Vega over the next week. Please refer to his notes for details as well. Came to see patient for a follow-up. Patient has bilateral hemispheric strokes. Patient's LUCA was negative. CTA of head and neck were negative. Patient now has track and PEG tube. Repeat EEG was negative for any seizure activity. There was mild to moderate encephalopathy. Patient currently on aspirin 81 mg daily and Brilinta 90 mg twice a day. Patient at present laying comfortably in the bed. Patient has tracheostomy tube. No distress. Please refer to examination below. SOME OF THE WORK-UP DURING THIS HOSPITAL VISIT CONSISTED OF: Lipid panels triglyceride 124, cholesterol 123, LDLs 81 and HDL is a 60 Hemoglobin A1c 9.2. White virus to start nondetected CT head is reported as acute/subacute CVA on the medial aspect of the right cerebellar hemisphere. Additional acute/subacute CVA including the left frontal/parietal lobe deep white matter and right temporal lobe Repeat CT head on 08/18/22: Overall similar examination from the yesterday with acute/subacute CVA in the medial aspect of the right cerebellar hemisphere, left frontal parietal lobe deep white matter and right temporal lobe. No hemorrhagic conversion. Different vascular territories suggest embolic phenomena. Most recent CT head on 08/21/2022: It is reported as similar evolving subacute infarct anterior pole right temporal and medial right cerebellar hemisphere. Either subacute or more chronic infarct left frontal parietal junction superiorly. Background moderate burden of chronic small vessel ischemic disease. No hemorrhagic transformation, midline shift or herniation. Similar mild hydrocephalus. There may be due to central atrophy. Correlate exclude a component of NPH. Possible acute right sided ethmoid sinusitis. 2-D echo from 08/13/2022 revealed mildly increase septal wall thickness. Left ventricular systolic function is decreased at 40-45%. Inferior hypokinesis. Moderate to severe aortic stenosis. EEG was performed, which was abnormal due to background slowing of severe degree. This is suggestive of generalized cerebral dysfunction as can be seen with toxic metabolic encephalopathy or due to diffuse structural brain a bnormality. Clinical correlation is recommended. No epileptiform activity was seen. Carotid duplex is reported as there is plaque formation in image and measurements suggest 25% stenosis in both internal carotid arteries. Vertebral artery flow was not demonstrated on this exam. Transesophageal echocardiogram was reported as normal size with mild mildly impaired systolic function with the segmental wall motion abnormality. Ejection fraction of 40-45%. Severe aortic stenosis with mild aortic regurgitation. Mild to moderate mitral regurgitation. No shunting across the intra-atrial septum. Normal appearance of left atrial appendage. CTA head and neck is reported as no evidence of dissection of cervical internal carotid arteries or vertebral arteries. No evidence of intracranial high-grade stenosis or intracranial aneurysm. At least 50% stenosis at the left carotid bifurcation secondary to calcified plaque. No evidence of hemodynamic significant stenosis of the right carotid bifurcation. Right vertebral origin stenosis which is suboptimally evaluated given beam hardening artifact from the patient's shoulders. Multiple left-sided enlarged lymph nodes further evaluation and workup is recommended. Findings concerning for neoplastic process until proven otherwise. Right upper lobe atelectasis versus developing airspace disease. I would defer to internal medicine/pulmonary medicine for abnormal enlarged lymph nodes. Objective - Vital Signs Vital signs: Vital Signs Temp 98.2 F 08/28/22 12:00 Pulse 99 08/28/22 14:00 Resp 20 08/28/22 14:00 BP 140/80 08/28/22 14:00 Pulse Ox 96 08/28/22 14:00 FiO2 30 08/28/22 14:00 Intake & Output 08/27/22 08/28/22 08/28/22 18:59 06:59 18:59 Intake Total 1168 686 806 Output Total 950 965 660 Balance 218 -279 146 Weight 92.8 kg Intake: IV 73 146 91 D5W @ 10ml/hr 110 70 Dextrose 5% in Water 1, 40 000 ml @ 10 mls/hr IV . Q24H ONE Rx#:[id number] art line pressure bag 33 36 21 Tube Feeding 495 540 315 Other 600 400 Output: Urine 950 965 660 Other: Voiding Method Indwelling Catheter Indwelling Catheter Indwelling Catheter ABP, PAP, CO, CI - Last Documented Arterial Blood Pressure 164/60 - Exam GENERAL: The patient is lying in bed and does not appear in acute distress. LUNG:Trach on ventilator. Abdomen: +ve PEG tube. NEUROLOGICAL: Limited because of patient's condition. Higher mental function: Is drowsy but following command (squeezing left hand, and wiggling his left foot very actively on command). Patient apparently flexing his left leg at the hip and knee quite better. 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 The right side is flaccid. Cranial nerves: He open his eyes to voice. Pupils are round, equal and reactive to light. He is tracking to right and left. No appreciable facial weakness. Is breathing over the vent. Oculocephalics and corneals are present. Rest is limited. Motor: The strength is limited. Patient strength is at least 4- in the left professor of nursing but no movement in the right professor of nursing. Patient wiggles his left foot at the toes and somewhat at the ankle very actively but no movement on the right foot. Decrease tone over the right. Cerebellum: Unable to assess. - Labs CBC & Chem 7: 08/29/22 05:27 08/29/22 05:27 Labs: Abnormal Lab Results - Last 24 Hours (Table) 08/27/22 08/28/22 08/28/22 Range/Units 17:56 00:37 04:35 RBC 3.11 L (4.30-5.90) m/uL Hgb 9.5 L (13.0-17.5) gm/dL Hct 28.2 L (39.0-53.0) % Plt Count 477 H (150-450) k/uL ABG pH (7.35-7.45) ABG pCO2 (35-45) mmHg ABG pO2 (83-108) mmHg ABG Total CO2 (19-24) mmol/L ABG O2 Saturation (94-97) % Sodium (137-145) mmol/L Creatinine (0.66-1.25) mg/dL Glucose (74-99) mg/dL POC Glucose (mg/dL) 152 H 205 H (70-110) mg/dL 08/28/22 08/28/22 08/28/22 Range/Units 04:35 05:34 05:49 RBC (4.30-5.90) m/uL Hgb (13.0-17.5) gm/dL Hct (39.0-53.0) % Plt Count (150-450) k/uL ABG pH 7.50 H (7.35-7.45) ABG pCO2 33 L (35-45) mmHg ABG pO2 78 L (83-108) mmHg ABG Total CO2 26 H (19-24) mmol/L ABG O2 Saturation 97.3 H (94-97) % Sodium 136 L (137-145) mmol/L Creatinine 0.60 L (0.66-1.25) mg/dL Glucose 160 H (74-99) mg/dL POC Glucose (mg/dL) 194 H (70-110) mg/dL 08/28/22 Range/Units 12:37 RBC (4.30-5.90) m/uL Hgb (13.0-17.5) gm/dL Hct (39.0-53.0) % Plt Count (150-450) k/uL ABG pH (7.35-7.45) ABG pCO2 (35-45) mmHg ABG pO2 (83-108) mmHg ABG Total CO2 (19-24) mmol/L ABG O2 Saturation (94-97) % Sodium (137-145) mmol/L Creatinine (0.66-1.25) mg/dL Glucose (74-99) mg/dL POC Glucose (mg/dL) 224 H (70-110) mg/dL Assessment and Plan Assessment: * Acute to subacute ischemic stroke at different territories which is suggestive of embolic/cardioembolic (CT medial aspect of the right cerebellar hemisphere, left frontal/parietal lobe deep white matter and right temporal lobe). LUCA is negative for thrombus or shunting. 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 No seizure on EEG. Mentation is unchanged and is following commands. * Acute hypoxic respiratory failure on mechanical ventilation s/p Trach * Pneumonia due due to Haemophilus. * Acute systolic CHF, pulmonary edema, ischemic cardiomyopathy, acute STEMI * Multiple left-sided enlarged lymph nodes further evaluation and workup is recommended. Findings concerning for neoplastic process until proven otherwise On CTA. We will defer to IM/critical care. * Status Post PEG tube 08/23/22 * Status post cardiac stent placement RCA 08/13/2022 * Diabetic ketoacidosis, resolved * Acute renal failure, resolved * History of asthma * Anemia Plan: * LUCA on 08/19/2022 revealed normal left radicular size with mild to moderately impaired systolic function with segmental wall motion abnormality. Severe aortic stenosis with mild aortic regurgitation. Mild to moderate MR. No shunting across the in the atrial septum. Normal appearance of the left atrial appendage. We will defer to cardiology for aortic stenosis * Initial EEG on 08/17/2022 was abnormal due to background slowing of severe degree. * Repeat EEG on 08/24/2022, also showed background slowing of mild to moderate degree. No epileptiform activity was seen. * CT head was performed, which revealed acute/subacute CVA on the medial aspect of the right cerebellar hemisphere. Additional acute/subacute CVA including the left frontal/parietal lobe deep white matter and right temporal lobe. I personally reviewed CT head, agreed with the findings. * CTA of head and neck revealed no evidence of dissection of the cervical internal carotid arteries or vertebral arteries. No evidence of intracranial high-grade stenosis or intracranial aneurysm. At least 50% stenosis at the left carotid bifurcation secondary to calcified plaque. Right vertebral artery origin stenosis which is suboptimally evaluated because of beam hardening artifact. * Carotid Doppler revealed plaque formation suggesting 25% stenosis in both ICAs. Vertebral artery flow was not demonstrated on either side. * Continue aspirin 81 mg daily and Brilinta 90 mg twice a day. * Hemoglobin A1c 9.2. Recommend optimize control of diabetes. * Consider event monitoring after discharge to rule out PAF. * Fasting lipid panel with cholesterol 123, LDL 81, HDL 16.9 and triglycerides 124. Continue Lipitor 40 mg daily. * Neurologically clear for transfer to LT[facility]. Patient will need outpatient follow-up with neurologist after discharge.
[2022-08-29 10:23] VITALS: BMI 29.2
--- NOTE | 2022-08-29 11:30 | P.PN ---
Subjective Progress Note Date: 08/29/22 Principal diagnosis: Acute hypoxic respiratory failure secondary to acute ST elevation myocardial infarction and acute systolic congestive heart failure This is a 67-year-old white male with history of problems including asthma, diabetes, degenerative joint disease, patient was brought into the ER yesterday with mostly sudden onset of shortness of breath and chest pain. Patient was in extreme respiratory distress upon arrival to the ER, he was placed on BiPAP initially, and he continued to have significant dyspnea. Patient was intubated by the ER physician, workup showed evidence of acute inferior ST elevation myocardial infarction. Patient was seen by cardiology on consultation, and he underwent cardiac catheterization and stenting of the RCA which was totally occl uded. In the meantime the patient was noted to have extensive pulmonary edema, acute hypoxic respiratory failure secondary to pulmonary edema, underlying pneumonia is not entirely ruled out but felt to be less likely. Nonetheless the patient will be covered empirically with antibiotics for presumptive aspiration pneumonia since significant airspace disease is noted in the right lung compared to the left lung. I saw this patient this morning, patient is intubated and mechanically ventilated, he is on assist control rate of 20, FiO2 was 100% I cut it down to 80%, he had tidal volume of 500, PEEP was at 14. As soon as I evaluated the patient, clearly the patient was not synchronous with mechanical ventilation, hence I recommended increasing his propofol to 75 mcg/kg/m, patient continued to remain asynchronous with the ventilator, and he seems to be working quite hard at it. Then I recommended starting the patient on Nimbex and start a Nimbex drip. ABG done later showed a pO2 of 125 pCO2 51 pH of 7.4, hence I increased the rate from 20-26. Another ABG is pending. Patient is requiring norepinephrine at 0.1 mcg/kg/m, he is also on insulin drip for what seems to be in DKA picture. His IV fluid at 20 mL per hour. Patient is now on Nimbex and on Lasix 40 mg IV push every 8 hours, and I added clindamycin empirically. Patient is ALLERGIC to penicillin. Patient had no good venous access when I arrived to see the patient this morning, hence on emergency basis I established a left femoral triple-lumen catheter, and a left radial arterial line. His echocardiogram showed ejection fraction of 40-45%. Patient is on Aggrastat, and he was on heparin earlier with a PTT over 200. Hence I recommended a groin access rather than having a neck or subclavian access after obtaining the ABG, I cut down his FiO2 down to 65%. Looking at the labs, apparently the patient sustained a acute kidney injury, BUN is 60 creatinine 2.38. His creatinine on admission was 1.97, I believe this is mostly related to hypoperfusion as well as related to his cardiac catheterization/contrast media. Reevaluated today on 08/14/22, patient remains in the ICU, remains intubated and mechanically ventilated. Remains on propofol and Nimbex. His ventilator settings are assist control rate of 26 FiO2 50% and PEEP of 12 and I cut it down to 10 tidal volume of 500. ABG this morning showed a pO2 of 75 pCO2 of 41 pH of 7.39. Hence no change was made except cutting down the PEEP from 12-10. Chest x-ray is showing definite improvement in his pulmonary edema but nonetheless continues to have significant interstitial edema especially in the right lung. His urine output is picking up nicely in spite of the fact that the patient is requiring norepinephrine at 0.1 mcg/kg/m. Patient is on Nimbex at 1 mcg/kg/m, propofol 40 mcg/kg/m, and he is on insulin drip at 4.25 units per hour. After reviewing his chest x-ray and reviewing his ABG, I felt it would be best to keep the patient sedated and paralyzed for now. Not much room to start weaning. His urine output is picking up nicely, and that would be helpful for further weaning as his pulmonary edema starts improving. WBC count today is 12 hemoglobin is 10.6. Blood sugar is 232. PTT is 51.3. And his BUN is 64 creatinine is down to 2.58 from 2.68 yesterday. His troponin yesterday was 3.39 and his BNP level was 11,200 On 08/27/2022, the patient is being seen for a follow-up. The patient remains off sedation. He was switched to a pressure support of 10 and a PEEP of 5 and he has been on same spontaneous breathing since yesterday. He seems to be tolerating spontaneous breathing relatively well. No tachypnea. Is able to gen erate adequate tidal volumes. No signs of any respiratory distress. No significant orotracheal secretions. His tracheostomy site is dry clean and intact. Of concern is his ongoing neuro status. The patient is post CVA. The patient has been seen by neurology on multiple occasions and clinically, he remains unchanged. He remains quite encephalopathic and sleepy and groggy. As mentioned, no sedation is used. Nevertheless, were not seeing any improvement in his level of alertness. He continues to have hemiplegia or hemiparesis on the right. He is receiving enteral feeding for nutritional support. Currently he is on Nepro at the rate of 45 mL an hour. His cardiac rhythm is sinus. He has no open wounds or sores. Dillard cath is in place. No signs of any fluid overload. His blood work shows a white cell count of 6.9 with a hemoglobin 9.0 and a platelet count of 424. The pH is 7.46 with a pCO2 of 37 and pO2 of 96. BUN is at 19 with a creatinine of 0.6 and the sodium levels of 139. No other significant events overnight. We'll keep the patient a pressure support mode of mechanical ventilation. No chest x-ray from today. 08/28/2022, the patient remains on a pressure support mode of mechanical ventilation. Neurologically over, his essentially the same as yesterday. At times, he wakes up and he opens his eyes spontaneously and follows simple commands. Upon stimulation, he also responds. Nevertheless, once left unstimulated, he would go to sleep and no major changes are seen. He continues to have weakness on the right side of the body related to his stroke. He is on support of 10 and a PEEP of 5. His oxygen is stable. No significant orotracheal secretions. He is on Nepro for enteral feeding and nutritional support. No leukocytosis and his white cell count is at 6.6 with a hemoglobin 9.5. Blood gas showed pH of 7.5 with a pCO2 of 33 and pO2 of 78. Sodium levels of 136, BUN is at 70 with a creatinine of 0.6. He is tolerating enteral feeding for nutritional support. He is afebrile. Medications remain unchanged. Reevaluated today on 08/29/22, patient remains in the ICU, remains on mechanical ventilation, however he is on pressure support of 10. Patient is able to move 400+ cc per tidal volume and his rate is about 26. He is on Nepro for nutritional support, patient is being considered for [facility]. FiO2 is 30%. Chest x-ray showed minimal basilar atelectasis. Patient does follow simple instructions like moving and wiggling his toes on the left side. He does have significant right-sided hemiplegia. He is tolerating enteral feeding. And we are waiting to hear from [facility] for possible transfer once is approved by his insurance. He had hypernatremia which has corrected nicely and I discontinued his free water flushes today. Kept him on D5W at KVO. Patient is clearly not ready to be placed on trach collar, he has been tolerating pressure support since last Monday which is 3 days ago. His arterial line has been present for over 3 weeks, and I ordered discontinuation o f his arterial line. ABG today showed a pO2 of 101 pCO2 35 pH of 7.47 and this is on 30% FiO2. WBC count of 6.7 hemoglobin is 9 lites are normal renal profile is normal. Chest x-ray showed minimal bibasilar atelectasis. Objective - Vital Signs Vital signs: Vital Signs Temp 98.4 F 08/29/22 08:00 Pulse 98 08/29/22 11:00 Resp 20 08/29/22 11:00 BP 153/88 08/29/22 11:00 Pulse Ox 93 L 08/29/22 11:00 FiO2 30 08/29/22 10:44 Intake & Output 08/28/22 08/29/22 08/29/22 18:59 06:59 18:59 Intake Total 1296 1354 466 Output Total 1155 930 515 Balance 141 424 -49 Weight 92.6 kg 92.6 kg Intake: IV 156 169 46 D5W @ 10ml/hr 120 130 40 art line pressure bag 36 39 6 Tube Feeding 540 585 180 Other 600 600 240 Output: Urine 1155 930 515 Other: Voiding Method Indwelling Catheter Indwelling Catheter Indwelling Catheter ABP, PAP, CO, CI - Last Documented Arterial Blood Pressure 155/65 - Exam Physical Exam: Revealed a 67-year-old white male on mechanical ventilation, has tracheostomy in site. Head: atraumatic, normocephalic. HEENT:[Neck is supple.] [No neck masses.] [No thyromegaly.] [No JVD.] Tracheostomy seems to be intact. Chest: [Symmetrical chest expansion diminished breath sounds at the bases no crackles or rhonchi or wheezes Cardiac Exam: [Normal S1 and S2, no S3 gallop, no murmur.] Abdomen: [Soft, nontender, no megaly, no rebound, no guarding, normal bowel sounds.] PEG tube seems to be intact. Extremities: [No clubbing, no edema, no cyanosis.] Right sided PICC line is noted. Left radial arterial line noted and it will be discontinued. Skin: No rashes. Neurological Exam: Arousable, follows instructions, however he has dense hemiplegia on the right side Psychiatric: Depressed mood, flat affect, cannot fully assess mental status except the patient follows simple instructions. - Labs CBC & Chem 7: 08/29/22 05:27 08/29/22 05:27 Labs: Abnormal Lab Results - Last 24 Hours (Table) 08/28/22 08/28/22 08/29/22 Range/Units 12:37 17:45 00:27 RBC (4.30-5.90) m/uL Hgb (13.0-17.5) gm/dL Hct (39.0-53.0) % Plt Count (150-450) k/uL ABG pH (7.35-7.45) ABG Total CO2 (19-24) mmol/L ABG O2 Saturation (94-97) % Sodium (137-145) mmol/L Creatinine (0.66-1.25) mg/dL Glucose (74-99) mg/dL POC Glucose (mg/dL) 224 H 181 H 218 H (70-110) mg/dL Calcium (8.4-10.2) mg/dL 08/29/22 08/29/22 08/29/22 Range/Units 05:27 05:27 05:29 RBC 3.06 L (4.30-5.90) m/uL Hgb 9.0 L (13.0-17.5) gm/dL Hct 27.2 L (39.0-53.0) % Plt Count 483 H (150-450) k/uL ABG pH (7.35-7.45) ABG Total CO2 (19-24) mmol/L ABG O2 Saturation (94-97) % Sodium 133 L (137-145) mmol/L Creatinine 0.58 L (0.66-1.25) mg/dL Glucose 177 H (74-99) mg/dL POC Glucose (mg/dL) 194 H (70-110) mg/dL Calcium 8.3 L (8.4-10.2) mg/dL 08/29/22 Range/Units 05:31 RBC (4.30-5.90) m/uL Hgb (13.0-17.5) gm/dL Hct (39.0-53.0) % Plt Count (150-450) k/uL ABG pH 7.47 H (7.35-7.45) ABG Total CO2 26 H (19-24) mmol/L ABG O2 Saturation 98.7 H (94-97) % Sodium (137-145) mmol/L Creatinine (0.66-1.25) mg/dL Glucose (74-99) mg/dL POC Glucose (mg/dL) (70-110) mg/dL Calcium (8.4-10.2) mg/dL Assessment and Plan Assessment: Impression: Acute hypoxic respiratory failure secondary to acute systolic congestive heart failure, pulmonary edema, secondary to ischemic cardiomyopathy and acute ST elevation myocardial infarction, patient was intubated on 08/13/2022. Since then the patient failed to wean and he is status post tracheostomy. Status post cardiac catheterization and stenting of totally occluded RCA. Acute ischemic cardiomyopathy and LV dysfunction. Acute CVA with right sided lina-paralysis/hemiplegia History of diabetes. Possibly type 1 diabetes Acute kidney injury, resolved. History of asthma severity of which is unclear, but the patient is on albuterol and Advair on a regular basis at home Degenerative joint disease. Right groin fungal dermatitis. Recommendation: Continue ventilatory support. Continue pressure support mechanical ventilation, not quite ready to transition to a trach collar. Continue nutritional support, patient is on Nepro at 45 mL/h Discontinue radial arterial line. Avoid sedation. Continue diuretics. As needed. Continue insulin GI and DVT prophylaxis. Continue transfer plans to [facility] once approval by insurance. Overall long-term prognosis remains guarded. We will continue to follow. Critical care time is over 30 minutes Time with Patient: Greater than 30
[2022-08-29 11:37] LABS: Glucose,Whole Blood 228 mg/dL (70-110)
--- NOTE | 2022-08-29 13:18 | P.PN ---
Subjective Progress Note Date: 08/29/22 CHIEF COMPLAINT: Respiratory failure HISTORY OF PRESENT ILLNESS: Patient remains in the ICU on mechanical ventilation. He is status post tracheostomy and PEG tube placement. He is tolerating his tube feeds. Tube feeds are currently at 45 mL per hour. He is speaking being considered for [facility] to [facility]. Awaiting insurance authorization. Afebrile. WBC 6.7 PHYSICAL EXAM: VITAL SIGNS: Reviewed. GENERAL: On mechanical ventilation HEENT: Tracheostomy site with clearish drainage. Intact. ABDOMEN: Soft. Nondistended. Nontender. PEG tube site clean dry and intact ASSESSMENT: 1. Acute hypoxic respiratory failure status post tracheostomy placement 2. Severe protein calorie malnutrition status post PEG tube placement 3. Acute CHF exacerbation 4. Acute ST elevated [place] status post stent 5. Acute CVA PLAN: -Awaiting insurance authorization for transfer to [facility] -Continue tube feeds -Continue supportive care Physician [employer] note has been reviewed by physician. Signing provider agrees with the documented findings, assessment, and plan of care. Objective - Vital Signs Vital signs: Vital Signs Temp 98.7 F 08/29/22 12:00 Pulse 92 08/29/22 12:00 Resp 20 08/29/22 12:00 BP 101/66 08/29/22 12:00 Pulse Ox 94 L 08/29/22 12:00 FiO2 30 08/29/22 12:00 Intake & Output 08/28/22 08/29/22 08/29/22 18:59 06:59 18:59 Intake Total 1296 1354 551 Output Total 1155 930 575 Balance 141 424 -24 Weight 92.6 kg 92.6 kg Intake: IV 156 169 56 D5W @ 10ml/hr 120 130 50 art line pressure bag 36 39 6 Tube Feeding 540 585 225 Other 600 600 270 Output: Urine 1155 930 575 Other: Voiding Method Indwelling Catheter Indwelling Catheter Indwelling Catheter ABP, PAP, CO, CI - Last Documented Arterial Blood Pressure 155/65 - Labs CBC & Chem 7: 08/29/22 05:27 08/29/22 05:27 Labs: Abnormal Lab Results - Last 24 Hours (Table) 08/28/22 08/29/22 08/29/22 Range/Units 17:45 00:27 05:27 RBC 3.06 L (4.30-5.90) m/uL Hgb 9.0 L (13.0-17.5) gm/dL Hct 27.2 L (39.0-53.0) % Plt Count 483 H (150-450) k/uL ABG pH (7.35-7.45) ABG Total CO2 (19-24) mmol/L ABG O2 Saturation (94-97) % Sodium (137-145) mmol/L Creatinine (0.66-1.25) mg/dL Glucose (74-99) mg/dL POC Glucose (mg/dL) 181 H 218 H (70-110) mg/dL Calcium (8.4-10.2) mg/dL 08/29/22 08/29/22 08/29/22 Range/Units 05:27 05:29 05:31 RBC (4.30-5.90) m/uL Hgb (13.0-17.5) gm/dL Hct (39.0-53.0) % Plt Count (150-450) k/uL ABG pH 7.47 H (7.35-7.45) ABG Total CO2 26 H (19-24) mmol/L ABG O2 Saturation 98.7 H (94-97) % Sodium 133 L (137-145) mmol/L Creatinine 0.58 L (0.66-1.25) mg/dL Glucose 177 H (74-99) mg/dL POC Glucose (mg/dL) 194 H (70-110) mg/dL Calcium 8.3 L (8.4-10.2) mg/dL 08/29/22 Range/Units 11:34 RBC (4.30-5.90) m/uL Hgb (13.0-17.5) gm/dL Hct (39.0-53.0) % Plt Count (150-450) k/uL ABG pH (7.35-7.45) ABG Total CO2 (19-24) mmol/L ABG O2 Saturation (94-97) % Sodium (137-145) mmol/L Creatinine (0.66-1.25) mg/dL Glucose (74-99) mg/dL POC Glucose (mg/dL) 228 H (70-110) mg/dL Calcium (8.4-10.2) mg/dL
[2022-08-29 17:35] LABS: Glucose,Whole Blood 132 mg/dL (70-110)
[2022-08-29] MEDS: LOSARTAN 25 MG TAB PO SCH (17:45)
[2022-08-29] MEDS: ATORVASTATIN 40 MG TAB PO SCH (20:27)
[2022-08-29 23:49] LABS: Glucose,Whole Blood 160 mg/dL (70-110)
[2022-08-30] MEDS: INSULIN ASPART (NovoLOG) 100 UNIT/ML VIAL SQ SCH ×6 (00:10→12:15)
[2022-08-30] MEDS: HEPARIN SODIUM,PORCINE/PF 5,000 UNIT/0.5 ML SYRINGE SQ SCH ×2 (00:10→08:03)
[2022-08-30] MEDS: HYDROmorphone 0.5 MG/0.5 ML SYRINGE IVP PRN ×2 (03:10→08:04)
[2022-08-30 04:10] LABS: Glucose,Whole Blood 175 mg/dL (70-110)
[2022-08-30 05:48] LABS: ABG HCO3 26 mmol/L (21-25); ABG Oxygen Saturation 98.7 % (94-97); ABG PCO2 35 mmHg (35-45); ABG PH 7.48 (7.35-7.45); ABG PO2 96 mmHg (83-108); ABG TCO2 27 mmol/L (19-24); Allen Test Performed? Yes
[2022-08-30 05:56] LABS: Glucose,Whole Blood 223 mg/dL (70-110)
[2022-08-30] MEDS: INSULIN DETEMIR (LEVEMIR) 100 UNIT/ML SYR SQ SCH (06:56)
--- NOTE | 2022-08-30 07:21 | XR ---
EXAMINATION TYPE: XR chest 1V portable DATE OF EXAM: 08/30/2022 COMPARISON: 08/21/2022 INDICATION: Tracheostomy TECHNIQUE: Single frontal view of the chest is obtained. FINDINGS: The heart size is normal. The pulmonary vasculature is normal. Mild infiltrate is at the left base. Minimal effusion is not excluded. Tracheostomy tube is in the mi dline. Patient is rotated to the right. PICC line enters on the right tip in the distal superior vena cava region. IMPRESSION: 1. Mild left basilar infiltrate. Correlate for atelectasis or pneumonia. 2. Tracheostomy tube in the midline.
[2022-08-30 07:40] LABS: HGB 9.5 gm/dL (13.0-17.5); Hypochromasia Marked; MCH 29.9 pg (25.0-35.0); MCHC 32.8 g/dL (31.0-37.0); MCV 91.2 fL (80.0-100.0); Mean Platelet Volume 7.5; Platelet Count 450 k/uL (150-450); Poikilocytosis Moderate; RBC 3.18 m/uL (4.30-5.90); RDW 14.1 % (11.5-15.5); WBC 6.3 k/uL (3.8-10.6)
[2022-08-30 07:50] LABS: African American GFR (CKD) >90 (>60 ml/min/1.73 sqM); Anion Gap 6 mmol/L; Blood Urea Nitrogen 18 mg/dL (9-20); Calcium 8.4 mg/dL (8.4-10.2); Carbon Dioxide 24 mmol/L (22-30); Chloride 105 mmol/L (98-107); Glucose 236 mg/dL (74-99); Non-African American GFR(CKD) >90 (>60 ml/min/1.73 sqM); Sodium 135 mmol/L (137-145)
[2022-08-30] MEDS: PANTOPRAZOLE 40 MG/10 ML VIAL IVP SCH (08:03)
[2022-08-30] MEDS: TICAGRELOR 90 MG TAB PO SCH (08:04)
[2022-08-30] MEDS: CHLORHEXIDINE GLUCONATE 15 ML CUP MUCOUS MEM SCH (08:04)
[2022-08-30] MEDS: amLODIPine 10 MG TAB PO SCH (08:04)
[2022-08-30] MEDS: ASPIRIN 81 MG PO SCH (08:04)
[2022-08-30] MEDS: METOPROLOL SUCCINATE (ER) 50 MG TAB.ER.24H PO SCH (08:04)
[2022-08-30] MEDS ORDERED: SODIUM CHLORIDE 0.9% 500 ML 500 ML IV ONE (09:24)
--- NOTE | 2022-08-30 09:32 | P.PN ---
Subjective Progress Note Date: 08/29/22 08/29/2022: Patient was seen for a follow-up. Patient is laying in the bed, has tracheostomy. Patient essentially unchanged. Offers no complaints. 08/28/2022: Patient was seen for a follow-up. Patient's significant other was present. Patient is laying in the bed. Patient has tracheostomy. Per nursing report, he has been on CPAP since Monday 10:30 AM, which is 2 days ago. Patient continues to be severely hemiplegic on the right side, with weakness on the left as well. 08/26/2022: Patient was seen for a follow-up. Patient clinically unchanged as compared to yesterday. Patient is still having greenish mucus from the track site. Patient continues to be groggy. Patient not on any sedation. Patient has tracheostomy on a mechanical ventilator. Also has PEG tube. 08/25/2022: Patient was initially seen by myself on 08/17/2022. Please refer to my note for details. Subsequently patient was seen by Dr. Ab Vega over the next week. Please refer to his notes for details as well. Came to see patient for a follow-up. Patient has bilateral hemispheric strokes. Patient's LUCA was negative. CTA of head and neck were negative. Patient now has track and PEG tube. Repeat EEG was negative for any seizure activity. There was mild to moderate encephalopathy. Patient currently on aspirin 81 mg daily and Brilinta 90 mg twice a day. Patient at present laying comfortably in the bed. Patient has tracheostomy tube. No distress. Please refer to examination below. SOME OF THE WORK-UP DURING THIS HOSPITAL VISIT CONSISTED OF: Lipid panels triglyceride 124, cholesterol 123, LDLs 81 and HDL is a 60 Hemoglobin A1c 9.2. White virus to start nondetected CT head is reported as acute/subacute CVA on the medial aspect of the right cerebellar hemisphere. Additional acute/subacute CVA including the left frontal/parietal lobe deep white matter and right temporal lobe Repeat CT head on 08/18/22: Overall similar examination from the yesterday with acute/subacute CVA in the medial aspect of the right cerebellar hemisphere, left frontal parietal lobe deep white matter and right temporal lobe. No hemorrhagic conversion. Different vascular territories suggest embolic phenomena. Most recent CT head on 08/21/2022: It is reported as similar evolving subacute infarct anterior pole right temporal and medial right cerebellar hemisphere. Either subacute or more chronic infarct left frontal parietal junction superiorly. Background moderate burden of chronic small vessel ischemic disease. No hemorrhagic transformation, midline shift or herniation. Similar mild hydrocephalus. There may be due to central atrophy. Correlate exclude a component of NPH. Possible acute right sided ethmoid sinusitis. 2-D echo from 08/13/2022 revealed mildly increase septal wall thickness. Left ventricular systolic function is decreased at 40-45%. Inferior hypokinesis. Moderate to severe aortic stenosis. EEG was performed, which was abnormal due to background slowing of severe degree. This is suggestive of generalized cerebral dysfunction as can be seen with toxic metabolic encephalopathy or due to diffuse structural brain abnormality. Clinical correlation is recommended. No epileptiform activity was seen. Carotid duplex is reported as there is plaque formation in image and measurements suggest 25% stenosis in both internal carotid arteries. Vertebral artery flow was not demonstrated on this exam. Transesophageal echocardiogram was reported as normal size with mild mildly impaired systolic function with the segmental wall motion abnormality. Ejection fraction of 40-45%. Severe aortic stenosis with mild aortic regurgitation. Mild to moderate mitral regurgitation. No shunting across the intra-atrial septum. Normal appearance of left atrial appendage. CTA head and neck is reported as no evidence of dissection of cervical internal carotid arteries or vertebral arteries. No evidence of intracranial high-grade stenosis or intracranial aneurysm. At least 50% stenosis at the left carotid bifurcation secondary to calcified plaque. No evidence of hemodynamic significant stenosis of the right carotid bifurcation. Right vertebral origin stenosis which is suboptimally evaluated given beam hardening artifact from the patient's shoulders. Multiple left-sided enlarged lymph nodes further evaluation and workup is recommended. Findings concerning for neoplastic process until proven otherwise. Right upper lobe atelectasis versus developing airspace disease. I would defer to internal medicine/pulmonary medicine for abnormal enlarged lymph nodes. Objective - Vital Signs Vital signs: Vital Signs Temp 98.6 F 08/30/22 08:00 Pulse 93 08/30/22 09:00 Resp 20 08/30/22 09:00 BP 124/63 08/30/22 09:00 Pulse Ox 96 08/30/22 09:00 FiO2 30 08/30/22 08:51 Intake & Output 08/29/22 08/30/22 08/30/22 18:59 06:59 18:59 Intake Total 1006 770 160 Output Total 1030 925 95 Balance -24 -155 65 Weight 92.6 kg 91 kg Intake: IV 126 120 20 D5W @ 10ml/hr 120 120 20 art line pressure bag 6 Tube Feeding 540 540 90 Other 340 110 50 Output: Urine 1030 925 95 Other: Voiding Method Indwelling Catheter Indwelling Catheter Indwelling Catheter ABP, PAP, CO, CI - Last Documented Arterial Blood Pressure 155/65 - Exam GENERAL: The patient is lying in bed and does not appear in acute distress. LUNG:Trach on ventilator. Abdomen: +ve PEG tube. NEUROLOGICAL: Limited because of patient's condition. Higher mental function: Is drowsy. Today patient did open his eyes more widely to calling his name. He made eye contact, follows directions. Cranial nerves: He open his eyes to voice. Pupils are round, equal and reactive to light. He is tracking to right and left. Patient has no obvious facial droop at rest, however patient has prominent right facial weakness, central type on active testing. Motor: The strength is limited. 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 Patient wiggles his left foot at the toes and somewhat at the ankle very actively but no movement on the right foot. Decrease tone over the right. Cerebellum: Unable to assess. - Labs CBC & Chem 7: 08/30/22 06:37 08/30/22 06:37 Labs: Abnormal Lab Results - Last 24 Hours (Table) 08/29/22 08/29/22 08/29/22 Range/Units 11:34 17:34 23:46 RBC (4.30-5.90) m/uL Hgb (13.0-17.5) gm/dL Hct (39.0-53.0) % ABG pH (7.35-7.45) ABG HCO3 (21-25) mmol/L ABG Total CO2 (19-24) mmol/L ABG O2 Saturation (94-97) % Sodium (137-145) mmol/L Creatinine (0.66-1.25) mg/dL Glucose (74-99) mg/dL POC Glucose (mg/dL) 228 H 132 H 160 H (70-110) mg/dL 08/30/22 08/30/22 08/30/22 Range/Units 04:08 05:41 05:55 RBC (4.30-5.90) m/uL Hgb (13.0-17.5) gm/dL Hct (39.0-53.0) % ABG pH 7.48 H (7.35-7.45) ABG HCO3 26 H (21-25) mmol/L ABG Total CO2 27 H (19-24) mmol/L ABG O2 Saturation 98.7 H (94-97) % Sodium (137-145) mmol/L Creatinine (0.66-1.25) mg/dL Glucose (74-99) mg/dL POC Glucose (mg/dL) 175 H 223 H (70-110) mg/dL 08/30/22 08/30/22 Range/Units 06:37 06:37 RBC 3.18 L (4.30-5.90) m/uL Hgb 9.5 L (13.0-17.5) gm/dL Hct 29.0 L (39.0-53.0) % ABG pH (7.35-7.45) ABG HCO3 (21-25) mmol/L ABG Total CO2 (19-24) mmol/L ABG O2 Saturation (94-97) % Sodium 135 L (137-145) mmol/L Creatinine 0.61 L (0.66-1.25) mg/dL Glucose 236 H (74-99) mg/dL POC Glucose (mg/dL) (70-110) mg/dL Assessment and Plan Assessment: * Acute to subacute ischemic stroke at different territories which is suggestive of embolic/cardioembolic (CT medial aspect of the right cerebellar hemisphere, left frontal/parietal lobe deep white matter and right temporal lobe). LUCA is negative for thrombus or shunting. 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 No seizure on EEG. Mentation is unchanged and is following commands. * Acute hypoxic respiratory failure on mechanical ventilation s/p Trach * Pneumonia due due to Haemophilus. * Acute systolic CHF, pulmonary edema, ischemic cardiomyopathy, acute STEMI * Multiple left-sided enlarged lymph nodes further evaluation and workup is recommended. Findings concerning for neoplastic process until proven otherwise On CTA. We will defer to IM/critical care. * Status Post PEG tube 08/23/22 * Status post cardiac stent placement RCA 08/13/2022 * Diabetic ketoacidosis, resolved * Acute renal failure, resolved * History of asthma * Anemia Plan: * Patient is clinically unchanged. Neurologically stable. * LUCA on 08/19/2022 revealed normal left radicular size with mild to moderately impaired systolic function with segmental wall motion abnormality. Severe aortic stenosis with mild aortic regurgitation. Mild to moderate MR. No shunting across the in the atrial septum. Normal appearance of the left atrial appendage. We will defer to cardiology for aortic stenosis * Initial EEG on 08/17/2022 was abnormal due to background slowing of severe degree. * Repeat EEG on 08/24/2022, also showed background slowing of mild to moderate degree. No epileptiform activity was seen. * CT head was performed, which revealed acute/subacute CVA on the medial aspect of the right cerebellar hemisphere. Additional acute/subacute CVA including the left frontal/parietal lobe deep white matter and right temporal lobe. I p ersonally reviewed CT head, agreed with the findings. * CTA of head and neck revealed no evidence of dissection of the cervical internal carotid arteries or vertebral arteries. No evidence of intracranial high-grade stenosis or intracranial aneurysm. At least 50% stenosis at the left carotid bifurcation secondary to calcified plaque. Right vertebral artery origin stenosis which is suboptimally evaluated because of beam hardening artifact. * Carotid Doppler revealed plaque formation suggesting 25% stenosis in both ICAs. Vertebral artery flow was not demonstrated on either side. * Continue aspirin 81 mg daily and Brilinta 90 mg twice a day. * Hemoglobin A1c 9.2. Recommend optimize control of diabetes. * Consider event monitoring after discharge to rule out PAF. * Fasting lipid panel with cholesterol 123, LDL 81, HDL 16.9 and triglycerides 124. Continue Lipitor 40 mg daily. * Neurologically clear for transfer to LTAC. Patient will need outpatient follow-up with neurologist after discharge.
--- NOTE | 2022-08-30 11:23 | P.PN ---
Subjective Progress Note Date: 08/30/22 Principal diagnosis: Acute hypoxic respiratory failure secondary to acute ST elevation myocardial infarction and acute systolic congestive heart failure This is a 67-year-old white male with history of problems including asthma, diabetes, degenerative joint disease, patient was brought into the ER yesterday with mostly sudden onset of shortness of breath and chest pain. Patient was in extreme respiratory distress upon arrival to the ER, he was placed on BiPAP initially, and he continued to have significant dyspnea. Patient was intubated by the ER physician, workup showed evidence of acute inferior ST elevation myocardial infarction. Patient was seen by cardiology on consultation, and he underwent cardiac catheterization and stenting of the RCA which was totally occl uded. In the meantime the patient was noted to have extensive pulmonary edema, acute hypoxic respiratory failure secondary to pulmonary edema, underlying pneumonia is not entirely ruled out but felt to be less likely. Nonetheless the patient will be covered empirically with antibiotics for presumptive aspiration pneumonia since significant airspace disease is noted in the right lung compared to the left lung. I saw this patient this morning, patient is intubated and mechanically ventilated, he is on assist control rate of 20, FiO2 was 100% I cut it down to 80%, he had tidal volume of 500, PEEP was at 14. As soon as I evaluated the patient, clearly the patient was not synchronous with mechanical ventilation, hence I recommended increasing his propofol to 75 mcg/kg/m, patient continued to remain asynchronous with the ventilator, and he seems to be working quite hard at it. Then I recommended starting the patient on Nimbex and start a Nimbex drip. ABG done later showed a pO2 of 125 pCO2 51 pH of 7.4, hence I increased the rate from 20-26. Another ABG is pending. Patient is requiring norepinephrine at 0.1 mcg/kg/m, he is also on insulin drip for what seems to be in DKA picture. His IV fluid at 20 mL per hour. Patient is now on Nimbex and on Lasix 40 mg IV push every 8 hours, and I added clindamycin empirically. Patient is ALLERGIC to penicillin. Patient had no good venous access when I arrived to see the patient this morning, hence on emergency basis I established a left femoral triple-lumen catheter, and a left radial arterial line. His echocardiogram showed ejection fraction of 40-45%. Patient is on Aggrastat, and he was on heparin earlier with a PTT over 200. Hence I recommended a groin access rather than having a neck or subclavian access after obtaining the ABG, I cut down his FiO2 down to 65%. Looking at the labs, apparently the patient sustained a acute kidney injury, BUN is 60 creatinine 2.38. His creatinine on admission was 1.97, I believe this is mostly related to hypoperfusion as well as related to his cardiac catheterization/contrast media. Reevaluated today on 08/14/22, patient remains in the ICU, remains intubated and mechanically ventilated. Remains on propofol and Nimbex. His ventilator settings are assist control rate of 26 FiO2 50% and PEEP of 12 and I cut it down to 10 tidal volume of 500. ABG this morning showed a pO2 of 75 pCO2 of 41 pH of 7.39. Hence no change was made except cutting down the PEEP from 12-10. Chest x-ray is showing definite improvement in his pulmonary edema but nonetheless continues to have significant interstitial edema especially in the right lung. His urine output is picking up nicely in spite of the fact that the patient is requiring norepinephrine at 0.1 mcg/kg/m. Patient is on Nimbex at 1 mcg/kg/m, propofol 40 mcg/kg/m, and he is on insulin drip at 4.25 units per hour. After reviewing his chest x-ray and reviewing his ABG, I felt it would be best to keep the patient sedated and paralyzed for now. Not much room to start weaning. His urine output is picking up nicely, and that would be helpful for further weaning as his pulmonary edema starts improving. WBC count today is 12 hemoglobin is 10.6. Blood sugar is 232. PTT is 51.3. And his BUN is 64 creatinine is down to 2.58 from 2.68 yesterday. His troponin yesterday was 3.39 and his BNP level was 11,200 On 08/27/2022, the patient is being seen for a follow-up. The patient remains off sedation. He was switched to a pressure support of 10 and a PEEP of 5 and he has been on same spontaneous breathing since yesterday. He seems to be tolerating spontaneous breathing relatively well. No tachypnea. Is able to gen erate adequate tidal volumes. No signs of any respiratory distress. No significant orotracheal secretions. His tracheostomy site is dry clean and intact. Of concern is his ongoing neuro status. The patient is post CVA. The patient has been seen by neurology on multiple occasions and clinically, he remains unchanged. He remains quite encephalopathic and sleepy and groggy. As mentioned, no sedation is used. Nevertheless, were not seeing any improvement in his level of alertness. He continues to have hemiplegia or hemiparesis on the right. He is receiving enteral feeding for nutritional support. Currently he is on Nepro at the rate of 45 mL an hour. His cardiac rhythm is sinus. He has no open wounds or sores. Dillard cath is in place. No signs of any fluid overload. His blood work shows a white cell count of 6.9 with a hemoglobin 9.0 and a platelet count of 424. The pH is 7.46 with a pCO2 of 37 and pO2 of 96. BUN is at 19 with a creatinine of 0.6 and the sodium levels of 139. No other significant events overnight. We'll keep the patient a pressure support mode of mechanical ventilation. No chest x-ray from today. 08/28/2022, the patient remains on a pressure support mode of mechanical ventilation. Neurologically over, his essentially the same as yesterday. At times, he wakes up and he opens his eyes spontaneously and follows simple commands. Upon stimulation, he also responds. Nevertheless, once left unstimulated, he would go to sleep and no major changes are seen. He continues to have weakness on the right side of the body related to his stroke. He is on support of 10 and a PEEP of 5. His oxygen is stable. No significant orotracheal secretions. He is on Nepro for enteral feeding and nutritional support. No leukocytosis and his white cell count is at 6.6 with a hemoglobin 9.5. Blood gas showed pH of 7.5 with a pCO2 of 33 and pO2 of 78. Sodium levels of 136, BUN is at 70 with a creatinine of 0.6. He is tolerating enteral feeding for nutritional support. He is afebrile. Medications remain unchanged. Reevaluated today on 08/29/22, patient remains in the ICU, remains on mechanical ventilation, however he is on pressure support of 10. Patient is able to move 400+ cc per tidal volume and his rate is about 26. He is on Nepro for nutritional support, patient is being [facility] FiO2 is 30%. Chest x-ray showed minimal basilar atelectasis. Patient does follow simple instructions like moving and wiggling his toes on the left side. He does have significant right-sided hemiplegia. He is tolerating enteral feeding. And we are waiting to hear from [facility] for possible transfer once is approved by his insurance. He had hypernatremia which has corrected nicely and I discontinued his free water flushes today. Kept him on D5W at KVO. Patient is clearly not ready to be placed on trach collar, he has been tolerating pressure support since last Monday which is 3 days ago. His arterial line has been present for over 3 weeks, and I ordered discontinuation o f his arterial line. ABG today showed a pO2 of 101 pCO2 35 pH of 7.47 and this is on 30% FiO2. WBC count of 6.7 hemoglobin is 9 lites are normal renal profile is normal. Chest x-ray showed minimal bibasilar atelectasis. Reevaluated today on 08/30/22, patient remains in the ICU, remains on mechanical ventilation, he was on pressure support of 10 for the last few days, and he was tolerating pressure support well, however today he was noted to have more apnea episodes, hence I added IMV of 6 to his vent settings. Patient remains on enteral feeding via PEG tube, continues to have a PICC line in place, chest x- ray continues to show minimal atelectasis. Patient is arousable, follows simple instructions, however he seems to be paralyzed on the right side. Supposedly the [facility] a bed becomes available is already approved. CBC is relatively unremarkable lites are normal renal profile is normal Objective - Vital Signs Vital signs: Vital Signs Temp 98.6 F 08/30/22 08:00 Pulse 82 08/30/22 10:00 Resp 16 08/30/22 10:00 BP 112/81 08/30/22 10:00 Pulse Ox 97 08/30/22 10:00 FiO2 30 08/30/22 08:51 Intake & Output 08/29/22 08/30/22 08/30/22 18:59 06:59 18:59 Intake Total 1006 770 705 Output Total 1030 925 145 Balance -24 -155 560 Weight 92.6 kg 91 kg Intake: IV 126 120 20 D5W @ 10ml/hr 120 120 20 art line pressure bag 6 Intake, IV Titration 500 Amount Sodium Chloride 0.9% 500 500 ml 500 ml @ 999 mls/hr IV .Q31M ONE Rx#:[id number] Tube Feeding 540 540 135 Other 340 110 50 Output: Urine 1030 925 145 Other: Voiding Method Indwelling Catheter Indwelling Catheter Indwelling Catheter ABP, PAP, CO, CI - Last Documented Arterial Blood Pressure 155/65 - Exam Physical Exam: Revealed a 67-year-old white male on mechanical ventilation, has tracheostomy in site. Head: atraumatic, normocephalic. HEENT:[Neck is supple.] [No neck masses.] [No thyromegaly.] [No JVD.] Tracheostomy seems to be intact. Chest: [Symmetrical chest expansion diminished breath sounds at the bases no crackles or rhonchi or wheezes Cardiac Exam: [Normal S1 and S2, no S3 gallop, no murmur.] Abdomen: [Soft, nontender, no megaly, no rebound, no guarding, normal bowel sounds.] PEG tube seems to be intact. Extremities: [No clubbing, no edema, no cyanosis.] Right sided PICC line is noted. Left radial arterial line noted and it will be discontinued. Skin: No rashes. Neurological Exam: Arousable, follows instructions, however he has dense hemiplegia on the right side Psychiatric: Depressed mood, flat affect - Labs CBC & Chem 7: 08/30/22 06:37 08/30/22 06:37 Labs: Abnormal Lab Results - Last 24 Hours (Table) 08/29/22 08/29/22 08/29/22 Range/Units 11:34 17:34 23:46 RBC (4.30-5.90) m/uL Hgb (13.0-17.5) gm/dL Hct (39.0-53.0) % ABG pH (7.35-7.45) ABG HCO3 (21-25) mmol/L ABG Total CO2 (19-24) mmol/L ABG O2 Saturation (94-97) % Sodium (137-145) mmol/L Creatinine (0.66-1.25) mg/dL Glucose (74-99) mg/dL POC Glucose (mg/dL) 228 H 132 H 160 H (70-110) mg/dL 08/30/22 08/30/22 08/30/22 Range/Units 04:08 05:41 05:55 RBC (4.30-5.90) m/uL Hgb (13.0-17.5) gm/dL Hct (39.0-53.0) % ABG pH 7.48 H (7.35-7.45) ABG HCO3 26 H (21-25) mmol/L ABG Total CO2 27 H (19-24) mmol/L ABG O2 Saturation 98.7 H (94-97) % Sodium (137-145) mmol/L Creatinine (0.66-1.25) mg/dL Glucose (74-99) mg/dL POC Glucose (mg/dL) 175 H 223 H (70-110) mg/dL 08/30/22 08/30/22 Range/Units 06:37 06:37 RBC 3.18 L (4.30-5.90) m/uL Hgb 9.5 L (13.0-17.5) gm/dL Hct 29.0 L (39.0-53.0) % ABG pH (7.35-7.45) ABG HCO3 (21-25) mmol/L ABG Total CO2 (19-24) mmol/L ABG O2 Saturation (94-97) % Sodium 135 L (137-145) mmol/L Creatinine 0.61 L (0.66-1.25) mg/dL Glucose 236 H (74-99) mg/dL POC Glucose (mg/dL) (70-110) mg/dL Assessment and Plan Assessment: Impression: Acute hypoxic respiratory failure secondary to acute systolic congestive heart failure, pulmonary edema, secondary to ischemic cardiomyopathy and acute ST elevation myocardial infarction, patient was intubated on 08/13/2022. Since then the patient failed to wean and he is status post tracheostomy. Status post cardiac catheterization and stenting of totally occluded RCA. Acute ischemic cardiomyopathy and LV dysfunction. Acute CVA with right sided lina-paralysis/hemiplegia History of diabetes. Possibly type 1 diabetes Acute kidney injury, resolved. History of asthma severity of which is unclear, but the patient is on albuterol and Advair on a regular basis at home Degenerative joint disease. Right groin fungal dermatitis. Resolved. Intermittent episodes of apnea Recommendation: Continue ventilatory support. Continue pressure support mechanical ventilation, IMV of 6, patient had episodes of apnea this will be a backup rate. Continue nutritional support, patient is on Nepro at 45 mL/h Continue diuretics. Continue insulin GI and DVT prophylaxis. Patient will be given a fluid bolus this morning 500 mL of 0.9 normal saline for a relatively low blood pressure but that was felt to be secondary to Dilaudid and secondary to medications were given to him earlier today for blood pressure including Norvasc. [facility] Overall long-term prognosis remains guarded. We will continue to follow. Critical care time is over 30 minutes Time with Patient: Greater than 30
[2022-08-30 11:48] LABS: Glucose,Whole Blood 38 mg/dL (70-110)
[2022-08-30 11:50] LABS: Glucose,Whole Blood 177 mg/dL (70-110)
[2022-08-30 11:52] LABS: Glucose,Whole Blood 168 mg/dL (70-110)
[2022-08-30 12:03] VITALS: TEMP 98.7
--- NOTE | 2022-08-30 12:33 | P.DS ---
Providers Date of admission: 08/13/22 01:43 Expected date of discharge: 08/30/22 Attending physician: Diana Amado MD Consults: 08/13/22 01:43 Consult Physician Stat Consulting Provider: Ady Bradshaw Consult Reason/Comments: Respiratory failure Do you want consulting provider notified?: Already Contacted 08/13/22 13:45 Consult Physician Urgent Consulting Provider: Nick Fuller Consult Reason/Comments: low urine output, elevated Cr Do you want consulting provider notified?: Yes 08/17/22 09:29 Consult Physician Urgent Consulting Provider: Mercedez Pyle Consult Reason/Comments: AMS, post arrest Do you want consulting provider notified?: Yes 08/21/22 11:06 Consult Physician Routine Consulting Provider: Joshua Le Consult Reason/Comments: trach and peg Do you want consulting provider notified?: Yes Primary care physician: [facility] Course: Patient is a 63-year-old male with history of diabetes mellitus type 2, [id number] with neuropathy, asthma, and osteoarthritis who presented to the emergency department with chest pain and shortness of breath. In the ER he underwent an extensive evaluation. He required BiPAP secondary to tachypnea. An EKG was obtained in the emergency department which shows ST segment elevation inferior with reciprocal changes and poor R-wave progression. Patient needed to have worsening respiratory distress and required intubation in the ER. He was emergently taken to clinical laboratory scientist and had PCI performed to the RCA. He did not have return of flow to the PDA despite thrombectomy and cardiology recommended an additional 12 hours of Aggrastat and heparin for 24. He was found to have diffuse edema on his chest x-ray on vent settings are consistent with ARDS. Initial laboratory analysis also demonstrated hyperglycemia with a blood sugar of 636, patient was acetone positive and therefore diagnosed with DKA. Due to his vent settings and diffuse pulmonary edema he was started on an insulin drip but was not provided with fluid resuscitation as was requiring a PEEP of 14 and an FiO2 of 100% on the nuria. Patient underwent an echocardiogram which showed severe aortic stenosis and an ejection fraction of 40-45%. During his hospital stay the patient also had an acute versus subacute stroke with the possibility of embolic phenomenon neurology was consulted. LUCA was completed which was negative for thrombus or shunting. Patient underwent tracheostomy and PEG tube on 08/23/22. His sedation was weaned and patient was following simple commands but was found to have right-sided hemiplegia. Case management was consulted and patient was accepted to LTAC. Patient was seen and examined. No acute events overnight. Trach collar intact. Pertinent studies include chest x-ray, renal ultrasound, echocardiogram, brain CT, EEG, carotid Doppler, CTA head and neck Pertinent procedures include tracheostomy, PEG tube placement, cardiac catheterization General: nontoxic, no distress, appears at stated age Derm: warm, dry Head: atraumatic, normocephalic, symmetric Eyes: EOMI, no lid lag, anicteric sclera Mouth: no lip lesion, mucus membranes moist Cardiovascular: S1S2 reg, no murmur, positive posterior tibial pulse bilateral, Lungs: Decreased bs bilateral, no rhonchi, no rales , no accessory muscle use, + trach in place with some yellow thin drainage Abdominal: soft, nontender to palpation, no guarding, no appreciable organomegaly Ext: no gross muscle atrophy, no edema, no contractures Neuro: some movement of left hand off the bed, moving left lower extremity well, unable to move right arm and leg Psych: Alert, oriented, appropriate affect Discharge diagnoses: Acute respiratory failure status post trach placement 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 Patient Condition at Discharge: Stable Plan - Discharge Summary Discharge Rx Participant: No New Discharge Prescriptions: New INSULIN ASPART (NovoLOG) [NovoLOG (formulary)] 6 unit SQ Q6HR each INSULIN ASPART (NovoLOG) [NovoLOG (formulary)] 0 unit SQ Q6H each Chlorhexidine Gluconate [Peridex] 15 ml MUCOUS MEM BID ml Pantoprazole [Protonix] 40 mg PO DAILY #30 tab Metoprolol Succinate (ER) [Toprol XL] 50 mg PO DAILY tab Aspirin 81 mg PO DAILY tab Ticagrelor [Brilinta] 90 mg PO BID tab Losartan [Cozaar] 25 mg PO DAILY@1800 tab Insulin Detemir (Levemir) [Levemir] 30 unit SQ DAILY@0700 each Acetaminophen Oral Susp (Peds) [Tylenol Oral Susp For Peds (Grape)] 650 mg PO Q6HR PRN ml PRN Reason: Fever and/ or Mild Pain Continue amLODIPine [Norvasc] 10 mg PO DAILY Atorvastatin [Lipitor] 40 mg PO DAILY Discontinued traMADol HCL [Ultram] 50 mg PO QID PRN PRN Reason: Pain glipiZIDE [Glucotrol] 5 mg PO AC-BRKFST metFORMIN HCL [Glucophage] 500 mg PO BID Metoprolol Tartrate [Lopressor] 50 mg PO BID Fenofibrate [Lofibra] 54 mg PO BID DULoxetine HCL [Cymbalta] 60 mg PO DAILY traZODone HCL 100 mg PO HS Discharge Medication List amLODIPine [Norvasc] 10 mg PO DAILY 07/24/18 [History] Atorvastatin [Lipitor] 40 mg PO DAILY 08/13/22 [History] Acetaminophen Oral Susp (Peds) [Tylenol Oral Susp For Peds (Grape)] 650 mg PO Q6HR PRN ml 08/30/22 [Rx] Aspirin 81 mg PO DAILY tab 08/30/22 [Rx] Chlorhexidine Gluconate [Peridex] 15 ml MUCOUS MEM BID ml 08/30/22 [Rx] INSULIN ASPART (NovoLOG) [NovoLOG (formulary)] 0 unit SQ Q6H each 08/30/22 [Rx] INSULIN ASPART (NovoLOG) [NovoLOG (formulary)] 6 unit SQ Q6HR each 08/30/22 [Rx] Insulin Detemir (Levemir) [Levemir] 30 unit SQ DAILY@0700 each 08/30/22 [Rx] Losartan [Cozaar] 25 mg PO DAILY@1800 tab 08/30/22 [Rx] Metoprolol Succinate (ER) [Toprol XL] 50 mg PO DAILY tab 08/30/22 [Rx] Pantoprazole [Protonix] 40 mg PO DAILY #30 tab 08/30/22 [Rx] Ticagrelor [Brilinta] 90 mg PO BID tab 08/30/22 [Rx] Follow up Appointment(s)/Referral(s): Nnamdi Melara MD [STAFF PHYSICIAN] - 1 Week Peyton Tong MD [Medical Doctor] - 1 Week William Christine MD [Primary Care Provider] - 1-2 days Activity/Diet/Wound Care/Special Instructions: FU with PCP within 1-2 days of DC. FU with Cardiology within 1 week of DC. Take all medications as advised. Tube feeds: Nepro 45 ml/h, 785 ml TF free water, 30 ml free water flush Q4H. [facility]charge [facility]: [facility]
--- NOTE | 2022-08-30 13:28 | P.PN ---
Subjective Progress Note Date: 08/30/22 CHIEF COMPLAINT: Respiratory failure HISTORY OF PRESENT ILLNESS: Patient remains in the ICU on mechanical ventilation. He is status post tracheostomy and PEG tube placement. He is tolerating his tube feeds. Tube feeds are currently at 45 mL per hour. Patient scheduled for [facility] to [facility] today. He did receive his insurance authorization for [facility]. PHYSICAL EXAM: VITAL SIGNS: Reviewed. GENERAL: On mechanical ventilation HEENT: Tracheostomy site with clearish drainage. Intact. ABDOMEN: Soft. Nondistended. Nontender. PEG tube site clean dry and intact ASSESSMENT: 1. Acute hypoxic respiratory failure status post tracheostomy placement 2. Severe protein calorie malnutrition status post PEG tube placement 3. Acute CHF exacerbation 4. Acute ST elevated VT status post stent 5. Acute CVA PLAN: -Patient being discharged to [facility] today -Patient can be discharged surgical standpoint -Continue tube feeds -Continue supportive care Physician Lease Out Worker note has been reviewed by physician. Signing provider agrees with the documented findings, assessment, and plan of care. Objective - Vital Signs Vital signs: Vital Signs Temp 98.7 F 08/30/22 12:00 Pulse 80 08/30/22 13:00 Resp 18 08/30/22 13:00 BP 116/80 08/30/22 13:00 Pulse Ox 98 08/30/22 13:00 FiO2 30 08/30/22 12:00 Intake & Output 08/29/22 08/30/22 08/30/22 18:59 06:59 18:59 Intake Total 1006 770 870 Output Total 1030 925 245 Balance -24 -155 625 Weight 92.6 kg 91 kg Intake: IV 126 120 20 D5W @ 10ml/hr 120 120 20 art line pressure bag 6 Intake, IV Titration 500 Amount Sodium Chloride 0.9% 500 500 ml 500 ml @ 999 mls/hr IV .Q31M ONE Rx#:[id number] Tube Feeding 540 540 270 Other 340 110 80 Output: Urine 1030 925 245 Other: Voiding Method Indwelling Catheter Indwelling Catheter Indwelling Catheter ABP, PAP, CO, CI - Last Documented Arterial Blood Pressure 155/65 - Labs CBC & Chem 7: 08/30/22 06:37 08/30/22 06:37 Labs: Abnormal Lab Results - Last 24 Hours (Table) 08/29/22 08/29/22 08/30/22 Range/Units 17:34 23:46 04:08 RBC (4.30-5.90) m/uL Hgb (13.0-17.5) gm/dL Hct (39.0-53.0) % ABG pH (7.35-7.45) ABG HCO3 (21-25) mmol/L ABG Total CO2 (19-24) mmol/L ABG O2 Saturation (94-97) % Sodium (137-145) mmol/L Creatinine (0.66-1.25) mg/dL Glucose (74-99) mg/dL POC Glucose (mg/dL) 132 H 160 H 175 H (70-110) mg/dL 08/30/22 08/30/22 08/30/22 Range/Units 05:41 05:55 06:37 RBC 3.18 L (4.30-5.90) m/uL Hgb 9.5 L (13.0-17.5) gm/dL Hct 29.0 L (39.0-53.0) % ABG pH 7.48 H (7.35-7.45) ABG HCO3 26 H (21-25) mmol/L ABG Total CO2 27 H (19-24) mmol/L ABG O2 Saturation 98.7 H (94-97) % Sodium (137-145) mmol/L Creatinine (0.66-1.25) mg/dL Glucose (74-99) mg/dL POC Glucose (mg/dL) 223 H (70-110) mg/dL 08/30/22 08/30/22 08/30/22 Range/Units 06:37 11:46 11:48 RBC (4.30-5.90) m/uL Hgb (13.0-17.5) gm/dL Hct (39.0-53.0) % ABG pH (7.35-7.45) ABG HCO3 (21-25) mmol/L ABG Total CO2 (19-24) mmol/L ABG O2 Saturation (94-97) % Sodium 135 L (137-145) mmol/L Creatinine 0.61 L (0.66-1.25) mg/dL Glucose 236 H (74-99) mg/dL POC Glucose (mg/dL) 38 L 177 H (70-110) mg/dL 08/30/22 Range/Units 11:50 RBC (4.30-5.90) m/uL Hgb (13.0-17.5) gm/dL Hct (39.0-53.0) % ABG pH (7.35-7.45) ABG HCO3 (21-25) mmol/L ABG Total CO2 (19-24) mmol/L ABG O2 Saturation (94-97) % Sodium (137-145) mmol/L Creatinine (0.66-1.25) mg/dL Glucose (74-99) mg/dL POC Glucose (mg/dL) 168 H (70-110) mg/dL
--- NOTE | 2022-08-30 13:50 | P.PN ---
Subjective Progress Note Date: 08/30/22 08/30/2022: Patient clinically unchanged. Patient is laying comfortably in the bed. He has tracheostomy. Offers no complaints. 08/29/2022: Patient was seen for a follow-up. Patient is laying in the bed, has tracheostomy. Patient essentially unchanged. Offers no complaints. 08/28/2022: Patient was seen for a follow-up. Patient's significant other was present. Patient is laying in the bed. Patient has tracheostomy. Per nursing report, he has been on CPAP since Monday 10:30 AM, which is 2 days ago. Patient continues to be severely hemiplegic on the right side, with weakness on the left as well. 08/26/2022: Patient was seen for a follow-up. Patient clinically unchanged as compared to yesterday. Patient is still having greenish mucus from the track site. Patient continues to be groggy. Patient not on any sedation. Patient has tracheostomy on a mechanical ventilator. Also has PEG tube. 08/25/2022: Patient was initially seen by myself on 08/17/2022. Please refer to my note for details. Subsequently patient was seen by Dr. Ab Vega over the next week. Please refer to his notes for details as well. Came to see patient for a follow-up. Patient has bilateral hemispheric strokes. Patient's LUCA was negative. CTA of head and neck were negative. Patient now has track and PEG tube. Repeat EEG was negative for any seizure activity. There was mild to moderate encephalopathy. Patient currently on aspirin 81 mg daily and Brilinta 90 mg twice a day. Patient at present laying comfortably in the bed. Patient has tracheostomy tube. No distress. Please refer to examination below. SOME OF THE WORK-UP DURING THIS HOSPITAL VISIT CONSISTED OF: Lipid panels triglyceride 124, cholesterol 123, LDLs 81 and HDL is a 60 Hemoglobin A1c 9.2. White virus to start nondetected CT head is reported as acute/subacute CVA on the medial aspect of the right cerebellar hemisphere. Additional acute/subacute CVA including the left frontal/parietal lobe deep white matter and right temporal lobe Repeat CT head on 08/18/22: Overall similar examination from the yesterday with acute/subacute CVA in the medial aspect of the right cerebellar hemisphere, left frontal parietal lobe deep white matter and right temporal lobe. No hemorrhagic conversion. Different vascular territories suggest embolic phenomena. Most recent CT head on 08/21/2022: It is reported as similar evolving subacute infarct anterior pole right temporal and medial right cerebellar hemisphere. Either subacute or more chronic infarct left frontal parietal junction superiorly. Background moderate burden of chronic small vessel ischemic disease. No hemorrhagic transformation, midline shift or herniation. Similar mild hydrocephalus. There may be due to central atrophy. Correlate exclude a component of NPH. Possible acute right sided ethmoid sinusitis. 2-D echo from 08/13/2022 revealed mildly increase septal wall thickness. Left ventricular systolic function is decreased at 40-45%. Inferior hypokinesis. Moderate to severe aortic stenosis. EEG was performed, which was abnormal due to background slowing of severe degree. This is suggestive of generalized cerebral dysfunction as can be seen with toxic metabolic encephalopathy or due to diffuse structural brain abnormality. Clinical correlation is recommended. No epileptiform activity was seen. Carotid duplex is reported as there is plaque formation in image and measurements suggest 25% stenosis in both internal carotid arteries. Vertebral artery flow was not demonstrated on this exam. Transesophageal echocardiogram was reported as normal size with mild mildly impaired systolic function with the segmental wall motion abnormality. Ejection fraction of 40-45%. Severe aortic stenosis with mild aortic regurgitation. Mild to moderate mitral regurgitation. No shunting across the intra-atrial septum. Normal appearance of left atrial appendage. CTA head and neck is reported as no evidence of dissection of cervical internal carotid arteries or vertebral arteries. No evidence of intracranial high-grade stenosis or intracranial aneurysm. At least 50% stenosis at the left carotid bifurcation secondary to calcified plaque. No evidence of hemodynamic significant stenosis of the right carotid bifurcation. Right vertebral origin stenosis which is suboptimally evaluated given beam hardening artifact from the patient's shoulders. Multiple left-sided enlarged lymph nodes further evaluation and workup is recommended. Findings concerning for neoplastic process until proven otherwise. Right upper lobe atelectasis versus developing airspace disease. I would defer to internal medicine/pulmonary medicine for abnormal enlarged lymph nodes. Objective - Vital Signs Vital signs: Vital Signs Temp 98.7 F 08/30/22 12:00 Pulse 80 08/30/22 13:00 Resp 18 08/30/22 13:00 BP 116/80 08/30/22 13:00 Pulse Ox 98 08/30/22 13:00 FiO2 30 08/30/22 12:00 Intake & Output 08/29/22 08/30/22 08/30/22 18:59 06:59 18:59 Intake Total 1006 770 870 Output Total 1030 925 245 Balance -24 -155 625 Weight 92.6 kg 91 kg Intake: IV 126 120 20 D5W @ 10ml/hr 120 120 20 art line pressure bag 6 Intake, IV Titration 500 Amount Sodium Chloride 0.9% 500 500 ml 500 ml @ 999 mls/hr IV .Q31M ONE Rx#:[id number] Tube Feeding 540 540 270 Other 340 110 80 Output: Urine 1030 925 245 Other: Voiding Method Indwelling Catheter Indwelling Catheter Indwelling Catheter ABP, PAP, CO, CI - Last Documented Arterial Blood Pressure 155/65 - Exam GENERAL: The patient is lying in bed and does not appear in acute distress. LUNG:Trach on ventilator. Abdomen: +ve PEG tube. NEUROLOGICAL: Limited because of patient's condition. Higher mental function: Is drowsy. Today patient did open his eyes more widely to calling his name. He made eye contact, follows directions. Cranial nerves: He open his eyes to voice. Pupils are round, equal and reactive to light. He is tracking to right and left. Patient has no obvious facial droop at rest, however patient has prominent right facial weakness, central type on active testing. Motor: The strength is limited. 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 There is no movement in the right upper limb. Patient wiggles his left foot at the toes and somewhat at the ankle very actively but no movement on the right foot. Decrease tone over the right. Patient has bilateral Babinski. Cerebellum: Unable to assess. - Labs CBC & Chem 7: 08/30/22 06:37 08/30/22 06:37 Labs: Abnormal Lab Results - Last 24 Hours (Table) 08/29/22 08/29/22 08/30/22 Range/Units 17:34 23:46 04:08 RBC (4.30-5.90) m/uL Hgb (13.0-17.5) gm/dL Hct (39.0-53.0) % ABG pH (7.35-7.45) ABG HCO3 (21-25) mmol/L ABG Total CO2 (19-24) mmol/L ABG O2 Saturation (94-97) % Sodium (137-145) mmol/L Creatinine (0.66-1.25) mg/dL Glucose (74-99) mg/dL POC Glucose (mg/dL) 132 H 160 H 175 H (70-110) mg/dL 08/30/22 08/30/22 08/30/22 Range/Units 05:41 05:55 06:37 RBC 3.18 L (4.30-5.90) m/uL Hgb 9.5 L (13.0-17.5) gm/dL Hct 29.0 L (39.0-53.0) % ABG pH 7.48 H (7.35-7.45) ABG HCO3 26 H (21-25) mmol/L ABG Total CO2 27 H (19-24) mmol/L ABG O2 Saturation 98.7 H (94-97) % Sodium (137-145) mmol/L Creatinine (0.66-1.25) mg/dL Glucose (74-99) mg/dL POC Glucose (mg/dL) 223 H (70-110) mg/dL 08/30/22 08/30/22 08/30/22 Range/Units 06:37 11:46 11:48 RBC (4.30-5.90) m/uL Hgb (13.0-17.5) gm/dL Hct (39.0-53.0) % ABG pH (7.35-7.45) ABG HCO3 (21-25) mmol/L ABG Total CO2 (19-24) mmol/L ABG O2 Saturation (94-97) % Sodium 135 L (137-145) mmol/L Creatinine 0.61 L (0.66-1.25) mg/dL Glucose 236 H (74-99) mg/dL POC Glucose (mg/dL) 38 L 177 H (70-110) mg/dL 08/30/22 Range/Units 11:50 RBC (4.30-5.90) m/uL Hgb (13.0-17.5) gm/dL Hct (39.0-53.0) % ABG pH (7.35-7.45) ABG HCO3 (21-25) mmol/L ABG Total CO2 (19-24) mmol/L ABG O2 Saturation (94-97) % Sodium (137-145) mmol/L Creatinine (0.66-1.25) mg/dL Glucose (74-99) mg/dL POC Glucose (mg/dL) 168 H (70-110) mg/dL Assessment and Plan Assessment: * Acute to subacute ischemic stroke at different territories which is suggestive of embolic/cardioembolic (CT medial aspect of the right cerebellar hemisphere, left frontal/parietal lobe deep white matter and right temporal lobe). LUCA is negative for thrombus or shunting. 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 No seizure on EEG. Mentation is unchanged and is following commands. * Acute hypoxic respiratory failure on mechanical ventilation s/p Trach * Pneumonia due due to Haemophilus. * Acute systolic CHF, pulmonary edema, ischemic cardiomyopathy, acute STEMI * Multiple left-sided enlarged lymph nodes further evaluation and workup is recommended. Findings concerning for neoplastic process until proven otherwise On CTA. We will defer to IM/critical care. * Status Post PEG tube 08/23/22 * Status post cardiac stent placement RCA 08/13/2022 * Diabetic ketoacidosis, resolved * Acute renal failure, resolved * History of asthma * Anemia Plan: * Patient is clinically unchanged. Neurologically stable. * LUCA on 08/19/2022 revealed normal left radicular size with mild to moderately impaired systolic function with segmental wall motion abnormality. Severe aortic stenosis with mild aortic regurgitation. Mild to moderate MR. No shunting across the in the atrial septum. Normal appearance of the left atrial appendage. We will defer to cardiology for aortic stenosis * Initial EEG on 08/17/2022 was abnormal due to background slowing of severe degree. * Repeat EEG on 08/24/2022, also showed background slowing of mild to moderate degree. No epileptiform activity was seen. * CT head was performed, which revealed acute/subacute CVA on the medial aspect of the right cerebellar hemisphere. Additional acute/subacute CVA including the left frontal/parietal lobe deep white matter and right temporal lobe. I personally reviewed CT head, agreed with the findings. * CTA of head and neck revealed no evidence of dissection of the cervical internal carotid arteries or vertebral arteries. No evidence of intracranial high-grade stenosis or intracranial aneurysm. At least 50% stenosis at the left carotid bifurcation secondary to calcified plaque. Right vertebral artery origin stenosis which is suboptimally evaluated because of beam hardening artifact. * Carotid Doppler revealed plaque formation suggesting 25% stenosis in both ICAs. Vertebral artery flow was not demonstrated on either side. * Continue aspirin 81 mg daily and Brilinta 90 mg twice a day. * Hemoglobin A1c 9.2. Recommend optimize control of diabetes. * Consider event monitoring after discharge to rule out PAF. * Fasting lipid panel with cholesterol 123, LDL 81, HDL 16.9 and triglycerides 124. Continue Lipitor 40 mg daily. * Neurologically clear for transfer to LTAC. Patient will need outpatient follow-up with neurologist after discharge.
[2022-08-30 14:07] VITALS: BP 97/59; PULSE 78; RESP 20
== END 2022-08-30 14:05 | DRG 3 ==
LOC: EC 23:58 → 2SICU 08-13 01:43
PROVIDERS: ADMIT Internal Medicine; ATTEND Internal Medicine
PROC: 4A023N7 Measurement of Cardiac Sampling and Pressure, Left Heart, Percutaneous Approach (ICD-10-PCS; 2022-08-13)
PROC: B2111ZZ Fluoroscopy of Multiple Coronary Arteries using Low Osmolar Contrast (ICD-10-PCS; 2022-08-13)
PROC: 3E073PZ Introduction of Platelet Inhibitor into Coronary Artery, Percutaneous Approach (ICD-10-PCS; 2022-08-13)
PROC: B240ZZ3 Ultrasonography of Single Coronary Artery, Intravascular (ICD-10-PCS; 2022-08-13)
PROC: 0BH17EZ Insertion of Endotracheal Airway into Trachea, Via Natural or Artificial Opening (ICD-10-PCS; 2022-08-13)
PROC: 0D9670Z Drainage of Stomach with Drainage Device, Via Natural or Artificial Opening (ICD-10-PCS; 2022-08-13)
PROC: 3E033XZ Introduction of Vasopressor into Peripheral Vein, Percutaneous Approach (ICD-10-PCS; 2022-08-13)
PROC: 03HY32Z Insertion of Monitoring Device into Upper Artery, Percutaneous Approach (ICD-10-PCS; 2022-08-13)
PROC: 4A133B1 Monitoring of Arterial Pressure, Peripheral, Percutaneous Approach (ICD-10-PCS; 2022-08-13)
PROC: 4A133J1 Monitoring of Arterial Pulse, Peripheral, Percutaneous Approach (ICD-10-PCS; 2022-08-13)
PROC: 06HN33Z Insertion of Infusion Device into Left Femoral Vein, Percutaneous Approach (ICD-10-PCS; 2022-08-13)
PROC: 5A09357 Assistance with Respiratory Ventilation, Less than 24 Consecutive Hours, Continuous Positive Airway Pressure (ICD-10-PCS; 2022-08-13)
PROC: 027034Z Dilation of Coronary Artery, One Artery with Drug-eluting Intraluminal Device, Percutaneous Approach (ICD-10-PCS; 2022-08-13 00:27)
PROC: 02C03Z7 Extirpation of Matter from Coronary Artery, One Artery, Orbital Atherectomy Technique, Percutaneous Approach (ICD-10-PCS; 2022-08-13 00:27)
PROC: 3E0G76Z Introduction of Nutritional Substance into Upper GI, Via Natural or Artificial Opening (ICD-10-PCS; 2022-08-14)
PROC: B24BZZ4 Ultrasonography of Heart with Aorta, Transesophageal (ICD-10-PCS; 2022-08-19)
PROC: 02HV33Z Insertion of Infusion Device into Superior Vena Cava, Percutaneous Approach (ICD-10-PCS; 2022-08-22)
PROC: 5A1955Z Respiratory Ventilation, Greater than 96 Consecutive Hours (ICD-10-PCS; 2022-08-23)
PROC: 0DH63UZ Insertion of Feeding Device into Stomach, Percutaneous Approach (ICD-10-PCS; 2022-08-23)
PROC: 3E0G76Z Introduction of Nutritional Substance into Upper GI, Via Natural or Artificial Opening (ICD-10-PCS; 2022-08-23)
PROC: 0B110F4 Bypass Trachea to Cutaneous with Tracheostomy Device, Open Approach (ICD-10-PCS; principal; 2022-08-23 12:40)
DX: I21.19 ST elevation (STEMI) myocardial infarction involving other coronary artery of inferior wall (principal); N17.0 Acute kidney failure with tubular necrosis; R57.0 Cardiogenic shock; I63.441 Cerebral infarction due to embolism of right cerebellar artery; I63.442 Cerebral infarction due to embolism of left cerebellar artery; I50.23 Acute on chronic systolic (congestive) heart failure; G92.8 Other toxic encephalopathy; E11.10 Type 2 diabetes mellitus with ketoacidosis without coma; E43 Unspecified severe protein-calorie malnutrition; J14 Pneumonia due to Hemophilus influenzae; J80 Acute respiratory distress syndrome; G81.91 Hemiplegia, unspecified affecting right dominant side; G81.94 Hemiplegia, unspecified affecting left nondominant side; E87.0 Hyperosmolality and hypernatremia; E87.3 Alkalosis; G91.9 Hydrocephalus, unspecified; I13.0 Hypertensive heart and chronic kidney disease with heart failure and stage 1 through stage 4 chronic kidney disease, or unspecified chronic kidney disease; E87.1 Hypo-osmolality and hyponatremia; I27.20 Pulmonary hypertension, unspecified; E11.40 Type 2 diabetes mellitus with diabetic neuropathy, unspecified; E11.22 Type 2 diabetes mellitus with diabetic chronic kidney disease; Z51.5 Encounter for palliative care; Z66 Do not resuscitate; Z20.822 Contact with and (suspected) exposure to COVID-19; Z28.310 Unvaccinated for COVID-19; B36.9 Superficial mycosis, unspecified; D63.1 Anemia in chronic kidney disease; I65.01 Occlusion and stenosis of right vertebral artery; I25.10 Atherosclerotic heart disease of native coronary artery without angina pectoris; N18.9 Chronic kidney disease, unspecified; I25.5 Ischemic cardiomyopathy; E78.5 Hyperlipidemia, unspecified; E87.6 Hypokalemia; I44.0 Atrioventricular block, first degree; I65.22 Occlusion and stenosis of left carotid artery; R59.0 Localized enlarged lymph nodes; I08.3 Combined rheumatic disorders of mitral, aortic and tricuspid valves; Z68.28 Body mass index [BMI] 28.0-28.9, adult; J45.909 Unspecified asthma, uncomplicated; M19.90 Unspecified osteoarthritis, unspecified site; M54.9 Dorsalgia, unspecified; R58 Hemorrhage, not elsewhere classified; L30.9 Dermatitis, unspecified; H18.609 Keratoconus, unspecified, unspecified eye; Z79.84 Long term (current) use of oral hypoglycemic drugs; Z79.51 Long term (current) use of inhaled steroids; Z79.899 Other long term (current) drug therapy; Z87.891 Personal history of nicotine dependence; Z98.1 Arthrodesis status; Z71.3 Dietary counseling and surveillance; Z88.0 Allergy status to penicillin
CPT/HCPCS: 31500; 36415; 36573; 36600; 43246; 70450; 70496; 70498; 71045; 76770; 80048; 80051; 80053; 80061; 81001; 82009; 82565; 82805; 83036; 83735; 83880; 84100; 84132; 84145; 84484; 84520; 85025; 85027; 85610; 85730; 87070; 87205; 87635; 92973; 92978; 93005; 93306; 93312; 93320; 93325; 93458; 93880; 94002; 94003; 94640; 94660; 95816; 95822; 96374; 99291

== ENCOUNTER 2022-10-01 11:33 | Emergency (ER) | payer MEDICARE ==
[2022-10-01] MEDS ORDERED: HYDROmorphone 1 MG/ML 1 ML SYRINGE IVP STA ×2 (12:19→13:50)
--- NOTE | 2022-10-01 12:27 | ED ---
General Adult HPI - General Chief complaint: Fall Stated complaint: Falls Time Seen by Provider: 10/01/22 11:45 Source: EMS Mode of arrival: EMS Limitations: no limitations - History of Present Illness Initial comments: 67-year-old male with past history of STEMI, CVA with right-sided weakness, trach and PEG who presents to the emergency department from [facility]. Patient fell out of bed earlier today. He is on Plavix and therefore he was sent into the hospital for evaluation. He reports to me that he is having left hand pain and right sided facial pain. He denies losing consciousness. He is able to answer questions appropriately for me. Unknown the patient's baseline in regards to ambulatory status. He denies any chest pain or shortness of breath. No nausea or vomiting. Denies syncopal episode that took him to the floor. No other alleviating, precipitating or modifying factors - Related Data Home Medications Medication Instructions Recorded Confirmed Atorvastatin [Lipitor] 40 mg PO HS@199908/13/22 10/01/22 Acetaminophen [Tylenol Arthritis] 650 mg PO Q6H PRN 10/01/22 10/01/22 Clopidogrel [Plavix] 75 mg PO DAILY@0800 10/01/22 10/01/22 Docusate [Colace] 100 mg PO BID@0800,1600 10/01/22 10/01/22 Famotidine 20 mg PO BID@0800,1600 10/01/22 10/01/22 Glucagon [Gvoke Pfs 1-Pack Syringe] 1 mg SQ DAILY PRN 10/01/22 10/01/22 HYDROcodone/APAP 5-325MG [[place] 1 tab PO Q6H PRN 10/01/22 10/01/22 5-325] Heparin Sodium,Porcine [Heparin 5,000 unit SQ TID@0800,1200,1800 10/01/22 10/01/22 Sodium] Insulin Glargine,Hum.rec.anlog 15 units SQ BID@0800,1600 10/01/22 10/01/22 [Lantus Solostar Pen] Insulin Lispro [humaLOG Kwikpen] See Protocol SQ QID@05,11,17,23 10/01/22 10/01/22 Losartan [Cozaar] 25 mg PO HS 10/01/22 10/01/22 Magnesium Oxide [Magnesium] 500 mg PO DAILY 10/01/22 10/01/22 carvediloL [Coreg] 6.25 mg PO BID@0800,1600 10/01/22 10/01/22 guaiFENesin [guaiFENesin Oral 200 mg PO Q6H PRN 10/01/22 10/01/22 Solution] hydrALAZINE HCL [Apresoline] 50 mg PO TID@0800,1200,1800 PRN 10/01/22 10/01/22 polyethylene glycoL 3350 [Miralax] 17 gm PO DAILY@0800 10/01/22 10/01/22 Previous Rx's Medication Instructions Recorded Aspirin 81 mg PO DAILY tab 08/30/22 Allergies Allergy/AdvReac Type Severity Reaction Status Date / Time Penicillins Allergy Unknown Verified 10/01/22 12:40 Review of Systems ROS Statement: Those systems with pertinent positive or pertinent negative responses have been documented in the HPI. ROS Other: All systems not noted in ROS Statement are negative. Past Medical History Past Medical History: Asthma, CVA/TIA, Diabetes Mellitus, Myocardial Infarction ([place]), Osteoarthritis (OA) Additional Past Medical History / Comment(s): HX OF BACK SURGERY WITH BACK PAIN, DIABETIC NEUROPATHY, HEART MURMUR., KERATOCONUS., STOOL TEST POSITIVE ., ECZEMA. History of Any Multi-Drug Resistant Organisms: None Reported Past Surgical History: Back Surgery, Heart Catheterization With Stent Additional Past Surgical History / Comment(s): BACK SURGERY WITH DISC REMOVED AND FUSION., VASECTOMY, LEFT GREAT TOE. peg tube, tracheostomy. Past Anesthesia/Blood Transfusion Reactions: No Reported Reaction Past Psychological History: No Psychological Hx Reported Smoking Status: Never smoker Past Alcohol Use History: None Reported Past Drug Use History: None Reported - Past Family History Mother Family Medical History: No Reported History General Exam Limitations: physical limitation General appearance: alert, anxious Head exam: Present: normocephalic Eye exam: Present: normal appearance, PERRL, EOMI. Absent: scleral icterus, conjunctival injection, periorbital swelling ENT exam: Present: other (mild abrasion right side of the nose. no active bleeding) Neck exam: Present: other (healing trach stoma). Absent: tenderness, meningismus, lymphadenopathy Respiratory exam: Present: normal lung sounds bilaterally. Absent: respiratory distress, wheezes, rales, rhonchi, stridor Cardiovascular Exam: Present: regular rate, normal rhythm, normal heart sounds. Absent: systolic murmur, diastolic murmur, rubs, gallop, clicks GI/Abdominal exam: Present: soft, normal bowel sounds. Absent: distended, tenderness, guarding, rebound, rigid Neurological exam: Present: alert, oriented X3, CN II-XII intact Psychiatric exam: Present: anxious Course Vital Signs 10/01/22 10/01/22 11:36 15:56 Pulse Rate 98 94 Respiratory 18 20 Rate Blood Pressure 103/73 142/87 O2 Sat by Pulse 97 96 Oximetry EKG Findings - EKG Comments: EKG Findings:: EKG demonstrates sinus rhythm with a rate of 97. CT interval 198. QRS 102. QTC of 485. Mild ST elevation in 3 and aVF. Reciprocal depression 1 and aVL. Inverted T waves V4 through V6. Morphology appears similar to old. EKG interpreted by myself. Medical Decision Making - Medical Decision Making Upon arrival patient was placed into room 7. A thorough history and physical exam was performed. Patient is sent for chest, pelvis and left hand x-ray. He is also sent for a CT of his head and cervical spine. Imaging is reviewed by myself and negative for any acute fractures. Feel that the patient is stable for discharge back to his facility at this time. Patient discharged home in stable condition - Lab Data Result diagrams: 10/01/22 12:35 10/01/22 12:35 Lab Results 10/01/22 10/01/22 10/01/22 Range/Units 12:35 12:35 12:35 WBC 6.8 (3.8-10.6) k/uL RBC 4.27 L (4.30-5.90) m/uL Hgb 12.4 L (13.0-17.5) gm/dL Hct 39.5 (39.0-53.0) % MCV 92.6 (80.0-100.0) fL MCH 29.2 (25.0-35.0) pg MCHC 31.5 (31.0-37.0) g/dL RDW 16.3 H (11.5-15.5) % Plt Count 239 (150-450) k/uL MPV 7.6 Neutrophils % 72 % Lymphocytes % 13 % Monocytes % 8 % Eosinophils % 2 % Basophils % 1 % Neutrophils # 4.9 (1.3-7.7) k/uL Lymphocytes # 0.9 L (1.0-4.8) k/uL Monocytes # 0.5 (0-1.0) k/uL Eosinophils # 0.1 (0-0.7) k/uL Basophils # 0.1 (0-0.2) k/uL Hypochromasia Moderate Anisocytosis Slight PT 10.7 (9.0-12.0) sec INR 1.0 (<1.2) APTT 23.6 (22.0-30.0) sec Sodium 140 (137-145) mmol/L Potassium 4.4 (3.5-5.1) mmol/L Chloride 106 (98-107) mmol/L Carbon Dioxide 25 (22-30) mmol/L Anion Gap 9 mmol/L BUN 21 H (9-20) mg/dL Creatinine 0.86 (0.66-1.25) mg/dL Est GFR (CKD-EPI)AfAm >90 (>60 ml/min/1.73 sqM) Est GFR (CKD-EPI)NonAf 89 (>60 ml/min/1.73 sqM) Glucose 268 H (74-99) mg/dL Plasma Lactic Acid Eren (0.7-2.0) mmol/L Calcium 9.5 (8.4-10.2) mg/dL Magnesium 2.1 (1.6-2.3) mg/dL Total Bilirubin 0.7 (0.2-1.3) mg/dL AST 29 (17-59) U/L ALT 28 (4-49) U/L Alkaline Phosphatase 105 (38-126) U/L Troponin I (0.000-0.034) ng/mL NT-Pro-B Natriuret Pep pg/mL Total Protein 6.7 (6.3-8.2) g/dL Albumin 4.0 (3.5-5.0) g/dL 10/01/22 10/01/22 10/01/22 Range/Units 12:35 12:35 12:35 WBC (3.8-10.6) k/uL RBC (4.30-5.90) m/uL Hgb (13.0-17.5) gm/dL Hct (39.0-53.0) % MCV (80.0-100.0) fL MCH (25.0-35.0) pg MCHC (31.0-37.0) g/dL RDW (11.5-15.5) % Plt Count (150-450) k/uL MPV Neutrophils % % Lymphocytes % % Monocytes % % Eosinophils % % Basophils % % Neutrophils # (1.3-7.7) k/uL Lymphocytes # (1.0-4.8) k/uL Monocytes # (0-1.0) k/uL Eosinophils # (0-0.7) k/uL Basophils # (0-0.2) k/uL Hypochromasia Anisocytosis PT (9.0-12.0) sec INR (<1.2) APTT (22.0-30.0) sec Sodium (137-145) mmol/L Potassium (3.5-5.1) mmol/L Chloride (98-107) mmol/L Carbon Dioxide (22-30) mmol/L Anion Gap mmol/L BUN (9-20) mg/dL Creatinine (0.66-1.25) mg/dL Est GFR (CKD-EPI)AfAm (>60 ml/min/1.73 sqM) Est GFR (CKD-EPI)NonAf (>60 ml/min/1.73 sqM) Glucose (74-99) mg/dL Plasma Lactic Acid Eren 1.2 (0.7-2.0) mmol/L Calcium (8.4-10.2) mg/dL Magnesium (1.6-2.3) mg/dL Total Bilirubin (0.2-1.3) mg/dL AST (17-59) U/L ALT (4-49) U/L Alkaline Phosphatase (38-126) U/L Troponin I 0.032 (0.000-0.034) ng/mL NT-Pro-B Natriuret Pep 1480 pg/mL Total Protein (6.3-8.2) g/dL Albumin (3.5-5.0) g/dL Disposition Clinical Impression: Fall, Left hand pain Disposition: HOME SELF-CARE Condition: Stable Instructions (If sedation given, give patient instructions): Fall Prevention (ED) Additional Instructions: Please follow up with your primary care doctor in 2-4 days and return for any new or worsening symptoms Is patient prescribed a controlled substance at d/c from ED?: No Referrals: Willie Jansen DO [Primary Care Provider] - 1-2 days Time of Disposition: 14:46
[2022-10-01 13:03] LABS: Anisocytosis Slight; Basophils # (A) 0.1 k/uL (0-0.2); Basophils % (A) 1 %; Eosinophils # (A) 0.1 k/uL (0-0.7); Eosinophils % (A) 2 %; HCT 39.5 % (39.0-53.0); HGB 12.4 gm/dL (13.0-17.5); Hypochromasia Moderate; Lymphocytes # (A) 0.9 k/uL (1.0-4.8); Lymphocytes % (A) 13 %; MCH 29.2 pg (25.0-35.0); MCHC 31.5 g/dL (31.0-37.0); MCV 92.6 fL (80.0-100.0); Mean Platelet Volume 7.6; Monocytes # (A) 0.5 k/uL (0-1.0); Monocytes % (A) 8 %; Neutrophils # (A) 4.9 k/uL (1.3-7.7); Neutrophils % (A) 72 %; Platelet Count 239 k/uL (150-450); RBC 4.27 m/uL (4.30-5.90); RDW 16.3 % (11.5-15.5); WBC 6.8 k/uL (3.8-10.6)
[2022-10-01 13:05] LABS: ALT 28 U/L (4-49); AST 29 U/L (17-59); African American GFR (CKD) >90 (>60 ml/min/1.73 sqM); Alkaline Phosphatase 105 U/L (38-126); Anion Gap 9 mmol/L; Blood Urea Nitrogen 21 mg/dL (9-20); Calcium 9.5 mg/dL (8.4-10.2); Carbon Dioxide 25 mmol/L (22-30); Chloride 106 mmol/L (98-107); Glucose 268 mg/dL (74-99); Magnesium 2.1 mg/dL (1.6-2.3); Non-African American GFR(CKD) 89 (>60 ml/min/1.73 sqM); Potassium 4.4 mmol/L (3.5-5.1); Sodium 140 mmol/L (137-145); Total Bilirubin 0.7 mg/dL (0.2-1.3); Total Protein 6.7 g/dL (6.3-8.2)
[2022-10-01 13:08] LABS: Partial Thromboplastin Time 23.6 sec (22.0-30.0); Prothrombin Time 10.7 sec (9.0-12.0)
--- NOTE | 2022-10-01 13:17 | CT ---
EXAMINATION TYPE: CT brain cspine wo con CT DLP: 1707.2 mGycm, Automated exposure control for dose reduction was used. DATE OF EXAM: 10/01/2022 12:56 PM COMPARISON: 08/20/2022 CLINICAL INDICATION:Male, 67 years old with history of fall; Fall out of bed TECHNIQUE: Brain: Multiple axial CT images of the brain were obtained without IV contrast. Cspine: Axial CT images from the skull base to the inferior aspect of T2 we obtained without intraven ous contrast. Coronal and sagittal reformatted images were also reviewed. FINDINGS: Brain: Extra-axial spaces: No abnormal extra-axial fluid collections. Ventricular system: Dilatation in proportion to cerebral atrophy. Cerebral parenchyma: Cerebral atrophy. No acute intraparenchymal hemorrhage or mass effect. The koenig -white junction is well differentiated. Scattered hypoattenuating areas are seen within the white mat ter. Cerebellum: Unremarkable. Mass effect: No evidence of midline shift. Intracranial vasculature: Atherosclerotic calcifications of the intracranial vessels. Soft tissues: Normal. Calvarium/osseous structures: No depressed skull fracture. Paranasal sinuses and mastoid air cells: Opacified mastoid air cells bilaterally and right middle ear . Visualized orbits: Right aphakia Cervical spine: Fracture: None. Osseous structures: Multilevel degenerative disc disease changes with endplate spurring and disc oste ophyte complex's. Vertebral alignment: Within normal limits. Spinal canal/Neural Foramina: Disc osteophyte complexes at C3-C4 and C5-C6. With at least mild spinal canal stenosis. Facet joint uncovertebral joint arthropathy scattered throughout the cervical spine with varying degrees of neural foraminal stenosis. Neck soft tissues: Prevertebral soft tissues are within normal limits. Other: The airway is patent. The lung apices are clear. Calcification of the nuchal ligament. Atheros clerosis at the carotid bifurcations. IMPRESSION: 1. No acute intracranial process. 2. No evidence of cervical spine fracture. 3. Moderate multilevel degenerative disc disease. 4. Bilateral mastoid air cell effusion and right middle ear effusion. Correlate for otomastoiditis. 5. Nonspecific white matter changes likely secondary to chronic small vessel ischemic disease.
--- NOTE | 2022-10-01 13:23 | XR ---
EXAMINATION TYPE: XR pelvis AP view DATE OF EXAM: 10/01/2022 1:08 PM INDICATION: Patient age:Male; 67 years old; Reason for study: fall; COMPARISON: None TECHNIQUE: The pelvis was examined in a single projection. FINDINGS: There is no evidence of fracture or dislocation. There is no soft tissue abnormality. No a bnormal calcifications are present. Multilevel degenerative changes of the lower spine. IMPRESSION: No acute osseous pathology.
--- NOTE | 2022-10-01 13:24 | XR ---
EXAMINATION TYPE: XR chest 2V DATE OF EXAM: 10/01/2022 1:08 PM COMPARISON: Chest radiographs from 08/30/2022 TECHNIQUE: XR chest 2V Frontal and lateral views of the chest. CLINICAL INDICATION:Male, 67 years old with history of Weakness; FINDINGS: Lungs/Pleura: Similar streaky opacities in left lung base with blunting of costophrenic angle. There is no evidence of or pneumothorax. Pulmonary vascularity: Unremarkable. Heart/mediastinum: Cardiomediastinal silhouette is enlarged and stable. Musculoskeletal: No acute osseous pathology. IMPRESSION: Similar left basilar streaky atelectasis suspected left pleural effusion.
--- NOTE | 2022-10-01 14:48 | XR ---
EXAMINATION TYPE: XR hand complete LT DATE OF EXAM: 10/01/2022 COMPARISON: NONE HISTORY: Pain TECHNIQUE: 3 views FINDINGS: There is moderate narrowing and spurring at the first carpometacarpal joint. No fracture no r dislocation. There is some narrowing of the IP joint spaces. There are no erosions. IMPRESSION: Osteoarthritis. No fracture seen.
[2022-10-01 15:57] VITALS: BP 142/87; PULSE 94; RESP 20
== END 2022-10-01 15:57 | disposition home or self-care (01) ==
LOC: EC 11:33
DX: M79.642 Pain in left hand (principal); J45.909 Unspecified asthma, uncomplicated; E11.9 Type 2 diabetes mellitus without complications; I25.2 Old myocardial infarction; M19.90 Unspecified osteoarthritis, unspecified site; Z88.0 Allergy status to penicillin; Z79.4 Long term (current) use of insulin; Z79.899 Other long term (current) drug therapy; W06.XXXA Fall from bed, initial encounter
CPT/HCPCS: 36415; 93005; 83880; 80053; 83605; 83735; 84484; 85025; 85610; 85730; 72170; 73130; 71046; 72125; 70450; 99285; 96374; 96376; J1170

== ENCOUNTER 2022-12-09 12:54 | Emergency (ER) | payer MEDICARE ==
[2022-12-09] MEDS ORDERED: LIDOCAINE 2% URO-JET JELLY 5 ML KIT URETHRAL ONE (14:02)
--- NOTE | 2022-12-09 14:15 | ED ---
General Adult HPI - General Source: patient, RN notes reviewed, old records reviewed Mode of arrival: EMS Limitations: physical limitation <Amos Domingo - Last Filed: 12/09/22 15:00> <Zane Russo - Last Filed: 12/09/22 18:52> - General Chief complaint: Psychiatric Symptoms Stated complaint: Mental Health Time Seen by Provider: 12/09/22 13:00 - History of Present Illness Initial comments: This is a 67-year-old male who presents emergency Department because he states he is depressed. Patient states he had a stroke in August and her since he's been depressed but he is getting more more depressed so patient is opening his medication for his depression. Patient denies any suicidal ideations patient denies wanting to hurt himself. Patient denies any homicidal ideations. Patient states he lives with his girlfriend and she is the one that recommended he come in to get some help for his depression. Patient has not followed up as an outpatient for his depression with his primary medical care doctor. Patient denies any physical complaints today. (Amos Domingo) - Related Data Home Medications Medication Instructions Recorded Confirmed Atorvastatin [Lipitor] 40 mg PO HS 08/13/22 12/09/22 Clopidogrel [Plavix] 75 mg PO DAILY 10/01/22 12/09/22 Docusate [Colace] 100 mg PO DAILY 10/01/22 12/09/22 Famotidine 20 mg PO DAILY 10/01/22 12/09/22 Insulin Glargine,Hum.rec.anlog 20 units SQ BID 10/01/22 12/09/22 [Lantus Solostar Pen] Losartan [Cozaar] 25 mg PO DAILY 10/01/22 12/09/22 carvediloL [Coreg] 6.25 mg PO BID 10/01/22 12/09/22 guaiFENesin [guaiFENesin Oral 200 mg PO Q6H PRN 10/01/22 12/09/22 Solution] hydrALAZINE HCL [Apresoline] 50 mg PO TID 10/01/22 12/09/22 polyethylene glycoL 3350 [Miralax] 17 gm PO DAILY 10/01/22 12/09/22 Albuterol Nebulized [Ventolin 2.5 mg INHALATION RT-Q6H 12/09/22 12/09/22 Nebulized] Cholecalciferol [Vitamin D3 (25 25 mcg PO DAILY 12/09/22 12/09/22 Mcg = 1000 Iu)] Fluticasone Propion/Salmeterol 1 puff INHALATION RT-BID 12/09/22 12/09/22 [Wixela 250-50 Inhub] Insulin Aspart [NovoLOG Flexpen] See Protocol SQ ACHS 12/09/22 12/09/22 Mecobalamin [Vitamin B-12] 1,000 mcg PO DAILY 12/09/22 12/09/22 Multivitamins, Thera [Multivitamin 1 tab PO DAILY 12/09/22 12/09/22 (formulary)] Ida-3 Fatty Acids [Ida-3] 1,000 mg PO BID 12/09/22 12/09/22 diazePAM [Valium] 5 mg PO HS 12/09/22 12/09/22 glipiZIDE [Glucotrol] 5 mg PO DAILY 12/09/22 12/09/22 traZODone HCL [Desyrel] 100 mg PO HS 12/09/22 12/09/22 Previous Rx's Medication Instructions Recorded Aspirin 81 mg PO DAILY tab 08/30/22 Allergies Allergy/AdvReac Type Severity Reaction Status Date / Time Penicillins Allergy Unknown Verified 12/09/22 15:09 Review of Systems ROS Other: All systems not noted in ROS Statement are negative. <Amos Domingo - Last Filed: 12/09/22 15:00> ROS Other: All systems not noted in ROS Statement are negative. <Zane Russo - Last Filed: 12/09/22 18:52> ROS Statement: Those systems with pertinent positive or pertinent negative responses have been documented in the HPI. Past Medical History Past Medical History: Asthma, CVA/TIA, Diabetes Mellitus, Myocardial Infarction ([place]), Osteoarthritis (OA) Additional Past Medical History / Comment(s): HX OF BACK SURGERY WITH BACK PAIN, DIABETIC NEUROPATHY, HEART MURMUR., KERATOCONUS., STOOL TEST POSITIVE ., ECZEMA. History of Any Multi-Drug Resistant Organisms: None Reported Past Surgical History: Back Surgery, Heart Catheterization With Stent Additional Past Surgical History / Comment(s): BACK SURGERY WITH DISC REMOVED AND FUSION., VASECTOMY, LEFT GREAT TOE. peg tube, tracheostomy. Past Anesthesia/Blood Transfusion Reactions: No Reported Reaction Past Psychological History: No Psychological Hx Reported Smoking Status: Never smoker Past Alcohol Use History: None Reported Past Drug Use History: None Reported - Past Family History Mother Family Medical History: No Reported History <Amos Domingo - Last Filed: 12/09/22 15:00> General Exam Limitations: physical limitation <Amos Domingo - Last Filed: 12/09/22 15:00> - General Exam Comments Initial Comments: GENERAL: Patient is well-developed and well-nourished. Patient is nontoxic and well- hydrated and is in no acute distress. ENT: Neck is soft and supple. No significant lymphadenopathy is noted. Oropharynx is clear. Moist mucous membranes. Neck has full range of motion without eliciting any pain. EYES: The sclera were anicteric and conjunctiva were pink and moist. Extraocular movements were intact and pupils were equal round and reactive to light. Eyelids were unremarkable. PULMONARY: Unlabored respirations. Good breath sounds bilaterally. No audible rales rhonchi or wheezing was noted. CARDIOVASCULAR: There is a regular rate and rhythm without any murmurs gallops or rubs. ABDOMEN: Soft and nontender with normal bowel sounds. SKIN: Skin is clear with no lesions or rashes and otherwise unremarkable. NEUROLOGIC: Patient is alert and oriented x3. Cranial nerves II through XII are grossly intact. Patient has complete paralysis of his right arm and 2 out of 5 weakness to the right leg MUSCULOSKELETAL: Normal extremities with adequate strength and full range of motion. LYMPHATICS: No significant lymphadenopathy is noted PSYCHIATRIC: Patient states he is depressed but not suicidal and does not want harm himself or anyone else (Amos Domingo) Course Vital Signs 12/09/22 12:56 Temperature 97.7 F Pulse Rate 66 Respiratory 18 Rate Blood Pressure 129/77 O2 Sat by Pulse 95 Oximetry Medical Decision Making <Amos Domingo - Last Filed: 12/09/22 15:00> - Lab Data Result diagrams: 12/09/22 14:56 12/09/22 14:56 <Zane Russo - Last Filed: 12/09/22 18:52> - Medical Decision Making Was pt. sent in by a medical professional or institution (, PA, WEDDING CONSULTANT, urgent care, hospital, or assisted...) When possible be specific @ -No Did you speak to anyone other than the patient for history (EMS, parent, family, police, friend...)? What history was obtained from this source @ -No Did you review nursing and triage notes (agree or disagree)? Why? @ -I reviewed and agree with nursing and triage notes Were old charts reviewed (outside hosp., previous admission, EMS record, old EKG, old radiological studies, urgent care reports/EKG's, assisted records)? Report findings @ -No old charts were reviewed Differential Diagnosis (chest pain, altered mental status, abdominal pain women, abdominal pain men, vaginal bleeding, weakness, fever, dyspnea, syncope, headache, dizziness, GI bleed, back pain, seizure, CVA, palpatations, mental health, musculoskeletal)? @ -[facility] EKG interpreted by me (3pts min.). @ -As above X-rays interpreted by me (1pt min.). @ -None done CT interpreted by me (1pt min.). @ -None done U/S interpreted by me (1pt. min.). @ -None done What testing was considered but not performed or refused? (CT, X-rays, U/S, labs)? Why? @ -None What meds were considered but not given or refused? Why? @ -None Did you discuss the management of the patient with other professionals (professionals i.e. , PA, WEDDING CONSULTANT, lab, RT, psych nurse, social services, environmental lawyer, teacher, child support case officer, director of casework)? Give summary @ -No Was smoking cessation discussed for >3mins.? @ -No Was critical care preformed (if so, how long)? @ -No Were there social determinants of health that impacted care today? How? (Homelessness, low income, unemployed, alcoholism, drug addiction, transportation, low edu. Level, literacy, decrease access to med. care, residential, rehab)? @ -No Was there de-escalation of care discussed even if they declined (Discuss DNR or withdrawal of care, Hospice)? DNR status @ -No What co-morbidities impacted this encounter? (DM, HTN, Smoking, COPD, CAD, Cancer, CVA, ARF, Chemo, Hep., AIDS, mental health diagnosis, sleep apnea, morbid obesity)? @ -None Was patient admitted / discharged? Hospital course, mention meds given and route, prescriptions, significant lab abnormalities, going to OR and other pertinent info. @ -EPS is coming down to evaluate the patient however the girlfriend stated that she is unable to continue taking care of the patient and she has since left the hospital. Dr. Russo will be taking over the care of this patient. (Amos Domingo) Patient is sent out to me by previous shift physician, Dr. Domingo. Patient is 59-year-old male with past medical history of stroke. He is debilitated bedbound. He is depressed because he can't do his job anymore. He lives at home with his girlfriend who has history of psych issues. Apparently she does not want care for him anymore. Patient was evaluated by EPS. Patient not suicidal homicidal he is cleared for discharge. Patient evaluated at the bedside finally stable medical condition. Patient be discharged to home. Contact was made with patient's was very upset. Case was also discussed with patient and girlfriend. Girlfriend was willing to continue caring for the patient at home. States that she'll be home at approximately 10:00. Discharge will be timed for around the time when patient's girlfriend will be home. (Zane Russo) - Lab Data Lab Results 12/09/22 12/09/22 12/09/22 Range/Units 14:16 14:56 14:56 WBC 6.2 (3.8-10.6) k/uL RBC 4.78 (4.30-5.90) m/uL Hgb 13.9 (13.0-17.5) gm/dL Hct 40.9 (39.0-53.0) % MCV 85.5 (80.0-100.0) fL MCH 29.2 (25.0-35.0) pg MCHC 34.1 (31.0-37.0) g/dL RDW 15.5 (11.5-15.5) % Plt Count 158 (150-450) k/uL MPV 6.8 Neutrophils % 66 % Lymphocytes % 20 % Monocytes % 7 % Eosinophils % 4 % Basophils % 1 % Neutrophils # 4.1 (1.3-7.7) k/uL Lymphocytes # 1.2 (1.0-4.8) k/uL Monocytes # 0.5 (0-1.0) k/uL Eosinophils # 0.2 (0-0.7) k/uL Basophils # 0.0 (0-0.2) k/uL Sodium 142 (137-145) mmol/L Potassium 3.5 (3.5-5.1) mmol/L Chloride 105 (98-107) mmol/L Carbon Dioxide 29 (22-30) mmol/L Anion Gap 8 mmol/L BUN 12 (9-20) mg/dL Creatinine 0.62 L (0.66-1.25) mg/dL Est GFR (CKD-EPI)AfAm >90 (>60 ml/min/1.73 sqM) Est GFR (CKD-EPI)NonAf >90 (>60 ml/min/1.73 sqM) Glucose 121 H (74-99) mg/dL Calcium 9.5 (8.4-10.2) mg/dL Total Bilirubin 0.5 (0.2-1.3) mg/dL AST 22 (17-59) U/L ALT 17 (4-49) U/L Alkaline Phosphatase 62 (38-126) U/L Total Protein 6.4 (6.3-8.2) g/dL Albumin 4.0 (3.5-5.0) g/dL Urine Opiates Screen Not Detected (NotDetected) Ur Oxycodone Screen Not Detected (NotDetected) Urine Methadone Screen Not Detected (NotDetected) Ur Propoxyphene Screen Not Detected (NotDetected) Ur Barbiturates Screen Not Detected (NotDetected) U Tricyclic Antidepress Not Detected (NotDetected) Ur Phencyclidine Scrn Not Detected (NotDetected) Ur Amphetamines Screen Not Detected (NotDetected) U Methamphetamines Scrn Not Detected (NotDetected) U Benzodiazepines Scrn Detected H (NotDetected) Urine Cocaine Screen Not Detected (NotDetected) U Marijuana (THC) Screen Not Detected (NotDetected) Disposition <Amos Domingo - Last Filed: 12/09/22 15:00> Is patient prescribed a controlled substance at d/c from ED?: No Time of Disposition: 18:52 <Zane Russo - Last Filed: 12/09/22 18:52> Clinical Impression: Depression Disposition: HOME SELF-CARE Condition: Good Instructions (If sedation given, give patient instructions): Depression (ED) Referrals: None,Stated [REFERRING] - 1-2 days
[2022-12-09 15:01] LABS: Amphetamine Screen,Urine Not Detected (NotDetected); Barbiturate Screen,Urine Not Detected (NotDetected); Benzodiazepines Screen,Urine Detected (NotDetected); Cocaine Screen,Urine Not Detected (NotDetected); Methadone Screen, Urine Not Detected (NotDetected); Opiate Screen,Urine Not Detected (NotDetected); Oxycodone Screen, Urine Not Detected (NotDetected); Phencyclidine Screen,Urine Not Detected (NotDetected); Tricyclic Antidepressant,Urine Not Detected (NotDetected); Urn Cannabinoid Scrn Not Detected (NotDetected)
[2022-12-09 15:20] LABS: Basophils % (A) 1 %; Eosinophils # (A) 0.2 k/uL (0-0.7); Eosinophils % (A) 4 %; HCT 40.9 % (39.0-53.0); HGB 13.9 gm/dL (13.0-17.5); Lymphocytes # (A) 1.2 k/uL (1.0-4.8); Lymphocytes % (A) 20 %; MCH 29.2 pg (25.0-35.0); MCHC 34.1 g/dL (31.0-37.0); MCV 85.5 fL (80.0-100.0); Mean Platelet Volume 6.8; Monocytes # (A) 0.5 k/uL (0-1.0); Monocytes % (A) 7 %; Neutrophils # (A) 4.1 k/uL (1.3-7.7); Neutrophils % (A) 66 %; Platelet Count 158 k/uL (150-450); RBC 4.78 m/uL (4.30-5.90); RDW 15.5 % (11.5-15.5); WBC 6.2 k/uL (3.8-10.6)
[2022-12-09 15:22] LABS: ALT 17 U/L (4-49); AST 22 U/L (17-59); African American GFR (CKD) >90 (>60 ml/min/1.73 sqM); Alkaline Phosphatase 62 U/L (38-126); Anion Gap 8 mmol/L; Blood Urea Nitrogen 12 mg/dL (9-20); Calcium 9.5 mg/dL (8.4-10.2); Carbon Dioxide 29 mmol/L (22-30); Chloride 105 mmol/L (98-107); Glucose 121 mg/dL (74-99); Non-African American GFR(CKD) >90 (>60 ml/min/1.73 sqM); Potassium 3.5 mmol/L (3.5-5.1); Sodium 142 mmol/L (137-145); Total Bilirubin 0.5 mg/dL (0.2-1.3); Total Protein 6.4 g/dL (6.3-8.2)
[2022-12-09 21:17] VITALS: BP 155/65; PULSE 84; RESP 17; TEMP 98.4
== END 2022-12-09 23:03 | disposition home or self-care (01) ==
LOC: EC 12:54
DX: F32.A Depression, unspecified (principal); E11.40 Type 2 diabetes mellitus with diabetic neuropathy, unspecified; I25.2 Old myocardial infarction; J45.909 Unspecified asthma, uncomplicated; M19.90 Unspecified osteoarthritis, unspecified site; Z79.4 Long term (current) use of insulin; Z79.84 Long term (current) use of oral hypoglycemic drugs; Z79.02 Long term (current) use of antithrombotics/antiplatelets; Z79.899 Other long term (current) drug therapy; Z86.73 Personal history of transient ischemic attack (TIA), and cerebral infarction without residual deficits; Z88.0 Allergy status to penicillin
CPT/HCPCS: 36415; 80053; 80306; 82075; 85025; 99285

== ENCOUNTER 2022-12-18 18:27 | Inpatient (IN) | payer MEDICARE ==
--- NOTE | 2022-12-18 19:52 | XR ---
EXAMINATION TYPE: XR KUB DATE OF EXAM: 12/18/2022 COMPARISON: NONE HISTORY: Diarrhea. Pain. TECHNIQUE: 3 views supine FINDINGS: There is no sign of intestinal obstruction or pneumoperitoneum. Fecal pattern is fairly nor mal. No sign of a bowel obstruction. Lung bases are clear. No pathologic calcification over the kidne ys IMPRESSION: Nonacute abdomen.
[2022-12-18] MEDS ORDERED: NALOXONE 0.4 MG/ML 1 ML VIAL IV PRN (22:57)
--- NOTE | 2022-12-18 22:57 | ED ---
General Adult HPI - General Chief complaint: Shortness of Breath Stated complaint: diarrhea, sob Time Seen by Provider: 12/18/22 19:05 Source: patient, EMS Mode of arrival: EMS Limitations: no limitations - History of Present Illness Initial comments: 67-year-old male with past history of CVA, diabetes, HI who presents emergency Department with diarrhea. 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 He does have some mild associated abdominal cramping. Denies any sick contacts. No fevers. No recent antibiotic use. Transfer Table Operator Helper was concerned for C. diff and therefore called an ambulance. The patient has been reporting some shortness of breath and was given 2 puffs of his albuterol inhaler. Reports that upon arrival to the emergency department that his shortness of breath is completely gone. He denies chest pain. No other alleviating, preciptating or modifying factors. - Related Data Home Medications Medication Instructions Recorded Confirmed Atorvastatin [Lipitor] 40 mg PO HS 08/13/22 12/18/22 Clopidogrel [Plavix] 75 mg PO DAILY 10/01/22 12/18/22 Docusate [Colace] 100 mg PO DAILY 10/01/22 12/18/22 Famotidine 20 mg PO DAILY 10/01/22 12/18/22 Insulin Glargine,Hum.rec.anlog 20 units SQ BID 10/01/22 12/18/22 [Lantus Solostar Pen] Losartan [Cozaar] 25 mg PO DAILY 10/01/22 12/18/22 carvediloL [Coreg] 6.25 mg PO BID 10/01/22 12/18/22 guaiFENesin [guaiFENesin Oral 200 mg PO Q6H PRN 10/01/22 12/18/22 Solution] hydrALAZINE HCL [Apresoline] 50 mg PO TID 10/01/22 12/18/22 polyethylene glycoL 3350 [Miralax] 17 gm PO DAILY 10/01/22 12/18/22 Albuterol Nebulized [Ventolin 2.5 mg INHALATION RT-Q6H 12/09/22 12/18/22 Nebulized] Cholecalciferol [Vitamin D3 (25 25 mcg PO DAILY 12/09/22 12/18/22 Mcg = 1000 Iu)] Fluticasone Propion/Salmeterol 1 puff INHALATION RT-BID 12/09/22 12/18/22 [[place] 250-50 Inhub] Insulin Aspart [NovoLOG Flexpen] See Protocol SQ ACHS 12/09/22 12/18/22 Mecobalamin [Vitamin B-12] 1,000 mcg PO DAILY 12/09/22 12/18/22 Multivitamins, Thera [Multivitamin 1 tab PO DAILY 12/09/22 12/18/22 (formulary)] [place]-3 Fatty Acids [[place]-3] 1,000 mg PO BID 12/09/22 12/18/22 diazePAM [Valium] 5 mg PO HS 12/09/22 12/18/22 glipiZIDE [Glucotrol] 5 mg PO DAILY 12/09/22 12/18/22 traZODone HCL [Desyrel] 100 mg PO HS 12/09/22 12/18/22 Fenofibrate 54 mg PO DAILY 12/18/22 12/18/22 Previous Rx's Medication Instructions Recorded Aspirin 81 mg PO DAILY tab 08/30/22 Cholestyramine (with Sugar) 4 gm PO TID BETWEEN MEALS PRN #30 12/26/22 [Questran Packet] packet Vancomycin Oral Solution 250 mg PO QID 10 Days #200 ml 12/26/22 Allergies Allergy/AdvReac Type Severity Reaction Status Date / Time Penicillins Allergy Unknown Verified 12/18/22 21:08 Review of Systems ROS Statement: Those systems with pertinent positive or pertinent negative responses have been documented in the HPI. ROS Other: All systems not noted in ROS Statement are negative. Past Medical History Past Medical History: Asthma, CVA/TIA, Diabetes Mellitus, Myocardial Infarction (HI), Osteoarthritis (OA) Additional Past Medical History / Comment(s): HX OF BACK SURGERY WITH BACK PAIN, DIABETIC NEUROPATHY, HEART MURMUR., KERATOCONUS., STOOL TEST POSITIVE ., ECZEMA. History of Any Multi-Drug Resistant Organisms: None Reported Past Surgical History: Back Surgery, Heart Catheterization With Stent Additional Past Surgical History / Comment(s): BACK SURGERY WITH DISC REMOVED AND FUSION., VASECTOMY, LEFT GREAT TOE. peg tube, tracheostomy. Past Anesthesia/Blood Transfusion Reactions: No Reported Reaction Past Psychological History: No Psychological Hx Reported Smoking Status: Never smoker Past Alcohol Use History: None Reported Past Drug Use History: None Reported - Past Family History Mother Family Medical History: No Reported History General Exam Limitations: physical limitation General appearance: alert, in no apparent distress Head exam: Present: atraumatic, normocephalic, normal inspection Eye exam: Present: normal appearance, PERRL, EOMI. Absent: scleral icterus, conjunctival injection, periorbital swelling ENT exam: Present: mucous membranes dry Cardiovascular Exam: Present: regular rate, normal rhythm, normal heart sounds. Absent: systolic murmur, diastolic murmur, rubs, gallop, clicks GI/Abdominal exam: Present: soft, normal bowel sounds. Absent: distended, tenderness, guarding, rebound, rigid Extremities exam: Present: other (right hemiparesis due to old cva) Neurological exam: Present: alert, oriented X3, CN II-XII intact Psychiatric exam: Present: normal affect, normal mood Skin exam: Present: warm, dry, intact, normal color. Absent: rash Course Vital Signs 12/18/22 12/19/22 12/19/22 19:02 01:02 01:41 Temperature Pulse Rate 90 99 102 H Respiratory 18 16 Rate Blood Pressure 169/90 134/94 O2 Sat by Pulse 95 95 Oximetry 12/19/22 12/19/22 12/19/22 01:47 03:00 04:00 Temperature Pulse Rate 100 98 93 Respiratory 16 17 Rate Blood Pressure 118/77 O2 Sat by Pulse 95 Oximetry 12/19/22 12/19/22 12/19/22 05:00 05:35 08:20 Temperature 98.7 F 98.4 F Pulse Rate 102 H 93 102 H Respiratory 16 18 18 Rate Blood Pressure 135/67 131/79 O2 Sat by Pulse 97 98 Oximetry 12/19/22 08:57 Temperature Pulse Rate 90 Respiratory 18 Rate Blood Pressure O2 Sat by Pulse Oximetry - Reevaluation(s) Reevaluation #1: 12/18/22 22:53 Made aware of C.diff diagnosis. Transfer Table Operator Helper states patient can not come home - he is infection and she can not care for the patient. wants patient admitted for "3 days for rebab" Medical Decision Making - Medical Decision Making Was pt. sent in by a medical professional or institution (, PA, MEDICAL ACCOUNTS RECEIVABLE SPECIALIST, urgent care, hospital, or long term...) When possible be specific @ -No Did you speak to anyone other than the patient for history (EMS, parent, family, police, friend...)? What history was obtained from this source @ -power barker operator Did you review nursing and triage notes (agree or disagree)? Why? @ -I reviewed and agree with nursing and triage notes Were old charts reviewed (outside hosp., previous admission, EMS record, old EKG, old radiological studies, urgent care reports/EKG's, long term records)? Report findings @ -Previous admission records reviewed Differential Diagnosis (chest pain, altered mental status, abdominal pain women, abdominal pain men, vaginal bleeding, weakness, fever, dyspnea, syncope, headache, dizziness, GI bleed, back pain, seizure, CVA, palpatations, mental health, musculoskeletal)? @ -diarrhea, gi bleed, c.diff, colitis, diverticulitis EKG interpreted by me (3pts min.). @ -no X-rays interpreted by me (1pt min.). @ -yes CT interpreted by me (1pt min.). @ -None done U/S interpreted by me (1pt. min.). @ -None done What testing was considered but not performed or refused? (CT, X-rays, U/S, labs)? Why? @ -None What meds were considered but not given or refused? Why? @ -None Did you discuss the management of the patient with other professionals (professionals i.e. , PA, MEDICAL ACCOUNTS RECEIVABLE SPECIALIST, lab, RT, psych nurse, professor of social work, rural carrier associate, teacher, postal sorting officer, major case detective)? Give summary @ -Admitting physician Was smoking cessation discussed for >3mins.? @ -No Was critical care preformed (if so, how long)? @ -No Were there social determinants of health that impacted care today? How? (Homelessness, low income, unemployed, alcoholism, drug addiction, transportation, low edu. Level, literacy, decrease access to med. care, fdc, rehab)? @ -CVA leading to right sided hemiparesis Was there de-escalation of care discussed even if they declined (Discuss DNR or withdrawal of care, Hospice)? DNR status @ -No What co-morbidities impacted this encounter? (DM, HTN, Smoking, COPD, CAD, Cancer, CVA, ARF, Chemo, Hep., AIDS, mental health diagnosis, sleep apnea, morbid obesity)? @ -CVA, hemiparesis Was patient admitted / discharged? Hospital course, mention meds given and route, prescriptions, significant lab abnormalities, going to OR and other pertinent info. @ -Upon arrival the patient was placed into room 22. History and physical exam was performed. Stool sample is obtained and sent which is positive for C. diff. I discussed that I would like to treat the patient with vancomycin. Transfer Table Operator Helper states that the patient cannot come home. He is infectious and she is refusing to take care of him at this point. is requesting three-day stay so that way he can go to rehab. Patient is agreeable to staying one night in the hospital. I spoke with Dr. South who agreed to admit the patient. Antibiotics are ordered. Undiagnosed new problem with uncertain prognosis? @ -yes Drug Therapy requiring intensive monitoring for toxicity (Heparin, Nitro, Insulin, Cardizem)? @ -No Were any procedures done? @ -No Diagnosis/symptom? @ -acute c.diff diarrhea Acute, or Chronic, or Acute on Chronic? @ -acute Uncomplicated (without systemic symptoms) or Complicated (systemic symptoms)? @ -complicated Side effects of treatment? @ -No Exacerbation, Progression, or Severe Exacerbation? @ -no Poses a threat to life or bodily function? How? (Chest pain, [place], HI, pneumonia, PE, COPD, DKA, ARF, appy, cholecystitis, CVA, Diverticulitis, Homicidal, Suicidal, threat to staff... and all critical care pts) @ -no - Lab Data Result diagrams: 12/24/22 07:29 12/24/22 07:29 Lab Results 12/18/22 Range/Units 20:15 C. difficile (EIA) Intrp Positive A (Negative) Disposition Clinical Impression: Diarrhea, C. difficile diarrhea Disposition: ADMITTED IP TO THIS [facility] Condition: Stable Is patient prescribed a controlled substance at d/c from ED?: No Time of Disposition: 22:52 Decision to Admit Reason: Admit from EC Decision Date: 12/18/22 Decision Time: 22:53
[2022-12-18 23:52] LABS: ALT 17 U/L (4-49); African American GFR (CKD) >90 (>60 ml/min/1.73 sqM); Albumin 4.1 g/dL (3.5-5.0); Anion Gap 10 mmol/L; Blood Urea Nitrogen 15 mg/dL (9-20); Calcium 10.4 mg/dL (8.4-10.2); Carbon Dioxide 26 mmol/L (22-30); Chloride 105 mmol/L (98-107); Glucose 118 mg/dL (74-99); Non-African American GFR(CKD) >90 (>60 ml/min/1.73 sqM); Sodium 141 mmol/L (137-145); Total Bilirubin 0.8 mg/dL (0.2-1.3); Total Protein 6.7 g/dL (6.3-8.2)
[2022-12-18 23:59] LABS: AST 28 U/L (17-59); Alkaline Phosphatase 65 U/L (38-126)
[2022-12-19 00:01] LABS: Basophils # (A) 0.1 k/uL (0-0.2); Basophils % (A) 1 %; Eosinophils # (A) 0.3 k/uL (0-0.7); Eosinophils % (A) 3 %; HCT 43.1 % (39.0-53.0); HGB 14.9 gm/dL (13.0-17.5); Lymphocytes # (A) 1.8 k/uL (1.0-4.8); Lymphocytes % (A) 17 %; MCH 29.7 pg (25.0-35.0); MCHC 34.6 g/dL (31.0-37.0); MCV 85.8 fL (80.0-100.0); Mean Platelet Volume 7.1; Monocytes # (A) 0.7 k/uL (0-1.0); Monocytes % (A) 7 %; Neutrophils # (A) 7.1 k/uL (1.3-7.7); Neutrophils % (A) 70 %; Platelet Count 233 k/uL (150-450); RBC 5.02 m/uL (4.30-5.90); RDW 15.5 % (11.5-15.5); WBC 10.2 k/uL (3.8-10.6)
[2022-12-19] MEDS ORDERED: VANCOMYCIN 125 MG CAPSULE PO STA (00:36)
[2022-12-19] MEDS: diazePAM 5 MG TAB PO SCH ×2 (00:57→21:26)
[2022-12-19] MEDS: ATORVASTATIN 40 MG TAB PO SCH ×2 (00:57→21:26)
[2022-12-19] MEDS: traZODone HCL 100 MG TAB PO SCH ×2 (00:57→21:26)
[2022-12-19] MEDS: ALBUTEROL NEBULIZED 2.5 MG/3 ML INHALATION SCH ×4 (01:39→20:22)
[2022-12-19 06:25] LABS: Basophils # (A) 0.1 k/uL (0-0.2); Basophils % (A) 1 %; Eosinophils # (A) 0.3 k/uL (0-0.7); Eosinophils % (A) 3 %; HCT 41.1 % (39.0-53.0); HGB 13.5 gm/dL (13.0-17.5); Lymphocytes # (A) 1.4 k/uL (1.0-4.8); Lymphocytes % (A) 16 %; MCHC 32.9 g/dL (31.0-37.0); MCV 88.1 fL (80.0-100.0); Mean Platelet Volume 6.9; Monocytes # (A) 0.7 k/uL (0-1.0); Monocytes % (A) 8 %; Neutrophils # (A) 6.2 k/uL (1.3-7.7); Neutrophils % (A) 70 %; Platelet Count 242 k/uL (150-450); RBC 4.66 m/uL (4.30-5.90); RDW 15.4 % (11.5-15.5); WBC 8.9 k/uL (3.8-10.6)
[2022-12-19] MEDS ORDERED: carvediloL 6.25 MG TAB PO SCH (07:30)
[2022-12-19 07:49] LABS: African American GFR (CKD) >90 (>60 ml/min/1.73 sqM); Anion Gap 11 mmol/L; Blood Urea Nitrogen 17 mg/dL (9-20); Calcium 10.5 mg/dL (8.4-10.2); Carbon Dioxide 23 mmol/L (22-30); Chloride 107 mmol/L (98-107); Glucose 130 mg/dL (74-99); Non-African American GFR(CKD) >90 (>60 ml/min/1.73 sqM); Sodium 141 mmol/L (137-145)
[2022-12-19 08:02] LABS: Potassium 3.7 mmol/L (3.5-5.1)
[2022-12-19] MEDS: ASPIRIN 81 MG PO SCH (08:07)
[2022-12-19] MEDS: CLOPIDOGREL 75 MG TAB PO SCH (08:07)
[2022-12-19] MEDS: glipiZIDE 5 MG TAB PO SCH (08:08)
[2022-12-19] MEDS: FENOFIBRATE 54 MG TAB PO SCH (08:08)
[2022-12-19] MEDS: SYMBICORT 80-4.5 MCG INHALER INHALATION SCH ×2 (08:57→20:27)
[2022-12-19] MEDS ORDERED: FAMOTIDINE 20 MG TAB PO SCH (09:00)
[2022-12-19] MEDS ORDERED: hydrALAZINE HCL 50 MG TAB PO SCH (09:00)
[2022-12-19] MEDS ORDERED: LOSARTAN 25 MG TAB PO SCH (09:00)
[2022-12-19] MEDS ORDERED: VANCOMYCIN ORAL SOLUTION 250 MG/5 ML BOTTLE PO SCH (09:00)
[2022-12-19 11:46] LABS: Glucose,Whole Blood 138 mg/dL (70-110)
[2022-12-19] MEDS: INSULIN DETEMIR (LEVEMIR) 100 UNIT/ML SYR SQ SCH ×2 (11:53→21:27)
--- NOTE | 2022-12-19 11:57 | XR ---
EXAMINATION TYPE: XR chest 1V portable DATE OF EXAM: 12/19/2022 CLINICAL HISTORY: Difficulty breathing an CHF progress study. TECHNIQUE: Single AP portable upright view of the chest is obtained. COMPARISON: Chest x-ray from October 01, 2022 FINDINGS: There is elevated left hemidiaphragm with left basilar opacity. Right lung is clear. Cardi ac silhouette size stable and within normal limits. Osseous structures are intact. IMPRESSION: Elevated left hemidiaphragm with left basilar opacity favoring scarring and/or atelectasi s redemonstrated. No significant change from most recent x-ray.
--- NOTE | 2022-12-19 11:59 | HP ---
HISTORY AND PHYSICAL CHIEF COMPLAINT: Diarrhea. HISTORY OF PRESENT ILLNESS: This is a 67-year-old gentleman with a past medical history of CVA, diabetes, and myocardial infarction, who presented with significant diarrhea. The automotive service writer reported diarrhea for at least 1 day with some abdominal cramping, and the patient's Clostridium difficile was positive and admitted for further evaluation and treatment. Currently, the patient is unable to give a coherent history. Most of the history is taken by discussion with staff and review of the chart. There is no history of fever, rigors, or chills. The kidney function appears to be normal. The patient is dehydrated. PAST MEDICAL HISTORY: Reviewed includes asthma, CVA, TIA, and diabetes mellitus. Rest of the history and rest of the medications noted. HOME MEDICATIONS: Noted trazodone. Doses and rest of the medications noted. ALLERGIES: Penicillin. FAMILY HISTORY: Could not be taken. SOCIAL HISTORY: Could not be taken. REVIEW OF SYSTEMS: Could not be taken. PHYSICAL EXAMINATION: VITAL SIGNS: Pulse is 74, blood pressure 91/50, respirations 16. HEENT: Conjunctivae are normal. Oral mucosa is dry. NECK: No jugular venous distention. CARDIOVASCULAR: S1 and S2 muffled. RESPIRATORY: Breath sounds diminished at the bases. ABDOMEN: Soft, obese, and nontender. No masses palpable. LEGS: No edema. NERVOUS SYSTEM: Nonfocal. SKIN: No ulcers or rashes. JOINTS: No active deforming arthropathy. LABORATORY DATA: Reviewed. ASSESSMENT: 1. Acute Clostridium difficile diarrhea. 2. Dehydration. 3. Diabetes mellitus, type 2. 4. Asthma. 5. Multiple medical issues. RECOMMENDATIONS: This is a 67-year-old gentleman presented with multiple complex medical issues. We will monitor the patient closely. We will continue with vancomycin and Infectious Disease evaluation. IV fluids. Resume the home medications. The prognosis is guarded because of multiple complex medical issues. Further recommendations to follow. See orders for details. MMODL / IJN: [id number] /
[2022-12-19] MEDS: SODIUM CHLORIDE 0.9% 1,000 ML IV SCH (12:08)
[2022-12-19] MEDS: VANCOMYCIN ORAL SOLUTION 250 MG/5 ML BOTTLE PO SCH ×3 (13:32→21:26)
[2022-12-19] MEDS ORDERED: DEXTROSE 50% SYRINGE 50 ML IVP PRN ×2 (16:15)
[2022-12-19 16:31] LABS: Appearance,Urine Turbid (Clear); Bacteria,Urine Occasional /hpf; Bilirubin,Urine Negative (Negative); Blood,Urine Large (Negative); Color,Urine Yellow; Glucose,Urine (UA) Negative (Negative); Hyaline Casts,Urine 12 /lpf (0-2); Ketones,Urine Negative (Negative); Leukocyte Esterase,Urine Large (Negative); Mucus,Urine Many /hpf; Nitrite,Urine Negative (Negative); PH, Urine 7.5 (5.0-8.0); Protein,Urine 2+ (Negative); RBC,Urine 180 /hpf (0-5); Specific Gravity,Urine 1.017 (1.001-1.035); Urobilinogen,Urine <2.0 mg/dL (<2.0); WBC,Urine >182 /hpf (0-5)
[2022-12-19 17:12] LABS: Glucose,Whole Blood 62 mg/dL (70-110)
[2022-12-19] MEDS: INSULIN ASPART (NovoLOG) 100 UNIT/ML VIAL SQ SCH ×2 (17:36→21:26)
[2022-12-19 17:50] LABS: Glucose,Whole Blood 95 mg/dL (70-110)
[2022-12-19 20:52] LABS: Glucose,Whole Blood 163 mg/dL (70-110)
--- NOTE | 2022-12-19 22:39 | P.CONS ---
History of Present Illness - Reason for Consult Consult date: 12/19/22 C. 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 difficile and the patient was brought into the hospital patient did not recall previous history of C. difficile colitis and at the same time did not recall the patient has been given antibiotic for any other reason prior to his diarrhea started on arrival to the ER the patient was afebrile and no fever has been recorded subsequently patient did have a normal white count kidney function has been normal liver enzymes are normal C. difficile was positive patient did have a KUB x-ray nonacute abdomen chest x-ray elevated left hemidiaphragm with left basilar opacity favoring scarring patient was started on oral vancomycin infectious disease was consulted for further management of antibiotic therapy Review of Systems Positive point has been mentioned in the HPI rest of the systems are negative Past Medical History Past Medical History: Asthma, CVA/TIA, Diabetes Mellitus, Myocardial Infarction ([place]), Osteoarthritis (OA) Additional Past Medical History / Comment(s): HX OF BACK SURGERY WITH BACK PAIN, DIABETIC NEUROPATHY, HEART MURMUR., KERATOCONUS., STOOL TEST POSITIVE ., ECZEMA. History of Any Multi-Drug Resistant Organisms: None Reported Past Surgical History: Back Surgery, Heart Catheterization With Stent Additional Past Surgical History / Comment(s): BACK SURGERY WITH DISC REMOVED AND FUSION., VASECTOMY, LEFT GREAT TOE. peg tube, tracheostomy. Past Anesthesia/Blood Transfusion Reactions: No Reported Reaction Past Psychological History: No Psychological Hx Reported Smoking Status: Never smoker Past Alcohol Use History: None Reported Past Drug Use History: None Reported - Past Family History Mother Family Medical History: No Reported History Medications and Allergies Home Medications Medication Instructions Recorded Confirmed Type Atorvastatin [Lipitor] 40 mg PO HS 08/13/22 12/18/22 History Aspirin 81 mg PO DAILY tab 08/30/22 12/18/22 Rx Clopidogrel [Plavix] 75 mg PO DAILY 10/01/22 12/18/22 History Docusate [Colace] 100 mg PO DAILY 10/01/22 12/18/22 History Famotidine 20 mg PO DAILY 10/01/22 12/18/22 History Insulin Glargine,Hum.rec.anlog 20 units SQ BID 10/01/22 12/18/22 History [Lantus Solostar Pen] Losartan [Cozaar] 25 mg PO DAILY 10/01/22 12/18/22 History carvediloL [Coreg] 6.25 mg PO BID 10/01/22 12/18/22 History guaiFENesin [guaiFENesin Oral 200 mg PO Q6H PRN 10/01/22 12/18/22 History Solution] hydrALAZINE HCL [Apresoline] 50 mg PO TID 10/01/22 12/18/22 History polyethylene glycoL 3350 [Miralax] 17 gm PO DAILY 10/01/22 12/18/22 History Albuterol Nebulized [Ventolin 2.5 mg INHALATION RT-Q6H 12/09/22 12/18/22 History Nebulized] Cholecalciferol [Vitamin D3 (25 25 mcg PO DAILY 12/09/22 12/18/22 History Mcg = 1000 Iu)] Fluticasone Propion/Salmeterol 1 puff INHALATION RT-BID 12/09/22 12/18/22 History [Wixela 250-50 Inhub] Insulin Aspart [NovoLOG Flexpen] See Protocol SQ ACHS 12/09/22 12/18/22 History Mecobalamin [Vitamin B-12] 1,000 mcg PO DAILY 12/09/22 12/18/22 History Multivitamins, Thera [Multivitamin 1 tab PO DAILY 12/09/22 12/18/22 History (formulary)] [place]-3 Fatty Acids [[place]-3] 1,000 mg PO BID 12/09/22 12/18/22 History diazePAM [Valium] 5 mg PO HS 12/09/22 12/18/22 History glipiZIDE [Glucotrol] 5 mg PO DAILY 12/09/22 12/18/22 History traZODone HCL [Desyrel] 100 mg PO HS 12/09/22 12/18/22 History Fenofibrate 54 mg PO DAILY 12/18/22 12/18/22 History Allergies Allergy/AdvReac Type Severity Reaction Status Date / Time Penicillins Allergy Unknown Verified 12/18/22 21:08 Physical Exam Vitals: Vital Signs Temp Pulse Pulse Resp BP BP BP 12/19/22 09:59 97.7 F 74 16 91/53 93/55 12/19/22 09:10 88 18 12/19/22 08:57 90 18 12/19/22 08:20 98.4 F 102 H 18 131/79 12/19/22 05:35 98.7 F 93 18 135/67 12/19/22 05:00 102 H 16 12/19/22 04:00 93 17 12/19/22 03:00 98 16 118/77 12/19/22 01:47 100 12/19/22 01:41 102 H 12/19/22 01:02 99 16 134/94 12/18/22 19:02 90 18 169/90 Pulse Ox 12/19/22 09:59 95 12/19/22 09:10 12/19/22 08:57 12/19/22 08:20 98 12/19/22 05:35 97 12/19/22 05:00 12/19/22 04:00 12/19/22 03:00 95 12/19/22 01:47 12/19/22 01:41 12/19/22 01:02 95 12/18/22 19:02 95 Intake and Output 12/18/22 12/19/22 12/19/22 22:59 06:59 14:59 Other: Voiding Method Diaper # Bowel Movements 1 Weight 81.647 kg GENERAL DESCRIPTION: Elderly male lying in bed, no distress. No tachypnea or accessory muscle of respiration use. HEENT: Shows Pallor , no scleral icterus. Oral mucous membrane is dry. No pharyngeal erythema or thrush NECK: Trachea central, no thyromegaly. LUNGS: Unlabored breathing. Decreased breath sound the bases. No wheeze or crackle. HEART: S1, S2, regular rate and rhythm. No loud murmur ABDOMEN: Soft, mild tenderness , EXTREMITIES: No edema of feet. SKIN: No rash, no masses palpable. NEUROLOGICAL: The patient is awake, alert, oriented x2, mood and affect normal. Results CBC & Chem 7: 12/21/22 08:33 03/23/23 11:57 Labs: Abnormal Lab Results - Last 24 Hours (Table) 12/18/22 12/18/22 12/19/22 Range/Units 20:15 23:17 05:15 Creatinine 0.58 L (0.66-1.25) mg/dL Glucose 118 H 130 H (74-99) mg/dL Calcium 10.4 H 10.5 H (8.4-10.2) mg/dL C. difficile (EIA) Intrp Positive A (Negative) Assessment and Plan (1) C. difficile diarrhea Current Visit: Yes Status: Acute Code(s): A04.72 - ENTEROCOLITIS D/T CLOSTRIDIUM DIFFICILE, NOT SPCF RECUR SNOMED Code(s): 2636658171933 Plan: 1patient presented to hospital with diarrhea of 1 day duration in this patient who did have multiple episodes also some crampy abdominal pain and mild tenderness on examination secondary to acute C. difficile colitis possible his first episode as per history however overall the patient elevated good historian. 2patient to continue with the vancomycin 250 mg p.o. every 6 hours 3if the diarrhea persist we will add Questran for symptomatic relief 4advised to increase his probiotic and yogurt intake We will follow on clinical condition and cultures to further adjust medication if needed Thank you for this consultation we will follow the patient along with you Time with Patient: Greater than 30
[2022-12-20] MEDS: SODIUM CHLORIDE 0.9% 1,000 ML IV SCH ×2 (00:08→17:31)
[2022-12-20] MEDS: ALBUTEROL NEBULIZED 2.5 MG/3 ML INHALATION SCH ×4 (01:49→21:22)
[2022-12-20 07:15] LABS: Glucose,Whole Blood 73 mg/dL (70-110)
[2022-12-20] MEDS: SYMBICORT 80-4.5 MCG INHALER INHALATION SCH ×2 (07:45→21:22)
[2022-12-20] MEDS: INSULIN ASPART (NovoLOG) 100 UNIT/ML VIAL SQ SCH ×4 (08:26→21:20)
[2022-12-20] MEDS: glipiZIDE 5 MG TAB PO SCH (09:00)
[2022-12-20] MEDS: FENOFIBRATE 54 MG TAB PO SCH (09:00)
[2022-12-20] MEDS: CLOPIDOGREL 75 MG TAB PO SCH (09:00)
[2022-12-20] MEDS: VANCOMYCIN ORAL SOLUTION 250 MG/5 ML BOTTLE PO SCH ×4 (09:00→21:44)
[2022-12-20] MEDS: INSULIN DETEMIR (LEVEMIR) 100 UNIT/ML SYR SQ SCH ×2 (09:00→21:44)
[2022-12-20] MEDS: ASPIRIN 81 MG PO SCH (09:00)
[2022-12-20 10:52] LABS: Basophils # (A) 0.05 X 10*3/uL (0.00-0.10); Basophils % (A) 0.7 %; Eosinophils # (A) 0.45 X 10*3/uL (0.04-0.35); Eosinophils % (A) 6.6 %; HCT 37.8 % (39.6-50.0); HGB 12.3 g/dL (13.0-17.0); Immature Grans, Automated 0.3 %; Lymphocytes # (A) 1.87 X 10*3/uL (0.90-5.00); Lymphocytes % (A) 27.6 %; MCH 28.7 pg (27.0-32.0); MCHC 32.5 g/dL (32.0-37.0); MCV 88.3 fL (80.0-97.0); Mean Platelet Volume 9.2 fL (9.5-12.2); Monocytes # (A) 0.65 X 10*3/uL (0.20-1.00); Monocytes % (A) 9.6 %; NRBC Per 100 WBC 0 /100 WBCS (0.0-0.0); Neutrophils # (A) 3.74 X 10*3/uL (1.80-7.70); Neutrophils % (A) 55.2 %; Platelet Count 216 X 10*3/uL (140-440); RBC 4.28 X 10*6/uL (4.40-5.60); WBC 6.78 X 10*3/uL (4.50-10.00)
[2022-12-20 11:27] LABS: Glucose,Whole Blood 115 mg/dL (70-110)
--- NOTE | 2022-12-20 11:47 | FL ---
Modified barium swallow. Consistencies administered: Thin, pudding, nectar thick, cracker consistencies Fluoro time: 1 minute 32 seconds Premature spill with vallecular and piriform retention with all consistencies. No laryngeal penetrati on or tracheal aspiration identified. No images were sent to PACS. Please see speech pathology report.
[2022-12-20 11:53] LABS: African American GFR (CKD) 119.7 (60.0-200.0); Anion Gap 8.6 mmol/L (10.00-18.00); BUN/Creat Ratio 20.33 Ratio (12.00-20.00); Blood Urea Nitrogen 12.2 mg/dL (9.0-27.0); Calcium 9.2 mg/dL (8.7-10.3); Carbon Dioxide 25.4 mmol/L (20.0-27.5); Non-African American GFR(CKD) 103.3 (60.0-200.0); Potassium 3.2 mmol/L (3.5-5.5)
--- NOTE | 2022-12-20 12:59 | PN ---
PROGRESS NOTE DATE OF SERVICE: 12/20/2022 SUBJECTIVE: This is a 67-year-old gentleman who was admitted with acute Clostridium difficile colitis . No chest pain. No palpitations. No fever. Barium swallow showed no aspiration. OBJECTIVE: VITAL SIGNS: On exam, pulse is 80, blood pressure 150/72, respirations 18. CHEST: Clear to auscultation. CARDIOVASCULAR: S1 and S2. ABDOMEN: Soft, nontender. No mass palpable. LABORATORY DATA: Reviewed. ASSESSMENT: 1. Acute Clostridium difficile colitis and diarrhea. 2. Dehydration. 3. Diabetes mellitus, type 2. 4. Asthma. 5. Multiple medical issues. 6. No code. DISCUSSION AND RECOMMENDATIONS: Recommend to continue current medications. Continue symptomatic treatment. Otherwise, at this time, continue with vancomycin, add Questran to the current regimen. Lactose- free diet. Guarded prognosis. Further recommendations to follow. RONAL / DENISHA: [id number] / MTDD
[2022-12-20 13:43] VITALS: BMI 25.8
[2022-12-20 17:03] LABS: Glucose,Whole Blood 129 mg/dL (70-110)
[2022-12-20] MEDS: CHOLESTYRAMINE (WITH SUGAR) 4 GM PACKET PO SCH ×2 (17:31→17:58)
--- NOTE | 2022-12-20 19:37 | P.PN ---
Subjective Progress Note Date: 12/20/22 Principal diagnosis: C. diff colitis Patient is a 67-year-old male with a past medical his significant for diabetes mellitus osteoarthritis [place] CVA TIA and asthma history of back surgery and chronic back pain patient presented to the hospital for evaluation of diarrhea, diagnosed with C. diff colitis. On today's evaluation that is 12/20/2022, the patient is afebrile the patient seemed to be slightly lethargic and not a good historian no vomiting or any worsening diarrhea has been reported by the nursing staff Objective - Vital Signs Vital signs: Vital Signs Temp 98.1 F 12/20/22 07:51 Pulse 74 12/20/22 07:51 Resp 18 12/20/22 07:51 BP 127/72 12/20/22 07:51 Pulse Ox 100 12/20/22 07:51 FiO2 Intake & Output 12/19/22 12/20/22 12/20/22 18:59 06:59 18:59 Intake Total 800 Output Total 250 Balance -250 800 Weight 81.647 kg Intake: Oral 800 Output: Urine 250 Other: Voiding Method Diaper Diaper Diaper Incontinent Incontinent # Voids 1 1 # Bowel Movements 1 3 - Exam GENERAL DESCRIPTION: An elderly male lying in bed in no distress RESPIRATORY SYSTEM: Unlabored breathing , decreased breath sounds at bases HEART: S1 S2 regular rate and rhythm , ABDOMEN: Soft , no tenderness EXTREMITIES: No edema feet - Labs CBC & Chem 7: 12/20/22 05:54 12/20/22 05:54 Labs: Abnormal Lab Results - Last 24 Hours (Table) 12/19/22 12/19/22 12/19/22 Range/Units 16:03 16:15 17:11 RBC (4.40-5.60) X 10*6/uL Hgb (13.0-17.0) g/dL Hct (39.6-50.0) % RDW (11.5-14.5) % MPV (9.5-12.2) fL Eosinophils # (0.04-0.35) X 10*3/uL Potassium (3.5-5.5) mmol/L Anion Gap (10.00-18.00) mmol/L BUN/Creatinine Ratio (12.00-20.00) Ratio Glucose (70-110) mg/dL POC Glucose (mg/dL) 62 L (70-110) mg/dL Hemoglobin A1c 6.9 H (0.0-6.0) % Urine Protein 2+ H (Negative) Urine Blood Large H (Negative) Ur Leukocyte Esterase Large H (Negative) Urine RBC 180 H (0-5) /hpf Urine WBC >182 H (0-5) /hpf Urine Bacteria Occasional H (None) /hpf Hyaline Casts 12 H (0-2) /lpf Urine Mucus Many H (None) /hpf 12/19/22 12/20/22 12/20/22 Range/Units 20:32 05:54 05:54 RBC 4.28 L (4.40-5.60) X 10*6/uL Hgb 12.3 L (13.0-17.0) g/dL Hct 37.8 L (39.6-50.0) % RDW 15.0 H (11.5-14.5) % MPV 9.2 L (9.5-12.2) fL Eosinophils # 0.45 H (0.04-0.35) X 10*3/uL Potassium 3.2 L (3.5-5.5) mmol/L Anion Gap 8.60 L (10.00-18.00) mmol/L BUN/Creatinine Ratio 20.33 H (12.00-20.00) Ratio Glucose 57 L (70-110) mg/dL POC Glucose (mg/dL) 163 H (70-110) mg/dL Hemoglobin A1c (0.0-6.0) % Urine Protein (Negative) Urine Blood (Negative) Ur Leukocyte Esterase (Negative) Urine RBC (0-5) /hpf Urine WBC (0-5) /hpf Urine Bacteria (None) /hpf Hyaline Casts (0-2) /lpf Urine Mucus (None) /hpf 12/20/22 Range/Units 11:26 RBC (4.40-5.60) X 10*6/uL Hgb (13.0-17.0) g/dL Hct (39.6-50.0) % RDW (11.5-14.5) % MPV (9.5-12.2) fL Eosinophils # (0.04-0.35) X 10*3/uL Potassium (3.5-5.5) mmol/L Anion Gap (10.00-18.00) mmol/L BUN/Creatinine Ratio (12.00-20.00) Ratio Glucose (70-110) mg/dL POC Glucose (mg/dL) 115 H (70-110) mg/dL Hemoglobin A1c (0.0-6.0) % Urine Protein (Negative) Urine Blood (Negative) Ur Leukocyte Esterase (Negative) Urine RBC (0-5) /hpf Urine WBC (0-5) /hpf Urine Bacteria (None) /hpf Hyaline Casts (0-2) /lpf Urine Mucus (None) /hpf Assessment and Plan (1) C. difficile diarrhea Current Visit: Yes Status: Acute Code(s): A04.72 - ENTEROCOLITIS D/T CLOSTRIDIUM DIFFICILE, NOT SPCF RECUR SNOMED Code(s): 0176800921124 Plan: 1patient presented to hospital with diarrhea of 1 day duration in this patient who did have multiple episodes also some crampy abdominal pain and mild tenderness on examination secondary to acute C. difficile colitis possible his first episode as per history however overall the patient elevated good historian. 2patient to continue with the vancomycin 250 mg p.o. every 6 hours 3-patient did have a positive UA hard to get any history from this patient regarding any urinary symptoms keeping in mind active C. diff and the patient did have a normal white count would hold on adding any further antibiotic for the positive UA which could be representing possible asymptomatic bacteriuria Time with Patient: Less than 30
[2022-12-20 20:21] LABS: Glucose,Whole Blood 113 mg/dL (70-110)
[2022-12-20] MEDS: ATORVASTATIN 40 MG TAB PO SCH (21:44)
[2022-12-20] MEDS: traZODone HCL 100 MG TAB PO SCH (21:44)
[2022-12-20] MEDS: diazePAM 5 MG TAB PO SCH (21:44)
[2022-12-21] MEDS: ALBUTEROL NEBULIZED 2.5 MG/3 ML INHALATION SCH ×4 (00:31→20:08)
[2022-12-21] MEDS: SODIUM CHLORIDE 0.9% 1,000 ML IV SCH ×2 (04:51→18:03)
[2022-12-21 07:23] LABS: Glucose,Whole Blood 76 mg/dL (70-110)
[2022-12-21] MEDS: INSULIN ASPART (NovoLOG) 100 UNIT/ML VIAL SQ SCH ×3 (07:30→17:53)
[2022-12-21] MEDS: SYMBICORT 80-4.5 MCG INHALER INHALATION SCH ×2 (08:12→20:09)
[2022-12-21] MEDS: CHOLESTYRAMINE (WITH SUGAR) 4 GM PACKET PO SCH ×3 (08:44→18:02)
[2022-12-21] MEDS: glipiZIDE 5 MG TAB PO SCH (08:44)
[2022-12-21] MEDS: INSULIN DETEMIR (LEVEMIR) 100 UNIT/ML SYR SQ SCH (08:44)
[2022-12-21] MEDS: VANCOMYCIN ORAL SOLUTION 250 MG/5 ML BOTTLE PO SCH ×4 (08:44→21:27)
[2022-12-21] MEDS: CLOPIDOGREL 75 MG TAB PO SCH (08:44)
[2022-12-21] MEDS: ASPIRIN 81 MG PO SCH (08:44)
[2022-12-21] MEDS: FENOFIBRATE 54 MG TAB PO SCH (08:44)
[2022-12-21 09:34] LABS: Basophils % (A) 1 %; Eosinophils # (A) 0.3 k/uL (0-0.7); Eosinophils % (A) 5 %; HCT 39.3 % (39.0-53.0); HGB 13.3 gm/dL (13.0-17.5); Lymphocytes # (A) 1.3 k/uL (1.0-4.8); Lymphocytes % (A) 21 %; MCH 29.4 pg (25.0-35.0); MCV 86.6 fL (80.0-100.0); Monocytes # (A) 0.4 k/uL (0-1.0); Monocytes % (A) 7 %; Neutrophils # (A) 3.9 k/uL (1.3-7.7); Neutrophils % (A) 64 %; Platelet Count 220 k/uL (150-450); RBC 4.53 m/uL (4.30-5.90); RDW 15.6 % (11.5-15.5); WBC 6.1 k/uL (3.8-10.6)
[2022-12-21 11:58] LABS: Glucose,Whole Blood 47 mg/dL (70-110)
[2022-12-21 13:03] LABS: Glucose,Whole Blood 48 mg/dL (70-110)
[2022-12-21 13:03] LABS: Glucose,Whole Blood 128 mg/dL (70-110)
--- NOTE | 2022-12-21 13:06 | PN ---
PROGRESS NOTE DATE OF SERVICE: 12/21/2022 SUBJECTIVE: This is a 67-year-old gentleman, who was admitted with acute Clostridium difficile colitis, continues to be confused. Diarrhea seems to be little better. The patient is on vancomycin. The patient is weak. OBJECTIVE: VITAL SIGNS: Pulse is 83, blood pressure 140/73, respirations 18. CHEST: A few scattered rhonchi. ABDOMEN: Soft, nontender. NERVOUS SYSTEM: Diffusely weak. LABORATORY DATA: Reviewed. ASSESSMENT: 1. Acute Clostridium difficile colitis and diarrhea. 2. Dehydration. 3. Diabetes mellitus, type 2. 4. Asthma. 5. Generalized diffuse weakness. 6. Multiple medical issues. 7. No code. RECOMMENDATIONS: Recommend to continue current medications. Continue symptomatic treatment. Continue with vancomycin and Questran. Otherwise PT, OT evaluation, possible ECF rehab. Guarded prognosis. Further recommendations to follow. RONAL / DENISHA: [id number] /
--- NOTE | 2022-12-21 13:54 | P.PN ---
Subjective Progress Note Date: 12/21/22 Principal diagnosis: C. diff colitis Patient is a 67-year-old male with a past medical his significant for diabetes mellitus osteoarthritis [place] CVA TIA and asthma history of back surgery and chronic back pain patient presented to the hospital for evaluation of diarrhea, diagnosed with C. diff colitis. On today's evaluation that is 12/21/2022, the patient remains to be afebrile, the patient is more awake and alert today patient is breathing comfortably on room air and is feeling better, the patient denies vomiting and diarrhea has slowed down per the patient Objective - Vital Signs Vital signs: Vital Signs Temp 97.5 F L 12/21/22 08:15 Pulse 76 12/21/22 12:02 Resp 15 12/21/22 08:15 BP 152/82 12/21/22 08:15 Pulse Ox 95 12/21/22 08:15 FiO2 Intake & Output 12/20/22 12/21/22 12/21/22 18:59 06:59 18:59 Intake Total 900 Output Total 200 Balance 700 Weight 81.647 kg Intake: Intake, IV Titration 900 Amount Sodium Chloride 0.9% 1, 900 000 ml @ 75 mls/hr IV . [id number] [facility] Rx#:[id number] Output: Urine 200 Other: Voiding Method Diaper Diaper Diaper Incontinent Incontinent Incontinent External Catheter # Voids 1 2 # Bowel Movements 2 - Exam GENERAL DESCRIPTION: An elderly male lying in bed in no distress RESPIRATORY SYSTEM: Unlabored breathing , decreased breath sounds at bases HEART: S1 S2 regular rate and rhythm , ABDOMEN: Soft , no tenderness EXTREMITIES: No edema feet - Labs CBC & Chem 7: 12/21/22 08:33 12/20/22 05:54 Labs: Abnormal Lab Results - Last 24 Hours (Table) 12/20/22 12/20/22 12/21/22 Range/Units 17:02 20:19 08:33 RDW 15.6 H (11.5-15.5) % POC Glucose (mg/dL) 129 H 113 H (70-110) mg/dL 12/21/22 12/21/22 12/21/22 Range/Units 11:56 12:23 13:01 RDW (11.5-15.5) % POC Glucose (mg/dL) 47 L 48 L 128 H (70-110) mg/dL Assessment and Plan (1) C. difficile diarrhea Current Visit: Yes Status: Acute Code(s): A04.72 - ENTEROCOLITIS D/T CLOSTRIDIUM DIFFICILE, NOT SPCF RECUR SNOMED Code(s): 9025780721918 Plan: 1patient presented to hospital with diarrhea of 1 day duration in this patient who did have multiple episodes also some crampy abdominal pain and mild tenderness on examination secondary to acute C. difficile colitis possible his first episode as per history however overall the patient elevated good historian. 2patient seemed to have shown clinical improvement and will continue with the vancomycin 250 mg p.o. every 6 hours along with Questran 3-patient did have a positive UA however the patient denies having any burning frequency or difficulty urination likely asymptomatic bacteriuria and no need for any antibiotic for the positive UA Time with Patient: Less than 30
--- NOTE | 2022-12-21 15:19 | CDI ---
Documentation Clarification Form Date: 12/21/2022 3:10:40 PM From: Marilee Booth RN CCDS Phone: [phone] Admit Date: 12/18/2022 10:57:00 PM Patient Name: Willie Mantilla Visit Number: [id number] Discharge Date: ATTENTION: The Clinical Documentation Specialists (CDI) and [facility] Coding Staff appreciate your assistance in clarifying documentation. Please respond to the clarification below the line at the bottom and electronically sign. The CDI & [facility] Coding staff will review the response and follow-up if needed. Please note: Queries are made part of the Legal Health Record. If you have any questions, please contact the author of this message via ITS. Dr. Ace Morales A Bilateral buttock, stage 2 pressure ulcer is documented by Nursing in pressure injury assessment, 12/21. Based on this information and the findings below, is there an additional diagnosis that is clinically appropriate for this patient? History/Risk Factors: 67-year-old male presents to the ED with abdominal pain, dehydration and diarrhea. Medical History: Asthma and DM 2. 12/21, H&P. Clinical Indicators: Admitting Diagnosis: Acute Clostridium difficile colitis and diarrhea. Location: Bilateral Buttock Wound description: 2cm length, 2cm width, wound margins description macerated, diallo wound texture maceration, diallo wound color erythema, diallo wound warm, diallo wound tenderness Yes. Treatment: Barrier cream applied; Absorbant under pad check hourly, Zinc paste. Turn 2Q Hours while in bed. Vanomycn oral and Questran. Is there an additional diagnosis that is clinically appropriate for this patient? [ ] Bilateral Buttock Pressure Ulcer Stage 2 [ ] Other condition, please specify [ ] Unable to determine Clinical Definitions: Stage 1 Pressure Ulcer: intact skin, non-blanching redness of local area Stage 2 Pressure Ulcer: Partial thickness, loss of dermis, pink wound bed Stage 3 Pressure Ulcer: Full thickness tissue loss Stage 4 Pressure Ulcer: Full thickness tissue loss with exposed bone, tendon, or muscle. Unstageable pressure ulcer: Full thickness tissue loss in which the base of the ulcer is covered by slough (yellow, montaño, koenig, green or brown) and/or eschar (montaño, brown or black) in the wound bed. (Template Last Revised: November 2020) Bilateral Buttock Pressure Ulcer Stage 2 MTDD
[2022-12-21 16:42] LABS: African American GFR (CKD) 119.7 (60.0-200.0); Anion Gap 13.7 mmol/L (10.00-18.00); Blood Urea Nitrogen 8.4 mg/dL (9.0-27.0); Calcium 9.2 mg/dL (8.7-10.3); Carbon Dioxide 22.3 mmol/L (20.0-27.5); Non-African American GFR(CKD) 103.3 (60.0-200.0); Potassium 3.2 mmol/L (3.5-5.5)
[2022-12-21 17:13] LABS: Glucose,Whole Blood 93 mg/dL (70-110)
[2022-12-21] MEDS ORDERED: ALBUTEROL NEBULIZED 2.5 MG/3 ML INHALATION PRN (20:11)
[2022-12-21 20:36] LABS: Glucose,Whole Blood 90 mg/dL (70-110)
[2022-12-21] MEDS: diazePAM 5 MG TAB PO SCH (21:20)
[2022-12-21] MEDS: traZODone HCL 100 MG TAB PO SCH (21:20)
[2022-12-21] MEDS: ATORVASTATIN 40 MG TAB PO SCH (21:20)
[2022-12-22] MEDS: INSULIN DETEMIR (LEVEMIR) 100 UNIT/ML SYR SQ SCH ×3 (03:38→20:53)
[2022-12-22] MEDS: INSULIN ASPART (NovoLOG) 100 UNIT/ML VIAL SQ SCH ×5 (03:38→20:29)
[2022-12-22 05:51] LABS: Glucose,Whole Blood 90 mg/dL (70-110)
[2022-12-22] MEDS: SODIUM CHLORIDE 0.9% 1,000 ML IV SCH ×2 (06:14→20:54)
[2022-12-22 07:46] LABS: Glucose,Whole Blood 95 mg/dL (70-110)
[2022-12-22] MEDS: SYMBICORT 80-4.5 MCG INHALER INHALATION SCH ×2 (09:06→20:29)
[2022-12-22] MEDS: ALBUTEROL NEBULIZED 2.5 MG/3 ML INHALATION SCH ×3 (09:06→20:29)
[2022-12-22] MEDS: FENOFIBRATE 54 MG TAB PO SCH (09:09)
[2022-12-22] MEDS: ASPIRIN 81 MG PO SCH (09:09)
[2022-12-22] MEDS: glipiZIDE 5 MG TAB PO SCH (09:09)
[2022-12-22] MEDS: CLOPIDOGREL 75 MG TAB PO SCH (09:09)
[2022-12-22] MEDS: CHOLESTYRAMINE (WITH SUGAR) 4 GM PACKET PO SCH ×3 (09:09→18:28)
[2022-12-22] MEDS: VANCOMYCIN ORAL SOLUTION 250 MG/5 ML BOTTLE PO SCH ×4 (10:16→20:53)
[2022-12-22 11:22] LABS: Glucose,Whole Blood 113 mg/dL (70-110)
[2022-12-22 12:29] LABS: African American GFR (CKD) >90 (>60 ml/min/1.73 sqM); Anion Gap 9 mmol/L; Blood Urea Nitrogen 5 mg/dL (9-20); Calcium 9.1 mg/dL (8.4-10.2); Carbon Dioxide 24 mmol/L (22-30); Chloride 107 mmol/L (98-107); Glucose 101 mg/dL (74-99); Non-African American GFR(CKD) >90 (>60 ml/min/1.73 sqM); Potassium 3.4 mmol/L (3.5-5.1); Sodium 140 mmol/L (137-145)
[2022-12-22] MEDS ORDERED: POTASSIUM CHLORIDE ER 20 MEQ TAB.ER PO STA (13:56)
--- NOTE | 2022-12-22 14:12 | P.PN ---
Subjective Progress Note Date: 12/22/22 This is a 67-year-old male who was recently admitted with acute Clostridium difficile colitis with some confusion. Patient being monitored closely with infectious disease following and is also maintained on Questran and having some improvements in bowel movements. Patient will continue on oral Vanco for a ten- day course. Patient also continues with significant weakness and planning for ECF with case management following working on accepting ECF. Patient is afebrile and tolerating oral intake with no reports of nausea vomiting noted. Patient denies chest pain or shortness of breath. Recommend PT/OT therapy daily. Potassium slightly low at 3.4 and will replace per protocol and recommend daily supplementation Review of systems: Constitutional: No reports of fatigue, fever, or chills Cardiovascular: No reports of chest pain or palpitations Respiratory: No reports of shortness of breath or cough GI: no reports of nausea, no reports of vomiting, reports more formed stool : No reports of dysuria or retention Neurovascular: reports of generalized weakness All medications have been reviewed Active Medications Albuterol Sulfate (Albuterol Nebulized 2.5 Mg/3 Ml) 2.5 mg INHALATION RT-TID [facility] Last Admin: 12/22/22 11:19 Dose: 2.5 mg Albuterol Sulfate (Albuterol Nebulized 2.5 Mg/3 Ml) 2.5 mg INHALATION RT-Q2H PRN PRN Reason: Shortness Of Breath Or Wheezing Aspirin (Aspirin 81 Mg) 81 mg PO DAILY [facility] Last Admin: 12/22/22 09:09 Dose: 81 mg Atorvastatin Calcium (Atorvastatin 40 Mg Tab) 40 mg PO HS [facility] Last Admin: 12/21/22 21:20 Dose: 40 mg Budesonide/Formoterol Fumarate (Symbicort 80-4.5 Mcg Inhaler) 2 puff INHALATION RT-BID [facility] Last Admin: 12/22/22 09:06 Dose: Not Given Cholestyramine Resin (Cholestyramine (With Sugar) 4 Gm Packet) 4 gm PO TID BETWEEN MEALS [facility] Last Admin: 12/22/22 09:09 Dose: 4 gm Clopidogrel Bisulfate (Clopidogrel 75 Mg Tab) 75 mg PO DAILY [facility] Last Admin: 12/22/22 09:09 Dose: 75 mg Dextrose/Water (Dextrose 50% Syringe 50 Ml) 25 ml IVP PER PROTOCOL PRN; Protocol PRN Reason: Hypoglycemia Dextrose/Water (Dextrose 50% Syringe 50 Ml) 50 ml IVP PER PROTOCOL PRN; Protocol PRN Reason: Hypoglycemia Last Admin: 12/21/22 12:27 Dose: 50 ml Diazepam (Diazepam 5 Mg Tab) 5 mg PO [facility] Last Admin: 12/21/22 21:20 Dose: 5 mg Fenofibrate (Fenofibrate 54 Mg Tab) 54 mg PO DAILY [facility] Last Admin: 12/22/22 09:09 Dose: 54 mg Glipizide (Glipizide 5 Mg Tab) 5 mg PO DAILY [facility] Last Admin: 12/22/22 09:09 Dose: 5 mg Sodium Chloride (Saline 0.9%) 1,000 mls @ 75 mls/hr IV .[id number] [facility] Last Admin: 12/22/22 06:14 Dose: 75 mls/hr Insulin Aspart (Insulin Aspart (Novolog) 100 Unit/Ml Vial) 0 unit SQ ACHS [facility]; Protocol Last Admin: 12/22/22 12:06 Dose: Not Given Insulin Detemir (Insulin Detemir (Levemir) 100 Unit/Ml Syr) 20 unit SQ BID [facility] Last Admin: 12/22/22 09:09 Dose: 20 unit Naloxone HCl (Naloxone 0.4 Mg/Ml 1 Ml Vial) 0.2 mg IV Q2M PRN PRN Reason: Opioid Reversal Potassium Chloride (Potassium Chloride Er 20 Meq Tab.Er) 20 meq PO DAILY [facility] Trazodone HCl (Trazodone Hcl 100 Mg Tab) 100 mg PO [facility] Last Admin: 12/21/22 21:20 Dose: 100 mg Vancomycin HCl (Vancomycin Oral Solution 250 Mg/5 Ml Bottle) 250 mg PO QID [facility]; Protocol Last Admin: 12/22/22 14:01 Dose: 250 mg PHYSICAL EXAMINATION: GENERAL: The patient is alert and oriented x4, Well developed, well nourished. Elderly-appearing HEENT: Pupils are round and equally reacting to light. EOMI. no scleral icterus. No conjunctival pallor. Normocephalic, atraumatic. No pharyngeal erythema. No thyromegaly. CARDIOVASCULAR: S1 and S2 muffled PULMONARY: diminished breath sounds bilaterally with no wheezing or rhonchi noted. ABDOMEN: soft. Nontender on exam. non-distended, normoactive bowel sounds. No palpable organomegaly. MUSCULOSKELETAL: No joint swelling or deformity. EXTREMITIES: No cyanosis, clubbing, or pedal edema. NEUROLOGICAL: Gross neurological examination did not reveal any focal deficits. Diffuse weakness SKIN: No rashes. Stage II bilateral pressure ulcers on the buttock Assessment: Acute Clostridium difficile colitis with diarrhea Dehydration Hypokalemia diabetes mellitus, type II Asthma, not an exacerbation generalized diffuse weakness History of CVA/TIA Bilateral buttock pressure ulcer stage II GI prophylaxis DVT prophylaxis Full code Plan: Recommend to continue with current medications and management with infectious disease following. Patient is maintained on oral Vanco along with Questran and having some improvement in diarrhea reporting his stools more formed Encourage oral intake and will continue to monitor Accu-Cheks before meals and at bedtime and continue current regimen Patient with significant weakness would recommend PT/OT therapy daily and case management is following working on accepting ECF for continued strength and mobility Recommend continue with local wound care and offloading to the buttock area with frequent position changes every 2 hours Due to multiple complex medical issues, prognosis is guarded Awaiting insurance authorization for ECF and an accepting facility. Possible discharge in the next 24-48 hours The impression and plan of care has been dictated by Blessing Garg, nurse practitioner as directed. Dr. Andrew MD I have performed a history and examination and MDM of this patient, discussed the same with the dictator, and agree with the dictator's assessment and plan as written ,documented as a scribe. Based on total visit time, I have performed more than 50% of the visit. Any additional findings or plans will be noted. Objective - Vital Signs Vital signs: Vital Signs Temp 97.6 F 12/22/22 07:00 Pulse 80 12/22/22 11:31 Resp 16 12/22/22 08:00 BP 164/83 12/22/22 07:00 Pulse Ox 94 L 12/22/22 07:00 FiO2 Intake & Output 12/21/22 12/22/22 12/22/22 18:59 06:59 18:59 Intake Total 980 900 Output Total 1600 750 Balance -620 150 Intake: Intake, IV Titration 900 Amount Sodium Chloride 0.9% 1, 900 000 ml @ 75 mls/hr IV . [id number] [facility] Rx#:[id number] Oral 980 Output: Urine 1600 750 Other: Voiding Method Diaper Diaper Diaper Incontinent Incontinent Incontinent External Catheter External Catheter External Catheter # Bowel Movements 1 - Labs CBC & Chem 7: 12/21/22 08:33 12/22/22 11:57 Labs: Abnormal Lab Results - Last 24 Hours (Table) 12/21/22 12/22/22 12/22/22 Range/Units 08:33 11:21 11:57 Potassium 3.2 L 3.4 L (3.5-5.5) mmol/L BUN 8.4 L 5 L (9.0-27.0) mg/dL Creatinine 0.50 L (0.66-1.25) mg/dL Glucose 101 H (74-99) mg/dL POC Glucose (mg/dL) 113 H (70-110) mg/dL
[2022-12-22 17:17] LABS: Glucose,Whole Blood 109 mg/dL (70-110)
[2022-12-22 19:53] LABS: Glucose,Whole Blood 136 mg/dL (70-110)
[2022-12-22] MEDS: traZODone HCL 100 MG TAB PO SCH (20:53)
[2022-12-22] MEDS: ATORVASTATIN 40 MG TAB PO SCH (20:53)
[2022-12-22] MEDS: diazePAM 5 MG TAB PO SCH (20:53)
[2022-12-23 07:24] LABS: Glucose,Whole Blood 61 mg/dL (70-110)
[2022-12-23] MEDS: INSULIN ASPART (NovoLOG) 100 UNIT/ML VIAL SQ SCH ×4 (07:37→21:42)
[2022-12-23] MEDS: ALBUTEROL NEBULIZED 2.5 MG/3 ML INHALATION SCH ×3 (07:42→21:20)
[2022-12-23] MEDS: SYMBICORT 80-4.5 MCG INHALER INHALATION SCH ×2 (07:42→21:21)
[2022-12-23 07:54] LABS: Glucose,Whole Blood 94 mg/dL (70-110)
[2022-12-23] MEDS: CHOLESTYRAMINE (WITH SUGAR) 4 GM PACKET PO SCH ×3 (08:41→18:21)
[2022-12-23] MEDS: CLOPIDOGREL 75 MG TAB PO SCH (08:41)
[2022-12-23] MEDS: POTASSIUM CHLORIDE ER 20 MEQ TAB.ER PO SCH (08:41)
[2022-12-23] MEDS: ASPIRIN 81 MG PO SCH (08:42)
[2022-12-23] MEDS: VANCOMYCIN ORAL SOLUTION 250 MG/5 ML BOTTLE PO SCH ×4 (08:42→21:42)
[2022-12-23] MEDS: INSULIN DETEMIR (LEVEMIR) 100 UNIT/ML SYR SQ SCH ×2 (08:42→21:42)
[2022-12-23] MEDS: FENOFIBRATE 54 MG TAB PO SCH (08:42)
[2022-12-23] MEDS: glipiZIDE 5 MG TAB PO SCH (08:42)
[2022-12-23 11:41] LABS: Glucose,Whole Blood 123 mg/dL (70-110)
[2022-12-23] MEDS: SODIUM CHLORIDE 0.9% 1,000 ML IV SCH ×2 (15:26→15:53)
--- NOTE | 2022-12-23 15:56 | P.PN ---
Subjective Progress Note Date: 12/22/22 Principal diagnosis: C. diff colitis Patient is a 67-year-old male with a past medical his significant for diabetes mellitus osteoarthritis [place] CVA TIA and asthma history of back surgery and chronic back pain patient presented to the hospital for evaluation of diarrhea, diagnosed with C. diff colitis. On today's evaluation that is 12/22/2022, the patient continues to be afebrile, the patient is is breathing comfortably on room air and is feeling better, the patient denies vomiting and diarrhea has slowed down per the nursing staff Objective - Vital Signs Vital signs: Vital Signs Temp 97.6 F 12/22/22 07:00 Pulse 80 12/22/22 11:31 Resp 16 12/22/22 08:00 BP 164/83 12/22/22 07:00 Pulse Ox 94 L 12/22/22 07:00 FiO2 Intake & Output 12/21/22 12/22/22 12/22/22 18:59 06:59 18:59 Intake Total 980 900 Output Total 1600 750 Balance -620 150 Intake: Intake, IV Titration 900 Amount Sodium Chloride 0.9% 1, 900 000 ml @ 75 mls/hr IV . [id number] [facility] Rx#:[id number] Oral 980 Output: Urine 1600 750 Other: Voiding Method Diaper Diaper Diaper Incontinent Incontinent Incontinent External Catheter External Catheter External Catheter # Bowel Movements 1 - Exam GENERAL DESCRIPTION: An elderly male lying in bed in no distress RESPIRATORY SYSTEM: Unlabored breathing , decreased breath sounds at bases HEART: S1 S2 regular rate and rhythm , ABDOMEN: Soft , no tenderness EXTREMITIES: No edema feet - Labs CBC & Chem 7: 12/21/22 08:33 12/22/22 11:57 Labs: Abnormal Lab Results - Last 24 Hours (Table) 12/21/22 12/22/22 12/22/22 Range/Units 08:33 11:21 11:57 Potassium 3.2 L 3.4 L (3.5-5.5) mmol/L BUN 8.4 L 5 L (9.0-27.0) mg/dL Creatinine 0.50 L (0.66-1.25) mg/dL Glucose 101 H (74-99) mg/dL POC Glucose (mg/dL) 113 H (70-110) mg/dL Assessment and Plan (1) C. difficile diarrhea Current Visit: Yes Status: Acute Code(s): A04.72 - ENTEROCOLITIS D/T CLOSTRIDIUM DIFFICILE, NOT SPCF RECUR SNOMED Code(s): 8818808153725 Plan: 1patient presented to hospital with diarrhea of 1 day duration in this patient who did have multiple episodes also some crampy abdominal pain and mild tenderness on examination secondary to acute C. difficile colitis possible his first episode as per history however overall the patient elevated good historian. 2patient seemed to have shown clinical improvement and will continue with the vancomycin 250 mg p.o. every 6 hours along with Questran 3-patient did have a positive UA however the patient denies having any burning frequency or difficulty urination likely asymptomatic bacteriuria and no need for antibiotics specific for the positive UA Time with Patient: Less than 30
--- NOTE | 2022-12-23 15:58 | P.PN ---
Subjective Progress Note Date: 12/23/22 Principal diagnosis: C. diff colitis Patient is a 67-year-old male with a past medical his significant for diabetes mellitus osteoarthritis [place] CVA TIA and asthma history of back surgery and chronic back pain patient presented to the hospital for evaluation of diarrhea, diagnosed with C. diff colitis. On today's evaluation that is 12/23/2022, the patient denies any fever or any chills, the patient is is breathing comfortably on room air, the patient denies nausea vomiting and diarrhea has resolved per the patient feeling better Objective - Vital Signs Vital signs: Vital Signs Temp 98.0 F 12/23/22 11:32 Pulse 85 12/23/22 11:32 Resp 16 12/23/22 11:32 BP 156/87 12/23/22 11:32 Pulse Ox 95 12/23/22 11:32 FiO2 Intake & Output 12/22/22 12/23/22 12/23/22 18:59 06:59 18:59 Intake Total 1140 6152 Output Total 1400 1200 Balance -260 4952 Intake: Intake, IV Titration 900 Amount Sodium Chloride 0.9% 1, 900 000 ml @ 75 mls/hr IV . [id number] [facility] Rx#:[id number] Oral 240 6152 Output: Urine 1400 1200 Other: Voiding Method Diaper Diaper Diaper Incontinent Incontinent Incontinent External Catheter External Catheter External Catheter - Exam GENERAL DESCRIPTION: An elderly male lying in bed in no distress RESPIRATORY SYSTEM: Unlabored breathing , decreased breath sounds at bases HEART: S1 S2 regular rate and rhythm , ABDOMEN: Soft , no tenderness EXTREMITIES: No edema feet - Labs CBC & Chem 7: 12/21/22 08:33 12/22/22 11:57 Labs: Abnormal Lab Results - Last 24 Hours (Table) 12/22/22 12/23/22 12/23/22 Range/Units 19:51 07:22 11:39 POC Glucose (mg/dL) 136 H 61 L 123 H (70-110) mg/dL Assessment and Plan (1) C. difficile diarrhea Current Visit: Yes Status: Acute Code(s): A04.72 - ENTEROCOLITIS D/T CLOSTRIDIUM DIFFICILE, NOT SPCF RECUR SNOMED Code(s): 6715508043133 Plan: 1patient presented to hospital with diarrhea of 1 day duration in this patient who did have multiple episodes also some crampy abdominal pain and mild tenderness on examination secondary to acute C. difficile colitis possible his first episode as per history however overall the patient elevated good historian. 2patient seemed to have shown clinical improvement and will continue with the vancomycin 250 mg p.o. every 6 hours 10 days to finish his course of therapy along with Questran as needed Time with Patient: Less than 30
[2022-12-23 17:24] LABS: Glucose,Whole Blood 173 mg/dL (70-110)
[2022-12-23 20:05] LABS: Glucose,Whole Blood 135 mg/dL (70-110)
[2022-12-23] MEDS: ATORVASTATIN 40 MG TAB PO SCH (20:43)
[2022-12-23] MEDS: traZODone HCL 100 MG TAB PO SCH (20:43)
[2022-12-23] MEDS: diazePAM 5 MG TAB PO SCH (20:43)
--- NOTE | 2022-12-23 20:53 | P.PN ---
Subjective Progress Note Date: 12/23/22 This is a 67-year-old male who was recently admitted with acute Clostridium difficile colitis with some confusion. Patient being monitored closely with infectious disease following and is also maintained on Questran and having some improvements in bowel movements. Patient will continue on oral Vanco for a ten- day course. Patient also continues with significant weakness and planning for ECF with case management following working on accepting ECF. Patient is afebrile and tolerating oral intake with no reports of nausea vomiting noted. Patient denies chest pain or shortness of breath. Recommend PT/OT therapy daily. Potassium slightly low at 3.4 and will replace per protocol and recommend daily supplementation 12/23/2022 Patient is seen and evaluated in follow-up today reports his diarrhea is improving and having more formed stools. Patient is tolerating diet with no reports of nausea or vomiting noted. Patient continues with significant weakness with social work following working on possible ECF. Currently there are no accepting facilities and social work working with family as there are some social dynamics as well with significant barriers to safe discharge planning. Patient is currently afebrile and maintained on oral Vanco with infectious disease following for C. diff. No reports of shortness of breath or chest pain noted. Review of systems: Constitutional: No reports of fatigue, fever, or chills Cardiovascular: No reports of chest pain or palpitations Respiratory: No reports of shortness of breath or cough GI: no reports of nausea, no reports of vomiting, reports more formed stool : No reports of dysuria or retention Neurovascular: reports of generalized weakness All medications have been reviewed Active Medications Albuterol Sulfate (Albuterol Nebulized 2.5 Mg/3 Ml) 2.5 mg INHALATION RT-TID [facility] Last Admin: 12/23/22 11:07 Dose: 2.5 mg Albuterol Sulfate (Albuterol Nebulized 2.5 Mg/3 Ml) 2.5 mg INHALATION RT-Q2H PRN PRN Reason: Shortness Of Breath Or Wheezing Aspirin (Aspirin 81 Mg) 81 mg PO DAILY [facility] Last Admin: 12/23/22 08:42 Dose: 81 mg Atorvastatin Calcium (Atorvastatin 40 Mg Tab) 40 mg PO HS [facility] Last Admin: 12/23/22 20:43 Dose: 40 mg Budesonide/Formoterol Fumarate (Symbicort 80-4.5 Mcg Inhaler) 2 puff INHALATION RT-BID [facility] Last Admin: 12/23/22 07:42 Dose: 2 puff Cholestyramine Resin (Cholestyramine (With Sugar) 4 Gm Packet) 4 gm PO TID BETWEEN MEALS [facility] Last Admin: 12/23/22 18:21 Dose: 4 gm Clopidogrel Bisulfate (Clopidogrel 75 Mg Tab) 75 mg PO DAILY [facility] Last Admin: 12/23/22 08:41 Dose: 75 mg Dextrose/Water (Dextrose 50% Syringe 50 Ml) 25 ml IVP PER PROTOCOL PRN; Protocol PRN Reason: Hypoglycemia Dextrose/Water (Dextrose 50% Syringe 50 Ml) 50 ml IVP PER PROTOCOL PRN; P rotocol PRN Reason: Hypoglycemia Last Admin: 12/21/22 12:27 Dose: 50 ml Diazepam (Diazepam 5 Mg Tab) 5 mg PO [facility] Last Admin: 12/23/22 20:43 Dose: 5 mg Fenofibrate (Fenofibrate 54 Mg Tab) 54 mg PO DAILY [facility] Last Admin: 12/23/22 08:42 Dose: 54 mg Glipizide (Glipizide 5 Mg Tab) 5 mg PO DAILY [facility] Last Admin: 12/23/22 08:42 Dose: Not Given Sodium Chloride (Saline 0.9%) 1,000 mls @ 75 mls/hr IV .[id number] [facility] Last Admin: 12/23/22 15:53 Dose: 75 mls/hr Insulin Aspart (Insulin Aspart (Novolog) 100 Unit/Ml Vial) 0 unit SQ ACHS [facility]; Protocol Last Admin: 12/23/22 18:20 Dose: 2 unit Insulin Detemir (Insulin Detemir (Levemir) 100 Unit/Ml Syr) 20 unit SQ BID [facility] Last Admin: 12/23/22 08:42 Dose: Not Given Naloxone HCl (Naloxone 0.4 Mg/Ml 1 Ml Vial) 0.2 mg IV Q2M PRN PRN Reason: Opioid Reversal Potassium Chloride (Potassium Chloride Er 20 Meq Tab.Er) 20 meq PO DAILY [facility] Last Admin: 12/23/22 08:41 Dose: 20 meq Trazodone HCl (Trazodone Hcl 100 Mg Tab) 100 mg PO HS [facility] Last Admin: 12/23/22 20:43 Dose: 100 mg Vancomycin HCl (Vancomycin Oral Solution 250 Mg/5 Ml Bottle) 250 mg PO QID [facility]; Protocol Last Admin: 12/23/22 18:21 Dose: 250 mg PHYSICAL EXAMINATION: GENERAL: The patient is alert and oriented x4, Well developed, well nourished. Elderly-appearing HEENT: Pupils are round and equally reacting to light. EOMI. no scleral icterus. No conjunctival pallor. Normocephalic, atraumatic. No pharyngeal erythema. No thyromegaly. CARDIOVASCULAR: S1 and S2 muffled PULMONARY: diminished breath sounds bilaterally with no wheezing or rhonchi n oted. ABDOMEN: soft. Nontender on exam. non-distended, normoactive bowel sounds. No palpable organomegaly. MUSCULOSKELETAL: No joint swelling or deformity. EXTREMITIES: No cyanosis, clubbing, or pedal edema. NEUROLOGICAL: Gross neurological examination did not reveal any focal deficits. Diffuse weakness SKIN: No rashes. Stage II bilateral pressure ulcers on the buttock Assessment: Acute Clostridium difficile colitis with diarrhea Dehydration Hypokalemia diabetes mellitus, type II Asthma, not an exacerbation generalized diffuse weakness History of CVA/TIA Bilateral buttock pressure ulcer stage II GI prophylaxis DVT prophylaxis Full code Plan: Recommend to continue with current medications and management with infectious disease following. Patient is maintained on oral Vanco along with Questran and having some improvement in diarrhea reporting his stools more formed. Patient i s tolerating diet on dysphagia diet and speech recommends nectar thickened although patient does not like the consistency and has not been using. Highly encouraged aspiration cautions with head of the bed elevated 30-45 at all times. Encourage oral intake and will continue to monitor Accu-Cheks before meals and at bedtime and continue current regimen Patient with significant weakness would recommend PT/OT therapy daily and case management is following working on accepting ECF for continued strength and mobility Recommend continue with local wound care and offloading to the buttock area with frequent position changes every 2 hours Due to multiple complex medical issues, prognosis is guarded Awaiting insurance authorization for ECF and an accepting facility. Apparently patient's is his power of ip attorney although patient does have a girlfriend that he was currently living with and has been reported that is not very compliant with helping him with medications and getting to appointments or diet control and diabetes management hence there is no safe discharge plan at this time as there is also no accepting ECF at this time. Will discuss further with family along with case management/social work about a safe discharge plan. The impression and plan of care has been dictated by Blessing Britany, nurse practitioner as directed. Dr. Andrew MD I have performed a history and examination and MDM of this patient, discussed the same with the dictator, and agree with the dictator's assessment and plan as written ,documented as a scribe. Based on total visit time, I have performed more than 50% of the visit. Any additional findings or plans will be noted. Objective - Vital Signs Vital signs: Vital Signs Temp 98.0 F 12/23/22 11:32 Pulse 85 12/23/22 11:32 Resp 16 12/23/22 11:32 BP 156/87 12/23/22 11:32 Pulse Ox 95 12/23/22 11:32 FiO2 Intake & Output 12/23/22 12/23/22 12/24/22 06:59 18:59 06:59 Intake Total 6152 Output Total 1200 600 Balance 4952 -600 Weight 81.647 kg Intake: Oral 6152 Output: Urine 1200 600 Other: Voiding Method Diaper Diaper Incontinent Incontinent External Catheter External Catheter - Labs CBC & Chem 7: 12/21/22 08:33 12/22/22 11:57 Labs: Abnormal Lab Results - Last 24 Hours (Table) 12/23/22 12/23/22 12/23/22 Range/Units 07:22 11:39 17:19 POC Glucose (mg/dL) 61 L 123 H 173 H (70-110) mg/dL 12/23/22 Range/Units 20:04 POC Glucose (mg/dL) 135 H (70-110) mg/dL
[2022-12-24] MEDS: SODIUM CHLORIDE 0.9% 1,000 ML IV SCH (04:10)
[2022-12-24] MEDS: SYMBICORT 80-4.5 MCG INHALER INHALATION SCH ×2 (08:04→19:52)
[2022-12-24] MEDS: ALBUTEROL NEBULIZED 2.5 MG/3 ML INHALATION SCH ×3 (08:04→19:49)
[2022-12-24 08:27] LABS: Glucose,Whole Blood 119 mg/dL (70-110)
[2022-12-24] MEDS: INSULIN ASPART (NovoLOG) 100 UNIT/ML VIAL SQ SCH ×4 (08:36→20:14)
[2022-12-24] MEDS: INSULIN DETEMIR (LEVEMIR) 100 UNIT/ML SYR SQ SCH ×2 (08:41→20:14)
[2022-12-24] MEDS: VANCOMYCIN ORAL SOLUTION 250 MG/5 ML BOTTLE PO SCH ×4 (08:48→22:17)
[2022-12-24] MEDS: POTASSIUM CHLORIDE ER 20 MEQ TAB.ER PO SCH (08:49)
[2022-12-24] MEDS: glipiZIDE 5 MG TAB PO SCH (08:49)
[2022-12-24] MEDS: CLOPIDOGREL 75 MG TAB PO SCH (08:50)
[2022-12-24] MEDS: CHOLESTYRAMINE (WITH SUGAR) 4 GM PACKET PO SCH ×3 (08:50→17:13)
[2022-12-24] MEDS: ASPIRIN 81 MG PO SCH (08:50)
[2022-12-24] MEDS: FENOFIBRATE 54 MG TAB PO SCH (08:50)
[2022-12-24 11:11] LABS: Basophils # (A) 0.06 X 10*3/uL (0.00-0.10); Basophils % (A) 0.8 %; Eosinophils # (A) 0.37 X 10*3/uL (0.04-0.35); Eosinophils % (A) 4.8 %; HGB 12.6 g/dL (13.0-17.0); Immature Grans, Automated 0.3 %; Lymphocytes # (A) 1.47 X 10*3/uL (0.90-5.00); Lymphocytes % (A) 19.1 %; MCH 28.4 pg (27.0-32.0); MCHC 32.3 g/dL (32.0-37.0); MCV 87.8 fL (80.0-97.0); Mean Platelet Volume 8.6 fL (9.5-12.2); Monocytes # (A) 0.84 X 10*3/uL (0.20-1.00); Monocytes % (A) 10.9 %; NRBC Per 100 WBC 0 /100 WBCS (0.0-0.0); Neutrophils # (A) 4.93 X 10*3/uL (1.80-7.70); Neutrophils % (A) 64.1 %; Platelet Count 203 X 10*3/uL (140-440); RBC 4.44 X 10*6/uL (4.40-5.60); RDW 14.6 % (11.5-14.5); WBC 7.69 X 10*3/uL (4.50-10.00)
[2022-12-24 11:21] LABS: Magnesium 1.8 mg/dL (1.5-2.4)
[2022-12-24 11:43] LABS: African American GFR (CKD) 119.7 (60.0-200.0); BUN/Creat Ratio 10.78 Ratio (12.00-20.00); Blood Urea Nitrogen 6.5 mg/dL (9.0-27.0); Calcium 9.1 mg/dL (8.7-10.3); Carbon Dioxide 21.2 mmol/L (20.0-27.5); Non-African American GFR(CKD) 103.3 (60.0-200.0)
[2022-12-24 12:24] LABS: Glucose,Whole Blood 143 mg/dL (70-110)
--- NOTE | 2022-12-24 14:44 | P.PN ---
Subjective Progress Note Date: 12/24/22 Principal diagnosis: C. diff colitis Patient is a 67-year-old male with a past medical his significant for diabetes mellitus osteoarthritis SD CVA TIA and asthma history of back surgery and chronic back pain patient presented to the hospital for evaluation of diarrhea, diagnosed with C. diff colitis. On today's evaluation that is 12/24/2022, the patient remains to be afebrile, the patient is breathing comfortably on room air, the patient denies having any chest pain or shortness of breath or cough, the patient denies nausea vomiting and diarrhea has significantly decreased Objective - Vital Signs Vital signs: Vital Signs Temp 97.9 F 12/24/22 08:30 Pulse 82 12/24/22 11:39 Resp 18 12/24/22 08:45 BP 142/77 12/24/22 08:30 Pulse Ox 97 12/24/22 08:30 FiO2 Intake & Output 12/23/22 12/24/22 12/24/22 18:59 06:59 18:59 Intake Total 1140 Output Total 600 450 Balance -600 690 Weight 81.647 kg Intake: Intake, IV Titration 900 Amount Sodium Chloride 0.9% 1, 900 000 ml @ 75 mls/hr IV . [id number] [facility] Rx#:[id number] Oral 240 Output: Urine 600 450 Other: Voiding Method Diaper Diaper Diaper Incontinent Incontinent Incontinent External Catheter External Catheter External Catheter # Bowel Movements 0 - Exam GENERAL DESCRIPTION: An elderly male lying in bed in no distress RESPIRATORY SYSTEM: Unlabored breathing , decreased breath sounds at bases HEART: S1 S2 regular rate and rhythm , ABDOMEN: Soft , no tenderness EXTREMITIES: No edema feet - Labs CBC & Chem 7: 12/24/22 07:29 12/24/22 07:29 Labs: Abnormal Lab Results - Last 24 Hours (Table) 12/23/22 12/23/22 12/24/22 Range/Units 17:19 20:04 07:29 Hgb 12.6 L (13.0-17.0) g/dL Hct 39.0 L (39.6-50.0) % RDW 14.6 H (11.5-14.5) % MPV 8.6 L (9.5-12.2) fL Eosinophils # 0.37 H (0.04-0.35) X 10*3/uL Anion Gap (10.00-18.00) mmol/L BUN (9.0-27.0) mg/dL BUN/Creatinine Ratio (12.00-20.00) Ratio Glucose (70-110) mg/dL POC Glucose (mg/dL) 173 H 135 H (70-110) mg/dL 12/24/22 12/24/22 12/24/22 Range/Units 07:29 08:25 12:23 Hgb (13.0-17.0) g/dL Hct (39.6-50.0) % RDW (11.5-14.5) % MPV (9.5-12.2) fL Eosinophils # (0.04-0.35) X 10*3/uL Anion Gap 9.00 L (10.00-18.00) mmol/L BUN 6.5 L (9.0-27.0) mg/dL BUN/Creatinine Ratio 10.78 L (12.00-20.00) Ratio Glucose 121 H (70-110) mg/dL POC Glucose (mg/dL) 119 H 143 H (70-110) mg/dL Assessment and Plan (1) C. difficile diarrhea Current Visit: Yes Status: Acute Code(s): A04.72 - ENTEROCOLITIS D/T CLOSTRIDIUM DIFFICILE, NOT SPCF RECUR SNOMED Code(s): 2078652120410 Plan: 1patient presented to hospital with diarrhea of 1 day duration in this patient who did have multiple episodes also some crampy abdominal pain and mild tenderness on examination secondary to acute C. difficile colitis possible his first episode as per history however overall the patient elevated good historian. 2patient has shown clinical improvement and will continue with the vancomycin 250 mg p.o. every 6 hours 10 days to finish his course of therapy along with Questran as needed Family the bedside they were updated about his condition Time with Patient: Less than 30
[2022-12-24 17:20] LABS: Glucose,Whole Blood 125 mg/dL (70-110)
[2022-12-24 20:04] LABS: Glucose,Whole Blood 119 mg/dL (70-110)
[2022-12-24] MEDS: ATORVASTATIN 40 MG TAB PO SCH (20:14)
[2022-12-24] MEDS: diazePAM 5 MG TAB PO SCH (20:14)
[2022-12-24] MEDS: traZODone HCL 100 MG TAB PO SCH (20:14)
--- NOTE | 2022-12-25 01:51 | P.PN ---
Subjective Progress Note Date: 12/24/22 This is a 67-year-old male who was recently admitted with acute Clostridium difficile colitis with some confusion. Patient being monitored closely with infectious disease following and is also maintained on Questran and having some improvements in bowel movements. Patient will continue on oral Vanco for a ten- day course. Patient also continues with significant weakness and planning for ECF with case management following working on accepting ECF. Patient is afebrile and tolerating oral intake with no reports of nausea vomiting noted. Patient denies chest pain or shortness of breath. Recommend PT/OT therapy daily. Potassium slightly low at 3.4 and will replace per protocol and recommend daily supplementation 12/23/2022 Patient is seen and evaluated in follow-up today reports his diarrhea is improving and having more formed stools. Patient is tolerating diet with no reports of nausea or vomiting noted. Patient continues with significant weakness with social work following working on possible ECF. Currently there are no accepting facilities and social work working with family as there are some social dynamics as well with significant barriers to safe discharge planning. Patient is currently afebrile and maintained on oral Vanco with infectious disease following for C. diff. No reports of shortness of breath or chest pain noted. 12/24/2022 Patient is seen and evaluated in follow-up today with no acute overnight issues noted. Patient is maintained on vancomycin and will continue with approximately one more week of treatment with anxiety following closely. Patient continues with significant weakness and would recommend PT therapy daily. Patient has significant social barriers and unsafe discharge planning currently with social work following working on possible ECF. As of now there are no accepting facilities at this time and will need to arrange for possible home with home care and will need to discuss further on discharge planning with family. Encouraged oral intake and recommend aspiration cautions with head of the bed elevated 30-45 at all times. Patient is currently afebrile a.m. labs are pending at this time. Review of systems: Constitutional: No reports of fatigue, fever, or chills Cardiovascular: No reports of chest pain or palpitations Respiratory: No reports of shortness of breath or cough GI: no reports of nausea, no reports of vomiting, reports more formed stool : No reports of dysuria or retention Neurovascular: reports of generalized weakness All medications have been reviewed Active Medications Albuterol Sulfate (Albuterol Nebulized 2.5 Mg/3 Ml) 2.5 mg INHALATION RT-TID [facility] Last Admin: 12/24/22 19:49 Dose: 2.5 mg Albuterol Sulfate (Albuterol Nebulized 2.5 Mg/3 Ml) 2.5 mg INHALATION RT-Q2H PRN PRN Reason: Shortness Of Breath Or Wheezing Aspirin (Aspirin 81 Mg) 81 mg PO DAILY [facility] Last Admin: 12/24/22 08:50 Dose: 81 mg Atorvastatin Calcium (Atorvastatin 40 Mg Tab) 40 mg PO HS [facility] Last Admin: 12/24/22 20:14 Dose: 40 mg Budesonide/Formoterol Fumarate (Symbicort 80-4.5 Mcg Inhaler) 2 puff INHALATION RT-BID [facility] Last Admin: 12/24/22 19:52 Dose: 2 puff Cholestyramine Resin (Cholestyramine (With Sugar) 4 Gm Packet) 4 gm PO TID BETWEEN MEALS [facility] Last Admin: 12/24/22 17:13 Dose: 4 gm Clopidogrel Bisulfate (Clopidogrel 75 Mg Tab) 75 mg PO DAILY [facility] Last Admin: 12/24/22 08:50 Dose: 75 mg Dextrose/Water (Dextrose 50% Syringe 50 Ml) 25 ml IVP PER PROTOCOL PRN; Protocol PRN Reason: Hypoglycemia Dextrose/Water (Dextrose 50% Syringe 50 Ml) 50 ml IVP PER PROTOCOL PRN; Protocol PRN Reason: Hypoglycemia Last Admin: 12/21/22 12:27 Dose: 50 ml Diazepam (Diazepam 5 Mg Tab) 5 mg PO HS [facility] Last Admin: 12/24/22 20:14 Dose: 5 mg Fenofibrate (Fenofibrate 54 Mg Tab) 54 mg PO DAILY [facility] Last Admin: 12/24/22 08:50 Dose: 54 mg Glipizide (Glipizide 5 Mg Tab) 5 mg PO DAILY [facility] Last Admin: 12/24/22 08:49 Dose: 5 mg Sodium Chloride (Saline 0.9%) 1,000 mls @ 75 mls/hr IV .[id number] [facility] Last Admin: 12/24/22 04:10 Dose: 75 mls/hr Insulin Aspart (Insulin Aspart (Novolog) 100 Unit/Ml Vial) 0 unit SQ ACHS [facility]; Protocol Last Admin: 12/24/22 20:14 Dose: Not Given Insulin Detemir (Insulin Detemir (Levemir) 100 Unit/Ml Syr) 20 unit SQ BID [facility] Last Admin: 12/24/22 20:14 Dose: Not Given Naloxone HCl (Naloxone 0.4 Mg/Ml 1 Ml Vial) 0.2 mg IV Q2M PRN PRN Reason: Opioid Reversal Potassium Chloride (Potassium Chloride Er 20 Meq Tab.Er) 20 meq PO DAILY [facility] Last Admin: 12/24/22 08:49 Dose: 20 meq Trazodone HCl (Trazodone Hcl 100 Mg Tab) 100 mg PO HS [facility] Last Admin: 12/24/22 20:14 Dose: 100 mg Vancomycin HCl (Vancomycin Oral Solution 250 Mg/5 Ml Bottle) 250 mg PO QID [facility]; Protocol Last Admin: 12/24/22 22:17 Dose: 250 mg PHYSICAL EXAMINATION: GENERAL: The patient is alert and oriented x4, Well developed, well nourished. Elderly-appearing HEENT: Pupils are round and equally reacting to light. EOMI. no scleral icterus. No conjunctival pallor. Normocephalic, atraumatic. No pharyngeal erythema. No thyromegaly. CARDIOVASCULAR: S1 and S2 muffled PULMONARY: diminished breath sounds bilaterally with no wheezing or rhonchi noted. ABDOMEN: soft. Nontender on exam. non-distended, normoactive bowel sounds. No palpable organomegaly. MUSCULOSKELETAL: No joint swelling or deformity. EXTREMITIES: No cyanosis, clubbing, or pedal edema. NEUROLOGICAL: Gross neurological examination did not reveal any focal deficits. Diffuse weakness SKIN: No rashes. Stage II bilateral pressure ulcers on the buttock Assessment: Acute Clostridium difficile colitis with diarrhea Dehydration Hypokalemia diabetes mellitus, type II Asthma, not an exacerbation generalized diffuse weakness History of CVA/TIA Bilateral buttock pressure ulcer stage II GI prophylaxis DVT prophylaxis Full code Plan: Recommend to continue with current medications and management with infectious disease following. Patient is maintained on oral Vanco along with Questran and having some improvement in diarrhea reporting his stools more formed. Patient is tolerating diet on dysphagia diet and speech recommends nectar thickened although patient does not like the consistency and has not been using. Highly encouraged aspiration cautions with head of the bed elevated 30-45 at all times. Encourage oral intake and will continue to monitor Accu-Cheks before meals and at bedtime and continue current regimen Patient with significant weakness would recommend PT/OT therapy daily and case management is following working on accepting ECF for continued strength and mobility Recommend continue with local wound care and offloading to the buttock area with frequent position changes every 2 hours Due to multiple complex medical issues, prognosis is guarded Apparently patient's is his power of corporate associate attorney although patient does have a girlfriend that he was currently living with and has been reported that is not very compliant with helping him with medications and getting to appointments or diet control and diabetes management hence there is no safe discharge plan at this time as there is also no accepting ECF at this time. Will discuss further with family along with case management/social work about a safe discharge plan with possible discharge on Monday. The impression and plan of care has been dictated by Blessing Garg, nurse practitioner as directed. Dr. Andrew MD I have performed a history and examination and MDM of this patient, discussed the same with the dictator, and agree with the dictator's assessment and plan as written ,documented as a scribe. Based on total visit time, I have performed more than 50% of the visit. Any additional findings or plans will be noted. Objective - Vital Signs Vital signs: Vital Signs Temp 97.7 F 12/24/22 02:00 Pulse 90 12/24/22 02:00 Resp 16 12/24/22 02:00 BP 146/80 12/24/22 02:00 Pulse Ox 97 12/24/22 02:00 FiO2 Intake & Output 12/23/22 12/24/22 12/24/22 18:59 06:59 18:59 Intake Total 1140 Output Total 600 450 Balance -600 690 Weight 81.647 kg Intake: Intake, IV Titration 900 Amount Sodium Chloride 0.9% 1, 900 000 ml @ 75 mls/hr IV . [id number] [facility] Rx#:[id number] Oral 240 Output: Urine 600 450 Other: Voiding Method Diaper Diaper Incontinent Incontinent External Catheter External Catheter # Bowel Movements 0 - Labs CBC & Chem 7: 12/24/22 07:29 12/24/22 07:29 Labs: Abnormal Lab Results - Last 24 Hours (Table) 12/23/22 12/23/22 12/23/22 Range/Units 11:39 17:19 20:04 POC Glucose (mg/dL) 123 H 173 H 135 H (70-110) mg/dL
[2022-12-25] MEDS: SODIUM CHLORIDE 0.9% 1,000 ML IV SCH ×2 (04:00→15:10)
[2022-12-25 07:23] LABS: Glucose,Whole Blood 123 mg/dL (70-110)
[2022-12-25] MEDS: INSULIN ASPART (NovoLOG) 100 UNIT/ML VIAL SQ SCH ×4 (07:35→21:27)
[2022-12-25] MEDS: ALBUTEROL NEBULIZED 2.5 MG/3 ML INHALATION SCH ×3 (09:07→18:52)
[2022-12-25] MEDS: SYMBICORT 80-4.5 MCG INHALER INHALATION SCH ×2 (09:07→18:52)
[2022-12-25] MEDS: VANCOMYCIN ORAL SOLUTION 250 MG/5 ML BOTTLE PO SCH ×4 (10:02→21:30)
[2022-12-25] MEDS: CHOLESTYRAMINE (WITH SUGAR) 4 GM PACKET PO SCH ×3 (10:02→18:34)
[2022-12-25] MEDS: POTASSIUM CHLORIDE ER 20 MEQ TAB.ER PO SCH (10:03)
[2022-12-25] MEDS: FENOFIBRATE 54 MG TAB PO SCH (10:03)
[2022-12-25] MEDS: INSULIN DETEMIR (LEVEMIR) 100 UNIT/ML SYR SQ SCH ×2 (10:03→21:30)
[2022-12-25] MEDS: CLOPIDOGREL 75 MG TAB PO SCH (10:03)
[2022-12-25] MEDS: ASPIRIN 81 MG PO SCH (10:03)
[2022-12-25] MEDS: glipiZIDE 5 MG TAB PO SCH (10:03)
[2022-12-25 11:13] LABS: Glucose,Whole Blood 148 mg/dL (70-110)
--- NOTE | 2022-12-25 12:32 | P.PN ---
Subjective Progress Note Date: 12/25/22 This is a 67-year-old male who was recently admitted with acute Clostridium difficile colitis with some confusion. Patient being monitored closely with infectious disease following and is also maintained on Questran and having some improvements in bowel movements. Patient will continue on oral Vanco for a ten- day course. Patient also continues with significant weakness and planning for ECF with case management following working on accepting ECF. Patient is afebrile and tolerating oral intake with no reports of nausea vomiting noted. Patient denies chest pain or shortness of breath. Recommend PT/OT therapy daily. Potassium slightly low at 3.4 and will replace per protocol and recommend daily supplementation 12/23/2022 Patient is seen and evaluated in follow-up today reports his diarrhea is improving and having more formed stools. Patient is tolerating diet with no reports of nausea or vomiting noted. Patient continues with significant weakness with social work following working on possible ECF. Currently there are no accepting facilities and social work working with family as there are some social dynamics as well with significant barriers to safe discharge planning. Patient is currently afebrile and maintained on oral Vanco with infectious disease following for C. diff. No reports of shortness of breath or chest pain noted. 12/24/2022 Patient is seen and evaluated in follow-up today with no acute overnight issues noted. Patient is maintained on vancomycin and will continue with approximately one more week of treatment with anxiety following closely. Patient continues with significant weakness and would recommend PT therapy daily. Patient has significant social barriers and unsafe discharge planning currently with social work following working on possible ECF. As of now there are no accepting facilities at this time and will need to arrange for possible home with home care and will need to discuss further on discharge planning with family. Encouraged oral intake and recommend aspiration cautions with head of the bed elevated 30-45 at all times. Patient is currently afebrile a.m. labs are pending at this time. 12/25/2022 Patient is seen and evaluated in follow-up this morning currently sleeping although easily arousable. Patient reports improvement in his diarrhea and has been having formed stools. Patient is continued on vancomycin and will continue for 5-7 more days per ID recommendations. Patient with significant weakness working on possible ECF for possible safe discharge planning as he currently does not have one. Will discuss further with case management and family members in the a.m. about discharge planning and will likely be discharging home and having home care arranged in the outpatient setting. Patient is currently afebrile with no reports of chest pain or shortness of breath noted. Review of systems: Constitutional: No reports of fatigue, fever, or chills Cardiovascular: No reports of chest pain or palpitations Respiratory: No reports of shortness of breath or cough GI: no reports of nausea, no reports of vomiting, reports more formed stool : No reports of dysuria or retention Neurovascular: reports of generalized weakness All medications have been reviewed Active Medications Albuterol Sulfate (Albuterol Nebulized 2.5 Mg/3 Ml) 2.5 mg INHALATION RT-TID [facility] Last Admin: 12/25/22 12:28 Dose: 2.5 mg Albuterol Sulfate (Albuterol Nebulized 2.5 Mg/3 Ml) 2.5 mg INHALATION RT-Q2H PRN PRN Reason: Shortness Of Breath Or Wheezing Aspirin (Aspirin 81 Mg) 81 mg PO DAILY [facility] Last Admin: 12/25/22 10:03 Dose: 81 mg Atorvastatin Calcium (Atorvastatin 40 Mg Tab) 40 mg PO [facility] Last Admin: 12/24/22 20:14 Dose: 40 mg Budesonide/Formoterol Fumarate (Symbicort 80-4.5 Mcg Inhaler) 2 puff INHALATION RT-BID [facility] Last Admin: 12/25/22 09:07 Dose: 2 puff Cholestyramine Resin (Cholestyramine (With Sugar) 4 Gm Packet) 4 gm PO TID BETWEEN MEALS [facility] Last Admin: 12/25/22 10:02 Dose: 4 gm Clopidogrel Bisulfate (Clopidogrel 75 Mg Tab) 75 mg PO DAILY [facility] Last Admin: 12/25/22 10:03 Dose: 75 mg Dextrose/Water (Dextrose 50% Syringe 50 Ml) 25 ml IVP PER PROTOCOL PRN; Protocol PRN Reason: Hypoglycemia Dextrose/Water (Dextrose 50% Syringe 50 Ml) 50 ml IVP PER PROTOCOL PRN; Protocol PRN Reason: Hypoglycemia Last Admin: 12/21/22 12:27 Dose: 50 ml Diazepam (Diazepam 5 Mg Tab) 5 mg PO [facility] Last Admin: 12/24/22 20:14 Dose: 5 mg Fenofibrate (Fenofibrate 54 Mg Tab) 54 mg PO DAILY [facility] Last Admin: 12/25/22 10:03 Dose: 54 mg Glipizide (Glipizide 5 Mg Tab) 5 mg PO DAILY [facility] Last Admin: 12/25/22 10:03 Dose: 5 mg Sodium Chloride (Saline 0.9%) 1,000 mls @ 75 mls/hr IV .[id number] [facility] Last Admin: 12/25/22 04:00 Dose: 75 mls/hr Insulin Aspart (Insulin Aspart (Novolog) 100 Unit/Ml Vial) 0 unit SQ ACHS [facility]; Protocol Last Admin: 12/25/22 11:39 Dose: Not Given Insulin Detemir (Insulin Detemir (Levemir) 100 Unit/Ml Syr) 20 unit SQ BID [facility] Last Admin: 12/25/22 10:03 Dose: 20 unit Naloxone HCl (Naloxone 0.4 Mg/Ml 1 Ml Vial) 0.2 mg IV Q2M PRN PRN Reason: Opioid Reversal Potassium Chloride (Potassium Chloride Er 20 Meq Tab.Er) 20 meq PO DAILY [facility] Last Admin: 12/25/22 10:03 Dose: 20 meq Trazodone HCl (Trazodone Hcl 100 Mg Tab) 100 mg PO HS [facility] Last Admin: 12/24/22 20:14 Dose: 100 mg Vancomycin HCl (Vancomycin Oral Solution 250 Mg/5 Ml Bottle) 250 mg PO QID [facility]; Protocol Last Admin: 12/25/22 10:02 Dose: 250 mg PHYSICAL EXAMINATION: GENERAL: The patient is alert and oriented x4, Well developed, well nourished. Elderly-appearing HEENT: Pupils are round and equally reacting to light. EOMI. no scleral icterus. No conjunctival pallor. Normocephalic, atraumatic. No pharyngeal erythema. No thyromegaly. CARDIOVASCULAR: S1 and S2 muffled PULMONARY: diminished breath sounds bilaterally with no wheezing or rhonchi noted. ABDOMEN: soft. Nontender on exam. non-distended, normoactive bowel sounds. No palpable organomegaly. MUSCULOSKELETAL: No joint swelling or deformity. EXTREMITIES: No cyanosis, clubbing, or pedal edema. NEUROLOGICAL: Gross neurological examination did not reveal any focal deficits. Diffuse weakness SKIN: No rashes. Stage II bilateral pressure ulcers on the buttock Assessment: Acute Clostridium difficile colitis with diarrhea Dehydration Hypokalemia, improved diabetes mellitus, type II Asthma, not an exacerbation generalized diffuse weakness History of CVA/TIA Bilateral buttock pressure ulcer stage II GI prophylaxis DVT prophylaxis Full code Plan: Recommend to continue with current medications and management with infectious disease following. Patient is maintained on oral Vanco along with Questran and having some improvement in diarrhea reporting his stools more formed. Patient is tolerating diet on dysphagia diet and speech recommends nectar thickened alt barb patient does not like the consistency and has not been using. Highly encouraged aspiration cautions with head of the bed elevated 30-45 at all times. Encourage oral intake and will continue to monitor Accu-Cheks before meals and at bedtime and continue current regimen Patient with significant weakness would recommend PT/OT therapy daily and case management is following working on accepting ECF for continued strength and mobility. Apparently there are no accepting facilities and will plan for home care with family after discussion with them in case management in the a.m. Recommend to continue with local wound care and offloading to the buttock area with frequent position changes every 2 hours Due to multiple complex medical issues, prognosis is guarded Patient will likely discharge home in 24 hours The impression and plan of care has been dictated by Blessing Garg, nurse practitioner as directed. Dr. Fabiano MD I have performed a history and examination and MDM of this patient, discussed the same with the dictator, and agree with the dictator's assessment and plan as written ,documented as a scribe. Based on total visit time, I have performed more than 50% of the visit. Any additional findings or plans will be noted. Objective - Vital Signs Vital signs: Vital Signs Temp 98.3 F 12/25/22 07:25 Pulse 84 12/25/22 09:16 Resp 18 12/25/22 08:40 BP 155/90 12/25/22 07:25 Pulse Ox 99 12/25/22 07:25 FiO2 Intake & Output 12/24/22 12/25/22 12/25/22 18:59 06:59 18:59 Intake Total 240 1080 Output Total 1500 800 500 Balance -1260 280 -500 Intake: Intake, IV Titration 900 Amount Sodium Chloride 0.9% 1, 900 000 ml @ 75 mls/hr IV . [id number] [facility] Rx#:[id number] Oral 240 180 Output: Urine 1500 800 500 Other: Voiding Method Diaper Diaper Diaper Incontinent Incontinent Incontinent External Catheter External Catheter External Catheter # Voids 1 # Bowel Movements 1 - Labs CBC & Chem 7: 12/24/22 07:29 12/24/22 07:29 Labs: Abnormal Lab Results - Last 24 Hours (Table) 12/24/22 12/24/22 12/25/22 Range/Units 17:18 20:02 07:22 POC Glucose (mg/dL) 125 H 119 H 123 H (70-110) mg/dL 12/25/22 Range/Units 11:12 POC Glucose (mg/dL) 148 H (70-110) mg/dL
[2022-12-25 17:05] LABS: Glucose,Whole Blood 92 mg/dL (70-110)
[2022-12-25 20:49] LABS: Glucose,Whole Blood 138 mg/dL (70-110)
[2022-12-25] MEDS: diazePAM 5 MG TAB PO SCH (21:30)
[2022-12-25] MEDS: traZODone HCL 100 MG TAB PO SCH (21:30)
[2022-12-25] MEDS: ATORVASTATIN 40 MG TAB PO SCH (21:30)
[2022-12-26] MEDS: SODIUM CHLORIDE 0.9% 1,000 ML IV SCH (05:20)
[2022-12-26 07:22] LABS: Glucose,Whole Blood 86 mg/dL (70-110)
[2022-12-26] MEDS: INSULIN ASPART (NovoLOG) 100 UNIT/ML VIAL SQ SCH ×2 (08:33→12:23)
[2022-12-26] MEDS: VANCOMYCIN ORAL SOLUTION 250 MG/5 ML BOTTLE PO SCH ×2 (08:36→14:19)
[2022-12-26] MEDS: CLOPIDOGREL 75 MG TAB PO SCH (08:36)
[2022-12-26] MEDS: FENOFIBRATE 54 MG TAB PO SCH (08:36)
[2022-12-26] MEDS: INSULIN DETEMIR (LEVEMIR) 100 UNIT/ML SYR SQ SCH (08:36)
[2022-12-26] MEDS: glipiZIDE 5 MG TAB PO SCH (08:36)
[2022-12-26] MEDS: POTASSIUM CHLORIDE ER 20 MEQ TAB.ER PO SCH (08:36)
[2022-12-26] MEDS: ASPIRIN 81 MG PO SCH (08:36)
[2022-12-26] MEDS: CHOLESTYRAMINE (WITH SUGAR) 4 GM PACKET PO SCH ×2 (08:36→16:05)
[2022-12-26] MEDS: SYMBICORT 80-4.5 MCG INHALER INHALATION SCH (08:40)
[2022-12-26] MEDS: ALBUTEROL NEBULIZED 2.5 MG/3 ML INHALATION SCH ×2 (08:40→12:54)
[2022-12-26 12:19] LABS: Glucose,Whole Blood 57 mg/dL (70-110)
[2022-12-26 12:23] VITALS: BP 166/100; RESP 20; TEMP 97.1
[2022-12-26 12:43] LABS: Glucose,Whole Blood 62 mg/dL (70-110)
[2022-12-26 12:58] VITALS: PULSE 88
[2022-12-26 13:36] LABS: Glucose,Whole Blood 97 mg/dL (70-110)
--- NOTE | 2022-12-26 22:50 | P.PN ---
Subjective Progress Note Date: 12/25/22 Principal diagnosis: C. diff colitis Patient is a 67-year-old male with a past medical his significant for diabetes mellitus osteoarthritis [place] CVA TIA and asthma history of back surgery and chronic back pain patient presented to the hospital for evaluation of diarrhea, diagnosed with C. diff colitis. On today's evaluation that is 12/25/2022, the patient continues to be afebrile, the patient is breathing comfortably on room air, the patient denies having any chest pain or shortness of breath or cough, the patient denies nausea vomiting and diarrhea has significantly decreased in frequency and consistency Objective - Vital Signs Vital signs: Vital Signs Temp 97.9 F 12/25/22 12:29 Pulse 80 12/25/22 12:38 Resp 17 12/25/22 12:29 BP 157/81 12/25/22 12:29 Pulse Ox 97 12/25/22 12:29 FiO2 Intake & Output 12/24/22 12/25/22 12/25/22 18:59 06:59 18:59 Intake Total 240 1080 Output Total 1500 800 500 Balance -1260 280 -500 Intake: Intake, IV Titration 900 Amount Sodium Chloride 0.9% 1, 900 000 ml @ 75 mls/hr IV . [id number] [facility] Rx#:[id number] Oral 240 180 Output: Urine 1500 800 500 Other: Voiding Method Diaper Diaper Diaper Incontinent Incontinent Incontinent External Catheter External Catheter External Catheter # Voids 1 # Bowel Movements 1 - Exam GENERAL DESCRIPTION: An elderly male lying in bed in no distress RESPIRATORY SYSTEM: Unlabored breathing , decreased breath sounds at bases HEART: S1 S2 regular rate and rhythm , ABDOMEN: Soft , no tenderness EXTREMITIES: No edema feet - Labs CBC & Chem 7: 12/24/22 07:29 12/24/22 07:29 Labs: Abnormal Lab Results - Last 24 Hours (Table) 12/24/22 12/24/22 12/25/22 Range/Units 17:18 20:02 07:22 POC Glucose (mg/dL) 125 H 119 H 123 H (70-110) mg/dL 12/25/22 Range/Units 11:12 POC Glucose (mg/dL) 148 H (70-110) mg/dL Assessment and Plan (1) C. difficile diarrhea Status: Acute Code(s): A04.72 - ENTEROCOLITIS D/T CLOSTRIDIUM DIFFICILE, NOT SPCF RECUR SNOMED Code(s): 3749878943236 Plan: 1patient presented to hospital with diarrhea of 1 day duration in this patient who did have multiple episodes also some crampy abdominal pain and mild ten derness on examination secondary to acute C. difficile colitis possible his first episode as per history however overall the patient elevated good historian. 2patient has shown clinical improvement and will continue with the vancomycin 250 mg p.o. every 6 hours and monitor his course closely Time with Patient: Less than 30
--- NOTE | 2022-12-26 22:51 | P.PN ---
Subjective Progress Note Date: 12/26/22 Principal diagnosis: C. diff colitis Patient is a 67-year-old male with a past medical his significant for diabetes mellitus osteoarthritis [place] CVA TIA and asthma history of back surgery and chronic back pain patient presented to the hospital for evaluation of diarrhea, diagnosed with C. diff colitis. On today's evaluation that is 12/26/2022, the patient remains to be afebrile, the patient is breathing comfortably on room air, the patient denies having any chest pain or shortness of breath or cough, the patient denies nausea vomiting and diarrhea has resolved per Patient Objective - Vital Signs Vital signs: Vital Signs Temp 97.1 F L 12/26/22 12:21 Pulse 78 12/26/22 12:21 Resp 20 12/26/22 12:21 BP 166/100 12/26/22 12:21 Pulse Ox 98 12/26/22 12:21 FiO2 Intake & Output 12/25/22 12/26/22 12/26/22 18:59 06:59 18:59 Intake Total 900 Output Total 1000 1350 Balance -1000 -450 Intake: Intake, IV Titration 900 Amount Sodium Chloride 0.9% 1, 900 000 ml @ 75 mls/hr IV . [id number] [facility] Rx#:[id number] Output: Urine 1000 1350 Other: Voiding Method Diaper Diaper Diaper Incontinent Incontinent Incontinent External Catheter External Catheter External Catheter # Voids 1 # Bowel Movements 1 - Exam GENERAL DESCRIPTION: An elderly male lying in bed in no distress RESPIRATORY SYSTEM: Unlabored breathing , decreased breath sounds at bases HEART: S1 S2 regular rate and rhythm , ABDOMEN: Soft , no tenderness EXTREMITIES: No edema feet - Labs CBC & Chem 7: 12/24/22 07:29 12/24/22 07:29 Labs: Abnormal Lab Results - Last 24 Hours (Table) 12/25/22 12/26/22 12/26/22 Range/Units 20:47 12:15 12:41 POC Glucose (mg/dL) 138 H 57 L 62 L (70-110) mg/dL Assessment and Plan (1) C. difficile diarrhea Status: Acute Code(s): A04.72 - ENTEROCOLITIS D/T CLOSTRIDIUM DIFFICILE, NOT SPCF RECUR SNOMED Code(s): 1942574505788 Plan: 1patient presented to hospital with diarrhea of 1 day duration in this patient who did have multiple episodes also some crampy abdominal pain and mild tenderness on examination secondary to acute C. difficile colitis possible his first episode as per history however overall the patient elevated good historian. 2patient has shown clinical improvement and will continue with the vancomycin 250 mg p.o. every 6 hours to finish a ten-day course of therapy patient has been encouraged to increase his yogurt and probiotics intake to decrease recurrence of C. diff colitis Time with Patient: Less than 30
== END 2022-12-26 16:34 | disposition home or self-care (01) | DRG 373 ==
LOC: EC 18:27 → 4SSUR 22:57 → 5NMEDONC 12-19 07:08
PROVIDERS: ADMIT Internal Medicine; ATTEND Internal Medicine
DX: A04.72 Enterocolitis due to Clostridium difficile, not specified as recurrent (principal); E11.40 Type 2 diabetes mellitus with diabetic neuropathy, unspecified; E86.0 Dehydration; L89.322 Pressure ulcer of left buttock, stage 2; L89.312 Pressure ulcer of right buttock, stage 2; E87.6 Hypokalemia; J45.909 Unspecified asthma, uncomplicated; F41.9 Anxiety disorder, unspecified; L30.9 Dermatitis, unspecified; Z28.310 Unvaccinated for COVID-19; I25.10 Atherosclerotic heart disease of native coronary artery without angina pectoris; I25.2 Old myocardial infarction; M19.90 Unspecified osteoarthritis, unspecified site; Z79.82 Long term (current) use of aspirin; Z79.84 Long term (current) use of oral hypoglycemic drugs; Z79.02 Long term (current) use of antithrombotics/antiplatelets; Z79.899 Other long term (current) drug therapy; Z86.73 Personal history of transient ischemic attack (TIA), and cerebral infarction without residual deficits; Z98.1 Arthrodesis status; Z88.0 Allergy status to penicillin; Z95.5 Presence of coronary angioplasty implant and graft
CPT/HCPCS: 71045; 74018; 74230; 80048; 80053; 81001; 83036; 83605; 83735; 85025; 87324; 94640

== ENCOUNTER 2023-01-09 21:32 | Inpatient (IN) | payer MEDICARE ==
[2023-01-09] MEDS ORDERED: SODIUM CHLORIDE 0.9% 1,000 ML IV ONE (21:53)
--- NOTE | 2023-01-09 22:25 | ED ---
General Adult HPI - General Chief complaint: ENT Stated complaint: Failure to thrive Time Seen by Provider: 01/09/23 21:38 Source: patient, EMS, RN notes reviewed, old records reviewed Mode of arrival: EMS Limitations: physical limitation - History of Present Illness Initial comments: 59-year-old male presents for evaluation of difficulty swallowing, failure to thrive. Patient had previous history of tracheostomy and PEG tube. 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 He also has generalized weakness affecting the left side of his body. He is bedbound. He is able to give history. Apparently he had difficulty swallowing his medications this morning and had a choking episode. No dyspnea. No chest pain. No fever. - Related Data Home Medications Medication Instructions Recorded Confirmed Atorvastatin [Lipitor] 40 mg PO HS 08/13/22 01/09/23 Clopidogrel [Plavix] 75 mg PO DAILY 10/01/22 01/09/23 Insulin Glargine,Hum.rec.anlog 20 units SQ BID 10/01/22 01/09/23 [Lantus Solostar Pen] Losartan [Cozaar] 25 mg PO DAILY 10/01/22 01/09/23 hydrALAZINE HCL [Apresoline] 50 mg PO TID 10/01/22 01/09/23 Albuterol Nebulized [Ventolin 2.5 mg INHALATION RT-Q6H PRN 12/09/22 01/09/23 Nebulized] Insulin Aspart [NovoLOG Flexpen] See Protocol SQ ACHS 12/09/22 01/09/23 Multivitamins, Thera [Multivitamin 1 tab PO DAILY 12/09/22 01/09/23 (formulary)] diazePAM [Valium] 5 mg PO HS 12/09/22 01/09/23 glipiZIDE [Glucotrol] 5 mg PO DAILY 12/09/22 01/09/23 traZODone HCL [Desyrel] 100 mg PO HS 12/09/22 01/09/23 Fenofibrate 54 mg PO DAILY 12/18/22 01/09/23 Albuterol Sulfate [Ventolin HFA] 1 - 2 puff INHALATION RT-Q6H PRN 01/09/23 01/09/23 DULoxetine HCL [Cymbalta] 60 mg PO DAILY 01/09/23 01/09/23 Fluticasone Propion/Salmeterol 1 puff INHALATION RT-BID 01/09/23 01/09/23 [Wixela 500-50 Inhub] Metoprolol Tartrate [Lopressor] 50 mg PO BID 01/09/23 01/09/23 amLODIPine [Norvasc] 10 mg PO DAILY 01/09/23 01/09/23 Previous Rx's Medication Instructions Recorded Aspirin 81 mg PO DAILY tab 08/30/22 Allergies Allergy/AdvReac Type Severity Reaction Status Date / Time Penicillins Allergy Unknown Verified 01/09/23 22:30 Review of Systems ROS Statement: Those systems with pertinent positive or pertinent negative responses have been documented in the HPI. ROS Other: All systems not noted in ROS Statement are negative. Past Medical History Past Medical History: Asthma, CVA/TIA, Diabetes Mellitus, Myocardial Infarction (AK), Osteoarthritis (OA) Additional Past Medical History / Comment(s): HX OF BACK SURGERY WITH BACK PAIN, DIABETIC NEUROPATHY, HEART MURMUR., KERATOCONUS., STOOL TEST POSITIVE ., ECZEMA. Last Myocardial Infarction Date:: 08/2022 History of Any Multi-Drug Resistant Organisms: None Reported Date of last positivie culture/infection: 12/19/22 MDRO Source:: stool Past Surgical History: Back Surgery, Heart Catheterization With Stent Additional Past Surgical History / Comment(s): BACK SURGERY WITH DISC REMOVED AND FUSION., VASECTOMY, LEFT GREAT TOE. peg tube, tracheostomy. Past Anesthesia/Blood Transfusion Reactions: No Reported Reaction Date of Last Stent Placement:: 08/2022 Past Psychological History: No Psychological Hx Reported Smoking Status: Never smoker Past Alcohol Use History: None Reported Past Drug Use History: None Reported - Past Family History Mother Family Medical History: No Reported History General Exam Limitations: physical limitation General appearance: alert, in no apparent distress Head exam: Present: atraumatic, normocephalic Eye exam: Present: normal appearance, PERRL ENT exam: Present: normal exam Neck exam: Present: normal inspection. Absent: tenderness, meningismus Respiratory exam: Present: normal lung sounds bilaterally. Absent: respiratory distress, wheezes Cardiovascular Exam: Present: regular rate, normal rhythm GI/Abdominal exam: Present: soft. Absent: distended, tenderness, guarding Neurological exam: Present: alert, other (Contracture of the right upper and right lower extremity, decreased strength on the left) Skin exam: Present: warm, dry, intact Course Vital Signs 01/09/23 21:39 Temperature 98.4 F Pulse Rate 78 Respiratory 18 Rate Blood Pressure 108/63 O2 Sat by Pulse 95 Oximetry EKG Findings - EKG Comments: EKG Findings:: EKG: Sinus rhythm rate of 82, NV interval 200, QRS duration 100, QTC 419, no ST segment elevation. Medical Decision Making - Medical Decision Making Was pt. sent in by a medical professional or institution (, JENN, LEARNING COACH, urgent care, hospital, or snf...) When possible be specific @ -No Did you speak to anyone other than the patient for history (EMS, parent, family, police, friend...)? What history was obtained from this source @ -Patient's girlfriend, EMS Did you review nursing and triage notes (agree or disagree)? Why? @ -I reviewed and agree with nursing and triage notes Were old charts reviewed (outside hosp., previous admission, EMS record, old EKG, old radiological studies, urgent care reports/EKG's, snf records)? Report findings @ -No old charts were reviewed Differential Diagnosis (chest pain, altered mental status, abdominal pain women, abdominal pain men, vaginal bleeding, weakness, fever, dyspnea, syncope, headache, dizziness, GI bleed, back pain, seizure, CVA, palpatations, mental health, musculoskeletal)? @ -Differential Weakness: Hypoglycemia, shock, sepsis, hyponatremia, anemia, infection, AK, ETOH, adverse medicine reaction, overdose, stroke, this is not meant to be an all-inclusive list. EKG interpreted by me (3pts min.). @ -As above X-rays interpreted by me (1pt min.). @ -Chest x-ray showing atelectasis versus infiltrate CT interpreted by me (1pt min.). @ -None done U/S interpreted by me (1pt. min.). @ -None done What testing was considered but not performed or refused? (CT, X-rays, U/S, l abs)? Why? @ -None What meds were considered but not given or refused? Why? @ -None Did you discuss the management of the patient with other professionals (professionals i.e. , JENN, LEARNING COACH, lab, RT, psych nurse, social work manager, clay products glazer, teacher, mounted police officer, manager of case management)? Give summary @ -Case discussed with Dr. Finney who will admit Was smoking cessation discussed for >3mins.? @ -No Was critical care preformed (if so, how long)? @ -No Were there social determinants of health that impacted care today? How? (Homelessness, low income, unemployed, alcoholism, drug addiction, transportation, low edu. Level, literacy, decrease access to med. care, [facility], rehab)? @ -No Was there de-escalation of care discussed even if they declined (Discuss DNR or withdrawal of care, Hospice)? DNR status @ -No What co-morbidities impacted this encounter? (DM, HTN, Smoking, COPD, CAD, Cancer, CVA, ARF, Chemo, Hep., AIDS, mental health diagnosis, sleep apnea, morbid obesity)? @ -CVA, hypertension, hemiplegia Was patient admitted / discharged? Hospital course, mention meds given and route, prescriptions, significant lab abnormalities, going to OR and other pertinent info. @ -59-year-old male presenting for evaluation of failure to thrive, concern for possible placement. Patient has stable vitals. Chest x-ray showing atelectasis without other acute abnormality. Patient has normal CBC, normal CMP. Urinalysis is pending. I do feel this patient would benefit from admission and possible placement at this time. I'm concerned about his home situation and his ability to take medications orally. Undiagnosed new problem with uncertain prognosis? @ -No Drug Therapy requiring intensive monitoring for toxicity (Heparin, Nitro, Insulin, Cardizem)? @ -No Were any procedures done? @ -No Diagnosis/symptom? @ -Difficulty swallowing, further to thrive Acute, or Chronic, or Acute on Chronic? @ -[Acute Uncomplicated (without systemic symptoms) or Complicated (systemic symptoms)? @ -Complicated Side effects of treatment? @ -No Exacerbation, Progression, or Severe Exacerbation? @ -No Poses a threat to life or bodily function? How? (Chest pain, USA, AK, pneumonia, PE, COPD, DKA, ARF, appy, cholecystitis, CVA, Diverticulitis, Homicidal, Suicidal, threat to staff... and all critical care pts) @ -Yes, poor oral intake, dehydration, hypovolemia - Lab Data Result diagrams: 01/09/23 22:19 01/09/23 22:20 Lab Results 01/09/23 01/09/23 01/09/23 Range/Units 22:19 22:19 22:19 WBC 11.6 H (3.8-10.6) k/uL RBC 4.44 (4.30-5.90) m/uL Hgb 13.1 (13.0-17.5) gm/dL Hct 38.7 L (39.0-53.0) % MCV 87.3 (80.0-100.0) fL MCH 29.4 (25.0-35.0) pg MCHC 33.7 (31.0-37.0) g/dL RDW 15.0 (11.5-15.5) % Plt Count 302 (150-450) k/uL MPV 6.7 Neutrophils % 80 % Lymphocytes % 8 % Monocytes % 9 % Eosinophils % 0 % Basophils % 0 % Neutrophils # 9.3 H (1.3-7.7) k/uL Lymphocytes # 1.0 (1.0-4.8) k/uL Monocytes # 1.0 (0-1.0) k/uL Eosinophils # 0.0 (0-0.7) k/uL Basophils # 0.0 (0-0.2) k/uL PT 10.9 (9.0-12.0) sec INR 1.0 (<1.2) APTT 27.0 (22.0-30.0) sec Sodium (137-145) mmol/L Potassium (3.5-5.1) mmol/L Chloride (98-107) mmol/L Carbon Dioxide (22-30) mmol/L Anion Gap mmol/L BUN (9-20) mg/dL Creatinine (0.66-1.25) mg/dL Est GFR (CKD-EPI)AfAm (>60 ml/min/1.73 sqM) Est GFR (CKD-EPI)NonAf (>60 ml/min/1.73 sqM) Glucose (74-99) mg/dL Plasma Lactic Acid Eren 1.0 (0.7-2.0) mmol/L Calcium (8.4-10.2) mg/dL Magnesium (1.6-2.3) mg/dL Total Bilirubin (0.2-1.3) mg/dL AST (17-59) U/L ALT (4-49) U/L Alkaline Phosphatase (38-126) U/L Total Protein (6.3-8.2) g/dL Albumin (3.5-5.0) g/dL 01/09/23 Range/Units 22:20 WBC (3.8-10.6) k/uL RBC (4.30-5.90) m/uL Hgb (13.0-17.5) gm/dL Hct (39.0-53.0) % MCV (80.0-100.0) fL MCH (25.0-35.0) pg MCHC (31.0-37.0) g/dL RDW (11.5-15.5) % Plt Count (150-450) k/uL MPV Neutrophils % % Lymphocytes % % Monocytes % % Eosinophils % % Basophils % % Neutrophils # (1.3-7.7) k/uL Lymphocytes # (1.0-4.8) k/uL Monocytes # (0-1.0) k/uL Eosinophils # (0-0.7) k/uL Basophils # (0-0.2) k/uL PT (9.0-12.0) sec INR (<1.2) APTT (22.0-30.0) sec Sodium 139 (137-145) mmol/L Potassium 4.2 (3.5-5.1) mmol/L Chloride 105 (98-107) mmol/L Carbon Dioxide 24 (22-30) mmol/L Anion Gap 10 mmol/L BUN 21 H (9-20) mg/dL Creatinine 0.61 L (0.66-1.25) mg/dL Est GFR (CKD-EPI)AfAm >90 (>60 ml/min/1.73 sqM) Est GFR (CKD-EPI)NonAf >90 (>60 ml/min/1.73 sqM) Glucose 141 H (74-99) mg/dL Plasma Lactic Acid Eren (0.7-2.0) mmol/L Calcium 9.6 (8.4-10.2) mg/dL Magnesium 1.8 (1.6-2.3) mg/dL Total Bilirubin 1.2 (0.2-1.3) mg/dL AST 28 (17-59) U/L ALT 16 (4-49) U/L Alkaline Phosphatase 63 (38-126) U/L Total Protein 6.4 (6.3-8.2) g/dL Albumin 3.6 (3.5-5.0) g/dL Disposition Clinical Impression: Failure to thrive, Weakness Disposition: ADMITTED IP TO THIS [facility] Condition: Stable Is patient prescribed a controlled substance at d/c from ED?: No Referrals: Nonstaff,Physician [Primary Care Provider] - 1-2 days Time of Disposition: 00:30
--- NOTE | 2023-01-09 22:39 | XR ---
EXAMINATION TYPE: XR chest 1V portable DATE OF EXAM: 01/09/2023 HISTORY: Shortness of breath. COMPARISON: 12/19/22 TECHNIQUE: Single view of the chest is submitted. FINDINGS: Demonstrated are scattered senescent parenchymal change. Perihilar increased density may reflect developing infiltrate. Left basilar atelectasis or parenchyma l scar. The heart is stable. Hilar and mediastinal structures are within normal limits. Degenerative changes are seen of the dorsal spine. IMPRESSION: 1. Perihilar increased density may reflect developing infiltrate. Left basilar atelectasis or parenc hymal scar.
[2023-01-09 23:03] LABS: Basophils % (A) 0 %; Eosinophils % (A) 0 %; HCT 38.7 % (39.0-53.0); HGB 13.1 gm/dL (13.0-17.5); Lymphocytes % (A) 8 %; MCH 29.4 pg (25.0-35.0); MCHC 33.7 g/dL (31.0-37.0); MCV 87.3 fL (80.0-100.0); Mean Platelet Volume 6.7; Monocytes % (A) 9 %; Neutrophils # (A) 9.3 k/uL (1.3-7.7); Neutrophils % (A) 80 %; Platelet Count 302 k/uL (150-450); RBC 4.44 m/uL (4.30-5.90); WBC 11.6 k/uL (3.8-10.6)
[2023-01-09 23:09] LABS: Prothrombin Time 10.9 sec (9.0-12.0)
[2023-01-09] MEDS ORDERED: MORPHINE SULFATE 4 MG/ML SYRINGE IVP STA (23:26)
[2023-01-09 23:38] LABS: ALT 16 U/L (4-49); African American GFR (CKD) >90 (>60 ml/min/1.73 sqM); Anion Gap 10 mmol/L; Blood Urea Nitrogen 21 mg/dL (9-20); Calcium 9.6 mg/dL (8.4-10.2); Carbon Dioxide 24 mmol/L (22-30); Chloride 105 mmol/L (98-107); Glucose 141 mg/dL (74-99); Non-African American GFR(CKD) >90 (>60 ml/min/1.73 sqM); Sodium 139 mmol/L (137-145); Total Bilirubin 1.2 mg/dL (0.2-1.3)
[2023-01-09 23:42] LABS: AST 28 U/L (17-59); Albumin 3.6 g/dL (3.5-5.0); Magnesium 1.8 mg/dL (1.6-2.3); Potassium 4.2 mmol/L (3.5-5.1); Total Protein 6.4 g/dL (6.3-8.2)
[2023-01-09 23:43] LABS: Alkaline Phosphatase 63 U/L (38-126)
[2023-01-10] MEDS ORDERED: NALOXONE 0.4 MG/ML 1 ML VIAL IV PRN (00:25)
[2023-01-10] MEDS ORDERED: ALBUTEROL NEBULIZED 2.5 MG/3 ML INHALATION PRN (00:26)
[2023-01-10] MEDS ORDERED: DEXTROSE 50% SYRINGE 50 ML IVP PRN ×2 (00:55)
[2023-01-10 06:46] LABS: Glucose,Whole Blood 119 mg/dL (70-110)
[2023-01-10] MEDS: INSULIN ASPART (NovoLOG) 100 UNIT/ML VIAL SQ SCH ×4 (06:47→20:50)
[2023-01-10 06:52] LABS: Appearance,Urine Turbid (Clear); Bacteria,Urine Moderate /hpf; Bilirubin,Urine Negative (Negative); Blood,Urine Trace (Negative); Color,Urine Yellow; Glucose,Urine (UA) Negative (Negative); Ketones,Urine Negative (Negative); Leukocyte Esterase,Urine Large (Negative); Mucus,Urine Rare /hpf; Nitrite,Urine Positive (Negative); PH, Urine 6.5 (5.0-8.0); Protein,Urine 1+ (Negative); RBC,Urine 16 /hpf (0-5); Urobilinogen,Urine <2.0 mg/dL (<2.0); WBC,Urine >182 /hpf (0-5)
[2023-01-10] MEDS: SYMBICORT 160-4.5 MCG INHALER INHALATION SCH ×2 (08:05→20:50)
[2023-01-10 08:48] LABS: Basophils # (A) 0.04 X 10*3/uL (0.00-0.10); Basophils % (A) 0.4 %; Eosinophils # (A) 0.02 X 10*3/uL (0.04-0.35); Eosinophils % (A) 0.2 %; HGB 11.6 g/dL (13.0-17.0); Immature Grans, Automated 0.2 %; Lymphocytes % (A) 14.5 %; MCH 29.1 pg (27.0-32.0); MCHC 33.1 g/dL (32.0-37.0); MCV 87.9 fL (80.0-97.0); Mean Platelet Volume 8.7 fL (9.5-12.2); Monocytes # (A) 1.15 X 10*3/uL (0.20-1.00); Monocytes % (A) 12.8 %; NRBC Per 100 WBC 0 /100 WBCS (0.0-0.0); Neutrophils # (A) 6.44 X 10*3/uL (1.80-7.70); Neutrophils % (A) 71.9 %; Platelet Count 244 X 10*3/uL (140-440); RBC 3.98 X 10*6/uL (4.40-5.60); RDW 14.9 % (11.5-14.5); WBC 8.97 X 10*3/uL (4.50-10.00)
[2023-01-10 08:58] LABS: African American GFR (CKD) 111.6 (60.0-200.0); Anion Gap 10.1 mmol/L (10.00-18.00); BUN/Creat Ratio 29.78 Ratio (12.00-20.00); Blood Urea Nitrogen 21.2 mg/dL (9.0-27.0); Calcium 9.5 mg/dL (8.7-10.3); Carbon Dioxide 24.2 mmol/L (20.0-27.5); Non-African American GFR(CKD) 96.3 (60.0-200.0); Potassium 3.7 mmol/L (3.5-5.5)
[2023-01-10 12:04] LABS: Glucose,Whole Blood 154 mg/dL (70-110)
[2023-01-10] MEDS: INSULIN DETEMIR (LEVEMIR) 100 UNIT/ML SYR SQ SCH ×2 (12:36→20:50)
[2023-01-10] MEDS: SODIUM CHLORIDE 0.9% 1,000 ML IV SCH (13:10)
[2023-01-10] MEDS: METOPROLOL TARTRATE 50 MG TAB PO SCH ×2 (13:14→20:52)
[2023-01-10] MEDS: CLOPIDOGREL 75 MG TAB PO SCH (13:14)
[2023-01-10] MEDS: LOSARTAN 25 MG TAB PO SCH (13:14)
[2023-01-10] MEDS: ASPIRIN 81 MG PO SCH (13:14)
[2023-01-10] MEDS: amLODIPine 10 MG TAB PO SCH (13:14)
[2023-01-10] MEDS: HYDROcodone/APAP 5-325MG 1 EACH TAB PO PRN (16:52)
[2023-01-10 17:16] LABS: Glucose,Whole Blood 198 mg/dL (70-110)
[2023-01-10 20:36] LABS: Glucose,Whole Blood 220 mg/dL (70-110)
[2023-01-10] MEDS: ATORVASTATIN 40 MG TAB PO SCH (20:52)
--- NOTE | 2023-01-10 22:52 | P.HPIM ---
History of Present Illness H&P Date: 01/10/23 Chief Complaint: Weakness Patient is a 67-year-old male with a known history of CVA with right-sided weakness, diabetes type 2 insulin-dependent, history of CA, osteoarthritis, coronary with history of stent placement and prior history of smoking was brought to the hospital due to complaints of poor oral intake and generalized weakness and failure to thrive as per family. Patient is currently bedbound and is being taken care of by his . Otherwise patient has been afebrile. No complaints of chest pain or shortness of breath. No nausea vomiting or diarrhea. Apparently patient has been having difficulty swallowing his medications on the day of admission and had a choking episode. Patient was also depressed and concerned about dying as per family. Chest x-ray showed perihilar increased density may reflect developing infiltrate. Left basilar atelectasis parenchymal scar. EKG showed sinus rhythm with possible left atrial enlargement Laboratory data showed WBC 11.6 hemoglobin 13.1 and platelets 302 Sodium 139, potassium 4.2 chloride 105 BUN 21 and creatinine 0.61 and blood sugar is 141 Magnesium 1.8 liver enzymes are not elevated. Urinalysis showed trace blood nitrite positive large leukocyte esterase and elevated RBCs and WBC clumps. Review of Systems Constitutional: Patient denies any fever or chills . Does have generalized weakness. Abdomen: Patient denied any nausea or vomiting or abd. pain Cardiovascular: Patient denies any chest pain or short of breath no palpitations. Respiratory: patient denied any cough . no sputum production. No shortness of breath Neurologic: Patient denied any numbness or tingling headache. Musculoskeletal: Patient denies any complaints of joint swelling or deformity. Skin: Negative Psychiatric: Negative Endocrine: No heat or cold intolerance. No recent weight gain. Genitourinary: No dysuria or hematuria. All other 14 point ROS negative except the above Past Medical History Past Medical History: Asthma, CVA/TIA, Diabetes Mellitus, Myocardial Infarction (CA), Osteoarthritis (OA) Additional Past Medical History / Comment(s): HX OF BACK SURGERY WITH BACK PAIN, DIABETIC NEUROPATHY, HEART MURMUR., KERATOCONUS., STOOL TEST POSITIVE ., ECZEMA., previous peg tube and trach Last Myocardial Infarction Date:: 08/2022 History of Any Multi-Drug Resistant Organisms: None Reported Date of last positivie culture/infection: 12/19/22 MDRO Source:: stool Past Surgical History: Back Surgery, Heart Catheterization With Stent Additional Past Surgical History / Comment(s): BACK SURGERY WITH DISC REMOVED AND FUSION., VASECTOMY, LEFT GREAT TOE. peg tube, tracheostomy. Past Anesthesia/Blood Transfusion Reactions: No Reported Reaction Date of Last Stent Placement:: 08/2022 Past Psychological History: No Psychological Hx Reported Smoking Status: Never smoker Past Alcohol Use History: None Reported Additional Past Alcohol Use History / Comment(s): QUIT SMOKING 1996. SMOKED CIGARS OCCASIONALLY Past Drug Use History: None Reported - Past Family History Mother Family Medical History: No Reported History Medications and Allergies Home Medications Medication Instructions Recorded Confirmed Type Atorvastatin [Lipitor] 40 mg PO HS 08/13/22 01/09/23 History Aspirin 81 mg PO DAILY tab 08/30/22 01/09/23 Rx Clopidogrel [Plavix] 75 mg PO DAILY 10/01/22 01/09/23 History Insulin Glargine,Hum.rec.anlog 20 units SQ BID 10/01/22 01/09/23 History [Lantus Solostar Pen] Losartan [Cozaar] 25 mg PO DAILY 10/01/22 01/09/23 History hydrALAZINE HCL [Apresoline] 50 mg PO TID 10/01/22 01/09/23 History Albuterol Nebulized [Ventolin 2.5 mg INHALATION RT-Q6H PRN 12/09/22 01/09/23 History Nebulized] Insulin Aspart [NovoLOG Flexpen] See Protocol SQ ACHS 12/09/22 01/09/23 History Multivitamins, Thera [Multivitamin 1 tab PO DAILY 12/09/22 01/09/23 History (formulary)] diazePAM [Valium] 5 mg PO HS 12/09/22 01/09/23 History glipiZIDE [Glucotrol] 5 mg PO DAILY 12/09/22 01/09/23 History traZODone HCL [Desyrel] 100 mg PO HS 12/09/22 01/09/23 History Fenofibrate 54 mg PO DAILY 12/18/22 01/09/23 History Albuterol Sulfate [Ventolin HFA] 1 - 2 puff INHALATION RT-Q6H PRN 01/09/23 01/09/23 History DULoxetine HCL [Cymbalta] 60 mg PO DAILY 01/09/23 01/09/23 History Fluticasone Propion/Salmeterol 1 puff INHALATION RT-BID 01/09/23 01/09/23 History [Wixela 500-50 Inhub] Metoprolol Tartrate [Lopressor] 50 mg PO BID 01/09/23 01/09/23 History amLODIPine [Norvasc] 10 mg PO DAILY 01/09/23 01/09/23 History Allergies Allergy/AdvReac Type Severity Reaction Status Date / Time Penicillins Allergy Unknown Verified 01/09/23 22:30 Physical Exam Vitals: Vital Signs Temp Pulse Pulse Resp BP BP BP 01/10/23 08:06 01/10/23 08:00 20 01/10/23 07:00 97.6 F 78 20 99/52 01/10/23 02:00 97.6 F 91 15 131/82 01/10/23 01:13 84 16 112/61 01/09/23 21:39 98.4 F 78 18 108/63 Pulse Ox FiO2 01/10/23 08:06 94 L 21 01/10/23 08:00 01/10/23 07:00 97 01/10/23 02:00 94 L 01/10/23 01:13 95 01/09/23 21:39 95 Intake and Output 01/09/23 01/10/23 01/10/23 22:59 06:59 14:59 Output Total 0 Balance 0 Output: Urine 0 Other: Voiding Method External Catheter External Catheter # Bowel Movements 1 Weight 81.647 kg 81.647 kg PHYSICAL EXAMINATION: Patient is lying in the bed comfortably, no acute distress, awake alert and oriented. Weak and lethargic.. HEENT: Normocephalic. Neck is supple. Pupils reactive. Nostrils clear. Oral cavity is moist. Neck reveals no JVD, carotid bruits, or thyromegaly. CHEST EXAMINATION: Trachea is central. Symmetrical expansion. Lung shaffer clear to auscultation and percussion. CARDIAC: Normal S1, S2 with no gallops. No murmurs ABDOMEN: Soft. Bowel sounds present. Nontender. No organomegaly. No abdominal bruits. Extremities: reveal no edema. No clubbing or cyanosis Neurologically awake, alert, oriented x3. Right-sided weakness Skin: No rash or skin lesions. Psychiatric: Coperative. Nonsuicidal, Musculoskeletal: No joint swelling or deformity. Results CBC & Chem 7: 01/10/23 04:48 01/10/23 04:48 Labs: Abnormal Lab Results - Last 24 Hours (Table) 01/09/23 01/09/23 01/09/23 Range/Units 06:30 22:19 22:20 WBC 11.6 H (3.8-10.6) k/uL RBC (4.40-5.60) X 10*6/uL Hgb (13.0-17.0) g/dL Hct 38.7 L (39.0-53.0) % RDW (11.5-14.5) % MPV (9.5-12.2) fL Neutrophils # 9.3 H (1.3-7.7) k/uL Monocytes # (0.20-1.00) X 10*3/uL Eosinophils # (0.04-0.35) X 10*3/uL BUN 21 H (9-20) mg/dL Creatinine 0.61 L (0.66-1.25) mg/dL BUN/Creatinine Ratio (12.00-20.00) Ratio Glucose 141 H (74-99) mg/dL POC Glucose (mg/dL) (70-110) mg/dL Hemoglobin A1c (0.0-6.0) % Urine Protein 1+ H (Negative) Urine Blood Trace H (Negative) Ur Leukocyte Esterase Large H (Negative) Urine RBC 16 H (0-5) /hpf Urine WBC >182 H (0-5) /hpf Urine WBC Clumps Few H (None) /hpf Urine Bacteria Moderate H (None) /hpf Urine Mucus Rare H (None) /hpf 01/10/23 01/10/23 01/10/23 Range/Units 04:48 04:48 04:48 WBC (3.8-10.6) k/uL RBC 3.98 L (4.40-5.60) X 10*6/uL Hgb 11.6 L (13.0-17.0) g/dL Hct 35.0 L (39.0-53.0) % RDW 14.9 H (11.5-14.5) % MPV 8.7 L (9.5-12.2) fL Neutrophils # (1.3-7.7) k/uL Monocytes # 1.15 H (0.20-1.00) X 10*3/uL Eosinophils # 0.02 L (0.04-0.35) X 10*3/uL BUN (9-20) mg/dL Creatinine (0.66-1.25) mg/dL BUN/Creatinine Ratio 29.78 H (12.00-20.00) Ratio Glucose 132 H (74-99) mg/dL POC Glucose (mg/dL) (70-110) mg/dL Hemoglobin A1c 6.1 H (0.0-6.0) % Urine Protein (Negative) Urine Blood (Negative) Ur Leukocyte Esterase (Negative) Urine RBC (0-5) /hpf Urine WBC (0-5) /hpf Urine WBC Clumps (None) /hpf Urine Bacteria (None) /hpf Urine Mucus (None) /hpf 01/10/23 01/10/23 Range/Units 06:45 12:02 WBC (3.8-10.6) k/uL RBC (4.40-5.60) X 10*6/uL Hgb (13.0-17.0) g/dL Hct (39.0-53.0) % RDW (11.5-14.5) % MPV (9.5-12.2) fL Neutrophils # (1.3-7.7) k/uL Monocytes # (0.20-1.00) X 10*3/uL Eosinophils # (0.04-0.35) X 10*3/uL BUN (9-20) mg/dL Creatinine (0.66-1.25) mg/dL BUN/Creatinine Ratio (12.00-20.00) Ratio Glucose (74-99) mg/dL POC Glucose (mg/dL) 119 H 154 H (70-110) mg/dL Hemoglobin A1c (0.0-6.0) % Urine Protein (Negative) Urine Blood (Negative) Ur Leukocyte Esterase (Negative) Urine RBC (0-5) /hpf Urine WBC (0-5) /hpf Urine WBC Clumps (None) /hpf Urine Bacteria (None) /hpf Urine Mucus (None) /hpf Thrombosis Risk Factor Assmnt - DVT/VTE Prophylaxis DVT/VTE Prophylaxis: Pharmacologic Prophylaxis ordered Assessment and Plan Assessment: Perihilar density with possible developing infiltrate/pneumonia. Abnormal urine analysis History of CVA Coronary with history of stent placement CA Diabetes type 2 insulin-dependent Prior history of smoking Diabetic peripheral neuropathy DVT prophylaxis with heparin subcu. Plan: Patient will be continued on gentle IV hydration and was started on antibiotics and follow-up ceftriaxone. Continue the dysphagia level 1 diet and HAND BOOKBINDER consult. Continue with insulin regimen and sliding scale. Continue with aspirin and statins and metoprolol. Psychiatry evaluation PT OT and patient may need rehab transfer. Prognosis guarded. Time with Patient: Greater than 30
[2023-01-11] MEDS: HEPARIN SODIUM,PORCINE/PF 5,000 UNIT/0.5 ML SYRINGE SQ SCH ×3 (02:03→16:40)
[2023-01-11] MEDS: SODIUM CHLORIDE 0.9% 1,000 ML IV SCH ×2 (02:03→16:41)
[2023-01-11] MEDS: INSULIN ASPART (NovoLOG) 100 UNIT/ML VIAL SQ SCH ×4 (06:29→21:29)
[2023-01-11 06:30] LABS: Glucose,Whole Blood 90 mg/dL (70-110)
[2023-01-11] MEDS: SYMBICORT 160-4.5 MCG INHALER INHALATION SCH ×2 (07:35→19:58)
[2023-01-11] MEDS: amLODIPine 10 MG TAB PO SCH (10:06)
[2023-01-11] MEDS: CLOPIDOGREL 75 MG TAB PO SCH (10:06)
[2023-01-11] MEDS: METOPROLOL TARTRATE 50 MG TAB PO SCH ×2 (10:06→22:14)
[2023-01-11] MEDS: INSULIN DETEMIR (LEVEMIR) 100 UNIT/ML SYR SQ SCH ×2 (10:06→22:15)
[2023-01-11] MEDS: LOSARTAN 25 MG TAB PO SCH (10:06)
[2023-01-11] MEDS: ASPIRIN 81 MG PO SCH (10:06)
[2023-01-11 10:52] LABS: Glucose,Whole Blood 170 mg/dL (70-110)
[2023-01-11 12:30] LABS: African American GFR (CKD) >90 (>60 ml/min/1.73 sqM); Anion Gap 8 mmol/L; Blood Urea Nitrogen 18 mg/dL (9-20); Calcium 8.8 mg/dL (8.4-10.2); Carbon Dioxide 25 mmol/L (22-30); Chloride 109 mmol/L (98-107); Glucose 173 mg/dL (74-99); Non-African American GFR(CKD) >90 (>60 ml/min/1.73 sqM); Potassium 3.6 mmol/L (3.5-5.1); Sodium 142 mmol/L (137-145)
[2023-01-11 12:39] LABS: Glucose,Whole Blood 153 mg/dL (70-110)
--- NOTE | 2023-01-11 13:32 | P.CN ---
Psychiatric Consult - . Consult date: 01/11/23 Consult:: 01/11/23 13:23 Patient was seen in psychiatry consult since apparently he told he wanted to and also that he will start to that. Patient had hemiplegia, is weak on one side and has contact is on the other side, had PEG tube put in in the past, is bedridden and is taken care of by his . He is here since he was getting short of breath and apparently a developing pneumonia is a possibility and is on antibiotic. Patient was seen lying down on his bed. He was sound asleep when I walked in. He had a tray with several small sealed cups of liquid and a tray with mashed potato and some small meet. Apparently he did not eat any of these things and about a couple of liquid is empty. He fell asleep as I was talking to him at one point. He said he is from [place] and has been living here in [facility]. He said he had a stroke about 6 months ago. He said he cannot eat regular food and prefers liquid diet. Apparently he had eaten some food this morning. When asked if he would like to take some antidepressants he said yes. He said he has has difficulty in sleeping well at night also. However he was seen sleeping in between our conversation. He said he doesn't want to and would like to have liquid diet and medicine for his "depression". A: Does not appear to be at risk for suicide or wanting to . Recommendation: Change diet to liquid diet per his request, start on Seroquel 25 mg at bedtime as an antidepressant and also to help him sleep better at night. This dose can be increased depending on his response and needs to 50 mg in a few days.
[2023-01-11] MEDS: HYDROcodone/APAP 5-325MG 1 EACH TAB PO PRN ×2 (16:40→22:14)
[2023-01-11 17:11] LABS: Glucose,Whole Blood 98 mg/dL (70-110)
--- NOTE | 2023-01-11 19:49 | P.PN ---
Subjective Progress Note Date: 01/11/23 Patient is a 67-year-old male with a known history of CVA with right-sided weakness, diabetes type 2 insulin-dependent, history of NH, osteoarthritis, coronary with history of stent placement and prior history of smoking was brought to the hospital due to complaints of poor oral intake and generalized w eakness and failure to thrive as per family. Patient is currently bedbound and is being taken care of by his . Otherwise patient has been afebrile. No complaints of chest pain or shortness of breath. No nausea vomiting or diarrhea. Apparently patient has been having difficulty swallowing his medications on the day of admission and had a choking episode. Patient was also depressed and concerned about dying as per family. Chest x-ray showed perihilar increased density may reflect developing infiltrate. Left basilar atelectasis parenchymal scar. EKG showed sinus rhythm with possible left atrial enlargement Laboratory data showed WBC 11.6 hemoglobin 13.1 and platelets 302 Sodium 139, potassium 4.2 chloride 105 BUN 21 and creatinine 0.61 and blood sugar is 141 Magnesium 1.8 liver enzymes are not elevated. Urinalysis showed trace blood nitrite positive large leukocyte esterase and el evated RBCs and WBC clumps. 01/11/2023 Patient is seen in follow-up this morning sleeping although arousable. Patient had made comments yesterday to speech that he wanted to and psych was cons ulted. Patient is agreeable to start antidepressant medications and is being started per psychiatry. Patient per nursing staff has eaten this morning and would recommend liquid diet. Patient has been placed on dysphagia chopped and okay for ground or pureed. Patient is afebrile denies chest pain or shortness of breath. Patient continues with weakness although is mostly bedbound with social work following working on possible ECF. Review of systems: Constitutional: reports of fatigue, no fever, or chills Cardiovascular: No reports of chest pain or palpitations Respiratory: No reports of shortness of breath or cough GI: No reports of nausea, vomiting, or diarrhea : No reports of dysuria or retention Neurovascular: reports of generalized weakness All medications have been reviewed Active Medications Hydrocodone Bitart/Acetaminophen (Hydrocodone/Apap 5-325mg 1 Each Tab) 1 each PO Q6HR PRN PRN Reason: Pain Last Admin: 01/10/23 16:52 Dose: 1 each Albuterol Sulfate (Albuterol Nebulized 2.5 Mg/3 Ml) 2.5 mg INHALATION RT-Q6H PRN PRN Reason: Shortness Of Breath Amlodipine Besylate (Amlodipine 10 Mg Tab) 10 mg PO DAILY [facility] Last Admin: 01/11/23 10:06 Dose: 10 mg Aspirin (Aspirin 81 Mg) 81 mg PO DAILY [facility] Last Admin: 01/11/23 10:06 Dose: 81 mg Atorvastatin Calcium (Atorvastatin 40 Mg Tab) 40 mg PO HS [facility] Last Admin: 01/10/23 20:52 Dose: 40 mg Budesonide/Formoterol Fumarate (Symbicort 160-4.5 Mcg Inhaler) 2 puff INHALATION RT-BID [facility] Last Admin: 01/11/23 07:35 Dose: Not Given Clopidogrel Bisulfate (Clopidogrel 75 Mg Tab) 75 mg PO DAILY [facility] Last Admin: 01/11/23 10:06 Dose: 75 mg Dextrose/Water (Dextrose 50% Syringe 50 Ml) 25 ml IVP PER PROTOCOL PRN; Protocol PRN Reason: Hypoglycemia Dextrose/Water (Dextrose 50% Syringe 50 Ml) 50 ml IVP PER PROTOCOL PRN; Protocol PRN Reason: Hypoglycemia Heparin Sodium (Porcine) (Heparin Sodium,Porcine/Pf 5,000 Unit/0.5 Ml Syringe) 5,000 unit SQ Q8HR [facility] Last Admin: 01/11/23 10:06 Dose: 5,000 unit Sodium Chloride (Saline 0.9%) 1,000 mls @ 75 mls/hr IV .[id number] [facility] Last Admin: 01/11/23 02:03 Dose: 75 mls/hr Ceftriaxone Sodium 1 gm/ (Sodium Chloride) 50 mls @ 100 mls/hr IVPB Q24HR [facility]; Protocol Last Admin: 01/11/23 10:05 Dose: 100 mls/hr Insulin Aspart (Insulin Aspart (Novolog) 100 Unit/Ml Vial) 0 unit SQ ACHS [facility]; Protocol Last Admin: 01/11/23 12:54 Dose: Not Given Insulin Detemir (Insulin Detemir (Levemir) 100 Unit/Ml Syr) 20 unit SQ BID [facility] Last Admin: 01/11/23 10:06 Dose: 20 unit Losartan Potassium (Losartan 25 Mg Tab) 25 mg PO DAILY [facility] Last Admin: 01/11/23 10:06 Dose: 25 mg Metoprolol Tartrate (Metoprolol Tartrate 50 Mg Tab) 50 mg PO BID [facility] Last Admin: 01/11/23 10:06 Dose: 50 mg Naloxone HCl (Naloxone 0.4 Mg/Ml 1 Ml Vial) 0.2 mg IV Q2M PRN PRN Reason: Opioid Reversal PHYSICAL EXAMINATION: Patient is lying in the bed comfortably, no acute distress, asleep although arousable, alert and oriented. Weak and lethargic.. HEENT: Normocephalic. Neck is supple. Pupils reactive. Nostrils clear. Oral cavity is moist. Neck reveals no JVD, carotid bruits, or thyromegaly. CHEST EXAMINATION: Trachea is central. Symmetrical expansion. Lung shaffer clear to auscultation and percussion. CARDIAC: Normal S1, S2 with no gallops. No murmurs ABDOMEN: Soft. Bowel sounds present. Nontender. No organomegaly. No abdominal bruits. Extremities: reveal no edema. No clubbing or cyanosis Neurologically awake, alert, oriented x3. Right-sided weakness Skin: No rash or skin lesions. Psychiatric: Cooperative. Non-suicidal, Musculoskeletal: No joint swelling or deformity. Assessment: Perihilar density with possible developing infiltrate/pneumonia. Possible acute urinary tract infection, present on admission History of CVA Coronary artery disease with history of stent placement History of myocardial infarction Diabetes type 2 insulin-dependent Prior history of smoking Diabetic peripheral neuropathy DVT prophylaxis with heparin subcu. No code Plan: Patient will be continued on gentle IV hydration and continue on IV antibiotics in the form of ceftriaxone and cultures are negative Continue the dysphagia level 1 diet and has been evaluated by speech recommending dysphagia chopped diet although patient prefers liquids Continue with insulin regimen and sliding scale. Continue to monitor Accu-Cheks before meals and at bedtime. Home medications have been reviewed and resumed as appropriate Psychiatry has evaluated the patient and starting the patient on at night Seroquel and recommending outpatient follow-up with counseling and psychiatry PT OT following with social work following as well his family reports he needs rehab although not accepted by any facilities and will likely be going home. Will follow-up with social work and family is there is also concern that patient still does not have Medicaid and this was addressed and discussed on previous admission Prognosis guarded. Encouraged oral intake Patient will likely discharge in 24 hours The impression and plan of care has been dictated by Blessing Garg, Nurse Practitioner as directed. Dr. Sharmin MD I have performed a history and examination and MDM of this patient, discussed the same with the dictator, and agree with the dictator's assessment and plan as written ,documented as a scribe. Based on total visit time, I have performed more than 50% of the visit. Objective - Vital Signs Vital signs: Vital Signs Temp 98.1 F 01/11/23 07:05 Pulse 83 01/11/23 07:05 Resp 20 01/11/23 08:46 BP 129/68 01/11/23 07:05 Pulse Ox 96 01/11/23 07:35 FiO2 21 01/10/23 08:06 Intake & Output 01/10/23 01/11/23 01/11/23 18:59 06:59 18:59 Intake Total 120 240 Output Total 98 600 Balance 22 -600 240 Intake: Oral 120 240 Output: Urine 600 Post Void Residual 98 Other: Voiding Method External Catheter External Catheter External Catheter # Bowel Movements 1 0 - Labs CBC & Chem 7: 01/10/23 04:48 01/11/23 11:44 Labs: Abnormal Lab Results - Last 24 Hours (Table) 01/10/23 01/10/23 01/11/23 Range/Units 17:14 20:34 10:49 Chloride (98-107) mmol/L Creatinine (0.66-1.25) mg/dL Glucose (74-99) mg/dL POC Glucose (mg/dL) 198 H 220 H 170 H (70-110) mg/dL 01/11/23 01/11/23 Range/Units 11:44 12:38 Chloride 109 H (98-107) mmol/L Creatinine 0.50 L (0.66-1.25) mg/dL Glucose 173 H (74-99) mg/dL POC Glucose (mg/dL) 153 H (70-110) mg/dL
[2023-01-11] MEDS ORDERED: QUEtiapine 25 MG TAB PO SCH (21:00)
[2023-01-11 21:29] LABS: Glucose,Whole Blood 100 mg/dL (70-110)
[2023-01-11] MEDS: ATORVASTATIN 40 MG TAB PO SCH (22:14)
[2023-01-12 00:11] VITALS: RESP 18
[2023-01-12 05:29] VITALS: PULSE 76
[2023-01-12] MEDS: HYDROcodone/APAP 5-325MG 1 EACH TAB PO PRN ×2 (06:09→14:00)
[2023-01-12 06:56] LABS: Glucose,Whole Blood 85 mg/dL (70-110)
[2023-01-12] MEDS: CLOPIDOGREL 75 MG TAB PO SCH (08:09)
[2023-01-12] MEDS: ASPIRIN 81 MG PO SCH (08:10)
[2023-01-12] MEDS: INSULIN DETEMIR (LEVEMIR) 100 UNIT/ML SYR SQ SCH (08:10)
[2023-01-12] MEDS: LOSARTAN 25 MG TAB PO SCH (08:10)
[2023-01-12] MEDS: amLODIPine 10 MG TAB PO SCH (08:10)
[2023-01-12] MEDS: METOPROLOL TARTRATE 50 MG TAB PO SCH (08:10)
[2023-01-12] MEDS: SYMBICORT 160-4.5 MCG INHALER INHALATION SCH (08:18)
[2023-01-12] MEDS: HEPARIN SODIUM,PORCINE/PF 5,000 UNIT/0.5 ML SYRINGE SQ SCH ×3 (08:25→18:27)
[2023-01-12] MEDS: INSULIN ASPART (NovoLOG) 100 UNIT/ML VIAL SQ SCH ×3 (08:26→18:27)
[2023-01-12 12:13] LABS: Glucose,Whole Blood 124 mg/dL (70-110)
--- NOTE | 2023-01-12 13:34 | P.CN ---
Psychiatric Consult - . Consult date: 01/12/23 Consult:: 01/12/23 13:30 S&O: Patient was seen today to evaluate his competency to handle his funds and activity and to decide if he will benefit from conservator being appointed for him. Today he is more talkative and was not falling asleep in the middle of conversation. He still has dysarthria, not able to plan things properly and responsibly, not able to move around because of stroke and he thinks it will be better if his manages his affairs. He is not able to move around and attend to his financial, social and other aspects of life in an appropriate manner. Suggestion: Having a conservator preferably his being appointed will help him to take care office personal social financial and other affairs properly.
[2023-01-12 15:26] VITALS: BP 159/79; TEMP 98
[2023-01-12] MEDS: SODIUM CHLORIDE 0.9% 1,000 ML IV SCH (15:34)
[2023-01-12 17:28] LABS: Glucose,Whole Blood 62 mg/dL (70-110)
[2023-01-12 17:39] LABS: Glucose,Whole Blood 67 mg/dL (70-110)
[2023-01-12 18:05] LABS: Glucose,Whole Blood 85 mg/dL (70-110)
== END 2023-01-12 19:05 | disposition home health service (06) | DRG 194 ==
LOC: EC 21:32 → 6NMEDSUR 01-10 00:26
PROVIDERS: ADMIT Internal Medicine; ATTEND Internal Medicine
DX: J18.9 Pneumonia, unspecified organism (principal); I69.351 Hemiplegia and hemiparesis following cerebral infarction affecting right dominant side; N39.0 Urinary tract infection, site not specified; R62.7 Adult failure to thrive; M19.90 Unspecified osteoarthritis, unspecified site; E11.42 Type 2 diabetes mellitus with diabetic polyneuropathy; R13.10 Dysphagia, unspecified; Z74.01 Bed confinement status; I25.10 Atherosclerotic heart disease of native coronary artery without angina pectoris; R47.1 Dysarthria and anarthria; Z79.82 Long term (current) use of aspirin; I25.2 Old myocardial infarction; Z95.5 Presence of coronary angioplasty implant and graft; Z79.02 Long term (current) use of antithrombotics/antiplatelets; Z79.4 Long term (current) use of insulin; Z79.84 Long term (current) use of oral hypoglycemic drugs; Z79.899 Other long term (current) drug therapy; Z87.891 Personal history of nicotine dependence
CPT/HCPCS: 36415; 71045; 80048; 80053; 81001; 83036; 83605; 83735; 84145; 84443; 85025; 85610; 85730; 93005; 94640; 94760; 96361; 96374; 96375; 99285

== ENCOUNTER 2023-01-19 21:06 | Inpatient (IN) | payer MEDICARE ==
[2023-01-19] MEDS ORDERED: SODIUM CHLORIDE 0.9% 1,000 ML IV STA (21:27)
[2023-01-19] MEDS ORDERED: MUPIROCIN 2% OINT 22 GM TUBE TOPICAL STA (21:36)
[2023-01-19] MEDS ORDERED: KETOROLAC 15 MG/ML 1 ML VIAL IVP STA (21:37)
[2023-01-19] MEDS ORDERED: cefTRIAXone IN SWFI 1,000 MG/10 ML SYRINGE IVP STA (22:03)
[2023-01-19 22:10] LABS: Basophils % (A) 0 %; Eosinophils # (A) 0.1 k/uL (0-0.7); Eosinophils % (A) 1 %; HCT 41.5 % (39.0-53.0); HGB 13.7 gm/dL (13.0-17.5); Lymphocytes # (A) 0.8 k/uL (1.0-4.8); Lymphocytes % (A) 7 %; MCV 87.8 fL (80.0-100.0); Mean Platelet Volume 6.4; Monocytes # (A) 0.5 k/uL (0-1.0); Monocytes % (A) 4 %; Neutrophils # (A) 10.4 k/uL (1.3-7.7); Neutrophils % (A) 88 %; Platelet Count 280 k/uL (150-450); RBC 4.72 m/uL (4.30-5.90); RDW 14.7 % (11.5-15.5); WBC 11.9 k/uL (3.8-10.6)
[2023-01-19 22:30] LABS: ALT 18 U/L (4-49); AST 20 U/L (17-59); African American GFR (CKD) >90 (>60 ml/min/1.73 sqM); Albumin 2.8 g/dL (3.5-5.0); Alkaline Phosphatase 86 U/L (38-126); Anion Gap 10 mmol/L; Blood Urea Nitrogen 14 mg/dL (9-20); Calcium 9.8 mg/dL (8.4-10.2); Carbon Dioxide 23 mmol/L (22-30); Chloride 107 mmol/L (98-107); Glucose 127 mg/dL (74-99); Non-African American GFR(CKD) >90 (>60 ml/min/1.73 sqM); Potassium 3.7 mmol/L (3.5-5.1); Sodium 140 mmol/L (137-145); Total Bilirubin 1.1 mg/dL (0.2-1.3); Total Protein 6.6 g/dL (6.3-8.2)
[2023-01-19] MEDS ORDERED: NALOXONE 0.4 MG/ML 1 ML VIAL IV PRN (22:38)
--- NOTE | 2023-01-19 23:31 | ED ---
General Adult HPI - General Chief complaint: Skin/Abscess/Foreign Body Stated complaint: Neck Infection Time Seen by Provider: 01/19/23 21:13 Source: patient Mode of arrival: EMS Limitations: physical limitation - History of Present Illness Initial comments: Patient is a 67-year-old male who presents to the emergency department for possible neck infection. Patient has history of stroke resulting in right hemiplegia. He is bedbound and has history of tracheostomy. According to family patient has had increased redness where his tracheostomy was. Patient states the redness has been there for months. Patient has chronic generalized pain he denies any neck pain. He denies fever, chills, nausea, vomiting. No throat pain or trouble swallowing. No chest pain or shortness of breath. Family is seeking placement. - Related Data Home Medications Medication Instructions Recorded Confirmed Atorvastatin [Lipitor] 40 mg PO HS 08/13/22 01/09/23 Clopidogrel [Plavix] 75 mg PO DAILY 10/01/22 01/09/23 Insulin Glargine,Hum.rec.anlog 20 units SQ BID 10/01/22 01/09/23 [Lantus Solostar Pen] Losartan [Cozaar] 25 mg PO DAILY 10/01/22 01/09/23 Albuterol Nebulized [Ventolin 2.5 mg INHALATION RT-Q6H PRN 12/09/22 01/09/23 Nebulized] Insulin Aspart [NovoLOG Flexpen] See Protocol SQ ACHS 12/09/22 01/09/23 Multivitamins, Thera [Multivitamin 1 tab PO DAILY 12/09/22 01/09/23 (formulary)] glipiZIDE [Glucotrol] 5 mg PO DAILY 12/09/22 01/09/23 Fenofibrate 54 mg PO DAILY 12/18/22 01/09/23 Albuterol Sulfate [Ventolin HFA] 1 - 2 puff INHALATION RT-Q6H PRN 01/09/23 01/09/23 DULoxetine HCL [Cymbalta] 60 mg PO DAILY 01/09/23 01/09/23 Fluticasone Propion/Salmeterol 1 puff INHALATION RT-BID 01/09/23 01/09/23 [Wixela 500-50 Inhub] Metoprolol Tartrate [Lopressor] 50 mg PO BID 01/09/23 01/09/23 amLODIPine [Norvasc] 10 mg PO DAILY 01/09/23 01/09/23 Previous Rx's Medication Instructions Recorded Aspirin 81 mg PO DAILY tab 08/30/22 HYDROcodone/APAP 5-325MG [[place] 1 each PO Q6HR PRN #6 tab 01/12/23 5-325] QUEtiapine [SEROquel] 25 mg PO HS #30 tab 01/12/23 Allergies Allergy/AdvReac Type Severity Reaction Status Date / Time Penicillins Allergy Unknown Verified 01/09/23 22:30 Review of Systems ROS Statement: Those systems with pertinent positive or pertinent negative responses have been documented in the HPI. ROS Other: All systems not noted in ROS Statement are negative. Past Medical History Past Medical History: Asthma, CVA/TIA, Diabetes Mellitus, Myocardial Infarction (MA), Osteoarthritis (OA) Additional Past Medical History / Comment(s): HX OF BACK SURGERY WITH BACK PAIN, DIABETIC NEUROPATHY, HEART MURMUR., KERATOCONUS., STOOL TEST POSITIVE ., ECZEMA., previous peg tube and trach Last Myocardial Infarction Date:: 08/2022 History of Any Multi-Drug Resistant Organisms: None Reported Date of last positivie culture/infection: 12/19/22 MDRO Source:: stool Past Surgical History: Back Surgery, Heart Catheterization With Stent Additional Past Surgical History / Comment(s): BACK SURGERY WITH DISC REMOVED AND FUSION., VASECTOMY, LEFT GREAT TOE. peg tube, tracheostomy. Past Anesthesia/Blood Transfusion Reactions: No Reported Reaction Date of Last Stent Placement:: 08/2022 Past Psychological History: No Psychological Hx Reported Smoking Status: Never smoker Past Alcohol Use History: None Reported Past Drug Use History: None Reported - Past Family History Mother Family Medical History: No Reported History General Exam Limitations: physical limitation General appearance: alert, in no apparent distress Head exam: Present: atraumatic, normocephalic, normal inspection ENT exam: Present: normal oropharynx, mucous membranes dry Neck exam: Present: full ROM, other (erythema approx 2-3 cm around former tracheostomy site. No blanching, warmth, tenderness. No drainage. No abscess or fluid collection ). Absent: meningismus, lymphadenopathy, thyromegaly Respiratory exam: Present: normal lung sounds bilaterally. Absent: respiratory distress, wheezes, rales, rhonchi, stridor Cardiovascular Exam: Present: regular rate, normal rhythm, normal heart sounds. Absent: systolic murmur, diastolic murmur, rubs, gallop, clicks GI/Abdominal exam: Present: soft, normal bowel sounds. Absent: distended, tenderness, guarding, rebound, rigid Extremities exam: Present: normal inspection, normal capillary refill Neurological exam: Present: alert, oriented X3, CN II-XII intact Psychiatric exam: Present: normal affect, anxious. Absent: normal mood Skin exam: Present: warm, dry, intact, normal color. Absent: rash Course Vital Signs 01/19/23 01/19/23 21:15 23:06 Temperature 98.6 F Pulse Rate 110 H 95 Respiratory 22 18 Rate Blood Pressure 140/83 116/64 O2 Sat by Pulse 98 95 Oximetry Medical Decision Making - Medical Decision Making Was pt. sent in by a medical professional or institution (JENN Hua, MANUFACTURING COST ESTIMATOR, urgent care, hospital, or jail...) When possible be specific @ -[No] Did you speak to anyone other than the patient for history (EMS, parent, family, police, friend...)? What history was obtained from this source @ -[No] Did you review nursing and triage notes (agree or disagree)? Why? @ -[I reviewed and agree with nursing and triage notes] Were old charts reviewed (outside hosp., previous admission, EMS record, old EKG , old radiological studies, urgent care reports/EKG's, jail records)? Report findings @ -No Differential Diagnosis (chest pain, altered mental status, abdominal pain women, abdominal pain men, vaginal bleeding, weakness, fever, dyspnea, syncope, headach e, dizziness, GI bleed, back pain, seizure, CVA, palpatations, mental health)? @ -Cellulitis, abscess, rash, ALLERGIC reaction. This list is not meant to be all-inclusive EKG interpreted by me (3pts min.). @ -[As above] X-rays interpreted by me (1pt min.). @ -[None done] CT interpreted by me (1pt min.). @ -[None done] U/S interpreted by me (1pt. min.). @ -[None done] What testing was considered but not performed or refused? (CT, X-rays, U/S, labs)? Why? @ -[None] What meds were considered but not given or refused? Why? @ -[None] Did you discuss the management of the patient with other professionals (professionals i.e. , PA, MANUFACTURING COST ESTIMATOR, lab, RT, psych nurse, manager social work, spot sprayer, teacher, policy officer, case work aide)? Give summary @ -[No] Was smoking cessation discussed for >3mins.? @ -[No] Was critical care preformed (if so, how long)? @ -[No] Were there social determinants of health that impacted care today? How? (Homelessness, low income, unemployed, alcoholism, drug addiction, transportation, low edu. Level, literacy, decrease access to med. care, care home, rehab)? @ -[No] Was there de-escalation of care discussed even if they declined (Discuss DNR or withdrawal of care, Hospice)? DNR status @ -[No] What co-morbidities impacted this encounter? (DM, HTN, Smoking, COPD, CAD, Cancer, CVA, ARF, Chemo, Hep., AIDS, mental health diagnosis, sleep apnea, morbid obesity)? @ -CVA Was patient admitted / discharged? Hospital course, mention meds given and route, prescriptions, significant lab abnormalities, going to OR and other pertinent info. @ -Admitted. Patient has possible neck infection no fluid collection or abscess. Patient is very dry he is mildly tachycardic which I suspect is related to decreased oral intake. There is mild leukocytosis of 11.9. Patient given IV Rocephin and fluid bolus. I do feel patient will benefit with admission for IV hydration and possible placement. Case discussed with Dr. Reynolds who accepts admission. Undiagnosed new problem with uncertain prognosis? @ -[No] Drug Therapy requiring intensive monitoring for toxicity (Heparin, Nitro, Insulin, Cardizem)? @ -[No] Were any procedures done? @ -[No] Diagnosis/symptom? @ -failure to thrive Acute, or Chronic, or Acute on Chronic? @ -acute Uncomplicated (without systemic symptoms) or Complicated (systemic symptoms)? @ -uncomplicated Side effects of treatment? @ -[No] Exacerbation, Progression, or Severe Exacerbation? @ -[No] Poses a threat to life or bodily function? How? (Chest pain, [place], MA, pneumonia, PE, COPD, DKA, ARF, appy, cholecystitis, CVA, Diverticulitis, Homicidal, Suicidal, threat to staff... and all critical care pts) @ -[No] Dr. Lozano is my attending - Lab Data Result diagrams: 01/19/23 21:57 01/19/23 21:57 Lab Results 01/19/23 01/19/23 Range/Units 21:57 21:57 WBC 11.9 H (3.8-10.6) k/uL RBC 4.72 (4.30-5.90) m/uL Hgb 13.7 (13.0-17.5) gm/dL Hct 41.5 (39.0-53.0) % MCV 87.8 (80.0-100.0) fL MCH 29.0 (25.0-35.0) pg MCHC 33.0 (31.0-37.0) g/dL RDW 14.7 (11.5-15.5) % Plt Count 280 (150-450) k/uL MPV 6.4 Neutrophils % 88 % Lymphocytes % 7 % Monocytes % 4 % Eosinophils % 1 % Basophils % 0 % Neutrophils # 10.4 H (1.3-7.7) k/uL Lymphocytes # 0.8 L (1.0-4.8) k/uL Monocytes # 0.5 (0-1.0) k/uL Eosinophils # 0.1 (0-0.7) k/uL Basophils # 0.0 (0-0.2) k/uL Sodium 140 (137-145) mmol/L Potassium 3.7 (3.5-5.1) mmol/L Chloride 107 (98-107) mmol/L Carbon Dioxide 23 (22-30) mmol/L Anion Gap 10 mmol/L BUN 14 (9-20) mg/dL Creatinine 0.67 (0.66-1.25) mg/dL Est GFR (CKD-EPI)AfAm >90 (>60 ml/min/1.73 sqM) Est GFR (CKD-EPI)NonAf >90 (>60 ml/min/1.73 sqM) Glucose 127 H (74-99) mg/dL Calcium 9.8 (8.4-10.2) mg/dL Total Bilirubin 1.1 (0.2-1.3) mg/dL AST 20 (17-59) U/L ALT 18 (4-49) U/L Alkaline Phosphatase 86 (38-126) U/L Total Protein 6.6 (6.3-8.2) g/dL Albumin 2.8 L (3.5-5.0) g/dL Disposition Clinical Impression: Failure to thrive, Dehydration Disposition: ADMITTED IP TO [facility] Condition: Good
[2023-01-20] MEDS: SODIUM CHLORIDE 0.9% 1,000 ML IV SCH ×3 (00:24→20:24)
[2023-01-20] MEDS: CLINDAMYCIN 300 MG in DEXTROSE 5% IN WATER 50 ML IVPB SCH ×4 (00:42→10:05)
--- NOTE | 2023-01-20 06:13 | CT ---
EXAMINATION TYPE: CT brain wo con DATE OF EXAM: 01/20/2023 HISTORY: Hypoxia and neck swelling CT DLP: 1209 mGycm. Automated Exposure Control for Dose Reduction was Utilized. TECHNIQUE: CT scan of the head is performed without contrast. COMPARISON: CT brain October 01, 2022. FINDINGS: There is no acute intracranial hemorrhage or midline shift identified. There is mild to m oderate diffuse ventricular and sulcal prominence redemonstrated. There is moderate low-attenuation in the deep and periventricular white matter redemonstrated. Opacified bilateral mastoid air cells re demonstrated. Improved soft tissue density surrounding right middle ear ossicles. The globes are inta ct and the visualized sinuses are clear. IMPRESSION: No acute intracranial hemorrhage or midline shift. There is mild to moderate diffuse ag e-related cerebral atrophy and moderate chronic small vessel ischemic change redemonstrated. No signi ficant change from prior. Possible bilateral mastoiditis again seen. Correlate clinically.
--- NOTE | 2023-01-20 06:19 | CT ---
EXAMINATION TYPE: CT chest wo con DATE OF EXAM: 01/20/2023 COMPARISON: Chest x-ray 11 days ago HISTORY: Hypoxia. CT DLP: 515.5 mGycm. Automated Exposure Control for Dose Reduction was Utilized. TECHNIQUE: CT scan of the thorax is performed without IV contrast. FINDINGS: Exam is suboptimal as patient unable to hold breath. This limits evaluation for subcentimet er nodules. LUNGS: There is mild linear scarring in the left lung base. Slightly elevated left hemidiaphragm. No pleural effusion or pneumothorax seen bilaterally. No suspicious focal consolidation.. MEDIASTINUM: Lack of IV contrast is noted to limit evaluation for mediastinal and especially hilar ad enopathy. There are no definitive greater than 1 cm mediastinal lymph nodes. Heart size upper limits of normal. No pericardial effusion is seen. Severe three-vessel coronary artery calcification and/or stents. Enlarged main pulmonary artery suggesting underlying pulmonary artery hypertension. Calcifica tion at level of the aortic valve. OTHER: Dependent density consistent with small stones and/or gallbladder sludge. Moderate fecal promi nence in the region of the hepatic flexure. IMPRESSION: Slightly suboptimal study. Mild left basilar linear scarring and/or atelectasis. No suspi cious focal consolidation. Suspect underlying pulmonary artery hypertension.
[2023-01-20] MEDS: IPRATROPIUM-ALBUTEROL 3 ML NEB INHALATION SCH ×4 (07:52→19:44)
[2023-01-20] MEDS: BUDESONIDE 0.5 MG/2 ML NEBU INHALATION SCH ×2 (07:52→19:44)
[2023-01-20] MEDS: CLOPIDOGREL 75 MG TAB PO SCH (10:06)
[2023-01-20] MEDS: ASPIRIN 81 MG PO SCH (10:06)
[2023-01-20] MEDS: FENOFIBRATE 54 MG TAB PO SCH (10:06)
[2023-01-20] MEDS: METOPROLOL TARTRATE 50 MG TAB PO SCH ×2 (10:06→20:23)
[2023-01-20] MEDS: LOSARTAN 25 MG TAB PO SCH (10:06)
[2023-01-20] MEDS: amLODIPine 10 MG TAB PO SCH (10:06)
[2023-01-20] MEDS: MULTIVITAMINS, THERA 1 EACH TAB PO SCH (10:06)
[2023-01-20] MEDS: DULoxetine HCL 60 MG CAPSULE.DR PO SCH (10:06)
[2023-01-20] MEDS ORDERED: FUROSEMIDE 10 MG/ML 4 ML VIAL IV ONE (12:00)
[2023-01-20] MEDS ORDERED: VANCOMYCIN IV PER PHARMACY 1 EACH MISC MISCELLANE PRN (12:43)
[2023-01-20] MEDS: VANCOMYCIN 1,500 MG in SODIUM CHLORIDE 0.9% 500 ML 500 ML IVPB SCH (13:59)
--- NOTE | 2023-01-20 15:04 | CT ---
EXAMINATION TYPE: CT soft tissue neck w con DATE OF EXAM: 01/20/2023 HISTORY: tracheostomy site abscess COMPARISON: NONE CT DLP: 630.2 mGycm. Automated Exposure Control for Dose Reduction was Utilized. TECHNIQUE: CT scan of the neck is performed with IV Contrast, patient injected with 100 mL of Isovue 300, axial images are obtained, coronal and sagittal reformatted images are reviewed. FINDINGS: Airway: Trace bilateral pleural effusions are partially imaged. Patent nasopharyngeal and oropharynge al airways appear patent hypopharyngeal airway. Trachea appears patent. No well-formed fluid collecti on or abscess in the anterior soft tissue site of prior thyroid and cricoid cartilage to suggest absc ess at this level. Parotid/submandibular glands: Inferior left parotid gland has 2.0 x 1.7 cm oval circumscribed enhanci ng solid mass axial image 64. Carotid/Vascular Structures: Enlarged main pulmonary artery suggests underlying pulmonary artery hype rtension . There is bovine type aortic arch which is normal variant. There is moderate peripheral hyp oechoic plaque along the left proximal subclavian artery without significant stenosis. There is sligh tly smaller caliber left common carotid artery with prominent surrounding soft tissue density seen be st on coronal image 29 for reference. No hemodynamically significant focal stenosis. Severe calcified plaque left carotid bulb. Cannot exclude significant focal stenosis origin of left internal carotid artery due to prominent calcified plaque. Carotid ultrasound follow-up may be beneficial to further e valuate. Mild to moderate peripheral calcified plaque right carotid bulb extending into proximal inte rnal carotid artery without significant stenosis. Mild calcified plaque distal internal carotid arter ies bilaterally. Osseous Structures: Grade 1 retrolisthesis C3 on C4 with moderate to severe disc space narrowing . Mo derate disc space narrowing C5-C6 level. Levoconvex scoliosis centered in the upper thoracic spine. There are abnormal enlarged left neck lymph nodes involving the anterior and posterior aspects beginn ing at level of left parotid gland extending to level of the inferior hyoid bone. For reference is 1. 8 x 1.5 cm posterior cervical triangle lymph node at level of inferior hyoid bone image 53. For refer ence 2 adjacent abnormal enlarged lymph nodes at level of the left inferior parotid mass axial image 64 just anterior to the calcified left carotid bulb. Other: Coronary artery calcification is present. IMPRESSION: 1. No significant inflammatory change or focal fluid collection to suggest abscess in the anterior so ft tissue at level of prior tracheostomy. 2. Abnormal upper left neck adenopathy with suspicion for inferior left parotid solid mass versus abn ormal intraparotid lymph node felt less likely. Neoplasm needs to be considered. Advise ENT consultat ion. Consider PET CT follow-up to further evaluate. Consider outpatient ultrasound-guided sampling to further evaluate based on clinical correlation.
--- NOTE | 2023-01-20 15:29 | P.CN ---
Psychiatric Consult - . Consult date: 01/20/23 Consult:: 01/20/23 14:47 IDENTIFYING DATA: This patient is a 67-year-old male who is retired REASON FOR REFERRAL: Psychiatry was consulted for evaluating capacity HISTORY OF PRESENT ILLNESS: The patient presented to the hospital with neck infection. He has a history of CVA with right-sided weakness, diabetes type 2 insulin-dependent, history of NH in 08/2022, osteoarthritis, coronary with history of stent placement and prior history of smoking. Per chart review: 08/2022: CT head was performed, which revealed acute/subacute CVA on the medial aspect of the right cerebellar hemisphere. Additional acute/subacute CVA including the left frontal/parietal lobe deep white matter and right temporal lobe Patient is A&Ox1 to self. He believes it is 02/16/2021. Although he believes himself to be at [place], [place], he believes that he is at [facility]. Patient says that he currently lives with his girlfriend Sarah. He says he is in the hospital because "I'm depressed". He endorses a history of depression and was surprised to hear that he is on an antidepressant (Cymbalta). When asked, he is unable to recall names of his medications or when he takes them. He says that his girlfriend help him with the medications but he is unable to take care of this himself. He says that since his stroke (he believes this occurred 4 years ago although per chart review, this was in 2021), he has been depressed due to his inability to move his right extremities. He expresses frustration with his health and well-being. He endorses passive suicidal ideat ion and questions why he is alive. He says that the reason he discovers for this answer is his family. He reports being future orientated to spend time with his family. He says that his children (who are all adults) live in different states and he looks forward to spending time with them. He says that he would never hurt himself. He says that the relationship with Sarah has been going okay but says that he misses his with whom he is . He endorses low energy but reports good sleep while at home. He reports having fair appetite. He says he is unable to participate in a lot of activities he used to enjoy due to R hemiplegia. He says he is oftentimes bored at home because he finds his life to be sedentary. At this time patient denies any active suicidal or homicidal ideations, intent or plan. He is future oriented and wants to spend time with his family. When discussing safer potential housing options, he expressed enthusiasm and interest in being placed in a nursing facility where he might be able to interact with more people. He says he prefers this rather than living with his girlfriend. Patient denies any auditory, visual hallucinations and denies any paranoia or delusions. PAST PSYCHIATRIC HISTORY: Patient is unable to accurately recall some of his history. However, he denies a history of psychiatric hospitalizations or seeing a mental health provider. He says that he tried to "fall out of my bed" as a suicide attempt 6 months ago. PAST MEDICAL HISTORY: Past Medical History: Asthma, CVA/TIA, Diabetes Mellitus, Myocardial Infarction (NH), Osteoarthritis (OA) Additional Past Medical History / Comment(s): HX OF BACK SURGERY WITH BACK PAIN, DIABETIC NEUROPATHY, HEART MURMUR., KERATOCONUS., STOOL TEST POSITIVE ., ECZEMA., previous peg tube and trach Last Myocardial Infarction Date:: 08/2022 History of Any Multi-Drug Resistant Organisms: None Reported Date of last positivie culture/infection: 12/19/22 MDRO Source:: stool Past Surgical History: Back Surgery, Heart Catheterization With Stent Additional Past Surgical History / Comment(s): BACK SURGERY WITH DISC REMOVED AND FUSION., VASECTOMY, LEFT GREAT TOE. peg tube, tracheostomy. Past Anesthesia/Blood Transfusion Reactions: No Reported Reaction Date of Last Stent Placement:: 08/2022 Past Psychological History: No Psychological Hx Reported Smoking Status: Never smoker Past Alcohol Use History: None Reported Past Drug Use History: None Reported ALLERGIES: as per EMR. CHEMICAL DEPENDENCY HISTORY: as per HPI. Denies all substance use FAMILY PSYCHIATRIC/SUBSTANCE USE HISTORY: Denies a family history of mental illness SOCIAL HISTORY: Patient states that he currently lives with his girlfriend Sarah and that he was to his for 12 years. He says he has 2 daughters and 2 sons. 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 MENTAL STATUS EXAM: General Appearance: Patient appears to be stated age is alert, pleasant, and cooperative. Patient appears to have fair hygiene and grooming wearing hospital gown with fair eye contact. Behavior: Patient is calmly lying in bed without any agitated behavior. Leaning to the left side of the bed Speech: Patient's speech is slurred, fluent and nonpressured. Mood/Affect: Patient reports their mood is "depressed", affect is congruent Suicidality/Homicidality: Patient denies having any suicidal or homicidal ideation, intent or plan. Perceptions: Patient denies any visual hallucinations and denies any auditory hallucinations Though content/process: There is no evidence of any delusional thought content and thought process is linear and goal-directed. 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 -Patient DOES NOT have decision making capacity at this time and is unable to reason through and communicate/appreciate the risks, benefits and alternatives to treatment. Agree with pursuing guardianship -Delirium precautions recommended with patient including - avoiding use of narcotics and [employer] sedatives, limit anticholinergic medications when possible, frequent re-orientation, minimize use of restraints, open window shades during the day and close them at night -Would recommend the following medication changes/additions: - Continue Cymbalta 60 mg daily, which is difficult to give due to swallowing issues per nursing. Cannot change to Prozac liquid formulation due to interaction with Clopidogrel - Start Wellbutrin 100 mg daily -storage brine worker to provide patient with outpatient mental health/psychiatry resources for appropriate follow up upon discharge -Recommend [facility] assisted living facility following discharge (and request SW to facilitate) to improve medical and personal care, which are impacted significantly due to his dementia process. To be coordinated with patient and patient's family -Communicated plan to patient's nurse -Psychiatry will sign off at this time -Please contact with any questions.
--- NOTE | 2023-01-20 18:26 | P.CNPUL ---
History of Present Illness Consult date: 01/20/23 Chief complaint: Failure to thrive History of present illness: This is a 67-year-old male patient, quite debilitated, was brought into the emergency department by family members due to failure to thrive and the family was seeking placement. The patient himself denies having any specific complaints. He was also noted that there was some redness at the previously inserted tracheostomy stoma area. For that reason a pulmonary consultation was requested. The patient is talking normally. He is weak. He is quite debilitated because of his throat and right-sided hemiplegia. He is nonambulatory. No reported fever. No chills. No active drainage from his neck area. Based on the records, I have taken care of this patient back in August 2022. At that time, the patient was seen in the intensive care unit for respiratory failure and acute pulmonary edema after an acute ST segment elevation myocardial infarction for which the patient underwent intervention and he was found to have CAD with 100% RCA, 30% LAD and mild RCA lesion. The patient was also found to have moderate severe aortic valve stenosis with a peak gradient of 60. His echocardiogram showed an ejection fraction of 40-45% and had moderate degree of aortic stenosis. He also had an acute/subacute stroke ischemic in nature although possibility of embolic phenomena cannot be completely excluded. LUCA was negative for any intracardiac thrombus or shunting. Patient had a right-sided hemiplegia related to left-sided CVA. The patient at that time was intubated and he was placed on a mechanical ventilator. He was difficult to wean and hard of his weaning, the patient required a tracheostomy tube insertion along with a PEG tube insertion was subsequently removed after the patient's condition stabilized. He is known to have diabetes mellitus, chronic bronchial asthma and previous history of a left cervical/parotid lymph node versus lesion that was not worked up. Family has noted some increased erythema around the tracheostomy stoma. I examined the area. There is no active drainage. 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 Based on that, a CAT scan of the neck was done. The CAT scan of the neck showed no evidence of any abscess or fluid collection in the tracheostomy area and the patient's airway was adequate. There was as expected a upper left neck lymph node suspicious of a parotid lesion versus lymph nodes. This was measuring 2 x 1.7 cm in size. Also, CAT scan of the chest was done that showed smaller lung volumes and elevation of the hemidiaphragms bilaterally. There was mild left basilar s car/atelectasis. There was no evidence of any pneumonia or focal consolidation. The patient is speaking normally. He has no stridor. He has an adequate cough. No dysgeusia 11.9 with a hemoglobin of 13.7 and a platelet count of 280. Electrolytes are normal. Pro-calcitonin level is at 0.11. Note that the patient was subsequently admitted to the hospital in November 2022 for C. diff colitis, treated and discharged. His last hospital admission was in December 2022 and +, the patient was in the hospital back in December for an underlying urinary tract infection. He was treated and discharged home. He lives in the [facility]. He was brought into the hospital by family members. He states that he is able to swallow adequately. The PEG tube was also removed previously. He is currently eating purine diet. Review of Systems Constitutional: Reports fatigue, Reports poor appetite, Reports weakness Eyes: denies as per HPI, denies blurred vision, denies bulging eye, denies decreased vision, denies diplopia, denies discharge, denies dry eye, denies irritation, denies itching, denies pain, denies photophobia, denies loss of peripheral vision, denies loss of vision, denies tunnel vision/blind spots Ears: deny: decreased hearing, ear discharge, earache, tinnitus Ears, nose, mouth and throat: Reports as per HPI (Above-mentioned note about his neck problem) Breasts: absent: as per HPI, gynecomastia Cardiovascular: Reports as per HPI (Patient is nonambulatory) Respiratory: Reports as per HPI Gastrointestinal: Reports as per HPI (Some difficulties with swallowing and the patient is taking pured diet. No reported aspiration) Genitourinary: Reports as per HPI Musculoskeletal: Reports as per HPI Musculoskeletal: absent: ankle pain, ankle stiffness, ankle swelling Integumentary: Reports as per HPI Neurological: Reports as per HPI, Reports weakness (Right-sided hemiplegia) Psychiatric: Reports as per HPI, Reports anxiety Endocrine: Reports as per HPI Hematologic/Lymphatic: Reports as per HPI Allergic/Immunologic: Reports as per HPI Past Medical History Past Medical History: Asthma, CVA/TIA, Diabetes Mellitus, Myocardial Infarction ([place]), Osteoarthritis (OA) Additional Past Medical History / Comment(s): HX OF BACK SURGERY WITH BACK PAIN, DIABETIC NEUROPATHY, HEART MURMUR., KERATOCONUS., STOOL TEST POSITIVE ., ECZEMA., previous peg tube and trach Last Myocardial Infarction Date:: 08/2022 History of Any Multi-Drug Resistant Organisms: None Reported Date of last positivie culture/infection: 12/19/22 MDRO Source:: stool Past Surgical History: Back Surgery, Heart Catheterization With Stent Additional Past Surgical History / Comment(s): BACK SURGERY WITH DISC REMOVED AND FUSION., VASECTOMY, LEFT GREAT TOE. peg tube, tracheostomy. Past Anesthesia/Blood Transfusion Reactions: No Reported Reaction Date of Last Stent Placement:: 08/2022 Past Psychological History: No Psychological Hx Reported Smoking Status: Never smoker Past Alcohol Use History: None Reported Past Drug Use History: None Reported - Past Family History Mother Family Medical History: No Reported History Medications and Allergies Home Medications Medication Instructions Recorded Confirmed Type Atorvastatin [Lipitor] 40 mg PO HS 08/13/22 01/20/23 History Aspirin 81 mg PO DAILY tab 08/30/22 01/20/23 Rx Clopidogrel [Plavix] 75 mg PO DAILY 10/01/22 01/20/23 History Insulin Glargine,Hum.rec.anlog 20 units SQ BID 10/01/22 01/20/23 History [Lantus Solostar Pen] Losartan [Cozaar] 25 mg PO DAILY 10/01/22 01/20/23 History Albuterol Nebulized [Ventolin 2.5 mg INHALATION RT-Q6H PRN 12/09/22 01/20/23 History Nebulized] Insulin Aspart [NovoLOG Flexpen] See Protocol SQ ACHS 12/09/22 01/20/23 History Multivitamins, Thera [Multivitamin 1 tab PO DAILY 12/09/22 01/20/23 History (formulary)] glipiZIDE [Glucotrol] 5 mg PO DAILY 12/09/22 01/20/23 History Fenofibrate 54 mg PO DAILY 12/18/22 01/20/23 History Albuterol Sulfate [Ventolin HFA] 1 - 2 puff INHALATION RT-Q6H PRN 01/09/23 01/20/23 History DULoxetine HCL [Cymbalta] 60 mg PO DAILY 01/09/23 01/20/23 History Fluticasone Propion/Salmeterol 1 puff INHALATION RT-BID 01/09/23 01/20/23 History [[place]ixela 500-50 Inhub] Metoprolol Tartrate [Lopressor] 50 mg PO BID 01/09/23 01/20/23 History amLODIPine [Norvasc] 10 mg PO DAILY 01/09/23 01/20/23 History HYDROcodone/APAP 5-325MG [[place] 1 each PO Q6HR PRN #6 tab 01/12/23 01/20/23 Rx 5-325] QUEtiapine [SEROquel] 25 mg PO HS #30 tab 01/12/23 01/20/23 Rx Allergies Allergy/AdvReac Type Severity Reaction Status Date / Time Penicillins Allergy Unknown Verified 01/20/23 07:56 Physical Exam Vitals: Vital Signs Temp Pulse Pulse Resp BP BP Pulse Ox 01/20/23 15:40 76 01/20/23 15:25 76 01/20/23 12:12 68 01/20/23 12:00 72 01/20/23 11:29 98.0 F 65 16 109/65 99 01/20/23 08:09 92 01/20/23 07:53 96 01/20/23 07:06 98.2 F 97 15 113/64 97 01/20/23 00:15 98.3 F 93 15 107/52 98 01/19/23 23:06 95 18 116/64 95 01/19/23 21:15 98.6 F 110 H 22 140/83 98 Intake and Output 01/20/23 01/20/23 01/20/23 06:59 14:59 22:59 Intake Total 900 Balance 900 Intake: Intake, IV Titration 900 Amount Sodium Chloride 0.9% 1, 900 000 ml @ 75 mls/hr IV . [id number] [facility] Rx#:[id number] Other: # Voids 3 Weight 81.647 kg Gen. appearance the patient is, comfortable, does not seem to be in any form of respiratory distress Head exam was generally normal. There was no scleral icterus or corneal arcus. Mucous membranes were moist. Neck is supple and the patient has a healing tracheostomy stoma. There is granulation tissue. There is probably some central opening. No active air leak from that started opening. No active drainage. No swelling in his neck. There is a 2 cm left parotid lesion/opacity that can be easily palpated. This is quite mobile and nontender. No evidence of any stridor. Lungs sounds are diminished bilaterally otherwise clear. Cardiac exam revealed the PMI to be normally situated and sized. The rhythm was regular and no extrasystoles were noted during several minutes of auscultation. The first and second heart sounds were normal and physiologic splitting of the second heart sound was noted. There were no murmurs, rubs, clicks, or gallops. Abdominal exam revealed normal bowel sounds. The abdomen was soft, non-tender, and without masses, organomegaly, or appreciable enlargement of the abdominal aorta. Examination of the extremities revealed easily palpable radial, femoral and pedal pulses. There was no cyanosis, clubbing or edema. Examination of the skin revealed no evidence of significant rashes, suspicious appearing nevi or other concerning lesions. Neurologically the patient has a right-sided hemiplegia/weakness. Is awake and oriented and is communicating. Results - Laboratory Findings CBC and BMP: 01/19/23 21:57 01/19/23 21: ABG WBC 11.9 k/uL (3.8-10.6) H 01/19/23: RBC 4.72 m/uL (4.30-5.90) 01/19/23 21:57 Hgb 13.7 gm/dL (13.0-17.5) 01/19/23: Hct 41.5 % (39.0-53.0) 01/19/23: MCV 87.8 fL (80.0-100.0) 01/19/23 21: MCH 29.0 pg (25.0-35.0) 01/19/23: MCHC 33.0 g/dL (31.0-37.0) 01/19/23: RDW 14.7 % (11.5-15.5) 01/19/23 21: Plt Count 280 k/uL (150-450) 01/19/23 21: MPV 6.4 01/19/23 21:57 Neutrophils % 88 % 01/19/23 21:57 Lymphocytes % 7 % 01/19/23 21:57 Monocytes % 4 % 01/19/23 21:57 Eosinophils % 1 % 01/19/23 21:57 Basophils % 0 % 01/19/23 21:57 Neutrophils # 10.4 k/uL (1.3-7.7) H 01/19/23 21:57 Lymphocytes # 0.8 k/uL (1.0-4.8) L 01/19/23 21:57 Monocytes # 0.5 k/uL (0-1.0) 01/19/23 21:57 Eosinophils # 0.1 k/uL (0-0.7) 01/19/23 21:57 Basophils # 0.0 k/uL (0-0.2) 01/19/23 21:57 Sodium 140 mmol/L (137-145) 01/19/23 21:57 Potassium 3.7 mmol/L (3.5-5.1) 01/19/23 21:57 Chloride 107 mmol/L (98-107) 01/19/23 21:57 Carbon Dioxide 23 mmol/L (22-30) 01/19/23 21:57 Anion Gap 10 mmol/L 01/19/23 21:57 BUN 14 mg/dL (9-20) 01/19/23 21:57 Creatinine 0.67 mg/dL (0.66-1.25) 01/19/23 21:57 Est GFR (CKD-EPI)AfAm >90 (>60 ml/min/1.73 sqM) 01/19/23 21:57 Est GFR (CKD-EPI)NonAf >90 (>60 ml/min/1.73 sqM) 01/19/23 21:57 Glucose 127 mg/dL (74-99) H 01/19/23 21:57 Calcium 9.8 mg/dL (8.4-10.2) 01/19/23 21:57 Total Bilirubin 1.1 mg/dL (0.2-1.3) 01/19/23 21:57 AST 20 U/L (17-59) 01/19/23 21:57 ALT 18 U/L (4-49) 01/19/23 21:57 Alkaline Phosphatase 86 U/L (38-126) 01/19/23 21:57 Total Protein 6.6 g/dL (6.3-8.2) 01/19/23 21:57 Albumin 2.8 g/dL (3.5-5.0) L 01/19/23 21:57 Procalcitonin 0.11 ng/mL (0.02-0.09) H 01/20/23 00:35 Abnormal lab findings: Abnormal Labs 01/19/23 01/19/23 04 21:57 21:57 00:35 WBC 11.9 H Neutrophils # 10.4 H Lymphocytes # 0.8 L Glucose 127 H Albumin 2.8 L Procalcitonin 0.11 H - Diagnostic Findings Chest x-ray: image reviewed CT scan - chest: image reviewed Assessment and Plan Plan: Post tracheostomy insertion and removal. No evidence of any infection. No abscesses. No fluid collection based on the CAT scan findings. No stridor. Airway is not compromised. Examination is consistent with a healing tracheostomy stoma. Left parotid lesion/lymph node that needs to be worked up by ENT. Previous history of lung respiratory failure requiring insertion and removal of tracheostomy tube. Previous history of insertion of PEG tube with subsequent removal. Patient's oral intake is quite diminished and the patient has failed to thrive. Family is seeking placement Failure to thrive and the patient's family seeking placement Previous history of ventilatory dependent respiratory failure due to acute pulmonary edema in the setting of an acute ST segment elevation myocardial infarction CHF with systolic heart failure and ejection fraction of 40-45% History of CVA with right-sided hemiplegia History of diabetes mellitus History of C. diff colitis, recovered History of depression and major neurocognitive disorder secondary to his previous CVA Plan The patient was seen and examined. Examination is consistent with a normally healing tracheostomy stoma. No stridor. No abscess formation. Airway is not compromised. Respiratory status is stable. I suggest discontinuing the vancomycin Family is interested in placement I'm going to sign off the case and leave the rest of the management for medicine. I would suggest having an ENT evaluation regarding the parotid lesion.
[2023-01-20] MEDS: ATORVASTATIN 40 MG TAB PO SCH (20:24)
--- NOTE | 2023-01-20 23:03 | P.CONS ---
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 patient also has history of respiratory failure requiring tracheostomy with subsequent reversal patient has been brought into the ER for evaluation of debility and generalized weakness symptoms apparently has been getting worse for the last few days to weeks and there was concern for possible redness to the previous tracheostomy site and possible concern for infection at that site patient denies having any fever or any chills and no fever has been recorded during the hospital stay patient denies any headache or any symptoms he is not very clear about any symptoms as far as the tracheostomy site is concerned or any drainage no chest pain no shortness of breath or cough and currently patient on room air patient denies any nausea vomiting abdominal pain or any diarrhea on presentation to hospital the patient was afebrile and no fever has been recorded subsequently patient did have a white count of 11.9 with a left shift kidney function was normal liver enzymes are normal patient did have a CT of the brain that was negative for any bleed patient did have a CT of the chest suboptimal study mild left basilar linear ate lectasis patient was started on clindamycin because of his penicillin allergy infectious disease was consulted for further management of antibiotic therapy Review of Systems Positive point and negatives has been mentioned in the HPI, complete review of systems was performed and all other systems are negative Past Medical History Past Medical History: Asthma, CVA/TIA, Diabetes Mellitus, Myocardial Infarction ([place]), Osteoarthritis ([place]) Additional Past Medical History / Comment(s): HX OF BACK SURGERY WITH BACK PAIN, DIABETIC NEUROPATHY, HEART MURMUR., KERATOCONUS., STOOL TEST POSITIVE ., ECZEMA., previous peg tube and trach Last Myocardial Infarction Date:: 08/2022 History of Any Multi-Drug Resistant Organisms: None Reported Year Discovered:: 12/19/22 MDRO Source:: stool Past Surgical History: Back Surgery, Heart Catheterization With Stent Additional Past Surgical History / Comment(s): BACK SURGERY WITH DISC REMOVED AND FUSION., VASECTOMY, LEFT GREAT TOE. peg tube, tracheostomy. Past Anesthesia/Blood Transfusion Reactions: No Reported Reaction Date of Last Stent Placement:: 08/2022 Past Psychological History: No Psychological Hx Reported Smoking Status: Never smoker Past Alcohol Use History: None Reported Past Drug Use History: None Reported - Past Family History Mother Family Medical History: No Reported History Father Additional Family Medical History / Comment(s): of old age Medications and Allergies Home Medications Medication Instructions Recorded Confirmed Type Atorvastatin [Lipitor] 40 mg PO HS 08/13/22 01/20/23 History Aspirin 81 mg PO DAILY tab 08/30/22 01/20/23 Rx Clopidogrel [Plavix] 75 mg PO DAILY 10/01/22 01/20/23 History Insulin Glargine,Hum.rec.anlog 20 units SQ BID 10/01/22 01/20/23 History [Lantus Solostar Pen] Losartan [Cozaar] 25 mg PO DAILY 10/01/22 01/20/23 History Albuterol Nebulized [Ventolin 2.5 mg INHALATION RT-Q6H PRN 12/09/22 01/20/23 History Nebulized] Insulin Aspart [NovoLOG Flexpen] See Protocol SQ ACHS 12/09/22 01/20/23 History Multivitamins, Thera [Multivitamin 1 tab PO DAILY 12/09/22 01/20/23 History (formulary)] glipiZIDE [Glucotrol] 5 mg PO DAILY 12/09/22 01/20/23 History Fenofibrate 54 mg PO DAILY 12/18/22 01/20/23 History Albuterol Sulfate [Ventolin HFA] 1 - 2 puff INHALATION RT-Q6H PRN 01/09/23 01/20/23 History DULoxetine HCL [Cymbalta] 60 mg PO DAILY 01/09/23 01/20/23 History Fluticasone Propion/Salmeterol 1 puff INHALATION RT-BID 01/09/23 01/20/23 History [Wixela 500-50 Inhub] Metoprolol Tartrate [Lopressor] 50 mg PO BID 01/09/23 01/20/23 History amLODIPine [Norvasc] 10 mg PO DAILY 01/09/23 01/20/23 History HYDROcodone/APAP 5-325MG [[place] 1 each PO Q6HR PRN #6 tab 01/12/23 01/20/23 Rx 5-325] QUEtiapine [SEROquel] 25 mg PO HS #30 tab 01/12/23 01/20/23 Rx Budesonide [Pulmicort] 0.5 mg INHALATION RT-BID 30 Days 01/25/23 Rx #60 ml Doxycycline [Vibramycin] 100 mg PO BID 7 Days #14 cap 01/25/23 Rx Ipratropium-Albuterol Nebulize 3 ml INHALATION RT-QID 30 Days 01/25/23 Rx [Duoneb 0.5 mg-3 mg/3 ml Soln] #120 each Nystatin 100,000Unit/gm Cream 1 applic TOPICAL BID 30 Days #30 01/25/23 Rx [Mycostatin Cream] each Potassium Chloride ER [K-Dur 20] 20 meq PO DAILY 30 Days #30 tab 01/25/23 Rx buPROPion SR [Wellbutrin SR] 100 mg PO DAILY 30 Days #30 tab 01/25/23 Rx Allergies Allergy/AdvReac Type Severity Reaction Status Date / Time Penicillins Allergy Unknown Verified 01/20/23 07:56 Physical Exam Vitals: Vital Signs Temp Pulse Pulse Resp BP BP Pulse Ox 01/20/23 08:09 92 01/20/23 07:53 96 01/20/23 07:06 98.2 F 97 15 113/64 97 01/20/23 00:15 98.3 F 93 15 107/52 98 01/19/23 23:06 95 18 116/64 95 01/19/23 21:15 98.6 F 110 H 22 140/83 98 Intake and Output 01/19/23 01/20/23 01/20/23 22:59 06:59 14:59 Intake Total 900 Balance 900 Intake: Intake, IV Titration 900 Amount Sodium Chloride 0.9% 1, 900 000 ml @ 75 mls/hr IV . [id number] [facility] Rx#:[id number] Other: Weight 81.647 kg GENERAL DESCRIPTION: Elderly male lying in bed, no distress. No tachypnea or ac cessory muscle of respiration use. HEENT: Shows Pallor , no scleral icterus. Oral mucous membrane is dry. No pharyngeal erythema or thrush NECK: Minimal erythema at the previous trach side LUNGS: Unlabored breathing. Clear to auscultation anteriorly. HEART: S1, S2, regular rate and rhythm. No loud murmur ABDOMEN: Soft, no tenderness , guarding or rigidity, no organomegaly EXTREMITIES: No edema of feet. SKIN: No rash, no masses palpable. NEUROLOGICAL: The patient is awake, alert, oriented x2 mood and affect normal. Results CBC & Chem 7: 02/04/23 06:42 02/04/23 06:42 Labs: Abnormal Lab Results - Last 24 Hours (Table) 01/19/23 01/19/23 01/20/23 Range/Units 21:57 21:57 00:35 WBC 11.9 H (3.8-10.6) k/uL Neutrophils # 10.4 H (1.3-7.7) k/uL Lymphocytes # 0.8 L (1.0-4.8) k/uL Glucose 127 H (74-99) mg/dL Albumin 2.8 L (3.5-5.0) g/dL Procalcitonin 0.11 H (0.02-0.09) ng/mL Assessment and Plan (1) Cellulitis, neck Current Visit: Yes Status: Acute Code(s): L03.221 - CELLULITIS OF NECK SNOMED Code(s): 88405452 (2) Leukocytosis Current Visit: Yes Status: Acute Code(s): D72.829 - ELEVATED WHITE BLOOD CELL COUNT, UNSPECIFIED SNOMED Code(s): 154294942 Plan: 1patient was in the hospital with debility weakness and there was concern for possible cellulitis to previous trach site patient did have minimal erythema at that site but no drainage was noticed. Did not have any fever however admitted have elevated white count 11.9 with a left shift CT of the chest was negative for any pneumonia abdominal supplemental examination 2-penicillin allergy that would limit the number of antibiotics safe to use 3-we will check inflammatory markers and check a UA to complete the work-up 4-we will check a CT of the soft tissue of the neck to make sure evidence of any abscess or cellulitis 5-discontinue clindamycin and start patient vancomycin while waiting for the work-up to be completed We will follow on clinical condition and cultures to further adjust medication if needed Thank you for this consultation we will follow the patient along with you Time with Patient: Greater than 30
--- NOTE | 2023-01-21 01:10 | HP ---
HISTORY AND PHYSICAL HISTORY OF PRESENT ILLNESS: This is a 67-year-old white male who is mostly confused and obtunded in the ER. Discussed with his daughters who were there in the hospital. He came in due to possible neck infection with redness and swelling over the trach area. He had a stroke. He has a history of stroke with right hemiplegia, is bed-bound, tracheostomy. He has been more obtunded and confused over the last month or 2, slowly getting worse, family seeking placement. HOME MEDICINES: 1. Lipitor 40 daily. 2. Plavix 75 daily. 3. Insulin 20 units subcu b.i.d. 4. Cozaar 25 daily. 5. Albuterol q.4h p.r.n. 6. Multivitamins daily. 7. Glucotrol 5 daily. 8. Fenofibrate 54 daily. 9. Ventolin HFA 2 puffs q.4h p.r.n. 10.Cymbalta 60 daily. 11.Wixela 500/50 one puff b.i.d. 12.Lopressor 50 b.i.d. 13.Norvasc 10 mg daily. ALLERGIES: Penicillin. REVIEW OF SYSTEMS: A 14-point review of systems as mentioned above. PHYSICAL EXAMINATION: GENERAL: He is alert. He is resting comfortably. VITAL SIGNS: His oxygen sat in the low 90s. We put him on 2 L oxygen. Temperature 98.6, pulse 95 to 110, respiratory rate 18 to 22, blood pressure 116 to 140 over 60s to 80s, O2 low 90s here, lying in bed, trying to sleep. NECK: He has tracheostomy in the anterior neck which is red swollen. LUNGS: Transmitted upper sounds. CARDIOVASCULAR: S1, S2. ABDOMEN: Soft. EXTREMITIES: Cachectic looking. NEUROLOGIC: Cranial nerves appear to be intact. He does shakes his head questions, came in with dry skin turgor. Put him on oxygen, cellulitis of the neck, altered mental status secondary to possible dehydration, prerenal azotemia, cellulitis of the neck, rule out tracheal obstruction. Get neurology, pulmonary, cardiac. CAT of the chest shows pulmonary hypertension, Pulmonary was consulted. Coronary artery calcifications of severe nature, get Cardiology involved, failure to thrive, dehydration, want to be monitored closely. 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 Prognosis guarded. MMODL / IJN: [id number] /
[2023-01-21] MEDS: VANCOMYCIN 1,500 MG in SODIUM CHLORIDE 0.9% 500 ML 500 ML IVPB SCH ×2 (06:15→22:08)
[2023-01-21 07:12] LABS: African American GFR (CKD) >90 (>60 ml/min/1.73 sqM); Non-African American GFR(CKD) >90 (>60 ml/min/1.73 sqM)
--- NOTE | 2023-01-21 07:15 | PN ---
PROGRESS NOTE A 67-year-old white male who is more responsive today, given appropriate answers when it Lopressor for hypertension, vancomycin for possible infection, amlodipine, aspirin, Lipitor, Pulmicort, Cozaar, Lopressor. White count is a little bit high at 11.9, sugar is 127, albumin is low at 2.8. Procalcitonin 0.11. He has had infection on the anterior part of his neck around the trach tube. Pulmonary saw him today. He is on broad-spectrum Cleocin. He has elevated procalcitonin level [place], CHF with ejection fraction of 40% to 45%, history of CVA, history of diabetes mellitus, C. diff colitis, history of depression airway not compromised . MMODL / IJN: [id number] /
[2023-01-21] MEDS: IPRATROPIUM-ALBUTEROL 3 ML NEB INHALATION SCH ×4 (09:38→20:18)
[2023-01-21] MEDS: BUDESONIDE 0.5 MG/2 ML NEBU INHALATION SCH ×2 (09:39→20:18)
[2023-01-21] MEDS: METOPROLOL TARTRATE 50 MG TAB PO SCH ×3 (10:01→22:11)
[2023-01-21] MEDS: DULoxetine HCL 60 MG CAPSULE.DR PO SCH (10:01)
[2023-01-21] MEDS: MULTIVITAMINS, THERA 1 EACH TAB PO SCH (10:02)
[2023-01-21] MEDS: CLOPIDOGREL 75 MG TAB PO SCH (10:02)
[2023-01-21] MEDS: amLODIPine 10 MG TAB PO SCH (10:02)
[2023-01-21] MEDS: buPROPion SR 100 MG TABLET.ER PO SCH (10:02)
[2023-01-21] MEDS: LOSARTAN 25 MG TAB PO SCH (10:02)
[2023-01-21] MEDS: FENOFIBRATE 54 MG TAB PO SCH (10:02)
[2023-01-21] MEDS: NYSTATIN 100,000UNIT/GM CREAM 30 GM TUBE TOPICAL SCH ×2 (10:02→22:08)
[2023-01-21] MEDS: ASPIRIN 81 MG PO SCH (10:02)
--- NOTE | 2023-01-21 12:34 | P.CRDCN ---
History of Present Illness Consult date: 01/21/23 Requesting physician: Nima Reynolds Reason for Consult (text): severe coronary calcifications Chief complaint: failure to thrive History of present illness: This is a pleasant 59-year-old gentleman who follows with Dr. Matthews in the office. He has a history of diabetic neuropathy, hypertension, hyperlipidemia, diabetes type 2, CAD status post PCI of RCA and August 2020 with subsequent s troke. In August 2020 presented to the hospital chest pain and difficulty breathing requiring intubation. EKG showed evidence of STEMI and he underwent left heart catheterization and PCI of RCA with mild disease of the left and 100% RCA stenosis with successful PCI of the mid RCA and at that time no reflow of the PDA despite aspiration thrombectomy. During his hospitalization duration he subsequently had a CVA with right sided hemiplegia. He required tracheostomy and PEG tube. Echocardiogram showed an ejection fraction of 40-45% with moderate to severe aortic stenosis with possible degree of low flow gradient ES, R VSP 50. TE at that time showed severe aortic stenosis with mild aortic regurgitation, mild to moderate MR and no shunting across the ventricular atrial septum and normal appearance of the left atrial appendage. Patient was apparently sent to an extended care facility for about 4 rehab but has subsequently been sent home. According to the patient he was brought in as it's becoming progressively more difficult for his family to care for him. We were asked to the patient in consultation as a computed tomography scan showed evidence of severe coronary artery calcifications. Of note the patient did undergo an echocardiogram in November of this year which showed an ejection fraction of 45% with mild aortic regurgitation and moderate to severe aortic stenosis possible low flow gradient with dimension index of 0.21. At that time it was discussed that the aortic valve will likely need to be replaced at some point down the line but continue to monitor for now. Of note the patient has had no complaints of chest discomfort. His breathing has been stable. He de nies any edema. Denies any orthopnea or PND. He's had no palpitations. He's had no dizziness, lightheadedness or syncope. His activity remains significantly limited due to his right-sided hemiplegia he is mostly in a wheelchair. Past Medical History Past Medical History: Asthma, CVA/TIA, Diabetes Mellitus, Myocardial Infarction ([place]), Osteoarthritis (OA) Additional Past Medical History / Comment(s): HX OF BACK SURGERY WITH BACK PAIN, DIABETIC NEUROPATHY, HEART MURMUR., KERATOCONUS., STOOL TEST POSITIVE ., ECZEMA., previous peg tube and trach Last Myocardial Infarction Date:: 08/2022 History of Any Multi-Drug Resistant Organisms: None Reported Date of last positivie culture/infection: 12/19/22 MDRO Source:: stool Past Surgical History: Back Surgery, Heart Catheterization With Stent Additional Past Surgical History / Comment(s): BACK SURGERY WITH DISC REMOVED AND FUSION., VASECTOMY, LEFT GREAT TOE. peg tube, tracheostomy. Past Anesthesia/Blood Transfusion Reactions: No Reported Reaction Date of Last Stent Placement:: 08/2022 Past Psychological History: No Psychological Hx Reported Smoking Status: Never smoker Past Alcohol Use History: None Reported Past Drug Use History: None Reported - Past Family History Mother Family Medical History: No Reported History Medications and Allergies Home Medications Medication Instructions Recorded Confirmed Type Atorvastatin [Lipitor] 40 mg PO HS 08/13/22 01/20/23 History Aspirin 81 mg PO DAILY tab 08/30/22 01/20/23 Rx Clopidogrel [Plavix] 75 mg PO DAILY 10/01/22 01/20/23 History Insulin Glargine,Hum.rec.anlog 20 units SQ BID 10/01/22 01/20/23 History [Lantus Solostar Pen] Losartan [Cozaar] 25 mg PO DAILY 10/01/22 01/20/23 History Albuterol Nebulized [Ventolin 2.5 mg INHALATION RT-Q6H PRN 12/09/22 01/20/23 History Nebulized] Insulin Aspart [NovoLOG Flexpen] See Protocol SQ ACHS 12/09/22 01/20/23 History Multivitamins, Thera [Multivitamin 1 tab PO DAILY 12/09/22 01/20/23 History (formulary)] glipiZIDE [Glucotrol] 5 mg PO DAILY 12/09/22 01/20/23 History Fenofibrate 54 mg PO DAILY 12/18/22 01/20/23 History Albuterol Sulfate [Ventolin HFA] 1 - 2 puff INHALATION RT-Q6H PRN 01/09/23 01/20/23 History DULoxetine HCL [Cymbalta] 60 mg PO DAILY 01/09/23 01/20/23 History Fluticasone Propion/Salmeterol 1 puff INHALATION RT-BID 01/09/23 01/20/23 History [Wixela 500-50 Inhub] Metoprolol Tartrate [Lopressor] 50 mg PO BID 01/09/23 01/20/23 History amLODIPine [Norvasc] 10 mg PO DAILY 01/09/23 01/20/23 History HYDROcodone/APAP 5-325MG [[place] 1 each PO Q6HR PRN #6 tab 01/12/23 01/20/23 Rx 5-325] QUEtiapine [SEROquel] 25 mg PO HS #30 tab 01/12/23 01/20/23 Rx Allergies Allergy/AdvReac Type Severity Reaction Status Date / Time Penicillins Allergy Unknown Verified 01/20/23 07:56 Physical Exam Vitals: Vital Signs Temp Pulse Pulse Resp BP Pulse Ox 01/21/23 11:53 90 01/21/23 11:38 88 01/21/23 11:21 98.3 F 62 16 116/55 96 01/21/23 09:50 92 01/21/23 09:39 90 96 01/21/23 07:14 99.5 F 93 16 124/52 96 01/21/23 02:00 97.6 F 85 18 142/71 92 L 01/20/23 20:00 18 01/20/23 19:59 88 01/20/23 19:45 80 01/20/23 19:06 98.4 F 76 18 127/61 98 01/20/23 15:40 76 01/20/23 15:25 76 Intake and Output 01/20/23 01/21/23 01/21/23 22:59 06:59 14:59 Intake Total 250 Balance 250 Intake: Oral 250 Other: Voiding Method Diaper Diaper Incontinent Incontinent # Voids 1 1 # Bowel Movements 0 PHYSICAL EXAMINATION: This is a 67-year-old gentleman in no apparent distress at the time of my examination. HEENT: Head is atraumatic, normocephalic. Pupils are equal, round. Sclerae anicteric. Conjunctivae are clear. Mucous membranes of the mouth are moist. Neck is supple. Evidence of prior tracheostomy noted. There is no elevated jugular venous pressure. No carotid bruit is heard. CHEST EXAMINATION: Clear to auscultation bilaterally. No wheezes rales or rhonchi. Respirations even and nonlabored. HEART EXAMINATION: Heart regular, positive S1 and S2. Systolic ejection murmur consistent with known history of moderate to severe aortic stenosis. ABDOMEN: Soft, nontender. Bowel sounds are heard. No organomegaly noted. EXTREMITIES: 2+ peripheral pulses with no evidence of peripheral edema and no calf tenderness noted. NEUROLOGIC EXAMINATION: Patient is awake, alert and oriented x3. Right-sided hemiplegia noted. Results 01/19/23 21:57 01/21/23 06:01 Comprehensive Metabolic Panel 01/21/23 Range/Units 06:01 Creatinine 0.43 L (0.66-1.25) mg/dL Current Medications Generic Name Dose Route Start Last Admin Trade Name Freq PRN Reason Stop Dose Admin Hydrocodone Bitart/Acetaminophen 1 each 01/19/23 23:18 Hydrocodone/Apap 5-325mg 1 Each Tab PO Q6HR PRN Pain Albuterol/Ipratropium 3 ml 01/20/23 08:00 01/21/23 11:38 Ipratropium-Albuterol 3 Ml Neb INHALATION 3 ml RT-QID JUANA Administration Amlodipine Besylate 10 mg 01/20/23 09:00 01/21/23 10:02 Amlodipine 10 Mg Tab PO 10 mg DAILY JUANA Administration Aspirin 81 mg 01/20/23 09:00 01/21/23 10:02 Aspirin 81 Mg PO 81 mg DAILY JUANA Administration Atorvastatin Calcium 40 mg 01/20/23 21:00 01/20/23 20:24 Atorvastatin 40 Mg Tab PO 40 mg HS JUANA Administration Budesonide 0.5 mg 01/20/23 08:00 01/21/23 09:39 Budesonide 0.5 Mg/2 Ml Nebu INHALATION 0.5 mg RT-BID JUANA Administration Bupropion HCl 100 mg 01/21/23 09:00 01/21/23 10:02 Bupropion Sr 100 Mg Tablet.Er PO 100 mg DAILY JUANA Administration Clopidogrel Bisulfate 75 mg 01/20/23 09:00 01/21/23 10:02 Clopidogrel 75 Mg Tab PO 75 mg DAILY JUANA Administration Duloxetine HCl 60 mg 01/20/23 09:00 01/21/23 10:01 Duloxetine Hcl 60 Mg Capsule.Dr PO 60 mg DAILY JUANA Administration Fenofibrate 54 mg 01/20/23 09:00 01/21/23 10:02 Fenofibrate 54 Mg Tab PO 54 mg DAILY JUANA Administration Sodium Chloride 1,000 mls @ 75 mls/hr 01/19/23 22:45 01/20/23 20:24 Saline 0.9% IV 75 mls/hr .[id number] JUANA Administration Vancomycin HCl 1,500 mg/ 500 mls @ 167 mls/hr 01/20/23 14:00 01/21/23 06:15 Sodium Chloride IVPB 167 mls/hr Q16H JUANA Administration Losartan Potassium 25 mg 01/20/23 09:00 01/21/23 10:02 Losartan 25 Mg Tab PO 25 mg DAILY JUANA Administration Metoprolol Tartrate 50 mg 01/20/23 09:00 01/21/23 10:01 Metoprolol Tartrate 50 Mg Tab PO 50 mg BID JUANA Administration Multivitamins 1 each 01/20/23 09:00 01/21/23 10:02 Multivitamins, Thera 1 Each Tab PO 1 each DAILY JUANA Administration Naloxone HCl 0.2 mg 01/19/23 22:38 Naloxone 0.4 Mg/Ml 1 Ml Vial IV Q2M PRN Opioid Reversal Nystatin 1 applic 01/21/23 09:45 01/21/23 10:02 Nystatin 100,000unit/Gm Cream 30 Gm Tube TOPICAL 1 applic BID JUANA Administration Protocol Intake and Output 01/20/23 01/21/23 01/21/23 22:59 06:59 14:59 Intake Total 250 Balance 250 Intake: Oral 250 Other: Voiding Method Diaper Diaper Incontinent Incontinent # Voids 1 1 # Bowel Movements 0 01/19/23 21:57 01/21/23 06:01 Assessment and Plan Assessment: #1 coronary artery disease with prior STEMI and PCI of RCA in August 2022 #2 ischemic cardiomyopathy with an ejection fraction of 45% #3 moderate to severe aortic stenosis #4 hypertension #5 hyperlipidemia #6 diabetes mellitus type 2 #7 CVA with right hemiplegia Plan: From cardiology spec of medications were reviewed. Continue current meds including statin, beta olga lidia, and dual antiplatelet therapy. No need for further cardiac workup as an inpatient. Follow up as an outpatient with Dr. Matthews as previously scheduled. At this time we will follow the patient on an as-needed basis. 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 Patient was seen and examined.
--- NOTE | 2023-01-21 15:52 | CA ---
Transthoracic Echo Report Name: Willie Mantilla Age: 67 Gender: M : 1955 Exam Date: 01/21/2023 07:58 Exam Location: [facility] Ht (in): 70 Wt (lb): 180 Ordering Physician: Nima Reynolds MD Attending/Referring Phys: Bioinformatics Assistant Pat Cannon RDCS Procedure CPT: Indications: CAD Cardiac Hx: Technical Quality: Fair Contrast 1: Total Dose (mL): Contrast 2: Total Dose (mL): MEASUREMENTS (Male / Female) Normal Values 2D ECHO LV Diastolic Diameter PLAX 4.1 cm 4.2 - 5.9 / 3.9 - 5.3 cm LV Systolic Diameter PLAX 3.4 cm IVS Diastolic Thickness 1.5 cm 0.6 - 1.0 / 0.6 - 0.9 cm LVPW Diastolic Thickness 1.4 cm 0.6 - 1.0 / 0.6 - 0.9 cm LV Relative Wall Thickness 0.7 RV Internal Dim ED PLAX 2.8 cm LVOT Diameter 2.2 cm LA Systolic Diameter LX 3.9 cm 3.0 - 4.0 / 2.7 - 3.8 cm LA Volume 87.9 cm??? 18 - 58 / 22 - 52 cm??? M-MODE Aortic Root Diameter MM 3.4 cm MV E Point Septal Separation 0.7 cm AV Cusp Separation MM 1.2 cm DOPPLER AV Peak Velocity 454.7 cm/s AV Peak Gradient 82.7 mmHg AV Mean Velocity 313.0 cm/s AV Mean Gradient 45.5 mmHg AV Velocity Time Integral 96.0 cm AI Peak Velocity 348.4 cm/s AI Peak Gradient 48.5 mmHg AI Pressure Half Time 348.0 ms LVOT Peak Velocity 120.4 cm/s LVOT Peak Gradient 5.8 mmHg AV Area Cont Eq pk 1.0 cm??? MV Area PHT 3.5 cm??? Mitral E Point Velocity 93.0 cm/s Mitral A Point Velocity 148.9 cm/s Mitral E to A Ratio 0.6 MV Deceleration Time 214.8 ms MV E' Velocity 7.1 cm/s Mitral E to MV E' Ratio 13.2 TR Peak Velocity 283.8 cm/s TR Peak Gradient 32.2 mmHg Right Ventricular Systolic Press 37.2 mmHg FINDINGS Left Ventricle Left ventricular ejection fraction is estimated at 55-60 %. Left ventricular cavity size normal. Moderate concentric left ventricular hypertrophy.left ventricular cavity size normal. Right Ventricle Normal right ventricular size and function. Mild pulmonary hypertension. Right Atrium Normal right atrial size. Left Atrium Severely increased left atrial volume. Mildly increased left atrial area. Mitral Valve Mitral valve thickened. Mild mitral annular calcification. Mild to moderate mitral regurgitation. Aortic Valve Moderate Aortic valve sclerosis. Severe aortic stenosis with a peak velocity of 4.5 m/s, peak gradient 83 mmHg, mean gradient 46 mmHg, and estimated aortic valve area of 1.0 cm???. Moderate aortic regurgitation. Tricuspid Valve Structurally normal tricuspid valve. Mild tricuspid regurgitation. Pulmonic Valve Structurally normal pulmonic valve. No pulmonic regurgitation. Pericardium Small pericardial effusion by LV. Aorta Normal size aortic root and proximal ascending aorta. CONCLUSIONS 1. Normal left ventricle size and systolic function 2. Severe aortic stenosis with moderate aortic regurgitation 3. [id number] mitral regurgitation 4. Mild tricuspid regurgitation Previewed by: Dr. Demetrius Amador MD (Electronically Signed) Final Date: 21 January 2023 15:51
[2023-01-21] MEDS: SODIUM CHLORIDE 0.9% 1,000 ML IV SCH (18:12)
[2023-01-21] MEDS: ATORVASTATIN 40 MG TAB PO SCH (22:08)
--- NOTE | 2023-01-21 23:24 | P.PN ---
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 history of this very failure requiring tracheostomy subsequently worsened has been brought in the hospital for generalized weakness and debility and concern for possible cellulitis to the previous trach site patient did have a CT of the soft tissue of the neck did not show any evidence of abscess On today's evaluation that is 01/21/2023, the patient denies having any fever or any chills he is breathing comfortably no chest pain or shortness with occasional cough denies pain to the neck area or any drainage Objective - Vital Signs Vital signs: Vital Signs Temp 99.5 F 01/21/23 07:14 Pulse 93 01/21/23 07:14 Resp 16 01/21/23 07:14 BP 124/52 01/21/23 07:14 Pulse Ox 96 01/21/23 07:14 FiO2 Intake & Output 01/20/23 01/21/23 01/21/23 18:59 06:59 18:59 Intake Total 250 Balance 250 Weight 81.647 kg Intake: Oral 250 Other: Voiding Method Diaper Incontinent # Voids 1 1 # Bowel Movements 0 - Exam GENERAL DESCRIPTION: An elderly male lying in bed in no distress HEENT: Previous track side with minimal erythema RESPIRATORY SYSTEM: Unlabored breathing , decreased breath sounds at bases HEART: S1 S2 regular rate and rhythm , ABDOMEN: Soft , no tenderness EXTREMITIES: No edema feet Exam completed with the help of GROUNDSKEEPER - Labs CBC & Chem 7: 01/19/23 21:57 01/21/23 06:01 Labs: Abnormal Lab Results - Last 24 Hours (Table) 01/20/23 01/21/23 Range/Units 00:35 06:01 Creatinine 0.43 L (0.66-1.25) mg/dL Procalcitonin 0.11 H (0.02-0.09) ng/mL Assessment and Plan (1) Leukocytosis Current Visit: Yes Status: Acute Code(s): D72.829 - ELEVATED WHITE BLOOD CELL COUNT, UNSPECIFIED SNOMED Code(s): 699230063 Plan: 1patient was in the hospital with debility weakness and there was concern for possible cellulitis to previous trach site patient did have minimal erythema at that site but no drainage was noticed. Did not have any fever however admitted have elevated white count 11.9 with a left shift CT of the chest was negative for any pneumonia abdominal supplemental examination 2-penicillin allergy that would limit the number of antibiotics safe to use 3-inflammatory markers mildly elevated , UA not collected 4- CT of the soft tissue of the neck with no evidence of any abscess or cellulitis Patient to continue with vancomycin we will apply nystatin cream to the previous trach site erythematous area This was telehealth visit Time with Patient: Less than 30
[2023-01-22 05:44] LABS: African American GFR (CKD) >90 (>60 ml/min/1.73 sqM); Anion Gap 7 mmol/L; Blood Urea Nitrogen 9 mg/dL (9-20); Calcium 8.7 mg/dL (8.4-10.2); Carbon Dioxide 24 mmol/L (22-30); Chloride 106 mmol/L (98-107); Glucose 126 mg/dL (74-99); Non-African American GFR(CKD) >90 (>60 ml/min/1.73 sqM); Potassium 3.3 mmol/L (3.5-5.1); Sodium 137 mmol/L (137-145)
[2023-01-22] MEDS: HYDROcodone/APAP 5-325MG 1 EACH TAB PO PRN (06:30)
[2023-01-22] MEDS: IPRATROPIUM-ALBUTEROL 3 ML NEB INHALATION SCH ×4 (08:11→20:32)
[2023-01-22] MEDS: BUDESONIDE 0.5 MG/2 ML NEBU INHALATION SCH ×2 (08:12→20:32)
--- NOTE | 2023-01-22 08:12 | P.CNNES ---
History of Present Illness Consult date: 01/21/23 Requesting physician: Nima Reynolds Reason for Consult: Altered mental status History of Present Illness: This is a telemedicine neurology consultation performed today on 01/21/2023. Patient is a 67-year-old male who has history of CVA in August 2022, with subsequent right hemiplegia, bedbound, also has history of diabetes, hypertension was brought to the hospital by ambulance on , 01/19/2023 at 9:06 PM for possible neck infection. EMS flow sheet not available in the chart. Per nursing report, patient lives with his girlfriend, is wheelchair bound 4 months. He does have hypertension, diabetes but has never smoked and does not drink alcohol. Patient's vitals on arrival blood pressure 140/83, pulse rate 110, temperature 98.6. Blood tests showed WBC 11.9, hemoglobin 13.7, platelets 280. Chem-[address] is normal. Procalcitonin 0.11. CT head revealed no acute intracranial process. There is mild to moderate diffuse age-related cerebral atrophy and moderate chronic small vessel ischemic change redemonstrated no significant change from prior. Possible bilateral mastoiditis again seen. Correlate clinically. I personally reviewed the CT head. Evidence of old ischemic stroke involving the left centrum semiovale in the frontal parietal region, lacunar stroke in the left thalamus, right caudate and the right cerebellum. I personally reviewed CT head from 08/20/2022, and all these lesions are chronic, since the stroke from 08/17/2022. CT of the chest revealed mild left basilar linear scarring and/or atelectasis. No suspicious focus consolidation. Suspect underlying pulmonary artery hypertension. CT of the soft tissue of neck revealed no significant inflammatory change or focal fluid collection to suggest abscess in the anterior soft tissues at the level of prior tracheostomy. Abnormal upper left neck adenopathy with suspicion for inferior left parotid solid mass versus abnormal intraparotid lymph node felt less likely. Neoplasm needs to be considered. Advised ENT consultation. Consider PET CT. Patient at present denies any pain, any numbness or tingling. He is weak all over. Patient admits to weight loss from 240 pounds down to 180. Patient is known to me from previous admission to the hospital from 08/17/2022. He had acute to subacute ischemic stroke in different territories which is suggestive of embolic/cardiac source. Patient had a LUCA which was negative for thrombus or shunting. Patient was noted to be right hemiplegic and significant left hemiparesis due to stroke. Patient underwent tracheostomy and PEG placement at that time. Patient was placed on aspirin 81 mg and Brilinta 90 mg twice a day at that time. Hemoglobin A1c was 9.2 with LDL 81. Patient was on Lipitor 40 mg. Patient's daughter has reported that patient has no history of tobacco use, did not take any antiplatelet medication prior to the admission in August 2022. Review of Systems Constitutional: Reports weight loss, Denies chills, Denies fever Eyes: denies blurred vision, denies pain Ears: deny: decreased hearing, ear discharge, earache Ears, nose, mouth and throat: Denies headache, Denies sore throat Cardiovascular: Denies chest pain, Denies shortness of breath Respiratory: Reports cough, Reports cough with sputum Gastrointestinal: Denies abdominal pain, Denies diarrhea, Denies nausea, Denies vomiting Genitourinary: Denies incontinence Musculoskeletal: Reports gait dysfunction, Reports muscle weakness, Denies low back pain, Denies neck pain Integumentary: Reports rash, Denies pruritus Neurological: Reports weakness, Denies double vision, Denies loss of vision, Denies numbness, Denies seizures, Denies vertigo, Denies visual changes Psychiatric: Reports depression, Denies memory loss Endocrine: Reports weight change Past Medical History Past Medical History: Asthma, CVA/TIA, Diabetes Mellitus, Myocardial Infarction (MS), Osteoarthritis (OA) Additional Past Medical History / Comment(s): HX OF BACK SURGERY WITH BACK PAIN, DIABETIC NEUROPATHY, HEART MURMUR., KERATOCONUS., STOOL TEST POSITIVE ., ECZEMA., previous peg tube and trach Last Myocardial Infarction Date:: 08/2022 History of Any Multi-Drug Resistant Organisms: None Reported Date of last positivie culture/infection: 12/19/22 MDRO Source:: stool Past Surgical History: Back Surgery, Heart Catheterization With Stent Additional Past Surgical History / Comment(s): BACK SURGERY WITH DISC REMOVED AND FUSION., VASECTOMY, LEFT GREAT TOE. peg tube, tracheostomy. Past Anesthesia/Blood Transfusion Reactions: No Reported Reaction Date of Last Stent Placement:: 08/2022 Past Psychological History: No Psychological Hx Reported Smoking Status: Never smoker Past Alcohol Use History: None Reported Past Drug Use History: None Reported - Past Family History Mother Family Medical History: No Reported History Medications and Allergies Home Medications Medication Instructions Recorded Confirmed Type Atorvastatin [Lipitor] 40 mg PO HS 08/13/22 01/20/23 History Aspirin 81 mg PO DAILY tab 08/30/22 01/20/23 Rx Clopidogrel [Plavix] 75 mg PO DAILY 10/01/22 01/20/23 History Insulin Glargine,Hum.rec.anlog 20 units SQ BID 10/01/22 01/20/23 History [Lantus Solostar Pen] Losartan [Cozaar] 25 mg PO DAILY 10/01/22 01/20/23 History Albuterol Nebulized [Ventolin 2.5 mg INHALATION RT-Q6H PRN 12/09/22 01/20/23 History Nebulized] Insulin Aspart [NovoLOG Flexpen] See Protocol SQ ACHS 12/09/22 01/20/23 History Multivitamins, Thera [Multivitamin 1 tab PO DAILY 12/09/22 01/20/23 History (formulary)] glipiZIDE [Glucotrol] 5 mg PO DAILY 12/09/22 01/20/23 History Fenofibrate 54 mg PO DAILY 12/18/22 01/20/23 History Albuterol Sulfate [Ventolin HFA] 1 - 2 puff INHALATION RT-Q6H PRN 01/09/23 01/20/23 History DULoxetine HCL [Cymbalta] 60 mg PO DAILY 01/09/23 01/20/23 History Fluticasone Propion/Salmeterol 1 puff INHALATION RT-BID 01/09/23 01/20/23 History [[place]ela 500-50 Inhub] Metoprolol Tartrate [Lopressor] 50 mg PO BID 01/09/23 01/20/23 History amLODIPine [Norvasc] 10 mg PO DAILY 01/09/23 01/20/23 History HYDROcodone/APAP 5-325MG [[place] 1 each PO Q6HR PRN #6 tab 01/12/23 01/20/23 Rx 5-325] QUEtiapine [SEROquel] 25 mg PO HS #30 tab 01/12/23 01/20/23 Rx Allergies Allergy/AdvReac Type Severity Reaction Status Date / Time Penicillins Allergy Unknown Verified 01/20/23 07:56 Physical Examination - Vital Signs Vital Signs: Vital Signs Temp Pulse Pulse Resp BP Pulse Ox 01/21/23 11:38 88 01/21/23 11:21 98.3 F 62 16 116/55 96 01/21/23 09:50 92 01/21/23 09:39 90 96 01/21/23 07:14 99.5 F 93 16 124/52 96 01/21/23 02:00 97.6 F 85 18 142/71 92 L 01/20/23 20:00 18 01/20/23 19:59 88 01/20/23 19:45 80 01/20/23 19:06 98.4 F 76 18 127/61 98 01/20/23 15:40 76 01/20/23 15:25 76 01/20/23 12:12 68 01/20/23 12:00 72 Intake and Output 01/20/23 01/21/23 01/21/23 22:59 06:59 14:59 Intake Total 250 Balance 250 Intake: Oral 250 Other: Voiding Method Diaper Diaper Incontinent Incontinent # Voids 1 1 # Bowel Movements 0 Patient is an elderly male, laying comfortably in the bed, in no acute distress. Patient is alert awake. He could not tell the current month, whereas he said it was 2012. He knows he is in [facility] but thinks is in the [facility]. He knows name of the current president Mr. Danielson. oriented to time place and person. Speech and language functions are normal. Patient can name and repeat very well. No aphasia or dysarthria. He has a slightly hoarse voice. Attention, concentration intact and fund of knowledge is slightly limited. On cranial nerve examination, pupils are equal, round and reacting to light, visual shaffer are full on confrontation, with no neglect on double simultaneous stimulation. Extraocular muscles are intact with no nystagmus. Face is symmetric, tongue protrudes to the midline. Palatal elevation and sensation normal, hearing intact and shoulder shrug absent on the right. His facial sensation are normal. On muscle strength testing, patient has severe weakness of the right side, with no movement in the right upper limb. Muscle strength is (right/left) deltoid 0/3, triceps 0/3+, biceps 0/3+ grade 0/4, hip flexion 2/3+, ankle dorsiflexion 2/5, plantarflexion 3+/5. Deep tendon reflexes are (right/left) biceps 2/1, brachioradialis 2/1, knee 2/1 and plantar is flat on the right, but upgoing on the left. Sensory to touch has some inconsistent response, difficult to assess. Cerebellar function showed no ataxia for [id number] testing on the left, cannot perform on the right. Tone of muscles decrease in the right side, although stiff at the fusing machine operator and fingers. Gait deferred.. On general examination, there is no carotid bruit or murmur, S1-S2 audible. Chest is clear on consultation. Abdomen is soft nontender. No organomegaly, bowel sounds present. Peripheral pulses are present. No edema. Results - Laboratory Findings CBC and BMP: 01/22/23 04:38 01/22/23 04:38 Abnormal Lab Findings: Abnormal Labs 01/19/23 01/19/23 01/20/23 21:57 21:57 00:35 WBC 11.9 H Neutrophils # 10.4 H Lymphocytes # 0.8 L Creatinine Glucose 127 H Albumin 2.8 L Procalcitonin 0.11 H 01/21/23 06:01 WBC Neutrophils # Lymphocytes # Creatinine 0.43 L Glucose Albumin Procalcitonin Assessment and Plan Assessment: * Altered mental status, likely due to metabolic encephalopathy * History of CVA involving bilateral hemispheric region, with subsequent right hemiplegia since August 2022. * Diabetes * Hypertension * CAD with history of STEMI in August 2022. * Congestive heart failure due to ischemic cardiomyopathy * Moderate to severe aortic stenosis * History of PEG and tracheostomy, which has been removed. Plan: * Patient's neurological examination is stable as compared to the last examination from August 2022. No evidence of a new stroke. * Continue aspirin 81 mg, Plavix 75 mg daily. * Lipid panel 08/18/2022 with cholesterol 123, LDL 81, HDL 16 and triglycerides 124. Continue Lipitor 40 mg daily. * Hemoglobin A1c 6.1, on 01/10/2023. * 2-D echo revealed normal left ventricular size and systolic function with EF 55-60%. Severe aortic stenosis with moderate aortic regurgitation, mild to moderate mitral regurgitation. * CTA from 08/22/2022 revealed at least 50% stenosis of the left carotid bif urcation. * CT head showed possibility of mastoiditis. Patient also has possible parotid mass. ID and ENT on board. * Medical management as per IM, and other specialties on board. * No other neurological workup indicated. * Neurology will sign off. Please reconsult if any concerns. Thank you for the consult. Time with Patient: Greater than 30
[2023-01-22] MEDS: buPROPion SR 100 MG TABLET.ER PO SCH (10:01)
[2023-01-22] MEDS: METOPROLOL TARTRATE 50 MG TAB PO SCH ×2 (10:01→21:15)
[2023-01-22] MEDS: ASPIRIN 81 MG PO SCH (10:01)
[2023-01-22] MEDS: LOSARTAN 25 MG TAB PO SCH (10:02)
[2023-01-22] MEDS: FENOFIBRATE 54 MG TAB PO SCH (10:02)
[2023-01-22] MEDS: DULoxetine HCL 60 MG CAPSULE.DR PO SCH (10:02)
[2023-01-22] MEDS: CLOPIDOGREL 75 MG TAB PO SCH (10:02)
[2023-01-22] MEDS: MULTIVITAMINS, THERA 1 EACH TAB PO SCH (10:02)
[2023-01-22] MEDS: amLODIPine 10 MG TAB PO SCH (10:02)
[2023-01-22] MEDS: NYSTATIN 100,000UNIT/GM CREAM 30 GM TUBE TOPICAL SCH ×2 (10:03→21:19)
[2023-01-22 10:24] LABS: Basophils # (A) 0.02 X 10*3/uL (0.00-0.10); Basophils % (A) 0.3 %; Eosinophils % (A) 2.9 %; HCT 34.1 % (39.6-50.0); HGB 10.9 g/dL (13.0-17.0); Immature Grans, Automated 0.4 %; Lymphocytes # (A) 1.08 X 10*3/uL (0.90-5.00); Lymphocytes % (A) 15.5 %; MCH 28.5 pg (27.0-32.0); Mean Platelet Volume 9.5 fL (9.5-12.2); Monocytes # (A) 0.81 X 10*3/uL (0.20-1.00); Monocytes % (A) 11.6 %; NRBC Per 100 WBC 0 /100 WBCS (0.0-0.0); Neutrophils # (A) 4.82 X 10*3/uL (1.80-7.70); Neutrophils % (A) 69.3 %; Platelet Count 228 X 10*3/uL (140-440); RBC 3.83 X 10*6/uL (4.40-5.60); WBC 6.96 X 10*3/uL (4.50-10.00)
[2023-01-22] MEDS: SODIUM CHLORIDE 0.9% 1,000 ML IV SCH ×2 (10:25→18:40)
[2023-01-22] MEDS: VANCOMYCIN 1,500 MG in SODIUM CHLORIDE 0.9% 500 ML 500 ML IVPB SCH (14:32)
--- NOTE | 2023-01-22 19:45 | P.PN ---
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 history of this very failure requiring tracheostomy subsequently worsened has been brought in the hospital for generalized weakness and debility and concern for possible cellulitis to the previous trach site patient did have a CT of the soft tissue of the neck did not show any evidence of abscess On today's evaluation that is 01/22/2023, the patient remains to be afebrile, the patient is breathing comfortably on 2 L nasal cannula oxygen, the patient denies chest pain or shortness with occasional cough denies pain to the neck area or any drainage Objective - Vital Signs Vital signs: Vital Signs Temp 97.7 F 01/22/23 02:00 Pulse 83 01/22/23 06:47 Resp 20 01/22/23 06:47 BP 135/76 01/22/23 06:47 Pulse Ox 98 01/22/23 06:47 FiO2 Intake & Output 01/21/23 01/22/23 01/22/23 18:59 06:59 18:59 Other: Voiding Method Diaper Diaper Incontinent Incontinent # Voids 1 4 # Bowel Movements 1 1 - Exam GENERAL DESCRIPTION: An elderly male lying in bed in no distress HEENT: Previous track side with minimal erythema RESPIRATORY SYSTEM: Unlabored breathing , decreased breath sounds at bases HEART: S1 S2 regular rate and rhythm , ABDOMEN: Soft , no tenderness EXTREMITIES: No edema feet Exam completed with the help of DEPLOYMENT MANAGER - Labs CBC & Chem 7: 01/22/23 04:38 01/22/23 04:38 Labs: Abnormal Lab Results - Last 24 Hours (Table) 01/22/23 Range/Units 04:38 Potassium 3.3 L (3.5-5.1) mmol/L Creatinine 0.41 L (0.66-1.25) mg/dL Glucose 126 H (74-99) mg/dL Assessment and Plan (1) Leukocytosis Current Visit: Yes Status: Acute Code(s): D72.829 - ELEVATED WHITE BLOOD CELL COUNT, UNSPECIFIED SNOMED Code(s): 830326664 Plan: 1patient was in the hospital with debility weakness and there was concern for possible cellulitis to previous trach site patient did have minimal erythema at that site but no drainage was noticed. Did not have any fever however admitted have elevated white count 11.9 with a left shift CT of the chest was negative for any pneumonia abdominal supplemental examination 2-penicillin allergy that would limit the number of antibiotics safe to use 3-inflammatory markers mildly elevated , UA not collected 4- CT of the soft tissue of the neck with no evidence of any abscess or cellulitis 5Patient white count has normalized, patient to continue with vancomycin along with nystatin cream to the previous trach site erythematous area and monitor clinical course closely This was telehealth visit Time with Patient: Less than 30
[2023-01-22] MEDS: ATORVASTATIN 40 MG TAB PO SCH (21:15)
--- NOTE | 2023-01-22 21:39 | P.PN ---
Subjective Progress Note Date: 01/22/23 This is a telemedicine neurology follow-up performed today on 01/22/2023. Patient is doing much better. Denies headache, no dizziness, no new symptoms. Patient reports to feeling depressed, hopeless feeling. Patient denies any hearing issues, no pain, or dizziness. Objective - Vital Signs Vital signs: Vital Signs Temp 97.6 F 01/22/23 07:20 Pulse 82 01/22/23 11:46 Resp 20 01/22/23 07:20 BP 137/73 01/22/23 07:20 Pulse Ox 98 01/22/23 08:15 FiO2 Intake & Output 01/21/23 01/22/23 01/22/23 18:59 06:59 18:59 Other: Voiding Method Diaper Diaper Diaper Incontinent Incontinent Incontinent # Voids 1 4 # Bowel Movements 1 1 - Exam Patient examination continues to be unchanged. Continues with severe right- sided hemiplegia. Left-side appears normal. - Labs CBC & Chem 7: 01/22/23 04:38 01/22/23 04:38 Labs: Abnormal Lab Results - Last 24 Hours (Table) 01/22/23 01/22/23 Range/Units 04:38 04:38 RBC 3.83 L (4.40-5.60) X 10*6/uL Hgb 10.9 L (13.0-17.0) g/dL Hct 34.1 L (39.6-50.0) % Potassium 3.3 L (3.5-5.1) mmol/L Creatinine 0.41 L (0.66-1.25) mg/dL Glucose 126 H (74-99) mg/dL Assessment and Plan Assessment: * Altered mental status, likely due to metabolic encephalopathy * History of CVA involving bilateral hemispheric region, with subsequent right hemiplegia since August 2022. * Diabetes * Hypertension * CAD with history of STEMI in August 2022. * Congestive heart failure due to ischemic cardiomyopathy * moderate to severe aortic stenosis * History of PEG and tracheostomy, which has been removed. Plan: * Patient's neurological examination is stable as compared to the last examination from August 2022. No evidence of a new stroke. * Continue aspirin 81 mg, Plavix 75 mg daily. * Lipid panel 08/18/2022 with cholesterol 123, LDL 81, HDL 16 and triglycerides 124. Continue Lipitor 40 mg daily. * Hemoglobin A1c 6.1, on 01/10/2023. * 2-D echo revealed normal left ventricular size and systolic function with EF 55-60%. Severe aortic stenosis with moderate aortic regurgitation, mild to moderate mitral regurgitation. * Cardiology seen the patient, recommending continue management and follow-up with Dr. Matthews outpatient. * CTA from 08/22/2022 revealed at least 50% stenosis of the left carotid bifurcation. * CT head showed possibility of mastoiditis. Patient also has possible parotid mass. ID and ENT on board. * Medical management as per IM, and other specialties on board. * No other neurological workup indicated. * Neurology will sign off. Please reconsult if any concerns. Thank you for the consult.
--- NOTE | 2023-01-23 02:07 | P.PN ---
Subjective Progress Note Date: 01/21/23 Patient is a 67-year-old male with a known history of hypertension, hyperlipidemia, diabetic neuropathy, history of coronary disease status post PCI to RCA in August 2020 and subsequently had acute CVA with right-sided hemiplegia.. Patient was sent to [facility] and subsequently sent home. Patient was brought to the hospital due to progressively weakness and difficulty to care for him by family. 01/21/2023 Patient is currently lying in the bed. Awake alert but could not provide any history. No complaints of chest pain or shortness of breath. Currently on room air. Patient does have right-sided hemiplegia and is wheelchair bound at home. Patient has been afebrile. No nausea or vomiting. Tolerating dysphagia level 1 diet. Current on antibiotics in the form of vancomycin. Laboratory data reviewed. Creatinine 0.43 and procalcitonin level is 0.11. Current medications reviewed. Objective - Vital Signs Vital signs: Vital Signs Temp 97.7 F 01/21/23 18:57 Pulse 74 01/21/23 20:29 Resp 18 01/21/23 18:57 BP 106/56 01/21/23 18:57 Pulse Ox 96 01/21/23 18:57 FiO2 Intake & Output 01/21/23 01/21/23 01/22/23 06:59 18:59 06:59 Intake Total 250 Balance 250 Intake: Oral 250 Other: Voiding Method Diaper Diaper Incontinent Incontinent # Voids 1 1 # Bowel Movements 0 1 - Exam PHYSICAL EXAMINATION: Patient is lying in the bed comfortably, no acute distress, awake alert and oriented. Patient is aphasic.. HEENT: Normocephalic. Neck is supple. Pupils reactive. Nostrils clear. Oral cavity is moist. Neck reveals no JVD, carotid bruits, or thyromegaly. CHEST EXAMINATION: Trachea is central. Symmetrical expansion. Lung shaffer clear to auscultation and percussion. CARDIAC: Normal S1, S2 with no gallops. No murmurs ABDOMEN: Soft. Bowel sounds present. Nontender. No organomegaly. No abdominal bruits. Extremities: reveal no edema. No clubbing or cyanosis Neurologically awake, alert, oriented x3. Right-sided hemiplegia. Skin: No rash or skin lesions. Psychiatric: Coperative could not be assessed completely, Musculoskeletal: No joint swelling or deformity. - Labs CBC & Chem 7: 01/22/23 04:38 01/22/23 04:38 Labs: Abnormal Lab Results - Last 24 Hours (Table) 01/21/23 Range/Units 06:01 Creatinine 0.43 L (0.66-1.25) mg/dL Assessment and Plan Assessment: Generalized medical debility and failure to thrive and unable to care by his family. History of CVA with right hemiplegia with prior history of trach and PEG Possible cellulitis at the previous trach site. Cardiomyopathy ischemic ejection fraction 45% Coronary artery with history of stent placement and STEMI Moderate aortic stenosis Hypertension Diabetes type 2 Diabetic peripheral neuropathy Hyperlipidemia DVT prophylaxis with heparin subcu Plan: Patient will be continued on IV hydration with normal saline antibiotics, vancomycin for previous trach site cellulitis.. Follow cultures report. Patient was seen by cardiology and neurology. Continue with statins, dual antiplatelet therapy and beta-blockers. No further cardiac work-up recommended at this time. Follow-up closely in PT OT and possible rehab transfer. Time with Patient: Greater than 30
--- NOTE | 2023-01-23 02:08 | P.PN ---
Subjective Progress Note Date: 01/22/23 Patient is a 67-year-old male with a known history of hypertension, hyperlipidemia, diabetic neuropathy, history of coronary disease status post PCI to RCA in August 2020 and subsequently had acute CVA with right-sided hemiplegia.. Patient was sent to [facility] and subsequently sent home. Patient was brought to the hospital due to progressively weakness and difficulty to care for him by family. 01/21/2023 Patient is currently lying in the bed. Awake alert but could not provide any history. No complaints of chest pain or shortness of breath. Currently on room air. Patient does have right-sided hemiplegia and is wheelchair bound at home. Patient has been afebrile. No nausea or vomiting. Tolerating dysphagia level 1 diet. Current on antibiotics in the form of vancomycin. Laboratory data reviewed. Creatinine 0.43 and procalcitonin level is 0.11. 01/22/2023 Patient is currently resting in bed. Currently on room air. Doing better today. No complaints of headache or dizziness lightheadedness. No chest pain or shortness of breath. Patient feels depressed. Denies any complaints of pain. Afebrile. Laboratory data showed WBC 6.9 hemoglobin 10.9 and platelets 228 sodium 137 potassium 3.3 chloride 106 bicarb is 24 BUN 9 and creatinine 0.41. Patient is being current on vancomycin. Current medications reviewed. Objective - Vital Signs Vital signs: Vital Signs Temp 97.6 F 01/22/23 19:28 Pulse 80 01/22/23 20:52 Resp 17 01/22/23 19:28 BP 128/67 01/22/23 19:28 Pulse Ox 99 01/22/23 19:28 FiO2 Intake & Output 01/22/23 01/22/23 01/23/23 06:59 18:59 06:59 Intake Total 1400 120 Balance 1400 120 Intake: Intake, IV Titration 1400 Amount Sodium Chloride 0.9% 1, 900 000 ml @ 75 mls/hr IV . [id number] [facility] Rx#:[id number] Vancomycin 1,500 mg In 500 Sodium Chloride 0.9% 500 ml 500 ml @ 167 mls/hr IVPB Q16H [facility] Rx#: [id number] Oral 120 Other: Voiding Method Diaper Diaper Diaper Incontinent Incontinent Incontinent # Voids 4 1 1 # Bowel Movements 1 - Exam PHYSICAL EXAMINATION: Patient is lying in the bed comfortably, no acute distress, awake alert and oriented. Patient is aphasic.. HEENT: Normocephalic. Neck is supple. Pupils reactive. Nostrils clear. Oral cavity is moist. Neck reveals no JVD, carotid bruits, or thyromegaly. CHEST EXAMINATION: Trachea is central. Symmetrical expansion. Lung shaffer clear to auscultation and percussion. CARDIAC: Normal S1, S2 with no gallops. No murmurs ABDOMEN: Soft. Bowel sounds present. Nontender. No organomegaly. No abdominal bruits. Extremities: reveal no edema. No clubbing or cyanosis Neurologically awake, alert, oriented x3. Right-sided hemiplegia. Skin: No rash or skin lesions. Psychiatric: Coperative could not be assessed completely, Musculoskeletal: No joint swelling or deformity. - Labs CBC & Chem 7: 01/22/23 04:38 01/22/23 04:38 Labs: Abnormal Lab Results - Last 24 Hours (Table) 01/22/23 01/22/23 Range/Units 04:38 04:38 RBC 3.83 L (4.40-5.60) X 10*6/uL Hgb 10.9 L (13.0-17.0) g/dL Hct 34.1 L (39.6-50.0) % Potassium 3.3 L (3.5-5.1) mmol/L Creatinine 0.41 L (0.66-1.25) mg/dL Glucose 126 H (74-99) mg/dL Assessment and Plan Assessment: Generalized medical debility and failure to thrive and unable to care by his family. History of CVA with right hemiplegia with prior history of trach and PEG Possible cellulitis at the previous trach site. Cardiomyopathy ischemic ejection fraction 45% Coronary artery with history of stent placement and STEMI Moderate aortic stenosis Hypertension Diabetes type 2 Diabetic peripheral neuropathy Hyperlipidemia DVT prophylaxis with heparin subcu Plan: Patient will be continued on IV hydration with normal saline antibiotics, vancomycin for previous trach site cellulitis.. Follow cultures report. Patient was seen by cardiology and neurology. Continue with statins, dual antiplatelet therapy and beta-blockers. No further cardiac work-up recommended at this time. Follow-up closely in PT OT and possible rehab transfer.
[2023-01-23 05:49] LABS: African American GFR (CKD) >90 (>60 ml/min/1.73 sqM); Anion Gap 6 mmol/L; Blood Urea Nitrogen 6 mg/dL (9-20); Calcium 8.8 mg/dL (8.4-10.2); Carbon Dioxide 29 mmol/L (22-30); Chloride 103 mmol/L (98-107); Glucose 139 mg/dL (74-99); Non-African American GFR(CKD) >90 (>60 ml/min/1.73 sqM); Potassium 3.2 mmol/L (3.5-5.1); Sodium 138 mmol/L (137-145)
[2023-01-23] MEDS: VANCOMYCIN 1,500 MG in SODIUM CHLORIDE 0.9% 500 ML 500 ML IVPB SCH ×2 (06:26→21:09)
[2023-01-23] MEDS: BUDESONIDE 0.5 MG/2 ML NEBU INHALATION SCH ×2 (07:50→18:31)
[2023-01-23] MEDS: IPRATROPIUM-ALBUTEROL 3 ML NEB INHALATION SCH ×4 (07:50→18:32)
[2023-01-23] MEDS: MULTIVITAMINS, THERA 1 EACH TAB PO SCH (09:35)
[2023-01-23] MEDS: DULoxetine HCL 60 MG CAPSULE.DR PO SCH (09:35)
[2023-01-23] MEDS: amLODIPine 10 MG TAB PO SCH (09:35)
[2023-01-23] MEDS: FENOFIBRATE 54 MG TAB PO SCH (09:35)
[2023-01-23] MEDS: ASPIRIN 81 MG PO SCH (09:35)
[2023-01-23] MEDS: CLOPIDOGREL 75 MG TAB PO SCH (09:35)
[2023-01-23] MEDS: buPROPion SR 100 MG TABLET.ER PO SCH (09:35)
[2023-01-23] MEDS: HEPARIN SODIUM,PORCINE/PF 5,000 UNIT/0.5 ML SYRINGE SQ SCH ×2 (09:35→16:45)
[2023-01-23] MEDS: METOPROLOL TARTRATE 50 MG TAB PO SCH ×2 (09:36→21:09)
[2023-01-23] MEDS: LOSARTAN 25 MG TAB PO SCH (09:36)
[2023-01-23] MEDS: NYSTATIN 100,000UNIT/GM CREAM 30 GM TUBE TOPICAL SCH ×2 (09:36→21:14)
[2023-01-23] MEDS: SODIUM CHLORIDE 0.9% 1,000 ML IV SCH ×2 (09:37→21:14)
[2023-01-23 09:55] LABS: Basophils # (A) 0.04 X 10*3/uL (0.00-0.10); Basophils % (A) 0.7 %; Eosinophils # (A) 0.23 X 10*3/uL (0.04-0.35); Eosinophils % (A) 3.9 %; HCT 35.1 % (39.6-50.0); HGB 11.3 g/dL (13.0-17.0); Immature Grans, Automated 0.2 %; Lymphocytes # (A) 1.31 X 10*3/uL (0.90-5.00); MCH 28.6 pg (27.0-32.0); MCHC 32.2 g/dL (32.0-37.0); MCV 88.9 fL (80.0-97.0); Mean Platelet Volume 9.3 fL (9.5-12.2); Monocytes # (A) 0.69 X 10*3/uL (0.20-1.00); Monocytes % (A) 11.6 %; NRBC Per 100 WBC 0 /100 WBCS (0.0-0.0); Neutrophils # (A) 3.67 X 10*3/uL (1.80-7.70); Neutrophils % (A) 61.6 %; Platelet Count 282 X 10*3/uL (140-440); RBC 3.95 X 10*6/uL (4.40-5.60); RDW 13.9 % (11.5-14.5); WBC 5.95 X 10*3/uL (4.50-10.00)
--- NOTE | 2023-01-23 11:58 | P.PN ---
Subjective Progress Note Date: 01/23/23 Principal diagnosis: Leukocytosis and possible neck Cellulitis Patient is a 67-year-old male with a past medical history significant for right hemiplegia secondary to CVA history of this very failure requiring tracheostomy subsequently worsened has been brought in the hospital for generalized weakness and debility and concern for possible cellulitis to the previous trach site patient did have a CT of the soft tissue of the neck did not show any evidence of abscess On today's evaluation that is 01/23/2023, the patient continues to be afebrile, the patient is breathing comfortably on 2 L nasal cannula oxygen, the patient denies chest pain or shortness of breath and no significant cough, the patient denies pain to the neck area or any drainage Objective - Vital Signs Vital signs: Vital Signs Temp 97.7 F 01/23/23 00:44 Pulse 76 01/23/23 11:19 Resp 16 01/23/23 07:47 BP 131/66 01/23/23 07:47 Pulse Ox 92 L 01/23/23 07:50 FiO2 Intake & Output 01/22/23 01/23/23 01/23/23 18:59 06:59 18:59 Intake Total 1400 120 Output Total 200 Balance 1400 -80 Intake: Intake, IV Titration 1400 Amount Sodium Chloride 0.9% 1, 900 000 ml @ 75 mls/hr IV . [id number] [facility] Rx#:[id number] Vancomycin 1,500 mg In 500 Sodium Chloride 0.9% 500 ml 500 ml @ 167 mls/hr IVPB Q16H [facility] Rx#: [id number] Oral 120 Output: Urine 200 Other: Voiding Method Diaper Diaper Diaper Incontinent Incontinent Incontinent # Voids 1 1 2 - Exam GENERAL DESCRIPTION: An elderly male lying in bed in no distress HEENT: Previous track side with minimal erythema RESPIRATORY SYSTEM: Unlabored breathing , decreased breath sounds at bases HEART: S1 S2 regular rate and rhythm , ABDOMEN: Soft , no tenderness EXTREMITIES: No edema feet - Labs CBC & Chem 7: 01/23/23 05:23 01/23/23 05:22 Labs: Abnormal Lab Results - Last 24 Hours (Table) 01/23/23 01/23/23 Range/Units 05:22 05:23 RBC 3.95 L (4.40-5.60) X 10*6/uL Hgb 11.3 L (13.0-17.0) g/dL Hct 35.1 L (39.6-50.0) % MPV 9.3 L (9.5-12.2) fL Potassium 3.2 L (3.5-5.1) mmol/L BUN 6 L (9-20) mg/dL Creatinine 0.42 L (0.66-1.25) mg/dL Glucose 139 H (74-99) mg/dL Assessment and Plan (1) Leukocytosis Current Visit: Yes Status: Acute Code(s): D72.829 - ELEVATED WHITE BLOOD CELL COUNT, UNSPECIFIED SNOMED Code(s): 765274728 Plan: 1patient was in the hospital with debility weakness and there was concern for possible cellulitis to previous trach site patient did have minimal erythema at that site but no drainage was noticed. Did not have any fever however admitted have elevated white count 11.9 with a left shift CT of the chest was negative for any pneumonia abdominal supplemental examination 2-penicillin allergy that would limit the number of antibiotics safe to use 3-inflammatory markers mildly elevated , UA not collected 4- CT of the soft tissue of the neck with no evidence of any abscess or celluli tis 5Patient white count has normalized, patient to continue with vancomycin along with nystatin cream to the previous trach site erythematous area and short course of oral doxycycline on discharge Time with Patient: Less than 30
[2023-01-23] MEDS: ATORVASTATIN 40 MG TAB PO SCH (21:09)
[2023-01-24] MEDS: HEPARIN SODIUM,PORCINE/PF 5,000 UNIT/0.5 ML SYRINGE SQ SCH ×4 (00:25→23:25)
[2023-01-24 06:42] LABS: African American GFR (CKD) >90 (>60 ml/min/1.73 sqM); Non-African American GFR(CKD) >90 (>60 ml/min/1.73 sqM)
[2023-01-24] MEDS: IPRATROPIUM-ALBUTEROL 3 ML NEB INHALATION SCH ×4 (07:49→19:52)
[2023-01-24] MEDS: BUDESONIDE 0.5 MG/2 ML NEBU INHALATION SCH ×2 (07:49→19:52)
[2023-01-24] MEDS: CLOPIDOGREL 75 MG TAB PO SCH (09:33)
[2023-01-24] MEDS: METOPROLOL TARTRATE 50 MG TAB PO SCH ×2 (09:33→19:59)
[2023-01-24] MEDS: DULoxetine HCL 60 MG CAPSULE.DR PO SCH (09:33)
[2023-01-24] MEDS: LOSARTAN 25 MG TAB PO SCH (09:33)
[2023-01-24] MEDS: MULTIVITAMINS, THERA 1 EACH TAB PO SCH (09:33)
[2023-01-24] MEDS: FENOFIBRATE 54 MG TAB PO SCH (09:33)
[2023-01-24] MEDS: ASPIRIN 81 MG PO SCH (09:33)
[2023-01-24] MEDS: amLODIPine 10 MG TAB PO SCH (09:33)
[2023-01-24] MEDS: buPROPion SR 100 MG TABLET.ER PO SCH (09:33)
[2023-01-24] MEDS: NYSTATIN 100,000UNIT/GM CREAM 30 GM TUBE TOPICAL SCH ×2 (09:34→19:59)
[2023-01-24] MEDS: SODIUM CHLORIDE 0.9% 1,000 ML IV SCH (09:35)
--- NOTE | 2023-01-24 12:35 | P.PN ---
Subjective Progress Note Date: 01/24/23 Principal diagnosis: Leukocytosis and possible neck Cellulitis Patient is a 67-year-old male with a past medical history significant for right hemiplegia secondary to CVA history of this very failure requiring tracheostomy subsequently worsened has been brought in the hospital for generalized weakness and debility and concern for possible cellulitis to the previous trach site patient did have a CT of the soft tissue of the neck did not show any evidence of abscess On today's evaluation that is 01/24/2023, the patient remains to be afebrile, the patient is breathing comfortably on 2 L nasal cannula oxygen, the patient denies chest pain or shortness of breath and no significant cough, the patient denies pain to the neck area and no further drainage has been reported no abdominal pain or diarrhea Objective - Vital Signs Vital signs: Vital Signs Temp 97.7 F 01/24/23 07:09 Pulse 80 01/24/23 11:38 Resp 19 01/24/23 07:09 BP 155/82 01/24/23 07:09 Pulse Ox 100 01/24/23 07:49 FiO2 Intake & Output 01/23/23 01/24/23 01/24/23 18:59 06:59 18:59 Intake Total 1400 120 Balance 1400 120 Weight 81.647 kg Intake: Intake, IV Titration 1400 Amount Sodium Chloride 0.9% 1, 900 000 ml @ 75 mls/hr IV . [id number] [facility] Rx#:[id number] Vancomycin 1,500 mg In 500 Sodium Chloride 0.9% 500 ml 500 ml @ 167 mls/hr IVPB Q16H [facility] Rx#: [id number] Oral 120 Other: Voiding Method Diaper Diaper Diaper Incontinent Incontinent Incontinent # Voids 1 1 - Exam GENERAL DESCRIPTION: An elderly male lying in bed in no distress HEENT: Previous track side erythema has significantly decreased no drainage RESPIRATORY SYSTEM: Unlabored breathing , decreased breath sounds at bases HEART: S1 S2 regular rate and rhythm , ABDOMEN: Soft , no tenderness EXTREMITIES: No edema feet - Labs CBC & Chem 7: 01/23/23 05:23 01/24/23 05:59 Labs: Abnormal Lab Results - Last 24 Hours (Table) 01/24/23 Range/Units 05:59 Creatinine 0.42 L (0.66-1.25) mg/dL Assessment and Plan (1) Leukocytosis Current Visit: Yes Status: Acute Code(s): D72.829 - ELEVATED WHITE BLOOD CELL COUNT, UNSPECIFIED SNOMED Code(s): 270295842 Plan: 1patient was in the hospital with debility weakness and there was concern for possible cellulitis to previous trach site patient did have minimal erythema at that site but no drainage was noticed. Did not have any fever however admitted have elevated white count 11.9 with a left shift CT of the chest was negative for any pneumonia abdominal supplemental examination 2-penicillin allergy that would limit the number of antibiotics safe to use 3-inflammatory markers mildly elevated 4- CT of the soft tissue of the neck with no evidence of any abscess or cellulitis 5Patient white count has normalized, patient currently being treated with vancomycin along with nystatin cream to the previous trach site erythematous area plan is finish therapy with short course of oral doxycycline on discharge Time with Patient: Less than 30
[2023-01-24] MEDS: VANCOMYCIN 1,500 MG in SODIUM CHLORIDE 0.9% 500 ML 500 ML IVPB SCH (15:43)
[2023-01-24] MEDS: POTASSIUM CHLORIDE ER 20 MEQ TAB.ER PO SCH (19:59)
[2023-01-24] MEDS: ATORVASTATIN 40 MG TAB PO SCH (19:59)
[2023-01-24] MEDS: HYDROcodone/APAP 5-325MG 1 EACH TAB PO PRN (23:27)
--- NOTE | 2023-01-25 03:26 | PN ---
PROGRESS NOTE SUBJECTIVE: He has been seen by Neurology and Infectious Disease. He is getting much better from mental status point. He has severe right-sided hemiplegia. He remains on oxygen. He has hypokalemia, potassium of 3.1, 3.3, we are going to replace that. Start him on potassium 20 mEq today. He has a history of CVA with bilateral hemispheric regions. He is much more alert and talkative. He has ischemic cardiomyopathy, moderate to severe aortic stenosis, history of PEG and tracheostomy which has been removed. He is eating with family's help. His diabetes and hypertension has been reviewed. He continues on aspirin and Plavix. He is stable. He has no evidence of a new stroke. Continue on current treatment. He has good ejection fraction, severe aortic stenosis. Oxygen is helping him tremendously. He will continue with this. Possibly mastoiditis and possibly a parotid mass. Wait for Infectious Disease and ENT. PROGNOSIS: Guarded. MMSARAHL / DAINN: [id number] /
[2023-01-25] MEDS: VANCOMYCIN 1,500 MG in SODIUM CHLORIDE 0.9% 500 ML 500 ML IVPB SCH ×2 (05:37→21:48)
[2023-01-25] MEDS: SODIUM CHLORIDE 0.9% 1,000 ML IV SCH ×2 (05:49→08:55)
[2023-01-25] MEDS: BUDESONIDE 0.5 MG/2 ML NEBU INHALATION SCH ×2 (07:58→19:38)
[2023-01-25] MEDS: IPRATROPIUM-ALBUTEROL 3 ML NEB INHALATION SCH ×4 (07:58→19:38)
[2023-01-25] MEDS: HEPARIN SODIUM,PORCINE/PF 5,000 UNIT/0.5 ML SYRINGE SQ SCH ×3 (08:53→23:13)
[2023-01-25] MEDS: FENOFIBRATE 54 MG TAB PO SCH (08:54)
[2023-01-25] MEDS: buPROPion SR 100 MG TABLET.ER PO SCH (08:54)
[2023-01-25] MEDS: METOPROLOL TARTRATE 50 MG TAB PO SCH ×2 (08:54→20:42)
[2023-01-25] MEDS: DULoxetine HCL 60 MG CAPSULE.DR PO SCH (08:54)
[2023-01-25] MEDS: CLOPIDOGREL 75 MG TAB PO SCH (08:54)
[2023-01-25] MEDS: amLODIPine 10 MG TAB PO SCH (08:54)
[2023-01-25] MEDS: LOSARTAN 25 MG TAB PO SCH (08:54)
[2023-01-25] MEDS: ASPIRIN 81 MG PO SCH (08:54)
[2023-01-25] MEDS: MULTIVITAMINS, THERA 1 EACH TAB PO SCH (08:54)
[2023-01-25] MEDS: POTASSIUM CHLORIDE ER 20 MEQ TAB.ER PO SCH (08:54)
[2023-01-25] MEDS: NYSTATIN 100,000UNIT/GM CREAM 30 GM TUBE TOPICAL SCH ×2 (08:55→20:42)
[2023-01-25 09:16] LABS: African American GFR (CKD) >90 (>60 ml/min/1.73 sqM); Non-African American GFR(CKD) >90 (>60 ml/min/1.73 sqM)
--- NOTE | 2023-01-25 12:55 | P.PN ---
Subjective Progress Note Date: 01/25/23 Principal diagnosis: Leukocytosis and possible neck Cellulitis Patient is a 67-year-old male with a past medical history significant for right hemiplegia secondary to CVA history of this very failure requiring tracheostomy subsequently worsened has been brought in the hospital for generalized weakness and debility and concern for possible cellulitis to the previous trach site patient did have a CT of the soft tissue of the neck did not show any evidence of abscess On today's evaluation that is 01/25/2023, the patient continues to be afebrile, the patient is breathing comfortably on room air, the patient denies chest pain or shortness of breath and no significant cough, the patient denies pain to the neck area and no further drainage has been reported no abdominal pain or diarrhea, feeling better wants to go home Objective - Vital Signs Vital signs: Vital Signs Temp 98.2 F 01/25/23 07:24 Pulse 74 01/25/23 12:08 Resp 18 01/25/23 07:24 BP 153/85 01/25/23 07:24 Pulse Ox 97 01/25/23 07:59 FiO2 Intake & Output 01/24/23 01/25/23 01/25/23 18:59 06:59 18:59 Intake Total 1490 Balance 1490 Intake: Intake, IV Titration 900 Amount Sodium Chloride 0.9% 1, 900 000 ml @ 75 mls/hr IV . [id number] [facility] Rx#:[id number] Oral 590 Other: Voiding Method Diaper Diaper Diaper Incontinent Incontinent Incontinent # Voids 5 3 - Exam GENERAL DESCRIPTION: An elderly male lying in bed in no distress HEENT: Previous track side erythema has significantly decreased no drainage RESPIRATORY SYSTEM: Unlabored breathing , decreased breath sounds at bases HEART: S1 S2 regular rate and rhythm , ABDOMEN: Soft , no tenderness EXTREMITIES: No edema feet - Labs CBC & Chem 7: 01/23/23 05:23 01/25/23 08:12 Labs: Abnormal Lab Results - Last 24 Hours (Table) 01/25/23 Range/Units 08:12 Creatinine 0.43 L (0.66-1.25) mg/dL Assessment and Plan (1) Leukocytosis Current Visit: Yes Status: Acute Code(s): D72.829 - ELEVATED WHITE BLOOD CELL COUNT, UNSPECIFIED SNOMED Code(s): 174588834 Plan: 1patient was in the hospital with debility weakness and there was concern for possible cellulitis to previous trach site patient did have minimal erythema at that site but no drainage was noticed. Did not have any fever however admitted have elevated white count 11.9 with a left shift CT of the chest was negative for any pneumonia abdominal supplemental examination 2-penicillin allergy that would limit the number of antibiotics safe to use 3-inflammatory markers mildly elevated 4- CT of the soft tissue of the neck with no evidence of any abscess or cellulitis 5Patient white count has normalized, patient to continue with vancomycin while inpatient along with nystatin cream to the previous trach site erythematous area 6-plan is finish therapy with short course of oral doxycycline 7 days on discharge Time with Patient: Less than 30
[2023-01-25] MEDS: HYDROcodone/APAP 5-325MG 1 EACH TAB PO PRN (18:47)
[2023-01-25] MEDS: DOXYCYCLINE 100 MG CAP PO SCH (20:42)
[2023-01-25] MEDS: ATORVASTATIN 40 MG TAB PO SCH (20:42)
[2023-01-26] MEDS: SODIUM CHLORIDE 0.9% 1,000 ML IV SCH ×3 (00:30→23:35)
[2023-01-26 07:54] LABS: African American GFR (CKD) >90 (>60 ml/min/1.73 sqM); Non-African American GFR(CKD) >90 (>60 ml/min/1.73 sqM)
[2023-01-26] MEDS: buPROPion SR 100 MG TABLET.ER PO SCH (08:00)
[2023-01-26] MEDS: POTASSIUM CHLORIDE ER 20 MEQ TAB.ER PO SCH (08:00)
[2023-01-26] MEDS: FENOFIBRATE 54 MG TAB PO SCH (08:00)
[2023-01-26] MEDS: ASPIRIN 81 MG PO SCH (08:01)
[2023-01-26] MEDS: amLODIPine 10 MG TAB PO SCH (08:01)
[2023-01-26] MEDS: MULTIVITAMINS, THERA 1 EACH TAB PO SCH (08:01)
[2023-01-26] MEDS: HEPARIN SODIUM,PORCINE/PF 5,000 UNIT/0.5 ML SYRINGE SQ SCH ×3 (08:01→23:34)
[2023-01-26] MEDS: CLOPIDOGREL 75 MG TAB PO SCH (08:01)
[2023-01-26] MEDS: METOPROLOL TARTRATE 50 MG TAB PO SCH ×2 (08:01→20:03)
[2023-01-26] MEDS: DULoxetine HCL 60 MG CAPSULE.DR PO SCH (08:01)
[2023-01-26] MEDS: NYSTATIN 100,000UNIT/GM CREAM 30 GM TUBE TOPICAL SCH ×2 (08:01→20:03)
[2023-01-26] MEDS: LOSARTAN 25 MG TAB PO SCH (08:01)
--- NOTE | 2023-01-26 08:01 | PN ---
PROGRESS NOTE SUBJECTIVE: This 67-year-old white male came with altered mental status. He remains on nystatin cream, potassium replacement, IV vancomycin for cellulitis of the skin. No rash or hypertension. Lipitor for dyslipidemia, he is 99 on 2 L. OBJECTIVE: VITAL SIGNS: Blood pressure is 126/68, temperature 98.6, pulse 70s to 60s. CARDIOVASCULAR: S1, S2. LUNGS: Transmitted upper sounds. HEMATOLOGY: Negative for Homans. White count is 5.95, hemoglobin is 11.3. His potassium is low at 3.2 mm on oral potassium replacement. TSH is normal. Dr. Rosen has seen the patient for infection. The patient wants to go home. CT of the chest was negative. Inflammatory markers mildly elevated. CT was negative. He is on nystatin cream. We will switch him to doxycycline on discharge, possibly discharge him home as he wants to go home. Prognosis is guarded. Continue current treatments. Possible discharge home. MMODL / IJN: [id number] /
[2023-01-26] MEDS: BUDESONIDE 0.5 MG/2 ML NEBU INHALATION SCH ×2 (08:06→18:18)
[2023-01-26] MEDS: IPRATROPIUM-ALBUTEROL 3 ML NEB INHALATION SCH ×4 (08:07→18:18)
[2023-01-26] MEDS: DOXYCYCLINE 100 MG CAP PO SCH ×2 (09:42→20:03)
--- NOTE | 2023-01-26 09:52 | P.GSCN ---
History of Present Illness Consult date: 01/26/23 Reason for Consult: aortic stenosis Requesting physician: Nima Reynolds History of present illness: This is a 67 year old gentleman who follows outpatient with Dr. William Christine for primary care. He has a previous medical history of CAD with myocardial infarction status post PCI to the RCA in 08/2022, CVA in 2021 with continued right hemiplegia who remains wheelchair/bedbound, chronic systolic heart failure/ischemic cardiomyopathy, diabetes with peripheral neuropathy, hypertension, asthma, depression, previous ventilator dependent respiratory failure with previous tracheostomy and peg tube placement which has since been removed. This gentleman has had multiple ER visits and hospitalizations in the last 6 months. He presented to [facility] this admission on 01/19/23 due to redness around his previous tracheostomy site and failure to thrive with family seeking placement. He was admitted for workup with multiple consultants, diagnostics ordered. Psychiatry saw patient and deemed him to lack decision making ability and public guardian has been assigned. Part of his work up included a transthoracic echo cardiogram demonstrating EF 55-60%, mild aortic insufficiency with severe aortic stenosis, max velocity 4.5 m/s, peak/mean gradient 82/45 mmHg, and aortic valve area 1.0 cm2. Due to this finding consultation was placed to cardiothoracic surgery for aortic valve replacement. Review of Systems ROS unobtainable: due to mental status Past Medical History Past Medical History: Asthma, Coronary Artery Disease (CAD), Heart Failure, CVA/TIA, Diabetes Mellitus, Hypertension, Myocardial Infarction ([place]), Osteoart hritis (OA) Additional Past Medical History / Comment(s): HX OF BACK SURGERY WITH BACK PAIN, DIABETIC NEUROPATHY, HEART MURMUR., KERATOCONUS., STOOL TEST POSITIVE ., ECZEMA Last Myocardial Infarction Date:: 08/2022 History of Any Multi-Drug Resistant Organisms: C-DIFF Year Discovered:: 12/19/22 MDRO Source:: stool Past Surgical History: Back Surgery, Heart Catheterization With Stent Additional Past Surgical History / Comment(s): BACK SURGERY WITH DISC REMOVED AND FUSION., VASECTOMY, LEFT GREAT TOE. peg tube, tracheostomy. Past Anesthesia/Blood Transfusion Reactions: No Reported Reaction Date of Last Stent Placement:: 08/2022 Past Psychological History: Depression Smoking Status: Never smoker Past Alcohol Use History: None Reported Past Drug Use History: None Reported - Past Family History Mother Family Medical History: No Reported History Additional Family Medical History / Comment(s): of old age Father Additional Family Medical History / Comment(s): of old age Medications and Allergies Home Medications Medication Instructions Recorded Confirmed Type Atorvastatin [Lipitor] 40 mg PO HS 08/13/22 01/20/23 History Aspirin 81 mg PO DAILY tab 08/30/22 01/20/23 Rx Clopidogrel [Plavix] 75 mg PO DAILY 10/01/22 01/20/23 History Insulin Glargine,Hum.rec.anlog 20 units SQ BID 10/01/22 01/20/23 History [Lantus Solostar Pen] Losartan [Cozaar] 25 mg PO DAILY 10/01/22 01/20/23 History Albuterol Nebulized [Ventolin 2.5 mg INHALATION RT-Q6H PRN 12/09/22 01/20/23 History Nebulized] Insulin Aspart [NovoLOG Flexpen] See Protocol SQ ACHS 12/09/22 01/20/23 History Multivitamins, Thera [Multivitamin 1 tab PO DAILY 12/09/22 01/20/23 History (formulary)] glipiZIDE [Glucotrol] 5 mg PO DAILY 12/09/22 01/20/23 History Fenofibrate 54 mg PO DAILY 12/18/22 01/20/23 History Albuterol Sulfate [Ventolin HFA] 1 - 2 puff INHALATION RT-Q6H PRN 01/09/23 01/20/23 History DULoxetine HCL [Cymbalta] 60 mg PO DAILY 01/09/23 01/20/23 History Fluticasone Propion/Salmeterol 1 puff INHALATION RT-BID 01/09/23 01/20/23 History [Wixela 500-50 Inhub] Metoprolol Tartrate [Lopressor] 50 mg PO BID 01/09/23 01/20/23 History amLODIPine [Norvasc] 10 mg PO DAILY 01/09/23 01/20/23 History HYDROcodone/APAP 5-325MG [Carmel 1 each PO Q6HR PRN #6 tab 01/12/23 01/20/23 Rx 5-325] QUEtiapine [SEROquel] 25 mg PO HS #30 tab 01/12/23 01/20/23 Rx Budesonide [Pulmicort] 0.5 mg INHALATION RT-BID 30 Days 01/25/23 Rx #60 ml Doxycycline [Vibramycin] 100 mg PO BID 7 Days #14 cap 01/25/23 Rx Ipratropium-Albuterol Nebulize 3 ml INHALATION RT-QID 30 Days 01/25/23 Rx [Duoneb 0.5 mg-3 mg/3 ml Soln] #120 each Nystatin 100,000Unit/gm Cream 1 applic TOPICAL BID 30 Days #30 01/25/23 Rx [Mycostatin Cream] each Potassium Chloride ER [K-Dur 20] 20 meq PO DAILY 30 Days #30 tab 01/25/23 Rx buPROPion SR [Wellbutrin SR] 100 mg PO DAILY 30 Days #30 tab 01/25/23 Rx Allergies Allergy/AdvReac Type Severity Reaction Status Date / Time Penicillins Allergy Unknown Verified 01/20/23 07:56 Surgical - Exam Vital Signs Temp Pulse Resp BP Pulse Ox 98.6 F 110 H 22 140/83 98 01/19/23 21:15 01/19/23 21:15 01/19/23 21:15 01/19/23 21:15 01/19/23 21:15 CONSTITUTIONAL: Awake and alert, appears comfortable, cooperative, no pain, no acute distress EYES: Pupils equal, round, reactive to light, normal ocular movement ENT: Moist mucous membranes without oral lesions present NECK: No masses, no bruits, trachea midline RESPIRATORY: Lungs sounds clear to auscultation bilaterally. Respirations even, nonlabored. Currently on 2LPM NC with oxygen saturation 98%. Strong cough CARDIOVASCULAR: S1, S2 present, loud systolic murmur. Regular rate and rhythm. Palpable peripheral pulses bilaterally. No edema present GASTROINTESTINAL: Abdomen soft, nontender, nondistended without masses or organomegaly noted. There is no rebound or guarding present. Active bowel sounds present 4 quadrants. GENITOURINARY: Deferred INTEGUMENTARY: Skin is warm and dry. Per pictures coccyx and sacrum red and excoriated NEUROLOGIC: Right hemiplegia present PSYCHIATRIC: Alert and oriented to person place and time Results - Labs 01/23/23 05:23 01/26/23 06:25 Abnormal Lab Results - Last 24 Hours (Table) 01/25/23 01/25/23 01/26/23 Range/Units 08:12 10:00 06:25 Creatinine 0.43 L 0.51 L (0.66-1.25) mg/dL Hemoglobin A1c 6.3 H (0.0-6.0) % Diabetes panel 01/25/23 01/25/23 01/26/23 Range/Units 08:12 10:00 06:25 Creatinine 0.43 L 0.51 L (0.66-1.25) mg/dL Hemoglobin A1c 6.3 H (0.0-6.0) % Pituitary panel 01/25/23 01/26/23 Range/Units 08:12 06:25 Creatinine 0.43 L 0.51 L (0.66-1.25) mg/dL Adrenal panel 01/25/23 01/26/23 Range/Units 08:12 06:25 Creatinine 0.43 L 0.51 L (0.66-1.25) mg/dL - Imaging CT scan - chest: report reviewed, image reviewed Assessment and Plan Assessment: Mild aortic insufficiency with severe aortic stenosis, max velocity 4.5 m/s, peak/mean gradient 82/45 mmHg, and aortic valve area 1.0 cm2 CAD with myocardial infarction status post PCI to the RCA in 08/2022 CVA in 2021 with continued right hemiplegia who remains wheelchair/bedbound Chronic systolic heart failure/ischemic cardiomyopathy Diabetes with peripheral neuropathy Hypertension Asthma Depression Previous ventilator dependent respiratory failure with previous tracheostomy and peg tube placement which has since been removed ADDENDUM: Patient seen and examined. Agree with nothing by mouth assessment. Patient is status post significant stroke with right hemiplegia. He has been deemed incompetent by psychiatry. Plan is for placement in care facility. He has been found to have severe aortic valvular stenosis.'s appears to be essentially asymptomatic. LV function appears preserved on the most current echocardiogram. Physical examination reveals preserved if somewhat diminished S2 with loud systolic murmur radiating to both carotids. Patient is clearly not a candidate for surgical aortic valve replacement. He has a very borderline candidate for TAVR. This will likely extend his life but is unlikely to improve his quality of life. Given his very poor quality of life at this time, my recommendation would be for medical palliative management. Plan: The patient was seen and examined at the bedside with Dr. Nick. Chart/diagnostics were reviewed. The patient is not a candidate for surgical aortic valve repair due to inability for rehabilitation. TAVR could be considered, but the patient would need complete TAVR work-up after he has recovered from acute illness. At this time the patient is asymptomatic from his aortic stenosis. As he has been deemed incompetent to make his own decisions, he would need to be seen in valve clinic with his public guardian. We will follow the patient and make arrangements after discharge for TAVR work up. I have personally seen and examined the patient, performed the documentation and the assessment and plan as written. Number of minutes spent on the visit: 30. Bhakti Smiley NP-C
[2023-01-26] MEDS ORDERED: VANCOMYCIN TROUGH DUE 1 EACH MISC MISCELLANE ONE (13:00)
[2023-01-26] MEDS: VANCOMYCIN 1,500 MG in SODIUM CHLORIDE 0.9% 500 ML 500 ML IVPB SCH (14:36)
[2023-01-26] MEDS: HYDROcodone/APAP 5-325MG 1 EACH TAB PO PRN (17:14)
[2023-01-26] MEDS: ATORVASTATIN 40 MG TAB PO SCH (20:03)
[2023-01-27] MEDS: VANCOMYCIN 1,500 MG in SODIUM CHLORIDE 0.9% 500 ML 500 ML IVPB SCH (05:56)
[2023-01-27] MEDS: IPRATROPIUM-ALBUTEROL 3 ML NEB INHALATION SCH ×4 (08:14→19:39)
[2023-01-27] MEDS: BUDESONIDE 0.5 MG/2 ML NEBU INHALATION SCH ×2 (08:14→19:39)
[2023-01-27 08:34] LABS: African American GFR (CKD) >90 (>60 ml/min/1.73 sqM); Non-African American GFR(CKD) >90 (>60 ml/min/1.73 sqM)
[2023-01-27] MEDS: amLODIPine 10 MG TAB PO SCH (09:03)
[2023-01-27] MEDS: LOSARTAN 25 MG TAB PO SCH (09:03)
[2023-01-27] MEDS: POTASSIUM CHLORIDE ER 20 MEQ TAB.ER PO SCH (09:03)
[2023-01-27] MEDS: HEPARIN SODIUM,PORCINE/PF 5,000 UNIT/0.5 ML SYRINGE SQ SCH ×3 (09:03→22:30)
[2023-01-27] MEDS: DULoxetine HCL 60 MG CAPSULE.DR PO SCH (09:03)
[2023-01-27] MEDS: CLOPIDOGREL 75 MG TAB PO SCH (09:03)
[2023-01-27] MEDS: METOPROLOL TARTRATE 50 MG TAB PO SCH ×2 (09:03→22:30)
[2023-01-27] MEDS: MULTIVITAMINS, THERA 1 EACH TAB PO SCH (09:03)
[2023-01-27] MEDS: ASPIRIN 81 MG PO SCH (09:03)
[2023-01-27] MEDS: DOXYCYCLINE 100 MG CAP PO SCH ×2 (09:04→22:30)
[2023-01-27] MEDS: buPROPion SR 100 MG TABLET.ER PO SCH (09:04)
[2023-01-27] MEDS: NYSTATIN 100,000UNIT/GM CREAM 30 GM TUBE TOPICAL SCH ×2 (09:04→22:31)
[2023-01-27] MEDS: FENOFIBRATE 54 MG TAB PO SCH (09:04)
--- NOTE | 2023-01-27 09:58 | PN ---
PROGRESS NOTE SUBJECTIVE: A 67-year-old white male without a mental status. He appears to be improving in his stay. Family's feeding and food. He has been on oral antibiotics for possible discharge, but he is going to get him off placed his new guardian qualified for rehab somewhere. He had GERD precautions. OBJECTIVE: VITAL SIGNS: Temperature 97.9, pulse 70s, respiratory rate 16 to 18, blood pressure 145/71. CARDIOVASCULAR: S1, S2. LUNGS: Clear. GI: Soft. HEMATOLOGY: Negative Homans. NEURO: Good affect. LABORATORY DATA: A1c is 6.3, creatinine 0.51. Vitals are improved. Continue with current treatments. He had Dr. Huynh see him for surgical consult per family's request as he has severe aortic stenosis. The patient says he wants his family. Vital signs stable and afebrile. Cardiovascular S1, S2. Nocturnal hypoxemia secondary to COPD. He has chronic systolic heart failure, ischemic cardiomyopathy, diabetes, hypertension, asthma, depression, previous ventilator treatment, mild aortic insufficiency, severe aortic stenosis. Coronary artery disease. He had a stroke prior with right hemiplegia. He is not a candidate for surgery. He has a very borderline candidate for TAVR, which will extend his life he says, so we would wait for further diagnosis. Prognosis guarded. MMODL / IJN: [id number] /
[2023-01-27] MEDS: DOCUSATE 100 MG CAP PO SCH ×2 (13:05→22:29)
[2023-01-27] MEDS: ALPRAZolam 0.25 MG TAB PO PRN (13:09)
[2023-01-27] MEDS: NYSTATIN 100,000 UNIT/GM POWD 15 GM TOPICAL SCH ×3 (13:10→22:31)
[2023-01-27] MEDS: SODIUM CHLORIDE 0.9% 1,000 ML IV SCH (16:08)
[2023-01-27] MEDS: ATORVASTATIN 40 MG TAB PO SCH (22:29)
[2023-01-27] MEDS: HYDROcodone/APAP 5-325MG 1 EACH TAB PO PRN (22:38)
[2023-01-28] MEDS: SODIUM CHLORIDE 0.9% 1,000 ML IV SCH ×2 (06:03→17:08)
[2023-01-28 07:51] LABS: Basophils % (A) 0 %; Eosinophils # (A) 0.2 k/uL (0-0.7); Eosinophils % (A) 3 %; HCT 37.1 % (39.0-53.0); Lymphocytes # (A) 1.3 k/uL (1.0-4.8); Lymphocytes % (A) 15 %; MCH 28.3 pg (25.0-35.0); MCHC 32.4 g/dL (31.0-37.0); MCV 87.3 fL (80.0-100.0); Mean Platelet Volume 6.5; Monocytes # (A) 0.6 k/uL (0-1.0); Monocytes % (A) 7 %; Neutrophils # (A) 6.5 k/uL (1.3-7.7); Neutrophils % (A) 73 %; Platelet Count 292 k/uL (150-450); RBC 4.25 m/uL (4.30-5.90); RDW 14.5 % (11.5-15.5); WBC 8.9 k/uL (3.8-10.6)
[2023-01-28 08:10] LABS: African American GFR (CKD) >90 (>60 ml/min/1.73 sqM); Anion Gap 9 mmol/L; Blood Urea Nitrogen 7 mg/dL (9-20); Calcium 9.3 mg/dL (8.4-10.2); Carbon Dioxide 28 mmol/L (22-30); Chloride 100 mmol/L (98-107); Glucose 161 mg/dL (74-99); Non-African American GFR(CKD) >90 (>60 ml/min/1.73 sqM); Potassium 3.5 mmol/L (3.5-5.1); Sodium 137 mmol/L (137-145)
[2023-01-28] MEDS: BUDESONIDE 0.5 MG/2 ML NEBU INHALATION SCH ×2 (08:30→21:53)
[2023-01-28] MEDS: IPRATROPIUM-ALBUTEROL 3 ML NEB INHALATION SCH ×4 (08:31→21:53)
[2023-01-28] MEDS: DOXYCYCLINE 100 MG CAP PO SCH ×2 (08:41→21:49)
[2023-01-28] MEDS: DOCUSATE 100 MG CAP PO SCH ×3 (08:41→21:55)
[2023-01-28] MEDS: ASPIRIN 81 MG PO SCH (08:41)
[2023-01-28] MEDS: HEPARIN SODIUM,PORCINE/PF 5,000 UNIT/0.5 ML SYRINGE SQ SCH ×2 (08:41→17:53)
[2023-01-28] MEDS: amLODIPine 10 MG TAB PO SCH (08:41)
[2023-01-28] MEDS: buPROPion SR 100 MG TABLET.ER PO SCH (08:41)
[2023-01-28] MEDS: CLOPIDOGREL 75 MG TAB PO SCH (08:41)
[2023-01-28] MEDS: DULoxetine HCL 60 MG CAPSULE.DR PO SCH (08:42)
[2023-01-28] MEDS: POTASSIUM CHLORIDE ER 20 MEQ TAB.ER PO SCH (08:42)
[2023-01-28] MEDS: MULTIVITAMINS, THERA 1 EACH TAB PO SCH (08:42)
[2023-01-28] MEDS: METOPROLOL TARTRATE 50 MG TAB PO SCH ×2 (08:42→21:49)
[2023-01-28] MEDS: FENOFIBRATE 54 MG TAB PO SCH (08:42)
[2023-01-28] MEDS: LOSARTAN 25 MG TAB PO SCH (08:42)
--- NOTE | 2023-01-28 08:51 | PN ---
PROGRESS NOTE DATE OF SERVICE: 01/27/2023 I am covering for Dr. Cast. SUBJECTIVE: This 67-year-old gentleman admitted with weakness, has multiple medical issues. PT OT is evaluating the patient and the patient is scheduled to go to [facility]. The patient also has mild aortic insufficiency with severe aortic stenosis. The patient is not a candidate for any surgical aortic valve repair, TAVR could be considered as an outpatient possibly according to the cardiothoracic surgery. OBJECTIVE: VITAL SIGNS: Pulse is 69, blood pressure 160/72, respirations 16. CHEST: Few scattered rhonchi. CARDIOVASCULAR: ntd ABDOMEN: Soft. LABORATORY DATA: Reviewed. ASSESSMENT: 1. Generalized weakness. 2. History of CVA. 3. Severe aortic stenosis and mild aortic regurgitation for possible outpatient TAVR. 4. History of asthma. 5. Diabetes mellitus type 2. 6. Multiple medical issues. 7. Gait dysfunction. RECOMMENDATIONS AND DISCUSSION: Recommended to continue current management, continue symptomatic treatment, and continue with current medications, PT OT evaluation. I would also recommend repeat labs tomorrow and further recommendations to follow. MMODL / IJN: [id number] / MTDD
[2023-01-28] MEDS: NYSTATIN 100,000UNIT/GM CREAM 30 GM TUBE TOPICAL SCH ×2 (10:05→21:50)
[2023-01-28] MEDS: NYSTATIN 100,000 UNIT/GM POWD 15 GM TOPICAL SCH ×3 (10:05→21:49)
--- NOTE | 2023-01-28 15:37 | P.PN ---
Subjective Progress Note Date: 01/28/23 Patient is a 67-year-old male with a known history of hypertension, hyperlipidemia, diabetic neuropathy, history of coronary disease status post PCI to RCA in August 2020 and subsequently had acute CVA with right-sided hemiplegia.. Patient was sent to [facility] and subsequently sent home. Patient was brought to the hospital due to progressively weakness and difficulty to care for him by family. 01/28. Patient seen and examined. Laying comfortably in the bed REVIEW OF SYSTEMS: CONSTITUTIONAL: No fever, no malaise,. CARDIOVASCULAR: No chest pain, no palpitations, no syncope. PULMONARY: No shortness of breath, no cough, GASTROINTESTINAL: No diarrhea, no nausea, no vomiting, no abdominal pain. NEUROLOGICAL: No headaches, no weakness, PHYSICAL EXAMINATION: GENERAL: The patient is alert , not in any acute distress. Well developed, well nourished. HEENT: Pupils are round and equally reacting to light. EOMI. No scleral icterus. No conjunctival pallor. Normocephalic, atraumatic. No pharyngeal erythema. No thyromegaly. CARDIOVASCULAR: S1 and S2 present. Systolic murmur audible PULMONARY: Chest is clear to auscultation, no wheezing or crackles. ABDOMEN: Soft, nontender, nondistended, normoactive bowel sounds. No palpable organomegaly. MUSCULOSKELETAL: No joint swelling or deformity. EXTREMITIES: No cyanosis, clubbing, or pedal edema. NEUROLOGICAL: Gross neurological examination did not reveal any focal deficits. SKIN: No rashes. Assessment and plan Generalized medical debility and failure to thrive and unable to care by his family. History of CVA with right hemiplegia with prior history of trach and PEG Possible cellulitis at the previous trach site. Cardiomyopathy ischemic ejection fraction 45% Coronary artery with history of stent placement and STEMI Moderate aortic stenosis Hypertension Diabetes type 2 Diabetic peripheral neuropathy Hyperlipidemia DVT prophylaxis with heparin subcu Plan; Monitor vital signs Monitor CBC Monitor CMP patient to continue with vancomycin while inpatient along with nystatin cream to the previous trach site erythematous area ,plan is finish therapy with short course of oral doxycycline 7 days on discharge Continue symptomatic treatment follow-up on PTOT recommendations Objective - Vital Signs Vital signs: Vital Signs Temp 97.6 F 01/28/23 05:42 Pulse 73 01/28/23 12:20 Resp 16 01/28/23 05:42 BP 146/68 01/28/23 05:42 Pulse Ox 95 01/28/23 05:42 FiO2 21 01/27/23 08:14 Intake & Output 01/27/23 01/28/23 01/28/23 18:59 06:59 18:59 Output Total 2799 1800 Balance -2799 -1800 Output: Urine 1800 1800 Uretheral (Dillard) 1000 Post Void Residual 999 Other: Voiding Method Diaper Diaper Indwelling Catheter Incontinent Incontinent External Catheter External Catheter # Bowel Movements 1 1 - Labs CBC & Chem 7: 01/28/23 06:41 01/28/23 06:41 Labs: Abnormal Lab Results - Last 24 Hours (Table) 01/28/23 01/28/23 Range/Units 06:41 06:41 RBC 4.25 L (4.30-5.90) m/uL Hgb 12.0 L (13.0-17.5) gm/dL Hct 37.1 L (39.0-53.0) % BUN 7 L (9-20) mg/dL Creatinine 0.54 L (0.66-1.25) mg/dL Glucose 161 H (74-99) mg/dL
--- NOTE | 2023-01-28 15:54 | P.PN ---
Subjective Progress Note Date: 01/26/23 Principal diagnosis: Leukocytosis and possible neck Cellulitis Patient is a 67-year-old male with a past medical history significant for right hemiplegia secondary to CVA history of this very failure requiring tracheostomy subsequently worsened has been brought in the hospital for generalized weakness and debility and concern for possible cellulitis to the previous trach site patient did have a CT of the soft tissue of the neck did not show any evidence of abscess On today's evaluation that is 01/26/2023, the patient remains to be afebrile, the patient is breathing comfortably on room air, the patient denies chest pain or shortness of breath and no significant cough, the patient denies pain to the neck area and no further drainage has been reported no abdominal pain or diarrhea, no new symptoms Objective - Vital Signs Vital signs: Vital Signs Temp 97.9 F 01/26/23 11:09 Pulse 76 01/26/23 11:49 Resp 16 01/26/23 11:09 BP 145/71 01/26/23 11:09 Pulse Ox 98 01/26/23 11:09 FiO2 Intake & Output 01/25/23 01/26/23 01/26/23 18:59 06:59 18:59 Intake Total 250 Output Total 900 Balance -650 Intake: Oral 250 Output: Urine 900 Other: Voiding Method Diaper Diaper Diaper Incontinent Incontinent Incontinent External Catheter External Catheter # Voids 4 - Exam GENERAL DESCRIPTION: An elderly male lying in bed in no distress HEENT: Previous track side erythema has significantly decreased no drainage RESPIRATORY SYSTEM: Unlabored breathing , decreased breath sounds at bases HEART: S1 S2 regular rate and rhythm , ABDOMEN: Soft , no tenderness EXTREMITIES: No edema feet - Labs CBC & Chem 7: 01/28/23 06:41 01/28/23 06:41 Labs: Abnormal Lab Results - Last 24 Hours (Table) 01/25/23 01/26/23 Range/Units 10:00 06:25 Creatinine 0.51 L (0.66-1.25) mg/dL Hemoglobin A1c 6.3 H (0.0-6.0) % Assessment and Plan (1) Leukocytosis Current Visit: Yes Status: Acute Code(s): D72.829 - ELEVATED WHITE BLOOD CELL COUNT, UNSPECIFIED SNOMED Code(s): 321246740 Plan: 1patient was in the hospital with debility weakness and there was concern for possible cellulitis to previous trach site patient did have minimal erythema at that site but no drainage was noticed. Did not have any fever however admitted have elevated white count 11.9 with a left shift CT of the chest was negative for any pneumonia abdominal supplemental examination 2-penicillin allergy that would limit the number of antibiotics safe to use 3-inflammatory markers mildly elevated 4- CT of the soft tissue of the neck with no evidence of any abscess or c ellulitis 5Patient white count has normalized, patient to continue with with nystatin cream to the previous trach site erythematous area , discontinue vancomycin and continue with the oral doxycycline Time with Patient: Less than 30
--- NOTE | 2023-01-28 15:55 | P.PN ---
Subjective Progress Note Date: 01/27/23 Principal diagnosis: Leukocytosis and possible neck Cellulitis Patient is a 67-year-old male with a past medical history significant for right hemiplegia secondary to CVA history of this very failure requiring tracheostomy subsequently worsened has been brought in the hospital for generalized weakness and debility and concern for possible cellulitis to the previous trach site patient did have a CT of the soft tissue of the neck did not show any evidence of abscess On today's evaluation that is 01/27/2023, the patient continues to be afebrile, the patient is breathing comfortably on room air, the patient denies chest pain or shortness of breath and no significant cough, the patient denies pain to the neck area and no further drainage has been reported by the nursing staff, the patient denies having any nausea no vomiting no abdominal pain or diarrhea Objective - Vital Signs Vital signs: Vital Signs Temp 97.6 F 01/27/23 07:39 Pulse 80 01/27/23 11:35 Resp 16 01/27/23 07:39 BP 153/74 01/27/23 07:39 Pulse Ox 99 01/27/23 08:14 FiO2 21 01/27/23 08:14 Intake & Output 01/26/23 01/27/23 01/27/23 18:59 06:59 18:59 Intake Total 1610 Output Total 1300 900 300 Balance -1300 710 -300 Weight 81.647 kg Intake: Intake, IV Titration 900 Amount Sodium Chloride 0.9% 1, 900 000 ml @ 75 mls/hr IV . [id number] [facility] Rx#:[id number] Oral 710 Output: Urine 1300 900 300 Other: Voiding Method Diaper Diaper Diaper Incontinent Incontinent Incontinent External Catheter External Catheter External Catheter # Bowel Movements 1 - Exam GENERAL DESCRIPTION: An elderly male lying in bed in no distress HEENT: Previous track side erythema has significantly decreased no drainage RESPIRATORY SYSTEM: Unlabored breathing , decreased breath sounds at bases HEART: S1 S2 regular rate and rhythm , ABDOMEN: Soft , no tenderness EXTREMITIES: No edema feet - Labs CBC & Chem 7: 01/28/23 06:41 01/28/23 06:41 Labs: Abnormal Lab Results - Last 24 Hours (Table) 01/27/23 Range/Units 07:07 Creatinine 0.57 L (0.66-1.25) mg/dL Assessment and Plan (1) Leukocytosis Current Visit: Yes Status: Acute Code(s): D72.829 - ELEVATED WHITE BLOOD CELL COUNT, UNSPECIFIED SNOMED Code(s): 602890451 Plan: 1patient was in the hospital with debility weakness and there was concern for possible cellulitis to previous trach site patient did have minimal erythema at that site but no drainage was noticed. Did not have any fever however admitted have elevated white count 11.9 with a left shift CT of the chest was negative for any pneumonia abdominal supplemental examination 2-penicillin allergy that would limit the number of antibiotics safe to use 3-inflammatory markers mildly elevated 4- CT of the soft tissue of the neck with no evidence of any abscess or cellulitis 5Patient to continue with with nystatin cream to the previous trach site erythematous area and continue with the oral doxycycline Time with Patient: Less than 30
--- NOTE | 2023-01-28 15:56 | P.PN ---
Subjective Progress Note Date: 01/28/23 Principal diagnosis: Leukocytosis and possible neck Cellulitis Patient is a 67-year-old male with a past medical history significant for right hemiplegia secondary to CVA history of this very failure requiring tracheostomy subsequently worsened has been brought in the hospital for generalized weakness and debility and concern for possible cellulitis to the previous trach site patient did have a CT of the soft tissue of the neck did not show any evidence of abscess On today's evaluation that is 01/28/2023, the patient remains to be afebrile, the patient is breathing comfortably on room air, the patient denies chest pain or shortness of breath and did have occasional dry cough, the patient denies pain to the neck area, the patient denies having any nausea no vomiting no abdominal pain or diarrhea Objective - Vital Signs Vital signs: Vital Signs Temp 97.4 F L 01/28/23 14:04 Pulse 65 01/28/23 14:04 Resp 16 01/28/23 14:04 BP 129/72 01/28/23 14:04 Pulse Ox 98 01/28/23 14:04 FiO2 21 01/27/23 08:14 Intake & Output 01/27/23 01/28/23 01/28/23 18:59 06:59 18:59 Output Total 2799 1800 Balance -2799 -1800 Output: Urine 1800 1800 Uretheral (Dillard) 1000 Post Void Residual 999 Other: Voiding Method Diaper Diaper Indwelling Catheter Incontinent Incontinent External Catheter External Catheter # Bowel Movements 1 1 - Exam GENERAL DESCRIPTION: An elderly male lying in bed in no distress HEENT: Previous track side erythema has significantly decreased no drainage RESPIRATORY SYSTEM: Unlabored breathing , decreased breath sounds at bases HEART: S1 S2 regular rate and rhythm , ABDOMEN: Soft , no tenderness EXTREMITIES: No edema feet - Labs CBC & Chem 7: 01/28/23 06:41 01/28/23 06:41 Labs: Abnormal Lab Results - Last 24 Hours (Table) 01/28/23 01/28/23 Range/Units 06:41 06:41 RBC 4.25 L (4.30-5.90) m/uL Hgb 12.0 L (13.0-17.5) gm/dL Hct 37.1 L (39.0-53.0) % BUN 7 L (9-20) mg/dL Creatinine 0.54 L (0.66-1.25) mg/dL Glucose 161 H (74-99) mg/dL Assessment and Plan (1) Leukocytosis Current Visit: Yes Status: Acute Code(s): D72.829 - ELEVATED WHITE BLOOD CELL COUNT, UNSPECIFIED SNOMED Code(s): 925669310 Plan: 1patient was in the hospital with debility weakness and there was concern for possible cellulitis to previous trach site patient did have minimal erythema at that site but no drainage was noticed. Did not have any fever however admitted have elevated white count 11.9 with a left shift CT of the chest was negative for any pneumonia abdominal supplemental examination 2-penicillin allergy that would limit the number of antibiotics safe to use 3-inflammatory markers mildly elevated , patient white count has normalized and CT of the soft tissue of the neck with no evidence of any abscess or cellulitis 4Patient to continue with with nystatin cream to the previous trach site erythematous area and continue with the oral doxycycline Time with Patient: Less than 30
[2023-01-28] MEDS: ALPRAZolam 0.25 MG TAB PO PRN (17:56)
[2023-01-28] MEDS: ATORVASTATIN 40 MG TAB PO SCH (21:49)
[2023-01-29] MEDS: HEPARIN SODIUM,PORCINE/PF 5,000 UNIT/0.5 ML SYRINGE SQ SCH ×4 (00:26→23:17)
[2023-01-29] MEDS: SODIUM CHLORIDE 0.9% 1,000 ML IV SCH ×2 (03:22→22:48)
[2023-01-29] MEDS: ALPRAZolam 0.25 MG TAB PO PRN ×3 (06:42→20:48)
[2023-01-29 06:59] LABS: African American GFR (CKD) >90 (>60 ml/min/1.73 sqM); Non-African American GFR(CKD) >90 (>60 ml/min/1.73 sqM)
[2023-01-29] MEDS: IPRATROPIUM-ALBUTEROL 3 ML NEB INHALATION SCH ×4 (08:15→19:58)
[2023-01-29] MEDS: BUDESONIDE 0.5 MG/2 ML NEBU INHALATION SCH ×2 (08:16→19:58)
[2023-01-29] MEDS: DOXYCYCLINE 100 MG CAP PO SCH ×2 (08:42→20:47)
[2023-01-29] MEDS: MULTIVITAMINS, THERA 1 EACH TAB PO SCH (08:43)
[2023-01-29] MEDS: amLODIPine 10 MG TAB PO SCH (08:43)
[2023-01-29] MEDS: CLOPIDOGREL 75 MG TAB PO SCH (08:43)
[2023-01-29] MEDS: DULoxetine HCL 60 MG CAPSULE.DR PO SCH (08:43)
[2023-01-29] MEDS: DOCUSATE 100 MG CAP PO SCH ×2 (08:43→20:48)
[2023-01-29] MEDS: ASPIRIN 81 MG PO SCH (08:43)
[2023-01-29] MEDS: LOSARTAN 25 MG TAB PO SCH (08:43)
[2023-01-29] MEDS: buPROPion SR 100 MG TABLET.ER PO SCH (08:43)
[2023-01-29] MEDS: POTASSIUM CHLORIDE ER 20 MEQ TAB.ER PO SCH (08:43)
[2023-01-29] MEDS: FENOFIBRATE 54 MG TAB PO SCH (08:43)
[2023-01-29] MEDS: METOPROLOL TARTRATE 50 MG TAB PO SCH ×2 (08:43→20:47)
[2023-01-29] MEDS: NYSTATIN 100,000UNIT/GM CREAM 30 GM TUBE TOPICAL SCH ×2 (08:53→20:48)
[2023-01-29] MEDS: NYSTATIN 100,000 UNIT/GM POWD 15 GM TOPICAL SCH ×3 (08:54→20:48)
--- NOTE | 2023-01-29 15:57 | P.PN ---
Progress Note - Text Progress Note Date: 01/29/23 Hospital course: I'm rounding for Dr. Nima Reynolds. Laying in bed. Comfortable. Oral intake very well. Had about half his lunch. No pain. Breathing stable. Active Medications Hydrocodone Bitart/Acetaminophen (Hydrocodone/Apap 5-325mg 1 Each Tab) 1 each PO Q6HR PRN PRN Reason: Pain Last Admin: 01/27/23 22:38 Dose: 1 each Albuterol/Ipratropium (Ipratropium-Albuterol 3 Ml Neb) 3 ml INHALATION RT-QID [facility] Last Admin: 01/29/23 15:37 Dose: 3 ml Alprazolam (Alprazolam 0.25 Mg Tab) 0.25 mg PO TID PRN PRN Reason: Anxiety Last Admin: 01/29/23 13:38 Dose: 0.25 mg Amlodipine Besylate (Amlodipine 10 Mg Tab) 10 mg PO DAILY [facility] Last Admin: 01/29/23 08:43 Dose: 10 mg Aspirin (Aspirin 81 Mg) 81 mg PO DAILY [facility] Last Admin: 01/29/23 08:43 Dose: 81 mg Atorvastatin Calcium (Atorvastatin 40 Mg Tab) 40 mg PO HS [facility] Last Admin: 01/28/23 21:49 Dose: 40 mg Budesonide (Budesonide 0.5 Mg/2 Ml Nebu) 0.5 mg INHALATION RT-BID [facility] Last Admin: 01/29/23 08:16 Dose: 0.5 mg Bupropion HCl (Bupropion Sr 100 Mg Tablet.Er) 100 mg PO DAILY [facility] Last Admin: 01/29/23 08:43 Dose: 100 mg Clopidogrel Bisulfate (Clopidogrel 75 Mg Tab) 75 mg PO DAILY [facility] Last Admin: 01/29/23 08:43 Dose: 75 mg Docusate Sodium (Docusate 100 Mg Cap) 100 mg PO BID [facility] Last Admin: 01/29/23 08:43 Dose: 100 mg Doxycycline Monohydrate (Doxycycline 100 Mg Cap) 100 mg PO BID [facility]; Protocol Last Admin: 01/29/23 08:42 Dose: 100 mg Duloxetine HCl (Duloxetine Hcl 60 Mg Capsule.Dr) 60 mg PO DAILY [facility] Last Admin: 01/29/23 08:43 Dose: 60 mg Fenofibrate (Fenofibrate 54 Mg Tab) 54 mg PO DAILY [facility] Last Admin: 01/29/23 08:43 Dose: 54 mg Heparin Sodium (Porcine) (Heparin Sodium,Porcine/Pf 5,000 Unit/0.5 Ml Syringe) 5,000 unit SQ Q8HR [facility] Last Admin: 01/29/23 08:42 Dose: 5,000 unit Sodium Chloride (Saline 0.9%) 1,000 mls @ 75 mls/hr IV .[id number] [facility] Last Admin: 01/29/23 03:22 Dose: 75 mls/hr Losartan Potassium (Losartan 25 Mg Tab) 25 mg PO DAILY [facility] Last Admin: 01/29/23 08:43 Dose: 25 mg Metoprolol Tartrate (Metoprolol Tartrate 50 Mg Tab) 50 mg PO BID [facility] Last Admin: 01/29/23 08:43 Dose: 50 mg Multivitamins (Multivitamins, Thera 1 Each Tab) 1 each PO DAILY [facility] Last Admin: 01/29/23 08:43 Dose: 1 each Naloxone HCl (Naloxone 0.4 Mg/Ml 1 Ml Vial) 0.2 mg IV Q2M PRN PRN Reason: Opioid Reversal Nystatin (Nystatin 100,000unit/Gm Cream 30 Gm Tube) 1 applic TOPICAL BID [facility]; Protocol Last Admin: 01/29/23 08:53 Dose: 1 applic Nystatin (Nystatin 100,000 Unit/Gm Powd 15 Gm) 1 applic TOPICAL TID [facility]; Protocol Last Admin: 01/29/23 08:54 Dose: 1 applic Potassium Chloride (Potassium Chloride Er 20 Meq Tab.Er) 20 meq PO DAILY [facility] Last Admin: 01/29/23 08:43 Dose: 20 meq On examination: VITAL SIGNS: [97.6, 68, 16, 137/76, 97% room air] GENERAL APPEARANCE: Laying in bed, awake, comfortable HEENT: Normal external appearance of nose and ear. Oral cavity normal EYES: Pupils equal. Conjunctiva normal. NECK: JVD not raised. Mass not palpable. RESPIRATORY: Respiratory effort normal. Lungs clear to auscultation. CARDIOVASCULAR: First and second sounds normal. No edema. ABDOMEN: Soft. Liver and spleen not palpable. No tenderness. No mass palpable. PSYCHIATRY: Answering questions appropriately. INVESTIGATIONS, reviewed in the clinical context: White count 8.9 hemoglobin 12 platelets 292 potassium 3.5 creatinine 0.5 for Assessment and plan: -Right-sided paresis from a prior stroke -Acute cellulitis of previous tracheostomy site. Better Nystatin cream. Doxycycline -CAD with stent -Diabetes mellitus type 2 -Essential hypertension -Primary osteoarthritis -Depression -Chronic medical debility Continue current medications. Including nystatin cream. Doxycycline. Discharge planning is looking into placement.
[2023-01-29] MEDS: ATORVASTATIN 40 MG TAB PO SCH (20:48)
[2023-01-30] MEDS: SODIUM CHLORIDE 0.9% 1,000 ML IV SCH (06:11)
[2023-01-30] MEDS: IPRATROPIUM-ALBUTEROL 3 ML NEB INHALATION SCH ×4 (07:41→18:27)
[2023-01-30] MEDS: BUDESONIDE 0.5 MG/2 ML NEBU INHALATION SCH ×2 (07:41→18:28)
[2023-01-30 07:45] LABS: African American GFR (CKD) >90 (>60 ml/min/1.73 sqM); Non-African American GFR(CKD) >90 (>60 ml/min/1.73 sqM)
[2023-01-30] MEDS: METOPROLOL TARTRATE 50 MG TAB PO SCH ×2 (09:02→20:07)
[2023-01-30] MEDS: POTASSIUM CHLORIDE ER 20 MEQ TAB.ER PO SCH (09:02)
[2023-01-30] MEDS: MULTIVITAMINS, THERA 1 EACH TAB PO SCH (09:02)
[2023-01-30] MEDS: DULoxetine HCL 60 MG CAPSULE.DR PO SCH (09:02)
[2023-01-30] MEDS: CLOPIDOGREL 75 MG TAB PO SCH (09:02)
[2023-01-30] MEDS: amLODIPine 10 MG TAB PO SCH (09:03)
[2023-01-30] MEDS: NYSTATIN 100,000 UNIT/GM POWD 15 GM TOPICAL SCH ×3 (09:03→20:07)
[2023-01-30] MEDS: FENOFIBRATE 54 MG TAB PO SCH (09:03)
[2023-01-30] MEDS: ASPIRIN 81 MG PO SCH (09:03)
[2023-01-30] MEDS: DOCUSATE 100 MG CAP PO SCH ×2 (09:03→20:07)
[2023-01-30] MEDS: buPROPion SR 100 MG TABLET.ER PO SCH (09:03)
[2023-01-30] MEDS: LOSARTAN 25 MG TAB PO SCH (09:03)
[2023-01-30] MEDS: NYSTATIN 100,000UNIT/GM CREAM 30 GM TUBE TOPICAL SCH ×2 (09:03→20:07)
[2023-01-30] MEDS: HEPARIN SODIUM,PORCINE/PF 5,000 UNIT/0.5 ML SYRINGE SQ SCH ×3 (09:03→23:44)
[2023-01-30] MEDS: DOXYCYCLINE 100 MG CAP PO SCH ×2 (10:44→20:07)
[2023-01-30] MEDS: ALPRAZolam 0.25 MG TAB PO PRN ×2 (15:53→22:03)
[2023-01-30] MEDS ORDERED: DEXTROSE 50% SYRINGE 50 ML IVP PRN (18:24)
--- NOTE | 2023-01-30 18:27 | P.PN ---
Progress Note - Text Progress Note Date: 01/30/23 Hospital course: I'm rounding for Dr. Nima Reynolds. Laying in bed. Comfortable. Oral intake very well. Had about half his lunch. No pain. Breathing stable. January 30: Eating fair. Looking at placement for discharge. Tracheostomy site healing well. Discussed with social media executive. Active Medications Hydrocodone Bitart/Acetaminophen (Hydrocodone/Apap 5-325mg 1 Each Tab) 1 each PO Q6HR PRN PRN Reason: Pain Last Admin: 01/27/23 22:38 Dose: 1 each Albuterol/Ipratropium (Ipratropium-Albuterol 3 Ml Neb) 3 ml INHALATION RT-QID [facility] Last Admin: 01/30/23 15:33 Dose: 3 ml Alprazolam (Alprazolam 0.25 Mg Tab) 0.25 mg PO TID PRN PRN Reason: Anxiety Last Admin: 01/30/23 15:53 Dose: 0.25 mg Amlodipine Besylate (Amlodipine 10 Mg Tab) 10 mg PO DAILY [facility] Last Admin: 01/30/23 09:03 Dose: 10 mg Aspirin (Aspirin 81 Mg) 81 mg PO DAILY [facility] Last Admin: 01/30/23 09:03 Dose: 81 mg Atorvastatin Calcium (Atorvastatin 40 Mg Tab) 40 mg PO HS [facility] Last Admin: 01/29/23 20:48 Dose: 40 mg Budesonide (Budesonide 0.5 Mg/2 Ml Nebu) 0.5 mg INHALATION RT-BID [facility] Last Admin: 01/30/23 07:41 Dose: 0.5 mg Bupropion HCl (Bupropion Sr 100 Mg Tablet.Er) 100 mg PO DAILY [facility] Last Admin: 01/30/23 09:03 Dose: 100 mg Clopidogrel Bisulfate (Clopidogrel 75 Mg Tab) 75 mg PO DAILY [facility] Last Admin: 01/30/23 09:02 Dose: 75 mg Docusate Sodium (Docusate 100 Mg Cap) 100 mg PO BID [facility] Last Admin: 01/30/23 09:03 Dose: 100 mg Doxycycline Monohydrate (Doxycycline 100 Mg Cap) 100 mg PO BID [facility]; Protocol Last Admin: 01/30/23 10:44 Dose: 100 mg Duloxetine HCl (Duloxetine Hcl 60 Mg Capsule.Dr) 60 mg PO DAILY [facility] Last Admin: 01/30/23 09:02 Dose: 60 mg Fenofibrate (Fenofibrate 54 Mg Tab) 54 mg PO DAILY [facility] Last Admin: 01/30/23 09:03 Dose: 54 mg Heparin Sodium (Porcine) (Heparin Sodium,Porcine/Pf 5,000 Unit/0.5 Ml Syringe) 5,000 unit SQ Q8HR [facility] Last Admin: 01/30/23 15:53 Dose: 5,000 unit Sodium Chloride (Saline 0.9%) 1,000 mls @ 75 mls/hr IV .[id number] [facility] Last Admin: 01/30/23 06:11 Dose: 75 mls/hr Losartan Potassium (Losartan 25 Mg Tab) 25 mg PO DAILY [facility] Last Admin: 01/30/23 09:03 Dose: 25 mg Metoprolol Tartrate (Metoprolol Tartrate 50 Mg Tab) 50 mg PO BID [facility] Last Admin: 01/30/23 09:02 Dose: 50 mg Multivitamins (Multivitamins, Thera 1 Each Tab) 1 each PO DAILY [facility] Last Admin: 01/30/23 09:02 Dose: 1 each Naloxone HCl (Naloxone 0.4 Mg/Ml 1 Ml Vial) 0.2 mg IV Q2M PRN PRN Reason: Opioid Reversal Nystatin (Nystatin 100,000unit/Gm Cream 30 Gm Tube) 1 applic TOPICAL BID [facility]; Protocol Last Admin: 01/30/23 09:03 Dose: 1 applic Nystatin (Nystatin 100,000 Unit/Gm Powd 15 Gm) 1 applic TOPICAL TID [facility]; Pro tocol Last Admin: 01/30/23 15:54 Dose: 1 applic Potassium Chloride (Potassium Chloride Er 20 Meq Tab.Er) 20 meq PO DAILY [facility] Last Admin: 01/30/23 09:02 Dose: 20 meq On examination: VITAL SIGNS: 98.6, 65, 17, 150/79, 97% room air GENERAL APPEARANCE: Laying in bed, awake, comfortable HEENT: Normal external appearance of nose and ear. Oral cavity normal EYES: Pupils equal. Conjunctiva normal. NECK: JVD not raised. Mass not palpable. RESPIRATORY: Respiratory effort normal. Lungs clear to auscultation. CARDIOVASCULAR: First and second sounds normal. No edema. ABDOMEN: Soft. Liver and spleen not palpable. No tenderness. No mass palpable. NEUROLOGICAL: Right arm paresis. Movement in both legs PSYCHIATRY: Answering questions appropriately. INVESTIGATIONS, reviewed in the clinical context: White count 8.9 hemoglobin 12 platelets 292 potassium 3.5 creatinine 0.5 for Assessment and plan: -R Arm paresis from a prior stroke -Chronic lower extremity paresis -Acute cellulitis of previous tracheostomy site. Better Nystatin cream. 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 Continue current treatment plan. Accu-Cheks and sliding scale.
[2023-01-30] MEDS: INSULIN ASPART (NovoLOG) 100 UNIT/ML VIAL SQ SCH (18:33)
[2023-01-30 18:35] LABS: Glucose,Whole Blood 137 mg/dL (70-110)
[2023-01-30] MEDS: ATORVASTATIN 40 MG TAB PO SCH (20:07)
[2023-01-30 20:53] LABS: Glucose,Whole Blood 172 mg/dL (70-110)
[2023-01-30] MEDS: INSULIN DETEMIR (LEVEMIR) 100 UNIT/ML SYR SQ SCH (20:55)
--- NOTE | 2023-01-30 21:12 | P.PN ---
Subjective Progress Note Date: 01/29/23 Principal diagnosis: Leukocytosis and possible neck Cellulitis Patient is a 67-year-old male with a past medical history significant for right hemiplegia secondary to CVA history of this very failure requiring tracheostomy subsequently worsened has been brought in the hospital for generalized weakness and debility and concern for possible cellulitis to the previous trach site patient did have a CT of the soft tissue of the neck did not show any evidence of abscess On today's evaluation that is 01/29/2023, the patient continues to be afebrile, the patient is breathing comfortably on room air, the patient denies chest pain or shortness of breath and did have occasional cough but no sputum production, the patient denies pain to the neck area, the patient denies having any nausea no vomiting no abdominal pain or diarrhea Objective - Vital Signs Vital signs: Vital Signs Temp 97.5 F L 01/29/23 07:33 Pulse 72 01/29/23 08:33 Resp 16 01/29/23 07:33 BP 151/71 01/29/23 07:33 Pulse Ox 100 01/29/23 08:16 FiO2 21 01/27/23 08:14 Intake & Output 01/28/23 01/29/23 01/29/23 18:59 06:59 18:59 Output Total 2150 Balance -2150 Output: Urine 2150 Other: Voiding Method Indwelling Catheter Indwelling Catheter Indwelling Catheter # Voids 2 # Bowel Movements 1 - Exam GENERAL DESCRIPTION: An elderly male lying in bed in no distress HEENT: Previous track side erythema has significantly decreased no drainage RESPIRATORY SYSTEM: Unlabored breathing , decreased breath sounds at bases HEART: S1 S2 regular rate and rhythm , ABDOMEN: Soft , no tenderness EXTREMITIES: No edema feet - Labs CBC & Chem 7: 01/28/23 06:41 01/30/23 06:34 Labs: Abnormal Lab Results - Last 24 Hours (Table) 01/29/23 Range/Units 06:28 Creatinine 0.62 L (0.66-1.25) mg/dL Assessment and Plan (1) Leukocytosis Current Visit: Yes Status: Acute Code(s): D72.829 - ELEVATED WHITE BLOOD CELL COUNT, UNSPECIFIED SNOMED Code(s): 760067187 Plan: 1patient was in the hospital with debility weakness and there was concern for possible cellulitis to previous trach site patient did have minimal erythema at that site but no drainage was noticed. Did not have any fever however admitted have elevated white count 11.9 with a left shift CT of the chest was negative for any pneumonia abdominal supplemental examination 2-penicillin allergy that would limit the number of antibiotics safe to use 3-inflammatory markers mildly elevated , patient white count has normalized and CT of the soft tissue of the neck with no evidence of any abscess or cellulitis 4Patient has shown clinical improvement and will continue with with nystatin cream to the previous trach site erythematous area and continue with the oral doxycycline Time with Patient: Less than 30
--- NOTE | 2023-01-30 21:13 | P.PN ---
Subjective Progress Note Date: 01/30/23 Principal diagnosis: Leukocytosis and possible neck Cellulitis Patient is a 67-year-old male with a past medical history significant for right hemiplegia secondary to CVA history of this very failure requiring tracheostomy subsequently worsened has been brought in the hospital for generalized weakness and debility and concern for possible cellulitis to the previous trach site patient did have a CT of the soft tissue of the neck did not show any evidence of abscess On today's evaluation that is 01/30/2023, the patient denies any fever or any chills, the patient is breathing comfortably on room air, the patient denies chest pain or shortness of breath and no significant cough, the patient denies pain to the neck area or any drainage, the patient denies having any nausea no vomiting no abdominal pain or diarrhea Objective - Vital Signs Vital signs: Vital Signs Temp 98.6 F 01/30/23 12:08 Pulse 65 01/30/23 12:08 Resp 17 01/30/23 12:08 BP 150/79 01/30/23 12:08 Pulse Ox 97 01/30/23 12:08 FiO2 21 01/27/23 08:14 Intake & Output 01/29/23 01/30/23 01/30/23 18:59 06:59 18:59 Intake Total 120 Output Total 1250 1000 Balance -1250 -880 Intake: Oral 120 Output: Urine 1250 1000 Other: Voiding Method Indwelling Catheter Indwelling Catheter Indwelling Catheter - Exam GENERAL DESCRIPTION: An elderly male lying in bed in no distress HEENT: Previous track side erythema has significantly decreased no drainage RESPIRATORY SYSTEM: Unlabored breathing , decreased breath sounds at bases HEART: S1 S2 regular rate and rhythm , ABDOMEN: Soft , no tenderness EXTREMITIES: No edema feet - Labs CBC & Chem 7: 01/28/23 06:41 01/30/23 06:34 Labs: Abnormal Lab Results - Last 24 Hours (Table) 01/30/23 Range/Units 06:34 Creatinine 0.56 L (0.66-1.25) mg/dL Assessment and Plan (1) Leukocytosis Current Visit: Yes Status: Acute Code(s): D72.829 - ELEVATED WHITE BLOOD CELL COUNT, UNSPECIFIED SNOMED Code(s): 076488725 Plan: 1patient was in the hospital with debility weakness and there was concern for possible cellulitis to previous trach site patient did have minimal erythema at that site but no drainage was noticed. Did not have any fever however admitted have elevated white count 11.9 with a left shift CT of the chest was negative for any pneumonia abdominal supplemental examination 2-penicillin allergy that would limit the number of antibiotics safe to use 3-inflammatory markers mildly elevated , patient white count has normalized and CT of the soft tissue of the neck with no evidence of any abscess or cellulitis 4Patient slowly clinically improving and is currently being treated with with nystatin cream to the previous trach site erythematous area and continue with the oral doxycycline few more days Time with Patient: Less than 30
[2023-01-31 02:26] LABS: Glucose,Whole Blood 150 mg/dL (70-110)
[2023-01-31] MEDS: SODIUM CHLORIDE 0.9% 1,000 ML IV SCH ×2 (05:10→16:56)
[2023-01-31 07:09] LABS: Glucose,Whole Blood 138 mg/dL (70-110)
[2023-01-31] MEDS: BUDESONIDE 0.5 MG/2 ML NEBU INHALATION SCH ×2 (07:53→18:18)
[2023-01-31] MEDS: IPRATROPIUM-ALBUTEROL 3 ML NEB INHALATION SCH ×4 (07:53→18:17)
[2023-01-31] MEDS: DOXYCYCLINE 100 MG CAP PO SCH ×2 (08:13→20:08)
[2023-01-31] MEDS: INSULIN ASPART (NovoLOG) 100 UNIT/ML VIAL SQ SCH ×3 (08:13→17:15)
[2023-01-31] MEDS: amLODIPine 10 MG TAB PO SCH (08:13)
[2023-01-31] MEDS: FENOFIBRATE 54 MG TAB PO SCH (08:13)
[2023-01-31] MEDS: buPROPion SR 100 MG TABLET.ER PO SCH (08:13)
[2023-01-31] MEDS: LOSARTAN 25 MG TAB PO SCH (08:13)
[2023-01-31] MEDS: HEPARIN SODIUM,PORCINE/PF 5,000 UNIT/0.5 ML SYRINGE SQ SCH ×3 (08:13→23:42)
[2023-01-31] MEDS: DULoxetine HCL 60 MG CAPSULE.DR PO SCH (08:14)
[2023-01-31] MEDS: POTASSIUM CHLORIDE ER 20 MEQ TAB.ER PO SCH (08:14)
[2023-01-31] MEDS: NYSTATIN 100,000UNIT/GM CREAM 30 GM TUBE TOPICAL SCH ×2 (08:17→21:30)
[2023-01-31] MEDS: ASPIRIN 81 MG PO SCH (08:17)
[2023-01-31] MEDS: DOCUSATE 100 MG CAP PO SCH ×2 (08:17→20:08)
[2023-01-31] MEDS: NYSTATIN 100,000 UNIT/GM POWD 15 GM TOPICAL SCH ×3 (08:17→20:50)
[2023-01-31] MEDS: METOPROLOL TARTRATE 50 MG TAB PO SCH ×2 (08:17→20:08)
[2023-01-31] MEDS: MULTIVITAMINS, THERA 1 EACH TAB PO SCH (08:17)
[2023-01-31] MEDS: CLOPIDOGREL 75 MG TAB PO SCH (08:17)
[2023-01-31 11:09] LABS: Glucose,Whole Blood 161 mg/dL (70-110)
[2023-01-31] MEDS: ALPRAZolam 0.25 MG TAB PO PRN ×2 (13:23→21:30)
--- NOTE | 2023-01-31 16:37 | P.PN ---
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 history of this very failure requiring tracheostomy subsequently worsened has been brought in the hospital for generalized weakness and debility and concern for possible cellulitis to the previous trach site patient did have a CT of the soft tissue of the neck did not show any evidence of abscess On today's evaluation that is 01/31/2023, the patient remains to be afebrile, the patient is breathing comfortably on room air, the patient denies chest pain or shortness of breath, did have occasional dry cough, the patient denies pain to the neck area or any drainage, the patient denies having any nausea no vomiting no abdominal pain or diarrhea Objective - Vital Signs Vital signs: Vital Signs Temp 97.5 F L 01/31/23 11:45 Pulse 64 01/31/23 11:45 Resp 17 01/31/23 11:45 BP 151/73 01/31/23 11:45 Pulse Ox 99 01/31/23 11:45 FiO2 21 01/27/23 08:14 Intake & Output 01/30/23 01/31/23 01/31/23 18:59 06:59 18:59 Intake Total 1020 Output Total 1500 Balance -1500 1020 Weight 81.647 kg Intake: Intake, IV Titration 900 Amount Sodium Chloride 0.9% 1, 900 000 ml @ 75 mls/hr IV . [id number] [facility] Rx#:[id number] Oral 120 Output: Urine 1500 Other: Voiding Method Indwelling Catheter Indwelling Catheter Indwelling Catheter - Exam GENERAL DESCRIPTION: An elderly male lying in bed in no distress HEENT: Previous track side erythema has significantly decreased no drainage RESPIRATORY SYSTEM: Unlabored breathing , decreased breath sounds at bases HEART: S1 S2 regular rate and rhythm , ABDOMEN: Soft , no tenderness EXTREMITIES: No edema feet - Labs CBC & Chem 7: 01/28/23 06:41 01/30/23 06:34 Labs: Abnormal Lab Results - Last 24 Hours (Table) 01/30/23 01/30/23 01/31/23 Range/Units 18:32 20:52 02:25 POC Glucose (mg/dL) 137 H 172 H 150 H (70-110) mg/dL 01/31/23 01/31/23 Range/Units 07:08 11:09 POC Glucose (mg/dL) 138 H 161 H (70-110) mg/dL Assessment and Plan (1) Leukocytosis Current Visit: Yes Status: Acute Code(s): D72.829 - ELEVATED WHITE BLOOD CELL COUNT, UNSPECIFIED SNOMED Code(s): 675849367 Plan: 1patient was in the hospital with debility weakness and there was concern for possible cellulitis to previous trach site patient did have minimal erythema at that site but no drainage was noticed. Did not have any fever however admitted have elevated white count 11.9 with a left shift CT of the chest was negative for any pneumonia abdominal supplemental examination 2-penicillin allergy that would limit the number of antibiotics safe to use 3-inflammatory markers mildly elevated , patient white count has normalized and CT of the soft tissue of the neck with no evidence of any abscess or cellulitis 4Patient seemed to have shown clinical improvement and will continue with nystatin cream to the previous trach site erythematous area and continue with the oral doxycycline few more days Time with Patient: Less than 30
[2023-01-31 17:07] LABS: Glucose,Whole Blood 111 mg/dL (70-110)
[2023-01-31 19:58] LABS: Glucose,Whole Blood 106 mg/dL (70-110)
[2023-01-31] MEDS: INSULIN DETEMIR (LEVEMIR) 100 UNIT/ML SYR SQ SCH (20:08)
[2023-01-31] MEDS: ATORVASTATIN 40 MG TAB PO SCH (20:08)
--- NOTE | 2023-02-01 01:53 | PN ---
PROGRESS NOTE SUBJECTIVE: A 67-year-old white male, who remains mostly obtunded still. OBJECTIVE: VITAL SIGNS: Temperature 97.7, respiratory rate 16 to 18, pulse 80, blood pressure 142/69, O2 is 100% on 2 L. CARDIOVASCULAR: S1, S2. No scattered rhonchi and wheeze. HEMATOLOGY: Negative Homans. PSYCH: Fair mood and affect. ASSESSMENT: Dr. Rosen saw the patient in the last 24 to 48 hours. His recommendation is leukocytosis. Penicillin allergies, inflammatory markers. Continue with nystatin cream to the previous trach site or doxycycline for few more days. Continue current treatments. Prognosis guarded. Get neurology consult. Please see further orders. MMODL / IJN: [id number] /
[2023-02-01 07:00] LABS: Glucose,Whole Blood 126 mg/dL (70-110)
[2023-02-01] MEDS: INSULIN ASPART (NovoLOG) 100 UNIT/ML VIAL SQ SCH ×3 (08:01→17:13)
[2023-02-01] MEDS: BUDESONIDE 0.5 MG/2 ML NEBU INHALATION SCH ×2 (08:38→20:37)
[2023-02-01] MEDS: IPRATROPIUM-ALBUTEROL 3 ML NEB INHALATION SCH ×4 (08:38→20:36)
[2023-02-01] MEDS: HEPARIN SODIUM,PORCINE/PF 5,000 UNIT/0.5 ML SYRINGE SQ SCH ×3 (09:39→23:50)
[2023-02-01] MEDS: METOPROLOL TARTRATE 50 MG TAB PO SCH ×2 (09:39→20:20)
[2023-02-01] MEDS: ASPIRIN 81 MG PO SCH (09:39)
[2023-02-01] MEDS: DULoxetine HCL 60 MG CAPSULE.DR PO SCH (09:39)
[2023-02-01] MEDS: CLOPIDOGREL 75 MG TAB PO SCH (09:39)
[2023-02-01] MEDS: POTASSIUM CHLORIDE ER 20 MEQ TAB.ER PO SCH (09:39)
[2023-02-01] MEDS: DOCUSATE 100 MG CAP PO SCH ×2 (09:39→20:20)
[2023-02-01] MEDS: DOXYCYCLINE 100 MG CAP PO SCH ×2 (09:40→20:20)
[2023-02-01] MEDS: MULTIVITAMINS, THERA 1 EACH TAB PO SCH (09:40)
[2023-02-01] MEDS: SODIUM CHLORIDE 0.9% 1,000 ML IV SCH ×2 (09:40→17:54)
[2023-02-01] MEDS: LOSARTAN 25 MG TAB PO SCH (09:40)
[2023-02-01] MEDS: amLODIPine 10 MG TAB PO SCH (09:40)
[2023-02-01] MEDS: NYSTATIN 100,000UNIT/GM CREAM 30 GM TUBE TOPICAL SCH (09:40)
[2023-02-01] MEDS: NYSTATIN 100,000 UNIT/GM POWD 15 GM TOPICAL SCH ×3 (09:40→20:20)
[2023-02-01] MEDS: FENOFIBRATE 54 MG TAB PO SCH (09:40)
[2023-02-01] MEDS: buPROPion SR 100 MG TABLET.ER PO SCH (09:40)
[2023-02-01] MEDS: ALPRAZolam 0.25 MG TAB PO PRN ×3 (09:46→20:20)
[2023-02-01 11:28] LABS: Glucose,Whole Blood 172 mg/dL (70-110)
--- NOTE | 2023-02-01 13:52 | P.PN ---
Subjective Progress Note Date: 02/01/23 Principal diagnosis: Leukocytosis and possible neck Cellulitis Patient is a 67-year-old male with a past medical history significant for right hemiplegia secondary to CVA history of this very failure requiring tracheostomy subsequently worsened has been brought in the hospital for generalized weakness and debility and concern for possible cellulitis to the previous trach site patient did have a CT of the soft tissue of the neck did not show any evidence of abscess On today's evaluation that is 02/01/2023, the patient continues to be afebrile, the patient is breathing comfortably on room air, the patient denies chest pain or shortness of breath, no cough, denies pain to the neck area and no diarrhea has been reported Objective - Vital Signs Vital signs: Vital Signs Temp 97.7 F 02/01/23 11:24 Pulse 68 02/01/23 11:49 Resp 16 02/01/23 11:24 BP 156/74 02/01/23 11:24 Pulse Ox 98 02/01/23 11:24 FiO2 21 01/27/23 08:14 Intake & Output 01/31/23 02/01/23 02/01/23 18:59 06:59 18:59 Intake Total 1020 Output Total 1500 225 Balance -1500 795 Intake: Intake, IV Titration 900 Amount Sodium Chloride 0.9% 1, 900 000 ml @ 75 mls/hr IV . [id number] [facility] Rx#:[id number] Oral 120 Output: Urine 1500 225 Other: Voiding Method Indwelling Catheter Indwelling Catheter Indwelling Catheter # Voids 1 - Exam GENERAL DESCRIPTION: An elderly male lying in bed in no distress HEENT: Previous track side erythema has significantly decreased no drainage RESPIRATORY SYSTEM: Unlabored breathing , decreased breath sounds at bases HEART: S1 S2 regular rate and rhythm , ABDOMEN: Soft , no tenderness EXTREMITIES: No edema feet - Labs CBC & Chem 7: 01/28/23 06:41 01/30/23 06:34 Labs: Abnormal Lab Results - Last 24 Hours (Table) 01/31/23 02/01/23 02/01/23 Range/Units 17:05 06:59 11:27 POC Glucose (mg/dL) 111 H 126 H 172 H (70-110) mg/dL Assessment and Plan (1) Leukocytosis Current Visit: Yes Status: Acute Code(s): D72.829 - ELEVATED WHITE BLOOD CELL COUNT, UNSPECIFIED SNOMED Code(s): 080958801 Plan: 1patient was in the hospital with debility weakness and there was concern for possible cellulitis to previous trach site patient did have minimal erythema at that site but no drainage was noticed. Did not have any fever however admitted have elevated white count 11.9 with a left shift CT of the chest was negative for any pneumonia abdominal supplemental examination 2-penicillin allergy that would limit the number of antibiotics safe to use 3-inflammatory markers mildly elevated , patient white count has normalized and CT of the soft tissue of the neck with no evidence of any abscess or cellulitis 4Patient has shown shown clinical improvement and we will switch nystatin cream to powder to be applied to the the previous trach site erythematous area and continue with the oral doxycycline Time with Patient: Less than 30
[2023-02-01 17:11] LABS: Glucose,Whole Blood 143 mg/dL (70-110)
--- NOTE | 2023-02-01 18:11 | DS ---
DISCHARGE SUMMARY HOSPITAL COURSE: The patient was admitted for dehydration, failure to thrive, leukocytosis, altered mental status, nocturnal hypoxemia, COPD. He had previous CVA, hypertension. He was found to have possibly a cellulitis of the neck and possibly an infection, possibly aspiration pneumonia for which he was treated with IV antibiotics, switched to oral doxycycline on discharge. He is given oxygen which he wears at night 2 L every night. He continues to do well at this time. He is more alert and oriented. He eats about half his food. He has chronic paresis to lower extremities, in a PT, OT. MEDICATIONS: 1. 2 L of oxygen at night. 2. DuoNeb q.i.d. 3. Pulmicort 0.5 b.i.d. 4. Vibramycin 100 mg b.i.d. for 7 days. 5. Wellbutrin SR 100 mg daily. 6. Mycostatin cream topically b.i.d. to the trach site. 7. K-Dur 20 mEq daily. 8. Lipitor 40 mg daily. 9. Fenofibrate 54 mg daily. 10.Lopressor 50 b.i.d. 11.Edgar 5/325 every 6 p.r.n. 12.Aspirin 81 daily. 13.Cozaar 25 daily. 14.Plavix 75 daily. 15.Multivitamin daily. 16.Wixela 500/50 one puff b.i.d. 17.Cymbalta 60 daily. 18.Norvasc 10 mg daily. CONDITION: Stable. PROGNOSIS: Guarded. Ambulate as tolerated. He will need PT, OT with prognosis guarded. He will go to the shelter tomorrow. MMODL / IJN: [id number] /
[2023-02-01 20:20] LABS: Glucose,Whole Blood 168 mg/dL (70-110)
[2023-02-01] MEDS: ATORVASTATIN 40 MG TAB PO SCH (20:20)
[2023-02-01] MEDS: INSULIN DETEMIR (LEVEMIR) 100 UNIT/ML SYR SQ SCH (20:20)
[2023-02-01] MEDS: HYDROcodone/APAP 5-325MG 1 EACH TAB PO PRN (22:25)
--- NOTE | 2023-02-02 01:26 | PN ---
PROGRESS NOTE SUBJECTIVE: This is a 67-year-old white male came in with altered mental status, respiratory failure. He is much better with his breathing now. He was wearing oxygen at night up to 2-3 L. His breathing is greatly improved. He is significantly weak in his arms and legs, will have to go to the assisted for physical therapy. Dr. Rosen gave him Lotrisone cream to his neck. OBJECTIVE: GENERAL: He is alert and oriented x3. CARDIOVASCULAR: S1, S2. HEMATOLOGY: Negative for Homans. PSYCH: Fair mood and affect. He is somnolent at different times. He has eaten about half his lunch, tracheostomy is healing. Medications reviewed. ASSESSMENT: Right arm paresis from prior stroke, chronic lower extremity paresis, acute cellulitis of the trach site, coronary artery disease with stent, diabetes mellitus type 2, hypertension, osteoarthritis, depression, placement of Accu-Chek sliding scale, generalized weakness. He has a guardian who will take care of his placement. Possible discharge home tomorrow possibly to a assisted. MMODL / IJN: [id number] /
[2023-02-02 06:56] LABS: Glucose,Whole Blood 100 mg/dL (70-110)
[2023-02-02] MEDS: INSULIN ASPART (NovoLOG) 100 UNIT/ML VIAL SQ SCH ×3 (07:59→17:52)
[2023-02-02] MEDS: BUDESONIDE 0.5 MG/2 ML NEBU INHALATION SCH ×2 (08:54→20:58)
[2023-02-02] MEDS: IPRATROPIUM-ALBUTEROL 3 ML NEB INHALATION SCH ×4 (08:54→20:58)
[2023-02-02] MEDS: CLOPIDOGREL 75 MG TAB PO SCH (09:53)
[2023-02-02] MEDS: DULoxetine HCL 60 MG CAPSULE.DR PO SCH (09:53)
[2023-02-02] MEDS: ASPIRIN 81 MG PO SCH (09:53)
[2023-02-02] MEDS: HEPARIN SODIUM,PORCINE/PF 5,000 UNIT/0.5 ML SYRINGE SQ SCH ×2 (09:53→15:24)
[2023-02-02] MEDS: DOCUSATE 100 MG CAP PO SCH ×2 (09:53→22:39)
[2023-02-02] MEDS: LOSARTAN 25 MG TAB PO SCH (09:53)
[2023-02-02] MEDS: buPROPion SR 100 MG TABLET.ER PO SCH (09:53)
[2023-02-02] MEDS: MULTIVITAMINS, THERA 1 EACH TAB PO SCH (09:53)
[2023-02-02] MEDS: POTASSIUM CHLORIDE ER 20 MEQ TAB.ER PO SCH (09:53)
[2023-02-02] MEDS: METOPROLOL TARTRATE 50 MG TAB PO SCH ×2 (09:53→22:39)
[2023-02-02] MEDS: amLODIPine 10 MG TAB PO SCH (09:53)
[2023-02-02] MEDS: FENOFIBRATE 54 MG TAB PO SCH (09:53)
[2023-02-02] MEDS: NYSTATIN 100,000 UNIT/GM POWD 15 GM TOPICAL SCH ×3 (09:55→22:39)
[2023-02-02] MEDS: SODIUM CHLORIDE 0.9% 1,000 ML IV SCH ×2 (10:13→22:40)
[2023-02-02 11:51] LABS: Glucose,Whole Blood 134 mg/dL (70-110)
[2023-02-02] MEDS: HYDROcodone/APAP 5-325MG 1 EACH TAB PO PRN (16:59)
[2023-02-02 17:27] LABS: Glucose,Whole Blood 117 mg/dL (70-110)
[2023-02-02] MEDS: ALPRAZolam 0.25 MG TAB PO PRN (20:13)
[2023-02-02] MEDS: ATORVASTATIN 40 MG TAB PO SCH (22:39)
[2023-02-02] MEDS: INSULIN DETEMIR (LEVEMIR) 100 UNIT/ML SYR SQ SCH (22:50)
[2023-02-02 23:01] LABS: Glucose,Whole Blood 97 mg/dL (70-110)
[2023-02-03] MEDS: HEPARIN SODIUM,PORCINE/PF 5,000 UNIT/0.5 ML SYRINGE SQ SCH ×4 (01:09→23:34)
[2023-02-03] MEDS: HYDROcodone/APAP 5-325MG 1 EACH TAB PO PRN ×2 (02:00→16:53)
[2023-02-03] MEDS: IPRATROPIUM-ALBUTEROL 3 ML NEB INHALATION SCH ×4 (07:18→20:45)
[2023-02-03] MEDS: BUDESONIDE 0.5 MG/2 ML NEBU INHALATION SCH ×2 (07:18→20:45)
[2023-02-03 07:43] LABS: Glucose,Whole Blood 122 mg/dL (70-110)
[2023-02-03] MEDS: INSULIN ASPART (NovoLOG) 100 UNIT/ML VIAL SQ SCH ×3 (09:02→18:08)
[2023-02-03] MEDS: DOCUSATE 100 MG CAP PO SCH ×2 (09:17→20:15)
[2023-02-03] MEDS: CLOPIDOGREL 75 MG TAB PO SCH (09:17)
[2023-02-03] MEDS: METOPROLOL TARTRATE 50 MG TAB PO SCH ×2 (09:17→20:14)
[2023-02-03] MEDS: DULoxetine HCL 60 MG CAPSULE.DR PO SCH (09:17)
[2023-02-03] MEDS: buPROPion SR 100 MG TABLET.ER PO SCH (09:17)
[2023-02-03] MEDS: amLODIPine 10 MG TAB PO SCH (09:17)
[2023-02-03] MEDS: LOSARTAN 25 MG TAB PO SCH (09:17)
[2023-02-03] MEDS: ASPIRIN 81 MG PO SCH (09:17)
[2023-02-03] MEDS: MULTIVITAMINS, THERA 1 EACH TAB PO SCH (09:17)
[2023-02-03] MEDS: POTASSIUM CHLORIDE ER 20 MEQ TAB.ER PO SCH (09:17)
[2023-02-03] MEDS: FENOFIBRATE 54 MG TAB PO SCH (09:17)
[2023-02-03] MEDS: NYSTATIN 100,000 UNIT/GM POWD 15 GM TOPICAL SCH ×3 (10:38→22:15)
[2023-02-03 11:35] LABS: Glucose,Whole Blood 182 mg/dL (70-110)
[2023-02-03] MEDS: ALPRAZolam 0.25 MG TAB PO PRN ×2 (12:36→20:14)
--- NOTE | 2023-02-03 15:57 | P.PN ---
Subjective Progress Note Date: 02/02/23 Principal diagnosis: Leukocytosis and possible neck Cellulitis Patient is a 67-year-old male with a past medical history significant for right hemiplegia secondary to CVA history of this very failure requiring tracheostomy subsequently worsened has been brought in the hospital for generalized weakness and debility and concern for possible cellulitis to the previous trach site patient did have a CT of the soft tissue of the neck did not show any evidence of abscess On today's evaluation that is 02/02/2023, the patient remains to be afebrile, the patient is breathing comfortably on room air, the patient denies chest pain or shortness of breath, no cough, the patient denies pain to the neck area and no diarrhea has been reported Objective - Vital Signs Vital signs: Vital Signs Temp 97.9 F 02/02/23 06:50 Pulse 72 02/02/23 09:10 Resp 18 02/02/23 06:50 BP 169/75 02/02/23 06:50 Pulse Ox 96 02/02/23 06:50 FiO2 21 01/27/23 08:14 Intake & Output 02/01/23 02/02/23 02/02/23 18:59 06:59 18:59 Intake Total 900 Output Total 1400 700 Balance -1400 200 Intake: Intake, IV Titration 900 Amount Sodium Chloride 0.9% 1, 900 000 ml @ 75 mls/hr IV . [id number] [facility] Rx#:[id number] Output: Urine 1400 700 Other: Voiding Method Indwelling Catheter Indwelling Catheter - Exam GENERAL DESCRIPTION: An elderly male lying in bed in no distress HEENT: Previous track side erythema has significantly decreased no drainage RESPIRATORY SYSTEM: Unlabored breathing , decreased breath sounds at bases HEART: S1 S2 regular rate and rhythm , ABDOMEN: Soft , no tenderness EXTREMITIES: No edema feet - Labs CBC & Chem 7: 01/28/23 06:41 01/30/23 06:34 Labs: Abnormal Lab Results - Last 24 Hours (Table) 02/01/23 02/01/23 Range/Units 17:06 20:19 POC Glucose (mg/dL) 143 H 168 H (70-110) mg/dL Assessment and Plan (1) Leukocytosis Current Visit: Yes Status: Acute Code(s): D72.829 - ELEVATED WHITE BLOOD CELL COUNT, UNSPECIFIED SNOMED Code(s): 663689457 Plan: 1patient was in the hospital with debility weakness and there was concern for possible cellulitis to previous trach site patient did have minimal erythema at that site but no drainage was noticed. Did not have any fever however admitted have elevated white count 11.9 with a left shift CT of the chest was negative for any pneumonia abdominal supplemental examination 2-penicillin allergy that would limit the number of antibiotics safe to use 3-inflammatory markers mildly elevated , patient white count has normalized and CT of the soft tissue of the neck with no evidence of any abscess or cellulitis 4Patient has shown shown clinical improvement and continue with nystatin cream to powder to be applied to the the previous trach site erythematous area and discontinue oral doxycycline Time with Patient: Less than 30
--- NOTE | 2023-02-03 15:58 | P.PN ---
Subjective Progress Note Date: 02/03/23 Principal diagnosis: Leukocytosis and possible neck Cellulitis Patient is a 67-year-old male with a past medical history significant for right hemiplegia secondary to CVA history of this very failure requiring tracheostomy subsequently worsened has been brought in the hospital for generalized weakness and debility and concern for possible cellulitis to the previous trach site patient did have a CT of the soft tissue of the neck did not show any evidence of abscess On today's evaluation that is 02/03/2023, the patient continues to be afebrile, the patient is breathing comfortably on room air, the patient denies chest pain or shortness of breath, no cough, the patient denies pain to the neck area, no nausea no vomiting no abdominal pain or diarrhea Objective - Vital Signs Vital signs: Vital Signs Temp 97.4 F L 02/03/23 11:33 Pulse 76 02/03/23 11:46 Resp 16 02/03/23 11:33 BP 146/81 02/03/23 11:33 Pulse Ox 99 02/03/23 11:33 FiO2 21 01/27/23 08:14 Intake & Output 02/02/23 02/03/23 02/03/23 18:59 06:59 18:59 Intake Total 900 Output Total 1800 Balance -900 Weight 81.647 kg Intake: Intake, IV Titration 900 Amount Sodium Chloride 0.9% 1, 900 000 ml @ 75 mls/hr IV . [id number] [facility] Rx#:[id number] Output: Urine 1800 Other: Voiding Method Indwelling Catheter Indwelling Catheter Diaper # Voids 0 1 - Exam GENERAL DESCRIPTION: An elderly male lying in bed in no distress HEENT: Previous track side erythema has significantly decreased no drainage RESPIRATORY SYSTEM: Unlabored breathing , decreased breath sounds at bases HEART: S1 S2 regular rate and rhythm , ABDOMEN: Soft , no tenderness EXTREMITIES: No edema feet - Labs CBC & Chem 7: 01/28/23 06:41 01/30/23 06:34 Labs: Abnormal Lab Results - Last 24 Hours (Table) 02/02/23 02/03/23 02/03/23 Range/Units 17:23 07:42 11:34 POC Glucose (mg/dL) 117 H 122 H 182 H (70-110) mg/dL Assessment and Plan (1) Leukocytosis Current Visit: Yes Status: Acute Code(s): D72.829 - ELEVATED WHITE BLOOD CELL COUNT, UNSPECIFIED SNOMED Code(s): 671087122 Plan: 1patient was in the hospital with debility weakness and there was concern for possible cellulitis to previous trach site patient did have minimal erythema at that site but no drainage was noticed. Did not have any fever however admitted have elevated white count 11.9 with a left shift CT of the chest was negative for any pneumonia abdominal supplemental examination 2-penicillin allergy that would limit the number of antibiotics safe to use 3-inflammatory markers mildly elevated , patient white count has normalized and CT of the soft tissue of the neck with no evidence of any abscess or cellulitis 4Patient has shown shown clinical improvement as for his neck cellulitis is concerned and continue with nystatin cream to powder to be applied to the the previous trach site , no need for systemic antibiotics Time with Patient: Less than 30
[2023-02-03] MEDS: SODIUM CHLORIDE 0.9% 1,000 ML IV SCH ×2 (16:53→22:16)
[2023-02-03 17:27] LABS: Glucose,Whole Blood 153 mg/dL (70-110)
[2023-02-03] MEDS: ATORVASTATIN 40 MG TAB PO SCH (20:15)
[2023-02-03 21:31] LABS: Glucose,Whole Blood 164 mg/dL (70-110)
[2023-02-03] MEDS: INSULIN DETEMIR (LEVEMIR) 100 UNIT/ML SYR SQ SCH (21:36)
--- NOTE | 2023-02-04 00:14 | PN ---
PROGRESS NOTE SUBJECTIVE: This is a 67-year-old white male with failure to thrive, keeping him on oxygen at night. He remains on medications, heparin subcu. He is on multivitamins, diabetes medicines, hypertension medicines. OBJECTIVE: GENERAL: He is more alert, talking to me, he currently wears oxygen at night. He is at high 90s on room on 2 L when he is awake. VITAL SIGNS: Blood pressure is 140s over 80s, pulse 78, respiratory rate 18, temp 97.4. CARDIOVASCULAR: S1, S2. LUNGS: Transmitted upper sounds. Hematology, negative for Homans. Plan is to get PT OT working with him, possibly get him into rehab center, guarded chip is pending. Please see further orders. MMODL / IJN: [id number] /
[2023-02-04 07:08] LABS: Glucose,Whole Blood 148 mg/dL (70-110)
[2023-02-04] MEDS: IPRATROPIUM-ALBUTEROL 3 ML NEB INHALATION SCH ×4 (08:03→20:15)
[2023-02-04] MEDS: BUDESONIDE 0.5 MG/2 ML NEBU INHALATION SCH ×2 (08:03→20:15)
[2023-02-04] MEDS: INSULIN ASPART (NovoLOG) 100 UNIT/ML VIAL SQ SCH ×3 (09:00→17:36)
--- NOTE | 2023-02-04 09:42 | P.GSCN ---
History of Present Illness Consult date: 02/04/23 Reason for Consult: Urinary retention History of present illness: This is a 67-year-old male admitted to the hospital with failure to thrive. Urology is consulted for urinary retention. Patient did have a Dillard catheter inserted for retention upon admission for PVR 999 mL. Dillard catheter was removed yesterday and his PVR was elevated at 750 mL and the catheter was subsequently reinserted. He indicates prior to this admission no voiding issues. No known history of urinary retention. Denies history of gross hematuria or UTIs.. Review of Systems - Constitutional Denies fever, Denies weight loss - Cardiovascular Denies chest pain, Denies shortness of breath - Respiratory Denies cough, Denies 7 - Gastrointestinal Reports as per HPI - Genitourinary Denies dysuria, Denies flank pain Past Medical History Past Medical History: Asthma, Coronary Artery Disease (CAD), Heart Failure, CVA/TIA, Diabetes Mellitus, Hypertension, Myocardial Infarction ([place]), Osteoarthritis (OA) Additional Past Medical History / Comment(s): HX OF BACK SURGERY WITH BACK PAIN, DIABETIC NEUROPATHY, HEART MURMUR., KERATOCONUS., STOOL TEST POSITIVE ., ECZEMA Last Myocardial Infarction Date:: 08/2022 History of Any Multi-Drug Resistant Organisms: C-DIFF Year Discovered:: 12/19/22 MDRO Source:: stool Past Surgical History: Back Surgery, Heart Catheterization With Stent Additional Past Surgical History / Comment(s): BACK SURGERY WITH DISC REMOVED AND FUSION., VASECTOMY, LEFT GREAT TOE. peg tube, tracheostomy. Past Anesthesia/Blood Transfusion Reactions: No Reported Reaction Date of Last Stent Placement:: 08/2022 Past Psychological History: Depression Smoking Status: Never smoker Past Alcohol Use History: None Reported Past Drug Use History: None Reported - Past Family History Mother Family Medical History: No Reported History Additional Family Medical History / Comment(s): of old age Father Additional Family Medical History / Comment(s): of old age Medications and Allergies Home Medications Medication Instructions Recorded Confirmed Type Atorvastatin [Lipitor] 40 mg PO HS 08/13/22 01/20/23 History Aspirin 81 mg PO DAILY tab 08/30/22 01/20/23 Rx Clopidogrel [Plavix] 75 mg PO DAILY 10/01/22 01/20/23 History Insulin Glargine,Hum.rec.anlog 20 units SQ BID 10/01/22 01/20/23 History [Lantus Solostar Pen] Losartan [Cozaar] 25 mg PO DAILY 10/01/22 01/20/23 History Albuterol Nebulized [Ventolin 2.5 mg INHALATION RT-Q6H PRN 12/09/22 01/20/23 History Nebulized] Insulin Aspart [NovoLOG Flexpen] See Protocol SQ ACHS 12/09/22 01/20/23 History Multivitamins, Thera [Multivitamin 1 tab PO DAILY 12/09/22 01/20/23 History (formulary)] glipiZIDE [Glucotrol] 5 mg PO DAILY 12/09/22 01/20/23 History Fenofibrate 54 mg PO DAILY 12/18/22 01/20/23 History Albuterol Sulfate [Ventolin HFA] 1 - 2 puff INHALATION RT-Q6H PRN 01/09/23 01/20/23 History DULoxetine HCL [Cymbalta] 60 mg PO DAILY 01/09/23 01/20/23 History Fluticasone Propion/Salmeterol 1 puff INHALATION RT-BID 01/09/23 01/20/23 History [Wixela 500-50 Inhub] Metoprolol Tartrate [Lopressor] 50 mg PO BID 01/09/23 01/20/23 History amLODIPine [Norvasc] 10 mg PO DAILY 01/09/23 01/20/23 History HYDROcodone/APAP 5-325MG [[place] 1 each PO Q6HR PRN #6 tab 01/12/23 01/20/23 Rx 5-325] QUEtiapine [SEROquel] 25 mg PO HS #30 tab 01/12/23 01/20/23 Rx Budesonide [Pulmicort] 0.5 mg INHALATION RT-BID 30 Days 01/25/23 Rx #60 ml Doxycycline [Vibramycin] 100 mg PO BID 7 Days #14 cap 01/25/23 Rx Ipratropium-Albuterol Nebulize 3 ml INHALATION RT-QID 30 Days 01/25/23 Rx [Duoneb 0.5 mg-3 mg/3 ml Soln] #120 each Nystatin 100,000Unit/gm Cream 1 applic TOPICAL BID 30 Days #30 01/25/23 Rx [Mycostatin Cream] each Potassium Chloride ER [K-Dur 20] 20 meq PO DAILY 30 Days #30 tab 01/25/23 Rx buPROPion SR [Wellbutrin SR] 100 mg PO DAILY 30 Days #30 tab 01/25/23 Rx Allergies Allergy/AdvReac Type Severity Reaction Status Date / Time Penicillins Allergy Unknown Verified 01/20/23 07:56 Surgical - Exam Vital Signs Temp Pulse Resp BP Pulse Ox 98.6 F 110 H 22 140/83 98 01/19/23 21:15 01/19/23 21:15 01/19/23 21:15 01/19/23 21:15 01/19/23 21:15 - General no distress, no pain - Respiratory normal expansion, normal respiratory effort - Abdomen Abdomen: soft, non tender - Genitourinary Dillard in place draining clear yellow urine normal penis with no external lesions, testicles present Results - Labs 01/28/23 06:41 01/30/23 06:34 Abnormal Lab Results - Last 24 Hours (Table) 02/03/23 02/03/23 02/03/23 Range/Units 11:34 17:22 21:28 POC Glucose (mg/dL) 182 H 153 H 164 H (70-110) mg/dL 02/04/23 Range/Units 07:07 POC Glucose (mg/dL) 148 H (70-110) mg/dL Assessment and Plan Assessment: 67-year-old male with urinary retention, Dillard catheter was reinserted yesterday for a postvoid residual of 750 mL no previous history of retention or known voiding dysfunction. (1) Urinary retention Current Visit: Yes Status: Acute Code(s): R33.9 - RETENTION OF URINE, UNSPECIFIED SNOMED Code(s): 914004421 Plan: We'll start patient on Flomax Can have repeat of trial of void in 1 week. If patient still in the hospital this can be performed as an inpatient otherwise can follow-up as an outpatient for trial of void
[2023-02-04] MEDS: HEPARIN SODIUM,PORCINE/PF 5,000 UNIT/0.5 ML SYRINGE SQ SCH ×2 (09:58→16:19)
[2023-02-04] MEDS: NYSTATIN 100,000 UNIT/GM POWD 15 GM TOPICAL SCH ×3 (09:58→20:19)
[2023-02-04] MEDS: POTASSIUM CHLORIDE ER 20 MEQ TAB.ER PO SCH (09:59)
[2023-02-04] MEDS: DOCUSATE 100 MG CAP PO SCH ×2 (09:59→20:19)
[2023-02-04] MEDS: ASPIRIN 81 MG PO SCH (09:59)
[2023-02-04] MEDS: DULoxetine HCL 60 MG CAPSULE.DR PO SCH (09:59)
[2023-02-04] MEDS: amLODIPine 10 MG TAB PO SCH (09:59)
[2023-02-04] MEDS: METOPROLOL TARTRATE 50 MG TAB PO SCH ×2 (09:59→20:19)
[2023-02-04] MEDS: LOSARTAN 25 MG TAB PO SCH (09:59)
[2023-02-04] MEDS: FENOFIBRATE 54 MG TAB PO SCH (09:59)
[2023-02-04] MEDS: CLOPIDOGREL 75 MG TAB PO SCH (09:59)
[2023-02-04] MEDS: buPROPion SR 100 MG TABLET.ER PO SCH (09:59)
[2023-02-04] MEDS: MULTIVITAMINS, THERA 1 EACH TAB PO SCH (09:59)
[2023-02-04] MEDS: ALPRAZolam 0.25 MG TAB PO PRN ×2 (10:27→20:19)
[2023-02-04] MEDS: TAMSULOSIN 0.4 MG CAP.ER.24H PO SCH (10:27)
[2023-02-04 11:07] LABS: Glucose,Whole Blood 163 mg/dL (70-110)
--- NOTE | 2023-02-04 11:10 | P.PN ---
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 history of this very failure requiring tracheostomy subsequently worsened has been brought in the hospital for generalized weakness and debility and concern for possible cellulitis to the previous trach site patient did have a CT of the soft tissue of the neck did not show any evidence of abscess On today's evaluation that is 02/04/2023, the patient remains to be afebrile, the patient is breathing comfortably on room air, the patient denies chest pain or shortness of breath, no cough, the patient denies pain to the neck area, no nausea no vomiting no abdominal pain or diarrhea, patient did went into urinary retention requiring Dillard catheter placement Objective - Vital Signs Vital signs: Vital Signs Temp 97.4 F L 02/04/23 07:08 Pulse 78 02/04/23 07:08 Resp 18 02/04/23 07:08 BP 156/84 02/04/23 07:08 Pulse Ox 100 02/04/23 08:04 FiO2 21 01/27/23 08:14 Intake & Output 02/03/23 02/04/23 02/04/23 18:59 06:59 18:59 Intake Total 710 Output Total 450 1000 Balance -450 -290 Intake: Oral 710 Output: Urine 450 1000 Other: Voiding Method Diaper Diaper Diaper # Voids 1 # Bowel Movements 1 - Exam GENERAL DESCRIPTION: An elderly male lying in bed in no distress HEENT: Previous track side erythema has significantly decreased no drainage RESPIRATORY SYSTEM: Unlabored breathing , decreased breath sounds at bases HEART: S1 S2 regular rate and rhythm , ABDOMEN: Soft , no tenderness EXTREMITIES: No edema feet - Labs CBC & Chem 7: 01/28/23 06:41 01/30/23 06:34 Labs: Abnormal Lab Results - Last 24 Hours (Table) 02/03/23 02/03/23 02/03/23 Range/Units 11:34 17:22 21:28 POC Glucose (mg/dL) 182 H 153 H 164 H (70-110) mg/dL 02/04/23 02/04/23 Range/Units 07:07 11:06 POC Glucose (mg/dL) 148 H 163 H (70-110) mg/dL Assessment and Plan (1) Leukocytosis Current Visit: Yes Status: Acute Code(s): D72.829 - ELEVATED WHITE BLOOD CELL COUNT, UNSPECIFIED SNOMED Code(s): 513172501 Plan: 1patient was in the hospital with debility weakness and there was concern for possible cellulitis to previous trach site patient did have minimal erythema at that site but no drainage was noticed. Did not have any fever however admitted have elevated white count 11.9 with a left shift CT of the chest was negative for any pneumonia abdominal supplemental examination 2-penicillin allergy that would limit the number of antibiotics safe to use 3-inflammatory markers mildly elevated , patient white count has normalized and CT of the soft tissue of the neck with no evidence of any abscess or cellulitis 4Patient has shown shown improvement as for his neck cellulitis is concerned and continue with nystatin cream to powder to be applied to the the previous trach site and will monitor clinical course closely Time with Patient: Less than 30
[2023-02-04] MEDS: SODIUM CHLORIDE 0.9% 1,000 ML IV SCH ×2 (12:53→20:19)
[2023-02-04 13:42] LABS: Basophils # (A) 0.05 X 10*3/uL (0.00-0.10); Basophils % (A) 0.6 %; Eosinophils # (A) 0.25 X 10*3/uL (0.04-0.35); Eosinophils % (A) 2.9 %; HCT 37.4 % (39.6-50.0); HGB 12.3 g/dL (13.0-17.0); Immature Grans, Automated 0.5 %; Lymphocytes % (A) 15.1 %; MCH 29.5 pg (27.0-32.0); MCHC 32.9 g/dL (32.0-37.0); MCV 89.7 fL (80.0-97.0); Mean Platelet Volume 9.2 fL (9.5-12.2); Monocytes # (A) 0.76 X 10*3/uL (0.20-1.00); Monocytes % (A) 8.8 %; NRBC Per 100 WBC 0 /100 WBCS (0.0-0.0); Neutrophils # (A) 6.22 X 10*3/uL (1.80-7.70); Neutrophils % (A) 72.1 %; Platelet Count 207 X 10*3/uL (140-440); RBC 4.17 X 10*6/uL (4.40-5.60); RDW 14.8 % (11.5-14.5); WBC 8.62 X 10*3/uL (4.50-10.00)
[2023-02-04 13:50] LABS: African American GFR (CKD) 119.7 (60.0-200.0); Albumin 3.7 g/dL (3.8-4.9); Albumin/Globulin Ratio 1.76 (1.60-3.17); Anion Gap 11.2 mmol/L (10.00-18.00); BUN/Creat Ratio 11.83 Ratio (12.00-20.00); Blood Urea Nitrogen 7.1 mg/dL (9.0-27.0); Calcium 9.3 mg/dL (8.7-10.3); Carbon Dioxide 22.8 mmol/L (20.0-27.5); Globulin 2.1 g/dL (1.6-3.3); Non-African American GFR(CKD) 103.3 (60.0-200.0); Potassium 3.7 mmol/L (3.5-5.5); Total Bilirubin 0.4 mg/dL (0.30-1.20); Total Protein 5.8 g/dL (6.2-8.2)
[2023-02-04] MEDS: HYDROcodone/APAP 5-325MG 1 EACH TAB PO PRN (15:45)
[2023-02-04 17:29] LABS: Glucose,Whole Blood 194 mg/dL (70-110)
[2023-02-04] MEDS: ATORVASTATIN 40 MG TAB PO SCH (20:19)
[2023-02-04 20:41] LABS: Glucose,Whole Blood 137 mg/dL (70-110)
[2023-02-04] MEDS: INSULIN DETEMIR (LEVEMIR) 100 UNIT/ML SYR SQ SCH (20:42)
[2023-02-05] MEDS: HEPARIN SODIUM,PORCINE/PF 5,000 UNIT/0.5 ML SYRINGE SQ SCH ×3 (00:03→16:16)
[2023-02-05 07:28] LABS: Glucose,Whole Blood 139 mg/dL (70-110)
[2023-02-05] MEDS: BUDESONIDE 0.5 MG/2 ML NEBU INHALATION SCH ×2 (07:38→18:50)
[2023-02-05] MEDS: IPRATROPIUM-ALBUTEROL 3 ML NEB INHALATION SCH ×4 (07:38→18:50)
[2023-02-05] MEDS: INSULIN ASPART (NovoLOG) 100 UNIT/ML VIAL SQ SCH ×3 (07:52→18:21)
[2023-02-05] MEDS: FENOFIBRATE 54 MG TAB PO SCH (07:58)
[2023-02-05] MEDS: buPROPion SR 100 MG TABLET.ER PO SCH (07:58)
[2023-02-05] MEDS: POTASSIUM CHLORIDE ER 20 MEQ TAB.ER PO SCH (07:58)
[2023-02-05] MEDS: ASPIRIN 81 MG PO SCH (07:58)
[2023-02-05] MEDS: DULoxetine HCL 60 MG CAPSULE.DR PO SCH (07:58)
[2023-02-05] MEDS: LOSARTAN 25 MG TAB PO SCH (07:58)
[2023-02-05] MEDS: METOPROLOL TARTRATE 50 MG TAB PO SCH ×2 (07:58→20:50)
[2023-02-05] MEDS: TAMSULOSIN 0.4 MG CAP.ER.24H PO SCH (07:58)
[2023-02-05] MEDS: amLODIPine 10 MG TAB PO SCH (07:58)
[2023-02-05] MEDS: NYSTATIN 100,000 UNIT/GM POWD 15 GM TOPICAL SCH ×3 (07:59→20:51)
[2023-02-05] MEDS: MULTIVITAMINS, THERA 1 EACH TAB PO SCH (07:59)
[2023-02-05] MEDS: CLOPIDOGREL 75 MG TAB PO SCH (07:59)
[2023-02-05] MEDS: DOCUSATE 100 MG CAP PO SCH ×2 (07:59→20:50)
[2023-02-05] MEDS: ALPRAZolam 0.25 MG TAB PO PRN ×2 (10:45→20:50)
[2023-02-05 11:07] LABS: Glucose,Whole Blood 140 mg/dL (70-110)
--- NOTE | 2023-02-05 16:43 | P.PN ---
Subjective Progress Note Date: 02/05/23 Principal diagnosis: Leukocytosis and possible neck Cellulitis Patient is a 67-year-old male with a past medical history significant for right hemiplegia secondary to CVA history of this very failure requiring tracheostomy subsequently worsened has been brought in the hospital for generalized weakness and debility and concern for possible cellulitis to the previous trach site patient did have a CT of the soft tissue of the neck did not show any evidence of abscess On today's evaluation that is 02/05/2023, the patient continues to be afebrile, the patient is breathing comfortably on room air, the patient denies chest pain or shortness of breath, no cough, the patient denies pain to the neck area, no nausea no vomiting no abdominal pain or diarrhea, feeling better Objective - Vital Signs Vital signs: Vital Signs Temp 99.1 F 02/05/23 07:56 Pulse 72 02/05/23 11:22 Resp 16 02/05/23 02:00 BP 145/80 02/05/23 07:56 Pulse Ox 99 02/05/23 07:56 FiO2 21 01/27/23 08:14 Intake & Output 02/04/23 02/05/23 02/05/23 18:59 06:59 18:59 Intake Total 120 Output Total 1225 600 Balance -1105 -600 Intake: Oral 120 Output: Urine 1225 600 Other: Voiding Method Diaper Indwelling Catheter Indwelling Catheter - Exam GENERAL DESCRIPTION: An elderly male lying in bed in no distress HEENT: Previous track side erythema has significantly decreased no drainage RESPIRATORY SYSTEM: Unlabored breathing , decreased breath sounds at bases HEART: S1 S2 regular rate and rhythm , ABDOMEN: Soft , no tenderness EXTREMITIES: No edema feet - Labs CBC & Chem 7: 02/04/23 06:42 02/04/23 06:42 Labs: Abnormal Lab Results - Last 24 Hours (Table) 02/04/23 02/04/23 02/05/23 Range/Units 17:26 20:40 07:23 POC Glucose (mg/dL) 194 H 137 H 139 H (70-110) mg/dL 02/05/23 Range/Units 11:06 POC Glucose (mg/dL) 140 H (70-110) mg/dL Assessment and Plan (1) Leukocytosis Current Visit: Yes Status: Acute Code(s): D72.829 - ELEVATED WHITE BLOOD CELL COUNT, UNSPECIFIED SNOMED Code(s): 429598820 Plan: 1patient was in the hospital with debility weakness and there was concern for possible cellulitis to previous trach site patient did have minimal erythema at that site but no drainage was noticed. Did not have any fever however admitted have elevated white count 11.9 with a left shift CT of the chest was negative for any pneumonia abdominal supplemental examination 2-Patient has shown shown improvement as for his neck cellulitis is concerned and continue with nystatin cream to powder to be applied to the the previous trach site and will monitor clinical course closely Time with Patient: Less than 30
[2023-02-05 17:00] LABS: Glucose,Whole Blood 221 mg/dL (70-110)
[2023-02-05] MEDS: SODIUM CHLORIDE 0.9% 1,000 ML IV SCH (18:21)
[2023-02-05 20:18] LABS: Glucose,Whole Blood 157 mg/dL (70-110)
[2023-02-05] MEDS: INSULIN DETEMIR (LEVEMIR) 100 UNIT/ML SYR SQ SCH (20:50)
[2023-02-05] MEDS: ATORVASTATIN 40 MG TAB PO SCH (20:50)
[2023-02-05] MEDS: HYDROcodone/APAP 5-325MG 1 EACH TAB PO PRN (20:50)
[2023-02-06] MEDS: HEPARIN SODIUM,PORCINE/PF 5,000 UNIT/0.5 ML SYRINGE SQ SCH ×3 (00:05→16:37)
--- NOTE | 2023-02-06 01:34 | PN ---
PROGRESS NOTE SUBJECTIVE: A 67-year-old white male, came in with failure to thrive, stroke, hypoxemic respiratory failure, severe metabolic encephalopathy due to hypoxemia, urinary retention on admission retaining 1000 mL of urine and then 750. He had no gross hematuria. He has UTI. He is requesting pain medications today, which have been given. OBJECTIVE: CARDIOVASCULAR: S1, S2. LUNGS: Clear. GI: Soft. HEMATOLOGY: Negative Homans. ASSESSMENT: Asthma, coronary artery disease, heart failure, CVA, TIA, diabetes mellitus, hypertension, myocardial infarction, osteoarthritis history of chronic obstructive pulmonary disease, dementia, acute on chronic anemia, diabetes mellitus. He is being started on Flomax. PT/OT were involved, waiting for ENT for possible parotid mass. Waiting further opinion on this. Prognosis is guarded. MMODL / IJN: [id number] /
[2023-02-06 07:24] LABS: Glucose,Whole Blood 105 mg/dL (70-110)
[2023-02-06] MEDS: INSULIN ASPART (NovoLOG) 100 UNIT/ML VIAL SQ SCH ×3 (07:35→17:49)
[2023-02-06] MEDS: SODIUM CHLORIDE 0.9% 1,000 ML IV SCH ×2 (08:42→16:38)
[2023-02-06] MEDS: FENOFIBRATE 54 MG TAB PO SCH (08:43)
[2023-02-06] MEDS: CLOPIDOGREL 75 MG TAB PO SCH (08:43)
[2023-02-06] MEDS: amLODIPine 10 MG TAB PO SCH (08:43)
[2023-02-06] MEDS: LOSARTAN 25 MG TAB PO SCH (08:43)
[2023-02-06] MEDS: DULoxetine HCL 60 MG CAPSULE.DR PO SCH (08:43)
[2023-02-06] MEDS: POTASSIUM CHLORIDE ER 20 MEQ TAB.ER PO SCH (08:43)
[2023-02-06] MEDS: ASPIRIN 81 MG PO SCH (08:43)
[2023-02-06] MEDS: METOPROLOL TARTRATE 50 MG TAB PO SCH ×2 (08:43→21:28)
[2023-02-06] MEDS: MULTIVITAMINS, THERA 1 EACH TAB PO SCH (08:43)
[2023-02-06] MEDS: DOCUSATE 100 MG CAP PO SCH ×2 (08:43→21:28)
[2023-02-06] MEDS: buPROPion SR 100 MG TABLET.ER PO SCH (08:43)
[2023-02-06] MEDS: TAMSULOSIN 0.4 MG CAP.ER.24H PO SCH (08:43)
[2023-02-06] MEDS: NYSTATIN 100,000 UNIT/GM POWD 15 GM TOPICAL SCH ×3 (08:44→21:28)
[2023-02-06] MEDS: BUDESONIDE 0.5 MG/2 ML NEBU INHALATION SCH ×2 (09:58→19:53)
[2023-02-06] MEDS: IPRATROPIUM-ALBUTEROL 3 ML NEB INHALATION SCH ×4 (09:59→19:53)
--- NOTE | 2023-02-06 11:54 | P.PN ---
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 history of this very failure requiring tracheostomy subsequently worsened has been brought in the hospital for generalized weakness and debility and concern for possible cellulitis to the previous trach site patient did have a CT of the soft tissue of the neck did not show any evidence of abscess On today's evaluation that is 02/06/2023, the patient remains to be afebrile, the patient is breathing comfortably on room air, the patient denies chest pain or shortness of breath, no cough, the patient denies pain to the neck area, no nausea no vomiting no abdominal pain or diarrhea, patient is feeling better and asking when he can go to the shelter Objective - Vital Signs Vital signs: Vital Signs Temp 97.3 F L 02/06/23 10:58 Pulse 70 02/06/23 10:58 Resp 16 02/06/23 10:58 BP 145/69 02/06/23 10:58 Pulse Ox 100 02/06/23 10:58 FiO2 21 01/27/23 08:14 Intake & Output 02/05/23 02/06/23 02/06/23 18:59 06:59 18:59 Output Total 500 Balance -500 Output: Urine 500 Other: Voiding Method Indwelling Catheter Indwelling Catheter Indwelling Catheter - Exam GENERAL DESCRIPTION: An elderly male lying in bed in no distress HEENT: Previous track side erythema has significantly decreased no drainage RESPIRATORY SYSTEM: Unlabored breathing , decreased breath sounds at bases HEART: S1 S2 regular rate and rhythm , ABDOMEN: Soft , no tenderness EXTREMITIES: No edema feet - Labs CBC & Chem 7: 02/04/23 06:42 02/04/23 06:42 Labs: Abnormal Lab Results - Last 24 Hours (Table) 02/05/23 02/05/23 Range/Units 16:58 20:17 POC Glucose (mg/dL) 221 H 157 H (70-110) mg/dL Assessment and Plan (1) Leukocytosis Current Visit: Yes Status: Acute Code(s): D72.829 - ELEVATED WHITE BLOOD CELL COUNT, UNSPECIFIED SNOMED Code(s): 667883373 Plan: 1patient was in the hospital with debility weakness and there was concern for possible cellulitis to previous trach site patient did have minimal erythema at that site but no drainage was noticed. Patient did not have any fever however admitted have elevated white count 11.9 with a left shift CT of the chest was negative for any pneumonia abdominal supplemental examination 2-Patient has shown shown improvement as for as his neck cellulitis is concerned and continue with nystatin cream to powder to be applied to the the previous trach site and no need for any antibiotics on discharge Time with Patient: Less than 30
[2023-02-06 12:20] LABS: Glucose,Whole Blood 138 mg/dL (70-110)
--- NOTE | 2023-02-06 15:41 | P.CONS ---
History of Present Illness - Reason for Consult Consult date: 02/06/23 cervical LAD Requesting physician: Nima Reynolds - Chief Complaint failure to thrive - History of Present Illness Mister Mantilla is a very pleasant 67-year-old Male patient of primary care physician Dr. William Christine, [facility], [place] in 2021, CVA in 2021 with nearly no motor function in the right upper extremity, CHF, diabetes mellitus, HTN, hypertension, asthma and depression with a history of respiratory failure post aortic valve surgery requiring trach and PEG which have both been reversed. He is currently admitted for we have been asked to see because of suspected parotid mass. Patient is currently admitted for failure to thrive And redness around the previous trach site. He was suspected to have an infection so he had a CT neck and chest, parotid mass vs lymph nodes was reported. CT chest without contrast showing pulmonary hypertension, CT of the brain without contrast was negative for any lesions. On physical exam not clearly defined if there is a parotid mass versus a lymph node in the submandibular area but, there are numerous middle/posterior cervical enlarged lymph nodes as well as a preauricular lymph node. Patient denied any sweats, difficult or painful swallowing, difficulty breathing, no pain in the right side of the neck, no other complaints. Review of Systems 10 point review of systems is negative except as stated in interval history Past Medical History Past Medical History: Asthma, Coronary Artery Disease (CAD), Heart Failure, CVA/TIA, Diabetes Mellitus, Hypertension, Myocardial Infarction ([place]), Osteoarthritis (OA) Additional Past Medical History / Comment(s): HX OF BACK SURGERY WITH BACK PAIN, DIABETIC NEUROPATHY, HEART MURMUR., KERATOCONUS., STOOL TEST POSITIVE ., ECZEMA Last Myocardial Infarction Date:: 08/2022 History of Any Multi-Drug Resistant Organisms: C-DIFF Year Discovered:: 12/19/22 MDRO Source:: stool Past Surgical History: Back Surgery, Heart Catheterization With Stent Additional Past Surgical History / Comment(s): BACK SURGERY WITH DISC REMOVED AND FUSION., VASECTOMY, LEFT GREAT TOE. peg tube, tracheostomy. Past Anesthesia/Blood Transfusion Reactions: No Reported Reaction Date of Last Stent Placement:: 08/2022 Past Psychological History: Depression Smoking Status: Never smoker Past Alcohol Use History: None Reported Past Drug Use History: None Reported - Past Family History Mother Family Medical History: No Reported History Additional Family Medical History / Comment(s): of old age Father Additional Family Medical History / Comment(s): of old age Medications and Allergies Home Medications Medication Instructions Recorded Confirmed Type Atorvastatin [Lipitor] 40 mg PO HS 08/13/22 01/20/23 History Aspirin 81 mg PO DAILY tab 08/30/22 01/20/23 Rx Clopidogrel [Plavix] 75 mg PO DAILY 10/01/22 01/20/23 History Insulin Glargine,Hum.rec.anlog 20 units SQ BID 10/01/22 01/20/23 History [Lantus Solostar Pen] Losartan [Cozaar] 25 mg PO DAILY 10/01/22 01/20/23 History Albuterol Nebulized [Ventolin 2.5 mg INHALATION RT-Q6H PRN 12/09/22 01/20/23 History Nebulized] Insulin Aspart [NovoLOG Flexpen] See Protocol SQ ACHS 12/09/22 01/20/23 History Multivitamins, Thera [Multivitamin 1 tab PO DAILY 12/09/22 01/20/23 History (formulary)] glipiZIDE [Glucotrol] 5 mg PO DAILY 12/09/22 01/20/23 History Fenofibrate 54 mg PO DAILY 12/18/22 01/20/23 History Albuterol Sulfate [Ventolin HFA] 1 - 2 puff INHALATION RT-Q6H PRN 01/09/23 01/20/23 History DULoxetine HCL [Cymbalta] 60 mg PO DAILY 01/09/23 01/20/23 History Fluticasone Propion/Salmeterol 1 puff INHALATION RT-BID 01/09/23 01/20/23 History [Wixela 500-50 Inhub] Metoprolol Tartrate [Lopressor] 50 mg PO BID 01/09/23 01/20/23 History amLODIPine [Norvasc] 10 mg PO DAILY 01/09/23 01/20/23 History HYDROcodone/APAP 5-325MG [[place] 1 each PO Q6HR PRN #6 tab 01/12/23 01/20/23 Rx 5-325] QUEtiapine [SEROquel] 25 mg PO HS #30 tab 01/12/23 01/20/23 Rx Budesonide [Pulmicort] 0.5 mg INHALATION RT-BID 30 Days 01/25/23 Rx #60 ml Doxycycline [Vibramycin] 100 mg PO BID 7 Days #14 cap 01/25/23 Rx Ipratropium-Albuterol Nebulize 3 ml INHALATION RT-QID 30 Days 01/25/23 Rx [Duoneb 0.5 mg-3 mg/3 ml Soln] #120 each Nystatin 100,000Unit/gm Cream 1 applic TOPICAL BID 30 Days #30 01/25/23 Rx [Mycostatin Cream] each Potassium Chloride ER [K-Dur 20] 20 meq PO DAILY 30 Days #30 tab 01/25/23 Rx buPROPion SR [Wellbutrin SR] 100 mg PO DAILY 30 Days #30 tab 01/25/23 Rx Allergies Allergy/AdvReac Type Severity Reaction Status Date / Time Penicillins Allergy Unknown Verified 01/20/23 07:56 Physical Exam Vitals: Vital Signs Temp Pulse Pulse Resp BP Pulse Ox 02/06/23 10:09 80 02/06/23 09:59 80 02/06/23 07:20 97.8 F 76 16 137/76 100 02/06/23 02:00 97.6 F 59 L 16 132/72 99 02/05/23 20:00 97.5 F L 77 16 136/75 99 02/05/23 19:07 83 02/05/23 18:51 79 02/05/23 15:25 97.6 F 78 124/70 98 02/05/23 15:18 80 02/05/23 15:05 80 02/05/23 11:22 72 02/05/23 11:12 72 Intake and Output 02/05/23 02/06/23 02/06/23 22:59 06:59 14:59 Output Total 500 Balance -500 Output: Urine 500 Other: Voiding Method Indwelling Catheter Indwelling Catheter - Constitutional General appearance: average body habitus, cooperative, no acute distress - EENT Eyes: anicteric sclerae, EOMI ENT: hearing grossly normal, normal oropharynx - Neck Neck: lymphadenopathy (1 cm Preauricular lymph node, submandibular and several in the middle/posterior cervical chain to the supraclavicular area are enlarged,Largest 2 cm) - Respiratory Respiratory: bilateral: CTA - Cardiovascular Rhythm: regular Heart sounds: normal: S1, S2 Abnormal Heart Sounds: no systolic murmur, no diastolic murmur, no rub, no S3 Gallop, no S4 Gallop, no click, no other leg Peripheral Edema: bilateral: Trace - Gastrointestinal General gastrointestinal: no absent bowel sounds, no decreased bowel sounds, no distended, no hepatomegaly, no hyperactive bowel sounds, normal bowel sounds, no organomegaly, no rigid, no scaphoid, soft, no splenomegaly, no tenderness, no umbilical hernia, no ventral hernia - Integumentary Integumentary: pale - Musculoskeletal Musculoskeletal: right sided weakness (Right upper extremity secondary to CVA) - Psychiatric Psychiatric: A&O x's 3, appropriate affect Results CBC & Chem 7: 02/04/23 06:42 02/04/23 06:42 Labs: Abnormal Lab Results - Last 24 Hours (Table) 02/05/23 02/05/23 02/05/23 Range/Units 11:06 16:58 20:17 POC Glucose (mg/dL) 140 H 221 H 157 H (70-110) mg/dL Comments: CT neck report reviewed CT scan - chest: report reviewed CT Scan - head: report reviewed Assessment and Plan (1) Failure to thrive Current Visit: Yes Status: Acute Priority: High Code(s): [id number] - SNOMED Code(s): 34236960 (2) Lymphadenopathy, cervical Current Visit: Yes Status: Acute Priority: High Code(s): R59.0 - LOCALIZED ENLARGED LYMPH NODES SNOMED Code(s): 957588778 Plan: Left cervical lymphadenopathy -Reviewed physical exam findings with the patient. Explained to him that is not clear exactly what Is the cause of the palpable lymphadenopathy is on the left side of the neck -Largest up to 2 cm -Pending ENT assessment and recommendations for biopsy -Lymph node excision or core biopsy would be favored for adequate specimen for NGS/molecular testing. Patient was agreeable to pursue further testing to find out the underlying cause for the lymphadenopathy. attests: I have seen and examined patient, performed H&P, developed impression and plan of care. Discussed with dictator. Agree with documentation, dictated as a scribe
[2023-02-06 15:47] LABS: Basophils # (A) 0.04 X 10*3/uL (0.00-0.10); Basophils % (A) 0.7 %; Eosinophils # (A) 0.22 X 10*3/uL (0.04-0.35); Eosinophils % (A) 3.8 %; HCT 37.5 % (39.6-50.0); Immature Grans, Automated 0.2 %; Lymphocytes # (A) 1.25 X 10*3/uL (0.90-5.00); Lymphocytes % (A) 21.7 %; MCH 29.2 pg (27.0-32.0); MCV 91.2 fL (80.0-97.0); Mean Platelet Volume 9.2 fL (9.5-12.2); Monocytes # (A) 0.51 X 10*3/uL (0.20-1.00); Monocytes % (A) 8.9 %; NRBC Per 100 WBC 0 /100 WBCS (0.0-0.0); Neutrophils # (A) 3.73 X 10*3/uL (1.80-7.70); Neutrophils % (A) 64.7 %; Platelet Count 205 X 10*3/uL (140-440); RBC 4.11 X 10*6/uL (4.40-5.60); RDW 14.7 % (11.5-14.5); WBC 5.76 X 10*3/uL (4.50-10.00)
[2023-02-06 17:14] LABS: Glucose,Whole Blood 177 mg/dL (70-110)
[2023-02-06 17:28] LABS: African American GFR (CKD) 116.4 (60.0-200.0); Albumin 3.7 g/dL (3.8-4.9); Albumin/Globulin Ratio 1.71 (1.60-3.17); Anion Gap 10.8 mmol/L (10.00-18.00); BUN/Creat Ratio 11.91 Ratio (12.00-20.00); Blood Urea Nitrogen 7.7 mg/dL (9.0-27.0); Calcium 9.4 mg/dL (8.7-10.3); Carbon Dioxide 22.7 mmol/L (20.0-27.5); Globulin 2.2 g/dL (1.6-3.3); Non-African American GFR(CKD) 100.4 (60.0-200.0); Potassium 3.7 mmol/L (3.5-5.5); Total Bilirubin 0.4 mg/dL (0.30-1.20); Total Protein 5.9 g/dL (6.2-8.2)
[2023-02-06 20:48] LABS: Glucose,Whole Blood 201 mg/dL (70-110)
--- NOTE | 2023-02-06 21:16 | CT ---
EXAMINATION TYPE: CT facial bones w con DATE OF EXAM: 02/06/2023 COMPARISON: CT soft tissue neck 01/20/2023 HISTORY: 67-year-old male Parotid mass TECHNIQUE: Contiguous axial scanning of the facial bones performed with IV Contrast, patient injected with 100cc mL of Isovue 300. Coronal/sagittal reconstructions performed. CT DLP: 734.3 mGycm Automated exposure control for dose reduction was used. FINDINGS: Patient is obliqued toward the right on the scanner. This results in asymmetry of the hypopharynx and glottic structures. Redemonstrated left-sided cervical lymphadenopathy measuring up to 3.3 cm on coronal images 46 and 3. 2 cm on coronal image 57. The submandibular glands shows no gross abnormality. There is some linear thickening overlying the superficial aspect of the left parotid gland of questio nable etiology. There is asymmetric thickening along the left aryepiglottic fold which may be positional, axial image 7. Moderate, approximately 50% narrowing proximal left JAMIE secondary to prostatic calcifications. Fluid scattered within the left mastoid air cells. Degenerative disc disease C3-C4 and C5-C6. Facet and uncovertebral joint arthropathy with grade 1 ret rolisthesis C3-C4. Possible moderate to severe focal spinal canal stenosis here and also C3-C4. IMPRESSION: 1. LEFT-SIDED CERVICAL LYMPHADENOPATHY MEASURING UP TO 3.3 CM. SUSPECTED AN ENLARGED LYMPH NODE ADJAC ENT TO THE LEFT PAROTID TAIL RATHER THAN A PAROTID MASS. 2. SOME LINEAR SOFT TISSUE THICKENING ALONG THE SUPERFICIAL ASPECT OF THE LEFT PAROTID GLAND COULD RE FLECT SOME SCARRING FROM PRIOR INFLAMMATION. CLINICALLY CORRELATE. 3. ASYMMETRIC THICKENING ALONG THE LEFT ARYEPIGLOTTIC FOLD MAY BE POSITIONAL. CORRELATE WITH DIRECT V ISUALIZATION TO EXCLUDE NEOPLASM HERE. 4. MODERATE, APPROXIMATELY 50% PROXIMAL LEFT ICA STENOSIS. 5. CERVICAL SPONDYLOSIS WITH SUSPECTED MODERATE TO SEVERE FOCAL SPINAL CANAL STENOSES AT C2-C3 AND C3 -C4.
[2023-02-06] MEDS: INSULIN DETEMIR (LEVEMIR) 100 UNIT/ML SYR SQ SCH (21:28)
[2023-02-06] MEDS: HYDROcodone/APAP 5-325MG 1 EACH TAB PO PRN (21:28)
[2023-02-06] MEDS: ALPRAZolam 0.25 MG TAB PO PRN (21:28)
[2023-02-06] MEDS: ATORVASTATIN 40 MG TAB PO SCH (21:28)
[2023-02-07] MEDS: HEPARIN SODIUM,PORCINE/PF 5,000 UNIT/0.5 ML SYRINGE SQ SCH ×4 (02:17→23:20)
[2023-02-07] MEDS: SODIUM CHLORIDE 0.9% 1,000 ML IV SCH ×2 (05:26→20:45)
[2023-02-07] MEDS: ALPRAZolam 0.25 MG TAB PO PRN ×2 (05:35→15:18)
--- NOTE | 2023-02-07 05:47 | PN ---
PROGRESS NOTE SUBJECTIVE: This is a 67-year-old white male, states he is not doing well, he is not breathing well. OBJECTIVE: VITAL SIGNS: He is satting at 100, pulse ox is 99, temperature 97.8, respiratory rate 16, pulse 70s, blood pressure 140s/80s. CARDIOVASCULAR: S1, S2. LUNGS: Scattered rhonchi and wheeze. HEMATOLOGY: Negative for Homans. PSYCH: Fair mood and affect. possible group home, wants to go to [facility]. His hemoglobin is 12, white count 5.76. Sodium is 139, potassium 3.7. His sugars are mid 100s. CT showed possible sinus infection. parotid mass and is thickening along the left aryepiglottic fold in parotid area. He has 50% narrowing of the left CARBONATOR, degenerative disk disease of cervical spine, severe focal stenosis T3, T4, wait for oncology. Continue current treatments. Wait for PT, OT and group home placement. Prognosis is guarded. MMODL / IJN: [id number] /
[2023-02-07 07:06] LABS: Glucose,Whole Blood 81 mg/dL (70-110)
[2023-02-07] MEDS: INSULIN ASPART (NovoLOG) 100 UNIT/ML VIAL SQ SCH ×3 (07:22→18:12)
[2023-02-07] MEDS: BUDESONIDE 0.5 MG/2 ML NEBU INHALATION SCH ×2 (08:37→18:03)
[2023-02-07] MEDS: IPRATROPIUM-ALBUTEROL 3 ML NEB INHALATION SCH ×4 (08:40→18:03)
[2023-02-07] MEDS: ASPIRIN 81 MG PO SCH (09:25)
[2023-02-07] MEDS: MULTIVITAMINS, THERA 1 EACH TAB PO SCH (09:25)
[2023-02-07] MEDS: amLODIPine 10 MG TAB PO SCH (09:25)
[2023-02-07] MEDS: DULoxetine HCL 60 MG CAPSULE.DR PO SCH (09:25)
[2023-02-07] MEDS: METOPROLOL TARTRATE 50 MG TAB PO SCH ×2 (09:25→20:51)
[2023-02-07] MEDS: DOCUSATE 100 MG CAP PO SCH ×2 (09:25→20:51)
[2023-02-07] MEDS: POTASSIUM CHLORIDE ER 20 MEQ TAB.ER PO SCH (09:25)
[2023-02-07] MEDS: TAMSULOSIN 0.4 MG CAP.ER.24H PO SCH (09:25)
[2023-02-07] MEDS: CLOPIDOGREL 75 MG TAB PO SCH (09:25)
[2023-02-07] MEDS: buPROPion SR 100 MG TABLET.ER PO SCH (09:26)
[2023-02-07] MEDS: FENOFIBRATE 54 MG TAB PO SCH (09:26)
[2023-02-07] MEDS: NYSTATIN 100,000 UNIT/GM POWD 15 GM TOPICAL SCH ×3 (09:27→20:52)
[2023-02-07] MEDS: LOSARTAN 25 MG TAB PO SCH (09:32)
[2023-02-07 11:11] LABS: Glucose,Whole Blood 105 mg/dL (70-110)
[2023-02-07 17:14] LABS: Glucose,Whole Blood 197 mg/dL (70-110)
--- NOTE | 2023-02-07 17:22 | P.PN ---
Subjective Progress Note Date: 02/07/23 Principal diagnosis: Left parotid mass, cervical lymphadenopathy In follow-up today patient is not reporting any painful swallowing, regurgitation, unusual cough nausea or vomiting. He is actually anxiously awaiting dinner. Objective - Vital Signs Vital signs: Vital Signs Temp 98.3 F 02/07/23 12:12 Pulse 69 02/07/23 12:12 Resp 18 02/07/23 12:12 BP 146/71 02/07/23 12:12 Pulse Ox 97 02/07/23 12:12 FiO2 21 01/27/23 08:14 Intake & Output 02/06/23 02/07/23 02/07/23 18:59 06:59 18:59 Output Total 1300 1200 1500 Balance -1300 -1200 -1500 Weight 81.647 kg Output: Urine 1300 1200 1500 Other: Voiding Method Indwelling Catheter Indwelling Catheter Indwelling Catheter # Bowel Movements 1 - Constitutional General appearance: Present: average body habitus, cooperative, no acute distress - EENT Eyes: Present: anicteric sclerae, EOMI ENT: Present: hearing grossly normal - Neck Neck: Present: lymphadenopathy (Left-sided, multiple lymph nodes palpable) - Respiratory Details: Respirations even and unlabored at rest - Cardiovascular Details: Skin warm and dry to the touch - Musculoskeletal Musculoskeletal: Present: generalized weakness, strength equal bilaterally - Psychiatric Psychiatric: Present: A&O x's 3, appropriate affect - Labs CBC & Chem 7: 02/06/23 10:25 02/06/23 10:25 Labs: Abnormal Lab Results - Last 24 Hours (Table) 02/06/23 02/06/23 02/06/23 Range/Units 10:25 17:12 20:46 BUN 7.7 L (9.0-27.0) mg/dL BUN/Creatinine Ratio 11.91 L (12.00-20.00) Ratio Glucose 143 H (70-110) mg/dL POC Glucose (mg/dL) 177 H 201 H (70-110) mg/dL Total Protein 5.9 L (6.2-8.2) g/dL Albumin 3.7 L (3.8-4.9) g/dL - Imaging and Cardiology Face CT report reviewed Assessment and Plan (1) Failure to thrive Current Visit: Yes Status: Acute Priority: High Code(s): [id number] - SNOMED Code(s): 49610916 (2) Lymphadenopathy, cervical Current Visit: Yes Status: Acute Priority: High Code(s): R59.0 - LOCALIZED ENLARGED LYMPH NODES SNOMED Code(s): 472078340 Plan: Left cervical lymphadenopathy -Reviewed physical exam findings with the patient. Explained to him that is not clear exactly what Is the cause of the palpable lymphadenopathy is on the left side of the neck -Largest up to 2 cm -Pending ENT, IR assessment and see what the recommendations are for biopsy -Lymph node excision or core biopsy favored for adequate specimen and for NGS/molecular testing. Patient was agreeable to pursue further testing to find out the underlying cause for the lymphadenopathy.
[2023-02-07 20:14] LABS: Glucose,Whole Blood 148 mg/dL (70-110)
[2023-02-07] MEDS: ATORVASTATIN 40 MG TAB PO SCH (20:51)
[2023-02-07] MEDS: INSULIN DETEMIR (LEVEMIR) 100 UNIT/ML SYR SQ SCH (20:52)
[2023-02-07] MEDS: HYDROcodone/APAP 5-325MG 1 EACH TAB PO PRN (20:54)
--- NOTE | 2023-02-07 23:44 | PN ---
PROGRESS NOTE SUBJECTIVE: A 67-year-old white male left parotid mass, cervical lymphadenopathy. OBJECTIVE: VITAL SIGNS: Blood pressure 146/71, pulse ox is 97% on 3 L, pulse 69, respiratory rate 16 to 18. CARDIOVASCULAR: S1, S2. LUNGS: Clear. GI: Soft. HEMATOLOGY: Negative Homans. LABORATORY DATA: Labs are reviewed. ASSESSMENT: Failure to thrive; lymphadenopathy cervical, unclear etiology, lymph node excision or core biopsy favored for adequate specimen, macular degeneration, possibly get something to do that. Prognosis is guarded. MMODL / IJN: [id number] /
[2023-02-08 07:06] LABS: Glucose,Whole Blood 164 mg/dL (70-110)
[2023-02-08] MEDS: IPRATROPIUM-ALBUTEROL 3 ML NEB INHALATION SCH ×4 (08:04→18:04)
[2023-02-08] MEDS: BUDESONIDE 0.5 MG/2 ML NEBU INHALATION SCH ×2 (08:04→18:04)
[2023-02-08] MEDS: INSULIN ASPART (NovoLOG) 100 UNIT/ML VIAL SQ SCH ×3 (09:48→17:51)
[2023-02-08] MEDS: NYSTATIN 100,000 UNIT/GM POWD 15 GM TOPICAL SCH ×3 (10:14→21:23)
[2023-02-08] MEDS: HEPARIN SODIUM,PORCINE/PF 5,000 UNIT/0.5 ML SYRINGE SQ SCH ×3 (10:34→23:30)
[2023-02-08] MEDS: FENOFIBRATE 54 MG TAB PO SCH (10:35)
[2023-02-08] MEDS: DOCUSATE 100 MG CAP PO SCH ×2 (10:35→21:22)
[2023-02-08] MEDS: ASPIRIN 81 MG PO SCH (10:35)
[2023-02-08] MEDS: buPROPion SR 100 MG TABLET.ER PO SCH (10:35)
[2023-02-08] MEDS: MULTIVITAMINS, THERA 1 EACH TAB PO SCH (10:35)
[2023-02-08] MEDS: DULoxetine HCL 60 MG CAPSULE.DR PO SCH (10:35)
[2023-02-08] MEDS: SODIUM CHLORIDE 0.9% 1,000 ML IV SCH (10:36)
[2023-02-08] MEDS ORDERED: LACTATED RINGERS 1,000 ML IV ONE (11:00)
[2023-02-08 11:04] LABS: Glucose,Whole Blood 174 mg/dL (70-110)
[2023-02-08] MEDS ORDERED: ONDANSETRON 4 MG/2 ML VIAL ONE (11:20)
--- NOTE | 2023-02-08 11:23 | P.GSCN ---
History of Present Illness Consult date: 02/08/23 History of present illness: CHIEF COMPLAINT: Neck infection Reason for consult: Left cervical lymph node biopsy HISTORY OF PRESENT ILLNESS: This is a 67-year-old male who presented to the hospital on 01/19/2023 for possible neck infection. Patient has known history of stroke with right hemiplegia and is bedbound. Also history of respiratory failure status post aortic valve surgery requiring both a trach and PEG tube to be placed. These have both been reversed. Patient presented to the emergency room with complaints of cellulitis-type infection around the trach site and into the left side of his neck. The redness has resolved. There is no drainage from the old trach site. However there remains palpable left cervical lymph nodes. Patient has been seen by multiple consultants. Facial CT shows left-sided cervical lymphadenopathy measuring up to 3.3 cm. Patient denies any pain in his neck. History of biopsy of right parotid gland which was benign. PAST MEDICAL HISTORY: Asthma, Coronary Artery Disease (CAD), Heart Failure, CVA/TIA, Diabetes Mellitus, Hypertension, Myocardial Infarction ([place]), Osteoarthritis (OA) PAST SURGICAL HISTORY: See below MEDICATIONS: See below ALLERGIES: See below SOCIAL HISTORY: No illicit drug use. REVIEW OF SYSTEMS: CONSTITUTIONAL: Denies fever or chills. HEENT: Denies blurred vision, vision changes, or eye pain. Denies hemoptysis CARDIOVASCULAR: Denies chest pain or pressure. RESPIRATORY: No shortness of breath. GASTROINTESTINAL: See HPI for pertinent findings HEMATOLOGIC: Denies bleeding disorders. GENITOURINARY: Denies any blood in urine or increased urinary frequency. SKIN: Denies pruitis. Denies rash. PHYSICAL EXAM: VITAL SIGNS: Reviewed GENERAL: Well-developed in no acute distress. HEENT: Patient has palpable left cervical lymph nodes. No evidence of ce llulitis at this time. Tracheostomy SITE no evidence of any drainage or cellulitis ABDOMEN: Soft. Nondistended. Nontender NEUROLOGIC: Alert and oriented. Cranial nerves II through XII grossly intact. LABORATORY DATA: WBC 5.76 hgb 12 plt 205 sodium is 139 potassium 3.7 creatinine 0.6 IMAGING: Facial CT left-sided cervical lymphadenopathy measuring up to 3.3 cm. Suspected an enlarged lymph node adjacent to the left parotid tail rather than a parotid mass. Some linear soft tissue thickening along the superficial aspect of the left parotid gland could reflect some scarring from prior inflammation clinically correlate. Asymmetric thickening along the left aryepiglottic fold may be positional. Correlate with direct visualization to exclude neoplasm. Moderate approximately 50% proximal left ICA stenosis. Cervical spondylosis with suspected moderate to severe focal spinal canal stenosis at C2 to C3 and C3 to C4 ASSESSMENT: 1. Left cervical lymphadenopathy PLAN: -Patient scheduled for left cervical lymph node biopsy today with Dr. Le -Keep patient nothing by mouth Physician [employer] Laboratory Assistant note has been reviewed by physician. Signing provider agrees with the documented findings, assessment, and plan of care. Past Medical History Past Medical History: Asthma, Coronary Artery Disease (CAD), Heart Failure, CVA/TIA, Diabetes Mellitus, Hypertension, Myocardial Infarction ([place]), Osteoarthritis (OA) Additional Past Medical History / Comment(s): HX OF BACK SURGERY WITH BACK PAIN, DIABETIC NEUROPATHY, HEART MURMUR., KERATOCONUS., STOOL TEST POSITIVE ., ECZEMA Last Myocardial Infarction Date:: 08/2022 History of Any Multi-Drug Resistant Organisms: C-DIFF Year Discovered:: 12/19/22 MDRO Source:: stool Past Surgical History: Back Surgery, Heart Catheterization With Stent Additional Past Surgical History / Comment(s): BACK SURGERY WITH DISC REMOVED AND FUSION., VASECTOMY, LEFT GREAT TOE. peg tube, tracheostomy. Past Anesthesia/Blood Transfusion Reactions: No Reported Reaction Date of Last Stent Placement:: 08/2022 Past Psychological History: Depression Smoking Status: Never smoker Past Alcohol Use History: None Reported Past Drug Use History: None Reported - Past Family History Mother Family Medical History: No Reported History Additional Family Medical History / Comment(s): of old age Father Additional Family Medical History / Comment(s): of old age Medications and Allergies Home Medications Medication Instructions Recorded Confirmed Type Atorvastatin [Lipitor] 40 mg PO HS 08/13/22 01/20/23 History Aspirin 81 mg PO DAILY tab 08/30/22 01/20/23 Rx Clopidogrel [Plavix] 75 mg PO DAILY 10/01/22 01/20/23 History Insulin Glargine,Hum.rec.anlog 20 units SQ BID 10/01/22 01/20/23 History [Lantus Solostar Pen] Losartan [Cozaar] 25 mg PO DAILY 10/01/22 01/20/23 History Albuterol Nebulized [Ventolin 2.5 mg INHALATION RT-Q6H PRN 12/09/22 01/20/23 History Nebulized] Insulin Aspart [NovoLOG Flexpen] See Protocol SQ ACHS 12/09/22 01/20/23 History Multivitamins, Thera [Multivitamin 1 tab PO DAILY 12/09/22 01/20/23 History (formulary)] glipiZIDE [Glucotrol] 5 mg PO DAILY 12/09/22 01/20/23 History Fenofibrate 54 mg PO DAILY 12/18/22 01/20/23 History Albuterol Sulfate [Ventolin HFA] 1 - 2 puff INHALATION RT-Q6H PRN 01/09/23 01/20/23 History DULoxetine HCL [Cymbalta] 60 mg PO DAILY 01/09/23 01/20/23 History Fluticasone Propion/Salmeterol 1 puff INHALATION RT-BID 01/09/23 01/20/23 H istory [Wixela 500-50 Inhub] Metoprolol Tartrate [Lopressor] 50 mg PO BID 01/09/23 01/20/23 History amLODIPine [Norvasc] 10 mg PO DAILY 01/09/23 01/20/23 History HYDROcodone/APAP 5-325MG [[place] 1 each PO Q6HR PRN #6 tab 01/12/23 01/20/23 Rx 5-325] QUEtiapine [SEROquel] 25 mg PO HS #30 tab 01/12/23 01/20/23 Rx Budesonide [Pulmicort] 0.5 mg INHALATION RT-BID 30 Days 01/25/23 Rx #60 ml Doxycycline [Vibramycin] 100 mg PO BID 7 Days #14 cap 01/25/23 Rx Ipratropium-Albuterol Nebulize 3 ml INHALATION RT-QID 30 Days 01/25/23 Rx [Duoneb 0.5 mg-3 mg/3 ml Soln] #120 each Nystatin 100,000Unit/gm Cream 1 applic TOPICAL BID 30 Days #30 01/25/23 Rx [Mycostatin Cream] each Potassium Chloride ER [K-Dur 20] 20 meq PO DAILY 30 Days #30 tab 01/25/23 Rx buPROPion SR [Wellbutrin SR] 100 mg PO DAILY 30 Days #30 tab 01/25/23 Rx Allergies Allergy/AdvReac Type Severity Reaction Status Date / Time Penicillins Allergy Unknown Verified 01/20/23 07:56 Surgical - Exam Vital Signs Temp Pulse Resp BP Pulse Ox 98.6 F 110 H 22 140/83 98 01/19/23 21:15 01/19/23 21:15 01/19/23 21:15 01/19/23 21:15 01/19/23 21:15 Results - Labs 02/06/23 10:25 02/06/23 10:25 Abnormal Lab Results - Last 24 Hours (Table) 02/07/23 02/07/23 02/08/23 Range/Units 17:13 20:13 07:05 POC Glucose (mg/dL) 197 H 148 H 164 H (70-110) mg/dL 02/08/23 Range/Units 11:03 POC Glucose (mg/dL) 174 H (70-110) mg/dL
[2023-02-08] MEDS ORDERED: DEXAMETHASONE SOD PHOSPHATE 4 MG/ML 1 ML VIAL IVP ONE (11:31)
[2023-02-08] MEDS ORDERED: ONDANSETRON 4 MG/2 ML VIAL IVP ONE ×2 (11:31)
--- NOTE | 2023-02-08 11:52 | P.PN ---
Subjective Progress Note Date: 02/08/23 Principal diagnosis: Left parotid mass, cervical lymphadenopathy In follow-up today patient is not reporting any acute changes. No pain at this time. Objective - Vital Signs Vital signs: Vital Signs Temp 97.9 F 02/08/23 11:00 Pulse 80 02/08/23 11:00 Resp 16 02/08/23 11:00 BP 168/82 02/08/23 11:00 Pulse Ox 96 02/08/23 11:00 FiO2 21 01/27/23 08:14 Intake & Output 02/07/23 02/08/23 02/08/23 18:59 06:59 18:59 Intake Total 120 Output Total 1500 300 500 Balance -1500 -180 -500 Weight 80 kg Intake: Oral 120 Output: Urine 1500 300 500 Other: Voiding Method Indwelling Catheter Indwelling Catheter Indwelling Catheter # Bowel Movements 1 - Constitutional General appearance: Present: average body habitus, cooperative, no acute distress - EENT Eyes: Present: anicteric sclerae ENT: Present: hearing grossly normal - Neck Neck: Present: lymphadenopathy - Respiratory Respiratory: bilateral: CTA - Cardiovascular Details: Skin warm and dry to the touch - Peripheral edema leg Peripheral Edema: bilateral: None - Musculoskeletal Musculoskeletal: Present: generalized weakness - Psychiatric Psychiatric: Present: A&O x's 3 - Labs CBC & Chem 7: 02/06/23 10:25 02/06/23 10:25 Labs: Abnormal Lab Results - Last 24 Hours (Table) 02/07/23 02/07/23 02/08/23 Range/Units 17:13 20:13 07:05 POC Glucose (mg/dL) 197 H 148 H 164 H (70-110) mg/dL 02/08/23 Range/Units 11:03 POC Glucose (mg/dL) 174 H (70-110) mg/dL Assessment and Plan (1) Failure to thrive Current Visit: Yes Status: Acute Priority: High Code(s): [id number] - SNO MED Code(s): 19603223 (2) Lymphadenopathy, cervical Current Visit: Yes Status: Acute Priority: High Code(s): R59.0 - LOCALIZED ENLARGED LYMPH NODES SNOMED Code(s): 233349837 Plan: Left cervical lymphadenopathy -Dr. Olson discussed case with surgical PA. Lymph node excision scheduled. Once path returned, will request specimen be sent for NGS/molecular testing. attests: I have seen and examined patient, performed H&P, developed impression and plan of care. Discussed with dictator. Agree with dictation, documented as a scribe.
[2023-02-08] MEDS ORDERED: MIDAZOLAM 2 MG/2 ML VIAL ONE (11:58)
[2023-02-08] MEDS ORDERED: KETAMINE 10 MG/ML 20 ML VIAL ONE (11:58)
[2023-02-08] MEDS ORDERED: fentaNYL (PF) 50 MCG/ML 2 ML AMP ONE (11:58)
[2023-02-08] MEDS ORDERED: PROPOFOL 10 MG/ML 20 ML VIAL IV ONE (11:58)
[2023-02-08] MEDS ORDERED: BUPIVACAINE (PF) 0.25% 30 ML VIAL SQ ONE ×2 (12:23)
--- NOTE | 2023-02-08 12:47 | P.OP ---
Date of Procedure: 02/08/23 Preoperative Diagnosis: Lymphadenopathy Postoperative Diagnosis: Lymphadenopathy Implants: Excision of left cervical lymph node Anesthesia: MAC Surgeon: Joshua Le Estimated Blood Loss (ml): 4 Pathology: other (Left cervical lymph node) Condition: stable Disposition: PACU Description of Procedure: Patient's placed on the operating table in the supine position. He received IV sedation. His neck was prepped and draped in sterile fashion. Patient several enlarged lymph nodes in the preauricular postauricular and cervical position. The skin was anesthetized 1% local Xylocaine. A skin incision made over the left cervical enlarged lymph node. Using blunt and sharp dissection with cautery subcutaneous tissue divided. Retractors placed a wound. And then the lymph node was brought into view. The lymph node wasn't was then meticulous dissected using the Harmonic scissors. Specimen sent to pathology. There is no bleeding seen the wound. The was inspected for hemostasis no bleeding was seen. Surgicel pallor was placed the wound. The skin was then closed with 3-0 running nylon suture. Patient tolerated the procedure well.
[2023-02-08 13:04] LABS: Glucose,Whole Blood 148 mg/dL (70-110)
[2023-02-08] MEDS: amLODIPine 10 MG TAB PO SCH ×2 (13:16→14:09)
[2023-02-08] MEDS: METOPROLOL TARTRATE 50 MG TAB PO SCH ×2 (13:17→21:22)
[2023-02-08] MEDS: POTASSIUM CHLORIDE ER 20 MEQ TAB.ER PO SCH (13:17)
[2023-02-08] MEDS: LOSARTAN 25 MG TAB PO SCH ×2 (13:17→14:09)
[2023-02-08] MEDS: TAMSULOSIN 0.4 MG CAP.ER.24H PO SCH (14:09)
[2023-02-08] MEDS: ALPRAZolam 0.25 MG TAB PO PRN ×2 (15:20→21:22)
[2023-02-08 17:12] LABS: Glucose,Whole Blood 205 mg/dL (70-110)
[2023-02-08 20:46] LABS: Glucose,Whole Blood 208 mg/dL (70-110)
[2023-02-08] MEDS: ATORVASTATIN 40 MG TAB PO SCH (21:22)
[2023-02-08] MEDS: HYDROcodone/APAP 5-325MG 1 EACH TAB PO PRN (21:22)
[2023-02-08] MEDS: INSULIN DETEMIR (LEVEMIR) 100 UNIT/ML SYR SQ SCH (21:22)
[2023-02-09] MEDS: SODIUM CHLORIDE 0.9% 1,000 ML IV SCH ×3 (01:21→18:15)
--- NOTE | 2023-02-09 01:50 | PN ---
PROGRESS NOTE SUBJECTIVE: He is status post biopsy of a lymph node by surgery today. He is awaiting discharge planning. OBJECTIVE: VITAL SIGNS: Temperature is 97.5, pulse is 90s to 100s, sats in the upper 80s and low 90s when he is sleeping. He is up in the mid 90s when he is awake. Blood pressure is 140s to 160s over 80 to 84. CARDIOVASCULAR: S1, S2. LUNGS: Scattered rhonchi and wheeze. HEMATOLOGY: Negative Homans. PSYCH: Fair mood and affect. Sugars in the mid 200s. ASSESSMENT: Lymphadenopathy of the neck and chest, status post biopsy. Issa saw the patient for oncology, waiting for lymph node biopsy to come back. Left parotid mass does not appear to be cancerous, on repeat CAT scan of the neck. He does have hypertension acceleration, failure to thrive, prior CVA. Prognosis is guarded. Follow up in next 24 to 48 hours. Continue on oxygen. He had a prior CVA with generalized weakness, PT OT is involved. MMODL / IJN: [id number] /
[2023-02-09] MEDS: HYDROcodone/APAP 5-325MG 1 EACH TAB PO PRN ×2 (06:06→22:21)
[2023-02-09] MEDS: ALPRAZolam 0.25 MG TAB PO PRN ×3 (06:06→22:21)
[2023-02-09 07:19] LABS: Glucose,Whole Blood 130 mg/dL (70-110)
[2023-02-09] MEDS: INSULIN ASPART (NovoLOG) 100 UNIT/ML VIAL SQ SCH ×3 (07:49→17:29)
[2023-02-09] MEDS: IPRATROPIUM-ALBUTEROL 3 ML NEB INHALATION SCH ×4 (07:53→18:26)
[2023-02-09] MEDS: BUDESONIDE 0.5 MG/2 ML NEBU INHALATION SCH ×2 (07:53→18:26)
[2023-02-09] MEDS: HEPARIN SODIUM,PORCINE/PF 5,000 UNIT/0.5 ML SYRINGE SQ SCH ×3 (09:55→23:31)
[2023-02-09] MEDS: FENOFIBRATE 54 MG TAB PO SCH (09:56)
[2023-02-09] MEDS: DULoxetine HCL 60 MG CAPSULE.DR PO SCH (09:56)
[2023-02-09] MEDS: buPROPion SR 100 MG TABLET.ER PO SCH (09:56)
[2023-02-09] MEDS: ASPIRIN 81 MG PO SCH (09:56)
[2023-02-09] MEDS: POTASSIUM CHLORIDE ER 20 MEQ TAB.ER PO SCH (09:56)
[2023-02-09] MEDS: DOCUSATE 100 MG CAP PO SCH ×2 (09:56→22:21)
[2023-02-09] MEDS: METOPROLOL TARTRATE 50 MG TAB PO SCH ×2 (09:56→22:21)
[2023-02-09] MEDS: NYSTATIN 100,000 UNIT/GM POWD 15 GM TOPICAL SCH ×3 (09:56→22:22)
[2023-02-09] MEDS: MULTIVITAMINS, THERA 1 EACH TAB PO SCH (09:56)
[2023-02-09] MEDS: TAMSULOSIN 0.4 MG CAP.ER.24H PO SCH (09:56)
[2023-02-09] MEDS: LOSARTAN 25 MG TAB PO SCH (09:56)
[2023-02-09] MEDS: amLODIPine 10 MG TAB PO SCH (09:56)
[2023-02-09 11:08] LABS: Glucose,Whole Blood 160 mg/dL (70-110)
[2023-02-09 11:41] LABS: African American GFR (CKD) 119.7 (60.0-200.0); Albumin 3.7 g/dL (3.8-4.9); Albumin/Globulin Ratio 1.85 (1.60-3.17); Anion Gap 9.1 mmol/L (10.00-18.00); BUN/Creat Ratio 20.67 Ratio (12.00-20.00); Blood Urea Nitrogen 12.4 mg/dL (9.0-27.0); Calcium 9.8 mg/dL (8.7-10.3); Carbon Dioxide 25.9 mmol/L (20.0-27.5); Non-African American GFR(CKD) 103.3 (60.0-200.0); Potassium 3.9 mmol/L (3.5-5.5); Total Bilirubin 0.4 mg/dL (0.30-1.20); Total Protein 5.7 g/dL (6.2-8.2)
--- NOTE | 2023-02-09 11:59 | P.PN ---
Subjective Progress Note Date: 02/09/23 Principal diagnosis: Left parotid mass, cervical lymphadenopathy In follow-up today patient states that he is doing well after LN excision yesterday, no fever, difficulty swallowing, or pain. Objective - Vital Signs Vital signs: Vital Signs Temp 97.8 F 02/09/23 07:22 Pulse 80 02/09/23 08:11 Resp 16 02/09/23 07:22 BP 133/81 02/09/23 07:22 Pulse Ox 98 02/09/23 07:54 FiO2 21 01/27/23 08:14 Intake & Output 02/08/23 02/09/23 02/09/23 18:59 06:59 18:59 Intake Total 750 Output Total 1005 Balance -255 Weight 80 kg Intake: IV 750 Output: Urine 1000 Estimated Blood Loss 5 Other: Voiding Method Indwelling Catheter Indwelling Catheter Indwelling Catheter # Voids 1 # Bowel Movements 1 1 - Constitutional General appearance: Present: average body habitus, cooperative, no acute distress - EENT Eyes: Present: anicteric sclerae ENT: Present: hearing grossly normal - Neck Details: Left neck dressing C/D/I - Respiratory Details: resp even and unlabored - Musculoskeletal Musculoskeletal: Present: generalized weakness - Psychiatric Psychiatric: Present: A&O x's 3, appropriate affect, intact judgment & insight - Labs CBC & Chem 7: 02/06/23 10:25 02/09/23 07:11 Labs: Abnormal Lab Results - Last 24 Hours (Table) 02/08/23 02/08/23 02/08/23 Range/Units 13:02 17:11 20:44 Anion Gap (10.00-18.00) mmol/L BUN/Creatinine Ratio (12.00-20.00) Ratio Glucose (70-110) mg/dL POC Glucose (mg/dL) 148 H 205 H 208 H (70-110) mg/dL AST (14-35) U/L Total Protein (6.2-8.2) g/dL Albumin (3.8-4.9) g/dL 02/09/23 02/09/23 02/09/23 Range/Units 07:11 07:18 11:07 Anion Gap 9.10 L (10.00-18.00) mmol/L BUN/Creatinine Ratio 20.67 H (12.00-20.00) Ratio Glucose 127 H (70-110) mg/dL POC Glucose (mg/dL) 130 H 160 H (70-110) mg/dL AST 13 L (14-35) U/L Total Protein 5.7 L (6.2-8.2) g/dL Albumin 3.7 L (3.8-4.9) g/dL Assessment and Plan (1) Failure to thrive Current Visit: Yes Status: Acute Priority: High Code(s): [id number] - SNOMED Code(s): 21358557 (2) Lymphadenopathy, cervical Current Visit: Yes Status: Acute Priority: High Code(s): R59.0 - LOCALIZED ENLARGED LYMPH NODES SNOMED Code(s): 530149719 Plan: Left cervical lymphadenopathy -S/P LN excision -Once path returned, will request specimen be sent for NGS/molecular testing. -Will plan for f/u in the office after results are available attests: I have seen and examined patient, performed H&P, developed impression and plan of care. Discussed with dictator. Agree with dictation, documented as a scribe.
[2023-02-09 12:15] LABS: Basophils # (A) 0.04 X 10*3/uL (0.00-0.10); Basophils % (A) 0.6 %; Eosinophils # (A) 0.09 X 10*3/uL (0.04-0.35); Eosinophils % (A) 1.4 %; HGB 11.6 g/dL (13.0-17.0); Immature Grans, Automated 0.9 %; Lymphocytes % (A) 33.4 %; MCH 29.7 pg (27.0-32.0); MCHC 33.1 g/dL (32.0-37.0); MCV 89.7 fL (80.0-97.0); Mean Platelet Volume 9.1 fL (9.5-12.2); Monocytes % (A) 9.1 %; NRBC Per 100 WBC 0 /100 WBCS (0.0-0.0); Neutrophils # (A) 3.59 X 10*3/uL (1.80-7.70); Neutrophils % (A) 54.6 %; Platelet Count 263 X 10*3/uL (140-440); RDW 15.1 % (11.5-14.5); WBC 6.58 X 10*3/uL (4.50-10.00)
--- NOTE | 2023-02-09 13:11 | P.PN ---
Subjective Progress Note Date: 02/09/23 CHIEF COMPLAINT: Lymphadenopathy HISTORY OF PRESENT ILLNESS: Patient is postop day #1 excision of left cervical lymph node. Patient reports no pain. Tolerating dysphagia chopped diet. Afebrile. WBC 6.58H 11.6 PHYSICAL EXAM: VITAL SIGNS: Reviewed. GENERAL: Well-developed in no acute distress. HEENT: Left neck incision is clean dry and intact. There is some swelling noted. Nontender. ABDOMEN: Soft. Nondistended. Nontender. NEUROLOGIC: Alert and oriented. Cranial nerves II through XII grossly intact. ASSESSMENT: 1. Lymphadenopathy is status post excision of left cervical lymph node PLAN: -Follow up on pathology results -Continue supportive care Physician Weight Control Lecturer note has been reviewed by physician. Signing provider agrees with the documented findings, assessment, and plan of care. Objective - Vital Signs Vital signs: Vital Signs Temp 97.6 F 02/09/23 12:15 Pulse 82 02/09/23 12:15 Resp 16 02/09/23 12:15 BP 130/83 02/09/23 12:15 Pulse Ox 97 02/09/23 12:15 FiO2 21 01/27/23 08:14 Intake & Output 02/08/23 02/09/23 02/09/23 18:59 06:59 18:59 Intake Total 750 Output Total 1005 Balance -255 Weight 80 kg Intake: IV 750 Output: Urine 1000 Estimated Blood Loss 5 Other: Voiding Method Indwelling Catheter Indwelling Catheter Indwelling Catheter # Voids 1 # Bowel Movements 1 1 - Labs CBC & Chem 7: 02/09/23 07:11 02/09/23 07:11 Labs: Abnormal Lab Results - Last 24 Hours (Table) 02/08/23 02/08/23 02/09/23 Range/Units 17:11 20:44 07:11 RBC 3.90 L (4.40-5.60) X 10*6/uL Hgb 11.6 L (13.0-17.0) g/dL Hct 35.0 L (39.6-50.0) % RDW 15.1 H (11.5-14.5) % MPV 9.1 L (9.5-12.2) fL Immature Gran # 0.06 H (0.00-0.04) X 10*3/uL Anion Gap (10.00-18.00) mmol/L BUN/Creatinine Ratio (12.00-20.00) Ratio Glucose (70-110) mg/dL POC Glucose (mg/dL) 205 H 208 H (70-110) mg/dL AST (14-35) U/L Total Protein (6.2-8.2) g/dL Albumin (3.8-4.9) g/dL 02/09/23 02/09/23 02/09/23 Range/Units 07:11 07:18 11:07 RBC (4.40-5.60) X 10*6/uL Hgb (13.0-17.0) g/dL Hct (39.6-50.0) % RDW (11.5-14.5) % MPV (9.5-12.2) fL Immature Gran # (0.00-0.04) X 10*3/uL Anion Gap 9.10 L (10.00-18.00) mmol/L BUN/Creatinine Ratio 20.67 H (12.00-20.00) Ratio Glucose 127 H (70-110) mg/dL POC Glucose (mg/dL) 130 H 160 H (70-110) mg/dL AST 13 L (14-35) U/L Total Protein 5.7 L (6.2-8.2) g/dL Albumin 3.7 L (3.8-4.9) g/dL
[2023-02-09 17:05] LABS: Glucose,Whole Blood 155 mg/dL (70-110)
[2023-02-09 21:00] LABS: Glucose,Whole Blood 169 mg/dL (70-110)
[2023-02-09] MEDS: ATORVASTATIN 40 MG TAB PO SCH (22:21)
[2023-02-09] MEDS: INSULIN DETEMIR (LEVEMIR) 100 UNIT/ML SYR SQ SCH (22:22)
--- NOTE | 2023-02-10 05:33 | PN ---
PROGRESS NOTE SUBJECTIVE: The patient to get PT, OT, possibly waiting for jail placement. Remains on current treatment for diabetes, prior stroke with leg weakness. Oxygen levels are nocturnal. Surgical consult was done status post lymphadenopathy, biopsy yesterday of the left cervical lymph node. He is on dysphagia chopped diet. Continue current treatments. OBJECTIVE: LUNGS: Clear. GI: Soft. GENERAL: He is giving appropriate answers. PSYCH: Fair mood and affect. Follow up on pathology. Continue with insulin, PT OT, nocturnal oxygen for hypoxemia, COPD. Prognosis guarded. MMODL / IJN: [id number] /
[2023-02-10 07:08] LABS: Glucose,Whole Blood 138 mg/dL (70-110)
[2023-02-10] MEDS: INSULIN ASPART (NovoLOG) 100 UNIT/ML VIAL SQ SCH ×3 (08:06→18:03)
[2023-02-10] MEDS: IPRATROPIUM-ALBUTEROL 3 ML NEB INHALATION SCH ×4 (08:18→20:51)
[2023-02-10] MEDS: BUDESONIDE 0.5 MG/2 ML NEBU INHALATION SCH ×2 (08:18→20:51)
[2023-02-10] MEDS: DOCUSATE 100 MG CAP PO SCH ×2 (10:01→20:48)
[2023-02-10] MEDS: HEPARIN SODIUM,PORCINE/PF 5,000 UNIT/0.5 ML SYRINGE SQ SCH ×3 (10:01→23:35)
[2023-02-10] MEDS: LOSARTAN 25 MG TAB PO SCH (10:02)
[2023-02-10] MEDS: FENOFIBRATE 54 MG TAB PO SCH (10:02)
[2023-02-10] MEDS: ASPIRIN 81 MG PO SCH (10:02)
[2023-02-10] MEDS: buPROPion SR 100 MG TABLET.ER PO SCH (10:02)
[2023-02-10] MEDS: METOPROLOL TARTRATE 50 MG TAB PO SCH ×2 (10:03→20:48)
[2023-02-10] MEDS: MULTIVITAMINS, THERA 1 EACH TAB PO SCH (10:03)
[2023-02-10] MEDS: TAMSULOSIN 0.4 MG CAP.ER.24H PO SCH (10:03)
[2023-02-10] MEDS: DULoxetine HCL 60 MG CAPSULE.DR PO SCH (10:03)
[2023-02-10] MEDS: amLODIPine 10 MG TAB PO SCH (10:03)
[2023-02-10] MEDS: POTASSIUM CHLORIDE ER 20 MEQ TAB.ER PO SCH (10:03)
[2023-02-10] MEDS: ALPRAZolam 0.25 MG TAB PO PRN ×2 (10:04→20:48)
[2023-02-10 11:28] LABS: Glucose,Whole Blood 190 mg/dL (70-110)
[2023-02-10 13:24] VITALS: BMI 25.2
--- NOTE | 2023-02-10 14:49 | P.PN ---
Subjective Progress Note Date: 02/10/23 Principal diagnosis: cervical lymphadenopathy At today's visit patient is resting comfortably in bed. Patient denies neck pain. Patient denies dysphagia. Patient denies any episodes of bleeding. S/p LN biopsy yesterday. Objective - Vital Signs Vital signs: Vital Signs Temp 97.5 F L 02/10/23 11:16 Pulse 66 02/10/23 11:51 Resp 16 02/10/23 11:16 BP 150/73 02/10/23 11:16 Pulse Ox 100 02/10/23 11:16 FiO2 21 01/27/23 08:14 Intake & Output 02/09/23 02/10/23 02/10/23 18:59 06:59 18:59 Intake Total 300 Output Total 250 500 600 Balance -250 -200 -600 Weight 80 kg Intake: Intake, IV Titration 300 Amount Sodium Chloride 0.9% 1, 300 000 ml @ 75 mls/hr IV . [id number] JUANA Rx#:[id number] Output: Urine 250 500 600 Other: Voiding Method Indwelling Catheter Indwelling Catheter Indwelling Catheter # Voids 1 # Bowel Movements 1 - Constitutional General appearance: Present: average body habitus, no acute distress - EENT Eyes: Present: anicteric sclerae, EOMI ENT: Present: hearing grossly normal - Neck Details: left neck edema Neck: Present: lymphadenopathy - Respiratory Details: Breathing is even and unlabored - Cardiovascular Details: Skin warm and dry - Integumentary Integumentary: Present: normal - Neurologic Neurologic: Present: CNII-XII intact - Musculoskeletal Musculoskeletal: Present: strength equal bilaterally - Psychiatric Psychiatric: Present: A&O x's 3, appropriate affect, intact judgment & insight - Labs CBC & Chem 7: 02/09/23 07:11 02/09/23 07:11 Labs: Abnormal Lab Results - Last 24 Hours (Table) 02/09/23 02/09/23 02/10/23 Range/Units 17:04 20:58 07:07 POC Glucose (mg/dL) 155 H 169 H 138 H (70-110) mg/dL 02/10/23 Range/Units 11:20 POC Glucose (mg/dL) 190 H (70-110) mg/dL Assessment and Plan (1) Lymphadenopathy, cervical Current Visit: Yes Status: Acute Priority: High Code(s): R59.0 - LOCALIZED ENLARGED LYMPH NODES SNOMED Code(s): 719420303 Plan: Left cervical lymphadenopathy -S/P LN excision -Once path resulted, will request specimen be sent for NGS/molecular testing. -Will plan for f/u in the office after results are available, f/u in discharge plan
[2023-02-10 15:15] LABS: African American GFR (CKD) 106.4 (60.0-200.0); Albumin 3.9 g/dL (3.8-4.9); Albumin/Globulin Ratio 1.86 (1.60-3.17); Anion Gap 9.7 mmol/L (10.00-18.00); BUN/Creat Ratio 16.13 Ratio (12.00-20.00); Blood Urea Nitrogen 12.9 mg/dL (9.0-27.0); Calcium 10.1 mg/dL (8.7-10.3); Carbon Dioxide 26.3 mmol/L (20.0-27.5); Globulin 2.1 g/dL (1.6-3.3); Non-African American GFR(CKD) 91.8 (60.0-200.0); Potassium 4.5 mmol/L (3.5-5.5); Total Bilirubin 0.4 mg/dL (0.30-1.20)
[2023-02-10] MEDS: HYDROcodone/APAP 5-325MG 1 EACH TAB PO PRN ×2 (15:20→23:34)
[2023-02-10 15:25] LABS: Basophils # (A) 0.05 X 10*3/uL (0.00-0.10); Basophils % (A) 0.9 %; Eosinophils # (A) 0.18 X 10*3/uL (0.04-0.35); Eosinophils % (A) 3.3 %; HCT 38.4 % (39.6-50.0); HGB 12.1 g/dL (13.0-17.0); Immature Grans, Automated 0.2 %; Lymphocytes # (A) 1.49 X 10*3/uL (0.90-5.00); Lymphocytes % (A) 27.3 %; MCH 29.3 pg (27.0-32.0); MCHC 31.5 g/dL (32.0-37.0); Mean Platelet Volume 9.1 fL (9.5-12.2); Monocytes # (A) 0.42 X 10*3/uL (0.20-1.00); Monocytes % (A) 7.7 %; NRBC Per 100 WBC 0 /100 WBCS (0.0-0.0); Neutrophils % (A) 60.6 %; Platelet Count 213 X 10*3/uL (140-440); RBC 4.13 X 10*6/uL (4.40-5.60); RDW 15.2 % (11.5-14.5); WBC 5.45 X 10*3/uL (4.50-10.00)
[2023-02-10] MEDS: SODIUM CHLORIDE 0.9% 1,000 ML IV SCH (15:49)
[2023-02-10] MEDS: NYSTATIN 100,000 UNIT/GM POWD 15 GM TOPICAL SCH ×3 (15:49→20:49)
[2023-02-10 17:06] LABS: Glucose,Whole Blood 181 mg/dL (70-110)
[2023-02-10 20:35] LABS: Glucose,Whole Blood 157 mg/dL (70-110)
[2023-02-10] MEDS: INSULIN DETEMIR (LEVEMIR) 100 UNIT/ML SYR SQ SCH (20:48)
[2023-02-10] MEDS: ATORVASTATIN 40 MG TAB PO SCH (20:48)
--- NOTE | 2023-02-10 23:22 | PN ---
PROGRESS NOTE SUBJECTIVE: This is a 67-year-old white male who is alert and oriented x3. He is giving appropriate answers. His family is here talking about blood in the Dillard catheter, although he tried to pull the Dillard catheter yesterday and he blood from pulling his Dillard out or trying to pull it out. OBJECTIVE: VITAL SIGNS: Temperature 97.5, pulse 75, respiratory rate 14 to 16, blood pressure 150/73, and O2 is 100 on room air. CARDIOVASCULAR: S1, S2. LUNGS: Clear. GI: Soft. HEMATOLOGY: Negative for Homans. PSYCH: Fair mood and affect. We will check his hemoglobin again in the morning, currently is 12.1. Sodium, potassium are normal, 137, 4.5, total protein 6. ASSESSMENT: Aortic stenosis, altered mental status, prior stroke, generalized weakness, diabetes mellitus, COPD, nocturnal hypoxemia. Continue current treatments. His medicines stable. His blood pressure is stable. Check hemoglobin in the morning due to hematuria in the Dillard bag. Prognosis guarded. MMODL / IJN: [id number] /
[2023-02-11] MEDS: SODIUM CHLORIDE 0.9% 1,000 ML IV SCH ×2 (06:19→17:38)
[2023-02-11 07:27] LABS: Glucose,Whole Blood 154 mg/dL (70-110)
[2023-02-11] MEDS: INSULIN ASPART (NovoLOG) 100 UNIT/ML VIAL SQ SCH ×3 (07:54→17:39)
[2023-02-11] MEDS: IPRATROPIUM-ALBUTEROL 3 ML NEB INHALATION SCH ×4 (08:40→20:47)
[2023-02-11] MEDS: BUDESONIDE 0.5 MG/2 ML NEBU INHALATION SCH ×2 (08:40→20:47)
[2023-02-11] MEDS: amLODIPine 10 MG TAB PO SCH (09:25)
[2023-02-11] MEDS: LOSARTAN 25 MG TAB PO SCH (09:25)
[2023-02-11] MEDS: POTASSIUM CHLORIDE ER 20 MEQ TAB.ER PO SCH (09:25)
[2023-02-11] MEDS: FENOFIBRATE 54 MG TAB PO SCH (09:25)
[2023-02-11] MEDS: DULoxetine HCL 60 MG CAPSULE.DR PO SCH (09:25)
[2023-02-11] MEDS: HEPARIN SODIUM,PORCINE/PF 5,000 UNIT/0.5 ML SYRINGE SQ SCH ×3 (09:25→23:27)
[2023-02-11] MEDS: ALPRAZolam 0.25 MG TAB PO PRN ×3 (09:25→23:27)
[2023-02-11] MEDS: DOCUSATE 100 MG CAP PO SCH ×2 (09:25→21:07)
[2023-02-11] MEDS: buPROPion SR 100 MG TABLET.ER PO SCH (09:25)
[2023-02-11] MEDS: ASPIRIN 81 MG PO SCH (09:25)
[2023-02-11] MEDS: TAMSULOSIN 0.4 MG CAP.ER.24H PO SCH (09:25)
[2023-02-11] MEDS: METOPROLOL TARTRATE 50 MG TAB PO SCH ×2 (09:25→21:07)
[2023-02-11] MEDS: MULTIVITAMINS, THERA 1 EACH TAB PO SCH (09:25)
[2023-02-11] MEDS: NYSTATIN 100,000 UNIT/GM POWD 15 GM TOPICAL SCH ×3 (09:26→21:08)
[2023-02-11 11:28] LABS: Glucose,Whole Blood 184 mg/dL (70-110)
--- NOTE | 2023-02-11 12:39 | P.PN ---
Subjective Progress Note Date: 02/11/23 The patient was seen by for urine retention approximately week ago. Apparently the patient yanked on the catheter yesterday and there was some bleeding. The bleeding has cleared. Objective - Vital Signs Vital signs: Vital Signs Temp 97.7 F 02/11/23 11:13 Pulse 70 02/11/23 11:54 Resp 16 02/11/23 11:13 BP 134/67 02/11/23 11:13 Pulse Ox 99 02/11/23 11:13 FiO2 21 01/27/23 08:14 Intake & Output 02/10/23 02/11/23 02/11/23 18:59 06:59 18:59 Intake Total 900 Output Total 1300 1200 Balance -1300 -1200 900 Weight 80 kg Intake: Intake, IV Titration 900 Amount Lactated Ringers 1,000 ml 900 @ 0 mls/hr IV .64 [facility] Rx#:[id number] Output: Urine 1300 1200 Other: Voiding Method Indwelling Catheter Indwelling Catheter Indwelling Catheter # Bowel Movements 1 - Genitourinary Genitourinary Comment(s): Indwelling catheter with clear urine - Labs CBC & Chem 7: 02/10/23 10:53 02/10/23 10:53 Labs: Abnormal Lab Results - Last 24 Hours (Table) 02/10/23 02/10/23 02/10/23 Range/Units 10:53 10:53 17:04 RBC 4.13 L (4.40-5.60) X 10*6/uL Hgb 12.1 L (13.0-17.0) g/dL Hct 38.4 L (39.6-50.0) % MCHC 31.5 L (32.0-37.0) g/dL RDW 15.2 H (11.5-14.5) % MPV 9.1 L (9.5-12.2) fL Anion Gap 9.70 L (10.00-18.00) mmol/L Glucose 190 H (70-110) mg/dL POC Glucose (mg/dL) 181 H (70-110) mg/dL Total Protein 6.0 L (6.2-8.2) g/dL 02/10/23 02/11/23 02/11/23 Range/Units 20:32 07:25 11:17 RBC (4.40-5.60) X 10*6/uL Hgb (13.0-17.0) g/dL Hct (39.6-50.0) % MCHC (32.0-37.0) g/dL RDW (11.5-14.5) % MPV (9.5-12.2) fL Anion Gap (10.00-18.00) mmol/L Glucose (70-110) mg/dL POC Glucose (mg/dL) 157 H 154 H 184 H (70-110) mg/dL Total Protein (6.2-8.2) g/dL Assessment and Plan Assessment: Impression: Urinary retention. Traumatic hematuria. Recommendations: The patient will need an eventual voiding trial or to discharge and perhaps repeat evaluation as an outpatient for his urine retention.
[2023-02-11 17:13] LABS: Glucose,Whole Blood 167 mg/dL (70-110)
[2023-02-11 19:56] LABS: Glucose,Whole Blood 155 mg/dL (70-110)
[2023-02-11] MEDS: ATORVASTATIN 40 MG TAB PO SCH (21:07)
[2023-02-11] MEDS: HYDROcodone/APAP 5-325MG 1 EACH TAB PO PRN (21:07)
[2023-02-11] MEDS: INSULIN DETEMIR (LEVEMIR) 100 UNIT/ML SYR SQ SCH (21:08)
--- NOTE | 2023-02-12 01:34 | PN ---
PROGRESS NOTE SUBJECTIVE: A 67-year-old white male, continues to do well from medical standpoint. He is awake. He is giving appropriate answers. OBJECTIVE: VITAL SIGNS: Blood pressure 128/71, O2 of 98% on room air, pulse 70s to 80s, respiratory rate 16 to 18, temp 98.5. CARDIOVASCULAR: S1, S2. LUNGS: Transmitted upper sounds. HEMATOLOGY: Negative Homans. PSYCH: Fair mood and affect. Dr. Eaton saw him for urinary retention. catheter due to large amount of bleeding. The bleeding has cleared up. Hemoglobin is 12.1. Urinary retention, traumatic hematuria, gone through a voiding trial. We will discharge and evaluate as an outpatient. Continue to monitor hemoglobin. Continue treatment for lymph node biopsy, which pathology is pending for a lymphadenopathy of the neck. He had prior stroke, going to rehab. He has aortic stenosis for which surgical consult may be done. He may want to have surgery on his valve. It depends on how he gets guardianship. Prognosis guarded. MMODL / IJN: [id number] /
[2023-02-12] MEDS: HYDROcodone/APAP 5-325MG 1 EACH TAB PO PRN ×2 (06:33→21:53)
[2023-02-12] MEDS: ALPRAZolam 0.25 MG TAB PO PRN ×2 (06:33→16:41)
[2023-02-12] MEDS: SODIUM CHLORIDE 0.9% 1,000 ML IV SCH ×2 (06:34→16:42)
[2023-02-12 07:16] LABS: Glucose,Whole Blood 169 mg/dL (70-110)
[2023-02-12] MEDS: BUDESONIDE 0.5 MG/2 ML NEBU INHALATION SCH ×2 (08:25→19:38)
[2023-02-12] MEDS: IPRATROPIUM-ALBUTEROL 3 ML NEB INHALATION SCH ×4 (08:25→19:38)
[2023-02-12] MEDS: POTASSIUM CHLORIDE ER 20 MEQ TAB.ER PO SCH (08:29)
[2023-02-12] MEDS: DOCUSATE 100 MG CAP PO SCH ×2 (08:29→21:53)
[2023-02-12] MEDS: buPROPion SR 100 MG TABLET.ER PO SCH (08:29)
[2023-02-12] MEDS: amLODIPine 10 MG TAB PO SCH (08:30)
[2023-02-12] MEDS: METOPROLOL TARTRATE 50 MG TAB PO SCH ×2 (08:30→21:54)
[2023-02-12] MEDS: DULoxetine HCL 60 MG CAPSULE.DR PO SCH (08:30)
[2023-02-12] MEDS: MULTIVITAMINS, THERA 1 EACH TAB PO SCH (08:30)
[2023-02-12] MEDS: HEPARIN SODIUM,PORCINE/PF 5,000 UNIT/0.5 ML SYRINGE SQ SCH ×3 (08:30→21:54)
[2023-02-12] MEDS: ASPIRIN 81 MG PO SCH (08:30)
[2023-02-12] MEDS: LOSARTAN 25 MG TAB PO SCH (08:30)
[2023-02-12] MEDS: FENOFIBRATE 54 MG TAB PO SCH (08:30)
[2023-02-12] MEDS: INSULIN ASPART (NovoLOG) 100 UNIT/ML VIAL SQ SCH ×3 (08:30→17:57)
[2023-02-12] MEDS: TAMSULOSIN 0.4 MG CAP.ER.24H PO SCH (08:30)
[2023-02-12] MEDS: NYSTATIN 100,000 UNIT/GM POWD 15 GM TOPICAL SCH ×3 (08:31→22:20)
[2023-02-12 09:05] LABS: Basophils % (A) 1 %; Eosinophils # (A) 0.2 k/uL (0-0.7); Eosinophils % (A) 4 %; HCT 38.6 % (39.0-53.0); HGB 12.5 gm/dL (13.0-17.5); Lymphocytes # (A) 1.2 k/uL (1.0-4.8); Lymphocytes % (A) 22 %; MCH 29.2 pg (25.0-35.0); MCHC 32.4 g/dL (31.0-37.0); Monocytes # (A) 0.4 k/uL (0-1.0); Monocytes % (A) 7 %; Neutrophils # (A) 3.4 k/uL (1.3-7.7); Neutrophils % (A) 63 %; Platelet Count 196 k/uL (150-450); RBC 4.29 m/uL (4.30-5.90); RDW 15.1 % (11.5-15.5); WBC 5.5 k/uL (3.8-10.6)
[2023-02-12 09:13] LABS: ALT 15 U/L (4-49); AST 21 U/L (17-59); African American GFR (CKD) >90 (>60 ml/min/1.73 sqM); Albumin 3.6 g/dL (3.5-5.0); Albumin/Globulin Ratio 1.5; Alkaline Phosphatase 66 U/L (38-126); Anion Gap 7 mmol/L; Blood Urea Nitrogen 11 mg/dL (9-20); Calcium 9.3 mg/dL (8.4-10.2); Carbon Dioxide 24 mmol/L (22-30); Chloride 104 mmol/L (98-107); Globulin 2.4 g/dL; Glucose 174 mg/dL (74-99); Non-African American GFR(CKD) >90 (>60 ml/min/1.73 sqM); Sodium 135 mmol/L (137-145); Total Bilirubin 0.5 mg/dL (0.2-1.3)
[2023-02-12 11:13] LABS: Glucose,Whole Blood 125 mg/dL (70-110)
[2023-02-12 16:59] LABS: Glucose,Whole Blood 192 mg/dL (70-110)
[2023-02-12 21:03] LABS: Glucose,Whole Blood 95 mg/dL (70-110)
[2023-02-12] MEDS: INSULIN DETEMIR (LEVEMIR) 100 UNIT/ML SYR SQ SCH (21:54)
[2023-02-12] MEDS: ATORVASTATIN 40 MG TAB PO SCH (21:54)
--- NOTE | 2023-02-12 23:17 | PN ---
PROGRESS NOTE SUBJECTIVE: He is doing better physically. He is having no chest pain, shortness of breath. He is saturating 96% to 97% on room air. OBJECTIVE: VITAL SIGNS: Blood pressure 130s to 160s over 70s to 80s, pulse 60s to 80s, respiratory rate 18 to 20, temp 97.7. CARDIOVASCULAR: S1, S2. LUNGS: Clear. GI: Soft. HEMATOLOGY: Negative Homans. MUSCULOSKELETAL: He is able to move a little bit of his lower legs. Dr. Eaton saw him for BPH. Continue current treatment. Waiting for pathology and lymph node biopsy. He appears to be breathing better. aortic stenosis, which has to be treated with possible surgery down the road if guardian approves it. Prognosis guarded. MMODL / IJN: [id number] /
[2023-02-13] MEDS: BUDESONIDE 0.5 MG/2 ML NEBU INHALATION SCH ×2 (07:37→18:29)
[2023-02-13] MEDS: IPRATROPIUM-ALBUTEROL 3 ML NEB INHALATION SCH ×5 (07:37→18:29)
[2023-02-13 07:45] LABS: Glucose,Whole Blood 71 mg/dL (70-110)
[2023-02-13] MEDS: INSULIN ASPART (NovoLOG) 100 UNIT/ML VIAL SQ SCH ×3 (07:55→18:19)
[2023-02-13] MEDS: buPROPion SR 100 MG TABLET.ER PO SCH (08:13)
[2023-02-13] MEDS: LOSARTAN 25 MG TAB PO SCH (08:13)
[2023-02-13] MEDS: METOPROLOL TARTRATE 50 MG TAB PO SCH ×2 (08:13→20:41)
[2023-02-13] MEDS: TAMSULOSIN 0.4 MG CAP.ER.24H PO SCH (08:13)
[2023-02-13] MEDS: DULoxetine HCL 60 MG CAPSULE.DR PO SCH (08:13)
[2023-02-13] MEDS: MULTIVITAMINS, THERA 1 EACH TAB PO SCH (08:13)
[2023-02-13] MEDS: FENOFIBRATE 54 MG TAB PO SCH (08:13)
[2023-02-13] MEDS: HEPARIN SODIUM,PORCINE/PF 5,000 UNIT/0.5 ML SYRINGE SQ SCH ×2 (08:13→16:41)
[2023-02-13] MEDS: DOCUSATE 100 MG CAP PO SCH ×2 (08:13→20:40)
[2023-02-13] MEDS: amLODIPine 10 MG TAB PO SCH (08:13)
[2023-02-13] MEDS: ASPIRIN 81 MG PO SCH (08:13)
[2023-02-13] MEDS: POTASSIUM CHLORIDE ER 20 MEQ TAB.ER PO SCH (08:13)
[2023-02-13] MEDS: NYSTATIN 100,000 UNIT/GM POWD 15 GM TOPICAL SCH ×3 (08:15→20:41)
[2023-02-13] MEDS: SODIUM CHLORIDE 0.9% 1,000 ML IV SCH ×2 (08:15→20:41)
[2023-02-13] MEDS: ALPRAZolam 0.25 MG TAB PO PRN ×2 (11:22→20:40)
[2023-02-13 12:00] LABS: Glucose,Whole Blood 143 mg/dL (70-110)
--- NOTE | 2023-02-13 14:08 | P.PN ---
Subjective Progress Note Date: 02/13/23 CHIEF COMPLAINT: Lymphadenopathy HISTORY OF PRESENT ILLNESS: Patient is status post excision of left cervical lymph node on 02/08/23. Patient reports no pain. He has had increased swelling and firmness noted at the biopsy site. Afebrile. Hemoglobin 12.5 yesterday PHYSICAL EXAM: VITAL SIGNS: Reviewed. GENERAL: Well-developed in no acute distress. HEENT: Left neck incision is clean dry and intact. mild tenderness with palpation. Area is swollen and firm. Minimal bruising noted. ABDOMEN: Soft. Nondistended. Nontender. NEUROLOGIC: Alert and oriented. Cranial nerves II through XII grossly intact. ASSESSMENT: 1. Lymphadenopathy is status post excision of left cervical lymph node PLAN: -Follow up on pathology results -Continue supportive care Physician Elementary School Director note has been reviewed by physician. Signing provider agrees with the documented findings, assessment, and plan of care. Objective - Vital Signs Vital signs: Vital Signs Temp 97.5 F L 02/13/23 11:14 Pulse 83 02/13/23 11:14 Resp 16 02/13/23 11:14 BP 164/80 02/13/23 11:14 Pulse Ox 96 02/13/23 11:14 FiO2 21 01/27/23 08:14 Intake & Output 02/12/23 02/13/23 02/13/23 18:59 06:59 18:59 Intake Total 240 Output Total 1500 1050 850 Balance -1500 -810 -850 Intake: Oral 240 Output: Urine 1500 1050 850 Other: Voiding Method Indwelling Catheter Indwelling Catheter Indwelling Catheter # Bowel Movements 1 1 - Labs CBC & Chem 7: 02/12/23 08:20 02/12/23 08:20 Labs: Abnormal Lab Results - Last 24 Hours (Table) 02/12/23 02/13/23 Range/Units 16:58 11:59 POC Glucose (mg/dL) 192 H 143 H (70-110) mg/dL
[2023-02-13 17:10] LABS: Glucose,Whole Blood 154 mg/dL (70-110)
[2023-02-13] MEDS: HYDROcodone/APAP 5-325MG 1 EACH TAB PO PRN (20:40)
[2023-02-13] MEDS: INSULIN DETEMIR (LEVEMIR) 100 UNIT/ML SYR SQ SCH (20:40)
[2023-02-13] MEDS: ATORVASTATIN 40 MG TAB PO SCH (20:41)
[2023-02-14] MEDS: HEPARIN SODIUM,PORCINE/PF 5,000 UNIT/0.5 ML SYRINGE SQ SCH ×4 (00:02→23:22)
[2023-02-14 07:45] LABS: Glucose,Whole Blood 134 mg/dL (70-110)
[2023-02-14] MEDS: BUDESONIDE 0.5 MG/2 ML NEBU INHALATION SCH ×2 (07:56→20:07)
[2023-02-14] MEDS: IPRATROPIUM-ALBUTEROL 3 ML NEB INHALATION SCH ×4 (07:57→20:07)
[2023-02-14] MEDS: INSULIN ASPART (NovoLOG) 100 UNIT/ML VIAL SQ SCH ×3 (08:11→18:01)
[2023-02-14] MEDS: LOSARTAN 25 MG TAB PO SCH (08:44)
[2023-02-14] MEDS: amLODIPine 10 MG TAB PO SCH (08:44)
[2023-02-14] MEDS: POTASSIUM CHLORIDE ER 20 MEQ TAB.ER PO SCH (08:44)
[2023-02-14] MEDS: MULTIVITAMINS, THERA 1 EACH TAB PO SCH (08:44)
[2023-02-14] MEDS: TAMSULOSIN 0.4 MG CAP.ER.24H PO SCH (08:44)
[2023-02-14] MEDS: ASPIRIN 81 MG PO SCH (08:44)
[2023-02-14] MEDS: METOPROLOL TARTRATE 50 MG TAB PO SCH ×2 (08:44→20:58)
[2023-02-14] MEDS: DOCUSATE 100 MG CAP PO SCH ×2 (08:44→20:58)
[2023-02-14] MEDS: DULoxetine HCL 60 MG CAPSULE.DR PO SCH (08:44)
[2023-02-14] MEDS: FENOFIBRATE 54 MG TAB PO SCH (08:45)
[2023-02-14] MEDS: buPROPion SR 100 MG TABLET.ER PO SCH (08:45)
[2023-02-14] MEDS: NYSTATIN 100,000 UNIT/GM POWD 15 GM TOPICAL SCH ×3 (08:46→20:59)
[2023-02-14] MEDS: ALPRAZolam 0.25 MG TAB PO PRN ×2 (08:47→20:58)
[2023-02-14 11:38] LABS: Glucose,Whole Blood 141 mg/dL (70-110)
[2023-02-14 12:37] LABS: Glucose,Whole Blood 172 mg/dL (70-110)
[2023-02-14] MEDS: HYDROcodone/APAP 5-325MG 1 EACH TAB PO PRN ×2 (15:24→21:41)
[2023-02-14] MEDS: SODIUM CHLORIDE 0.9% 1,000 ML IV SCH (15:25)
--- NOTE | 2023-02-14 15:47 | P.PN ---
Subjective Progress Note Date: 02/14/23 CHIEF COMPLAINT: Lymphadenopathy HISTORY OF PRESENT ILLNESS: Patient is status post excision of left cervical lymph node on 02/08/23. Patient reports no pain. The area of the biopsy results is still swollen and is slightly softer. Afebrile. No new labs Patient seen and examined with Dr. son PHYSICAL EXAM: VITAL SIGNS: Reviewed. GENERAL: Well-developed in no acute distress. HEENT: Left neck incision is clean dry and intact. mild tenderness with palpation. Area is swollen and firm. The area of firmness is slightly softer than yesterday. Bruising noted at the site of incision ABDOMEN: Soft. Nondistended. Nontender. NEUROLOGIC: Alert and oriented. Cranial nerves II through XII grossly intact. ASSESSMENT: 1. Lymphadenopathy is status post excision of left cervical lymph node 2. Lymphocele. Patient has likely an increase in lymphatic fluid at the biopsy site. PLAN: -Continue to observe the lymphocele -No surgical intervention planned -Follow up on pathology results -Continue supportive care Physician Director Industrial Nursing note has been reviewed by physician. Signing provider agrees with the documented findings, assessment, and plan of care. Objective - Vital Signs Vital signs: Vital Signs Temp 97.5 F L 02/14/23 11:31 Pulse 74 02/14/23 11:31 Resp 16 02/14/23 11:31 BP 149/78 02/14/23 11:31 Pulse Ox 97 02/14/23 11:31 FiO2 21 01/27/23 08:14 Intake & Output 02/13/23 02/14/23 02/14/23 18:59 06:59 18:59 Intake Total 120 Output Total 1450 1200 Balance -1450 -1080 Intake: Oral 120 Output: Urine 1450 1200 Other: Voiding Method Indwelling Catheter Indwelling Catheter Indwelling Catheter # Bowel Movements 1 1 - Labs CBC & Chem 7: 02/12/23 08:20 02/12/23 08:20 Labs: Abnormal Lab Results - Last 24 Hours (Table) 02/13/23 02/13/23 02/14/23 Range/Units 17:08 20:05 07:44 POC Glucose (mg/dL) 154 H 172 H 134 H (70-110) mg/dL 02/14/23 Range/Units 11:33 POC Glucose (mg/dL) 141 H (70-110) mg/dL
[2023-02-14 17:07] LABS: Glucose,Whole Blood 212 mg/dL (70-110)
[2023-02-14 20:33] LABS: Glucose,Whole Blood 176 mg/dL (70-110)
[2023-02-14] MEDS: ATORVASTATIN 40 MG TAB PO SCH (20:58)
[2023-02-14] MEDS: INSULIN DETEMIR (LEVEMIR) 100 UNIT/ML SYR SQ SCH (20:59)
--- NOTE | 2023-02-15 02:33 | PN ---
PROGRESS NOTE SUBJECTIVE: This is a 67-year-old white male, status post lymph node removal, no pain . OBJECTIVE: CARDIOVASCULAR: S1, S2. LUNGS: Clear. GI: Soft. HEMATOLOGY: Negative for Homans. PSYCH: Fair mood and affect. NEUROLOGIC: Alert and oriented x3. Lymphadenopathy, status post excision of cervical node. condition stable. Prognosis guarded. Ambulate as tolerated with for pathology. Wait for physical therapy. He is moving his arm a little bit more. Prognosis guarded. Follow up in the next 24 to 48 hours. MMODL / IJN: [id number] /
[2023-02-15] MEDS: SODIUM CHLORIDE 0.9% 1,000 ML IV SCH ×2 (04:18→17:48)
[2023-02-15 07:01] LABS: Glucose,Whole Blood 75 mg/dL (70-110)
[2023-02-15] MEDS: INSULIN ASPART (NovoLOG) 100 UNIT/ML VIAL SQ SCH ×3 (07:26→17:48)
[2023-02-15] MEDS: IPRATROPIUM-ALBUTEROL 3 ML NEB INHALATION SCH ×4 (08:10→19:44)
[2023-02-15] MEDS: BUDESONIDE 0.5 MG/2 ML NEBU INHALATION SCH ×2 (08:10→19:44)
[2023-02-15] MEDS: HEPARIN SODIUM,PORCINE/PF 5,000 UNIT/0.5 ML SYRINGE SQ SCH ×3 (10:14→23:36)
[2023-02-15] MEDS: DULoxetine HCL 60 MG CAPSULE.DR PO SCH (10:15)
[2023-02-15] MEDS: DOCUSATE 100 MG CAP PO SCH ×2 (10:15→20:22)
[2023-02-15] MEDS: LOSARTAN 25 MG TAB PO SCH (10:15)
[2023-02-15] MEDS: METOPROLOL TARTRATE 50 MG TAB PO SCH ×2 (10:15→20:22)
[2023-02-15] MEDS: MULTIVITAMINS, THERA 1 EACH TAB PO SCH (10:15)
[2023-02-15] MEDS: ASPIRIN 81 MG PO SCH (10:15)
[2023-02-15] MEDS: FENOFIBRATE 54 MG TAB PO SCH (10:15)
[2023-02-15] MEDS: amLODIPine 10 MG TAB PO SCH (10:15)
[2023-02-15] MEDS: buPROPion SR 100 MG TABLET.ER PO SCH (10:15)
[2023-02-15] MEDS: TAMSULOSIN 0.4 MG CAP.ER.24H PO SCH (10:16)
[2023-02-15] MEDS: NYSTATIN 100,000 UNIT/GM POWD 15 GM TOPICAL SCH ×3 (10:16→20:22)
[2023-02-15] MEDS: POTASSIUM CHLORIDE ER 20 MEQ TAB.ER PO SCH (10:16)
[2023-02-15 10:27] LABS: Basophils % (A) 0 %; Eosinophils # (A) 0.2 k/uL (0-0.7); Eosinophils % (A) 2 %; HCT 36.7 % (39.0-53.0); HGB 12.2 gm/dL (13.0-17.5); Lymphocytes # (A) 1.2 k/uL (1.0-4.8); Lymphocytes % (A) 15 %; MCH 29.7 pg (25.0-35.0); MCHC 33.2 g/dL (31.0-37.0); MCV 89.5 fL (80.0-100.0); Mean Platelet Volume 7.6; Monocytes # (A) 0.5 k/uL (0-1.0); Monocytes % (A) 6 %; Neutrophils % (A) 74 %; Platelet Count 186 k/uL (150-450); RDW 15.3 % (11.5-15.5); WBC 8.1 k/uL (3.8-10.6)
[2023-02-15 11:08] LABS: Glucose,Whole Blood 130 mg/dL (70-110)
[2023-02-15] MEDS: ALPRAZolam 0.25 MG TAB PO PRN ×2 (11:19→18:42)
--- NOTE | 2023-02-15 12:59 | P.PN ---
Subjective Progress Note Date: 02/15/23 CHIEF COMPLAINT: Lymphadenopathy HISTORY OF PRESENT ILLNESS: Patient is status post excision of left cervical lymph node on 02/08/23. Patient reports no pain. The area of the biopsy results is still swollen with evidence of bruising. Afebrile. WBC 8.1 hgb 12.1 Patient seen and examined with Dr. son PHYSICAL EXAM: VITAL SIGNS: Reviewed. GENERAL: Well-developed in no acute distress. HEENT: Left neck incision is clean dry and intact. the area is swollen but slightly less than yesterday. There is more evidence of bruising along the sutures. ABDOMEN: Soft. Nondistended. Nontender. NEUROLOGIC: Alert and oriented. Cranial nerves II through XII grossly intact. ASSESSMENT: 1. Lymphadenopathy is status post excision of left cervical lymph node 2. Lymphocele. Patient has likely an increase in lymphatic fluid at the biopsy site. PLAN: -Continue to observe the lymphocele -No surgical intervention planned for lymphocele -Follow up on pathology results -Continue supportive care Physician Environmental Health Manager note has been reviewed by physician. Signing provider agrees with the documented findings, assessment, and plan of care. Objective - Vital Signs Vital signs: Vital Signs Temp 97.6 F 02/15/23 07:02 Pulse 78 02/15/23 07:02 Resp 18 02/15/23 07:02 BP 166/66 02/15/23 07:02 Pulse Ox 97 02/15/23 08:10 FiO2 21 01/27/23 08:14 Intake & Output 02/14/23 02/15/23 02/15/23 18:59 06:59 18:59 Intake Total 1100 Output Total 300 900 700 Balance -300 200 -700 Intake: Intake, IV Titration 900 Amount Sodium Chloride 0.9% 1, 900 000 ml @ 75 mls/hr IV . [id number] Rx#:[id number] Oral 200 Output: Urine 300 900 700 Other: Voiding Method Indwelling Catheter Indwelling Catheter Indwelling Catheter # Bowel Movements 1 - Labs CBC & Chem 7: 02/15/23 09:53 02/12/23 08:20 Labs: Abnormal Lab Results - Last 24 Hours (Table) 02/14/23 02/14/23 02/15/23 Range/Units 17:05 20:32 09:53 RBC 4.10 L (4.30-5.90) m/uL Hgb 12.2 L (13.0-17.5) gm/dL Hct 36.7 L (39.0-53.0) % POC Glucose (mg/dL) 212 H 176 H (70-110) mg/dL 02/15/23 Range/Units 11:07 RBC (4.30-5.90) m/uL Hgb (13.0-17.5) gm/dL Hct (39.0-53.0) % POC Glucose (mg/dL) 130 H (70-110) mg/dL
[2023-02-15 16:11] LABS: Albumin 3.8 g/dL (3.8-4.9); Albumin/Globulin Ratio 2.05 (1.60-3.17); Anion Gap 10.4 mmol/L (10.00-18.00); BUN/Creat Ratio 17.22 Ratio (12.00-20.00); Blood Urea Nitrogen 11.9 mg/dL (9.0-27.0); Calcium 9.5 mg/dL (8.7-10.3); Carbon Dioxide 23.3 mmol/L (20.0-27.5); Globulin 1.9 g/dL (1.6-3.3); Non-African American GFR(CKD) 97.5 (60.0-200.0); Potassium 4.2 mmol/L (3.5-5.5); Total Bilirubin 0.6 mg/dL (0.30-1.20); Total Protein 5.7 g/dL (6.2-8.2)
[2023-02-15 17:12] LABS: Glucose,Whole Blood 168 mg/dL (70-110)
[2023-02-15 20:08] LABS: Glucose,Whole Blood 149 mg/dL (70-110)
[2023-02-15] MEDS: ATORVASTATIN 40 MG TAB PO SCH (20:21)
[2023-02-15] MEDS: INSULIN DETEMIR (LEVEMIR) 100 UNIT/ML SYR SQ SCH (20:22)
[2023-02-15] MEDS: HYDROcodone/APAP 5-325MG 1 EACH TAB PO PRN (20:22)
--- NOTE | 2023-02-16 01:10 | PN ---
PROGRESS NOTE SUBJECTIVE: The patient is admitted with prior CVA, generalized altered mental status. He has aortic stenosis. He is up for guardianship coming up. OBJECTIVE: VITAL SIGNS: Respiratory rate 16 to 18, temp 98.1, pulse 60s to 70s, blood pressure is 130s to 160s over 70s to 80s. CARDIOVASCULAR: S1, S2, 2/6 systolic ejection murmur. LUNGS: Clear. HEMATOLOGY: Negative for Homans. MUSCULOSKELETAL: He is moving a little bit more his arms and legs. Surgery recently did a biopsy of his lymph node, which is pending, lymphocele. Follow up on pathology. Continue with PT OT. Wait for discharge planning. Sugars in the mid 100s to 200s. Hemoglobin is 12.2. Prognosis guarded. Wait for possible placement to retirement. His diabetes is under good control. Wait for further pathology. Prognosis guarded. MMODL / IJN: [id number] /
[2023-02-16 07:44] LABS: Glucose,Whole Blood 179 mg/dL (70-110)
[2023-02-16] MEDS: BUDESONIDE 0.5 MG/2 ML NEBU INHALATION SCH ×2 (08:53→20:45)
[2023-02-16] MEDS: IPRATROPIUM-ALBUTEROL 3 ML NEB INHALATION SCH ×4 (08:53→20:45)
[2023-02-16] MEDS: DULoxetine HCL 60 MG CAPSULE.DR PO SCH (09:24)
[2023-02-16] MEDS: TAMSULOSIN 0.4 MG CAP.ER.24H PO SCH (09:24)
[2023-02-16] MEDS: POTASSIUM CHLORIDE ER 20 MEQ TAB.ER PO SCH (09:24)
[2023-02-16] MEDS: amLODIPine 10 MG TAB PO SCH (09:24)
[2023-02-16] MEDS: HEPARIN SODIUM,PORCINE/PF 5,000 UNIT/0.5 ML SYRINGE SQ SCH ×3 (09:24→23:09)
[2023-02-16] MEDS: LOSARTAN 25 MG TAB PO SCH (09:24)
[2023-02-16] MEDS: MULTIVITAMINS, THERA 1 EACH TAB PO SCH (09:24)
[2023-02-16] MEDS: ASPIRIN 81 MG PO SCH (09:24)
[2023-02-16] MEDS: DOCUSATE 100 MG CAP PO SCH ×2 (09:24→21:21)
[2023-02-16] MEDS: METOPROLOL TARTRATE 50 MG TAB PO SCH ×2 (09:24→21:22)
[2023-02-16] MEDS: INSULIN ASPART (NovoLOG) 100 UNIT/ML VIAL SQ SCH ×3 (09:24→17:34)
[2023-02-16] MEDS: NYSTATIN 100,000 UNIT/GM POWD 15 GM TOPICAL SCH ×3 (09:25→21:23)
[2023-02-16] MEDS: FENOFIBRATE 54 MG TAB PO SCH (09:25)
[2023-02-16] MEDS: buPROPion SR 100 MG TABLET.ER PO SCH (09:25)
[2023-02-16] MEDS: SODIUM CHLORIDE 0.9% 1,000 ML IV SCH ×2 (09:25→23:09)
[2023-02-16 11:03] LABS: Basophils # (A) 0.06 X 10*3/uL (0.00-0.10); Basophils % (A) 0.8 %; Eosinophils # (A) 0.25 X 10*3/uL (0.04-0.35); Eosinophils % (A) 3.3 %; Immature Grans, Automated 0.1 %; Lymphocytes # (A) 1.58 X 10*3/uL (0.90-5.00); Lymphocytes % (A) 20.7 %; MCH 28.8 pg (27.0-32.0); MCHC 31.6 g/dL (32.0-37.0); MCV 91.3 fL (80.0-97.0); Mean Platelet Volume 9.1 fL (9.5-12.2); Monocytes # (A) 0.75 X 10*3/uL (0.20-1.00); Monocytes % (A) 9.8 %; NRBC Per 100 WBC 0 /100 WBCS (0.0-0.0); Neutrophils % (A) 65.3 %; Platelet Count 187 X 10*3/uL (140-440); RBC 4.16 X 10*6/uL (4.40-5.60); RDW 15.2 % (11.5-14.5); WBC 7.65 X 10*3/uL (4.50-10.00)
[2023-02-16 11:10] LABS: African American GFR (CKD) 119.7 (60.0-200.0); Albumin/Globulin Ratio 2.11 (1.60-3.17); Anion Gap 9.8 mmol/L (10.00-18.00); BUN/Creat Ratio 15.83 Ratio (12.00-20.00); Blood Urea Nitrogen 9.5 mg/dL (9.0-27.0); Calcium 9.8 mg/dL (8.7-10.3); Carbon Dioxide 23.2 mmol/L (20.0-27.5); Globulin 1.9 g/dL (1.6-3.3); Non-African American GFR(CKD) 103.3 (60.0-200.0); Total Bilirubin 0.6 mg/dL (0.30-1.20); Total Protein 5.9 g/dL (6.2-8.2)
[2023-02-16 12:11] LABS: Glucose,Whole Blood 131 mg/dL (70-110)
[2023-02-16] MEDS: ALPRAZolam 0.25 MG TAB PO PRN ×2 (14:13→21:22)
--- NOTE | 2023-02-16 14:40 | P.PN ---
Subjective Progress Note Date: 02/16/23 CHIEF COMPLAINT: Lymphadenopathy HISTORY OF PRESENT ILLNESS: Patient is status post excision of left cervical lymph node on 02/08/23. Patient reports no pain. The area of the biopsy results is still swollen with evidence of bruising. Afebrile. WBC 7.65 hgb 12.0 Patient seen and examined with Dr. son PHYSICAL EXAM: VITAL SIGNS: Reviewed. GENERAL: Well-developed in no acute distress. HEENT: Left neck incision is clean dry and intact. the area is swollen but slightly less than yesterday. There is more evidence of bruising along the sutures. ABDOMEN: Soft. Nondistended. Nontender. NEUROLOGIC: Alert and oriented. Cranial nerves II through XII grossly intact. ASSESSMENT: 1. Lymphadenopathy is status post excision of left cervical lymph node 2. Lymphocele. Patient has likely an increase in lymphatic fluid at the biopsy site. PLAN: -Continue to observe the lymphocele -No surgical intervention planned for lymphocele -Follow up on pathology results -Continue supportive care -Patient can be discharged from surgical standpoint when medically cleared with outpatient follow up Physician Integration Assistant note has been reviewed by physician. Signing provider agrees with the documented findings, assessment, and plan of care. Objective - Vital Signs Vital signs: Vital Signs Temp 98.5 F 02/16/23 13:10 Pulse 63 02/16/23 13:10 Resp 18 02/16/23 13:10 BP 125/78 02/16/23 13:10 Pulse Ox 99 02/16/23 13:10 FiO2 21 01/27/23 08:14 Intake & Output 02/15/23 02/16/23 02/16/23 18:59 06:59 18:59 Intake Total 0 Output Total 1600 1500 Balance -1600 -1500 Weight 80 kg Intake: Oral 0 Output: Urine 1600 1500 Other: Voiding Method Indwelling Catheter Indwelling Catheter Indwelling Catheter # Bowel Movements 1 - Labs CBC & Chem 7: 02/16/23 06:39 02/16/23 06:39 Labs: Abnormal Lab Results - Last 24 Hours (Table) 02/15/23 02/15/23 02/15/23 Range/Units 09:53 17:10 20:08 RBC (4.40-5.60) X 10*6/uL Hgb (13.0-17.0) g/dL Hct (39.6-50.0) % MCHC (32.0-37.0) g/dL RDW (11.5-14.5) % MPV (9.5-12.2) fL Anion Gap (10.00-18.00) mmol/L Glucose 117 H (70-110) mg/dL POC Glucose (mg/dL) 168 H 149 H (70-110) mg/dL Total Protein 5.7 L (6.2-8.2) g/dL 02/16/23 02/16/23 02/16/23 Range/Units 06:39 06:39 07:42 RBC 4.16 L (4.40-5.60) X 10*6/uL Hgb 12.0 L (13.0-17.0) g/dL Hct 38.0 L (39.6-50.0) % MCHC 31.6 L (32.0-37.0) g/dL RDW 15.2 H (11.5-14.5) % MPV 9.1 L (9.5-12.2) fL Anion Gap 9.80 L (10.00-18.00) mmol/L Glucose 160 H (70-110) mg/dL POC Glucose (mg/dL) 179 H (70-110) mg/dL Total Protein 5.9 L (6.2-8.2) g/dL 02/16/23 Range/Units 12:09 RBC (4.40-5.60) X 10*6/uL Hgb (13.0-17.0) g/dL Hct (39.6-50.0) % MCHC (32.0-37.0) g/dL RDW (11.5-14.5) % MPV (9.5-12.2) fL Anion Gap (10.00-18.00) mmol/L Glucose (70-110) mg/dL POC Glucose (mg/dL) 131 H (70-110) mg/dL Total Protein (6.2-8.2) g/dL
[2023-02-16 16:58] LABS: Glucose,Whole Blood 216 mg/dL (70-110)
[2023-02-16 20:37] LABS: Glucose,Whole Blood 463 mg/dL (70-110)
[2023-02-16] MEDS ORDERED: INSULIN ASPART (NovoLOG) 100 UNIT/ML VIAL SQ SCH (21:00)
[2023-02-16] MEDS: ATORVASTATIN 40 MG TAB PO SCH (21:21)
[2023-02-16] MEDS: INSULIN DETEMIR (LEVEMIR) 100 UNIT/ML SYR SQ SCH (21:22)
[2023-02-16] MEDS: HYDROcodone/APAP 5-325MG 1 EACH TAB PO PRN (21:22)
[2023-02-16 23:41] LABS: Glucose,Whole Blood 45 mg/dL (70-110)
[2023-02-17 00:01] LABS: Glucose,Whole Blood 56 mg/dL (70-110)
[2023-02-17 00:25] LABS: Glucose,Whole Blood 64 mg/dL (70-110)
[2023-02-17 01:04] LABS: Glucose,Whole Blood 71 mg/dL (70-110)
[2023-02-17 02:56] LABS: Glucose,Whole Blood 134 mg/dL (70-110)
--- NOTE | 2023-02-17 02:58 | PN ---
PROGRESS NOTE SUBJECTIVE: This is a 67-year-old white male, waiting for guardianship to find him a place to go for rehab, wants to go to [facility] or [facility]. His sugars have been stable. His blood pressures have been stable. He has been eating fairly stable. He has PT, OT to help move. He is moving his right arm a little bit more than normal. His legs can move a little bit better. We will get PT OT involved. Possibly get him in to rehab center soon. He gives appropriate answers. OBJECTIVE: GENERAL: He is alert and oriented x3. VITAL SIGNS: His blood pressure 120s to 130s over 70s, O2 99 on room air, temp 98.5, pulse 50s to 80s, and respiratory rate 16 to 18. CARDIOVASCULAR: S1, S2. LUNGS: Decreased breath sounds x4. PSYCH: Fair mood and affect. NEUROLOGIC: Alert and oriented x3. Lymph node biopsy, waiting for pathology. Surgery has cleared him for discharge. Possibly discharge him home to the rehab center for PT, OT. Waiting for discharge plan and get him a place to go. MMODL / IJN: [id number] /
[2023-02-17 07:27] LABS: Glucose,Whole Blood 140 mg/dL (70-110)
[2023-02-17] MEDS: INSULIN ASPART (NovoLOG) 100 UNIT/ML VIAL SQ SCH ×3 (07:28→17:52)
[2023-02-17] MEDS: BUDESONIDE 0.5 MG/2 ML NEBU INHALATION SCH ×2 (08:35→20:27)
[2023-02-17] MEDS: IPRATROPIUM-ALBUTEROL 3 ML NEB INHALATION SCH ×4 (08:35→20:27)
[2023-02-17] MEDS: HEPARIN SODIUM,PORCINE/PF 5,000 UNIT/0.5 ML SYRINGE SQ SCH ×3 (09:04→23:28)
[2023-02-17] MEDS: ASPIRIN 81 MG PO SCH (09:05)
[2023-02-17] MEDS: POTASSIUM CHLORIDE ER 20 MEQ TAB.ER PO SCH (09:05)
[2023-02-17] MEDS: amLODIPine 10 MG TAB PO SCH (09:05)
[2023-02-17] MEDS: DULoxetine HCL 60 MG CAPSULE.DR PO SCH (09:05)
[2023-02-17] MEDS: DOCUSATE 100 MG CAP PO SCH ×2 (09:05→21:50)
[2023-02-17] MEDS: FENOFIBRATE 54 MG TAB PO SCH (09:05)
[2023-02-17] MEDS: MULTIVITAMINS, THERA 1 EACH TAB PO SCH (09:05)
[2023-02-17] MEDS: TAMSULOSIN 0.4 MG CAP.ER.24H PO SCH (09:05)
[2023-02-17] MEDS: METOPROLOL TARTRATE 50 MG TAB PO SCH ×2 (09:05→21:50)
[2023-02-17] MEDS: NYSTATIN 100,000 UNIT/GM POWD 15 GM TOPICAL SCH ×3 (09:05→21:51)
[2023-02-17] MEDS: buPROPion SR 100 MG TABLET.ER PO SCH (09:05)
[2023-02-17] MEDS: LOSARTAN 25 MG TAB PO SCH (09:05)
[2023-02-17] MEDS: ALPRAZolam 0.25 MG TAB PO PRN ×2 (09:20→21:50)
[2023-02-17 12:22] LABS: Glucose,Whole Blood 156 mg/dL (70-110)
--- NOTE | 2023-02-17 13:35 | P.PN ---
Subjective Progress Note Date: 02/17/23 CHIEF COMPLAINT: Lymphadenopathy HISTORY OF PRESENT ILLNESS: Patient is status post excision of left cervical lymph node on 02/08/23. Patient reports no pain. Path result Positive for Hodgkin lymphoma. Patient seen and examined with Dr. son PHYSICAL EXAM: VITAL SIGNS: Reviewed. GENERAL: Well-developed in no acute distress. HEENT: Left neck incision is clean dry and intact. the area is swollen but slightly less than yesterday. There is bruising along the sutures. ABDOMEN: Soft. Nondistended. Nontender. NEUROLOGIC: Alert and oriented. Cranial nerves II through XII grossly intact. ASSESSMENT: 1. Lymphadenopathy is status post excision of left cervical lymph node. Pathology result positive for Hodgkin lymphoma 2. Lymphocele. Patient has likely an increase in lymphatic fluid at the biopsy site. PLAN: -Continue to observe the lymphocele -No surgical intervention planned for lymphocele -Patient may require a MediPort for treatment for his Hodgkin lymphoma. Awaiting oncology decision on possible Mediport placement Physician Customs Compliance Manager note has been reviewed by physician. Signing provider agrees with the documented findings, assessment, and plan of care. Objective - Vital Signs Vital signs: Vital Signs Temp 98.5 F 02/17/23 07:29 Pulse 70 02/17/23 07:29 Resp 18 02/17/23 07:29 BP 161/76 02/17/23 07:29 Pulse Ox 99 02/17/23 07:29 FiO2 21 01/27/23 08:14 Intake & Output 02/16/23 02/17/23 02/17/23 18:59 06:59 18:59 Output Total 950 1200 1600 Balance -950 -1200 -1600 Output: Urine 950 1200 1600 Other: Voiding Method Indwelling Catheter Indwelling Catheter Indwelling Catheter # Voids 1 # Bowel Movements 1 1 - Labs CBC & Chem 7: 02/16/23 06:39 02/16/23 06:39 Labs: Abnormal Lab Results - Last 24 Hours (Table) 02/16/23 02/16/23 02/16/23 Range/Units 16:56 20:35 23:38 POC Glucose (mg/dL) 216 H 463 H 45 L (70-110) mg/dL 02/16/23 02/17/23 02/17/23 Range/Units 23:59 00:24 02:53 POC Glucose (mg/dL) 56 L 64 L 134 H (70-110) mg/dL 02/17/23 02/17/23 Range/Units 07:26 12:21 POC Glucose (mg/dL) 140 H 156 H (70-110) mg/dL
--- NOTE | 2023-02-17 16:39 | P.PN ---
Subjective Progress Note Date: 02/17/23 Principal diagnosis: cervical lymphadenopathy At today's visit patient is resting comfortably in bed. Patient denies neck pain and dysphagia. he is eating lunch with no difficulties. Patient denies any episodes of bleeding. discussed pathology results with patient. Left cervical lymph node biopsy revealed atypical lymphoreticular infiltrate consistent with Hodgkin's lymphoma. Objective - Vital Signs Vital signs: Vital Signs Temp 98.1 F 02/17/23 12:33 Pulse 79 02/17/23 16:15 Resp 18 02/17/23 12:33 BP 131/76 02/17/23 12:33 Pulse Ox 99 02/17/23 12:33 FiO2 21 01/27/23 08:14 Intake & Output 02/16/23 02/17/23 02/17/23 18:59 06:59 18:59 Output Total 950 1200 1600 Balance -950 -1200 -1600 Output: Urine 950 1200 1600 Other: Voiding Method Indwelling Catheter Indwelling Catheter Indwelling Catheter # Voids 1 # Bowel Movements 1 1 - Constitutional General appearance: Present: average body habitus, no acute distress - EENT Eyes: Present: anicteric sclerae, EOMI ENT: Present: hearing grossly normal - Neck Details: large left cervical mass - Respiratory Details: breathing is even and unlabored - Cardiovascular Details: skin is warm and dry - Integumentary Integumentary: Absent: cyanotic, rash - Neurologic Neurologic Comment(s): grossly intact - Musculoskeletal Musculoskeletal: Present: strength equal bilaterally - Psychiatric Psychiatric: Present: A&O x's 3, appropriate affect, intact judgment & insight - Labs CBC & Chem 7: 02/16/23 06:39 02/16/23 06:39 Labs: Abnormal Lab Results - Last 24 Hours (Table) 02/16/23 02/16/23 02/16/23 Range/Units 16:56 20:35 23:38 POC Glucose (mg/dL) 216 H 463 H 45 L (70-110) mg/dL 02/16/23 02/17/23 02/17/23 Range/Units 23:59 00:24 02:53 POC Glucose (mg/dL) 56 L 64 L 134 H (70-110) mg/dL 02/17/23 02/17/23 Range/Units 07:26 12:21 POC Glucose (mg/dL) 140 H 156 H (70-110) mg/dL Assessment and Plan (1) Lymphadenopathy, cervical Current Visit: Yes Status: Acute Priority: High Code(s): R59.0 - LOCALIZED ENLARGED LYMPH NODES SNOMED Code(s): 138520312 Plan: Hodgkin Lymphoma: -S/P LN excision. Left cervical lymph node biopsy revealed atypical lymphoreticular infiltrate consistent with Hodgkin's lymphoma. discussed results with patient at today's visit. Discussed the need for further imaging/testing for staging. Will obtain PET scan in the outpatient setting. Discussed with patient that if mass is localized radiation may be option but if metastatic would also need chemotherapy. We will await PET scan results and schedule follow-up in clinic to discuss findings and treatment options. Plan is for patient to go to rehabilitation upon discharge. Typically while in rehabilitation patient will not be allowed to have any testing/treatment so we will wait for discharge from rehabilitation to schedule further workup. Patient was updated on plan of care and is agreeable to proceed. attests: I have performed H&P and developed impression and plan of care for patient, discussed with dictator. I agree with dictated note, documented as a scribe
[2023-02-17] MEDS: SODIUM CHLORIDE 0.9% 1,000 ML IV SCH ×2 (16:40→23:28)
[2023-02-17 17:32] LABS: Glucose,Whole Blood 200 mg/dL (70-110)
[2023-02-17 20:11] LABS: Glucose,Whole Blood 201 mg/dL (70-110)
[2023-02-17] MEDS: INSULIN DETEMIR (LEVEMIR) 100 UNIT/ML SYR SQ SCH (21:50)
[2023-02-17] MEDS: HYDROcodone/APAP 5-325MG 1 EACH TAB PO PRN (21:50)
[2023-02-17] MEDS: ATORVASTATIN 40 MG TAB PO SCH (21:50)
--- NOTE | 2023-02-18 02:12 | PN ---
PROGRESS NOTE SUBJECTIVE: His left neck showed Hodgkin's lymphoma. OBJECTIVE: VITAL SIGNS: Blood pressure 131/74, temp 98.4, pulse 77, respiratory rate 14 to 16. CARDIOVASCULAR: S1, S2. LUNGS: Clear. GI: Soft. HEMATOLOGY: Negative for Homans. PSYCH: Fair mood and affect. MUSCULOSKELETAL: His lower legs do not move very well. ASSESSMENT: Hodgkin's lymphoma, prior stroke, hemiparesis. Prognosis guarded. Continue current treatment. Discharge planning, trying to find him a place to go. PLAN: Wait for hematology oncology, to come up with treatment for his Hodgkin's lymphoma. Wait for the recommendations. Prognosis guarded. MMODL / IJN: [id number] /
[2023-02-18] MEDS: BUDESONIDE 0.5 MG/2 ML NEBU INHALATION SCH ×2 (06:07→20:27)
[2023-02-18] MEDS: IPRATROPIUM-ALBUTEROL 3 ML NEB INHALATION SCH ×4 (06:08→20:27)
[2023-02-18 07:02] LABS: Glucose,Whole Blood 66 mg/dL (70-110)
[2023-02-18 07:23] LABS: Glucose,Whole Blood 91 mg/dL (70-110)
[2023-02-18] MEDS: INSULIN ASPART (NovoLOG) 100 UNIT/ML VIAL SQ SCH ×3 (07:48→17:47)
[2023-02-18] MEDS: TAMSULOSIN 0.4 MG CAP.ER.24H PO SCH (07:49)
[2023-02-18] MEDS: POTASSIUM CHLORIDE ER 20 MEQ TAB.ER PO SCH (07:49)
[2023-02-18] MEDS: DULoxetine HCL 60 MG CAPSULE.DR PO SCH (07:49)
[2023-02-18] MEDS: DOCUSATE 100 MG CAP PO SCH ×2 (07:49→21:16)
[2023-02-18] MEDS: buPROPion SR 100 MG TABLET.ER PO SCH (07:49)
[2023-02-18] MEDS: FENOFIBRATE 54 MG TAB PO SCH (07:49)
[2023-02-18] MEDS: LOSARTAN 25 MG TAB PO SCH (07:49)
[2023-02-18] MEDS: MULTIVITAMINS, THERA 1 EACH TAB PO SCH (07:49)
[2023-02-18] MEDS: amLODIPine 10 MG TAB PO SCH (07:49)
[2023-02-18] MEDS: METOPROLOL TARTRATE 50 MG TAB PO SCH ×2 (07:49→21:16)
[2023-02-18] MEDS: ASPIRIN 81 MG PO SCH (07:49)
[2023-02-18] MEDS: HEPARIN SODIUM,PORCINE/PF 5,000 UNIT/0.5 ML SYRINGE SQ SCH ×3 (07:50→23:54)
[2023-02-18] MEDS: NYSTATIN 100,000 UNIT/GM POWD 15 GM TOPICAL SCH ×3 (07:50→21:17)
[2023-02-18] MEDS: ALPRAZolam 0.25 MG TAB PO PRN ×3 (07:50→21:17)
[2023-02-18 11:12] LABS: Glucose,Whole Blood 167 mg/dL (70-110)
[2023-02-18] MEDS: SODIUM CHLORIDE 0.9% 1,000 ML IV SCH ×2 (11:30→23:55)
--- NOTE | 2023-02-18 11:55 | P.PN ---
Subjective Progress Note Date: 02/18/23 Principal diagnosis: Left neck seroma Patient underwent previous left neck lymph node biopsy. Has mild swelling at the operative site. Pathology shows Hodgkin's disease. Apparently patient having a PET scan performed. Objective - Vital Signs Vital signs: Vital Signs Temp 97.6 F 02/18/23 07:03 Pulse 79 02/18/23 07:03 Resp 16 02/18/23 07:03 BP 154/79 02/18/23 07:03 Pulse Ox 98 02/18/23 07:03 FiO2 21 01/27/23 08:14 Intake & Output 02/17/23 02/18/23 02/18/23 18:59 06:59 18:59 Output Total 2150 1150 500 Balance -2150 -1150 -500 Output: Urine 2150 1150 500 Other: Voiding Method Indwelling Catheter Indwelling Catheter Indwelling Catheter # Voids 1 # Bowel Movements 1 - Exam Left neck with seroma present with some ecchymosis, nontender - Labs CBC & Chem 7: 02/16/23 06:39 02/16/23 06:39 Labs: Abnormal Lab Results - Last 24 Hours (Table) 02/17/23 02/17/23 02/17/23 Range/Units 12:21 17:30 20:10 POC Glucose (mg/dL) 156 H 200 H 201 H (70-110) mg/dL 02/18/23 02/18/23 Range/Units 07:00 11:10 POC Glucose (mg/dL) 66 L 167 H (70-110) mg/dL Assessment and Plan (1) Lymphadenopathy, cervical Narrative/Plan: Patient seems to be stable at this time. Continue observation of the seroma. Dr. Le will reevaluate on Monday if the patient is still inpatient. Current Visit: Yes Status: Acute Priority: High Code(s): R59.0 - LOCALIZED ENLARGED LYMPH NODES SNOMED Code(s): 606053337
--- NOTE | 2023-02-18 12:55 | PN ---
PROGRESS NOTE SUBJECTIVE: This is a 67-year-old white male, continues to do well. He has Hodgkin's lymphoma. He is going to have treatment as an outpatient for this, it is a slow-growing kind per Hematology. Possibly consult Radiation and Oncology for radiation. He continues to do well, otherwise wears his oxygen. He is taking his inhalers. He has previous strokes with generalized weakness. Physical therapy is continuing with him. Continue with blood pressure control, diabetes control. OBJECTIVE: CARDIOVASCULAR: S1, S2. LUNGS: Clear. PSYCH: He is alert and oriented x3. VITAL SIGNS: 98 on room air, temp 97.6, pulse 79, respiratory rate 16 to 18, and blood pressure 154/79 to 117/68. ASSESSMENT: Hodgkin's lymphoma, previous CVA, metabolic encephalopathy, aortic stenosis, hypertension, hypothyroidism continues. Prognosis is guarded. He is going to need long term placement. Outpatient treatment for Hodgkin's lymphoma. We will discuss with family. MMODL / IJN: [id number] /
[2023-02-18 17:07] LABS: Glucose,Whole Blood 215 mg/dL (70-110)
[2023-02-18] MEDS: HYDROcodone/APAP 5-325MG 1 EACH TAB PO PRN (17:47)
[2023-02-18 20:58] LABS: Glucose,Whole Blood 170 mg/dL (70-110)
[2023-02-18] MEDS: INSULIN DETEMIR (LEVEMIR) 100 UNIT/ML SYR SQ SCH (21:14)
[2023-02-18] MEDS: ATORVASTATIN 40 MG TAB PO SCH (21:16)
[2023-02-19 01:38] LABS: Glucose,Whole Blood 126 mg/dL (70-110)
[2023-02-19 06:02] LABS: Basophils % (A) 1 %; Eosinophils # (A) 0.3 k/uL (0-0.7); Eosinophils % (A) 6 %; HCT 38.4 % (39.0-53.0); HGB 12.7 gm/dL (13.0-17.5); Lymphocytes # (A) 1.5 k/uL (1.0-4.8); Lymphocytes % (A) 27 %; MCH 30.1 pg (25.0-35.0); MCHC 32.9 g/dL (31.0-37.0); MCV 91.4 fL (80.0-100.0); Mean Platelet Volume 6.6; Monocytes # (A) 0.4 k/uL (0-1.0); Monocytes % (A) 8 %; Neutrophils # (A) 3.1 k/uL (1.3-7.7); Neutrophils % (A) 56 %; Platelet Count 188 k/uL (150-450); RDW 15.3 % (11.5-15.5); WBC 5.5 k/uL (3.8-10.6)
[2023-02-19 07:06] LABS: Glucose,Whole Blood 150 mg/dL (70-110)
[2023-02-19] MEDS: INSULIN ASPART (NovoLOG) 100 UNIT/ML VIAL SQ SCH ×3 (07:56→17:52)
[2023-02-19] MEDS: ASPIRIN 81 MG PO SCH (08:01)
[2023-02-19] MEDS: TAMSULOSIN 0.4 MG CAP.ER.24H PO SCH (08:01)
[2023-02-19] MEDS: METOPROLOL TARTRATE 50 MG TAB PO SCH ×2 (08:02→20:29)
[2023-02-19] MEDS: DULoxetine HCL 60 MG CAPSULE.DR PO SCH (08:02)
[2023-02-19] MEDS: NYSTATIN 100,000 UNIT/GM POWD 15 GM TOPICAL SCH ×3 (08:02→22:10)
[2023-02-19] MEDS: POTASSIUM CHLORIDE ER 20 MEQ TAB.ER PO SCH (08:02)
[2023-02-19] MEDS: MULTIVITAMINS, THERA 1 EACH TAB PO SCH (08:02)
[2023-02-19] MEDS: FENOFIBRATE 54 MG TAB PO SCH (08:02)
[2023-02-19] MEDS: LOSARTAN 25 MG TAB PO SCH (08:02)
[2023-02-19] MEDS: HEPARIN SODIUM,PORCINE/PF 5,000 UNIT/0.5 ML SYRINGE SQ SCH ×2 (08:02→16:17)
[2023-02-19] MEDS: amLODIPine 10 MG TAB PO SCH (08:02)
[2023-02-19] MEDS: DOCUSATE 100 MG CAP PO SCH ×2 (08:02→20:26)
[2023-02-19] MEDS: buPROPion SR 100 MG TABLET.ER PO SCH (08:02)
[2023-02-19] MEDS: BUDESONIDE 0.5 MG/2 ML NEBU INHALATION SCH ×2 (08:33→20:08)
[2023-02-19] MEDS: IPRATROPIUM-ALBUTEROL 3 ML NEB INHALATION SCH ×4 (08:33→20:08)
[2023-02-19 09:15] LABS: Basophils # (A) 0.05 X 10*3/uL (0.00-0.10); Basophils % (A) 0.8 %; Eosinophils # (A) 0.31 X 10*3/uL (0.04-0.35); Eosinophils % (A) 5.1 %; HCT 37.2 % (39.6-50.0); HGB 11.9 g/dL (13.0-17.0); Immature Grans, Automated 0.2 %; Lymphocytes # (A) 1.75 X 10*3/uL (0.90-5.00); Lymphocytes % (A) 28.8 %; MCH 29.4 pg (27.0-32.0); MCV 91.9 fL (80.0-97.0); Mean Platelet Volume 9.2 fL (9.5-12.2); Monocytes # (A) 0.63 X 10*3/uL (0.20-1.00); Monocytes % (A) 10.4 %; NRBC Per 100 WBC 0 /100 WBCS (0.0-0.0); Neutrophils # (A) 3.32 X 10*3/uL (1.80-7.70); Neutrophils % (A) 54.7 %; Platelet Count 184 X 10*3/uL (140-440); RBC 4.05 X 10*6/uL (4.40-5.60); RDW 15.2 % (11.5-14.5); WBC 6.07 X 10*3/uL (4.50-10.00)
[2023-02-19 10:42] LABS: African American GFR (CKD) 115.6 (60.0-200.0); Albumin 3.8 g/dL (3.8-4.9); Albumin/Globulin Ratio 1.89 (1.60-3.17); Anion Gap 10.1 mmol/L (10.00-18.00); BUN/Creat Ratio 18.84 Ratio (12.00-20.00); Blood Urea Nitrogen 12.3 mg/dL (9.0-27.0); Calcium 9.7 mg/dL (8.7-10.3); Non-African American GFR(CKD) 99.8 (60.0-200.0); Total Bilirubin 0.4 mg/dL (0.30-1.20); Total Protein 5.9 g/dL (6.2-8.2)
[2023-02-19 11:08] LABS: Glucose,Whole Blood 142 mg/dL (70-110)
[2023-02-19] MEDS: ALPRAZolam 0.25 MG TAB PO PRN (16:17)
[2023-02-19] MEDS: SODIUM CHLORIDE 0.9% 1,000 ML IV SCH (16:21)
[2023-02-19 17:21] LABS: Glucose,Whole Blood 240 mg/dL (70-110)
[2023-02-19] MEDS: ATORVASTATIN 40 MG TAB PO SCH (20:26)
[2023-02-19] MEDS: INSULIN DETEMIR (LEVEMIR) 100 UNIT/ML SYR SQ SCH (20:27)
[2023-02-19] MEDS: HYDROcodone/APAP 5-325MG 1 EACH TAB PO PRN (20:28)
[2023-02-19 20:43] LABS: Glucose,Whole Blood 141 mg/dL (70-110)
[2023-02-20] MEDS: HEPARIN SODIUM,PORCINE/PF 5,000 UNIT/0.5 ML SYRINGE SQ SCH ×4 (00:09→23:51)
[2023-02-20] MEDS: SODIUM CHLORIDE 0.9% 1,000 ML IV SCH ×2 (00:09→13:11)
[2023-02-20] MEDS: ALPRAZolam 0.25 MG TAB PO PRN ×3 (03:55→21:06)
[2023-02-20 06:59] LABS: Glucose,Whole Blood 140 mg/dL (70-110)
[2023-02-20] MEDS: INSULIN ASPART (NovoLOG) 100 UNIT/ML VIAL SQ SCH ×3 (07:32→17:35)
[2023-02-20] MEDS: BUDESONIDE 0.5 MG/2 ML NEBU INHALATION SCH ×2 (09:04→19:53)
[2023-02-20] MEDS: IPRATROPIUM-ALBUTEROL 3 ML NEB INHALATION SCH ×4 (09:05→19:53)
[2023-02-20] MEDS: LOSARTAN 25 MG TAB PO SCH (09:19)
[2023-02-20] MEDS: DULoxetine HCL 60 MG CAPSULE.DR PO SCH (09:19)
[2023-02-20] MEDS: FENOFIBRATE 54 MG TAB PO SCH (09:19)
[2023-02-20] MEDS: METOPROLOL TARTRATE 50 MG TAB PO SCH ×2 (09:19→21:06)
[2023-02-20] MEDS: TAMSULOSIN 0.4 MG CAP.ER.24H PO SCH (09:19)
[2023-02-20] MEDS: MULTIVITAMINS, THERA 1 EACH TAB PO SCH (09:19)
[2023-02-20] MEDS: POTASSIUM CHLORIDE ER 20 MEQ TAB.ER PO SCH (09:19)
[2023-02-20] MEDS: ASPIRIN 81 MG PO SCH (09:19)
[2023-02-20] MEDS: amLODIPine 10 MG TAB PO SCH (09:19)
[2023-02-20] MEDS: buPROPion SR 100 MG TABLET.ER PO SCH (09:19)
[2023-02-20] MEDS: DOCUSATE 100 MG CAP PO SCH ×2 (09:19→21:07)
[2023-02-20] MEDS: NYSTATIN 100,000 UNIT/GM POWD 15 GM TOPICAL SCH ×3 (09:19→21:07)
[2023-02-20 11:06] LABS: Glucose,Whole Blood 153 mg/dL (70-110)
--- NOTE | 2023-02-20 12:42 | P.PN ---
Subjective Progress Note Date: 02/20/23 Principal diagnosis: Left parotid mass, cervical lymphadenopathy-Hodgkin's Disease Pt reports no pain, dysphagia, odynophagia, difficulty breathing. He is tolerating oral intake. Denies any pain. Objective - Vital Signs Vital signs: Vital Signs Temp 97.5 F L 02/20/23 07:00 Pulse 87 02/20/23 07:00 Resp 16 02/20/23 07:00 BP 155/79 02/20/23 07:00 Pulse Ox 98 02/20/23 09:05 FiO2 21 01/27/23 08:14 Intake & Output 02/19/23 02/20/23 02/20/23 18:59 06:59 18:59 Intake Total 480 900 Output Total 4371 603 2760 Balance -670 450 -1375 Intake: IV 900 Sodium Chloride 0.9% 1, 900 000 ml @ 75 mls/hr IV . [id number] [facility] Rx#:[id number] Oral 480 Output: Urine 4266 [id number] 8289 Other: Voiding Method Indwelling Catheter Indwelling Catheter Indwelling Catheter # Bowel Movements 1 1 - Constitutional General appearance: Present: average body habitus, cooperative, no acute dis tress - EENT Eyes: Present: anicteric sclerae ENT: Present: hearing grossly normal - Neck Neck: Present: lymphadenopathy - Respiratory Details: resp even and unlabored - Cardiovascular Details: skin warm and dry to touch - Peripheral edema leg Peripheral Edema: bilateral: None - Musculoskeletal Musculoskeletal: Present: right sided weakness - Psychiatric Psychiatric: Present: A&O x's 3, appropriate affect - Labs CBC & Chem 7: 02/19/23 05:18 02/19/23 05:18 Labs: Abnormal Lab Results - Last 24 Hours (Table) 02/19/23 02/19/23 02/20/23 Range/Units 17:20 20:36 06:57 POC Glucose (mg/dL) 240 H 141 H 140 H (70-110) mg/dL 02/20/23 Range/Units 11:05 POC Glucose (mg/dL) 153 H (70-110) mg/dL Assessment and Plan (1) Failure to thrive Current Visit: Yes Status: Acute Priority: High Code(s): MUK3962 - SNOMED Code(s): 94443182 (2) Lymphadenopathy, cervical Current Visit: Yes Status: Acute Priority: High Code(s): R59.0 - LOCALIZED ENLARGED LYMPH NODES SNOMED Code(s): 320392634 Plan: Hodgkin Lymphoma -Lt neck LN excision. Swelling in the area, not warm, painful or daining, incision is well approximated. -Staging PET outpt to determine if radiation alone or chemo/radiation best option for treatment -Medical and Radiation Onc f/u -All scans and treatment will be pending until pt discharged from rehab (if he is sent for the same) Social Work trying to sort out pt complicated social situation and possible get placement Referral to outpt Paper Grader for transportation attests: I have seen and examined patient, performed H&P, developed impression and plan of care. Discussed with dictator. Agree with dictation, documented as a scribe.
--- NOTE | 2023-02-20 13:24 | P.PN ---
Subjective Progress Note Date: 02/20/23 CHIEF COMPLAINT: Lymphadenopathy HISTORY OF PRESENT ILLNESS: Patient is status post excision of left cervical lymph node on 02/08/23. Patient reports no pain. Path result Positive for Hodgkin lymphoma. Followed by oncology service. Patient seen and examined with Dr. son PHYSICAL EXAM: VITAL SIGNS: Reviewed. GENERAL: Well-developed in no acute distress. HEENT: Left neck incision is clean dry and intact. Swelling is decreasing. ABDOMEN: Soft. Nondistended. Nontender. NEUROLOGIC: Alert and oriented. Cranial nerves II through XII grossly intact. ASSESSMENT: 1. Lymphadenopathy is status post excision of left cervical lymph node. Pathology result positive for Hodgkin lymphoma 2. Lymphocele. Patient has likely an increase in lymphatic fluid at the biopsy site. PLAN: -Continue to observe the lymphocele -No surgical intervention planned for lymphocele -No plans for mediport placement at this time Physician Harp Repairer note has been reviewed by physician. Signing provider agrees with the documented findings, assessment, and plan of care. Objective - Vital Signs Vital signs: Vital Signs Temp 97.5 F L 02/20/23 07:00 Pulse 87 02/20/23 07:00 Resp 16 02/20/23 07:00 BP 155/79 02/20/23 07:00 Pulse Ox 98 02/20/23 09:05 FiO2 21 01/27/23 08:14 Intake & Output 02/19/23 02/20/23 02/20/23 18:59 06:59 18:59 Intake Total 480 900 Output Total 0350 812 7372 Balance -670 450 -1375 Intake: IV 900 Sodium Chloride 0.9% 1, 900 000 ml @ 75 mls/hr IV . [id number] [facility] Rx#:[id number] Oral 480 Output: Urine 4077 813 7097 Other: Voiding Method Indwelling Catheter Indwelling Catheter Indwelling Catheter # Bowel Movements 1 1 - Labs CBC & Chem 7: 02/19/23 05:18 02/19/23 05:18 Labs: Abnormal Lab Results - Last 24 Hours (Table) 02/19/23 02/19/23 02/20/23 Range/Units 17:20 20:36 06:57 POC Glucose (mg/dL) 240 H 141 H 140 H (70-110) mg/dL 02/20/23 Range/Units 11:05 POC Glucose (mg/dL) 153 H (70-110) mg/dL
[2023-02-20 17:11] LABS: Glucose,Whole Blood 148 mg/dL (70-110)
[2023-02-20 20:11] LABS: Glucose,Whole Blood 241 mg/dL (70-110)
[2023-02-20] MEDS: HYDROcodone/APAP 5-325MG 1 EACH TAB PO PRN (21:06)
[2023-02-20] MEDS: ATORVASTATIN 40 MG TAB PO SCH (21:07)
[2023-02-20] MEDS: INSULIN DETEMIR (LEVEMIR) 100 UNIT/ML SYR SQ SCH (21:07)
--- NOTE | 2023-02-21 03:02 | PN ---
PROGRESS NOTE SUBJECTIVE: This is a 67-year-old white male, Hodgkin's lymphoma. Discussed chemo and radiation treatment for this is with the patient and his family. He remains in rehab, continued for rehab for prior stroke, metabolic encephalopathy. OBJECTIVE: CARDIOVASCULAR: S1, S2. LUNGS: Clear. GI: Soft. HEMATOLOGY: Negative for Homans. PSYCH: Fair mood and affect. Continue current treatment with failure to thrive, metabolic encephalopathy. Prognosis is guarded. Follow up in the next 24 to 48 hours for treatment for his lymphoma, will wait for discharge plan. MMODL / IJN: [id number] /
[2023-02-21 07:46] LABS: Glucose,Whole Blood 85 mg/dL (70-110)
[2023-02-21] MEDS: IPRATROPIUM-ALBUTEROL 3 ML NEB INHALATION SCH ×4 (08:34→21:01)
[2023-02-21] MEDS: BUDESONIDE 0.5 MG/2 ML NEBU INHALATION SCH ×2 (08:34→21:00)
[2023-02-21] MEDS: FENOFIBRATE 54 MG TAB PO SCH (08:54)
[2023-02-21] MEDS: DULoxetine HCL 60 MG CAPSULE.DR PO SCH (08:54)
[2023-02-21] MEDS: HEPARIN SODIUM,PORCINE/PF 5,000 UNIT/0.5 ML SYRINGE SQ SCH ×3 (08:54→23:30)
[2023-02-21] MEDS: amLODIPine 10 MG TAB PO SCH (08:54)
[2023-02-21] MEDS: POTASSIUM CHLORIDE ER 20 MEQ TAB.ER PO SCH (08:54)
[2023-02-21] MEDS: ASPIRIN 81 MG PO SCH (08:54)
[2023-02-21] MEDS: METOPROLOL TARTRATE 50 MG TAB PO SCH ×2 (08:54→20:38)
[2023-02-21] MEDS: LOSARTAN 25 MG TAB PO SCH (08:54)
[2023-02-21] MEDS: DOCUSATE 100 MG CAP PO SCH ×2 (08:54→20:38)
[2023-02-21] MEDS: MULTIVITAMINS, THERA 1 EACH TAB PO SCH (08:54)
[2023-02-21] MEDS: buPROPion SR 100 MG TABLET.ER PO SCH (08:54)
[2023-02-21] MEDS: TAMSULOSIN 0.4 MG CAP.ER.24H PO SCH (08:54)
[2023-02-21] MEDS: SODIUM CHLORIDE 0.9% 1,000 ML IV SCH ×2 (08:55→17:31)
[2023-02-21] MEDS: INSULIN ASPART (NovoLOG) 100 UNIT/ML VIAL SQ SCH ×3 (08:55→17:31)
[2023-02-21] MEDS: NYSTATIN 100,000 UNIT/GM POWD 15 GM TOPICAL SCH ×3 (08:55→20:39)
[2023-02-21 12:08] LABS: Glucose,Whole Blood 120 mg/dL (70-110)
[2023-02-21] MEDS: ALPRAZolam 0.25 MG TAB PO PRN ×2 (14:31→20:38)
--- NOTE | 2023-02-21 14:43 | P.CONS ---
History of Present Illness - Reason for Consult Consult date: 02/21/23 [facility] Requesting physician: Nima Reynolds - Chief Complaint "I have a lump on my left neck" - History of Present Illness Mr. 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 He is admitted with failure to thrive. He notes that he has had a mass on his left neck for years, but that it has progressively enlarged. He denies B symptoms or alcohol-induced pain. 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 He lives with his girlfriend Constance who is no longer able to care for him on her own. He presented to the with failure to thrive. CT neck with IV contrast on 01/20/2023 demonstrated left cervical adenopathy measuring up to 3.3 cm. Excisional biopsy per Dr. Le on 02/09/2023 demonstrated NLPHL. The patient is doing well today. He is eager for discharge. It appears the plan is for discharge to [facility] in [place]. Review of Systems All systems: negative (left neck mass) Past Medical History Past Medical History: Asthma, Coronary Artery Disease (CAD), Heart Failure, CVA/TIA, Diabetes Mellitus, Hypertension, Myocardial Infarction (MS), Osteoarthritis (OA) Additional Past Medical History / Comment(s): HX OF BACK SURGERY WITH BACK PAIN, DIABETIC NEUROPATHY, HEART MURMUR., KERATOCONUS., STOOL TEST POSITIVE ., ECZEMA Last Myocardial Infarction Date:: 08/2022 History of Any Multi-Drug Resistant Organisms: C-DIFF Year Discovered:: 12/19/22 MDRO Source:: stool Past Surgical History: Back Surgery, Heart Catheterization With Stent Additional Past Surgical History / Comment(s): BACK SURGERY WITH DISC REMOVED AND FUSION., VASECTOMY, LEFT GREAT TOE. peg tube, tracheostomy. Past Anesthesia/Blood Transfusion Reactions: No Reported Reaction Date of Last Stent Placement:: 08/2022 Past Psychological History: Depression Smoking Status: Never smoker Past Alcohol Use History: None Reported Past Drug Use History: None Reported - Past Family History Mother Family Medical History: No Reported History Additional Family Medical History / Comment(s): of old age Father Additional Family Medical History / Comment(s): of old age Medications and Allergies Home Medications Medication Instructions Recorded Confirmed Type Atorvastatin [Lipitor] 40 mg PO HS 08/13/22 01/20/23 History Aspirin 81 mg PO DAILY tab 08/30/22 01/20/23 Rx Clopidogrel [Plavix] 75 mg PO DAILY 10/01/22 01/20/23 History Losartan [Cozaar] 25 mg PO DAILY 10/01/22 01/20/23 History Multivitamins, Thera [Multivitamin 1 tab PO DAILY 12/09/22 01/20/23 History (formulary)] Fenofibrate 54 mg PO DAILY 12/18/22 01/20/23 History DULoxetine HCL [Cymbalta] 60 mg PO DAILY 01/09/23 01/20/23 History Fluticasone Propion/Salmeterol 1 puff INHALATION RT-BID 01/09/23 01/20/23 History [Wixela 500-50 Inhub] Metoprolol Tartrate [Lopressor] 50 mg PO BID 01/09/23 01/20/23 History amLODIPine [Norvasc] 10 mg PO DAILY 01/09/23 01/20/23 History HYDROcodone/APAP 5-325MG [[place] 1 each PO Q6HR PRN #6 tab 01/12/23 01/20/23 Rx 5-325] Budesonide [Pulmicort] 0.5 mg INHALATION RT-BID 30 Days 01/25/23 Rx #60 ml Doxycycline [Vibramycin] 100 mg PO BID 7 Days #14 cap 01/25/23 Rx Ipratropium-Albuterol Nebulize 3 ml INHALATION RT-QID 30 Days 01/25/23 Rx [Duoneb 0.5 mg-3 mg/3 ml Soln] #120 each Nystatin 100,000Unit/gm Cream 1 applic TOPICAL BID 30 Days #30 01/25/23 Rx [Mycostatin Cream] each Potassium Chloride ER [K-Dur 20] 20 meq PO DAILY 30 Days #30 tab 01/25/23 Rx buPROPion SR [Wellbutrin SR] 100 mg PO DAILY 30 Days #30 tab 01/25/23 Rx ALPRAZolam [Xanax] 0.25 mg PO TID PRN tab 02/20/23 Rx Docusate [Colace] 100 mg PO BID cap 02/20/23 Rx Insulin Detemir (Levemir) [Levemir] 16 unit SQ HS each 02/20/23 Rx Tamsulosin [Flomax] 0.4 mg PO DAILY cap 02/20/23 Rx Allergies Allergy/AdvReac Type Severity Reaction Status Date / Time Penicillins Allergy Unknown Verified 01/20/23 07:56 Physical Exam Vitals: Vital Signs Temp Pulse Pulse Resp BP BP Pulse Ox 02/21/23 11:41 80 02/21/23 11:28 78 02/21/23 11:23 98.1 F 78 16 145/72 98 02/21/23 08:33 96 02/21/23 07:06 97.7 F 78 16 163/74 97 02/21/23 01:49 98.6 F 73 16 148/77 98 02/20/23 20:05 76 02/20/23 19:53 76 02/20/23 19:26 98 F 79 16 125/71 97 FiO2 02/21/23 11:41 02/21/23 11:28 02/21/23 11:23 02/21/23 08:33 21 02/21/23 07:06 02/21/23 01:49 02/20/23 20:05 02/20/23 19:53 02/20/23 19:26 Intake and Output 02/20/23 02/21/23 02/21/23 22:59 06:59 14:59 Intake Total 900 Output Total 450 650 Balance -450 250 Intake: IV 900 Sodium Chloride 0.9% 1, 900 000 ml @ 75 mls/hr IV . [id number] [facility] Rx#:[id number] Output: Urine 450 650 Other: Voiding Method Indwelling Catheter Indwelling Catheter # Voids 875 # Bowel Movements 1 1 - Constitutional General appearance: average body habitus, no acute distress - Neck left cervical and preauricular adenopathy with incision overlying primary mass Neck: lymphadenopathy - Respiratory Respiratory: negative: prolonged expiration, prolonged inspiration Results CBC & Chem 7: 02/19/23 05:18 02/19/23 05:18 Labs: Abnormal Lab Results - Last 24 Hours (Table) 02/20/23 02/20/23 02/21/23 Range/Units 17:09 20:10 12:06 POC Glucose (mg/dL) 148 H 241 H 120 H (70-110) mg/dL Assessment and Plan Assessment: Mr. 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 Plan: The patient has an apparent stage IA NLPHL. Upon discharge he will require PET/CT for staging. Assuming no upstaging, I would recommend a course of ISRT to 30 Gy in 15 fractions. I explained the excellent prognosis afforded by early-stage NLPHL. I explained the need for CT simulation. Treatments will take place Mondays- Fridays and span 3 weeks. I will discuss expected toxicities at a later date. He will follow-up with me upon discharge to coordinate PET/CT and treatment planning. Brandon Ramirez MD Radiation Oncology
--- NOTE | 2023-02-21 15:29 | P.PN ---
Subjective Progress Note Date: 02/21/23 CHIEF COMPLAINT: Lymphadenopathy HISTORY OF PRESENT ILLNESS: Patient is status post excision of left cervical lymph node on 02/08/23. Patient reports no pain. Path result Positive for Hodgkin lymphoma. Followed by oncology service. Patient evaluated by radiology oncologist service. Patient seen and examined with Dr. son PHYSICAL EXAM: VITAL SIGNS: Reviewed. GENERAL: Well-developed in no acute distress. HEENT: Left neck incision is clean dry and intact. Swelling is decreasing. mild bruising ABDOMEN: Soft. Nondistended. Nontender. NEUROLOGIC: Alert and oriented. Cranial nerves II through XII grossly intact. ASSESSMENT: 1. Lymphadenopathy is status post excision of left cervical lymph node. Pathology result positive for Hodgkin lymphoma 2. Lymphocele. Patient has likely an increase in lymphatic fluid at the biopsy site. PLAN: -Continue to observe the lymphocele -No surgical intervention planned for lymphocele -No plans for mediport placement at this time -Continue treatment management per oncology and radiology oncology service -Keep sutures in place for another few days until swelling improves more Physician Co Founder And President note has been reviewed by physician. Signing provider agrees with the documented findings, assessment, and plan of care. Objective - Vital Signs Vital signs: Vital Signs Temp 98.1 F 02/21/23 11:23 Pulse 80 02/21/23 11:41 Resp 16 02/21/23 11:23 BP 145/72 02/21/23 11:23 Pulse Ox 98 02/21/23 11:23 FiO2 21 02/21/23 08:33 Intake & Output 02/20/23 02/21/23 02/21/23 18:59 06:59 18:59 Intake Total 900 Output Total 1825 650 Balance -1825 250 Intake: IV 900 Sodium Chloride 0.9% 1, 900 000 ml @ 75 mls/hr IV . [id number] [facility] Rx#:[id number] Output: Urine 1825 650 Other: Voiding Method Indwelling Catheter Indwelling Catheter Indwelling Catheter # Voids 875 # Bowel Movements 1 1 - Labs CBC & Chem 7: 02/19/23 05:18 02/19/23 05:18 Labs: Abnormal Lab Results - Last 24 Hours (Table) 02/20/23 02/20/23 02/21/23 Range/Units 17:09 20:10 12:06 POC Glucose (mg/dL) 148 H 241 H 120 H (70-110) mg/dL
[2023-02-21 17:17] LABS: Glucose,Whole Blood 165 mg/dL (70-110)
[2023-02-21 20:13] LABS: Glucose,Whole Blood 156 mg/dL (70-110)
[2023-02-21] MEDS: ATORVASTATIN 40 MG TAB PO SCH (20:38)
[2023-02-21] MEDS: INSULIN DETEMIR (LEVEMIR) 100 UNIT/ML SYR SQ SCH (20:39)
--- NOTE | 2023-02-22 02:38 | PN ---
PROGRESS NOTE SUBJECTIVE: A 67-year-old white male, who continues to do better. He is waiting for placement. Continues on current treatment. OBJECTIVE: CARDIOVASCULAR: S1, S2. LUNGS: Clear. GI: Soft. HEMATOLOGY: Negative for Homans. PSYCH: Fair mood and affect. ASSESSMENT: Hodgkin's lymphoma, prior CVA, aortic stenosis, hypertension. Prognosis guarded. Continue current treatments. Follow up in the next 24 to 48 hours. Hopefully discharge soon depending on discharge planning. Continue Radiation Oncology and Oncology recommendations. MMODL / IJN: [id number] /
[2023-02-22 07:01] LABS: Glucose,Whole Blood 180 mg/dL (70-110)
[2023-02-22] MEDS: INSULIN ASPART (NovoLOG) 100 UNIT/ML VIAL SQ SCH ×3 (07:30→17:03)
[2023-02-22] MEDS: IPRATROPIUM-ALBUTEROL 3 ML NEB INHALATION SCH ×4 (08:43→20:16)
[2023-02-22] MEDS: BUDESONIDE 0.5 MG/2 ML NEBU INHALATION SCH ×2 (08:43→20:16)
[2023-02-22] MEDS: ASPIRIN 81 MG PO SCH (09:30)
[2023-02-22] MEDS: TAMSULOSIN 0.4 MG CAP.ER.24H PO SCH (09:30)
[2023-02-22] MEDS: LOSARTAN 25 MG TAB PO SCH (09:30)
[2023-02-22] MEDS: MULTIVITAMINS, THERA 1 EACH TAB PO SCH (09:30)
[2023-02-22] MEDS: DOCUSATE 100 MG CAP PO SCH ×2 (09:31→20:36)
[2023-02-22] MEDS: HEPARIN SODIUM,PORCINE/PF 5,000 UNIT/0.5 ML SYRINGE SQ SCH ×3 (09:31→23:22)
[2023-02-22] MEDS: METOPROLOL TARTRATE 50 MG TAB PO SCH ×2 (09:31→20:36)
[2023-02-22] MEDS: DULoxetine HCL 60 MG CAPSULE.DR PO SCH (09:31)
[2023-02-22] MEDS: ALPRAZolam 0.25 MG TAB PO PRN ×3 (09:31→23:22)
[2023-02-22] MEDS: POTASSIUM CHLORIDE ER 20 MEQ TAB.ER PO SCH (09:31)
[2023-02-22] MEDS: amLODIPine 10 MG TAB PO SCH (09:31)
[2023-02-22] MEDS: SODIUM CHLORIDE 0.9% 1,000 ML IV SCH (09:32)
[2023-02-22] MEDS: FENOFIBRATE 54 MG TAB PO SCH (09:33)
[2023-02-22] MEDS: buPROPion SR 100 MG TABLET.ER PO SCH (09:33)
[2023-02-22] MEDS: NYSTATIN 100,000 UNIT/GM POWD 15 GM TOPICAL SCH ×3 (09:38→20:37)
--- NOTE | 2023-02-22 10:55 | P.PN ---
Subjective Progress Note Date: 02/22/23 CHIEF COMPLAINT: Lymphadenopathy HISTORY OF PRESENT ILLNESS: Patient is status post excision of left cervical lymph node on 02/08/23. Patient reports no pain. Path result Positive for Hodgkin lymphoma. Followed by oncology and rad onc service. Recommend PET scan and treatment management outpatient. Patient with social issues. Social work is working on ECF placement. Patient seen and examined with Dr. son PHYSICAL EXAM: VITAL SIGNS: Reviewed. GENERAL: Well-developed in no acute distress. HEENT: Left neck incision is clean dry and intact. Swelling is decreasing. mild bruising ABDOMEN: Soft. Nondistended. Nontender. NEUROLOGIC: Alert and oriented. Cranial nerves II through XII grossly intact. ASSESSMENT: 1. Lymphadenopathy is status post excision of left cervical lymph node. Pathology result positive for Hodgkin lymphoma 2. Lymphocele. Patient has likely an increase in lymphatic fluid at the biopsy site. PLAN: -Continue to observe the lymphocele -No surgical intervention planned for lymphocele -No plans for mediport placement at this time -Continue treatment management per oncology and radiology oncology service -Keep sutures in place for another few days until swelling improves more Physician Security Team Lead note has been reviewed by physician. Signing provider agrees with the documented findings, assessment, and plan of care. Objective - Vital Signs Vital signs: Vital Signs Temp 97.5 F L 02/22/23 07:02 Pulse 83 02/22/23 07:02 Resp 18 02/22/23 07:02 BP 155/81 02/22/23 07:02 Pulse Ox 96 02/22/23 08:43 FiO2 21 02/21/23 08:33 Intake & Output 02/21/23 02/22/23 02/22/23 18:59 06:59 18:59 Intake Total 900 900 10 Output Total 1250 2300 Balance -350 -1400 10 Weight 80 kg Intake: IV 900 900 10 Invasive Line 3 10 Sodium Chloride 0.9% 1, 900 900 000 ml @ 75 mls/hr IV . [id number] [facility] Rx#:[id number] Output: Urine 1250 2300 Other: Voiding Method Indwelling Catheter Indwelling Catheter - Labs CBC & Chem 7: 02/19/23 05:18 02/19/23 05:18 Labs: Abnormal Lab Results - Last 24 Hours (Table) 02/21/23 02/21/23 02/21/23 Range/Units 12:06 17:15 20:12 POC Glucose (mg/dL) 120 H 165 H 156 H (70-110) mg/dL 02/22/23 Range/Units 07:00 POC Glucose (mg/dL) 180 H (70-110) mg/dL
[2023-02-22 11:14] LABS: Glucose,Whole Blood 179 mg/dL (70-110)
[2023-02-22 17:02] LABS: Glucose,Whole Blood 194 mg/dL (70-110)
[2023-02-22 20:27] LABS: Glucose,Whole Blood 149 mg/dL (70-110)
[2023-02-22] MEDS: ATORVASTATIN 40 MG TAB PO SCH (20:36)
[2023-02-22] MEDS: INSULIN DETEMIR (LEVEMIR) 100 UNIT/ML SYR SQ SCH (20:37)
[2023-02-23] MEDS: SODIUM CHLORIDE 0.9% 1,000 ML IV SCH ×3 (04:40→21:36)
[2023-02-23] MEDS: IPRATROPIUM-ALBUTEROL 3 ML NEB INHALATION SCH ×4 (08:26→20:36)
[2023-02-23] MEDS: BUDESONIDE 0.5 MG/2 ML NEBU INHALATION SCH ×2 (08:26→20:36)
[2023-02-23 08:52] LABS: Glucose,Whole Blood 164 mg/dL (70-110)
[2023-02-23] MEDS: amLODIPine 10 MG TAB PO SCH (08:57)
[2023-02-23] MEDS: METOPROLOL TARTRATE 50 MG TAB PO SCH ×2 (08:57→21:08)
[2023-02-23] MEDS: LOSARTAN 25 MG TAB PO SCH (08:57)
[2023-02-23] MEDS: ASPIRIN 81 MG PO SCH (08:57)
[2023-02-23] MEDS: MULTIVITAMINS, THERA 1 EACH TAB PO SCH (08:57)
[2023-02-23] MEDS: TAMSULOSIN 0.4 MG CAP.ER.24H PO SCH (08:57)
[2023-02-23] MEDS: buPROPion SR 100 MG TABLET.ER PO SCH (08:58)
[2023-02-23] MEDS: DOCUSATE 100 MG CAP PO SCH ×2 (08:58→21:08)
[2023-02-23] MEDS: FENOFIBRATE 54 MG TAB PO SCH (08:58)
[2023-02-23] MEDS: HEPARIN SODIUM,PORCINE/PF 5,000 UNIT/0.5 ML SYRINGE SQ SCH ×3 (08:58→22:24)
[2023-02-23] MEDS: DULoxetine HCL 60 MG CAPSULE.DR PO SCH (08:58)
[2023-02-23] MEDS: POTASSIUM CHLORIDE ER 20 MEQ TAB.ER PO SCH (08:58)
[2023-02-23] MEDS: INSULIN ASPART (NovoLOG) 100 UNIT/ML VIAL SQ SCH ×3 (09:01→18:16)
[2023-02-23] MEDS: ALPRAZolam 0.25 MG TAB PO PRN ×2 (09:01→16:01)
[2023-02-23] MEDS: NYSTATIN 100,000 UNIT/GM POWD 15 GM TOPICAL SCH ×3 (09:03→21:12)
[2023-02-23 11:11] LABS: Glucose,Whole Blood 155 mg/dL (70-110)
[2023-02-23 11:11] LABS: Glucose,Whole Blood 91 mg/dL (70-110)
--- NOTE | 2023-02-23 13:28 | P.PN ---
Subjective Progress Note Date: 02/23/23 CHIEF COMPLAINT: Lymphadenopathy HISTORY OF PRESENT ILLNESS: Patient is status post excision of left cervical lymph node on 02/08/23. Patient reports no pain. Path result Positive for Hodgkin lymphoma. Followed by oncology and rad onc service. Recommend PET scan and treatment management outpatient. Patient with social issues. Social work is working on ECF placement. Patient seen and examined with Dr. son PHYSICAL EXAM: VITAL SIGNS: Reviewed. GENERAL: Well-developed in no acute distress. HEENT: Left neck incision is clean dry and intact. Swelling is decreasing. mild bruising ABDOMEN: Soft. Nondistended. Nontender. NEUROLOGIC: Alert and oriented. Cranial nerves II through XII grossly intact. ASSESSMENT: 1. Lymphadenopathy is status post excision of left cervical lymph node. Pathology result positive for Hodgkin lymphoma 2. Lymphocele. Patient has likely an increase in lymphatic fluid at the biopsy site. PLAN: -No surgical intervention planned for lymphocele -No plans for mediport placement at this time -Continue treatment management per oncology and radiology oncology service -Keep sutures in place for now -Surgical service will sign off. Please call with any questions or concerns. Physician Media Operator note has been reviewed by physician. Signing provider agrees with the documented findings, assessment, and plan of care. Objective - Vital Signs Vital signs: Vital Signs Temp 97.4 F L 02/23/23 07:40 Pulse 90 02/23/23 07:40 Resp 17 02/23/23 07:40 BP 149/78 02/23/23 07:40 Pulse Ox 99 02/23/23 07:40 FiO2 21 02/21/23 08:33 Intake & Output 02/22/23 02/23/23 02/23/23 18:59 06:59 18:59 Intake Total 910 900 Output Total 1400 500 Balance -490 400 Intake: IV 910 900 Invasive Line 3 10 Sodium Chloride 0.9% 1, 900 900 000 ml @ 75 mls/hr IV . [id number] [facility] Rx#:[id number] Output: Urine 1400 500 Other: Voiding Method Indwelling Catheter Indwelling Catheter Indwelling Catheter - Labs CBC & Chem 7: 02/19/23 05:18 02/19/23 05:18 Labs: Abnormal Lab Results - Last 24 Hours (Table) 02/22/23 02/22/23 02/23/23 Range/Units 17:00 20:25 07:41 POC Glucose (mg/dL) 194 H 149 H 155 H (70-110) mg/dL 02/23/23 Range/Units 08:49 POC Glucose (mg/dL) 164 H (70-110) mg/dL
[2023-02-23 16:42] LABS: Glucose,Whole Blood 223 mg/dL (70-110)
[2023-02-23 20:31] LABS: Glucose,Whole Blood 147 mg/dL (70-110)
[2023-02-23] MEDS: INSULIN DETEMIR (LEVEMIR) 100 UNIT/ML SYR SQ SCH (21:07)
[2023-02-23] MEDS: ATORVASTATIN 40 MG TAB PO SCH (21:08)
[2023-02-23] MEDS: HYDROcodone/APAP 5-325MG 1 EACH TAB PO PRN (21:28)
--- NOTE | 2023-02-23 22:59 | PN ---
PROGRESS NOTE SUBJECTIVE: This is a 67-year-old white male with Hodgkin's lymphoma with Radiation Oncology and Oncology to treat him, trying to find him a place to live. OBJECTIVE: VITAL SIGNS: His temperature 97.5, pulse 70, respirations 16 to 18, blood pressure 115/69. CARDIOVASCULAR: S1, S2. LUNGS: Transmitted upper airway sounds. He wears 3 L oxygen at night. GI: Soft. His bed is elevated. His sugars are in mid 100. He has insulin-dependent diabetes mellitus, prior stroke, prior CVA. Prognosis is guarded, follow up, get him in to a long-term somewhere. Waiting for surgical recommendations for Hodgkin's lymphoma. assistant manager airside operations is looking for place for him to go. MMODL / IJN: [id number] /
[2023-02-24] MEDS: ALPRAZolam 0.25 MG TAB PO PRN ×2 (01:42→20:22)
[2023-02-24 07:58] LABS: Glucose,Whole Blood 148 mg/dL (70-110)
[2023-02-24] MEDS: BUDESONIDE 0.5 MG/2 ML NEBU INHALATION SCH ×2 (08:04→20:31)
[2023-02-24] MEDS: IPRATROPIUM-ALBUTEROL 3 ML NEB INHALATION SCH ×4 (08:04→20:31)
[2023-02-24] MEDS: INSULIN ASPART (NovoLOG) 100 UNIT/ML VIAL SQ SCH ×3 (08:51→17:18)
[2023-02-24] MEDS: ASPIRIN 81 MG PO SCH (09:21)
[2023-02-24] MEDS: MULTIVITAMINS, THERA 1 EACH TAB PO SCH (09:21)
[2023-02-24] MEDS: DULoxetine HCL 60 MG CAPSULE.DR PO SCH (09:21)
[2023-02-24] MEDS: FENOFIBRATE 54 MG TAB PO SCH (09:21)
[2023-02-24] MEDS: buPROPion SR 100 MG TABLET.ER PO SCH (09:21)
[2023-02-24] MEDS: DOCUSATE 100 MG CAP PO SCH ×2 (09:21→20:22)
[2023-02-24] MEDS: METOPROLOL TARTRATE 50 MG TAB PO SCH ×2 (09:21→20:22)
[2023-02-24] MEDS: amLODIPine 10 MG TAB PO SCH (09:21)
[2023-02-24] MEDS: POTASSIUM CHLORIDE ER 20 MEQ TAB.ER PO SCH (09:21)
[2023-02-24] MEDS: LOSARTAN 25 MG TAB PO SCH (09:22)
[2023-02-24] MEDS: TAMSULOSIN 0.4 MG CAP.ER.24H PO SCH (09:22)
[2023-02-24] MEDS: NYSTATIN 100,000 UNIT/GM POWD 15 GM TOPICAL SCH ×3 (09:22→20:55)
[2023-02-24] MEDS: HEPARIN SODIUM,PORCINE/PF 5,000 UNIT/0.5 ML SYRINGE SQ SCH ×3 (09:22→22:43)
[2023-02-24 10:49] LABS: Basophils # (A) 0.04 X 10*3/uL (0.00-0.10); Basophils % (A) 0.8 %; Eosinophils # (A) 0.29 X 10*3/uL (0.04-0.35); Eosinophils % (A) 5.6 %; HCT 36.3 % (39.6-50.0); HGB 11.9 g/dL (13.0-17.0); Immature Grans, Automated 0.2 %; Lymphocytes % (A) 30.8 %; MCH 30.1 pg (27.0-32.0); MCHC 32.8 g/dL (32.0-37.0); MCV 91.7 fL (80.0-97.0); Mean Platelet Volume 8.7 fL (9.5-12.2); Monocytes % (A) 11.6 %; NRBC Per 100 WBC 0 /100 WBCS (0.0-0.0); Neutrophils # (A) 2.65 X 10*3/uL (1.80-7.70); Platelet Count 179 X 10*3/uL (140-440); RBC 3.96 X 10*6/uL (4.40-5.60); RDW 15.1 % (11.5-14.5); WBC 5.19 X 10*3/uL (4.50-10.00)
[2023-02-24 11:09] LABS: Glucose,Whole Blood 197 mg/dL (70-110)
[2023-02-24 11:13] LABS: African American GFR (CKD) 106.4 (60.0-200.0); Albumin 3.9 g/dL (3.8-4.9); Albumin/Globulin Ratio 2.05 (1.60-3.17); Anion Gap 9.8 mmol/L (10.00-18.00); BUN/Creat Ratio 17.13 Ratio (12.00-20.00); Blood Urea Nitrogen 13.7 mg/dL (9.0-27.0); Calcium 9.5 mg/dL (8.7-10.3); Carbon Dioxide 24.2 mmol/L (20.0-27.5); Globulin 1.9 g/dL (1.6-3.3); Non-African American GFR(CKD) 91.8 (60.0-200.0); Potassium 4.2 mmol/L (3.5-5.5); Total Bilirubin 0.4 mg/dL (0.30-1.20); Total Protein 5.8 g/dL (6.2-8.2)
--- NOTE | 2023-02-24 12:09 | P.PN ---
Subjective Progress Note Date: 02/24/23 Principal diagnosis: cervical lymphadenopathy At today's visit patient is resting comfortably in bed. Patient denies neck pain and dysphagia. He is tolerating oral intake well. social work is having difficulties finding patient placement due to difficult social dynamics. fire crew worker is working with [employer] system to hopefully find appropriate placement soon. Objective - Vital Signs Vital signs: Vital Signs Temp 97.5 F L 02/24/23 07:10 Pulse 79 02/24/23 07:10 Resp 17 02/24/23 07:10 BP 146/73 02/24/23 07:10 Pulse Ox 95 02/24/23 07:10 FiO2 21 02/21/23 08:33 Intake & Output 02/23/23 02/24/23 02/24/23 18:59 06:59 18:59 Output Total 6568 828 4353 Balance -1300 -600 -1500 Output: Urine 9465 637 2260 Other: Voiding Method Indwelling Catheter Indwelling Catheter Indwelling Catheter - Constitutional General appearance: Present: average body habitus, no acute distress - EENT Eyes: Present: anicteric sclerae, EOMI ENT: Present: hearing grossly normal - Neck Details: large left anterior neck mass - Respiratory Details: breathing is even and unlabored - Cardiovascular Details: skin warm and dry - Integumentary Integumentary: Present: normal - Neurologic Neurologic Comment(s): grossly intact - Musculoskeletal Musculoskeletal: Present: strength equal bilaterally - Psychiatric Psychiatric: Present: A&O x's 3, appropriate affect, intact judgment & insight - Labs CBC & Chem 7: 02/24/23 06:56 02/24/23 06:56 Labs: Abnormal Lab Results - Last 24 Hours (Table) 02/23/23 02/23/23 02/24/23 Range/Units 16:41 20:29 06:56 RBC 3.96 L (4.40-5.60) X 10*6/uL Hgb 11.9 L (13.0-17.0) g/dL Hct 36.3 L (39.6-50.0) % RDW 15.1 H (11.5-14.5) % MPV 8.7 L (9.5-12.2) fL Anion Gap (10.00-18.00) mmol/L Glucose (70-110) mg/dL POC Glucose (mg/dL) 223 H 147 H (70-110) mg/dL Total Protein (6.2-8.2) g/dL 02/24/23 02/24/23 02/24/23 Range/Units 06:56 07:48 11:06 RBC (4.40-5.60) X 10*6/uL Hgb (13.0-17.0) g/dL Hct (39.6-50.0) % RDW (11.5-14.5) % MPV (9.5-12.2) fL Anion Gap 9.80 L (10.00-18.00) mmol/L Glucose 149 H (70-110) mg/dL POC Glucose (mg/dL) 148 H 197 H (70-110) mg/dL Total Protein 5.8 L (6.2-8.2) g/dL Assessment and Plan (1) Lymphadenopathy, cervical Current Visit: Yes Status: Acute Priority: High Code(s): R59.0 - LOCALIZED ENLARGED LYMPH NODES SNOMED Code(s): 252978649 (2) Hodgkin lymphoma Current Visit: Yes Status: Acute Priority: High Code(s): C81.90 - HODGKIN LYMPHOMA, UNSPECIFIED, UNSPECIFIED SITE SNOMED Code(s): 560086142 Plan: Hodgkin Lymphoma: -S/P LN excision. Left cervical lymph node biopsy revealed atypical lymphoreticular infiltrate consistent with Hodgkin's lymphoma. Results have been discussed in detail with patient, with treatment plan and goals. -Discussed the need for further imaging/testing for staging. Will obtain PET scan in the outpatient setting. Discussed with patient that based on PET findings, treatment may consist of radiation vs chemo and radiation. We will arun it PET scan results and schedule follow-up in clinic to discuss findings and treatment options. -Due to complex social dynamics/finances social work is having difficulties finding patient placement. fire crew worker is working with [employer] system to hopefully find appropriate placement soon. Patient updated on plan of care
[2023-02-24] MEDS: SODIUM CHLORIDE 0.9% 1,000 ML IV SCH (12:58)
[2023-02-24 17:15] LABS: Glucose,Whole Blood 149 mg/dL (70-110)
[2023-02-24] MEDS: ATORVASTATIN 40 MG TAB PO SCH (20:22)
[2023-02-24] MEDS: INSULIN DETEMIR (LEVEMIR) 100 UNIT/ML SYR SQ SCH (20:54)
[2023-02-24] MEDS: HYDROcodone/APAP 5-325MG 1 EACH TAB PO PRN (22:42)
[2023-02-25] MEDS: SODIUM CHLORIDE 0.9% 1,000 ML IV SCH ×2 (02:29→04:03)
[2023-02-25 08:08] LABS: Glucose,Whole Blood 101 mg/dL (70-110)
[2023-02-25] MEDS: INSULIN ASPART (NovoLOG) 100 UNIT/ML VIAL SQ SCH ×3 (08:43→17:10)
[2023-02-25] MEDS: TAMSULOSIN 0.4 MG CAP.ER.24H PO SCH (08:54)
[2023-02-25] MEDS: POTASSIUM CHLORIDE ER 20 MEQ TAB.ER PO SCH ×2 (08:54→08:55)
[2023-02-25] MEDS: buPROPion SR 100 MG TABLET.ER PO SCH (08:55)
[2023-02-25] MEDS: ASPIRIN 81 MG PO SCH (08:55)
[2023-02-25] MEDS: FENOFIBRATE 54 MG TAB PO SCH (08:55)
[2023-02-25] MEDS: LOSARTAN 25 MG TAB PO SCH (08:55)
[2023-02-25] MEDS: MULTIVITAMINS, THERA 1 EACH TAB PO SCH (08:55)
[2023-02-25] MEDS: DOCUSATE 100 MG CAP PO SCH ×2 (08:55→21:36)
[2023-02-25] MEDS: METOPROLOL TARTRATE 50 MG TAB PO SCH ×2 (08:55→21:36)
[2023-02-25] MEDS: HEPARIN SODIUM,PORCINE/PF 5,000 UNIT/0.5 ML SYRINGE SQ SCH ×2 (08:55→17:15)
[2023-02-25] MEDS: amLODIPine 10 MG TAB PO SCH (08:55)
[2023-02-25] MEDS: DULoxetine HCL 60 MG CAPSULE.DR PO SCH (08:55)
[2023-02-25] MEDS: BUDESONIDE 0.5 MG/2 ML NEBU INHALATION SCH ×2 (09:27→20:13)
[2023-02-25] MEDS: IPRATROPIUM-ALBUTEROL 3 ML NEB INHALATION SCH ×4 (09:28→20:13)
[2023-02-25] MEDS: NYSTATIN 100,000 UNIT/GM POWD 15 GM TOPICAL SCH (11:40)
[2023-02-25 12:04] LABS: Glucose,Whole Blood 122 mg/dL (70-110)
--- NOTE | 2023-02-25 12:26 | P.PN ---
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 Complains of present, still waiting for placement, hematology oncology and evaluated the patient for left neck lump with a biopsy positive for stage IA NLPHL of the left cervical neck, plans are underway for PET/CT for restaging f ollowed by a course of ISRT to 30 Gy in 15 fractions. She remains afebrile hemodynamic status stable oxygen saturation 98% on room air labs not done but sugar is 122 Objective - Vital Signs Vital signs: Vital Signs Temp 97.6 F 02/25/23 07:18 Pulse 68 02/25/23 09:41 Resp 18 02/25/23 08:30 BP 158/81 02/25/23 07:18 Pulse Ox 98 02/25/23 09:28 FiO2 21 02/21/23 08:33 Intake & Output 02/24/23 02/25/23 02/25/23 18:59 06:59 18:59 Intake Total 900 Output Total 2200 600 Balance -2200 300 Intake: IV 900 Sodium Chloride 0.9% 1, 900 000 ml @ 75 mls/hr IV . [id number] [facility] Rx#:[id number] Output: Urine 2200 600 Other: Voiding Method Indwelling Catheter Indwelling Catheter Indwelling Catheter # Bowel Movements 1 1 - Constitutional General appearance: Present: average body habitus, cooperative - EENT ENT: Present: normal oropharynx Ears: bilateral: normal - Neck Neck: Present: normal ROM Carotids: bilateral: upstroke normal - Respiratory Respiratory: bilateral: CTA - Cardiovascular Rhythm: regular Heart sounds: normal: S1, S2 - Gastrointestinal General gastrointestinal: Present: soft - Neurologic Neurologic: Present: CNII-XII intact - Musculoskeletal Musculoskeletal: Present: generalized weakness, right sided weakness - Psychiatric Psychiatric: Present: A&O x's 3, appropriate affect, intact judgment & insight - Labs CBC & Chem 7: 02/24/23 06:56 02/24/23 06:56 Labs: Abnormal Lab Results - Last 24 Hours (Table) 02/24/23 02/25/23 Range/Units 17:14 12:03 POC Glucose (mg/dL) 149 H 122 H (70-110) mg/dL Assessment and Plan Assessment: Failure to thrive 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
[2023-02-25] MEDS: ALPRAZolam 0.25 MG TAB PO PRN (19:48)
[2023-02-25 20:28] LABS: Glucose,Whole Blood 195 mg/dL (70-110)
[2023-02-25] MEDS: INSULIN DETEMIR (LEVEMIR) 100 UNIT/ML SYR SQ SCH (21:35)
[2023-02-25] MEDS: ATORVASTATIN 40 MG TAB PO SCH (21:36)
[2023-02-25] MEDS: HYDROcodone/APAP 5-325MG 1 EACH TAB PO PRN (22:19)
[2023-02-26] MEDS: HEPARIN SODIUM,PORCINE/PF 5,000 UNIT/0.5 ML SYRINGE SQ SCH ×4 (01:31→22:44)
[2023-02-26] MEDS: ALPRAZolam 0.25 MG TAB PO PRN ×3 (04:40→22:31)
[2023-02-26] MEDS: SODIUM CHLORIDE 0.9% 1,000 ML IV SCH ×2 (05:49→16:50)
[2023-02-26 07:35] LABS: Glucose,Whole Blood 115 mg/dL (70-110)
[2023-02-26] MEDS: IPRATROPIUM-ALBUTEROL 3 ML NEB INHALATION SCH ×4 (08:05→19:35)
[2023-02-26] MEDS: BUDESONIDE 0.5 MG/2 ML NEBU INHALATION SCH ×2 (08:05→19:35)
[2023-02-26] MEDS: INSULIN ASPART (NovoLOG) 100 UNIT/ML VIAL SQ SCH ×3 (08:29→17:10)
[2023-02-26] MEDS: ASPIRIN 81 MG PO SCH (08:37)
[2023-02-26] MEDS: amLODIPine 10 MG TAB PO SCH (08:37)
[2023-02-26] MEDS: LOSARTAN 25 MG TAB PO SCH (08:38)
[2023-02-26] MEDS: DOCUSATE 100 MG CAP PO SCH ×2 (08:38→22:31)
[2023-02-26] MEDS: TAMSULOSIN 0.4 MG CAP.ER.24H PO SCH (08:38)
[2023-02-26] MEDS: MULTIVITAMINS, THERA 1 EACH TAB PO SCH (08:38)
[2023-02-26] MEDS: FENOFIBRATE 54 MG TAB PO SCH (08:38)
[2023-02-26] MEDS: DULoxetine HCL 60 MG CAPSULE.DR PO SCH (08:38)
[2023-02-26] MEDS: METOPROLOL TARTRATE 50 MG TAB PO SCH ×3 (08:38→22:40)
[2023-02-26] MEDS: buPROPion SR 100 MG TABLET.ER PO SCH (08:38)
[2023-02-26] MEDS: POTASSIUM CHLORIDE ER 20 MEQ TAB.ER PO SCH (08:39)
[2023-02-26 11:55] LABS: Glucose,Whole Blood 132 mg/dL (70-110)
[2023-02-26 17:05] LABS: Glucose,Whole Blood 208 mg/dL (70-110)
[2023-02-26 20:05] LABS: Glucose,Whole Blood 106 mg/dL (70-110)
--- NOTE | 2023-02-26 20:50 | P.PN ---
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 right upper extremity more than lower COPD Generalized anxiety disorder Type 2 diabetes mellitus Hypertension hypertensive cardiovascular disease BPH 02/26/2023, patient seen eval reexamined during the rounds, overall no significant change, patient continued to have a free right upper extremity power 2-3 however can lift right lower extremity and use a cavity is speech is intact, swelling in the left lateral neck not much change, discussed with the RN will continue PT OT and instructed to request of reevaluation consultation if it's not happening Feb 25 2023, patient seen and evaluated examined during the rounds awake and alert. Complains of present, still waiting for placement, hematology oncology and evaluated the patient for left neck lump with a biopsy positive for stage IA NLPHL of the left cervical neck, plans are underway for PET/CT for restaging followed by a course of ISRT to 30 Gy in 15 fractions. She remains afebrile hemodynamic status stable oxygen saturation 98% on room air labs not done but sugar is 122 Objective - Vital Signs Vital signs: Vital Signs Temp 97.2 F L 02/26/23 19:29 Pulse 75 02/26/23 19:29 Resp 16 02/26/23 19:29 BP 108/65 02/26/23 19:29 Pulse Ox 98 02/26/23 19:29 FiO2 21 02/21/23 08:33 Intake & Output 02/26/23 02/26/23 02/27/23 06:59 18:59 06:59 Output Total 500 2550 Balance -500 -2550 Output: Urine 500 2550 Other: Voiding Method Indwelling Catheter Indwelling Catheter # Bowel Movements 1 - Exam - Constitutional General appearance: Present: average body habitus, cooperative - EENT ENT: Present: normal oropharynx Ears: bilateral: normal - Neck Neck: Present: normal ROM Carotids: bilateral: upstroke normal, large swelling on the left side of the lateral neck not much changed - Respiratory Respiratory: bilateral: CTA - Cardiovascular Rhythm: regular Heart sounds: normal: S1, S2 - Gastrointestinal General gastrointestinal: Present: soft - Neurologic Neurologic: Present: CNII-XII intact - Musculoskeletal Musculoskeletal: Present: generalized weakness, right sided weakness - Psychiatric Psychiatric: Present: A&O x's 3, appropriate affect, intact judgment & insight - Labs CBC & Chem 7: 02/24/23 06:56 02/24/23 06:56 Labs: Abnormal Lab Results - Last 24 Hours (Table) 02/26/23 02/26/23 02/26/23 Range/Units 07:34 11:54 17:04 POC Glucose (mg/dL) 115 H 132 H 208 H (70-110) mg/dL Assessment and Plan Assessment: Failure to thrive 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
[2023-02-26] MEDS: ATORVASTATIN 40 MG TAB PO SCH (22:31)
[2023-02-26] MEDS: INSULIN DETEMIR (LEVEMIR) 100 UNIT/ML SYR SQ SCH (22:33)
[2023-02-26] MEDS: HYDROcodone/APAP 5-325MG 1 EACH TAB PO PRN (22:37)
[2023-02-27] MEDS: SODIUM CHLORIDE 0.9% 1,000 ML IV SCH ×2 (06:43→17:16)
[2023-02-27 07:23] LABS: Glucose,Whole Blood 173 mg/dL (70-110)
[2023-02-27] MEDS: amLODIPine 10 MG TAB PO SCH (07:46)
[2023-02-27] MEDS: DOCUSATE 100 MG CAP PO SCH ×2 (07:46→21:34)
[2023-02-27] MEDS: DULoxetine HCL 60 MG CAPSULE.DR PO SCH (07:46)
[2023-02-27] MEDS: FENOFIBRATE 54 MG TAB PO SCH (07:46)
[2023-02-27] MEDS: LOSARTAN 25 MG TAB PO SCH (07:46)
[2023-02-27] MEDS: ASPIRIN 81 MG PO SCH (07:46)
[2023-02-27] MEDS: MULTIVITAMINS, THERA 1 EACH TAB PO SCH (07:46)
[2023-02-27] MEDS: TAMSULOSIN 0.4 MG CAP.ER.24H PO SCH (07:46)
[2023-02-27] MEDS: buPROPion SR 100 MG TABLET.ER PO SCH (07:46)
[2023-02-27] MEDS: METOPROLOL TARTRATE 50 MG TAB PO SCH ×2 (07:47→21:34)
[2023-02-27] MEDS: INSULIN ASPART (NovoLOG) 100 UNIT/ML VIAL SQ SCH ×3 (07:47→17:52)
[2023-02-27] MEDS: HEPARIN SODIUM,PORCINE/PF 5,000 UNIT/0.5 ML SYRINGE SQ SCH ×2 (07:47→15:45)
[2023-02-27] MEDS: IPRATROPIUM-ALBUTEROL 3 ML NEB INHALATION SCH ×4 (07:54→20:10)
[2023-02-27] MEDS: BUDESONIDE 0.5 MG/2 ML NEBU INHALATION SCH ×2 (07:54→20:10)
[2023-02-27] MEDS: ALPRAZolam 0.25 MG TAB PO PRN ×2 (09:31→21:34)
[2023-02-27 11:54] LABS: Glucose,Whole Blood 133 mg/dL (70-110)
[2023-02-27 17:15] LABS: Glucose,Whole Blood 180 mg/dL (70-110)
[2023-02-27 20:26] LABS: Glucose,Whole Blood 190 mg/dL (70-110)
[2023-02-27] MEDS: HYDROcodone/APAP 5-325MG 1 EACH TAB PO PRN (21:34)
[2023-02-27] MEDS: INSULIN DETEMIR (LEVEMIR) 100 UNIT/ML SYR SQ SCH (21:34)
[2023-02-27] MEDS: ATORVASTATIN 40 MG TAB PO SCH (21:34)
[2023-02-27 21:41] LABS: Appearance,Urine Turbid (Clear); Bacteria,Urine Occasional /hpf; Bilirubin,Urine Negative (Negative); Blood,Urine Large (Negative); Color,Urine Light Red; Glucose,Urine (UA) Negative (Negative); Ketones,Urine Trace (Negative); Leukocyte Esterase,Urine Large (Negative); Mucus,Urine Rare /hpf; Nitrite,Urine Negative (Negative); PH, Urine 5.5 (5.0-8.0); Protein,Urine 2+ (Negative); RBC,Urine >182 /hpf (0-5); Specific Gravity,Urine 1.021 (1.001-1.035); Urobilinogen,Urine <2.0 mg/dL (<2.0); WBC,Urine >182 /hpf (0-5)
--- NOTE | 2023-02-28 00:59 | PN ---
PROGRESS NOTE SUBJECTIVE: 67-year-old. He is on subcu heparin, Levemir for diabetes, Cozaar and Lopressor for hypertension, Flomax for BPH, Lipitor for dyslipidemia, Norvasc for hypertension, Xanax for anxiety. OBJECTIVE: VITAL SIGNS: Temp 98.1, blood pressures 126 to 156 over 73 to 87, O2 98% to 100% on room air, pulse 70s to 90s. CARDIOVASCULAR: S1, S2. LUNGS: Transmitted upper sounds. HEMATOLOGY: Negative Homans. PSYCH: Fair mood and affect. Sugars are in the 100s to 200s. ASSESSMENT: 1. Prior stroke. 2. Hypoxemic respiratory distress. 3. Aortic stenosis. 4. Hypertension acceleration. 5. Dyslipidemia. 6. Chronic pain syndrome. 7. Diabetes mellitus. PROGNOSIS: Guarded. Please see further orders. Await for PT, OT, rehab placement. Guardianship in progress. MMODL / IJN: [id number] /
[2023-02-28] MEDS: HEPARIN SODIUM,PORCINE/PF 5,000 UNIT/0.5 ML SYRINGE SQ SCH ×4 (01:04→23:19)
[2023-02-28] MEDS: SODIUM CHLORIDE 0.9% 1,000 ML IV SCH ×2 (06:55→18:19)
[2023-02-28 07:45] LABS: Glucose,Whole Blood 126 mg/dL (70-110)
[2023-02-28] MEDS: INSULIN ASPART (NovoLOG) 100 UNIT/ML VIAL SQ SCH ×3 (07:49→17:47)
[2023-02-28] MEDS: IPRATROPIUM-ALBUTEROL 3 ML NEB INHALATION SCH ×4 (08:12→20:20)
[2023-02-28] MEDS: BUDESONIDE 0.5 MG/2 ML NEBU INHALATION SCH ×2 (08:12→20:20)
[2023-02-28 09:14] LABS: Basophils % (A) 1 %; Eosinophils # (A) 0.4 k/uL (0-0.7); Eosinophils % (A) 7 %; HCT 37.3 % (39.0-53.0); HGB 12.6 gm/dL (13.0-17.5); Lymphocytes # (A) 1.4 k/uL (1.0-4.8); Lymphocytes % (A) 23 %; MCH 31.1 pg (25.0-35.0); MCHC 33.7 g/dL (31.0-37.0); MCV 92.1 fL (80.0-100.0); Mean Platelet Volume 6.8; Monocytes # (A) 0.5 k/uL (0-1.0); Monocytes % (A) 8 %; Neutrophils # (A) 3.4 k/uL (1.3-7.7); Neutrophils % (A) 59 %; Platelet Count 239 k/uL (150-450); RBC 4.04 m/uL (4.30-5.90); RDW 15.1 % (11.5-15.5); WBC 5.8 k/uL (3.8-10.6)
[2023-02-28] MEDS: amLODIPine 10 MG TAB PO SCH (09:23)
[2023-02-28] MEDS: DULoxetine HCL 60 MG CAPSULE.DR PO SCH (09:23)
[2023-02-28] MEDS: TAMSULOSIN 0.4 MG CAP.ER.24H PO SCH (09:23)
[2023-02-28] MEDS: POTASSIUM CHLORIDE ER 20 MEQ TAB.ER PO SCH (09:23)
[2023-02-28] MEDS: MULTIVITAMINS, THERA 1 EACH TAB PO SCH (09:23)
[2023-02-28] MEDS: DOCUSATE 100 MG CAP PO SCH ×2 (09:23→21:09)
[2023-02-28] MEDS: METOPROLOL TARTRATE 50 MG TAB PO SCH ×2 (09:23→21:09)
[2023-02-28] MEDS: LOSARTAN 25 MG TAB PO SCH (09:23)
[2023-02-28] MEDS: ASPIRIN 81 MG PO SCH (09:23)
[2023-02-28] MEDS: buPROPion SR 100 MG TABLET.ER PO SCH (09:23)
[2023-02-28] MEDS: FENOFIBRATE 54 MG TAB PO SCH (09:23)
[2023-02-28 09:41] LABS: ALT 19 U/L (4-49); AST 21 U/L (17-59); African American GFR (CKD) >90 (>60 ml/min/1.73 sqM); Albumin 3.7 g/dL (3.5-5.0); Albumin/Globulin Ratio 1.6; Alkaline Phosphatase 65 U/L (38-126); Anion Gap 9 mmol/L; Blood Urea Nitrogen 15 mg/dL (9-20); Calcium 9.2 mg/dL (8.4-10.2); Carbon Dioxide 25 mmol/L (22-30); Chloride 105 mmol/L (98-107); Globulin 2.3 g/dL; Glucose 126 mg/dL (74-99); Non-African American GFR(CKD) >90 (>60 ml/min/1.73 sqM); Potassium 3.9 mmol/L (3.5-5.1); Sodium 139 mmol/L (137-145); Total Bilirubin 0.4 mg/dL (0.2-1.3)
[2023-02-28] MEDS: ALPRAZolam 0.25 MG TAB PO PRN ×2 (10:22→18:18)
[2023-02-28 12:01] LABS: Glucose,Whole Blood 184 mg/dL (70-110)
--- NOTE | 2023-02-28 12:40 | P.PN ---
Subjective Progress Note Date: 02/28/23 Principal diagnosis: CAUTI Patient is a 67-year-old male with a past medical history significant for right hemiplegia secondary to CVA history of this very failure requiring tracheostomy subsequently worsened has been brought in the hospital for generalized weakness and debility and concern for possible cellulitis to the previous trach site patient did have a CT of the soft tissue of the neck did not show any evidence of abscess, patient has been adequately treated for cellulitis of the neck patient is currently in the hospital for 40+ days and is awaiting for placement patient did have a indwelling Dillard catheter and was noticed to have significant cloudiness of urine UA was obtained which was positive for the catheter has been changed any infectious disease was asked for REevaluation On today's evaluation that is 02/28/2023, the patient denies any fever or any chills, the patient is breathing comfortably on room air, the patient denies chest pain or shortness of breath, no cough, the patient denies pain to the neck area, no nausea no vomiting no abdominal pain or diarrhea Objective - Vital Signs Vital signs: Vital Signs Temp 98.0 F 02/28/23 07:45 Pulse 78 02/28/23 07:45 Resp 18 02/28/23 07:45 BP 161/78 02/28/23 07:45 Pulse Ox 94 L 02/28/23 07:45 FiO2 21 02/21/23 08:33 Intake & Output 02/27/23 02/28/23 02/28/23 18:59 06:59 18:59 Intake Total 900 Output Total 3000 530 Balance -3000 370 Intake: Intake, IV Titration 900 Amount Sodium Chloride 0.9% 1, 900 000 ml @ 75 mls/hr IV . [id number] [facility] Rx#:[id number] Output: Urine 3000 530 Other: Voiding Method Indwelling Catheter Indwelling Catheter Indwelling Catheter # Bowel Movements 1 - Exam GENERAL DESCRIPTION: An elderly male lying in bed in no distress HEENT: Previous track side erythema has significantly decreased no drainage RESPIRATORY SYSTEM: Unlabored breathing , decreased breath sounds at bases HEART: S1 S2 regular rate and rhythm , ABDOMEN: Soft , no tenderness EXTREMITIES: No edema feet - Labs CBC & Chem 7: 02/28/23 08:28 02/28/23 08:28 Labs: Abnormal Lab Results - Last 24 Hours (Table) 0502/27/23 02/27/23 Range/Units 09:20 11:52 17:15 RBC (4.30-5.90) m/uL Hgb (13.0-17.5) gm/dL Hct (39.0-53.0) % Creatinine (0.66-1.25) mg/dL Glucose (74-99) mg/dL POC Glucose (mg/dL) 133 H 180 H (70-110) mg/dL Total Protein (6.3-8.2) g/dL Urine Protein 2+ H (Negative) Urine Ketones Trace H (Negative) Urine Blood Large H (Negative) Ur Leukocyte Esterase Large H (Negative) Urine RBC >182 H (0-5) /hpf Urine WBC >182 H (0-5) /hpf Urine WBC Clumps Many H (None) /hpf Urine Bacteria Occasional H (None) /hpf Urine Mucus Rare H (None) /hpf 02/27/23 02/28/23 02/28/23 Range/Units 20:25 07:43 08:28 RBC 4.04 L (4.30-5.90) m/uL Hgb 12.6 L (13.0-17.5) gm/dL Hct 37.3 L (39.0-53.0) % Creatinine (0.66-1.25) mg/dL Glucose (74-99) mg/dL POC Glucose (mg/dL) 190 H 126 H (70-110) mg/dL Total Protein (6.3-8.2) g/dL Urine Protein (Negative) Urine Ketones (Negative) Urine Blood (Negative) Ur Leukocyte Esterase (Negative) Urine RBC (0-5) /hpf Urine WBC (0-5) /hpf Urine WBC Clumps (None) /hpf Urine Bacteria (None) /hpf Urine Mucus (None) /hpf 02/28/23 Range/Units 08:28 RBC (4.30-5.90) m/uL Hgb (13.0-17.5) gm/dL Hct (39.0-53.0) % Creatinine 0.59 L (0.66-1.25) mg/dL Glucose 126 H (74-99) mg/dL POC Glucose (mg/dL) (70-110) mg/dL Total Protein 6.0 L (6.3-8.2) g/dL Urine Protein (Negative) Urine Ketones (Negative) Urine Blood (Negative) Ur Leukocyte Esterase (Negative) Urine RBC (0-5) /hpf Urine WBC (0-5) /hpf Urine WBC Clumps (None) /hpf Urine Bacteria (None) /hpf Urine Mucus (None) /hpf Microbiology - Last 24 Hours (Table) 02/27/23 09:20 Urine Culture - Preliminary Urine,Voided Assessment and Plan (1) UTI (urinary tract infection) due to urinary indwelling catheter Current Visit: Yes Status: Acute Code(s): T83.511A - I/I REACT D/T INDWELLING URETHRAL CATHETER, INIT; N39.0 - URINARY TRACT INFECTION, SITE NOT SPECIFIED SNOMED Code(s): 123732201 Plan: 1patient with a chronic indwelling Dillard catheter that has been inserted for urinary retention and was noticed to have a significantly cloudiness with a UA now showing positive leukocyte esterase and WBC with concern for possible catheter associated UTI versus Dillard colonization, the patient Dillard has already been changed however the urine was obtained from the old catheter RN has been instructed to obtain UA from the new catheter, and if that's sample is still positive we will add Rocephin while waiting for the cultures to finalize Time with Patient: Less than 30
[2023-02-28 17:13] LABS: Glucose,Whole Blood 197 mg/dL (70-110)
[2023-02-28 18:13] LABS: Appearance,Urine Cloudy (Clear); Bacteria,Urine Occasional /hpf; Bilirubin,Urine Negative (Negative); Blood,Urine Moderate (Negative); Color,Urine Yellow; Glucose,Urine (UA) Negative (Negative); Ketones,Urine Negative (Negative); Leukocyte Esterase,Urine Large (Negative); Mucus,Urine Moderate /hpf; Nitrite,Urine Negative (Negative); Protein,Urine Trace (Negative); RBC,Urine 84 /hpf (0-5); Specific Gravity,Urine 1.015 (1.001-1.035); Squamous Epithelial Cell,Urine <1 /hpf (0-4); Urobilinogen,Urine <2.0 mg/dL (<2.0); WBC,Urine 126 /hpf (0-5)
[2023-02-28 21:03] LABS: Glucose,Whole Blood 166 mg/dL (70-110)
[2023-02-28] MEDS: ATORVASTATIN 40 MG TAB PO SCH (21:09)
[2023-02-28] MEDS: INSULIN DETEMIR (LEVEMIR) 100 UNIT/ML SYR SQ SCH (21:09)
[2023-02-28] MEDS: HYDROcodone/APAP 5-325MG 1 EACH TAB PO PRN (21:16)
[2023-03-01 07:39] LABS: Glucose,Whole Blood 81 mg/dL (70-110)
[2023-03-01] MEDS: INSULIN ASPART (NovoLOG) 100 UNIT/ML VIAL SQ SCH ×3 (07:44→17:43)
[2023-03-01] MEDS: BUDESONIDE 0.5 MG/2 ML NEBU INHALATION SCH ×2 (08:08→20:10)
[2023-03-01] MEDS: IPRATROPIUM-ALBUTEROL 3 ML NEB INHALATION SCH ×4 (08:08→20:11)
[2023-03-01] MEDS: TAMSULOSIN 0.4 MG CAP.ER.24H PO SCH (08:10)
[2023-03-01] MEDS: DULoxetine HCL 60 MG CAPSULE.DR PO SCH (08:11)
[2023-03-01] MEDS: METOPROLOL TARTRATE 50 MG TAB PO SCH ×2 (08:11→20:34)
[2023-03-01] MEDS: amLODIPine 10 MG TAB PO SCH (08:11)
[2023-03-01] MEDS: DOCUSATE 100 MG CAP PO SCH ×2 (08:11→20:34)
[2023-03-01] MEDS: buPROPion SR 100 MG TABLET.ER PO SCH (08:11)
[2023-03-01] MEDS: POTASSIUM CHLORIDE ER 20 MEQ TAB.ER PO SCH (08:11)
[2023-03-01] MEDS: HEPARIN SODIUM,PORCINE/PF 5,000 UNIT/0.5 ML SYRINGE SQ SCH ×2 (08:11→17:42)
[2023-03-01] MEDS: FENOFIBRATE 54 MG TAB PO SCH (08:11)
[2023-03-01] MEDS: ASPIRIN 81 MG PO SCH (08:11)
[2023-03-01] MEDS: LOSARTAN 25 MG TAB PO SCH (08:11)
[2023-03-01] MEDS: MULTIVITAMINS, THERA 1 EACH TAB PO SCH (08:11)
[2023-03-01] MEDS: SODIUM CHLORIDE 0.9% 1,000 ML IV SCH ×2 (10:54→21:11)
[2023-03-01] MEDS: ALPRAZolam 0.25 MG TAB PO PRN ×2 (10:54→20:34)
[2023-03-01 11:15] LABS: Glucose,Whole Blood 87 mg/dL (70-110)
--- NOTE | 2023-03-01 14:29 | P.PN ---
Subjective Progress Note Date: 03/01/23 Principal diagnosis: CAUTI Patient is a 67-year-old male with a past medical history significant for right hemiplegia secondary to CVA history of this very failure requiring tracheostomy subsequently worsened has been brought in the hospital for generalized weakness and debility and concern for possible cellulitis to the previous trach site patient did have a CT of the soft tissue of the neck did not show any evidence of abscess, patient has been adequately treated for cellulitis of the neck patient is currently in the hospital for 40+ days and is awaiting for placement patient did have a indwelling Dillard catheter and was noticed to have significant cloudiness of urine UA was obtained which was positive for the catheter has been changed any infectious disease was asked for REevaluation On today's evaluation that is 03/01/2023, the patient remains to be afebrile, the patient is breathing comfortably on room air, the patient denies chest pain or shortness of breath, no cough, the patient denies pain to the neck area, no nausea no vomiting no abdominal pain or diarrhea Objective - Vital Signs Vital signs: Vital Signs Temp 97.8 F 03/01/23 11:11 Pulse 64 03/01/23 11:11 Resp 16 03/01/23 11:11 BP 131/72 03/01/23 11:11 Pulse Ox 96 03/01/23 11:11 FiO2 21 02/21/23 08:33 Intake & Output 02/28/23 03/01/23 03/01/23 18:59 06:59 18:59 Intake Total 900 Output Total 675 625 Balance 225 -625 Weight 80 kg Intake: IV 900 Sodium Chloride 0.9% 1, 900 000 ml @ 75 mls/hr IV . [id number] [facility] Rx#:[id number] Output: Urine 675 625 Other: Voiding Method Indwelling Catheter Indwelling Catheter Indwelling Catheter # Bowel Movements 1 - Exam GENERAL DESCRIPTION: An elderly male lying in bed in no distress HEENT: Previous track side erythema has significantly decreased no drainage RESPIRATORY SYSTEM: Unlabored breathing , decreased breath sounds at bases HEART: S1 S2 regular rate and rhythm , ABDOMEN: Soft , no tenderness EXTREMITIES: No edema feet - Labs CBC & Chem 7: 02/28/23 08:28 02/28/23 08:28 Labs: Abnormal Lab Results - Last 24 Hours (Table) 02/28/23 02/28/2302/28/23 Range/Units 17:11 17:50 21:01 POC Glucose (mg/dL) 197 H 166 H (70-110) mg/dL Urine Protein Trace H (Negative) Urine Blood Moderate H (Negative) Ur Leukocyte Esterase Large H (Negative) Urine RBC 84 H (0-5) /hpf Urine WBC 126 H (0-5) /hpf Urine WBC Clumps Few H (None) /hpf Urine Bacteria Occasional H (None) /hpf Urine Mucus Moderate H (None) /hpf Microbiology - Last 24 Hours (Table) 02/27/23 09:20 Urine Culture - Preliminary Urine,Voided Gram Neg Bacilli 02/28/23 17:50 Urine Culture - Preliminary Urine,Voided Assessment and Plan (1) UTI (urinary tract infection) due to urinary indwelling catheter Current Visit: Yes Status: Acute Code(s): T83.511A - I/I REACT D/T INDWELLIN G URETHRAL CATHETER, INIT; N39.0 - URINARY TRACT INFECTION, SITE NOT SPECIFIED SNOMED Code(s): 910731621 Plan: 1patient with a chronic indwelling Dillard catheter that has been inserted for urinary retention and was noticed to have a significantly cloudiness with a UA now showing positive leukocyte esterase and WBC with concern for possible c atheter associated UTI versus Dillard colonization, the patient Dillard has already been changed however the urine was obtained from the old catheter RN has been instructed to obtain UA from the new catheter, urine cultures currently growing gram-negative with ID sensitivities pending we will continue patient on Rocephin while waiting for the cultures to finalize Time with Patient: Less than 30
[2023-03-01 17:09] LABS: Glucose,Whole Blood 164 mg/dL (70-110)
[2023-03-01] MEDS: HYDROcodone/APAP 5-325MG 1 EACH TAB PO PRN (20:34)
[2023-03-01] MEDS: ATORVASTATIN 40 MG TAB PO SCH (20:34)
[2023-03-01] MEDS: INSULIN DETEMIR (LEVEMIR) 100 UNIT/ML SYR SQ SCH (20:34)
[2023-03-01 20:35] LABS: Glucose,Whole Blood 167 mg/dL (70-110)
[2023-03-02] MEDS: HEPARIN SODIUM,PORCINE/PF 5,000 UNIT/0.5 ML SYRINGE SQ SCH ×3 (00:42→16:00)
--- NOTE | 2023-03-02 00:48 | PN ---
PROGRESS NOTE SUBJECTIVE: to be discharged today, which apparently a fell through due to some legal valdez that continues between guardianship and getting a Medicaid approved, etc. He remains stable. He is on DuoNeb for his breathing, Norvasc for his hypertension, Pulmicort for COPD, Cymbalta for depression and chronic pain syndrome, fenofibrate for dyslipidemia, heparin subcu, Accu-Chek protocol, Levemir 60 units at night, Cozaar 25 mg daily for hypertension, Lopressor 50 b.i.d. for hypertension, Flomax 0.4 mg for BPH. OBJECTIVE: VITAL SIGNS: Temp 97.8, blood pressure is 131/72, O2 96 on room air, pulse 64, respiratory rate 18. CARDIOVASCULAR: S1, S2. LUNGS: Decreased breath sounds x4. Scattered rhonchi and wheeze. HEMATOLOGY: Negative for Homans. PSYCH: Fair mood and affect. NEUROLOGIC: Alert and oriented x3. He has metabolic encephalopathy, which has cleared up. He is status post CVA, tracheostomy with cellulitis of the neck, which appears to be improved. He has an indwelling Dillard catheter. Urology seen for BPH. His labs are good. Lungs are Abdomen is soft. Extremities, no edema. LABORATORY DATA: White count is 5.8, hemoglobin 12.6. ASSESSMENT: Urinary tract infection due to the indwelling Dillard, urinary obstruction, seen by Urology. Urine culture showed gram-negative. Continue with Rocephin until cultures are back. Continue with home medicines for hypertension, COPD, prior stroke. Wait for discharge planning. involved. His sugars are maintaining in the 90s to 100 range. Please see further orders. MMODL / IJN: [id number] /
[2023-03-02] MEDS: HYDROcodone/APAP 5-325MG 1 EACH TAB PO PRN ×2 (03:49→20:27)
[2023-03-02] MEDS: ALPRAZolam 0.25 MG TAB PO PRN ×3 (03:50→20:26)
[2023-03-02 07:01] LABS: Glucose,Whole Blood 73 mg/dL (70-110)
[2023-03-02] MEDS: INSULIN ASPART (NovoLOG) 100 UNIT/ML VIAL SQ SCH ×3 (07:45→18:09)
[2023-03-02] MEDS: amLODIPine 10 MG TAB PO SCH (08:41)
[2023-03-02] MEDS: POTASSIUM CHLORIDE ER 20 MEQ TAB.ER PO SCH (08:41)
[2023-03-02] MEDS: TAMSULOSIN 0.4 MG CAP.ER.24H PO SCH (08:41)
[2023-03-02] MEDS: METOPROLOL TARTRATE 50 MG TAB PO SCH ×2 (08:41→20:26)
[2023-03-02] MEDS: MULTIVITAMINS, THERA 1 EACH TAB PO SCH (08:42)
[2023-03-02] MEDS: ASPIRIN 81 MG PO SCH (08:42)
[2023-03-02] MEDS: DOCUSATE 100 MG CAP PO SCH ×2 (08:42→20:26)
[2023-03-02] MEDS: LOSARTAN 25 MG TAB PO SCH (08:42)
[2023-03-02] MEDS: DULoxetine HCL 60 MG CAPSULE.DR PO SCH (08:42)
[2023-03-02] MEDS: FENOFIBRATE 54 MG TAB PO SCH (08:43)
[2023-03-02] MEDS: buPROPion SR 100 MG TABLET.ER PO SCH (08:43)
[2023-03-02] MEDS: SODIUM CHLORIDE 0.9% 1,000 ML IV SCH (08:44)
[2023-03-02] MEDS: BUDESONIDE 0.5 MG/2 ML NEBU INHALATION SCH ×2 (08:47→20:22)
[2023-03-02] MEDS: IPRATROPIUM-ALBUTEROL 3 ML NEB INHALATION SCH ×4 (08:47→20:22)
[2023-03-02 11:09] LABS: Glucose,Whole Blood 159 mg/dL (70-110)
--- NOTE | 2023-03-02 14:31 | P.PN ---
Subjective Progress Note Date: 03/02/23 Principal diagnosis: CAUTI Patient is a 67-year-old male with a past medical history significant for right hemiplegia secondary to CVA history of this very failure requiring tracheostomy subsequently worsened has been brought in the hospital for generalized weakness and debility and concern for possible cellulitis to the previous trach site patient did have a CT of the soft tissue of the neck did not show any evidence of abscess, patient has been adequately treated for cellulitis of the neck patient is currently in the hospital for 40+ days and is awaiting for placement patient did have a indwelling Dillard catheter and was noticed to have significant cloudiness of urine UA was obtained which was positive for the catheter has been changed any infectious disease was asked for REevaluation On today's evaluation that is 03/02/2023, the patient continuous to be afebrile, the patient is breathing comfortably on room air, the patient denies chest pain or shortness of breath,no nausea no vomiting no abdominal pain or diarrhea Objective - Vital Signs Vital signs: Vital Signs Temp 98.0 F 03/02/23 12:29 Pulse 75 03/02/23 12:29 Resp 16 03/02/23 12:29 BP 133/75 03/02/23 12:29 Pulse Ox 97 03/02/23 12:29 FiO2 21 02/21/23 08:33 Intake & Output 03/01/23 03/02/23 03/02/23 18:59 06:59 18:59 Intake Total 900 Output Total 1250 800 700 Balance -1250 100 -700 Intake: IV 900 Sodium Chloride 0.9% 1, 900 000 ml @ 75 mls/hr IV . [id number] [facility] Rx#:[id number] Output: Urine 1250 800 700 Uretheral (Dillard) 200 Other: Voiding Method Indwelling Catheter Indwelling Catheter Indwelling Catheter # Bowel Movements 1 - Exam GENERAL DESCRIPTION: An elderly male lying in bed in no distress HEENT: Previous track side erythema has significantly decreased no drainage RESPIRATORY SYSTEM: Unlabored breathing , decreased breath sounds at bases HEART: S1 S2 regular rate and rhythm , ABDOMEN: Soft , no tenderness EXTREMITIES: No edema feet - Labs CBC & Chem 7: 02/28/23 08:28 02/28/23 08:28 Labs: Abnormal Lab Results - Last 24 Hours (Table) 03/01/23 03/01/23 03/02/23 Range/Units 17:05 20:33 11:08 POC Glucose (mg/dL) 164 H 167 H 159 H (70-110) mg/dL Microbiology - Last 24 Hours (Table) 02/28/23 17:50 Urine Culture - Preliminary Urine,Voided Gram Neg Bacilli 02/27/23 09:20 Urine Culture - Final Urine,Voided Serratia marcescens Assessment and Plan (1) UTI (urinary tract infection) due to urinary indwelling catheter Current Visit: Yes Status: Acute Code(s): T83.511A - I/I REACT D/T INDWELLING URETHRAL CATHETER, INIT; N39.0 - URINARY TRACT INFECTION, SITE NOT SPECIFIED SNOMED Code(s): 490972864 Plan: 1patient with a chronic indwelling Dillard catheter that has been inserted for urinary retention and was noticed to have a significantly cloudiness with a UA now showing positive leukocyte esterase and WBC with concern for possible catheter associated UTI versus Dillard colonization, the patient Dillard has already been changed however the urine was obtained from the old catheter RN has been instructed to obtain UA from the new catheter 2- urine cultures grow Serratia marcescens, patient seemed to have a clinical improvement and will continue patient on Rocephin and monitor clinical course closely Time with Patient: Less than 30
[2023-03-02 17:14] LABS: Glucose,Whole Blood 179 mg/dL (70-110)
[2023-03-02 20:06] LABS: Glucose,Whole Blood 203 mg/dL (70-110)
[2023-03-02] MEDS: ATORVASTATIN 40 MG TAB PO SCH (20:27)
[2023-03-02] MEDS: INSULIN DETEMIR (LEVEMIR) 100 UNIT/ML SYR SQ SCH (20:43)
[2023-03-03] MEDS: HEPARIN SODIUM,PORCINE/PF 5,000 UNIT/0.5 ML SYRINGE SQ SCH ×3 (01:21→16:31)
[2023-03-03 07:14] LABS: Glucose,Whole Blood 67 mg/dL (70-110)
[2023-03-03 07:34] LABS: Glucose,Whole Blood 75 mg/dL (70-110)
[2023-03-03] MEDS: BUDESONIDE 0.5 MG/2 ML NEBU INHALATION SCH ×2 (08:05→20:09)
[2023-03-03] MEDS: IPRATROPIUM-ALBUTEROL 3 ML NEB INHALATION SCH ×4 (08:05→20:09)
[2023-03-03] MEDS: ASPIRIN 81 MG PO SCH (08:58)
[2023-03-03] MEDS: TAMSULOSIN 0.4 MG CAP.ER.24H PO SCH (08:58)
[2023-03-03] MEDS: HYDROcodone/APAP 5-325MG 1 EACH TAB PO PRN ×2 (08:58→21:53)
[2023-03-03] MEDS: amLODIPine 10 MG TAB PO SCH (08:59)
[2023-03-03] MEDS: POTASSIUM CHLORIDE ER 20 MEQ TAB.ER PO SCH (08:59)
[2023-03-03] MEDS: METOPROLOL TARTRATE 50 MG TAB PO SCH ×2 (08:59→21:50)
[2023-03-03] MEDS: DOCUSATE 100 MG CAP PO SCH ×2 (08:59→21:50)
[2023-03-03] MEDS: DULoxetine HCL 60 MG CAPSULE.DR PO SCH (08:59)
[2023-03-03] MEDS: LOSARTAN 25 MG TAB PO SCH (08:59)
[2023-03-03] MEDS: MULTIVITAMINS, THERA 1 EACH TAB PO SCH (09:00)
[2023-03-03] MEDS: FENOFIBRATE 54 MG TAB PO SCH (09:00)
[2023-03-03] MEDS: buPROPion SR 100 MG TABLET.ER PO SCH (09:00)
[2023-03-03] MEDS: INSULIN ASPART (NovoLOG) 100 UNIT/ML VIAL SQ SCH ×3 (09:04→17:39)
[2023-03-03 11:16] LABS: Glucose,Whole Blood 166 mg/dL (70-110)
[2023-03-03] MEDS: ALPRAZolam 0.25 MG TAB PO PRN ×2 (12:07→21:53)
[2023-03-03] MEDS: SODIUM CHLORIDE 0.9% 1,000 ML IV SCH ×2 (14:00→16:37)
--- NOTE | 2023-03-03 14:36 | P.PN ---
Subjective Progress Note Date: 03/03/23 Principal diagnosis: CAUTI Patient is a 67-year-old male with a past medical history significant for right hemiplegia secondary to CVA history of this very failure requiring tracheostomy subsequently worsened has been brought in the hospital for generalized weakness and debility and concern for possible cellulitis to the previous trach site patient did have a CT of the soft tissue of the neck did not show any evidence of abscess, patient has been adequately treated for cellulitis of the neck patient is currently in the hospital for 40+ days and is awaiting for placement patient did have a indwelling Dillard catheter and was noticed to have significant cloudiness of urine UA was obtained which was positive for the catheter has been changed any infectious disease was asked for REevaluation On today's evaluation that is 03/03/2023, the patient remains to be afebrile, the patient is breathing comfortably on room air, the patient denies chest pain or shortness of breath,no nausea no vomiting no abdominal pain or diarrhea, patient has been asking about stitches lower left side of the neck when it can be removed Objective - Vital Signs Vital signs: Vital Signs Temp 97.9 F 03/03/23 12:51 Pulse 86 03/03/23 12:56 Resp 18 03/03/23 12:51 BP 143/73 03/03/23 12:51 Pulse Ox 100 03/03/23 12:51 FiO2 21 02/21/23 08:33 Intake & Output 03/02/23 03/03/23 03/03/23 18:59 06:59 18:59 Output Total 1275 900 500 Balance -1275 -900 -500 Weight 80 kg Output: Urine 1275 900 500 Other: Voiding Method Indwelling Catheter Indwelling Catheter Indwelling Catheter # Bowel Movements 1 - Exam GENERAL DESCRIPTION: An elderly male lying in bed in no distress HEENT: Previous track side erythema has significantly decreased no drainage RESPIRATORY SYSTEM: Unlabored breathing , decreased breath sounds at bases HEART: S1 S2 regular rate and rhythm , ABDOMEN: Soft , no tenderness EXTREMITIES: No edema feet - Labs CBC & Chem 7: 02/28/23 08:28 02/28/23 08:28 Labs: Abnormal Lab Results - Last 24 Hours (Table) 03/02/23 03/02/23 03/03/23 Range/Units 17:13 20:05 07:13 POC Glucose (mg/dL) 179 H 203 H 67 L (70-110) mg/dL 03/03/23 Range/Units 11:15 POC Glucose (mg/dL) 166 H (70-110) mg/dL Microbiology - Last 24 Hours (Table) 02/28/23 17:50 Urine Culture - Preliminary Urine,Voided Serratia marcescens Assessment and Plan (1) UTI (urinary tract infection) due to urinary indwelling catheter Current Visit: Yes Status: Acute Code(s): T83.511A - I/I REACT D/T INDWEL LING URETHRAL CATHETER, INIT; N39.0 - URINARY TRACT INFECTION, SITE NOT SPECIFIED SNOMED Code(s): 315908361 Plan: 1patient with a chronic indwelling Dillard catheter that has been inserted for urinary retention and was noticed to have a significantly cloudiness with a UA now showing positive leukocyte esterase and WBC with concern for possible catheter associated UTI versus Dillard colonization, the patient Dillard has already been changed however the urine was obtained from the old catheter RN has been instructed to obtain UA from the new catheter 2- the patient urine cultures grow Serratia marcescens that is sensitive to ceftriaxone 3- patient seemed to have a clinical improvement and will continue patient on Rocephin and continue supportive care, stitches to be removed by the surgical services discussed with the patient Time with Patient: Less than 30
[2023-03-03 17:24] LABS: Glucose,Whole Blood 201 mg/dL (70-110)
[2023-03-03 20:41] LABS: Glucose,Whole Blood 223 mg/dL (70-110)
[2023-03-03] MEDS: ATORVASTATIN 40 MG TAB PO SCH (21:50)
[2023-03-03] MEDS: INSULIN DETEMIR (LEVEMIR) 100 UNIT/ML SYR SQ SCH (21:50)
[2023-03-04] MEDS: HEPARIN SODIUM,PORCINE/PF 5,000 UNIT/0.5 ML SYRINGE SQ SCH ×3 (00:36→16:53)
[2023-03-04 07:11] LABS: Glucose,Whole Blood 81 mg/dL (70-110)
[2023-03-04] MEDS: IPRATROPIUM-ALBUTEROL 3 ML NEB INHALATION SCH ×4 (08:45→19:59)
[2023-03-04] MEDS: BUDESONIDE 0.5 MG/2 ML NEBU INHALATION SCH ×2 (08:45→19:59)
[2023-03-04] MEDS: INSULIN ASPART (NovoLOG) 100 UNIT/ML VIAL SQ SCH ×3 (08:56→17:32)
[2023-03-04] MEDS: ASPIRIN 81 MG PO SCH (09:53)
[2023-03-04] MEDS: METOPROLOL TARTRATE 50 MG TAB PO SCH ×2 (09:53→20:15)
[2023-03-04] MEDS: amLODIPine 10 MG TAB PO SCH (09:53)
[2023-03-04] MEDS: DOCUSATE 100 MG CAP PO SCH ×2 (09:53→20:15)
[2023-03-04] MEDS: TAMSULOSIN 0.4 MG CAP.ER.24H PO SCH (09:54)
[2023-03-04] MEDS: MULTIVITAMINS, THERA 1 EACH TAB PO SCH (09:54)
[2023-03-04] MEDS: LOSARTAN 25 MG TAB PO SCH (09:54)
[2023-03-04] MEDS: POTASSIUM CHLORIDE ER 20 MEQ TAB.ER PO SCH (09:54)
[2023-03-04] MEDS: DULoxetine HCL 60 MG CAPSULE.DR PO SCH (09:54)
[2023-03-04] MEDS: SODIUM CHLORIDE 0.9% 1,000 ML IV SCH ×2 (09:55→21:40)
[2023-03-04] MEDS: buPROPion SR 100 MG TABLET.ER PO SCH (09:55)
[2023-03-04] MEDS: FENOFIBRATE 54 MG TAB PO SCH (09:55)
[2023-03-04] MEDS: ALPRAZolam 0.25 MG TAB PO PRN ×2 (10:01→20:15)
[2023-03-04 11:43] LABS: Glucose,Whole Blood 108 mg/dL (70-110)
[2023-03-04 17:08] LABS: Glucose,Whole Blood 213 mg/dL (70-110)
--- NOTE | 2023-03-04 20:03 | P.PN ---
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 history of this very failure requiring tracheostomy subsequently worsened has been brought in the hospital for generalized weakness and debility and concern for possible cellulitis to the previous trach site patient did have a CT of the soft tissue of the neck did not show any evidence of abscess, patient has been adequately treated for cellulitis of the neck patient is currently in the hospital for 40+ days and is awaiting for placement patient did have a indwelling Dlilard catheter and was noticed to have significant cloudiness of urine UA was obtained which was positive for the catheter has been changed any infectious disease was asked for REevaluation On today's evaluation that is 03/04/2023, the patient is afebrile, the patient is breathing comfortably on room air, the patient denies chest pain shortness of breath or cough,no nausea no vomiting no abdominal pain or diarrhea, Objective - Vital Signs Vital signs: Vital Signs Temp 97 F L 03/04/23 07:37 Pulse 74 03/04/23 07:37 Resp 18 03/04/23 07:37 BP 164/78 03/04/23 07:37 Pulse Ox 97 03/04/23 08:45 FiO2 21 02/21/23 08:33 Intake & Output 03/03/23 03/04/23 03/04/23 18:59 06:59 18:59 Intake Total 0 Output Total 1000 1200 Balance -1000 -1200 Weight 80 kg Intake: Oral 0 Output: Urine 1000 1200 Other: Voiding Method Indwelling Catheter Indwelling Catheter - Exam GENERAL DESCRIPTION: An elderly male lying in bed in no distress HEENT: Previous track side erythema has significantly decreased no drainage RESPIRATORY SYSTEM: Unlabored breathing , decreased breath sounds at bases HEART: S1 S2 regular rate and rhythm , ABDOMEN: Soft , no tenderness EXTREMITIES: No edema feet - Labs CBC & Chem 7: 02/28/23 08:28 02/28/23 08:28 Labs: Abnormal Lab Results - Last 24 Hours (Table) 03/03/23 03/03/23 03/03/23 Range/Units 11:15 17:23 20:37 POC Glucose (mg/dL) 166 H 201 H 223 H (70-110) mg/dL Microbiology - Last 24 Hours (Table) 02/28/23 17:50 Urine Culture - Preliminary Urine,Voided Serratia marcescens Assessment and Plan (1) UTI (urinary tract infection) due to urinary indwelling catheter Current Visit: Yes Status: Acute Code(s): T83.511A - I/I REACT D/T INDWELLING URETHRAL CATHETER, INIT; N39.0 - URINARY TRACT INFECTION, SITE NOT SPECIFIED SNOMED Code(s): 818864994 Plan: 1patient with a chronic indwelling Dillard catheter that has been inserted for urinary retention and was noticed to have a significantly cloudiness with a UA now showing positive leukocyte esterase and WBC with concern for possible catheter associated UTI versus Dillard colonization, the patient Dillard has already been changed however the urine was obtained from the old catheter RN has been instructed to obtain UA from the new catheter 2- the patient urine cultures grow Serratia marcescens that is sensitive to ceftriaxone 3- patient has shown clinical improvement , Pt will continue patient on Rocephin and continue supportive care Time with Patient: Less than 30
[2023-03-04] MEDS: HYDROcodone/APAP 5-325MG 1 EACH TAB PO PRN (20:14)
[2023-03-04] MEDS: ATORVASTATIN 40 MG TAB PO SCH (20:14)
[2023-03-04 20:51] LABS: Glucose,Whole Blood 165 mg/dL (70-110)
[2023-03-04] MEDS: INSULIN DETEMIR (LEVEMIR) 100 UNIT/ML SYR SQ SCH (21:39)
--- NOTE | 2023-03-04 23:58 | PN ---
PROGRESS NOTE DATE OF SERVICE: 03/04/2023 SUBJECTIVE: He appears to be stable today, 03/04/2023. Dr. Rosen saw the patient. He is status post cellulitis of the neck. Blood pressure does go up to 160/78, at times a little bit high. OBJECTIVE: VITAL SIGNS: Temperature 97.9, pulse 81, respiratory rate 18 to 16, blood pressure 122/76, O2 of 97%. ABDOMEN: Soft, nontender. EXTREMITIES: No cyanosis, clubbing, or edema. ASSESSMENT: Urinary tract infection with chronic indwelling Dillard catheter, questionable urinary tract infection versus colonization. Remains on Rocephin. Has Serratia marcescens sensitive to Rocephin. Continue on that for antibiotics. Hypertension, controlled. Diabetes, controlled. Prior cerebrovascular accident with right-sided weakness. Wait for physical therapy and home placement per guardian and Medicare Medicaid. MMODL / IJN: [id number] /
[2023-03-05] MEDS: HEPARIN SODIUM,PORCINE/PF 5,000 UNIT/0.5 ML SYRINGE SQ SCH ×4 (00:18→23:28)
--- NOTE | 2023-03-05 00:37 | PN ---
PROGRESS NOTE DATE OF SERVICE: 03/03/2023 SUBJECTIVE: He states he is going to divorce his in order to get Medicaid in order to get out of the hospital is pending. Overall, he is more alert. whenever he comes in. He is giving appropriate answers. OBJECTIVE: CARDIOVASCULAR: S1, S2. LUNGS: Clear. GI: Soft. HEMATOLOGY: Negative Homans. ASSESSMENT: Prior cerebrovascular accident, altered mental status, status post tracheostomy, cellulitis, and prior cerebrovascular accident, chronic obstructive pulmonary disease, dyslipidemia, anxiety, hypertension, diabetes mellitus, sugars have been 100s to 200s. He appears stabilized. Waiting for long-standing discharge placement issues. Awaiting for guardian versus Medicare and Medicaid appeal to get him a place to go for rehab. Prognosis guarded. MMODL / IJN: [id number] /
[2023-03-05 06:48] LABS: Basophils % (A) 1 %; Eosinophils # (A) 0.4 k/uL (0-0.7); Eosinophils % (A) 7 %; HCT 38.1 % (39.0-53.0); HGB 12.3 gm/dL (13.0-17.5); Hypochromasia Slight; Lymphocytes # (A) 1.5 k/uL (1.0-4.8); Lymphocytes % (A) 29 %; MCH 31.2 pg (25.0-35.0); MCHC 32.3 g/dL (31.0-37.0); MCV 96.4 fL (80.0-100.0); Monocytes # (A) 0.5 k/uL (0-1.0); Monocytes % (A) 9 %; Neutrophils # (A) 2.7 k/uL (1.3-7.7); Neutrophils % (A) 51 %; Platelet Count 219 k/uL (150-450); RBC 3.96 m/uL (4.30-5.90); WBC 5.3 k/uL (3.8-10.6)
[2023-03-05 06:51] LABS: ALT 17 U/L (4-49); AST 20 U/L (17-59); African American GFR (CKD) >90 (>60 ml/min/1.73 sqM); Albumin 3.6 g/dL (3.5-5.0); Albumin/Globulin Ratio 1.6; Alkaline Phosphatase 61 U/L (38-126); Anion Gap 6 mmol/L; Blood Urea Nitrogen 17 mg/dL (9-20); Calcium 9.2 mg/dL (8.4-10.2); Carbon Dioxide 26 mmol/L (22-30); Chloride 105 mmol/L (98-107); Globulin 2.3 g/dL; Glucose 102 mg/dL (74-99); Non-African American GFR(CKD) >90 (>60 ml/min/1.73 sqM); Potassium 3.9 mmol/L (3.5-5.1); Sodium 137 mmol/L (137-145); Total Bilirubin 0.3 mg/dL (0.2-1.3); Total Protein 5.9 g/dL (6.3-8.2)
[2023-03-05] MEDS: IPRATROPIUM-ALBUTEROL 3 ML NEB INHALATION SCH ×4 (07:45→20:08)
[2023-03-05] MEDS: BUDESONIDE 0.5 MG/2 ML NEBU INHALATION SCH ×2 (07:45→20:08)
[2023-03-05 08:27] LABS: Glucose,Whole Blood 107 mg/dL (70-110)
[2023-03-05] MEDS: INSULIN ASPART (NovoLOG) 100 UNIT/ML VIAL SQ SCH ×3 (08:34→18:00)
[2023-03-05] MEDS: METOPROLOL TARTRATE 50 MG TAB PO SCH ×2 (09:25→20:22)
[2023-03-05] MEDS: ASPIRIN 81 MG PO SCH (09:25)
[2023-03-05] MEDS: TAMSULOSIN 0.4 MG CAP.ER.24H PO SCH (09:25)
[2023-03-05] MEDS: LOSARTAN 25 MG TAB PO SCH (09:25)
[2023-03-05] MEDS: FENOFIBRATE 54 MG TAB PO SCH (09:25)
[2023-03-05] MEDS: DULoxetine HCL 60 MG CAPSULE.DR PO SCH (09:25)
[2023-03-05] MEDS: ALPRAZolam 0.25 MG TAB PO PRN ×2 (09:25→20:30)
[2023-03-05] MEDS: buPROPion SR 100 MG TABLET.ER PO SCH (09:25)
[2023-03-05] MEDS: MULTIVITAMINS, THERA 1 EACH TAB PO SCH (09:25)
[2023-03-05] MEDS: POTASSIUM CHLORIDE ER 20 MEQ TAB.ER PO SCH (09:25)
[2023-03-05] MEDS: amLODIPine 10 MG TAB PO SCH (09:25)
[2023-03-05] MEDS: DOCUSATE 100 MG CAP PO SCH ×2 (09:25→20:22)
[2023-03-05] MEDS: SODIUM CHLORIDE 0.9% 1,000 ML IV SCH (09:32)
[2023-03-05 11:21] LABS: Glucose,Whole Blood 134 mg/dL (70-110)
[2023-03-05 17:06] LABS: Glucose,Whole Blood 221 mg/dL (70-110)
--- NOTE | 2023-03-05 18:38 | PN ---
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 Prior tracheostomy for which cellulitis was treated when he first came in with a trach. CT of the neck did not show anything. He had a urinary tract infection with urinary retention. He has a Dillard in, being treated with IV antibiotics per Dr. Rosen. OBJECTIVE: VITAL SIGNS: Blood pressure 150s over 70s, pulse 70s to 60s, respiratory rate 12 to 18, FiO2 is 21. CARDIOVASCULAR: S1, S2. LUNGS: Transmitted upper sounds. GI: Soft. HEMATOLOGY: Negative Homans. PSYCH: Fair mood and affect. LABORATORY DATA: Hemoglobin is 12.5. ASSESSMENT: Urinary tract infection due to indwelling Dillard catheter from Serratia marcescens. Continue current treatment. Follow up in next 24 to 48 hours. MMODL / IJN: [id number] /
[2023-03-05] MEDS: ATORVASTATIN 40 MG TAB PO SCH (20:22)
[2023-03-05] MEDS: INSULIN DETEMIR (LEVEMIR) 100 UNIT/ML SYR SQ SCH (20:23)
[2023-03-05] MEDS: HYDROcodone/APAP 5-325MG 1 EACH TAB PO PRN (20:30)
[2023-03-05 20:54] LABS: Glucose,Whole Blood 188 mg/dL (70-110)
[2023-03-06] MEDS: SODIUM CHLORIDE 0.9% 1,000 ML IV SCH ×2 (05:46→17:46)
[2023-03-06 07:28] LABS: Glucose,Whole Blood 112 mg/dL (70-110)
[2023-03-06] MEDS: INSULIN ASPART (NovoLOG) 100 UNIT/ML VIAL SQ SCH ×3 (07:33→17:45)
[2023-03-06] MEDS: BUDESONIDE 0.5 MG/2 ML NEBU INHALATION SCH ×2 (07:35→19:40)
[2023-03-06] MEDS: IPRATROPIUM-ALBUTEROL 3 ML NEB INHALATION SCH ×4 (07:36→19:40)
[2023-03-06] MEDS: TAMSULOSIN 0.4 MG CAP.ER.24H PO SCH (09:27)
[2023-03-06] MEDS: DOCUSATE 100 MG CAP PO SCH ×2 (09:27→20:01)
[2023-03-06] MEDS: buPROPion SR 100 MG TABLET.ER PO SCH (09:27)
[2023-03-06] MEDS: DULoxetine HCL 60 MG CAPSULE.DR PO SCH (09:27)
[2023-03-06] MEDS: MULTIVITAMINS, THERA 1 EACH TAB PO SCH (09:27)
[2023-03-06] MEDS: ASPIRIN 81 MG PO SCH (09:27)
[2023-03-06] MEDS: amLODIPine 10 MG TAB PO SCH (09:27)
[2023-03-06] MEDS: FENOFIBRATE 54 MG TAB PO SCH (09:27)
[2023-03-06] MEDS: LOSARTAN 25 MG TAB PO SCH (09:27)
[2023-03-06] MEDS: HEPARIN SODIUM,PORCINE/PF 5,000 UNIT/0.5 ML SYRINGE SQ SCH ×2 (09:27→17:46)
[2023-03-06] MEDS: POTASSIUM CHLORIDE ER 20 MEQ TAB.ER PO SCH (09:27)
[2023-03-06] MEDS: METOPROLOL TARTRATE 50 MG TAB PO SCH ×2 (09:27→20:01)
[2023-03-06] MEDS: ALPRAZolam 0.25 MG TAB PO PRN ×2 (09:52→20:01)
[2023-03-06 11:40] LABS: Glucose,Whole Blood 128 mg/dL (70-110)
--- NOTE | 2023-03-06 13:48 | P.PN ---
Subjective Progress Note Date: 03/06/23 CHIEF COMPLAINT: Lymphadenopathy HISTORY OF PRESENT ILLNESS: Patient is status post excision of left cervical lymph node on 02/08/23. Patient reports no pain. Path result Positive for Hodgkin lymphoma. PHYSICAL EXAM: VITAL SIGNS: Reviewed. GENERAL: Well-developed in no acute distress. HEENT: Left neck incision is clean dry and intact. Still has swelling but much improved. No bruising noted NEUROLOGIC: Alert and oriented. Cranial nerves II through XII grossly intact. ASSESSMENT: 1. Lymphadenopathy is status post excision of left cervical lymph node. Pathology result positive for Hodgkin lymphoma 2. Lymphocele. Patient has likely an increase in lymphatic fluid at the biopsy site. PLAN: -Sutures removed today from incision -Surgical service signed off. Please call with any questions or concerns Physician Digital Producer note has been reviewed by physician. Signing provider agrees with the documented findings, assessment, and plan of care. Objective - Vital Signs Vital signs: Vital Signs Temp 97.6 F 03/06/23 07:26 Pulse 82 03/06/23 07:26 Resp 17 03/06/23 07:26 BP 149/73 03/06/23 07:26 Pulse Ox 98 03/06/23 07:34 FiO2 21 03/06/23 07:34 Intake & Output 03/05/23 03/06/23 03/06/23 18:59 06:59 18:59 Intake Total 950 900 Output Total 2500 750 1200 Balance -1550 150 -1200 Intake: IV 900 Sodium Chloride 0.9% 1, 900 000 ml @ 75 mls/hr IV . [id number] JUANA Rx#:[id number] Intake, IV Titration 950 Amount Sodium Chloride 0.9% 1, 900 000 ml @ 75 mls/hr IV . [id number] JUANA Rx#:[id number] cefTRIAXone 1 gm In 50 Sodium Chloride 0.9% 50 ml @ 100 mls/hr IVPB Q24HR JUANA Rx#:[id number] Output: Urine 2500 750 1200 Other: Voiding Method Indwelling Catheter Indwelling Catheter Indwelling Catheter - Labs CBC & Chem 7: 03/05/23 06:09 03/05/23 06:14 Labs: Abnormal Lab Results - Last 24 Hours (Table) 03/05/23 03/05/23 03/06/23 Range/Units 17:04 20:48 07:26 POC Glucose (mg/dL) 221 H 188 H 112 H (70-110) mg/dL 03/06/23 Range/Units 11:38 POC Glucose (mg/dL) 128 H (70-110) mg/dL
[2023-03-06 17:37] LABS: Glucose,Whole Blood 175 mg/dL (70-110)
[2023-03-06] MEDS: INSULIN DETEMIR (LEVEMIR) 100 UNIT/ML SYR SQ SCH (20:01)
[2023-03-06] MEDS: ATORVASTATIN 40 MG TAB PO SCH (20:01)
[2023-03-06 20:46] LABS: Glucose,Whole Blood 169 mg/dL (70-110)
[2023-03-06] MEDS: HYDROcodone/APAP 5-325MG 1 EACH TAB PO PRN (21:10)
[2023-03-07] MEDS: HEPARIN SODIUM,PORCINE/PF 5,000 UNIT/0.5 ML SYRINGE SQ SCH ×4 (00:27→22:17)
[2023-03-07] MEDS: SODIUM CHLORIDE 0.9% 1,000 ML IV SCH ×2 (05:33→15:58)
[2023-03-07 07:16] LABS: Glucose,Whole Blood 119 mg/dL (70-110)
[2023-03-07] MEDS: INSULIN ASPART (NovoLOG) 100 UNIT/ML VIAL SQ SCH ×3 (07:32→18:07)
[2023-03-07] MEDS: DULoxetine HCL 60 MG CAPSULE.DR PO SCH (08:29)
[2023-03-07] MEDS: TAMSULOSIN 0.4 MG CAP.ER.24H PO SCH (08:29)
[2023-03-07] MEDS: amLODIPine 10 MG TAB PO SCH (08:29)
[2023-03-07] MEDS: LOSARTAN 25 MG TAB PO SCH (08:29)
[2023-03-07] MEDS: ASPIRIN 81 MG PO SCH (08:29)
[2023-03-07] MEDS: METOPROLOL TARTRATE 50 MG TAB PO SCH ×2 (08:29→21:24)
[2023-03-07] MEDS: POTASSIUM CHLORIDE ER 20 MEQ TAB.ER PO SCH (08:29)
[2023-03-07] MEDS: DOCUSATE 100 MG CAP PO SCH ×2 (08:29→21:24)
[2023-03-07] MEDS: buPROPion SR 100 MG TABLET.ER PO SCH (08:29)
[2023-03-07] MEDS: FENOFIBRATE 54 MG TAB PO SCH (08:29)
[2023-03-07] MEDS: MULTIVITAMINS, THERA 1 EACH TAB PO SCH (08:29)
[2023-03-07] MEDS: BUDESONIDE 0.5 MG/2 ML NEBU INHALATION SCH ×2 (10:50→20:28)
[2023-03-07] MEDS: IPRATROPIUM-ALBUTEROL 3 ML NEB INHALATION SCH ×4 (10:51→20:28)
[2023-03-07 11:21] LABS: Glucose,Whole Blood 128 mg/dL (70-110)
[2023-03-07 16:55] LABS: Glucose,Whole Blood 163 mg/dL (70-110)
[2023-03-07 20:40] LABS: Glucose,Whole Blood 154 mg/dL (70-110)
[2023-03-07] MEDS: INSULIN DETEMIR (LEVEMIR) 100 UNIT/ML SYR SQ SCH (21:24)
[2023-03-07] MEDS: ATORVASTATIN 40 MG TAB PO SCH (21:24)
[2023-03-07] MEDS: ALPRAZolam 0.25 MG TAB PO PRN (21:25)
[2023-03-07] MEDS: HYDROcodone/APAP 5-325MG 1 EACH TAB PO PRN (21:32)
[2023-03-08] MEDS: SODIUM CHLORIDE 0.9% 1,000 ML IV SCH ×2 (04:40→08:43)
[2023-03-08 07:30] LABS: Glucose,Whole Blood 57 mg/dL (70-110)
[2023-03-08] MEDS: INSULIN ASPART (NovoLOG) 100 UNIT/ML VIAL SQ SCH ×3 (07:39→18:10)
[2023-03-08 07:42] LABS: Basophils % (A) 0 %; Eosinophils # (A) 0.3 k/uL (0-0.7); Eosinophils % (A) 5 %; HCT 38.9 % (39.0-53.0); HGB 12.7 gm/dL (13.0-17.5); Lymphocytes # (A) 1.7 k/uL (1.0-4.8); Lymphocytes % (A) 30 %; MCH 30.1 pg (25.0-35.0); MCHC 32.7 g/dL (31.0-37.0); Mean Platelet Volume 6.9; Monocytes # (A) 0.4 k/uL (0-1.0); Monocytes % (A) 7 %; Neutrophils # (A) 3.2 k/uL (1.3-7.7); Neutrophils % (A) 55 %; Platelet Count 214 k/uL (150-450); RBC 4.22 m/uL (4.30-5.90); RDW 15.1 % (11.5-15.5); WBC 5.7 k/uL (3.8-10.6)
[2023-03-08 07:47] LABS: Glucose,Whole Blood 73 mg/dL (70-110)
[2023-03-08 07:57] LABS: ALT 18 U/L (4-49); AST 23 U/L (17-59); African American GFR (CKD) >90 (>60 ml/min/1.73 sqM); Albumin 3.9 g/dL (3.5-5.0); Albumin/Globulin Ratio 1.6; Alkaline Phosphatase 65 U/L (38-126); Anion Gap 8 mmol/L; Blood Urea Nitrogen 19 mg/dL (9-20); Calcium 9.7 mg/dL (8.4-10.2); Carbon Dioxide 25 mmol/L (22-30); Chloride 109 mmol/L (98-107); Globulin 2.5 g/dL; Glucose 53 mg/dL (74-99); Non-African American GFR(CKD) >90 (>60 ml/min/1.73 sqM); Potassium 3.7 mmol/L (3.5-5.1); Sodium 142 mmol/L (137-145); Total Bilirubin 0.3 mg/dL (0.2-1.3); Total Protein 6.4 g/dL (6.3-8.2)
[2023-03-08] MEDS: HEPARIN SODIUM,PORCINE/PF 5,000 UNIT/0.5 ML SYRINGE SQ SCH ×3 (08:43→23:46)
[2023-03-08] MEDS: LOSARTAN 25 MG TAB PO SCH (08:44)
[2023-03-08] MEDS: TAMSULOSIN 0.4 MG CAP.ER.24H PO SCH (08:44)
[2023-03-08] MEDS: FENOFIBRATE 54 MG TAB PO SCH (08:44)
[2023-03-08] MEDS: DULoxetine HCL 60 MG CAPSULE.DR PO SCH (08:44)
[2023-03-08] MEDS: METOPROLOL TARTRATE 50 MG TAB PO SCH ×2 (08:44→19:49)
[2023-03-08] MEDS: amLODIPine 10 MG TAB PO SCH (08:44)
[2023-03-08] MEDS: ASPIRIN 81 MG PO SCH (08:44)
[2023-03-08] MEDS: DOCUSATE 100 MG CAP PO SCH ×2 (08:44→19:49)
[2023-03-08] MEDS: buPROPion SR 100 MG TABLET.ER PO SCH (08:44)
[2023-03-08] MEDS: POTASSIUM CHLORIDE ER 20 MEQ TAB.ER PO SCH (08:44)
[2023-03-08] MEDS: MULTIVITAMINS, THERA 1 EACH TAB PO SCH (08:44)
[2023-03-08] MEDS: BUDESONIDE 0.5 MG/2 ML NEBU INHALATION SCH ×2 (08:56→20:43)
[2023-03-08] MEDS: IPRATROPIUM-ALBUTEROL 3 ML NEB INHALATION SCH ×4 (08:56→20:43)
[2023-03-08 11:07] LABS: Glucose,Whole Blood 131 mg/dL (70-110)
--- NOTE | 2023-03-08 14:40 | P.PN ---
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 history of this very failure requiring tracheostomy subsequently worsened has been brought in the hospital for generalized weakness and debility and concern for possible cellulitis to the previous trach site patient did have a CT of the soft tissue of the neck did not show any evidence of abscess, patient has been adequately treated for cellulitis of the neck patient is currently in the hospital for 40+ days and is awaiting for placement patient did have a indwelling Dillard catheter and was noticed to have significant cloudiness of urine UA was obtained which was positive for the catheter has been changed any infectious disease was asked for REevaluation On today's evaluation that is 03/05/2023, the patient remains to be afebrile, the patient is breathing comfortably on room air, the patient denies chest pain shortness of breath or cough,no nausea no vomiting no abdominal pain or diarrhea, feeling better Objective - Vital Signs Vital signs: Vital Signs Temp 97.5 F L 03/05/23 13:35 Pulse 70 03/05/23 13:35 Resp 17 03/05/23 13:35 BP 155/75 03/05/23 13:35 Pulse Ox 97 03/05/23 13:35 FiO2 21 03/05/23 07:47 Intake & Output 03/04/23 03/05/23 03/05/23 18:59 06:59 18:59 Intake Total 950 900 Output Total 3200 1300 Balance 950 -2300 -1300 Intake: IV 900 Sodium Chloride 0.9% 1, 900 000 ml @ 75 mls/hr IV . [id number] JUANA Rx#:[id number] Intake, IV Titration 50 900 Amount Sodium Chloride 0.9% 1, 900 000 ml @ 75 mls/hr IV . [id number] JUANA Rx#:[id number] cefTRIAXone 1 gm In 50 Sodium Chloride 0.9% 50 ml @ 100 mls/hr IVPB Q24HR JUANA Rx#:[id number] Output: Urine 3200 1300 Uretheral (Dillard) 1100 Other: Voiding Method Indwelling Catheter Indwelling Catheter Indwelling Catheter - Exam GENERAL DESCRIPTION: An elderly male lying in bed in no distress HEENT: Previous track side erythema has significantly decreased no drainage RESPIRATORY SYSTEM: Unlabored breathing , decreased breath sounds at bases HEART: S1 S2 regular rate and rhythm , ABDOMEN: Soft , no tenderness EXTREMITIES: No edema feet - Labs CBC & Chem 7: 03/08/23 07:00 03/08/23 07:00 Labs: Abnormal Lab Results - Last 24 Hours (Table) 03/04/23 03/04/23 03/05/23 Range/Units 17:07 20:50 06:09 RBC 3.96 L (4.30-5.90) m/uL Hgb 12.3 L (13.0-17.5) gm/dL Hct 38.1 L (39.0-53.0) % Glucose (74-99) mg/dL POC Glucose (mg/dL) 213 H 165 H (70-110) mg/dL Total Protein (6.3-8.2) g/dL 03/05/23 03/05/23 Range/Units 06:14 11:19 RBC (4.30-5.90) m/uL Hgb (13.0-17.5) gm/dL Hct (39.0-53.0) % Glucose 102 H (74-99) mg/dL POC Glucose (mg/dL) 134 H (70-110) mg/dL Total Protein 5.9 L (6.3-8.2) g/dL Assessment and Plan (1) UTI (urinary tract infection) due to urinary indwelling catheter Current Visit: Yes Status: Acute Code(s): T83.511A - I/I REACT D/T INDWELLING URETHRAL CATHETER, INIT; N39.0 - URINARY TRACT INFECTION, SITE NOT SPECIFIED SNOMED Code(s): 606441668 Plan: 1patient with a chronic indwelling Dillard catheter that has been inserted for urinary retention and was noticed to have a significantly cloudiness with a UA now showing positive leukocyte esterase and WBC with concern for possible catheter associated UTI versus Dillard colonization, the patient Dillard has already been changed however the urine was obtained from the old catheter RN has been instructed to obtain UA from the new catheter 2- the patient urine cultures grow Serratia marcescens that is sensitive to ceftriaxone 3- patient slowly clinical improvement as for his UTI, patient will continue pa tient on Rocephin and continue supportive care Time with Patient: Less than 30
--- NOTE | 2023-03-08 14:40 | P.PN ---
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 history of this very failure requiring tracheostomy subsequently worsened has been brought in the hospital for generalized weakness and debility and concern for possible cellulitis to the previous trach site patient did have a CT of the soft tissue of the neck did not show any evidence of abscess, patient has been adequately treated for cellulitis of the neck patient is currently in the hospital for 40+ days and is awaiting for placement patient did have a indwelling Dillard catheter and was noticed to have significant cloudiness of urine UA was obtained which was positive for the catheter has been changed any infectious disease was asked for REevaluation On today's evaluation that is 03/06/2023, the patient continues to be afebrile, the patient is breathing comfortably on room air, the patient denies chest pain shortness of breath or cough, the patient denies nausea no vomiting no abdominal pain or diarrhea, no new symptoms Objective - Vital Signs Vital signs: Vital Signs Temp 97.6 F 03/06/23 07:26 Pulse 82 03/06/23 07:26 Resp 17 03/06/23 07:26 BP 149/73 03/06/23 07:26 Pulse Ox 98 03/06/23 07:34 FiO2 21 03/06/23 07:34 Intake & Output 03/05/23 03/06/23 03/06/23 18:59 06:59 18:59 Intake Total 950 900 Output Total 2500 750 1200 Balance -1550 150 -1200 Intake: IV 900 Sodium Chloride 0.9% 1, 900 000 ml @ 75 mls/hr IV . [id number] JUANA Rx#:[id number] Intake, IV Titration 950 Amount Sodium Chloride 0.9% 1, 900 000 ml @ 75 mls/hr IV . [id number] JUANA Rx#:[id number] cefTRIAXone 1 gm In 50 Sodium Chloride 0.9% 50 ml @ 100 mls/hr IVPB Q24HR JUANA Rx#:[id number] Output: Urine 2500 750 1200 Other: Voiding Method Indwelling Catheter Indwelling Catheter Indwelling Catheter - Exam GENERAL DESCRIPTION: An elderly male lying in bed in no distress HEENT: Previous track side erythema has significantly decreased no drainage RESPIRATORY SYSTEM: Unlabored breathing , decreased breath sounds at bases HEART: S1 S2 regular rate and rhythm , ABDOMEN: Soft , no tenderness EXTREMITIES: No edema feet - Labs CBC & Chem 7: 03/08/23 07:00 03/08/23 07:00 Labs: Abnormal Lab Results - Last 24 Hours (Table) 03/05/23 03/05/23 03/06/23 Range/Units 17:04 20:48 07:26 POC Glucose (mg/dL) 221 H 188 H 112 H (70-110) mg/dL 03/06/23 Range/Units 11:38 POC Glucose (mg/dL) 128 H (70-110) mg/dL Assessment and Plan (1) UTI (urinary tract infection) due to urinary indwelling catheter Current Visit: Yes Status: Acute Code(s): T83.511A - I/I REACT D/T INDWELLING URETHRAL CATHETER, INIT; N39.0 - URINARY TRACT INFECTION, SITE NOT SPECIFIED SNOMED Code(s): 241799830 Plan: 1patient with a chronic indwelling Dillard catheter that has been inserted for urinary retention and was noticed to have a significantly cloudiness with a UA now showing positive leukocyte esterase and WBC with concern for possible catheter associated UTI versus Dillard colonization, the patient Dillard has already been changed however the urine was obtained from the old catheter RN has been instructed to obtain UA from the new catheter 2- the patient urine cultures grow Serratia marcescens that is sensitive to ceftriaxone, patient will continue patient on Rocephin and continue supportive care Time with Patient: Less than 30
--- NOTE | 2023-03-08 14:42 | P.PN ---
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 history of this very failure requiring tracheostomy subsequently worsened has been brought in the hospital for generalized weakness and debility and concern for possible cellulitis to the previous trach site patient did have a CT of the soft tissue of the neck did not show any evidence of abscess, patient has been adequately treated for cellulitis of the neck patient is currently in the hospital for 40+ days and is awaiting for placement patient did have a indwelling Dillard catheter and was noticed to have significant cloudiness of urine UA was obtained which was positive for the catheter has been changed any infectious disease was asked for REevaluation On today's evaluation that is 03/07/2023, the patient denies any fever or any chills, the patient is breathing comfortably on room air, the patient denies chest pain shortness of breath or cough, the patient denies nausea no vomiting no abdominal pain or diarrhea, patient is feeling better and no new symptoms Objective - Vital Signs Vital signs: Vital Signs Temp 97.5 F L 03/07/23 12:14 Pulse 61 03/07/23 12:14 Resp 16 03/07/23 12:14 BP 134/68 03/07/23 12:14 Pulse Ox 98 03/07/23 12:14 FiO2 21 03/07/23 12:14 Intake & Output 03/07/23 12:59 Output Total 2100 Balance -2100 Output: Urine 2100 Other: Voiding Method Indwelling Catheter # Bowel Movements 1 - Exam GENERAL DESCRIPTION: An elderly male lying in bed in no distress HEENT: Previous track side erythema has significantly decreased no drainage RESPIRATORY SYSTEM: Unlabored breathing , decreased breath sounds at bases HEART: S1 S2 regular rate and rhythm , ABDOMEN: Soft , no tenderness EXTREMITIES: No edema feet - Labs CBC & Chem 7: 03/08/23 07:00 03/08/23 07:00 Labs: Abnormal Lab Results - Last 24 Hours (Table) 03/07/23 03/07/23 03/08/23 Range/Units 16:54 20:38 07:00 RBC 4.22 L (4.30-5.90) m/uL Hgb 12.7 L (13.0-17.5) gm/dL Hct 38.9 L (39.0-53.0) % Chloride (98-107) mmol/L Creatinine (0.66-1.25) mg/dL Glucose (74-99) mg/dL POC Glucose (mg/dL) 163 H 154 H (70-110) mg/dL 03/08/23 03/08/23 03/08/23 Range/Units 07:00 07:29 11:06 RBC (4.30-5.90) m/uL Hgb (13.0-17.5) gm/dL Hct (39.0-53.0) % Chloride 109 H (98-107) mmol/L Creatinine 0.59 L (0.66-1.25) mg/dL Glucose 53 L (74-99) mg/dL POC Glucose (mg/dL) 57 L 131 H (70-110) mg/dL Assessment and Plan (1) UTI (urinary tract infection) due to urinary indwelling catheter Current Visit: Yes Status: Acute Code(s): T83.511A - I/I REACT D/T INDWELLING URETHRAL CATHETER, INIT; N39.0 - URINARY TRACT INFECTION, SITE NOT SPECIFIED SNOMED Code(s): 554622171 Plan: 1patient with a chronic indwelling Dillard catheter that has been inserted for ur inary retention and was noticed to have a significantly cloudiness with a UA now showing positive leukocyte esterase and WBC with concern for possible catheter associated UTI versus Dillard colonization, the patient Dillard has already been changed however the urine was obtained from the old catheter RN has been instructed to obtain UA from the new catheter 2- the patient urine cultures grow Serratia marcescens that is sensitive to ceftriaxone, patient has received a 7 day course of Rocephin which should be more than enough no need for further extension of antibiotic Time with Patient: Less than 30
--- NOTE | 2023-03-08 14:43 | P.PN ---
Subjective Progress Note Date: 03/08/23 Principal diagnosis: CAUTI Patient is a 67-year-old male with a past medical history significant for right hemiplegia secondary to CVA history of this very failure requiring tracheostomy subsequently worsened has been brought in the hospital for generalized weakness and debility and concern for possible cellulitis to the previous trach site patient did have a CT of the soft tissue of the neck did not show any evidence of abscess, patient has been adequately treated for cellulitis of the neck patient is currently in the hospital for 40+ days and is awaiting for placement patient did have a indwelling Dillard catheter and was noticed to have significant cloudiness of urine UA was obtained which was positive for the catheter has been changed any infectious disease was asked for REevaluation On today's evaluation that is 03/08/2023, the patient remains to be afebrile, the patient is breathing comfortably on room air, the patient denies chest pain shortness of breath or cough, the patient denies nausea no vomiting no abdominal pain or diarrhea, Objective - Vital Signs Vital signs: Vital Signs Temp 97.5 F L 03/08/23 12:14 Pulse 61 03/08/23 12:14 Resp 16 03/08/23 12:14 BP 134/68 03/08/23 12:14 Pulse Ox 98 03/08/23 12:14 FiO2 21 03/06/23 07:34 Intake & Output 03/07/23 03/08/23 03/08/23 18:59 06:59 18:59 Output Total 2100 500 600 Balance -2100 -500 -600 Output: Urine 2100 500 600 Other: Voiding Method Indwelling Catheter Indwelling Catheter Indwelling Catheter # Bowel Movements 1 1 - Exam GENERAL DESCRIPTION: An elderly male lying in bed in no distress HEENT: Previous track side erythema has significantly decreased no drainage RESPIRATORY SYSTEM: Unlabored breathing , decreased breath sounds at bases HEART: S1 S2 regular rate and rhythm , ABDOMEN: Soft , no tenderness EXTREMITIES: No edema feet - Labs CBC & Chem 7: 03/08/23 07:00 03/08/23 07:00 Labs: Abnormal Lab Results - Last 24 Hours (Table) 03/07/23 03/07/23 03/08/23 Range/Units 16:54 20:38 07:00 RBC 4.22 L (4.30-5.90) m/uL Hgb 12.7 L (13.0-17.5) gm/dL Hct 38.9 L (39.0-53.0) % Chloride (98-107) mmol/L Creatinine (0.66-1.25) mg/dL Glucose (74-99) mg/dL POC Glucose (mg/dL) 163 H 154 H (70-110) mg/dL 03/08/23 03/08/23 03/08/23 Range/Units 07:00 07:29 11:06 RBC (4.30-5.90) m/uL Hgb (13.0-17.5) gm/dL Hct (39.0-53.0) % Chloride 109 H (98-107) mmol/L Creatinine 0.59 L (0.66-1.25) mg/dL Glucose 53 L (74-99) mg/dL POC Glucose (mg/dL) 57 L 131 H (70-110) mg/dL Assessment and Plan (1) UTI (urinary tract infection) due to urinary indwelling catheter Current Visit: Yes Status: Acute Code(s): T83.511A - I/I REACT D/T INDWELLI NG URETHRAL CATHETER, INIT; N39.0 - URINARY TRACT INFECTION, SITE NOT SPECIFIED SNOMED Code(s): 201443778 Plan: 1patient with a chronic indwelling Dillard catheter that has been inserted for urinary retention and was noticed to have a significantly cloudiness with a UA now showing positive leukocyte esterase and WBC with concern for possible catheter associated UTI versus Dillard colonization, the patient Dillard has already been changed however the urine was obtained from the old catheter RN has been instructed to obtain UA from the new catheter 2- the patient urine cultures grow Serratia marcescens that is sensitive to ceftriaxone, patient underlying UTI has been adequately treated and the patient will be monitored closely off antibiotic therapy Time with Patient: Less than 30
--- NOTE | 2023-03-08 16:01 | PN ---
PROGRESS NOTE DATE OF SERVICE: 03/07/2023 SUBJECTIVE: A 67-year-old white male, who is alert, giving appropriate answers. He can move 4 extremities, otherwise weak on the right side. Waiting for apparently him to get Medicaid to get a custodial placement. He is unable to walk by himself. He does get up in the chair. OBJECTIVE: VITAL SIGNS: Temperature is 97.9, blood pressure 140s/60s, pulse 66 to 70, respiratory rate 18, O2 saturation 98% on room air. CARDIOVASCULAR: S1, S2. LUNGS: Decreased breath sounds. EXTREMITIES: Show right hand maybe 30% range of motion and right leg about the same. Left leg, full range of motion. ASSESSMENT: He had a prior stroke. This is chronic for him. Continue with current treatments for stroke and right-sided weakness, anxiety medicines, hypertension medicines, chronic obstructive pulmonary disease and diabetes mellitus medications, Cymbalta for depression, Lofibra for cholesterol, pain control, diabetes control, and diastolic heart failure control. Please see further orders. Benign prostatic hypertrophy and urinary retention, on Flomax. Urology seen for urinary retention. Prognosis is guarded. MMODL / IJN: [id number] /
[2023-03-08 17:18] LABS: Glucose,Whole Blood 208 mg/dL (70-110)
[2023-03-08] MEDS: ALPRAZolam 0.25 MG TAB PO PRN (19:49)
[2023-03-08] MEDS: HYDROcodone/APAP 5-325MG 1 EACH TAB PO PRN (19:49)
[2023-03-08] MEDS: ATORVASTATIN 40 MG TAB PO SCH (19:49)
[2023-03-08 20:19] LABS: Glucose,Whole Blood 149 mg/dL (70-110)
[2023-03-08] MEDS: INSULIN DETEMIR (LEVEMIR) 100 UNIT/ML SYR SQ SCH (21:05)
[2023-03-09 07:08] LABS: Glucose,Whole Blood 101 mg/dL (70-110)
[2023-03-09] MEDS: INSULIN ASPART (NovoLOG) 100 UNIT/ML VIAL SQ SCH ×3 (08:08→18:19)
[2023-03-09] MEDS: HEPARIN SODIUM,PORCINE/PF 5,000 UNIT/0.5 ML SYRINGE SQ SCH ×3 (09:25→23:53)
[2023-03-09] MEDS: amLODIPine 10 MG TAB PO SCH (09:26)
[2023-03-09] MEDS: LOSARTAN 25 MG TAB PO SCH (09:26)
[2023-03-09] MEDS: METOPROLOL TARTRATE 50 MG TAB PO SCH ×2 (09:26→20:36)
[2023-03-09] MEDS: DULoxetine HCL 60 MG CAPSULE.DR PO SCH (09:26)
[2023-03-09] MEDS: POTASSIUM CHLORIDE ER 20 MEQ TAB.ER PO SCH (09:26)
[2023-03-09] MEDS: buPROPion SR 100 MG TABLET.ER PO SCH (09:26)
[2023-03-09] MEDS: TAMSULOSIN 0.4 MG CAP.ER.24H PO SCH (09:26)
[2023-03-09] MEDS: FENOFIBRATE 54 MG TAB PO SCH (09:26)
[2023-03-09] MEDS: MULTIVITAMINS, THERA 1 EACH TAB PO SCH (09:26)
[2023-03-09] MEDS: ASPIRIN 81 MG PO SCH (09:26)
[2023-03-09] MEDS: DOCUSATE 100 MG CAP PO SCH ×2 (09:26→20:36)
[2023-03-09] MEDS: BUDESONIDE 0.5 MG/2 ML NEBU INHALATION SCH ×2 (09:34→20:15)
[2023-03-09] MEDS: IPRATROPIUM-ALBUTEROL 3 ML NEB INHALATION SCH ×4 (09:34→20:15)
[2023-03-09 11:15] LABS: Glucose,Whole Blood 127 mg/dL (70-110)
[2023-03-09] MEDS: SODIUM CHLORIDE 0.9% 1,000 ML IV SCH ×2 (13:26→23:54)
[2023-03-09 17:08] LABS: Glucose,Whole Blood 188 mg/dL (70-110)
[2023-03-09] MEDS: ALPRAZolam 0.25 MG TAB PO PRN (17:37)
[2023-03-09 20:34] LABS: Glucose,Whole Blood 127 mg/dL (70-110)
[2023-03-09] MEDS: HYDROcodone/APAP 5-325MG 1 EACH TAB PO PRN (20:36)
[2023-03-09] MEDS: ATORVASTATIN 40 MG TAB PO SCH (20:36)
--- NOTE | 2023-03-09 22:46 | P.PN ---
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 history of this very failure requiring tracheostomy subsequently worsened has been brought in the hospital for generalized weakness and debility and concern for possible cellulitis to the previous trach site patient did have a CT of the soft tissue of the neck did not show any evidence of abscess, patient has been adequately treated for cellulitis of the neck patient is currently in the hospital for 40+ days and is awaiting for placement patient did have a indwelling Dillard catheter and was noticed to have significant cloudiness of urine UA was obtained which was positive for the catheter has been changed any infectious disease was asked for REevaluation On today's evaluation that is 03/09/2023, the patient continues to be afebrile, the patient is breathing comfortably on room air, the patient denies chest pain shortness of breath or cough, the patient denies nausea no vomiting no abdominal pain or diarrhea, patient is feeling better no new symptoms Objective - Vital Signs Vital signs: Vital Signs Temp 97.4 F L 03/09/23 11:11 Pulse 65 03/09/23 12:51 Resp 16 03/09/23 11:11 BP 152/75 03/09/23 11:11 Pulse Ox 98 03/09/23 11:11 FiO2 21 03/06/23 07:34 Intake & Output 03/08/23 03/09/23 03/09/23 18:59 06:59 18:59 Output Total 1050 1000 1400 Balance -1050 -1000 -1400 Weight 80 kg Output: Urine 1050 1000 1400 Other: Voiding Method Indwelling Catheter Indwelling Catheter Indwelling Catheter # Bowel Movements 1 0 - Exam GENERAL DESCRIPTION: An elderly male lying in bed in no distress HEENT: Previous track side erythema has significantly decreased no drainage RESPIRATORY SYSTEM: Unlabored breathing , decreased breath sounds at bases HEART: S1 S2 regular rate and rhythm , ABDOMEN: Soft , no tenderness EXTREMITIES: No edema feet - Labs CBC & Chem 7: 03/08/23 07:00 03/08/23 07:00 Labs: Abnormal Lab Results - Last 24 Hours (Table) 03/08/23 03/08/23 03/09/23 Range/Units 17:17 20:18 11:13 POC Glucose (mg/dL) 208 H 149 H 127 H (70-110) mg/dL Assessment and Plan (1) UTI (urinary tract infection) due to urinary indwelling catheter Current Visit: Yes Status: Acute Code(s): T83.511A - I/I REACT D/T INDWELLING URETHRAL CATHETER, INIT; N39.0 - URINARY TRACT INFECTION, SITE NOT SPECIFIED SNOMED Code(s): 704052242 Plan: 1patient with a chronic indwelling Dillard catheter that has been inserted for urinary retention and was noticed to have a significantly cloudiness with a UA now showing positive leukocyte esterase and WBC with concern for possible catheter associated UTI versus Dillard colonization, the patient Dillard has already been changed however the urine was obtained from the old catheter RN has been instructed to obtain UA from the new catheter 2- the patient urine cultures grow Serratia marcescens that is sensitive to ceftriaxone, patient has received adequate antibiotic for his UTI currently doing well off antibiotic therapy infectious disease will sign off. Please call back if any question regarding infectious disease care Time with Patient: Less than 30
[2023-03-09] MEDS: INSULIN DETEMIR (LEVEMIR) 100 UNIT/ML SYR SQ SCH (23:54)
[2023-03-10] MEDS: ALPRAZolam 0.25 MG TAB PO PRN ×3 (01:16→23:22)
[2023-03-10] MEDS: IPRATROPIUM-ALBUTEROL 3 ML NEB INHALATION SCH ×4 (07:53→20:04)
[2023-03-10] MEDS: BUDESONIDE 0.5 MG/2 ML NEBU INHALATION SCH ×2 (07:53→20:04)
[2023-03-10 08:06] LABS: Glucose,Whole Blood 162 mg/dL (70-110)
[2023-03-10] MEDS: INSULIN ASPART (NovoLOG) 100 UNIT/ML VIAL SQ SCH ×3 (10:03→17:47)
[2023-03-10] MEDS: HYDROcodone/APAP 5-325MG 1 EACH TAB PO PRN ×2 (10:04→20:14)
[2023-03-10] MEDS: HEPARIN SODIUM,PORCINE/PF 5,000 UNIT/0.5 ML SYRINGE SQ SCH ×3 (10:04→23:22)
[2023-03-10] MEDS: DULoxetine HCL 60 MG CAPSULE.DR PO SCH (10:05)
[2023-03-10] MEDS: amLODIPine 10 MG TAB PO SCH (10:05)
[2023-03-10] MEDS: MULTIVITAMINS, THERA 1 EACH TAB PO SCH (10:05)
[2023-03-10] MEDS: DOCUSATE 100 MG CAP PO SCH ×2 (10:05→20:12)
[2023-03-10] MEDS: POTASSIUM CHLORIDE ER 20 MEQ TAB.ER PO SCH (10:05)
[2023-03-10] MEDS: TAMSULOSIN 0.4 MG CAP.ER.24H PO SCH (10:05)
[2023-03-10] MEDS: ASPIRIN 81 MG PO SCH (10:06)
[2023-03-10] MEDS: FENOFIBRATE 54 MG TAB PO SCH (10:06)
[2023-03-10] MEDS: METOPROLOL TARTRATE 50 MG TAB PO SCH ×2 (10:06→20:13)
[2023-03-10] MEDS: buPROPion SR 100 MG TABLET.ER PO SCH (10:06)
[2023-03-10] MEDS: LOSARTAN 25 MG TAB PO SCH (10:06)
[2023-03-10] MEDS: SODIUM CHLORIDE 0.9% 1,000 ML IV SCH ×2 (10:57→18:15)
[2023-03-10 11:18] LABS: Glucose,Whole Blood 205 mg/dL (70-110)
--- NOTE | 2023-03-10 12:46 | PE ---
EXAMINATION TYPE: PET CT fusion skull to thigh DATE OF EXAM: 03/10/2023 CLINICAL INDICATION:Male, 67 years old with history of C81.98; TECHNIQUE: Following the intravenous administration of 11.0 mCi of F-18 FDG, whole body images are performed from the skull base to the midthigh. Images are reviewed on the computer in the coronal, a xial, and sagittal planes. Reconstructed rotating images are created on independent workstation and reviewed on the computer. A non-contrast CT is performed in conjunction with the PET scan. Glucose level 150 mg/dL COMPARISON: CT 02/18/2023, 01/20/2023,, PET/CT None, FINDINGS: Mediastinal SUV mean is 1.8. Hepatic parenchyma SUV mean is 2.7. SKULL BASE AND NECK: Multiple FDG avid lymph nodes are seen within the neck includes: * Level 5B max SUV 4.0 measuring 16 mm in short axis similar which may be fractionally increase in s ize from prior CT neck 01/20/2023 * Level 2 Max SUV 5.6 measuring 1.5 cm in short axis. This may also be fractionally increase in size from prior CT 01/20/2023. Additional smaller mildly FDG avid lymph nodes are also seen throughout left neck. Located on levels to, 5a, 5b and 3. Mild FDG activity within the floor the mouth predominantly in the right near some streak artifact fro m patient dental hardware. Max SUV 4.9. CHEST, MEDIASTINUM, AND HILAR REGION: No suspicious radiotracer activity. ABDOMEN AND PELVIS: Asymmetric uptake within the right renal collecting system in the right renal sin us. Nonspecific focus of FDG activity near the anterior abdominal wall on the right near the cecum max GAINES V 5.0 which may have some misregistration artifact. OSSEOUS STRUCTURES: No suspicious radiotracer activity. OTHER CT: Degeneration changes of the shoulders. Intracranial atherosclerosis. Trace left mastoid air cell effusion. Focus of gas within the left neck. Atherosclerosis of the carotid bifurcations. Thyro id nodules. Atherosclerosis of the coronary arteries and aortic valve leaflets. Small hiatal hernia. Cholelithiasis. Nonobstructing bilateral renal calculi. Large stool burden throughout the colon. Larg e fecaloma within the rectum measuring up to 8.2 cm. Bilateral fat-containing inguinal hernias. Dillard catheter in place the bladder is nondistended. Small bilateral hydroceles. Bilateral gynecomastia ch anges. IMPRESSION: 1. Multiple left-sided neck lymph nodes which are enlarged with increased metabolic activity, the la rgest lymph nodes appear fractionally increase in size from prior CT. Findings compatible with malign isabel. 2. Focal uptake near the wall of the cecum anteriorly which is indeterminate. Consider attention on follow-up imaging and possibly colonoscopy if not recently performed.
--- NOTE | 2023-03-10 13:37 | P.PN ---
Subjective Progress Note Date: 03/09/23 Principal diagnosis: Failure to thrive stage IA NLPHL of the left cervical neck CVA with right hemiparesis right upper extremity more than lower COPD Generalized anxiety disorder Type 2 diabetes mellitus Hypertension hypertensive cardiovascular disease BPH 03/09/2023, patient seen eval examined during the rounds labs reviewed medications reviewed, Discussed with the staff, denies any chest pain or shortness of breath, remains afebrile breathing comfortably, patient is waiting for legal guardianship. Sugars are stable 127 this morning 02/26/2023, patient seen eval reexamined during the rounds, overall no significant change, patient continued to have a free right upper extremity power 2-3 however can lift right lower extremity and use a cavity is speech is intact, swelling in the left lateral neck not much change, discussed with the RN will continue PT OT and instructed to request of reevaluation consultation if it's not happening Feb 25 2023, patient seen and evaluated examined during the rounds awake and alert. Complains of present, still waiting for placement, hematology oncology and evaluated the patient for left neck lump with a biopsy positive for stage IA NLPHL of the left cervical neck, plans are underway for PET/CT for restaging followed by a course of ISRT to 30 Gy in 15 fractions. She remains afebrile hemodynamic status stable oxygen saturation 98% on room air labs not done but sugar is 122 Objective - Vital Signs Vital signs: Vital Signs Temp 97.6 F 03/09/23 07:03 Pulse 67 03/09/23 07:03 Resp 16 03/09/23 07:03 BP 162/79 03/09/23 07:03 Pulse Ox 98 03/09/23 07:03 FiO2 21 03/06/23 07:34 Intake & Output 03/08/23 03/09/23 03/09/23 18:59 06:59 18:59 Output Total 1050 1000 Balance -1050 -1000 Weight 80 kg Output: Urine 1050 1000 Other: Voiding Method Indwelling Catheter Indwelling Catheter # Bowel Movements 1 0 - Exam - Constitutional General appearance: Present: average body habitus, cooperative - EENT ENT: Present: normal oropharynx Ears: bilateral: normal - Neck Neck: Present: normal ROM Carotids: bilateral: upstroke normal, large swelling on the left side of the lateral neck not much changed - Respiratory Respiratory: bilateral: CTA - Cardiovascular Rhythm: regular Heart sounds: normal: S1, S2 - Gastrointestinal General gastrointestinal: Present: soft - Neurologic Neurologic: Present: CNII-XII intact - Musculoskeletal Musculoskeletal: Present: generalized weakness, right sided weakness - Psychiatric Psychiatric: Present: A&O x's 3, appropriate affect, intact judgment & insight - Labs CBC & Chem 7: 03/08/23 07:00 03/08/23 07:00 Labs: Abnormal Lab Results - Last 24 Hours (Table) 03/08/23 03/08/23 03/08/23 Range/Units 11:06 17:17 20:18 POC Glucose (mg/dL) 131 H 208 H 149 H (70-110) mg/dL Assessment and Plan Assessment: Serratia urinary tract infection status post antibiotic therapy with Rocephin being monitor observe off of antibiotics Failure to thrive 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
--- NOTE | 2023-03-10 13:40 | P.PN ---
Subjective Progress Note Date: 03/10/23 Principal diagnosis: Failure to thrive stage IA NLPHL of the left cervical neck CVA with right hemiparesis right upper extremity more than lower COPD Generalized anxiety disorder Type 2 diabetes mellitus Hypertension hypertensive cardiovascular disease BPH 03/10/2023, patient seen eval examined during rounds labs reviewed medications reviewed, discussed with infectious disease services overall remains stable patient continued to monitor observe off of antibiotics surgery and signed off as the swelling likely is a lymphocele 03/09/2023, patient seen eval examined during the rounds labs reviewed medications reviewed, Discussed with the staff, denies any chest pain or shortness of breath, remains afebrile breathing comfortably, patient is waiting for legal guardianship. Sugars are stable 127 this morning 02/26/2023, patient seen eval reexamined during the rounds, overall no significant change, patient continued to have a free right upper extremity power 2-3 however can lift right lower extremity and use a cavity is speech is intact, swelling in the left lateral neck not much change, discussed with the RN will continue PT OT and instructed to request of reevaluation consultation if it's not happening Feb 25 2023, patient seen and evaluated examined during the rounds awake and alert. Complains of present, still waiting for placement, hematology oncology and evaluated the patient for left neck lump with a biopsy positive for stage IA NLPHL of the left cervical neck, plans are underway for PET/CT for restaging followed by a course of ISRT to 30 Gy in 15 fractions. She remains afebrile hemodynamic status stable oxygen saturation 98% on room air labs not done but sugar is 122 Objective - Vital Signs Vital signs: Vital Signs Temp 97.7 F 03/10/23 12:29 Pulse 73 03/10/23 12:29 Resp 18 03/10/23 12:29 BP 150/81 03/10/23 12:29 Pulse Ox 98 03/10/23 12:29 FiO2 21 03/06/23 07:34 Intake & Output 03/09/23 03/10/23 03/10/23 18:59 06:59 18:59 Intake Total 240 Output Total 2400 1300 425 Balance -3649 -1300 425 Intake: Oral 240 Output: Urine 2400 1300 425 Other: Voiding Method Indwelling Catheter Indwelling Catheter Indwelling Catheter # Bowel Movements 1 - Exam - Constitutional General appearance: Present: average body habitus, cooperative - EENT ENT: Present: normal oropharynx Ears: bilateral: normal - Neck Neck: Present: normal ROM Carotids: bilateral: upstroke normal, large swelling on the left side of the lateral neck not much changed - Respiratory Respiratory: bilateral: CTA - Cardiovascular Rhythm: regular Heart sounds: normal: S1, S2 - Gastrointestinal General gastrointestinal: Present: soft - Neurologic Neurologic: Present: CNII-XII intact - Musculoskeletal Musculoskeletal: Present: generalized weakness, right sided weakness - Psychiatric Psychiatric: Present: A&O x's 3, appropriate affect, intact judgment & insight - Labs CBC & Chem 7: 03/08/23 07:00 03/08/23 07:00 Labs: Abnormal Lab Results - Last 24 Hours (Table) 03/09/23 03/09/23 03/10/23 Range/Units 17:06 20:33 08:05 POC Glucose (mg/dL) 188 H 127 H 162 H (70-110) mg/dL 03/10/23 Range/Units 11:16 POC Glucose (mg/dL) 205 H (70-110) mg/dL Assessment and Plan Assessment: Serratia urinary tract infection status post antibiotic therapy with Rocephin being monitor observe off of antibiotics Failure to thrive 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
[2023-03-10 17:15] LABS: Glucose,Whole Blood 157 mg/dL (70-110)
[2023-03-10] MEDS: INSULIN DETEMIR (LEVEMIR) 100 UNIT/ML SYR SQ SCH (20:13)
[2023-03-10] MEDS: ATORVASTATIN 40 MG TAB PO SCH (20:13)
[2023-03-10 20:47] LABS: Glucose,Whole Blood 275 mg/dL (70-110)
[2023-03-11 07:10] LABS: Glucose,Whole Blood 99 mg/dL (70-110)
[2023-03-11] MEDS: INSULIN ASPART (NovoLOG) 100 UNIT/ML VIAL SQ SCH ×3 (07:56→17:50)
[2023-03-11] MEDS: DOCUSATE 100 MG CAP PO SCH ×2 (09:11→20:41)
[2023-03-11] MEDS: LOSARTAN 25 MG TAB PO SCH (09:11)
[2023-03-11] MEDS: DULoxetine HCL 60 MG CAPSULE.DR PO SCH (09:11)
[2023-03-11] MEDS: MULTIVITAMINS, THERA 1 EACH TAB PO SCH (09:11)
[2023-03-11] MEDS: amLODIPine 10 MG TAB PO SCH (09:11)
[2023-03-11] MEDS: ASPIRIN 81 MG PO SCH (09:11)
[2023-03-11] MEDS: POTASSIUM CHLORIDE ER 20 MEQ TAB.ER PO SCH (09:11)
[2023-03-11] MEDS: TAMSULOSIN 0.4 MG CAP.ER.24H PO SCH (09:11)
[2023-03-11] MEDS: METOPROLOL TARTRATE 50 MG TAB PO SCH ×2 (09:11→20:41)
[2023-03-11] MEDS: SODIUM CHLORIDE 0.9% 1,000 ML IV SCH ×3 (09:12→23:13)
[2023-03-11] MEDS: HEPARIN SODIUM,PORCINE/PF 5,000 UNIT/0.5 ML SYRINGE SQ SCH ×3 (09:12→23:12)
[2023-03-11] MEDS: buPROPion SR 100 MG TABLET.ER PO SCH (09:13)
[2023-03-11] MEDS: FENOFIBRATE 54 MG TAB PO SCH (09:13)
[2023-03-11] MEDS: BUDESONIDE 0.5 MG/2 ML NEBU INHALATION SCH ×2 (09:30→20:22)
[2023-03-11] MEDS: IPRATROPIUM-ALBUTEROL 3 ML NEB INHALATION SCH ×4 (09:30→20:22)
--- NOTE | 2023-03-11 10:22 | P.PN ---
Subjective Progress Note Date: 03/11/23 Principal diagnosis: Failure to thrive stage IA NLPHL of the left cervical neck CVA with right hemiparesis right upper extremity more than lower COPD Generalized anxiety disorder Type 2 diabetes mellitus Hypertension hypertensive cardiovascular disease BPH March 11 2023, patient seen and evaluated examined during rounds breathing comfortably denies any chest pain I waiting for legal guardianship and placement, PET scan done yesterday March 10 multiple left-sided neck lymph nodes are enlarged with increase in metabolic activity largest node appears to be fraction increased from the prior computed tomography scan compatible with malignancy. Focal uptake wall of cecum was noted anteriorly which is indeterminate. Colonoscopy has been recommended. We will consult general surgery as well as awaiting further recommendation from oncology 03/10/2023, patient seen eval examined during rounds labs reviewed medications reviewed, discussed with infectious disease services overall remains stable patient continued to monitor observe off of antibiotics surgery and signed off as the swelling likely is a lymphocele 03/09/2023, patient seen eval examined during the rounds labs reviewed medications reviewed, Discussed with the staff, denies any chest pain or shortness of breath, remains afebrile breathing comfortably, patient is waiting for legal guardianship. Sugars are stable 127 this morning 02/26/2023, patient seen eval reexamined during the rounds, overall no s ignificant change, patient continued to have a free right upper extremity power 2-3 however can lift right lower extremity and use a cavity is speech is intact, swelling in the left lateral neck not much change, discussed with the RN will continue PT OT and instructed to request of reevaluation consultation if it's not happening Feb 25 2023, patient seen and evaluated examined during the rounds awake and alert. Complains of present, still waiting for placement, hematology oncology and evaluated the patient for left neck lump with a biopsy positive for stage IA NLPHL of the left cervical neck, plans are underway for PET/CT for restaging followed by a course of ISRT to 30 Gy in 15 fractions. She remains afebrile hemodynamic status stable oxygen saturation 98% on room air labs not done but sugar is 122 Objective - Vital Signs Vital signs: Vital Signs Temp 97.6 F 03/11/23 07:10 Pulse 76 03/11/23 07:10 Resp 18 03/11/23 07:10 BP 147/81 03/11/23 07:10 Pulse Ox 95 03/11/23 07:10 FiO2 21 03/06/23 07:34 Intake & Output 03/10/23 03/11/23 03/11/23 18:59 06:59 18:59 Output Total 675 1999 1200 Balance -67 -1999 -1200 Output: Urine 675 1999 1200 Other: Voiding Method Indwelling Catheter Indwelling Catheter # Bowel Movements 1 - Exam - Constitutional General appearance: Present: average body habitus, cooperative - EENT ENT: Present: normal oropharynx Ears: bilateral: normal - Neck Neck: Present: normal ROM Carotids: bilateral: upstroke normal, large swelling on the left side of the lateral neck not much changed - Respiratory Respiratory: bilateral: CTA - Cardiovascular Rhythm: regular Heart sounds: normal: S1, S2 - Gastrointestinal General gastrointestinal: Present: soft - Neurologic Neurologic: Present: CNII-XII intact - Musculoskeletal Musculoskeletal: Present: generalized weakness, right sided weakness - Psychiatric Psychiatric: Present: A&O x's 3, appropriate affect, intact judgment & insight - Labs CBC & Chem 7: 03/08/23 07:00 03/08/23 07:00 Labs: Abnormal Lab Results - Last 24 Hours (Table) 03/10/23 03/10/23 03/10/23 Range/Units 11:16 17:14 20:46 POC Glucose (mg/dL) 205 H 157 H 275 H (70-110) mg/dL Assessment and Plan Assessment: Lymphadenopathy and metastatic process highly suggestive of on PET scan due to lymphoma, will reconsult hematology oncology Cecal mass, indeterminate on PET scan we'll consult surgery for colonoscopy Serratia urinary tract infection status post antibiotic therapy with Rocephin being monitor observe off of antibiotics Failure to thrive stage IA NLPHL of the left cervical neck CVA with right hemiparesis right upper extremity more than lower, COPD Generalized anxiety disorder Type 2 diabetes mellitus Hypertension hypertensive cardiovascular disease BPH Plan: Reconsult hematology oncology, consult general surgery for evaluation for colonoscopy, continue evaluation for Placement, continue PT OT, continue antihypertensive agent along with insulin, nutritional support, further evaluation XRT and staging as outpatient Time with Patient: Greater than 30
[2023-03-11 11:09] LABS: Glucose,Whole Blood 123 mg/dL (70-110)
[2023-03-11] MEDS: ALPRAZolam 0.25 MG TAB PO PRN ×2 (16:46→20:41)
[2023-03-11 17:20] LABS: Glucose,Whole Blood 182 mg/dL (70-110)
[2023-03-11 20:26] LABS: Glucose,Whole Blood 120 mg/dL (70-110)
[2023-03-11] MEDS: ATORVASTATIN 40 MG TAB PO SCH (20:41)
[2023-03-11] MEDS: INSULIN DETEMIR (LEVEMIR) 100 UNIT/ML SYR SQ SCH (21:32)
[2023-03-12 07:07] LABS: Glucose,Whole Blood 111 mg/dL (70-110)
[2023-03-12] MEDS: INSULIN ASPART (NovoLOG) 100 UNIT/ML VIAL SQ SCH ×3 (07:45→18:21)
[2023-03-12] MEDS: HEPARIN SODIUM,PORCINE/PF 5,000 UNIT/0.5 ML SYRINGE SQ SCH ×2 (08:33→16:58)
[2023-03-12] MEDS: amLODIPine 10 MG TAB PO SCH (08:33)
[2023-03-12] MEDS: ASPIRIN 81 MG PO SCH (08:34)
[2023-03-12] MEDS: LOSARTAN 25 MG TAB PO SCH (08:34)
[2023-03-12] MEDS: DULoxetine HCL 60 MG CAPSULE.DR PO SCH (08:34)
[2023-03-12] MEDS: FENOFIBRATE 54 MG TAB PO SCH (08:34)
[2023-03-12] MEDS: DOCUSATE 100 MG CAP PO SCH ×2 (08:34→21:50)
[2023-03-12] MEDS: buPROPion SR 100 MG TABLET.ER PO SCH (08:34)
[2023-03-12] MEDS: METOPROLOL TARTRATE 50 MG TAB PO SCH ×2 (08:35→21:50)
[2023-03-12] MEDS: TAMSULOSIN 0.4 MG CAP.ER.24H PO SCH (08:35)
[2023-03-12] MEDS: MULTIVITAMINS, THERA 1 EACH TAB PO SCH (08:35)
[2023-03-12] MEDS: POTASSIUM CHLORIDE ER 20 MEQ TAB.ER PO SCH (08:35)
[2023-03-12] MEDS: BUDESONIDE 0.5 MG/2 ML NEBU INHALATION SCH ×2 (09:36→20:33)
[2023-03-12] MEDS: IPRATROPIUM-ALBUTEROL 3 ML NEB INHALATION SCH ×4 (09:36→20:33)
--- NOTE | 2023-03-12 09:40 | P.GSCN ---
History of Present Illness Consult date: 03/12/23 Reason for Consult: Colonoscopy, lymphoma History of present illness: This a 67-year-old male with multiple medical problems. Patient previously diagnosed lymphoma. I've asked see the patient regarding possible colonoscopy. Past Medical History Past Medical History: Asthma, Coronary Artery Disease (CAD), Heart Failure, CVA/TIA, Diabetes Mellitus, Hypertension, Myocardial Infarction (UT), Osteoarthr itis (OA) Additional Past Medical History / Comment(s): HX OF BACK SURGERY WITH BACK PAIN, DIABETIC NEUROPATHY, HEART MURMUR., KERATOCONUS., STOOL TEST POSITIVE ., ECZEMA Last Myocardial Infarction Date:: 08/2022 History of Any Multi-Drug Resistant Organisms: C-DIFF Year Discovered:: 12/19/22 MDRO Source:: stool Past Surgical History: Back Surgery, Heart Catheterization With Stent Additional Past Surgical History / Comment(s): BACK SURGERY WITH DISC REMOVED AND FUSION., VASECTOMY, LEFT GREAT TOE. peg tube, tracheostomy. Past Anesthesia/Blood Transfusion Reactions: No Reported Reaction Date of Last Stent Placement:: 08/2022 Past Psychological History: Depression Smoking Status: Never smoker Past Alcohol Use History: None Reported Past Drug Use History: None Reported - Past Family History Mother Family Medical History: No Reported History Additional Family Medical History / Comment(s): of old age Father Additional Family Medical History / Comment(s): of old age Medications and Allergies Home Medications Medication Instructions Recorded Confirmed Type Atorvastatin [Lipitor] 40 mg PO HS 08/13/22 01/20/23 History Aspirin 81 mg PO DAILY tab 08/30/22 01/20/23 Rx Clopidogrel [Plavix] 75 mg PO DAILY 10/01/22 01/20/23 History Losartan [Cozaar] 25 mg PO DAILY 10/01/22 01/20/23 History Multivitamins, Thera [Multivitamin 1 tab PO DAILY 12/09/22 01/20/23 History (formulary)] Fenofibrate 54 mg PO DAILY 12/18/22 01/20/23 History DULoxetine HCL [Cymbalta] 60 mg PO DAILY 01/09/23 01/20/23 History Fluticasone Propion/Salmeterol 1 puff INHALATION RT-BID 01/09/23 01/20/23 Hist ory [[place] 500-50 Inhub] Metoprolol Tartrate [Lopressor] 50 mg PO BID 01/09/23 01/20/23 History amLODIPine [Norvasc] 10 mg PO DAILY 01/09/23 01/20/23 History HYDROcodone/APAP 5-325MG [[place] 1 each PO Q6HR PRN #6 tab 01/12/23 01/20/23 Rx 5-325] Budesonide [Pulmicort] 0.5 mg INHALATION RT-BID 30 Days 01/25/23 Rx #60 ml Doxycycline [Vibramycin] 100 mg PO BID 7 Days #14 cap 01/25/23 Rx Ipratropium-Albuterol Nebulize 3 ml INHALATION RT-QID 30 Days 01/25/23 Rx [Duoneb 0.5 mg-3 mg/3 ml Soln] #120 each Nystatin 100,000Unit/gm Cream 1 applic TOPICAL BID 30 Days #30 01/25/23 Rx [Mycostatin Cream] each Potassium Chloride ER [K-Dur 20] 20 meq PO DAILY 30 Days #30 tab 01/25/23 Rx buPROPion SR [Wellbutrin SR] 100 mg PO DAILY 30 Days #30 tab 01/25/23 Rx ALPRAZolam [Xanax] 0.25 mg PO TID PRN tab 02/20/23 Rx Docusate [Colace] 100 mg PO BID cap 02/20/23 Rx Insulin Detemir (Levemir) [Levemir] 16 unit SQ HS each 02/20/23 Rx Tamsulosin [Flomax] 0.4 mg PO DAILY cap 02/20/23 Rx Allergies Allergy/AdvReac Type Severity Reaction Status Date / Time Penicillins Allergy Unknown Verified 01/20/23 07:56 Surgical - Exam Vital Signs Temp Pulse Resp BP Pulse Ox 98.6 F 110 H 22 140/83 98 01/19/23 21:15 01/19/23 21:15 01/19/23 21:15 01/19/23 21:15 01/19/23 21:15 - General no distress - Eyes PERRL - ENT normal pinna - Neck no masses - Cardiovascular Rhythm: regular - Abdomen Abdomen: soft, non tender Results - Labs 03/08/23 07:00 03/08/23 07:00 Abnormal Lab Results - Last 24 Hours (Table) 03/11/23 03/11/23 03/11/23 Range/Units 11:07 17:18 20:24 POC Glucose (mg/dL) 123 H 182 H 120 H (70-110) mg/dL 03/12/23 Range/Units 07:06 POC Glucose (mg/dL) 111 H (70-110) mg/dL Assessment and Plan Assessment: 67-year-old male with multiple medical proximal. Patient will be considered for colonoscopy once he is clinically stable. This can be done as outpatient.
--- NOTE | 2023-03-12 10:20 | P.PN ---
Subjective Progress Note Date: 03/11/23 Principal diagnosis: cervical lymphadenopathy At today's visit patient is resting comfortably in bed. Patient denies neck pain and dysphagia. He is tolerating oral intake well. Social work is having difficulties finding patient placement due to difficult social dynamics. 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 PET results discussed in detail with patient Objective - Vital Signs Vital signs: Vital Signs Temp 97.6 F 03/11/23 11:27 Pulse 67 03/11/23 11:27 Resp 16 03/11/23 11:27 BP 121/71 03/11/23 11:27 Pulse Ox 96 03/11/23 11:27 FiO2 21 03/06/23 07:34 Intake & Output 03/10/23 03/11/23 03/11/23 18:59 06:59 18:59 Output Total 675 2000 1200 Balance -675 -1999 -1200 Output: Urine 675 1999 1200 Other: Voiding Method Indwelling Catheter Indwelling Catheter Indwelling Catheter # Bowel Movements 1 - Constitutional General appearance: Present: average body habitus, no acute distress - EENT Eyes: Present: anicteric sclerae, EOMI ENT: Present: hearing grossly normal - Neck Details: large left sided neck mass - Respiratory Details: breathing is even and unlabored - Cardiovascular Details: skin is warm and dry - Integumentary Integumentary: Absent: cyanotic, rash - Musculoskeletal Musculoskeletal: Present: generalized weakness - Psychiatric Psychiatric: Present: A&O x's 3, appropriate affect, intact judgment & insight - Labs CBC & Chem 7: 03/08/23 07:00 03/08/23 07:00 Labs: Abnormal Lab Results - Last 24 Hours (Table) 03/10/23 03/10/23 03/11/23 Range/Units 17:14 20:46 11:07 POC Glucose (mg/dL) 157 H 275 H 123 H (70-110) mg/dL Assessment and Plan (1) Lymphadenopathy, cervical Current Visit: Yes Status: Acute Priority: High Code(s): R59.0 - LOCALIZED ENLARGED LYMPH NODES SNOMED Code(s): 042121921 (2) Hodgkin lymphoma Current Visit: Yes Status: Acute Priority: High Code(s): C81.90 - HODGKIN LYMPHOMA, UNSPECIFIED, UNSPECIFIED SITE SNOMED Code(s): 691731145 Plan: Hodgkin Lymphoma: -S/P LN excision. Left cervical lymph node biopsy revealed atypical lymphoreticular infiltrate consistent with Hodgkin's lymphoma. Results have been discussed in detail with patient, with treatment plan and goals. -Discussed the need for further imaging/testing for staging. PET scan ordered -PET scan revealed multiple left-sided neck lymph nodes which are enlarged with increased metabolic activity. Focal uptake near the wall of the cecum anteriorly which is indeterminate, SUV 5.0. General surgery consulted for evaluation for colonoscopy. Discussed with patient that we will await surgery recommendations and biopsy if obtained. Based on findings, treatment may consist of radiation vs chemo and radiation. Rad/onc following, will discuss PET findings with Dr. Fam -Will plan for outpatient follow up upon discharge to discuss treatment options -Due to complex social dynamics/finances social work is having difficulties finding patient placement. 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 Patient updated on plan of care and PET results
[2023-03-12 11:08] LABS: Glucose,Whole Blood 423 mg/dL (70-110)
[2023-03-12 12:26] LABS: Glucose,Whole Blood 169 mg/dL (70-110)
[2023-03-12] MEDS: ALPRAZolam 0.25 MG TAB PO PRN (16:58)
[2023-03-12 17:09] LABS: Glucose,Whole Blood 164 mg/dL (70-110)
[2023-03-12 20:29] LABS: Glucose,Whole Blood 181 mg/dL (70-110)
[2023-03-12] MEDS: SODIUM CHLORIDE 0.9% 1,000 ML IV SCH (21:50)
[2023-03-12] MEDS: INSULIN DETEMIR (LEVEMIR) 100 UNIT/ML SYR SQ SCH (21:50)
[2023-03-12] MEDS: ATORVASTATIN 40 MG TAB PO SCH (21:50)
[2023-03-13] MEDS: HEPARIN SODIUM,PORCINE/PF 5,000 UNIT/0.5 ML SYRINGE SQ SCH ×3 (00:11→17:26)
[2023-03-13] MEDS: ALPRAZolam 0.25 MG TAB PO PRN ×2 (04:56→16:19)
[2023-03-13] MEDS: SODIUM CHLORIDE 0.9% 1,000 ML IV SCH ×2 (06:32→14:00)
[2023-03-13 07:15] LABS: Glucose,Whole Blood 92 mg/dL (70-110)
[2023-03-13] MEDS: INSULIN ASPART (NovoLOG) 100 UNIT/ML VIAL SQ SCH ×3 (08:30→17:28)
[2023-03-13] MEDS: BUDESONIDE 0.5 MG/2 ML NEBU INHALATION SCH ×2 (09:36→19:01)
[2023-03-13] MEDS: IPRATROPIUM-ALBUTEROL 3 ML NEB INHALATION SCH ×4 (09:36→19:01)
[2023-03-13] MEDS: LOSARTAN 25 MG TAB PO SCH (09:44)
[2023-03-13] MEDS: ASPIRIN 81 MG PO SCH (09:44)
[2023-03-13] MEDS: METOPROLOL TARTRATE 50 MG TAB PO SCH ×2 (09:44→21:27)
[2023-03-13] MEDS: TAMSULOSIN 0.4 MG CAP.ER.24H PO SCH (09:44)
[2023-03-13] MEDS: MULTIVITAMINS, THERA 1 EACH TAB PO SCH (09:44)
[2023-03-13] MEDS: amLODIPine 10 MG TAB PO SCH (09:44)
[2023-03-13] MEDS: DOCUSATE 100 MG CAP PO SCH ×2 (09:44→21:27)
[2023-03-13] MEDS: DULoxetine HCL 60 MG CAPSULE.DR PO SCH (09:44)
[2023-03-13] MEDS: POTASSIUM CHLORIDE ER 20 MEQ TAB.ER PO SCH (09:44)
[2023-03-13] MEDS: FENOFIBRATE 54 MG TAB PO SCH (09:45)
[2023-03-13] MEDS: buPROPion SR 100 MG TABLET.ER PO SCH (09:45)
[2023-03-13 11:37] LABS: Glucose,Whole Blood 135 mg/dL (70-110)
[2023-03-13] MEDS: HYDROcodone/APAP 5-325MG 1 EACH TAB PO PRN ×2 (11:54→21:26)
[2023-03-13 17:05] LABS: Glucose,Whole Blood 186 mg/dL (70-110)
[2023-03-13 20:36] LABS: Glucose,Whole Blood 215 mg/dL (70-110)
[2023-03-13] MEDS: ATORVASTATIN 40 MG TAB PO SCH (21:26)
[2023-03-13] MEDS: INSULIN DETEMIR (LEVEMIR) 100 UNIT/ML SYR SQ SCH (21:27)
[2023-03-14] MEDS: HEPARIN SODIUM,PORCINE/PF 5,000 UNIT/0.5 ML SYRINGE SQ SCH ×4 (00:04→23:49)
--- NOTE | 2023-03-14 01:50 | PN ---
PROGRESS NOTE SUBJECTIVE: Apparently, he is going to court to get divorce in 2 days and then he will be able to get Medicaid apparently to get a home placement. He is unable to find a place to leave from the hospital. OBJECTIVE: VITAL SIGNS: Temperature 97.9, pulse 80, respiratory rate 16 to 18, blood pressure is 118/69, saturation 99% on room air. CARDIOVASCULAR: S1, S2. LUNGS: Transmitted upper sounds. HEMATOLOGY: Negative Homans. PSYCH: Fair mood and affect. NEUROLOGIC: Alert and oriented x3. ASSESSMENT: Prior cerebrovascular accident, cellulitis of the trach area, chronic obstructive pulmonary disease. Prognosis guarded. Continue current treatment. Urinary retention. Continue his Dillard catheter. Prognosis is guarded. Possibly discharge home soon. MMODL / IJN: [id number] /
[2023-03-14] MEDS: BUDESONIDE 0.5 MG/2 ML NEBU INHALATION SCH ×2 (07:35→20:20)
[2023-03-14] MEDS: IPRATROPIUM-ALBUTEROL 3 ML NEB INHALATION SCH ×4 (07:35→20:20)
--- NOTE | 2023-03-14 07:41 | P.PN ---
Progress Note - Text Progress Note Date: 03/13/23 Patient Alexandria shay. I was contacted by [facility] nurse practitioner for oncology. They're requesting endoscopy to evaluate for possible source of lymphoma. The patient will be scheduled for upper and lower endoscopy on .
[2023-03-14 07:57] LABS: Glucose,Whole Blood 124 mg/dL (70-110)
[2023-03-14] MEDS: DULoxetine HCL 60 MG CAPSULE.DR PO SCH (07:59)
[2023-03-14] MEDS: buPROPion SR 100 MG TABLET.ER PO SCH (07:59)
[2023-03-14] MEDS: FENOFIBRATE 54 MG TAB PO SCH (07:59)
[2023-03-14] MEDS: POTASSIUM CHLORIDE ER 20 MEQ TAB.ER PO SCH (07:59)
[2023-03-14] MEDS: LOSARTAN 25 MG TAB PO SCH (07:59)
[2023-03-14] MEDS: TAMSULOSIN 0.4 MG CAP.ER.24H PO SCH (07:59)
[2023-03-14] MEDS: amLODIPine 10 MG TAB PO SCH (07:59)
[2023-03-14] MEDS: METOPROLOL TARTRATE 50 MG TAB PO SCH ×2 (07:59→21:07)
[2023-03-14] MEDS: ASPIRIN 81 MG PO SCH (07:59)
[2023-03-14] MEDS: SODIUM CHLORIDE 0.9% 1,000 ML IV SCH ×2 (08:00→21:08)
[2023-03-14] MEDS: INSULIN ASPART (NovoLOG) 100 UNIT/ML VIAL SQ SCH ×3 (08:00→18:06)
[2023-03-14] MEDS: DOCUSATE 100 MG CAP PO SCH ×2 (08:02→21:07)
[2023-03-14 11:36] LABS: Glucose,Whole Blood 135 mg/dL (70-110)
[2023-03-14] MEDS: MULTIVITAMINS, THERA 1 EACH TAB PO SCH (12:27)
--- NOTE | 2023-03-14 13:56 | P.PN ---
Subjective Progress Note Date: 03/14/23 CHIEF COMPLAINT: Lymphadenopathy HISTORY OF PRESENT ILLNESS: Patient is status post excision of left cervical lymph node on 02/08/23. Path result Positive for Hodgkin lymphoma. Patient is followed by oncology service. Oncology requesting endoscopy for further evaluation of possible source of lymphoma. Patient will have EGD and colonoscopy on . Patient has no new pains. Tolerating diet. Afebrile. PHYSICAL EXAM: VITAL SIGNS: Reviewed. GENERAL: Well-developed in no acute distress. HEENT: Left neck incision is clean dry and intact. Decreased swelling NEUROLOGIC: Alert and oriented. Cranial nerves II through XII grossly intact. ASSESSMENT: 1. Lymphadenopathy is status post excision of left cervical lymph node. Pathology result positive for Hodgkin lymphoma 2. Lymphocele. Improved PLAN: -Patient scheduled for EGD and colonoscopy on , 03/16/[address] Le -Start GoLYTELY bowel prep tomorrow morning -Start clear liquid diet tomorrow Physician Surgeon/President note has been reviewed by physician. Signing provider agrees with the documented findings, assessment, and plan of care. Objective - Vital Signs Vital signs: Vital Signs Temp 97.7 F 03/14/23 13:22 Pulse 62 03/14/23 13:22 Resp 17 03/14/23 13:22 BP 160/68 03/14/23 13:22 Pulse Ox 98 03/14/23 13:22 FiO2 21 03/06/23 07:34 Intake & Output 03/13/23 03/14/23 03/14/23 18:59 06:59 18:59 Output Total 1800 1300 Balance -1800 -1300 Output: Urine 1800 1300 Other: Voiding Method Indwelling Catheter Indwelling Catheter Indwelling Catheter # Bowel Movements 1 - Labs CBC & Chem 7: 03/08/23 07:00 03/08/23 07:00 Labs: Abnormal Lab Results - Last 24 Hours (Table) 03/13/23 03/13/23 03/14/23 Range/Units 17:04 20:31 07:56 POC Glucose (mg/dL) 186 H 215 H 124 H (70-110) mg/dL 03/14/23 Range/Units 11:32 POC Glucose (mg/dL) 135 H (70-110) mg/dL
[2023-03-14] MEDS: ALPRAZolam 0.25 MG TAB PO PRN ×2 (15:13→23:47)
[2023-03-14 16:26] LABS: Glucose,Whole Blood 191 mg/dL (70-110)
[2023-03-14 17:49] LABS: Glucose,Whole Blood 159 mg/dL (70-110)
[2023-03-14 20:25] LABS: Glucose,Whole Blood 181 mg/dL (70-110)
[2023-03-14 20:25] LABS: Glucose,Whole Blood 412 mg/dL (70-110)
[2023-03-14] MEDS: HYDROcodone/APAP 5-325MG 1 EACH TAB PO PRN (21:07)
[2023-03-14] MEDS: INSULIN DETEMIR (LEVEMIR) 100 UNIT/ML SYR SQ SCH (21:07)
[2023-03-14] MEDS: ATORVASTATIN 40 MG TAB PO SCH (21:07)
--- NOTE | 2023-03-15 01:38 | PN ---
PROGRESS NOTE SUBJECTIVE: He is supposed to have a court date tomorrow to get get him to a alf somewhere. He is on hypertension medicine, depression medicines, diabetes medications. Cozaar, Lopressor for hypertension, potassium replacement, K-Dur, Norvasc for hypertension, Lipitor for dyslipidemia, Pulmicort for COPD, DuoNeb for COPD, Xanax for anxiety, Lipitor for hypercholesterolemia. OBJECTIVE: GENERAL: The patient is alert and oriented x3. VITAL SIGNS: Temp 97.8, blood pressure 134/69, O2 sats 96 on room air. CARDIOVASCULAR: S1, S2. LUNGS: Scattered wheeze. HEMATOLOGY: Negative for Homans. PSYCH: Fair mood and affect. PLAN: Prior CVA, cellulitis of the trach area. Continue current treatments for hypertension, COPD, diabetes. Prognosis guarded. Possible discharge planning. He has had a CVA with right-sided weakness. MMODL / IJN: [id number] /
[2023-03-15 05:55] LABS: HCT 37.9 % (39.0-53.0); HGB 12.4 gm/dL (13.0-17.5); MCH 30.6 pg (25.0-35.0); MCHC 32.8 g/dL (31.0-37.0); MCV 93.3 fL (80.0-100.0); Mean Platelet Volume 7.3; Platelet Count 180 k/uL (150-450); RBC 4.06 m/uL (4.30-5.90)
[2023-03-15 06:02] LABS: African American GFR (CKD) >90 (>60 ml/min/1.73 sqM); Anion Gap 7 mmol/L; Blood Urea Nitrogen 17 mg/dL (9-20); Calcium 9.1 mg/dL (8.4-10.2); Carbon Dioxide 24 mmol/L (22-30); Chloride 106 mmol/L (98-107); Glucose 130 mg/dL (74-99); Non-African American GFR(CKD) >90 (>60 ml/min/1.73 sqM); Potassium 3.8 mmol/L (3.5-5.1); Sodium 137 mmol/L (137-145)
[2023-03-15 07:29] LABS: Glucose,Whole Blood 169 mg/dL (70-110)
[2023-03-15] MEDS ORDERED: PEG 3350 (236 GM/BTL) + LYTES 4,000 ML BOTTLE PO ONE (08:00)
[2023-03-15] MEDS: METOPROLOL TARTRATE 50 MG TAB PO SCH ×2 (08:30→20:16)
[2023-03-15] MEDS: buPROPion SR 100 MG TABLET.ER PO SCH (08:30)
[2023-03-15] MEDS: ASPIRIN 81 MG PO SCH (08:30)
[2023-03-15] MEDS: TAMSULOSIN 0.4 MG CAP.ER.24H PO SCH (08:30)
[2023-03-15] MEDS: INSULIN ASPART (NovoLOG) 100 UNIT/ML VIAL SQ SCH ×3 (08:30→17:28)
[2023-03-15] MEDS: amLODIPine 10 MG TAB PO SCH (08:30)
[2023-03-15] MEDS: MULTIVITAMINS, THERA 1 EACH TAB PO SCH (08:30)
[2023-03-15] MEDS: POTASSIUM CHLORIDE ER 20 MEQ TAB.ER PO SCH (08:30)
[2023-03-15] MEDS: FENOFIBRATE 54 MG TAB PO SCH (08:30)
[2023-03-15] MEDS: DULoxetine HCL 60 MG CAPSULE.DR PO SCH (08:30)
[2023-03-15] MEDS: LOSARTAN 25 MG TAB PO SCH (08:30)
[2023-03-15] MEDS: SODIUM CHLORIDE 0.9% 1,000 ML IV SCH (08:31)
[2023-03-15] MEDS: HEPARIN SODIUM,PORCINE/PF 5,000 UNIT/0.5 ML SYRINGE SQ SCH ×2 (08:32→16:35)
[2023-03-15] MEDS: DOCUSATE 100 MG CAP PO SCH ×2 (08:33→20:15)
[2023-03-15] MEDS: IPRATROPIUM-ALBUTEROL 3 ML NEB INHALATION SCH ×4 (09:16→20:19)
[2023-03-15] MEDS: BUDESONIDE 0.5 MG/2 ML NEBU INHALATION SCH ×2 (09:16→20:19)
[2023-03-15 11:03] LABS: Glucose,Whole Blood 181 mg/dL (70-110)
--- NOTE | 2023-03-15 15:43 | P.PN ---
Subjective Progress Note Date: 03/15/23 CHIEF COMPLAINT: Lymphadenopathy HISTORY OF PRESENT ILLNESS: Patient is status post excision of left cervical lymph node on 02/08/23. Path result Positive for Hodgkin lymphoma. Patient is followed by oncology service. Oncology requesting endoscopy for further evaluation of possible source of lymphoma. Patient has started the GoLYTELY bowel prep. Afebrile. WBC is 5.0 Hgb 12.4 platelets 180 sodium 137 potassium 3.8 creatinine 0.63 PHYSICAL EXAM: VITAL SIGNS: Reviewed. GENERAL: Well-developed in no acute distress. HEENT: Left neck incision is clean dry and intact. Decreased swelling NEUROLOGIC: Alert and oriented. Cranial nerves II through XII grossly intact. ASSESSMENT: 1. Lymphadenopathy is status post excision of left cervical lymph node. Pathology result positive for Hodgkin lymphoma 2. Lymphocele. Improved PLAN: -Patient scheduled for EGD and colonoscopy on , 03/16/[address] Le -Continue GoLYTELY bowel prep -Continue clear liquid diet -Nothing by mouth after Physician Bark Fitter note has been reviewed by physician. Signing provider agrees with the documented findings, assessment, and plan of care. Objective - Vital Signs Vital signs: Vital Signs Temp 97.9 F 03/15/23 07:35 Pulse 63 03/15/23 12:48 Resp 20 03/15/23 12:48 BP 138/78 03/15/23 12:48 Pulse Ox 98 03/15/23 12:48 FiO2 21 03/06/23 07:34 Intake & Output 03/14/23 03/15/23 03/15/23 18:59 06:59 18:59 Intake Total 900 0 Output Total 1900 1100 Balance 900 -1900 -1100 Weight 80 kg Intake: IV 900 Sodium Chloride 0.9% 1, 900 000 ml @ 75 mls/hr IV . [id number] [facility] Rx#:[id number] Oral 0 Output: Urine 1900 1100 Other: Voiding Method Indwelling Catheter Indwelling Catheter Indwelling Catheter - Labs CBC & Chem 7: 03/15/23 05:30 03/15/23 05:30 Labs: Abnormal Lab Results - Last 24 Hours (Table) 03/14/23 03/14/23 03/14/23 Range/Units 16:24 17:48 20:15 RBC (4.30-5.90) m/uL Hgb (13.0-17.5) gm/dL Hct (39.0-53.0) % Creatinine (0.66-1.25) mg/dL Glucose (74-99) mg/dL POC Glucose (mg/dL) 191 H 159 H 412 H (70-110) mg/dL 03/14/23 03/15/23 03/15/23 Range/Units 20:17 05:30 05:30 RBC 4.06 L (4.30-5.90) m/uL Hgb 12.4 L (13.0-17.5) gm/dL Hct 37.9 L (39.0-53.0) % Creatinine 0.63 L (0.66-1.25) mg/dL Glucose 130 H (74-99) mg/dL POC Glucose (mg/dL) 181 H (70-110) mg/dL 03/15/23 03/15/23 Range/Units 07:27 10:59 RBC (4.30-5.90) m/uL Hgb (13.0-17.5) gm/dL Hct (39.0-53.0) % Creatinine (0.66-1.25) mg/dL Glucose (74-99) mg/dL POC Glucose (mg/dL) 169 H 181 H (70-110) mg/dL
[2023-03-15 17:25] LABS: Glucose,Whole Blood 150 mg/dL (70-110)
[2023-03-15] MEDS: ALPRAZolam 0.25 MG TAB PO PRN (17:25)
[2023-03-15] MEDS: ATORVASTATIN 40 MG TAB PO SCH (20:16)
[2023-03-15 20:32] LABS: Glucose,Whole Blood 115 mg/dL (70-110)
[2023-03-15] MEDS: INSULIN DETEMIR (LEVEMIR) 100 UNIT/ML SYR SQ SCH (20:52)
[2023-03-15] MEDS: HYDROcodone/APAP 5-325MG 1 EACH TAB PO PRN (23:22)
[2023-03-16] MEDS: HEPARIN SODIUM,PORCINE/PF 5,000 UNIT/0.5 ML SYRINGE SQ SCH ×3 (00:30→15:26)
[2023-03-16] MEDS: ALPRAZolam 0.25 MG TAB PO PRN ×2 (00:30→21:49)
[2023-03-16] MEDS: SODIUM CHLORIDE 0.9% 1,000 ML IV SCH ×2 (00:31→13:19)
[2023-03-16 03:18] LABS: Glucose,Whole Blood 53 mg/dL (70-110)
[2023-03-16] MEDS: DEXTROSE 50% SYRINGE 50 ML IVP PRN ×2 (03:20→07:04)
[2023-03-16 03:44] LABS: Glucose,Whole Blood 144 mg/dL (70-110)
[2023-03-16 05:29] LABS: HCT 40.5 % (39.0-53.0); HGB 13.6 gm/dL (13.0-17.5); MCH 31.4 pg (25.0-35.0); MCHC 33.6 g/dL (31.0-37.0); MCV 93.5 fL (80.0-100.0); Mean Platelet Volume 7.1; Platelet Count 169 k/uL (150-450); RBC 4.33 m/uL (4.30-5.90); WBC 8.7 k/uL (3.8-10.6)
[2023-03-16 05:47] LABS: African American GFR (CKD) >90 (>60 ml/min/1.73 sqM); Anion Gap 8 mmol/L; Blood Urea Nitrogen 13 mg/dL (9-20); Calcium 9.3 mg/dL (8.4-10.2); Carbon Dioxide 26 mmol/L (22-30); Chloride 106 mmol/L (98-107); Glucose 80 mg/dL (74-99); Non-African American GFR(CKD) >90 (>60 ml/min/1.73 sqM); Potassium 3.7 mmol/L (3.5-5.1); Sodium 140 mmol/L (137-145)
[2023-03-16] MEDS: LACTATED RINGERS 1,000 ML IV SCH ×2 (06:12→13:19)
[2023-03-16 07:00] LABS: Glucose,Whole Blood 63 mg/dL (70-110)
[2023-03-16 07:23] LABS: Glucose,Whole Blood 139 mg/dL (70-110)
[2023-03-16] MEDS: INSULIN ASPART (NovoLOG) 100 UNIT/ML VIAL SQ SCH ×3 (07:33→17:45)
[2023-03-16] MEDS: IPRATROPIUM-ALBUTEROL 3 ML NEB INHALATION SCH ×4 (08:33→19:53)
[2023-03-16] MEDS: BUDESONIDE 0.5 MG/2 ML NEBU INHALATION SCH ×2 (08:33→19:53)
[2023-03-16] MEDS: amLODIPine 10 MG TAB PO SCH (08:58)
[2023-03-16] MEDS: MULTIVITAMINS, THERA 1 EACH TAB PO SCH (08:58)
[2023-03-16] MEDS: buPROPion SR 100 MG TABLET.ER PO SCH (08:58)
[2023-03-16] MEDS: LOSARTAN 25 MG TAB PO SCH (08:58)
[2023-03-16] MEDS: ASPIRIN 81 MG PO SCH (08:58)
[2023-03-16] MEDS: DOCUSATE 100 MG CAP PO SCH ×2 (08:58→21:41)
[2023-03-16] MEDS: METOPROLOL TARTRATE 50 MG TAB PO SCH ×2 (08:58→21:47)
[2023-03-16] MEDS: POTASSIUM CHLORIDE ER 20 MEQ TAB.ER PO SCH (08:58)
[2023-03-16] MEDS: DULoxetine HCL 60 MG CAPSULE.DR PO SCH (08:58)
[2023-03-16] MEDS: FENOFIBRATE 54 MG TAB PO SCH (08:58)
[2023-03-16] MEDS: TAMSULOSIN 0.4 MG CAP.ER.24H PO SCH (08:58)
[2023-03-16 11:13] LABS: Glucose,Whole Blood 77 mg/dL (70-110)
[2023-03-16] MEDS ORDERED: IV FLUID CONTINUATION 1,000 ML IV ONE (11:32)
--- NOTE | 2023-03-16 11:42 | P.OP ---
Date of Procedure: 03/16/23 Preoperative Diagnosis: History of lymphoma Postoperative Diagnosis: Antral gastritis Procedure(s) Performed: EGD Anesthesia: MAC Surgeon: Joshua Le Pathology: other (Antrum) Condition: stable Disposition: PACU Description of Procedure: The patient's placed on the endoscopy table in the lateral position. He received IV sedation. The gastroscope placed oropharynx passed in the esophagus and stomach. Scope was then placed through the pylorus. First and second portion of the duodenum appeared normal. Scope was then brought back the antrum and this was mildly inflamed. A biopsies performed. The scope was then retroflexed and the remainder the stomach appeared normal.. The GE junction was at 40 cm the distal esophagus appeared normal. Proximal esophagus appeared normal. Scope withdrawn for patient.
[2023-03-16 12:18] LABS: Glucose,Whole Blood 74 mg/dL (70-110)
[2023-03-16 15:09] LABS: Glucose,Whole Blood 195 mg/dL (70-110)
[2023-03-16 15:09] LABS: Glucose,Whole Blood 163 mg/dL (70-110)
--- NOTE | 2023-03-16 15:46 | P.PN ---
Subjective Progress Note Date: 03/16/23 Principal diagnosis: cervical lymphadenopathy At today's visit patient is resting comfortably in bed. Patient denies neck pain and dysphagia. EGD and colonoscopy scheduled for today. However patient has declined to proceed with the remainder of colonoscopy prep as he states it is too much. EGD was performed, colonoscopy rescheduled for Monday. Objective - Vital Signs Vital signs: Vital Signs Temp 97.5 F L 03/16/23 07:00 Pulse 64 03/16/23 12:15 Resp 16 03/16/23 12:15 BP 118/66 03/16/23 12:15 Pulse Ox 100 03/16/23 12:15 FiO2 21 03/06/23 07:34 Intake & Output 03/15/23 03/16/23 03/16/23 18:59 06:59 18:59 Intake Total 900 0 100 Output Total 2650 3025 600 Balance -1750 -3025 -500 Weight 80 kg Intake: IV 900 100 Sodium Chloride 0.9% 1, 900 000 ml @ 75 mls/hr IV . [id number] [facility] Rx#:[id number] Oral 0 Output: Urine 2650 3025 600 Uretheral (Dillard) 625 625 Other: Voiding Method Indwelling Catheter Indwelling Catheter Indwelling Catheter # Bowel Movements 1 1 - Constitutional General appearance: Present: average body habitus, no acute distress - EENT Eyes: Present: anicteric sclerae, EOMI ENT: Present: hearing grossly normal - Respiratory Details: breathing is even and unlabored - Cardiovascular Details: skin warm and dry - Integumentary Integumentary: Absent: cyanotic, rash - Musculoskeletal Musculoskeletal: Present: generalized weakness - Psychiatric Psychiatric: Present: A&O x's 3, appropriate affect, intact judgment & insight - Labs CBC & Chem 7: 03/16/23 04:34 03/16/23 04:34 Labs: Abnormal Lab Results - Last 24 Hours (Table) 02/24/23 02/25/23 03/15/23 Range/Units 19:29 15:51 17:23 Creatinine (0.66-1.25) mg/dL POC Glucose (mg/dL) 195 H 163 H 150 H (70-110) mg/dL 03/15/23 03/16/23 03/16/23 Range/Units 20:30 03:15 03:41 Creatinine (0.66-1.25) mg/dL POC Glucose (mg/dL) 115 H 53 L 144 H (70-110) mg/dL 03/16/23 03/16/23 03/16/23 Range/Units 04:34 06:58 07:22 Creatinine 0.57 L (0.66-1.25) mg/dL POC Glucose (mg/dL) 63 L 139 H (70-110) mg/dL Microbiology - Last 24 Hours (Table) 02/28/23 17:50 Urine Culture - Final Urine,Voided Serratia marcescens Assessment and Plan (1) Lymphadenopathy, cervical Current Visit: Yes Status: Acute Priority: High Code(s): R59.0 - LOCALIZED ENLARGED LYMPH NODES SNOMED Code(s): 972880271 (2) Hodgkin lymphoma Current Visit: Yes Status: Acute Priority: High Code(s): C81.90 - HODGKIN LYMPHOMA, UNSPECIFIED, UNSPECIFIED SITE SNOMED Code(s): 799624144 Plan: Hodgkin Lymphoma: -S/P LN excision. Left cervical lymph node biopsy revealed atypical lymphoreticular infiltrate consistent with Hodgkin's lymphoma. Results have been discussed in detail with patient, with treatment plan and goals. -Discussed the need for further imaging/testing for staging. -PET scan revealed multiple left-sided neck lymph nodes which are enlarged with increased metabolic activity. Focal uptake near the wall of the cecum anteriorly which is indeterminate, SUV 5.0. General surgery consulted for evaluation for colonoscopy.EGD and colonoscopy scheduled for today, however patient did not finish prep as he stated it was too much. Discussed with the patient the importance of this test for staging and treatment determination. EGD was completed this morning revealing midly inflamed antrum, biopsy obtained, otherwise normal. Colonoscopy will be rescheduled for Monday. Based on findings, treatment may consist of radiation if local vs chemo and radiation if metastatic. Rad/onc following -Will await final report from surgery/biopsies to discuss recommended treatment options -Due to complex social dynamics/finances social work is having difficulties finding patient placement. 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 Patient updated on plan of care
[2023-03-16 17:06] LABS: Glucose,Whole Blood 227 mg/dL (70-110)
[2023-03-16 20:22] LABS: Glucose,Whole Blood 134 mg/dL (70-110)
[2023-03-16] MEDS: INSULIN DETEMIR (LEVEMIR) 100 UNIT/ML SYR SQ SCH (21:41)
[2023-03-16] MEDS: ATORVASTATIN 40 MG TAB PO SCH (21:47)
[2023-03-16] MEDS: HYDROcodone/APAP 5-325MG 1 EACH TAB PO PRN (21:49)
--- NOTE | 2023-03-17 01:00 | PN ---
PROGRESS NOTE SUBJECTIVE: The patient is a 67-year-old white male. The patient is failure to thrive, so waiting for senior care placement at this time. Apparently, there is a court date today, for which court things were decided. OBJECTIVE: CARDIOVASCULAR: S1, S2. LUNGS: Clear. GI: Soft. HEMATOLOGY: Negative Homans. EXTREMITIES: Right-sided weakness. ASSESSMENT AND PLAN: The patient is failure to thrive, prior cerebrovascular accident, right-sided weakness, diabetes mellitus, chronic obstructive pulmonary disease, cellulitis of the neck. Prognosis guarded. Continue current treatment. Wait for discharge planning. MMODL / IJN: [id number] /
[2023-03-17] MEDS: HEPARIN SODIUM,PORCINE/PF 5,000 UNIT/0.5 ML SYRINGE SQ SCH ×3 (01:06→16:26)
[2023-03-17] MEDS: SODIUM CHLORIDE 0.9% 1,000 ML IV SCH ×2 (01:07→16:28)
[2023-03-17 07:05] LABS: Glucose,Whole Blood 141 mg/dL (70-110)
[2023-03-17] MEDS: INSULIN ASPART (NovoLOG) 100 UNIT/ML VIAL SQ SCH ×3 (07:20→17:36)
[2023-03-17] MEDS: ASPIRIN 81 MG PO SCH (08:36)
[2023-03-17] MEDS: MULTIVITAMINS, THERA 1 EACH TAB PO SCH (08:36)
[2023-03-17] MEDS: METOPROLOL TARTRATE 50 MG TAB PO SCH ×2 (08:36→21:43)
[2023-03-17] MEDS: LOSARTAN 25 MG TAB PO SCH (08:36)
[2023-03-17] MEDS: DOCUSATE 100 MG CAP PO SCH ×2 (08:36→21:43)
[2023-03-17] MEDS: POTASSIUM CHLORIDE ER 20 MEQ TAB.ER PO SCH (08:36)
[2023-03-17] MEDS: DULoxetine HCL 60 MG CAPSULE.DR PO SCH (08:36)
[2023-03-17] MEDS: TAMSULOSIN 0.4 MG CAP.ER.24H PO SCH (08:36)
[2023-03-17] MEDS: amLODIPine 10 MG TAB PO SCH (08:36)
[2023-03-17] MEDS: buPROPion SR 100 MG TABLET.ER PO SCH (08:37)
[2023-03-17] MEDS: FENOFIBRATE 54 MG TAB PO SCH (08:37)
[2023-03-17] MEDS: IPRATROPIUM-ALBUTEROL 3 ML NEB INHALATION SCH ×4 (09:05→20:42)
[2023-03-17] MEDS: BUDESONIDE 0.5 MG/2 ML NEBU INHALATION SCH ×2 (09:05→20:42)
[2023-03-17] MEDS: LACTATED RINGERS 1,000 ML IV SCH (10:48)
--- NOTE | 2023-03-17 11:52 | P.PN ---
Subjective Progress Note Date: 03/17/23 CHIEF COMPLAINT: Lymphadenopathy HISTORY OF PRESENT ILLNESS: Patient is status post excision of left cervical lymph node on 02/08/23. Path result Positive for Hodgkin lymphoma. Patient is followed by oncology service. Oncology requesting endoscopy for further evaluation of possible source of lymphoma. Patient did not complete the GoLYTELY bowel prep. Therefore he only had the EGD completed yesterday that showed antral gastritis. Oncology is requesting that a colonoscopy be completed. Therefore colonoscopy has been rescheduled for Monday. Apparently patient is been having difficulty swallowing and is scheduled for a modified barium swallow study by primary service. PHYSICAL EXAM: VITAL SIGNS: Reviewed. GENERAL: Well-developed in no acute distress. HEENT: Left neck incision is clean dry and intact. Decreased swelling NEUROLOGIC: Alert and oriented. Cranial nerves II through XII grossly intact. ASSESSMENT: 1. Lymphadenopathy is status post excision of left cervical lymph node. Pathology result positive for Hodgkin lymphoma 2. Lymphocele of the neck. Improved 3. Antral gastritis noted on EGD PLAN: -Patient scheduled for colonoscopy on 03/20/[address] son -Start GoLYTELY bowel prep Monday morning to continue through Monday for a 2 day bowel prep since patient failed his first bowel prep -Start clear liquid diet tomorrow while patient is undergoing bowel prep Physician Mercury Recoverer note has been reviewed by physician. Signing provider agrees with the documented findings, assessment, and plan of care. Objective - Vital Signs Vital signs: Vital Signs Temp 97.6 F 03/17/23 07:04 Pulse 79 03/17/23 07:04 Resp 16 03/17/23 07:04 BP 144/81 03/17/23 07:04 Pulse Ox 97 03/17/23 09:03 FiO2 21 03/06/23 07:34 Intake & Output 03/16/23 03/17/23 03/17/23 18:59 06:59 18:59 Intake Total 100 Output Total 1100 325 800 Balance -1000 -325 -800 Intake: IV 100 Output: Urine 1100 325 800 Other: Voiding Method Indwelling Catheter Indwelling Catheter Indwelling Catheter # Bowel Movements 1 1 1 - Labs CBC & Chem 7: 03/16/23 04:34 03/16/23 04:34 Labs: Abnormal Lab Results - Last 24 Hours (Table) 02/24/23 02/25/23 03/16/23 Range/Units 19:29 15:51 17:05 POC Glucose (mg/dL) 195 H 163 H 227 H (70-110) mg/dL 03/16/23 03/17/23 Range/Units 20:21 07:04 POC Glucose (mg/dL) 134 H 141 H (70-110) mg/dL Microbiology - Last 24 Hours (Table) 02/28/23 17:50 Urine Culture - Final Urine,Voided Serratia marcescens
[2023-03-17 12:44] LABS: Glucose,Whole Blood 164 mg/dL (70-110)
[2023-03-17] MEDS: PANTOPRAZOLE 40 MG TABLET PO SCH (13:37)
--- NOTE | 2023-03-17 15:08 | FL ---
EXAMINATION TYPE: FL barium swallow w video DATE OF EXAM: 03/17/2023 CLINICAL HISTORY: 67-year-old male with strokes, trouble swallowing, Dysphagia. TECHNIQUE: Deglutition study is performed utilizing thin liquid barium, barium thick applesauce, and barium coated cracker. COMPARISON: None. Total fluoroscopy time: 1 minute 37 seconds. Total images: None. Real-time fluoroscopy support was provided to speech pathology. DOSE AREA PRODUCT (DAP) UGY*M,MGY*CM: 5 FINDINGS: The oral and pharyngeal phases show satisfactory initiation and propagation with all modalities teste d. Normal mastication is seen with solid modalities tested. There is no evidence of penetration or aspiration with any modality tested. No significant pharyngeal residue was appreciated. IMPRESSION: Functional swallow. Please refer to speech therapist notes for further details if necessary.
[2023-03-17] MEDS: ALPRAZolam 0.25 MG TAB PO PRN (16:26)
[2023-03-17 17:14] LABS: Glucose,Whole Blood 174 mg/dL (70-110)
[2023-03-17 20:37] LABS: Glucose,Whole Blood 216 mg/dL (70-110)
[2023-03-17] MEDS: INSULIN DETEMIR (LEVEMIR) 100 UNIT/ML SYR SQ SCH (21:42)
[2023-03-17] MEDS: ATORVASTATIN 40 MG TAB PO SCH (21:43)
[2023-03-17] MEDS: HYDROcodone/APAP 5-325MG 1 EACH TAB PO PRN (21:51)
[2023-03-18] MEDS: HEPARIN SODIUM,PORCINE/PF 5,000 UNIT/0.5 ML SYRINGE SQ SCH ×4 (01:32→23:46)
[2023-03-18] MEDS: ALPRAZolam 0.25 MG TAB PO PRN ×3 (02:33→23:46)
[2023-03-18] MEDS: SODIUM CHLORIDE 0.9% 1,000 ML IV SCH ×2 (03:54→15:33)
[2023-03-18 07:24] LABS: Glucose,Whole Blood 105 mg/dL (70-110)
[2023-03-18] MEDS: INSULIN ASPART (NovoLOG) 100 UNIT/ML VIAL SQ SCH ×3 (07:30→18:18)
[2023-03-18] MEDS: POTASSIUM CHLORIDE ER 20 MEQ TAB.ER PO SCH (08:52)
[2023-03-18] MEDS: METOPROLOL TARTRATE 50 MG TAB PO SCH ×2 (08:52→20:14)
[2023-03-18] MEDS: MULTIVITAMINS, THERA 1 EACH TAB PO SCH (08:52)
[2023-03-18] MEDS: TAMSULOSIN 0.4 MG CAP.ER.24H PO SCH (08:52)
[2023-03-18] MEDS: PANTOPRAZOLE 40 MG TABLET PO SCH (08:52)
[2023-03-18] MEDS: ASPIRIN 81 MG PO SCH (08:52)
[2023-03-18] MEDS: buPROPion SR 100 MG TABLET.ER PO SCH (08:52)
[2023-03-18] MEDS: DOCUSATE 100 MG CAP PO SCH ×2 (08:52→20:14)
[2023-03-18] MEDS: FENOFIBRATE 54 MG TAB PO SCH (08:52)
[2023-03-18] MEDS: DULoxetine HCL 60 MG CAPSULE.DR PO SCH (08:52)
[2023-03-18] MEDS: LOSARTAN 25 MG TAB PO SCH (08:52)
[2023-03-18] MEDS: amLODIPine 10 MG TAB PO SCH (08:52)
[2023-03-18] MEDS ORDERED: PEG 3350 (236 GM/BTL) + LYTES 4,000 ML BOTTLE PO ONE (09:00)
[2023-03-18] MEDS: IPRATROPIUM-ALBUTEROL 3 ML NEB INHALATION SCH ×4 (09:06→20:59)
[2023-03-18] MEDS: BUDESONIDE 0.5 MG/2 ML NEBU INHALATION SCH ×2 (09:06→20:59)
--- NOTE | 2023-03-18 10:14 | P.PN ---
Subjective Progress Note Date: 03/18/23 Principal diagnosis: Left neck seroma Patient has no new complaints. No abdominal pain. He is on a clear liquid diet. Objective - Vital Signs Vital signs: Vital Signs Temp 98.5 F 03/18/23 07:50 Pulse 68 03/18/23 07:50 Resp 17 03/18/23 07:50 BP 153/78 03/18/23 07:50 Pulse Ox 98 03/18/23 09:07 FiO2 21 03/06/23 07:34 Intake & Output 03/17/23 03/18/23 03/18/23 18:59 06:59 18:59 Output Total 7670 233 1631 Balance -1450 -300 -1200 Output: Urine 2331 968 4656 Other: Voiding Method Indwelling Catheter Indwelling Catheter # Bowel Movements 1 - Exam Abdomen: Soft, nontender, nondistended - Labs CBC & Chem 7: 03/16/23 04:34 03/16/23 04:34 Labs: Abnormal Lab Results - Last 24 Hours (Table) 03/17/23 03/17/23 03/17/23 Range/Units 12:42 17:13 20:33 POC Glucose (mg/dL) 164 H 174 H 216 H (70-110) mg/dL Assessment and Plan (1) Lymphadenopathy, cervical Narrative/Plan: 67-year-old male with recent diagnosis of Hodgkin's lymphoma. Patient scheduled for colonoscopy on Monday after PET scan shows activity in that area. Continue clear liquid diet. 2 day bowel prep starting today. Current Visit: Yes Status: Acute Priority: High Code(s): R59.0 - LOCALIZED ENLARGED LYMPH NODES SNOMED Code(s): 311088523
[2023-03-18] MEDS: LACTATED RINGERS 1,000 ML IV SCH (10:53)
[2023-03-18 11:27] LABS: Glucose,Whole Blood 137 mg/dL (70-110)
--- NOTE | 2023-03-18 13:04 | PN ---
PROGRESS NOTE SUBJECTIVE: This is a 67-year-old white male, remains on current treatments. OBJECTIVE: VITAL SIGNS: Temp 97 to 98, pulse 60s to 70s, blood pressure 113 to 150s over 60s to 70s, O2 sat is 95-98, and respiratory rate 16 to 18. CARDIOVASCULAR: S1, S2. LUNGS: Transmitted sounds. HEMATOLOGY: Negative for Homans. PSYCH: Fair mood and affect. HEENT: Pupils equal, round, and reactive. MUSCULOSKELETAL: Right-sided weakness, 3/5 strength, right lower leg and right arm from prior stroke. The patient is with his daughter in the room. Medications were adjusted. He is ready for discharge planning. Diabetes is under better control, his labs look stable. Sugars are in the mid 100s mostly. Prognosis guarded. Possible discharge home in next 24 to 48 hours. MMSARAHL / DAINN: [id number] /
[2023-03-18 17:37] LABS: Glucose,Whole Blood 109 mg/dL (70-110)
[2023-03-18 20:13] LABS: Glucose,Whole Blood 162 mg/dL (70-110)
[2023-03-18] MEDS: INSULIN DETEMIR (LEVEMIR) 100 UNIT/ML SYR SQ SCH (20:14)
[2023-03-18] MEDS: ATORVASTATIN 40 MG TAB PO SCH (20:14)
[2023-03-18] MEDS: HYDROcodone/APAP 5-325MG 1 EACH TAB PO PRN (20:31)
[2023-03-19] MEDS: SODIUM CHLORIDE 0.9% 1,000 ML IV SCH ×2 (04:22→15:29)
[2023-03-19 07:14] LABS: Glucose,Whole Blood 134 mg/dL (70-110)
[2023-03-19 07:51] LABS: Basophils % (A) 0 %; Eosinophils # (A) 0.3 k/uL (0-0.7); Eosinophils % (A) 5 %; HGB 13.2 gm/dL (13.0-17.5); Lymphocytes # (A) 1.3 k/uL (1.0-4.8); Lymphocytes % (A) 22 %; MCH 30.8 pg (25.0-35.0); MCV 93.5 fL (80.0-100.0); Mean Platelet Volume 6.7; Monocytes # (A) 0.4 k/uL (0-1.0); Monocytes % (A) 7 %; Neutrophils # (A) 3.7 k/uL (1.3-7.7); Neutrophils % (A) 63 %; Platelet Count 183 k/uL (150-450); RBC 4.28 m/uL (4.30-5.90); RDW 14.8 % (11.5-15.5); WBC 5.9 k/uL (3.8-10.6)
[2023-03-19] MEDS: INSULIN ASPART (NovoLOG) 100 UNIT/ML VIAL SQ SCH ×3 (07:53→17:43)
[2023-03-19] MEDS: amLODIPine 10 MG TAB PO SCH (08:22)
[2023-03-19] MEDS: TAMSULOSIN 0.4 MG CAP.ER.24H PO SCH (08:22)
[2023-03-19] MEDS: ASPIRIN 81 MG PO SCH (08:22)
[2023-03-19] MEDS: POTASSIUM CHLORIDE ER 20 MEQ TAB.ER PO SCH (08:22)
[2023-03-19] MEDS: HEPARIN SODIUM,PORCINE/PF 5,000 UNIT/0.5 ML SYRINGE SQ SCH ×3 (08:22→22:48)
[2023-03-19] MEDS: MULTIVITAMINS, THERA 1 EACH TAB PO SCH (08:22)
[2023-03-19] MEDS: DOCUSATE 100 MG CAP PO SCH ×2 (08:22→20:30)
[2023-03-19] MEDS: FENOFIBRATE 54 MG TAB PO SCH (08:22)
[2023-03-19] MEDS: PANTOPRAZOLE 40 MG TABLET PO SCH (08:22)
[2023-03-19] MEDS: DULoxetine HCL 60 MG CAPSULE.DR PO SCH (08:22)
[2023-03-19] MEDS: buPROPion SR 100 MG TABLET.ER PO SCH (08:22)
[2023-03-19] MEDS: METOPROLOL TARTRATE 50 MG TAB PO SCH ×2 (08:22→20:30)
[2023-03-19] MEDS: LOSARTAN 25 MG TAB PO SCH (08:22)
[2023-03-19] MEDS: IPRATROPIUM-ALBUTEROL 3 ML NEB INHALATION SCH ×4 (08:49→20:16)
[2023-03-19] MEDS: BUDESONIDE 0.5 MG/2 ML NEBU INHALATION SCH ×2 (08:50→20:16)
[2023-03-19 08:55] LABS: ALT 19 U/L (4-49); AST 21 U/L (17-59); African American GFR (CKD) >90 (>60 ml/min/1.73 sqM); Albumin 3.7 g/dL (3.5-5.0); Albumin/Globulin Ratio 1.5; Alkaline Phosphatase 62 U/L (38-126); Anion Gap 7 mmol/L; Blood Urea Nitrogen 12 mg/dL (9-20); Calcium 9.3 mg/dL (8.4-10.2); Carbon Dioxide 28 mmol/L (22-30); Chloride 104 mmol/L (98-107); Globulin 2.4 g/dL; Glucose 137 mg/dL (74-99); Non-African American GFR(CKD) >90 (>60 ml/min/1.73 sqM); Potassium 4.1 mmol/L (3.5-5.1); Sodium 139 mmol/L (137-145); Total Bilirubin 0.6 mg/dL (0.2-1.3); Total Protein 6.1 g/dL (6.3-8.2)
--- NOTE | 2023-03-19 09:34 | P.PN ---
Subjective Progress Note Date: 03/19/23 Principal diagnosis: Left neck seroma Patient tolerated some of his bowel prep yesterday. Apparently he did not have a lot of stool. No nausea or vomiting. No pain. Objective - Vital Signs Vital signs: Vital Signs Temp 98.4 F 03/19/23 07:20 Pulse 64 03/19/23 09:02 Resp 18 03/19/23 07:20 BP 126/64 03/19/23 07:20 Pulse Ox 96 03/19/23 08:50 FiO2 21 03/06/23 07:34 Intake & Output 03/18/23 03/19/23 03/19/23 18:59 06:59 18:59 Intake Total 1616 240 Output Total 1600 1850 Balance 16 -1610 Intake: IV 900 Sodium Chloride 0.9% 1, 900 000 ml @ 75 mls/hr IV . [id number] [facility] Rx#:[id number] Oral 716 240 Output: Urine 1600 1850 Other: Voiding Method Indwelling Catheter Indwelling Catheter Indwelling Catheter # Bowel Movements 1 - Exam Abdomen: Soft, nontender, nondistended - Labs CBC & Chem 7: 03/19/23 07:06 03/19/23 07:06 Labs: Abnormal Lab Results - Last 24 Hours (Table) 03/18/23 03/18/23 03/19/23 Range/Units 11:23 20:11 07:06 RBC (4.30-5.90) m/uL Creatinine 0.58 L (0.66-1.25) mg/dL Glucose 137 H (74-99) mg/dL POC Glucose (mg/dL) 137 H 162 H (70-110) mg/dL Total Protein 6.1 L (6.3-8.2) g/dL 03/19/23 03/19/23 Range/Units 07:06 07:12 RBC 4.28 L (4.30-5.90) m/uL Creatinine (0.66-1.25) mg/dL Glucose (74-99) mg/dL POC Glucose (mg/dL) 134 H (70-110) mg/dL Total Protein (6.3-8.2) g/dL Assessment and Plan (1) Lymphadenopathy, cervical Narrative/Plan: Continue bowel prep today for colonoscopy tomorrow given recent abnormal PET scan findings. Current Visit: Yes Status: Acute Priority: High Code(s): R59.0 - LOCALIZED ENLARGED LYMPH NODES SNOMED Code(s): 351125287
[2023-03-19 11:17] LABS: Glucose,Whole Blood 174 mg/dL (70-110)
[2023-03-19] MEDS: ALPRAZolam 0.25 MG TAB PO PRN ×2 (15:29→22:48)
[2023-03-19 17:05] LABS: Glucose,Whole Blood 115 mg/dL (70-110)
[2023-03-19] MEDS: INSULIN DETEMIR (LEVEMIR) 100 UNIT/ML SYR SQ SCH (20:30)
[2023-03-19] MEDS: ATORVASTATIN 40 MG TAB PO SCH (20:30)
[2023-03-19 20:32] LABS: Glucose,Whole Blood 189 mg/dL (70-110)
[2023-03-19] MEDS: HYDROcodone/APAP 5-325MG 1 EACH TAB PO PRN (22:47)
[2023-03-20 06:40] LABS: HCT 42.6 % (39.0-53.0); HGB 14.1 gm/dL (13.0-17.5); MCH 31.1 pg (25.0-35.0); Mean Platelet Volume 6.9; Platelet Count 196 k/uL (150-450); RBC 4.53 m/uL (4.30-5.90); RDW 14.7 % (11.5-15.5); WBC 6.3 k/uL (3.8-10.6)
[2023-03-20 07:10] LABS: Glucose,Whole Blood 70 mg/dL (70-110)
[2023-03-20] MEDS: INSULIN ASPART (NovoLOG) 100 UNIT/ML VIAL SQ SCH ×3 (07:21→18:07)
[2023-03-20 07:23] LABS: African American GFR (CKD) >90 (>60 ml/min/1.73 sqM); Anion Gap 6 mmol/L; Blood Urea Nitrogen 8 mg/dL (9-20); Calcium 8.8 mg/dL (8.4-10.2); Carbon Dioxide 27 mmol/L (22-30); Chloride 108 mmol/L (98-107); Glucose 53 mg/dL (74-99); Non-African American GFR(CKD) >90 (>60 ml/min/1.73 sqM); Potassium 3.7 mmol/L (3.5-5.1); Sodium 141 mmol/L (137-145)
[2023-03-20] MEDS: DEXTROSE 50% SYRINGE 50 ML IVP PRN (07:40)
[2023-03-20] MEDS: BUDESONIDE 0.5 MG/2 ML NEBU INHALATION SCH ×2 (07:42→18:27)
[2023-03-20] MEDS: IPRATROPIUM-ALBUTEROL 3 ML NEB INHALATION SCH ×4 (07:42→18:27)
[2023-03-20 08:10] LABS: Glucose,Whole Blood 103 mg/dL (70-110)
[2023-03-20] MEDS: PANTOPRAZOLE 40 MG TABLET PO SCH (09:24)
[2023-03-20] MEDS: MULTIVITAMINS, THERA 1 EACH TAB PO SCH (09:24)
[2023-03-20] MEDS: POTASSIUM CHLORIDE ER 20 MEQ TAB.ER PO SCH (09:24)
[2023-03-20] MEDS: LOSARTAN 25 MG TAB PO SCH (09:24)
[2023-03-20] MEDS: DULoxetine HCL 60 MG CAPSULE.DR PO SCH (09:24)
[2023-03-20] MEDS: TAMSULOSIN 0.4 MG CAP.ER.24H PO SCH (09:24)
[2023-03-20] MEDS: DOCUSATE 100 MG CAP PO SCH ×2 (09:24→20:43)
[2023-03-20] MEDS: amLODIPine 10 MG TAB PO SCH (09:24)
[2023-03-20] MEDS: HEPARIN SODIUM,PORCINE/PF 5,000 UNIT/0.5 ML SYRINGE SQ SCH ×3 (09:25→23:36)
[2023-03-20] MEDS: buPROPion SR 100 MG TABLET.ER PO SCH (09:25)
[2023-03-20] MEDS: ASPIRIN 81 MG PO SCH (09:25)
[2023-03-20] MEDS: FENOFIBRATE 54 MG TAB PO SCH (09:25)
[2023-03-20] MEDS: METOPROLOL TARTRATE 50 MG TAB PO SCH ×2 (09:26→20:43)
[2023-03-20] MEDS: ALPRAZolam 0.25 MG TAB PO PRN ×2 (09:31→20:42)
[2023-03-20] MEDS ORDERED: PROPOFOL 10 MG/ML 20 ML VIAL IV ONE (10:12)
[2023-03-20] MEDS ORDERED: LIDOCAINE 2% INJ 20 MG/ML (2 ML VIAL) ONE (10:12)
[2023-03-20] MEDS ORDERED: IV FLUID CONTINUATION 500 ML IV ONE (10:40)
--- NOTE | 2023-03-20 10:49 | P.OP ---
Date of Procedure: 03/20/23 Preoperative Diagnosis: Lymphoma Failure to thrive Postoperative Diagnosis: Diverticulosis Poor colon prep Procedure(s) Performed: Colonoscopy Anesthesia: MAC Surgeon: Joshua Le Pathology: none sent Condition: stable Disposition: PACU Description of Procedure: The patient's placed on the endoscopy table in the lateral position. He received IV sedation. Digital rectal exam was performed. There were a few external hemorrhoids. The possible colonoscope was then placed patient anus passed rotator colon. The patient reported colon prep. Large amount liquid stool colon. The cecum was evaluated this appeared normal. The ascending and transverse colon appeared normal. In the descending; there is moderate diverticular changes. Scope was then brought back the rectum and this appeared normal. Scope withdrawn for patient.
[2023-03-20 11:02] LABS: Glucose,Whole Blood 98 mg/dL (70-110)
[2023-03-20] MEDS ORDERED: SODIUM CHLORIDE 0.9% 1,000 ML IV ONE (11:21)
[2023-03-20 11:53] LABS: Glucose,Whole Blood 104 mg/dL (70-110)
[2023-03-20] MEDS: SODIUM CHLORIDE 0.9% 1,000 ML IV SCH ×2 (12:02→20:46)
[2023-03-20 17:18] LABS: Glucose,Whole Blood 178 mg/dL (70-110)
[2023-03-20 20:30] LABS: Glucose,Whole Blood 216 mg/dL (70-110)
[2023-03-20] MEDS: ATORVASTATIN 40 MG TAB PO SCH (20:43)
[2023-03-20] MEDS: HYDROcodone/APAP 5-325MG 1 EACH TAB PO PRN (20:43)
[2023-03-20] MEDS: INSULIN DETEMIR (LEVEMIR) 100 UNIT/ML SYR SQ SCH (20:43)
--- NOTE | 2023-03-21 01:28 | PN ---
PROGRESS NOTE SUBJECTIVE: The patient had a surgery today by Dr. Le, colonoscopy with possible biopsy. Operative note, the patient was sent for the colonoscopy. Cecum appeared normal. Ascending, transverse colon were normal. Descending colon, diverticular changes. No signs of bleeding or masses seen. Few external hemorrhoids. The patient is waiting for discharge planning at this time. OBJECTIVE: VITAL SIGNS: , blood pressure 122/75, 99 on room air, pulse 76, respiratory rate is 12 to 14. CARDIOVASCULAR: S1, S2. LUNGS: Clear. GI: Soft. ASSESSMENT: Hypertension, dyslipidemia, chronic obstructive pulmonary disease, prior cerebrovascular accident with right hemiparesis. MEDICATIONS: Heparin subcu, insulin for diabetes mellitus, Cozaar and Lopressor for hypertension, Protonix for GERD, Flomax for BPH. PROGNOSIS: Guarded. Wait for discharge planning. The patient is unable to ambulate, in poor physical therapy. Prognosis is guarded. Follow up as an outpatient. MMODL / IJN: [id number] /
[2023-03-21 07:35] LABS: Glucose,Whole Blood 102 mg/dL (70-110)
[2023-03-21] MEDS: INSULIN ASPART (NovoLOG) 100 UNIT/ML VIAL SQ SCH ×3 (07:52→17:58)
[2023-03-21] MEDS: BUDESONIDE 0.5 MG/2 ML NEBU INHALATION SCH ×2 (08:06→19:21)
[2023-03-21] MEDS: IPRATROPIUM-ALBUTEROL 3 ML NEB INHALATION SCH ×4 (08:07→19:21)
[2023-03-21] MEDS: PANTOPRAZOLE 40 MG TABLET PO SCH (09:19)
[2023-03-21] MEDS: HEPARIN SODIUM,PORCINE/PF 5,000 UNIT/0.5 ML SYRINGE SQ SCH ×3 (09:19→22:56)
[2023-03-21] MEDS: amLODIPine 10 MG TAB PO SCH (09:19)
[2023-03-21] MEDS: ASPIRIN 81 MG PO SCH (09:22)
[2023-03-21] MEDS: buPROPion SR 100 MG TABLET.ER PO SCH (09:22)
[2023-03-21] MEDS: FENOFIBRATE 54 MG TAB PO SCH (09:23)
[2023-03-21] MEDS: DOCUSATE 100 MG CAP PO SCH ×2 (09:23→20:59)
[2023-03-21] MEDS: LOSARTAN 25 MG TAB PO SCH (09:23)
[2023-03-21] MEDS: POTASSIUM CHLORIDE ER 20 MEQ TAB.ER PO SCH (09:23)
[2023-03-21] MEDS: TAMSULOSIN 0.4 MG CAP.ER.24H PO SCH (09:23)
[2023-03-21] MEDS: METOPROLOL TARTRATE 50 MG TAB PO SCH ×2 (09:23→20:59)
[2023-03-21] MEDS: DULoxetine HCL 60 MG CAPSULE.DR PO SCH (09:23)
[2023-03-21] MEDS: MULTIVITAMINS, THERA 1 EACH TAB PO SCH (09:23)
[2023-03-21] MEDS: ALPRAZolam 0.25 MG TAB PO PRN ×2 (09:31→20:59)
--- NOTE | 2023-03-21 11:27 | P.PN ---
Subjective Progress Note Date: 03/21/23 CHIEF COMPLAINT: Lymphadenopathy HISTORY OF PRESENT ILLNESS: Patient is status post excision of left cervical lymph node on 02/08/23. Path result Positive for Hodgkin lymphoma. Patient status post colonoscopy. Results showed diverticulosis and also had poor colon prep. Patient denies any abdominal pain. Denies any nausea or vomiting. Tolerating regular diet. PHYSICAL EXAM: VITAL SIGNS: Reviewed. GENERAL: Well-developed in no acute distress. HEENT: Left neck incision is clean dry and intact. ABDOMEN: nontender. nondistended. soft NEUROLOGIC: Alert and oriented. Cranial nerves II through XII grossly intact. ASSESSMENT: 1. Lymphadenopathy is status post excision of left cervical lymph node. Pathology result positive for Hodgkin lymphoma 2. Lymphocele of the neck. Improved 3. Antral gastritis noted on EGD 4. Colonoscopy with poor colon prep and evidence of diverticulosis PLAN: -Awaiting discharge planning -Continue regular diet -Continue PPI for gastritis Physician Mobile Home Servicer note has been reviewed by physician. Signing provider agrees with the documented findings, assessment, and plan of care. Objective - Vital Signs Vital signs: Vital Signs Temp 98.5 F 03/21/23 07:35 Pulse 75 03/21/23 07:35 Resp 18 03/21/23 07:35 BP 142/78 03/21/23 07:35 Pulse Ox 100 03/21/23 07:54 FiO2 21 03/06/23 07:34 Intake & Output 03/20/23 03/21/23 03/21/23 18:59 06:59 18:59 Intake Total 700 1500 Output Total 2725 300 Balance -2024 1200 Weight 80 kg Intake: IV 700 900 Sodium Chloride 0.9% 1, 900 000 ml @ 75 mls/hr IV . [id number] [facility] Rx#:[id number] Oral 600 Output: Urine 2725 300 Other: Voiding Method Indwelling Catheter Indwelling Catheter - Labs CBC & Chem 7: 03/20/23 06:01 03/20/23 06:01 Labs: Abnormal Lab Results - Last 24 Hours (Table) 03/20/23 03/20/23 Range/Units 17:16 20:28 POC Glucose (mg/dL) 178 H 216 H (70-110) mg/dL
[2023-03-21 12:19] LABS: Glucose,Whole Blood 116 mg/dL (70-110)
--- NOTE | 2023-03-21 14:37 | P.PN ---
Subjective Progress Note Date: 03/21/23 Principal diagnosis: cervical lymphadenopathy At today's visit patient is resting comfortably in bed. Patient denies neck pain and dysphagia. S/p colonoscopy yesterday. No reported complaints Objective - Vital Signs Vital signs: Vital Signs Temp 98.5 F 03/21/23 07:35 Pulse 74 03/21/23 11:44 Resp 18 03/21/23 07:35 BP 142/78 03/21/23 07:35 Pulse Ox 100 03/21/23 07:54 FiO2 21 03/06/23 07:34 Intake & Output 03/20/23 03/21/23 03/21/23 18:59 06:59 18:59 Intake Total 700 1500 Output Total 2725 300 2 Balance -2024 1200 -2 Weight 80 kg Intake: IV 700 900 Sodium Chloride 0.9% 1, 900 000 ml @ 75 mls/hr IV . [id number] [facility] Rx#:[id number] Oral 600 Output: Urine 2725 300 Stool 2 Other: Voiding Method Indwelling Catheter Indwelling Catheter Indwelling Catheter - Constitutional General appearance: Present: average body habitus, no acute distress - EENT Eyes: Present: anicteric sclerae, EOMI ENT: Present: hearing grossly normal - Respiratory Details: breathing even unlabored - Cardiovascular Details: skin warm and dry - Integumentary Integumentary: Present: pale. Absent: cyanotic - Musculoskeletal Musculoskeletal: Present: generalized weakness - Psychiatric Psychiatric: Present: A&O x's 3 - Labs CBC & Chem 7: 03/20/23 06:01 03/20/23 06:01 Labs: Abnormal Lab Results - Last 24 Hours (Table) 03/20/23 03/20/23 03/21/23 Range/Units 17:16 20:28 12:18 POC Glucose (mg/dL) 178 H 216 H 116 H (70-110) mg/dL Assessment and Plan (1) Lymphadenopathy, cervical Current Visit: Yes Status: Acute Priority: High Code(s): R59.0 - LOCALIZED ENLARGED LYMPH NODES SNOMED Code(s): 394412852 (2) Hodgkin lymphoma Current Visit: Yes Status: Acute Priority: High Code(s): C81.90 - HODGKIN LYMPHOMA, UNSPECIFIED, UNSPECIFIED SITE SNOMED Code(s): 193415716 Plan: Hodgkin Lymphoma: -S/P LN excision. Left cervical lymph node biopsy revealed atypical lymphoreticular infiltrate consistent with Hodgkin's lymphoma. Results have been discussed in detail with patient, with treatment plan and goals. -PET scan revealed multiple left-sided neck lymph nodes which are enlarged with increased metabolic activity. Focal uptake near the wall of the cecum anteriorly which is indeterminate, SUV 5.0. General surgery consulted for evaluation for colonoscopy/EGD. EGD revealed midly inflamed antrum, biopsy negative for malignancy. Colonoscopy showed poor colon prep and evidence of diverticulosis, cecum appeared normal. Based on findings PET and EGD/colonoscopy, disease is localized to left neck and treatment at this time will consist of RT alone. Rad/onc following, plan for 15 fractions. Will plan for clinic f/u with Dr. Olson upon discharge. -Due to complex social dynamics/finances social work is having difficulties finding patient placement. oyster worker is working with APS/court system to hopefully find appropriate placement but unfortunately they has been no resolution at this time in regards to placement. Patient updated on plan of care
[2023-03-21 17:20] LABS: Glucose,Whole Blood 165 mg/dL (70-110)
[2023-03-21 20:06] LABS: Glucose,Whole Blood 184 mg/dL (70-110)
[2023-03-21] MEDS: INSULIN DETEMIR (LEVEMIR) 100 UNIT/ML SYR SQ SCH (20:55)
[2023-03-21] MEDS: HYDROcodone/APAP 5-325MG 1 EACH TAB PO PRN (20:59)
[2023-03-21] MEDS: ATORVASTATIN 40 MG TAB PO SCH (20:59)
[2023-03-21] MEDS: SODIUM CHLORIDE 0.9% 1,000 ML IV SCH (22:45)
--- NOTE | 2023-03-22 05:29 | PN ---
PROGRESS NOTE SUBJECTIVE: A 67-year-old white male who is waiting for [facility] was seen. He had a colonoscopy which was normal the other day. Resting comfortably. He has cervical lymphadenopathy. OBJECTIVE: VITAL SIGNS: Blood pressure 140s/70s, temp 98.5, pulse 74. CARDIOVASCULAR: S1, S2. LUNGS: Clear. GI: Soft. HEMATOLOGY: Negative for Homans. ASSESSMENT: Cervical lymphadenopathy, non-Hodgkin's lymphoma, prior cerebrovascular accident with right-sided weakness. PET scan reviewed. Oncology note reviewed. difficulty finding housing for this patient. Disease localized to the left neck, and treatment at this time will consist of RT alone. Radiation Oncology following. Plan for 15 fractions. We will plan for clinic followup on discharge. Prognosis is guarded. MMODL / IJN: [id number] /
[2023-03-22] MEDS: SODIUM CHLORIDE 0.9% 1,000 ML IV SCH ×2 (05:35→12:49)
[2023-03-22] MEDS: ALPRAZolam 0.25 MG TAB PO PRN ×2 (06:04→21:02)
[2023-03-22 07:35] LABS: Glucose,Whole Blood 145 mg/dL (70-110)
[2023-03-22] MEDS: BUDESONIDE 0.5 MG/2 ML NEBU INHALATION SCH ×2 (07:42→20:43)
[2023-03-22] MEDS: IPRATROPIUM-ALBUTEROL 3 ML NEB INHALATION SCH ×4 (07:42→20:43)
[2023-03-22] MEDS: INSULIN ASPART (NovoLOG) 100 UNIT/ML VIAL SQ SCH ×3 (08:01→17:10)
[2023-03-22] MEDS: ASPIRIN 81 MG PO SCH (09:00)
[2023-03-22] MEDS: LOSARTAN 25 MG TAB PO SCH (09:00)
[2023-03-22] MEDS: amLODIPine 10 MG TAB PO SCH (09:00)
[2023-03-22] MEDS: DOCUSATE 100 MG CAP PO SCH ×2 (09:00→21:03)
[2023-03-22] MEDS: DULoxetine HCL 60 MG CAPSULE.DR PO SCH (09:00)
[2023-03-22] MEDS: PANTOPRAZOLE 40 MG TABLET PO SCH (09:00)
[2023-03-22] MEDS: TAMSULOSIN 0.4 MG CAP.ER.24H PO SCH (09:00)
[2023-03-22] MEDS: MULTIVITAMINS, THERA 1 EACH TAB PO SCH (09:00)
[2023-03-22] MEDS: METOPROLOL TARTRATE 50 MG TAB PO SCH ×2 (09:00→21:03)
[2023-03-22] MEDS: POTASSIUM CHLORIDE ER 20 MEQ TAB.ER PO SCH (09:01)
[2023-03-22] MEDS: FENOFIBRATE 54 MG TAB PO SCH (09:01)
[2023-03-22] MEDS: buPROPion SR 100 MG TABLET.ER PO SCH (09:01)
[2023-03-22] MEDS: HEPARIN SODIUM,PORCINE/PF 5,000 UNIT/0.5 ML SYRINGE SQ SCH ×3 (09:04→23:50)
[2023-03-22 11:53] LABS: Glucose,Whole Blood 241 mg/dL (70-110)
--- NOTE | 2023-03-22 12:48 | P.PN ---
Subjective Progress Note Date: 03/22/23 CHIEF COMPLAINT: Lymphadenopathy HISTORY OF PRESENT ILLNESS: Patient is status post excision of left cervical lymph node on 02/08/23. Path result Positive for Hodgkin lymphoma. Patient status post colonoscopy. Results showed diverticulosis and also had poor colon prep. Patient denies any abdominal pain. Denies any nausea or vomiting. Tolerating regular diet. Oncology following. Patient will need radiation treatment for his lymphoma. PHYSICAL EXAM: VITAL SIGNS: Reviewed. GENERAL: Well-developed in no acute distress. HEENT: Left neck incision is clean dry and intact. ABDOMEN: nontender. nondistended. soft NEUROLOGIC: Alert and oriented. Cranial nerves II through XII grossly intact. ASSESSMENT: 1. Lymphadenopathy is status post excision of left cervical lymph node. Pathology result positive for Hodgkin lymphoma 2. Lymphocele of the neck. Improved 3. Antral gastritis noted on EGD 4. Colonoscopy with poor colon prep and evidence of diverticulosis PLAN: -Awaiting discharge planning -Continue regular diet -Continue PPI for gastritis Physician Manufacturing Lab Technician note has been reviewed by physician. Signing provider agrees with the documented findings, assessment, and plan of care. Objective - Vital Signs Vital signs: Vital Signs Temp 97.6 F 03/22/23 11:08 Pulse 77 03/22/23 11:08 Resp 16 03/22/23 11:08 BP 144/71 03/22/23 11:08 Pulse Ox 98 03/22/23 11:08 FiO2 21 03/06/23 07:34 Intake & Output 03/21/23 03/22/23 03/22/23 18:59 06:59 18:59 Intake Total 600 Output Total 2202 800 Balance -1602 -800 Intake: IV 600 Sodium Chloride 0.9% 1, 600 000 ml @ 75 mls/hr IV . [id number] [facility] Rx#:[id number] Output: Urine 2200 800 Stool 2 Other: Voiding Method Indwelling Catheter Indwelling Catheter Indwelling Catheter - Labs CBC & Chem 7: 03/20/23 06:01 03/20/23 06:01 Labs: Abnormal Lab Results - Last 24 Hours (Table) 03/21/23 03/21/23 03/22/23 Range/Units 17:18 20:04 07:33 POC Glucose (mg/dL) 165 H 184 H 145 H (70-110) mg/dL 03/22/23 Range/Units 11:52 POC Glucose (mg/dL) 241 H (70-110) mg/dL
[2023-03-22 17:01] LABS: Glucose,Whole Blood 122 mg/dL (70-110)
[2023-03-22 20:17] LABS: Glucose,Whole Blood 173 mg/dL (70-110)
[2023-03-22] MEDS: HYDROcodone/APAP 5-325MG 1 EACH TAB PO PRN (21:02)
[2023-03-22] MEDS: ATORVASTATIN 40 MG TAB PO SCH (21:03)
[2023-03-22] MEDS: INSULIN DETEMIR (LEVEMIR) 100 UNIT/ML SYR SQ SCH (21:03)
[2023-03-23] MEDS: SODIUM CHLORIDE 0.9% 1,000 ML IV SCH ×2 (04:53→17:00)
[2023-03-23 07:17] LABS: Glucose,Whole Blood 122 mg/dL (70-110)
[2023-03-23] MEDS: INSULIN ASPART (NovoLOG) 100 UNIT/ML VIAL SQ SCH ×3 (07:59→17:18)
[2023-03-23] MEDS: BUDESONIDE 0.5 MG/2 ML NEBU INHALATION SCH ×2 (09:36→20:34)
[2023-03-23] MEDS: IPRATROPIUM-ALBUTEROL 3 ML NEB INHALATION SCH ×4 (09:36→20:34)
[2023-03-23] MEDS: PANTOPRAZOLE 40 MG TABLET PO SCH (09:38)
[2023-03-23] MEDS: HEPARIN SODIUM,PORCINE/PF 5,000 UNIT/0.5 ML SYRINGE SQ SCH ×3 (09:38→23:50)
[2023-03-23] MEDS: DULoxetine HCL 60 MG CAPSULE.DR PO SCH (09:39)
[2023-03-23] MEDS: FENOFIBRATE 54 MG TAB PO SCH (09:39)
[2023-03-23] MEDS: buPROPion SR 100 MG TABLET.ER PO SCH (09:39)
[2023-03-23] MEDS: DOCUSATE 100 MG CAP PO SCH ×2 (09:39→21:18)
[2023-03-23] MEDS: METOPROLOL TARTRATE 50 MG TAB PO SCH ×2 (09:39→21:18)
[2023-03-23] MEDS: LOSARTAN 25 MG TAB PO SCH (09:39)
[2023-03-23] MEDS: ASPIRIN 81 MG PO SCH (09:39)
[2023-03-23] MEDS: amLODIPine 10 MG TAB PO SCH (09:39)
[2023-03-23] MEDS: TAMSULOSIN 0.4 MG CAP.ER.24H PO SCH (09:40)
[2023-03-23] MEDS: HYDROcodone/APAP 5-325MG 1 EACH TAB PO PRN ×2 (09:40→21:18)
[2023-03-23] MEDS: POTASSIUM CHLORIDE ER 20 MEQ TAB.ER PO SCH (09:40)
[2023-03-23] MEDS: MULTIVITAMINS, THERA 1 EACH TAB PO SCH (09:40)
[2023-03-23] MEDS: ALPRAZolam 0.25 MG TAB PO PRN ×2 (09:40→19:50)
[2023-03-23 12:08] LABS: Glucose,Whole Blood 175 mg/dL (70-110)
--- NOTE | 2023-03-23 13:42 | P.PN ---
Subjective Progress Note Date: 03/23/23 CHIEF COMPLAINT: Lymphadenopathy HISTORY OF PRESENT ILLNESS: Patient is status post excision of left cervical lymph node on 02/08/23. Path result Positive for Hodgkin lymphoma. Patient status post colonoscopy. Results showed diverticulosis and also had poor colon prep. Patient denies any abdominal pain. Denies any nausea or vomiting. Tolerating regular diet. PHYSICAL EXAM: VITAL SIGNS: Reviewed. GENERAL: Well-developed in no acute distress. HEENT: Left neck incision is clean dry and intact. ABDOMEN: nontender. nondistended. soft NEUROLOGIC: Alert and oriented. Cranial nerves II through XII grossly intact. ASSESSMENT: 1. Lymphadenopathy is status post excision of left cervical lymph node. Pathology result positive for Hodgkin lymphoma 2. Lymphocele of the neck. Improved 3. Antral gastritis noted on EGD 4. Colonoscopy with poor colon prep and evidence of diverticulosis PLAN: -Awaiting discharge planning -Continue regular diet -Continue PPI for gastritis Physician Territory Account Manager note has been reviewed by physician. Signing provider agrees with the documented findings, assessment, and plan of care. Objective - Vital Signs Vital signs: Vital Signs Temp 97.4 F L 03/23/23 11:23 Pulse 65 03/23/23 11:23 Resp 16 03/23/23 11:23 BP 127/69 03/23/23 11:23 Pulse Ox 97 03/23/23 11:23 FiO2 21 03/06/23 07:34 Intake & Output 03/22/23 03/23/23 03/23/23 18:59 06:59 18:59 Output Total 900 700 2 Balance -900 -700 -2 Output: Urine 900 700 Stool 2 Other: Voiding Method Indwelling Catheter Indwelling Catheter Indwelling Catheter # Bowel Movements 1 1 - Labs CBC & Chem 7: 03/20/23 06:01 03/20/23 06:01 Labs: Abnormal Lab Results - Last 24 Hours (Table) 03/22/23 03/22/23 03/23/23 Range/Units 16:58 20:15 07:03 POC Glucose (mg/dL) 122 H 173 H 122 H (70-110) mg/dL 03/23/23 Range/Units 12:06 POC Glucose (mg/dL) 175 H (70-110) mg/dL
[2023-03-23 17:06] LABS: Glucose,Whole Blood 114 mg/dL (70-110)
[2023-03-23 20:08] LABS: Glucose,Whole Blood 217 mg/dL (70-110)
[2023-03-23] MEDS: INSULIN DETEMIR (LEVEMIR) 100 UNIT/ML SYR SQ SCH (21:18)
[2023-03-23] MEDS: ATORVASTATIN 40 MG TAB PO SCH (21:18)
[2023-03-24] MEDS: SODIUM CHLORIDE 0.9% 1,000 ML IV SCH (06:12)
[2023-03-24 07:16] LABS: Glucose,Whole Blood 99 mg/dL (70-110)
[2023-03-24] MEDS: INSULIN ASPART (NovoLOG) 100 UNIT/ML VIAL SQ SCH ×3 (08:03→17:22)
[2023-03-24] MEDS: BUDESONIDE 0.5 MG/2 ML NEBU INHALATION SCH ×2 (09:28→20:09)
[2023-03-24] MEDS: IPRATROPIUM-ALBUTEROL 3 ML NEB INHALATION SCH ×4 (09:28→20:09)
[2023-03-24] MEDS: DULoxetine HCL 60 MG CAPSULE.DR PO SCH (09:30)
[2023-03-24] MEDS: DOCUSATE 100 MG CAP PO SCH ×2 (09:30→21:33)
[2023-03-24] MEDS: buPROPion SR 100 MG TABLET.ER PO SCH (09:30)
[2023-03-24] MEDS: ASPIRIN 81 MG PO SCH (09:30)
[2023-03-24] MEDS: HEPARIN SODIUM,PORCINE/PF 5,000 UNIT/0.5 ML SYRINGE SQ SCH ×2 (09:30→17:22)
[2023-03-24] MEDS: amLODIPine 10 MG TAB PO SCH (09:30)
[2023-03-24] MEDS: PANTOPRAZOLE 40 MG TABLET PO SCH (09:30)
[2023-03-24] MEDS: FENOFIBRATE 54 MG TAB PO SCH (09:31)
[2023-03-24] MEDS: MULTIVITAMINS, THERA 1 EACH TAB PO SCH (09:31)
[2023-03-24] MEDS: LOSARTAN 25 MG TAB PO SCH (09:31)
[2023-03-24] MEDS: TAMSULOSIN 0.4 MG CAP.ER.24H PO SCH (09:31)
[2023-03-24] MEDS: POTASSIUM CHLORIDE ER 20 MEQ TAB.ER PO SCH (09:31)
[2023-03-24] MEDS: METOPROLOL TARTRATE 50 MG TAB PO SCH ×3 (09:31→21:35)
[2023-03-24 11:49] LABS: Glucose,Whole Blood 143 mg/dL (70-110)
--- NOTE | 2023-03-24 12:03 | P.PN ---
Subjective Progress Note Date: 03/24/23 CHIEF COMPLAINT: Lymphadenopathy HISTORY OF PRESENT ILLNESS: Patient is status post excision of left cervical lymph node on 02/08/23. Path result Positive for Hodgkin lymphoma. Patient status post colonoscopy. Results showed diverticulosis and also had poor colon prep. Patient denies any abdominal pain. Denies any nausea or vomiting. Tolerating regular diet. PHYSICAL EXAM: VITAL SIGNS: Reviewed. GENERAL: Well-developed in no acute distress. HEENT: Left neck incision is clean dry and intact. ABDOMEN: nontender. nondistended. soft NEUROLOGIC: Alert and oriented. Cranial nerves II through XII grossly intact. ASSESSMENT: 1. Lymphadenopathy is status post excision of left cervical lymph node. Pathology result positive for Hodgkin lymphoma 2. Lymphocele of the neck. Improved 3. Antral gastritis noted on EGD 4. Colonoscopy with poor colon prep and evidence of diverticulosis PLAN: -Awaiting discharge planning -Continue regular diet -Continue PPI for gastritis -Surgical service will sign off. Please call with any questions or concerns Physician Director Of Materials Management note has been reviewed by physician. Signing provider agrees with the documented findings, assessment, and plan of care. Objective - Vital Signs Vital signs: Vital Signs Temp 97.5 F L 03/24/23 07:11 Pulse 64 03/24/23 07:11 Resp 16 03/24/23 07:11 BP 130/76 03/24/23 07:11 Pulse Ox 99 03/24/23 07:11 FiO2 21 03/06/23 07:34 Intake & Output 03/23/23 03/24/23 03/24/23 18:59 06:59 18:59 Output Total 702 650 Balance -702 -650 Weight 80 kg Output: Urine 700 650 Stool 2 Other: Voiding Method Indwelling Catheter Indwelling Catheter # Bowel Movements 1 - Labs CBC & Chem 7: 03/20/23 06:01 03/20/23 06:01 Labs: Abnormal Lab Results - Last 24 Hours (Table) 03/23/23 03/23/23 03/23/23 Range/Units 12:06 17:03 20:07 POC Glucose (mg/dL) 175 H 114 H 217 H (70-110) mg/dL
--- NOTE | 2023-03-24 14:23 | P.PN ---
Subjective Progress Note Date: 03/24/23 Patient is a 67-year-old male with a past medical history significant for right hemiplegia secondary to CVA history of this very failure requiring tracheostomy subsequently worsened has been brought in the hospital for generalized weakness and debility and concern for possible cellulitis to the previous trach site patient did have a CT of the soft tissue of the neck did not show any evidence of abscess, patient has been adequately treated for cellulitis of the neck patient is currently in the hospital for 40+ days and is awaiting for placement 03/24. Dr. Garsia covering for Dr. Reynolds. Patient seen and examined. Does not look in acute distress. Currently tolerating diet. Went for radiation treatment today REVIEW OF SYSTEMS: CONSTITUTIONAL: No fever, no malaise,. CARDIOVASCULAR: No chest pain, no palpitations, no syncope. PULMONARY: No shortness of breath, no cough, GASTROINTESTINAL: No diarrhea, no nausea, no vomiting, no abdominal pain. NEUROLOGICAL: No headaches, no weakness, PHYSICAL EXAMINATION: GENERAL: The patient is alert and oriented x3, not in any acute distress. Well developed, well nourished. HEENT: Pupils are round and equally reacting to light. EOMI. No scleral icterus. No conjunctival pallor. Normocephalic, atraumatic. No pharyngeal erythema. No thyromegaly. CARDIOVASCULAR: S1 and S2 present. No murmurs, rubs, or gallops. PULMONARY: Chest is clear to auscultation, no wheezing or crackles. ABDOMEN: Soft, nontender, nondistended, normoactive bowel sounds. No palpable organomegaly. MUSCULOSKELETAL: No joint swelling or deformity. EXTREMITIES: No cyanosis, clubbing, or pedal edema. NEUROLOGICAL: Gross neurological examination did not reveal any focal deficits. SKIN: No rashes. Assessment and plan Hodgkin's lymphoma UTI due to indwelling catheter Lymphocele of the neck. Improved Antral gastritis noted on EGD Cervical adenopathy History of prior CVA Monitor vital signs Monitor CBC Monitor CMP -PET scan revealed multiple left-sided neck lymph nodes which are enlarged with increased metabolic activity. Focal uptake near the wall of the cecum anteriorly which is indeterminate, SUV 5.0. General surgery consulted for evaluation for colonoscopy/EGD. EGD revealed midly inflamed antrum, biopsy negative for malignancy. Colonoscopy showed poor colon prep and evidence of diverticulosis, cecum appeared normal. Based on findings PET and EGD/colonoscopy, disease is localized to left neck and treatment at this time will consist of RT alone. Rad/onc following, plan for 15 fractions. Hematology oncology following the patient -Due to complex social dynamics/finances social work is having difficulties finding patient placement. sheetmetal trades worker is working with [employer] system to hopefully find appropriate placement but unfortunately they has been no resolution at this time in regards to placement. Continue rest of treatment for now Objective - Vital Signs Vital signs: Vital Signs Temp 97.5 F L 03/24/23 07:11 Pulse 64 03/24/23 07:11 Resp 16 03/24/23 07:11 BP 130/76 03/24/23 07:11 Pulse Ox 99 03/24/23 07:11 FiO2 21 03/06/23 07:34 Intake & Output 03/23/23 03/24/23 03/24/23 18:59 06:59 18:59 Output Total 702 650 Balance -702 -650 Weight 80 kg Output: Urine 700 650 Stool 2 Other: Voiding Method Indwelling Catheter Indwelling Catheter # Bowel Movements 1 - Labs CBC & Chem 7: 03/20/23 06:01 03/20/23 06:01 Labs: Abnormal Lab Results - Last 24 Hours (Table) 03/23/23 03/23/23 03/23/23 Range/Units 12:06 17:03 20:07 POC Glucose (mg/dL) 175 H 114 H 217 H (70-110) mg/dL
[2023-03-24 17:14] LABS: Glucose,Whole Blood 157 mg/dL (70-110)
[2023-03-24 19:47] LABS: Glucose,Whole Blood 370 mg/dL (70-110)
[2023-03-24] MEDS: HYDROcodone/APAP 5-325MG 1 EACH TAB PO PRN (21:31)
[2023-03-24] MEDS: ALPRAZolam 0.25 MG TAB PO PRN (21:31)
[2023-03-24] MEDS: ATORVASTATIN 40 MG TAB PO SCH (21:33)
[2023-03-24] MEDS: INSULIN DETEMIR (LEVEMIR) 100 UNIT/ML SYR SQ SCH (21:33)
[2023-03-25] MEDS: HEPARIN SODIUM,PORCINE/PF 5,000 UNIT/0.5 ML SYRINGE SQ SCH ×3 (00:10→16:09)
[2023-03-25] MEDS: SODIUM CHLORIDE 0.9% 1,000 ML IV SCH ×2 (00:18→08:20)
[2023-03-25 02:12] LABS: Glucose,Whole Blood 206 mg/dL (70-110)
[2023-03-25 07:10] LABS: Glucose,Whole Blood 88 mg/dL (70-110)
[2023-03-25] MEDS: INSULIN ASPART (NovoLOG) 100 UNIT/ML VIAL SQ SCH ×3 (07:24→17:28)
[2023-03-25] MEDS: BUDESONIDE 0.5 MG/2 ML NEBU INHALATION SCH ×2 (08:02→20:12)
[2023-03-25] MEDS: IPRATROPIUM-ALBUTEROL 3 ML NEB INHALATION SCH ×4 (08:02→20:12)
[2023-03-25] MEDS: DOCUSATE 100 MG CAP PO SCH ×2 (08:19→20:41)
[2023-03-25] MEDS: METOPROLOL TARTRATE 50 MG TAB PO SCH ×2 (08:19→20:41)
[2023-03-25] MEDS: FENOFIBRATE 54 MG TAB PO SCH (08:19)
[2023-03-25] MEDS: TAMSULOSIN 0.4 MG CAP.ER.24H PO SCH (08:19)
[2023-03-25] MEDS: amLODIPine 10 MG TAB PO SCH (08:19)
[2023-03-25] MEDS: POTASSIUM CHLORIDE ER 20 MEQ TAB.ER PO SCH (08:19)
[2023-03-25] MEDS: MULTIVITAMINS, THERA 1 EACH TAB PO SCH (08:19)
[2023-03-25] MEDS: buPROPion SR 100 MG TABLET.ER PO SCH (08:19)
[2023-03-25] MEDS: ASPIRIN 81 MG PO SCH (08:19)
[2023-03-25] MEDS: PANTOPRAZOLE 40 MG TABLET PO SCH (08:19)
[2023-03-25] MEDS: LOSARTAN 25 MG TAB PO SCH (08:19)
[2023-03-25] MEDS: DULoxetine HCL 60 MG CAPSULE.DR PO SCH (08:19)
[2023-03-25 11:47] LABS: Glucose,Whole Blood 193 mg/dL (70-110)
--- NOTE | 2023-03-25 13:43 | P.PN ---
Subjective Progress Note Date: 03/25/23 Patient is a 67-year-old male with a past medical history significant for right hemiplegia secondary to CVA history of this very failure requiring tracheostomy subsequently worsened has been brought in the hospital for generalized weakness and debility and concern for possible cellulitis to the previous trach site patient did have a CT of the soft tissue of the neck did not show any evidence of abscess, patient has been adequately treated for cellulitis of the neck patient is currently in the hospital for 40+ days and is awaiting for placement 03/24. Dr. Garsia covering for Dr. Reynolds. Patient seen and examined. Does not look in acute distress. Currently tolerating diet. Went for radiation treatment today 03/25. Patient seen and examined. No acute issues overnight. Vital signs stable. Tolerating diet. REVIEW OF SYSTEMS: CONSTITUTIONAL: No fever, no malaise,. CARDIOVASCULAR: No chest pain, no palpitations, no syncope. PULMONARY: No shortness of breath, no cough, GASTROINTESTINAL: No diarrhea, no nausea, no vomiting, no abdominal pain. NEUROLOGICAL: No headaches, no weakness, PHYSICAL EXAMINATION: GENERAL: The patient is alert and oriented x3, not in any acute distress. Well developed, well nourished. HEENT: Pupils are round and equally reacting to light. EOMI. No scleral icterus. No conjunctival pallor. Normocephalic, atraumatic. No pharyngeal erythema. No thyromegaly. CARDIOVASCULAR: S1 and S2 present. No murmurs, rubs, or gallops. PULMONARY: Chest is clear to auscultation, no wheezing or crackles. ABDOMEN: Soft, nontender, nondistended, normoactive bowel sounds. No palpable organomegaly. MUSCULOSKELETAL: No joint swelling or deformity. EXTREMITIES: No cyanosis, clubbing, or pedal edema. NEUROLOGICAL: Gross neurological examination did not reveal any focal deficits. SKIN: No rashes. Assessment and plan Hodgkin's lymphoma UTI due to indwelling catheter Lymphocele of the neck. Improved Antral gastritis noted on EGD Cervical adenopathy History of prior CVA Monitor vital signs Monitor CBC Monitor CMP -PET scan revealed multiple left-sided neck lymph nodes which are enlarged with increased metabolic activity. Focal uptake near the wall of the cecum anteriorly which is indeterminate, SUV 5.0. General surgery consulted for evaluation for colonoscopy/EGD. EGD revealed midly inflamed antrum, biopsy negative for malignancy. Colonoscopy showed poor colon prep and evidence of diverticulosis, cecum appeared normal. Based on findings PET and EGD/colonoscopy, disease is localized to left neck and treatment at this time will consist of RT alone. Rad/onc following, plan for 15 fractions. Hematology oncology following the patient -Due to complex social dynamics/finances social work is having difficulties finding patient placement. torpedo worker is working with [employer]/court system to hopefully find appropriate placement but unfortunately they has been no resolution at this time in regards to placement. Continue rest of treatment for now Objective - Vital Signs Vital signs: Vital Signs Temp 97.5 F L 03/25/23 06:55 Pulse 70 03/25/23 06:55 Resp 16 03/25/23 06:55 BP 133/72 03/25/23 06:55 Pulse Ox 97 03/25/23 02:19 FiO2 21 03/06/23 07:34 Intake & Output 03/24/23 03/25/23 03/25/23 18:59 06:59 18:59 Intake Total 1260 Output Total 802 600 Balance 458 -600 Intake: Intake, IV Titration 900 Amount Sodium Chloride 0.9% 1, 900 000 ml @ 75 mls/hr IV . [id number] [facility] Rx#:[id number] Oral 360 Output: Urine 800 600 Stool 2 Other: Voiding Method Indwelling Catheter Indwelling Catheter Indwelling Catheter # Bowel Movements 0 - Labs CBC & Chem 7: 03/20/23 06:01 03/20/23 06:01 Labs: Abnormal Lab Results - Last 24 Hours (Table) 03/24/23 03/24/23 03/24/23 Range/Units 11:47 17:11 19:46 POC Glucose (mg/dL) 143 H 157 H 370 H (70-110) mg/dL 03/25/23 Range/Units 02:10 POC Glucose (mg/dL) 206 H (70-110) mg/dL
[2023-03-25] MEDS: ALPRAZolam 0.25 MG TAB PO PRN ×2 (14:35→20:40)
[2023-03-25 17:18] LABS: Glucose,Whole Blood 172 mg/dL (70-110)
[2023-03-25] MEDS: HYDROcodone/APAP 5-325MG 1 EACH TAB PO PRN (20:40)
[2023-03-25] MEDS: ATORVASTATIN 40 MG TAB PO SCH (20:41)
[2023-03-25 21:01] LABS: Glucose,Whole Blood 170 mg/dL (70-110)
[2023-03-25] MEDS: INSULIN DETEMIR (LEVEMIR) 100 UNIT/ML SYR SQ SCH (21:39)
[2023-03-26] MEDS: HEPARIN SODIUM,PORCINE/PF 5,000 UNIT/0.5 ML SYRINGE SQ SCH ×4 (00:24→23:32)
[2023-03-26] MEDS: SODIUM CHLORIDE 0.9% 1,000 ML IV SCH ×2 (00:25→23:32)
[2023-03-26 07:27] LABS: Glucose,Whole Blood 99 mg/dL (70-110)
[2023-03-26] MEDS: BUDESONIDE 0.5 MG/2 ML NEBU INHALATION SCH ×2 (07:38→20:46)
[2023-03-26] MEDS: IPRATROPIUM-ALBUTEROL 3 ML NEB INHALATION SCH ×3 (07:38→20:46)
[2023-03-26] MEDS: INSULIN ASPART (NovoLOG) 100 UNIT/ML VIAL SQ SCH ×3 (07:43→17:53)
[2023-03-26] MEDS: POTASSIUM CHLORIDE ER 20 MEQ TAB.ER PO SCH (09:58)
[2023-03-26] MEDS: TAMSULOSIN 0.4 MG CAP.ER.24H PO SCH (09:58)
[2023-03-26] MEDS: DULoxetine HCL 60 MG CAPSULE.DR PO SCH (09:58)
[2023-03-26] MEDS: METOPROLOL TARTRATE 50 MG TAB PO SCH ×2 (09:58→20:17)
[2023-03-26] MEDS: FENOFIBRATE 54 MG TAB PO SCH (09:59)
[2023-03-26] MEDS: MULTIVITAMINS, THERA 1 EACH TAB PO SCH (09:59)
[2023-03-26] MEDS: LOSARTAN 25 MG TAB PO SCH (09:59)
[2023-03-26] MEDS: ASPIRIN 81 MG PO SCH (09:59)
[2023-03-26] MEDS: PANTOPRAZOLE 40 MG TABLET PO SCH (09:59)
[2023-03-26] MEDS: amLODIPine 10 MG TAB PO SCH (09:59)
[2023-03-26] MEDS: DOCUSATE 100 MG CAP PO SCH ×2 (09:59→20:17)
[2023-03-26] MEDS: buPROPion SR 100 MG TABLET.ER PO SCH (09:59)
[2023-03-26 11:51] LABS: Glucose,Whole Blood 156 mg/dL (70-110)
--- NOTE | 2023-03-26 14:34 | P.PN ---
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 Dr. Garsia covering for Dr. Reynolds. Patient seen and examined. Does not look in acute distress. Currently tolerating diet. Went for radiation treatment today 03/25. Patient seen and examined. No acute issues overnight. Vital signs stable. Tolerating diet. 03/26. Patient seen and examined. Vital signs done this morning show tem perature 97.4, heart rate 68, respirations 16, blood pressure 142/70. No acute issues overnight. Vital signs stable REVIEW OF SYSTEMS: CONSTITUTIONAL: No fever, no malaise,. CARDIOVASCULAR: No chest pain, no palpitations, no syncope. PULMONARY: No shortness of breath, no cough, GASTROINTESTINAL: No diarrhea, no nausea, no vomiting, no abdominal pain. NEUROLOGICAL: No headaches, no weakness, PHYSICAL EXAMINATION: GENERAL: The patient is alert and oriented x3, not in any acute distress. Well developed, well nourished. HEENT: Pupils are round and equally reacting to light. EOMI. No scleral icterus. No conjunctival pallor. Normocephalic, atraumatic. No pharyngeal erythema. No thyromegaly. CARDIOVASCULAR: S1 and S2 present. No murmurs, rubs, or gallops. PULMONARY: Chest is clear to auscultation, no wheezing or crackles. ABDOMEN: Soft, nontender, nondistended, normoactive bowel sounds. No palpable organomegaly. MUSCULOSKELETAL: No joint swelling or deformity. EXTREMITIES: No cyanosis, clubbing, or pedal edema. NEUROLOGICAL: Gross neurological examination did not reveal any focal deficits. SKIN: No rashes. Assessment and plan Hodgkin's lymphoma UTI due to indwelling catheter Lymphocele of the neck. Improved Antral gastritis noted on EGD Cervical adenopathy History of prior CVA Monitor vital signs Monitor CBC Monitor CMP -PET scan revealed multiple left-sided neck lymph nodes which are enlarged with increased metabolic activity. Focal uptake near the wall of the cecum anteriorly which is indeterminate, SUV 5.0. General surgery consulted for evaluation for colonoscopy/EGD. EGD revealed midly inflamed antrum, biopsy negative for malignancy. Colonoscopy showed poor colon prep and evidence of diverticulosis, cecum appeared normal. Based on findings PET and EGD/colonoscopy, disease is localized to left neck and treatment at this time will consist of RT alone. Rad/onc following, plan for 15 fractions. Hematology oncology following the patient -Due to complex social dynamics/finances social work is having difficulties finding patient placement. printing table worker is working with [email or web address] system to hopefully find appropriate placement but unfortunately they has been no resolution at this time in regards to placement. Continue rest of treatment for now Dr. Reynolds will be taking care of this patient from tomorrow Objective - Vital Signs Vital signs: Vital Signs Temp 97.4 F L 03/26/23 07:22 Pulse 68 03/26/23 07:22 Resp 16 03/26/23 07:22 BP 142/75 03/26/23 07:22 Pulse Ox 98 03/26/23 07:22 FiO2 21 03/06/23 07:34 Intake & Output 03/25/23 03/26/23 03/26/23 18:59 06:59 18:59 Output Total 1700 2001 Balance -1699 -2001 Output: Urine 1700 1999 Stool 2 Other: Voiding Method Indwelling Catheter Indwelling Catheter # Bowel Movements 0 - Labs CBC & Chem 7: 03/20/23 06:01 03/20/23 06:01 Labs: Abnormal Lab Results - Last 24 Hours (Table) 03/25/23 03/25/23 03/25/23 Range/Units 11:44 17:16 20:58 POC Glucose (mg/dL) 193 H 172 H 170 H (70-110) mg/dL
[2023-03-26] MEDS: ALPRAZolam 0.25 MG TAB PO PRN ×2 (16:20→20:17)
[2023-03-26 17:21] LABS: Glucose,Whole Blood 236 mg/dL (70-110)
[2023-03-26 20:06] LABS: Glucose,Whole Blood 263 mg/dL (70-110)
[2023-03-26] MEDS: HYDROcodone/APAP 5-325MG 1 EACH TAB PO PRN (20:17)
[2023-03-26] MEDS: ATORVASTATIN 40 MG TAB PO SCH (20:17)
[2023-03-26] MEDS: INSULIN DETEMIR (LEVEMIR) 100 UNIT/ML SYR SQ SCH (20:49)
[2023-03-27 07:13] LABS: Glucose,Whole Blood 132 mg/dL (70-110)
[2023-03-27] MEDS: buPROPion SR 100 MG TABLET.ER PO SCH (08:45)
[2023-03-27] MEDS: POTASSIUM CHLORIDE ER 20 MEQ TAB.ER PO SCH (08:45)
[2023-03-27] MEDS: HEPARIN SODIUM,PORCINE/PF 5,000 UNIT/0.5 ML SYRINGE SQ SCH ×2 (08:45→18:08)
[2023-03-27] MEDS: LOSARTAN 25 MG TAB PO SCH (08:45)
[2023-03-27] MEDS: DULoxetine HCL 60 MG CAPSULE.DR PO SCH (08:45)
[2023-03-27] MEDS: DOCUSATE 100 MG CAP PO SCH ×2 (08:45→21:41)
[2023-03-27] MEDS: METOPROLOL TARTRATE 50 MG TAB PO SCH ×2 (08:45→21:41)
[2023-03-27] MEDS: amLODIPine 10 MG TAB PO SCH (08:45)
[2023-03-27] MEDS: MULTIVITAMINS, THERA 1 EACH TAB PO SCH (08:45)
[2023-03-27] MEDS: PANTOPRAZOLE 40 MG TABLET PO SCH (08:45)
[2023-03-27] MEDS: ASPIRIN 81 MG PO SCH (08:45)
[2023-03-27] MEDS: TAMSULOSIN 0.4 MG CAP.ER.24H PO SCH (08:45)
[2023-03-27] MEDS: FENOFIBRATE 54 MG TAB PO SCH (08:45)
[2023-03-27] MEDS: SODIUM CHLORIDE 0.9% 1,000 ML IV SCH ×2 (09:05→14:07)
[2023-03-27] MEDS: INSULIN ASPART (NovoLOG) 100 UNIT/ML VIAL SQ SCH ×3 (09:05→18:08)
[2023-03-27] MEDS: IPRATROPIUM-ALBUTEROL 3 ML NEB INHALATION SCH ×4 (09:54→20:56)
[2023-03-27] MEDS: BUDESONIDE 0.5 MG/2 ML NEBU INHALATION SCH ×2 (09:54→20:56)
[2023-03-27 11:52] LABS: Glucose,Whole Blood 186 mg/dL (70-110)
[2023-03-27 17:08] LABS: Glucose,Whole Blood 220 mg/dL (70-110)
[2023-03-27 20:17] LABS: Glucose,Whole Blood 211 mg/dL (70-110)
[2023-03-27] MEDS: ALPRAZolam 0.25 MG TAB PO PRN (21:39)
[2023-03-27] MEDS: HYDROcodone/APAP 5-325MG 1 EACH TAB PO PRN (21:39)
[2023-03-27] MEDS: ATORVASTATIN 40 MG TAB PO SCH (21:41)
[2023-03-27] MEDS: INSULIN DETEMIR (LEVEMIR) 100 UNIT/ML SYR SQ SCH (21:41)
[2023-03-28] MEDS: HEPARIN SODIUM,PORCINE/PF 5,000 UNIT/0.5 ML SYRINGE SQ SCH ×4 (01:03→23:04)
[2023-03-28] MEDS: SODIUM CHLORIDE 0.9% 1,000 ML IV SCH ×2 (03:18→19:35)
[2023-03-28 07:51] LABS: Glucose,Whole Blood 87 mg/dL (70-110)
[2023-03-28] MEDS: INSULIN ASPART (NovoLOG) 100 UNIT/ML VIAL SQ SCH ×3 (07:52→17:32)
[2023-03-28] MEDS: BUDESONIDE 0.5 MG/2 ML NEBU INHALATION SCH ×2 (08:06→21:17)
[2023-03-28] MEDS: IPRATROPIUM-ALBUTEROL 3 ML NEB INHALATION SCH ×4 (08:06→21:17)
[2023-03-28] MEDS: buPROPion SR 100 MG TABLET.ER PO SCH (09:06)
[2023-03-28] MEDS: amLODIPine 10 MG TAB PO SCH (09:07)
[2023-03-28] MEDS: ASPIRIN 81 MG PO SCH (09:07)
[2023-03-28] MEDS: DULoxetine HCL 60 MG CAPSULE.DR PO SCH (09:07)
[2023-03-28] MEDS: MULTIVITAMINS, THERA 1 EACH TAB PO SCH (09:07)
[2023-03-28] MEDS: METOPROLOL TARTRATE 50 MG TAB PO SCH ×2 (09:07→21:34)
[2023-03-28] MEDS: PANTOPRAZOLE 40 MG TABLET PO SCH (09:07)
[2023-03-28] MEDS: TAMSULOSIN 0.4 MG CAP.ER.24H PO SCH (09:07)
[2023-03-28] MEDS: DOCUSATE 100 MG CAP PO SCH ×2 (09:07→21:33)
[2023-03-28] MEDS: FENOFIBRATE 54 MG TAB PO SCH (09:07)
[2023-03-28] MEDS: POTASSIUM CHLORIDE ER 20 MEQ TAB.ER PO SCH (09:07)
[2023-03-28] MEDS: LOSARTAN 25 MG TAB PO SCH (09:07)
[2023-03-28 11:58] LABS: Glucose,Whole Blood 166 mg/dL (70-110)
[2023-03-28 17:14] LABS: Glucose,Whole Blood 165 mg/dL (70-110)
[2023-03-28 20:09] LABS: Glucose,Whole Blood 220 mg/dL (70-110)
[2023-03-28] MEDS: INSULIN DETEMIR (LEVEMIR) 100 UNIT/ML SYR SQ SCH (21:32)
[2023-03-28] MEDS: HYDROcodone/APAP 5-325MG 1 EACH TAB PO PRN (21:32)
[2023-03-28] MEDS: ALPRAZolam 0.25 MG TAB PO PRN (21:32)
[2023-03-28] MEDS: ATORVASTATIN 40 MG TAB PO SCH (21:33)
--- NOTE | 2023-03-28 21:45 | PN ---
PROGRESS NOTE SUBJECTIVE: A 67-year-old white male, says he might be going to [facility] soon. His diet is improving. He is breathing better. He is alert. His sugars have been reviewed. I discussed with him a voiding trial to try to remove his Dillard catheter. He is on BPH medicines. We will try to remove his Dillard catheter tonight. OBJECTIVE: VITAL SIGNS: Reviewed. CARDIOVASCULAR: S1 and S2. LUNGS: Clear. PSYCHIATRIC: Alert and oriented x3. NEUROLOGIC: Cranial nerves are intact. Mild weakness to his lower extremities on the left side. : Has a Dillard catheter in place, clean urine. PLAN: We are going to remove his Dillard catheter, get a voiding trial, continue to wait for discharge planning. PROGNOSIS: Guarded. MMODL / IJN: [id number] /
[2023-03-29] MEDS: SODIUM CHLORIDE 0.9% 1,000 ML IV SCH ×3 (06:19→23:14)
[2023-03-29 07:42] LABS: Glucose,Whole Blood 107 mg/dL (70-110)
[2023-03-29] MEDS: INSULIN ASPART (NovoLOG) 100 UNIT/ML VIAL SQ SCH ×3 (07:46→17:38)
[2023-03-29] MEDS: LOSARTAN 25 MG TAB PO SCH (08:33)
[2023-03-29] MEDS: MULTIVITAMINS, THERA 1 EACH TAB PO SCH (08:33)
[2023-03-29] MEDS: TAMSULOSIN 0.4 MG CAP.ER.24H PO SCH (08:33)
[2023-03-29] MEDS: buPROPion SR 100 MG TABLET.ER PO SCH (08:33)
[2023-03-29] MEDS: ASPIRIN 81 MG PO SCH (08:33)
[2023-03-29] MEDS: PANTOPRAZOLE 40 MG TABLET PO SCH (08:33)
[2023-03-29] MEDS: DULoxetine HCL 60 MG CAPSULE.DR PO SCH (08:33)
[2023-03-29] MEDS: amLODIPine 10 MG TAB PO SCH (08:33)
[2023-03-29] MEDS: METOPROLOL TARTRATE 50 MG TAB PO SCH ×2 (08:33→20:43)
[2023-03-29] MEDS: DOCUSATE 100 MG CAP PO SCH ×2 (08:33→20:43)
[2023-03-29] MEDS: POTASSIUM CHLORIDE ER 20 MEQ TAB.ER PO SCH (08:33)
[2023-03-29] MEDS: FENOFIBRATE 54 MG TAB PO SCH (08:33)
[2023-03-29] MEDS: HEPARIN SODIUM,PORCINE/PF 5,000 UNIT/0.5 ML SYRINGE SQ SCH ×3 (08:34→23:14)
[2023-03-29] MEDS: IPRATROPIUM-ALBUTEROL 3 ML NEB INHALATION SCH ×4 (08:53→21:00)
[2023-03-29] MEDS: BUDESONIDE 0.5 MG/2 ML NEBU INHALATION SCH ×2 (08:53→21:00)
[2023-03-29 12:20] LABS: Glucose,Whole Blood 226 mg/dL (70-110)
[2023-03-29 17:32] LABS: Glucose,Whole Blood 138 mg/dL (70-110)
[2023-03-29 20:19] LABS: Glucose,Whole Blood 169 mg/dL (70-110)
[2023-03-29] MEDS: ALPRAZolam 0.25 MG TAB PO PRN (20:43)
[2023-03-29] MEDS: ATORVASTATIN 40 MG TAB PO SCH (20:43)
[2023-03-29] MEDS: INSULIN DETEMIR (LEVEMIR) 100 UNIT/ML SYR SQ SCH (20:43)
--- NOTE | 2023-03-29 21:51 | PN ---
PROGRESS NOTE SUBJECTIVE: He still remain on his NovoLog and Levemir for his insulin. He is on day 01/14 for his radiation. They started here in the hospital since they cannot find him a place to go and live. OBJECTIVE: GENERAL: He is breathing better. He is stable. VITAL SIGNS: Temp 97.5, blood pressure 135/69, o2 is 98 on room air. Sugars in the mid 100s. CARDIOVASCULAR: , s1-s2 lungs transmitted upper sounds. psych: fair mood and affect. NEUROLOGIC: Alert and orient x3. ASSESSMENT: Insulin-dependent diabetes mellitus, prior tracheostomy, status post cellulitis of the extremities and his neck, dyslipidemia, history of prior CVA with some mild weakness in his right side, which is improved a little bit. hypertension. Continue BPH to a voiding trial off his Dillard with Flomax. Continue with radiation while he is here in the hospital. Wait for discharge planning . MMODL / IJN: [id number] /
[2023-03-30] MEDS: DOCUSATE 100 MG CAP PO SCH ×2 (07:11→21:23)
[2023-03-30 07:37] LABS: Glucose,Whole Blood 91 mg/dL (70-110)
[2023-03-30] MEDS: FENOFIBRATE 54 MG TAB PO SCH (07:39)
[2023-03-30] MEDS: INSULIN ASPART (NovoLOG) 100 UNIT/ML VIAL SQ SCH ×3 (07:45→18:26)
[2023-03-30] MEDS: BUDESONIDE 0.5 MG/2 ML NEBU INHALATION SCH ×2 (08:58→20:30)
[2023-03-30] MEDS: IPRATROPIUM-ALBUTEROL 3 ML NEB INHALATION SCH ×4 (08:58→20:31)
[2023-03-30] MEDS: buPROPion SR 100 MG TABLET.ER PO SCH (09:06)
[2023-03-30] MEDS: DULoxetine HCL 60 MG CAPSULE.DR PO SCH (09:06)
[2023-03-30] MEDS: POTASSIUM CHLORIDE ER 20 MEQ TAB.ER PO SCH (09:06)
[2023-03-30] MEDS: LOSARTAN 25 MG TAB PO SCH (09:06)
[2023-03-30] MEDS: TAMSULOSIN 0.4 MG CAP.ER.24H PO SCH (09:06)
[2023-03-30] MEDS: HEPARIN SODIUM,PORCINE/PF 5,000 UNIT/0.5 ML SYRINGE SQ SCH ×3 (09:06→23:40)
[2023-03-30] MEDS: ASPIRIN 81 MG PO SCH (09:07)
[2023-03-30] MEDS: MULTIVITAMINS, THERA 1 EACH TAB PO SCH (09:07)
[2023-03-30] MEDS: METOPROLOL TARTRATE 50 MG TAB PO SCH ×3 (09:07→21:25)
[2023-03-30] MEDS: PANTOPRAZOLE 40 MG TABLET PO SCH (09:07)
[2023-03-30] MEDS: amLODIPine 10 MG TAB PO SCH (09:07)
[2023-03-30 11:55] LABS: Glucose,Whole Blood 171 mg/dL (70-110)
[2023-03-30] MEDS: DIPHENOX-ATROP 2.5-0.025 MG 1 EACH TAB PO PRN ×2 (12:17→23:39)
[2023-03-30] MEDS: ALPRAZolam 0.25 MG TAB PO PRN ×2 (16:40→21:22)
[2023-03-30 17:16] LABS: Glucose,Whole Blood 181 mg/dL (70-110)
[2023-03-30 21:00] LABS: Glucose,Whole Blood 147 mg/dL (70-110)
[2023-03-30] MEDS: ATORVASTATIN 40 MG TAB PO SCH (21:22)
[2023-03-30] MEDS: INSULIN DETEMIR (LEVEMIR) 100 UNIT/ML SYR SQ SCH (21:23)
[2023-03-30] MEDS: SODIUM CHLORIDE 0.9% 1,000 ML IV SCH (21:26)
[2023-03-31 07:15] LABS: Glucose,Whole Blood 118 mg/dL (70-110)
[2023-03-31] MEDS: INSULIN ASPART (NovoLOG) 100 UNIT/ML VIAL SQ SCH ×3 (07:49→17:38)
[2023-03-31] MEDS: IPRATROPIUM-ALBUTEROL 3 ML NEB INHALATION SCH ×4 (08:21→20:18)
[2023-03-31] MEDS: BUDESONIDE 0.5 MG/2 ML NEBU INHALATION SCH ×2 (08:21→20:18)
[2023-03-31] MEDS: LOSARTAN 25 MG TAB PO SCH (09:21)
[2023-03-31] MEDS: buPROPion SR 100 MG TABLET.ER PO SCH (09:21)
[2023-03-31] MEDS: MULTIVITAMINS, THERA 1 EACH TAB PO SCH (09:21)
[2023-03-31] MEDS: POTASSIUM CHLORIDE ER 20 MEQ TAB.ER PO SCH (09:21)
[2023-03-31] MEDS: TAMSULOSIN 0.4 MG CAP.ER.24H PO SCH (09:21)
[2023-03-31] MEDS: PANTOPRAZOLE 40 MG TABLET PO SCH (09:21)
[2023-03-31] MEDS: ASPIRIN 81 MG PO SCH (09:21)
[2023-03-31] MEDS: amLODIPine 10 MG TAB PO SCH (09:21)
[2023-03-31] MEDS: METOPROLOL TARTRATE 50 MG TAB PO SCH ×2 (09:21→22:03)
[2023-03-31] MEDS: HEPARIN SODIUM,PORCINE/PF 5,000 UNIT/0.5 ML SYRINGE SQ SCH ×2 (09:22→17:40)
[2023-03-31] MEDS: DULoxetine HCL 60 MG CAPSULE.DR PO SCH (09:22)
[2023-03-31] MEDS: DOCUSATE 100 MG CAP PO SCH ×2 (09:22→22:03)
[2023-03-31] MEDS: FENOFIBRATE 54 MG TAB PO SCH (10:06)
[2023-03-31 11:58] LABS: Glucose,Whole Blood 162 mg/dL (70-110)
[2023-03-31] MEDS: SODIUM CHLORIDE 0.9% 1,000 ML IV SCH (13:12)
[2023-03-31 17:24] LABS: Glucose,Whole Blood 145 mg/dL (70-110)
[2023-03-31 20:12] LABS: Glucose,Whole Blood 229 mg/dL (70-110)
--- NOTE | 2023-03-31 22:00 | PN ---
PROGRESS NOTE SUBJECTIVE: This is a 67-year-old white male. He is on Norvasc, Lipitor, Pulmicort, Wellbutrin, pneumonia, Cymbalta, Levemir , NovoLog, Cozaar, Lopressor , Protonix, potassium, and Flomax. OBJECTIVE: VITAL SIGNS: Temperature is 97 to 98, pulse 60s to 70s, respiratory rate 16 to 18, blood pressure 120 to 135 over 70 to 73, and O2 97 to 99 on room air. CARDIOVASCULAR, S1 , S2. LUNGS: Clear. GI: Soft. HEMATOLOGY: Negative for Homans. PSYCH: Fair mood and affect. MUSCULOSKELETAL: Right-sided weakness, about 50%. PLAN: Continue current treatment with his radiation for his Hodgkin lymphoma. He has to his radiation, he is always waiting for an outpatient place to go to, they cannot find him a bed. He is here for 40+ days. Cranial nerves are intact. We had Dillard catheter out with the urine trial. His neck swelling is improved with radiation. Continue current treatment for his cervical adenopathy. His history of prior CVA, UTI secondary to indwelling catheter, Hodgkin lymphoma. Prognosis is guarded. COPD, PET scan was done. Multiple left-sided lymph nodes, enlarging. Increased metabolic activity. Focal uptake to the wall of the cecum anteriorly. Surgical consult for evaluation of EGD colonoscopy was negative of the biopsy for malignancy. No cecum masses. Continue radiation treatments ,15 fractions of these on around 8 now. Prognosis is guarded. Wait for discharge planning. MMODL / IJN: [id number] /
[2023-03-31] MEDS: ALPRAZolam 0.25 MG TAB PO PRN (22:02)
[2023-03-31] MEDS: ATORVASTATIN 40 MG TAB PO SCH (22:03)
[2023-03-31] MEDS: INSULIN DETEMIR (LEVEMIR) 100 UNIT/ML SYR SQ SCH (22:03)
[2023-04-01] MEDS: HEPARIN SODIUM,PORCINE/PF 5,000 UNIT/0.5 ML SYRINGE SQ SCH ×4 (00:52→23:10)
[2023-04-01] MEDS: SODIUM CHLORIDE 0.9% 1,000 ML IV SCH ×3 (03:41→21:58)
[2023-04-01] MEDS: DIPHENOX-ATROP 2.5-0.025 MG 1 EACH TAB PO PRN ×2 (03:59→11:29)
[2023-04-01 07:44] LABS: Glucose,Whole Blood 64 mg/dL (70-110)
[2023-04-01 08:02] LABS: Glucose,Whole Blood 101 mg/dL (70-110)
[2023-04-01] MEDS: INSULIN ASPART (NovoLOG) 100 UNIT/ML VIAL SQ SCH ×3 (08:06→18:09)
[2023-04-01] MEDS: IPRATROPIUM-ALBUTEROL 3 ML NEB INHALATION SCH ×4 (08:42→20:38)
[2023-04-01] MEDS: BUDESONIDE 0.5 MG/2 ML NEBU INHALATION SCH ×2 (08:42→20:38)
[2023-04-01] MEDS: PANTOPRAZOLE 40 MG TABLET PO SCH (09:45)
[2023-04-01] MEDS: ASPIRIN 81 MG PO SCH (09:45)
[2023-04-01] MEDS: FENOFIBRATE 54 MG TAB PO SCH (09:45)
[2023-04-01] MEDS: MULTIVITAMINS, THERA 1 EACH TAB PO SCH (09:45)
[2023-04-01] MEDS: LOSARTAN 25 MG TAB PO SCH (09:45)
[2023-04-01] MEDS: buPROPion SR 100 MG TABLET.ER PO SCH (09:45)
[2023-04-01] MEDS: METOPROLOL TARTRATE 50 MG TAB PO SCH ×2 (09:45→19:59)
[2023-04-01] MEDS: amLODIPine 10 MG TAB PO SCH (09:45)
[2023-04-01] MEDS: DULoxetine HCL 60 MG CAPSULE.DR PO SCH (09:45)
[2023-04-01] MEDS: TAMSULOSIN 0.4 MG CAP.ER.24H PO SCH (09:45)
[2023-04-01] MEDS: POTASSIUM CHLORIDE ER 20 MEQ TAB.ER PO SCH (09:45)
[2023-04-01] MEDS: DOCUSATE 100 MG CAP PO SCH ×2 (09:45→19:59)
[2023-04-01 11:59] LABS: Glucose,Whole Blood 202 mg/dL (70-110)
[2023-04-01 17:37] LABS: Glucose,Whole Blood 206 mg/dL (70-110)
[2023-04-01] MEDS: ATORVASTATIN 40 MG TAB PO SCH (19:59)
[2023-04-01] MEDS: INSULIN DETEMIR (LEVEMIR) 100 UNIT/ML SYR SQ SCH (19:59)
[2023-04-01 20:15] LABS: Glucose,Whole Blood 259 mg/dL (70-110)
[2023-04-01] MEDS: ALPRAZolam 0.25 MG TAB PO PRN (21:19)
[2023-04-02 07:11] LABS: Glucose,Whole Blood 128 mg/dL (70-110)
[2023-04-02] MEDS: INSULIN ASPART (NovoLOG) 100 UNIT/ML VIAL SQ SCH ×3 (07:46→17:45)
[2023-04-02] MEDS: IPRATROPIUM-ALBUTEROL 3 ML NEB INHALATION SCH ×4 (08:01→19:13)
[2023-04-02] MEDS: BUDESONIDE 0.5 MG/2 ML NEBU INHALATION SCH ×2 (08:01→19:13)
[2023-04-02] MEDS: ASPIRIN 81 MG PO SCH (10:35)
[2023-04-02] MEDS: amLODIPine 10 MG TAB PO SCH (10:35)
[2023-04-02] MEDS: HEPARIN SODIUM,PORCINE/PF 5,000 UNIT/0.5 ML SYRINGE SQ SCH ×2 (10:35→17:45)
[2023-04-02] MEDS: PANTOPRAZOLE 40 MG TABLET PO SCH (10:35)
[2023-04-02] MEDS: DOCUSATE 100 MG CAP PO SCH ×2 (10:36→21:52)
[2023-04-02] MEDS: DULoxetine HCL 60 MG CAPSULE.DR PO SCH (10:36)
[2023-04-02] MEDS: buPROPion SR 100 MG TABLET.ER PO SCH (10:36)
[2023-04-02] MEDS: FENOFIBRATE 54 MG TAB PO SCH (10:36)
[2023-04-02] MEDS: TAMSULOSIN 0.4 MG CAP.ER.24H PO SCH (10:37)
[2023-04-02] MEDS: METOPROLOL TARTRATE 50 MG TAB PO SCH ×2 (10:37→21:51)
[2023-04-02] MEDS: LOSARTAN 25 MG TAB PO SCH (10:37)
[2023-04-02] MEDS: POTASSIUM CHLORIDE ER 20 MEQ TAB.ER PO SCH (10:37)
[2023-04-02] MEDS: MULTIVITAMINS, THERA 1 EACH TAB PO SCH (10:37)
[2023-04-02] MEDS: ALPRAZolam 0.25 MG TAB PO PRN (10:38)
[2023-04-02 12:05] LABS: Glucose,Whole Blood 170 mg/dL (70-110)
[2023-04-02 17:17] LABS: Glucose,Whole Blood 232 mg/dL (70-110)
[2023-04-02] MEDS: SODIUM CHLORIDE 0.9% 1,000 ML IV SCH (17:45)
[2023-04-02 18:27] LABS: Glucose,Whole Blood 202 mg/dL (70-110)
[2023-04-02 20:27] LABS: Glucose,Whole Blood 290 mg/dL (70-110)
[2023-04-02] MEDS: INSULIN DETEMIR (LEVEMIR) 100 UNIT/ML SYR SQ SCH (21:50)
[2023-04-02] MEDS: ATORVASTATIN 40 MG TAB PO SCH (21:51)
--- NOTE | 2023-04-02 22:36 | PN ---
PROGRESS NOTE SUBJECTIVE: A 67-year-old white male. Temperature is 98, blood pressure is 117/75, 97% on room air. He has I think 9 more treatments for his radiation that he is getting daily while in the hospital for his Hodgkin lymphoma. He is still in the hospital due to inability to have any place to take him as the patient is pending court. All kinds of social workers have been trying to finding him a place to live. He has nowhere to live, nobody take care of him. He has had a previous stroke. He has right-sided weakness. He can't get out of bed much. He needs help. His sugars are in the low 100s to 200s. OBJECTIVE: VITAL SIGNS: Appear to be stable. GENERAL: He has given appropriate answers. NECK: The swelling on the left side of his neck with radiation is greatly reduced. CARDIOVASCULAR: S1, S2. LUNGS: Clear. ABDOMEN: Soft. ASSESSMENT: Condition stable. Prognosis is guarded. Wait for further treatments per radiation and discharge planning. Continue his insulin medications for diabetes, which appears to be under decent control. Prognosis guarded. MMODL / IJN: [id number] /
[2023-04-03] MEDS: HEPARIN SODIUM,PORCINE/PF 5,000 UNIT/0.5 ML SYRINGE SQ SCH ×4 (00:06→23:55)
[2023-04-03] MEDS: SODIUM CHLORIDE 0.9% 1,000 ML IV SCH ×3 (05:46→20:34)
[2023-04-03 07:14] LABS: Glucose,Whole Blood 144 mg/dL (70-110)
[2023-04-03] MEDS: INSULIN ASPART (NovoLOG) 100 UNIT/ML VIAL SQ SCH ×3 (07:53→17:46)
[2023-04-03] MEDS: DULoxetine HCL 60 MG CAPSULE.DR PO SCH (08:32)
[2023-04-03] MEDS: TAMSULOSIN 0.4 MG CAP.ER.24H PO SCH (08:32)
[2023-04-03] MEDS: DOCUSATE 100 MG CAP PO SCH ×2 (08:32→20:34)
[2023-04-03] MEDS: ASPIRIN 81 MG PO SCH (08:32)
[2023-04-03] MEDS: FENOFIBRATE 54 MG TAB PO SCH (08:33)
[2023-04-03] MEDS: MULTIVITAMINS, THERA 1 EACH TAB PO SCH (08:33)
[2023-04-03] MEDS: buPROPion SR 100 MG TABLET.ER PO SCH (08:33)
[2023-04-03] MEDS: POTASSIUM CHLORIDE ER 20 MEQ TAB.ER PO SCH (08:33)
[2023-04-03] MEDS: METOPROLOL TARTRATE 50 MG TAB PO SCH ×2 (08:33→20:34)
[2023-04-03] MEDS: LOSARTAN 25 MG TAB PO SCH (08:33)
[2023-04-03] MEDS: amLODIPine 10 MG TAB PO SCH (08:33)
[2023-04-03] MEDS: PANTOPRAZOLE 40 MG TABLET PO SCH (08:48)
[2023-04-03] MEDS: IPRATROPIUM-ALBUTEROL 3 ML NEB INHALATION SCH ×4 (09:03→19:27)
[2023-04-03] MEDS: BUDESONIDE 0.5 MG/2 ML NEBU INHALATION SCH ×2 (09:03→19:27)
[2023-04-03] MEDS: ALPRAZolam 0.25 MG TAB PO PRN ×2 (10:42→20:34)
[2023-04-03 12:02] LABS: Glucose,Whole Blood 152 mg/dL (70-110)
[2023-04-03 17:28] LABS: Glucose,Whole Blood 209 mg/dL (70-110)
[2023-04-03 20:34] LABS: Glucose,Whole Blood 262 mg/dL (70-110)
[2023-04-03] MEDS: INSULIN DETEMIR (LEVEMIR) 100 UNIT/ML SYR SQ SCH (20:34)
[2023-04-03] MEDS: ATORVASTATIN 40 MG TAB PO SCH (20:34)
--- NOTE | 2023-04-03 23:34 | P.PN ---
Progress Note - Text Progress Note Date: 04/03/23 I'm rounding for Dr. Nima Reynolds. 04/03/2023: Laying in bed. Comfortable. Eating well. Able to answer questions. Active Medications Albuterol/Ipratropium (Ipratropium-Albuterol 3 Ml Neb) 3 ml INHALATION RT-QID [facility] Last Admin: 04/03/23 19:27 Dose: Not Given Alprazolam (Alprazolam 0.25 Mg Tab) 0.25 mg PO TID PRN PRN Reason: Anxiety Last Admin: 04/03/23 20:34 Dose: 0.25 mg Amlodipine Besylate (Amlodipine 10 Mg Tab) 10 mg PO DAILY [facility] Last Admin: 04/03/23 08:33 Dose: 10 mg Aspirin (Aspirin 81 Mg) 81 mg PO DAILY [facility] Last Admin: 04/03/23 08:32 Dose: 81 mg Atorvastatin Calcium (Atorvastatin 40 Mg Tab) 40 mg PO HS [facility] Last Admin: 04/03/23 20:34 Dose: 40 mg Budesonide (Budesonide 0.5 Mg/2 Ml Nebu) 0.5 mg INHALATION RT-BID [facility] Last Admin: 04/03/23 19:27 Dose: Not Given Bupropion HCl (Bupropion Sr 100 Mg Tablet.Er) 100 mg PO DAILY [facility] Last Admin: 04/03/23 08:33 Dose: 100 mg Dextrose/Water (Dextrose 50% Syringe 50 Ml) 25 ml IVP PER PROTOCOL PRN; Protocol PRN Reason: Hypoglycemia Last Admin: 03/20/23 07:40 Dose: 25 ml Dextrose/Water (Dextrose 50% Syringe 50 Ml) 50 ml IVP PER PROTOCOL PRN; Protocol PRN Reason: Hypoglycemia Diphenoxylate HCl/Atropine (Diphenox-Atrop 2.5-0.025 Mg 1 Each Tab) 2 each PO Q6HR PRN PRN Reason: Diarrhea Last Admin: 04/01/23 11:29 Dose: 2 each Docusate Sodium (Docusate 100 Mg Cap) 100 mg PO BID [facility] Last Admin: 04/03/23 20:34 Dose: 100 mg Duloxetine HCl (Duloxetine Hcl 60 Mg Capsule.Dr) 60 mg PO DAILY [facility] Last Admin: 04/03/23 08:32 Dose: 60 mg Fenofibrate (Fenofibrate 54 Mg Tab) 54 mg PO DAILY [facility] Last Admin: 04/03/23 08:33 Dose: 54 mg Heparin Sodium (Porcine) (Heparin Sodium,Porcine/Pf 5,000 Unit/0.5 Ml Syringe) 5,000 unit SQ Q8HR [facility] Last Admin: 04/03/23 16:24 Dose: 5,000 unit Sodium Chloride (Saline 0.9%) 1,000 mls @ 75 mls/hr IV .[id number] [facility] Last Admin: 04/03/23 20:34 Dose: Not Given Insulin Aspart (Insulin Aspart (Novolog) 100 Unit/Ml Vial) 0 unit SQ AC-TID [facility]; Protocol Last Admin: 04/03/23 17:46 Dose: 4 unit Insulin Detemir (Insulin Detemir (Levemir) 100 Unit/Ml Syr) 16 unit SQ HS [facility] Last Admin: 04/03/23 20:34 Dose: 16 unit Losartan Potassium (Losartan 25 Mg Tab) 25 mg PO DAILY [facility] Last Admin: 04/03/23 08:33 Dose: 25 mg Metoprolol Tartrate (Metoprolol Tartrate 50 Mg Tab) 50 mg PO BID [facility] Last Admin: 04/03/23 20:34 Dose: 50 mg Multivitamins (Multivitamins, Thera 1 Each Tab) 1 each PO DAILY [facility] Last Admin: 04/03/23 08:33 Dose: 1 each Naloxone HCl (Naloxone 0.4 Mg/Ml 1 Ml Vial) 0.2 mg IV Q2M PRN PRN Reason: Opioid Reversal Pantoprazole Sodium (Pantoprazole 40 Mg Tablet) 40 mg PO AC-BRKFST [facility] Last Admin: 04/03/23 08:48 Dose: 40 mg Potassium Chloride (Potassium Chloride Er 20 Meq Tab.Er) 20 meq PO DAILY [facility] Last Admin: 04/03/23 08:33 Dose: 20 meq Tamsulosin HCl (Tamsulosin 0.4 Mg Cap.Er.24h) 0.4 mg PO DAILY [facility] Last Admin: 04/03/23 08:32 Dose: 0.4 mg On examination: VITAL SIGNS: 98.3, 68, 16, 120/66, 99% room air GENERAL APPEARANCE: Laying in bed, awake, comfortable HEENT: Normal external appearance of nose and ear. Oral cavity normal EYES: Pupils equal. Conjunctiva normal. NECK: JVD not raised. Mass not palpable. RESPIRATORY: Respiratory effort normal. Lungs clear to auscultation. CARDIOVASCULAR: First and second sounds normal. No edema. ABDOMEN: Soft. Liver and spleen not palpable. No tenderness. No mass palpable. NEUROLOGICAL: Right arm paresis. Movement in both legs PSYCHIATRY: Answering questions appropriately. Place, year, person, INVESTIGATIONS, reviewed in the clinical context: Accu-Cheks noted Assessment and plan: -R Arm paresis from a prior stroke -Chronic lower extremity paresis -Acute cellulitis of previous tracheostomy site. Better Nystatin cream. Doxycycline course completed -CAD with stent -Diabetes mellitus type 2, chronically on insulin -Essential hypertension -Primary osteoarthritis -Depression -Chronic medical debility Continue current medication treatment plan. Discharge planning the looking into placement. Current medications reviewed.
[2023-04-04] MEDS: SODIUM CHLORIDE 0.9% 1,000 ML IV SCH (06:21)
[2023-04-04 07:37] LABS: Glucose,Whole Blood 74 mg/dL (70-110)
[2023-04-04] MEDS: INSULIN ASPART (NovoLOG) 100 UNIT/ML VIAL SQ SCH ×3 (08:02→18:26)
[2023-04-04] MEDS: IPRATROPIUM-ALBUTEROL 3 ML NEB INHALATION SCH ×4 (08:44→20:37)
[2023-04-04] MEDS: BUDESONIDE 0.5 MG/2 ML NEBU INHALATION SCH ×2 (08:44→20:37)
[2023-04-04] MEDS: HEPARIN SODIUM,PORCINE/PF 5,000 UNIT/0.5 ML SYRINGE SQ SCH ×3 (10:10→23:12)
[2023-04-04] MEDS: buPROPion SR 100 MG TABLET.ER PO SCH (10:11)
[2023-04-04] MEDS: amLODIPine 10 MG TAB PO SCH (10:11)
[2023-04-04] MEDS: DOCUSATE 100 MG CAP PO SCH ×2 (10:11→20:55)
[2023-04-04] MEDS: ASPIRIN 81 MG PO SCH (10:11)
[2023-04-04] MEDS: POTASSIUM CHLORIDE ER 20 MEQ TAB.ER PO SCH (10:12)
[2023-04-04] MEDS: METOPROLOL TARTRATE 50 MG TAB PO SCH ×2 (10:12→20:55)
[2023-04-04] MEDS: LOSARTAN 25 MG TAB PO SCH (10:12)
[2023-04-04] MEDS: DULoxetine HCL 60 MG CAPSULE.DR PO SCH (10:12)
[2023-04-04] MEDS: MULTIVITAMINS, THERA 1 EACH TAB PO SCH (10:12)
[2023-04-04] MEDS: TAMSULOSIN 0.4 MG CAP.ER.24H PO SCH (10:12)
[2023-04-04] MEDS: FENOFIBRATE 54 MG TAB PO SCH (10:12)
[2023-04-04 11:59] LABS: Glucose,Whole Blood 191 mg/dL (70-110)
[2023-04-04] MEDS: PANTOPRAZOLE 40 MG TABLET PO SCH (12:32)
[2023-04-04 17:05] LABS: Glucose,Whole Blood 201 mg/dL (70-110)
[2023-04-04 20:43] LABS: Glucose,Whole Blood 268 mg/dL (70-110)
[2023-04-04] MEDS: ALPRAZolam 0.25 MG TAB PO PRN (20:55)
[2023-04-04] MEDS: INSULIN DETEMIR (LEVEMIR) 100 UNIT/ML SYR SQ SCH (20:55)
[2023-04-04] MEDS: ATORVASTATIN 40 MG TAB PO SCH (20:55)
--- NOTE | 2023-04-04 21:28 | P.PN ---
Progress Note - Text Progress Note Date: 04/04/23 I'm rounding for Dr. Nima Reynolds. 04/03/2023: Laying in bed. Comfortable. Eating well. Able to answer questions. April 04: Laying in bed. Comfortable. Oral intake good. Active Medications Albuterol/Ipratropium (Ipratropium-Albuterol 3 Ml Neb) 3 ml INHALATION RT-QID [facility] Last Admin: 04/04/23 20:37 Dose: Not Given Alprazolam (Alprazolam 0.25 Mg Tab) 0.25 mg PO TID PRN PRN Reason: Anxiety Last Admin: 04/04/23 20:55 Dose: 0.25 mg Amlodipine Besylate (Amlodipine 10 Mg Tab) 10 mg PO DAILY [facility] Last Admin: 04/04/23 10:11 Dose: 10 mg Aspirin (Aspirin 81 Mg) 81 mg PO DAILY [facility] Last Admin: 04/04/23 10:11 Dose: 81 mg Atorvastatin Calcium (Atorvastatin 40 Mg Tab) 40 mg PO HS [facility] Last Admin: 04/04/23 20:55 Dose: 40 mg Budesonide (Budesonide 0.5 Mg/2 Ml Nebu) 0.5 mg INHALATION RT-BID [facility] Last Admin: 04/04/23 20:37 Dose: Not Given Bupropion HCl (Bupropion Sr 100 Mg Tablet.Er) 100 mg PO DAILY [facility] Last Admin: 04/04/23 10:11 Dose: 100 mg Dextrose/Water (Dextrose 50% Syringe 50 Ml) 25 ml IVP PER PROTOCOL PRN; Protocol PRN Reason: Hypoglycemia Last Admin: 03/20/23 07:40 Dose: 25 ml Dextrose/Water (Dextrose 50% Syringe 50 Ml) 50 ml IVP PER PROTOCOL PRN; Protocol PRN Reason: Hypoglycemia Diphenoxylate HCl/Atropine (Diphenox-Atrop 2.5-0.025 Mg 1 Each Tab) 2 each PO Q6HR PRN PRN Reason: Diarrhea Last Admin: 04/01/23 11:29 Dose: 2 each Docusate Sodium (Docusate 100 Mg Cap) 100 mg PO BID [facility] Last Admin: 04/04/23 20:55 Dose: 100 mg Duloxetine HCl (Duloxetine Hcl 60 Mg Capsule.Dr) 60 mg PO DAILY [facility] Last Admin: 04/04/23 10:12 Dose: 60 mg Fenofibrate (Fenofibrate 54 Mg Tab) 54 mg PO DAILY [facility] Last Admin: 04/04/23 10:12 Dose: 54 mg Heparin Sodium (Porcine) (Heparin Sodium,Porcine/Pf 5,000 Unit/0.5 Ml Syringe) 5,000 unit SQ Q8HR [facility] Last Admin: 04/04/23 16:50 Dose: 5,000 unit Sodium Chloride (Saline 0.9%) 1,000 mls @ 75 mls/hr IV .[id number] [facility] Last Admin: 04/04/23 06:21 Dose: 75 mls/hr Insulin Aspart (Insulin Aspart (Novolog) 100 Unit/Ml Vial) 0 unit SQ AC-TID [facility]; Protocol Last Admin: 04/04/23 18:26 Dose: 4 unit Insulin Detemir (Insulin Detemir (Levemir) 100 Unit/Ml Syr) 16 unit SQ HS [facility] Last Admin: 04/04/23 20:55 Dose: 16 unit Losartan Potassium (Losartan 25 Mg Tab) 25 mg PO DAILY [facility] Last Admin: 04/04/23 10:12 Dose: 25 mg Metoprolol Tartrate (Metoprolol Tartrate 50 Mg Tab) 50 mg PO BID [facility] Last Admin: 04/04/23 20:55 Dose: 50 mg Multivitamins (Multivitamins, Thera 1 Each Tab) 1 each PO DAILY [facility] Last Admin: 04/04/23 10:12 Dose: 1 each Naloxone HCl (Naloxone 0.4 Mg/Ml 1 Ml Vial) 0.2 mg IV Q2M PRN PRN Reason: Opioid Reversal Pantoprazole Sodium (Pantoprazole 40 Mg Tablet) 40 mg PO AC-BRKFST [facility] Last Admin: 04/04/23 12:32 Dose: 40 mg Potassium Chloride (Potassium Chloride Er 20 Meq Tab.Er) 20 meq PO DAILY [facility] Last Admin: 04/04/23 10:12 Dose: 20 meq Tamsulosin HCl (Tamsulosin 0.4 Mg Cap.Er.24h) 0.4 mg PO DAILY [facility] Last Admin: 04/04/23 10:12 Dose: 0.4 mg On examination: VITAL SIGNS: 97.8, 84, 16, 174/79, 99% room air GENERAL APPEARANCE: Laying in bed, awake, comfortable HEENT: Normal external appearance of nose and ear. Oral cavity normal EYES: Pupils equal. Conjunctiva normal. NECK: JVD not raised. Mass not palpable. RESPIRATORY: Respiratory effort normal. Lungs clear to auscultation. CARDIOVASCULAR: First and second sounds normal. No edema. ABDOMEN: Soft. Liver and spleen not palpable. No tenderness. No mass palpable. NEUROLOGICAL: Right arm paresis. Movement in both legs PSYCHIATRY: Answering questions appropriately. Place, year, person, INVESTIGATIONS, reviewed in the clinical context: Accu-Cheks noted Assessment and plan: -R Arm paresis from a prior stroke -Chronic lower extremity paresis -Acute cellulitis of previous tracheostomy site. Better Nystatin cream. Doxycycline course completed -CAD with stent -Diabetes mellitus type 2, chronically on insulin -Essential hypertension -Primary osteoarthritis -Depression -Chronic medical debility Continue current medication treatment plan. Discussed with patient.
[2023-04-05 07:42] LABS: Glucose,Whole Blood 99 mg/dL (70-110)
[2023-04-05] MEDS: INSULIN ASPART (NovoLOG) 100 UNIT/ML VIAL SQ SCH ×3 (07:48→18:19)
[2023-04-05] MEDS: IPRATROPIUM-ALBUTEROL 3 ML NEB INHALATION SCH ×4 (08:17→21:09)
[2023-04-05] MEDS: BUDESONIDE 0.5 MG/2 ML NEBU INHALATION SCH ×2 (08:17→21:09)
[2023-04-05] MEDS: POTASSIUM CHLORIDE ER 20 MEQ TAB.ER PO SCH (08:20)
[2023-04-05] MEDS: TAMSULOSIN 0.4 MG CAP.ER.24H PO SCH (08:20)
[2023-04-05] MEDS: buPROPion SR 100 MG TABLET.ER PO SCH (08:20)
[2023-04-05] MEDS: FENOFIBRATE 54 MG TAB PO SCH (08:20)
[2023-04-05] MEDS: ASPIRIN 81 MG PO SCH (08:20)
[2023-04-05] MEDS: DULoxetine HCL 60 MG CAPSULE.DR PO SCH (08:20)
[2023-04-05] MEDS: MULTIVITAMINS, THERA 1 EACH TAB PO SCH (08:20)
[2023-04-05] MEDS: HEPARIN SODIUM,PORCINE/PF 5,000 UNIT/0.5 ML SYRINGE SQ SCH ×2 (08:20→15:47)
[2023-04-05] MEDS: METOPROLOL TARTRATE 50 MG TAB PO SCH ×2 (08:20→20:42)
[2023-04-05] MEDS: LOSARTAN 25 MG TAB PO SCH (08:20)
[2023-04-05] MEDS: amLODIPine 10 MG TAB PO SCH (08:20)
[2023-04-05] MEDS: DOCUSATE 100 MG CAP PO SCH ×2 (08:20→20:42)
[2023-04-05] MEDS: PANTOPRAZOLE 40 MG TABLET PO SCH (08:20)
[2023-04-05 12:09] LABS: Glucose,Whole Blood 185 mg/dL (70-110)
[2023-04-05] MEDS: SODIUM CHLORIDE 0.9% 1,000 ML IV SCH (12:21)
[2023-04-05 17:13] LABS: Glucose,Whole Blood 164 mg/dL (70-110)
[2023-04-05 20:29] LABS: Glucose,Whole Blood 186 mg/dL (70-110)
[2023-04-05] MEDS: INSULIN DETEMIR (LEVEMIR) 100 UNIT/ML SYR SQ SCH (20:42)
[2023-04-05] MEDS: ATORVASTATIN 40 MG TAB PO SCH (20:42)
[2023-04-05] MEDS: ALPRAZolam 0.25 MG TAB PO PRN (20:42)
--- NOTE | 2023-04-05 21:38 | P.PN ---
Progress Note - Text Progress Note Date: 04/05/23 I'm rounding for Dr. Nima Reynolds. 04/03/2023: Laying in bed. Comfortable. Eating well. Able to answer questions. April 04: Laying in bed. Comfortable. Oral intake good. April 05: Stable. No new issues. Oral intake fair. Dillard catheter. Await court hearing. Active Medications Albuterol/Ipratropium (Ipratropium-Albuterol 3 Ml Neb) 3 ml INHALATION RT-QID [facility] Last Admin: 04/05/23 21:09 Dose: Not Given Alprazolam (Alprazolam 0.25 Mg Tab) 0.25 mg PO TID PRN PRN Reason: Anxiety Last Admin: 04/05/23 20:42 Dose: 0.25 mg Amlodipine Besylate (Amlodipine 10 Mg Tab) 10 mg PO DAILY [facility] Last Admin: 04/05/23 08:20 Dose: 10 mg Aspirin (Aspirin 81 Mg) 81 mg PO DAILY [facility] Last Admin: 04/05/23 08:20 Dose: 81 mg Atorvastatin Calcium (Atorvastatin 40 Mg Tab) 40 mg PO HS [facility] Last Admin: 04/05/23 20:42 Dose: 40 mg Budesonide (Budesonide 0.5 Mg/2 Ml Nebu) 0.5 mg INHALATION RT-BID [facility] Last Admin: 04/05/23 21:09 Dose: Not Given Bupropion HCl (Bupropion Sr 100 Mg Tablet.Er) 100 mg PO DAILY [facility] Last Admin: 04/05/23 08:20 Dose: 100 mg Dextrose/Water (Dextrose 50% Syringe 50 Ml) 25 ml IVP PER PROTOCOL PRN; Protocol PRN Reason: Hypoglycemia Last Admin: 03/20/23 07:40 Dose: 25 ml Dextrose/Water (Dextrose 50% Syringe 50 Ml) 50 ml IVP PER PROTOCOL PRN; Protocol PRN Reason: Hypoglycemia Diphenoxylate HCl/Atropine (Diphenox-Atrop 2.5-0.025 Mg 1 Each Tab) 2 each PO Q6HR PRN PRN Reason: Diarrhea Last Admin: 04/01/23 11:29 Dose: 2 each Docusate Sodium (Docusate 100 Mg Cap) 100 mg PO BID [facility] Last Admin: 04/05/23 20:42 Dose: 100 mg Duloxetine HCl (Duloxetine Hcl 60 Mg Capsule.Dr) 60 mg PO DAILY [facility] Last Admin: 04/05/23 08:20 Dose: 60 mg Fenofibrate (Fenofibrate 54 Mg Tab) 54 mg PO DAILY [facility] Last Admin: 04/05/23 08:20 Dose: 54 mg Heparin Sodium (Porcine) (Heparin Sodium,Porcine/Pf 5,000 Unit/0.5 Ml Syringe) 5,000 unit SQ Q8HR [facility] Last Admin: 04/05/23 15:47 Dose: 5,000 unit Sodium Chloride (Saline 0.9%) 1,000 mls @ 10 mls/hr IV .Q24H [facility] Last Admin: 04/05/23 12:21 Dose: Not Given Insulin Aspart (Insulin Aspart (Novolog) 100 Unit/Ml Vial) 0 unit SQ AC-TID [facility]; Protocol Last Admin: 04/05/23 18:19 Dose: 2 unit Insulin Detemir (Insulin Detemir (Levemir) 100 Unit/Ml Syr) 16 unit SQ HS [facility] Last Admin: 04/05/23 20:42 Dose: Not Given Losartan Potassium (Losartan 25 Mg Tab) 25 mg PO DAILY [facility] Last Admin: 04/05/23 08:20 Dose: 25 mg Metoprolol Tartrate (Metoprolol Tartrate 50 Mg Tab) 50 mg PO BID [facility] Last Admin: 04/05/23 20:42 Dose: 50 mg Multivitamins (Multivitamins, Thera 1 Each Tab) 1 each PO DAILY [facility] Last Admin: 04/05/23 08:20 Dose: 1 each Naloxone HCl (Naloxone 0.4 Mg/Ml 1 Ml Vial) 0.2 mg IV Q2M PRN PRN Reason: Opioid Reversal Pantoprazole Sodium (Pantoprazole 40 Mg Tablet) 40 mg PO AC-BRKFST [facility] Last Admin: 04/05/23 08:20 Dose: 40 mg Potassium Chloride (Potassium Chloride Er 20 Meq Tab.Er) 20 meq PO DAILY [facility] Last Admin: 04/05/23 08:20 Dose: 20 meq Tamsulosin HCl (Tamsulosin 0.4 Mg Cap.Er.24h) 0.4 mg PO DAILY [facility] Last Admin: 04/05/23 08:20 Dose: 0.4 mg On examination: VITAL SIGNS: 97.7, 74, 16, 147/74, 87% room air GENERAL APPEARANCE: Laying in bed,, comfortable HEENT: Normal external appearance of nose and ear. Oral cavity normal EYES: Pupils equal. Conjunctiva normal. NECK: JVD not raised. Mass not palpable. RESPIRATORY: Respiratory effort normal. Lungs clear to auscultation. CARDIOVASCULAR: First and second sounds normal. No edema. ABDOMEN: Soft. Liver and spleen not palpable. No tenderness. No mass palpable. Dillard catheter NEUROLOGICAL: Right arm paresis. Movement in both legs PSYCHIATRY: Answering questions appropriately. Place, year, person, INVESTIGATIONS, reviewed in the clinical context: Accu-Cheks noted Assessment and plan: -R Arm paresis from a prior stroke -Chronic lower extremity paresis -Acute cellulitis of previous tracheostomy site. Better Nystatin cream. Doxycycline course completed -CAD with stent -Diabetes mellitus type 2, chronically on insulin -Essential hypertension -Primary osteoarthritis -Depression -Chronic medical debility Stable. Awaiting court hearing. Continue current medications.
[2023-04-05] MEDS: DIPHENOX-ATROP 2.5-0.025 MG 1 EACH TAB PO PRN (22:36)
[2023-04-06] MEDS: HEPARIN SODIUM,PORCINE/PF 5,000 UNIT/0.5 ML SYRINGE SQ SCH ×4 (00:21→23:55)
[2023-04-06] MEDS: DOCUSATE 100 MG CAP PO SCH ×2 (07:33→21:41)
[2023-04-06 07:36] LABS: Glucose,Whole Blood 164 mg/dL (70-110)
[2023-04-06] MEDS: BUDESONIDE 0.5 MG/2 ML NEBU INHALATION SCH ×2 (08:19→20:46)
[2023-04-06] MEDS: IPRATROPIUM-ALBUTEROL 3 ML NEB INHALATION SCH ×4 (08:19→20:46)
[2023-04-06] MEDS: MULTIVITAMINS, THERA 1 EACH TAB PO SCH (10:09)
[2023-04-06] MEDS: TAMSULOSIN 0.4 MG CAP.ER.24H PO SCH (10:09)
[2023-04-06] MEDS: DULoxetine HCL 60 MG CAPSULE.DR PO SCH (10:09)
[2023-04-06] MEDS: ASPIRIN 81 MG PO SCH (10:09)
[2023-04-06] MEDS: POTASSIUM CHLORIDE ER 20 MEQ TAB.ER PO SCH (10:09)
[2023-04-06] MEDS: PANTOPRAZOLE 40 MG TABLET PO SCH (10:09)
[2023-04-06] MEDS: METOPROLOL TARTRATE 50 MG TAB PO SCH ×2 (10:09→21:41)
[2023-04-06] MEDS: LOSARTAN 25 MG TAB PO SCH (10:09)
[2023-04-06] MEDS: FENOFIBRATE 54 MG TAB PO SCH (10:09)
[2023-04-06] MEDS: buPROPion SR 100 MG TABLET.ER PO SCH (10:10)
[2023-04-06] MEDS: amLODIPine 10 MG TAB PO SCH (10:10)
[2023-04-06] MEDS: INSULIN ASPART (NovoLOG) 100 UNIT/ML VIAL SQ SCH ×3 (10:17→17:58)
[2023-04-06] MEDS: SODIUM CHLORIDE 0.9% 1,000 ML IV SCH (10:43)
[2023-04-06 11:37] LABS: Glucose,Whole Blood 172 mg/dL (70-110)
[2023-04-06 17:21] LABS: Glucose,Whole Blood 200 mg/dL (70-110)
[2023-04-06 20:44] LABS: Glucose,Whole Blood 189 mg/dL (70-110)
[2023-04-06] MEDS: INSULIN DETEMIR (LEVEMIR) 100 UNIT/ML SYR SQ SCH (21:41)
[2023-04-06] MEDS: ATORVASTATIN 40 MG TAB PO SCH (21:41)
[2023-04-06] MEDS: ALPRAZolam 0.25 MG TAB PO PRN (21:45)
--- NOTE | 2023-04-07 02:18 | PN ---
PROGRESS NOTE SUBJECTIVE: This is a 67-year-old white male. He is still getting radiation for his Hodgkin's lymphoma. OBJECTIVE: VITAL SIGNS: Temperature is 98, pulse 65, respiratory rate 16 to 18, blood pressure . CARDIOVASCULAR: S1, S2. HEMATOLOGY: Negative for Homans. PSYCH: Fair mood and affect. MUSCULOSKELETAL: Right-sided weakness. ASSESSMENT: Prior strokes, prior cellulitis, Hodgkin's lymphoma, continue with radiation treatment. Prognosis guarded. Gave him anxiety medicines, updraft, and treatments for COPD. He is comfortable Dillard catheter. Await court hearing. Appears to be stable medically at this point. Blood pressure medications are controlled, diabetes controlled. Continue with current treatment. Awaiting court hearing and discharge medications. Prognosis guarded. MMODL / IJN: [id number] /
[2023-04-07] MEDS: DIPHENOX-ATROP 2.5-0.025 MG 1 EACH TAB PO PRN ×2 (04:23→20:36)
[2023-04-07 06:56] LABS: Glucose,Whole Blood 72 mg/dL (70-110)
[2023-04-07] MEDS: INSULIN ASPART (NovoLOG) 100 UNIT/ML VIAL SQ SCH ×3 (07:20→18:16)
[2023-04-07] MEDS: IPRATROPIUM-ALBUTEROL 3 ML NEB INHALATION SCH ×4 (08:01→20:30)
[2023-04-07] MEDS: BUDESONIDE 0.5 MG/2 ML NEBU INHALATION SCH ×2 (08:01→20:30)
[2023-04-07] MEDS: METOPROLOL TARTRATE 50 MG TAB PO SCH ×2 (09:06→20:36)
[2023-04-07] MEDS: TAMSULOSIN 0.4 MG CAP.ER.24H PO SCH (09:06)
[2023-04-07] MEDS: amLODIPine 10 MG TAB PO SCH (09:06)
[2023-04-07] MEDS: FENOFIBRATE 54 MG TAB PO SCH (09:06)
[2023-04-07] MEDS: POTASSIUM CHLORIDE ER 20 MEQ TAB.ER PO SCH (09:06)
[2023-04-07] MEDS: MULTIVITAMINS, THERA 1 EACH TAB PO SCH (09:07)
[2023-04-07] MEDS: HEPARIN SODIUM,PORCINE/PF 5,000 UNIT/0.5 ML SYRINGE SQ SCH ×3 (09:07→23:31)
[2023-04-07] MEDS: buPROPion SR 100 MG TABLET.ER PO SCH (09:07)
[2023-04-07] MEDS: ASPIRIN 81 MG PO SCH (09:07)
[2023-04-07] MEDS: LOSARTAN 25 MG TAB PO SCH (09:07)
[2023-04-07] MEDS: DULoxetine HCL 60 MG CAPSULE.DR PO SCH (09:07)
[2023-04-07] MEDS: SODIUM CHLORIDE 0.9% 1,000 ML IV SCH (09:07)
[2023-04-07] MEDS: PANTOPRAZOLE 40 MG TABLET PO SCH (09:07)
[2023-04-07] MEDS: DOCUSATE 100 MG CAP PO SCH ×2 (09:08→20:37)
[2023-04-07 12:02] LABS: Glucose,Whole Blood 147 mg/dL (70-110)
[2023-04-07 17:17] LABS: Glucose,Whole Blood 170 mg/dL (70-110)
[2023-04-07 20:32] LABS: Glucose,Whole Blood 185 mg/dL (70-110)
[2023-04-07] MEDS: ATORVASTATIN 40 MG TAB PO SCH (20:36)
[2023-04-07] MEDS: INSULIN DETEMIR (LEVEMIR) 100 UNIT/ML SYR SQ SCH (20:38)
[2023-04-07] MEDS: ALPRAZolam 0.25 MG TAB PO PRN (20:38)
[2023-04-08 07:13] LABS: Glucose,Whole Blood 117 mg/dL (70-110)
[2023-04-08] MEDS: INSULIN ASPART (NovoLOG) 100 UNIT/ML VIAL SQ SCH ×3 (07:25→18:25)
[2023-04-08] MEDS: IPRATROPIUM-ALBUTEROL 3 ML NEB INHALATION SCH ×4 (07:51→20:27)
[2023-04-08] MEDS: BUDESONIDE 0.5 MG/2 ML NEBU INHALATION SCH ×2 (07:51→20:05)
[2023-04-08] MEDS: SODIUM CHLORIDE 0.9% 1,000 ML IV SCH (09:46)
[2023-04-08] MEDS: DOCUSATE 100 MG CAP PO SCH ×2 (09:46→20:31)
[2023-04-08] MEDS: DULoxetine HCL 60 MG CAPSULE.DR PO SCH (09:48)
[2023-04-08] MEDS: PANTOPRAZOLE 40 MG TABLET PO SCH (09:48)
[2023-04-08] MEDS: TAMSULOSIN 0.4 MG CAP.ER.24H PO SCH (09:48)
[2023-04-08] MEDS: HEPARIN SODIUM,PORCINE/PF 5,000 UNIT/0.5 ML SYRINGE SQ SCH ×3 (09:48→23:59)
[2023-04-08] MEDS: amLODIPine 10 MG TAB PO SCH (09:48)
[2023-04-08] MEDS: buPROPion SR 100 MG TABLET.ER PO SCH (09:48)
[2023-04-08] MEDS: FENOFIBRATE 54 MG TAB PO SCH (09:48)
[2023-04-08] MEDS: MULTIVITAMINS, THERA 1 EACH TAB PO SCH (09:48)
[2023-04-08] MEDS: ASPIRIN 81 MG PO SCH (09:48)
[2023-04-08] MEDS: POTASSIUM CHLORIDE ER 20 MEQ TAB.ER PO SCH (09:48)
[2023-04-08] MEDS: METOPROLOL TARTRATE 50 MG TAB PO SCH ×2 (09:48→20:31)
[2023-04-08] MEDS: LOSARTAN 25 MG TAB PO SCH (09:48)
--- NOTE | 2023-04-08 11:45 | PN ---
PROGRESS NOTE SUBJECTIVE: He is finishing up his radiation for his Hodgkin lymphoma. Waiting for discharge planning date. OBJECTIVE: VITAL SIGNS: Temperature 97.6, blood pressure 115/67, O2 of 96 on room air, pulse 65, respiratory rate 18. He has a urine catheter in for urinary retention. Possibly can do a voiding trial. His glucose level is in the mid 100s for diabetes. CARDIOVASCULAR: S1 and S2. LUNGS: Clear. GI: Soft. HEMATOLOGY: Negative for Homans. ASSESSMENT: Diabetes mellitus, Hodgkin lymphoma, prior stroke with right-sided weakness. PT and OT as needed. [facility] placement as needed. Wait for family decision. etc. Prognosis guarded. MMODL / IJN: [id number] /
[2023-04-08 12:02] LABS: Glucose,Whole Blood 162 mg/dL (70-110)
[2023-04-08] MEDS: ALPRAZolam 0.25 MG TAB PO PRN ×2 (14:55→20:34)
[2023-04-08 17:28] LABS: Glucose,Whole Blood 223 mg/dL (70-110)
[2023-04-08 20:29] LABS: Glucose,Whole Blood 241 mg/dL (70-110)
[2023-04-08] MEDS: ATORVASTATIN 40 MG TAB PO SCH (20:34)
[2023-04-08] MEDS: INSULIN DETEMIR (LEVEMIR) 100 UNIT/ML SYR SQ SCH (20:34)
--- NOTE | 2023-04-09 01:57 | P.PN ---
Subjective Progress Note Date: 04/08/[address] 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 Denied any new complaints. Patient is undergoing radiation therapy. No complaints of chest pain or shortness of breath. No nausea vomiting or abdominal pain or diarrhea. Blood sugar is fairly controlled. Follow-up repeat lab tomorrow. REVIEW OF SYSTEMS: CONSTITUTIONAL: No fever, no malaise,. CARDIOVASCULAR: No chest pain, no palpitations, no syncope. PULMONARY: No shortness of breath, no cough, GASTROINTESTINAL: No diarrhea, no nausea, no vomiting, no abdominal pain. NEUROLOGICAL: No headaches, no weakness, Active Medications Albuterol/Ipratropium (Ipratropium-Albuterol 3 Ml Neb) 3 ml INHALATION RT-QID [facility] Last Admin: 04/08/23 20:27 Dose: Not Given Alprazolam (Alprazolam 0.25 Mg Tab) 0.25 mg PO TID PRN PRN Reason: Anxiety Last Admin: 04/08/23 20:34 Dose: 0.25 mg Amlodipine Besylate (Amlodipine 10 Mg Tab) 10 mg PO DAILY [facility] Last Admin: 04/08/23 09:48 Dose: 10 mg Aspirin (Aspirin 81 Mg) 81 mg PO DAILY [facility] Last Admin: 04/08/23 09:48 Dose: 81 mg Atorvastatin Calcium (Atorvastatin 40 Mg Tab) 40 mg PO HS [facility] Last Admin: 04/08/23 20:34 Dose: 40 mg Budesonide (Budesonide 0.5 Mg/2 Ml Nebu) 0.5 mg INHALATION RT-BID [facility] Last Admin: 04/08/23 20:05 Dose: Not Given Bupropion HCl (Bupropion Sr 100 Mg Tablet.Er) 100 mg PO DAILY [facility] Last Admin: 04/08/23 09:48 Dose: 100 mg Dextrose/Water (Dextrose 50% Syringe 50 Ml) 25 ml IVP PER PROTOCOL PRN; Protoc ol PRN Reason: Hypoglycemia Last Admin: 03/20/23 07:40 Dose: 25 ml Dextrose/Water (Dextrose 50% Syringe 50 Ml) 50 ml IVP PER PROTOCOL PRN; Protocol PRN Reason: Hypoglycemia Diphenoxylate HCl/Atropine (Diphenox-Atrop 2.5-0.025 Mg 1 Each Tab) 2 each PO Q6HR PRN PRN Reason: Diarrhea Last Admin: 04/07/23 20:36 Dose: 2 each Docusate Sodium (Docusate 100 Mg Cap) 100 mg PO BID [facility] Last Admin: 04/08/23 20:31 Dose: Not Given Duloxetine HCl (Duloxetine Hcl 60 Mg Capsule.Dr) 60 mg PO DAILY [facility] Last Admin: 04/08/23 09:48 Dose: 60 mg Fenofibrate (Fenofibrate 54 Mg Tab) 54 mg PO DAILY [facility] Last Admin: 04/08/23 09:48 Dose: 54 mg Heparin Sodium (Porcine) (Heparin Sodium,Porcine/Pf 5,000 Unit/0.5 Ml Syringe) 5,000 unit SQ Q8HR [facility] Last Admin: 04/08/23 23:59 Dose: 5,000 unit Insulin Aspart (Insulin Aspart (Novolog) 100 Unit/Ml Vial) 0 unit SQ AC-TID [facility]; Protocol Last Admin: 04/08/23 18:25 Dose: 4 unit Insulin Detemir (Insulin Detemir (Levemir) 100 Unit/Ml Syr) 16 unit SQ HS [facility] Last Admin: 04/08/23 20:34 Dose: 16 unit Losartan Potassium (Losartan 25 Mg Tab) 25 mg PO DAILY [facility] Last Admin: 04/08/23 09:48 Dose: 25 mg Metoprolol Tartrate (Metoprolol Tartrate 50 Mg Tab) 50 mg PO BID [facility] Last Admin: 04/08/23 20:31 Dose: Not Given Multivitamins (Multivitamins, Thera 1 Each Tab) 1 each PO DAILY [facility] Last Admin: 04/08/23 09:48 Dose: 1 each Naloxone HCl (Naloxone 0.4 Mg/Ml 1 Ml Vial) 0.2 mg IV Q2M PRN PRN Reason: Opioid Reversal Pantoprazole Sodium (Pantoprazole 40 Mg Tablet) 40 mg PO AC-BRKFST [facility] Last Admin: 04/08/23 09:48 Dose: 40 mg Potassium Chloride (Potassium Chloride Er 20 Meq Tab.Er) 20 meq PO DAILY [facility] Last Admin: 04/08/23 09:48 Dose: 20 meq Tamsulosin HCl (Tamsulosin 0.4 Mg Cap.Er.24h) 0.4 mg PO DAILY [facility] Last Admin: 04/08/23 09:48 Dose: 0.4 mg Objective - Vital Signs Vital signs: Vital Signs Temp 97.6 F 04/08/23 19:03 Pulse 64 04/08/23 19:03 Resp 16 04/08/23 19:03 BP 97/63 04/08/23 19:03 Pulse Ox 98 04/08/23 19:03 FiO2 21 03/06/23 07:34 Intake & Output 04/08/23 04/08/23 04/09/23 06:59 18:59 06:59 Intake Total 540 Output Total 601 495 Balance -61 -495 Intake: IV 540 Sodium Chloride 0.9% 1, 540 000 ml @ 10 mls/hr IV . Q24H [facility] Rx#:[id number] Output: Urine 600 495 Stool 1 Other: Voiding Method External Catheter Diaper Incontinent External Catheter # Voids 2 # Bowel Movements 1 1 - Exam PHYSICAL EXAMINATION: GENERAL: The patient is alert and oriented x3, not in any acute distress. Well developed, well nourished. HEENT: Pupils are round and equally reacting to light. EOMI. No scleral icterus. No conjunctival pallor. Normocephalic, atraumatic. No pharyngeal erythema. No thyromegaly. CARDIOVASCULAR: S1 and S2 present. No murmurs, rubs, or gallops. PULMONARY: Chest is clear to auscultation, no wheezing or crackles. ABDOMEN: Soft, nontender, nondistended, normoactive bowel sounds. No palpable organomegaly. MUSCULOSKELETAL: No joint swelling or deformity. EXTREMITIES: No cyanosis, clubbing, or pedal edema. NEUROLOGICAL: Gross neurological examination did not reveal any focal deficits. SKIN: No rashes. - Labs CBC & Chem 7: 03/20/23 06:01 03/20/23 06:01 Labs: Abnormal Lab Results - Last 24 Hours (Table) 04/07/23 04/08/23 04/08/23 Range/Units 20:31 07:12 12:00 POC Glucose (mg/dL) 185 H 117 H 162 H (70-110) mg/dL 04/08/23 Range/Units 17:27 POC Glucose (mg/dL) 223 H (70-110) mg/dL Assessment and Plan Assessment: Assessment and plan Hodgkin's lymphoma UTI due to indwelling catheter Lymphocele of the neck. Improved Antral gastritis noted on EGD Cervical adenopathy History of CVA with right hemiplegia with prior history of trach and PEG Cardiomyopathy ischemic ejection fraction 45% Coronary artery with history of stent placement and STEMI Moderate aortic stenosis Hypertension Diabetes type 2 Diabetic peripheral neuropathy Hyperlipidemia DVT prophylaxis with heparin subcu Monitor vital signs Monitor CBC Monitor CMP -PET scan revealed multiple left-sided neck lymph nodes which are enlarged with increased metabolic activity. Focal uptake near the wall of the cecum anteriorly which is indeterminate, SUV 5.0. General surgery consulted for evaluation for colonoscopy/EGD. EGD revealed midly inflamed antrum, biopsy negative for malignancy. Colonoscopy showed poor colon prep and evidence of diverticulosis, cecum appeared normal. Based on findings PET and EGD/colonoscopy, disease is localized to left neck and treatment at this time will consist of RT alone. Rad/onc following, plan for 15 fractions. Hematology oncology following the patient -Due to complex social dynamics/finances social work is having difficulties finding patient placement. pattern worker is working with APS/court system to hopefully find appropriate placement but unfortunately they has been no resolution at this time in regards to placement. Continue rest of treatment for now Dr. Reynolds will be taking care of this patient from tomorrow Time with Patient: Greater than 30
[2023-04-09] MEDS: IPRATROPIUM-ALBUTEROL 3 ML NEB INHALATION SCH ×4 (07:10→19:33)
[2023-04-09] MEDS: BUDESONIDE 0.5 MG/2 ML NEBU INHALATION SCH ×2 (07:10→19:33)
[2023-04-09] MEDS: MULTIVITAMINS, THERA 1 EACH TAB PO SCH (07:50)
[2023-04-09] MEDS: DOCUSATE 100 MG CAP PO SCH ×2 (07:50→20:26)
[2023-04-09] MEDS: ASPIRIN 81 MG PO SCH (07:50)
[2023-04-09] MEDS: buPROPion SR 100 MG TABLET.ER PO SCH (07:50)
[2023-04-09] MEDS: PANTOPRAZOLE 40 MG TABLET PO SCH (07:50)
[2023-04-09] MEDS: HEPARIN SODIUM,PORCINE/PF 5,000 UNIT/0.5 ML SYRINGE SQ SCH ×3 (07:50→23:25)
[2023-04-09] MEDS: FENOFIBRATE 54 MG TAB PO SCH (07:50)
[2023-04-09] MEDS: LOSARTAN 25 MG TAB PO SCH (07:50)
[2023-04-09] MEDS: METOPROLOL TARTRATE 50 MG TAB PO SCH ×2 (07:51→20:23)
[2023-04-09] MEDS: POTASSIUM CHLORIDE ER 20 MEQ TAB.ER PO SCH (07:51)
[2023-04-09] MEDS: TAMSULOSIN 0.4 MG CAP.ER.24H PO SCH (07:51)
[2023-04-09] MEDS: amLODIPine 10 MG TAB PO SCH (07:51)
[2023-04-09] MEDS: DULoxetine HCL 60 MG CAPSULE.DR PO SCH (07:51)
[2023-04-09 07:55] LABS: Glucose,Whole Blood 125 mg/dL (70-110)
[2023-04-09] MEDS: INSULIN ASPART (NovoLOG) 100 UNIT/ML VIAL SQ SCH ×3 (07:57→17:50)
[2023-04-09 12:03] LABS: Glucose,Whole Blood 144 mg/dL (70-110)
[2023-04-09 13:48] LABS: BUN/Creat Ratio 33.89 Ratio (12.00-20.00); Blood Urea Nitrogen 30.5 mg/dL (9.0-27.0); Calcium 9.9 mg/dL (8.7-10.3); Carbon Dioxide 23.4 mmol/L (21.6-31.8); Chloride 102 mmol/L (96-109); Glucose 105 mg/dL (70-110); Potassium 4.4 mmol/L (3.5-5.5); Sodium 139 mmol/L (135-145)
[2023-04-09 13:58] LABS: Basophils # (A) 0.04 X 10*3/uL (0.00-0.10); Basophils % (A) 0.8 %; Eosinophils # (A) 0.37 X 10*3/uL (0.04-0.35); HCT 38.3 % (39.6-50.0); HGB 12.7 d/dL (12.0-15.0); Lymphocytes # (A) 0.62 X 10*3/uL (0.90-5.00); Lymphocytes % (A) 11.7 %; MCH 30.7 pg (27.0-32.0); MCHC 33.2 d/dL (32.0-37.0); MCV 92.5 FL (80.0-97.0); Mean Platelet Volume 9.2 FL (9.5-12.2); Monocytes # (A) 0.66 X 10*3/uL (0.20-1.00); Monocytes % (A) 12.5 %; NRBC Per 100 WBC 0 X 10*3/uL (0.00-0.01); Neutrophils # (A) 3.59 X 10*3/uL (1.80-7.70); Neutrophils % (A) 67.6 %; Platelet Count 209 X 10*3/uL (140-440); RBC 4.14 X 10*6/uL (4.40-5.60); RDW 14.1 % (11.5-14.5)
[2023-04-09 17:18] LABS: Glucose,Whole Blood 225 mg/dL (70-110)
[2023-04-09 20:14] LABS: Glucose,Whole Blood 233 mg/dL (70-110)
[2023-04-09] MEDS: ALPRAZolam 0.25 MG TAB PO PRN (20:26)
[2023-04-09] MEDS: ATORVASTATIN 40 MG TAB PO SCH (20:26)
[2023-04-09] MEDS: INSULIN DETEMIR (LEVEMIR) 100 UNIT/ML SYR SQ SCH (20:26)
[2023-04-10 07:00] LABS: Glucose,Whole Blood 151 mg/dL (70-110)
[2023-04-10] MEDS: IPRATROPIUM-ALBUTEROL 3 ML NEB INHALATION SCH ×4 (07:35→19:27)
[2023-04-10] MEDS: BUDESONIDE 0.5 MG/2 ML NEBU INHALATION SCH ×2 (07:35→19:26)
[2023-04-10] MEDS: ASPIRIN 81 MG PO SCH (08:49)
[2023-04-10] MEDS: INSULIN ASPART (NovoLOG) 100 UNIT/ML VIAL SQ SCH ×3 (08:49→17:25)
[2023-04-10] MEDS: amLODIPine 10 MG TAB PO SCH (08:49)
[2023-04-10] MEDS: DULoxetine HCL 60 MG CAPSULE.DR PO SCH (08:49)
[2023-04-10] MEDS: HEPARIN SODIUM,PORCINE/PF 5,000 UNIT/0.5 ML SYRINGE SQ SCH ×3 (08:49→23:52)
[2023-04-10] MEDS: MULTIVITAMINS, THERA 1 EACH TAB PO SCH (08:49)
[2023-04-10] MEDS: POTASSIUM CHLORIDE ER 20 MEQ TAB.ER PO SCH (08:50)
[2023-04-10] MEDS: PANTOPRAZOLE 40 MG TABLET PO SCH (08:50)
[2023-04-10] MEDS: buPROPion SR 100 MG TABLET.ER PO SCH (08:50)
[2023-04-10] MEDS: LOSARTAN 25 MG TAB PO SCH (08:50)
[2023-04-10] MEDS: METOPROLOL TARTRATE 50 MG TAB PO SCH ×2 (08:50→20:07)
[2023-04-10] MEDS: TAMSULOSIN 0.4 MG CAP.ER.24H PO SCH (08:50)
[2023-04-10] MEDS: DOCUSATE 100 MG CAP PO SCH ×2 (08:50→20:07)
[2023-04-10] MEDS: FENOFIBRATE 54 MG TAB PO SCH (08:50)
[2023-04-10] MEDS: ALPRAZolam 0.25 MG TAB PO PRN ×2 (08:52→19:36)
[2023-04-10 11:45] LABS: Glucose,Whole Blood 198 mg/dL (70-110)
[2023-04-10 17:11] LABS: Glucose,Whole Blood 151 mg/dL (70-110)
[2023-04-10] MEDS: INSULIN DETEMIR (LEVEMIR) 100 UNIT/ML SYR SQ SCH (20:07)
[2023-04-10] MEDS: ATORVASTATIN 40 MG TAB PO SCH (20:07)
[2023-04-10 20:15] LABS: Glucose,Whole Blood 178 mg/dL (70-110)
[2023-04-10] MEDS: DIPHENOX-ATROP 2.5-0.025 MG 1 EACH TAB PO PRN (22:51)
--- NOTE | 2023-04-10 23:24 | PN ---
PROGRESS NOTE SUBJECTIVE: This 67-year-old white male continues to have difficulties waiting for right hemiplegia secondary to CVA. He has been treated with radiation for Hodgkin lymphoma, waiting for placement. OBJECTIVE: VITAL SIGNS: Stable, afebrile. CARDIOVASCULAR: S1, S2. LUNGS: Lear. GI: Soft. HEMATOLOGY: Negative for Homans. Sugars are in the mid 100s assessment COPD, CVA, diabetes, generalized weakness, right- sided weakness from prior stroke in his PT OT and moderate aortic stenosis, hypertension, diabetic neuropathy, Hodgkin's lymphoma, chronic UTI, coronary disease, cardiomyopathy, cervical adenopathy. Prognosis guarded. Continue with PT, OT. MMODL / IJN: [id number] /
[2023-04-11] MEDS: DOCUSATE 100 MG CAP PO SCH ×3 (02:39→20:09)
[2023-04-11] MEDS: DIPHENOX-ATROP 2.5-0.025 MG 1 EACH TAB PO PRN ×2 (04:44→11:16)
[2023-04-11 07:09] LABS: Glucose,Whole Blood 165 mg/dL (70-110)
[2023-04-11] MEDS: HEPARIN SODIUM,PORCINE/PF 5,000 UNIT/0.5 ML SYRINGE SQ SCH ×3 (08:26→23:54)
[2023-04-11] MEDS: INSULIN ASPART (NovoLOG) 100 UNIT/ML VIAL SQ SCH ×3 (08:26→18:02)
[2023-04-11] MEDS: DULoxetine HCL 60 MG CAPSULE.DR PO SCH (08:26)
[2023-04-11] MEDS: LOSARTAN 25 MG TAB PO SCH (08:27)
[2023-04-11] MEDS: PANTOPRAZOLE 40 MG TABLET PO SCH (08:27)
[2023-04-11] MEDS: METOPROLOL TARTRATE 50 MG TAB PO SCH ×2 (08:27→20:10)
[2023-04-11] MEDS: TAMSULOSIN 0.4 MG CAP.ER.24H PO SCH (08:27)
[2023-04-11] MEDS: FENOFIBRATE 54 MG TAB PO SCH (08:27)
[2023-04-11] MEDS: ASPIRIN 81 MG PO SCH (08:27)
[2023-04-11] MEDS: POTASSIUM CHLORIDE ER 20 MEQ TAB.ER PO SCH (08:27)
[2023-04-11] MEDS: amLODIPine 10 MG TAB PO SCH (08:27)
[2023-04-11] MEDS: buPROPion SR 100 MG TABLET.ER PO SCH (08:27)
[2023-04-11] MEDS: MULTIVITAMINS, THERA 1 EACH TAB PO SCH (08:27)
[2023-04-11] MEDS: BUDESONIDE 0.5 MG/2 ML NEBU INHALATION SCH ×2 (09:14→20:00)
[2023-04-11] MEDS: IPRATROPIUM-ALBUTEROL 3 ML NEB INHALATION SCH ×4 (09:14→20:00)
[2023-04-11] MEDS: NYSTATIN 100,000 UNIT/GM OINT 30 GM TUBE TOPICAL SCH ×3 (11:03→20:10)
[2023-04-11] MEDS: ALPRAZolam 0.25 MG TAB PO PRN ×2 (11:11→20:10)
[2023-04-11 11:44] LABS: Glucose,Whole Blood 156 mg/dL (70-110)
[2023-04-11 17:02] LABS: Glucose,Whole Blood 233 mg/dL (70-110)
--- NOTE | 2023-04-11 19:45 | PN ---
PROGRESS NOTE SUBJECTIVE: A 67-year-old white male patient, doing very well at this time, waiting for discharge planning. OBJECTIVE: VITAL SIGNS: He is 99% on room air, temperature 98.4, pulse 65, respiratory rate 16 to 18. CARDIOVASCULAR: S1 and S2. LUNGS: Transmitted upper sounds. HEMATOLOGY: Negative Homans. PSYCHIATRIC: Fair mood and affect. PLAN: Continue current treatment. Follow up in next 24 to 48 hours. Sugars are mid 200s. Awaiting discharge planning. His diabetes is under control. He has prior CVA with right-sided weakness. He will need PT and OT somewhere. Otherwise, medically stable. COPD is stable. Prognosis is guarded. MMODL / IJN: [id number] /
[2023-04-11 20:09] LABS: Glucose,Whole Blood 166 mg/dL (70-110)
[2023-04-11] MEDS: ATORVASTATIN 40 MG TAB PO SCH (20:10)
[2023-04-11] MEDS: INSULIN DETEMIR (LEVEMIR) 100 UNIT/ML SYR SQ SCH (20:10)
[2023-04-12 07:02] LABS: Glucose,Whole Blood 140 mg/dL (70-110)
[2023-04-12] MEDS: INSULIN ASPART (NovoLOG) 100 UNIT/ML VIAL SQ SCH ×3 (07:13→17:56)
[2023-04-12] MEDS: IPRATROPIUM-ALBUTEROL 3 ML NEB INHALATION SCH ×4 (08:40→20:06)
[2023-04-12] MEDS: BUDESONIDE 0.5 MG/2 ML NEBU INHALATION SCH ×2 (08:41→20:06)
[2023-04-12] MEDS: HEPARIN SODIUM,PORCINE/PF 5,000 UNIT/0.5 ML SYRINGE SQ SCH ×2 (09:17→16:11)
[2023-04-12] MEDS: METOPROLOL TARTRATE 50 MG TAB PO SCH ×2 (09:18→20:03)
[2023-04-12] MEDS: FENOFIBRATE 54 MG TAB PO SCH (09:18)
[2023-04-12] MEDS: buPROPion SR 100 MG TABLET.ER PO SCH (09:18)
[2023-04-12] MEDS: MULTIVITAMINS, THERA 1 EACH TAB PO SCH (09:18)
[2023-04-12] MEDS: POTASSIUM CHLORIDE ER 20 MEQ TAB.ER PO SCH (09:18)
[2023-04-12] MEDS: LOSARTAN 25 MG TAB PO SCH (09:18)
[2023-04-12] MEDS: ASPIRIN 81 MG PO SCH (09:18)
[2023-04-12] MEDS: TAMSULOSIN 0.4 MG CAP.ER.24H PO SCH (09:18)
[2023-04-12] MEDS: DOCUSATE 100 MG CAP PO SCH ×2 (09:18→20:03)
[2023-04-12] MEDS: amLODIPine 10 MG TAB PO SCH (09:18)
[2023-04-12] MEDS: PANTOPRAZOLE 40 MG TABLET PO SCH (09:18)
[2023-04-12] MEDS: DULoxetine HCL 60 MG CAPSULE.DR PO SCH (09:18)
[2023-04-12] MEDS: NYSTATIN 100,000 UNIT/GM OINT 30 GM TUBE TOPICAL SCH ×3 (09:19→20:03)
[2023-04-12 11:44] LABS: Glucose,Whole Blood 218 mg/dL (70-110)
[2023-04-12 17:01] LABS: Glucose,Whole Blood 151 mg/dL (70-110)
[2023-04-12 19:38] LABS: Glucose,Whole Blood 174 mg/dL (70-110)
[2023-04-12] MEDS: ALPRAZolam 0.25 MG TAB PO PRN (20:03)
[2023-04-12] MEDS: INSULIN DETEMIR (LEVEMIR) 100 UNIT/ML SYR SQ SCH (20:03)
[2023-04-12] MEDS: ATORVASTATIN 40 MG TAB PO SCH (20:03)
[2023-04-13] MEDS: HEPARIN SODIUM,PORCINE/PF 5,000 UNIT/0.5 ML SYRINGE SQ SCH ×3 (00:09→17:01)
[2023-04-13] MEDS: DIPHENOX-ATROP 2.5-0.025 MG 1 EACH TAB PO PRN (01:36)
[2023-04-13 07:28] LABS: Glucose,Whole Blood 171 mg/dL (70-110)
[2023-04-13] MEDS: BUDESONIDE 0.5 MG/2 ML NEBU INHALATION SCH ×2 (08:02→20:01)
[2023-04-13] MEDS: IPRATROPIUM-ALBUTEROL 3 ML NEB INHALATION SCH ×4 (08:02→20:01)
[2023-04-13] MEDS: INSULIN ASPART (NovoLOG) 100 UNIT/ML VIAL SQ SCH ×3 (08:03→17:43)
[2023-04-13] MEDS: MULTIVITAMINS, THERA 1 EACH TAB PO SCH (08:04)
[2023-04-13] MEDS: LOSARTAN 25 MG TAB PO SCH (08:04)
[2023-04-13] MEDS: buPROPion SR 100 MG TABLET.ER PO SCH (08:04)
[2023-04-13] MEDS: POTASSIUM CHLORIDE ER 20 MEQ TAB.ER PO SCH (08:04)
[2023-04-13] MEDS: DOCUSATE 100 MG CAP PO SCH ×2 (08:04→21:19)
[2023-04-13] MEDS: amLODIPine 10 MG TAB PO SCH (08:04)
[2023-04-13] MEDS: TAMSULOSIN 0.4 MG CAP.ER.24H PO SCH (08:04)
[2023-04-13] MEDS: FENOFIBRATE 54 MG TAB PO SCH (08:05)
[2023-04-13] MEDS: METOPROLOL TARTRATE 50 MG TAB PO SCH ×2 (08:05→21:08)
[2023-04-13] MEDS: DULoxetine HCL 60 MG CAPSULE.DR PO SCH (08:05)
[2023-04-13] MEDS: ASPIRIN 81 MG PO SCH (08:06)
[2023-04-13] MEDS: PANTOPRAZOLE 40 MG TABLET PO SCH (08:06)
[2023-04-13] MEDS: NYSTATIN 100,000 UNIT/GM OINT 30 GM TUBE TOPICAL SCH ×3 (08:06→21:33)
--- NOTE | 2023-04-13 10:06 | PN ---
PROGRESS NOTE SUBJECTIVE: Failure to thrive. Remains on radiation treatment for Hodgkin's lymphoma. He is awaiting discharge planning. He has CVA with right-sided weakness, chronic weakness. OBJECTIVE: CARDIOVASCULAR: S1, S2. LUNGS: Clear. GI: Soft. HEMATOLOGY: Negative for Homans. PSYCH: Fair mood and affect. PLAN: Continue current treatment. Follow up in the next 24 to 48 hours. Wait for discharge planning. Told he has social work issue for the last 3 months keeping him in the hospital. MMODL / IJN: [id number] /
[2023-04-13 12:10] LABS: Glucose,Whole Blood 147 mg/dL (70-110)
[2023-04-13] MEDS: ALPRAZolam 0.25 MG TAB PO PRN ×2 (12:58→21:19)
[2023-04-13 16:44] LABS: Glucose,Whole Blood 227 mg/dL (70-110)
[2023-04-13 20:22] LABS: Glucose,Whole Blood 177 mg/dL (70-110)
[2023-04-13] MEDS: ATORVASTATIN 40 MG TAB PO SCH (21:19)
[2023-04-13] MEDS: INSULIN DETEMIR (LEVEMIR) 100 UNIT/ML SYR SQ SCH (21:32)
[2023-04-14] MEDS: HEPARIN SODIUM,PORCINE/PF 5,000 UNIT/0.5 ML SYRINGE SQ SCH ×4 (00:43→17:37)
[2023-04-14 07:19] LABS: Glucose,Whole Blood 135 mg/dL (70-110)
[2023-04-14] MEDS: IPRATROPIUM-ALBUTEROL 3 ML NEB INHALATION SCH ×4 (07:36→20:16)
[2023-04-14] MEDS: BUDESONIDE 0.5 MG/2 ML NEBU INHALATION SCH ×2 (07:36→20:16)
[2023-04-14] MEDS: INSULIN ASPART (NovoLOG) 100 UNIT/ML VIAL SQ SCH ×3 (08:24→17:37)
[2023-04-14] MEDS: PANTOPRAZOLE 40 MG TABLET PO SCH ×2 (09:33→10:00)
[2023-04-14] MEDS: amLODIPine 10 MG TAB PO SCH ×2 (09:35→10:01)
[2023-04-14] MEDS: ASPIRIN 81 MG PO SCH ×2 (09:36→10:01)
[2023-04-14] MEDS: buPROPion SR 100 MG TABLET.ER PO SCH ×2 (09:36→10:01)
[2023-04-14] MEDS: DOCUSATE 100 MG CAP PO SCH ×3 (09:36→20:18)
[2023-04-14] MEDS: FENOFIBRATE 54 MG TAB PO SCH ×2 (09:38→10:02)
[2023-04-14] MEDS: DULoxetine HCL 60 MG CAPSULE.DR PO SCH ×2 (09:38→10:02)
[2023-04-14] MEDS: LOSARTAN 25 MG TAB PO SCH ×2 (09:39→10:02)
[2023-04-14] MEDS: METOPROLOL TARTRATE 50 MG TAB PO SCH ×3 (09:40→20:28)
[2023-04-14] MEDS: MULTIVITAMINS, THERA 1 EACH TAB PO SCH ×2 (09:40→10:02)
[2023-04-14] MEDS: POTASSIUM CHLORIDE ER 20 MEQ TAB.ER PO SCH ×2 (09:42→10:03)
[2023-04-14] MEDS: TAMSULOSIN 0.4 MG CAP.ER.24H PO SCH ×2 (09:42→10:03)
[2023-04-14] MEDS: NYSTATIN 100,000 UNIT/GM OINT 30 GM TUBE TOPICAL SCH ×3 (10:02→20:32)
[2023-04-14 12:10] LABS: Glucose,Whole Blood 129 mg/dL (70-110)
[2023-04-14 17:25] LABS: Glucose,Whole Blood 185 mg/dL (70-110)
[2023-04-14] MEDS: ALPRAZolam 0.25 MG TAB PO PRN (20:12)
[2023-04-14 20:22] LABS: Glucose,Whole Blood 232 mg/dL (70-110)
[2023-04-14] MEDS: ATORVASTATIN 40 MG TAB PO SCH (20:28)
[2023-04-14] MEDS: INSULIN DETEMIR (LEVEMIR) 100 UNIT/ML SYR SQ SCH (20:29)
--- NOTE | 2023-04-14 23:18 | PN ---
PROGRESS NOTE SUBJECTIVE: A white male, remains on diabetes medicine, prior CVA with right-sided weakness and urinary retention. Remains on blood pressure medicine, dyslipidemia, and COPD medications and prior stroke medicines. Wait for discharge planning. He is status post Hodgkin's lymphoma, radiations . OBJECTIVE: VITAL SIGNS: Temperature 98.4, blood pressure 113/62, O2 98, pulse 93, respiratory rate 18 to 20. CARDIOVASCULAR: S1, S2. LUNGS: Clear. GI: Soft. HEMATOLOGY: Negative for Homans. PSYCH: Fair mood and affect. Continue current treatment. PROGNOSIS: Guarded. radiation. Continue with diabetes medications and home medications. Accu-Chek protocol. Prognosis guarded. MMODL / IJN: [id number] /
[2023-04-15] MEDS: HEPARIN SODIUM,PORCINE/PF 5,000 UNIT/0.5 ML SYRINGE SQ SCH ×3 (00:10→16:47)
[2023-04-15] MEDS: ALPRAZolam 0.25 MG TAB PO PRN ×2 (06:43→20:18)
[2023-04-15 07:07] LABS: Glucose,Whole Blood 162 mg/dL (70-110)
[2023-04-15] MEDS: LOSARTAN 25 MG TAB PO SCH (07:08)
[2023-04-15] MEDS: amLODIPine 10 MG TAB PO SCH (07:08)
[2023-04-15] MEDS: METOPROLOL TARTRATE 50 MG TAB PO SCH (07:09)
[2023-04-15] MEDS: INSULIN ASPART (NovoLOG) 100 UNIT/ML VIAL SQ SCH ×4 (07:40→17:57)
[2023-04-15] MEDS: buPROPion SR 100 MG TABLET.ER PO SCH (07:58)
[2023-04-15] MEDS: PANTOPRAZOLE 40 MG TABLET PO SCH (07:58)
[2023-04-15] MEDS: FENOFIBRATE 54 MG TAB PO SCH (07:58)
[2023-04-15] MEDS: DIPHENOX-ATROP 2.5-0.025 MG 1 EACH TAB PO PRN (07:58)
[2023-04-15] MEDS: DULoxetine HCL 60 MG CAPSULE.DR PO SCH (07:58)
[2023-04-15] MEDS: POTASSIUM CHLORIDE ER 20 MEQ TAB.ER PO SCH (07:58)
[2023-04-15] MEDS: TAMSULOSIN 0.4 MG CAP.ER.24H PO SCH (07:58)
[2023-04-15] MEDS: ASPIRIN 81 MG PO SCH (07:59)
[2023-04-15] MEDS: MULTIVITAMINS, THERA 1 EACH TAB PO SCH (07:59)
[2023-04-15] MEDS: NYSTATIN 100,000 UNIT/GM OINT 30 GM TUBE TOPICAL SCH ×3 (08:00→20:20)
[2023-04-15] MEDS: DOCUSATE 100 MG CAP PO SCH ×2 (08:03→20:19)
[2023-04-15] MEDS: BUDESONIDE 0.5 MG/2 ML NEBU INHALATION SCH ×2 (09:19→20:08)
[2023-04-15] MEDS: IPRATROPIUM-ALBUTEROL 3 ML NEB INHALATION SCH ×4 (09:20→20:08)
[2023-04-15] MEDS ORDERED: SODIUM CHLORIDE 0.9% 500 ML 500 ML IV ONE (11:31)
[2023-04-15 11:54] LABS: Glucose,Whole Blood 246 mg/dL (70-110)
[2023-04-15 12:16] LABS: Basophils % (A) 0 %; Eosinophils # (A) 0.5 k/uL (0-0.7); Eosinophils % (A) 7 %; HGB 12.8 gm/dL (13.0-17.5); Lymphocytes # (A) 0.6 k/uL (1.0-4.8); Lymphocytes % (A) 10 %; MCH 30.9 pg (25.0-35.0); MCHC 32.8 g/dL (31.0-37.0); MCV 94.3 fL (80.0-100.0); Mean Platelet Volume 7.3; Monocytes # (A) 0.6 k/uL (0-1.0); Monocytes % (A) 9 %; Neutrophils # (A) 4.4 k/uL (1.3-7.7); Neutrophils % (A) 71 %; Platelet Count 208 k/uL (150-450); RBC 4.14 m/uL (4.30-5.90); RDW 14.1 % (11.5-15.5); WBC 6.1 k/uL (3.8-10.6)
--- NOTE | 2023-04-15 12:23 | PN ---
PROGRESS NOTE DATE OF SERVICE: 04/15/2023 SUBJECTIVE: This is a 67-year-old gentleman admitted with multiple complex medical issues with weakness, some cellulitis, history of stroke, is also having some hypotension. The patient continues to be confused. Blood pressure 88/53. PAST MEDICAL HISTORY: Reviewed. REVIEW OF SYSTEMS: Could not be taken. CURRENT MEDICATIONS: Reviewed. PHYSICAL EXAMINATION: VITAL SIGNS: Pulse is 97, blood pressure 88/53, respirations 16. HEENT: Conjunctivae normal. CARDIOVASCULAR: S1, S2. RESPIRATIONS: A few scattered rhonchi. ABDOMEN: Soft. NERVOUS SYSTEM: Nonfocal. LABORATORY DATA: Reviewed. ASSESSMENT: 1. Hypertension for evaluation, possibly of prerenal dehydration. 2. History of stroke. 3. History of cellulitis. 4. Change in mental status, metabolic encephalopathy. 5. Multiple medical issues. RECOMMENDATIONS: This is a 67-year-old gentleman, presented with multiple complex medical issues, we will monitor the patient closely. I would recommend to stop the anti-hypertensive medications and IV fluids. Stat labs CBC, CMP, portable chest x-ray. We will continue to monitor. Prognosis guarded because of multiple complex medical issues. Further recommendations to follow. The patient also was on metoprolol, which also will be held and further recommendations to follow. We will check labs also tomorrow and further recommendations to follow. See orders for further details. MMODL / IJN: [id number] /
[2023-04-15 12:27] LABS: African American GFR (CKD) >90 (>60 ml/min/1.73 sqM); Anion Gap 8 mmol/L; Blood Urea Nitrogen 31 mg/dL (9-20); Calcium 9.2 mg/dL (8.4-10.2); Carbon Dioxide 28 mmol/L (22-30); Chloride 103 mmol/L (98-107); Glucose 224 mg/dL (74-99); Non-African American GFR(CKD) 86 (>60 ml/min/1.73 sqM); Potassium 4.4 mmol/L (3.5-5.1); Sodium 139 mmol/L (137-145)
--- NOTE | 2023-04-15 13:13 | XR ---
EXAMINATION TYPE: XR chest 1V portable DATE OF EXAM: 04/15/2023 Comparison: 01/09/2023 Clinical History: 67-year-old male cough Findings: Asymmetric elevation left hemidiaphragm could reflect volume loss in the left base. Heart normal size . Strandy atelectasis left base. No markell consolidation or pleural effusion otherwise seen. [place] right lateral rib fracture deformity. Impression: Some asymmetric elevation left hemidiaphragm with strandy left basilar atelectasis. If concern for le ft hemidiaphragmatic paralysis, fluoroscopic sniff test could be performed. Otherwise, there are sales enablement lead ty appearing changes without definite acute process.
[2023-04-15] MEDS: NYSTATIN 100,000 UNIT/GM POWD 15 GM TOPICAL SCH ×2 (16:47→20:20)
[2023-04-15 17:11] LABS: Glucose,Whole Blood 165 mg/dL (70-110)
[2023-04-15] MEDS: ATORVASTATIN 40 MG TAB PO SCH (20:18)
[2023-04-15] MEDS: INSULIN DETEMIR (LEVEMIR) 100 UNIT/ML SYR SQ SCH (20:19)
[2023-04-15 20:36] LABS: Glucose,Whole Blood 253 mg/dL (70-110)
[2023-04-16] MEDS: HEPARIN SODIUM,PORCINE/PF 5,000 UNIT/0.5 ML SYRINGE SQ SCH ×4 (00:45→23:30)
[2023-04-16] MEDS: DIPHENOX-ATROP 2.5-0.025 MG 1 EACH TAB PO PRN ×2 (06:01→14:34)
[2023-04-16 07:25] LABS: Glucose,Whole Blood 121 mg/dL (70-110)
[2023-04-16] MEDS: IPRATROPIUM-ALBUTEROL 3 ML NEB INHALATION SCH ×4 (07:26→19:31)
[2023-04-16] MEDS: BUDESONIDE 0.5 MG/2 ML NEBU INHALATION SCH ×2 (07:26→19:31)
[2023-04-16] MEDS: PANTOPRAZOLE 40 MG TABLET PO SCH (07:35)
[2023-04-16] MEDS: DULoxetine HCL 60 MG CAPSULE.DR PO SCH (07:35)
[2023-04-16] MEDS: MULTIVITAMINS, THERA 1 EACH TAB PO SCH (07:35)
[2023-04-16] MEDS: FENOFIBRATE 54 MG TAB PO SCH (07:35)
[2023-04-16] MEDS: ASPIRIN 81 MG PO SCH (07:36)
[2023-04-16] MEDS: TAMSULOSIN 0.4 MG CAP.ER.24H PO SCH (07:36)
[2023-04-16] MEDS: LOSARTAN 25 MG TAB PO SCH (07:36)
[2023-04-16] MEDS: INSULIN ASPART (NovoLOG) 100 UNIT/ML VIAL SQ SCH ×3 (07:36→17:39)
[2023-04-16] MEDS: NYSTATIN 100,000 UNIT/GM OINT 30 GM TUBE TOPICAL SCH ×3 (07:36→20:40)
[2023-04-16] MEDS: NYSTATIN 100,000 UNIT/GM POWD 15 GM TOPICAL SCH ×3 (07:36→20:40)
[2023-04-16] MEDS: POTASSIUM CHLORIDE ER 20 MEQ TAB.ER PO SCH (07:36)
[2023-04-16] MEDS: buPROPion SR 100 MG TABLET.ER PO SCH (07:36)
[2023-04-16] MEDS: DOCUSATE 100 MG CAP PO SCH ×2 (07:37→20:40)
[2023-04-16 09:59] LABS: Basophils # (A) 0.04 X 10*3/uL (0.00-0.10); Basophils % (A) 0.7 %; Eosinophils # (A) 0.33 X 10*3/uL (0.04-0.35); Eosinophils % (A) 5.6 %; HCT 34.6 % (39.6-50.0); HGB 11.5 d/dL (12.0-15.0); Lymphocytes # (A) 0.58 X 10*3/uL (0.90-5.00); Lymphocytes % (A) 9.8 %; MCH 30.9 pg (27.0-32.0); MCHC 33.2 d/dL (32.0-37.0); Mean Platelet Volume 8.8 FL (9.5-12.2); Monocytes # (A) 0.68 X 10*3/uL (0.20-1.00); Monocytes % (A) 11.5 %; NRBC Per 100 WBC 0 X 10*3/uL (0.00-0.01); Neutrophils # (A) 4.26 X 10*3/uL (1.80-7.70); Neutrophils % (A) 72.1 %; Platelet Count 178 X 10*3/uL (140-440); RBC 3.72 X 10*6/uL (4.40-5.60); RDW 13.7 % (11.5-14.5); WBC 5.91 X 10*3/uL (4.50-10.00)
[2023-04-16 10:29] LABS: BUN/Creat Ratio 25.89 Ratio (12.00-20.00); Blood Urea Nitrogen 23.3 mg/dL (9.0-27.0); Calcium 9.3 mg/dL (8.7-10.3); Carbon Dioxide 23.5 mmol/L (21.6-31.8); Chloride 112 mmol/L (96-109); Glucose 139 mg/dL (70-110); Potassium 4.5 mmol/L (3.5-5.5); Sodium 144 mmol/L (135-145)
[2023-04-16 11:55] LABS: Glucose,Whole Blood 191 mg/dL (70-110)
[2023-04-16 17:14] LABS: Glucose,Whole Blood 171 mg/dL (70-110)
[2023-04-16] MEDS: ATORVASTATIN 40 MG TAB PO SCH (20:39)
[2023-04-16] MEDS: ALPRAZolam 0.25 MG TAB PO PRN (20:40)
[2023-04-16 20:44] LABS: Glucose,Whole Blood 214 mg/dL (70-110)
[2023-04-16] MEDS: INSULIN DETEMIR (LEVEMIR) 100 UNIT/ML SYR SQ SCH (21:15)
--- NOTE | 2023-04-16 23:11 | PN ---
PROGRESS NOTE DATE OF SERVICE: 04/16/2023 SUBJECTIVE: This is a 67-year-old gentleman, who was admitted with possible stroke, also had hypotension yesterday. The patient is improving significantly. Chest x-ray reviewed. OBJECTIVE: VITAL SIGNS: Pulse is 101, blood pressure 160/70, respirations 16. CHEST: Clear to auscultation. CARDIOVASCULAR: S1, S2. ABDOMEN: Soft. NERVOUS SYSTEM: Nonfocal. LABORATORY DATA: Hemoglobin 11.5. ASSESSMENT: 1. Hypotension, possibly dehydration, improved. 2. History of stroke. 3. History of hypertension. 4. History of cellulitis. 5. Change in mental status. 6. Multiple medical issues. RECOMMENDATIONS: Recommend to continue current management and continue symptomatic treatment. Otherwise, the blood pressure is improving at this time. If the blood pressure comes up, the patient can be restarted on Norvasc small dose. MMODL / IJN: [id number] /
[2023-04-17 07:02] LABS: Glucose,Whole Blood 141 mg/dL (70-110)
[2023-04-17] MEDS: INSULIN ASPART (NovoLOG) 100 UNIT/ML VIAL SQ SCH ×3 (07:06→17:39)
[2023-04-17] MEDS: IPRATROPIUM-ALBUTEROL 3 ML NEB INHALATION SCH ×4 (07:35→19:06)
[2023-04-17] MEDS: BUDESONIDE 0.5 MG/2 ML NEBU INHALATION SCH ×2 (07:36→19:06)
[2023-04-17] MEDS: LOSARTAN 25 MG TAB PO SCH (07:47)
[2023-04-17] MEDS: MULTIVITAMINS, THERA 1 EACH TAB PO SCH (07:47)
[2023-04-17] MEDS: HEPARIN SODIUM,PORCINE/PF 5,000 UNIT/0.5 ML SYRINGE SQ SCH ×2 (07:47→16:38)
[2023-04-17] MEDS: PANTOPRAZOLE 40 MG TABLET PO SCH (07:48)
[2023-04-17] MEDS: DULoxetine HCL 60 MG CAPSULE.DR PO SCH (07:48)
[2023-04-17] MEDS: POTASSIUM CHLORIDE ER 20 MEQ TAB.ER PO SCH (07:48)
[2023-04-17] MEDS: FENOFIBRATE 54 MG TAB PO SCH (07:48)
[2023-04-17] MEDS: DOCUSATE 100 MG CAP PO SCH ×2 (07:48→19:08)
[2023-04-17] MEDS: ASPIRIN 81 MG PO SCH (07:48)
[2023-04-17] MEDS: buPROPion SR 100 MG TABLET.ER PO SCH (07:48)
[2023-04-17] MEDS: TAMSULOSIN 0.4 MG CAP.ER.24H PO SCH (07:48)
[2023-04-17] MEDS: NYSTATIN 100,000 UNIT/GM OINT 30 GM TUBE TOPICAL SCH ×3 (07:49→20:58)
[2023-04-17] MEDS: NYSTATIN 100,000 UNIT/GM POWD 15 GM TOPICAL SCH ×3 (07:49→20:58)
[2023-04-17] MEDS ORDERED: amLODIPine 5 MG TAB PO SCH (09:00)
[2023-04-17 11:52] LABS: Glucose,Whole Blood 201 mg/dL (70-110)
[2023-04-17] MEDS: ALPRAZolam 0.25 MG TAB PO PRN (16:38)
[2023-04-17 17:13] LABS: Glucose,Whole Blood 242 mg/dL (70-110)
[2023-04-17 20:20] LABS: Glucose,Whole Blood 196 mg/dL (70-110)
[2023-04-17] MEDS: INSULIN DETEMIR (LEVEMIR) 100 UNIT/ML SYR SQ SCH (20:58)
[2023-04-17] MEDS: ATORVASTATIN 40 MG TAB PO SCH (20:58)
--- NOTE | 2023-04-18 02:21 | PN ---
PROGRESS NOTE SUBJECTIVE: This is a 67-year-old white male, failure to thrive, CVA with right-sided weakness, insulin-dependent diabetes mellitus, COPD. He remains good on room air during the day. His sugars are in the mid 100s to 200s. radiation treatment today of the Hodgkin's lymphoma on the left side of his neck, neck swelling is mostly bone. OBJECTIVE: VITAL SIGNS: His pulse is low at 100, temp is 98, respiratory rate 16 to 18, blood pressure is low at 90s over 60s. LUNGS: Clear. HEART: S1, S2. PSYCH: Fair mood and affect. NEUROLOGIC: Alert and oriented x3. OPHTHALMOLOGIC: Pupils equal, round, and reactive. Medications were reviewed. Possibly cut back on blood pressure medications. Prognosis guarded. Follow up in next 24 to 48 hours. MMSARAHL / IJN: [id number] /
[2023-04-18] MEDS: ALPRAZolam 0.25 MG TAB PO PRN ×2 (06:47→21:11)
[2023-04-18 06:59] LABS: Glucose,Whole Blood 100 mg/dL (70-110)
[2023-04-18] MEDS: INSULIN ASPART (NovoLOG) 100 UNIT/ML VIAL SQ SCH ×3 (07:26→17:51)
[2023-04-18] MEDS: DOCUSATE 100 MG CAP PO SCH ×2 (07:27→21:11)
[2023-04-18] MEDS: BUDESONIDE 0.5 MG/2 ML NEBU INHALATION SCH ×2 (08:12→20:49)
[2023-04-18] MEDS: IPRATROPIUM-ALBUTEROL 3 ML NEB INHALATION SCH ×4 (08:13→20:48)
[2023-04-18] MEDS: POTASSIUM CHLORIDE ER 20 MEQ TAB.ER PO SCH (09:31)
[2023-04-18] MEDS: ASPIRIN 81 MG PO SCH (09:31)
[2023-04-18] MEDS: PANTOPRAZOLE 40 MG TABLET PO SCH (09:31)
[2023-04-18] MEDS: MULTIVITAMINS, THERA 1 EACH TAB PO SCH (09:31)
[2023-04-18] MEDS: HEPARIN SODIUM,PORCINE/PF 5,000 UNIT/0.5 ML SYRINGE SQ SCH ×4 (09:31→23:00)
[2023-04-18] MEDS: LOSARTAN 25 MG TAB PO SCH (09:31)
[2023-04-18] MEDS: TAMSULOSIN 0.4 MG CAP.ER.24H PO SCH (09:31)
[2023-04-18] MEDS: FENOFIBRATE 54 MG TAB PO SCH (09:31)
[2023-04-18] MEDS: buPROPion SR 100 MG TABLET.ER PO SCH (09:31)
[2023-04-18] MEDS: DULoxetine HCL 60 MG CAPSULE.DR PO SCH (09:31)
[2023-04-18] MEDS: NYSTATIN 100,000 UNIT/GM OINT 30 GM TUBE TOPICAL SCH ×3 (09:32→22:25)
[2023-04-18] MEDS: NYSTATIN 100,000 UNIT/GM POWD 15 GM TOPICAL SCH ×3 (09:32→21:12)
[2023-04-18 11:10] LABS: Basophils # (A) 0.05 X 10*3/uL (0.00-0.10); Basophils % (A) 0.9 %; Eosinophils # (A) 0.52 X 10*3/uL (0.04-0.35); HGB 11.1 d/dL (12.0-15.0); Lymphocytes # (A) 0.51 X 10*3/uL (0.90-5.00); Lymphocytes % (A) 8.8 %; MCH 30.2 pg (27.0-32.0); MCHC 32.6 d/dL (32.0-37.0); MCV 92.4 FL (80.0-97.0); Mean Platelet Volume 8.8 FL (9.5-12.2); Monocytes # (A) 0.69 X 10*3/uL (0.20-1.00); Monocytes % (A) 11.9 %; NRBC Per 100 WBC 0 X 10*3/uL (0.00-0.01); Neutrophils # (A) 4.01 X 10*3/uL (1.80-7.70); Neutrophils % (A) 69.2 %; Platelet Count 177 X 10*3/uL (140-440); RBC 3.68 X 10*6/uL (4.40-5.60); RDW 13.6 % (11.5-14.5); WBC 5.79 X 10*3/uL (4.50-10.00)
[2023-04-18 11:39] LABS: ALT 10 U/L (10-49); AST 17 U/L (14-35); Albumin 3.7 d/dL (3.8-4.9); Albumin/Globulin Ratio 2.06 Ratio (1.60-3.17); Alkaline Phosphatase 68 U/L (41-126); BUN/Creat Ratio 22.75 Ratio (12.00-20.00); Blood Urea Nitrogen 18.2 mg/dL (9.0-27.0); Calcium 9.8 mg/dL (8.7-10.3); Carbon Dioxide 26.3 mmol/L (21.6-31.8); Chloride 106 mmol/L (96-109); Globulin 1.8 d/dL (1.6-3.3); Glucose 93 mg/dL (70-110); Potassium 4.2 mmol/L (3.5-5.5); Sodium 141 mmol/L (135-145); Total Bilirubin 0.3 mg/dL (0.3-1.2); Total Protein 5.5 d/dL (6.2-8.2)
[2023-04-18 11:46] LABS: Glucose,Whole Blood 171 mg/dL (70-110)
[2023-04-18 17:04] LABS: Glucose,Whole Blood 261 mg/dL (70-110)
[2023-04-18 20:20] LABS: Glucose,Whole Blood 151 mg/dL (70-110)
[2023-04-18] MEDS: INSULIN DETEMIR (LEVEMIR) 100 UNIT/ML SYR SQ SCH (21:11)
[2023-04-18] MEDS: ATORVASTATIN 40 MG TAB PO SCH (21:11)
--- NOTE | 2023-04-19 00:51 | PN ---
PROGRESS NOTE SUBJECTIVE: The patient is status post left last dose of radiation treatment for Hodgkin's lymphoma, he had a prior CVA with right-sided weakness, wait for discharge planning. Diabetes controlled, sugars in the mid 100s. OBJECTIVE: VITAL SIGNS: Pulse rate is in the low 100s, temp 98.4, blood pressure 120s over 80s, and O2 99% on room air. CARDIOVASCULAR: S1, S2. LUNGS: Sounds clear. HEMATOLOGY: Negative for Homans. He is on current treatments, PT OT, diabetic control. The rehab to go per his planner. MMODL / IJN: [id number] /
[2023-04-19 07:39] LABS: Glucose,Whole Blood 69 mg/dL (70-110)
[2023-04-19] MEDS: INSULIN ASPART (NovoLOG) 100 UNIT/ML VIAL SQ SCH ×3 (07:45→17:52)
[2023-04-19] MEDS: DOCUSATE 100 MG CAP PO SCH ×2 (07:53→21:56)
[2023-04-19] MEDS: FENOFIBRATE 54 MG TAB PO SCH (07:54)
[2023-04-19] MEDS: NYSTATIN 100,000 UNIT/GM POWD 15 GM TOPICAL SCH ×3 (07:54→21:57)
[2023-04-19] MEDS: DULoxetine HCL 60 MG CAPSULE.DR PO SCH (07:54)
[2023-04-19] MEDS: ASPIRIN 81 MG PO SCH (07:54)
[2023-04-19] MEDS: POTASSIUM CHLORIDE ER 20 MEQ TAB.ER PO SCH (07:54)
[2023-04-19] MEDS: PANTOPRAZOLE 40 MG TABLET PO SCH (07:54)
[2023-04-19] MEDS: NYSTATIN 100,000 UNIT/GM OINT 30 GM TUBE TOPICAL SCH ×3 (07:54→21:57)
[2023-04-19] MEDS: MULTIVITAMINS, THERA 1 EACH TAB PO SCH (07:54)
[2023-04-19] MEDS: HEPARIN SODIUM,PORCINE/PF 5,000 UNIT/0.5 ML SYRINGE SQ SCH ×2 (07:54→17:19)
[2023-04-19] MEDS: LOSARTAN 25 MG TAB PO SCH (07:54)
[2023-04-19] MEDS: TAMSULOSIN 0.4 MG CAP.ER.24H PO SCH (07:54)
[2023-04-19] MEDS: buPROPion SR 100 MG TABLET.ER PO SCH (07:54)
[2023-04-19] MEDS: BUDESONIDE 0.5 MG/2 ML NEBU INHALATION SCH ×2 (08:09→20:31)
[2023-04-19] MEDS: IPRATROPIUM-ALBUTEROL 3 ML NEB INHALATION SCH ×4 (08:09→20:31)
[2023-04-19 12:01] LABS: Glucose,Whole Blood 184 mg/dL (70-110)
--- NOTE | 2023-04-19 14:02 | P.PN ---
Subjective Progress Note Date: 04/19/23 Principal diagnosis: cervical lymphadenopathy At today's visit patient is resting comfortably in bed. Patient denies neck pain and dysphagia. Tolerating oral intake. S/p completion of 15 fractions of RT to left neck mass. No reported complaints Objective - Vital Signs Vital signs: Vital Signs Temp 97.6 F 04/19/23 11:54 Pulse 114 H 04/19/23 11:54 Resp 16 04/19/23 11:54 BP 129/75 04/19/23 11:54 Pulse Ox 93 L 04/19/23 11:54 FiO2 21 04/10/23 07:34 Intake & Output 04/18/23 04/19/23 04/19/23 18:59 06:59 18:59 Output Total 700 500 650 Balance -700 -500 -650 Weight 80 kg Output: Urine 700 500 650 Other: Voiding Method Diaper Diaper Diaper Incontinent Incontinent Incontinent External Catheter External Catheter External Catheter - Constitutional General appearance: Present: average body habitus, no acute distress - EENT Eyes: Present: anicteric sclerae, EOMI ENT: Present: hearing grossly normal - Neck Details: mild darkening of skin on left neck s/p RT, mass decreased in size - Respiratory Details: breathing is even and unlabored - Cardiovascular Details: skin warm and dry - Integumentary Integumentary: Absent: cyanotic - Musculoskeletal Musculoskeletal: Present: generalized weakness - Psychiatric Psychiatric: Present: A&O x's 3, appropriate affect, intact judgment & insight - Labs CBC & Chem 7: 04/18/23 06:23 04/18/23 06:23 Labs: Abnormal Lab Results - Last 24 Hours (Table) 04/18/23 04/18/23 04/19/23 Range/Units 17:03 20:16 07:38 POC Glucose (mg/dL) 261 H 151 H 69 L (70-110) mg/dL 04/19/23 Range/Units 12:00 POC Glucose (mg/dL) 184 H (70-110) mg/dL Assessment and Plan (1) Lymphadenopathy, cervical Current Visit: Yes Status: Acute Priority: High Code(s): R59.0 - LOCALIZED ENLARGED LYMPH NODES SNOMED Code(s): 893304033 (2) Hodgkin lymphoma Current Visit: Yes Status: Acute Priority: High Code(s): C81.90 - HODGKIN LYMPHOMA, UNSPECIFIED, UNSPECIFIED SITE SNOMED Code(s): 196200924 Plan: Hodgkin Lymphoma: -Left cervical lymph node biopsy revealed atypical lymphoreticular infiltrate consistent with Hodgkin's lymphoma. -PET scan revealed multiple left-sided neck lymph nodes which are enlarged with increased metabolic activity. Focal uptake near the wall of the cecum anteriorly which is indeterminate, SUV 5.0. General surgery consulted for evaluation for colonoscopy/EGD. EGD revealed midly inflamed antrum, biopsy negative for malignancy. Colonoscopy showed poor colon prep and evidence of diverticulosis, cecum appeared normal. Based on findings PET and EGD/colonoscopy, disease is localized to left neck and treatment at this time will consist of RT alone. Rad/onc following. S/p completion of 15 fractions of RT. Pt has 1 month f/u scheduled with rad onc. Will plan for clinic f/u with Dr. Olson upon discharge for observation and repeat scans every 6 months-1 year. Treatment plan and goals discussed with patient. -Due to complex social dynamics/finances social work is having difficulties finding patient placement. jig worker is working with APS/court system to hopefully find appropriate placement but unfortunately they has been no resolution at this time in regards to placement. Court case scheduled for 04/24
[2023-04-19 17:31] LABS: Glucose,Whole Blood 209 mg/dL (70-110)
[2023-04-19 20:29] LABS: Glucose,Whole Blood 140 mg/dL (70-110)
[2023-04-19] MEDS: INSULIN DETEMIR (LEVEMIR) 100 UNIT/ML SYR SQ SCH (20:51)
[2023-04-19] MEDS: ALPRAZolam 0.25 MG TAB PO PRN (21:56)
[2023-04-19] MEDS: ATORVASTATIN 40 MG TAB PO SCH (21:56)
[2023-04-19] MEDS: METOPROLOL TARTRATE 12.5 MG TAB PO SCH (21:56)
--- NOTE | 2023-04-19 23:03 | PN ---
PROGRESS NOTE SUBJECTIVE: This 67-year-old white male with failure to thrive, admitted status post radiation therapy. OBJECTIVE: CARDIOVASCULAR: S1, S2. LUNGS: Little bit tachycardic. LUNGS: Clear. GI: Soft. PLANS: Increase beta olga lidia for tachycardia, which was stopped over the weekend. Continue notation of radiation treatment for Hodgkin lymphoma. Prognosis guarded. MMODL / IJN: [id number] /
[2023-04-20] MEDS: HEPARIN SODIUM,PORCINE/PF 5,000 UNIT/0.5 ML SYRINGE SQ SCH ×4 (00:27→23:40)
[2023-04-20 07:06] LABS: Glucose,Whole Blood 146 mg/dL (70-110)
[2023-04-20] MEDS: INSULIN ASPART (NovoLOG) 100 UNIT/ML VIAL SQ SCH ×3 (08:12→18:04)
[2023-04-20] MEDS: ASPIRIN 81 MG PO SCH (08:13)
[2023-04-20] MEDS: PANTOPRAZOLE 40 MG TABLET PO SCH (08:13)
[2023-04-20] MEDS: DULoxetine HCL 60 MG CAPSULE.DR PO SCH (08:14)
[2023-04-20] MEDS: LOSARTAN 25 MG TAB PO SCH (08:14)
[2023-04-20] MEDS: buPROPion SR 100 MG TABLET.ER PO SCH (08:14)
[2023-04-20] MEDS: FENOFIBRATE 54 MG TAB PO SCH (08:14)
[2023-04-20] MEDS: MULTIVITAMINS, THERA 1 EACH TAB PO SCH (08:16)
[2023-04-20] MEDS: METOPROLOL TARTRATE 12.5 MG TAB PO SCH ×2 (08:16→20:12)
[2023-04-20] MEDS: POTASSIUM CHLORIDE ER 20 MEQ TAB.ER PO SCH (08:17)
[2023-04-20] MEDS: NYSTATIN 100,000 UNIT/GM POWD 15 GM TOPICAL SCH ×3 (08:18→21:11)
[2023-04-20] MEDS: NYSTATIN 100,000 UNIT/GM OINT 30 GM TUBE TOPICAL SCH ×3 (08:18→21:09)
[2023-04-20] MEDS: TAMSULOSIN 0.4 MG CAP.ER.24H PO SCH (08:18)
[2023-04-20] MEDS: ALPRAZolam 0.25 MG TAB PO PRN ×2 (08:43→21:09)
[2023-04-20] MEDS: BUDESONIDE 0.5 MG/2 ML NEBU INHALATION SCH ×2 (09:20→20:02)
[2023-04-20] MEDS: IPRATROPIUM-ALBUTEROL 3 ML NEB INHALATION SCH ×4 (09:20→20:02)
[2023-04-20] MEDS: DOCUSATE 100 MG CAP PO SCH ×2 (10:37→20:12)
[2023-04-20 11:58] LABS: Glucose,Whole Blood 273 mg/dL (70-110)
[2023-04-20 17:13] LABS: Glucose,Whole Blood 169 mg/dL (70-110)
[2023-04-20 20:06] LABS: Glucose,Whole Blood 171 mg/dL (70-110)
[2023-04-20] MEDS: INSULIN DETEMIR (LEVEMIR) 100 UNIT/ML SYR SQ SCH (20:12)
[2023-04-20] MEDS: ATORVASTATIN 40 MG TAB PO SCH (20:12)
[2023-04-21 07:05] LABS: Glucose,Whole Blood 154 mg/dL (70-110)
[2023-04-21] MEDS: HEPARIN SODIUM,PORCINE/PF 5,000 UNIT/0.5 ML SYRINGE SQ SCH ×3 (07:56→23:41)
[2023-04-21] MEDS: PANTOPRAZOLE 40 MG TABLET PO SCH (07:56)
[2023-04-21] MEDS: INSULIN ASPART (NovoLOG) 100 UNIT/ML VIAL SQ SCH ×4 (07:57→18:03)
[2023-04-21] MEDS: LOSARTAN 25 MG TAB PO SCH (07:59)
[2023-04-21] MEDS: DULoxetine HCL 60 MG CAPSULE.DR PO SCH (07:59)
[2023-04-21] MEDS: buPROPion SR 100 MG TABLET.ER PO SCH (07:59)
[2023-04-21] MEDS: FENOFIBRATE 54 MG TAB PO SCH (07:59)
[2023-04-21] MEDS: METOPROLOL TARTRATE 12.5 MG TAB PO SCH ×2 (07:59→20:38)
[2023-04-21] MEDS: TAMSULOSIN 0.4 MG CAP.ER.24H PO SCH (07:59)
[2023-04-21] MEDS: MULTIVITAMINS, THERA 1 EACH TAB PO SCH (07:59)
[2023-04-21] MEDS: POTASSIUM CHLORIDE ER 20 MEQ TAB.ER PO SCH (07:59)
[2023-04-21] MEDS: ASPIRIN 81 MG PO SCH (08:00)
[2023-04-21] MEDS: DOCUSATE 100 MG CAP PO SCH ×2 (08:00→20:39)
[2023-04-21] MEDS: NYSTATIN 100,000 UNIT/GM POWD 15 GM TOPICAL SCH ×3 (08:06→20:39)
[2023-04-21] MEDS: NYSTATIN 100,000 UNIT/GM OINT 30 GM TUBE TOPICAL SCH ×3 (08:07→20:39)
[2023-04-21] MEDS: BUDESONIDE 0.5 MG/2 ML NEBU INHALATION SCH ×2 (08:16→19:51)
[2023-04-21] MEDS: IPRATROPIUM-ALBUTEROL 3 ML NEB INHALATION SCH ×4 (08:16→19:51)
[2023-04-21 11:52] LABS: Glucose,Whole Blood 140 mg/dL (70-110)
--- NOTE | 2023-04-21 16:35 | PN ---
PROGRESS NOTE A 67-year-old white male looking for a rehab placement. He is done with his Hodgkin's treatment. His temp 97.9, pulse is 90s, respiratory rate 18 to 20, blood pressure 120 to 140s over 70s to 80s, O2 is 96% on room air. Cardiovascular, S1, S2. Lungs clear. GI, soft. Neurologic is pleasant, giving appropriate answers. Waiting for discharge planning. Continue with diabetic treatment and standard treatments for COPD and prior CVA. Sugars in the mid 100s. Waiting for fpc placement and discharge planning. MMODL / IJN: [id number] /
[2023-04-21 17:23] LABS: Glucose,Whole Blood 255 mg/dL (70-110)
[2023-04-21 20:23] LABS: Glucose,Whole Blood 155 mg/dL (70-110)
[2023-04-21] MEDS: ALPRAZolam 0.25 MG TAB PO PRN (20:38)
[2023-04-21] MEDS: ATORVASTATIN 40 MG TAB PO SCH (20:38)
[2023-04-21] MEDS: INSULIN DETEMIR (LEVEMIR) 100 UNIT/ML SYR SQ SCH (20:39)
[2023-04-22 06:56] LABS: Glucose,Whole Blood 156 mg/dL (70-110)
[2023-04-22] MEDS: INSULIN ASPART (NovoLOG) 100 UNIT/ML VIAL SQ SCH ×3 (07:59→17:56)
[2023-04-22] MEDS: METOPROLOL TARTRATE 12.5 MG TAB PO SCH ×2 (07:59→21:18)
[2023-04-22] MEDS: POTASSIUM CHLORIDE ER 20 MEQ TAB.ER PO SCH (07:59)
[2023-04-22] MEDS: buPROPion SR 100 MG TABLET.ER PO SCH (07:59)
[2023-04-22] MEDS: MULTIVITAMINS, THERA 1 EACH TAB PO SCH (07:59)
[2023-04-22] MEDS: ASPIRIN 81 MG PO SCH (07:59)
[2023-04-22] MEDS: TAMSULOSIN 0.4 MG CAP.ER.24H PO SCH (07:59)
[2023-04-22] MEDS: DOCUSATE 100 MG CAP PO SCH ×2 (07:59→21:18)
[2023-04-22] MEDS: DULoxetine HCL 60 MG CAPSULE.DR PO SCH (07:59)
[2023-04-22] MEDS: LOSARTAN 25 MG TAB PO SCH (07:59)
[2023-04-22] MEDS: HEPARIN SODIUM,PORCINE/PF 5,000 UNIT/0.5 ML SYRINGE SQ SCH ×3 (07:59→23:39)
[2023-04-22] MEDS: FENOFIBRATE 54 MG TAB PO SCH (07:59)
[2023-04-22] MEDS: PANTOPRAZOLE 40 MG TABLET PO SCH (07:59)
[2023-04-22] MEDS: NYSTATIN 100,000 UNIT/GM POWD 15 GM TOPICAL SCH ×3 (08:00→21:18)
[2023-04-22] MEDS: NYSTATIN 100,000 UNIT/GM OINT 30 GM TUBE TOPICAL SCH ×3 (08:00→21:18)
[2023-04-22] MEDS: IPRATROPIUM-ALBUTEROL 3 ML NEB INHALATION SCH ×4 (09:03→18:16)
[2023-04-22] MEDS: BUDESONIDE 0.5 MG/2 ML NEBU INHALATION SCH ×2 (09:03→18:16)
[2023-04-22 11:51] LABS: Glucose,Whole Blood 198 mg/dL (70-110)
--- NOTE | 2023-04-22 14:01 | P.PN ---
Subjective Progress Note Date: 04/22/23 Patient is a 67-year-old male with a past medical history significant for right hemiplegia secondary to CVA history of failure to failure requiring tracheostomy subsequently worsened has been brought in the hospital for generalized weakness and debility and concern for possible cellulitis to the previous trach site patient did have a CT of the soft tissue of the neck did not show any evidence of abscess, patient has been adequately treated for cellulitis of the neck patient is currently in the hospital for 40+ days and is awaiting for placement 03/24. Dr. Garsia covering for Dr. Reynolds. Patient seen and examined. Does not look in acute distress. Currently tolerating diet. Went for radiation treatment today 03/25. Patient seen and examined. No acute issues overnight. Vital signs stable. Tolerating diet. 03/26. Patient seen and examined. Vital signs done this morning show te mperature 97.4, heart rate 68, respirations 16, blood pressure 142/70. No acute issues overnight. Vital signs stable 04/22. Dr. Garsia is covering for Dr. Reynolds patient seen and examined. No acute issues overnight REVIEW OF SYSTEMS: CONSTITUTIONAL: No fever, no malaise,. CARDIOVASCULAR: No chest pain, no palpitations, no syncope. PULMONARY: No shortness of breath, no cough, GASTROINTESTINAL: No diarrhea, no nausea, no vomiting, no abdominal pain. NEUROLOGICAL: No headaches, no weakness, PHYSICAL EXAMINATION: GENERAL: The patient is alert and oriented x3, not in any acute distress. Well developed, well nourished. HEENT: Pupils are round and equally reacting to light. EOMI. No scleral icterus. No conjunctival pallor. Normocephalic, atraumatic. No pharyngeal erythema. No thyromegaly. CARDIOVASCULAR: S1 and S2 present. No murmurs, rubs, or gallops. PULMONARY: Chest is clear to auscultation, no wheezing or crackles. ABDOMEN: Soft, nontender, nondistended, normoactive bowel sounds. No palpable organomegaly. MUSCULOSKELETAL: No joint swelling or deformity. EXTREMITIES: No cyanosis, clubbing, or pedal edema. NEUROLOGICAL: Gross neurological examination did not reveal any focal deficits. SKIN: No rashes. Assessment and plan Hodgkin's lymphoma UTI due to indwelling catheter Lymphocele of the neck. Improved Antral gastritis noted on EGD Cervical adenopathy History of prior CVA Monitor vital signs Monitor CBC Monitor CMP -PET scan revealed multiple left-sided neck lymph nodes which are enlarged with increased metabolic activity. Focal uptake near the wall of the cecum anteriorly which is indeterminate, SUV 5.0. General surgery consulted for evaluation for colonoscopy/EGD. EGD revealed midly inflamed antrum, biopsy negative for malignancy. Colonoscopy showed poor colon prep and evidence of diverticulosis, cecum appeared normal. Based on findings PET and EGD/colonoscopy, disease is localized to left neck and treatment at this time will consist of RT alone. Rad/onc following, plan for 15 fractions. Hematology oncology following the patient -Due to complex social dynamics/finances social work is having difficulties finding patient placement. end worker is working with [employer] system to hopefully find appropriate placement but unfortunately they has been no resolution at this time in regards to placement. Continue rest of treatment for now Objective - Vital Signs Vital signs: Vital Signs Temp 98.4 F 04/22/23 06:55 Pulse 89 04/22/23 06:55 Resp 17 04/22/23 06:55 BP 126/78 04/22/23 06:55 Pulse Ox 98 04/22/23 08:42 FiO2 21 04/22/23 08:42 Intake & Output 04/21/23 04/22/23 04/22/23 18:59 06:59 18:59 Output Total 550 400 Balance -550 -400 Output: Urine 550 400 Other: Voiding Method External Catheter External Catheter External Catheter - Labs CBC & Chem 7: 04/18/23 06:23 04/18/23 06:23 Labs: Abnormal Lab Results - Last 24 Hours (Table) 04/21/23 04/21/23 04/21/23 Range/Units 11:51 17:21 20:20 POC Glucose (mg/dL) 140 H 255 H 155 H (70-110) mg/dL 04/22/23 Range/Units 06:55 POC Glucose (mg/dL) 156 H (70-110) mg/dL
[2023-04-22 17:02] LABS: Glucose,Whole Blood 194 mg/dL (70-110)
[2023-04-22 20:17] LABS: Glucose,Whole Blood 181 mg/dL (70-110)
[2023-04-22] MEDS: ALPRAZolam 0.25 MG TAB PO PRN (21:18)
[2023-04-22] MEDS: ATORVASTATIN 40 MG TAB PO SCH (21:18)
[2023-04-22] MEDS: INSULIN DETEMIR (LEVEMIR) 100 UNIT/ML SYR SQ SCH (21:18)
[2023-04-23 02:37] LABS: Glucose,Whole Blood 114 mg/dL (70-110)
[2023-04-23 06:57] LABS: Glucose,Whole Blood 101 mg/dL (70-110)
[2023-04-23] MEDS: INSULIN ASPART (NovoLOG) 100 UNIT/ML VIAL SQ SCH ×3 (07:17→17:40)
[2023-04-23] MEDS: IPRATROPIUM-ALBUTEROL 3 ML NEB INHALATION SCH ×4 (09:06→19:57)
[2023-04-23] MEDS: BUDESONIDE 0.5 MG/2 ML NEBU INHALATION SCH ×2 (09:06→19:57)
[2023-04-23] MEDS: PANTOPRAZOLE 40 MG TABLET PO SCH (09:24)
[2023-04-23] MEDS: buPROPion SR 100 MG TABLET.ER PO SCH (09:24)
[2023-04-23] MEDS: DOCUSATE 100 MG CAP PO SCH ×2 (09:24→20:40)
[2023-04-23] MEDS: HEPARIN SODIUM,PORCINE/PF 5,000 UNIT/0.5 ML SYRINGE SQ SCH ×3 (09:24→23:56)
[2023-04-23] MEDS: DULoxetine HCL 60 MG CAPSULE.DR PO SCH (09:24)
[2023-04-23] MEDS: ASPIRIN 81 MG PO SCH (09:24)
[2023-04-23] MEDS: NYSTATIN 100,000 UNIT/GM POWD 15 GM TOPICAL SCH ×3 (09:25→20:40)
[2023-04-23] MEDS: LOSARTAN 25 MG TAB PO SCH (09:25)
[2023-04-23] MEDS: MULTIVITAMINS, THERA 1 EACH TAB PO SCH (09:25)
[2023-04-23] MEDS: METOPROLOL TARTRATE 12.5 MG TAB PO SCH ×2 (09:25→20:40)
[2023-04-23] MEDS: FENOFIBRATE 54 MG TAB PO SCH (09:25)
[2023-04-23] MEDS: POTASSIUM CHLORIDE ER 20 MEQ TAB.ER PO SCH (09:25)
[2023-04-23] MEDS: NYSTATIN 100,000 UNIT/GM OINT 30 GM TUBE TOPICAL SCH ×3 (09:25→20:40)
[2023-04-23] MEDS: TAMSULOSIN 0.4 MG CAP.ER.24H PO SCH (09:25)
[2023-04-23 11:41] LABS: Glucose,Whole Blood 175 mg/dL (70-110)
--- NOTE | 2023-04-23 15:44 | P.PN ---
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 Dr. Garsia covering for Dr. Reynolds. Patient seen and examined. Does not look in acute distress. Currently tolerating diet. Went for radiation treatment today 03/25. Patient seen and examined. No acute issues overnight. Vital signs stable. Tolerating diet. 03/26. Patient seen and examined. Vital signs done this morning show te mperature 97.4, heart rate 68, respirations 16, blood pressure 142/70. No acute issues overnight. Vital signs stable 04/22. Dr. Garsia is covering for Dr. Reynolds patient seen and examined. No acute issues overnight 04/23. Patient seen and examined. No acute issues overnight REVIEW OF SYSTEMS: CONSTITUTIONAL: No fever, no malaise,. CARDIOVASCULAR: No chest pain, no palpitations, no syncope. PULMONARY: No shortness of breath, no cough, GASTROINTESTINAL: No diarrhea, no nausea, no vomiting, no abdominal pain. NEUROLOGICAL: No headaches, no weakness, PHYSICAL EXAMINATION: GENERAL: The patient is alert and oriented x3, not in any acute distress. Well developed, well nourished. HEENT: Pupils are round and equally reacting to light. EOMI. No scleral icterus. No conjunctival pallor. Normocephalic, atraumatic. No pharyngeal erythema. No thyromegaly. CARDIOVASCULAR: S1 and S2 present. No murmurs, rubs, or gallops. PULMONARY: Chest is clear to auscultation, no wheezing or crackles. ABDOMEN: Soft, nontender, nondistended, normoactive bowel sounds. No palpable organomegaly. MUSCULOSKELETAL: No joint swelling or deformity. EXTREMITIES: No cyanosis, clubbing, or pedal edema. NEUROLOGICAL: Gross neurological examination did not reveal any focal deficits. SKIN: No rashes. Assessment and plan Hodgkin's lymphoma UTI due to indwelling catheter Lymphocele of the neck. Improved Antral gastritis noted on EGD Cervical adenopathy History of prior CVA Monitor vital signs Monitor CBC Monitor CMP -PET scan revealed multiple left-sided neck lymph nodes which are enlarged with increased metabolic activity. Focal uptake near the wall of the cecum anteriorly which is indeterminate, SUV 5.0. General surgery consulted for evaluation for colonoscopy/EGD. EGD revealed midly inflamed antrum, biopsy negative for malignancy. Colonoscopy showed poor colon prep and evidence of diverticulosis, cecum appeared normal. Based on findings PET and EGD /colonoscopy, disease is localized to left neck and treatment at this time will consist of RT alone. Rad/onc following, plan for 15 fractions. Hematology oncology following the patient -Due to complex social dynamics/finances social work is having difficulties finding patient placement. night worker is working with [facility] to hopefully find appropriate placement but unfortunately they has been no resolution at this time in regards to placement. Continue rest of treatment for now Objective - Vital Signs Vital signs: Vital Signs Temp 97.5 F L 04/23/23 11:50 Pulse 86 04/23/23 11:50 Resp 17 04/23/23 11:50 BP 138/86 04/23/23 11:50 Pulse Ox 99 04/23/23 11:50 FiO2 21 04/23/23 08:55 Intake & Output 04/22/23 04/23/23 04/23/23 18:59 06:59 18:59 Output Total 300 800 1 Balance -300 -800 -1 Output: Urine 300 800 Stool 1 Other: Voiding Method External Catheter External Catheter External Catheter # Bowel Movements 1 - Labs CBC & Chem 7: 04/18/23 06:23 04/18/23 06:23 Labs: Abnormal Lab Results - Last 24 Hours (Table) 04/22/23 04/22/23 04/23/23 Range/Units 17:01 20:15 02:34 POC Glucose (mg/dL) 194 H 181 H 114 H (70-110) mg/dL 04/23/23 Range/Units 11:40 POC Glucose (mg/dL) 175 H (70-110) mg/dL
[2023-04-23 17:05] LABS: Glucose,Whole Blood 187 mg/dL (70-110)
[2023-04-23] MEDS: ALPRAZolam 0.25 MG TAB PO PRN (17:40)
[2023-04-23 20:14] LABS: Glucose,Whole Blood 215 mg/dL (70-110)
[2023-04-23] MEDS: INSULIN DETEMIR (LEVEMIR) 100 UNIT/ML SYR SQ SCH (20:40)
[2023-04-23] MEDS: ATORVASTATIN 40 MG TAB PO SCH (20:40)
[2023-04-24 07:21] LABS: Glucose,Whole Blood 96 mg/dL (70-110)
[2023-04-24] MEDS: INSULIN ASPART (NovoLOG) 100 UNIT/ML VIAL SQ SCH ×3 (07:25→17:49)
[2023-04-24] MEDS: HEPARIN SODIUM,PORCINE/PF 5,000 UNIT/0.5 ML SYRINGE SQ SCH ×3 (08:05→23:54)
[2023-04-24] MEDS: PANTOPRAZOLE 40 MG TABLET PO SCH (08:06)
[2023-04-24] MEDS: METOPROLOL TARTRATE 12.5 MG TAB PO SCH ×2 (08:06→20:22)
[2023-04-24] MEDS: DULoxetine HCL 60 MG CAPSULE.DR PO SCH (08:06)
[2023-04-24] MEDS: buPROPion SR 100 MG TABLET.ER PO SCH (08:06)
[2023-04-24] MEDS: MULTIVITAMINS, THERA 1 EACH TAB PO SCH (08:06)
[2023-04-24] MEDS: ASPIRIN 81 MG PO SCH (08:06)
[2023-04-24] MEDS: POTASSIUM CHLORIDE ER 20 MEQ TAB.ER PO SCH (08:06)
[2023-04-24] MEDS: FENOFIBRATE 54 MG TAB PO SCH (08:06)
[2023-04-24] MEDS: DOCUSATE 100 MG CAP PO SCH ×2 (08:06→20:22)
[2023-04-24] MEDS: TAMSULOSIN 0.4 MG CAP.ER.24H PO SCH (08:06)
[2023-04-24] MEDS: LOSARTAN 25 MG TAB PO SCH (08:06)
[2023-04-24] MEDS: BUDESONIDE 0.5 MG/2 ML NEBU INHALATION SCH ×2 (08:23→20:54)
[2023-04-24] MEDS: IPRATROPIUM-ALBUTEROL 3 ML NEB INHALATION SCH ×4 (08:23→20:54)
[2023-04-24] MEDS: NYSTATIN 100,000 UNIT/GM OINT 30 GM TUBE TOPICAL SCH ×3 (11:05→20:22)
[2023-04-24] MEDS: NYSTATIN 100,000 UNIT/GM POWD 15 GM TOPICAL SCH ×3 (11:05→20:22)
[2023-04-24 12:21] LABS: Glucose,Whole Blood 161 mg/dL (70-110)
[2023-04-24] MEDS: ALPRAZolam 0.25 MG TAB PO PRN ×2 (13:02→20:22)
--- NOTE | 2023-04-24 15:52 | P.PN ---
Subjective Progress Note Date: 04/24/23 Principal diagnosis: Left parotid mass, cervical lymphadenopathy-Hodgkin's Disease Pt reports no pain, dysphagia, odynophagia, difficulty breathing. He is tolerating oral intake. Denies any pain. Objective - Vital Signs Vital signs: Vital Signs Temp 97.6 F 04/24/23 12:19 Pulse 80 04/24/23 15:47 Resp 18 04/24/23 12:19 BP 116/71 04/24/23 12:19 Pulse Ox 98 04/24/23 12:19 FiO2 21 04/23/23 08:55 Intake & Output 04/23/23 04/24/23 04/24/23 18:59 06:59 18:59 Intake Total 400 Output Total 601 200 Balance -601 200 Intake: Oral 400 Output: Urine 600 200 Stool 1 Other: Voiding Method External Catheter External Catheter External Catheter - Constitutional General appearance: Present: average body habitus, cooperative, no acute distress - EENT Eyes: Present: anicteric sclerae, EOMI ENT: Present: hearing grossly normal, normal oropharynx - Respiratory Details: Respirations even and unlabored at rest - Cardiovascular Details: Skin is warm and dry to the touch - Peripheral edema leg Peripheral Edema: bilateral: None - Gastrointestinal General gastrointestinal: Present: soft - Integumentary Integumentary Comment(s): Left neck lymph node excision site is healed, mild skin toxicity secondary to radiation - Musculoskeletal Musculoskeletal: Present: generalized weakness - Psychiatric Psychiatric: Present: A&O x's 3 - Labs CBC & Chem 7: 04/18/23 06:23 04/18/23 06:23 Labs: Abnormal Lab Results - Last 24 Hours (Table) 04/23/23 04/23/23 04/24/23 Range/Units 17:03 20:07 12:20 POC Glucose (mg/dL) 187 H 215 H 161 H (70-110) mg/dL Assessment and Plan (1) Failure to thrive Current Visit: Yes Status: Acute Priority: High Code(s): REN3473 - SNOMED Code(s): 62129512 (2) Lymphadenopathy, cervical Current Visit: Yes Status: Acute Priority: High Code(s): R59.0 - LOCALIZED ENLARGED LYMPH NODES SNOMED Code(s): 245478403 Plan: Hodgkin Lymphoma -Lt neck LN excision. Status post radiation, curative intent. Treatment is complete. -Radiation Onc f/u Social Work trying to sort out pt complicated social situation and possible get placement
[2023-04-24 17:24] LABS: Glucose,Whole Blood 254 mg/dL (70-110)
[2023-04-24 19:47] LABS: Glucose,Whole Blood 259 mg/dL (70-110)
[2023-04-24] MEDS: ATORVASTATIN 40 MG TAB PO SCH (20:22)
[2023-04-24] MEDS: INSULIN DETEMIR (LEVEMIR) 100 UNIT/ML SYR SQ SCH (20:23)
[2023-04-25] MEDS: IPRATROPIUM-ALBUTEROL 3 ML NEB INHALATION SCH ×4 (07:43→19:54)
[2023-04-25] MEDS: BUDESONIDE 0.5 MG/2 ML NEBU INHALATION SCH ×2 (07:43→19:54)
[2023-04-25 07:55] LABS: Glucose,Whole Blood 93 mg/dL (70-110)
[2023-04-25] MEDS: INSULIN ASPART (NovoLOG) 100 UNIT/ML VIAL SQ SCH ×3 (08:04→17:50)
[2023-04-25] MEDS: PANTOPRAZOLE 40 MG TABLET PO SCH (08:07)
[2023-04-25] MEDS: TAMSULOSIN 0.4 MG CAP.ER.24H PO SCH (08:07)
[2023-04-25] MEDS: ASPIRIN 81 MG PO SCH (08:08)
[2023-04-25] MEDS: POTASSIUM CHLORIDE ER 20 MEQ TAB.ER PO SCH (08:08)
[2023-04-25] MEDS: LOSARTAN 25 MG TAB PO SCH (08:08)
[2023-04-25] MEDS: DOCUSATE 100 MG CAP PO SCH ×2 (08:08→20:19)
[2023-04-25] MEDS: NYSTATIN 100,000 UNIT/GM POWD 15 GM TOPICAL SCH ×3 (08:08→20:20)
[2023-04-25] MEDS: buPROPion SR 100 MG TABLET.ER PO SCH (08:08)
[2023-04-25] MEDS: NYSTATIN 100,000 UNIT/GM OINT 30 GM TUBE TOPICAL SCH ×3 (08:08→20:20)
[2023-04-25] MEDS: METOPROLOL TARTRATE 12.5 MG TAB PO SCH ×2 (08:08→20:19)
[2023-04-25] MEDS: DULoxetine HCL 60 MG CAPSULE.DR PO SCH (08:08)
[2023-04-25] MEDS: HEPARIN SODIUM,PORCINE/PF 5,000 UNIT/0.5 ML SYRINGE SQ SCH ×2 (08:08→16:47)
[2023-04-25] MEDS: FENOFIBRATE 54 MG TAB PO SCH (08:08)
[2023-04-25] MEDS: MULTIVITAMINS, THERA 1 EACH TAB PO SCH (08:08)
[2023-04-25 12:27] LABS: Glucose,Whole Blood 172 mg/dL (70-110)
[2023-04-25 17:23] LABS: Glucose,Whole Blood 269 mg/dL (70-110)
[2023-04-25] MEDS: ALPRAZolam 0.25 MG TAB PO PRN (19:32)
[2023-04-25 20:12] LABS: Glucose,Whole Blood 196 mg/dL (70-110)
[2023-04-25] MEDS: ATORVASTATIN 40 MG TAB PO SCH (20:19)
[2023-04-25] MEDS: INSULIN DETEMIR (LEVEMIR) 100 UNIT/ML SYR SQ SCH (20:19)
--- NOTE | 2023-04-25 21:45 | PN ---
PROGRESS NOTE SUBJECTIVE: A 67-year-old white male admitted with failure to thrive. Continues to do well. Pending discharge planning. OBJECTIVE: CARDIOVASCULAR: S1 and S2. LUNGS: Clear. GI: Soft. HEMATOLOGY: Negative Homans. PSYCHIATRIC: Fair mood and affect. Sugars are doing good in the mid 100s. Remains on Cymbalta for depression, Levemir 16 units for diabetes, Mycostatin ointment for candidiasis, Protonix for GERD, Pulmicort and DuoNeb for his breathing. Sugars as mentioned are doing well. Prognosis is guarded. Awaiting discharge recommendations. He had prior cerebrovascular accident with right-sided weakness, chronic obstructive pulmonary disease, diabetes mellitus, hypertension, and obesity, gastroesophageal reflux disease. Continue current treatment. MMODL / IJN: [id number] /
[2023-04-26] MEDS: HEPARIN SODIUM,PORCINE/PF 5,000 UNIT/0.5 ML SYRINGE SQ SCH ×3 (01:00→15:52)
[2023-04-26 07:07] LABS: Glucose,Whole Blood 89 mg/dL (70-110)
[2023-04-26] MEDS: INSULIN ASPART (NovoLOG) 100 UNIT/ML VIAL SQ SCH ×3 (08:00→17:00)
[2023-04-26] MEDS: MULTIVITAMINS, THERA 1 EACH TAB PO SCH (08:01)
[2023-04-26] MEDS: buPROPion SR 100 MG TABLET.ER PO SCH (08:01)
[2023-04-26] MEDS: DOCUSATE 100 MG CAP PO SCH ×2 (08:01→20:33)
[2023-04-26] MEDS: ASPIRIN 81 MG PO SCH (08:01)
[2023-04-26] MEDS: TAMSULOSIN 0.4 MG CAP.ER.24H PO SCH (08:01)
[2023-04-26] MEDS: FENOFIBRATE 54 MG TAB PO SCH (08:02)
[2023-04-26] MEDS: LOSARTAN 25 MG TAB PO SCH (08:02)
[2023-04-26] MEDS: DULoxetine HCL 60 MG CAPSULE.DR PO SCH (08:02)
[2023-04-26] MEDS: METOPROLOL TARTRATE 12.5 MG TAB PO SCH ×2 (08:02→20:33)
[2023-04-26] MEDS: PANTOPRAZOLE 40 MG TABLET PO SCH (08:02)
[2023-04-26] MEDS: POTASSIUM CHLORIDE ER 20 MEQ TAB.ER PO SCH (08:02)
[2023-04-26] MEDS: NYSTATIN 100,000 UNIT/GM POWD 15 GM TOPICAL SCH ×3 (08:04→20:34)
[2023-04-26] MEDS: NYSTATIN 100,000 UNIT/GM OINT 30 GM TUBE TOPICAL SCH ×3 (08:04→20:34)
[2023-04-26] MEDS: IPRATROPIUM-ALBUTEROL 3 ML NEB INHALATION SCH ×4 (08:28→20:02)
[2023-04-26] MEDS: BUDESONIDE 0.5 MG/2 ML NEBU INHALATION SCH ×2 (08:28→20:02)
[2023-04-26] MEDS: ALPRAZolam 0.25 MG TAB PO PRN ×2 (09:15→20:33)
[2023-04-26 11:56] LABS: Glucose,Whole Blood 152 mg/dL (70-110)
[2023-04-26 16:46] LABS: Glucose,Whole Blood 204 mg/dL (70-110)
[2023-04-26 19:50] LABS: Glucose,Whole Blood 162 mg/dL (70-110)
[2023-04-26] MEDS: ATORVASTATIN 40 MG TAB PO SCH (20:33)
[2023-04-26] MEDS: INSULIN DETEMIR (LEVEMIR) 100 UNIT/ML SYR SQ SCH (20:33)
[2023-04-27] MEDS: HEPARIN SODIUM,PORCINE/PF 5,000 UNIT/0.5 ML SYRINGE SQ SCH ×3 (00:21→17:33)
[2023-04-27] MEDS: ALPRAZolam 0.25 MG TAB PO PRN ×2 (05:09→19:55)
[2023-04-27 07:12] LABS: Glucose,Whole Blood 153 mg/dL (70-110)
[2023-04-27] MEDS: INSULIN ASPART (NovoLOG) 100 UNIT/ML VIAL SQ SCH ×3 (08:38→17:12)
[2023-04-27] MEDS: DULoxetine HCL 60 MG CAPSULE.DR PO SCH (08:40)
[2023-04-27] MEDS: DOCUSATE 100 MG CAP PO SCH ×2 (08:41→19:47)
[2023-04-27] MEDS: LOSARTAN 25 MG TAB PO SCH (08:41)
[2023-04-27] MEDS: FENOFIBRATE 54 MG TAB PO SCH (08:41)
[2023-04-27] MEDS: ASPIRIN 81 MG PO SCH (08:41)
[2023-04-27] MEDS: METOPROLOL TARTRATE 12.5 MG TAB PO SCH ×2 (08:41→19:51)
[2023-04-27] MEDS: PANTOPRAZOLE 40 MG TABLET PO SCH (08:41)
[2023-04-27] MEDS: buPROPion SR 100 MG TABLET.ER PO SCH (08:42)
[2023-04-27] MEDS: TAMSULOSIN 0.4 MG CAP.ER.24H PO SCH (08:42)
[2023-04-27] MEDS: MULTIVITAMINS, THERA 1 EACH TAB PO SCH (08:42)
[2023-04-27] MEDS: BUDESONIDE 0.5 MG/2 ML NEBU INHALATION SCH ×2 (08:45→19:37)
[2023-04-27] MEDS: IPRATROPIUM-ALBUTEROL 3 ML NEB INHALATION SCH ×4 (08:45→19:37)
[2023-04-27] MEDS: POTASSIUM CHLORIDE ER 20 MEQ TAB.ER PO SCH (08:51)
[2023-04-27] MEDS: NYSTATIN 100,000 UNIT/GM POWD 15 GM TOPICAL SCH ×3 (11:13→19:51)
[2023-04-27] MEDS: NYSTATIN 100,000 UNIT/GM OINT 30 GM TUBE TOPICAL SCH ×3 (11:13→19:51)
[2023-04-27 11:42] LABS: Glucose,Whole Blood 185 mg/dL (70-110)
[2023-04-27 17:09] LABS: Glucose,Whole Blood 137 mg/dL (70-110)
[2023-04-27] MEDS: DIPHENOX-ATROP 2.5-0.025 MG 1 EACH TAB PO PRN (19:50)
[2023-04-27] MEDS: ATORVASTATIN 40 MG TAB PO SCH (19:51)
[2023-04-27 20:18] LABS: Glucose,Whole Blood 166 mg/dL (70-110)
[2023-04-27] MEDS: INSULIN DETEMIR (LEVEMIR) 100 UNIT/ML SYR SQ SCH (21:16)
--- NOTE | 2023-04-27 22:48 | DS ---
DISCHARGE SUMMARY DISCHARGE DIAGNOSIS: Cellulitis of the neck, dehydration, failure to thrive, CVA, right-sided hemiparesis, COPD, prior stroke, hypertension, dyslipidemia, insulin-dependent diabetes mellitus, BPH. HOME MEDICATIONS: 1. DuoNeb updrafts q.i.d. 2. Nystatin cream or powder b.i.d. to the groins and rashes. 3. K-Dur 20 mEq daily. 4. Vibramycin 100 mg b.i.d. for 7 days. 5. Wellbutrin XR 100 mg daily. 6. Flomax 0.4 mg daily. 7. Levemir 16 units daily. 8. Xanax 0.25 t.i.d. p.r.n. 9. Nystatin powder as mentioned above. 10.Pulmicort nebulizer 0.5 mg b.i.d. 11.Colace 100 mg b.i.d. 12.Lopressor 12.5 b.i.d. 13.Protonix 40 mg b.i.d. 14.Lipitor 40 mg q.h.s. 15.Fenofibrate 54 mg daily. 16.Argyle 6/325 every 6 hours p.r.n. for pain. 17.Aspirin 81 mg daily. 18.Cozaar 25 mg daily. 19.Plavix 75 mg once daily. 20.Multivitamin daily. 21.Cymbalta 60 mg daily. CONDITION: Stable. PROGNOSIS: Guarded. ACTIVITY: Ambulate as tolerated. The patient came in initially to the hospital with altered mental status, COPD with a prior stroke with right-sided weakness, metabolic encephalopathy secondary to COPD exacerbation, hypoxemia, prior stroke, dehydration, failure to thrive. He has been in the hospital for prolonged period time over 3 months due to custody valdez where he is going and his money issues, regarding his insurance, etc. This apparently has all been set up. He is going to [facility], Dr. Reynolds will take him over there. He is stable for months in the hospital. He takes insulin for diabetes as mentioned above. Continue on Accu-Chek protocol and his long-acting insulin. Continue on his breathing treatments, PT OT for right-sided weakness. He is unable to ambulate. He takes Levemir 16 units q.h.s., to stay on that and Accu-Chek protocol a.c. h.s. Prognosis guarded. Follow up with Dr. Reynolds in the assisted. MMODL / IJN: [id number] /
[2023-04-28] MEDS: HEPARIN SODIUM,PORCINE/PF 5,000 UNIT/0.5 ML SYRINGE SQ SCH ×2 (00:31→07:59)
[2023-04-28] MEDS: DIPHENOX-ATROP 2.5-0.025 MG 1 EACH TAB PO PRN (03:24)
[2023-04-28] MEDS: PANTOPRAZOLE 40 MG TABLET PO SCH (06:27)
[2023-04-28 07:11] LABS: Glucose,Whole Blood 108 mg/dL (70-110)
[2023-04-28] MEDS: INSULIN ASPART (NovoLOG) 100 UNIT/ML VIAL SQ SCH ×2 (07:51→12:31)
[2023-04-28] MEDS: DOCUSATE 100 MG CAP PO SCH (08:00)
[2023-04-28] MEDS: buPROPion SR 100 MG TABLET.ER PO SCH (08:00)
[2023-04-28] MEDS: FENOFIBRATE 54 MG TAB PO SCH (08:00)
[2023-04-28] MEDS: ASPIRIN 81 MG PO SCH (08:00)
[2023-04-28] MEDS: DULoxetine HCL 60 MG CAPSULE.DR PO SCH (08:00)
[2023-04-28] MEDS: LOSARTAN 25 MG TAB PO SCH (08:01)
[2023-04-28] MEDS: TAMSULOSIN 0.4 MG CAP.ER.24H PO SCH (08:01)
[2023-04-28] MEDS: METOPROLOL TARTRATE 12.5 MG TAB PO SCH (08:01)
[2023-04-28] MEDS: POTASSIUM CHLORIDE ER 20 MEQ TAB.ER PO SCH (08:01)
[2023-04-28] MEDS: MULTIVITAMINS, THERA 1 EACH TAB PO SCH (08:01)
[2023-04-28] MEDS: NYSTATIN 100,000 UNIT/GM POWD 15 GM TOPICAL SCH (08:03)
[2023-04-28] MEDS: NYSTATIN 100,000 UNIT/GM OINT 30 GM TUBE TOPICAL SCH (08:04)
[2023-04-28 08:12] VITALS: BP 126/66; PULSE 84; RESP 16; TEMP 96.9
[2023-04-28] MEDS: BUDESONIDE 0.5 MG/2 ML NEBU INHALATION SCH (08:43)
[2023-04-28] MEDS: IPRATROPIUM-ALBUTEROL 3 ML NEB INHALATION SCH ×2 (08:44→11:20)
[2023-04-28 11:44] LABS: Glucose,Whole Blood 130 mg/dL (70-110)
== END 2023-04-28 14:28 | DRG 823 ==
LOC: EC 21:06 → 5NMEDONC 22:39 → EEVIPCON 22:39 → OBSVTOIN 22:40 → 5NMEDONC 22:58
PROVIDERS: ADMIT Family Medicine; ATTEND Family Medicine
PROC: 07B20ZX Excision of Left Neck Lymphatic, Open Approach, Diagnostic (ICD-10-PCS; principal; 2023-02-08 07:30)
PROC: 0DB78ZX Excision of Stomach, Pylorus, Via Natural or Artificial Opening Endoscopic, Diagnostic (ICD-10-PCS; 2023-03-16)
PROC: 0DJD8ZZ Inspection of Lower Intestinal Tract, Via Natural or Artificial Opening Endoscopic (ICD-10-PCS; 2023-03-20)
PROC: DW0 Radiation Therapy, Anatomical Regions, Beam Radiation (ICD-10-PCS; 2023-03-23)
DX: C81.01 Nodular lymphocyte predominant Hodgkin lymphoma, lymph nodes of head, face, and neck (principal); G93.41 Metabolic encephalopathy; N39.0 Urinary tract infection, site not specified; T83.511A Infection and inflammatory reaction due to indwelling urethral catheter, initial encounter; J69.0 Pneumonitis due to inhalation of food and vomit; J96.91 Respiratory failure, unspecified with hypoxia; I69.351 Hemiplegia and hemiparesis following cerebral infarction affecting right dominant side; I50.42 Chronic combined systolic (congestive) and diastolic (congestive) heart failure; J98.11 Atelectasis; L03.221 Cellulitis of neck; N13.8 Other obstructive and reflux uropathy; E03.9 Hypothyroidism, unspecified; E11.40 Type 2 diabetes mellitus with diabetic neuropathy, unspecified; I11.0 Hypertensive heart disease with heart failure; L89.312 Pressure ulcer of right buttock, stage 2; I27.20 Pulmonary hypertension, unspecified; I35.0 Nonrheumatic aortic (valve) stenosis; J44.9 Chronic obstructive pulmonary disease, unspecified; R62.7 Adult failure to thrive; E11.649 Type 2 diabetes mellitus with hypoglycemia without coma; F32.A Depression, unspecified; E78.00 Pure hypercholesterolemia, unspecified; E86.0 Dehydration; F43.20 Adjustment disorder, unspecified; Z79.84 Long term (current) use of oral hypoglycemic drugs; Z72.3 Lack of physical exercise; Z79.4 Long term (current) use of insulin; F41.1 Generalized anxiety disorder; G89.4 Chronic pain syndrome; H35.30 Unspecified macular degeneration; Z68.25 Body mass index [BMI] 25.0-25.9, adult; I25.2 Old myocardial infarction; Z79.82 Long term (current) use of aspirin; Z79.02 Long term (current) use of antithrombotics/antiplatelets; Z79.899 Other long term (current) drug therapy; Z79.51 Long term (current) use of inhaled steroids; I25.10 Atherosclerotic heart disease of native coronary artery without angina pectoris; K21.9 Gastro-esophageal reflux disease without esophagitis; M48.02 Spinal stenosis, cervical region; I25.84 Coronary atherosclerosis due to calcified coronary lesion; Z28.310 Unvaccinated for COVID-19; Z28.21 Immunization not carried out because of patient refusal; L89.622 Pressure ulcer of left heel, stage 2; Z71.3 Dietary counseling and surveillance; I25.5 Ischemic cardiomyopathy; L30.9 Dermatitis, unspecified; L59.8 Other specified disorders of the skin and subcutaneous tissue related to radiation; K29.70 Gastritis, unspecified, without bleeding; K57.30 Diverticulosis of large intestine without perforation or abscess without bleeding; K64.4 Residual hemorrhoidal skin tags; K63.9 Disease of intestine, unspecified; M19.91 Primary osteoarthritis, unspecified site; N40.1 Benign prostatic hyperplasia with lower urinary tract symptoms; R33.8 Other retention of urine; Y84.6 Urinary catheterization as the cause of abnormal reaction of the patient, or of later complication, without mention of misadventure at the time of the procedure; Z74.01 Bed confinement status; Z88.0 Allergy status to penicillin; Z95.5 Presence of coronary angioplasty implant and graft; Z99.3 Dependence on wheelchair; Z86.19 Personal history of other infectious and parasitic diseases; Z98.1 Arthrodesis status; Z87.440 Personal history of urinary (tract) infections
CPT/HCPCS: 36415; 43239; 45378; 70450; 70487; 70491; 71045; 71250; 74230; 77300; 77301; 77334; 77336; 77338; 77386; 78815; 80048; 80053; 80202; 81001; 82565; 83036; 84145; 84443; 85025; 85027; 87077; 87086; 87186; 87324; 88305; 88341; 88342; 93005; 93306; 94640; 94760; 96361; 96374; 96375; 99285

== ENCOUNTER 2024-02-25 16:01 | Emergency (ER) | payer MEDICARE, OTHER ==
--- NOTE | 2024-02-25 16:20 | ED ---
General Adult HPI - General Chief complaint: Fall Stated complaint: Fall Time Seen by Provider: 02/25/24 16:05 Source: patient, EMS Mode of arrival: EMS Limitations: no limitations - History of Present Illness Initial comments: Patient presents to the ED by ambulance for evaluation status post mechanical fall. Patient states that he was trying to "scoot" himself up in his wheelchair when he accidentally fell out of his wheelchair and onto the ground. Patient has sustained a laceration to his right brow region. Patient states that he is on Plavix. Patient denies being on any other anticoagulant medications. Patient denies having any pain at this time. Patient denies headache, LOC, neck/back/extremity pain, chest pain, dyspnea, palpitations, dizziness, abdominal pain, nausea or vomiting, focal numbness/weakness/neuro deficit, visual changes, or any other symptoms or complaints. Patient is unsure of his last tetanus shot. - Related Data Home Medications Medication Instructions Recorded Confirmed Atorvastatin [Lipitor] 40 mg PO HS 08/13/22 01/20/23 Clopidogrel [Plavix] 75 mg PO DAILY 10/01/22 01/20/23 Losartan [Cozaar] 25 mg PO DAILY 10/01/22 01/20/23 Multivitamins, Thera [Multivitamin 1 tab PO DAILY 12/09/22 01/20/23 (formulary)] Fenofibrate 54 mg PO DAILY 12/18/22 01/20/23 DULoxetine HCL [Cymbalta] 60 mg PO DAILY 01/09/23 01/20/23 Fluticasone Propion/Salmeterol 1 puff INHALATION RT-BID 01/09/23 01/20/23 [[place]ixela 500-50 Inhub] Previous Rx's Medication Instructions Recorded Aspirin 81 mg PO DAILY tab 08/30/22 HYDROcodone/APAP 5-325MG [[place] 1 each PO Q6HR PRN #6 tab 01/12/23 5-325] Budesonide [Pulmicort] 0.5 mg INHALATION RT-BID 30 Days 01/25/23 #60 ml Doxycycline [Vibramycin] 100 mg PO BID 7 Days #14 cap 01/25/23 Ipratropium-Albuterol Nebulize 3 ml INHALATION RT-QID 30 Days 01/25/23 [Duoneb 0.5 mg-3 mg/3 ml Soln] #120 each Nystatin 100,000Unit/gm Cream 1 applic TOPICAL BID 30 Days #30 01/25/23 [Mycostatin Cream] each Potassium Chloride ER [K-Dur 20] 20 meq PO DAILY 30 Days #30 tab 01/25/23 buPROPion SR [Wellbutrin SR] 100 mg PO DAILY 30 Days #30 tab 01/25/23 ALPRAZolam [Xanax] 0.25 mg PO TID PRN tab 02/20/23 Docusate [Colace] 100 mg PO BID cap 02/20/23 Insulin Detemir (Levemir) [Levemir] 16 unit SQ HS each 02/20/23 Tamsulosin [Flomax] 0.4 mg PO DAILY cap 02/20/23 Atorvastatin [Lipitor] 40 mg PO HS tab 04/27/23 INSULIN ASPART (NovoLOG) [NovoLOG 0 unit SQ AC-TID each 04/27/23 (formulary)] Metoprolol Tartrate [Lopressor] 12.5 mg PO BID tab 04/27/23 Nystatin 100,000 Unit/gm Powd 1 applic TOPICAL TID each 04/27/23 [Mycostatin Powder] Pantoprazole [Protonix] 40 mg PO AC-BRKFST tab 04/27/23 Allergies Allergy/AdvReac Type Severity Reaction Status Date / Time Penicillins Allergy Unknown Verified 01/20/23 07:56 Review of Systems ROS Statement: Those systems with pertinent positive or pertinent negative responses have been documented in the HPI. ROS Other: All systems not noted in ROS Statement are negative. Past Medical History Past Medical History: Asthma, Coronary Artery Disease (CAD), Heart Failure, CVA/TIA, Diabetes Mellitus, Hypertension, Myocardial Infarction (NE), Osteoarthritis (OA) Additional Past Medical History / Comment(s): HX OF BACK SURGERY WITH BACK PAIN, DIABETIC NEUROPATHY, HEART MURMUR., KERATOCONUS., STOOL TEST POSITIVE ., ECZEMA Last Myocardial Infarction Date:: 08/2022 History of Any Multi-Drug Resistant Organisms: C-DIFF Date of last positivie culture/infection: 12/19/22 MDRO Source:: stool Past Surgical History: Back Surgery, Heart Catheterization With Stent Additional Past Surgical History / Comment(s): BACK SURGERY WITH DISC REMOVED AND FUSION., VASECTOMY, LEFT GREAT TOE. peg tube, tracheostomy. Past Anesthesia/Blood Transfusion Reactions: No Reported Reaction Date of Last Stent Placement:: 08/2022 Past Psychological History: Depression Smoking Status: Never smoker Past Alcohol Use History: None Reported Past Drug Use History: None Reported - Past Family History Mother Family Medical History: No Reported History Additional Family Medical History / Comment(s): of old age Father Additional Family Medical History / Comment(s): of old age General Exam Limitations: no limitations General appearance: alert, in no apparent distress Head exam: Present: other (Swelling and a 3 cm linear laceration is noted over right lateral brow region) Eye exam: Present: normal appearance, PERRL, EOMI ENT exam: Present: mucous membranes moist Neck exam: Present: other (Trachea is in midline). Absent: tenderness Respiratory exam: Present: normal lung sounds bilaterally. Absent: respiratory distress, wheezes, rales, rhonchi, stridor, chest wall tenderness Cardiovascular Exam: Present: regular rate, normal rhythm, normal heart sounds, other (Normal radial pulses bilaterally) GI/Abdominal exam: Present: soft. Absent: tenderness, guarding Extremities exam: Present: full ROM, other (Pelvis is stable and nontender). Absent: tenderness, pedal edema Back exam: Present: normal inspection. Absent: tenderness Neurological exam: Present: alert, oriented X3, CN II-XII intact, other (Right upper and lower extremity weakness from prior stroke per patient) Skin exam: Present: warm, dry, normal color Course Vital Signs 02/25/24 16:07 Temperature 97.8 F Pulse Rate 90 Respiratory 14 Rate Blood Pressure 175/102 O2 Sat by Pulse 99 Oximetry - Reevaluation(s) Reevaluation #1: 02/25/24 19:52 Patient continues to deny having any pain or symptoms while in the ED. Patient remains alert and breathing comfortably. Patient is aware of his CT report/findings, and he feels comfortable being discharged back to his halfway at this time. Patient was counseled about falls, head injuries and facial lacerations. Patient was clearly explained return and follow-up instructions. Patient feels comfortable with this plan. Procedures - Laceration Laceration #1 Consent Obtained: verbal consent Indication: laceration Site: face, other (Right lateral brow region) Size (cm): 3 Description: linear Depth: simple, single layer Anesthetic Used: lidocaine 1% Anesthesia Technique: local infiltration Amount (mls): 2 Pre-repair: irrigated extensively Type of Sutures: nylon Size of Sutures: 5-0 Number of Sutures: 4 Technique: simple, interrupted Complications: bleeding Patient Tolerated Procedure: well Medical Decision Making - Medical Decision Making Was pt. sent in by a medical professional or institution (JENN Hua, DENTAL TECH, urgent care, hospital, or halfway...) When possible be specific @ -No Did you speak to anyone other than the patient for history (EMS, parent, family, police, friend...)? What history was obtained from this source @ -No Did you review nursing and triage notes (agree or disagree)? Why? @ -I reviewed and agree with nursing and triage notes Were old charts reviewed (outside hosp., previous admission, EMS record, old EKG, old radiological studies, urgent care reports/EKG's, halfway records)? Report findings @ -No old charts were reviewed Differential Diagnosis (chest pain, altered mental status, abdominal pain women, abdominal pain men, vaginal bleeding, weakness, fever, dyspnea, syncope, headache, dizziness, GI bleed, back pain, seizure, CVA, palpatations, mental health, musculoskeletal)? @ -Fall, head injury, contusion, intracranial hemorrhage, fracture, sprain, strain, laceration, hematoma EKG interpreted by me (3pts min.). @ -None done X-rays interpreted by me (1pt min.). @ -None done CT interpreted by me (1pt min.). @ -Noncontrast CT head/cervical spine was reviewed myself and does not demonstrate any definite acute abnormality. I agree with the radiologist's interpretation as above. U/S interpreted by me (1pt. min.). @ -None done What testing was considered but not performed or refused? (CT, X-rays, U/S, labs)? Why? @ -None What meds were considered but not given or refused? Why? @ -None Did you discuss the management of the patient with other professionals (professionals i.e. JENN Hua, DENTAL TECH, lab, RT, psych nurse, social work instructor, aircraft motor mechanic, teacher, national service officer, rifle case repairer)? Give summary @ -No Was smoking cessation discussed for >3mins.? @ -No Was critical care preformed (if so, how long)? @ -No Were there social determinants of health that impacted care today? How? (Homelessness, low income, unemployed, alcoholism, drug addiction, transportation, low edu. Level, literacy, decrease access to med. care, long-term, rehab)? @ -No Was there de-escalation of care discussed even if they declined (Discuss DNR or withdrawal of care, Hospice)? DNR status @ -No What co-morbidities impacted this encounter? (DM, HTN, Smoking, COPD, CAD, Cancer, CVA, ARF, Chemo, Hep., AIDS, mental health diagnosis, sleep apnea, morbid obesity)? @ -None Was patient admitted / discharged? Hospital course, mention meds given and route, prescriptions, significant lab abnormalities, going to OR and other pertinent info. @ -Patient reports sustaining a mechanical fall out of his wheelchair today. Patient CTs are negative. Patient's laceration was repaired myself. Will discharge patient back to his halfway at this time. Patient feels comfortable with this plan. Undiagnosed new problem with uncertain prognosis? @ -No Drug Therapy requiring intensive monitoring for toxicity (Heparin, Nitro, Insulin, Cardizem)? @ -No Were any procedures done? @ -No Diagnosis/symptom? @ -Fall out of wheelchair, head injury, facial laceration Acute, or Chronic, or Acute on Chronic? @ -Acute Uncomplicated (without systemic symptoms) or Complicated (systemic symptoms)? @ -Default Side effects of treatment? @ -No Exacerbation, Progression, or Severe Exacerbation? @ -No Poses a threat to life or bodily function? How? (Chest pain, [place], NE, pneumonia, PE, COPD, DKA, ARF, appy, cholecystitis, CVA, Diverticulitis, Homicidal, Suicidal, threat to staff... and all critical care pts) @ -No - Radiology Data Noncontrast CT head/cervical spine: 1. Chronic appearing periventricular white matter ischemic-type changes with atrophy. 2. No acute intracranial process. Follow-up MRI can be performed as clinically. 3. Superficial soft tissue swelling right frontal parietal region. Disposition Clinical Impression: Fall, Head injury, Facial laceration Disposition: HOME SELF-CARE Condition: Stable Instructions (If sedation given, give patient instructions): Head Injury (ED), Fall Prevention (ED), Facial Laceration (ED) Additional Instructions: Return to the ER immediately should you develop new or worsening pain or symptoms. Follow-up closely with your primary care provider. Return to the ER or follow-up with your primary care provider in 7 to 10 days for suture removal. Is patient prescribed a controlled substance at d/c from ED?: No Referrals: Nonstaff,Physician [REFERRING] - 1-2 days Amos Ribera MD [STAFF PHYSICIAN] - 1-2 days Time of Disposition: 20:00
[2024-02-25 16:53] VITALS: TEMP 97.8
[2024-02-25] MEDS: LIDOCAINE 1% INJ 10MG/ML (20 ML MDV) SQ STA (19:04)
[2024-02-25] MEDS: DIPH,PERTUS(ACELL)TETVAC-LF 0.5 ML VIAL IM ONE (19:05)
--- NOTE | 2024-02-25 19:43 | CT ---
EXAMINATION TYPE: CT brain arelyine wo con DATE OF EXAM: 02/25/2024 COMPARISON: 01/20/2023 HISTORY: fall CT DLP: 1681.5 mGycm, Automated exposure control for dose reduction was used. CONTRAST: None CT of the brain is performed utilizing 3 mm thick sections through the posterior fossa and 3 mm thick sections through the remaining calvarium. Study is performed within 24 hours of arrival to the hospital. There is superficial soft tissue swelling over the right frontal parietal region. No underlying fract ure is evident. Greater wing of sphenoid. No abnormal hyperdensity is present to suggest an acute intracranial hemorrhage. No mass lesion is evident. No acute infarcts are evident. Periventricular white matter hypodensity is present, likely on the ba sis of chronic white matter ischemic changes. Ventricles and sulci are prominent for the patient age. Paranasal sinuses and mastoid air cells within the [id number] are clear. IMPRESSIONS: 1. Chronic appearing periventricular white matter ischemic-type changes with atrophy. 2. No acute intracranial process. Follow-up MRI can be performed as clinically. 3. Superficial soft tissue swelling right frontal parietal region. CT cervical spine. COMPARISON: None CT of the cervical spine is performed in the axial plane at 2 mm thick sections. Reconstructed image s in the coronal, and sagittal plane are reviewed on the computer. No acute fractures are evident. Vertebral body alignment is normal. Disc space narrowing is present C3-4 and C5-6. Vertebral body heights are preserved. No spinal canal stenosis is evident. No neural foraminal stenosis is evident. IMPRESSION: 1. Degenerative disc change discussed above. 2. No acute osseous abnormality cervical spine
[2024-02-25 21:57] VITALS: BP 126/84; PULSE 98; RESP 18
== END 2024-02-25 21:44 | disposition home or self-care (01) ==
LOC: EC 16:01
DX: S01.81XA Laceration without foreign body of other part of head, initial encounter (principal); Z23 Encounter for immunization; Z88.0 Allergy status to penicillin; Z86.73 Personal history of transient ischemic attack (TIA), and cerebral infarction without residual deficits; W05.0XXA Fall from non-moving wheelchair, initial encounter
CPT/HCPCS: 12013; 99284; 90471; 72125; 70450; 90715; J2001

== ENCOUNTER → 2024-04-01 | Outpatient (CLI) | payer MEDICARE, OTHER ==
[2024-04-01 14:51] LABS: African American GFR (CKD) 88 (>60 ml/min/1.73 sqM); Blood Urea Nitrogen 20 mg/dL (9-20); Non-African American GFR(CKD) 76 (>60 ml/min/1.73 sqM)
--- NOTE | 2024-04-01 21:54 | CT ---
EXAMINATION TYPE: CT ChestAbdPelvis w con DATE OF EXAM: 04/01/2024 COMPARISON: CT chest dated 01/20/2023 HISTORY: lymphoma CT DLP: 2679.10 combined mGycm Automated exposure control for dose reduction was used. CONTRAST: CT scan of the chest, abdomen and pelvis is performed with Oral Contrast and with IV Contrast, patien t injected with 100 mL of Isovue 300. FINDINGS: EXAMINATION TYPE: CT ChestAbdPelvis w con DATE OF EXAM: 04/01/2024 COMPARISON: HISTORY: lymphoma CT DLP: 2679.10 combined mGycm Automated exposure control for dose reduction was used. CONTRAST: CT scan of the chest, abdomen and pelvis is performed with Oral Contrast and with IV Contrast, patien t injected with 100 mL of Isovue 300. FINDINGS: CT chest: There is a 6 mm nodule in the right lower lobe. There is no airspace consolidation. There is mild atelectasis in the left lower lobe. There is no pleural effusion, pleural thickening or pneumothorax. The great vessels and chest are normal there is no mediastinal, hilar or axillary adenopathy. No focal osseous lesions are seen. CT abdomen and pelvis: There are multiple small gallstones but no gallbladder distention or pericholecystic fluid. There is no biliary ductal dilatation. There is no focal mass or organomegaly involving the liver, pancreas, spleen or adrenal glands.. There is no solid renal mass or hydronephrosis. There is no retroperitoneal adenopathy or hemorrhage in the caliber of the abdominal aorta is normal. The bowel loops are normal in caliber and there is no dilatation or obstruction. No inflammatory nielson ges identified in the bowel wall and mesentery. There is no free intracranial air or fluid. There is no pelvic mass or adenopathy. There is no free fluid within the pelvis. No focal osseous lesions are seen. Soft tissue the abdomen and pelvis are normal. IMPRESSION: 1. 6 mm nodule in the right lower lobe. Statistically most likely benign but given the history of lym phoma, short-term follow-up in 4-6 months is recommended to confirm stability. 2. Cholelithiasis. 3. No adenopathy, mass or acute changes within the abdomen or pelvis.
--- NOTE | 2024-04-02 05:30 | CT ---
EXAMINATION TYPE: CT soft tissue neck w con DATE OF EXAM: 04/01/2024 HISTORY: lymphoma COMPARISON: Prior PET/CT June 30, 2023. Prior neck CT January 20, 2023. CT DLP: 2679.10 combined mGycm. Automated Exposure Control for Dose Reduction was Utilized. TECHNIQUE: CT scan of the neck is performed with IV Contrast, patient injected with 100 mL of Isovue 300, axial images are obtained, coronal and sagittal reformatted images are reviewed. FINDINGS: Airway: No gross abnormality seen. Parotid/submandibular glands: Scar tissue at the posterior level of the left parotid gland is now lorne ntified unchanged from most recent PET/CT. Carotid/Vascular Structures: Moderate to severe calcified plaque left carotid bulb. More mild periphe ral calcified plaque right carotid bulb Osseous Structures: Grade 1 retrolisthesis C3 on C4 redemonstrated. Moderate to severe disc space ml rowing C3-C4 and C5-C6 levels redemonstrated. Posterior disc herniation at C2-C3 level effaces anteri or thecal sac sagittal image 42 similar to prior. Other: No new greater than 1.0 cm neck adenopathy is identified. Right-sided aphakia is redemonstrate d. IMPRESSION: No new greater than 1.0 cm neck adenopathy to suggest active neoplastic recurrence.
== END | disposition home or self-care (01) ==
LOC: RADCTMAIN 13:22
PROVIDERS: ATTEND Internal Medicine Hematology & Oncology
DX: C81.41 Lymphocyte-rich Hodgkin lymphoma, lymph nodes of head, face, and neck (principal); K80.20 Calculus of gallbladder without cholecystitis without obstruction; R91.1 Solitary pulmonary nodule; I10 Essential (primary) hypertension; I67.89 Other cerebrovascular disease; E11.9 Type 2 diabetes mellitus without complications
CPT/HCPCS: 82565; 84520; 70491; 71260; 74177; 36415; Q9967

== ENCOUNTER 2024-07-26 14:46 | Inpatient (IN) | payer MEDICARE, OTHER ==
--- NOTE | 2024-07-26 14:54 | ED ---
General Adult HPI - General Stated complaint: Respiratory stress Time Seen by Provider: 07/26/24 14:46 Source: patient, RN notes reviewed, old records reviewed - History of Present Illness Initial comments: This is a 69-year-old male who presents to the emergency department from a residential because he stated he was short of breath and they were getting pulse ox in the 80s. Patient himself says he does not feel short of breath however patient is only alert and oriented x 2. Patient does appear to have some respiratory distress. Patient does have a history of COPD. Again patient himself has no complaints but his history is not all that accurate at this point. No family or caregivers with the patient - Related Data Home Medications Medication Instructions Recorded Confirmed Atorvastatin [Lipitor] 40 mg PO HS 08/13/22 01/20/23 Clopidogrel [Plavix] 75 mg PO DAILY 10/01/22 01/20/23 Losartan [Cozaar] 25 mg PO DAILY 10/01/22 01/20/23 Multivitamins, Thera [Multivitamin 1 tab PO DAILY 12/09/22 01/20/23 (formulary)] Fenofibrate 54 mg PO DAILY 12/18/22 01/20/23 DULoxetine HCL [Cymbalta] 60 mg PO DAILY 01/09/23 01/20/23 Fluticasone Propion/Salmeterol 1 puff INHALATION RT-BID 01/09/23 01/20/23 [Wixela 500-50 Inhub] Previous Rx's Medication Instructions Recorded Aspirin 81 mg PO DAILY tab 08/30/22 HYDROcodone/APAP 5-325MG [[facility] 1 each PO Q6HR PRN #6 tab 01/12/23 5-325] Budesonide [Pulmicort] 0.5 mg INHALATION RT-BID 30 Days 01/25/23 #60 ml Doxycycline [Vibramycin] 100 mg PO BID 7 Days #14 cap 01/25/23 Ipratropium-Albuterol Nebulize 3 ml INHALATION RT-QID 30 Days 01/25/23 [Duoneb 0.5 mg-3 mg/3 ml Soln] #120 each Nystatin 100,000Unit/gm Cream 1 applic TOPICAL BID 30 Days #30 01/25/23 [Mycostatin Cream] each Potassium Chloride ER [K-Dur 20] 20 meq PO DAILY 30 Days #30 tab 01/25/23 buPROPion SR [Wellbutrin SR] 100 mg PO DAILY 30 Days #30 tab 01/25/23 ALPRAZolam [Xanax] 0.25 mg PO TID PRN tab 02/20/23 Docusate [Colace] 100 mg PO BID cap 02/20/23 Insulin Detemir (Levemir) [Levemir] 16 unit SQ HS each 02/20/23 Tamsulosin [Flomax] 0.4 mg PO DAILY cap 02/20/23 Atorvastatin [Lipitor] 40 mg PO HS tab 04/27/23 INSULIN ASPART (NovoLOG) [NovoLOG 0 unit SQ AC-TID each 04/27/23 (formulary)] Metoprolol Tartrate [Lopressor] 12.5 mg PO BID tab 04/27/23 Nystatin 100,000 Unit/gm Powd 1 applic TOPICAL TID each 04/27/23 [Mycostatin Powder] Pantoprazole [Protonix] 40 mg PO AC-BRKFST tab 04/27/23 Allergies Allergy/AdvReac Type Severity Reaction Status Date / Time Penicillins Allergy Unknown Verified 07/26/24 15:00 Review of Systems ROS Statement: Those systems with pertinent positive or pertinent negative responses have been documented in the HPI. ROS Other: All systems not noted in ROS Statement are negative. Past Medical History Past Medical History: Asthma, Coronary Artery Disease (CAD), Heart Failure, CVA/TIA, Diabetes Mellitus, Hypertension, Myocardial Infarction ([place]), Osteoarthritis (OA) Additional Past Medical History / Comment(s): HX OF BACK SURGERY WITH BACK PAIN, DIABETIC NEUROPATHY, HEART MURMUR., KERATOCONUS., STOOL TEST POSITIVE ., ECZEMA Last Myocardial Infarction Date:: 08/2022 History of Any Multi-Drug Resistant Organisms: C-DIFF Date of last positivie culture/infection: 12/19/22 MDRO Source:: stool Past Surgical History: Back Surgery, Heart Catheterization With Stent Additional Past Surgical History / Comment(s): BACK SURGERY WITH DISC REMOVED AND FUSION., VASECTOMY, LEFT GREAT TOE. peg tube, tracheostomy. Past Anesthesia/Blood Transfusion Reactions: No Reported Reaction Date of Last Stent Placement:: 08/2022 Past Psychological History: Depression Smoking Status: Never smoker Past Alcohol Use History: None Reported Past Drug Use History: None Reported - Past Family History Mother Family Medical History: No Reported History Additional Family Medical History / Comment(s): of old age Father Additional Family Medical History / Comment(s): of old age General Exam - General Exam Comments Initial Comments: GENERAL: Patient is well-developed and well-nourished. Patient is nontoxic and well- hydrated and is in mild distress. ENT: Neck is soft and supple. No significant lymphadenopathy is noted. Oropharynx is clear. Moist mucous membranes. Neck has full range of motion without eliciting any pain. EYES: The sclera were anicteric and conjunctiva were pink and moist. Extraocular movements were intact and pupils were equal round and reactive to light. Eyeli ds were unremarkable. PULMONARY: His lungs are clear however he does have some belly breathing. CARDIOVASCULAR: There is a regular rate and rhythm without any murmurs gallops or rubs. ABDOMEN: Soft and nontender with normal bowel sounds. SKIN: Skin is clear with no lesions or rashes and otherwise unremarkable. NEUROLOGIC: Patient is alert and oriented x 2. Cranial nerves II through XII are grossly intact. Motor and sensory are also intact. Normal speech, volume and content. Symmetrical smile. MUSCULOSKELETAL: Normal extremities with adequate strength and full range of motion. No lower extremity swelling or edema. No calf tenderness. LYMPHATICS: No significant lymphadenopathy is noted PSYCHIATRIC: Normal psychiatric evaluation. Course Vital Signs 07/26/24 07/26/24 14:56 15:41 Temperature 97.4 F L 97.5 F L Pulse Rate 92 87 Respiratory 22 18 Rate Blood Pressure 123/73 99/76 O2 Sat by Pulse 92 L 94 L Oximetry Medical Decision Making - Medical Decision Making EKG is interpreted by myself but EKG shows a sinus rhythm at 90 bpm DC interval is 217 QRS is 112 QT interval 368 QTc is 424. Patient's EKG shows no ST segment ovation or depression. Patient does have some flipped T waves in leads I and aVL as well as precordial leads V5 and V6 ability to get up Was pt. sent in by a medical professional or institution (, JENN, CLOTHES SEPARATOR, urgent care, hospital, or residential...) When possible be specific @ -No Did you speak to anyone other than the patient for history (EMS, parent, family, police, friend...)? What history was obtained from this source @ -No Did you review nursing and triage notes (agree or disagree)? Why? @ -I reviewed and agree with nursing and triage notes Were old charts reviewed (outside hosp., previous admission, EMS record, old EKG, old radiological studies, urgent care reports/EKG's, residential records)? Report findings @ -No old charts were reviewed Differential Diagnosis? @ -Differential Dyspnea: Coronary syndrome, arrhythmia, tamponade, asthma, COPD, pulmonary embolism, pneumonia, pneumothorax, pulmonary effusion, anaphylaxis, diabetic ketoacidosis, flailed chest, pulmonary contusion, diaphragmatic rupture, anemia, neuromuscular, this is not meant to be an all-inclusive list. EKG interpreted by me (3pts min.). @ -As above X-rays interpreted by me (1pt min.). @ -X-rays consistent with acute pulmonary edema CT interpreted by me (1pt min.). @ -None done U/S interpreted by me (1pt. min.). @ -None done What testing was considered but not performed or refused? (CT, X-rays, U/S, labs)? Why? @ -None What meds were considered but not given or refused? Why? @ -None Did you discuss the management of the patient with other professionals (professionals i.e. , PA, CLOTHES SEPARATOR, lab, RT, psych nurse, psychologist social, mobile plant operators, teacher, environmental officer, immigration case worker)? Give summary @ -I spoke with [facility] they agreed to admit the patient admit the patient I wrote admitting orders Was smoking cessation discussed for >3mins.? @ -No Was critical care preformed (if so, how long)? @ -No Were there social determinants of health that impacted care today? How? (Homelessness, low income, unemployed, alcoholism, drug addiction, transportation, low edu. Level, literacy, decrease access to med. care, halfway, rehab)? @ -No Was there de-escalation of care discussed even if they declined (Discuss DNR or withdrawal of care, Hospice)? DNR status @ -No What co-morbidities impacted this encounter? (DM, HTN, Smoking, COPD, CAD, Cancer, CVA, ARF, Chemo, Hep., AIDS, mental health diagnosis, sleep apnea, mor bid obesity)? @ -None Was patient admitted / discharged? Hospital course, mention meds given and rou te, prescriptions, significant lab abnormalities, going to OR and other pertinent info. @ -Patient was given Lasix and Nitropaste in the emergency department. Patient was put on 3 L of fluid. Patient denies admitted to [facility] for congestive heart failure. Undiagnosed new problem with uncertain prognosis? @ -No Drug Therapy requiring intensive monitoring for toxicity (Heparin, Nitro, Insulin, Cardizem)? @ -No Were any procedures done? @ -No Diagnosis/symptom? @ -acute pulmonary edema Acute, or Chronic, or Acute on Chronic? @ -Acute Uncomplicated (without systemic symptoms) or Complicated (systemic symptoms)? @ -Complicated Side effects of treatment? @ -No Exacerbation, Progression, or Severe Exacerbation? @ -No Poses a threat to life or bodily function? How? (Chest pain, [place], [place], pneumonia, PE, COPD, DKA, ARF, appy, cholecystitis, CVA, Diverticulitis, Homicidal, [place], threat to staff... and all critical care pts) @ -Yes this can lead to hypoxia and then endorgan dysfunction - Lab Data Result diagrams: 07/26/24 14:54 07/26/24 14:54 Lab Results 07/26/24 07/26/24 07/26/24 Range/Units 14:54 14:54 14:54 WBC 5.7 (3.8-10.6) k/uL RBC 3.39 L (4.30-5.90) m/uL Hgb 9.3 L (13.0-17.5) gm/dL Hct 30.5 L (39.0-53.0) % MCV 89.9 (80.0-100.0) fL MCH 27.5 (25.0-35.0) pg MCHC 30.6 L (31.0-37.0) g/dL RDW 18.0 H (11.5-15.5) % Plt Count 206 (150-450) k/uL MPV 7.5 Neutrophils % 84 % Lymphocytes % 6 % Monocytes % 4 % Eosinophils % 4 % Basophils % 0 % Neutrophils # 4.8 (1.3-7.7) k/uL Lymphocytes # 0.3 L (1.0-4.8) k/uL Monocytes # 0.3 (0-1.0) k/uL Eosinophils # 0.2 (0-0.7) k/uL Basophils # 0.0 (0-0.2) k/uL Hypochromasia Marked Poikilocytosis Slight Anisocytosis Slight PT 12.5 (10.0-12.5) sec INR 1.2 H (<1.2) APTT 27.0 (22.0-30.0) sec D-Dimer 0.51 (<0.60) mg/L FEU Sample Site ABG pH (7.35-7.45) ABG pCO2 (35-45) mmHg ABG pO2 (83-108) mmHg ABG HCO3 (21-25) mmol/L ABG Total CO2 (19-24) mmol/L ABG O2 Saturation (94-97) % ABG Base Excess mmol/L Mack Test Hemoglobin (13.0-17.5) gm/dL FiO2 % Sodium 139 (137-145) mmol/L Potassium 4.2 (3.5-5.1) mmol/L Chloride 109 H (98-107) mmol/L Carbon Dioxide 19 L (22-30) mmol/L Anion Gap 11 mmol/L BUN 36 H (9-20) mg/dL Creatinine 1.52 H (0.66-1.25) mg/dL Est GFR (CKD-EPI)AfAm 53 (>60 ml/min/1.73 sqM) Est GFR (CKD-EPI)NonAf 46 (>60 ml/min/1.73 sqM) Glucose 185 H (74-99) mg/dL Plasma Lactic Acid Eren (0.7-2.0) mmol/L Calcium 8.9 (8.4-10.2) mg/dL Magnesium 1.8 (1.6-2.3) mg/dL Total Bilirubin 1.6 H (0.2-1.3) mg/dL AST 29 (17-59) U/L ALT 22 (4-49) U/L Alkaline Phosphatase 69 (38-126) U/L Troponin I (0.000-0.034) ng/mL NT-Pro-B Natriuret Pep 5770 pg/mL Total Protein 6.4 (6.3-8.2) g/dL Albumin 3.8 (3.5-5.0) g/dL 10/25/24 10/25/24 10/25/24 Range/Units 14:54 14:54 15:18 WBC (3.8-10.6) k/uL RBC (4.30-5.90) m/uL Hgb (13.0-17.5) gm/dL Hct (39.0-53.0) % MCV (80.0-100.0) fL MCH (25.0-35.0) pg MCHC (31.0-37.0) g/dL RDW (11.5-15.5) % Plt Count (150-450) k/uL MPV Neutrophils % % Lymphocytes % % Monocytes % % Eosinophils % % Basophils % % Neutrophils # (1.3-7.7) k/uL Lymphocytes # (1.0-4.8) k/uL Monocytes # (0-1.0) k/uL Eosinophils # (0-0.7) k/uL Basophils # (0-0.2) k/uL Hypochromasia Poikilocytosis Anisocytosis PT (10.0-12.5) sec INR (<1.2) APTT (22.0-30.0) sec D-Dimer (<0.60) mg/L FEU Sample Site lbrach ABG pH 7.46 H (7.35-7.45) ABG pCO2 28 L (35-45) mmHg ABG pO2 61 L (83-108) mmHg ABG HCO3 20 L (21-25) mmol/L ABG Total CO2 21 (19-24) mmol/L ABG O2 Saturation 91.1 L (94-97) % ABG Base Excess -3.3 mmol/L Mack Test Yes Hemoglobin 9.5 L (13.0-17.5) gm/dL FiO2 21 % Sodium (137-145) mmol/L Potassium (3.5-5.1) mmol/L Chloride (98-107) mmol/L Carbon Dioxide (22-30) mmol/L Anion Gap mmol/L BUN (9-20) mg/dL Creatinine (0.66-1.25) mg/dL Est GFR (CKD-EPI)AfAm (>60 ml/min/1.73 sqM) Est GFR (CKD-EPI)NonAf (>60 ml/min/1.73 sqM) Glucose (74-99) mg/dL Plasma Lactic Acid Eren 1.1 (0.7-2.0) mmol/L Calcium (8.4-10.2) mg/dL Magnesium (1.6-2.3) mg/dL Total Bilirubin (0.2-1.3) mg/dL AST (17-59) U/L ALT (4-49) U/L Alkaline Phosphatase (38-126) U/L Troponin I 0.025 (0.000-0.034) ng/mL NT-Pro-B Natriuret Pep pg/mL Total Protein (6.3-8.2) g/dL Albumin (3.5-5.0) g/dL Disposition Clinical Impression: Acute pulmonary edema Disposition: ADMITTED IP TO THIS HOSP Referrals: Nima Riggs MD [Primary Care Provider] - 1-2 days Time of Disposition: 17:16
[2024-07-26 15:04] LABS: Anisocytosis Slight; Basophils % (A) 0 %; Eosinophils # (A) 0.2 k/uL (0-0.7); Eosinophils % (A) 4 %; HCT 30.5 % (39.0-53.0); HGB 9.3 gm/dL (13.0-17.5); Hypochromasia Marked; Lymphocytes # (A) 0.3 k/uL (1.0-4.8); Lymphocytes % (A) 6 %; MCH 27.5 pg (25.0-35.0); MCHC 30.6 g/dL (31.0-37.0); MCV 89.9 fL (80.0-100.0); Mean Platelet Volume 7.5; Monocytes # (A) 0.3 k/uL (0-1.0); Monocytes % (A) 4 %; Neutrophils # (A) 4.8 k/uL (1.3-7.7); Neutrophils % (A) 84 %; Platelet Count 206 k/uL (150-450); Poikilocytosis Slight; RBC 3.39 m/uL (4.30-5.90); WBC 5.7 k/uL (3.8-10.6)
[2024-07-26 15:22] LABS: ABG Base Excess -3.3 mmol/L; ABG HCO3 20 mmol/L (21-25); ABG Oxygen Saturation 91.1 % (94-97); ABG PCO2 28 mmHg (35-45); ABG PH 7.46 (7.35-7.45); ABG PO2 61 mmHg (83-108); ABG TCO2 21 mmol/L (19-24); Allen Test Performed? Yes
[2024-07-26 15:23] LABS: INR 1.2 (<1.2); Prothrombin Time 12.5 sec (10.0-12.5)
[2024-07-26 15:25] LABS: ALT 22 U/L (4-49); AST 29 U/L (17-59); African American GFR (CKD) 53 (>60 ml/min/1.73 sqM); Albumin 3.8 g/dL (3.5-5.0); Alkaline Phosphatase 69 U/L (38-126); Anion Gap 11 mmol/L; Blood Urea Nitrogen 36 mg/dL (9-20); Calcium 8.9 mg/dL (8.4-10.2); Carbon Dioxide 19 mmol/L (22-30); Chloride 109 mmol/L (98-107); Glucose 185 mg/dL (74-99); Magnesium 1.8 mg/dL (1.6-2.3); Non-African American GFR(CKD) 46 (>60 ml/min/1.73 sqM); Potassium 4.2 mmol/L (3.5-5.1); Sodium 139 mmol/L (137-145); Total Bilirubin 1.6 mg/dL (0.2-1.3); Total Protein 6.4 g/dL (6.3-8.2)
[2024-07-26 15:30] LABS: NT-Pro-B-Type Natriuretic Pept 5770 pg/mL
--- NOTE | 2024-07-26 16:09 | XR ---
EXAMINATION TYPE: XR chest 2V DATE OF EXAM: 07/26/2024 COMPARISON: 04/15/2023 and 07/18/2024 HISTORY: 69 year-old male shortness of breath, dyspnea, difficulty breathing TECHNIQUE: AP and lateral views FINDINGS: Low lung volumes. Heart mild to moderately enlarged. Diffuse interstitial and patchy opacities. No si zable pleural effusion. IMPRESSION: Hypoventilatory changes. Additional cardiomegaly and diffuse interstitial and patchy opacities. Corre late for CHF with interstitial pulmonary edema. [facility], , 07/26/2024 4:07 PM
[2024-07-26] MEDS: NITROGLYCERIN OINT 1 INCH/GM PACKET TOPICAL STA (17:14)
[2024-07-26] MEDS: FUROSEMIDE 10 MG/ML 4 ML VIAL IV STA (17:15)
[2024-07-26] MEDS: ALBUTEROL NEBULIZED 2.5 MG/3 ML INHALATION PRN (21:17)
[2024-07-26] MEDS: MIDODRINE 5 MG TAB PO SCH (21:29)
[2024-07-26] MEDS: FUROSEMIDE 40 MG TAB PO SCH (23:15)
[2024-07-27 09:10] LABS: Glucose,Whole Blood 151 mg/dL (70-110)
[2024-07-27] MEDS ORDERED: bisacodyL 10 MG SUPP RECTAL PRN (10:31)
[2024-07-27] MEDS ORDERED: IPRATROPIUM-ALBUTEROL 3 ML NEB INHALATION PRN (10:31)
--- NOTE | 2024-07-27 10:39 | P.HPIM ---
History of Present Illness H&P Date: 07/26/24 Chief Complaint: Acute respiratory distress 69-year-old male, history of hypertension, hyperlipidemia, diabetes mellitus, CAD/MA status post cardiac catheterization with stent placement, history of asthma/COPD, who presents to the emergency department from a [facility] ause he stated he was short of breath and they were getting pulse ox in the 80s. Patient himself says he does not feel short of breath however patient is only alert and oriented x 2. Patient does appear to have some respiratory distress. Patient does have a history of COPD. Again patient himself has no complaints but his history is not all that accurate at this point. No family or caregivers with the patient Blood work reveals WBC of 5.7, hemoglobin of 9.3 and platelet count of 206, sodium 139, potassium 4.2, BUNs/creatinine of 36/1.52 and blood glucose of 185, BNP is elevated at 5770, troponin at 0.025, lactic acid of 1.1, ABG reveals pH of 7.46, pCO2 of 28, pO2 of 61 and O2 saturation 91% EKG shows a sinus rhythm at 90 bpm CA interval is 217 QRS is 112 QT interval 368 QTc is 424. Patient's EKG shows no ST segment ovation or depression. Patient does have some flipped T waves in leads I and aVL as well as precordial leads V5 and V6 Chest x-ray is consistent with acute pulmonary edema Review of Systems ROS unobtainable: due to mental status Past Medical History Past Medical History: Asthma, Coronary Artery Disease (CAD), Heart Failure, CVA/TIA, Diabetes Mellitus, Hypertension, Myocardial Infarction ([place]), Osteoarthritis (OA) Additional Past Medical History / Comment(s): HX OF BACK SURGERY WITH BACK PAIN, DIABETIC NEUROPATHY, HEART MURMUR., KERATOCONUS., STOOL TEST POSITIVE ., ECZEMA Last Myocardial Infarction Date:: 08/2022 History of Any Multi-Drug Resistant Organisms: C-DIFF Date of last positivie culture/infection: 12/19/22 MDRO Source:: stool Past Surgical History: Back Surgery, Heart Catheterization With Stent Additional Past Surgical History / Comment(s): BACK SURGERY WITH DISC REMOVED AND FUSION., VASECTOMY, LEFT GREAT TOE. peg tube, tracheostomy. Past Anesthesia/Blood Transfusion Reactions: No Reported Reaction Date of Last Stent Placement:: 08/2022 Past Psychological History: Depression Smoking Status: Never smoker Past Alcohol Use History: None Reported Past Drug Use History: None Reported - Past Family History Mother Family Medical History: No Reported History Additional Family Medical History / Comment(s): of old age Father Additional Family Medical History / Comment(s): of old age Medications and Allergies Home Medications Medication Instructions Recorded Confirmed Type Atorvastatin [Lipitor] 40 mg PO HS 08/13/22 07/26/24 History Clopidogrel [Plavix] 75 mg PO DAILY@1200 10/01/22 07/26/24 History Losartan [Cozaar] 25 mg PO DAILY@1200 10/01/22 07/26/24 History Multivitamins, Thera [Multivitamin 1 tab PO DAILY@1700 12/09/22 07/26/24 History (formulary)] Fenofibrate 54 mg PO DAILY@1200 12/18/22 07/26/24 History DULoxetine HCL [Cymbalta] 60 mg PO DAILY@1200 01/09/23 07/26/24 History Fluticasone Propion/Salmeterol 1 puff INHALATION RT-BID@1200,1700 01/09/23 07/26/24 History [Wixela 500-50 Inhub] Ipratropium-Albuterol Nebulize 3 ml INHALATION RT-QID 30 Days 01/25/23 07/26/24 Rx [Duoneb 0.5 mg-3 mg/3 ml Soln] #120 each ALPRAZolam [Xanax] 0.25 mg PO TID@0800,1400,2200 07/26/24 07/26/24 History Acetaminophen Tab [Tylenol] 650 mg PO Q4H PRN 07/26/24 07/26/24 History Aspirin 81 mg PO DAILY@1200 07/26/24 07/26/24 History Docusate [Colace] 100 mg PO BID@1200,1700 07/26/24 07/26/24 History Furosemide [Lasix] 20 mg PO DAILY@17007/26/24 07/26/24 History HYDROcodone/APAP 5-325MG [[place] 1 tab PO Q6HR PRN 07/26/24 07/26/24 History 5-325] INSULIN ASPART (NovoLOG) [NovoLOG 5 unit SQ HS@21307/26/24 07/26/24 History (formulary)] INSULIN ASPART (NovoLOG) [NovoLOG 6 unit SQ DAILY@1200 07/26/24 07/26/24 History (formulary)] INSULIN ASPART (NovoLOG) [NovoLOG 7 unit SQ DAILY@0800 07/26/24 07/26/24 History (formulary)] INSULIN ASPART (NovoLOG) [NovoLOG 8 unit SQ DAILY@1700 07/26/24 07/26/24 History (formulary)] INSULIN ASPART (NovoLOG) [NovoLOG See Protocol SQ ACHS 07/26/24 07/26/24 History (formulary)] Insulin Glargine [Lantus Vial] 21 unit SQ HS 07/26/24 07/26/24 History Ipratropium-Albuterol Nebulize 3 ml INHALATION RT-Q4H PRN 07/26/24 07/26/24 History [Duoneb 0.5 mg-3 mg/3 ml Soln] Loperamide HCl [Imodium A-D] 2 - 4 mg PO DIRECTED PRN MDD 4 07/26/24 07/26/24 History tablets Magnesium Hydroxide [Milk of 7,200 mg PO Q2D PRN 07/26/24 07/26/24 History Magnesia Concentrate] Metoprolol Tartrate [Lopressor] 12.5 mg PO BID@1200,2100 07/26/24 07/26/24 History Na Phos,M-B/Na Phos,Di-Ba [Fleet 133 ml RECTAL DAILY PRN 07/26/24 07/26/24 History Adult] Pantoprazole [Protonix] 40 mg PO DAILY@1200 07/26/24 07/26/24 History Potassium Chloride ER [K-Dur 20] 20 meq PO DAILY@1200 07/26/24 07/26/24 History Tamsulosin [Flomax] 0.4 mg PO DAILY@1200 07/26/24 07/26/24 History bisacodyL 10 mg RECTAL DAILY PRN 07/26/24 07/26/24 History Allergies Allergy/AdvReac Type Severity Reaction Status Date / Time Penicillins Allergy Unknown Verified 07/26/24 17:50 Physical Exam Vitals: Vital Signs Temp Pulse Resp BP Pulse Ox 07/26/24 19:15 89 21 91/70 96 07/26/24 18:52 92 18 95 07/26/24 17:55 95 24 95 07/26/24 17:00 100 18 124/96 95 07/26/24 15:41 97.5 F L 87 18 99/76 94 L 07/26/24 14:56 97.4 F L 92 22 123/73 92 L Intake and Output 07/26/24 07/26/24 07/26/24 06:59 14:59 22:59 Other: Weight 97.069 kg Patient is well-developed and well-nourished. Patient is nontoxic and well- hydrated and is in mild distress. ENT:Neck is soft and supple. No significant lymphadenopathy is noted. Oropharynx is clear. Moist mucous membranes. Neck has full range of motion without eliciting any pain. The sclera were anicteric and conjunctiva were pink and moist. Extraocular movements were intact and pupils were equal round and reactive to light. Eyelids were unremarkable. PULMONARY: His lungs are clear however he does have some belly breathing. CARDIOVASCULAR: There is a regular rate and rhythm without any murmurs gallops or rubs. ABDOMEN: Soft and nontender with normal bowel sounds. SKIN: is clear with no lesions or rashes and otherwise unremarkable. NEUROLOGIC:Patient is alert and oriented x 2. Cranial nerves II through XII are grossly intact. Motor and sensory are also intact. Normal speech, volume and content. Symmetrical smile. MUSCULOSKELETAL:Normal extremities with adequate strength and full range of motion. No lower extremity swelling or edema. No calf tenderness. Results CBC & Chem 7: 07/26/24 14:54 07/26/24 14:54 Labs: Abnormal Lab Results - Last 24 Hours (Table) 07/26/24 07/26/24 07/26/24 Range/Units 14:54 14:54 14:54 RBC 3.39 L (4.30-5.90) m/uL Hgb 9.3 L (13.0-17.5) gm/dL Hct 30.5 L (39.0-53.0) % MCHC 30.6 L (31.0-37.0) g/dL RDW 18.0 H (11.5-15.5) % Lymphocytes # 0.3 L (1.0-4.8) k/uL INR 1.2 H (<1.2) ABG pH (7.35-7.45) ABG pCO2 (35-45) mmHg ABG pO2 (83-108) mmHg ABG HCO3 (21-25) mmol/L ABG O2 Saturation (94-97) % Hemoglobin (13.0-17.5) gm/dL Chloride 109 H (98-107) mmol/L Carbon Dioxide 19 L (22-30) mmol/L BUN 36 H (9-20) mg/dL Creatinine 1.52 H (0.66-1.25) mg/dL Glucose 185 H (74-99) mg/dL Total Bilirubin 1.6 H (0.2-1.3) mg/dL 07/26/24 Range/Units 15:18 RBC (4.30-5.90) m/uL Hgb (13.0-17.5) gm/dL Hct (39.0-53.0) % MCHC (31.0-37.0) g/dL RDW (11.5-15.5) % Lymphocytes # (1.0-4.8) k/uL INR (<1.2) ABG pH 7.46 H (7.35-7.45) ABG pCO2 28 L (35-45) mmHg ABG pO2 61 L (83-108) mmHg ABG HCO3 20 L (21-25) mmol/L ABG O2 Saturation 91.1 L (94-97) % Hemoglobin 9.5 L (13.0-17.5) gm/dL Chloride (98-107) mmol/L Carbon Dioxide (22-30) mmol/L BUN (9-20) mg/dL Creatinine (0.66-1.25) mg/dL Glucose (74-99) mg/dL Total Bilirubin (0.2-1.3) mg/dL Assessment and Plan Assessment: 1. Acute pulmonary edema -BNP is elevated above 5000; chest x-ray reveals cardiomegaly and diffuse interstitial and patchy opacities correlating with CHF with interstitial pulmonary edema -Patient has been placed on Lasix 40 mg IV every 12 hours; will monitor strict BELEM's, daily weights, low-salt and fluid restricted diet -Recommend 2D echo; consult cardiology -Patient has history of cardiomyopathy with a EF of 45% previously 2. Acute respiratory distress/failure; history of asthma; possible mild exacerbation -Patient has been placed on DuoNeb nebulizer treatments 4 times daily and as needed; will add oral prednisone 40 mg daily x 5 days; resume home inhaler therapy -Consult pulmonary for further recommendations 3. Acute renal injury; creatinine elevated at 1.52; baseline creatinine of 1.2; could be related to renal vascular congestion associated with CHF -We will monitor strict BELEM's, daily weights, renal function electrolytes; avoid nephrotoxins and hypotension 2. Hypertension; metoprolol 12.5 mg twice daily, losartan 25 mg daily 5. Hyperlipidemia; Lipitor 40 mg p.o. nightly; fenofibrate 54 mg daily 6. Diabetes mellitus type 2/diabetic peripheral neuropathy; Lantus 21 units SQ nightly; Accu-Cheks before every meal and at bedtime with insulin sliding scale 7. History of Hodgkin's lymphoma; status post radiation; patient completed treatment in April 2023 DVT prophylaxis; SCDs/subcu heparin CODE STATUS; full code
[2024-07-27 11:12] LABS: Anisocytosis Slight; Basophils % (A) 0 %; Eosinophils # (A) 0.4 k/uL (0-0.7); Eosinophils % (A) 7 %; HCT 33.1 % (39.0-53.0); HGB 10.3 gm/dL (13.0-17.5); Hypochromasia Marked; Lymphocytes # (A) 0.4 k/uL (1.0-4.8); Lymphocytes % (A) 6 %; MCH 27.9 pg (25.0-35.0); MCHC 30.9 g/dL (31.0-37.0); MCV 90.3 fL (80.0-100.0); Mean Platelet Volume 7.5; Monocytes # (A) 0.5 k/uL (0-1.0); Monocytes % (A) 7 %; Neutrophils # (A) 4.8 k/uL (1.3-7.7); Neutrophils % (A) 78 %; Platelet Count 206 k/uL (150-450); Poikilocytosis Slight; RBC 3.67 m/uL (4.30-5.90); RDW 18.2 % (11.5-15.5); WBC 6.1 k/uL (3.8-10.6)
[2024-07-27 11:26] LABS: African American GFR (CKD) 54 (>60 ml/min/1.73 sqM); Anion Gap 9 mmol/L; Blood Urea Nitrogen 37 mg/dL (9-20); Calcium 8.8 mg/dL (8.4-10.2); Carbon Dioxide 21 mmol/L (22-30); Chloride 111 mmol/L (98-107); Glucose 137 mg/dL (74-99); Non-African American GFR(CKD) 46 (>60 ml/min/1.73 sqM); Potassium 4.2 mmol/L (3.5-5.1); Sodium 141 mmol/L (137-145)
[2024-07-27] MEDS: IPRATROPIUM-ALBUTEROL 3 ML NEB INHALATION SCH (11:42)
[2024-07-27] MEDS: SYMBICORT 160-4.5 MCG INHALER INHALATION SCH (11:43)
[2024-07-27] MEDS: predniSONE 20 MG TAB PO SCH (12:59)
[2024-07-27] MEDS: POTASSIUM CHLORIDE ER 20 MEQ TAB.ER PO SCH (13:03)
[2024-07-27] MEDS: LOSARTAN 25 MG TAB PO SCH (13:03)
[2024-07-27] MEDS: FUROSEMIDE 10 MG/ML 4 ML VIAL IV SCH (13:03)
[2024-07-27] MEDS: PANTOPRAZOLE 40 MG TABLET PO SCH (13:28)
[2024-07-27] MEDS: DOCUSATE 100 MG CAP PO SCH (13:29)
[2024-07-27 13:34] LABS: Glucose,Whole Blood 146 mg/dL (70-110)
[2024-07-27] MEDS: TAMSULOSIN 0.4 MG CAP.ER.24H PO SCH (13:35)
[2024-07-27] MEDS: INSULIN ASPART (NovoLOG) 100 UNIT/ML VIAL SQ SCH (13:36)
[2024-07-27] MEDS: CLOPIDOGREL 75 MG TAB PO SCH (13:37)
[2024-07-27] MEDS: METOPROLOL TARTRATE 12.5 MG TAB PO SCH (13:37)
[2024-07-27] MEDS: DULoxetine HCL 60 MG CAPSULE.DR PO SCH (13:37)
[2024-07-27] MEDS: ALPRAZolam 0.25 MG TAB PO SCH (13:37)
[2024-07-27] MEDS: ASPIRIN 81 MG PO SCH (13:37)
[2024-07-27] MEDS: FENOFIBRATE 54 MG TAB PO SCH (13:37)
--- NOTE | 2024-07-27 13:41 | P.CNPUL ---
History of Present Illness Consult date: 07/27/24 Requesting physician: Michelle South Reason for consult: dyspnea, hypoxemia Chief complaint: Shortness of breath, hypoxemia History of present illness: This is a 69-year-old male patient who resides in a assisted and has a history of hypertension, hyperlipidemia, coronary artery disease, CVA with residual right sided weakness, congestive heart failure, diabetes mellitus previous tracheostomy and PEG tube placement with subsequent removal. He has a history of left cervical and preauricular adenopathy with incision overlying primary mass status post radiation treatments in 2022 he was brought into the emergency department yesterday after having complaints of shortness of breath and found to have pulse oximeter readings in the 80s. Chest x-ray revealed hypoventilatory changes. Cardiomegaly and diffuse interstitial and patchy opacities. White count 6.1. Hemoglobin 10.3. Platelets 206. Sodium 141. Potassium 4.2. Bicarb 21. BUN 37. Creatinine 1.51. Arterial blood gases on room air revealed a PaO2 of 61, pCO2 28 and a pH of 7.46. He is seen in the emergency department. Currently resting on a stretcher. Awake, drifts off easily, poor historian. He is maintaining O2 saturations in the 90s on 3 L/min per nasal cannula. He has been initiated on Lasix 40 mg IV every 12 hours. No intake or output recorded. He is on Symbicort, DuoNeb and elations, prednisone. Heparin for DVT prophylaxis. Review of Systems ROS unobtainable: due to mental status Past Medical History Past Medical History: Asthma, Coronary Artery Disease (CAD), Heart Failure, CVA/TIA, Diabetes Mellitus, Hypertension, Myocardial Infarction ([place]), Osteoarthritis ([place]) Additional Past Medical History / Comment(s): HX OF BACK SURGERY WITH BACK PAIN, DIABETIC NEUROPATHY, HEART MURMUR., KERATOCONUS., STOOL TEST POSITIVE ., ECZEMA Last Myocardial Infarction Date:: 08/2022 History of Any Multi-Drug Resistant Organisms: C-DIFF Date of last positivie culture/infection: 12/19/22 MDRO Source:: stool Past Surgical History: Back Surgery, Heart Catheterization With Stent Additional Past Surgical History / Comment(s): BACK SURGERY WITH DISC REMOVED AND FUSION., VASECTOMY, LEFT GREAT TOE. peg tube, tracheostomy. Past Anesthesia/Blood Transfusion Reactions: No Reported Reaction Date of Last Stent Placement:: 08/2022 Past Psychological History: Depression Smoking Status: Never smoker Past Alcohol Use History: None Reported Past Drug Use History: None Reported - Past Family History Mother Family Medical History: No Reported History Additional Family Medical History / Comment(s): of old age Father Additional Family Medical History / Comment(s): of old age Medications and Allergies Home Medications Medication Instructions Recorded Confirmed Type Atorvastatin [Lipitor] 40 mg PO HS 08/13/22 07/26/24 History Clopidogrel [Plavix] 75 mg PO DAILY@1200 10/01/22 07/26/24 History Losartan [Cozaar] 25 mg PO DAILY@1200 10/01/22 07/26/24 History Multivitamins, Thera [Multivitamin 1 tab PO DAILY@1700 12/09/22 07/26/24 History (formulary)] Fenofibrate 54 mg PO DAILY@1200 12/18/22 07/26/24 History DULoxetine HCL [Cymbalta] 60 mg PO DAILY@1200 01/09/23 07/26/24 History Fluticasone Propion/Salmeterol 1 puff INHALATION RT-BID@1200,1700 01/09/23 07/26/24 History [Wixela 500-50 Inhub] Ipratropium-Albuterol Nebulize 3 ml INHALATION RT-QID 30 Days 01/25/23 07/26/24 Rx [Duoneb 0.5 mg-3 mg/3 ml Soln] #120 each ALPRAZolam [Xanax] 0.25 mg PO TID@0800,1400,2200 07/26/24 07/26/24 History Acetaminophen Tab [Tylenol] 650 mg PO Q4H PRN 07/26/24 07/26/24 History Aspirin 81 mg PO DAILY@1200 07/26/24 07/26/24 History Docusate [Colace] 100 mg PO BID@1200,1700 07/26/24 07/26/24 History Furosemide [Lasix] 20 mg PO DAILY@1700 07/26/24 07/26/24 History HYDROcodone/APAP 5-325MG [[place] 1 tab PO Q6HR PRN 07/26/24 07/26/24 History 5-325] INSULIN ASPART (NovoLOG) [NovoLOG 5 unit SQ HS@2130 07/26/24 07/26/24 History (formulary)] INSULIN ASPART (NovoLOG) [NovoLOG 6 unit SQ DAILY@1200 07/26/24 07/26/24 History (formulary)] INSULIN ASPART (NovoLOG) [NovoLOG 7 unit SQ DAILY@0800 07/26/24 07/26/24 History (formulary)] INSULIN ASPART (NovoLOG) [NovoLOG 8 unit SQ DAILY@1700 07/26/24 07/26/24 History (formulary)] INSULIN ASPART (NovoLOG) [NovoLOG See Protocol SQ ACHS 07/26/24 07/26/24 History (formulary)] Insulin Glargine [Lantus Vial] 21 unit SQ HS 07/26/24 07/26/24 History Ipratropium-Albuterol Nebulize 3 ml INHALATION RT-Q4H PRN 07/26/24 07/26/24 History [Duoneb 0.5 mg-3 mg/3 ml Soln] Loperamide HCl [Imodium A-D] 2 - 4 mg PO DIRECTED PRN MDD 4 07/26/24 07/26/24 History tablets Magnesium Hydroxide [Milk of 7,200 mg PO Q2D PRN 07/26/24 07/26/24 History Magnesia Concentrate] Metoprolol Tartrate [Lopressor] 12.5 mg PO BID@1200,2100 07/26/24 07/26/24 History Na Phos,M-B/Na Phos,Di-Ba [Fleet 133 ml RECTAL DAILY PRN 07/26/24 07/26/24 History Adult] Pantoprazole [Protonix] 40 mg PO DAILY@1200 07/26/24 07/26/24 History Potassium Chloride ER [K-Dur 20] 20 meq PO DAILY@1200 07/26/24 07/26/24 History Tamsulosin [Flomax] 0.4 mg PO DAILY@1200 07/26/24 07/26/24 History bisacodyL 10 mg RECTAL DAILY PRN 07/26/24 07/26/24 History Allergies Allergy/AdvReac Type Severity Reaction Status Date / Time Penicillins Allergy Unknown Verified 07/26/24 17:50 Physical Exam Vitals: Vital Signs Temp Pulse Resp BP Pulse Ox 07/27/24 12:57 92 20 107/76 96 07/27/24 08:53 94 16 94/65 98 07/27/24 07:21 98.0 F 97 30 H 99/74 96 07/27/24 06:06 90 32 H 122/79 98 07/27/24 02:00 98 30 H 99/65 95 07/26/24 23:15 92 32 H 105/77 97 07/26/24 21:26 93 07/26/24 21:20 96 07/26/24 21:02 98 36 H 95 07/26/24 19:15 89 21 91/70 96 07/26/24 18:52 92 18 95 07/26/24 17:55 95 24 95 07/26/24 17:00 100 18 124/96 95 07/26/24 15:41 97.5 F L 87 18 99/76 94 L 07/26/24 14:56 97.4 F L 92 22 123/73 92 L GENERAL EXAM: Alert, drifts off easily, poor historian, 69-year-old male, on 3 L nasal cannula, fairly comfortable in no apparent distress. HEAD: Normocephalic. EYES: Normal reaction of pupils, equal size. NOSE: Clear with pink turbinates. THROAT: No erythema or exudates. NECK: No masses, no JVD. CHEST: No chest wall deformity. LUNGS: Equal air entry with bibasilar crackles. CVS: S1 and S2 normal with no audible murmur, regular rhythm. ABDOMEN: No hepatosplenomegaly, normal bowel sounds, no guarding or rigidity. SPINE: No scoliosis or deformity SKIN: No rashes CENTRAL NERVOUS SYSTEM: Right sided hemiplegia. EXTREMITIES: There is 1+ peripheral edema. No clubbing, no cyanosis. Peripheral pulses are intact. Results - Laboratory Findings CBC and BMP: 07/27/24 10:54 07/27/24 10:54 ABG ABG pH 7.46 (7.35-7.45) H 07/26/24 15:18 ABG pCO2 28 mmHg (35-45) L 07/26/24 15:18 ABG pO2 61 mmHg (83-108) L 07/26/24 15:18 ABG O2 Saturation 91.1 % (94-97) L 07/26/24 15:18 PT/INR, D-dimer PT 12.5 sec (10.0-12.5) 07/26/24 14:54 INR 1.2 (<1.2) H 07/26/24 14:54 D-Dimer 0.51 mg/L FEU (<0.60) 07/26/24 14:54 Abnormal lab findings: Abnormal Labs 07/26/24 07/26/24 07/26/24 14:54 14:54 14:54 RBC 3.39 L Hgb 9.3 L Hct 30.5 L MCHC 30.6 L RDW 18.0 H Lymphocytes # 0.3 L INR 1.2 H ABG pH ABG pCO2 ABG pO2 ABG HCO3 ABG O2 Saturation Hemoglobin Chloride 109 H Carbon Dioxide 19 L BUN 36 H Creatinine 1.52 H Glucose 185 H POC Glucose (mg/dL) Total Bilirubin 1.6 H 07/26/24 07/27/24 07/27/24 15:18 09:09 10:54 RBC 3.67 L Hgb 10.3 L Hct 33.1 L MCHC 30.9 L RDW 18.2 H Lymphocytes # 0.4 L INR ABG pH 7.46 H ABG pCO2 28 L ABG pO2 61 L ABG HCO3 20 L ABG O2 Saturation 91.1 L Hemoglobin 9.5 L Chloride Carbon Dioxide BUN Creatinine Glucose POC Glucose (mg/dL) 151 H Total Bilirubin 07/27/24 10:54 RBC Hgb Hct MCHC RDW Lymphocytes # INR ABG pH ABG pCO2 ABG pO2 ABG HCO3 ABG O2 Saturation Hemoglobin Chloride 111 H Carbon Dioxide 21 L BUN 37 H Creatinine 1.51 H Glucose 137 H POC Glucose (mg/dL) Total Bilirubin - Diagnostic Findings Chest x-ray: image reviewed Assessment and Plan Assessment: Acute hypoxemic respiratory failure secondary to an acute exacerbation of diastolic versus systolic congestive heart failure Acute exacerbation of chronic obstructive pulmonary disease Acute kidney injury History of left cervical and preauricular adenopathy, stage Ia status post radiation History of previous ventilatory dependent respiratory failure requiring tracheostomy and PEG tube insertions was subsequent removal History of failure to thrive prison resident for functional performance History of CVA with right-sided hemiplegia Diabetes mellitus Poor historian Plan: The patient was seen and evaluated Chest x-ray, labs and medications reviewed Continue IV diuretics containing accurate I & O Continue bronchodilators, steroids Treat down the FiO2 as tolerated We will continue to follow and make further recommendations based on his clinical status I have personally seen and examined the patient, performed the documentation and the assessment and plan as written. Number of minutes spent on the visit: 20 Dictation was produced using [employer] dictation software. Please excuse any grammatical, word or spelling errors.
[2024-07-27] MEDS: HEPARIN SODIUM,PORCINE 5,000 UNIT/ML 1 ML VIAL SQ SCH (16:18)
[2024-07-27 17:12] LABS: Glucose,Whole Blood 147 mg/dL (70-110)
[2024-07-27 20:36] LABS: Glucose,Whole Blood 140 mg/dL (70-110)
[2024-07-27] MEDS: ATORVASTATIN 40 MG TAB PO SCH (21:25)
[2024-07-28 06:35] LABS: Glucose,Whole Blood 111 mg/dL (70-110)
[2024-07-28] MEDS: SYMBICORT 160-4.5 MCG INHALER INHALATION SCH (07:24)
[2024-07-28 07:46] LABS: Anisocytosis Slight; Basophils % (A) 0 %; Eosinophils # (A) 0.4 k/uL (0-0.7); Eosinophils % (A) 6 %; HCT 33.7 % (39.0-53.0); Hypochromasia Marked; Lymphocytes # (A) 0.4 k/uL (1.0-4.8); Lymphocytes % (A) 6 %; MCH 27.1 pg (25.0-35.0); MCHC 29.7 g/dL (31.0-37.0); MCV 91.2 fL (80.0-100.0); Mean Platelet Volume 7.2; Monocytes # (A) 0.4 k/uL (0-1.0); Monocytes % (A) 8 %; Neutrophils # (A) 4.6 k/uL (1.3-7.7); Neutrophils % (A) 78 %; Platelet Count 213 k/uL (150-450); Poikilocytosis Slight; RDW 17.7 % (11.5-15.5); WBC 5.9 k/uL (3.8-10.6)
[2024-07-28 08:08] LABS: African American GFR (CKD) 54 (>60 ml/min/1.73 sqM); Anion Gap 9 mmol/L; Blood Urea Nitrogen 35 mg/dL (9-20); Carbon Dioxide 27 mmol/L (22-30); Chloride 108 mmol/L (98-107); Glucose 115 mg/dL (74-99); Non-African American GFR(CKD) 47 (>60 ml/min/1.73 sqM); Potassium 3.7 mmol/L (3.5-5.1); Sodium 144 mmol/L (137-145)
[2024-07-28 11:28] LABS: Glucose,Whole Blood 160 mg/dL (70-110)
--- NOTE | 2024-07-28 11:59 | P.CRDCN ---
History of Present Illness Consult date: 07/28/24 Consult reason: congestive heart failure History of present illness: The patient is a 69-year-old male who follows in the office with Dr. Matthews. He has a known cardiac history including CAD with prior stenting, hypertension, hyperlipidemia, prior stroke, and diabetes. Cardiology has been consulted for congestive heart failure, as he presented to the hospital with worsening shortness of breath and mental status changes. DIAGNOSTICS: EKG shows sinus mechanism with first-degree AV block and IVCD Chest x-ray shows diffuse interstitial and patchy opacities Lab data: WBC 5.9, hemoglobin 10.0, hematocrit 33.7, platelet 213, sodium 144, potassium 3.7, BUN 35, creatinine 1.49 REVIEW OF SYSTEMS: Limited due to neurological status PHYSICAL EXAMINATION: This is a 69-year-old male in no apparent distress at the time of my examination. HEENT: Head is atraumatic, normocephalic. Pupils are equal, round. There is no jugular venous distention. No carotid bruit is heard. CHEST EXAMINATION: Lungs are diminished to auscultation. No chest wall tenderness is noted on palpation or with deep breathing. HEART EXAMINATION: Heart regular rate and rhythm. S1, S2 heard. No murmurs, gallops or rub. ABDOMEN: Soft, nontender. Bowel sounds are heard. No organomegaly noted. EXTREMITIES: 2+ peripheral pulses with no evidence of peripheral edema and no calf tenderness noted. NEUROLOGIC EXAMINATION: Patient is asleep, briefly awakens to physical stimuli FINAL ASSESSMENT AND PLAN: Congestive heart failure, acute on chronic systolic Ischemic cardiomyopathy, last EF 40-45, awaiting echo results Coronary artery disease Diabetes History of CVA COPD PLAN: Resume home cardiac medications Awaiting echocardiogram results Further recommendations to be based upon clinical course I am dictating on behalf of Dr Luis E Lunyd's history/physical and as sessment/plan. Past Medical History Past Medical History: Asthma, Coronary Artery Disease (CAD), Heart Failure, CVA/TIA, Diabetes Mellitus, Hypertension, Myocardial Infarction ([place]), Osteoarthritis (OA) Additional Past Medical History / Comment(s): HX OF BACK SURGERY WITH BACK PAIN, DIABETIC NEUROPATHY, HEART MURMUR., KERATOCONUS., STOOL TEST POSITIVE ., ECZEMA Last Myocardial Infarction Date:: 08/2022 History of Any Multi-Drug Resistant Organisms: C-DIFF Date of last positivie culture/infection: 12/19/22 MDRO Source:: stool Past Surgical History: Back Surgery, Heart Catheterization With Stent Additional Past Surgical History / Comment(s): BACK SURGERY WITH DISC REMOVED AND FUSION., VASECTOMY, LEFT GREAT TOE. peg tube, tracheostomy. Past Anesthesia/Blood Transfusion Reactions: No Reported Reaction Date of Last Stent Placement:: 08/2022 Past Psychological History: Depression Smoking Status: Never smoker Past Alcohol Use History: None Reported Additional Past Alcohol Use History / Comment(s): QUIT SMOKING 1996. SMOKED C IGARS OCCASIONALLY Past Drug Use History: None Reported - Past Family History Mother Family Medical History: No Reported History Additional Family Medical History / Comment(s): of old age Father Additional Family Medical History / Comment(s): of old age Medications and Allergies Home Medications Medication Instructions Recorded Confirmed Type Atorvastatin [Lipitor] 40 mg PO HS 08/13/22 07/26/24 History Clopidogrel [Plavix] 75 mg PO DAILY@1200 10/01/22 07/26/24 History Losartan [Cozaar] 25 mg PO DAILY@1200 10/01/22 07/26/24 History Multivitamins, Thera [Multivitamin 1 tab PO DAILY@1700 12/09/22 07/26/24 History (formulary)] Fenofibrate 54 mg PO DAILY@1200 12/18/22 07/26/24 History DULoxetine HCL [Cymbalta] 60 mg PO DAILY@1200 01/09/23 07/26/24 History Fluticasone Propion/Salmeterol 1 puff INHALATION RT-BID@1200,1700 01/09/23 07/26/24 History [Wixela 500-50 Inhub] Ipratropium-Albuterol Nebulize 3 ml INHALATION RT-QID 30 Days 01/25/23 07/26/24 Rx [Duoneb 0.5 mg-3 mg/3 ml Soln] #120 each ALPRAZolam [Xanax] 0.25 mg PO TID@0800,1400,2200 07/26/24 07/26/24 History Acetaminophen Tab [Tylenol] 650 mg PO Q4H PRN 07/26/24 07/26/24 History Aspirin 81 mg PO DAILY@1200 07/26/24 07/26/24 History Docusate [Colace] 100 mg PO BID@1200,1700 07/26/24 07/26/24 History Furosemide [Lasix] 20 mg PO DAILY@1700 07/26/24 07/26/24 History HYDROcodone/APAP 5-325MG [[place] 1 tab PO Q6HR PRN 07/26/24 07/26/24 History 5-325] INSULIN ASPART (NovoLOG) [NovoLOG 5 unit SQ HS@2130 07/26/24 07/26/24 History (formulary)] INSULIN ASPART (NovoLOG) [NovoLOG 6 unit SQ DAILY@1200 07/26/24 07/26/24 History (formulary)] INSULIN ASPART (NovoLOG) [NovoLOG 7 unit SQ DAILY@0800 07/26/24 07/26/24 History (formulary)] INSULIN ASPART (NovoLOG) [NovoLOG 8 unit SQ DAILY@1700 07/26/24 07/26/24 History (formulary)] INSULIN ASPART (NovoLOG) [NovoLOG See Protocol SQ ACHS 07/26/24 07/26/24 History (formulary)] Insulin Glargine [Lantus Vial] 21 unit SQ HS 07/26/24 07/26/24 History Ipratropium-Albuterol Nebulize 3 ml INHALATION RT-Q4H PRN 07/26/24 07/26/24 History [Duoneb 0.5 mg-3 mg/3 ml Soln] Loperamide HCl [Imodium A-D] 2 - 4 mg PO DIRECTED PRN MDD 4 07/26/24 07/26/24 History tablets Magnesium Hydroxide [Milk of 7,200 mg PO Q2D PRN 07/26/24 07/26/24 History Magnesia Concentrate] Metoprolol Tartrate [Lopressor] 12.5 mg PO BID@1200,2100 07/26/24 07/26/24 History Na Phos,M-B/Na Phos,Di-Ba [Fleet 133 ml RECTAL DAILY PRN 07/26/24 07/26/24 History Adult] Pantoprazole [Protonix] 40 mg PO DAILY@1200 07/26/24 07/26/24 History Potassium Chloride ER [K-Dur 20] 20 meq PO DAILY@1200 07/26/24 07/26/24 History Tamsulosin [Flomax] 0.4 mg PO DAILY@1200 07/26/24 07/26/24 History bisacodyL 10 mg RECTAL DAILY PRN 07/26/24 07/26/24 History Allergies Allergy/AdvReac Type Severity Reaction Status Date / Time Penicillins Allergy Unknown Verified 07/26/24 17:50 Physical Exam Vitals: Vital Signs Temp Pulse Pulse Resp BP BP Pulse Ox 07/28/24 08:00 89 16 120/69 100 07/28/24 07:35 85 07/28/24 07:24 85 07/28/24 03:41 97.7 F 86 20 104/61 97 07/27/24 23:39 97.4 F L 90 20 109/70 100 07/27/24 21:07 88 22 07/27/24 20:58 88 22 07/27/24 19:27 97.9 F 83 20 107/68 98 07/27/24 16:22 87 16 114/59 99 07/27/24 16:09 94 07/27/24 15:57 88 07/27/24 14:08 96 22 103/56 98 07/27/24 13:52 97 22 107/93 96 07/27/24 12:57 92 20 107/76 96 Intake and Output 07/27/24 07/28/24 07/28/24 22:59 06:59 14:59 Output Total 200 1300 Balance -200 -1300 Output: Urine 200 1300 Other: Voiding Method External Catheter External Catheter External Catheter Weight 97.069 kg 62.5 kg Results 07/28/24 06:49 07/28/24 06:49 CBC 07/28/24 Range/Units 06:49 WBC 5.9 (3.8-10.6) k/uL RBC 3.70 L (4.30-5.90) m/uL Hgb 10.0 L (13.0-17.5) gm/dL Hct 33.7 L (39.0-53.0) % Plt Count 213 (150-450) k/uL Comprehensive Metabolic Panel 07/28/24 Range/Units 06:49 Sodium 144 (137-145) mmol/L Potassium 3.7 (3.5-5.1) mmol/L Chloride 108 H (98-107) mmol/L Carbon Dioxide 27 (22-30) mmol/L BUN 35 H (9-20) mg/dL Creatinine 1.49 H (0.66-1.25) mg/dL Glucose 115 H (74-99) mg/dL Calcium 9.0 (8.4-10.2) mg/dL Current Medications Generic Name Dose Route Start Last Admin Trade Name Freq PRN Reason Stop Dose Admin Hydrocodone Bitart/Acetaminophen 1 each 07/27/24 10:31 Hydrocodone/Apap 5-325mg 1 Each Tab PO Q6HR PRN Pain Albuterol/Ipratropium 3 ml 07/27/24 10:31 Ipratropium-Albuterol 3 Ml Neb INHALATION RT-Q4H PRN Shortness Of Breath Albuterol/Ipratropium 3 ml 07/27/24 12:00 07/28/24 11:35 Ipratropium-Albuterol 3 Ml Neb INHALATION Not Given RT-QID JUANA Alprazolam 0.25 mg 07/27/24 14:00 07/28/24 08:46 Alprazolam 0.25 Mg Tab PO Not Given TID@0800,1400,2200 JUANA Aspirin 81 mg 07/27/24 12:00 07/28/24 09:04 Aspirin 81 Mg PO 81 mg DAILY@1200 JUANA Administration Atorvastatin Calcium 40 mg 07/27/24 21:00 07/27/24 21:25 Atorvastatin 40 Mg Tab PO 40 mg HS JUANA Administration Bisacodyl 10 mg 07/27/24 10:31 Bisacodyl 10 Mg Supp RECTAL DAILY PRN Constipation Budesonide/Formoterol Fumarate 2 puff 07/28/24 08:00 07/28/24 07:24 Symbicort 160-4.5 Mcg Inhaler INHALATION 2 puff RT-BID JUANA Administration Clopidogrel Bisulfate 75 mg 07/27/24 12:00 07/28/24 09:04 Clopidogrel 75 Mg Tab PO 75 mg DAILY@1200 JUANA Administration Docusate Sodium 100 mg 07/27/24 12:00 07/28/24 09:04 Docusate 100 Mg Cap PO 100 mg BID@1200,1700 JUANA Administration Duloxetine HCl 60 mg 07/27/24 12:00 07/28/24 09:03 Duloxetine Hcl 60 Mg Capsule.Dr PO 60 mg DAILY@1200 JUANA Administration Fenofibrate 54 mg 07/27/24 12:00 07/28/24 09:04 Fenofibrate 54 Mg Tab PO 54 mg DAILY@1200 JUANA Administration Furosemide 40 mg 07/27/24 10:45 07/28/24 09:03 Furosemide 10 Mg/Ml 4 Ml Vial IV 40 mg Q12HR JUANA Administration Heparin Sodium (Porcine) 5,000 unit 07/27/24 16:00 07/28/24 09:03 Heparin Sodium,Porcine 5,000 Unit/Ml 1 Ml Vial SQ 5,000 unit Q8HR JUANA Administration Insulin Aspart 0 unit 07/27/24 12:30 07/28/24 06:48 Insulin Aspart (Novolog) 100 Unit/Ml Vial SQ 08/03/24 12:29 Not Given ACHS [facility] Protocol Losartan Potassium 25 mg 07/27/24 12:00 07/28/24 09:03 Losartan 25 Mg Tab PO 25 mg DAILY@1200 [facility] Administration Metoprolol Tartrate 12.5 mg 07/27/24 12:00 07/28/24 09:04 Metoprolol Tartrate 12.5 Mg Tab PO 12.5 mg BID@1200,2100 [facility] Administration Midodrine 10 mg 07/26/24 21:20 07/28/24 06:42 Midodrine 5 Mg Tab PO 10 mg AC-TID JUANA Administration Pantoprazole Sodium 40 mg 07/27/24 12:00 07/28/24 09:04 Pantoprazole 40 Mg Tablet PO 40 mg DAILY@1200 [facility] Administration Potassium Chloride 20 meq 07/27/24 12:00 07/28/24 09:04 Potassium Chloride Er 20 Meq Tab.Er PO 20 meq DAILY@1200 [facility] Administration Prednisone 40 mg 07/27/24 10:45 07/28/24 09:03 Prednisone 20 Mg Tab PO 40 mg DAILY JUANA Administration Tamsulosin HCl 0.4 mg 07/27/24 12:00 07/28/24 09:04 Tamsulosin 0.4 Mg Cap.Er.24h PO 0.4 mg DAILY@1200 [facility] Administration Intake and Output 07/27/24 07/28/24 07/28/24 22:59 06:59 14:59 Output Total 200 1300 Balance -200 -1300 Output: Urine 200 1300 Other: Voiding Method External Catheter External Catheter External Catheter Weight 97.069 kg 62.5 kg 07/28/24 06:49 07/28/24 06:49
--- NOTE | 2024-07-28 13:15 | P.PN ---
Subjective Progress Note Date: 07/28/24 Principal diagnosis: Acute on chronic systolic congestive heart failure, ischemic cardiomyopathy ejection fraction 40 to 45% This is a 69-year-old male patient who resides in a care home and has a history of hypertension, hyperlipidemia, coronary artery disease, CVA with res idual right sided weakness, congestive heart failure, diabetes mellitus previous tracheostomy and PEG tube placement with subsequent removal. He has a history of left cervical and preauricular adenopathy with incision overlying primary mass status post radiation treatments in 2022 he was brought into the emergency department yesterday after having complaints of shortness of breath and found to have pulse oximeter readings in the 80s. Chest x-ray revealed hypoventilatory changes. Cardiomegaly and diffuse interstitial and patchy opacities. White count 6.1. Hemoglobin 10.3. Platelets 206. Sodium 141. Potassium 4.2. Bicarb 21. BUN 37. Creatinine 1.51. Arterial blood gases on room air revealed a PaO2 of 61, pCO2 28 and a pH of 7.46. He is seen in the emergency department. Currently resting on a stretcher. Awake, drifts off easily, poor historian. He is maintaining O2 saturations in the 90s on 3 L/min per nasal cannula. He has been initiated on Lasix 40 mg IV every 12 hours. No intake or output recorded. He is on Symbicort, DuoNeb and elations, prednisone. Heparin for DVT prophylaxis. Seen today on 07/28/2024, patient is feeling better today compared to yesterday., On 3 L nasal cannula and O2 saturation is 100% blood pressure is 106/67 patient had a negative fluid balance of 2200 cc over the last 24 hours. Remains on Lasix responding well to diuresis. CBC is relatively normal electrolytes are normal BUN is 35 creatinine 1.49, Slightly improved compared to yesterday creatinine of 1.52 Objective - Vital Signs Vital signs: Vital Signs Temp 97.7 F 07/28/24 03:41 Pulse 78 07/28/24 12:00 Resp 16 07/28/24 12:00 BP 106/67 07/28/24 12:00 Pulse Ox 100 07/28/24 12:00 FiO2 Intake & Output 07/27/24 07/28/24 07/28/24 18:59 06:59 18:59 Output Total 900 1300 Balance -900 -1300 Weight 97.069 kg 62.5 kg Output: Urine 900 1300 Male - External 700 Other: Voiding Method External Catheter External Catheter - Exam GENERAL EXAM: Revealed a 69-year-old white male in no distress on 3L nasal can nula HEAD: Normocephalic. EYES: Normal reaction of pupils, equal size. NOSE: Clear with pink turbinates. THROAT: No erythema or exudates. NECK: No masses, no JVD. CHEST: No chest wall deformity. LUNGS: Bibasilar crackles noted. CVS: S1 and S2 normal with no audible murmur, regular rhythm. ABDOMEN: No hepatosplenomegaly, normal bowel sounds, no guarding or rigidity. SKIN: No rashes CENTRAL NERVOUS SYSTEM: Right sided hemiplegia. EXTREMITIES: There is 1+ peripheral edema. No clubbing, no cyanosis. Peripheral pulses are intact. - Labs CBC & Chem 7: 07/28/24 06:49 07/28/24 06:49 Labs: Abnormal Lab Results - Last 24 Hours (Table) 07/27/24 07/27/24 07/27/24 Range/Units 13:32 17:10 20:33 RBC (4.30-5.90) m/uL Hgb (13.0-17.5) gm/dL Hct (39.0-53.0) % MCHC (31.0-37.0) g/dL RDW (11.5-15.5) % Lymphocytes # (1.0-4.8) k/uL Chloride (98-107) mmol/L BUN (9-20) mg/dL Creatinine (0.66-1.25) mg/dL Glucose (74-99) mg/dL POC Glucose (mg/dL) 146 H 147 H 140 H (70-110) mg/dL 07/28/24 07/28/24 07/28/24 Range/Units 06:33 06:49 06:49 RBC 3.70 L (4.30-5.90) m/uL Hgb 10.0 L (13.0-17.5) gm/dL Hct 33.7 L (39.0-53.0) % MCHC 29.7 L (31.0-37.0) g/dL RDW 17.7 H (11.5-15.5) % Lymphocytes # 0.4 L (1.0-4.8) k/uL Chloride 108 H (98-107) mmol/L BUN 35 H (9-20) mg/dL Creatinine 1.49 H (0.66-1.25) mg/dL Glucose 115 H (74-99) mg/dL POC Glucose (mg/dL) 111 H (70-110) mg/dL 07/28/24 Range/Units 11:26 RBC (4.30-5.90) m/uL Hgb (13.0-17.5) gm/dL Hct (39.0-53.0) % MCHC (31.0-37.0) g/dL RDW (11.5-15.5) % Lymphocytes # (1.0-4.8) k/uL Chloride (98-107) mmol/L BUN (9-20) mg/dL Creatinine (0.66-1.25) mg/dL Glucose (74-99) mg/dL POC Glucose (mg/dL) 160 H (70-110) mg/dL Assessment and Plan Assessment: Impression: Acute hypoxemic respiratory failure secondary to an acute on chronic systolic congestive heart failure with moderate LV dysfunction Acute exacerbation of chronic obstructive pulmonary disease Acute kidney injury History of left cervical and preauricular adenopathy, stage Ia status post radiation History of previous ventilatory dependent respiratory failure requiring tracheostomy and PEG tube insertions was subsequent removal History of failure to thrive residential resident for functional performance History of CVA with right-sided hemiplegia Diabetes mellitus Poor historian Recommendation: Continue diuretics Continue to monitor daily labs electrolytes and renal profile Continue bronchodilators Continue strict I's and O's Titrate FiO2 accordingly and possibly discontinue oxygen if tolerated on room air Will continue to follow. Time with Patient: Less than 30
--- NOTE | 2024-07-28 14:46 | P.PN ---
Subjective Progress Note Date: 07/27/24 69-year-old male, history of hypertension, hyperlipidemia, diabetes mellitus, CAD/AK status post cardiac catheterization with stent placement, history of asthma/COPD, who presents to the emergency department from a half-way because he stated he was short of breath and they were getting pulse ox in the 80s. Patient himself says he does not feel short of breath however patient is only alert and oriented x 2. Patient does appear to have some respiratory distress. Patient does have a history of COPD. Again patient himself has no complaints but his history is not all that accurate at this point. No family or caregivers with the patient Blood work reveals WBC of 5.7, hemoglobin of 9.3 and platelet count of 206, sodium 139, potassium 4.2, BUNs/creatinine of 36/1.52 and blood glucose of 185, BNP is elevated at 5770, troponin at 0.025, lactic acid of 1.1, ABG reveals pH of 7.46, pCO2 of 28, pO2 of 61 and O2 saturation 91% EKG shows a sinus rhythm at 90 bpm CO interval is 217 QRS is 112 QT interval 368 QTc is 424. Patient's EKG shows no ST segment ovation or depression. Patient does have some flipped T waves in leads I and aVL as well as precordial leads V5 and V6 Chest x-ray is consistent with acute pulmonary edema Objective - Vital Signs Vital signs: Vital Signs Temp 98.0 F 07/27/24 07:21 Pulse 94 07/27/24 08:53 Resp 16 07/27/24 08:53 BP 94/65 07/27/24 08:53 Pulse Ox 98 07/27/24 08:53 FiO2 Intake & Output 07/26/24 07/27/24 07/27/24 18:59 06:59 18:59 Weight 97.069 kg - Exam Patient is well-developed and well-nourished. Patient is nontoxic and well- hydrated and is in mild distress. ENT:Neck is soft and supple. No significant lymphadenopathy is noted. Oropharynx is clear. Moist mucous membranes. Neck has full range of motion without eliciting any pain. The sclera were anicteric and conjunctiva were pink and moist. Extraocular movements were intact and pupils were equal round and reactive to light. Eyelids were unremarkable. PULMONARY: His lungs are clear however he does have some belly breathing. CARDIOVASCULAR: There is a regular rate and rhythm without any murmurs gallops or rubs. ABDOMEN: Soft and nontender with normal bowel sounds. SKIN: is clear with no lesions or rashes and otherwise unremarkable. NEUROLOGIC:Patient is alert and oriented x 2. Cranial nerves II through XII are grossly intact. Motor and sensory are also intact. Normal speech, volume and content. Symmetrical smile. MUSCULOSKELETAL:Normal extremities with adequate strength and full range of motion. No lower extremity swelling or edema. No calf tenderness. - Labs CBC & Chem 7: 07/28/24 06:49 07/28/24 06:49 Labs: Abnormal Lab Results - Last 24 Hours (Table) 07/26/24 07/26/24 07/26/24 Range/Units 14:54 14:54 14:54 RBC 3.39 L (4.30-5.90) m/uL Hgb 9.3 L (13.0-17.5) gm/dL Hct 30.5 L (39.0-53.0) % MCHC 30.6 L (31.0-37.0) g/dL RDW 18.0 H (11.5-15.5) % Lymphocytes # 0.3 L (1.0-4.8) k/uL INR 1.2 H (<1.2) ABG pH (7.35-7.45) ABG pCO2 (35-45) mmHg ABG pO2 (83-108) mmHg ABG HCO3 (21-25) mmol/L ABG O2 Saturation (94-97) % Hemoglobin (13.0-17.5) gm/dL Chloride 109 H (98-107) mmol/L Carbon Dioxide 19 L (22-30) mmol/L BUN 36 H (9-20) mg/dL Creatinine 1.52 H (0.66-1.25) mg/dL Glucose 185 H (74-99) mg/dL POC Glucose (mg/dL) (70-110) mg/dL Total Bilirubin 1.6 H (0.2-1.3) mg/dL 07/26/24 07/27/24 Range/Units 15:18 09:09 RBC (4.30-5.90) m/uL Hgb (13.0-17.5) gm/dL Hct (39.0-53.0) % MCHC (31.0-37.0) g/dL RDW (11.5-15.5) % Lymphocytes # (1.0-4.8) k/uL INR (<1.2) ABG pH 7.46 H (7.35-7.45) ABG pCO2 28 L (35-45) mmHg ABG pO2 61 L (83-108) mmHg ABG HCO3 20 L (21-25) mmol/L ABG O2 Saturation 91.1 L (94-97) % Hemoglobin 9.5 L (13.0-17.5) gm/dL Chloride (98-107) mmol/L Carbon Dioxide (22-30) mmol/L BUN (9-20) mg/dL Creatinine (0.66-1.25) mg/dL Glucose (74-99) mg/dL POC Glucose (mg/dL) 151 H (70-110) mg/dL Total Bilirubin (0.2-1.3) mg/dL Assessment and Plan Assessment: 1. Acute pulmonary edema -BNP is elevated above 5000; chest x-ray reveals cardiomegaly and diffuse interstitial and patchy opacities correlating with CHF with interstitial pulmonary edema -Patient has been placed on Lasix 40 mg IV every 12 hours; will monitor strict BELEM's, daily weights, low-salt and fluid restricted diet -Recommend 2D echo; consult cardiology -Patient has history of cardiomyopathy with a EF of 45% previously 2. Acute respiratory distress/failure; history of asthma; possible mild exacerbation -Patient has been placed on DuoNeb nebulizer treatments 4 times daily and as needed; will add oral prednisone 40 mg daily x 5 days; resume home inhaler therapy -Consult pulmonary for further recommendations 3. Acute renal injury; creatinine elevated at 1.52; baseline creatinine of 1.2; could be related to renal vascular congestion associated with CHF -We will monitor strict BELEM's, daily weights, renal function electrolytes; avoid nephrotoxins and hypotension 2. Hypertension; metoprolol 12.5 mg twice daily, losartan 25 mg daily 5. Hyperlipidemia; Lipitor 40 mg p.o. nightly; fenofibrate 54 mg daily 6. Diabetes mellitus type 2/diabetic peripheral neuropathy; Lantus 21 units SQ nightly; Accu-Cheks before every meal and at bedtime with insulin sliding scale 7. History of Hodgkin's lymphoma; status post radiation; patient completed t reatment in April 2023 DVT prophylaxis; SCDs/subcu heparin CODE STATUS; full code
--- NOTE | 2024-07-28 14:52 | P.PN ---
Subjective Progress Note Date: 07/28/24 69-year-old male, history of hypertension, hyperlipidemia, diabetes mellitus, CAD/GA status post cardiac catheterization with stent placement, history of asthma/COPD, who presents to the emergency department from a intermediate because he stated he was short of breath and they were getting pulse ox in the 80s. Patient himself says he does not feel short of breath however patient is only alert and oriented x 2. Patient does appear to have some respiratory distress. Patient does have a history of COPD. Again patient himself has no complaints but his history is not all that accurate at this point. No family or caregivers with the patient Blood work reveals WBC of 5.7, hemoglobin of 9.3 and platelet count of 206, sodium 139, potassium 4.2, BUNs/creatinine of 36/1.52 and blood glucose of 185, BNP is elevated at 5770, troponin at 0.025, lactic acid of 1.1, ABG reveals pH of 7.46, pCO2 of 28, pO2 of 61 and O2 saturation 91% EKG shows a sinus rhythm at 90 bpm [place] interval is 217 QRS is 112 QT interval 368 QTc is 424. Patient's EKG shows no ST segment ovation or depression. Patient does have some flipped T waves in leads I and aVL as well as precordial leads V5 and V6 Chest x-ray is consistent with acute pulmonary edema 07/28/2024 Patient is seen and evaluated in room with family at bedside; patient sisters concern about patient sleeping too much; reports patient was placed on Xanax 3 times daily at the intermediate; requesting it to be changed to as needed Vital signs are reviewed; patient is currently on 3 L nasal cannula and O2 saturation is 100% blood pressure is 106/67 --CBC is relatively normal electrolytes are normal BUN is 35 creatinine 1.49, Slightly improved compared to yesterday creatinine of 1.52 Remains on Lasix responding well to diuresis. -- Cardiology recommending to continue current dose with further recommendations once echocardiogram is completed; last echocardiogram revealed an EF of 40 to 45% Objective - Vital Signs Vital signs: Vital Signs Temp 97.7 F 07/28/24 03:41 Pulse 89 07/28/24 08:00 Resp 16 07/28/24 08:00 BP 120/69 07/28/24 08:00 Pulse Ox 100 07/28/24 08:00 FiO2 Intake & Output 07/27/24 07/28/24 07/28/24 18:59 06:59 18:59 Output Total 900 1300 Balance -900 -1300 Weight 97.069 kg 62.5 kg Output: Urine 900 1300 Male - External 700 Other: Voiding Method External Catheter - Exam Patient is well-developed and well-nourished. Patient is nontoxic and well- hydrated and is in mild distress. ENT:Neck is soft and supple. No significant lymphadenopathy is noted. Oropharynx is clear. Moist mucous membranes. Neck has full range of motion without eliciting any pain. The sclera were anicteric and conjunctiva were pink and moist. Extraocular movements were intact and pupils were equal round and reactive to light. Eyelids were unremarkable. PULMONARY: His lungs are clear however he does have some belly breathing. CARDIOVASCULAR: There is a regular rate and rhythm without any murmurs gallops or rubs. ABDOMEN: Soft and nontender with normal bowel sounds. SKIN: is clear with no lesions or rashes and otherwise unremarkable. NEUROLOGIC:Patient is alert and oriented x 2. Cranial nerves II through XII are grossly intact. Motor and sensory are also intact. Normal speech, volume and content. Symmetrical smile. MUSCULOSKELETAL:Normal extremities with adequate strength and full range of motion. No lower extremity swelling or edema. No calf tenderness. - Labs CBC & Chem 7: 07/28/24 06:49 07/28/24 06:49 Labs: Abnormal Lab Results - Last 24 Hours (Table) 07/27/24 07/27/24 07/27/24 Range/Units 10:54 10:54 13:32 RBC 3.67 L (4.30-5.90) m/uL Hgb 10.3 L (13.0-17.5) gm/dL Hct 33.1 L (39.0-53.0) % MCHC 30.9 L (31.0-37.0) g/dL RDW 18.2 H (11.5-15.5) % Lymphocytes # 0.4 L (1.0-4.8) k/uL Chloride 111 H (98-107) mmol/L Carbon Dioxide 21 L (22-30) mmol/L BUN 37 H (9-20) mg/dL Creatinine 1.51 H (0.66-1.25) mg/dL Glucose 137 H (74-99) mg/dL POC Glucose (mg/dL) 146 H (70-110) mg/dL 07/27/24 07/27/24 07/28/24 Range/Units 17:10 20:33 06:33 RBC (4.30-5.90) m/uL Hgb (13.0-17.5) gm/dL Hct (39.0-53.0) % MCHC (31.0-37.0) g/dL RDW (11.5-15.5) % Lymphocytes # (1.0-4.8) k/uL Chloride (98-107) mmol/L Carbon Dioxide (22-30) mmol/L BUN (9-20) mg/dL Creatinine (0.66-1.25) mg/dL Glucose (74-99) mg/dL POC Glucose (mg/dL) 147 H 140 H 111 H (70-110) mg/dL 07/28/24 07/28/24 Range/Units 06:49 06:49 RBC 3.70 L (4.30-5.90) m/uL Hgb 10.0 L (13.0-17.5) gm/dL Hct 33.7 L (39.0-53.0) % MCHC 29.7 L (31.0-37.0) g/dL RDW 17.7 H (11.5-15.5) % Lymphocytes # 0.4 L (1.0-4.8) k/uL Chloride 108 H (98-107) mmol/L Carbon Dioxide (22-30) mmol/L BUN 35 H (9-20) mg/dL Creatinine 1.49 H (0.66-1.25) mg/dL Glucose 115 H (74-99) mg/dL POC Glucose (mg/dL) (70-110) mg/dL Assessment and Plan Assessment: 1. Acute pulmonary edema -BNP is elevated above 5000; chest x-ray reveals cardiomegaly and diffuse interstitial and patchy opacities correlating with CHF with interstitial pulmonary edema -Patient has been placed on Lasix 40 mg IV every 12 hours; will monitor strict BELEM's, daily weights, low-salt and fluid restricted diet -Recommend 2D echo; consult cardiology -Patient has history of cardiomyopathy with a EF of 45% previously 2. Acute respiratory distress/failure; history of asthma; possible mild exacerbation -Patient has been placed on DuoNeb nebulizer treatments 4 times daily and as needed; will add oral prednisone 40 mg daily x 5 days; resume home inhaler therapy -Consult pulmonary for further recommendations 3. Acute renal injury; creatinine elevated at 1.52; baseline creatinine of 1.2; could be related to renal vascular congestion associated with CHF -We will monitor strict BELEM's, daily weights, renal function electrolytes; avoid nephrotoxins and hypotension 2. Hypertension; metoprolol 12.5 mg twice daily, losartan 25 mg daily 5. Hyperlipidemia; Lipitor 40 mg p.o. nightly; fenofibrate 54 mg daily 6. Diabetes mellitus type 2/diabetic peripheral neuropathy; Lantus 21 units SQ nightly; Accu-Cheks before every meal and at bedtime with insulin sliding scale 7. History of Hodgkin's lymphoma; status post radiation; patient completed adolph tment in April 2023 DVT prophylaxis; SCDs/subcu heparin CODE STATUS; full code
[2024-07-28 16:23] LABS: Glucose,Whole Blood 193 mg/dL (70-110)
[2024-07-28 20:27] LABS: Glucose,Whole Blood 199 mg/dL (70-110)
[2024-07-29] MEDS: ALPRAZolam 0.25 MG TAB PO PRN (03:48)
[2024-07-29 06:56] LABS: Glucose,Whole Blood 147 mg/dL (70-110)
--- NOTE | 2024-07-29 07:34 | XR ---
EXAMINATION TYPE: XR chest 1V portable DATE OF EXAM: 07/29/2024 Comparison: 07/26/2024 Clinical History: 69-year-old male CHF Findings: Heart mildly enlarged. Low lung volumes. Diffuse interstitial density persists with slight improvemen t. Patchy opacity probably atelectasis left base is similar as well. Impression: Hypoventilatory changes with ongoing pulmonary vascular congestion though with improvement from prior . [facility], , 07/29/2024 7:31 AM
[2024-07-29] MEDS: HYDROcodone/APAP 5-325MG 1 EACH TAB PO PRN (07:57)
[2024-07-29 08:38] LABS: African American GFR (CKD) 55 (>60 ml/min/1.73 sqM); Anion Gap 11 mmol/L; Blood Urea Nitrogen 46 mg/dL (9-20); Calcium 8.8 mg/dL (8.4-10.2); Carbon Dioxide 22 mmol/L (22-30); Chloride 105 mmol/L (98-107); Glucose 132 mg/dL (74-99); Non-African American GFR(CKD) 47 (>60 ml/min/1.73 sqM); Sodium 138 mmol/L (137-145)
[2024-07-29 08:47] LABS: Potassium 4.5 mmol/L (3.5-5.1)
--- NOTE | 2024-07-29 11:25 | P.PN ---
Subjective HISTORY OF PRESENT ILLNESS: This is a 69-year-old male who follows in the office with Dr. Matthews. Patient is admitted to the hospital due to congestive heart failure. Patient examined this morning at the bedside. Patient currently denies any chest pain or pressure. He denies any shortness of breath. He remains on IV Lasix. Creatinine remained stable today at 1.48. He is currently on room air with oxygen saturations greater than 92%. Blood pressure stable. Telemetry reveals sinus mechanism. PHYSICAL EXAM: VITAL SIGNS: Reviewed. GENERAL: Well-developed in no acute distress. NECK: Supple. No JVD or thyromegaly LUNGS: Respirations even and unlabored. Lungs essentially clear to auscultation bilaterally. HEART: Regular rate and rhythm. S1 heard. Unable to auscultate S2. Significant systolic murmur noted. EXTREMITIES: Normal range of motion. No clubbing or cyanosis. Peripheral pulses intact. No lower extremity edema ASSESSMENT: Acute on chronic heart failure with preserved EF, 55 to 60% in 2022, repeat echo pending, currently euvolemic Severe aortic stenosis Acute kidney injury Coronary artery disease with previous PCI, most recently RCA and 08/2022 Hypertension Hyperlipidemia Diabetes History of COPD History of CVA PLAN: Discontinue IV Lasix. Begin oral Lasix 40 mg daily. Monitor kidney function Continue additional cardiac medications Preliminary echo reveals severe aortic stenosis. Await final report. Patient symptoms are likely secondary to severe aortic stenosis. Recommend outpatient LUCA and heart cath as part of valve replacement workup. Patient to follow-up postdischarge with Dr. Matthews Nurse practitioner note has been reviewed by physician. Signing provider agrees with the documented findings, assessment, and plan of care documented by CROSSING GATEMAN as a scribe. Objective - Vital Signs Vital signs: Vital Signs Temp 97.5 F L 07/29/24 07:44 Pulse 76 07/29/24 11:08 Resp 14 07/29/24 07:44 BP 115/68 07/29/24 07:44 Pulse Ox 91 L 07/29/24 07:48 FiO2 21 07/29/24 07:48 Intake & Output 07/28/24 07/29/24 07/29/24 18:59 06:59 18:59 Output Total 700 850 Balance -700 -850 Weight 95 kg Output: Urine 700 850 Other: Voiding Method External Catheter External Catheter External Catheter - Labs CBC & Chem 7: 07/28/24 06:49 07/29/24 07:34 Labs: Abnormal Lab Results - Last 24 Hours (Table) 07/28/24 07/28/24 07/28/24 Range/Units 11:26 16:22 20:24 BUN (9-20) mg/dL Creatinine (0.66-1.25) mg/dL Glucose (74-99) mg/dL POC Glucose (mg/dL) 160 H 193 H 199 H (70-110) mg/dL 07/29/24 07/29/24 Range/Units 06:54 07:34 BUN 46 H (9-20) mg/dL Creatinine 1.48 H (0.66-1.25) mg/dL Glucose 132 H (74-99) mg/dL POC Glucose (mg/dL) 147 H (70-110) mg/dL
[2024-07-29 11:38] LABS: Glucose,Whole Blood 260 mg/dL (70-110)
--- NOTE | 2024-07-29 11:42 | CA ---
Transthoracic Echo Report Name: Willie Mantilla Age: 69 Gender: M : 1955 Exam Date: 07/29/2024 09:02 Exam Location: [facility] Ht (in): 71 Wt (lb): 214 Ordering Physician: Michelle South MD Attending/Referring Phys: [id number], [place] Practice Assistant Sonia Kevin RDCS Procedure CPT: Indications: chf Cardiac Hx: Technical Quality: Fair Contrast 1: Definity Total Dose (mL): 2 Contrast 2: Total Dose (mL): MEASUREMENTS (Male / Female) Normal Values 2D ECHO LV Diastolic Diameter PLAX 4.9 cm 4.2 - 5.9 / 3.9 - 5.3 cm LV Systolic Diameter PLAX 3.8 cm IVS Diastolic Thickness 0.9 cm 0.6 - 1.0 / 0.6 - 0.9 cm LVPW Diastolic Thickness 1.0 cm 0.6 - 1.0 / 0.6 - 0.9 cm LV Relative Wall Thickness 0.4 RV Internal Dim ED PLAX 1.7 cm LVOT Diameter 1.7 cm LA Volume 134.3 cm??? 18 - 58 / 22 - 52 cm??? LA Volume Index 60.3 cm???/m??? 16 - 28 cm???/m??? M-MODE Aortic Root Diameter MM 3.2 cm LA Systolic Diameter MM 4.8 cm LA Ao Ratio MM 1.5 AV Cusp Separation MM 0.6 cm DOPPLER AV Peak Velocity 477.0 cm/s AV Peak Gradient 91.0 mmHg AV Mean Velocity 367.7 cm/s AV Mean Gradient 59.4 mmHg AV Velocity Time Integral 115.9 cm AI Peak Velocity 306.2 cm/s AI Peak Gradient 37.5 mmHg AI Pressure Half Time 492.0 ms LVOT Peak Velocity 100.9 cm/s LVOT Peak Gradient 4.1 mmHg LVOT Velocity Time Integral 24.2 cm LVOT Stroke Volume 53.3 cm??? LVOT Stroke Volume Index 24.6 ml/m??? LVOT Cardiac Index 2104.8 cm???/min???m??? AV Area Cont Eq vti 0.5 cm??? AV Area Cont Eq pk 0.5 cm??? MV Peak Velocity 145.6 cm/s MV Peak Gradient 8.5 mmHg MV Mean Velocity 72.5 cm/s MV Mean Gradient 2.8 mmHg MV Velocity Time Integral 48.2 cm MV Area PHT 3.1 cm??? Mitral E Point Velocity 135.2 cm/s Mitral A Point Velocity 104.8 cm/s Mitral E to A Ratio 1.3 MV Deceleration Time 242.2 ms TR Peak Velocity 276.4 cm/s TR Peak Gradient 30.6 mmHg Right Ventricular Systolic Press 32.6 mmHg FINDINGS Left Ventricle Left ventricular ejection fraction is estimated at 40. Moderately reduced global left ventricular systolic function. Left ventricular cavity size normal. Left ventricular wall thickness normal. No obvious regional wall motion abnormalities. Right Ventricle Normal right ventricular size and function. Right ventricular systolic pressure within normal limits. Right Atrium Mild right atrial dilatation. Left Atrium Severely increased left atrial volume. Mildly increased left atrial area. Mitral Valve Structurally normal mitral valve. Mitral valve thickened. Mitral annular calcification. Mild mitral regurgitation. Aortic Valve Severe aortic stenosis with a peak velocity of 4.8m/s, peak gradient 91 mmHg, mean gradient 60 mmHg, and estimated aortic valve area of .5 cm???. Mild aortic regurgitation. Tricuspid Valve Structurally normal tricuspid valve. Mild tricuspid regurgitation. No tricuspid stenosis. Pulmonic Valve Structurally normal pulmonic valve. No pulmonic stenosis. Trace pulmonic regurgitation. Pericardium No pericardial or pleural effusion. Aorta Normal size aortic root and proximal ascending aorta. CONCLUSIONS Technically suboptimal study secondary to poor echo windows Moderate LV systolic dysfunction with an ejection fraction of 45% Heavily calcified aortic valve with severe restriction in leaflet mobility and severe aortic stenosis with a peak gradient of 90 mm and the mean gradient of 60 mm across the valve Consider transesophageal echo both for better evaluation of the LV function and aortic stenosis Previewed by: Dr. Hitesh Kim MD (Electronically Signed) Final Date: 29 July 2024 11:41
--- NOTE | 2024-07-29 12:11 | P.PN ---
Subjective Progress Note Date: 07/29/24 Principal diagnosis: Congestive heart failure. This is a 69-year-old male patient who resides in a group home and has a history of hypertension, hyperlipidemia, coronary artery disease, CVA with residual right sided weakness, congestive heart failure, diabetes mellitus previous tracheostomy and PEG tube placement with subsequent removal. He has a history of left cervical and preauricular adenopathy with incision overlying primary mass status post radiation treatments in 2022 he was brought into the emergency department yesterday after having complaints of shortness of breath and found to have pulse oximeter readings in the 80s. Chest x-ray revealed hypoventilatory changes. Cardiomegaly and diffuse interstitial and patchy opacities. White count 6.1. Hemoglobin 10.3. Platelets 206. Sodium 141. Potassium 4.2. Bicarb 21. BUN 37. Creatinine 1.51. Arterial blood gases on room air revealed a PaO2 of 61, pCO2 28 and a pH of 7.46. He is seen in the emergency department. Currently resting on a stretcher. Awake, drifts off easily, poor historian. He is maintaining O2 saturations in the 90s on 3 L/min per nasal cannula. He has been initiated on Lasix 40 mg IV every 12 hours. No intake or output recorded. He is on Symbicort, DuoNeb and elations, prednisone. Heparin for DVT prophylaxis. Seen today on 07/28/2024, patient is feeling better today compared to yesterday., On 3 L nasal cannula and O2 saturation is 100% blood pressure is 106/67 patient had a negative fluid balance of 2200 cc over the last 24 hours. Remains on Lasix responding well to diuresis. CBC is relatively normal electrolytes are normal BUN is 35 creatinine 1.49, Slightly improved compared to yesterday creatinine of 1.52 Progress note dated July 29, 2024. 69-year-old male seen today in room 352. The patient appears to be doing relatively well. He is not having any distress or difficulty. In fact, he is on room air. He is not receiving any IV fluids. His chest x-ray today, is improved. Laboratory data was a sodium 138, potassium 4.5, chlorides 105, CO2 22, anion gap 11, BUN 46, creatinine 1.48. Glucose is 260. Calcium is 8.8. Objective - Vital Signs Vital signs: Vital Signs Temp 97.9 F 10/28/24 11:25 Pulse 98 07/29/24 11:25 Resp 16 07/29/24 11:25 BP 106/67 07/29/24 11:25 Pulse Ox 95 07/29/24 11:25 FiO2 21 07/29/24 07:48 Intake & Output 07/28/24 07/29/24 07/29/24 18:59 06:59 18:59 Output Total 700 850 Balance -700 -850 Weight 95 kg Output: Urine 700 850 Other: Voiding Method External Catheter External Catheter External Catheter - Exam No acute distress, oriented 3. Currently on room air. No respiratory distress. HEENT examination is grossly unremarkable. Mucous membranes are moist. No oral lesions. Neck supple. Full range of motion. No adenopathy thyromegaly or neck vein distention. Cardiovascular examination reveals regular rhythm rate. S1-S2 normal. No S3 or S4. No discernible murmur noted. Lungs reveal mostly clear breath sounds. Minimal basilar crackles. No wheezes or rhonchi. Abdomen soft bowel sounds are heard. No masses or tenderness. Extremities are intact. No cyanosis or clubbing. Trace edema. Skin is without rash or lesion. Neurologic examination is brief but nonfocal. - Labs CBC & Chem 7: 07/28/24 06:49 07/29/24 07:34 Labs: Abnormal Lab Results - Last 24 Hours (Table) 07/28/24 07/28/24 07/29/24 Range/Units 16:22 20:24 06:54 BUN (9-20) mg/dL Creatinine (0.66-1.25) mg/dL Glucose (74-99) mg/dL POC Glucose (mg/dL) 193 H 199 H 147 H (70-110) mg/dL 07/29/24 07/29/24 Range/Units 07:34 11:37 BUN 46 H (9-20) mg/dL Creatinine 1.48 H (0.66-1.25) mg/dL Glucose 132 H (74-99) mg/dL POC Glucose (mg/dL) 260 H (70-110) mg/dL Assessment and Plan Assessment: Acute hypoxemic respiratory failure secondary to acute on chronic systolic congestive heart failure. Acute exacerbation of COPD. Acute kidney injury. History of left cervical and preauricular adenopathy. History of ventilator dependent respiratory failure, with previous tracheostomy/PEG tube insertion, and subsequent removal. History of CVA with right-sided hemiplegia. History of diabetes mellitus. General medical debility. Plan: Plan dated July 29, 2024. The patient is sitting up in bed. He is not on any oxygen. He is not receiving any IV fluids. His chest x-ray today, compared to his admission chest x-ray shows improvement. Labs, x-rays, and all medications are reviewed. We will continue to follow make recommendations where appropriate. The patient continues on diuretics. Labs are being followed. We continue bronchodilators. The patient is to have strict I's and O's. We will continue to follow make recommendations along the way. Prognosis is guarded. Time with Patient: Less than 30
[2024-07-29 16:43] LABS: Glucose,Whole Blood 343 mg/dL (70-110)
[2024-07-29 20:04] LABS: Glucose,Whole Blood 419 mg/dL (70-110)
--- NOTE | 2024-07-29 22:35 | P.PN ---
Subjective Progress Note Date: 07/29/24 69-year-old male, history of hypertension, hyperlipidemia, diabetes mellitus, CAD/MA status post cardiac catheterization with stent placement, history of asthma/COPD, who presents to the emergency department from a [facility] because he stated he was short of breath and they were getting pulse ox in the 80s. Patient himself says he does not feel short of breath however patient is only alert and oriented x 2. Patient does appear to have some respiratory distress. Patient does have a history of COPD. Again patient himself has no complaints but his history is not all that accurate at this point. No family or caregivers with the patient Blood work reveals WBC of 5.7, hemoglobin of 9.3 and platelet count of 206, sodium 139, potassium 4.2, BUNs/creatinine of 36/1.52 and blood glucose of 185, BNP is elevated at 5770, troponin at 0.025, lactic acid of 1.1, ABG reveals pH of 7.46, pCO2 of 28, pO2 of 61 and O2 saturation 91% EKG shows a sinus rhythm at 90 bpm CA interval is 217 QRS is 112 QT interval 368 QTc is 424. Patient's EKG shows no ST segment ovation or depression. Patient does have some flipped T waves in leads I and aVL as well as precordial leads V5 and V6 Chest x-ray is consistent with acute pulmonary edema 07/28/2024 Patient is seen and evaluated in room with family at bedside; patient sisters concern about patient sleeping too much; reports patient was placed on Xanax 3 times daily at the [facility]; requesting it to be changed to as needed Vital signs are reviewed; patient is currently on 3 L nasal cannula and O2 saturation is 100% blood pressure is 106/67 --CBC is relatively normal electrolytes are normal BUN is 35 creatinine 1.49, Slightly improved compared to yesterday creatinine of 1.52 Remains on Lasix responding well to diuresis. -- Cardiology recommending to continue current dose with further recommendations once echocardiogram is completed; last echocardiogram revealed an EF of 40 to 45% 07/29/2024 Patient is evaluated in follow up today on the medical floor. He continues on IV lasix 40 mg Q12, still having some shortness of breath. He is hoping to return to [facility] soon. Chest xray shows improving vascular congestion. BUN 46, creatinine 1.48. Echocardiogram shows EF 40-45%. Review of Systems Constitutional: Denied any fatigue denied any fever. Cardio vascular: denied any chest pain, palpitations Gastrointestinal: denied any nausea, vomiting, diarrhea Pulmonary: Denied any shortness of breath cough Neurologic denied any new focal deficits All inpatient medications were reviewed and appropriate changes in these medications as dictated in the interval history and assessment and plan. PHYSICAL EXAMINATION: GENERAL: The patient is alert and oriented x3, not in any acute distress. Well developed, well nourished. HEENT: Pupils are round and equally reacting to light. EOMI. No scleral icterus. No conjunctival pallor. Normocephalic, atraumatic. No pharyngeal erythema. No thyromegaly. CARDIOVASCULAR: S1 and S2 present. No murmurs, rubs, or gallops. PULMONARY: Chest is clear to auscultation, no wheezing or crackles. ABDOMEN: Soft, nontender, nondistended, normoactive bowel sounds. No palpable organomegaly. MUSCULOSKELETAL: No joint swelling or deformity. EXTREMITIES: No cyanosis, clubbing, or pedal edema. NEUROLOGICAL: Gross neurological examination did not reveal any focal deficits. SKIN: No rashes. Assessment and Plan 1. Acute pulmonary edema -BNP is elevated above 5000; chest x-ray reveals cardiomegaly and diffuse interstitial and patchy opacities correlating with CHF with interstitial pulmonary edema -Patient has been placed on Lasix 40 mg IV every 12 hours; will monitor strict BELEM's, daily weights, low-salt and fluid restricted diet -Patient has history of cardiomyopathy with a EF of 45% previously -Repeat echocoardiogram shows EF 40-45%. 2. Acute respiratory distress/failure; history of asthma; possible mild exacerbation -Patient has been placed on DuoNeb nebulizer treatments 4 times daily and as needed; will add oral prednisone 40 mg daily x 5 days; resume home inhaler therapy -Consult pulmonary for further recommendations 3. Acute renal injury; creatinine elevated at 1.52; baseline creatinine of 1.2; could be related to renal vascular congestion associated with CHF -We will monitor strict BELEM's, daily weights, renal function electrolytes; avoid nephrotoxins and hypotension 2. Hypertension; metoprolol 12.5 mg twice daily, losartan 25 mg daily 5. Hyperlipidemia; Lipitor 40 mg p.o. nightly; fenofibrate 54 mg daily 6. Diabetes mellitus type 2/diabetic peripheral neuropathy; Lantus 21 units SQ nightly; Accu-Cheks before every meal and at bedtime with insulin sliding scale 7. History of Hodgkin's lymphoma; status post radiation; patient completed treatment in April 2023 DVT prophylaxis; SCDs/subcu heparin CODE STATUS; full code The impression and plan of care has been dictated by Norma Puentes Nurse Practitioner as directed. Dr. Fabiano MD I have performed a history and physical examination and medical decision making of this patient, discussed the same with the dictator, and agree with the dictators assessment and plan as written, documented as a scribe. Based on total visit time, I have performed more than 50% of this visit. Objective - Vital Signs Vital signs: Vital Signs Temp 97.7 F 07/29/24 20:00 Pulse 93 07/29/24 20:54 Resp 16 07/29/24 20:00 BP 120/70 07/29/24 20:00 Pulse Ox 97 07/29/24 20:00 FiO2 21 07/29/24 07:48 Intake & Output 07/29/24 07/29/24 07/30/24 06:59 18:59 06:59 Intake Total 600 Output Total 850 300 Balance -850 600 -300 Weight 95 kg Intake: Oral 600 Output: Urine 850 300 Other: Voiding Method External Catheter External Catheter External Catheter # Voids 0 # Bowel Movements 0 - Labs CBC & Chem 7: 07/28/24 06:49 07/29/24 07:34 Labs: Abnormal Lab Results - Last 24 Hours (Table) 07/29/24 07/29/24 07/29/24 Range/Units 06:54 07:34 11:37 BUN 46 H (9-20) mg/dL Creatinine 1.48 H (0.66-1.25) mg/dL Glucose 132 H (74-99) mg/dL POC Glucose (mg/dL) 147 H 260 H (70-110) mg/dL 07/29/24 07/29/24 Range/Units 16:42 20:03 BUN (9-20) mg/dL Creatinine (0.66-1.25) mg/dL Glucose (74-99) mg/dL POC Glucose (mg/dL) 343 H 419 H (70-110) mg/dL Assessment and Plan Time with Patient: Less than 30
[2024-07-30 06:28] LABS: Glucose,Whole Blood 292 mg/dL (70-110)
[2024-07-30] MEDS: FUROSEMIDE 40 MG TAB PO SCH (08:37)
[2024-07-30] MEDS: FUROSEMIDE 10 MG/ML 4 ML VIAL IV STA (08:44)
[2024-07-30 10:17] LABS: Anisocytosis Slight; Basophils % (A) 0 %; Eosinophils # (A) 0.2 k/uL (0-0.7); Eosinophils % (A) 3 %; HCT 35.2 % (39.0-53.0); HGB 10.8 gm/dL (13.0-17.5); Hypochromasia Marked; Lymphocytes # (A) 0.7 k/uL (1.0-4.8); Lymphocytes % (A) 8 %; MCH 27.6 pg (25.0-35.0); MCHC 30.8 g/dL (31.0-37.0); MCV 89.5 fL (80.0-100.0); Mean Platelet Volume 7.7; Monocytes # (A) 0.6 k/uL (0-1.0); Monocytes % (A) 7 %; Neutrophils % (A) 80 %; Platelet Count 275 k/uL (150-450); Poikilocytosis Slight; RBC 3.93 m/uL (4.30-5.90); RDW 17.8 % (11.5-15.5); WBC 8.7 k/uL (3.8-10.6)
[2024-07-30 10:39] LABS: African American GFR (CKD) 46 (>60 ml/min/1.73 sqM); Anion Gap 12 mmol/L; Blood Urea Nitrogen 50 mg/dL (9-20); Calcium 8.7 mg/dL (8.4-10.2); Carbon Dioxide 25 mmol/L (22-30); Chloride 101 mmol/L (98-107); Glucose 212 mg/dL (74-99); Non-African American GFR(CKD) 40 (>60 ml/min/1.73 sqM); Potassium 3.8 mmol/L (3.5-5.1); Sodium 138 mmol/L (137-145)
--- NOTE | 2024-07-30 11:00 | P.PN ---
Subjective Progress Note Date: 07/30/24 Principal diagnosis: Congestive heart failure. This is a 69-year-old male patient who resides in a [facility] and has a history of hypertension, hyperlipidemia, coronary artery disease, CVA with residual right sided weakness, congestive heart failure, diabetes mellitus previous tracheostomy and PEG tube placement with subsequent removal. He has a history of left cervical and preauricular adenopathy with incision overlying primary mass status post radiation treatments in 2022 he was brought into the emergency department yesterday after having complaints of shortness of breath and found to have pulse oximeter readings in the 80s. Chest x-ray revealed hypoventilatory changes. Cardiomegaly and diffuse interstitial and patchy opacities. White count 6.1. Hemoglobin 10.3. Platelets 206. Sodium 141. Potassium 4.2. Bicarb 21. BUN 37. Creatinine 1.51. Arterial blood gases on room air revealed a PaO2 of 61, pCO2 28 and a pH of 7.46. He is seen in the emergency department. Currently resting on a stretcher. Awake, drifts off easily, poor historian. He is maintaining O2 saturations in the 90s on 3 L/min per nasal cannula. He has been initiated on Lasix 40 mg IV every 12 hours. No intake or output recorded. He is on Symbicort, DuoNeb and elations, prednisone. Heparin for DVT prophylaxis. Seen today on 07/28/2024, patient is feeling better today compared to yesterday., On 3 L nasal cannula and O2 saturation is 100% blood pressure is 106/67 patient had a negative fluid balance of 2200 cc over the last 24 hours. Remains on Lasix responding well to diuresis. CBC is relatively normal electrolytes are normal BUN is 35 creatinine 1.49, Slightly improved compared to yesterday creatinine of 1.52 Progress note dated July 29, 2024. 69-year-old male seen today in room 352. The patient appears to be doing relatively well. He is not having any distress or difficulty. In fact, he is on room air. He is not receiving any IV fluids. His chest x-ray today, is improved. Laboratory data was a sodium 138, potassium 4.5, chlorides 105, CO2 22, anion gap 11, BUN 46, creatinine 1.48. Glucose is 260. Calcium is 8.8. Progress note dated July 30, 2024. 69-year-old male seen again in room 352. The patient is sitting in bed, alert, oriented, in no acute distress. The patient has no specific complaints. He is on room air. He is not receiving any IV fluids. White count is 8.7, hemoglobin 10.8, hematocrit 35.2, platelet count is normal. Sodium 138, potassium 3.8, chlorides 101, CO2 25, BUN 50, and creatinine 1.70. Glucose is 212. Calcium is 8.7. Objective - Vital Signs Vital signs: Vital Signs Temp 97.9 F 07/30/24 08:43 Pulse 94 07/30/24 09:03 Resp 14 07/30/24 08:43 BP 114/67 07/30/24 08:43 Pulse Ox 96 07/30/24 08:53 FiO2 21 07/29/24 07:48 Intake & Output 07/29/24 07/30/24 07/30/24 18:59 06:59 18:59 Intake Total 600 240 Output Total 900 200 Balance 600 -900 40 Weight 52 kg Intake: Oral 600 240 Output: Urine 900 200 Other: Voiding Method External Catheter External Catheter External Catheter # Voids 0 # Bowel Movements 0 - Exam No acute distress, oriented 3. Currently on room air. No respiratory distress. HEENT examination is grossly unremarkable. Mucous membranes are moist. No oral lesions. Neck supple. Full range of motion. No adenopathy thyromegaly or neck vein distention. Cardiovascular examination reveals regular rhythm rate. S1-S2 normal. No S3 or S4. No discernible murmur noted. Lungs reveal mostly clear breath sounds. Minimal basilar crackles. No wheezes or rhonchi. Abdomen soft bowel sounds are heard. No masses or tenderness. Extremities are intact. No cyanosis or clubbing. Trace edema. Skin is without rash or lesion. Neurologic examination is brief but nonfocal. - Labs CBC & Chem 7: 07/30/24 09:33 07/30/24 09:33 Labs: Abnormal Lab Results - Last 24 Hours (Table) 07/29/24 07/29/24 07/29/24 Range/Units 11:37 16:42 20:03 RBC (4.30-5.90) m/uL Hgb (13.0-17.5) gm/dL Hct (39.0-53.0) % MCHC (31.0-37.0) g/dL RDW (11.5-15.5) % Lymphocytes # (1.0-4.8) k/uL BUN (9-20) mg/dL Creatinine (0.66-1.25) mg/dL Glucose (74-99) mg/dL POC Glucose (mg/dL) 260 H 343 H 419 H (70-110) mg/dL 07/30/24 07/30/24 07/30/24 Range/Units 06:26 09:33 09:33 RBC 3.93 L (4.30-5.90) m/uL Hgb 10.8 L (13.0-17.5) gm/dL Hct 35.2 L (39.0-53.0) % MCHC 30.8 L (31.0-37.0) g/dL RDW 17.8 H (11.5-15.5) % Lymphocytes # 0.7 L (1.0-4.8) k/uL BUN 50 H (9-20) mg/dL Creatinine 1.70 H (0.66-1.25) mg/dL Glucose 212 H (74-99) mg/dL POC Glucose (mg/dL) 292 H (70-110) mg/dL Assessment and Plan Assessment: Acute hypoxemic respiratory failure secondary to acute on chronic systolic congestive heart failure. Acute exacerbation of COPD. Acute kidney injury. History of left cervical and preauricular adenopathy. History of ventilator dependent respiratory failure, with previous tracheostomy/PEG tube insertion, and subsequent removal. History of CVA with right-sided hemiplegia. History of diabetes mellitus. General medical debility. Plan: Plan dated July 29, 2024. The patient is sitting up in bed. He is not on any oxygen. He is not receiving any IV fluids. His chest x-ray today, compared to his admission chest x-ray shows improvement. Labs, x-rays, and all medications are reviewed. We will continue to follow make recommendations where appropriate. The patient continues on diuretics. Labs are being followed. We continue bronchodilators. The patient is to have strict I's and O's. We will continue to follow make recommendations along the way. Prognosis is guarded. Plan dated July 30, 2024. The patient appears to be doing relatively well. The patient is sitting up in b ed, with no distress. The patient is on room air. Is not receiving any IV fluids. Labs, x-rays, and all medications are reviewed. We will continue to follow the patient, and make recommendations where appropriate. Chest x-ray is clearly improved. Patient is to have strict I's and O's. Prognosis is guarded. Time with Patient: Less than 30
[2024-07-30 11:31] VITALS: BMI 16.0
--- NOTE | 2024-07-30 11:33 | P.PN ---
Subjective HISTORY OF PRESENT ILLNESS: This is a 69-year-old male who follows in the office with Dr. Matthews. Patient is admitted to the hospital due to congestive heart failure. Patient examined this morning at the bedside. Patient currently denies any chest pain or pressure. He denies any shortness of breath. He remains on IV Lasix. Creatinine remained stable today at 1.48. He is currently on room air with oxygen saturations greater than 92%. Blood pressure stable. Telemetry reveals sinus mechanism. 07/30/2024 Patient examined this morning at the bedside. Patient currently denies chest pain or pressure. He denies shortness of breath although he appears to be more dyspneic today during examination and compared to yesterday. He remains on room air with oxygen saturations greater than 92%. Telemetry reveals sinus mechanism. Echocardiogram completed revealing ejection fraction 40% with no obvious regional wall motion abnormalities, severe aortic stenosis with peak gradient 91 mmHg and mean gradient 16 mmHg, mild tricuspid regurgitation. Patient also with gross hematuria this morning which is new per nursing. PHYSICAL EXAM: VITAL SIGNS: Reviewed. GENERAL: Well-developed in no acute distress. NECK: Supple. No JVD or thyromegaly LUNGS: Respirations even and unlabored. Lungs essentially clear to auscultation bilaterally. HEART: Regular rate and rhythm. S1 heard. Unable to auscultate S2. Significant systolic murmur noted. EXTREMITIES: Normal range of motion. No clubbing or cyanosis. Peripheral pulses intact. No lower extremity edema ASSESSMENT: Acute on chronic heart failure with mildly reduced EF, 40% Severe aortic stenosis New onset cardiomyopathy, 40 to 45%, ischemic versus nonischemic, previously with preserved LV systolic function Acute kidney injury Coronary artery disease with previous PCI, most recently RCA and 08/2022 Hypertension Hyperlipidemia Diabetes History of COPD History of CVA Gross hematuria PLAN: Patient with new hematuria this morning. Further eval per internal medicine. Give 1 dose of IV Lasix this morning 40 mg then continue with oral diuretics. Monitor kidney function Continue additional cardiac medications Patient symptoms are likely secondary to severe aortic stenosis. Recommend outpatient LUCA and heart cath as part of valve replacement workup. Patient to follow-up postdischarge with Dr. Matthews Nurse practitioner note has been reviewed by physician. Signing provider agrees with the documented findings, assessment, and plan of care documented by TRACTOR DRIVER TEAMSTER as a scribe. Objective - Vital Signs Vital signs: Vital Signs Temp 97.9 F 10/29/24 08:43 Pulse 94 07/30/24 09:03 Resp 14 07/30/24 08:43 BP 114/67 07/30/24 08:43 Pulse Ox 96 07/30/24 08:53 FiO2 21 07/29/24 07:48 Intake & Output 07/29/24 07/30/24 07/30/24 18:59 06:59 18:59 Intake Total 600 240 Output Total 900 200 Balance 600 -900 40 Weight 52 kg Intake: Oral 600 240 Output: Urine 900 200 Other: Voiding Method External Catheter External Catheter External Catheter # Voids 0 # Bowel Movements 0 - Labs CBC & Chem 7: 07/30/24 09:33 07/30/24 09:33 Labs: Abnormal Lab Results - Last 24 Hours (Table) 07/29/24 07/29/24 07/29/24 Range/Units 11:37 16:42 20:03 RBC (4.30-5.90) m/uL Hgb (13.0-17.5) gm/dL Hct (39.0-53.0) % MCHC (31.0-37.0) g/dL RDW (11.5-15.5) % Lymphocytes # (1.0-4.8) k/uL BUN (9-20) mg/dL Creatinine (0.66-1.25) mg/dL Glucose (74-99) mg/dL POC Glucose (mg/dL) 260 H 343 H 419 H (70-110) mg/dL 07/30/24 07/30/24 07/30/24 Range/Units 06:26 09:33 09:33 RBC 3.93 L (4.30-5.90) m/uL Hgb 10.8 L (13.0-17.5) gm/dL Hct 35.2 L (39.0-53.0) % MCHC 30.8 L (31.0-37.0) g/dL RDW 17.8 H (11.5-15.5) % Lymphocytes # 0.7 L (1.0-4.8) k/uL BUN 50 H (9-20) mg/dL Creatinine 1.70 H (0.66-1.25) mg/dL Glucose 212 H (74-99) mg/dL POC Glucose (mg/dL) 292 H (70-110) mg/dL
[2024-07-30 11:37] LABS: Glucose,Whole Blood 229 mg/dL (70-110)
[2024-07-30] MEDS: INSULIN DETEMIR (LEVEMIR) 100 UNIT/ML SYR SQ SCH ×2 (11:59→21:09)
[2024-07-30 12:20] LABS: Appearance,Urine Cloudy (Clear); Bacteria,Urine Many /hpf; Bilirubin,Urine Negative (Negative); Blood,Urine Large (Negative); Budding Yeast,Urine Occasional /hpf; Color,Urine Light Yellow; Glucose,Urine (UA) Negative (Negative); Ketones,Urine Negative (Negative); Leukocyte Esterase,Urine Large (Negative); Mucus,Urine Rare /hpf; Nitrite,Urine Negative (Negative); Protein,Urine 1+ (Negative); RBC,Urine 113 /hpf (0-5); Specific Gravity,Urine 1.009 (1.001-1.035); Squamous Epithelial Cell,Urine 1 /hpf (0-4); Urobilinogen,Urine <2.0 mg/dL (<2.0); WBC,Urine 74 /hpf (0-5)
--- NOTE | 2024-07-30 14:17 | P.PN ---
Subjective Progress Note Date: 07/30/24 69-year-old male, history of hypertension, hyperlipidemia, diabetes mellitus, CAD/AK status post cardiac catheterization with stent placement, history of asthma/COPD, who presents to the emergency department from a senior living because he stated he was short of breath and they were getting pulse ox in the 80s. Patient himself says he does not feel short of breath however patient is only alert and oriented x 2. Patient does appear to have some respiratory distress. Patient does have a history of COPD. Again patient himself has no complaints but his history is not all that accurate at this point. No family or caregivers with the patient Blood work reveals WBC of 5.7, hemoglobin of 9.3 and platelet count of 206, sodium 139, potassium 4.2, BUNs/creatinine of 36/1.52 and blood glucose of 185, BNP is elevated at 5770, troponin at 0.025, lactic acid of 1.1, ABG reveals pH of 7.46, pCO2 of 28, pO2 of 61 and O2 saturation 91% EKG shows a sinus rhythm at 90 bpm NM interval is 217 QRS is 112 QT interval 368 QTc is 424. Patient's EKG shows no ST segment ovation or depression. Patient does have some flipped T waves in leads I and aVL as well as precordial leads V5 and V6 Chest x-ray is consistent with acute pulmonary edema 07/28/2024 Patient is seen and evaluated in room with family at bedside; patient sisters concern about patient sleeping too much; reports patient was placed on Xanax 3 times daily at the senior living; requesting it to be changed to as needed Vital signs are reviewed; patient is currently on 3 L nasal cannula and O2 saturation is 100% blood pressure is 106/67 --CBC is relatively normal electrolytes are normal BUN is 35 creatinine 1.49, Slightly improved compared to yesterday creatinine of 1.52 Remains on Lasix responding well to diuresis. -- Cardiology recommending to continue current dose with further recommendations once echocardiogram is completed; last echocardiogram revealed an EF of 40 to 45% 07/29/2024 Patient is evaluated in follow up today on the medical floor. He continues on IV lasix 40 mg Q12, still having some shortness of breath. He is hoping to return to [facility] soon. Chest xray shows improving vascular congestion. BUN 46, creatinine 1.48. Echocardiogram shows EF 40-45%. 07/30/2024 Evaluated today resting in bed . Has been transition to oral Lasix daily. Reports of jeanna-colored urine today/hematuria by nursing. Urinalysis was com pleted which does show a large blood as well as large leukocyte Estrace and many bacteria. Hemoglobin stable at 10.8. BUN of 50 creatinine of 1.70. Review of Systems Constitutional: Denied any fatigue denied any fever. Cardio vascular: denied any chest pain, palpitations Gastrointestinal: denied any nausea, vomiting, diarrhea Pulmonary: Denied any shortness of breath cough Neurologic denied any new focal deficits All inpatient medications were reviewed and appropriate changes in these medic ations as dictated in the interval history and assessment and plan. PHYSICAL EXAMINATION: GENERAL: The patient is alert and oriented x3, not in any acute distress. Well developed, well nourished. HEENT: Pupils are round and equally reacting to light. EOMI. No scleral icterus. No conjunctival pallor. Normocephalic, atraumatic. No pharyngeal erythema. No thyromegaly. CARDIOVASCULAR: S1 and S2 present. No murmurs, rubs, or gallops. PULMONARY: Chest is clear to auscultation, no wheezing or crackles. ABDOMEN: Soft, nontender, nondistended, normoactive bowel sounds. No palpable organomegaly. MUSCULOSKELETAL: No joint swelling or deformity. EXTREMITIES: No cyanosis, clubbing, or pedal edema. NEUROLOGICAL: Gross neurological examination did not reveal any focal deficits. SKIN: No rashes. Assessment and Plan 1. Acute pulmonary edema -BNP is elevated above 5000; chest x-ray reveals cardiomegaly and diffuse interstitial and patchy opacities correlating with CHF with interstitial pulm onary edema -Patient has been transitioned to oral lasix. -Patient has history of cardiomyopathy with a EF of 45% previously -Repeat echocoardiogram shows EF 40-45%. 2. Acute respiratory distress/failure; history of asthma; possible mild exacerbation -Patient has been placed on DuoNeb nebulizer treatments 4 times daily and as needed; will add oral prednisone 40 mg daily x 5 days; resume home inhaler therapy -Consult pulmonary for further recommendations 3. Acute renal injury; creatinine elevated at 1.52; baseline creatinine of 1.2; could be related to renal vascular congestion associated with CHF -We will monitor strict BELEM's, daily weights, renal function electrolytes; avoid nephrotoxins and hypotension 2. Hypertension; metoprolol 12.5 mg twice daily, losartan 25 mg daily 5. Hyperlipidemia; Lipitor 40 mg p.o. nightly; fenofibrate 54 mg daily 6. Diabetes mellitus type 2/diabetic peripheral neuropathy; Lantus 21 units SQ nightly; Accu-Cheks before every meal and at bedtime with insulin sliding scale 7. History of Hodgkin's lymphoma; status post radiation; patient completed treatment in April 2023 -Hematuria under investigation monitor BMP, check bladder scan and urinalysis DVT prophylaxis; SCDs/subcu heparin CODE STATUS; full code The impression and plan of care has been dictated by Norma Puentes Nurse Practitioner as directed. Dr. Fabiano MD I have performed a history and physical examination and medical decision making of this patient, discussed the same with the dictator, and agree with the dictators assessment and plan as written, documented as a scribe. Based on total visit time, I have performed more than 50% of this visit. Objective - Vital Signs Vital signs: Vital Signs Temp 97.9 F 07/30/24 08:43 Pulse 94 07/30/24 09:03 Resp 14 07/30/24 08:43 BP 114/67 07/30/24 08:43 Pulse Ox 96 07/30/24 08:53 FiO2 21 07/29/24 07:48 Intake & Output 07/29/24 07/30/24 07/30/24 18:59 06:59 18:59 Intake Total 600 240 Output Total 900 200 Balance 600 -900 40 Weight 52 kg Intake: Oral 600 240 Output: Urine 900 200 Other: Voiding Method External Catheter External Catheter # Voids 0 # Bowel Movements 0 - Labs CBC & Chem 7: 07/30/24 09:33 07/30/24 09:33 Labs: Abnormal Lab Results - Last 24 Hours (Table) 07/29/24 07/29/24 07/29/24 Range/Units 11:37 16:42 20:03 POC Glucose (mg/dL) 260 H 343 H 419 H (70-110) mg/dL 07/30/24 Range/Units 06:26 POC Glucose (mg/dL) 292 H (70-110) mg/dL Assessment and Plan Time with Patient: Less than 30
[2024-07-30 16:52] LABS: Glucose,Whole Blood 424 mg/dL (70-110)
[2024-07-30 16:52] LABS: Glucose,Whole Blood 509 mg/dL (70-110)
[2024-07-30] MEDS: INSULIN ASPART (NovoLOG) 100 UNIT/ML VIAL SQ ONE ×2 (17:29→20:59)
[2024-07-30 19:58] LABS: Glucose,Whole Blood 413 mg/dL (70-110)
[2024-07-31 03:55] VITALS: RESP 16
[2024-07-31 05:57] LABS: Glucose,Whole Blood 174 mg/dL (70-110)
[2024-07-31] MEDS: INSULIN ASPART (NovoLOG) 100 UNIT/ML VIAL SQ SCH (09:38)
[2024-07-31 09:40] VITALS: TEMP 97.9
[2024-07-31 10:30] LABS: African American GFR (CKD) 61 (>60 ml/min/1.73 sqM); Anion Gap 12 mmol/L; Blood Urea Nitrogen 43 mg/dL (9-20); Calcium 8.8 mg/dL (8.4-10.2); Carbon Dioxide 23 mmol/L (22-30); Chloride 105 mmol/L (98-107); Glucose 180 mg/dL (74-99); Non-African American GFR(CKD) 53 (>60 ml/min/1.73 sqM); Sodium 140 mmol/L (137-145)
--- NOTE | 2024-07-31 10:40 | P.PN ---
Subjective HISTORY OF PRESENT ILLNESS: This is a 69-year-old male who follows in the office with Dr. Matthews. Patient is admitted to the hospital due to congestive heart failure. Patient examined this morning at the bedside. Patient currently denies any chest pain or pressure. He denies any shortness of breath. He remains on IV Lasix. Creatinine remained stable today at 1.48. He is currently on room air with oxygen saturations greater than 92%. Blood pressure stable. Telemetry reveals sinus mechanism. 07/30/2024 Patient examined this morning at the bedside. Patient currently denies chest pain or pressure. He denies shortness of breath although he appears to be more dyspneic today during examination and compared to yesterday. He remains on room air with oxygen saturations greater than 92%. Telemetry reveals sinus mechanism. Echocardiogram completed revealing ejection fraction 40% with no obvious regional wall motion abnormalities, severe aortic stenosis with peak gradient 91 mmHg and mean gradient 16 mmHg, mild tricuspid regurgitation. Patient also with gross hematuria this morning which is new per nursing. 07/31/2024 Patient examined this morning at the bedside. Patient currently denies chest pain or pressure. He denies shortness of breath this morning. However he does report having occasional shortness of breath with exertion. Vital signs are stable. Creatinine today improved at 1.35. PHYSICAL EXAM: VITAL SIGNS: Reviewed. GENERAL: Well-developed in no acute distress. NECK: Supple. No JVD or thyromegaly LUNGS: Respirations even and unlabored. Lungs essentially clear to auscultation bilaterally. HEART: Regular rate and rhythm. S1 heard. Unable to auscultate S2. Significant systolic murmur noted. EXTREMITIES: Normal range of motion. No clubbing or cyanosis. Peripheral pulses intact. No lower extremity edema ASSESSMENT: Acute on chronic heart failure with mildly reduced EF, 40% Severe aortic stenosis New onset cardiomyopathy, 40 to 45%, ischemic versus nonischemic, previously with preserved LV systolic function Acute kidney injury Coronary artery disease with previous PCI, most recently RCA and 08/2022 Hypertension Hyperlipidemia Diabetes History of COPD History of CVA Gross hematuria, resolved PLAN: Continue current cardiac medications Continue oral Lasix 40 mg in the morning. Add Lasix 20 mg in the afternoon Monitor kidney function Patient symptoms are likely secondary to severe aortic stenosis. Recommend outpatient LUCA and heart cath as part of valve replacement workup. Patient is stable for discharge to [facility] today from a cardiac standpoint Patient to follow-up postdischarge with Dr. Matthews Nurse practitioner note has been reviewed by physician. Signing provider agrees with the documented findings, assessment, and plan of care documented by ENERGY PROJECT ENGINEER as a scribe. Objective - Vital Signs Vital signs: Vital Signs Temp 97.9 F 07/31/24 08:00 Pulse 86 07/31/24 08:24 Resp 16 07/31/24 08:00 BP 102/54 07/31/24 08:00 Pulse Ox 95 07/31/24 08:16 FiO2 21 07/29/24 07:48 Intake & Output 07/30/24 07/31/24 07/31/24 18:59 06:59 18:59 Intake Total 1800 237 180 Output Total 600 Balance 1200 237 180 Weight 52 kg 88.5 kg Intake: Oral 1800 237 180 Output: Urine 600 Male - External 400 Other: Voiding Method External Catheter External Catheter # Voids 2 - Labs CBC & Chem 7: 07/30/24 09:33 07/31/24 09:33 Labs: Abnormal Lab Results - Last 24 Hours (Table) 07/30/24 07/30/24 07/30/24 Range/Units 09:33 11:35 11:42 BUN 50 H (9-20) mg/dL Creatinine 1.70 H (0.66-1.25) mg/dL Glucose 212 H (74-99) mg/dL POC Glucose (mg/dL) 229 H (70-110) mg/dL Urine Protein 1+ H (Negative) Urine Blood Large H (Negative) Ur Leukocyte Esterase Large H (Negative) Urine RBC 113 H (0-5) /hpf Urine WBC 74 H (0-5) /hpf Urine Bacteria Many H (None) /hpf Urine Mucus Rare H (None) /hpf Urine Yeast (Budding) Occasional H (None) /hpf 07/30/24 07/30/24 07/30/24 Range/Units 16:49 16:50 19:53 BUN (9-20) mg/dL Creatinine (0.66-1.25) mg/dL Glucose (74-99) mg/dL POC Glucose (mg/dL) 509 H* 424 H 413 H (70-110) mg/dL Urine Protein (Negative) Urine Blood (Negative) Ur Leukocyte Esterase (Negative) Urine RBC (0-5) /hpf Urine WBC (0-5) /hpf Urine Bacteria (None) /hpf Urine Mucus (None) /hpf Urine Yeast (Budding) (None) /hpf 07/31/24 07/31/24 Range/Units 05:56 09:33 BUN 43 H (9-20) mg/dL Creatinine 1.35 H (0.66-1.25) mg/dL Glucose 180 H (74-99) mg/dL POC Glucose (mg/dL) 174 H (70-110) mg/dL Urine Protein (Negative) Urine Blood (Negative) Ur Leukocyte Esterase (Negative) Urine RBC (0-5) /hpf Urine WBC (0-5) /hpf Urine Bacteria (None) /hpf Urine Mucus (None) /hpf Urine Yeast (Budding) (None) /hpf
[2024-07-31 11:09] LABS: Glucose,Whole Blood 181 mg/dL (70-110)
--- NOTE | 2024-07-31 11:23 | P.PN ---
Subjective Progress Note Date: 07/31/24 Principal diagnosis: Congestive heart failure. This is a 69-year-old male patient who [facility] and has a history of hypertension, hyperlipidemia, coronary artery disease, CVA with residual right sided weakness, congestive heart failure, diabetes mellitus previous tracheostomy and PEG tube placement with subsequent removal. He has a history of left cervical and preauricular adenopathy with incision overlying primary mass status post radiation treatments in 2022 he was brought into the emergency department yesterday after having complaints of shortness of breath and found to have pulse oximeter readings in the 80s. Chest x-ray revealed hypoventilatory changes. Cardiomegaly and diffuse interstitial and patchy opacities. White count 6.1. Hemoglobin 10.3. Platelets 206. Sodium 141. Potassium 4.2. Bicarb 21. BUN 37. Creatinine 1.51. Arterial blood gases on room air revealed a PaO2 of 61, pCO2 28 and a pH of 7.46. He is seen in the emergency department. Currently resting on a stretcher. Awake, drifts off easily, poor historian. He is maintaining O2 saturations in the 90s on 3 L/min per nasal cannula. He has been initiated on Lasix 40 mg IV every 12 hours. No intake or output recorded. He is on Symbicort, DuoNeb and elations, prednisone. Heparin for DVT prophylaxis. Seen today on 07/28/2024, patient is feeling better today compared to yesterday., On 3 L nasal cannula and O2 saturation is 100% blood pressure is 106/67 patient had a negative fluid balance of 2200 cc over the last 24 hours. Remains on Lasix responding well to diuresis. CBC is relatively normal electrolytes are normal BUN is 35 creatinine 1.49, Slightly improved compared to yesterday creatinine of 1.52 Progress note dated July 29, 2024. 69-year-old male seen today in room 352. The patient appears to be doing relatively well. He is not having any distress or difficulty. In fact, he is on room air. He is not receiving any IV fluids. His chest x-ray today, is improved. Laboratory data was a sodium 138, potassium 4.5, chlorides 105, CO2 22, anion gap 11, BUN 46, creatinine 1.48. Glucose is 260. Calcium is 8.8. Progress note dated July 30, 2024. 69-year-old male seen again in room 352. The patient is sitting in bed, alert, oriented, in no acute distress. The patient has no specific complaints. He is on room air. He is not receiving any IV fluids. White count is 8.7, hemoglobin 10.8, hematocrit 35.2, platelet count is normal. Sodium 138, potassium 3.8, chlorides 101, CO2 25, BUN 50, and creatinine 1.70. Glucose is 212. Calcium is 8.7. Progress note dated July 31, 2024. 69-year-old male seen today again in room 352. Currently, he is laying in bed, comfortable, awake and alert. He is on room air. No IV fluids. The patient has no specific complaints today. He is hoping to be discharged relatively soon. Laboratory data includes a sodium 140, potassium 4, chlorides 105, CO2 23, anion gap 12, BUN 43, and creatinine 1.35. Glucose is 181. Calcium is 8.8. Objective - Vital Signs Vital signs: Vital Signs Temp 97.9 F 07/31/24 08:00 Pulse 86 07/31/24 08:24 Resp 16 07/31/24 08:00 BP 102/54 07/31/24 08:00 Pulse Ox 95 07/31/24 08:16 FiO2 21 07/29/24 07:48 Intake & Output 07/30/24 07/31/24 07/31/24 18:59 06:59 18:59 Intake Total 1800 237 180 Output Total 600 Balance 1200 237 180 Weight 52 kg 88.5 kg Intake: Oral 1800 237 180 Output: Urine 600 Male - External 400 Other: Voiding Method External Catheter External Catheter # Voids 2 - Exam No acute distress, oriented 3. Currently on room air. No respiratory distress. HEENT examination is grossly unremarkable. Mucous membranes are moist. No oral lesions. Neck supple. Full range of motion. No adenopathy thyromegaly or neck vein distention. Cardiovascular examination reveals regular rhythm rate. S1-S2 normal. No S3 or S4. A soft systolic murmur is noted. Lungs reveal mostly clear breath sounds. Minimal basilar crackles. No wheezes or rhonchi. Abdomen soft bowel sounds are heard. No masses or tenderness. Extremities are intact. No cyanosis or clubbing. Trace edema. Skin is without rash or lesion. Neurologic examination is brief but nonfocal. - Labs CBC & Chem 7: 07/30/24 09:33 07/31/24 09:33 Labs: Abnormal Lab Results - Last 24 Hours (Table) 07/30/24 07/30/24 07/30/24 Range/Units 11:35 11:42 16:49 BUN (9-20) mg/dL Creatinine (0.66-1.25) mg/dL Glucose (74-99) mg/dL POC Glucose (mg/dL) 229 H 509 H* (70-110) mg/dL Urine Protein 1+ H (Negative) Urine Blood Large H (Negative) Ur Leukocyte Esterase Large H (Negative) Urine RBC 113 H (0-5) /hpf Urine WBC 74 H (0-5) /hpf Urine Bacteria Many H (None) /hpf Urine Mucus Rare H (None) /hpf Urine Yeast (Budding) Occasional H (None) /hpf 07/30/24 07/30/24 07/31/24 Range/Units 16:50 19:53 05:56 BUN (9-20) mg/dL Creatinine (0.66-1.25) mg/dL Glucose (74-99) mg/dL POC Glucose (mg/dL) 424 H 413 H 174 H (70-110) mg/dL Urine Protein (Negative) Urine Blood (Negative) Ur Leukocyte Esterase (Negative) Urine RBC (0-5) /hpf Urine WBC (0-5) /hpf Urine Bacteria (None) /hpf Urine Mucus (None) /hpf Urine Yeast (Budding) (None) /hpf 07/31/24 07/31/24 Range/Units 09:33 11:08 BUN 43 H (9-20) mg/dL Creatinine 1.35 H (0.66-1.25) mg/dL Glucose 180 H (74-99) mg/dL POC Glucose (mg/dL) 181 H (70-110) mg/dL Urine Protein (Negative) Urine Blood (Negative) Ur Leukocyte Esterase (Negative) Urine RBC (0-5) /hpf Urine WBC (0-5) /hpf Urine Bacteria (None) /hpf Urine Mucus (None) /hpf Urine Yeast (Budding) (None) /hpf Assessment and Plan Assessment: Acute hypoxemic respiratory failure secondary to acute on chronic systolic congestive heart failure. Severe aortic stenosis. Acute exacerbation of COPD. Acute kidney injury. History of left cervical and preauricular adenopathy. History of ventilator dependent respiratory failure, with previous tracheostomy/PEG tube insertion, and subsequent removal. History of CVA with right-sided hemiplegia. History of diabetes mellitus. General medical debility. Plan: Plan dated July 29, 2024. The patient is sitting up in bed. He is not on any oxygen. He is not receiving any IV fluids. His chest x-ray today, compared to his admission chest x-ray shows improvement. Labs, x-rays, and all medications are reviewed. We will continue to follow make recommendations where appropriate. The patient contin ues on diuretics. Labs are being followed. We continue bronchodilators. The patient is to have strict I's and O's. We will continue to follow make recommendations along the way. Prognosis is guarded. Plan dated July 30, 2024. The patient appears to be doing relatively well. The patient is sitting up in bed, with no distress. The patient is on room air. Is not receiving any IV fluids. Labs, x-rays, and all medications are reviewed. We will continue to follow the patient, and make recommendations where appropriate. Chest x-ray is clearly improved. Patient is to have strict I's and O's. Prognosis is guarded. Plan dated July 31, 2024. The patient appears to be doing relatively well. The patient wants to know about when he might have the surgery for his aortic valve stenosis. I told him that was up to his primary care physician and cardiology. From the pulmonary standpoint, the patient is doing reasonably well. He is very stable. He is on room air. No IV fluids. Labs, x-rays, medications are reviewed. We will continue to follow, until discharge. Time with Patient: Less than 30
--- NOTE | 2024-07-31 12:10 | P.DS ---
Providers Date of admission: 07/26/24 17:21 Attending physician: Nima Riggs Consults: 07/27/24 09:29 Consult Physician Routine Consulting Provider: Luis E Lundy Consult Reason/Comments: CHF Do you want consulting provider notified?: Yes 07/27/24 09:31 Consult Physician Routine Consulting Provider: Ady Bradshaw Consult Reason/Comments: pulmonary edema Do you want consulting provider notified?: Yes Primary care physician: Nima Riggs [place] [facility] Course: Final Diagnosis -Acute pulmonary edema -Acute on chronic heart failure with mildly reduced EF, 40% -Severe aortic stenosis -New onset cardiomyopathy, 40 to 45%, ischemic versus nonischemic, previously with preserved LV systolic function -Severe aortic stenosis -Coronary artery disease with previous PCI, most recently RCA and 08/2022 -Acute respiratory distress/failure; history of asthma; possible mild exacerbation -Acute renal injury -Hypertension -Hyperlipidemia; Lipitor 40 mg p.o. nightly; fenofibrate 54 mg daily -Diabetes mellitus type 2/diabetic peripheral neuropathy -History of Hodgkin's lymphoma; status post radiation; patient completed treatment in April 2023 -History of COPD -History of CVA Discharge Disposition Patient is stable for discharge. Return to [facility]. Patient will follow-up with his PCP Dr. Nima Riggs in 1 to 2 days recommending to repeat blood work in 2 to 3 days. Patient should also have a repeat urinalysis done within the next week to monitor for any further evidence of hematuria. Cardiology recommending close outpatient follow up with Dr. Matthews and recommending outpatient LUCA, Cardiac catheterization as part of work up for his severe aortic stenosis. Hospital Course This is a 69-year-old male, history of hypertension, hyperlipidemia, diabetes mellitus, CAD/[place] status post cardiac catheterization with stent placement, history of asthma/COPD, who presents to the emergency department from a correction because he stated he was short of breath and they were getting pulse ox in the 80s. Patient himself says he does not feel short of breath however patient is only alert and oriented x 2. Patient does appear to have some respiratory distress. Patient does have a history of COPD. He is from [facility]. Blood work reveals WBC of 5.7, hemoglobin of 9.3 and platelet count of 206, sodium 139, potassium 4.2, BUNs/creatinine of 36/1.52 and blood glucose of 185, BNP is elev ated at 5770, troponin at 0.025, lactic acid of 1.1, ABG reveals pH of 7.46, pCO2 of 28, pO2 of 61 and O2 saturation 91%. Chest x-ray is consistent with acute pulmonary edema. He was started on IV lasix and admitted to the hospital with cardiac consultation. Echocardiogram shows EF 40-45%. with severe aortic stenosis. He has responded well to diuresis and transitioned to oral lasix with 40 mg daily and 20 mg in the afternoon. Cardiology felt patient would benefit from further work up for the aortic stenosis as he remains dyspneic with minimal activity. Concerned that he was having bloody urine which has resolved at this time it is light jeanna in color and improving. His creatinine is improving as well BUN of 43 and creatinine 1.35. Medically he is considered stable for discharge would recommend to repeat a urinalysis outpatient to monitor for any further evidence of hematuria. Patient Please see medication reconciliation for a list of current medications. Thank you for allowing us to participate in the care of this patient. The impression and plan of care has been dictated by Norma Puentes, Nurse Practitioner as directed. Dr. Fabiano MD I have performed a history and physical examination and medical decision making of this patient, discussed the same with the dictator, and agree with the dictators assessment and plan as written, documented as a scribe. Based on total visit time, I have performed more than 50% of this visit. Patient Condition at Discharge: Stable Plan - Discharge Summary New Discharge Prescriptions: New Furosemide [Lasix] 40 mg PO DAILY tab Furosemide [Lasix] 20 mg PO DAILY@1400 tab Budesonide-Formot 160-4.5 Mcg [Symbicort 160-4.5 Mcg Inhaler] 2 puff INHALATION RT-BID each Midodrine [ProAmatine] 10 mg PO AC-TID tab Continue Atorvastatin [Lipitor] 40 mg PO HS Fenofibrate 54 mg PO DAILY@1200 Ipratropium-Albuterol Nebulize [Duoneb 0.5 mg-3 mg/3 ml Soln] 3 ml INHALATION RT-QID 30 Days #120 each Aspirin 81 mg PO DAILY@1200 bisacodyL 10 mg RECTAL DAILY PRN PRN Reason: Constipation INSULIN ASPART (NovoLOG) [NovoLOG (formulary)] 5 unit SQ HS@2130 INSULIN ASPART (NovoLOG) [NovoLOG (formulary)] 6 unit SQ DAILY@1200 Insulin Glargine [Lantus Vial] 21 unit SQ HS Metoprolol Tartrate [Lopressor] 12.5 mg PO BID@1200,2100 Na Phos,M-B/Na Phos,Di-Ba [Fleet Adult] 133 ml RECTAL DAILY PRN PRN Reason: Constipation Pantoprazole [Protonix] 40 mg PO DAILY@1200 Losartan [Cozaar] 25 mg PO DAILY@1200 Clopidogrel [Plavix] 75 mg PO DAILY@1200 Multivitamins, Thera [Multivitamin (formulary)] 1 tab PO DAILY@1700 Fluticasone Propion/Salmeterol [[place]ixela 500-50 Inhub] 1 puff INHALATION RT-BID@1200,1700 DULoxetine HCL [Cymbalta] 60 mg PO DAILY@1200 Acetaminophen Tab [Tylenol] 650 mg PO Q4H PRN PRN Reason: Pain Or Fever > 100.5 Docusate [Colace] 100 mg PO BID@1200,1700 INSULIN ASPART (NovoLOG) [NovoLOG (formulary)] See Protocol SQ ACHS INSULIN ASPART (NovoLOG) [NovoLOG (formulary)] 8 unit SQ DAILY@1700 INSULIN ASPART (NovoLOG) [NovoLOG (formulary)] 7 unit SQ DAILY@0800 Ipratropium-Albuterol Nebulize [Duoneb 0.5 mg-3 mg/3 ml Soln] 3 ml INHALATION RT-Q4H PRN PRN Reason: Shortness Of Breath Loperamide HCl [Imodium A-D] 2 - 4 mg PO DIRECTED PRN MDD 4 tablets PRN Reason: Diarrhea Magnesium Hydroxide [Milk of Magnesia Concentrate] 7,200 mg PO Q2D PRN PRN Reason: Constipation Potassium Chloride ER [K-Dur 20] 20 meq PO DAILY@1200 Tamsulosin [Flomax] 0.4 mg PO DAILY@1200 Changed HYDROcodone/APAP 5-325MG [[place] 5-325] 1 tab PO Q6HR PRN #8 tab PRN Reason: Pain ALPRAZolam [Xanax] 0.25 mg PO TID@0800,1400,2200 #6 tab Discontinued Furosemide [Lasix] 20 mg PO DAILY@1700 Discharge Medication List Atorvastatin [Lipitor] 40 mg PO HS 08/13/22 [History] Clopidogrel [Plavix] 75 mg PO DAILY@1200 10/01/22 [History] Losartan [Cozaar] 25 mg PO DAILY@1200 10/01/22 [History] Multivitamins, Thera [Multivitamin (formulary)] 1 tab PO DAILY@1700 12/09/22 [Hi story] Fenofibrate 54 mg PO DAILY@1200 12/18/22 [History] DULoxetine HCL [Cymbalta] 60 mg PO DAILY@1200 01/09/23 [History] Fluticasone Propion/Salmeterol [[place] 500-50 Inhub] 1 puff INHALATION RT-BID @1200,1700 01/09/23 [History] Ipratropium-Albuterol Nebulize [Duoneb 0.5 mg-3 mg/3 ml Soln] 3 ml INHALATION RT-QID 30 Days #120 each 01/25/23 [Rx] Acetaminophen Tab [Tylenol] 650 mg PO Q4H PRN 07/26/24 [History] Aspirin 81 mg PO DAILY@1200 07/26/24 [History] Docusate [Colace] 100 mg PO BID@1200,1700 07/26/24 [History] INSULIN ASPART (NovoLOG) [NovoLOG (formulary)] 5 unit SQ HS@2130 07/26/24 [Histo ry] INSULIN ASPART (NovoLOG) [NovoLOG (formulary)] 6 unit SQ DAILY@1200 07/26/24 [History] INSULIN ASPART (NovoLOG) [NovoLOG (formulary)] 7 unit SQ DAILY@0800 07/26/24 [History] INSULIN ASPART (NovoLOG) [NovoLOG (formulary)] 8 unit SQ DAILY@1700 07/26/24 [History] INSULIN ASPART (NovoLOG) [NovoLOG (formulary)] See Protocol SQ ACHS 07/26/24 [History] Insulin Glargine [Lantus Vial] 21 unit SQ HS 07/26/24 [History] Ipratropium-Albuterol Nebulize [Duoneb 0.5 mg-3 mg/3 ml Soln] 3 ml INHALATION RT-Q4H PRN 07/26/24 [History] Loperamide HCl [Imodium A-D] 2 - 4 mg PO DIRECTED PRN MDD 4 tablets 07/26/24 [History] Magnesium Hydroxide [Milk of Magnesia Concentrate] 7,200 mg PO Q2D PRN 07/26/24 [History] Metoprolol Tartrate [Lopressor] 12.5 mg PO BID@1200,2100 07/26/24 [History] Na Phos,M-B/Na Phos,Di-Ba [Fleet Adult] 133 ml RECTAL DAILY PRN 07/26/24 [History] Pantoprazole [Protonix] 40 mg PO DAILY@1200 07/26/24 [History] Potassium Chloride ER [K-Dur 20] 20 meq PO DAILY@1200 07/26/24 [History] Tamsulosin [Flomax] 0.4 mg PO DAILY@1200 07/26/24 [History] bisacodyL 10 mg RECTAL DAILY PRN 07/26/24 [History] ALPRAZolam [Xanax] 0.25 mg PO TID@0800,1400,2200 #6 tab 07/31/24 [Rx] Budesonide-Formot 160-4.5 Mcg [Symbicort 160-4.5 Mcg Inhaler] 2 puff INHALATION RT-BID each 07/31/24 [Rx] Furosemide [Lasix] 20 mg PO DAILY@1400 tab 07/31/24 [Rx] Furosemide [Lasix] 40 mg PO DAILY tab 07/31/24 [Rx] HYDROcodone/APAP 5-325MG [[place] 5-325] 1 tab PO Q6HR PRN #8 tab 07/31/24 [Rx] Midodrine [ProAmatine] 10 mg PO AC-TID tab 07/31/24 [Rx] Follow up Appointment(s)/Referral(s): Manuel Matthews DO [STAFF PHYSICIAN] - 1 Week Nima Riggs MD [Primary Care Provider] - 1-2 days Ab Marquis MD [STAFF PHYSICIAN] - As Needed (Cardiothoracic surgery) Ambulatory/Diagnostic Orders: Basic Metabolic Panel [LAB.AMB] Location: None Selected Complete Blood Count w/diff [LAB.AMB] Time Frame: 3 Days, Location: None Selected Activity/Diet/Wound Care/Special Instructions: LUCA and cardiac catheterization as outpatient Discharge Disposition: TRANSFER TO SNF/ECF
[2024-07-31] MEDS: FUROSEMIDE 20 MG TAB PO SCH (12:35)
[2024-07-31 16:15] VITALS: BP 118/61; PULSE 82
== END 2024-07-31 16:18 | DRG 291 ==
LOC: EC 14:46 → 3SCARD 17:20 → INTOOBSV 17:20 → OBSVTOIN 17:21 → 3SCARD 19:40
PROVIDERS: ADMIT Internal Medicine Geriatric Medicine; ATTEND Internal Medicine Geriatric Medicine
DX: I11.0 Hypertensive heart disease with heart failure (principal); I50.23 Acute on chronic systolic (congestive) heart failure; J96.01 Acute respiratory failure with hypoxia; J45.901 Unspecified asthma with (acute) exacerbation; N17.9 Acute kidney failure, unspecified; I69.351 Hemiplegia and hemiparesis following cerebral infarction affecting right dominant side; J44.1 Chronic obstructive pulmonary disease with (acute) exacerbation; I35.0 Nonrheumatic aortic (valve) stenosis; I44.0 Atrioventricular block, first degree; I25.10 Atherosclerotic heart disease of native coronary artery without angina pectoris; E11.42 Type 2 diabetes mellitus with diabetic polyneuropathy; I25.5 Ischemic cardiomyopathy; E78.5 Hyperlipidemia, unspecified; F32.A Depression, unspecified; R31.0 Gross hematuria; I25.2 Old myocardial infarction; Z79.02 Long term (current) use of antithrombotics/antiplatelets; Z79.4 Long term (current) use of insulin; Z79.82 Long term (current) use of aspirin; Z79.899 Other long term (current) drug therapy; Z85.71 Personal history of Hodgkin lymphoma; Z92.3 Personal history of irradiation; Z95.5 Presence of coronary angioplasty implant and graft
CPT/HCPCS: 36415; 36600; 71045; 71046; 80048; 80053; 81001; 82805; 83605; 83735; 83880; 84484; 85025; 85379; 85610; 85730; 93005; 93306; 94640; 94760; 96374; 99285

== ENCOUNTER 2024-08-09 08:40 | Emergency (ER) | payer MEDICARE, OTHER ==
[2024-08-09] MEDS: ONDANSETRON 4 MG/2 ML VIAL IVP STA (08:47)
--- NOTE | 2024-08-09 08:55 | ED ---
General Adult HPI - General Chief complaint: Shortness of Breath Stated complaint: RAMOS Time Seen by Provider: 08/09/24 08:45 Source: patient, EMS, RN notes reviewed, old records reviewed Mode of arrival: EMS Limitations: no limitations - History of Present Illness Initial comments: This is a 69-year-old male who presents to the emergency department complaining of difficulty breathing. Patient states he woke up about 3 or 4 in the morning and felt nauseous and vomited and then he was having a hard time breathing and when the staff family rounded on him he was oxygenating at 83% so they put him on a nonrebreather with 6 L. EMS put him on a CPAP and he was up to 95% oxygenation. Patient did vomit on arrival but after given Zofran he has no more nausea. Patient denies any chest pain Patient denies palpitations. Patient states he was recently in the hospital. Patient has a history of CHF and COPD. - Related Data Home Medications Medication Instructions Recorded Confirmed Atorvastatin [Lipitor] 40 mg PO HS 08/13/22 08/09/24 Clopidogrel [Plavix] 75 mg PO DAILY@1200 10/01/22 08/09/24 Losartan [Cozaar] 25 mg PO DAILY@1200 10/01/22 08/09/24 Multivitamins, Thera [Multivitamin 1 tab PO DAILY@1700 12/09/22 08/09/24 (formulary)] Fenofibrate 54 mg PO DAILY@1200 12/18/22 08/09/24 DULoxetine HCL [Cymbalta] 60 mg PO DAILY@1200 01/09/23 08/09/24 Fluticasone Propion/Salmeterol 1 puff INHALATION RT-BID@1200,1700 01/09/23 08/09/24 [[place]ixela 500-50 Inhub] Acetaminophen Tab [Tylenol] 650 mg PO Q4H PRN 07/26/24 08/09/24 Aspirin 81 mg PO DAILY@1200 07/26/24 08/09/24 Docusate [Colace] 100 mg PO BID@1200,1700 07/26/24 08/09/24 INSULIN ASPART (NovoLOG) [NovoLOG 5 unit SQ HS@2130 07/26/24 08/09/24 (formulary)] INSULIN ASPART (NovoLOG) [NovoLOG 6 unit SQ DAILY@1200 07/26/24 08/09/24 (formulary)] INSULIN ASPART (NovoLOG) [NovoLOG 7 unit SQ DAILY@0800 07/26/24 08/09/24 (formulary)] INSULIN ASPART (NovoLOG) [NovoLOG 8 unit SQ DAILY@1700 07/26/24 08/09/24 (formulary)] INSULIN ASPART (NovoLOG) [NovoLOG See Protocol SQ ACHS 07/26/24 08/09/24 (formulary)] Insulin Glargine [Lantus Vial] 21 unit SQ HS 07/26/24 08/09/24 Ipratropium-Albuterol Nebulize 3 ml INHALATION RT-Q4H PRN 07/26/24 08/09/24 [Duoneb 0.5 mg-3 mg/3 ml Soln] Loperamide HCl [Imodium A-D] 4 mg PO DIRECTED PRN 07/26/24 08/09/24 Magnesium Hydroxide [Milk of 7,200 mg PO Q2D PRN 07/26/24 08/09/24 Magnesia Concentrate] Metoprolol Tartrate [Lopressor] 12.5 mg PO BID@1200,2100 07/26/24 08/09/24 Na Phos,M-B/Na Phos,Di-Ba [Fleet 133 ml RECTAL DAILY PRN 07/26/24 08/09/24 Adult] Pantoprazole [Protonix] 40 mg PO DAILY@1200 07/26/24 08/09/24 Tamsulosin [Flomax] 0.4 mg PO DAILY@1200 07/26/24 08/09/24 bisacodyL 10 mg RECTAL DAILY PRN 07/26/24 08/09/24 ALPRAZolam [Xanax] 0.25 mg PO HS 08/09/24 08/09/24 ALPRAZolam [Xanax] 0.25 mg PO Q8H PRN 08/09/24 08/09/24 Budesonide-Formot 160-4.5 Mcg 2 puff INHALATION RT-BID 08/09/24 08/09/24 [Symbicort 160-4.5 Mcg Inhaler] Ipratropium-Albuterol Nebulize 3 ml INHALATION RT-Q6H 08/09/24 08/09/24 [Duoneb 0.5 mg-3 mg/3 ml Soln] Midodrine HCl [ProAmatine] 10 mg PO TID@0800,1200,1700 08/09/24 08/09/24 Potassium Chloride [Klor-Con M10] 20 meq PO DAILY@1200 08/09/24 08/09/24 Previous Rx's Medication Instructions Recorded Furosemide [Lasix] 20 mg PO DAILY@1400 tab 07/31/24 Furosemide [Lasix] 40 mg PO DAILY tab 07/31/24 HYDROcodone/APAP 5-325MG [[place] 1 tab PO Q6HR PRN #8 tab 07/31/24 5-325] Allergies Allergy/AdvReac Type Severity Reaction Status Date / Time Penicillins Allergy Unknown Verified 08/09/24 10:30 Review of Systems ROS Statement: Those systems with pertinent positive or pertinent negative responses have been documented in the HPI. ROS Other: All systems not noted in ROS Statement are negative. Past Medical History Past Medical History: Asthma, Coronary Artery Disease (CAD), Heart Failure, CVA/TIA, Diabetes Mellitus, Hypertension, Myocardial Infarction ([place]), Osteoarthritis (OA) Additional Past Medical History / Comment(s): HX OF BACK SURGERY WITH BACK PAIN, DIABETIC NEUROPATHY, HEART MURMUR., KERATOCONUS., STOOL TEST POSITIVE ., ECZEMA Last Myocardial Infarction Date:: 08/2022 History of Any Multi-Drug Resistant Organisms: C-DIFF Date of last positivie culture/infection: 12/19/22 MDRO Source:: stool Past Surgical History: Back Surgery, Heart Catheterization With Stent Additional Past Surgical History / Comment(s): BACK SURGERY WITH DISC REMOVED AND FUSION., VASECTOMY, LEFT GREAT TOE. peg tube, tracheostomy. Past Anesthesia/Blood Transfusion Reactions: No Reported Reaction Date of Last Stent Placement:: 08/2022 Past Psychological History: Depression Smoking Status: Never smoker Past Alcohol Use History: None Reported Past Drug Use History: None Reported - Past Family History Mother Family Medical History: No Reported History Additional Family Medical History / Comment(s): of old age Father Additional Family Medical History / Comment(s): of old age General Exam - General Exam Comments Initial Comments: GENERAL: Patient is well-developed and well-nourished. Patient is nontoxic and well- hydrated and is in mild distress. ENT: Neck is soft and supple. No significant lymphadenopathy is noted. Oropharynx is clear. Moist mucous membranes. Neck has full range of motion without eliciting any pain. EYES: The sclera were anicteric and conjunctiva were pink and moist. Extraocular movements were intact and pupils were equal round and reactive to light. Eyel ids were unremarkable. PULMONARY: Patient is tachypneic and has crackles in the bases CARDIOVASCULAR: Patient is tachycardic at 120 beats a minute ABDOMEN: Soft and nontender with normal bowel sounds. No palpable organomegaly was noted. There is no palpable pulsatile mass. SKIN: Skin is clear with no lesions or rashes and otherwise unremarkable. NEUROLOGIC: Patient is alert and oriented x3. Cranial nerves II through XII are grossly intact. Motor and sensory are also intact. Normal speech, volume and content. Symmetrical smile. MUSCULOSKELETAL: Normal extremities with adequate strength and full range of motion. No lower extremity swelling or edema. No calf tenderness. LYMPHATICS: No significant lymphadenopathy is noted PSYCHIATRIC: Normal psychiatric evaluation. Limitations: no limitations Course Vital Signs 08/09/24 08/09/24 08/09/24 08:45 08:47 08:55 Temperature Pulse Rate 118 H Respiratory 36 H 40 H Rate Blood Pressure 128/108 O2 Sat by Pulse 86 L Oximetry Fraction of 100 Inspired Oxygen (FIO2) 08/09/24 08/09/24 08/09/24 09:00 09:19 09:20 Temperature 98.5 F Pulse Rate 133 H 124 H Respiratory 40 H Rate Blood Pressure 138/101 O2 Sat by Pulse 100 Oximetry Fraction of Inspired Oxygen (FIO2) 08/09/24 08/09/24 08/09/24 09:32 10:10 10:35 Temperature Pulse Rate 130 H 120 H Respiratory 36 H 30 H Rate Blood Pressure 125/64 80/65 94/58 O2 Sat by Pulse 96 100 Oximetry Fraction of Inspired Oxygen (FIO2) 08/09/24 08/09/24 11:11 16:00 Temperature Pulse Rate 123 H 0 L Respiratory 40 H 0 L Rate Blood Pressure 149/92 0/0 O2 Sat by Pulse 90 L 0 L Oximetry Fraction of Inspired Oxygen (FIO2) Medical Decision Making - Medical Decision Making EKG is interpreted by myself. EKG shows shows sinus tachycardia at 126 bpm QRS is 109 QT interval 309 QTc is 383. Patient's EKG shows no ST segment elevation or depression. Was pt. sent in by a medical professional or institution (Dr., PA, [facility], urgent care, hospital, or prison...) When possible be specific @ -Patient was sent in by the prison Did you speak to anyone other than the patient for history (EMS, parent, family, police, friend...)? What history was obtained from this source @ -No Did you review nursing and triage notes (agree or disagree)? Why? @ -I reviewed and agree with nursing and triage notes Were old charts reviewed (outside hosp., previous admission, EMS record, old EKG, old radiological studies, urgent care reports/EKG's, prison records)? Report findings @ -No old charts were reviewed Differential Diagnosis? @ -Differential Dyspnea: Coronary syndrome, arrhythmia, tamponade, asthma, COPD, pulmonary embolism, pneumonia, pneumothorax, pulmonary effusion, anaphylaxis, diabetic ketoacidosis, flailed chest, pulmonary contusion, diaphragmatic rupture, anemia, neuromuscular, this is not meant to be an all-inclusive list. EKG interpreted by me (3pts min.). @ -As above X-rays interpreted by me (1pt min.). @ -Chest x-ray shows right-sided consolidation consistent with pneumonia CT interpreted by me (1pt min.). @ -None done U/S interpreted by me (1pt. min.). @ -None done What testing was considered but not performed or refused? (CT, X-rays, U/S, labs)? Why? @ -None What meds were considered but not given or refused? Why? @ -None Did you discuss the management of the patient with other professionals (professionals i.e. JENN Hua, [facility], lab, RT, psych nurse, social security benefits interviewer, nailhead operator, teacher, product safety officer, case investigator)? Give summary @ [facility]. I spoke with Dr. Arellano and he will accept the patient into the ICU. Was smoking cessation discussed for >3mins.? @ -No Was critical care preformed (if so, how long)? @ -35 minutes Were there social determinants of health that impacted care today? How? (Home lessness, low income, unemployed, alcoholism, drug addiction, transportation, low edu. Level, literacy, decrease access to med. care, snf, rehab)? @ -No Was there de-escalation of care discussed even if they declined (Discuss DNR or withdrawal of care, Hospice)? DNR status @ -No What co-morbidities impacted this encounter? (DM, HTN, Smoking, COPD, CAD, Cancer, CVA, ARF, Chemo, Hep., AIDS, mental health diagnosis, sleep apnea, morbid obesity)? @ -None Was patient admitted / discharged? Hospital course, mention meds given and route, prescriptions, significant lab abnormalities, going to OR and other pertinent info. @ -Patient is diagnosed with pneumonia he is tachypneic and having significant dyspnea but he does not want to be intubated. I asked the patient on 3 separate occasions and he refused to be intubated. Patient was initially put on BiPAP but he was not tolerating this we put him on a Ventimask. Patient was started on antibiotics. Patient was given a small fluid bolus of 500 cc. Patient will 1 point and he was in PEA and CPR was performed for approximately 10 minutes. Patient was asked by myself on 4 different occasions where he was alert and oriented x 4 and he did not want to be intubated. Patient stated did not mind doing some CPR and so that is what we did. We ran the code for approximately 10 minutes 3 epis 1 bicarb and eventually pronounced at 1129. Undiagnosed new problem with uncertain prognosis? @ -No Drug Therapy requiring intensive monitoring for toxicity (Heparin, Nitro, Insulin, Cardizem)? @ -No Were any procedures done? @ -No Diagnosis/symptom? @ -Aspiration pneumonia Acute, or Chronic, or Acute on Chronic? @ -Acute Uncomplicated (without systemic symptoms) or Complicated (systemic symptoms)? @ -Complicated Side effects of treatment? @ -No Exacerbation, Progression, or Severe Exacerbation? @ -No Poses a threat to life or bodily function? How? (Chest pain, [place], [place], pneumonia, PE, COPD, DKA, ARF, appy, cholecystitis, CVA, Diverticulitis, Homicidal, Suicidal, threat to staff... and all critical care pts) @ -Yes this can lead to sepsis and endorgan dysfunction Diagnosis/symptom? @ -Cardiopulmonary arrest Acute, or Chronic, or Acute on Chronic? @ -Acute Uncomplicated (without systemic symptoms) or Complicated (systemic symptoms)? @ -Comp Side effects of treatment? @ -[none] Exacerbation, Progression, or Severe Exacerbation] @ -[no] Poses a threat to life or bodily function? @ -Yes this led to the patient's - Lab Data Result diagrams: 08/09/24 09:00 08/09/24 09:00 Lab Results 08/09/24 08/09/24 08/09/24 Range/Units 09:00 09:00 09:00 WBC 15.0 H (3.8-10.6) k/uL RBC 4.45 (4.30-5.90) m/uL Hgb 12.1 L (13.0-17.5) gm/dL Hct 39.3 (39.0-53.0) % MCV 88.4 (80.0-100.0) fL MCH 27.3 (25.0-35.0) pg MCHC 30.8 L (31.0-37.0) g/dL RDW 17.1 H (11.5-15.5) % Plt Count 313 (150-450) k/uL MPV 7.3 Neutrophils % 90 % Lymphocytes % 2 % Monocytes % 5 % Eosinophils % 2 % Basophils % 0 % Neutrophils # 13.4 H (1.3-7.7) k/uL Lymphocytes # 0.3 L (1.0-4.8) k/uL Monocytes # 0.7 (0-1.0) k/uL Eosinophils # 0.4 (0-0.7) k/uL Basophils # 0.0 (0-0.2) k/uL Hypochromasia Marked Poikilocytosis Slight Anisocytosis Slight PT 10.8 (10.0-12.5) sec INR 1.0 (<1.2) APTT 23.6 (22.0-30.0) sec VBG pH (7.31-7.41) VBG pCO2 (37-51) mmHg VBG HCO3 (24-28) mmol/L Sodium 141 (137-145) mmol/L Potassium 4.4 (3.5-5.1) mmol/L Chloride 104 (98-107) mmol/L Carbon Dioxide 25 (22-30) mmol/L Anion Gap 12 mmol/L BUN 33 H (9-20) mg/dL Creatinine 1.21 (0.66-1.25) mg/dL Est GFR (CKD-EPI)AfAm 70 (>60 ml/min/1.73 sqM) Est GFR (CKD-EPI)NonAf 61 (>60 ml/min/1.73 sqM) Glucose 199 H (74-99) mg/dL Lactic Ac Sepsis Rflx Plasma Lactic Acid Eren (0.7-2.0) mmol/L Calcium 9.4 (8.4-10.2) mg/dL Magnesium 1.9 (1.6-2.3) mg/dL Total Bilirubin 0.8 (0.2-1.3) mg/dL AST 34 (17-59) U/L ALT 23 (4-49) U/L Alkaline Phosphatase 80 (38-126) U/L Troponin I (0.000-0.034) ng/mL NT-Pro-B Natriuret Pep 3720 pg/mL Total Protein 7.4 (6.3-8.2) g/dL Albumin 4.6 (3.5-5.0) g/dL Influenza Type A (PCR) (Not Detectd) Influenza Type B (PCR) (Not Detectd) RSV (PCR) (Not Detectd) SARS-CoV-2 (PCR) (Not Detectd) 08/09/24 08/09/24 08/09/24 Range/Units 09:00 09:00 09:00 WBC (3.8-10.6) k/uL RBC (4.30-5.90) m/uL Hgb (13.0-17.5) gm/dL Hct (39.0-53.0) % MCV (80.0-100.0) fL MCH (25.0-35.0) pg MCHC (31.0-37.0) g/dL RDW (11.5-15.5) % Plt Count (150-450) k/uL MPV Neutrophils % % Lymphocytes % % Monocytes % % Eosinophils % % Basophils % % Neutrophils # (1.3-7.7) k/uL Lymphocytes # (1.0-4.8) k/uL Monocytes # (0-1.0) k/uL Eosinophils # (0-0.7) k/uL Basophils # (0-0.2) k/uL Hypochromasia Poikilocytosis Anisocytosis PT (10.0-12.5) sec INR (<1.2) APTT (22.0-30.0) sec VBG pH 7.28 L (7.31-7.41) VBG pCO2 56 H (37-51) mmHg VBG HCO3 26 (24-28) mmol/L Sodium (137-145) mmol/L Potassium (3.5-5.1) mmol/L Chloride (98-107) mmol/L Carbon Dioxide (22-30) mmol/L Anion Gap mmol/L BUN (9-20) mg/dL Creatinine (0.66-1.25) mg/dL Est GFR (CKD-EPI)AfAm (>60 ml/min/1.73 sqM) Est GFR (CKD-EPI)NonAf (>60 ml/min/1.73 sqM) Glucose (74-99) mg/dL Lactic Ac Sepsis Rflx Plasma Lactic Acid Eren 2.1 H* (0.7-2.0) mmol/L Calcium (8.4-10.2) mg/dL Magnesium (1.6-2.3) mg/dL Total Bilirubin (0.2-1.3) mg/dL AST (17-59) U/L ALT (4-49) U/L Alkaline Phosphatase (38-126) U/L Troponin I 0.037 H* (0.000-0.034) ng/mL NT-Pro-B Natriuret Pep pg/mL Total Protein (6.3-8.2) g/dL Albumin (3.5-5.0) g/dL Influenza Type A (PCR) (Not Detectd) Influenza Type B (PCR) (Not Detectd) RSV (PCR) (Not Detectd) SARS-CoV-2 (PCR) (Not Detectd) 08/09/24 08/09/24 Range/Units 09:30 09:51 WBC (3.8-10.6) k/uL RBC (4.30-5.90) m/uL Hgb (13.0-17.5) gm/dL Hct (39.0-53.0) % MCV (80.0-100.0) fL MCH (25.0-35.0) pg MCHC (31.0-37.0) g/dL RDW (11.5-15.5) % Plt Count (150-450) k/uL MPV Neutrophils % % Lymphocytes % % Monocytes % % Eosinophils % % Basophils % % Neutrophils # (1.3-7.7) k/uL Lymphocytes # (1.0-4.8) k/uL Monocytes # (0-1.0) k/uL Eosinophils # (0-0.7) k/uL Basophils # (0-0.2) k/uL Hypochromasia Poikilocytosis Anisocytosis PT (10.0-12.5) sec INR (<1.2) APTT (22.0-30.0) sec VBG pH (7.31-7.41) VBG pCO2 (37-51) mmHg VBG HCO3 (24-28) mmol/L Sodium (137-145) mmol/L Potassium (3.5-5.1) mmol/L Chloride (98-107) mmol/L Carbon Dioxide (22-30) mmol/L Anion Gap mmol/L BUN (9-20) mg/dL Creatinine (0.66-1.25) mg/dL Est GFR (CKD-EPI)AfAm (>60 ml/min/1.73 sqM) Est GFR (CKD-EPI)NonAf (>60 ml/min/1.73 sqM) Glucose (74-99) mg/dL Lactic Ac Sepsis Rflx Y Plasma Lactic Acid Eren (0.7-2.0) mmol/L Calcium (8.4-10.2) mg/dL Magnesium (1.6-2.3) mg/dL Total Bilirubin (0.2-1.3) mg/dL AST (17-59) U/L ALT (4-49) U/L Alkaline Phosphatase (38-126) U/L Troponin I (0.000-0.034) ng/mL NT-Pro-B Natriuret Pep pg/mL Total Protein (6.3-8.2) g/dL Albumin (3.5-5.0) g/dL Influenza Type A (PCR) Not Detected (Not Detectd) Influenza Type B (PCR) Not Detected (Not Detectd) RSV (PCR) Not Detected (Not Detectd) SARS-CoV-2 (PCR) Not Detected (Not Detectd) Disposition Clinical Impression: Aspiration pneumonia, Elevated troponin, Cardiopulmonary arrest Disposition: Referrals: Nima Riggs MD [Primary Care Provider] - 1-2 days Time of Disposition: 10:58 Preliminary Cause of : Cardiopulmonary arrest - Out of Hospital Transfer - Req. Specs Out of Hospital Transfer - Requested Specifics: Other Emergency Center (Cardiopulmonary arrest)
--- NOTE | 2024-08-09 09:14 | XR ---
EXAMINATION TYPE: XR chest 1V portable DATE OF EXAM: 08/09/2024 9:08 AM COMPARISON: 07/21/2024 CLINICAL INDICATION: Male, 69 years old with history of Short of breath, TECHNIQUE: XR chest 1V portable view(s) obtained. FINDINGS: The heart size is normal. The pulmonary vasculature is normal. There is patchy consolidation right mid and lower lung field. Correlate for pneumonia. Some atelectat ic type changes or early pneumonia may be at the left base. IMPRESSION: 1. Large consolidation right lower lobe. Correlate for pneumonia. Follow-up recommended. [facility], , 08/09/2024 9:12 AM
[2024-08-09 09:16] LABS: Anisocytosis Slight; Basophils % (A) 0 %; Eosinophils # (A) 0.4 k/uL (0-0.7); Eosinophils % (A) 2 %; HCT 39.3 % (39.0-53.0); HGB 12.1 gm/dL (13.0-17.5); Hypochromasia Marked; Lymphocytes # (A) 0.3 k/uL (1.0-4.8); Lymphocytes % (A) 2 %; MCH 27.3 pg (25.0-35.0); MCHC 30.8 g/dL (31.0-37.0); MCV 88.4 fL (80.0-100.0); Mean Platelet Volume 7.3; Monocytes # (A) 0.7 k/uL (0-1.0); Monocytes % (A) 5 %; Neutrophils # (A) 13.4 k/uL (1.3-7.7); Neutrophils % (A) 90 %; Platelet Count 313 k/uL (150-450); Poikilocytosis Slight; RBC 4.45 m/uL (4.30-5.90); RDW 17.1 % (11.5-15.5); VBG PH 7.28 (7.31-7.41)
[2024-08-09] MEDS: LORazepam 2 MG/ML INJ IV STA (09:17)
[2024-08-09] MEDS: IPRATROPIUM-ALBUTEROL 3 ML NEB INHALATION PRN (09:19)
[2024-08-09 09:25] LABS: Partial Thromboplastin Time 23.6 sec (22.0-30.0); Prothrombin Time 10.8 sec (10.0-12.5)
[2024-08-09] MEDS: FUROSEMIDE 10 MG/ML 4 ML VIAL IV STA (09:26)
[2024-08-09] MEDS: AZITHROMYCIN 500 MG in SODIUM CHLORIDE 0.9% 250 ML IVPB STA (09:27)
[2024-08-09 09:28] LABS: ALT 23 U/L (4-49); AST 34 U/L (17-59); African American GFR (CKD) 70 (>60 ml/min/1.73 sqM); Albumin 4.6 g/dL (3.5-5.0); Alkaline Phosphatase 80 U/L (38-126); Anion Gap 12 mmol/L; Blood Urea Nitrogen 33 mg/dL (9-20); Calcium 9.4 mg/dL (8.4-10.2); Carbon Dioxide 25 mmol/L (22-30); Chloride 104 mmol/L (98-107); Glucose 199 mg/dL (74-99); Magnesium 1.9 mg/dL (1.6-2.3); Non-African American GFR(CKD) 61 (>60 ml/min/1.73 sqM); Potassium 4.4 mmol/L (3.5-5.1); Sodium 141 mmol/L (137-145); Total Bilirubin 0.8 mg/dL (0.2-1.3); Total Protein 7.4 g/dL (6.3-8.2)
[2024-08-09] MEDS: CEFEPIME 2 GM in SODIUM CHLORIDE 0.9% 100 ML IVPB STA (09:29)
[2024-08-09 09:36] LABS: NT-Pro-B-Type Natriuretic Pept 3720 pg/mL
[2024-08-09 10:11] VITALS: TEMP 98.5
[2024-08-09] MEDS ORDERED: NALOXONE 0.4 MG/ML 1 ML VIAL IV PRN (10:58)
[2024-08-09] MEDS ORDERED: DEXTROSE 5% IN WATER 50 ML BAG ONE (11:18)
[2024-08-09] MEDS ORDERED: AMIODARONE 50 MG/ML 3 ML VIAL IV ONE (11:18)
[2024-08-09] MEDS ORDERED: SODIUM BICARB 8.4% 50 ML SYR (1 MEQ/ML) ONE (11:18)
[2024-08-09] MEDS ORDERED: EPINEPHrine 10 ML SYRINGE (0.1 MG/ML) ONE (11:18)
--- NOTE | 2024-08-09 11:37 | XR ---
EXAMINATION TYPE: XR chest 1V portable DATE OF EXAM: 08/09/2024 11:24 AM COMPARISON: 08/09/2024 CLINICAL INDICATION: Male, 69 years old with history of cough,sob, TECHNIQUE: XR chest 1V portable view(s) obtained. FINDINGS: The heart size is large. The pulmonary vasculature is normal. Much infiltration of the right mid and lower lung field. Findings are worsening from comparison. Mild infiltrates developing at the left base. IMPRESSION: 1. Worsening bibasilar infiltrates greater on the right due to cardiomegaly [facility], , 08/09/2024 11:35 AM
[2024-08-09] MEDS ORDERED: IPRATROPIUM-ALBUTEROL 3 ML NEB INHALATION SCH (12:00)
[2024-08-09 16:46] VITALS: BP 0/0; PULSE 0; RESP 0
[2024-08-09] MEDS ORDERED: CEFEPIME 2 GM in SODIUM CHLORIDE 0.9% 100 ML IVPB SCH (21:00)
[2024-08-10] MEDS ORDERED: AZITHROMYCIN 500 MG in SODIUM CHLORIDE 0.9% 250 ML IVPB SCH (09:00)
[2024-08-10] MEDS ORDERED: PANTOPRAZOLE 40 MG/10 ML VIAL IV SCH (09:00)
== END 2024-08-09 16:00 | disposition expired ==
LOC: EC 08:40
DX: J69.0 Pneumonitis due to inhalation of food and vomit (principal); R79.89 Other specified abnormal findings of blood chemistry; I46.9 Cardiac arrest, cause unspecified; Z88.0 Allergy status to penicillin
CPT/HCPCS: 99291; 96365; 96367; 96375 ×3; 36415; 94660; 94640; 92950; 93005; 83880; 80053; 82803; 83605; 83735; 84484; 85025; 85610; 85730; 87040; 87636; 71045; J2060; J1940; J2405; J0456; J0692